=== PATIENT | female | born 1970 | race Caucasian/White ===

== ENCOUNTER 2017-01-01 07:35 | Emergency (ER) | payer OTHER ==
[2017-01-01 07:46] VITALS: BMI 28.3
[2017-01-01] MEDS ORDERED: FOLIC ACID INJECTION - 1 MG, THIAMINE HCL 100 MG, MULTIVIT INJECTION ADULT 10 ML in SOD... IVPB ONE (08:15)
[2017-01-01] MEDS ORDERED: ONDANSETRON 4 MG/2 ML VIAL IVPUSH ONE ×2 (08:15→12:40)
[2017-01-01] MEDS ORDERED: PANTOPRAZOLE SODIUM 40 MG in SODIUM CHLORIDE 100 ML IVPB ONE (08:16)
[2017-01-01] MEDS ORDERED: ONDANSETRON 4 MG/2 ML VIAL ONE ×2 (08:38→12:41)
[2017-01-01] MEDS ORDERED: PANTOPRAZOLE SODIUM 100 ML IVPB ONE (08:38)
[2017-01-01 08:51] LABS: BASOPHIL 0.5 % (0-2.0); EOSINOPHIL 0.4 % (0-4.5); MCH 32.8 pg (25.7-33.7); MEAN CELL VOLUME 96.6 fl (80-96); MEAN PLT VOLUME 10.1 fl (7.5-11.1); NEUTROPHILS 79.9 % (42.8-82.8); PLATELET COUNT 116 K/MM3 (134-434); RDW 14.7 % (11.6-15.6); WHITE BLOOD COUNT 8.8 K/mm3 (4.0-10.0)
[2017-01-01 09:10] LABS: ALK PHOS 133 U/L (45-117); ANION GAP 15 (8-16); BILIRUBIN,TOTAL 0.3 mg/dL (0.2-1.0); CALCIUM 8.6 mg/dL (8.5-10.1); CO2 22 mmol/L (21-32); CREATININE 0.6 mg/dL (0.55-1.02); GLUCOSE,RANDOM 172 mg/dL (74-106); MAGNESIUM 1.6 mg/dL (1.8-2.4); SGOT/AST 77 U/L (15-37); SGPT/ALT 49 U/L (12-78); TOT PROT 7.7 g/dl (6.4-8.2)
[2017-01-01] MEDS ORDERED: METHADONE HCL 10 MG TABLET PO ONE (09:52)
[2017-01-01] MEDS ORDERED: MAGNESIUM SULF 50% (8.12 MEQ/2 ML-1 GM VIAL) IVPB ONE (09:54)
[2017-01-01] MEDS ORDERED: KCL 10 MEQ IVPB 100 ML IVPB SCH (10:00)
[2017-01-01] MEDS ORDERED: METHADONE HCL 10 MG TABLET ONE (10:21)
[2017-01-01] MEDS ORDERED: METHADONE HCL 40 MG DISPERSABLE TABLET ONE (10:22)
[2017-01-01] MEDS ORDERED: KCL 10 MEQ IVPB 100 ML IVPB ONE (10:22)
[2017-01-01] MEDS ORDERED: MAGNESIUM SULF 50% (8.12 MEQ/2 ML-1 GM VIAL) ONE (10:22)
[2017-01-01 11:06] LABS: URINE APPEARANCE CLEAR; URINE BILIRUBIN NEGATIVE (NEGATIVE); URINE BLOOD NEGATIVE (NEGATIVE); URINE COLOR COLORLESS; URINE GLUCOSE (UA) 2+ (NEGATIVE); URINE KETONE NEGATIVE (NEGATIVE); URINE LEUK ESTERASE NEGATIVE (NEGATIVE); URINE NITRITE NEGATIVE (NEGATIVE); URINE PROTEIN NEGATIVE (NEGATIVE); URINE UROBILINOGEN NEGATIVE E.U./dl (0.2-1.0)
--- NOTE | 2017-01-01 11:13 | PDOC ---
History of Present Illness - General Chief Complaint: Nausea/Vomiting Stated Complaint: VOMITING Time Seen by Provider: 01/01/17 07:46 History Source: Patient Exam Limitations: No Limitations - History of Present Illness Travel History: No Initial Comments: 01/01/17 08:28 46-year-old female with history of IVDA, chronic alcohol use, hepatitis C, bipolar, and anemia presents with nausea and vomiting associated with epigastric burning since 10 PM last night. Patient states was drinking last evening at around 5 PM followed by the symptoms 5 hours after. Patient denies chest pain, shortness of breath, fever, diarrhea, dysuria, or headache. Patient states history of alcoholic gastritis but does not take any medication for the above. Patient states is currently on methadone secondary to IVDA which she has not taken today requesting pain meds and her methadone upon arrival. Past History - Past Medical History Allergies/Adverse Reactions: Allergies Allergy/AdvReac Type Severity Reaction Status Date / Time prochlorperazine maleate Allergy Severe DYSTONIA Verified 01/01/17 07:49 [From Compazine] metoclopramide HCl Allergy Verified 01/01/17 07:49 [From Reglan] prochlorperazine edisylate Allergy Verified 01/01/17 07:49 [From Compazine] Home Medications: Ambulatory Orders Emtricitabine/Tenofovir [Truvada -] 0 mg PO DAILY 09/13/16 Methadone [Dolophine -] 60 mg PO DAILY 09/13/16 Pantoprazole Sodium [Protonix] 40 mg PO DAILY #30 tablet. 09/14/16 Gabapentin [Neurontin] 600 mg PO TID #30 tablet 10/11/16 [place] Carbonate [Eskalith -] 0 mg PO DAILY #30 capsule 10/11/16 Quetiapine Fumarate [Seroquel -] 50 mg PO AM #30 tablet 10/11/16 Quetiapine Fumarate [Seroquel] 200 tab PO HS #30 tablet 10/11/16 Sertraline HCl [Zoloft] 100 mg PO HS #30 tablet 10/11/16 Ondansetron HCl [Zofran] 4 mg PO TID PRN #12 tablet 01/01/17 Pantoprazole Sodium [Protonix] 40 mg PO DAILY #30 tablet. 01/01/17 Anemia: Yes (H/O) Asthma: No Cardiac Disorders: No CVA: No COPD: No CHF: No Dementia: No Diabetes: No GI Disorders: No Disorders: No HTN: No Hypercholesterolemia: No Kidney Stones: No Liver Disease: Yes (HEP C) Psychiatric Problems: Yes (BIPOLAR) Suicide Attempt (Hx): No (DENIES) Seizures: No Thyroid Disease: No - Surgical History Abdominal Surgery: No Appendectomy: No Cardiac Surgery: No Cholecystectomy: No Lung Surgery: No Neurologic Surgery: No Orthopedic Surgery: No - Reproductive History (#): 13 Para: 11 PID: No - Psycho/Social/Smoking Cessation Hx Anxiety: No Suicidal Ideation: No Smoking History: Current every day smoker Have you smoked in the past 12 months: Yes Number of Cigarettes Smoked Daily: 3 Information on smoking cessation initiated: No 'Breaking Loose' booklet given: 12/29/15 Hx Alcohol Use: Yes Drug/Substance Use Hx: No (past) Substance Use Type: Alcohol, Heroin, Marijuana Hx Substance Use Treatment: Yes Patient Lives Alone: No Lives with/in: spouse/SO Abd/GI Specific PMHX - Complaint Specific PMHX Hepatitis: Yes (hepatitis c) Pancreatitis: Yes (03/2009) Review of Systems - Review of Systems Able to Perform ROS?: Yes Constitutional: Yes: Loss of Appetite HEENTM: No: Symptoms Reported Respiratory: No: Symptoms reported Cardiac (ROS): No: Symptoms Reported ABD/GI: Yes: Nausea, Poor Appetite, Poor Fluid Intake, Vomiting, Indigestion : No: Symptoms Reported Musculoskeletal: No: Symptoms Reported Integumentary: No: Symptoms Reported Neurological: No: Symptoms reported Endocrine: No: Symptoms Reported Hematologic/Lymphatic: No: Symptoms Reported *Physical Exam - Vital Signs Last Vital Signs Temp Pulse Resp BP Pulse Ox 98.7 F 98 H 22 150/99 100 01/01/17 07:43 01/01/17 07:43 01/01/17 07:43 01/01/17 09:40 01/01/17 07:43 - Physical Exam General Appearance: Yes: Appropriately Dressed, Intoxicated (mild). No: Apparent Distress HEENT: positive: EOMI, PARTH, TMs Normal, Pharynx Normal. negative: Pale Conjunctivae Neck: positive: Supple Respiratory/Chest: positive: Lungs Clear, Normal Breath Sounds. negative: Respiratory Distress, Accessory Muscle Use Cardiovascular: positive: Regular Rhythm, Regular Rate. negative: Murmur Gastrointestinal/Abdominal: positive: Soft, Tenderness (positive epigastric tenderness, no right upper quadrant tenderness) Musculoskeletal: negative: CVA Tenderness Extremity: positive: Normal Capillary Refill. negative: Pedal Edema Integumentary: positive: Normal Color, Dry, Warm Neurologic: positive: Motor Strength 5/5 (Ambulatory) ED Treatment Course - LABORATORY CBC & Chemistry Diagram: 01/01/17 08:33 01/01/17 08:33 - ADDITIONAL ORDERS Additional order review: Laboratory Results 01/01/17 01/01/17 08:33 08:33 Sodium 143 Potassium 3.3 L Chloride 106 Carbon Dioxide 22 Anion Gap 15 BUN 10 D Creatinine 0.6 Creat Clearance w eGFR > 60 Random Glucose 172 H D Calcium 8.6 Magnesium 1.6 L Total Bilirubin 0.3 AST 77 H D ALT 49 D Alkaline Phosphatase 133 H D Total Protein 7.7 Albumin 4.0 Serum , Qual Negative 01/01/17 08:33 RBC 4.05 MCV 96.6 H MCHC 34.0 RDW 14.7 MPV 10.1 Neutrophils % 79.9 D Lymphocytes % 15.2 D Monocytes % 4.0 Eosinophils % 0.4 Basophils % 0.5 - Medications Given in the ED: ED Medications Discontinued Medications Generic Name Dose Route Start Last Admin Trade Name Freq PRN Reason Stop Dose Admin Pantoprazole Sodium 40 mg/ 100 mls @ 200 mls/hr 01/01/17 08:16 01/01/17 08:40 Sodium Chloride IVPB 01/01/17 08:45 200 mls/hr ONCE ONE Administration Methadone HCl 60 mg 01/01/17 09:52 01/01/17 10:38 Dolophine - PO 01/01/17 09:53 Not Given ONCE ONE Ondansetron HCl 4 mg 01/01/17 08:15 01/01/17 08:43 Zofran Injection IVPUSH 01/01/17 08:16 4 mg ONCE ONE Administration Medical Decision Making - Medical Decision Making 01/01/17 08:38 Patient with long-standing history of alcohol and drug use currently on methadone presents with vomiting after drinking for 5 hours and epigastric pain. Patient on exam had epigastric tenderness on right upper quadrant tenderness. Patient appears dry and mildly intoxicated. Patient ordered for labs including magnesium, banana bag, Zofran and Protonix. 01/01/17 10:30 Laboratory Tests 01/01/17 01/01/17 01/01/17 08:33 08:33 08:33 WBC 8.8 D Hgb 13.3 D Hct 39.1 MCV 96.6 H Plt Count 116 L Neutrophils % 79.9 D Sodium 143 Potassium 3.3 L Chloride 106 Carbon Dioxide 22 Anion Gap 15 BUN 10 D Random Glucose 172 H D Calcium 8.6 Magnesium 1.6 L Total Bilirubin 0.3 AST 77 H D ALT 49 D Alkaline Phosphatase 133 H D Serum , Qual Negative Urine Glucose (UA) 2+ H Urine Ketones Negative Urine Nitrite Negative Ur Leukocyte Esterase Negative Patient ordered for 2 g of magnesium and 10 mg of KCl via IV. Patient requesting Dilaudid and her methadone. I have ordered her methadone but will not prescribe an opiate 01/01/17 12:41 Patient will be discharged home with Protonix and Zofran. Patient complaining mild nausea presently will give another Zofran IV and repeat vitals. *DC/Admit/Observation/Transfer Diagnosis at time of Disposition: Alcohol dependence with uncomplicated withdrawal Gastritis Qualifiers: Gastritis type: alcoholic Chronicity: acute Gastritis bleeding: without bleeding Qualified Code(s): K29.20 - Alcoholic gastritis without bleeding - Discharge Dispostion Disposition: HOME Condition at time of disposition: Good - Prescriptions Prescriptions: Pantoprazole Sodium [Protonix] 40 mg PO DAILY #30 tablet. Ondansetron HCl [Zofran] 4 mg PO TID PRN #12 tablet PRN Reason: Nausea And/Or Vomiting - Patient Instructions Printed Discharge Instructions: DI for Nausea -- Adult, DI for Vomiting -- Adult, DI for Alcohol Abuse, DI for Gastritis Additional Instructions: Please avoid alcohol use and take Zofran as needed for nausea. May also take Protonix as prescribed. Eat well-balanced meals throughout the day
[2017-01-01 15:08] VITALS: BP 137/90; PULSE 79; TEMP 98
[2017-01-02 16:17] LABS: TROPONIN I < 0.02 ng/ml (0.00-0.05)
== END 2017-01-01 15:10 | disposition home or self-care (01) ==
LOC: JER 07:35
PROC: 3E033GC Introduction of Other Therapeutic Substance into Peripheral Vein, Percutaneous Approach (ICD-10-PCS; principal; 2017-01-01)
PROC: 3E0337Z Introduction of Electrolytic and Water Balance Substance into Peripheral Vein, Percutaneous Approach (ICD-10-PCS; 2017-01-01)
PROC: 3E033GC Introduction of Other Therapeutic Substance into Peripheral Vein, Percutaneous Approach (ICD-10-PCS; 2017-01-01)
PROC: 3E033GC Introduction of Other Therapeutic Substance into Peripheral Vein, Percutaneous Approach (ICD-10-PCS; 2017-01-01)
DX: K29.20 Alcoholic gastritis without bleeding (principal); F10.230 Alcohol dependence with withdrawal, uncomplicated; B18.2 Chronic viral hepatitis C; F32.9 Major depressive disorder, single episode, unspecified; D64.9 Anemia, unspecified
CPT/HCPCS: 36415; 80053; 81003; 83735; 84484; 84703; 85025; 96365; 96366; 96367; 96374; 96375; 99283-25

== ENCOUNTER 2017-01-02 02:32 | Inpatient (IN) | payer OTHER ==
[2017-01-02 02:49] VITALS: BMI 24.5
--- NOTE | 2017-01-02 04:16 | PDOC ---
History of Present Illness - General Chief Complaint: Pain Stated Complaint: ABDOMINAL PAIN Time Seen by Provider: 01/02/17 02:34 History Source: Patient Exam Limitations: No Limitations - History of Present Illness Travel History: No Quality: reports: other (x1d) Abdominal Pain Onset Location: reports: epigastric Pain Radiation: reports: no radiation Past History - Travel Traveled outside of the country in the last 30 days: No Close contact w/someone who was outside of country & ill: No - Past Medical History Allergies/Adverse Reactions: Allergies Allergy/AdvReac Type Severity Reaction Status Date / Time prochlorperazine maleate Allergy Severe DYSTONIA Verified 01/01/17 07:49 [From Compazine] metoclopramide HCl Allergy Verified 01/01/17 07:49 [From Reglan] prochlorperazine edisylate Allergy Verified 01/01/17 07:49 [From Compazine] Home Medications: Ambulatory Orders Emtricitabine/Tenofovir [Truvada -] 0 mg PO DAILY 09/13/16 Methadone [Dolophine -] 60 mg PO DAILY 09/13/16 Gabapentin [Neurontin] 600 mg PO TID #30 tablet 10/11/16 [place] Carbonate [Eskalith -] 0 mg PO DAILY #30 capsule 10/11/16 Ondansetron HCl [Zofran] 4 mg PO TID PRN #12 tablet 01/01/17 Pantoprazole Sodium [Protonix] 40 mg PO DAILY #30 tablet.dr 01/01/17 Acetaminophen [Tylenol .Regular Strength -] 650 mg PO Q6H PRN #0 tablet Clopidogrel Bisulfate [Plavix -] 75 mg PO DAILY tablet 01/07/17 Pantoprazole Sodium [Protonix -] 40 mg PO BID 01/07/17 Anemia: Yes (H/O) Asthma: No Cardiac Disorders: No CVA: No COPD: No CHF: No Dementia: No Diabetes: No GI Disorders: No Disorders: No HTN: No Hypercholesterolemia: No Kidney Stones: No Liver Disease: Yes (HEP C) Psychiatric Problems: Yes (BIPOLAR) Suicide Attempt (Hx): No (DENIES) Seizures: No Thyroid Disease: No - Surgical History Abdominal Surgery: No Appendectomy: No Cardiac Surgery: No Cholecystectomy: No Lung Surgery: No Neurologic Surgery: No Orthopedic Surgery: No - Reproductive History (#): 13 Para: 11 PID: No - Psycho/Social/Smoking Cessation Hx Anxiety: No Suicidal Ideation: No Smoking History: Current every day smoker Have you smoked in the past 12 months: Yes Number of Cigarettes Smoked Daily: 3 Information on smoking cessation initiated: No 'Breaking Loose' booklet given: 12/29/15 Hx Alcohol Use: Yes Drug/Substance Use Hx: Yes Substance Use Type: Alcohol, Heroin, Opiates Hx Substance Use Treatment: Yes Abd/GI Specific PMHX - Complaint Specific PMHX Hepatitis: Yes (hepatitis c) Pancreatitis: Yes (03/2009) Review of Systems - Review of Systems Able to Perform ROS?: Yes Comments:: 01/02/17 04:24 CONSTITUTIONAL: Absent: fever, chills, diaphoresis, generalized weakness, malaise, loss of appetite HEENT: Absent: rhinorrhea, nasal congestion, throat pain, throat swelling, difficulty swallowing, mouth swelling, ear pain, eye pain, visual Changes CARDIOVASCULAR: Absent: chest pain, loss of consciousness, palpitations, irregular heart rate, peripheral edema RESPIRATORY: Absent: cough, shortness of breath, dyspnea with exertion, orthopnea, wheezing, stridor, hemoptysis GASTROINTESTINAL: epigastric pain, n/vx2 non bilious and non bloody Absent: abdominal distension, diarrhea, constipation, melena, hematochezia GENITOURINARY: Absent: dysuria, frequency, urgency, hesitancy, hematuria, flank pain, genital pain MUSCULOSKELETAL: Absent: myalgia, arthralgia, joint swelling SKIN: Absent: rash, itching, pallor HEMATOLOGIC/IMMUNOLOGIC: Absent: easy bleeding, easy bruising, lymphadenopathy, frequent infections ENDOCRINE: Absent: unexplained weight gain, unexplained weight loss, heat intolerance, cold intolerance NEUROLOGIC: Absent: headache, focal weakness or paresthesias, dizziness, unsteady gait, seizure, mental status changes, bladder or bowel incontinence PSYCHIATRIC: Absent: anxiety, depression, suicidal or homicidal ideation, hallucinations. Is the patient limited Vincentian proficient: No *Physical Exam - Vital Signs Last Vital Signs Temp Pulse Resp BP Pulse Ox 120 H 18 130/101 98 01/02/17 02:39 01/02/17 02:39 01/02/17 02:39 01/02/17 02:39 - Physical Exam Comments: 01/02/17 04:25 GENERAL: Well developed, well nourished. Awake and alert. No acute distress. HEENT: Normocephalic, atraumatic. PERRLA, EOMI. No conjunctival pallor. Sclera are non- icteric. Moist mucous membranes. Oropharynx is clear. NECK: Supple. Full ROM. No JVD. Carotid pulses 2+ and symmetric, without bruits. No thyromegaly. No lymphadenopathy. CARDIOVASCULAR: Regular rate and rhythm. No murmurs, rubs, or gallops. Distal pulses are 2+ and symmetric. PULMONARY: No evidence of respiratory distress. Lungs clear to auscultation bilaterally. No wheezing, rales or rhonchi. ABDOMINAL: Soft. Non-tender. Non-distended. No rebound or guarding. No organomegaly. Normoactive bowel sounds. MUSCULOSKELETAL Normal range of motion at all joints. No bony deformities or tenderness. No CVA tenderness. EXTREMITIES: No cyanosis. No clubbing. No edema. No calf tenderness. SKIN: Warm and dry. Normal capillary refill. No rashes. No jaundice. NEUROLOGICAL: Alert, awake, appropriate. Cranial nerves 2-12 intact. No deficits to light touch and temperature in face, upper extremities and lower extremities. No motor deficits in the in face, upper extremities and lower extremities. Normoreflexic in the upper and lower extremities. Normal speech. Toes are down- going bilaterally. Gait is normal without ataxia. PSYCHIATRIC: Cooperative. Good eye contact. Appropriate mood and affect. ED Treatment Course - LABORATORY CBC & Chemistry Diagram: 01/06/17 08:45 01/06/17 08:45 Progress Note - Progress Note Progress Note: 46-year-old female w/pmhx hypertension, depression, bipolar, hepatitis C, IVDA, alcohol abuse and anemia presents to the emergency department complaining of epigastric abdominal discomfort 1 day. Patient states 2 days ago, she was drinking a pint of alcohol (E&J) on empty stomach. Patient states she was seen in the emergency department yesterday for nausea and vomiting/epigastric discomfort. Patient states her epigastric discomfort has minimize along with the nausea and vomiting for the past 6 hours. Patient denies headache, lightheadedness, dizziness, chest pain, shortness of breath, urinary symptoms: Frequency/urgency/hesitancy, hematuria, flank pains or extremity numbness or tingling sensation. Patient admits to using IVDA drugs times one year ago and is currently on methadone which she hasn't taken for the past 4 days. Patient states dilaudid is his only cure for her epigastric pain/nausea and vomiting. Patient refuses any images but insists on getting dilaudid. And then I explained to the patient that I am not comfortable giving her any narcotics due to her history but can give her her methadone treatment now because she was not given her methadone yesterday. *DC/Admit/Observation/Transfer Diagnosis at time of Disposition: Abdominal pain, epigastric, Alcohol abuse, continuous Nausea and vomiting Qualifiers: Vomiting type: unspecified Vomiting Intractability: unspecified Qualified Code( s): R11.2 - Nausea with vomiting, unspecified - Discharge Dispostion Disposition: HOME Condition at time of disposition: Stable
[2017-01-02] MEDS ORDERED: ONDANSETRON *ODT* 4 MG TABLET SL ONE (04:30)
[2017-01-02] MEDS ORDERED: ONDANSETRON *ODT* 4 MG TABLET ONE (04:33)
[2017-01-02 04:34] LABS: BASOPHIL 0.1 % (0-2.0); MCH 32.9 pg (25.7-33.7); MCHC 34.8 g/dl (32.0-36.0); MEAN CELL VOLUME 94.7 fl (80-96); MEAN PLT VOLUME 10.1 fl (7.5-11.1); NEUTROPHILS 89.5 % (42.8-82.8); PLATELET COUNT 157 K/MM3 (134-434); RDW 14.6 % (11.6-15.6); WHITE BLOOD COUNT 19.3 K/mm3 (4.0-10.0)
[2017-01-02 05:03] LABS: ANION GAP 15 (8-16); CALCIUM 8.8 mg/dL (8.5-10.1); CO2 23 mmol/L (21-32); CREATININE 0.7 mg/dL (0.55-1.02); GLUCOSE,RANDOM 153 mg/dL (74-106); MAGNESIUM 1.6 mg/dL (1.8-2.4); TOT PROT 8.2 g/dl (6.4-8.2)
[2017-01-02 05:04] LABS: ALBUMIN 4.1 g/dl (3.4-5.0); ALK PHOS 136 U/L (45-117); SGOT/AST 50 U/L (15-37); SGPT/ALT 44 U/L (12-78)
[2017-01-02] MEDS ORDERED: POTASSIUM CHLORIDE 40 MEQ/30 ML UNIT DOSE CUP PO ONE (05:16)
[2017-01-02] MEDS ORDERED: MAGNESIUM SULF 50% (8.12 MEQ/2 ML-1 GM VIAL) IVPB ONE (05:19)
[2017-01-02] MEDS ORDERED: HYDROmorphone HCL CARPU-JECT 2 MG/1 ML DISP.SYRIN IVPUSH ONE (05:19)
[2017-01-02] MEDS ORDERED: SODIUM CHLORIDE 0.9% 500 ML INFUS.BAG IV ONE (05:21)
[2017-01-02] MEDS ORDERED: POTASSIUM CHLORIDE TABS 20 MEQ TABLET.ER (FP) PO ONE (05:21)
[2017-01-02] MEDS ORDERED: HYDROmorphone HCL CARPU-JECT 2 MG/1 ML DISP.SYRIN ONE (05:21)
[2017-01-02] MEDS ORDERED: MAGNESIUM SULF 50% (8.12 MEQ/2 ML-1 GM VIAL) ONE (05:21)
[2017-01-02 05:45] LABS: URINE APPEARANCE CLOUDY; URINE BLOOD NEGATIVE (NEGATIVE); URINE COLOR AMBER; URINE GLUCOSE (UA) 1+ (NEGATIVE); URINE KETONE TRACE (NEGATIVE); URINE LEUK ESTERASE NEGATIVE (NEGATIVE); URINE NITRITE NEGATIVE (NEGATIVE); URINE UROBILINOGEN 2.0 E.U/dl E.U./dl (0.2-1.0)
[2017-01-02 05:50] LABS: URINE PROTEIN 3+ (NEGATIVE)
[2017-01-02] MEDS ORDERED: ONDANSETRON 4 MG/2 ML VIAL ONE (05:50)
[2017-01-02] MEDS ORDERED: ONDANSETRON 4 MG/2 ML VIAL IVPUSH ONE ×3 (05:56→08:52)
[2017-01-02 06:01] LABS: URINE BACTERIA RARE /hpf (NONE SEEN); URINE HYALINE CAST 15 /lpf; URINE MUCUS MANY; URINE RBC 1 /hpf (0-3); URINE WBC 8 /hpf (3-5)
[2017-01-02] MEDS ORDERED: ACETAMINOPHEN 325 MG TABLET (FP) ONE (06:14)
[2017-01-02] MEDS ORDERED: ACETAMINOPHEN INJECTION 100 ML IVPB ONE (06:21)
[2017-01-02] MEDS ORDERED: ACETAMINOPHEN 1000 MG/100 ML VIAL (NON FORMULARY) IVPB ONE (06:30)
--- NOTE | 2017-01-02 07:22 | PDOC ---
*Physical Exam - Vital Signs Last Vital Signs Temp Pulse Resp BP Pulse Ox 99.6 F 136 H 18 146/100 100 01/02/17 06:26 01/02/17 06:26 01/02/17 06:26 01/02/17 06:26 01/02/17 06:27 ED Treatment Course - LABORATORY CBC & Chemistry Diagram: 01/02/17 09:45 01/02/17 09:45 - ADDITIONAL ORDERS Additional order review: Laboratory Results 01/02/17 01/02/17 01/02/17 06:15 05:20 04:20 Sodium 137 Potassium 3.3 L Chloride 99 Carbon Dioxide 23 Anion Gap 15 BUN 13 D Creatinine 0.7 Creat Clearance w eGFR > 60 Random Glucose 153 H Lactic Acid 2.229 H* Calcium 8.8 Magnesium 1.6 L Total Bilirubin 1.0 D AST 50 H D ALT 44 Alkaline Phosphatase 136 H Total Protein 8.2 Albumin 4.1 Urine Color [place] Urine Appearance Cloudy Urine pH 6.0 Ur Specific [place] 1.037 H Urine Protein 3+ H Urine Glucose (UA) 1+ H Urine Ketones Trace H Urine Blood Negative Urine Nitrite Negative Urine Bilirubin 2.0 Urine Urobilinogen 2.0 e.u/dl H Ur Leukocyte Esterase Negative Urine RBC 1 Urine WBC 8 Ur Epithelial Cells Many Urine Bacteria Rare Hyaline Casts 15 Urine Mucus Many Urine HCG, Qual Negative 01/02/17 04:20 RBC 4.21 MCV 94.7 MCHC 34.8 RDW 14.6 MPV 10.1 Neutrophils % 89.5 H Lymphocytes % 5.7 L D Monocytes % 4.7 Eosinophils % 0.0 D Basophils % 0.1 - Medications Given in the ED: ED Medications Discontinued Medications Generic Name Dose Route Start Last Admin Trade Name [place] PRN Reason Stop Dose Admin Acetaminophen 1,000 mg 01/02/17 06:30 01/02/17 06:30 [place] Injection - IVPB 01/02/17 06:31 1,000 mg NOW ONE Administration Hydromorphone HCl 2 mg 01/02/17 05:19 01/02/17 05:34 Dilaudid Injection - IVPUSH 01/02/17 05:20 2 mg ONCE ONE Administration Magnesium Sulfate 2 gm 01/02/17 05:19 01/02/17 05:35 Magnesium Sulfate IVPB 01/02/17 05:20 2 gm ONCE ONE Administration Ondansetron HCl 4 mg 01/02/17 04:30 01/02/17 04:34 Zofran Odt - SL 01/02/17 04:31 4 mg ONCE ONE Administration Ondansetron HCl 4 mg 01/02/17 05:56 01/02/17 05:56 Zofran Injection IVPUSH 01/02/17 05:57 4 mg NOW ONE Administration Ondansetron HCl 4 mg 01/02/17 06:00 01/02/17 06:00 Zofran Injection IVPUSH 01/02/17 06:01 4 mg NOW ONE Administration Potassium Chloride 40 meq 01/02/17 05:16 01/02/17 05:35 Kcl Oral Solution - PO 01/02/17 05:17 40 meq ONCE ONE Administration Sodium Chloride 1,000 ml 01/02/17 05:21 01/02/17 05:35 Normal Saline - IV 01/02/17 05:22 1,000 ml ONCE ONE Administration Medical Decision Making - Medical Decision Making 01/02/17 Patient signed out to me for vomiting, elevated white count, pending CT and labs , hydration and reassessment. Patient is on methadone, history of IVDA, hepatitis C and drank alcohol 2 days ago and was here for vomiting, went home and return for continued vomiting gastric pain. Patient's pain is decreasing, repeat labs were sent, lactic was 2.2, patient has received 2 L of fluid, continues to be tachycardic at 125, also Magnesium area QTC was 570 on original EKG, repeat EKG QTC is 554 with a heart rate of 125. He shouldn't was given Librium, patient was complaining of nausea, no more Zofran will be given. Patient was also given her methadone 60 mg which is her regular dose which was verified on her prior visit. CT shows no acute pathology, patient is still tachycardic, patient will be at least placed on observation. No tremors noted. 01/02/17 10:53 pt ambulatory, non toxic appearance. Labs returned, patient still has leukocytosis, lactic of 2, after 8 hours in er. prolonged qtc, discussed with Dr. Patel for tele observation *DC/Admit/Observation/Transfer Diagnosis at time of Disposition: Abdominal pain, epigastric, Alcohol abuse, continuous Nausea and vomiting Qualifiers: Vomiting type: unspecified Vomiting Intractability: unspecified Qualified Code( s): R11.2 - Nausea with vomiting, unspecified - Discharge Dispostion Condition at time of disposition: Stable Admit: Yes - Referrals - Patient Instructions - Post Discharge Activity
[2017-01-02] MEDS ORDERED: SODIUM CHLORIDE 1,000 ML IV STA ×2 (07:23→10:42)
--- NOTE | 2017-01-02 08:30 | PDOC ---
*Physical Exam - Vital Signs Last Vital Signs Temp Pulse Resp BP Pulse Ox 98.6 F 128 H 18 115/91 98 01/02/17 07:31 01/02/17 07:31 01/02/17 07:31 01/02/17 07:31 01/02/17 07:31 - Physical Exam Comments: 01/02/17 08:27 SIGN IN Sign-out received from outgoing MLP Pt interviewed and examined Ancillary studies reviewed Transfer of care from Dr. Morrison MIDLEVEL NOTE Pt seen by Midlevel Provider under my direct supervision. Pt interviewed and examined. Ancillary studies reviewed. I agree with plan as outlined by Midlevel Provider. - MLP Bass 46-year-old female w/pmhx hypertension, depression, bipolar, hepatitis C, IVDA, alcohol abuse and anemia presents to the emergency department complaining of epigastric abdominal discomfort 1 day. Patient states 2 days ago, she was drinking a pint of alcohol (E&J) on empty stomach. Patient states she was seen in the emergency department yesterday for nausea and vomiting/epigastric discomfort. Laboratory Results - last 24 hr 01/02/17 01/02/17 01/02/17 04:20 04:20 04:20 WBC 19.3 H D RBC 4.21 Hgb 13.9 Hct 39.9 MCV 94.7 MCHC 34.8 RDW 14.6 Plt Count 157 D MPV 10.1 Neutrophils % 89.5 H Lymphocytes % 5.7 L D Monocytes % 4.7 Eosinophils % 0.0 D Basophils % 0.1 Sodium 137 Potassium 3.3 L Chloride 99 Carbon Dioxide 23 Anion Gap 15 BUN 13 D Creatinine 0.7 Creat Clearance w eGFR > 60 Random Glucose 153 H Lactic Acid Calcium 8.8 Magnesium 1.6 L Total Bilirubin 1.0 D AST 50 H D ALT 44 Alkaline Phosphatase 136 H Total Protein 8.2 Albumin 4.1 Lipase 329 Urine Color Urine Appearance Urine pH Ur Specific [place] Urine Protein Urine Glucose (UA) Urine Ketones Urine Blood Urine Nitrite Urine Bilirubin Urine Urobilinogen Ur Leukocyte Esterase Urine RBC Urine WBC Ur Epithelial Cells Urine Bacteria Hyaline Casts Urine Mucus Urine HCG, Qual 01/02/17 01/02/17 05:20 06:15 WBC RBC Hgb Hct MCV MCHC RDW Plt Count MPV Neutrophils % Lymphocytes % Monocytes % Eosinophils % Basophils % Sodium Potassium Chloride Carbon Dioxide Anion Gap BUN Creatinine Creat Clearance w eGFR Random Glucose Lactic Acid 2.229 H* Calcium Magnesium Total Bilirubin AST ALT Alkaline Phosphatase Total Protein Albumin Lipase Urine Color [place] Urine Appearance Cloudy Urine pH 6.0 Ur Specific [place] 1.037 H Urine Protein 3+ H Urine Glucose (UA) 1+ H Urine Ketones Trace H Urine Blood Negative Urine Nitrite Negative Urine Bilirubin 2.0 Urine Urobilinogen 2.0 e.u/dl H Ur Leukocyte Esterase Negative Urine RBC 1 Urine WBC 8 Ur Epithelial Cells Many Urine Bacteria Rare Hyaline Casts 15 Urine Mucus Many Urine HCG, Qual Negative White count elevated with left shift, lactic 2.2 Lipase 329 Scan of the abdomen and pelvis Pt had 2L of normal saline-will repeat lactic acid 01/02/17 09:00 EKG with prolonged QT and tachycardia Patient was given potassium and magnesium We'll recheck potassium and magnesium and EKG at this time 01/02/17 09:06 CT scan of the abdomen and pelvis No CT evidence of acute process in the abdomen and pelvis No free air or free fluid Normal-appearing terminal ileum and appendix Ovarian cysts Chest x-ray NAD ED Treatment Course - LABORATORY CBC & Chemistry Diagram: 01/03/17 07:50 01/03/17 07:50 - ADDITIONAL ORDERS Additional order review: Laboratory Results 01/02/17 01/02/17 01/02/17 06:15 05:20 04:20 Sodium Potassium Chloride Carbon Dioxide Anion Gap BUN Creatinine Creat Clearance w eGFR Random Glucose Lactic Acid 2.229 H* Calcium Magnesium Total Bilirubin AST ALT Alkaline Phosphatase Total Protein Albumin Lipase 329 Urine Color [place] Urine Appearance Cloudy Urine pH 6.0 Ur Specific [place] 1.037 H Urine Protein 3+ H Urine Glucose (UA) 1+ H Urine Ketones Trace H Urine Blood Negative Urine Nitrite Negative Urine Bilirubin 2.0 Urine Urobilinogen 2.0 e.u/dl H Ur Leukocyte Esterase Negative Urine RBC 1 Urine WBC 8 Ur Epithelial Cells Many Urine Bacteria Rare Hyaline Casts 15 Urine Mucus Many Urine HCG, Qual Negative 01/02/17 04:20 Sodium 137 Potassium 3.3 L Chloride 99 Carbon Dioxide 23 Anion Gap 15 BUN 13 D Creatinine 0.7 Creat Clearance w eGFR > 60 Random Glucose 153 H Lactic Acid Calcium 8.8 Magnesium 1.6 L Total Bilirubin 1.0 D AST 50 H D ALT 44 Alkaline Phosphatase 136 H Total Protein 8.2 Albumin 4.1 Lipase Urine Color Urine Appearance Urine pH Ur Specific [place] Urine Protein Urine Glucose (UA) Urine Ketones Urine Blood Urine Nitrite Urine Bilirubin Urine Urobilinogen Ur Leukocyte Esterase Urine RBC Urine WBC Ur Epithelial Cells Urine Bacteria Hyaline Casts Urine Mucus Urine HCG, Qual 01/02/17 04:20 RBC 4.21 MCV 94.7 MCHC 34.8 RDW 14.6 MPV 10.1 Neutrophils % 89.5 H Lymphocytes % 5.7 L D Monocytes % 4.7 Eosinophils % 0.0 D Basophils % 0.1 - Medications Given in the ED: ED Medications Discontinued Medications Generic Name Dose Route Start Last Admin Trade Name [place] PRN Reason Stop Dose Admin Acetaminophen 1,000 mg 01/02/17 06:30 01/02/17 06:30 Ofirmev Injection - IVPB 01/02/17 06:31 1,000 mg NOW ONE Administration Hydromorphone HCl 2 mg 01/02/17 05:19 01/02/17 05:34 Dilaudid Injection - IVPUSH 01/02/17 05:20 2 mg ONCE ONE Administration Sodium Chloride 1,000 mls @ 1,000 mls/hr 01/02/17 07:23 01/02/17 08:26 Normal Saline - IV 01/02/17 08:22 1,000 mls/hr ASDIR STA Administration Magnesium Sulfate 2 gm 01/02/17 05:19 01/02/17 05:35 Magnesium Sulfate IVPB 01/02/17 05:20 2 gm ONCE ONE Administration Ondansetron HCl 4 mg 01/02/17 04:30 01/02/17 04:34 Zofran Odt - SL 01/02/17 04:31 4 mg ONCE ONE Administration Ondansetron HCl 4 mg 01/02/17 05:56 01/02/17 05:56 Zofran Injection IVPUSH 01/02/17 05:57 4 mg NOW ONE Administration Ondansetron HCl 4 mg 01/02/17 06:00 01/02/17 06:00 Zofran Injection IVPUSH 01/02/17 06:01 4 mg NOW ONE Administration Potassium Chloride 40 meq 01/02/17 05:16 01/02/17 05:35 Kcl Oral Solution - PO 01/02/17 05:17 40 meq ONCE ONE Administration Sodium Chloride 1,000 ml 01/02/17 05:21 01/02/17 05:35 Normal Saline - IV 01/02/17 05:22 1,000 ml ONCE ONE Administration *DC/Admit/Observation/Transfer Diagnosis at time of Disposition: Abdominal pain, epigastric, Alcohol abuse, continuous Nausea and vomiting Qualifiers: Vomiting type: unspecified Vomiting Intractability: unspecified Qualified Code( s): R11.2 - Nausea with vomiting, unspecified - Discharge Dispostion Condition at time of disposition: Stable Admit: Yes - Referrals - Patient Instructions - Post Discharge Activity
[2017-01-02] MEDS ORDERED: chlordiazePOXIDE HCL 25 MG CAPSULE PO ONE (08:51)
[2017-01-02] MEDS ORDERED: METHADONE HCL 10 MG TABLET PO ONE (08:51)
[2017-01-02] MEDS ORDERED: chlordiazePOXIDE HCL 25 MG CAPSULE ONE (09:04)
[2017-01-02] MEDS ORDERED: METHADONE HCL 10 MG TABLET ONE (09:05)
[2017-01-02] MEDS ORDERED: METHADONE HCL 40 MG DISPERSABLE TABLET ONE (09:05)
[2017-01-02 09:54] LABS: BASOPHIL 0.3 % (0-2.0); MCH 32.1 pg (25.7-33.7); MCHC 33.4 g/dl (32.0-36.0); MEAN CELL VOLUME 96.2 fl (80-96); NEUTROPHILS 88.3 % (42.8-82.8); PLATELET COUNT 115 K/MM3 (134-434); RDW 14.7 % (11.6-15.6); WHITE BLOOD COUNT 17.9 K/mm3 (4.0-10.0)
[2017-01-02 10:08] LABS: CALCIUM 7.8 mg/dL (8.5-10.1); CREATININE 0.7 mg/dL (0.55-1.02)
--- NOTE | 2017-01-02 10:50 | PN ---
Teaching Attending Note Name of Resident: Curly Raphael ATTENDING PHYSICIAN STATEMENT I saw and evaluated the patient. I reviewed the resident's note and discussed the case with the resident. I agree with the resident's findings and plan as documented. Patient seen and examined at bedside. Chart, data, imaging were reviewed. SUBJECTIVE 46 yr old woman with ETOH abuse, methadone maintenance, bipolar d/o, presents with epigastric pain and nausea, vomiting for 2 days, reports to be drinking about 2 pints of liquor a day for last month. Epigastric pain does not radiate anywhere and no clear exacerbating factors. OBJECTIVE: AFebrile, tachycardia, disheveled General -AAx3, NAD, cooperative Neck- supple CV -s1+s2+ RRR CHest - CTA b/l Abdomen - soft NT , BS+ Skin- no lesions or rashes noted trop - 1.6, lactate 2 EKG -QTC - prolonged at 570, repeat 540 CXR -clear parenchyma ASSESSMENT AND PLAN: 46yo female with sustance abuse disorder, chronic alcohol abuse on methadone c/ o nausea, vomiting, and epigastric pain with positive troponin of 1.6, no ST-T changes on EKG and prolonged Qtc. Epigastric pain is likely 2/2 to gastritis from alcohol abuse. Cannot r/o NSTEMI. PAncreatitis is r/o with normal lipase. #NSTEMI/gastritis-heart score 4. -admit to telemetry -ASA 324 mg stat and then 81mg PO daily -clopidogrel 300mg PO stat and then 75mg daily -Enoxaparin 1mg/kg q12hrs -serial EKGs -trend troponin -transthoracic echo -cardiology consult -protonix empirically for gastritis #Prolonged ETC- may be 2/2 to methadone use. Calcium and magnesium are wnl -hold methadone and other medications that may prolong Qtc -observe on telemtry -cardiology evaluation #Impending alcohol withdrawal - last drink was about 48hr ago -Lorazepam 2mg PO q6hrs standing -2 mg IV PRN with signs of withdrawal -IVF with thiamine, folate, and multivitmain Diet- normal diet DVT risk - low risk -on enoxaparin therapeutic dose
--- NOTE | 2017-01-02 12:20 | HP ---
CHIEF COMPLAINT: abdominal pain, vomiting PCP: Methadone maintanence: [facility] in [place] [phone] HISTORY OF PRESENT ILLNESS: 46 yr old woman with polysubstance abuse, Hep C, bipolar d/o, anemia, presents with abdominal pain and vomiting since last night. Abdominal pain is in the upper abdomen 8/10 intensity, characterized as discomfort, band like, radiates to sides and back. Numerous episodes of vomiting, too many to count, yellow, liquidy, small amount each time, no blood. Has been having poor po intake due to vomiting for past 2 days. Also has chest discomfort, lower part of chest, band like distribution, 8/10 intensity, worse with deep inspiration, nonpositional. Also c/o of dizziness when leaning forward for the past day. Last drink tuesday morning, was drinking 1-2 pints/day for two days (E&J, [employer]) continously without adequate food or water. It's been a month since she has taken her seroquel or her lithium because she has been drinking nearly every day. Had not taken her methadone for prior 4 days. Was in the ED last night due to abdominal pain and vomiting. Also c/o 3 days of foul smelling dark urine and foul smelling vaginal discharge that is crusty yellow, does not use barrier protection, 1 male partner. denies hx of STI's. ER course was notable for: (1) Abd/pelvis ct with oral contrast: no acute pathology (2) chest xray: no acute pathology (3) prolonged QTc: 554 Recent Travel: from [facility], in [place] visiting her mother. PAST MEDICAL HISTORY: Hep C Bipolar d/o ETOH/marijuana/heroin abuse methadone maintenance left Distal fibular fracture in 09/2016, cast removed 1 week ago. PAST SURGICAL HISTORY: Tubal ligation x2 Right leg below knee - removal of "skin tumor" at 9yrs old Social History: 11 healthy children, . Smoking: current every day 3cigs/day, 6 yrs. smokes marijuana very other day for past month Alcohol:7 yrs on and off 1-2 pints every other day Drugs: methadone maintenance 60mg po daily, heroin - nasally, has not used in one yr, used for 1 yr prior to quitting. no IVDU. Family History: sister 52, "throat cancer" Father age 56, "throat cancer" Maternal grandmother with breast cancer(unknown age of dx), from [place] Allergies prochlorperazine maleate [From Compazine] Allergy (Severe, Verified 01/01/17 07: 49) DYSTONIA metoclopramide HCl [From Reglan] Allergy (Verified 01/01/17 07:49) - DYSTONIA prochlorperazine edisylate [From Compazine] Allergy (Verified 01/01/17 07:49) HOME MEDICATIONS: Home Medications Medication Instructions Recorded Emtricitabine/Tenofovir [Truvada -] 0 mg PO DAILY 09/13/16 Methadone [Dolophine -] 60 mg PO DAILY 09/13/16 Pantoprazole Sodium [Protonix] 40 mg PO DAILY #30 tablet. 09/14/16 Gabapentin [Neurontin] 600 mg PO TID #30 tablet 10/11/16 [place] Carbonate [Eskalith -] 0 mg PO DAILY #30 capsule 10/11/16 Quetiapine Fumarate [Seroquel -] 50 mg PO AM #30 tablet 10/11/16 Quetiapine Fumarate [Seroquel] 200 tab PO HS #30 tablet 10/11/16 Sertraline HCl [Zoloft] 100 mg PO HS #30 tablet 10/11/16 Ondansetron HCl [Zofran] 4 mg PO TID PRN #12 tablet 01/01/17 Pantoprazole Sodium [Protonix] 40 mg PO DAILY #30 tablet. 01/01/17 REVIEW OF SYSTEMS CONSTITUTIONAL: Absent: fever, chills, diaphoresis, generalized weakness, malaise, loss of appetite, weight change HEENT: Absent: rhinorrhea, nasal congestion, throat pain, throat swelling, difficulty swallowing, mouth swelling, ear pain, eye pain, visual changes CARDIOVASCULAR: Present:chest pain Absent: syncope, palpitations, irregular heart rate, lightheadedness, peripheral edema RESPIRATORY: Absent: cough, shortness of breath, dyspnea with exertion, orthopnea, wheezing, stridor, hemoptysis GASTROINTESTINAL: Present:abdominal pain,vomiting, Absent: abdominal distension, nausea, diarrhea, constipation, melena, hematochezia GENITOURINARY: Absent: dysuria, frequency, urgency, hesitancy, hematuria, flank pain, genital pain MUSCULOSKELETAL: Absent: myalgia, arthralgia, joint swelling, back pain, neck pain SKIN: Absent: rash, itching, pallor HEMATOLOGIC/IMMUNOLOGIC: Absent: easy bleeding, easy bruising, lymphadenopathy, frequent infections ENDOCRINE: Absent: unexplained weight gain, unexplained weight loss, heat intolerance, cold intolerance NEUROLOGIC: Present: dizziness, Absent: headache, focal weakness or paresthesias, unsteady gait, seizure, mental status changes, bladder or bowel incontinence PSYCHIATRIC: Absent: anxiety, depression, suicidal or homicidal ideation, hallucinations. PHYSICAL EXAMINATION Vital Signs - 24 hr 01/02/17 11:45 Pulse Rate 111 H Respiratory 18 Rate Blood Pressure 94/69 O2 Sat by Pulse 98 Oximetry (%) GENERAL: Awake, alert, and fully oriented, in no acute distress. HEAD: Normal with no signs of trauma. EYES: Pupils equal, round and reactive to light, extraocular movements intact, sclera anicteric, conjunctiva clear. No lid lag. EARS, NOSE, THROAT: Ears normal, nares patent, oropharynx clear without exudates. dry mucous membranes. eduntulism NECK: Normal range of motion, supple without lymphadenopathy, JVD, or masses. LUNGS: Breath sounds equal, clear to auscultation bilaterally. No wheezes, and no crackles. No accessory muscle use. HEART: Regular rate and rhythm, normal S1 and S2 without murmur, rub or gallop. ABDOMEN: Soft, mildly tender in epigastrium, not distended, normoactive bowel sounds, no guarding, no rebound, no masses. MUSCULOSKELETAL: Normal range of motion at all joints. No bony deformities or tenderness. No CVA tenderness. UPPER EXTREMITIES: 2+ pulses, warm, well-perfused. No cyanosis. No clubbing. Cap refill <2 seconds. No peripheral edema. LOWER EXTREMITIES: 2+ pulses, warm, well-perfused. No calf tenderness. No peripheral edema. left lower leg with red flat macular patchy rash with healing lesion below knee(from cigarrette burn) - without surrounding erythema/ discharge. ttp in left ankle. NEUROLOGICAL: Cranial nerves II-XII intact. Normal speech. Normal gait. PSYCHIATRIC: Cooperative. Good eye contact. Appropriate mood and affect. VAGINAL: normal appearing genitalia, no external lesions/growths, no discharge. ASSESSMENT/PLAN: 46 yr old woman with ETOH abuse, methadone maintenance, bipolar d/o, presents with epigastric pain and vomiting for 2 days, found to have prolonged QTc. #Elevated troponins/new prolonged QTc- possible Nstemi -PAMELA score 1(cardiac marker +) -heart score 4(mod chet,age,smoker,trop) -trend troponins, ASA 325 po, plavix 300mg po, lovenix 1mg/kg BID -- continue 75mg plavix, 81 mg asa daily - echo and cardiology consult - avoid medications that prolong QT (methadone, librium, lithium, seroquel, zofran) #Lactic acidosis - likely from alcohol use, repeat - IVF NS @100 #Vomiting - likely gastritis secondary to etoh, (lipase low, unlikely to be pancreatitis, CT neg for acute abdominal path) - protonix 40mg IVPB bid (pt cannot tolerate reglan, avoid zofran) - no repeat episodes of vomiting since admission, tolerated liquid diet, will advance tomorrow if she continues to tolerate #ETOH withdrawal - CIWA score 4 - banana bag - IVF #Methadone maintenance - hold for now due to QTc, ativan 1mg po q6h prn for withdrawal sx #c/o vaginal discharge - chlamydia/gono, vaginal culture #Smoking - declined nicotine patch, will provide smoking cessation information at discharge #diet - regular in the morning #dvt: on full dose lovenox Visit type - Emergency Visit Emergency Visit: Yes ED Registration Date: 01/02/17 Care time: The patient presented to the Emergency Department on the above date and was hospitalized for further evaluation of their emergent condition. - New Patient This patient is new to me today: Yes Date on this admission: 01/02/17 - Critical Care Critical Care patient: No
[2017-01-02] MEDS ORDERED: SODIUM CHLORIDE 1,000 ML IV SCH (13:00)
[2017-01-02] MEDS ORDERED: PANTOPRAZOLE SODIUM 100 ML IVPB ONE (14:30)
[2017-01-02 14:43] LABS: TROPONIN I 1.64 ng/ml (0.00-0.05)
[2017-01-02] MEDS ORDERED: LORazepam 1 MG TABLET PO PRN (14:48)
[2017-01-02] MEDS: SODIUM CHLORIDE 1,000 ML IV SCH (15:06)
[2017-01-02] MEDS: ACETAMINOPHEN 325 MG TABLET (FP) PO PRN ×2 (15:06→23:28)
[2017-01-02] MEDS ORDERED: ASPIRIN 325 MG TABLET PO ONE (15:37)
[2017-01-02] MEDS ORDERED: CLOPIDOGREL BISULFATE 75 MG TABLET (FP) PO ONE (15:37)
[2017-01-02] MEDS ORDERED: FOLIC ACID INJECTION - 1 MG, THIAMINE HCL 100 MG, MULTIVIT INJECTION ADULT 10 ML in SOD... IVPB ONE (15:59)
[2017-01-02] MEDS ORDERED: ENOXAPARIN NA (PORCINE) 60 MG/0.6 ML DISP.SYRIN SQ ONE (16:30)
--- NOTE | 2017-01-02 18:15 | EKG ---
Test Reason : Blood Pressure : / mmHG Vent. Rate : 097 BPM Atrial Rate : 097 BPM P-R Int : 140 ms QRS Dur : 090 ms QT Int : 456 ms P-R-T Axes : 066 033 092 degrees QTc Int : 579 ms NORMAL SINUS RHYTHM SEPTAL INFARCT (CITED ON OR BEFORE 08-OCT-2016) T-WAVE INVERSION IN ANTERIOR LEADS NONSPECIFIC T WAVE ABNORMALITY PROLONGED QT ABNORMAL ECG WHEN COMPARED WITH ECG OF 02-JAN-2017 09:13, NO SIGNIFICANT CHANGE WAS FOUND Confirmed by MAYURI MARTÍNEZ MD ([id number]) on 01/02/2017 6:15:31 PM Referred By: Kianna MENDIETA Confirmed By:MAYURI MARTÍNEZ MD
--- NOTE | 2017-01-02 18:21 | EKG ---
Test Reason : Blood Pressure : / mmHG Vent. Rate : 125 BPM Atrial Rate : 125 BPM P-R Int : 126 ms QRS Dur : 088 ms QT Int : 384 ms P-R-T Axes : 070 041 097 degrees QTc Int : 554 ms SINUS TACHYCARDIA SEPTAL INFARCT (CITED ON OR BEFORE 08-OCT-2016) T-WAVE INVERSION IN ANTERIOR LEADS NONSPECIFIC ST AND T WAVE ABNORMALITY PROLONGED QT ABNORMAL ECG WHEN COMPARED WITH ECG OF 02-JAN-2017 06:13, Confirmed by MAYURI MARTÍNEZ MD ([id number]) on 01/02/2017 6:21:28 PM Referred By: Confirmed By:MAYURI MARTÍNEZ MD
--- NOTE | 2017-01-02 18:28 | EKG ---
Test Reason : Blood Pressure : / mmHG Vent. Rate : 135 BPM Atrial Rate : 135 BPM P-R Int : 132 ms QRS Dur : 090 ms QT Int : 380 ms P-R-T Axes : 071 068 093 degrees QTc Int : 570 ms SINUS TACHYCARDIA POSSIBLE LEFT ATRIAL ENLARGEMENT LEFT VENTRICULAR HYPERTROPHY CANNOT RULE OUT SEPTAL INFARCT (CITED ON OR BEFORE 08-OCT-2016) T-WAVE INVERSION IN ANTERIOR LEADS CONSIDER ANTERIOR ISCHEMIA CONSIDER ANTEROLATERAL ISCHEMIA PROLONGED QT ABNORMAL ECG WHEN COMPARED WITH ECG OF 08-OCT-2016 11:05, VENT. RATE HAS INCREASED BY 66 BPM Confirmed by MAYURI MARTÍNEZ MD ([id number]) on 01/02/2017 6:27:57 PM Referred By: Confirmed By:MAYURI MARTÍNEZ MD
--- NOTE | 2017-01-02 19:03 | CON.CARD ---
Consult Consult Specialty:: Cardiology for [place] - History of Present Illness History of Present Illness: 46 yr old woman with polysubstance abuse, Hep C, bipolar d/o, anemia, presents with abdominal pain and vomiting since last night. Abdominal pain is in the upper abdomen 8/10 intensity, characterized as discomfort, band like, radiates to sides and back. Numerous episodes of vomiting, too many to count, yellow liquidy, small amount each time, no blood. Has been having poor po intake due to vomiting for past 2 days. Also has chest discomfort, band like distribution, 8/10 intensity, above epigastrium, worse with deep inspiration, nonpositional. Last drink tuesday morning, was drinking 1-2 pints/day for two days (Sae&J, cece ramos). It's been months since she has taken her seroquel or her lithium because she has been drinking nearly every day. was in the ED last night due to abdominal pain and vomiting. - History Source History Provided By: Patient, Medical Record - Past Medical History Gastrointestinal: Yes: Pancreatitis Hepatobiliary: Yes: Hepatitis C ...LMP: 11/11/14 Infectious Disease: Yes: HIV Psych: Yes: Addictions, Bipolar - Past Surgical History Past Surgical History: Yes: None - Alcohol/Substance Use Hx Alcohol Use: Yes (1 PINT [id number] 12/31) Number of Drinks Daily: 4 (4 pints a day) History of Substance Use: reports: Heroin - Smoking History Smoking history: Current every day smoker Have you smoked in the past 12 months: Yes Aproximately how many cigarettes per day: 3 - Social History ADL: Independent History of Recent Travel: No Home Medications - Allergies Allergies/Adverse Reactions: Allergies Allergy/AdvReac Type Severity Reaction Status Date / Time prochlorperazine maleate Allergy Severe DYSTONIA Verified 01/01/17 07:49 [From Compazine] metoclopramide HCl Allergy Verified 01/01/17 07:49 [From Reglan] prochlorperazine edisylate Allergy Verified 01/01/17 07:49 [From Compazine] - Home Medications Home Medications: Ambulatory Orders Emtricitabine/Tenofovir [Truvada -] 0 mg PO DAILY 09/13/16 Methadone [Dolophine -] 60 mg PO DAILY 09/13/16 Gabapentin [Neurontin] 600 mg PO TID #30 tablet 10/11/16 [place] Carbonate [Eskalith -] 0 mg PO DAILY #30 capsule 10/11/16 Quetiapine Fumarate [Seroquel -] 50 mg PO AM #30 tablet 10/11/16 Quetiapine Fumarate [Seroquel] 200 tab PO HS #30 tablet 10/11/16 Sertraline HCl [Zoloft] 100 mg PO HS #30 tablet 10/11/16 Ondansetron HCl [Zofran] 4 mg PO TID PRN #12 tablet 01/01/17 Pantoprazole Sodium [Protonix] 40 mg PO DAILY #30 tablet. 01/01/17 Family Disease History - Family Disease History Family Disease History: Other: Father ( CVA), Brother ( AIDS), Sister ( THROAT CA) Review of Systems - Review of Systems Constitutional: reports: No Symptoms Eyes: reports: No Symptoms HENT: reports: No Symptoms Neck: reports: No Symptoms Cardiovascular: reports: No Symptoms Gastrointestinal: reports: Abdominal Pain Genitourinary: reports: No Symptoms Breasts: reports: No Symptoms Reported Musculoskeletal: reports: No Symptoms Integumentary: reports: No Symptoms Neurological: reports: No Symptoms Endocrine: reports: No Symptoms Hematology/Lymphatic: reports: No Symptoms Psychiatric: reports: No Symptoms Vital Signs: Vital Signs Temperature 98.2 F 01/02/17 17:00 Pulse Rate 100 H 01/02/17 17:00 Respiratory Rate 20 01/02/17 17:00 Blood Pressure 95/70 01/02/17 17:00 O2 Sat by Pulse Oximetry (%) 98 01/02/17 11:45 Constitutional: Yes: Well Nourished, No Distress, Calm Eyes: Yes: WNL, Conjunctiva Clear, EOM Intact HENT: Yes: WNL, Atraumatic, Normocephalic Neck: Yes: WNL, Supple, Trachea Midline Respiratory: Yes: WNL, Regular, CTA Bilaterally Gastrointestinal: Yes: WNL, Normal Bowel Sounds Renal/: Yes: WNL Cardiovascular: Yes: WNL, Regular Rate and Rhythm Musculoskeletal: Yes: WNL Extremities: Yes: WNL Integumentary: Yes: WNL Neurological: Yes: WNL, Alert, Oriented ...Motor Strength: WNL Psychiatric: Yes: WNL, Alert, Oriented - Other Data Labs, Other Data: Troponin, BNP 01/02/17 16:00 Troponin I 1.28 H* Troponin, BNP 01/02/17 16:00 Troponin I 1.28 H* Laboratory Tests 01/02/17 01/02/17 01/02/17 04:20 04:20 04:20 WBC 19.3 H D RBC 4.21 Hgb 13.9 Hct 39.9 MCV 94.7 MCHC 34.8 RDW 14.6 Plt Count 157 D MPV 10.1 Neutrophils % 89.5 H Lymphocytes % 5.7 L D Monocytes % 4.7 Eosinophils % 0.0 D Basophils % 0.1 Sodium 137 Potassium 3.3 L Chloride 99 Carbon Dioxide 23 Anion Gap 15 BUN 13 D Creatinine 0.7 Creat Clearance w eGFR > 60 Random Glucose 153 H Lactic Acid Calcium 8.8 Magnesium 1.6 L Total Bilirubin 1.0 D AST 50 H D ALT 44 Alkaline Phosphatase 136 H Troponin I Total Protein 8.2 Albumin 4.1 Lipase 329 Urine Color Urine Appearance Urine pH Ur Specific [place] Urine Protein Urine Glucose (UA) Urine Ketones Urine Blood Urine Nitrite Urine Bilirubin Urine Urobilinogen Ur Leukocyte Esterase Urine RBC Urine WBC Ur Epithelial Cells Urine Bacteria Hyaline Casts Urine Mucus Urine HCG, Qual 01/02/17 01/02/17 01/02/17 05:20 06:15 09:45 WBC RBC Hgb Hct MCV MCHC RDW Plt Count MPV Neutrophils % Lymphocytes % Monocytes % Eosinophils % Basophils % Sodium Potassium Chloride Carbon Dioxide Anion Gap BUN Creatinine Creat Clearance w eGFR Random Glucose Lactic Acid 2.229 H* 2.041 H* Calcium Magnesium Total Bilirubin AST ALT Alkaline Phosphatase Troponin I Total Protein Albumin Lipase Urine Color [place] Urine Appearance Cloudy Urine pH 6.0 Ur Specific [place] 1.037 H Urine Protein 3+ H Urine Glucose (UA) 1+ H Urine Ketones Trace H Urine Blood Negative Urine Nitrite Negative Urine Bilirubin 2.0 Urine Urobilinogen 2.0 e.u/dl H Ur Leukocyte Esterase Negative Urine RBC 1 Urine WBC 8 Ur Epithelial Cells Many Urine Bacteria Rare Hyaline Casts 15 Urine Mucus Many Urine HCG, Qual Negative 01/02/17 01/02/17 01/02/17 09:45 09:45 16:00 WBC 17.9 H RBC 3.99 Hgb 12.8 Hct 38.4 MCV 96.2 H MCHC 33.4 RDW 14.7 Plt Count 115 L D MPV 10.0 Neutrophils % 88.3 H Lymphocytes % 5.9 L Monocytes % 5.5 Eosinophils % 0.0 Basophils % 0.3 Sodium 138 Potassium 3.6 Chloride 103 Carbon Dioxide 24 Anion Gap 11 BUN 12 Creatinine 0.7 Creat Clearance w eGFR Random Glucose 144 H Lactic Acid Calcium 7.8 L Magnesium 2.0 D Total Bilirubin AST ALT Alkaline Phosphatase Troponin I 1.64 H* 1.28 H* Total Protein Albumin Lipase Urine Color Urine Appearance Urine pH Ur Specific [place] Urine Protein Urine Glucose (UA) Urine Ketones Urine Blood Urine Nitrite Urine Bilirubin Urine Urobilinogen Ur Leukocyte Esterase Urine RBC Urine WBC Ur Epithelial Cells Urine Bacteria Hyaline Casts Urine Mucus Urine HCG, Qual Imaging - Results Chest X-ray: Image Reviewed (no i/e) EKG: Image Reviewed (sr rep abn) Problem List - Problems (1) Abdominal pain, epigastric Code(s): R10.13 - EPIGASTRIC PAIN (2) Nausea and vomiting Code(s): R11.2 - NAUSEA WITH VOMITING, UNSPECIFIED Qualifiers: Vomiting type: unspecified Vomiting Intractability: unspecified Qualified Code(s): R11.2 - Nausea with vomiting, unspecified (3) Alcohol abuse, continuous Code(s): F10.10 - ALCOHOL ABUSE, UNCOMPLICATED (4) Abdominal pain Code(s): R10.9 - UNSPECIFIED ABDOMINAL PAIN Qualifiers: Abdominal location: epigastric Qualified Code(s): R10.13 - Epigastric pain (5) Alcohol dependence with uncomplicated withdrawal Code(s): F10.230 - ALCOHOL DEPENDENCE WITH WITHDRAWAL, UNCOMPLICATED (6) Alcohol withdrawal Code(s): F10.239 - ALCOHOL DEPENDENCE WITH WITHDRAWAL, UNSPECIFIED Qualifiers : Complication of substance-induced condition: uncomplicated Qualified Code(s): F10.230 - Alcohol dependence with withdrawal, uncomplicated (7) Bipolar II disorder Code(s): F31.81 - BIPOLAR II DISORDER (8) Delirium Code(s): R41.0 - DISORIENTATION, UNSPECIFIED (9) Delirium due to another medical condition Code(s): F05 - DELIRIUM DUE TO KNOWN PHYSIOLOGICAL CONDITION (10) Fever Code(s): R50.9 - FEVER, UNSPECIFIED Qualifiers: Fever type: unspecified Qualified Code(s): R50.9 - Fever, unspecified (11) Gastritis Code(s): K29.70 - GASTRITIS, UNSPECIFIED, WITHOUT BLEEDING Qualifiers: Gastritis type: alcoholic Chronicity: acute Gastritis bleeding: without bleeding Qualified Code(s): K29.20 - Alcoholic gastritis without bleeding (12) Hep C w/o coma, chronic Code(s): B18.2 - CHRONIC VIRAL HEPATITIS C (13) Heroin abuse Code(s): F11.10 - OPIOID ABUSE, UNCOMPLICATED (14) Nausea and vomiting in adult Code(s): R11.2 - NAUSEA WITH VOMITING, UNSPECIFIED (15) Opiate withdrawal Code(s): F11.23 - OPIOID DEPENDENCE WITH WITHDRAWAL (16) Pancreatitis Code(s): K85.9 - ACUTE PANCREATITIS, UNSPECIFIED * DO NOT USE * Qualifiers: Chronicity: acute Pancreatitis type: alcohol induced Qualified Code (s): K85.2 - Alcohol induced acute pancreatitis (17) Pancreatitis, acute Code(s): K85.9 - ACUTE PANCREATITIS, UNSPECIFIED * DO NOT USE * (18) Tobacco dependence Code(s): F17.200 - NICOTINE DEPENDENCE, UNSPECIFIED, UNCOMPLICATED (19) Tobacco use disorder Code(s): Z72.0 - TOBACCO USE (20) Uncomplicated sedative, hypnotic or anxiolytic withdrawal Code(s): F13.230 - SEDATV/HYP/ANXIOLYTC DEPENDENCE W WITHDRAWAL, UNCOMPLICATED (21) Vomiting Code(s): R11.10 - VOMITING, UNSPECIFIED Qualifiers: Vomiting type: unspecified Vomiting Intractability: intractable Nausea presence: with nausea Qualified Code(s): R11.2 - Nausea with vomiting , unspecified (22) Anemia Code(s): D64.9 - ANEMIA, UNSPECIFIED (23) Bipolar 1 disorder Code(s): F31.9 - BIPOLAR DISORDER, UNSPECIFIED (24) Cannabis dependence, uncomplicated Code(s): F12.20 - CANNABIS DEPENDENCE, UNCOMPLICATED (25) Nicotine dependence Code(s): F17.200 - NICOTINE DEPENDENCE, UNSPECIFIED, UNCOMPLICATED Qualifiers : Nicotine product type: cigarettes Substance use status: uncomplicated Qualified Code(s): F17.210 - Nicotine dependence, cigarettes, uncomplicated (26) Opioid dependence with withdrawal Code(s): F11.23 - OPIOID DEPENDENCE WITH WITHDRAWAL Assessment/Plan abd pain hiv hepc polysubstance abuse bipolar plan echo gi w/u
[2017-01-02] MEDS ORDERED: CLOPIDOGREL BISULFATE 75 MG TABLET (FP) PO STA ×2 (19:54→23:18)
[2017-01-02 22:15] LABS: CHOLESTEROL 174 mg/dL (50-200)
[2017-01-02 22:23] LABS: LDL CHOLESTEROL (ONLY SJRH) 81 mg/dL (5-100)
[2017-01-02] MEDS: PANTOPRAZOLE SODIUM 100 ML IVPB SCH (23:26)
[2017-01-03] MEDS: ACETAMINOPHEN 325 MG TABLET (FP) PO PRN (05:33)
[2017-01-03 08:32] LABS: BASOPHIL 0.3 % (0-2.0); EOSINOPHIL 0.5 % (0-4.5); MCH 32.9 pg (25.7-33.7); MCHC 33.6 g/dl (32.0-36.0); MEAN CELL VOLUME 97.8 fl (80-96); NEUTROPHILS 61.4 % (42.8-82.8); PLATELET COUNT 88 K/MM3 (134-434); RDW 14.5 % (11.6-15.6); WHITE BLOOD COUNT 7.3 K/mm3 (4.0-10.0)
[2017-01-03 09:03] LABS: ALBUMIN 3.2 g/dl (3.4-5.0); ALK PHOS 104 U/L (45-117); ANION GAP 9 (8-16); BILIRUBIN,TOTAL 0.9 mg/dL (0.2-1.0); CALCIUM 7.9 mg/dL (8.5-10.1); CO2 26 mmol/L (21-32); CREATININE 0.7 mg/dL (0.55-1.02); GLUCOSE,RANDOM 83 mg/dL (74-106); SGOT/AST 29 U/L (15-37); SGPT/ALT 29 U/L (12-78); TOT PROT 6.7 g/dl (6.4-8.2)
--- NOTE | 2017-01-03 09:25 | PN ---
Teaching Attending Note Name of Resident: Curly Raphael ATTENDING PHYSICIAN STATEMENT I saw and evaluated the patient. I reviewed the resident's note and discussed the case with the resident. I agree with the resident's findings and plan as documented. Patient continues to ask for Methadone. c/o being in pain. But has Qt prolongations therefore cannot give Methadone Vital Signs Temperature 98.1 F 01/03/17 02:00 Pulse Rate 80 01/03/17 06:00 Respiratory Rate 20 01/03/17 06:00 Blood Pressure 113/64 01/03/17 06:00 O2 Sat by Pulse Oximetry (%) 98 01/02/17 11:45 CBCD WBC 7.3 K/mm3 (4.0-10.0) D 01/03/17 07:50 RBC 4.08 M/mm3 (3.60-5.2) 01/03/17 07:50 Hgb 13.4 GM/dL (10.7-15.3) 01/03/17 07:50 Hct 39.9 % (32.4-45.2) 01/03/17 07:50 MCV 97.8 fl (80-96) H 01/03/17 07:50 MCHC 33.6 g/dl (32.0-36.0) 01/03/17 07:50 RDW 14.5 % (11.6-15.6) 01/03/17 07:50 Plt Count 88 K/MM3 (134-434) L D 01/03/17 07:50 MPV 11.0 fl (7.5-11.1) 01/03/17 07:50 CMP Sodium 142 mmol/L (136-145) 01/03/17 07:50 Potassium 3.5 mmol/L (3.5-5.1) 01/03/17 07:50 Chloride 107 mmol/L (98-107) 01/03/17 07:50 Carbon Dioxide 26 mmol/L (21-32) 01/03/17 07:50 Anion Gap 9 (8-16) 01/03/17 07:50 BUN 10 mg/dL (7-18) 01/03/17 07:50 Creatinine 0.7 mg/dL (0.55-1.02) 01/03/17 07:50 Creat Clearance w eGFR > 60 (>60) 01/03/17 07:50 Random Glucose 83 mg/dL (74-106) D 01/03/17 07:50 Calcium 7.9 mg/dL (8.5-10.1) L 01/03/17 07:50 Total Bilirubin 0.9 mg/dL (0.2-1.0) 01/03/17 07:50 AST 29 U/L (15-37) D 01/03/17 07:50 ALT 29 U/L (12-78) D 01/03/17 07:50 Alkaline Phosphatase 104 U/L (45-117) D 01/03/17 07:50 Total Protein 6.7 g/dl (6.4-8.2) 01/03/17 07:50 Albumin 3.2 g/dl (3.4-5.0) L D 01/03/17 07:50 CARDIAC ENZYMES Troponin I 0.80 ng/ml (0.00-0.05) H* 01/02/17 21:40 Current Medications Generic Name Dose Route Start Last Admin Trade Name Freq PRN Reason Stop Dose Admin Acetaminophen 650 mg 01/02/17 14:08 01/03/17 05:33 Tylenol - PO 650 mg Q6H PRN Administration FEVER OR PAIN Aspirin 81 mg 01/03/17 10:00 Ecotrin - PO DAILY GONZALEZ Clopidogrel Bisulfate 75 mg 01/03/17 10:00 Plavix - PO DAILY GONZALEZ Enoxaparin Sodium 60 mg 01/03/17 10:00 Lovenox - SQ BID GONZALEZ Sodium Chloride 1,000 mls @ 100 mls/hr 01/02/17 14:09 01/02/17 15:06 Normal Saline - IV 100 mls/hr ASDIR GONZALEZ Administration Pantoprazole Sodium 100 mls @ 200 mls/hr 01/02/17 22:00 01/02/17 23:26 Protonix 40mg Ivpb (Pre-Docked) IVPB 200 mls/hr BID GONZALEZ Administration Lorazepam 1 mg 01/02/17 14:48 Ativan - PO Q6H PRN WITHDRAWAL(CONT SUBST) Home Medications Medication Instructions Recorded Emtricitabine/Tenofovir [Truvada -] 0 mg PO DAILY 09/13/16 Methadone [Dolophine -] 60 mg PO DAILY 09/13/16 Gabapentin [Neurontin] 600 mg PO TID #30 tablet 10/11/16 [place] Carbonate [Eskalith -] 0 mg PO DAILY #30 capsule 10/11/16 Quetiapine Fumarate [Seroquel -] 50 mg PO AM #30 tablet 10/11/16 Quetiapine Fumarate [Seroquel] 200 tab PO HS #30 tablet 10/11/16 Sertraline HCl [Zoloft] 100 mg PO HS #30 tablet 10/11/16 Ondansetron HCl [Zofran] 4 mg PO TID PRN #12 tablet 01/01/17 Pantoprazole Sodium [Protonix] 40 mg PO DAILY #30 tablet. 01/01/17 ASSESSMENT AND PLAN: Patient is a 46 yr old woman with ETOH abuse, methadone maintenance, bipolar d/o , presents with epigastric pain and vomiting for 2 days, found to have prolonged QTc. # Acute Thrombocytopenia due to be getting Lovenox, EToH use. Discussed with regarding acute thrombocytopenia, came in with platelets of 157---> now 88K, ordered Hit2 stat, as per to monitor platelets and continue Lovenox for now, if further drop will stop Lovenox. will see the patient today. #Elevated troponins possible NTSMI /new prolonged QTc can't use Methadone for now since can cause further QTc prolongation cardiology consult appreciated; MIBI stress as per occupational therapy manager in 1-2 days ; Echo: with moderate global hypokinesis of the left ventricle, left systolic funciton reduced, elevated right vent function at 30-40, possible left to right shunt. On Plavix continue 75mg plavix, 81 mg asa daily avoid medications that prolong QT (methadone, lithium, seroquel, zofran) #Lactic acidosis - resolved, s/p IVF #ETOH withdrawal - on alcohol detox Librium protocol , check , mag, phos level ; continue ativan 2mg po q6h prn for withdrawal sx #Methadone maintenance - hold for now due to QTc prolongation further, Dr. Gil consulted for evaluation given QTc #c/o vaginal discharge Clue cells on gram stain, treat with metrogel VG qhs #Smoking ,refusing nicotine patch, smoking cessation information at discharge #diet - regular #dvt: on full dose lovenox
--- NOTE | 2017-01-03 09:41 | PN ---
Physical Exam: SUBJECTIVE: Patient seen and examined agitated this morning, [facility] condition [facility] and security. She was transferred to another room. c/o not receiving her methadone and that ativan is not enough for her symptoms, c/o continued abdominal pain and poor po intake due to the pain. she also has the band-like distribution of the lower chest discomfort and also c /o left leg pain. OBJECTIVE: Vital Signs Period Temp Pulse Resp BP Sys/Moore Pulse Ox Last 24 Hr 98.1 F-98.2 F 71-100 20-20 95-113/56-70 GENERAL: The patient is awake, alert, and fully oriented, agigated, pacing hallway HEAD: Normal with no signs of trauma. EYES: PERRL, extraocular movements intact, sclera anicteric, conjunctiva clear. No ptosis. ENT: dentures in place moist mucous membranes. NECK: Trachea midline, full range of motion, supple. LUNGS: Breath sounds equal, clear to auscultation bilaterally, no wheezes, no crackles, no accessory muscle use. HEART: tachycardic rate and sinus rhythm, S1, S2 without murmur ABDOMEN: Soft, nontender, nondistended, normoactive bowel sounds, no guarding EXTREMITIES: 2+ pulses, warm, well-perfused, no edema. erythema in left lower leg improved, cigarette healing without erythema, discharge Laboratory Results - last 24 hr 01/02/17 01/02/17 01/02/17 21:40 21:40 21:40 WBC RBC Hgb Hct MCV MCHC RDW Plt Count MPV Neutrophils % Lymphocytes % Monocytes % Eosinophils % Basophils % Sodium Potassium Chloride Carbon Dioxide Anion Gap BUN Creatinine Creat Clearance w eGFR Random Glucose Hemoglobin A1c % Lactic Acid 1.524 Calcium Total Bilirubin AST ALT Alkaline Phosphatase Troponin I 0.80 H* Total Protein Albumin Triglycerides 82 Cholesterol 174 Total LDL Cholesterol 81 HDL Cholesterol 85 H 01/02/17 01/03/17 01/03/17 21:40 07:50 07:50 WBC 7.3 D RBC 4.08 Hgb 13.4 Hct 39.9 MCV 97.8 H MCHC 33.6 RDW 14.5 Plt Count 88 L D MPV 11.0 Neutrophils % 61.4 D Lymphocytes % 32.5 D Monocytes % 5.3 Eosinophils % 0.5 D Basophils % 0.3 Sodium 142 Potassium 3.5 Chloride 107 Carbon Dioxide 26 Anion Gap 9 BUN 10 Creatinine 0.7 Creat Clearance w eGFR > 60 Random Glucose 83 D Hemoglobin A1c % 5.1 Lactic Acid Calcium 7.9 L Total Bilirubin 0.9 AST 29 D ALT 29 D Alkaline Phosphatase 104 D Troponin I Total Protein 6.7 Albumin 3.2 L D Triglycerides Cholesterol Total LDL Cholesterol HDL Cholesterol Active Medications Generic Name Dose Route Start Last Admin Trade Name Freq PRN Reason Stop Dose Admin Acetaminophen 650 mg 01/02/17 14:08 01/03/17 05:33 Tylenol - PO 650 mg Q6H PRN Administration FEVER OR PAIN Aspirin 81 mg 01/03/17 10:00 Ecotrin - PO DAILY GONZALEZ Clopidogrel Bisulfate 75 mg 01/03/17 10:00 Plavix - PO DAILY GONZALEZ Enoxaparin Sodium 60 mg 01/03/17 10:00 Lovenox - SQ BID GONZALEZ Sodium Chloride 1,000 mls @ 100 mls/hr 01/02/17 14:09 01/02/17 15:06 Normal Saline - IV 100 mls/hr ASDIR GONZALEZ Administration Pantoprazole Sodium 100 mls @ 200 mls/hr 01/02/17 22:00 01/02/17 23:26 Protonix 40mg Ivpb (Pre-Docked) IVPB 200 mls/hr BID GONZALEZ Administration Lorazepam 1 mg 01/02/17 14:48 Ativan - PO Q6H PRN WITHDRAWAL(CONT SUBST) s/p: ASA 325 po, plavix 300mg po, lovenix 1mg/kg BID ASSESSMENT/PLAN: 46 yr old woman with ETOH abuse, methadone maintenance, bipolar d/o, presents with epigastric pain and vomiting for 2 days, found to have prolonged QTc. #Platelets decreased this morning- 157->115->88, possible HIT due to Lovenox, hold lovenox - HIT-ab pending - Dr. Gutierres consulted #Elevated troponins/new prolonged QTc- possible Nstemi. Qtc prolonged on repeat EKG this morning. - appreciate cardiology consult; doubt primary MS, MIBI stress in 1-2 days -troponins trended down - echo: with moderate global hypokinesis of the left ventricle, left systolic funciton reduced, elevated right vent function at 30-40, possible left to right shunt -- continue 75mg plavix, 81 mg asa daily - lipid panel wnl, A1c 5.1, not diabetic - avoid medications that prolong QT (methadone, lithium, seroquel, zofran) #Lactic acidosis - resolved, cbc trended down - dc fluids #Vomiting - likely gastritis secondary to etoh, (lipase low, unlikely to be pancreatitis, CT neg for acute abdominal path) - protonix 40mg IVPB bid (pt cannot tolerate reglan, avoid zofran) - no repeat episodes of vomiting since admission, says she has poor appetite, possibly due to agitation over not receiving her methadone vs continued gastritis #ETOH withdrawal - CIWA score 4, due to agitation place on librium taper - banana bag - IVF #Methadone maintenance - hold for now due to QTc, ativan 2mg po q6h prn for withdrawal sx with librium taper, Dr. Gil consulted for evaluation given QTc, concern over restarting methadone #c/o vaginal discharge - Clue cells on gram stain, treat with metrogel VG qhs #Smoking - declined nicotine patch, will provide smoking cessation information at discharge #diet - regular #dvt: on full dose lovenox Visit type - Emergency Visit Emergency Visit: No - New Patient This patient is new to me today: No - Critical Care Critical Care patient: No
[2017-01-03] MEDS ORDERED: ENOXAPARIN NA (PORCINE) 60 MG/0.6 ML DISP.SYRIN SQ SCH (10:00)
--- NOTE | 2017-01-03 10:23 | PN ---
Progress Note, Physician History of Present Illness: 46 yr old woman with polysubstance abuse, Hep C, bipolar d/o, anemia, presents with abdominal pain and vomiting since last night. Abdominal pain is in the upper abdomen 8/10 intensity, characterized as discomfort, band like, radiates to sides and back. Numerous episodes of vomiting, too many to count, yellow liquidy, small amount each time, no blood. Has been having poor po intake due to vomiting for past 2 days. Also has chest discomfort, band like distribution, 8/10 intensity, above epigastrium, worse with deep inspiration, nonpositional. Last drink tuesday morning, was drinking 1-2 pints/day for two days (Sae[employer]Madan, cece ramos). It's been months since she has taken her seroquel or her lithium because she has been drinking nearly every day. was in the ED last night due to abdominal pain and vomiting. - Current Medication List Current Medications: Active Medications Acetaminophen (Tylenol -) 650 mg PO Q6H PRN PRN Reason: FEVER OR PAIN Last Admin: 01/03/17 05:33 Dose: 650 mg Aspirin (Ecotrin -) 81 mg PO DAILY [facility] Clopidogrel Bisulfate (Plavix -) 75 mg PO DAILY [facility] Enoxaparin Sodium (Lovenox -) 60 mg SQ BID [facility] Sodium Chloride (Normal Saline -) 1,000 mls @ 100 mls/hr IV ASDIR [facility] Last Admin: 01/02/17 15:06 Dose: 100 mls/hr Pantoprazole Sodium (Protonix 40mg Ivpb (Pre-Docked)) 100 mls @ 200 mls/hr IVPB BID [facility] Last Admin: 01/02/17 23:26 Dose: 200 mls/hr Lorazepam (Ativan -) 1 mg PO Q6H PRN PRN Reason: WITHDRAWAL(CONT SUBST) - Objective Vital Signs: Vital Signs Temperature 98.1 F 01/03/17 02:00 Pulse Rate 80 01/03/17 06:00 Respiratory Rate 20 01/03/17 06:00 Blood Pressure 113/64 01/03/17 06:00 O2 Sat by Pulse Oximetry (%) 98 01/02/17 11:45 Eyes: Yes: WNL, Conjunctiva Clear, EOM Intact HENT: Yes: WNL, Atraumatic, Normocephalic Neck: Yes: WNL, Supple, Trachea Midline Cardiovascular: Yes: WNL, Regular Rate and Rhythm Respiratory: Yes: WNL, Regular, CTA Bilaterally Gastrointestinal: Yes: WNL, Normal Bowel Sounds Genitourinary: Yes: WNL Musculoskeletal: Yes: WNL Extremities: Yes: WNL Edema: No Integumentary: Yes: WNL Neurological: Yes: WNL, Alert, Oriented ...Motor Strength: WNL Psychiatric: Yes: WNL Labs: CBC, BMP 01/03/17 07:50 01/03/17 07:50 Problem List - Problems (1) Abdominal pain, epigastric Code(s): R10.13 - EPIGASTRIC PAIN (2) Nausea and vomiting Code(s): R11.2 - NAUSEA WITH VOMITING, UNSPECIFIED Qualifiers: Vomiting type: unspecified Vomiting Intractability: unspecified Qualified Code(s): R11.2 - Nausea with vomiting, unspecified (3) Alcohol abuse, continuous Code(s): F10.10 - ALCOHOL ABUSE, UNCOMPLICATED (4) Abdominal pain Code(s): R10.9 - UNSPECIFIED ABDOMINAL PAIN Qualifiers: Abdominal location: epigastric Qualified Code(s): R10.13 - Epigastric pain (5) Alcohol dependence with uncomplicated withdrawal Code(s): F10.230 - ALCOHOL DEPENDENCE WITH WITHDRAWAL, UNCOMPLICATED (6) Alcohol withdrawal Code(s): F10.239 - ALCOHOL DEPENDENCE WITH WITHDRAWAL, UNSPECIFIED Qualifiers : Complication of substance-induced condition: uncomplicated Qualified Code(s): F10.230 - Alcohol dependence with withdrawal, uncomplicated (7) Bipolar II disorder Code(s): F31.81 - BIPOLAR II DISORDER (8) Delirium Code(s): R41.0 - DISORIENTATION, UNSPECIFIED (9) Delirium due to another medical condition Code(s): F05 - DELIRIUM DUE TO KNOWN PHYSIOLOGICAL CONDITION (10) Fever Code(s): R50.9 - FEVER, UNSPECIFIED Qualifiers: Fever type: unspecified Qualified Code(s): R50.9 - Fever, unspecified (11) Gastritis Code(s): K29.70 - GASTRITIS, UNSPECIFIED, WITHOUT BLEEDING Qualifiers: Gastritis type: alcoholic Chronicity: acute Gastritis bleeding: without bleeding Qualified Code(s): K29.20 - Alcoholic gastritis without bleeding (12) Hep C w/o coma, chronic Code(s): B18.2 - CHRONIC VIRAL HEPATITIS C (13) Heroin abuse Code(s): F11.10 - OPIOID ABUSE, UNCOMPLICATED (14) Nausea and vomiting in adult Code(s): R11.2 - NAUSEA WITH VOMITING, UNSPECIFIED (15) Opiate withdrawal Code(s): F11.23 - OPIOID DEPENDENCE WITH WITHDRAWAL (16) Pancreatitis Code(s): K85.9 - ACUTE PANCREATITIS, UNSPECIFIED * DO NOT USE * Qualifiers: Chronicity: acute Pancreatitis type: alcohol induced Qualified Code (s): K85.2 - Alcohol induced acute pancreatitis (17) Pancreatitis, acute Code(s): K85.9 - ACUTE PANCREATITIS, UNSPECIFIED * DO NOT USE * (18) Tobacco dependence Code(s): F17.200 - NICOTINE DEPENDENCE, UNSPECIFIED, UNCOMPLICATED (19) Tobacco use disorder Code(s): Z72.0 - TOBACCO USE (20) Uncomplicated sedative, hypnotic or anxiolytic withdrawal Code(s): F13.230 - SEDATV/HYP/ANXIOLYTC DEPENDENCE W WITHDRAWAL, UNCOMPLICATED (21) Vomiting Code(s): R11.10 - VOMITING, UNSPECIFIED Qualifiers: Vomiting type: unspecified Vomiting Intractability: intractable Nausea presence: with nausea Qualified Code(s): R11.2 - Nausea with vomiting , unspecified (22) Anemia Code(s): D64.9 - ANEMIA, UNSPECIFIED (23) Bipolar 1 disorder Code(s): F31.9 - BIPOLAR DISORDER, UNSPECIFIED (24) Cannabis dependence, uncomplicated Code(s): F12.20 - CANNABIS DEPENDENCE, UNCOMPLICATED (25) Nicotine dependence Code(s): F17.200 - NICOTINE DEPENDENCE, UNSPECIFIED, UNCOMPLICATED Qualifiers : Nicotine product type: cigarettes Substance use status: uncomplicated Qualified Code(s): F17.210 - Nicotine dependence, cigarettes, uncomplicated (26) Opioid dependence with withdrawal Code(s): F11.23 - OPIOID DEPENDENCE WITH WITHDRAWAL Assessment/Plan abd pain hiv hepc polysubstance abuse bipolar plan echo gi w/u
--- NOTE | 2017-01-03 10:26 | PN ---
Progress Note, Physician - Current Medication List Current Medications: Active Medications Acetaminophen (Tylenol -) 650 mg PO Q6H PRN PRN Reason: FEVER OR PAIN Last Admin: 01/03/17 05:33 Dose: 650 mg Aspirin (Ecotrin -) 81 mg PO DAILY [facility] Clopidogrel Bisulfate (Plavix -) 75 mg PO DAILY [facility] Enoxaparin Sodium (Lovenox -) 60 mg SQ BID [facility] Sodium Chloride (Normal Saline -) 1,000 mls @ 100 mls/hr IV ASDIR [facility] Last Admin: 01/02/17 15:06 Dose: 100 mls/hr Pantoprazole Sodium (Protonix 40mg Ivpb (Pre-Docked)) 100 mls @ 200 mls/hr IVPB BID [facility] Last Admin: 01/02/17 23:26 Dose: 200 mls/hr Lorazepam (Ativan -) 1 mg PO Q6H PRN PRN Reason: WITHDRAWAL(CONT SUBST) - Objective Vital Signs: Vital Signs Temperature 98.1 F 01/03/17 02:00 Pulse Rate 80 01/03/17 06:00 Respiratory Rate 20 01/03/17 06:00 Blood Pressure 113/64 01/03/17 06:00 O2 Sat by Pulse Oximetry (%) 98 01/02/17 11:45 Labs: CBC, BMP 01/03/17 07:50 01/03/17 07:50 Problem List - Problems (1) Abdominal pain, epigastric Code(s): R10.13 - EPIGASTRIC PAIN (2) Nausea and vomiting Code(s): R11.2 - NAUSEA WITH VOMITING, UNSPECIFIED Qualifiers: Vomiting type: unspecified Vomiting Intractability: unspecified Qualified Code(s): R11.2 - Nausea with vomiting, unspecified (3) Alcohol abuse, continuous Code(s): F10.10 - ALCOHOL ABUSE, UNCOMPLICATED (4) Abdominal pain Code(s): R10.9 - UNSPECIFIED ABDOMINAL PAIN Qualifiers: Abdominal location: epigastric Qualified Code(s): R10.13 - Epigastric pain (5) Alcohol dependence with uncomplicated withdrawal Code(s): F10.230 - ALCOHOL DEPENDENCE WITH WITHDRAWAL, UNCOMPLICATED (6) Alcohol withdrawal Code(s): F10.239 - ALCOHOL DEPENDENCE WITH WITHDRAWAL, UNSPECIFIED Qualifiers : Complication of substance-induced condition: uncomplicated Qualified Code(s): F10.230 - Alcohol dependence with withdrawal, uncomplicated (7) Bipolar II disorder Code(s): F31.81 - BIPOLAR II DISORDER (8) Delirium Code(s): R41.0 - DISORIENTATION, UNSPECIFIED (9) Delirium due to another medical condition Code(s): F05 - DELIRIUM DUE TO KNOWN PHYSIOLOGICAL CONDITION (10) Fever Code(s): R50.9 - FEVER, UNSPECIFIED Qualifiers: Fever type: unspecified Qualified Code(s): R50.9 - Fever, unspecified (11) Gastritis Code(s): K29.70 - GASTRITIS, UNSPECIFIED, WITHOUT BLEEDING Qualifiers: Gastritis type: alcoholic Chronicity: acute Gastritis bleeding: without bleeding Qualified Code(s): K29.20 - Alcoholic gastritis without bleeding (12) Hep C w/o coma, chronic Code(s): B18.2 - CHRONIC VIRAL HEPATITIS C (13) Heroin abuse Code(s): F11.10 - OPIOID ABUSE, UNCOMPLICATED (14) Nausea and vomiting in adult Code(s): R11.2 - NAUSEA WITH VOMITING, UNSPECIFIED (15) Opiate withdrawal Code(s): F11.23 - OPIOID DEPENDENCE WITH WITHDRAWAL (16) Pancreatitis Code(s): K85.9 - ACUTE PANCREATITIS, UNSPECIFIED * DO NOT USE * Qualifiers: Chronicity: acute Pancreatitis type: alcohol induced Qualified Code (s): K85.2 - Alcohol induced acute pancreatitis (17) Pancreatitis, acute Code(s): K85.9 - ACUTE PANCREATITIS, UNSPECIFIED * DO NOT USE * (18) Tobacco dependence Code(s): F17.200 - NICOTINE DEPENDENCE, UNSPECIFIED, UNCOMPLICATED (19) Tobacco use disorder Code(s): Z72.0 - TOBACCO USE (20) Uncomplicated sedative, hypnotic or anxiolytic withdrawal Code(s): F13.230 - SEDATV/HYP/ANXIOLYTC DEPENDENCE W WITHDRAWAL, UNCOMPLICATED (21) Vomiting Code(s): R11.10 - VOMITING, UNSPECIFIED Qualifiers: Vomiting type: unspecified Vomiting Intractability: intractable Nausea presence: with nausea Qualified Code(s): R11.2 - Nausea with vomiting , unspecified (22) Anemia Code(s): D64.9 - ANEMIA, UNSPECIFIED (23) Bipolar 1 disorder Code(s): F31.9 - BIPOLAR DISORDER, UNSPECIFIED (24) Cannabis dependence, uncomplicated Code(s): F12.20 - CANNABIS DEPENDENCE, UNCOMPLICATED (25) Nicotine dependence Code(s): F17.200 - NICOTINE DEPENDENCE, UNSPECIFIED, UNCOMPLICATED Qualifiers : Nicotine product type: cigarettes Substance use status: uncomplicated Qualified Code(s): F17.210 - Nicotine dependence, cigarettes, uncomplicated (26) Opioid dependence with withdrawal Code(s): F11.23 - OPIOID DEPENDENCE WITH WITHDRAWAL Assessment/Plan abd pain hiv hepc polysubstance abuse bipolar elevated tnis plan echo gi w/u elevated tni's doubt primary RI. check ck ckmb MIBI st 1-2 days if stable asa b-blockers
[2017-01-03] MEDS: PANTOPRAZOLE SODIUM 100 ML IVPB SCH ×2 (10:33→22:48)
[2017-01-03] MEDS: CLOPIDOGREL BISULFATE 75 MG TABLET (FP) PO SCH (10:33)
[2017-01-03] MEDS: ASPIRIN COATED 81 MG TABLET.EC PO SCH (10:33)
[2017-01-03 12:05] LABS: HIV 1 & 2 AB NEGATIVE
[2017-01-03 12:06] LABS: HIV 1 AGp24 NEGATIVE
[2017-01-03] MEDS ORDERED: chlordiazePOXIDE HCL 25 MG CAPSULE PO PRN (13:43)
[2017-01-03] MEDS ORDERED: LORazepam 1 MG TABLET PO ONE (13:45)
[2017-01-03] MEDS: SODIUM CHLORIDE 1,000 ML IV SCH (13:48)
[2017-01-03] MEDS ORDERED: chlordiazePOXIDE HCL 25 MG CAPSULE PO ONE (14:45)
[2017-01-03] MEDS: LORazepam 1 MG TABLET PO PRN ×2 (16:18→22:48)
[2017-01-03] MEDS: chlordiazePOXIDE HCL 25 MG CAPSULE PO SCH ×2 (18:01→22:48)
[2017-01-03 19:05] LABS: URINE APPEARANCE CLEAR; URINE BILIRUBIN NEGATIVE (NEGATIVE); URINE BLOOD NEGATIVE (NEGATIVE); URINE COLOR LTYELLOW; URINE GLUCOSE (UA) NEGATIVE (NEGATIVE); URINE KETONE NEGATIVE (NEGATIVE); URINE NITRITE NEGATIVE (NEGATIVE); URINE PROTEIN NEGATIVE (NEGATIVE); URINE UROBILINOGEN 4.0 E.U/dl E.U./dl (0.2-1.0)
[2017-01-03 19:08] LABS: URINE LEUK ESTERASE TRACE (NEGATIVE)
[2017-01-03 19:09] LABS: URINE RBC 1 /hpf (0-3); URINE WBC 4 /hpf (3-5)
--- NOTE | 2017-01-03 19:53 | CONSULT ---
Consult - text type - Consultation Consultation Note: Patient seen and examined 46 F with h/o hep C, HIV, ETOH and substance abuse, pancreatitis (ETOH-related) , bipolar disorder admitted with N/V and abdominal pain. . She had an alcohol binge after being "clean" for a period of time. on admission u tox screen only (+) for opiates. complaining of chest pain, back pain, generalized pain. demanding pain meds. Pacing down the halls - History Source History Provided By: Patient, Medical Record Limitations to Obtaining History: No Limitations - Past Medical History Gastrointestinal: Yes: Pancreatitis Hepatobiliary: Yes: Hepatitis C Infectious Disease: Yes: HIV Psych: Yes: Addictions, Bipolar - Past Surgical History Past Surgical History: Yes: None - Alcohol/Substance Use Hx Alcohol Use: Yes Number of Drinks Daily: 4 (4 pints a day) History of Substance Use: reports: Heroin - Smoking History Smoking history: Current every day smoker - Social History ADL: Independent Home Medications - Allergies Allergies/Adverse Reactions: Allergies Allergy/AdvReac Type Severity Reaction Status Date / Time prochlorperazine maleate Allergy Severe DYSTONIA Verified 09/13/16 06:48 [From Compazine] metoclopramide HCl Allergy Verified 09/13/16 06:48 [From Reglan] prochlorperazine edisylate Allergy Verified 09/13/16 06:48 [From Compazine] - Home Medications Home Medications: Ambulatory Orders Emtricitabine/Tenofovir [Truvada -] 0 mg PO DAILY 09/13/16 Gabapentin [Neurontin] 600 mg PO TID 09/13/16 [place] Carbonate [Eskalith -] 0 mg PO DAILY 09/13/16 Methadone [Dolophine -] 60 mg PO DAILY 09/13/16 Quetiapine Fumarate [Seroquel -] 50 mg PO AM 09/13/16 Quetiapine Fumarate [Seroquel] 200 tab PO HS 09/13/16 Sertraline HCl [Zoloft] 100 mg PO HS 09/13/16 Pantoprazole Sodium [Protonix] 40 mg PO DAILY #30 tablet. 09/14/16 Family Disease History - Family Disease History Family Disease History: Other: Father ( CVA), Brother ( AIDS), Sister ( THROAT CA) Physical Exam-GI AFVSS Constitutional: Yes: Anxious, Thin HENT: Yes: Normocephalic Neck: Yes: Supple Cardiovascular: Yes: Regular Rate and Rhythm Respiratory: Yes: CTA Bilaterally Gastrointestinal Inspection: Yes: WNL Labs reviewed A/P 46 y/o patient with h/o HIV/HEp. C comes in after alcohol binge with n/v/ abdominal pain Thrombocytopenia--chronic, baseline --70s to 150s Suspect due to under lyong Hep. C/liver disease/HIV check B12/folate/TSH/ Unlikely HIT Received lovenox 01/03 at 10am. Now on ASA/Plavix for ?? /NSTEMI Would consider substance-abuse and psychiatry consult
[2017-01-03] MEDS: metroNIDAZOLE 0.75% VAGINAL GEL 70 GM TUBE VG SCH (22:47)
[2017-01-04] MEDS ORDERED: chlordiazePOXIDE HCL 25 MG CAPSULE PO ONE ×2 (02:00→13:35)
[2017-01-04] MEDS: LORazepam 1 MG TABLET PO PRN ×3 (03:00→16:12)
[2017-01-04] MEDS ORDERED: LORAZEPAM CARPU-JECT 2 MG/ML DISP.SYRIN ONE (03:40)
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
[2017-01-04] MEDS: chlordiazePOXIDE HCL 25 MG CAPSULE PO SCH ×4 (05:15→22:54)
[2017-01-04] MEDS ORDERED: LORAZEPAM CARPU-JECT 2 MG/ML DISP.SYRIN IVPUSH ONE (05:18)
[2017-01-04] MEDS: PANTOPRAZOLE SODIUM 100 ML IVPB SCH (09:19)
[2017-01-04] MEDS: CLOPIDOGREL BISULFATE 75 MG TABLET (FP) PO SCH (09:19)
[2017-01-04] MEDS: ASPIRIN COATED 81 MG TABLET.EC PO SCH (09:19)
[2017-01-04] MEDS ORDERED: hydrOXYzine PAMOATE 50 MG CAPSULE (FP) PO ONE (09:42)
--- NOTE | 2017-01-04 10:19 | PN ---
Progress Note, Physician Chief Complaint: first time seeing her She is in restraints By reports of RN she has been combative. Had been spitting at staff She is unable to provide any coherent history. History of Present Illness: Pulls of telemetry leads - Current Medication List Current Medications: Active Medications Acetaminophen (Tylenol -) 650 mg PO Q6H PRN PRN Reason: FEVER OR PAIN Last Admin: 01/03/17 05:33 Dose: 650 mg Aspirin (Ecotrin -) 81 mg PO DAILY [facility] Last Admin: 01/04/17 09:19 Dose: 81 mg Chlordiazepoxide HCl (Librium -) 25 mg PO Q4H PRN PRN Reason: WITHDRAWAL(CONT SUBST) Stop: 01/06/17 13:42 Chlordiazepoxide HCl (Librium -) 50 mg PO [id number] [facility] Stop: 01/04/17 11:01 Last Admin: 01/04/17 05:15 Dose: 50 mg Chlordiazepoxide HCl (Librium -) 25 mg PO [id number] [facility] Stop: 01/05/17 11:01 Chlordiazepoxide HCl (Librium -) 15 mg PO [id number] [facility] Stop: 01/06/17 11:01 Clopidogrel Bisulfate (Plavix -) 75 mg PO DAILY [facility] Last Admin: 01/04/17 09:19 Dose: 75 mg Lorazepam (Ativan -) 2 mg PO Q6H PRN PRN Reason: WITHDRAWAL(CONT SUBST) Last Admin: 01/04/17 09:19 Dose: 2 mg Metronidazole (Metrogel 0.75% Vaginal Gel -) 1 applic VG HS [facility] Stop: 01/07/17 22:01 Last Admin: 01/03/17 22:47 Dose: 1 applic Pantoprazole Sodium (Protonix -) 40 mg PO BID [facility] - Objective Vital Signs: Vital Signs Temperature 98.2 F 01/03/17 21:31 Pulse Rate 94 H 01/03/17 21:31 Respiratory Rate 19 01/03/17 21:31 Blood Pressure 101/79 01/03/17 21:31 O2 Sat by Pulse Oximetry (%) 98 01/02/17 11:45 Constitutional: Yes: Anxious Cardiovascular: Yes: Regular Rate and Rhythm Respiratory: Yes: CTA Bilaterally Gastrointestinal: Yes: Soft Edema: Yes Edema: LLE: 1+, RLE: 1+ Labs: CBC, BMP 01/03/17 07:50 01/03/17 07:50 Laboratory Tests 01/02/17 01/02/17 01/03/17 16:00 21:40 07:50 WBC 7.3 D Hct 39.9 Plt Count 88 L D Sodium Potassium BUN Creatinine Troponin I 1.28 H* 0.80 H* 01/03/17 07:50 WBC Hct Plt Count Sodium 142 Potassium 3.5 BUN 10 Creatinine 0.7 Troponin I - ....Imaging EKG: Image Reviewed (ECG: NSR w/ NSST changes.) Assessment/Plan Assessment/Plan Abd pain-nothing acute on CT HIV Hep C Polysubstance abuse Bipolar disorder Elevated TnIs REC: GI evaluation recommended Elevated TnI-check ck and ckmb On aspirin and plavix Stress MPI when psych status improved. LV function reduced on echo. Patient mental status and behavior at this time do not allow for further cardiac diagnostic testing. Continue medical Rx. She is removing telemetry leads making continuous monitoring impossible.
--- NOTE | 2017-01-04 10:28 | EKG ---
Test Reason : Blood Pressure : / mmHG Vent. Rate : 096 BPM Atrial Rate : 096 BPM P-R Int : 146 ms QRS Dur : 092 ms QT Int : 400 ms P-R-T Axes : 061 035 107 degrees QTc Int : 505 ms NORMAL SINUS RHYTHM MINIMAL VOLTAGE CRITERIA FOR LVH, MAY BE NORMAL VARIANT SEPTAL INFARCT , AGE UNDETERMINED T WAVE ABNORMALITY, CONSIDER ANTEROLATERAL ISCHEMIA PROLONGED QT ABNORMAL ECG WHEN COMPARED WITH ECG OF 03-JAN-2017 11:55, NO SIGNIFICANT CHANGE WAS FOUND Confirmed by SKY SÁNCHEZ, VIVIAN ([id number]) on 01/04/2017 10:28:03 AM Referred By: Mariann FOY Confirmed By:VIVIAN SWANSON MD
[2017-01-04] MEDS: PANTOPRAZOLE 40 MG TABLET (FP) PO SCH ×2 (10:45→22:02)
--- NOTE | 2017-01-04 11:02 | EKG ---
Test Reason : Blood Pressure : / mmHG Vent. Rate : 085 BPM Atrial Rate : 085 BPM P-R Int : 134 ms QRS Dur : 100 ms QT Int : 456 ms P-R-T Axes : 066 029 104 degrees QTc Int : 542 ms NORMAL SINUS RHYTHM MINIMAL VOLTAGE CRITERIA FOR LVH, MAY BE NORMAL VARIANT T WAVE ABNORMALITY, CONSIDER ANTEROLATERAL ISCHEMIA PROLONGED QT ABNORMAL ECG WHEN COMPARED WITH ECG OF 02-JAN-2017 15:53, NO SIGNIFICANT CHANGE WAS FOUND Confirmed by VIVIAN SWANSON MD ([id number]) on 01/04/2017 11:02:29 AM Referred By: OPAL SCHULTZ Confirmed By:VIVIAN SWANSON MD
--- NOTE | 2017-01-04 11:56 | PN ---
Physical Exam: SUBJECTIVE: Patient seen and examined agitated, in lucho, aggressive and combative. requesting methadone. c/o abdominal pain - similar to pain during admission. OBJECTIVE: Vital Signs Period Temp Pulse Resp BP Sys/Moroe Pulse Ox Last 24 Hr 97.5 F-98.2 F 88-104 19-20 101-126/69-86 GENERAL: The patient is awake, alert, and fully oriented, in lucho HEAD: Normal with no signs of trauma. EYES: PERRL, extraocular movements intact, sclera anicteric, conjunctiva clear. ENT: oropharynx clear without exudates, moist mucous membranes, dentures in place. NECK: Trachea midline, full range of motion, supple. LUNGS: Breath sounds equal, clear to auscultation bilaterally, no wheezes, no crackles, no accessory muscle use. HEART: Regular rate and rhythm, S1, S2 without murmur ABDOMEN: Soft, nontender, nondistended, normoactive bowel sounds, no guarding EXTREMITIES: 2+ pulses, warm, well-perfused, no edema. NEUROLOGICAL: Normal speech, gait not observed. PSYCH: aggressive Laboratory Results - last 24 hr 01/02/17 01/03/17 18:40 18:20 Urine Color Ltyellow Urine Appearance Clear Urine pH 7.0 Ur Specific Robbins 1.010 Urine Protein Negative Urine Glucose (UA) Negative Urine Ketones Negative Urine Blood Negative Urine Nitrite Negative Urine Bilirubin Negative Urine Urobilinogen 4.0 e.u/dl H Ur Leukocyte Esterase Trace H Urine RBC 1 Urine WBC 4 Ur Epithelial Cells Moderate HIV 1&2 Antibody Screen Negative HIV P24 Antigen Negative Active Medications Generic Name Dose Route Start Last Admin Trade Name Terranceq PRN Reason Stop Dose Admin Acetaminophen 650 mg 01/02/17 14:08 01/03/17 05:33 Tylenol - PO 650 mg Q6H PRN Administration FEVER OR PAIN Aspirin 81 mg 01/03/17 10:00 01/04/17 09:19 Ecotrin - PO 81 mg DAILY [facility] Administration Chlordiazepoxide HCl 25 mg 01/03/17 13:43 Librium - PO 01/06/17 13:42 Q4H PRN WITHDRAWAL(CONT SUBST) Chlordiazepoxide HCl 25 mg 01/04/17 17:00 Librium - PO 01/05/17 11:01 [id number] [facility] Chlordiazepoxide HCl 15 mg 01/05/17 17:00 Librium - PO 01/06/17 11:01 [id number] [facility] Clopidogrel Bisulfate 75 mg 01/03/17 10:00 01/04/17 09:19 Plavix - PO 75 mg DAILY [facility] Administration Lorazepam 2 mg 01/04/17 02:57 01/04/17 09:19 Ativan - PO 2 mg Q6H PRN Administration WITHDRAWAL(CONT SUBST) Metronidazole 1 applic 01/03/17 22:00 01/03/17 22:47 Metrogel 0.75% Vaginal Gel - VG 01/07/17 22:01 1 applic HS [facility] Administration Pantoprazole Sodium 40 mg 01/04/17 10:15 01/04/17 10:45 Protonix - PO 40 mg BID [facility] Administration s/p: ASA 325 po, plavix 300mg po, lovenix 1mg/kg BID ASSESSMENT/PLAN: 46 yr old woman with ETOH abuse, methadone maintenance, bipolar d/o, presents with epigastric pain and vomiting for 2 days, found to have prolonged QTc. - pt has no IV access. - QTc improved today, 505 #Bipolar d/o - likley experiencing manic episode; aggressive behavior, did not sleep last night - Psych consult #Abdominal pain - no repeat episodes of vomiting, benign abdominal exam - protonix 40mg po BID (pt cannot tolerate reglan, avoid zofran) - says she has poor appetite, 100% of meals eaten recorded, possibly due to agitation over not receiving her methadone vs continued gastritis #Platelets decreased this morning- 157->115->88, possible HIT due to Lovenox, hold lovenox. hematology consult appreciated; unlikely to be HIT, thrombocytopenia is chronic, suspect due to underlying Hep C - HIT-ab pending #Elevated troponins/new prolonged QTc- possible Nstemi. - appreciate cardiology consult; doubt primary DC, MIBI stress test once psych status is improved -troponins trended down - echo: with moderate global hypokinesis of the left ventricle, left systolic funciton reduced, elevated right vent function at 30-40, possible left to right shunt -- continue 75mg plavix, 81 mg asa daily - lipid panel wnl, A1c 5.1, not diabetic - avoid medications that prolong QT (methadone, lithium, seroquel, zofran) #ETOH withdrawal - CIWA score 4, due to agitation place on librium taper #Methadone maintenance - hold for now due to QTc, ativan 2mg po q6h prn for withdrawal sx with librium taper, Dr. Car consulted for evaluation given QTc, concern over restarting methadone - Dr. car consult; continue librium taper. #bacterial vaginosis - treat with metrogel VG qhs #Smoking - declined nicotine patch, will provide smoking cessation information at discharge #diet - regular #dvt: lovenox Visit type - Emergency Visit Emergency Visit: No - New Patient This patient is new to me today: No - Critical Care Critical Care patient: No
--- NOTE | 2017-01-04 13:19 | CONSULT ---
Consult Detox [facility] Reason for Current Admission/Consult: Alcohol withdrawal sx. Referred by:: Nona Raphael Res - History History of Present Illness: $6 y/o woman admitted because of abdominal pain,nausea & vomiting.Pt. reports receiving methadone 60mg daily,unverified. - History Source History Provided By: Patient, Medical Record - Alcohol/Substance Use Hx Alcohol Use: Yes (1 PINT [id number] 12/31) - Current Drug/Alcohol Use Alcohol Route: Oral Frequency: Daily Amount used: vodka 2 quarts Age of first use: 19 Date of Last Use: 01/02/17 - Past Medical History Gastrointestinal: Yes: Pancreatitis Hepatobiliary: Yes: Hepatitis C ...LMP: 11/11/14 Infectious Disease: Yes: HIV Psych: Yes: Addictions, Bipolar - Past Surgical History Past Surgical History: Yes: None - Significant Medical Findings: Laboratory Last Values WBC 7.3 K/mm3 (4.0-10.0) D 01/03/17 07:50 RBC 4.08 M/mm3 (3.60-5.2) 01/03/17 07:50 Hgb 13.4 GM/dL (10.7-15.3) 01/03/17 07:50 Hct 39.9 % (32.4-45.2) 01/03/17 07:50 MCV 97.8 fl (80-96) H 01/03/17 07:50 MCHC 33.6 g/dl (32.0-36.0) 01/03/17 07:50 RDW 14.5 % (11.6-15.6) 01/03/17 07:50 Plt Count 88 K/MM3 (134-434) L D 01/03/17 07:50 MPV 11.0 fl (7.5-11.1) 01/03/17 07:50 Neutrophils % 61.4 % (42.8-82.8) D 01/03/17 07:50 Lymphocytes % 32.5 % (8-40) D 01/03/17 07:50 Monocytes % 5.3 % (3.8-10.2) 01/03/17 07:50 Eosinophils % 0.5 % (0-4.5) D 01/03/17 07:50 Basophils % 0.3 % (0-2.0) 01/03/17 07:50 Sodium 142 mmol/L (136-145) 01/03/17 07:50 Potassium 3.5 mmol/L (3.5-5.1) 01/03/17 07:50 Chloride 107 mmol/L (98-107) 01/03/17 07:50 Carbon Dioxide 26 mmol/L (21-32) 01/03/17 07:50 Anion Gap 9 (8-16) 01/03/17 07:50 BUN 10 mg/dL (7-18) 01/03/17 07:50 Creatinine 0.7 mg/dL (0.55-1.02) 01/03/17 07:50 Creat Clearance w eGFR > 60 (>60) 01/03/17 07:50 Random Glucose 83 mg/dL (74-106) D 01/03/17 07:50 Hemoglobin A1c % 5.1 % (4.8-6.0) 01/02/17 21:40 Lactic Acid 1.524 mmol/L (0.4-2.0) 01/02/17 21:40 Calcium 7.9 mg/dL (8.5-10.1) L 01/03/17 07:50 Magnesium 2.0 mg/dL (1.8-2.4) D 01/02/17 09:45 Total Bilirubin 0.9 mg/dL (0.2-1.0) 01/03/17 07:50 AST 29 U/L (15-37) D 01/03/17 07:50 ALT 29 U/L (12-78) D 01/03/17 07:50 Alkaline Phosphatase 104 U/L (45-117) D 01/03/17 07:50 CK-MB (CK-2) 10.754 ng/ml (0.5-3.6) H 01/03/17 07:50 Troponin I 0.80 ng/ml (0.00-0.05) H* 01/02/17 21:40 Total Protein 6.7 g/dl (6.4-8.2) 01/03/17 07:50 Albumin 3.2 g/dl (3.4-5.0) L D 01/03/17 07:50 Triglycerides 82 mg/dL (35-160) 01/02/17 21:40 Cholesterol 174 mg/dL (50-200) 01/02/17 21:40 Total LDL Cholesterol 81 mg/dL (5-100) 01/02/17 21:40 HDL Cholesterol 85 mg/dL (40-60) H 01/02/17 21:40 Lipase 329 U/L (73-393) 01/02/17 04:20 Urine Color Ltyellow 01/03/17 18:20 Urine Appearance Clear 01/03/17 18:20 Urine pH 7.0 (5.0-8.0) 01/03/17 18:20 Ur Specific Black 1.010 (1.001-1.035) 01/03/17 18:20 Urine Protein Negative (NEGATIVE) 01/03/17 18:20 Urine Glucose (UA) Negative (NEGATIVE) 01/03/17 18:20 Urine Ketones Negative (NEGATIVE) 01/03/17 18:20 Urine Blood Negative (NEGATIVE) 01/03/17 18:20 Urine Nitrite Negative (NEGATIVE) 01/03/17 18:20 Urine Bilirubin Negative (NEGATIVE) 01/03/17 18:20 Urine Urobilinogen 4.0 e.u/dl E.U./dl (0.2-1.0) H 01/03/17 18:20 Ur Leukocyte Esterase Trace (NEGATIVE) H 01/03/17 18:20 Urine RBC 1 /hpf (0-3) 01/03/17 18:20 Urine WBC 4 /hpf (3-5) 01/03/17 18:20 Ur Epithelial Cells Moderate /hpf (FEW) 01/03/17 18:20 Urine Bacteria Rare /hpf (NONE SEEN) 01/02/17 05:20 Hyaline Casts 15 /lpf 01/02/17 05:20 Urine Mucus Many 01/02/17 05:20 Urine HCG, Qual Negative 01/02/17 05:20 HIV 1&2 Antibody Screen Negative 01/02/17 18:40 HIV P24 Antigen Negative 01/02/17 18:40 CIWA Score - CIWA Score Nausea/Vomitin Muscle Tremors: 5 Anxiety: 6 Agitation: 5 Paroxysmal Sweats: 4-Forehead w/Sweat Beads Orientation: 4Disoriented Place/Person Tacttile Disturbances: 0-None Auditory Disturbances: 3-Moderate Harsh/Frighten Visual Disturbances: 4-Moderate Hallucinations Headache: 0-None Present CIWA-Ar Total Score: 34 Assessment Plan - Diagnosis (1) Alcohol dependence with withdrawal delirium Status: Acute - Medication Detox Regimen/Protocol: Danika
[2017-01-04] MEDS ORDERED: chlordiazePOXIDE HCL 25 MG CAPSULE ONE (13:43)
[2017-01-04] MEDS: METHADONE HCL 10 MG TABLET PO SCH (15:46)
--- NOTE | 2017-01-04 17:24 | PN ---
Teaching Attending Note Name of Resident: Curly Raphael ATTENDING PHYSICIAN STATEMENT I saw and evaluated the patient. I reviewed the resident's note and discussed the case with the resident. I agree with the resident's findings and plan as documented. Patient is comfortable with no acute distress. No fever or chills, no shortness of breath. Vital Signs Temperature 97.3 F L 01/04/17 14:00 Pulse Rate 108 H 01/04/17 14:00 Respiratory Rate 18 01/04/17 14:00 Blood Pressure 121/94 01/04/17 14:00 O2 Sat by Pulse Oximetry (%) 96 01/04/17 09:00 CBCD WBC 7.3 K/mm3 (4.0-10.0) D 01/03/17 07:50 RBC 4.08 M/mm3 (3.60-5.2) 01/03/17 07:50 Hgb 13.4 GM/dL (10.7-15.3) 01/03/17 07:50 Hct 39.9 % (32.4-45.2) 01/03/17 07:50 MCV 97.8 fl (80-96) H 01/03/17 07:50 MCHC 33.6 g/dl (32.0-36.0) 01/03/17 07:50 RDW 14.5 % (11.6-15.6) 01/03/17 07:50 Plt Count 88 K/MM3 (134-434) L D 01/03/17 07:50 MPV 11.0 fl (7.5-11.1) 01/03/17 07:50 CMP Sodium 142 mmol/L (136-145) 01/03/17 07:50 Potassium 3.5 mmol/L (3.5-5.1) 01/03/17 07:50 Chloride 107 mmol/L (98-107) 01/03/17 07:50 Carbon Dioxide 26 mmol/L (21-32) 01/03/17 07:50 Anion Gap 9 (8-16) 01/03/17 07:50 BUN 10 mg/dL (7-18) 01/03/17 07:50 Creatinine 0.7 mg/dL (0.55-1.02) 01/03/17 07:50 Creat Clearance w eGFR > 60 (>60) 01/03/17 07:50 Random Glucose 83 mg/dL (74-106) D 01/03/17 07:50 Calcium 7.9 mg/dL (8.5-10.1) L 01/03/17 07:50 Total Bilirubin 0.9 mg/dL (0.2-1.0) 01/03/17 07:50 AST 29 U/L (15-37) D 01/03/17 07:50 ALT 29 U/L (12-78) D 01/03/17 07:50 Alkaline Phosphatase 104 U/L (45-117) D 01/03/17 07:50 Total Protein 6.7 g/dl (6.4-8.2) 01/03/17 07:50 Albumin 3.2 g/dl (3.4-5.0) L D 01/03/17 07:50 CARDIAC ENZYMES Troponin I 0.80 ng/ml (0.00-0.05) H* 01/02/17 21:40 Current Medications Generic Name Dose Route Start Last Admin Trade Name Freq PRN Reason Stop Dose Admin Acetaminophen 650 mg 01/02/17 14:08 01/03/17 05:33 Tylenol - PO 650 mg Q6H PRN Administration FEVER OR PAIN Aspirin 81 mg 01/03/17 10:00 01/04/17 09:19 Ecotrin - PO 81 mg DAILY GONZALEZ Administration Chlordiazepoxide HCl 25 mg 01/03/17 13:43 Librium - PO 01/06/17 13:42 Q4H PRN WITHDRAWAL(CONT SUBST) Chlordiazepoxide HCl 25 mg 01/04/17 17:00 01/04/17 17:23 Librium - PO 01/05/17 11:01 25 mg [id number] GONZALEZ Administration Chlordiazepoxide HCl 15 mg 01/05/17 17:00 Librium - PO 01/06/17 11:01 [id number] GONZALEZ Clopidogrel Bisulfate 75 mg 01/03/17 10:00 01/04/17 09:19 Plavix - PO 75 mg DAILY GONZALEZ Administration Lorazepam 2 mg 01/04/17 02:57 01/04/17 16:12 Ativan - PO 2 mg Q6H PRN Administration WITHDRAWAL(CONT SUBST) Methadone HCl 20 mg 01/04/17 15:30 01/04/17 15:46 Dolophine - PO 20 mg DAILY@0600 GONZALEZ Administration Metronidazole 1 applic 01/03/17 22:00 01/03/17 22:47 Metrogel 0.75% Vaginal Gel - VG 01/07/17 22:01 1 applic HS GONZALEZ Administration Pantoprazole Sodium 40 mg 01/04/17 10:15 01/04/17 10:45 Protonix - PO 40 mg BID GONZALEZ Administration Home Medications Medication Instructions Recorded Emtricitabine/Tenofovir [Truvada -] 0 mg PO DAILY 09/13/16 Methadone [Dolophine -] 60 mg PO DAILY 09/13/16 Gabapentin [Neurontin] 600 mg PO TID #30 tablet 10/11/16 [place] Carbonate [Eskalith -] 0 mg PO DAILY #30 capsule 10/11/16 Quetiapine Fumarate [Seroquel -] 50 mg PO AM #30 tablet 10/11/16 Quetiapine Fumarate [Seroquel] 200 tab PO HS #30 tablet 10/11/16 Sertraline HCl [Zoloft] 100 mg PO HS #30 tablet 10/11/16 Ondansetron HCl [Zofran] 4 mg PO TID PRN #12 tablet 01/01/17 Pantoprazole Sodium [Protonix] 40 mg PO DAILY #30 tablet. 01/01/17 Laboratory Tests 01/02/17 01/02/17 01/02/17 06:15 09:45 09:45 Hemoglobin A1c % Lactic Acid 2.229 H* 2.041 H* Troponin I 1.64 H* Triglycerides Cholesterol Total LDL Cholesterol HDL Cholesterol Hep-Induced Plt Ab Rapid Chlamydia Competition HIV 1&2 Antibody Screen HIV P24 Antigen N. gonorrhoeae (KEDAR) 01/02/17 01/02/17 01/02/17 12:05 16:00 18:40 Hemoglobin A1c % Lactic Acid Troponin I 1.28 H* Triglycerides Cholesterol Total LDL Cholesterol HDL Cholesterol Hep-Induced Plt Ab Rapid Chlamydia Competition Pending HIV 1&2 Antibody Screen Negative HIV P24 Antigen Negative N. gonorrhoeae (KEDAR) Pending 01/02/17 01/02/17 01/02/17 21:40 21:40 21:40 Hemoglobin A1c % Lactic Acid 1.524 Troponin I 0.80 H* Triglycerides 82 Cholesterol 174 Total LDL Cholesterol 81 HDL Cholesterol 85 H Hep-Induced Plt Ab Rapid Chlamydia Competition HIV 1&2 Antibody Screen HIV P24 Antigen N. gonorrhoeae (KEDAR) 01/02/17 01/03/17 21:40 10:08 Hemoglobin A1c % 5.1 Lactic Acid Troponin I Triglycerides Cholesterol Total LDL Cholesterol HDL Cholesterol Hep-Induced Plt Ab Rapid Pending Chlamydia Competition HIV 1&2 Antibody Screen HIV P24 Antigen N. gonorrhoeae (K[place]AR) ASSESSMENT AND PLAN: Patient is a 46 yr old woman with ETOH abuse, methadone maintenance, bipolar d/o , presents with epigastric pain and vomiting for 2 days, found to have prolonged QTc. # Acute Thrombocytopenia possible due to be getting Lovenox, EToH use. Discussed with regarding acute thrombocytopenia, came in with platelets of 157---> now 88K, ordered Hit2 stat, as per to monitor platelets and continue Lovenox for now, if further drop will stop Lovenox. on the case.Please monitor Platelets if further drop discontinue and discuss with ceramic coater and Improvement Coordinator and HIT2 ordered. #Elevated troponins possible NTSMI /new prolonged QTc was 550--> today was 505 repeat EKG in am ; can't use Methadone for now since can cause further QTc prolongation cardiology consult appreciated; MIBI stress as per ceramic coater in 1-2 days once patient is more stable ; Echo: with moderate global hypokinesis of the left ventricle, left systolic funciton reduced, elevated right vent function at 30-40, possible left to right shunt. On Plavix continue 75mg plavix, 81 mg asa daily . avoid medications that prolong QT (methadone, lithium, seroquel, zofran) #Lactic acidosis - resolved, s/p IVF #ETOH withdrawal - on alcohol detox Librium protocol continue check , mag, phos level ; continue ativan 2mg po q6h prn for withdrawal sx #Methadone maintenance - hold for now due to QTc prolongation further, Dr. Gil consulted for evaluation given QTc; Repeat EKG in am #c/o vaginal discharge Clue cells on gram stain, treat with metrogel VG qhs #Smoking ,refusing nicotine patch, smoking cessation information at discharge #diet - regular #dvt: on full dose lovenox
--- NOTE | 2017-01-04 18:01 | PN ---
Mental Health Exam - Mental Status Exam Alert and Oriented to: Time (disorientated this am. ), Place, Person ( disorientated ) Cognitive Function: Impaired Patient Appearance: Bizarre Mood: Hostile, Expansive, Irritable Affect: Labile Patient Behavior: Combative (trying to get out of of lucho. ), Suspicious Speech Pattern: Unclear, Slurred, Rambling, Excessive, Tangential Voice Loudness: Moderately Loud Thought Process: Circumstantial, Loose Associations, Tangential, Disorganized, Disoriented Thought Disorder: Not Present Hallucinations: None (to withrawl symptoms.), Auditory Suicidal Ideation: None Homicidal Ideation: None Insight/Judgement: Impaired
--- NOTE | 2017-01-04 18:07 | PN ---
Progress Note, Physician Chief Complaint: evaluate mental status. "give me aknife to take off the lucho:" "i see Landin my , come on lets go" Restless in bed, eating snack foods in bed. "i get sick each time i come to see my mother". History of Present Illness: Client is a patient at [facility] services on [address], near [facility] in [place], [place]. Last medicated there om december 29 per clinic with 40 mg methadone. Unclear if any psychiatry hitory. - Current Medication List Current Medications: Active Medications Acetaminophen (Tylenol -) 650 mg PO Q6H PRN PRN Reason: FEVER OR PAIN Last Admin: 01/03/17 05:33 Dose: 650 mg Aspirin (Ecotrin -) 81 mg PO DAILY [facility] Last Admin: 01/04/17 09:19 Dose: 81 mg Chlordiazepoxide HCl (Librium -) 25 mg PO Q4H PRN PRN Reason: WITHDRAWAL(CONT SUBST) Stop: 01/06/17 13:42 Chlordiazepoxide HCl (Librium -) 25 mg PO [id number] [facility] Stop: 01/05/17 11:01 Last Admin: 01/04/17 17:23 Dose: 25 mg Chlordiazepoxide HCl (Librium -) 15 mg PO [id number] [facility] Stop: 01/06/17 11:01 Clopidogrel Bisulfate (Plavix -) 75 mg PO DAILY [facility] Last Admin: 01/04/17 09:19 Dose: 75 mg Lorazepam (Ativan -) 2 mg PO Q6H PRN PRN Reason: WITHDRAWAL(CONT SUBST) Last Admin: 01/04/17 16:12 Dose: 2 mg Methadone HCl (Dolophine -) 20 mg PO DAILY@0600 [facility] Last Admin: 01/04/17 15:46 Dose: 20 mg Metronidazole (Metrogel 0.75% Vaginal Gel -) 1 applic VG HS [facility] Stop: 01/07/17 22:01 Last Admin: 01/03/17 22:47 Dose: 1 applic Pantoprazole Sodium (Protonix -) 40 mg PO BID [facility] Last Admin: 01/04/17 10:45 Dose: 40 mg - Objective Vital Signs: Vital Signs Temperature 97.3 F L 01/04/17 14:00 Pulse Rate 108 H 01/04/17 14:00 Respiratory Rate 18 01/04/17 14:00 Blood Pressure 121/94 01/04/17 14:00 O2 Sat by Pulse Oximetry (%) 96 01/04/17 09:00 Neurological: Yes: Ataxia, Unsteady Gait Psychiatric: Yes: Agitated (wanting to get out of restraint.) Labs: CBC, BMP 01/03/17 07:50 01/03/17 07:50 Assessment/Plan patient too methadone 20mg today, ativan 2mg q 6 hours and librium 25mg q 6. Stat dose of vistril 50mg today, may have a repeat dose of same. Freqyemaria elena rounding due to safety issues with lucho restraint. Spoke with Farzana TREVINO on floor.
[2017-01-04] MEDS: chlordiazePOXIDE HCL 25 MG CAPSULE PO PRN (20:05)
[2017-01-04] MEDS ORDERED: LORAZEPAM CARPU-JECT 2 MG/ML DISP.SYRIN IM ONE (21:50)
[2017-01-04] MEDS: metroNIDAZOLE 0.75% VAGINAL GEL 70 GM TUBE VG SCH (22:00)
[2017-01-05] MEDS: chlordiazePOXIDE HCL 25 MG CAPSULE PO SCH ×2 (04:58→10:33)
[2017-01-05] MEDS: METHADONE HCL 10 MG TABLET PO SCH (05:34)
--- NOTE | 2017-01-05 07:29 | PN ---
Physical Exam: SUBJECTIVE: Patient seen and examined sleeping comfortable, difficult to arouse, no acute distress. in lucho. As per 1:1 at bedside, pt was combative throughout night, falling asleep at 4am. OBJECTIVE: Vital Signs Period Temp Pulse Resp BP Sys/Moore Pulse Ox Last 24 Hr 97.0 F-98.4 F 88-108 18-20 110-126/86-94 96-96 GENERAL: The patient is sleeping in no acute distress. HEAD: Normal with no signs of trauma. EYES: PERRL, extraocular movements intact, sclera anicteric, conjunctiva clear. No ptosis. ENT: oropharynx clear without exudates, eduntulism, moist mucous membranes. LUNGS: Breath sounds equal, clear to auscultation bilaterally, no wheezes, no crackles, no accessory muscle use. HEART: Regular rate and rhythm, S1, S2 without murmur, rub or gallop. ABDOMEN: Soft, nondistended, normoactive bowel sounds EXTREMITIES: 2+ pulses, warm, well-perfused, no edema. erythema and lesion in left lower leg improved Laboratory Results - last 24 hr 01/03/17 01/03/17 07:50 07:50 WBC 7.3 D RBC 4.08 Hgb 13.4 Hct 39.9 MCV 97.8 H MCHC 33.6 RDW 14.5 Plt Count 88 L D MPV 11.0 Neutrophils % 61.4 D Lymphocytes % 32.5 D Monocytes % 5.3 Eosinophils % 0.5 D Basophils % 0.3 CK-MB (CK-2) 10.754 H Active Medications Generic Name Dose Route Start Last Admin Trade Name Terranceq PRN Reason Stop Dose Admin Acetaminophen 650 mg 01/02/17 14:08 01/03/17 05:33 Tylenol - PO 650 mg Q6H PRN Administration FEVER OR PAIN Aspirin 81 mg 01/03/17 10:00 01/04/17 09:19 Ecotrin - PO 81 mg DAILY GONZALEZ Administration Chlordiazepoxide HCl 25 mg 01/03/17 13:43 01/04/17 20:05 Librium - PO 01/06/17 13:42 25 mg Q4H PRN Administration WITHDRAWAL(CONT SUBST) Chlordiazepoxide HCl 25 mg 01/04/17 17:00 01/05/17 04:58 Librium - PO 01/05/17 11:01 25 mg [id number] GONZALEZ Administration Chlordiazepoxide HCl 15 mg 01/05/17 17:00 Librium - PO 01/06/17 11:01 [id number] GONZALEZ Clopidogrel Bisulfate 75 mg 01/03/17 10:00 01/04/17 09:19 Plavix - PO 75 mg DAILY GONZALEZ Administration Lorazepam 2 mg 01/04/17 02:57 01/04/17 16:12 Ativan - PO 2 mg Q6H PRN Administration WITHDRAWAL(CONT SUBST) Methadone HCl 20 mg 01/04/17 15:30 01/05/17 05:34 Dolophine - PO 20 mg DAILY@0600 GONZALEZ Administration Metronidazole 1 applic 01/03/17 22:00 01/04/17 22:00 Metrogel 0.75% Vaginal Gel - VG 01/07/17 22:01 1 applic HS GONZALEZ Administration Pantoprazole Sodium 40 mg 01/04/17 10:15 01/04/17 22:02 Protonix - PO 40 mg BID GONZALEZ Administration ASSESSMENT/PLAN: 46 yr old woman with ETOH abuse, methadone maintenance, bipolar d/o, presents with epigastric pain and vomiting for 2 days, found to have prolonged QTc. - pt has IV access, completed resting portion of stress test today. - QTc improved today, 484 #Bipolar d/o vs withdrawal from polysubstance abuse - continue librium, ativan - started on methadone 20mg po daily for withdrawal - Psych consult - on 1:1 for safety, lucho as needed #Abdominal pain - no repeat episodes of vomiting, benign abdominal exam - protonix 40mg po BID (pt cannot tolerate reglan, avoid zofran) - 100% of meals eaten recorded, possibly due to agitation over not receiving her methadone vs continued gastritis #Platelets decreased this morning- 157->115->88, possible HIT due to Lovenox, hold lovenox. hematology consult appreciated; unlikely to be HIT, thrombocytopenia is chronic, suspect due to underlying Hep C - HIT-ab pending #Elevated troponins/new prolonged QTc- possible Nstemi. - appreciate cardiology consult; doubt primary [place], MIBI stress test once psych status is improved - echo: with moderate global hypokinesis of the left ventricle, left systolic funciton reduced, elevated right vent function at 30-40, possible left to right shunt -- continue 75mg plavix, 81 mg asa daily - avoid medications that prolong QT (methadone, lithium, seroquel, zofran) #Methadone maintenance - 20mg po qdaily #bacterial vaginosis - treat with metrogel VG qhs for 5 days #Smoking - declined nicotine patch, will provide smoking cessation information at discharge #diet - regular #dvt: lovenox Visit type - Emergency Visit Emergency Visit: No - New Patient This patient is new to me today: No - Critical Care Critical Care patient: No
[2017-01-05 08:12] LABS: BASOPHIL 0.6 % (0-2.0); EOSINOPHIL 2.4 % (0-4.5); MCH 32.4 pg (25.7-33.7); MCHC 33.5 g/dl (32.0-36.0); MEAN CELL VOLUME 96.7 fl (80-96); MEAN PLT VOLUME 10.3 fl (7.5-11.1); NEUTROPHILS 56.4 % (42.8-82.8); PLATELET COUNT 144 K/MM3 (134-434); RDW 14.1 % (11.6-15.6); WHITE BLOOD COUNT 5.2 K/mm3 (4.0-10.0)
--- NOTE | 2017-01-05 09:08 | PN ---
Progress Note (short form) - Note Progress Note: Patient is in restraints and asleep. Vitals are stable. Selected Entries 01/04/17 01/05/17 21:00 06:00 Temperature 97.7 F Pulse Rate 91 H Blood Pressure 110/86 O2 Sat by Pulse 96 Oximetry (%) Laboratory Tests 01/03/17 01/05/17 01/05/17 10:08 05:45 05:45 WBC 5.2 Hct 37.5 Plt Count 144 D Potassium 3.2 L Creatinine Pending Creat Clearance w eGFR Pending Hep-Induced Plt Ab Rapid Pending CV: regular rate Chest : clear anteriorly without wheezing. TELE: reviewed. NSR, periods of sinus tachycardia. Artifact. Self limited run of PSVT w/ aberrancy vs NSVT difficult to distinguis due to artifactual baseline Assessment/Plan Abd pain-nothing acute on CT HIV Hep C Polysubstance abuse Bipolar disorder Elevated TnIs: ?NSTEMI Prolonged QT REC: 1. Continue ASA and Plavix At this point due to mental status, psych disorder, withdrawal sx no ischemic diagnostic studies have been possible. When mental status improves, will need stress MPI or cath-- to be discussed with patient. 2. Continue tele (if she allows)- has been pulling off leads. -Keep K+ >4, Mg2+ >2 -Try to wean methadone to lowest effective dose (methadone prolongs QT) -Avoid/eliminate other QT prolonging agents.
[2017-01-05 09:32] LABS: ALBUMIN 2.9 g/dl (3.4-5.0); ALK PHOS 85 U/L (45-117); ANION GAP 12 (8-16); BILIRUBIN,TOTAL 0.5 mg/dL (0.2-1.0); CALCIUM 8.3 mg/dL (8.5-10.1); CO2 22 mmol/L (21-32); CREATININE 0.5 mg/dL (0.55-1.02); GLUCOSE,RANDOM 88 mg/dL (74-106); MAGNESIUM 1.7 mg/dL (1.8-2.4); PHOSPHOROUS 3.7 mg/dL (2.5-4.9); SGOT/AST 22 U/L (15-37); SGPT/ALT 24 U/L (12-78); TOT PROT 5.8 g/dl (6.4-8.2)
[2017-01-05] MEDS: PANTOPRAZOLE 40 MG TABLET (FP) PO SCH ×2 (10:33→22:20)
[2017-01-05] MEDS: ASPIRIN COATED 81 MG TABLET.EC PO SCH (10:33)
[2017-01-05] MEDS: CLOPIDOGREL BISULFATE 75 MG TABLET (FP) PO SCH (10:33)
--- NOTE | 2017-01-05 14:12 | EKG ---
Test Reason : Blood Pressure : / mmHG Vent. Rate : 083 BPM Atrial Rate : 083 BPM P-R Int : 134 ms QRS Dur : 088 ms QT Int : 412 ms P-R-T Axes : 031 054 092 degrees QTc Int : 484 ms NORMAL SINUS RHYTHM NONSPECIFIC T WAVE ABNORMALITY PROLONGED QT ABNORMAL ECG WHEN COMPARED WITH ECG OF 04-JAN-2017 09:17, NO SIGNIFICANT CHANGE WAS FOUND Confirmed by NICOLE SÁNCHEZ, LIZZIE ([id number]) on 01/05/2017 2:11:47 PM Referred By: Mariann FOY Confirmed By:LIZZIE RIVERA MD
[2017-01-05] MEDS: LORazepam 1 MG TABLET PO PRN ×2 (14:15→22:22)
[2017-01-05] MEDS: chlordiazePOXIDE HCL 25 MG CAPSULE PO PRN (15:43)
[2017-01-05] MEDS: chlordiazePOXIDE 5 MG CAPSULE PO SCH ×2 (16:25→22:22)
[2017-01-05 17:14] LABS: TROPONIN I 0.14 ng/ml (0.00-0.05)
[2017-01-05] MEDS ORDERED: POTASSIUM CHLORIDE TABS 20 MEQ TABLET.ER (FP) PO ONE ×2 (18:30→22:15)
[2017-01-05] MEDS ORDERED: MAGNESIUM OXIDE 400 MG TABLET (FP) PO ONE ×2 (18:30→22:15)
--- NOTE | 2017-01-05 19:57 | PN ---
Teaching Attending Note Name of Resident: Curly Raphael ATTENDING PHYSICIAN STATEMENT I saw and evaluated the patient. I reviewed the resident's note and discussed the case with the resident. I agree with the resident's findings and plan as documented. SUBJECTIVE:was agitated early this am has pain all over her body . no fever or chills , has generalized abd pain OBJECTIVE: NAD CV: RRR Lungs: CTAB ext : no edema Abd : soft, TTP in all quadrants , nl BS ASSESSMENT AND PLAN: 46 yr old woman with ETOH abuse, methadone maintenance, bipolar d/o, presents with epigastric pain and vomiting for 2 days, found to have prolonged QTc and possible NSTEMI . 1- AMS : due to alcohol withdrawal , psych disorder . 2- ETOH withdrawal : cont librium taper 3- Possible NSTEMI: echo with mildly decreased EF. no wall motion Abn. stress test in progress cont ASA and plavix not on BB 4- thrombocytopenia : probably due to BM suppression from ETOH. resolved . resume Heprain aq HIT is unlikely . Abs pending 5- prolonged QT: due to meds. improved 484 today cont methadone at 20 . avoid other meds 6- Bacterial Vaginosis: metrogel for now OC #
[2017-01-05] MEDS: HEPARIN NA (PORCINE) 5,000 UNITS/ML 1ML VIAL SQ SCH (22:21)
[2017-01-05] MEDS: metroNIDAZOLE 0.75% VAGINAL GEL 70 GM TUBE VG SCH (22:23)
[2017-01-06] MEDS: chlordiazePOXIDE 5 MG CAPSULE PO SCH ×2 (06:37→11:37)
[2017-01-06] MEDS: METHADONE HCL 10 MG TABLET PO SCH (06:37)
[2017-01-06] MEDS: LORazepam 1 MG TABLET PO PRN (06:38)
[2017-01-06] MEDS: HEPARIN NA (PORCINE) 5,000 UNITS/ML 1ML VIAL SQ SCH ×3 (06:38→22:00)
[2017-01-06 09:14] LABS: MCH 32.7 pg (25.7-33.7); MCHC 33.6 g/dl (32.0-36.0); MEAN CELL VOLUME 97.3 fl (80-96); MEAN PLT VOLUME 9.6 fl (7.5-11.1); PLATELET COUNT 163 K/MM3 (134-434); RDW 14.1 % (11.6-15.6); WHITE BLOOD COUNT 5.3 K/mm3 (4.0-10.0)
[2017-01-06 09:32] LABS: CALCIUM 8.7 mg/dL (8.5-10.1); CREATININE 0.6 mg/dL (0.55-1.02)
--- NOTE | 2017-01-06 09:33 | PN ---
Progress Note (short form) - Note Progress Note: Seen and examine. Resting stress images done yesterday. LE venous duplex negative. TELE: NSR with artifact. REC: To complete stress images today. Further reccs pending above.
[2017-01-06] MEDS ORDERED: WATER IVPB ONE (10:00)
[2017-01-06] MEDS ORDERED: DIPYRIDAMOLE STRESS TEST IVPB ONE (10:00)
[2017-01-06] MEDS ORDERED: DEXTROSE 5% IVPB ONE (10:00)
--- NOTE | 2017-01-06 10:58 | EKG ---
Test Reason : Blood Pressure : / mmHG Vent. Rate : 069 BPM Atrial Rate : 069 BPM P-R Int : 138 ms QRS Dur : 086 ms QT Int : 436 ms P-R-T Axes : -05 051 073 degrees QTc Int : 467 ms NORMAL SINUS RHYTHM MINIMAL VOLTAGE CRITERIA FOR LVH, MAY BE NORMAL VARIANT BORDERLINE ECG WHEN COMPARED WITH ECG OF 05-JAN-2017 09:37, NONSPECIFIC T WAVE ABNORMALITY HAS REPLACED INVERTED T WAVES IN ANTERIOR LEADS Confirmed by KELLY LOBO MD ([id number]) on 01/06/2017 10:58:20 AM Referred By: OPAL SCHULTZ Confirmed By:KELLY LOBO MD
[2017-01-06] MEDS: PANTOPRAZOLE 40 MG TABLET (FP) PO SCH (11:36)
[2017-01-06] MEDS: ASPIRIN COATED 81 MG TABLET.EC PO SCH (11:36)
[2017-01-06] MEDS: CLOPIDOGREL BISULFATE 75 MG TABLET (FP) PO SCH (11:37)
[2017-01-06] MEDS ORDERED: hydrOXYzine PAMOATE 50 MG CAPSULE (FP) PO ONE (14:00)
--- NOTE | 2017-01-06 16:45 | PN ---
Mental Health Exam - Mental Status Exam Alert and Oriented to: Time, Place, Person Cognitive Function: Grossly Intact Patient Appearance: Disheveled (make up hastily applied.) Mood: Apprehensive Affect: Inappropriate, Labile (from tears to pressured speech.) Patient Behavior: Restless (wanting to walk down cardona, security and one to one in attendance.), Impulsive Speech Pattern: Slurred (mildly), Rambling, Tangential Voice Loudness: Moderately Loud Thought Process: Circumstantial, Loose Associations Thought Disorder: Not Present Hallucinations: None Suicidal Ideation: None Homicidal Ideation: None Insight/Judgement: Poor (client does not understand extent ofg her situation.) Sleep: Poorly, Difficulty falling asleep Appetite: Fair (mostly snack, sugar foods.) Muscle strength/Tone: Normal Gait/Station: Ataxic (posibley due to injest substance today.)
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
[2017-01-07] MEDS: metroNIDAZOLE 0.75% VAGINAL GEL 70 GM TUBE VG SCH (03:58)
[2017-01-07] MEDS: PANTOPRAZOLE 40 MG TABLET (FP) PO SCH ×2 (03:59→10:30)
[2017-01-07] MEDS: chlordiazePOXIDE 5 MG CAPSULE PO SCH ×4 (03:59→16:55)
[2017-01-07] MEDS: HEPARIN NA (PORCINE) 5,000 UNITS/ML 1ML VIAL SQ SCH ×2 (06:29→13:33)
[2017-01-07] MEDS: LORazepam 1 MG TABLET PO PRN ×2 (07:00→13:29)
[2017-01-07] MEDS: METHADONE HCL 10 MG TABLET PO SCH (07:00)
--- NOTE | 2017-01-07 09:07 | PN ---
Progress Note (short form) - Note Progress Note: Chart reviewed. No ischemia on stress test with Normal EF reported. Patient has removed her tele and by report of RN was brought alcohol by family member last night. As patient is not compliant with telemetry, would d/c it. No further cardiac diagnostics are planned. Awaiting Serotonin release assay as per Heme. Please call again as/if needed. Thanks.
--- NOTE | 2017-01-07 09:45 | EKG ---
Test Reason : Blood Pressure : / mmHG Vent. Rate : 083 BPM Atrial Rate : 083 BPM P-R Int : 138 ms QRS Dur : 084 ms QT Int : 394 ms P-R-T Axes : 056 059 071 degrees QTc Int : 462 ms NORMAL SINUS RHYTHM NORMAL ECG WHEN COMPARED WITH ECG OF 06-JAN-2017 10:37, NO SIGNIFICANT CHANGE WAS FOUND Confirmed by KELLY ADAIR MD ([id number]) on 01/07/2017 9:45:27 AM Referred By: CAR COWAN Confirmed By:KELLY ADAIR MD
[2017-01-07] MEDS: ASPIRIN COATED 81 MG TABLET.EC PO SCH (10:30)
[2017-01-07 14:36] VITALS: BP 111/64; PULSE 100; TEMP 97.3
--- NOTE | 2017-01-07 16:52 | PN ---
Progress Note (short form) - Note Progress Note: PAtient seen and examined No complaints Last Vital Signs Temp Pulse Resp BP Pulse Ox 97.3 F L 100 H 20 111/64 99 01/07/17 14:00 01/07/17 14:00 01/07/17 14:00 01/07/17 14:00 01/07/17 10:30 HEENT: SERA, EOM Intact Cor: RSR, No murmurs, No gallops Lungs: Clear to P&A Abd: Soft, Normal bowel sounds, No organomegaly Ext:No significant edema Current Medications Acetaminophen (Tylenol -) 650 mg PO Q6H PRN PRN Reason: FEVER OR PAIN Last Admin: 01/03/17 05:33 Dose: 650 mg Aspirin (Ecotrin -) 81 mg PO DAILY [facility] Last Admin: 01/07/17 10:30 Dose: 81 mg Chlordiazepoxide HCl (Librium -) 10 mg PO A2Q-TRW [facility] Stop: 01/07/17 17:01 Last Admin: 01/07/17 11:36 Dose: 10 mg Heparin Sodium (Porcine) (Heparin -) 5,000 unit SQ TID [facility] Last Admin: 01/07/17 13:33 Dose: Not Given Lorazepam (Ativan -) 2 mg PO Q6H PRN PRN Reason: WITHDRAWAL(CONT SUBST) Last Admin: 01/07/17 13:29 Dose: 2 mg Methadone HCl (Dolophine -) 20 mg PO DAILY@0600 [facility] Last Admin: 01/07/17 07:00 Dose: 20 mg Metronidazole (Metrogel 0.75% Vaginal Gel -) 1 applic VG HS [facility] Stop: 01/07/17 22:01 Last Admin: 01/07/17 03:58 Dose: Not Given Pantoprazole Sodium (Protonix -) 40 mg PO BID [facility] Last Admin: 01/07/17 10:30 Dose: 40 mg A/P 46 y/o patient with h/o HIV/HEp. C comes Thrombocytopenia--chronic, baseline --70s to 150s Suspect due to under lyong Hep. C/liver disease/HIV check B12/folate/TSH/ Unlikely HIT--false + HIT assay LALITO pending But as platelets are improving on heparin , and time frame aswell not c/w HIT ok to discharge
[2017-01-07] MEDS: ACETAMINOPHEN 325 MG TABLET (FP) PO PRN (16:55)
--- NOTE | 2017-01-07 17:09 | DS ---
Addendum entered and electronically signed by Scooby Murphy RES 01/07/17 18:34: left a message for patient for additional instructions which were: call back number left take only 20mg methadone do not take lithium do not take plavix please take aspirin Original Note: Physical Exam: SUBJECTIVE: Patient seen and examined at bedside no complaints OBJECTIVE: Vital Signs Period Temp Pulse Resp BP Sys/Moore Pulse Ox Last 24 Hr 97.3 F-98.2 F 79-100 18-20 111-130/60-78 99 PHYSICAL EXAM HEENT: SERA, CV: RRR No murmurs, No gallops Resp: CTAB Abd: Soft, Normal bowel sounds, No organomegaly Ext:No significant edema Skin: No rashes, Integument intact LABS HOSPITAL COURSE: Date of Admission:01/02/17 Date of Discharge: 01/07/17 patient was admitted with nausea vomiting and abdominal pain. During work up she was found to have prolonged QTc which improved after all her meds which prolong qtc were held. During her hospitalization she had a DVT study which was negative. She also was found to be drinking alcohol in her room while she was on CIWA protocol. Her methadone was also decreased. She was also presumed to have HIT after HIT Ab was positive however [facility] does not think she has HIT and a serotonin assay wass sent out which is still pending. She was discharged with follow up Minutes to complete discharge: 40 Discharge Summary Reason For Visit: ABDOMINAL PAIN/NAUSEA/VOMITING ALCOHOL ABUSE Current Active Problems Abdominal pain, epigastric (Acute) Alcohol dependence with withdrawal delirium (Acute) Nausea and vomiting (Acute) Alcohol abuse, continuous (Chronic) Condition: Stable - Instructions Diet, Activity, Other Instructions: please follow up with your primary care doctor follow up with your methadone program you need an EKG with your primary care doctor please make sure you see your doctos to get an EKG before starting your medications as they may affect your heart stay away from alcohol consider going to AA or NA Referrals: Georgie Cooley MD [Staff Physician] - 2 Weeks STAFF,NOT ON [Primary Care Provider] - Toni Quintanilla MD [Staff Physician] - 1 Week Disposition: HOME - Home Medications Comprehensive Discharge Medication List: Ambulatory Orders Emtricitabine/Tenofovir [Truvada -] 0 mg PO DAILY 09/13/16 Methadone [Dolophine -] 60 mg PO DAILY 09/13/16 Gabapentin [Neurontin] 600 mg PO TID #30 tablet 10/11/16 [place] Carbonate [Eskalith -] 0 mg PO DAILY #30 capsule 10/11/16 Ondansetron HCl [Zofran] 4 mg PO TID PRN #12 tablet 01/01/17 Pantoprazole Sodium [Protonix] 40 mg PO DAILY #30 tablet. 01/01/17 Acetaminophen [Tylenol .Regular Strength -] 650 mg PO Q6H PRN #0 tablet Clopidogrel Bisulfate [Plavix -] 75 mg PO DAILY tablet 01/07/17 Pantoprazole Sodium [Protonix -] 40 mg PO BID 01/07/17 This patient is new to me today: Yes Date on this admission: 01/07/17 Emergency Visit: Yes ED Registration Date: 01/02/17 Care time: The patient presented to the Emergency Department on the above date and was hospitalized for further evaluation of their emergent condition. Critical Care patient: No - Discharge Referral Referred to [facility] Med P.C.: No
--- NOTE | 2017-01-07 18:33 | PN ---
Teaching Attending Note Name of Resident: Scooby Murphy ATTENDING PHYSICIAN STATEMENT I saw and evaluated the patient. I reviewed the resident's note and discussed the case with the resident. I agree with the resident's findings and plan as documented. SUBJECTIVE: no pain , feels great . no hallucinations and no SI OBJECTIVE: NAD when evaluated around noon CV: RRR Lungs: CTAB ext: no edema Abd : soft, no TTP , NL BS ASSESSMENT AND PLAN: 46 yr old woman with ETOH abuse, methadone maintenance, bipolar d/o, presents with epigastric pain and vomiting for 2 days, found to have prolonged QTc and possible NSTEMI . 1- AMS: resolved .capable of making decisions 2- ETOH withdrawal :finished a course of librium today. She did drink alcohol in hospital though. no signs of withdrawal 3- Trop elevation : echo with mildly decreased EF. no wall motion Abn. Stress test with no ischemia cont ASA at dc . 4- Thrombocytopenia :likely form alcohol use. spoke to dr. Jacques. unlikely HIT , and pt is OK for dc 5- prolonged QT: due to meds. improved cont methadone at 20 . avoid other meds . cont off lithium 6- Bacterial Vaginosis: received metrogel for 5 days dc home today . dc med Rec has some mistakes . resident to call patient and advise , ( 20 of methadone , not 60 . no plavix. take ASpirin . dc lithium )
[2017-01-08] MEDS ORDERED: chlordiazePOXIDE 5 MG CAPSULE PO SCH (23:00)
[2017-01-11 08:09] LABS: HIGH DOSE HEPARIN SRA 2 % (0-20); LOW DOSE HEPARIN SRA 3 % (0-20)
== END 2017-01-07 17:45 | disposition home or self-care (01) | DRG 190 ==
LOC: JER 02:32 → JERBED 10:33 → UNDOADMOB 10:33 → J4W 12:54 → JERBED 12:54 → J4W 16:28 → JERBED 16:28 → OBSVTOIN 16:28 → JSAMEDAYSX 01-03 10:24 → J4W 01-03 10:25
PROVIDERS: ADMIT Internal Medicine; ATTEND Internal Medicine
PROC: HZ2ZZZZ Detoxification Services for Substance Abuse Treatment (ICD-10-PCS; principal; 2017-01-02)
DX: I21.4 Non-ST elevation (NSTEMI) myocardial infarction (principal); I10 Essential (primary) hypertension; F31.89 Other bipolar disorder; B19.20 Unspecified viral hepatitis C without hepatic coma; R11.2 Nausea with vomiting, unspecified; K29.60 Other gastritis without bleeding; F10.231 Alcohol dependence with withdrawal delirium; D64.9 Anemia, unspecified; F11.20 Opioid dependence, uncomplicated; F12.10 Cannabis abuse, uncomplicated; E87.2 Acidosis; D69.6 Thrombocytopenia, unspecified; Z21 Asymptomatic human immunodeficiency virus [HIV] infection status; N76.0 Acute vaginitis; R41.82 Altered mental status, unspecified
CPT/HCPCS: 36415; 71020-TC; 74176-TC; 78452-TC; 80048; 80053; 80061; 81003; 81015; 82542; 82550; 82553; 83036; 83605; 83690; 83721; 83735; 84100; 84484; 84703; 85025; 85027; 86022; 87040; 87070; 87077; 87086; 87205; 87389; 87491; 87591; 93005; 93010; 93017; 93306-TC; 93970-TC; 99285-25; A9502; J1245; J1644

== ENCOUNTER 2017-07-16 13:57 | Inpatient (IN) | payer OTHER ==
[2017-07-16 14:14] VITALS: BMI 28.3
[2017-07-16] MEDS ORDERED: SODIUM CHLORIDE 0.9% 1000 ML INFUS.BAG IV ONE ×3 (14:16→17:29)
[2017-07-16] MEDS ORDERED: ONDANSETRON 4 MG/2 ML VIAL ONE ×2 (14:36→15:29)
[2017-07-16 14:40] LABS: BASOPHIL 0.4 % (0-2.0); MCH 32.7 pg (25.7-33.7); MCHC 33.4 g/dl (32.0-36.0); MEAN CELL VOLUME 98.1 fl (80-96); MEAN PLT VOLUME 9.8 fl (7.5-11.1); NEUTROPHILS 82.1 % (42.8-82.8); PLATELET COUNT 115 K/MM3 (134-434); RDW 14.8 % (11.6-15.6); WHITE BLOOD COUNT 6.7 K/mm3 (4.0-10.0)
[2017-07-16] MEDS ORDERED: HYDROmorphone HCL CARPU-JECT 1 MG/1 ML DISP.SYRIN ONE ×2 (14:53→16:31)
--- NOTE | 2017-07-16 14:59 | PDOC ---
Attending Attestation - HPI HPI: 07/16/17 15:38 The patient is a 46 year old female, with significant past medical history of pancreatitis, Hepatitis C, alcohol abuse, hypertension, depression, bipolar, who presents to the emergency room complaining of nonradiating epigastric pain, nausea, multiple episodes of vomiting, and diarrhea starting this morning. Denies fever, chills. Denies chest pain, SOB. Social Hx: Alcohol abuse. IV heroin use. - Physicial Exam PE: 07/16/17 15:38 Constitutional: Awake, alert, oriented. No acute distress. Head: Normocephalic. Atraumatic Eyes: PERRL. EOMI. Conjunctivae are not pale. ENT: Mucous membranes are moist and intact. Posterior pharynx without exudates or erythema. Uvula midline. Neck: Supple. Full ROM. No lymphadenopathy. Cardiovascular: Tachycardic. Regular rhythm. S1, S2 regular. Distal pulses are 2+ and symmetric. Pulmonary/Chest: No evidence of respiratory distress. Clear to auscultation bilaterally No wheezing, rales or rhonchi. Abdominal: Soft and non-distended.Tender in the epigastric region. No rebound , guarding or rigidity. No organomegaly. No palpable masses. Good bowel sounds. Back: No CVA tenderness. Musculoskeletal: No edema. No cyanosis. No clubbing. Full range of motion in all extremities. Nocalf tenderness. Radial/pedal pulses are intact and 2+ bilaterally Skin: Skin is warm and dry. No petechiae. No purpura. Neurological: Alert and oriented to person, place, and time. Cranial nerves II -XII are grossly intact. Normal speech. Strength is grossly symmetric. No sensory deficits. Psychiatric: Good eye contact. Normal interaction, affect and behavior. <Radha Bowen - Last Filed: 07/16/17 15:38> - Resident Resident Name: Ghassan Mello - ED Attending Attestation I have performed the following: I have examined & evaluated the patient, The case was reviewed & discussed with the resident, I agree w/resident's findings & plan, Exceptions are as noted - Medical Decision Making 07/16/17 15:30 a/p: 46yo female with recent etoh use and hx of pancreatitis now with n/v/ epigastric abd pain - similar to episodes of pancreatitis in the past -labs -ivf hydration -zofran -pain control -reassess 07/16/17 17:36 pt with elevated lipase, persisten n/v despite multiple doses of zofran and anti -emetics. will need admission. case discussed with IM - accepts pt to service. <Jaz Petty - Last Filed: 07/16/17 17:39> Discharge Disposition <Radha Bowen - Last Filed: 07/16/17 15:38> - Discharge Dispostion Last Admission D/C Date: 01/07/17 Admit: Yes <Jaz Petty - Last Filed: 07/16/17 17:39> - Diagnosis Alcoholic pancreatitis - Discharge Dispostion Condition at time of disposition: Guarded Heart Score/ECG Review - ECG Intrepretation Comment:: 07/16/17 16:34 sinus at 77, nl axis, nl interval, lvh, t wave inversions v2, no other acute findings <Jaz Petty - Last Filed: 07/16/17 17:39>
[2017-07-16] MEDS ORDERED: ONDANSETRON 4 MG/2 ML VIAL IVPUSH ONE ×2 (15:00→15:27)
[2017-07-16] MEDS ORDERED: HYDROmorphone HCL CARPU-JECT 1 MG/1 ML DISP.SYRIN IVPUSH ONE ×2 (15:00→16:30)
--- NOTE | 2017-07-16 15:12 | PDOC ---
History of Present Illness - General Chief Complaint: Pain, Acute Stated Complaint: ABDOMINAL PAIN/NAUSEA Time Seen by Provider: 07/16/17 14:03 History Source: Patient Exam Limitations: No Limitations - History of Present Illness Initial Comments: 07/16/17 15:07 The patient is a 46F with a PMH of HTN, alcoholism, IVDA, and hep c who presents with abdominal pain, nausea, and vomiting. The patient is a methadone clinic patient but has not had her methadone yesterday or today. The pain started at 5 am, is located in her epigastric region, radiates to her back, and does not feel better or worse with any medications, foods, or movements/ positions. She is also complaining of diarrhea which started at the same time. She has been vomiting which is NBNB. Soc: no IVDU currently, drinks 1 fifth of liquor/day; last drink "few" days ago Past History - Past Medical History Allergies/Adverse Reactions: Allergies Allergy/AdvReac Type Severity Reaction Status Date / Time prochlorperazine maleate Allergy Severe DYSTONIA Verified 07/16/17 14:09 [From Compazine] metoclopramide HCl Allergy Verified 07/16/17 14:09 [From Reglan] prochlorperazine edisylate Allergy Verified 07/16/17 14:09 [From Compazine] Home Medications: Ambulatory Orders Emtricitabine/Tenofovir [Truvada -] 0 mg PO DAILY 09/13/16 Methadone [Dolophine -] 60 mg PO DAILY 09/13/16 Gabapentin [Neurontin] 600 mg PO TID #30 tablet 10/11/16 [place] Carbonate [Eskalith -] 0 mg PO DAILY #30 capsule 10/11/16 Ondansetron HCl [Zofran] 4 mg PO TID PRN #12 tablet 01/01/17 Pantoprazole Sodium [Protonix] 40 mg PO DAILY #30 tablet. 01/01/17 Acetaminophen [Tylenol .Regular Strength -] 650 mg PO Q6H PRN #0 tablet Clopidogrel Bisulfate [Plavix -] 75 mg PO DAILY tablet 01/07/17 Pantoprazole Sodium [Protonix -] 40 mg PO BID 01/07/17 Anemia: Yes (H/O) Asthma: No Cardiac Disorders: No CVA: No COPD: No CHF: No Dementia: No Diabetes: No GI Disorders: No Disorders: No HTN: No Hypercholesterolemia: No Kidney Stones: No Liver Disease: Yes (HEP C) Psychiatric Problems: Yes (BIPOLAR) Suicide Attempt (Hx): No (DENIES) Seizures: No Thyroid Disease: No - Surgical History Abdominal Surgery: No Appendectomy: No Cardiac Surgery: No Cholecystectomy: No Lung Surgery: No Neurologic Surgery: No Orthopedic Surgery: No - Reproductive History (#): 13 Para: 11 PID: No - Psycho/Social/Smoking Cessation Hx Anxiety: No Suicidal Ideation: No Smoking History: Current every day smoker Have you smoked in the past 12 months: Yes Number of Cigarettes Smoked Daily: 10 Information on smoking cessation initiated: No 'Breaking Loose' booklet given: 12/29/15 Hx Alcohol Use: Yes (1 PINT [id number] 12/31) Drug/Substance Use Hx: Yes Substance Use Type: Alcohol, Heroin, Opiates Hx Substance Use Treatment: Yes Review of Systems - Review of Systems Able to Perform ROS?: Yes Is the patient limited [place] proficient: No Constitutional: No: Chills, Fever Respiratory: Yes: Shortness of Breath. No: Cough Cardiac (ROS): No: Chest Pain ABD/GI: Yes: Diarrhea, Nausea, Vomiting. No: Constipated : No: Burning, Dysuria, Discharge Neurological: No: Headache, Numbness, Tingling, Weakness *Physical Exam - Vital Signs Last Vital Signs Temp Pulse Resp BP Pulse Ox 98.5 F 80 20 150/70 100 07/16/17 14:10 07/16/17 14:10 07/16/17 14:10 07/16/17 14:10 07/16/17 14:10 - Physical Exam General Appearance: Yes: Nourished, Disheveled HEENT: positive: Normal Voice, Hearing Grossly Normal Respiratory/Chest: positive: Lungs Clear, Normal Breath Sounds. negative: Chest Tender Cardiovascular: positive: Regular Rhythm, Regular Rate, S1, S2. negative: Diastolic Murmur, Systolic Murmur Gastrointestinal/Abdominal: positive: Normal Bowel Sounds, Tender (tender to deep palpation in epigastric region), Soft, Tenderness. negative: Protuberent, Distended, Guarding, Rebound Extremity: negative: Coldness, Swelling, Calf Tenderness Integumentary: positive: Dry, Warm Neurologic: positive: Fully Oriented, Alert, Normal Mood/Affect, Motor Strength 5/5 ED Treatment Course - LABORATORY CBC & Chemistry Diagram: 07/16/17 14:30 07/16/17 15:44 - ADDITIONAL ORDERS Additional order review: Laboratory Results 07/16/17 07/16/17 14:30 14:30 Sodium Cancelled Potassium Cancelled Chloride Cancelled Carbon Dioxide Cancelled Anion Gap Cancelled BUN Cancelled Creatinine Cancelled Creat Clearance w eGFR Cancelled Random Glucose Cancelled Calcium Cancelled Total Bilirubin Cancelled AST Cancelled ALT Cancelled Alkaline Phosphatase Cancelled Total Protein Cancelled Albumin Cancelled Lipase Cancelled Alcohol, Quantitative Cancelled 07/16/17 14:30 RBC 4.59 D MCV 98.1 H MCHC 33.4 RDW 14.8 MPV 9.8 Neutrophils % 82.1 D Lymphocytes % 15.4 D Monocytes % 2.1 L Eosinophils % 0.0 D Basophils % 0.4 Medical Decision Making - Medical Decision Making 07/16/17 15:12 THe patient is a 46F with a PMH of alcoholism who presents with epigastric pain since this morning. Her last drink was a "few days ago". This is most likely pancreatitis, could also be PUD, gastritis, esophagitis, saman dawn, cholecystitis. Will evaluate with labs, IVF, NPO and pain control. 07/16/17 17:35 No white count. Lipase 482. Hospitalist paged for admission for pancreatitis. 07/16/17 18:17 Patient will be admitted. *DC/Admit/Observation/Transfer Diagnosis at time of Disposition: Alcoholic pancreatitis - Discharge Dispostion Condition at time of disposition: Guarded
[2017-07-16 16:43] LABS: ALBUMIN 4.4 g/dl (3.4-5.0); ANION GAP 14 (8-16); CALCIUM 9.2 mg/dL (8.5-10.1); CO2 22 mmol/L (21-32); GLUCOSE,RANDOM 129 mg/dL (74-106)
[2017-07-16 16:47] LABS: ALK PHOS 309 U/L (45-117); BILIRUBIN,TOTAL 0.9 mg/dL (0.2-1.0); CREATININE 0.6 mg/dL (0.55-1.02); SGOT/AST 393 U/L (15-37); SGPT/ALT 358 U/L (12-78)
[2017-07-16] MEDS ORDERED: PROMETHAZINE HCL 25 MG/1 ML VIAL IVPUSH ONE (17:28)
[2017-07-16] MEDS ORDERED: MAG HYDROX/AL HYDROX/SIMETH 30 ML UNIT-DOSE CUP PO ONE (18:15)
[2017-07-16] MEDS ORDERED: FAMOTIDINE 20 MG/50 ML IVPB 50 ML IVPB ONE ×2 (18:16→18:41)
--- NOTE | 2017-07-16 18:22 | PN ---
Teaching Attending Note Name of Resident: Alexei Em ATTENDING PHYSICIAN STATEMENT I saw and evaluated the patient. I reviewed the resident's note and discussed the case with the resident. I agree with the resident's findings and plan as documented. SUBJECTIVE: She reports mild epigastric pain, improved after Dilaudid OBJECTIVE: Last Vital Signs Temp Pulse Resp BP Pulse Ox 98.5 F 80 20 150/70 100 07/16/17 14:10 07/16/17 14:10 07/16/17 14:10 07/16/17 14:10 07/16/17 14:10 ASSESSMENT AND PLAN: The patient is a 46F with a PMH of chronic alcohol abuse (relapse last week, last drink 3 days ago), alcoholic pancreatitis, ? HIV/AIDS, past IVDA (on Methadone 80mg daily), and hep c who presented to the ED with abdominal pain, nausea, and vomiting and was found to have pancreatitis. #Pancreatitis Presumed alcoholic Could be Truvada related Will obtain RUQ US to r/o biliary source Calcium noted Check triglycerides ID and GI consult for opinion regarding use of Truvada She also reports being new to the area and will require GI and ID care NPO for now Hold Truvada for now NS 250ml/hr for vigorous fluid hydration Methadone 80mg with Dilaudid prn for pain #Hematemesis She denies this to the ED but reported this to our team Protonix #Alcohol Abuse Monitor for withdrawal Multivitamin/B12/Thiamine #CHRONIC HEPATITIS C Transaminitis noted ? if this is chronic Will consult GI With psychiatric history she is not likely to qualify for treatment Send Hepatitis panel to exclude concurrent Hep B #? AIDS/HIV She says she was told to take Truvada because a previous partner had AIDS and she should take the medication "just in case" Hold Truvada for now HIV test ID consult as above #CVA She states that she is not on Plavix Continue antihypertensives #BIPOLAR DISORDER Stable Continue Depakote See resident note for full details
[2017-07-16] MEDS ORDERED: ONDANSETRON 4 MG/2 ML VIAL IVPB PRN (18:32)
[2017-07-16] MEDS ORDERED: PANTOPRAZOLE 40 MG TABLET (FP) ONE (18:41)
[2017-07-16] MEDS ORDERED: MAG HYDROX/AL HYDROX/SIMETH 30 ML UNIT-DOSE CUP ONE (18:41)
[2017-07-16] MEDS: PANTOPRAZOLE 40 MG TABLET (FP) PO SCH (18:45)
--- NOTE | 2017-07-16 18:47 | HP ---
CHIEF COMPLAINT:abdominal pain. PCP: HISTORY OF PRESENT ILLNESS: The patient is a 46F with a PMH of chronic alcohol abuse (relapse last week, last drink 3 days ago), alcoholic pancreatitis, ? HIV/AIDS, past IVDA (on Methadone 80mg daily), and hep c presents with 1 day history of abdominal pain and nausea/vomiting. She states that for the past day she has had constant 9/10 sharp epigastric abdominal pain that radiates to her back. Pain is associated with bilous and bloody vomitous x2. She also endorses diaphoresis. She has had pancreatitis in past and this is the same pain as those times. Denies CP,SHOOK,SOB , palpitations, or fever. ER course was notable for: (1)Elvated Lipase conistant with acute pancreatitis. (2)Transaminintis (3)EKG shows NSR no st or t wave abnormalities. Recent Travel: Denies. PAST MEDICAL HISTORY:chronic alcohol abuse (relapse last week, last drink 3 days ago), alcoholic pancreatitis, ? HIV/AIDS, past IVDA (on Methadone 80mg daily), and hep c PAST SURGICAL HISTORY: Social History: Smokin-5 cigs/day Alcohol:chronic abuse. Drugs: smokes marijuana, previous heroin abuse. Family History: Allergies prochlorperazine maleate [From Compazine] Allergy (Severe, Verified 07/16/17 14: 09) DYSTONIA metoclopramide HCl [From Reglan] Allergy (Verified 07/16/17 14:09) prochlorperazine edisylate [From Compazine] Allergy (Verified 07/16/17 14:09) HOME MEDICATIONS: Home Medications Medication Instructions Recorded Emtricitabine/Tenofovir [Truvada -] 0 mg PO DAILY 09/13/16 Methadone [Dolophine -] 80 mg PO DAILY 09/13/16 Gabapentin [Neurontin] 600 mg PO TID #30 tablet 10/11/16 Ondansetron HCl [Zofran] 4 mg PO TID PRN #12 tablet 01/01/17 Acetaminophen [Tylenol .Regular 650 mg PO Q6H PRN #0 tablet 01/07/17 Strength -] REVIEW OF SYSTEMS CONSTITUTIONAL: Absent: fever, chills, diaphoresis, generalized weakness, malaise, loss of appetite, weight change HEENT: Absent: rhinorrhea, nasal congestion, throat pain, throat swelling, difficulty swallowing, mouth swelling, ear pain, eye pain, visual changes CARDIOVASCULAR: Absent: chest pain, syncope, palpitations, irregular heart rate, lightheadedness , peripheral edema RESPIRATORY: Absent: cough, shortness of breath, dyspnea with exertion, orthopnea, wheezing, stridor, hemoptysis GASTROINTESTINAL:abdominal pain, abdominal distension, nausea, vomiting Absent: , diarrhea, constipation, melena, hematochezia GENITOURINARY: Absent: dysuria, frequency, urgency, hesitancy, hematuria, flank pain, genital pain MUSCULOSKELETAL: Absent: myalgia, arthralgia, joint swelling, back pain, neck pain SKIN: Absent: rash, itching, pallor HEMATOLOGIC/IMMUNOLOGIC: Absent: easy bleeding, easy bruising, lymphadenopathy, frequent infections ENDOCRINE: Absent: unexplained weight gain, unexplained weight loss, heat intolerance, cold intolerance NEUROLOGIC: Absent: headache, focal weakness or paresthesias, dizziness, unsteady gait, seizure, mental status changes, bladder or bowel incontinence PSYCHIATRIC: anxiety, Absent: depression, suicidal or homicidal ideation, hallucinations. PHYSICAL EXAMINATION GENERAL: AAO x3 , NAD HEAD:NC/AT EYES: PERRLA,EOMI sclera anicteric, conjunctiva clear. No lid lag. EARS, NOSE, THROAT: Moist mucous membranes. NECK:supple, no jvd LUNGS: CTAB, no wheezing or crackles. HEART: Tachycardic, no m/g/r ABDOMEN: Soft, moderate epigastric tenderness, MUSCULOSKELETAL: Normal range of motion at all joints. No bony deformities or tenderness. No CVA tenderness. UPPER EXTREMITIES: 2+ pulses, warm, well-perfused. No cyanosis. No clubbing. No peripheral edema. LOWER EXTREMITIES: 2+ pulses, warm, well-perfused. No calf tenderness. No peripheral edema. NEUROLOGICAL: Cranial nerves II-XII intact. Normal speech. PSYCHIATRIC: anxious ASSESSMENT/PLAN: 46F with a PMH of chronic alcohol abuse (relapse last week, last drink 3 days ago), alcoholic pancreatitis, ? HIV/AIDS, past IVDA (on Methadone 80mg daily), and hep c who presented to the ED with abdominal pain, nausea, and vomiting and was found to have pancreatitis. Problem List - Problem (1) Alcoholic pancreatitis Assessment/Plan: * Most likely secondary to ETOH * May be 2/2 HAART vs. biliary stones * RUQ US pending. * CHeck TG * NPO for now. * IVF with NS @250 ml/hr * pain control - methadone 80mg PO daily and 1 mg dilaudid Q6h (2) Bipolar II disorder Assessment/Plan: * Continue depakot (3) Heroin abuse Assessment/Plan: * On methadone 80mg daily (4) HIV exposure Assessment/Plan: * Will send for HIV testing. * Consult ID * stop Truvada as this may cause pancreatitis. (5) Alcohol withdrawal Assessment/Plan: * Continue vitamin supplementation * Thiamine, folate, MVI. (6) Hepatitis C Assessment/Plan: * Consulted GI * might be cause of transaminitis. Visit type - Emergency Visit Emergency Visit: Yes ED Registration Date: 07/16/17 Care time: The patient presented to the Emergency Department on the above date and was hospitalized for further evaluation of their emergent condition. - New Patient This patient is new to me today: Yes Date on this admission: 07/17/17 - Critical Care Critical Care patient: No
[2017-07-16] MEDS: SODIUM CHLORIDE 1,000 ML IV SCH (20:57)
[2017-07-16] MEDS: HYDROmorphone HCL CARPU-JECT 1 MG/1 ML DISP.SYRIN IVPUSH PRN (20:57)
[2017-07-16 21:20] LABS: HIV 1 & 2 AB NEGATIVE; HIV 1 AGp24 NEGATIVE
[2017-07-16] MEDS ORDERED: ACETAMINOPHEN 325 MG TABLET (FP) PO PRN (21:39)
[2017-07-16] MEDS ORDERED: ONDANSETRON 4 MG TABLET PO PRN (21:39)
[2017-07-17] MEDS: HYDROmorphone HCL CARPU-JECT 1 MG/1 ML DISP.SYRIN IVPUSH PRN ×4 (01:52→22:38)
[2017-07-17] MEDS: SODIUM CHLORIDE 1,000 ML IV SCH ×2 (01:52→05:59)
--- NOTE | 2017-07-17 06:56 | PN ---
Physical Exam: SUBJECTIVE: Patient seen and examined She states that she does feel better but the pain continues She requests an increase in Dilaudid dosing She had the US this morning OBJECTIVE: Vital Signs Period Temp Pulse Resp BP Sys/Moore Pulse Ox Last 24 Hr 98.2 F-100.1 F 68-89 18-20 128-148/74-95 98-100 Lungs CTAB Heart RRR Abdomen soft with epigastric tenderness on deep palpation Extremities without edema Laboratory Results - last 24 hr 07/16/17 07/16/17 20:25 20:25 Triglycerides 89 HIV 1&2 Antibody Screen Negative HIV P24 Antigen Negative Active Medications Generic Name Dose Route Start Last Admin Trade Name Freq PRN Reason Stop Dose Admin Acetaminophen 650 mg 07/16/17 21:39 Tylenol - PO Q6H PRN FEVER OR PAIN Hydromorphone HCl 1 mg 07/16/17 18:32 07/17/17 06:24 Dilaudid Injection - IVPUSH 1 mg Q4H PRN Administration PAIN Sodium Chloride 1,000 mls @ 250 mls/hr 07/16/17 18:30 07/17/17 05:59 Normal Saline - IV 07/18/17 22:29 250 mls/hr ASDIR GONZALEZ Administration Methadone HCl 80 mg 07/17/17 10:00 Dolophine - PO DAILY GONZALEZ Ondansetron HCl 4 mg 07/16/17 18:32 07/16/17 20:58 Zofran Injection IVPB 4 mg Q6H PRN Administration NAUSEA Ondansetron HCl 4 mg 07/16/17 21:39 Zofran - PO TID PRN NAUSEA AND/OR VOMITING Pantoprazole Sodium 40 mg 07/16/17 18:30 07/16/17 18:45 Protonix - PO 40 mg DAILY GONZALEZ Administration ASSESSMENT/PLAN: The patient is a 46F with a PMH of chronic alcohol abuse (relapse last week, last drink 3 days ago), alcoholic pancreatitis, past IVDA (on Methadone 80mg daily), and hep c who presented to the ED yesterday with abdominal pain, nausea , and vomiting and was found to have pancreatitis. #Pancreatitis Presumed alcoholic Could be Truvada related RUQ US to r/o biliary source done and results pending Calcium noted Triglycerides noted ID and GI consult for opinion regarding use of Truvada She would like to be able to take it as she is concerned that her partner may develop HIV and not tell her She also reports being new to the area and will require GI care Continue NPO Hold Truvada Continue IVF but change to D5NS at 250ml/hr for vigorous fluid hydration and some calorie provision Dilaudid prn for pain. Will increase to 1mg from 0.5mg Zofran prn nausea #Hematemesis She denies this to the ED but reported this to our team No further episodes Protonix GI consult as above #Alcohol Abuse / Past opiate abuse Continue to monitor for withdrawal Multivitamin/B12/Thiamine Methadone 80mg Nurse verified dose yesterday #CHRONIC HEPATITIS C Transaminitis noted I suspect that this is chronic GI consult as above With psychiatric history she is not likely to qualify for treatment Send Hepatitis panel to exclude concurrent Hep B #? AIDS/HIV HIV test negative She was taking Truvada as PREP She would like to be able to take it as she is concerned that her partner may develop HIV and not tell her Hold Truvada for now given pancreatitis ID consult as above #CVS She states that she is not on Plavix and does not know why it was on her medication list Continue antihypertensives #BIPOLAR DISORDER Stable Continue Depakote #PROPHYLAXIS Protonix Lovenox Visit type - Emergency Visit Emergency Visit: Yes ED Registration Date: 07/16/17 Care time: The patient presented to the Emergency Department on the above date and was hospitalized for further evaluation of their emergent condition. - New Patient This patient is new to me today: No - Critical Care Critical Care patient: No
[2017-07-17] MEDS: DEXTROSE 5%-NORMAL SALINE 1,000 ML IV SCH ×3 (08:47→22:37)
[2017-07-17 08:53] LABS: BASOPHIL 0.4 % (0-2.0); EOSINOPHIL 0.2 % (0-4.5); MCH 33.3 pg (25.7-33.7); MCHC 33.7 g/dl (32.0-36.0); MEAN CELL VOLUME 98.7 fl (80-96); MEAN PLT VOLUME 10.6 fl (7.5-11.1); PLATELET COUNT 107 K/MM3 (134-434); RDW 14.7 % (11.6-15.6); WHITE BLOOD COUNT 5.6 K/mm3 (4.0-10.0)
[2017-07-17] MEDS: METHADONE HCL 40 MG DISPERSABLE TABLET PO SCH (09:23)
[2017-07-17] MEDS: PANTOPRAZOLE 40 MG TABLET (FP) PO SCH (09:23)
[2017-07-17] MEDS: ENOXAPARIN NA (PORCINE) 40 MG/0.4 ML DISP.SYRIN SQ SCH (09:23)
[2017-07-17 09:25] LABS: ALBUMIN 3.2 g/dl (3.4-5.0); ANION GAP 5 (8-16); CALCIUM 7.9 mg/dL (8.5-10.1); CO2 24 mmol/L (21-32); GLUCOSE,RANDOM 85 mg/dL (74-106); MAGNESIUM 1.9 mg/dL (1.8-2.4)
[2017-07-17 09:28] LABS: ALK PHOS 217 U/L (45-117); BILIRUBIN,TOTAL 0.9 mg/dL (0.2-1.0); CREATININE 0.6 mg/dL (0.55-1.02); SGOT/AST 194 U/L (15-37); SGPT/ALT 236 U/L (12-78)
[2017-07-17] MEDS ORDERED: NAPH,MB-DB/K PH,MBDB POWDER PACKET PO ONE (11:27)
[2017-07-17] MEDS: HYDROmorphone HCL CARPU-JECT 1 MG/1 ML DISP.SYRIN IVPB PRN (11:30)
--- NOTE | 2017-07-17 11:50 | PN ---
Progress Note (short form) - Note Progress Note: came to see patient to discuss Truvada - she is not interested in taking Truvada anymore, will use barrier protection please call back if needed d/w Dr Carvajal
--- NOTE | 2017-07-17 13:38 | PN ---
Progress Note (short form) - Note Progress Note: GI CONSULTATION: PLEASE SEE FULL DICTATION: 46F BIPOLAR DEPRESSION/SUBSTANCE ABUSE/ ETOH ABUSE/HCV ADMIT WITH EPIGASTRIC PAIN AND VOMITING 2 DAYS AFTER ETOH BINGING PT SONOGRAM WITH NOTED PD/CBD DILATION WITHOUT STONES NO SONOGRAP[HIC EVIDENCE OF ACUTE PANCREATITIS SUSPECT PT WITH CHRONIC PANCREATITC DSEASE LIPASE 500 NON-SPECIFIC IN PATIENT WITH CHRONIC ETOH USAGE AND DOES NOT RULE IN PANCREATITIS CURRENTLY PAIN FREE AND WOULD LIKE TO EAT WOULD START CLEARS AND ADVNACE TOLERATED F/U MRI/MRCP FINDINGS #2) HCV WITH TRANSMAINITIS----PT BEING EVAL AT [address] [place] [address] AND TO START ANTI- VIRAL RX PER HER REPORT AGREE THAT ONCE OFF ETOH X 6 MONTHS AND OFF ALL SUBSTANCES, THEN SHOULD BE RX'D FOR HCV ERADICATION #3) NEEDS ETOH DETOX THANKS, MD BLANCA
--- NOTE | 2017-07-17 19:31 | CONS ---
DATE OF CONSULTATION: 07/17/2017 I was asked by Dr. Dr. Jaz Petty to evaluate this patient for possible pancreatitis. The patient is a 46-year-old white female who we had seen once approximately 10 years ago. At that time, she was noted to have pain in the setting of alcohol consumption. She was noted to have chronic hepatitis C. At this time, she tells me her past medical history includes hypertension, depression, bipolar depression, and chronic hepatitis C, and continued alcoholism. The patient is on methadone and she denies using recent IV drugs. The patient apparently came in because she had severe onset of abdominal pain with nausea, vomiting, and chills that awakened her from sleep 2 days ago. She said that her last drink was approximately 4 to 5 days ago and she was not drinking at the time that the pain ensued. She did not have any hematemesis or significant change in bowel habits. She did not have any diarrhea, rectal bleeding, or tarry stools. The patient drinks a fifth of liquor a day. Other than that, the patient tells me that she is being evaluated at [address] [place] [address] and is going to be started on antiviral therapy for chronic hepatitis C, she is not sure what. In addition, she also tells me that she has had endoscopy and colonoscopy in the past without significant findings. She is noted to be allergic to COMPAZINE and REGLAN. The only surgical history she had was section. She tells me currently that she smokes every day and she suffers alcohol abuse, although she has not had a drink in a couple of days, and ex IV drug usage. Currently she is unemployed. Her outpatient medication includes Dolophine, Neurontin, Eskalith, Zofran, Protonix, Tylenol, Plavix, and here in the hospital her current medications include Zofran, Tylenol, Lovenox, Dilaudid, methadone, and Protonix. On physical exam, she is in no acute distress, well developed, well nourished, a little bit disheveled. She has quite poor dentition. Her mouth is dry. Her sclerae are anicteric. Her neck is supple. Her heart is regular. Her abdomen is soft, bowel sounds are active. There is no tenderness, masses, rebound, or guarding. There is no tenderness to deep palpation. Laboratory data revealed a serum sodium 136, potassium 3.7, chloride 107, bicarbonate of 24, BUN 7, creatinine 0.6. She has a total bilirubin of 0.9 and AST of 194, and ALT of 236, an alkaline phosphatase of 217. She has a total protein of 7 and an albumin of 3.2. She had a lipase of 540. In terms of other testing, her CBC reveals a white count of 5.6, hemoglobin 13.2, hematocrit 39.3, platelet count of 107,000. In terms of radiologic imaging, she had a sonogram of the abdomen that notes the finding of the absence of gallstones, she had a dilated common bile duct and main pancreatic duct. Liver is normal in sonographic appearance and she had an abdominal MRI that still has not been officially read. Other than that, the patient tells me that she feels much better and that she is hungry and would like to eat. It is my impression that the patient is a 46-year-old white female with multiple medical problems including hypertension, bipolar depression, who has known chronic substance abuse and chronic hepatitis C. She is on methadone maintenance. She smokes daily and she drinks heavily. She came in with an attack of pain. It is unclear whether she had a mild pancreatitis. We await the MR findings. A CAT scan was not done and a sonogram notes a dilated pancreatic duct consistent with chronic pancreatic disease. So I agree we will have to see what the MRI and MRCP reveals. For now, I would advance her diet, her lipase is on the way down, she reports she is pain-free and hungry, and if she does not need pain medication, I would start her on a clear liquid diet and advance as tolerated. I would continue IV fluid until that time. If she requires pain medication, then I would not begin a diet at this time. At the same time, her chronic hepatitis C is an issue, her LFTs are elevated, and clearly she needs to have this treated. She needs to prove compliance with medical followup and medical treatment, and she needs to follow up. Apparently she was started at [address] [place] [address], she started the evaluation and will need to continue such. If she wishes, we can treat her for that if she would like. I agree though, based on her findings, she should certainly be eradicated for chronic hepatitis C for concerns of sequelae for the future. At the present time, she appears comfortable and nontoxic. We will continue to be available to aid in management of this patient. Thank you kindly. OBINNA RIOS M.D. KHADIJAH/[id number]
[2017-07-18] MEDS: DEXTROSE 5%-NORMAL SALINE 1,000 ML IV SCH ×3 (01:13→22:25)
[2017-07-18] MEDS: HYDROmorphone HCL CARPU-JECT 1 MG/1 ML DISP.SYRIN IVPUSH PRN (04:09)
[2017-07-18] MEDS: METHADONE HCL 40 MG DISPERSABLE TABLET PO SCH (06:28)
[2017-07-18 08:12] LABS: MCH 32.8 pg (25.7-33.7); MCHC 33.1 g/dl (32.0-36.0); MEAN CELL VOLUME 98.9 fl (80-96); MEAN PLT VOLUME 9.7 fl (7.5-11.1); PLATELET COUNT 98 K/MM3 (134-434); RDW 14.3 % (11.6-15.6); WHITE BLOOD COUNT 3.4 K/mm3 (4.0-10.0)
[2017-07-18 08:47] LABS: ANION GAP 9 (8-16); CALCIUM 8.2 mg/dL (8.5-10.1); CO2 24 mmol/L (21-32); CREATININE 0.6 mg/dL (0.55-1.02); GLUCOSE,RANDOM 103 mg/dL (74-106); PHOSPHOROUS 1.6 mg/dL (2.5-4.9)
--- NOTE | 2017-07-18 10:32 | PN ---
Teaching Attending Note Name of Resident: Juan Luis Evans ATTENDING PHYSICIAN STATEMENT I saw and evaluated the patient. I reviewed the resident's note and discussed the case with the resident. I agree with the resident's findings and plan as documented. SUBJECTIVE: Patient complains of abdominal pain, worse after trying clear liquids. OBJECTIVE: Vital Signs Period Temp Pulse Resp BP Sys/Moore Pulse Ox Last 24 Hr 97.9 F-98.2 F 60-63 18-20 121-134/78-97 99 HEART: S1S2, RRR LUNGS: Clear ABDOMEN: Soft, non-distended, mild diffuse tenderness, normal BS EXTREMITIES: No edema Current Medications Generic Name Dose Route Start Last Admin Trade Name Freq PRN Reason Stop Dose Admin Acetaminophen 650 mg 07/16/17 21:39 Tylenol - PO Q6H PRN FEVER OR PAIN Enoxaparin Sodium 40 mg 07/17/17 10:00 07/17/17 09:23 Lovenox - SQ 40 mg DAILY GONZALEZ Administration Hydromorphone HCl 1 mg 07/16/17 18:32 07/18/17 04:09 Dilaudid Injection - IVPUSH 1 mg Q4H PRN Administration PAIN Hydromorphone HCl 1 mg 07/17/17 08:50 07/17/17 11:30 Dilaudid Injection - IVPB 1 mg Q4H PRN Administration PAIN Dextrose/Sodium Chloride 1,000 mls @ 250 mls/hr 07/17/17 07:15 07/18/17 01:13 D5-Ns - IV 250 mls/hr ASDIR GONZALEZ Administration Methadone HCl 80 mg 07/17/17 10:00 07/18/17 06:28 Dolophine - PO 80 mg DAILY@0600 GONZALEZ Administration Ondansetron HCl 4 mg 07/16/17 18:32 07/16/17 20:58 Zofran Injection IVPB 4 mg Q6H PRN Administration NAUSEA Pantoprazole Sodium 40 mg 07/16/17 18:30 07/17/17 09:23 Protonix - PO 40 mg DAILY GONZALEZ Administration ASSESSMENT AND PLAN: This is a 46 year old woman with a history of alcohol abuse, alcoholic pancreatitis, IVDU, hepatitis C who presented to the ER with abdominal pain, nausea, and vomiting. 1. Abdominal pain with nausea/vomiting, possibly secondary to acute pancreatitis , alcohol-induced vs passed gallstone vs medication, possible chronic pancreatitis - RUQ US shows dialted CBD and main pancreatic duct - MRCP shows 9 mm CBD, 2.4 mm main pancreatic duct - Continue IV fluid, clear liquids, Dilaudid as needed for pain, Zofran as needed for nausea - She says she was taking Truvada because of her concern that her partner may develop HIV and not tell her - she has decided to discontinue Truvada - GI follow-up 2. Continuous alcohol dependence - Start thiamine, folic acid, multivitamin - No evidence of withdrawal 3. History of opioid dependence - Continue Methadone 4. Chronic hepatitis C 5. Bipolar disorder
[2017-07-18] MEDS: PANTOPRAZOLE 40 MG TABLET (FP) PO SCH (10:48)
[2017-07-18] MEDS: ENOXAPARIN NA (PORCINE) 40 MG/0.4 ML DISP.SYRIN SQ SCH (10:48)
[2017-07-18] MEDS: HYDROmorphone HCL CARPU-JECT 1 MG/1 ML DISP.SYRIN IVPB PRN ×3 (10:49→21:23)
--- NOTE | 2017-07-18 11:35 | PN ---
Physical Exam: SUBJECTIVE: Patient seen and examined. Patient states that her nausea and pain have gotten better. She still complains of abdominal pain OBJECTIVE: Vital Signs Period Temp Pulse Resp BP Sys/Moore Pulse Ox Last 24 Hr 97.9 F-98.2 F 60-63 18-20 121-134/78-97 99 GENERAL: The patient is awake, alert, and fully oriented, in no acute distress. HEAD: Normal with no signs of trauma. EYES: extraocular movements intact, sclera anicteric, conjunctiva clear. No ptosis. NECK: Trachea midline, full range of motion, supple. LUNGS: Breath sounds equal, clear to auscultation bilaterally, no wheezes, no crackles, no accessory muscle use. HEART: Regular rate and rhythm, S1, S2 without murmur, rub or gallop. ABDOMEN: Soft, mildly tender to palpation, nondistended, normoactive bowel sounds, no guarding, no rebound. EXTREMITIES: 2+ pulses, warm, well-perfused, no edema. NEUROLOGICAL: Cranial nerves II through X grossly intact. Normal speech, gait not observed. SKIN: Warm, dry, normal turgor, no rashes or lesions noted Laboratory Results - last 24 hr 07/18/17 07/18/17 08:00 08:00 WBC 3.4 L D RBC 3.97 Hgb 13.0 Hct 39.2 MCV 98.9 H MCH 32.8 MCHC 33.1 RDW 14.3 Plt Count 98 L MPV 9.7 Sodium 139 Potassium 3.7 Chloride 106 Carbon Dioxide 24 Anion Gap 9 BUN 5 L D Creatinine 0.6 Random Glucose 103 D Calcium 8.2 L Phosphorus 1.6 L Magnesium 2.0 Active Medications Generic Name Dose Route Start Last Admin Trade Name Freq PRN Reason Stop Dose Admin Acetaminophen 650 mg 07/16/17 21:39 Tylenol - PO Q6H PRN FEVER OR PAIN Enoxaparin Sodium 40 mg 07/17/17 10:00 07/17/17 09:23 Lovenox - SQ 40 mg DAILY GONZALEZ Administration Hydromorphone HCl 1 mg 07/17/17 08:50 07/17/17 11:30 Dilaudid Injection - IVPB 1 mg Q4H PRN Administration PAIN Dextrose/Sodium Chloride 1,000 mls @ 200 mls/hr 07/18/17 10:36 D5-Ns - IV ASDIR GONZALEZ Methadone HCl 80 mg 07/17/17 10:00 07/18/17 06:28 Dolophine - PO 80 mg DAILY@0600 GONZALEZ Administration Ondansetron HCl 4 mg 07/16/17 18:32 07/16/17 20:58 Zofran Injection IVPB 4 mg Q6H PRN Administration NAUSEA Pantoprazole Sodium 40 mg 07/16/17 18:30 07/17/17 09:23 Protonix - PO 40 mg DAILY GONZALEZ Administration ASSESSMENT/PLAN: The patient is a 46F with a PMH of chronic alcohol abuse (relapse last week, last drink 3 days ago), alcoholic pancreatitis, past IVDA (on Methadone 80mg daily), and hep c who presented to the ED yesterday with abdominal pain, nausea , and vomiting and was found to have pancreatitis. #acute on chronic Pancreatitis 2/2 ETOH abuse vs choledocholithiasis vs drug induced -RUQ US: no cholelithiasis, dilated pancreatic duct -Truvada on hold; patient HIV negative; she takes it because she is concerned that her partner may develop HIV and not tell her -clear liquid trial today; will advance as tolerated. -D5NS @200 -Dilaudid 1mg Q4H PRN pain. -Zofran prn nausea -GI consult #Alcohol Abuse / Past opiate abuse -Continue to monitor for withdrawal -Thiamine -Methadone 80mg #Hematemesis - resolved -No further episodes -Protonix 40 mg PO daily #Chronic hep C -Transaminitis noted -GI: likely 2/2 ETOH abuse -hepatitis serology pending #Bipolar disorder -patient states she is on depakote; calls being placed to confirm patient's medication list. #FEN -D5NS @ 200 -monitor lytes -Clear liquid diet #Prophylaxsis -Protonix 40mg PO -Lovenox 40mg SQ #Dispo -admitted to med surg for treatment of acute on chronic pancreatitis Problem List - Problems (1) Alcoholic pancreatitis Code(s): K85.20 - ALCOHOL INDUCED ACUTE PANCREATITIS WITHOUT NECROSIS OR INFCT Qualifiers: Chronicity: acute Acute pancreatitis complication: no infection or necrosis Qualified Code(s): K85.20 - Alcohol induced acute pancreatitis without necrosis or infection (2) Hepatitis C Code(s): B19.20 - UNSPECIFIED VIRAL HEPATITIS C WITHOUT HEPATIC COMA Qualifiers: Viral hepatitis chronicity: chronic Hepatic coma status: without hepatic coma Qualified Code(s): B18.2 - Chronic viral hepatitis C (3) Abdominal pain Code(s): R10.9 - UNSPECIFIED ABDOMINAL PAIN Qualifiers: Abdominal location: epigastric Qualified Code(s): R10.13 - Epigastric pain (4) Hep C w/o coma, chronic Code(s): B18.2 - CHRONIC VIRAL HEPATITIS C (5) Heroin abuse Code(s): F11.10 - OPIOID ABUSE, UNCOMPLICATED (6) Nausea and vomiting in adult Code(s): R11.2 - NAUSEA WITH VOMITING, UNSPECIFIED (7) Alcohol abuse, continuous Code(s): F10.10 - ALCOHOL ABUSE, UNCOMPLICATED Visit type - Emergency Visit Emergency Visit: Yes ED Registration Date: 07/16/17 Care time: The patient presented to the Emergency Department on the above date and was hospitalized for further evaluation of their emergent condition. - New Patient This patient is new to me today: No - Critical Care Critical Care patient: No
[2017-07-18] MEDS ORDERED: THIAMINE HCL 100 MG TABLET (FP) PO SCH (12:45)
--- NOTE | 2017-07-18 16:38 | EKG ---
Test Reason : Blood Pressure : / mmHG Vent. Rate : 077 BPM Atrial Rate : 077 BPM P-R Int : 138 ms QRS Dur : 092 ms QT Int : 430 ms P-R-T Axes : 063 047 064 degrees QTc Int : 486 ms NORMAL SINUS RHYTHM POSSIBLE LEFT ATRIAL ENLARGEMENT LEFT VENTRICULAR HYPERTROPHY NONSPECIFIC ST ABNORMALITY PROLONGED QT ABNORMAL ECG WHEN COMPARED WITH ECG OF 07-JAN-2017 08:31, T WAVE VARIATION Confirmed by VIVIAN SWANSON MD ([id number]) on 07/18/2017 4:37:55 PM Referred By: Confirmed By:VIVIAN SWANSON MD
[2017-07-18] MEDS: NAPH,MB-DB/K PH,MBDB POWDER PACKET PO SCH ×2 (17:49→21:23)
[2017-07-18] MEDS ORDERED: DOCUSATE SODIUM 100 MG CAPSULE (FP) PO PRN (18:16)
[2017-07-18] MEDS ORDERED: ARTIFICIAL TEARS (POLYVINYL ALCOHOL 1.4%) OPTH DROPS OU PRN (18:16)
[2017-07-18] MEDS ORDERED: MELATONIN 5 MG TABLETS PO PRN (18:16)
[2017-07-18] MEDS ORDERED: diphenhydrAMINE HCL 25 MG CAPSULE (FP) PO PRN (18:16)
[2017-07-18] MEDS ORDERED: PT OWN MED DRAWER 7, Y5N ONE (21:04)
[2017-07-18] MEDS: DIVALPROEX SODIUM 250 MG TABLET E.C. (FP) PO SCH (21:23)
[2017-07-18] MEDS: QUEtiapine FUMARATE 100 MG TABLET (FP) PO SCH (21:23)
[2017-07-18] MEDS ORDERED: SODIUM CHLORIDE NASAL SPRAY 44 ML BOTTLE NS PRN (23:51)
[2017-07-19] MEDS: DEXTROSE 5%-NORMAL SALINE 1,000 ML IV SCH (03:30)
[2017-07-19] MEDS: DIVALPROEX SODIUM 250 MG TABLET E.C. (FP) PO SCH (06:15)
[2017-07-19] MEDS: NAPH,MB-DB/K PH,MBDB POWDER PACKET PO SCH (06:15)
[2017-07-19] MEDS: METHADONE HCL 40 MG DISPERSABLE TABLET PO SCH (06:15)
[2017-07-19] MEDS ORDERED: PT OWN MED DRAWER 7, Y5N ONE (07:13)
[2017-07-19 08:56] LABS: ALK PHOS 188 U/L (45-117); ANION GAP 6 (8-16); BILIRUBIN,TOTAL 0.4 mg/dL (0.2-1.0); CALCIUM 7.8 mg/dL (8.5-10.1); CO2 26 mmol/L (21-32); CREATININE 0.6 mg/dL (0.55-1.02); GLUCOSE,RANDOM 110 mg/dL (74-106); MAGNESIUM 1.8 mg/dL (1.8-2.4); PHOSPHOROUS 3.5 mg/dL (2.5-4.9); SGOT/AST 164 U/L (15-37); SGPT/ALT 223 U/L (12-78); TOT PROT 6.4 g/dl (6.4-8.2)
--- NOTE | 2017-07-19 09:21 | PN ---
Physical Exam: SUBJECTIVE: Patient seen and examined. Patient looks and feels much better today. OBJECTIVE: Vital Signs Period Temp Pulse Resp BP Sys/Moore Pulse Ox Last 24 Hr 98.1 F-98.9 F 49-66 18-20 111-140/58-97 99 GENERAL: The patient is awake, alert, and fully oriented, in no acute distress. HEAD: Normal with no signs of trauma. EYES: PERRL, extraocular movements intact, sclera anicteric, conjunctiva clear. No ptosis. ENT: Ears normal, nares patent, oropharynx clear without exudates, moist mucous membranes. NECK: Trachea midline, full range of motion, supple. LUNGS: Breath sounds equal, clear to auscultation bilaterally, no wheezes, no crackles, no accessory muscle use. HEART: Regular rate and rhythm, S1, S2 without murmur, rub or gallop. ABDOMEN: Soft, nontender, nondistended, normoactive bowel sounds, no guarding, no rebound, no hepatosplenomegaly, no masses. EXTREMITIES: 2+ pulses, warm, well-perfused, no edema. NEUROLOGICAL: Cranial nerves II through XII grossly intact. Normal speech, gait not observed. PSYCH: Normal mood, normal affect. SKIN: Warm, dry, normal turgor, no rashes or lesions noted Laboratory Results - last 24 hr 07/18/17 07/19/17 08:00 06:55 Sodium 140 Potassium 3.5 Chloride 108 H Hepatitis A IgM Ab Negative Hep Bs Antigen Negative Hep B Core IgM Ab Negative Hepatitis C Ab (EIA) >11.0 H Active Medications Generic Name Dose Route Start Last Admin Trade Name Freq PRN Reason Stop Dose Admin Acetaminophen 650 mg 07/16/17 21:39 Tylenol - PO Q6H PRN FEVER OR PAIN Artificial Tears 1 drop 07/18/17 18:16 Artificial Tears OU DAILY PRN DRY EYES Diphenhydramine HCl 25 mg 07/18/17 18:16 Benadryl - PO BID PRN FOR ITCHING Divalproex Sodium 250 mg 07/18/17 22:00 07/19/17 06:15 Depakote - PO 250 mg TID GONZALEZ Administration Docusate Sodium 100 mg 07/18/17 18:16 Colace - PO DAILY PRN CONSTIPATION Enoxaparin Sodium 40 mg 07/17/17 10:00 07/18/17 10:48 Lovenox - SQ 40 mg DAILY GONZALEZ Administration Folic Acid 1 mg 07/19/17 10:00 Folic Acid - PO DAILY GONZALEZ Dextrose/Sodium Chloride 1,000 mls @ 200 mls/hr 07/18/17 10:36 07/19/17 03:30 D5-Ns - IV 200 mls/hr ASDIR GONZALEZ Administration Melatonin 10 mg 07/18/17 18:16 Melatonin PO HS PRN INSOMNIA Methadone HCl 80 mg 07/17/17 10:00 07/19/17 06:15 Dolophine - PO 80 mg DAILY@0600 GONZALEZ Administration Multivitamins/Minerals/Vitamin C 1 tab 07/19/17 10:00 Tab-A-Vit - PO DAILY GONZALEZ Ondansetron HCl 4 mg 07/16/17 18:32 07/16/17 20:58 Zofran Injection IVPB 4 mg Q6H PRN Administration NAUSEA Pantoprazole Sodium 40 mg 07/16/17 18:30 07/18/17 10:48 Protonix - PO 40 mg DAILY GONZALEZ Administration Potassium Phos/Sodium Phos 1 packet 07/18/17 14:15 07/19/17 06:15 Phos-Nak Packet - PO 1 packet TID GONZALEZ Administration Quetiapine Fumarate 300 mg 07/18/17 22:00 07/18/17 21:23 Seroquel - PO 300 mg BID GONZALEZ Administration Sodium Chloride 2 spray 07/18/17 23:51 [facility] - NS BID PRN NASAL CONGESTION Thiamine HCl 100 mg 07/19/17 10:00 Vitamin B1 - PO DAILY [facility] ASSESSMENT/PLAN: The patient is a 46F with a PMH of chronic alcohol abuse (relapse last week, last drink 3 days ago), alcoholic pancreatitis, past IVDA (on Methadone 80mg daily), and hep c who presented to the ED yesterday with abdominal pain, nausea , and vomiting and was found to have pancreatitis. #acute on chronic Pancreatitis 2/2 ETOH abuse vs choledocholithiasis vs drug induced -RUQ US: no cholelithiasis, dilated pancreatic duct -Truvada on hold; patient HIV negative; she takes it because she is concerned that her partner may develop HIV and not tell her -clear liquid trial today; will advance as tolerated. -D5NS @200 -Dilaudid 1mg Q4H PRN pain. -Zofran prn nausea -GI consult #Alcohol Abuse / Past opiate abuse -Continue to monitor for withdrawal -Thiamine -Methadone 80mg #Hematemesis - resolved -No further episodes -Protonix 40 mg PO daily #Chronic hep C -Transaminitis noted -GI: likely 2/2 ETOH abuse -hepatitis serology pending #Bipolar disorder -patient states she is on depakote; calls being placed to confirm patient's medication list. #FEN -D5NS @ 200 -monitor lytes -Clear liquid diet #Prophylaxsis -Protonix 40mg PO -Lovenox 40mg SQ #Dispo -admitted to med surg for treatment of acute on chronic pancreatitis Problem List - Problems (1) Alcoholic pancreatitis Code(s): K85.20 - ALCOHOL INDUCED ACUTE PANCREATITIS WITHOUT NECROSIS OR INFCT Qualifiers: Chronicity: acute Acute pancreatitis complication: no infection or necrosis Qualified Code(s): K85.20 - Alcohol induced acute pancreatitis without necrosis or infection (2) Hepatitis C Code(s): B19.20 - UNSPECIFIED VIRAL HEPATITIS C WITHOUT HEPATIC COMA Qualifiers: Viral hepatitis chronicity: chronic Hepatic coma status: without hepatic coma Qualified Code(s): B18.2 - Chronic viral hepatitis C (3) Abdominal pain Code(s): R10.9 - UNSPECIFIED ABDOMINAL PAIN Qualifiers: Abdominal location: epigastric Qualified Code(s): R10.13 - Epigastric pain (4) Hep C w/o coma, chronic Code(s): B18.2 - CHRONIC VIRAL HEPATITIS C (5) Heroin abuse Code(s): F11.10 - OPIOID ABUSE, UNCOMPLICATED (6) Nausea and vomiting in adult Code(s): R11.2 - NAUSEA WITH VOMITING, UNSPECIFIED (7) Alcohol abuse, continuous Code(s): F10.10 - ALCOHOL ABUSE, UNCOMPLICATED
[2017-07-19] MEDS: PANTOPRAZOLE 40 MG TABLET (FP) PO SCH (10:00)
[2017-07-19] MEDS ORDERED: FOLIC ACID 1 MG TABLET (FP) PO SCH (10:00)
[2017-07-19] MEDS: QUEtiapine FUMARATE 100 MG TABLET (FP) PO SCH (10:00)
[2017-07-19] MEDS ORDERED: THIAMINE HCL 100 MG TABLET (FP) PO SCH (10:00)
[2017-07-19] MEDS ORDERED: MULTIVITAMINS (DAILY MVI) TABLET (FP) PO SCH (10:00)
[2017-07-19] MEDS: ENOXAPARIN NA (PORCINE) 40 MG/0.4 ML DISP.SYRIN SQ SCH (10:01)
--- NOTE | 2017-07-19 12:47 | PN ---
Teaching Attending Note Name of Resident: Juan Luis Evans ATTENDING PHYSICIAN STATEMENT I saw and evaluated the patient. I reviewed the resident's note and discussed the case with the resident. I agree with the resident's findings and plan as documented. SUBJECTIVE:pain has resolved. tolerating liquid diet, requesting regular food. denies CP, SOB, fever, chills, N/V/C/D states she does have intermittent RUQ pain but can not recall if related to eating food OBJECTIVE: Last Vital Signs Temp Pulse Resp BP Pulse Ox 98.1 F 66 20 111/76 99 07/19/17 06:40 07/19/17 06:40 07/19/17 06:40 07/19/17 06:40 07/18/17 21:00 General NAD Abdomen soft NT/ND neg espinosa sign ASSESSMENT AND PLAN: 46 yo F with PMH continuous alcohol abuse, alcoholic pancreatitis, IVDU, hepatitis C who presented to the ER with abdominal pain, nausea, and vomiting. 1. acute pancreatitis- likely alcohol-induced vs passed gallstone vs medication , possible chronic pancreatitis. clinically symptoms resolved. transamintis trending down. tolerating liquid diet. will advance to regular diet. Mildly dialted CBD on imaging as per GI nothing to do at this time. will need to f/u with GI as outpatient if continues to have RUQ pain may have cholelithasis and may eventually require cholecystectomy. instructed to stop truvada at this time. was only using it for PRep. instructed to use barrier protection. 2. Continuous alcohol dependence- no signs of withdrawal. was not detox here. no interest in inpatient rehab (just completed several weeks ago). counseled on risks of continued drinking included but not limited to heart disease, recurrent pancreatitis, liver disease and cancer. counselled on support groups in community. 3. History of opioid dependence- Continue Methadone 4. Chronic hepatitis C- not treated in the past. will need to show sobriety for 6 months and then should f/u with GI for treatment 5. Bipolar disorder 6. d/c home if able to tolerate diet
[2017-07-19 14:00] VITALS: BP 115/79; PULSE 70; TEMP 98.6
--- NOTE | 2017-07-19 14:59 | DS ---
Physical Exam: SUBJECTIVE: Patient seen and examined at bedside. Looks and feels much better today. She states that her pain has resolved and she is able to tolerate solid foods. OBJECTIVE: Vital Signs Period Temp Pulse Resp BP Sys/Moore Pulse Ox Last 24 Hr 98.1 F-98.9 F 58-70 19-20 111-140/76-97 99-99 PHYSICAL EXAM GENERAL: The patient is awake, alert, and fully oriented, in no acute distress. HEAD: Normal with no signs of trauma. EYES: extraocular movements intact, sclera anicteric, conjunctiva clear. NECK: Trachea midline, full range of motion, supple. LUNGS: Breath sounds equal, clear to auscultation bilaterally, no wheezes, no crackles, no accessory muscle use. HEART: Regular rate and rhythm, S1, S2 without murmur, rub or gallop. ABDOMEN: Soft, nontender, nondistended, normoactive bowel sounds, no guarding, no rebound. EXTREMITIES: 2+ pulses, warm, well-perfused, no edema. NEUROLOGICAL: Cranial nerves II through X grossly intact. Normal speech, gait not observed. PSYCH: Normal mood, normal affect. SKIN: Warm, dry, normal turgor, no rashes or lesions noted. LABS Laboratory Results - last 24 hr 07/18/17 07/19/17 08:00 06:55 Sodium 140 Potassium 3.5 Chloride 108 H Carbon Dioxide 26 Anion Gap 6 L BUN 4 L Creatinine 0.6 Creat Clearance w eGFR > 60 Random Glucose 110 H Calcium 7.8 L Phosphorus 3.5 D Magnesium 1.8 Total Bilirubin 0.4 D AST 164 H ALT 223 H Alkaline Phosphatase 188 H Total Protein 6.4 Albumin 3.0 L Lipase 627 H Hepatitis A IgM Ab Negative Hep Bs Antigen Negative Hep B Core IgM Ab Negative Hepatitis C Ab (EIA) >11.0 H HOSPITAL COURSE: Date of Admission:07/16/17 The patient is a 46 yo F w/ PMH of chronic alcohol abuse, alcoholic pancreatitis , past IVDA (on Methadone 80mg daily), and hep c presents with 1 day history of abdominal pain and nausea/vomiting and hematemesis. In the ED, her lipase was found to be 540, her AST was 393 and her ALT was 358. A RUQ ultrasound showed no cholelithiasis and a dilated common bile duct and pancreatic duct. An MRCP showed the same without any choledocholithiasis. She was admitted for acute pancreatitis. Dr. Vieira with gastroentrology was consulted. Dr. Linares from infectious disease was consulted. The patient was taking Truvada at home for PrEP and this was thought to have contributed to her condition. She was HIV negative this admission. Her pain was controlled with dilaudid and she was volume resuscitated. The patient improve clinically and began to tolerate oral feeds. She had no other episodes of vomiting of hematemesis. Her liver enzymes were trending down. She was discharged home with instructions to stop taking her Truvada and to follow up with both Dr. Vieira and her PCP. She was counselled that her continued drinking played a role in this admission and will continue to adversely affect her health including heart disease, cancer and more pancreatitis. She verbalized understanding. AA and rehab resources were offered. She was advised to call her doctor or return to the ED if any of her symptoms worsened. Date of Discharge: 07/19/17 Minutes to complete discharge: 20 Discharge Summary Reason For Visit: ACUTE PACREATITIS Condition: Improved - Instructions Diet, Activity, Other Instructions: You were admitted for Pancreatitis. You may resume all of your home medications , except Truvada. You should follow up with your primary care physician within one week of getting home. You should have your liver enzymes checked to ensure they are trending down. You should also follow up with the GI doctor who saw you during your hospital stay, Dr. Vieira, within one week of going home. It is very important for you to stop drinking as this will continue to cause worsening of your liver function, put you at higher risk of re-developing pancreatitis as well as risk for early heart disease and cancer. Follow up AA meetings as discussed. If you begin to experience fever, chills or if any of your symptoms get worse, please call your doctor or return to the emergency department. Referrals: Jaylen Vieira MD [Staff Physician] - Disposition: HOME - Home Medications Comprehensive Discharge Medication List: Ambulatory Orders Methadone [Dolophine -] 80 mg PO DAILY 09/13/16 Diphenhydramine HCl [Benadryl Capsule -] 25 mg PO BID PRN 07/18/17 Hypromellose 0.5% Opth Soln [Artificial Tears] 1 drop AU DAILY 09/18/17 Multivitamin [One Daily] 1 tab PO DAILY 07/18/17 Divalproex [Depakote -] 250 mg PO TID #90 tab.ec 07/19/17 Docusate Sodium [Colace -] 100 mg PO DAILY PRN #30 cap 07/19/17 Fluticasone Prop 0.05% Nasal [Flonase -] 1 spray NS DAILY #1 bottle 07/19/17 Folic Acid 1 mg PO DAILY #30 tablet 07/19/17 Gabapentin 100 mg PO TID #90 capsule 07/19/17 Melatonin 10 mg PO HS PRN #30 cap 07/19/17 Quetiapine Fumarate [Seroquel] 300 mg PO BID #60 tablet 07/19/17 Thiamine HCl [Vitamin B1 -] 1 tab PO DAILY #30 tablet 07/19/17 Problem List - Problems (1) Alcoholic pancreatitis Code(s): K85.20 - ALCOHOL INDUCED ACUTE PANCREATITIS WITHOUT NECROSIS OR INFCT Qualifiers: Chronicity: acute Acute pancreatitis complication: no infection or necrosis Qualified Code(s): K85.20 - Alcohol induced acute pancreatitis without necrosis or infection (2) Hepatitis C Code(s): B19.20 - UNSPECIFIED VIRAL HEPATITIS C WITHOUT HEPATIC COMA Qualifiers: Viral hepatitis chronicity: chronic Hepatic coma status: without hepatic coma Qualified Code(s): B18.2 - Chronic viral hepatitis C (3) Abdominal pain Code(s): R10.9 - UNSPECIFIED ABDOMINAL PAIN Qualifiers: Abdominal location: epigastric Qualified Code(s): R10.13 - Epigastric pain (4) Hep C w/o coma, chronic Code(s): B18.2 - CHRONIC VIRAL HEPATITIS C (5) Heroin abuse Code(s): F11.10 - OPIOID ABUSE, UNCOMPLICATED (6) Nausea and vomiting in adult Code(s): R11.2 - NAUSEA WITH VOMITING, UNSPECIFIED (7) Alcohol abuse, continuous Code(s): F10.10 - ALCOHOL ABUSE, UNCOMPLICATED This patient is new to me today: No Emergency Visit: Yes ED Registration Date: 07/16/17 Care time: The patient presented to the Emergency Department on the above date and was hospitalized for further evaluation of their emergent condition. Critical Care patient: No - Discharge Referral Referred to [facility] Med P.C.: No
[2017-08-12 08:07] LABS: HCV LOG 10 6.039 (.)
== END 2017-07-19 14:16 | disposition home or self-care (01) | DRG 282 ==
LOC: JER 13:57 → JERBED 17:38 → J8W 19:41
PROVIDERS: ADMIT Internal Medicine; ATTEND Internal Medicine
DX: K85.20 Alcohol induced acute pancreatitis without necrosis or infection (principal); F10.10 Alcohol abuse, uncomplicated; B18.2 Chronic viral hepatitis C; F31.89 Other bipolar disorder; R10.13 Epigastric pain; R74.0 Nonspecific elevation of levels of transaminase and lactic acid dehydrogenase [LDH]; F12.20 Cannabis dependence, uncomplicated; F19.10 Other psychoactive substance abuse, uncomplicated; F41.8 Other specified anxiety disorders; F11.20 Opioid dependence, uncomplicated; K92.0 Hematemesis; K82.8 Other specified diseases of gallbladder; Z20.6 Contact with and (suspected) exposure to human immunodeficiency virus [HIV]
CPT/HCPCS: 36415; 74181-TC; 76700-TC; 80048; 80053; 80074; 80307; 83690; 83735; 84100; 84478; 85025; 85027; 87389; 87522; 93005; 93010; 99283-25

== ENCOUNTER 2017-09-23 21:41 | Inpatient (IN) | payer OTHER ==
[2017-09-23] MEDS ORDERED: METHADONE HCL 10 MG TABLET PO ONE (22:44)
[2017-09-23] MEDS ORDERED: SODIUM CHLORIDE 0.9% 500 ML INFUS.BAG IV ONE (22:44)
--- NOTE | 2017-09-23 22:44 | PDOC ---
History of Present Illness - General History Source: Patient Exam Limitations: No Limitations - History of Present Illness Initial Comments: 09/23/17 22:59 The patient is a 47 year old female, with a significant past medical history of pancreatitis, ETOH abuse and hepatitis C, who presents to the emergency department complaining of nausea and vomiting beginning this morning approx. 18 hours ago. The patient reports multiple episodes of non bloody no bilious vomit throughout the day. The patient reports she consumed an appreciable amount of alcohol on Thanksgiving. The patient also reports associated symptoms of diffuse abdominal pain secondary to the vomiting. She denies recent fevers, chills, or headache. She denies recent diarrhea or constipation. She denies recent chest pain or shortness of breath. PCP: Patient states she does not have a PMD. <Diogo Fletcher - Last Filed: 09/24/17 03:00> <Kinsey Morrison - Last Filed: 09/24/17 05:05> - General Chief Complaint: Pain, Acute Stated Complaint: ABD PAIN Time Seen by Provider: 09/23/17 22:03 Past History <Diogo Fletcher - Last Filed: 09/24/17 03:00> - Past Medical History Anemia: Yes (H/O) Asthma: No Cardiac Disorders: No CVA: No COPD: No CHF: No Dementia: No Diabetes: No GI Disorders: No Disorders: No HTN: No Hypercholesterolemia: No Kidney Stones: No Liver Disease: Yes (HEP C) Psychiatric Problems: Yes (BIPOLAR) Seizures: No Thyroid Disease: No - Surgical History Abdominal Surgery: No Appendectomy: No Cardiac Surgery: No Cholecystectomy: No Lung Surgery: No Neurologic Surgery: No Orthopedic Surgery: No - Reproductive History (#): 13 Para: 11 PID: No - Suicide/Smoking/Psychosocial Hx Smoking History: Unknown if ever smoked Have you smoked in the past 12 months: No Number of Cigarettes Smoked Daily: 10 Cigars Per Day: 3 Information on smoking cessation initiated: No 'Breaking Loose' booklet given: 12/29/15 Hx Alcohol Use: No Drug/Substance Use Hx: No Substance Use Type: Alcohol, Heroin, Opiates Hx Substance Use Treatment: Yes <Kinsey Morrison - Last Filed: 09/24/17 05:05> - Past Medical History Allergies/Adverse Reactions: Allergies Allergy/AdvReac Type Severity Reaction Status Date / Time prochlorperazine maleate Allergy Severe DYSTONIA Verified 09/23/17 21:47 [From Compazine] metoclopramide HCl Allergy Verified 09/23/17 21:47 [From Reglan] prochlorperazine edisylate Allergy Verified 09/23/17 21:47 [From Compazine] Home Medications: Ambulatory Orders Methadone [Dolophine -] 80 mg PO DAILY 09/13/16 Diphenhydramine HCl [Benadryl Capsule -] 25 mg PO BID PRN 07/18/17 Hypromellose 0.5% Opth Soln [Artificial Tears] 1 drop AU DAILY 07/18/17 Multivitamin [One Daily] 1 tab PO DAILY 07/18/17 Divalproex [Depakote -] 250 mg PO TID #90 tab.ec 07/19/17 Docusate Sodium [Colace -] 100 mg PO DAILY PRN #30 cap 07/19/17 Fluticasone Prop 0.05% Nasal [Flonase -] 1 spray NS DAILY #1 bottle 07/19/17 Folic Acid 1 mg PO DAILY #30 tablet 07/19/17 Gabapentin 100 mg PO TID #90 capsule 07/19/17 Quetiapine Fumarate [Seroquel] 300 mg PO BID #60 tablet 07/19/17 Thiamine HCl [Vitamin B1 -] 1 tab PO DAILY #30 tablet 07/19/17 Review of Systems - Review of Systems Comments:: 09/23/17 23:00 GENERAL/CONSTITUTIONAL: No fever or chills. No weakness. HEAD, EYES, EARS, NOSE AND THROAT: No change in vision. No ear pain or discharge. No sore throat. CARDIOVASCULAR: No chest pain or shortness of breath. RESPIRATORY: No cough, wheezing, or hemoptysis. GASTROINTESTINAL: +Diffuse abdominal pain. +Nausea. +Vomiting. No diarrhea or constipation. GENITOURINARY: No dysuria, frequency, or change in urination. MUSCULOSKELETAL: No joint or muscle swelling or pain. No neck or back pain. SKIN: No rash NEUROLOGIC: No headache, vertigo, loss of consciousness, or change in strength/ sensation. ENDOCRINE: No increased thirst. No abnormal weight change. HEMATOLOGIC/LYMPHATIC: No anemia, easy bleeding, or history of blood clots. ALLERGIC/IMMUNOLOGIC: No hives or skin allergy. <Fletcher,Diogo - Last Filed: 09/24/17 03:00> *Physical Exam - Vital Signs Last Vital Signs Temp Pulse Resp BP Pulse Ox 100.2 F H 92 H 20 154/109 100 09/23/17 21:47 09/23/17 21:47 09/23/17 21:47 09/23/17 21:47 09/23/17 21:47 - Physical Exam Comments: 09/23/17 23:01 GENERAL: Awake, alert, and fully oriented, in no acute distress HEAD: No signs of trauma EYES: PERRLA, EOMI, sclera anicteric, conjunctiva clear ENT: Auricles normal inspection, hearing grossly normal, nares patent, oropharynx clear without exudates. Moist mucosa NECK: Normal ROM, supple, no lymphadenopathy, JVD, or masses LUNGS: Breath sounds equal, clear to auscultation bilaterally. No wheezes, and no crackles HEART: Regular rate and rhythm, normal S1 and S2, no murmurs, rubs or gallops ABDOMEN: Soft, nontender, normoactive bowel sounds. No guarding, no rebound. No masses EXTREMITIES: Normal range of motion, no edema. No clubbing or cyanosis. No cords, erythema, or tenderness NEUROLOGICAL: Cranial nerves II through XII grossly intact. Normal speech, normal gait SKIN: Warm, Dry, normal turgor, no rashes or lesions noted. <Diogo Fletcher - Last Filed: 09/24/17 03:00> - Vital Signs Last Vital Signs Temp Pulse Resp BP Pulse Ox 100.2 F H 92 H 20 154/109 100 09/23/17 21:47 09/23/17 21:47 09/23/17 21:47 09/23/17 21:47 09/23/17 21:47 <Kinsey Morrison - Last Filed: 09/24/17 05:05> Heart Score/ECG Review #1 09/24/17 02:31 Sinus tachycardia. Minimal voltage criteria for LVH, may be normal variant, septal infarct, age undetermined, abnormal ECG. <Diogo Fletcher - Last Filed: 09/24/17 03:00> ED Treatment Course - LABORATORY CBC & Chemistry Diagram: 09/23/17 23:00 09/23/17 23:00 <Diogo Fletcher - Last Filed: 09/24/17 03:00> - LABORATORY CBC & Chemistry Diagram: 09/23/17 23:00 09/23/17 23:00 <Kinsey Morrison - Last Filed: 09/24/17 05:05> Medical Decision Making - Medical Decision Making 09/24/17 01:13 Pt had a sudden angioedema episode; unclear if it was due to her zofran, or her pepcid. Pt states that she has known compazine and reglan allergies, but that she has never had a reaction to zofran or pepcid. SHe had some left tongue swelling which went down with benadryl and epi 1:1000 SQ. 09/24/17 05:04 Pt went on a myers all week and drank too mch alcohol; missed her methadone treatment. She comes now with epigastric pain and she thinks that she is having an attack of pancreatitis. Pt has alcoholic gastritis; hep C and inflamed liver and hyperbilirubinema (which she has never had in the past) Pt will be admitted for all of these issues including her angioedema episode. Hospitalist is aware of the patient. <Kinsey Morrison - Last Filed: 09/24/17 05:05> *DC/Admit/Observation/Transfer - Attestations Scribe Attestion: 09/23/17 23:02 Documentation prepared by Diogo Fletcher, acting as special forces medical sergeant for Kinsey Morrison MD. <Diogo Fletcher - Last Filed: 09/24/17 03:00> - Discharge Dispostion Admit: Yes <Kinsey Morrison - Last Filed: 09/24/17 05:05> Diagnosis at time of Disposition: Hyperbilirubinemia, Abdominal pain, epigastric, Nausea and vomiting, Abdominal pain, Gastritis, Hepatitis C, Angioedema - Discharge Dispostion Condition at time of disposition: Guarded
[2017-09-23] MEDS ORDERED: morphine CARPU-JECT 2 MG/1 ML DISP.SYRIN IVPUSH ONE (22:46)
[2017-09-23] MEDS ORDERED: ONDANSETRON 4 MG/2 ML VIAL IVPB ONE (22:48)
[2017-09-23] MEDS ORDERED: FAMOTIDINE 20 MG/50 ML IVPB 20 MG/50 ML MG IVPB ONE ×2 (22:48→23:24)
[2017-09-23] MEDS ORDERED: morphine SULFATE 4 MG/ML VIAL ONE (23:10)
[2017-09-23] MEDS ORDERED: ONDANSETRON 4 MG/2 ML VIAL ONE (23:10)
[2017-09-23 23:52] LABS: BASOPHIL 0.2 % (0-2.0); MCH 33.5 pg (25.7-33.7); MCHC 34.9 g/dl (32.0-36.0); MEAN PLT VOLUME 10.4 fl (7.5-11.1); NEUTROPHILS 82.1 % (42.8-82.8); PLATELET COUNT 143 K/MM3 (134-434); WHITE BLOOD COUNT 6.8 K/mm3 (4.0-10.0)
[2017-09-24 00:26] LABS: ALBUMIN 4.3 g/dl (3.4-5.0); ANION GAP 13 (8-16); CALCIUM 8.8 mg/dL (8.5-10.1); CO2 24 mmol/L (21-32); GLUCOSE,RANDOM 115 mg/dL (74-106)
[2017-09-24] MEDS ORDERED: METOCLOPRAMIDE HCL INJECTION 10 MG/2 ML VIAL ONE (00:29)
[2017-09-24 00:30] LABS: ALK PHOS 186 U/L (45-117); BILIRUBIN,TOTAL 1.7 mg/dL (0.2-1.0); CREATININE 0.7 mg/dL (0.55-1.02); SGOT/AST 97 U/L (15-37); SGPT/ALT 105 U/L (12-78); TOT PROT 9.1 g/dl (6.4-8.2)
[2017-09-24] MEDS ORDERED: MAGNESIUM SULF 50% (8.12 MEQ/2 ML-1 GM VIAL) IVPB ONE (00:38)
[2017-09-24] MEDS ORDERED: EPINEPHrine/PF 1 MG/1 ML (1:1,000) AMPULE ONE (00:49)
[2017-09-24] MEDS ORDERED: EPINEPHrine 1:1,000 1 MG/1 ML - 30ML VIAL (INJECTION) SQ ONE (01:15)
[2017-09-24] MEDS ORDERED: MAGNESIUM SULF 50% (8.12 MEQ/2 ML-1 GM VIAL) ONE (01:58)
[2017-09-24] MEDS ORDERED: KCL 10 MEQ IVPB 10 MEQ/100 ML INFUS.BAG IVPB ONE ×2 (01:58→03:24)
[2017-09-24] MEDS: KCL 10 MEQ IVPB 10 MEQ/100 ML INFUS.BAG IVPB SCH ×3 (02:06→05:25)
--- NOTE | 2017-09-24 02:16 | HP ---
CHIEF COMPLAINT: abdominal pain and vomiting PCP: [facility] HISTORY OF PRESENT ILLNESS: 46 yr old woman with polysubstance abuse, bipolar d/o, presents with abdominal pain and vomiting since last night. Abdominal pain is in the epigastrium associating with nonbilous nonbloody vomiting since 5am Tuesday. She had numerous episodes of vomiting, yellow, liquidy, small amount each time. Last drink late night. she had been drinking 1/2 gallon of vodka, denies eating or drinking anything along with the vodka. Once the abdominal pain started it has been intermittently 10/10. In the ED she was given famotadine and zofran, and developed acute angioedema with tongue swelling, she was immediately given benadryl and epinephrine which resolved her symptoms ER course was notable for: (1) acute angioedema (2) cxy (3) transaminitis Recent Travel: denies PAST MEDICAL HISTORY: chart reviewed for additional information Hep C Bipolar d/o ETOH/marijuana/heroin abuse methadone maintenance left Distal fibular fracture in 09/2016 anemia PAST SURGICAL HISTORY: Tubal ligation x2 Right leg below knee - removal of "skin tumor" at 9yrs old Social History: 11 healthy children, . Smoking: current every day 3cigs/day, 6 yrs. Alcohol:7 yrs on and off, last drink Drugs: methadone maintenance 80mg po daily, smokes marijuana occasionaly 2-3x week Family History: sister 52, "throat cancer" Father age 56, "throat cancer" Maternal grandmother with breast cancer(unknown age of dx), from [place] Allergies prochlorperazine maleate [From Compazine] Allergy (Severe, Verified 09/23/17 21: 47) DYSTONIA metoclopramide HCl [From Reglan] Allergy (Verified 09/23/17 21:47) prochlorperazine edisylate [From Compazine] Allergy (Verified 09/23/17 21:47) HOME MEDICATIONS: Home Medications Medication Instructions Recorded Methadone [Dolophine -] 80 mg PO DAILY 09/13/16 Diphenhydramine HCl [Benadryl 25 mg PO BID PRN 07/18/17 Capsule -] Hypromellose 0.5% Opth Soln 1 drop AU DAILY 07/18/17 [Artificial Tears] Multivitamin [One Daily] 1 tab PO DAILY 07/18/17 Divalproex [Depakote -] 250 mg PO TID #90 tab.ec 07/19/17 Docusate Sodium [Colace -] 100 mg PO DAILY PRN #30 cap 07/19/17 Fluticasone Prop 0.05% Nasal 1 spray NS DAILY #1 bottle 07/19/17 [Flonase -] Folic Acid 1 mg PO DAILY #30 tablet 07/19/17 Gabapentin 100 mg PO TID #90 capsule 07/19/17 Melatonin 10 mg PO HS PRN #30 cap 07/19/17 Quetiapine Fumarate [Seroquel] 300 mg PO BID #60 tablet 07/19/17 Thiamine HCl [Vitamin B1 -] 1 tab PO DAILY #30 tablet 07/19/17 REVIEW OF SYSTEMS CONSTITUTIONAL: Absent: fever, chills, diaphoresis, generalized weakness, malaise, loss of appetite, weight change HEENT: Absent: rhinorrhea, nasal congestion, throat pain, throat swelling, difficulty swallowing, mouth swelling, eye pain, visual changes CARDIOVASCULAR: Absent: chest pain, syncope, palpitations, irregular heart rate, lightheadedness , peripheral edema RESPIRATORY: Absent: cough, shortness of breath, dyspnea with exertion, orthopnea, wheezing, stridor, hemoptysis GASTROINTESTINAL: Present: abdominal pain,nausea, vomiting, Absent: abdominal distension, diarrhea, constipation, melena, hematochezia GENITOURINARY: Absent: dysuria, frequency, urgency, hesitancy, hematuria, flank pain, genital pain MUSCULOSKELETAL: present: back pain Absent: myalgia, arthralgia, joint swelling,, neck pain SKIN: Absent: rash, itching, pallor HEMATOLOGIC/IMMUNOLOGIC: Absent: easy bleeding, easy bruising, lymphadenopathy, frequent infections ENDOCRINE: Absent: unexplained weight gain, unexplained weight loss, heat intolerance, cold intolerance NEUROLOGIC: Present:headache, Absent: focal weakness or paresthesias, dizziness, unsteady gait, seizure, mental status changes, bladder or bowel incontinence PHYSICAL EXAMINATION Vital Signs - 24 hr 09/23/17 21:47 Temperature 100.2 F H Pulse Rate 92 H Respiratory 20 Rate Blood Pressure 154/109 O2 Sat by Pulse 100 Oximetry (%) GENERAL: Awake, alert, and fully oriented, in no acute distress. HEAD: Normal with no signs of trauma. EYES: Pupils equal, round and reactive to light, extraocular movements intact, sclera anicteric, conjunctiva clear. No lid lag. EARS, NOSE, THROAT: Ears normal, nares patent, oropharynx clear without exudates. Moist mucous membranes. edentulism, no oral lesions, no tongue or uvula deviation, erythema or swelliung. NECK: Normal range of motion, supple without lymphadenopathy, JVD, or masses. LUNGS: Breath sounds equal, clear to auscultation bilaterally. No wheezes, and no crackles. No accessory muscle use. HEART: Regular rate and rhythm, normal S1 and S2 without murmur, rub or gallop. ABDOMEN: Soft, nontender, not distended, normoactive bowel sounds, no guarding, no rebound, no masses. MUSCULOSKELETAL: Normal range of motion at all joints. No bony deformities or tenderness. No CVA tenderness. UPPER EXTREMITIES: 2+ radial pulses, warm, well-perfused. No cyanosis. No clubbing. No peripheral edema. LOWER EXTREMITIES: 2+ dp pulses, warm, well-perfused. No calf tenderness. No peripheral edema. NEUROLOGICAL: Cranial nerves II-XII intact. Normal speech. PSYCHIATRIC: Cooperative. Good eye contact. Appropriate mood and affect. SKIN: Warm, dry, normal turgor, no rashes or lesions noted, normal capillary refill. Laboratory Results - last 24 hr 09/23/17 09/23/17 09/23/17 23:00 23:00 23:00 WBC 6.8 D RBC 4.37 Hgb 14.6 D Hct 41.9 MCV 96.0 MCH 33.5 MCHC 34.9 RDW 14.0 Plt Count 143 D MPV 10.4 Neutrophils % 82.1 D Lymphocytes % 13.3 D Monocytes % 4.4 Eosinophils % 0.0 D Basophils % 0.2 Sodium 136 Potassium 3.2 L Chloride 99 Carbon Dioxide 24 Anion Gap 13 BUN 11 D Creatinine 0.7 Creat Clearance w eGFR > 60 Random Glucose 115 H Calcium 8.8 Total Bilirubin 1.7 H D AST 97 H D ALT 105 H D Alkaline Phosphatase 186 H Total Protein 9.1 H D Albumin 4.3 D Total Amylase 113 Lipase Serum , Qual 09/23/17 09/23/17 23:00 23:00 WBC RBC Hgb Hct MCV MCH MCHC RDW Plt Count MPV Neutrophils % Lymphocytes % Monocytes % Eosinophils % Basophils % Sodium Potassium Chloride Carbon Dioxide Anion Gap BUN Creatinine Creat Clearance w eGFR Random Glucose Calcium Total Bilirubin AST ALT Alkaline Phosphatase Total Protein Albumin Total Amylase Lipase 326 Serum , Qual Negative ASSESSMENT/PLAN: 47 yr old woman presents with polysubstance use c/o abdominal pain and had acute angioedema relieved with benadryl and epinephrine admitted for monitoring of angioedema, further evaluation of her vomiting/abdominal pain. - medrec could not be verified overnight, meds need to be verified with pharmacy #Angioedema - prednisone 20mg po daily - benadryl 25mg po in the AM, reeval for continue use to prevent reoccurance of angioedema #Vomiting - likely gastritis secondary to etoh, (lipase low, unlikely to be pancreatitis) - consider protonix 40mg IVPB bid if sx do not improve (pt cannot tolerate reglan, avoid zofran, famotadine) - no repeat episodes of vomiting since admission, advance diet as tolerated #Transaminitis - likely due to ETOH use, trend #ETOH withdrawal - CIWA score 5 - started on librium protocol - IVF #Methadone maintenance - dose to be confirmed in the AM, says she missed her Tuesday dose due to the vomiting and feels that she is starting to withdraw #Smoking - declined nicotine patch, will provide smoking cessation information at discharge. patient has agreed to not try to leave the building to smoking with under hospitalist care #diet - advance diet as tolerated #Dispo may benefit from [facility] once medically stable to continue detox Visit type - Emergency Visit Emergency Visit: Yes ED Registration Date: 09/24/17 Care time: The patient presented to the Emergency Department on the above date and was hospitalized for further evaluation of their emergent condition. - New Patient This patient is new to me today: Yes Date on this admission: 09/24/17 - Critical Care Critical Care patient: No
[2017-09-24] MEDS ORDERED: METHADONE HCL 10 MG TABLET ONE (02:37)
--- NOTE | 2017-09-24 04:42 | PN ---
Teaching Attending Note Name of Resident: Curly Raphael ATTENDING PHYSICIAN STATEMENT I saw and evaluated the patient. I reviewed the resident's note and discussed the case with the resident. I agree with the resident's findings and plan as documented. SUBJECTIVE: OBJECTIVE: ASSESSMENT AND PLAN: 47 y/o female with hx of polysubstance abuse presented after the patient consumed half a gallon of liquor, in the ED she was complaining of nausea, patient was given ondasteron and famitodine but developed an allergic reaction - patient is being admitted to observation for the allergic reaction plan: admit to observation c/w antihistamine start presdnisone 20mg daily c/w home medication alcohol withdrawal precautions chlorodiazoepoxide lorazepan 2mg IVP prn
[2017-09-24 05:08] VITALS: BMI 27.1
[2017-09-24] MEDS ORDERED: morphine SULFATE 4 MG/ML VIAL IVPB ONE (06:11)
[2017-09-24] MEDS: predniSONE 20 MG TABLET (UD) PO SCH (06:27)
[2017-09-24] MEDS ORDERED: chlordiazePOXIDE HCL 25 MG CAPSULE PO PRN (06:41)
[2017-09-24 08:03] LABS: ALBUMIN 3.7 g/dl (3.4-5.0); ANION GAP 9 (8-16); CO2 24 mmol/L (21-32); GLUCOSE,RANDOM 100 mg/dL (74-106); SGOT/AST 98 U/L (15-37); SGPT/ALT 88 U/L (12-78)
[2017-09-24 08:06] LABS: ALK PHOS 149 U/L (45-117); BILIRUBIN,TOTAL 1.1 mg/dL (0.2-1.0); CALCIUM 7.9 mg/dL (8.5-10.1); CREATININE 0.7 mg/dL (0.55-1.02); TOT PROT 7.8 g/dl (6.4-8.2)
--- NOTE | 2017-09-24 08:18 | PN ---
Progress Note (short form) - Note Progress Note: Called by nurse for patient methadone; as per nurse patient methadone dose was confirmed by the automation engineer nurse with patient's methadone clinic. Methadone 80mg po daily.
--- NOTE | 2017-09-24 08:42 | PN ---
Physical Exam: SUBJECTIVE: Patient seen and examined No angioedema noted, back to her nl self. c/o feeling restless. no fever or chills, no shortness of breath. OBJECTIVE: Vital Signs Temperature 99.2 F 09/24/17 06:00 Pulse Rate 94 H 09/24/17 06:00 Respiratory Rate 20 09/24/17 06:00 Blood Pressure 146/102 09/24/17 06:00 O2 Sat by Pulse Oximetry (%) 98 09/24/17 03:09 GENERAL: The patient is awake, alert, and fully oriented, in no acute distress. feels restless HEAD: Normal with no signs of trauma. EYES: PERRL, extraocular movements intact, sclera anicteric, conjunctiva clear. No ptosis. ENT: Ears normal, nares patent, oropharynx clear without exudates, moist mucous membranes. NECK: Trachea midline, full range of motion, supple. LUNGS: Breath sounds equal, clear to auscultation bilaterally, no wheezes, no crackles, no accessory muscle use. HEART: Regular rate and rhythm, S1, S2 without murmur, rub or gallop. ABDOMEN: Soft, nontender, nondistended, normoactive bowel sounds, no guarding, no rebound. EXTREMITIES: 2+ pulses, warm, well-perfused, no edema. NEUROLOGICAL: Cranial nerves II through XII grossly intact. Normal speech, gait is stable. PSYCH: Normal mood, normal affect. SKIN: Warm, dry, normal turgor, no rashes or lesions noted CBCD WBC 6.8 K/mm3 (4.0-10.0) D 09/23/17 23:00 RBC 4.37 M/mm3 (3.60-5.2) 09/23/17 23:00 Hgb 14.6 GM/dL (10.7-15.3) D 09/23/17 23:00 Hct 41.9 % (32.4-45.2) 09/23/17 23:00 MCV 96.0 fl (80-96) 09/23/17 23:00 MCHC 34.9 g/dl (32.0-36.0) 09/23/17 23:00 RDW 14.0 % (11.6-15.6) 09/23/17 23:00 Plt Count 143 K/MM3 (134-434) D 09/23/17 23:00 MPV 10.4 fl (7.5-11.1) 09/23/17 23:00 CMP Sodium 136 mmol/L (136-145) 09/23/17 23:00 Potassium 3.2 mmol/L (3.5-5.1) L 09/23/17 23:00 Chloride 99 mmol/L (98-107) 09/23/17 23:00 Carbon Dioxide 24 mmol/L (21-32) 09/23/17 23:00 Anion Gap 13 (8-16) 09/23/17 23:00 BUN 11 mg/dL (7-18) D 09/23/17 23:00 Creatinine 0.7 mg/dL (0.55-1.02) 09/23/17 23:00 Creat Clearance w eGFR > 60 (>60) 09/23/17 23:00 Random Glucose 115 mg/dL (74-106) H 09/23/17 23:00 Calcium 8.8 mg/dL (8.5-10.1) 09/23/17 23:00 Total Bilirubin 1.7 mg/dL (0.2-1.0) H D 09/23/17 23:00 AST 97 U/L (15-37) H D 09/23/17 23:00 ALT 105 U/L (12-78) H D 09/23/17 23:00 Alkaline Phosphatase 186 U/L (45-117) H 09/23/17 23:00 Total Protein 9.1 g/dl (6.4-8.2) H D 09/23/17 23:00 Albumin 4.3 g/dl (3.4-5.0) D 09/23/17 23:00 home meds. Medication Instructions Recorded Confirmed Type Methadone [Dolophine -] 80 mg PO DAILY 09/13/16 09/24/17 History Diphenhydramine HCl [Benadryl 25 mg PO BID PRN 07/18/17 09/24/17 History Capsule -] Hypromellose 0.5% Opth Soln 1 drop AU DAILY 07/18/17 09/24/17 History [Artificial Tears] Multivitamin [One Daily] 1 tab PO DAILY 07/18/17 09/24/17 History Active Medications Generic Name Dose Route Start Last Admin Trade Name Freq PRN Reason Stop Dose Admin Chlordiazepoxide HCl 50 mg 09/24/17 05:00 09/24/17 17:04 Librium - PO 09/24/17 23:01 50 mg [id number] [id number] Administration Chlordiazepoxide HCl 25 mg 09/25/17 05:00 Librium - PO 09/25/17 23:01 [id number] GONZALEZ Chlordiazepoxide HCl 15 mg 09/26/17 05:00 Librium - PO 09/26/17 23:01 [id number] GONZALEZ Chlordiazepoxide HCl 25 mg 09/24/17 06:41 Librium - PO 09/27/17 06:40 Q4H PRN WITHDRAWAL(CONT SUBST) Divalproex Sodium 250 mg 09/24/17 22:00 Depakote - PO TID GONZALEZ Folic Acid 1 mg 09/25/17 10:00 Folic Acid - PO DAILY [facility] Gabapentin 100 mg 09/24/17 22:00 Neurontin - PO TID [facility] Methadone HCl 80 mg 09/25/17 06:00 Dolophine - PO DAILY@0600 GONZALEZ Pantoprazole Sodium 40 mg 09/24/17 13:00 09/24/17 13:08 Protonix - PO 40 mg DAILY GONZALEZ Administration Prednisone 20 mg 09/24/17 05:30 09/24/17 06:27 Deltasone - PO 20 mg DAILY GONZALEZ Administration Quetiapine Fumarate 300 mg 09/24/17 22:00 Seroquel - PO BID [facility] Thiamine HCl mg 09/25/17 10:00 Vitamin B1 - PO DAILY [facility] A/P: 47 y/o female with hx of polysubstance abuse presented after the patient consumed half a gallon of liquor. In the ED she was complaining of nausea, patient was given ondasteron and famitodine but developed an allergic reaction - patient is being admitted for having an allergic reaction, and alcohol detox. # Alcohol dependency with withdrawal r/o DT. On Librium protocol , lorazepan 2mg IVP prn # Acute allergic reaction to zofran and Pepcid resolved on prednisone 20mg daily with food, will taper # Hx of Bipolar will continue her home meds. # Hx of polysubstrance abuse on Methadone protocol continue. DVT Px: early ambutation, Lovenox sq Visit type - Emergency Visit Emergency Visit: Yes ED Registration Date: 09/24/17 Care time: The patient presented to the Emergency Department on the above date and was hospitalized for further evaluation of their emergent condition. - New Patient This patient is new to me today: Yes Date on this admission: 09/24/17 - Critical Care Critical Care patient: No
[2017-09-24] MEDS ORDERED: METHADONE HCL 10 MG TABLET PO ONE (08:45)
[2017-09-24] MEDS ORDERED: diphenhydrAMINE HCL 25 MG CAPSULE (FP) PO ONE (10:00)
[2017-09-24] MEDS: chlordiazePOXIDE HCL 25 MG CAPSULE PO SCH ×4 (11:15→23:21)
[2017-09-24] MEDS: PANTOPRAZOLE 40 MG TABLET (FP) PO SCH (13:08)
[2017-09-24 17:25] LABS: URINE MARIJUANA THC POSITIVE ng/ml (CUTOFF=50)
[2017-09-24] MEDS: GABAPENTIN 100 MG CAPSULE (FP) PO SCH (21:49)
[2017-09-24] MEDS: DIVALPROEX SODIUM 250 MG TABLET E.C. (FP) PO SCH (21:49)
[2017-09-24] MEDS ORDERED: QUEtiapine FUMARATE 300 MG TABLET PO SCH (22:00)
[2017-09-25] MEDS: GABAPENTIN 100 MG CAPSULE (FP) PO SCH ×3 (06:54→21:04)
[2017-09-25] MEDS: METHADONE HCL 40 MG DISPERSABLE TABLET PO SCH (06:54)
[2017-09-25] MEDS: chlordiazePOXIDE HCL 25 MG CAPSULE PO SCH ×5 (06:54→22:06)
[2017-09-25] MEDS: DIVALPROEX SODIUM 250 MG TABLET E.C. (FP) PO SCH ×3 (06:54→21:04)
[2017-09-25 07:26] LABS: BASOPHIL 0.6 % (0-2.0); EOSINOPHIL 0.4 % (0-4.5); MCH 32.9 pg (25.7-33.7); MCHC 33.5 g/dl (32.0-36.0); MEAN CELL VOLUME 98.1 fl (80-96); MEAN PLT VOLUME 10.1 fl (7.5-11.1); NEUTROPHILS 51.7 % (42.8-82.8); RDW 14.3 % (11.6-15.6); WHITE BLOOD COUNT 6.6 K/mm3 (4.0-10.0)
[2017-09-25 08:09] LABS: ALBUMIN 3.7 g/dl (3.4-5.0); ALK PHOS 137 U/L (45-117); ANION GAP 10 (8-16); BILIRUBIN,TOTAL 1.5 mg/dL (0.2-1.0); CALCIUM 8.3 mg/dL (8.5-10.1); CO2 24 mmol/L (21-32); CREATININE 1.1 mg/dL (0.55-1.02); GLUCOSE,RANDOM 122 mg/dL (74-106); MAGNESIUM 2.5 mg/dL (1.8-2.4); PHOSPHOROUS 1.6 mg/dL (2.5-4.9); SGOT/AST 82 U/L (15-37); SGPT/ALT 77 U/L (12-78); TOT PROT 7.7 g/dl (6.4-8.2)
[2017-09-25 08:25] LABS: PLATELET COUNT 106 K/MM3 (134-434)
[2017-09-25] MEDS ORDERED: PT OWN MED DRAWER 7, Y5N ONE ×3 (09:33→21:03)
[2017-09-25] MEDS: FOLIC ACID 1 MG TABLET (FP) PO SCH (09:35)
[2017-09-25] MEDS: THIAMINE HCL 100 MG TABLET (FP) PO SCH (09:35)
[2017-09-25] MEDS: QUEtiapine FUMARATE 100 MG TABLET (FP) PO SCH ×2 (09:35→21:04)
[2017-09-25] MEDS: PANTOPRAZOLE 40 MG TABLET (FP) PO SCH (09:35)
[2017-09-25] MEDS: predniSONE 20 MG TABLET (UD) PO SCH (09:35)
--- NOTE | 2017-09-25 13:32 | CONSULT ---
Consult Detox [facility] Reason for Current Admission/Consult: alcohol use disorder Referred by:: Rob baig MD - History Source History Provided By: Medical Record - Alcohol/Substance Use Hx Alcohol Use: No - Past Medical History Gastrointestinal: Yes: Pancreatitis Hepatobiliary: Yes: Hepatitis C ...LMP: 08/24/17 ...: No Infectious Disease: Yes: HIV Psych: Yes: Addictions, Bipolar - Past Surgical History Past Surgical History: Yes: None CIWA Score - CIWA Score Nausea/Vomitin Muscle Tremors: None Anxiety: 0-No Anxiety, at Ease Agitation: 0-Normal Activity Paroxysmal Sweats: No Perspiration Orientation: 0-Oriented Tacttile Disturbances: 0-None Auditory Disturbances: 0-None Visual Disturbances: 0-None Headache: 0-None Present CIWA-Ar Total Score: 2 Assessment Plan - Diagnosis (1) Opioid dependence on agonist therapy Status: Acute (2) Hepatitis C Status: Deleted Qualifiers: Comment: Recommended additional testing, but pt's insurance has her restricted to certain facilities; pt to address insurance issues and rtc for labs Discussed need for referral to GI as well to address her abnormal MRI, dysphagia , and pancreatitis. Avoid etoh. (3) Abdominal pain Status: Deleted (4) Hyperbilirubinemia Status: Acute (5) Nicotine dependence Status: Deleted - Plan Plan: Patient will complete alcohol detox today, can d/c prn libirum, cont methadone as prescribed. Arrange for rehab bed at [facility]. If bed available and insurance covers admission can transfer today. Amadou Littlejohn MD [phone] - Medication Detox Regimen/Protocol: Librium
--- NOTE | 2017-09-25 15:22 | PN ---
Progress Note (short form) - Note Progress Note: Patient feels comfortable , feels itchy at times. No acute distress. Vital Signs Temperature 98.4 F 09/25/17 14:46 Pulse Rate 100 H 09/25/17 14:46 Respiratory Rate 16 09/25/17 14:46 Blood Pressure 100/65 09/25/17 14:46 O2 Sat by Pulse Oximetry (%) 98 09/25/17 09:00 GENERAL: The patient is awake, alert, and fully oriented, in no acute distress. feels restless HEAD: Normal with no signs of trauma. EYES: PERRL, extraocular movements intact, sclera anicteric, conjunctiva clear. ENT: Ears normal, oropharynx clear without exudates, moist mucous membranes. NECK: Trachea midline, full range of motion, supple. LUNGS: Breath sounds equal, clear to auscultation bilaterally, no wheezes, no crackles, no accessory muscle use. HEART: Regular rate and rhythm, S1, S2 without murmur, rub or gallop. ABDOMEN: Soft, nontender, nondistended, normoactive bowel sounds, no guarding, no rebound. EXTREMITIES: 2+ pulses, warm, well-perfused, no edema. NEUROLOGICAL: Cranial nerves II through XII grossly intact. Normal speech, gait is stable. PSYCH: Normal mood, normal affect. SKIN: Warm, dry, normal turgor, no rashes or lesions noted, itchiness at times. CBCD WBC 6.6 K/mm3 (4.0-10.0) 09/25/17 06:00 RBC 4.25 M/mm3 (3.60-5.2) 09/25/17 06:00 Hgb 14.0 GM/dL (10.7-15.3) 09/25/17 06:00 Hct 41.7 % (32.4-45.2) 09/25/17 06:00 MCV 98.1 fl (80-96) H 09/25/17 06:00 MCHC 33.5 g/dl (32.0-36.0) 09/25/17 06:00 RDW 14.3 % (11.6-15.6) 09/25/17 06:00 Plt Count 106 K/MM3 (134-434) L D 09/25/17 06:00 MPV 10.1 fl (7.5-11.1) 09/25/17 06:00 CMP Sodium 137 mmol/L (136-145) 09/25/17 06:00 Potassium 3.5 mmol/L (3.5-5.1) 09/25/17 06:00 Chloride 103 mmol/L (98-107) 09/25/17 06:00 Carbon Dioxide 24 mmol/L (21-32) 09/25/17 06:00 Anion Gap 10 (8-16) 09/25/17 06:00 BUN 13 mg/dL (7-18) D 09/25/17 06:00 Creatinine 1.1 mg/dL (0.55-1.02) H D 09/25/17 06:00 Creat Clearance w eGFR 53.47 (>60) 09/25/17 06:00 Random Glucose 122 mg/dL (74-106) H D 09/25/17 06:00 Calcium 8.3 mg/dL (8.5-10.1) L 09/25/17 06:00 Total Bilirubin 1.5 mg/dL (0.2-1.0) H D 09/25/17 06:00 AST 82 U/L (15-37) H 09/25/17 06:00 ALT 77 U/L (12-78) 09/25/17 06:00 Alkaline Phosphatase 137 U/L (45-117) H 09/25/17 06:00 Total Protein 7.7 g/dl (6.4-8.2) 09/25/17 06:00 Albumin 3.7 g/dl (3.4-5.0) 09/25/17 06:00 Current Medications Generic Name Dose Route Start Last Admin Trade Name Freq PRN Reason Stop Dose Admin Chlordiazepoxide HCl 25 mg 09/25/17 05:00 09/25/17 11:16 Librium - PO 09/25/17 23:01 25 mg [id number] GONZALEZ Administration Chlordiazepoxide HCl 15 mg 09/26/17 05:00 Librium - PO 09/26/17 23:01 [id number] GONZALEZ Chlordiazepoxide HCl 25 mg 09/24/17 06:41 Librium - PO 09/27/17 06:40 Q4H PRN WITHDRAWAL(CONT SUBST) Divalproex Sodium 250 mg 09/24/17 22:00 09/25/17 14:51 Depakote - PO 250 mg TID GONZALEZ Administration Folic Acid 1 mg 09/25/17 10:00 09/25/17 09:35 Folic Acid - PO 1 mg DAILY GONZALEZ Administration Gabapentin 100 mg 09/24/17 22:00 09/25/17 14:51 Neurontin - PO 100 mg TID GONZALEZ Administration Methadone HCl 80 mg 09/25/17 06:00 09/25/17 06:54 Dolophine - PO 80 mg DAILY@0600 GONZALEZ Administration Pantoprazole Sodium 40 mg 09/24/17 13:00 09/25/17 09:35 Protonix - PO 40 mg DAILY GONZALEZ Administration Prednisone 20 mg 09/24/17 05:30 09/25/17 09:35 Deltasone - PO 20 mg DAILY GONZALEZ Administration Quetiapine Fumarate 300 mg 09/25/17 10:00 09/25/17 09:35 Seroquel - PO 300 mg BID GONZALEZ Administration Thiamine HCl 100 mg 09/25/17 10:00 09/25/17 09:35 Vitamin B1 - PO 100 mg DAILY GONZALEZ Administration Home Medications Medication Instructions Recorded Methadone [Dolophine -] 80 mg PO DAILY 09/13/16 Diphenhydramine HCl [Benadryl 25 mg PO BID PRN 07/18/17 Capsule -] Hypromellose 0.5% Opth Soln 1 drop AU DAILY 07/18/17 [Artificial Tears] Multivitamin [One Daily] 1 tab PO DAILY 07/18/17 Divalproex [Depakote -] 250 mg PO TID #90 tab.ec 07/19/17 Docusate Sodium [Colace -] 100 mg PO DAILY PRN #30 cap 07/19/17 Fluticasone Prop 0.05% Nasal 1 spray NS DAILY #1 bottle 07/19/17 [Flonase -] Folic Acid 1 mg PO DAILY #30 tablet 07/19/17 Gabapentin 100 mg PO TID #90 capsule 07/19/17 Quetiapine Fumarate [Seroquel] 300 mg PO BID #60 tablet 07/19/17 Thiamine HCl [Vitamin B1 -] 1 tab PO DAILY #30 tablet 07/19/17 A/P: 47 y/o female with hx of polysubstance abuse presented after the patient consumed half a gallon of liquor. In the ED she was complaining of nausea, patient was given ondasteron and famitodine but developed an allergic reaction - patient is being admitted for having an allergic reaction, and alcohol detox. # Alcohol dependency with withdrawal r/o DT. On Librium protocol continue , lorazepan 2mg IVP prn # Acute allergic reaction to zofran and Pepcid resolved on prednisone 20mg daily with food, and benadryl po q12h prn # Hx of Bipolar will continue her home meds. # Hx of polysubstrance abuse on Methadone protocol continue. DVT Px: early ambutation, Lovenox sq possible dc in am Visit type - Emergency Visit Emergency Visit: Yes ED Registration Date: 09/24/17 Care time: The patient presented to the Emergency Department on the above date and was hospitalized for further evaluation of their emergent condition. - New Patient This patient is new to me today: No - Critical Care Critical Care patient: No
[2017-09-25] MEDS: diphenhydrAMINE HCL 25 MG CAPSULE (FP) PO PRN (16:16)
[2017-09-25] MEDS ORDERED: ALPRAZolam 0.25 MG TABLET PO ONE (20:15)
[2017-09-25] MEDS ORDERED: diphenhydrAMINE HCL 25 MG CAPSULE (FP) PO ONE (21:37)
[2017-09-26] MEDS ORDERED: LORazepam 2 MG/ML SDV VIAL IVPUSH ONE ×3 (03:26→08:07)
--- NOTE | 2017-09-26 03:34 | PN ---
Progress Note (short form) - Note Progress Note: RN called to inform us about patient behaviour. Pt received most recent Librium dose at 02:00h. Condition 10 called prior pertaining to patient acting out; security already present on arrival. Pt has been restless and anxious prior to the call described by nursing staff as pacing up and down with frequent walking into hallway from room. Pt yelling at all healthcare staff. PE: Unable to exam due to uncooperating pt and combativeness A/P Pt is most likely withdrawing despite her librium protocol Ativan 2mg IVP given once Qtc is 508; haldol CANNOT be used due to qtc prolonging qualities.
[2017-09-26] MEDS: diphenhydrAMINE HCL 25 MG CAPSULE (FP) PO PRN (04:08)
[2017-09-26] MEDS: chlordiazePOXIDE 5 MG CAPSULE PO SCH ×2 (04:17→12:32)
[2017-09-26] MEDS ORDERED: PT OWN MED DRAWER 7, Y5N ONE ×2 (05:09→12:29)
[2017-09-26] MEDS: GABAPENTIN 100 MG CAPSULE (FP) PO SCH (05:14)
[2017-09-26] MEDS: DIVALPROEX SODIUM 250 MG TABLET E.C. (FP) PO SCH (05:14)
[2017-09-26] MEDS: METHADONE HCL 40 MG DISPERSABLE TABLET PO SCH (05:14)
--- NOTE | 2017-09-26 06:45 | PN ---
Physical Exam: SUBJECTIVE: Patient seen by me this AM - Refused to answer any questions. Hostile towards interviewer, becoming physically/verbally threatening - Acutely agitated per nursing staff overnight. Pacing down halls, yelling at staff. Require ativan for sedation. On 1-to-1 monitoring OBJECTIVE: Vital Signs Intake & Output 09/23/17 09/24/17 09/25/17 09/26/17 23:59 23:59 23:59 23:59 Intake Total 200 200 Balance 200 200 Weight 63.503 kg 65.045 kg Period Temp Pulse Resp BP Sys/Moore Pulse Ox Last 24 Hr 98.2 F-98.8 F 94-107 16-20 96-116/60-66 96-98 Limited as pt refused to be examined GENERAL: A&Ox0. Delirious, aggressive. Unable to articulate responses well. Became aggressive with interviewer physically during meeting. HEAD: NCAT EYES: sclera anicteric, conjunctiva clear. No ptosis. ENT: Ears normal, nares patent, NECK: Trachea midline HEART: Regular rate and rhythm, S1, S2 without murmur, rub or gallop. NEUROLOGICAL: Incoherent, tangential speech. PSYCH: Aggressive, angry. Physically hostile with care team/interviewer Laboratory Results - last 24 hr CBC, BMP 09/25/17 06:00 09/25/17 06:00 09/25/17 09/25/17 06:00 06:00 WBC 6.6 RBC 4.25 Hgb 14.0 Hct 41.7 MCV 98.1 H MCH 32.9 MCHC 33.5 RDW 14.3 Plt Count 106 L D MPV 10.1 Neutrophils % 51.7 D Lymphocytes % 39.8 D Monocytes % 7.5 Eosinophils % 0.4 D Basophils % 0.6 Sodium 137 Potassium 3.5 Chloride 103 Carbon Dioxide 24 Anion Gap 10 BUN 13 D Creatinine 1.1 H D Creat Clearance w eGFR 53.47 Random Glucose 122 H D Calcium 8.3 L Phosphorus 1.6 L D Magnesium 2.5 H D Total Bilirubin 1.5 H D AST 82 H ALT 77 Alkaline Phosphatase 137 H Total Protein 7.7 Albumin 3.7 Active Medications Generic Name Dose Route Start Last Admin Trade Name Freq PRN Reason Stop Dose Admin Chlordiazepoxide HCl 15 mg 09/26/17 05:00 09/26/17 04:17 Librium - PO 09/26/17 23:01 15 mg [id number] GONZALEZ Administration Chlordiazepoxide HCl 25 mg 09/24/17 06:41 09/26/17 01:52 Librium - PO 09/27/17 06:40 25 mg Q4H PRN Administration WITHDRAWAL(CONT SUBST) Diphenhydramine HCl 25 mg 09/25/17 15:24 09/26/17 04:08 Benadryl - PO 25 mg Q12H PRN Administration FOR ITCHING Divalproex Sodium 250 mg 09/24/17 22:00 09/26/17 05:14 Depakote - PO 250 mg TID GONZALEZ Administration Folic Acid 1 mg 09/25/17 10:00 09/25/17 09:35 Folic Acid - PO 1 mg DAILY GONZALEZ Administration Gabapentin 100 mg 09/24/17 22:00 09/26/17 05:14 Neurontin - PO 100 mg TID GONZALEZ Administration Methadone HCl 80 mg 09/25/17 06:00 09/26/17 05:14 Dolophine - PO 80 mg DAILY@0600 GONZALEZ Administration Pantoprazole Sodium 40 mg 09/24/17 13:00 09/25/17 09:35 Protonix - PO 40 mg DAILY GONZALEZ Administration Prednisone 20 mg 09/24/17 05:30 09/25/17 09:35 Deltasone - PO 20 mg DAILY GONZALEZ Administration Quetiapine Fumarate 300 mg 09/25/17 10:00 09/25/17 21:04 Seroquel - PO 300 mg BID GONZALEZ Administration Thiamine HCl 100 mg 09/25/17 10:00 09/25/17 09:35 Vitamin B1 - PO 100 mg DAILY GONZALEZ Administration Microbiology 09/23/17 23:00 Blood - Peripheral Venous Blood Culture - Preliminary NO GROWTH OBTAINED AFTER 48 HOURS, INCUBATION TO CONTINUE FOR 3 DAYS. 09/23/17 23:00 Blood - Peripheral Venous Blood Culture - Preliminary NO GROWTH OBTAINED AFTER 48 HOURS, INCUBATION TO CONTINUE FOR 3 DAYS. Recent Imaging: CXR 09/24 - No acute pathology or interval change since prior CXR in 12/2016. ASSESSMENT/PLAN: 47 yo female w/ hx of PSA, initially presented abdominal pain/vomiting in ED on 09/23 after consuming half a gallon of liquor, subsequently developing angioedema after receiving zofran/famotadine requiring benadryl/epinephrine with resolutin of symptoms. Admitted for allergic reaction and alcohol detox. Will discharge today to [facility] for inpatient rehab. #Anaphylaxis/angioedema - Benadryl 25 mg BID - d/c prednisone - avoid zofran/famotidine in future to avoid possible anaphylaxis #Alcohol addiction - Complete librium taper. - [facility] #Bipolar disoder - Continue home seroquel, depakote - Outpt psych f/u - Gabapentin for #PSA - Rehab bed at [facility]. Plan to discharge today - Methadone protocol as outpt #GERD - Protonix 40mg po daily #Transaminitis - Resolved #Electolyte abnormalities - Repleted before discharge - Given neutra-phos, mag sulfate Dispo: Discharge to [facility] inpatient rehab facility. F/u with outpt psych, PCP , addiction specialists Plan discussed with attending, Dr. Nathalia Morton, PGY1 Visit type - Emergency Visit Emergency Visit: No - New Patient This patient is new to me today: Yes Date on this admission: 09/26/17 - Critical Care Critical Care patient: No
[2017-09-26] MEDS ORDERED: SIMETHICONE 80 MG TAB.CHEW (FP) PO PRN (08:46)
[2017-09-26] MEDS ORDERED: POTASSIUM CHLORIDE TABS 20 MEQ TABLET.ER (FP) PO ONE (11:00)
[2017-09-26 11:36] VITALS: BP 122/89; PULSE 96; TEMP 97.8
[2017-09-26] MEDS: FOLIC ACID 1 MG TABLET (FP) PO SCH (12:31)
[2017-09-26] MEDS: QUEtiapine FUMARATE 100 MG TABLET (FP) PO SCH (12:32)
[2017-09-26] MEDS: PANTOPRAZOLE 40 MG TABLET (FP) PO SCH (12:32)
[2017-09-26] MEDS: THIAMINE HCL 100 MG TABLET (FP) PO SCH (12:33)
--- NOTE | 2017-09-26 18:26 | PN ---
Teaching Attending Note Name of Resident: Juliano Morton ATTENDING PHYSICIAN STATEMENT I saw and evaluated the patient. I reviewed the resident's note and discussed the case with the resident. I agree with the resident's findings and plan as documented. SUBJECTIVE: Patient is comfortable with no acute distress, going to rehab. OBJECTIVE: Vital Signs Temperature 97.8 F 09/26/17 08:40 Pulse Rate 96 H 09/26/17 08:40 Respiratory Rate 18 09/26/17 08:40 Blood Pressure 122/89 09/26/17 08:40 O2 Sat by Pulse Oximetry (%) 96 09/25/17 20:52 CBCD WBC 6.6 K/mm3 (4.0-10.0) 09/25/17 06:00 RBC 4.25 M/mm3 (3.60-5.2) 09/25/17 06:00 Hgb 14.0 GM/dL (10.7-15.3) 09/25/17 06:00 Hct 41.7 % (32.4-45.2) 09/25/17 06:00 MCV 98.1 fl (80-96) H 09/25/17 06:00 MCHC 33.5 g/dl (32.0-36.0) 09/25/17 06:00 RDW 14.3 % (11.6-15.6) 09/25/17 06:00 Plt Count 106 K/MM3 (134-434) L D 09/25/17 06:00 MPV 10.1 fl (7.5-11.1) 09/25/17 06:00 CMP Sodium 137 mmol/L (136-145) 09/25/17 06:00 Potassium 3.5 mmol/L (3.5-5.1) 09/25/17 06:00 Chloride 103 mmol/L (98-107) 09/25/17 06:00 Carbon Dioxide 24 mmol/L (21-32) 09/25/17 06:00 Anion Gap 10 (8-16) 09/25/17 06:00 BUN 13 mg/dL (7-18) D 09/25/17 06:00 Creatinine 1.1 mg/dL (0.55-1.02) H D 09/25/17 06:00 Creat Clearance w eGFR 53.47 (>60) 09/25/17 06:00 Random Glucose 122 mg/dL (74-106) H D 09/25/17 06:00 Calcium 8.3 mg/dL (8.5-10.1) L 09/25/17 06:00 Total Bilirubin 1.5 mg/dL (0.2-1.0) H D 09/25/17 06:00 AST 82 U/L (15-37) H 09/25/17 06:00 ALT 77 U/L (12-78) 09/25/17 06:00 Alkaline Phosphatase 137 U/L (45-117) H 09/25/17 06:00 Total Protein 7.7 g/dl (6.4-8.2) 09/25/17 06:00 Albumin 3.7 g/dl (3.4-5.0) 09/25/17 06:00 Home Medications Medication Instructions Recorded Methadone [Dolophine -] 80 mg PO ACBK 09/13/16 Diphenhydramine HCl [Benadryl 25 mg PO BID PRN 07/18/17 Capsule -] Hypromellose 0.5% Opth Soln 1 drop AU DAILY 07/18/17 [Artificial Tears] Multivitamin [One Daily] 1 tab PO DAILY 07/18/17 Divalproex [Depakote -] 250 mg PO TID #90 tab.ec 07/19/17 Docusate Sodium [Colace -] 100 mg PO DAILY PRN #30 cap 07/19/17 Fluticasone Prop 0.05% Nasal 1 spray NS DAILY #1 bottle 07/19/17 [Flonase -] Folic Acid 1 mg PO DAILY #30 tablet 07/19/17 Gabapentin 100 mg PO TID #90 capsule 07/19/17 Quetiapine Fumarate [Seroquel] 300 mg PO BID #60 tablet 07/19/17 Thiamine HCl [Vitamin B1 -] 1 tab PO DAILY #30 tablet 07/19/17 Chlordiazepoxide [Librium -] 15 mg PO [id number] capsule MDD 4 09/26/17 Chlordiazepoxide [Librium -] 25 mg PO Q4H PRN capsule MDD 6 09/26/17 Chlordiazepoxide [Librium -] 25 mg PO [id number] capsule MDD 4 09/26/17 Chlordiazepoxide [Librium -] 50 mg PO [id number] capsule MDD 4 09/26/17 Methadone [Dolophine -] 80 mg PO DAILY@0600 tablet MDD 1 09/26/17 Pantoprazole Sodium [Protonix -] 40 mg PO DAILY #30 tablet.ec 09/26/17 Simethicone [Mylicon -] 80 mg PO Q4H PRN tab.chew 09/26/17 PE: per resident's note ASSESSMENT AND PLAN: Patient is 47 y/o female with hx of polysubstance abuse presented after the patient consumed half a gallon of liquor. In the ED she was complaining of nausea, patient was given ondasteron and famitodine but developed an allergic reaction - patient is being admitted for having an allergic reaction, and alcohol detox. # Alcohol dependency with withdrawal continue Librium protocol in the rehab. # Acute allergic reaction to zofran and Pepcid resolved on prednisone 20mg daily and benadryl po q12h prn # Hx of Bipolar will continue her home meds. # Hx of polysubstrance abuse on Methadone protocol continue. Discharge patient to rehab. is accepted to continue detox in [facility].
--- NOTE | 2017-09-26 21:44 | DS ---
Physical Exam: SUBJECTIVE: Patient seen and examined by me this AM - Refused to answer any questions. Hostile towards interviewer during interview. Mildly delirious - Acutely agitated per nursing staff overnight. Pacing down halls, yelling at staff. Require ativan for sedation. On 1-to-1 monitoring. OBJECTIVE: Vital Signs Period Temp Pulse Resp BP Sys/Moore Pulse Ox Last 24 Hr 97.6 F-97.8 F 96-110 18-20 102-122/66-89 PHYSICAL EXAM Pt refused majority of exam GENERAL: A&Ox0. Delirious, aggressive. Unable to articulate responses well. Became aggressive with interviewer HEAD: NCAT EYES: sclera anicteric, conjunctiva clear. No ptosis. ENT: Ears normal, nares patent, NECK: Trachea midline HEART: Regular rate and rhythm, S1, S2 without murmur, rub or gallop. NEUROLOGICAL: Incoherent, tangential speech. PSYCH: Aggressive, angry. Physically hostile with care team/interviewer LABS Laboratory Last Values WBC 6.6 K/mm3 (4.0-10.0) 09/25/17 06:00 RBC 4.25 M/mm3 (3.60-5.2) 09/25/17 06:00 Hgb 14.0 GM/dL (10.7-15.3) 09/25/17 06:00 Hct 41.7 % (32.4-45.2) 09/25/17 06:00 MCV 98.1 fl (80-96) H 09/25/17 06:00 MCH 32.9 pg (25.7-33.7) 09/25/17 06:00 MCHC 33.5 g/dl (32.0-36.0) 09/25/17 06:00 RDW 14.3 % (11.6-15.6) 09/25/17 06:00 Plt Count 106 K/MM3 (134-434) L D 09/25/17 06:00 MPV 10.1 fl (7.5-11.1) 09/25/17 06:00 Neutrophils % 51.7 % (42.8-82.8) D 09/25/17 06:00 Lymphocytes % 39.8 % (8-40) D 09/25/17 06:00 Monocytes % 7.5 % (3.8-10.2) 09/25/17 06:00 Eosinophils % 0.4 % (0-4.5) D 09/25/17 06:00 Basophils % 0.6 % (0-2.0) 09/25/17 06:00 Sodium 137 mmol/L (136-145) 09/25/17 06:00 Potassium 3.5 mmol/L (3.5-5.1) 09/25/17 06:00 Chloride 103 mmol/L (98-107) 09/25/17 06:00 Carbon Dioxide 24 mmol/L (21-32) 09/25/17 06:00 Anion Gap 10 (8-16) 09/25/17 06:00 BUN 13 mg/dL (7-18) D 09/25/17 06:00 Creatinine 1.1 mg/dL (0.55-1.02) H D 09/25/17 06:00 Creat Clearance w eGFR 53.47 (>60) 09/25/17 06:00 Random Glucose 122 mg/dL (74-106) H D 09/25/17 06:00 Calcium 8.3 mg/dL (8.5-10.1) L 09/25/17 06:00 Phosphorus 1.6 mg/dL (2.5-4.9) L D 09/25/17 06:00 Magnesium 2.5 mg/dL (1.8-2.4) H D 09/25/17 06:00 Total Bilirubin 1.5 mg/dL (0.2-1.0) H D 09/25/17 06:00 AST 82 U/L (15-37) H 09/25/17 06:00 ALT 77 U/L (12-78) 09/25/17 06:00 Alkaline Phosphatase 137 U/L (45-117) H 09/25/17 06:00 Total Protein 7.7 g/dl (6.4-8.2) 09/25/17 06:00 Albumin 3.7 g/dl (3.4-5.0) 09/25/17 06:00 Total Amylase 113 U/L (25-115) 09/23/17 23:00 Lipase 326 U/L (73-393) 09/23/17 23:00 Serum , Qual Negative 09/23/17 23:00 Opiates Screen Positive ng/ml (PHHPAL=951) 09/24/17 12:20 Methadone Screen Positive ng/ml (BSFKHX=918) 09/24/17 12:20 Barbiturate Screen Negative ng/ml (DLBEJD=982) 09/24/17 12:20 Phencyclidine Screen Negative ng/ml (CUTOFF=25) 09/24/17 12:20 Ur Amphetamines Screen Negative ng/ml (SBRIFW=082) 09/24/17 12:20 MDMA (Ecstasy) Screen Negative ng/ml (ZTSDKV=348) 09/24/17 12:20 Benzodiazepines Screen Negative ng/ml (UEPBRR=633) 09/24/17 12:20 Cocaine Screen Negative ng/ml (KRMYVB=729) 09/24/17 12:20 U Marijuana (THC) Screen Positive ng/ml (CUTOFF=50) 09/24/17 12:20 HOSPITAL COURSE: Date of Admission:09/24/17 Date of Discharge: 09/26/17 47 yo female w/ hx of PSA, initially presented with abdominal pain/vomiting in ED on 09/23 after consuming half a gallon of liquor, subsequently developing angioedema after receiving zofran/famotadine requiring benadryl/epinephrine with resolution of symptoms. She was admitted for allergic reaction and alcohol detox. Completed librium taper over weekend with no further allergic symptoms, however became progressively belligerent and non-compliant with staff, requiring sedation. Pt was seen by detox service during admission and was approved for placement at [facility] inpatient rehab for further management of drug/alcohol detox. Discharged today to this facility. Imaging: CXR 09/24 - No acute pathology or interval change since prior CXR in 12/2016. Cultures: Microbiology 09/23/17 23:00 Blood - Peripheral Venous Blood Culture - Preliminary NO GROWTH OBTAINED AFTER 48 HOURS, INCUBATION TO CONTINUE FOR 3 DAYS. 09/23/17 23:00 Blood - Peripheral Venous Blood Culture - Preliminary NO GROWTH OBTAINED AFTER 48 HOURS, INCUBATION TO CONTINUE FOR 3 DAYS. Consults: Detox service - Seen by Dr. Amadou Littlejohn. Approved for inpatient rehab at [facility]. Patient's acute delirium/agitation most consistent with sequela of polysubstance abuse/withdrawal. Pt combative, refusing treatment. Admitted to [facility] rehab center. Transfer to this facility for further management of drug/alcohol abuse rehab/detox. Pt stable, cleared for discharge and transfer. Minutes to complete discharge: 25 Discharge Summary Reason For Visit: ALCOHOL DEPENDENCE WITH UNCOMPLICATED WITHDRAWAL Condition: Improved - Instructions Diet, Activity, Other Instructions: You were treated for an acute allergic reaction and alcohol withdrawal. You are being transferred to [facility] to continue your alcohol detox, we recommend you continue with you rehabilitation at discharge. You may have reacted to zofran or famotadine which you were given prior to your reaction. We recommend you avoid these medications in the future. Please follow-up with your primary care physician upon discharge from [facility] for post-hospital evaluation. Resume your home medications as prescribed. If you develop chest pain, swelling of your tongue, trouble breathing, fevers, or any symptoms please return to the hospital. Disposition: TRANSFER ACUTE CARE/OTHER HOSP - Home Medications Comprehensive Discharge Medication List: Ambulatory Orders Methadone [Dolophine -] 80 mg PO ACBK 09/13/16 Diphenhydramine HCl [Benadryl Capsule -] 25 mg PO BID PRN 07/18/17 Hypromellose 0.5% Opth Soln [Artificial Tears] 1 drop AU DAILY 07/18/17 Multivitamin [One Daily] 1 tab PO DAILY 07/18/17 Divalproex [Depakote -] 250 mg PO TID #90 tab.ec 07/19/17 Docusate Sodium [Colace -] 100 mg PO DAILY PRN #30 cap 07/19/17 Fluticasone Prop 0.05% Nasal [Flonase -] 1 spray NS DAILY #1 bottle 07/19/17 Folic Acid 1 mg PO DAILY #30 tablet 07/19/17 Gabapentin 100 mg PO TID #90 capsule 07/19/17 Quetiapine Fumarate [Seroquel] 300 mg PO BID #60 tablet 07/19/17 Thiamine HCl [Vitamin B1 -] 1 tab PO DAILY #30 tablet 07/19/17 Chlordiazepoxide [Librium -] 15 mg PO [id number] capsule MDD 4 09/26/17 Chlordiazepoxide [Librium -] 25 mg PO Q4H PRN capsule MDD 6 09/26/17 Chlordiazepoxide [Librium -] 25 mg PO [id number] capsule MDD 4 09/26/17 Chlordiazepoxide [Librium -] 50 mg PO [id number] capsule MDD 4 09/26/17 Methadone [Dolophine -] 80 mg PO DAILY@0600 tablet MDD 1 09/26/17 Pantoprazole Sodium [Protonix -] 40 mg PO DAILY #30 tablet.ec 09/26/17 Simethicone [Mylicon -] 80 mg PO Q4H PRN tab.chew 09/26/17 This patient is new to me today: Yes Date on this admission: 09/26/17 Emergency Visit: Yes ED Registration Date: 09/24/17 Care time: The patient presented to the Emergency Department on the above date and was hospitalized for further evaluation of their emergent condition. Critical Care patient: No - Discharge Referral Referred to [facility] No
--- NOTE | 2017-09-26 23:04 | EKG ---
Test Reason : Blood Pressure : / mmHG Vent. Rate : 156 BPM Atrial Rate : 156 BPM P-R Int : 118 ms QRS Dur : 080 ms QT Int : 316 ms P-R-T Axes : 068 062 072 degrees QTc Int : 509 ms SINUS TACHYCARDIA MINIMAL VOLTAGE CRITERIA FOR LVH, MAY BE NORMAL VARIANT SEPTAL INFARCT , AGE UNDETERMINED ABNORMAL ECG WHEN COMPARED WITH ECG OF 16-JUL-2017 16:26, VENT. RATE HAS INCREASED BY 79 BPM Confirmed by VIVIAN SWANSON MD ([id number]) on 09/26/2017 11:03:55 PM Referred By: Confirmed By:VIVIAN SWANSON MD
== END 2017-09-26 13:50 | disposition short-term general hospital (02) | DRG 772 ==
LOC: JER 21:41 → INTOOBSV 09-24 02:03 → UNDOADMOB 09-24 02:03 → JERBED 09-24 02:03 → OBSVTOIN 09-24 02:13 → J8W 09-24 02:13 → JERBED 09-24 03:40 → UNDOADMOB 09-24 05:17 → JERBED 09-24 05:17 → J8W 09-24 05:17
PROVIDERS: ADMIT Internal Medicine; ATTEND Internal Medicine
PROC: HZ2ZZZZ Detoxification Services for Substance Abuse Treatment (ICD-10-PCS; principal; 2017-09-24)
PROC: HZ91ZZZ Pharmacotherapy for Substance Abuse Treatment, Methadone Maintenance (ICD-10-PCS; 2017-09-24)
DX: F10.230 Alcohol dependence with withdrawal, uncomplicated (principal); F31.9 Bipolar disorder, unspecified; T78.3XXA Angioneurotic edema, initial encounter; T78.40XA Allergy, unspecified, initial encounter; T45.0X5A Adverse effect of antiallergic and antiemetic drugs, initial encounter; T47.0X5A Adverse effect of histamine H2-receptor blockers, initial encounter; F11.20 Opioid dependence, uncomplicated; F12.10 Cannabis abuse, uncomplicated; F17.210 Nicotine dependence, cigarettes, uncomplicated; B18.2 Chronic viral hepatitis C; K29.20 Alcoholic gastritis without bleeding; K21.9 Gastro-esophageal reflux disease without esophagitis; D64.9 Anemia, unspecified; R00.0 Tachycardia, unspecified; E80.6 Other disorders of bilirubin metabolism; R74.0 Nonspecific elevation of levels of transaminase and lactic acid dehydrogenase [LDH]
CPT/HCPCS: 36415; 71020-TC; 80053; 80307; 82150; 83690; 83735; 84100; 84703; 85025; 87040; 93005; 93010; 99284-25

== ENCOUNTER 2017-11-02 09:27 | Inpatient (IN) | payer MEDICARE, OTHER ==
[2017-11-02] MEDS ORDERED: SODIUM CHLORIDE 1,000 ML IV STA (09:43)
--- NOTE | 2017-11-02 09:57 | PDOC ---
History of Present Illness - General History Source: Patient Exam Limitations: No Limitations - History of Present Illness Initial Comments: 11/02/17 10:30 The patient is a 47 year old female with a significant PMH of HTN, alcoholism, polysubstance abuse, and hepatitis C who presents to the emergency department via EMS with abdominal pain and vomiting beginning approximately yesterday s/p alcohol abuse. She notes some mucus in her vomit. She also notes intermittent diarrhea since yesterday. The patient reports drinking a lot of alcohol yesterday, after which her symptoms began. She reports taking Methadone this morning to relieve her vomiting to no relief. As per previous notes, the patient had a similar episode of vomiting s/p intoxication on 09/24/17. During her previous visit, the patient had an adverse angioedema reaction to either Zofran or Pepcid (unclear) and had to be admitted for a short time. The patient denies chest pain, shortness of breath, headache and dizziness. Denies fever, chills, hematochezia, and constipation. Denies dysuria, frequency, urgency and hematuria. Allergies: Prochlorperazine maleate, Metoclopramide HCl, Prochlorperazine edisylate. Past surgical history: None reported. Social history: Polysubstance abuse. Alcohol abuse. PCP: None reported. <Naveed Garcia - Last Filed: 11/02/17 10:30> - General History Source: Patient Exam Limitations: No Limitations <Wendy Hummel - Last Filed: 11/03/17 14:25> - General Stated Complaint: VOMITING Time Seen by Provider: 11/02/17 09:43 Past History <Naveed Garcia - Last Filed: 11/02/17 10:30> - Past Medical History Anemia: Yes (H/O) Asthma: No Cancer: No Cardiac Disorders: No CVA: No COPD: No CHF: No Dementia: No Diabetes: No GI Disorders: No Disorders: No HTN: No Hypercholesterolemia: No Kidney Stones: No Liver Disease: Yes (HEP C) Psychiatric Problems: Yes (BIPOLAR) Seizures: No Thyroid Disease: No - Surgical History Abdominal Surgery: No Appendectomy: No Cardiac Surgery: No Cholecystectomy: No Lung Surgery: No Neurologic Surgery: No Orthopedic Surgery: No - Reproductive History (#): 13 Para: 11 PID: No - Immunization History Immunization Up to Date: No - Suicide/Smoking/Psychosocial Hx Smoking History: Unknown if ever smoked Have you smoked in the past 12 months: No Number of Cigarettes Smoked Daily: 10 Cigars Per Day: 3 'Breaking Loose' booklet given: 12/29/15 Hx Alcohol Use: No Drug/Substance Use Hx: No Substance Use Type: Alcohol, Heroin, Opiates Hx Substance Use Treatment: Yes <Wendy Hummel - Last Filed: 11/03/17 14:25> - Past Medical History Allergies/Adverse Reactions: Allergies Allergy/AdvReac Type Severity Reaction Status Date / Time prochlorperazine maleate Allergy Severe DYSTONIA Verified 11/02/17 10:11 [From Compazine] metoclopramide HCl Allergy Verified 11/02/17 10:11 [From Reglan] prochlorperazine edisylate Allergy Verified 11/02/17 10:11 [From Compazine] Home Medications: Ambulatory Orders Methadone [Dolophine -] 80 mg PO ACBK 09/13/16 Diphenhydramine HCl [Benadryl Capsule -] 25 mg PO BID PRN 07/18/17 Hypromellose 0.5% Opth Soln [Artificial Tears] 1 drop AU DAILY 07/18/17 Multivitamin [One Daily] 1 tab PO DAILY 07/18/17 Divalproex [Depakote -] 250 mg PO TID #90 tab.ec 07/19/17 Docusate Sodium [Colace -] 100 mg PO DAILY PRN #30 cap 07/19/17 Fluticasone Prop 0.05% Nasal [Flonase -] 1 spray NS DAILY #1 bottle 07/19/17 Folic Acid 1 mg PO DAILY #30 tablet 07/19/17 Gabapentin 100 mg PO TID #90 capsule 07/19/17 Quetiapine Fumarate [Seroquel] 300 mg PO BID #60 tablet 07/19/17 Thiamine HCl [Vitamin B1 -] 1 tab PO DAILY #30 tablet 07/19/17 Chlordiazepoxide [Librium -] 15 mg PO [id number] capsule MDD 4 09/26/17 Chlordiazepoxide [Librium -] 25 mg PO Q4H PRN capsule MDD 6 09/26/17 Chlordiazepoxide [Librium -] 25 mg PO [id number] capsule MDD 4 09/26/17 Chlordiazepoxide [Librium -] 50 mg PO [id number] capsule MDD 4 09/26/17 Methadone [Dolophine -] 80 mg PO DAILY@0600 tablet MDD 1 09/26/17 Pantoprazole Sodium [Protonix -] 40 mg PO DAILY #30 tablet.ec 09/26/17 Simethicone [Mylicon -] 80 mg PO Q4H PRN tab.chew 09/26/17 Review of Systems - Review of Systems Able to Perform ROS?: Yes Comments:: 11/02/17 10:30 GENERAL/CONSTITUTIONAL: No fever or chills. No weakness. HEAD, EYES, EARS, NOSE AND THROAT: No change in vision. No ear pain or discharge. No sore throat. CARDIOVASCULAR: No chest pain or shortness of breath. RESPIRATORY: No cough, wheezing, or hemoptysis. GASTROINTESTINAL: (+) Vomiting, slight mucous. (+) Abdominal pain. (+) Diarrhea. No constipation. GENITOURINARY: No dysuria, frequency, or change in urination. MUSCULOSKELETAL: No joint or muscle swelling or pain. No neck or back pain. SKIN: No rash NEUROLOGIC: No headache, vertigo, loss of consciousness, or change in strength/ sensation. ENDOCRINE: No increased thirst. No abnormal weight change. HEMATOLOGIC/LYMPHATIC: No anemia, easy bleeding, or history of blood clots. ALLERGIC/IMMUNOLOGIC: No hives or skin allergy. <Naveed Garcia - Last Filed: 11/02/17 10:30> *Physical Exam - Vital Signs Last Vital Signs Temp Pulse Resp BP Pulse Ox 99.4 F 62 16 178/113 100 11/02/17 09:55 11/02/17 09:55 11/02/17 09:55 11/02/17 09:55 11/02/17 09:55 - Physical Exam Comments: 11/02/17 10:30 GENERAL: The patient is in no acute distress. HEAD: Normal with no signs of trauma. EYES: PERRLA, EOMI, sclera anicteric, conjunctiva clear. ENT: Ears normal, nares patent, oropharynx clear without exudates. Moist mucous membranes. NECK: Normal range of motion, supple without lymphadenopathy, JVD, or masses. LUNGS: Breath sounds equal, clear to auscultation bilaterally. No wheezes, and no crackles. HEART:Regular rate and rhythm, normal S1 and S2 without murmur, rub or gallop. ABDOMEN: (+) Diffusely tender, more in the epigastric region.Soft, normoactive bowel sounds. No guarding, no rebound. No masses palpable. EXTREMITIES: Normal range of motion, no edema. No clubbing or cyanosis. No erythema, or tenderness. NEUROLOGICAL: Cranial nerves II through XII grossly intact. Normal speech. No focal neurological deficits. MUSCULOSKELETAL: Back non-tender to palpation, no CVA tenderness SKIN: Warm, Dry, normal turgor, no rashes or lesions noted. <Naveed Garcia - Last Filed: 11/02/17 10:30> ED Treatment Course - LABORATORY CBC & Chemistry Diagram: 11/03/17 08:30 11/03/17 08:30 <Wendy Hummel - Last Filed: 11/03/17 14:25> Medical Decision Making - Medical Decision Making 11/02/17 10:15 This is a 47 yo F with a history of poly substance abuse Pt presents to the ER via EMS s/p vomiting Pt states she had a lot of alcohol yesterday Since last night she has noted vomiting NO fevers (+) diarrhea She is unable to tell me how many times she vomited She reports diffuse abdominal pain On examination: RRR CTA Hypoactive bowel sounds Tender to palpation through out the abdomen No involuntary guarding No rebound DD: Alcoholic gastritis, pancreatitis, gastroenteritis Will do : Labs Hydrate Pain management Pt is allergic to reglan, compazine and her last admission was due to allergic reaction to Zofran/Protonix Will not be able to give an anti emetic Will re assess EK: SR rate of 61 bpm, axis nml, intervals nml, no st elevations or depressions, t waves nml 11/02/17 15:20 Laboratory Tests 09/25/17 09/25/17 11/02/17 06:00 06:00 12:20 WBC 6.6 6.8 Hgb 14.0 14.6 Hct 41.7 45.7 H Plt Count 106 L D Sodium Potassium Chloride Carbon Dioxide Anion Gap e Random Glucose Total Bilirubin 1.5 H D Alkaline Phosphatase 137 H Creatine Kinase CK-MB (CK-2) Troponin I Total Protein 11/02/17 12:20 WBC Hgb Hct Plt Count Sodium 135 L Potassium 3.7 Chloride 103 Carbon Dioxide 21 Anion Gap 11 Creatinine 0.7 D Random Glucose 154 H D Total Bilirubin 1.3 H Alkaline Phosphatase 139 H Creatine Kinase 309 H CK-MB (CK-2) 3.209 Troponin I 0.03 Total Protein 8.8 H 11/02/17 15:20 Patient states she has persistent vomiting, continued abdominal pain Will place on observation Per charting, patient was admitted the last time this happened due to angioedema after getting zofran/and ?pepcid Per nurse that previously had her, the patient got zofran and her "eyes rolled back" she did not have angioedema Unclear to me patient's response Zofran will not be given by me Clinical impression: alcohol abuse, initial presentation intractable vomiting, initial presentation <Wendy Hummel - Last Filed: 11/03/17 14:25> *DC/Admit/Observation/Transfer - Attestations Scribe Attestion: 11/02/17 10:31 Documentation prepared by Naveed Garcia, acting as medical equipment repairer for Wendy Hummel MD. <Naveed Garcia - Last Filed: 11/02/17 10:30> - Discharge Dispostion Admit: Yes <Wendy Hummel - Last Filed: 11/03/17 14:25> Diagnosis at time of Disposition: Nausea and vomiting Qualifiers: Vomiting type: unspecified Vomiting Intractability: intractable Qualified Code( s): R11.2 - Nausea with vomiting, unspecified - Discharge Dispostion Condition at time of disposition: Stable
[2017-11-02] MEDS ORDERED: morphine CARPU-JECT 4 MG/1 ML DISP.SYRIN IVPUSH ONE ×2 (10:00→12:05)
[2017-11-02] MEDS ORDERED: morphine CARPU-JECT 10 MG/1 ML DISP.SYRIN ONE ×2 (10:22→15:42)
[2017-11-02] MEDS ORDERED: ONDANSETRON 4 MG/2 ML VIAL IVPUSH ONE (12:05)
[2017-11-02 12:35] LABS: BASO % 0.3 % (0-2.0); EOS % 0.1 % (0-4.5); HEMATOCRIT 45.7 % (32.4-45.2); HEMOGLOBIN 14.6 GM/dL (10.7-15.3); LYMPH % 12.1 % (8-40); MCH 32.8 pg (25.7-33.7); MEAN CELL VOLUME 102.7 fl (80-96); MEAN PLT VOLUME 10.8 fl (7.5-11.1); NEUT % 83.5 % (42.8-82.8); RBC 4.45 M/mm3 (3.60-5.2); RDW 13.7 % (11.6-15.6); WHITE BLOOD COUNT 6.8 K/mm3 (4.0-10.0)
[2017-11-02 12:53] LABS: ALBUMIN 4.4 g/dl (3.4-5.0); AMYLASE 97 U/L (25-115); ANION GAP 11 (8-16); BILIRUBIN,TOTAL 1.3 mg/dL (0.2-1.0); BLOOD UREA NITROGEN 6 mg/dL (7-18); CALCIUM 8.5 mg/dL (8.5-10.1); CHLORIDE 103 mmol/L (98-107); CO2 21 mmol/L (21-32); CREATININE 0.7 mg/dL (0.55-1.02); GLUCOSE,RANDOM 154 mg/dL (74-106); POTASSIUM 3.7 mmol/L (3.5-5.1); SGOT/AST 52 U/L (15-37); SGPT/ALT 41 U/L (12-78); SODIUM 135 mmol/L (136-145); TOT PROT 8.8 g/dl (6.4-8.2)
[2017-11-02 12:54] LABS: LIPASE 265 U/L (73-393)
[2017-11-02 12:56] LABS: ALK PHOS 139 U/L (45-117)
--- NOTE | 2017-11-02 13:13 | EKG ---
Test Reason : Blood Pressure : / mmHG Vent. Rate : 061 BPM Atrial Rate : 061 BPM P-R Int : 146 ms QRS Dur : 090 ms QT Int : 450 ms P-R-T Axes : 060 044 046 degrees QTc Int : 453 ms NORMAL SINUS RHYTHM NORMAL ECG WHEN COMPARED WITH ECG OF 24-SEP-2017 00:56, VENT. RATE HAS DECREASED BY 95 BPM NONSPECIFIC T WAVE ABNORMALITY NO LONGER EVIDENT IN INFERIOR LEADS Confirmed by ROSA SÁNCHEZ, VANCE ([id number]) on 11/02/2017 1:12:29 PM Referred By: Confirmed By:VANCE LEE MD
[2017-11-02 14:46] LABS: PLATELET COUNT 39 K/MM3 (134-434)
[2017-11-02 14:47] LABS: PLATELET ESTIMATE DECREASED
[2017-11-02] MEDS ORDERED: ACETAMINOPHEN 325 MG TABLET (FP) PO PRN (16:00)
[2017-11-02] MEDS ORDERED: chlordiazePOXIDE HCL 25 MG CAPSULE PO PRN (16:07)
--- NOTE | 2017-11-02 16:12 | HP ---
HISTORY OF PRESENT ILLNESS: Patient is a 47 year old female with a PMHx of Polysubstance abuse (ETOH and Marijuana) on Methadone, bipolar disorder/depression, who presents today for nonradiating, sharp, abdominal pain in the epigastric region associated with bilious vomiting that started around 0200 today after heavy drinking last night and the night before. Patient states she had several episodes of vomiting and is unable to count how many episodes. She is unable to provide an exact amount of how much alcohol she drank in the last couple of days but states "it was a lot." Patient reports she has been drinking over half a gallon of vodka in the past year and rarely eats. Patient states she took her methadone this morning but vomited right after. Patient reports being admitted for similar symptoms recently and also reports having a history of pancreatitis from her alcohol abuse. Patient states she would like to go for inpatient rehab/detox. Otherwise, patient denies any fever, chills, chest pain, palpitations, shortness of breath, headache, acute vision changes, hematechezia, melena, dysuria, frequency. Patient on previous visit had similar episode and was given Famotidine and Zofran with acute angioedema and tongue swelling. Patient was given Benadrl and epinephrine which resolved her symptoms PMHx: Hepatitis C, Bipolar Disorder, ETOH/Marijuana/Heroin abuse, Anemia PSHx: x2, Tubal Ligation Meds: Methadone 80mg, Seroquel Allergies: Prochlorperazine maleate, Metoclopramide HCl, Prochlorperazine edisylate, Famotidine, Zofran Social: ETOH and Marijuana everyday. Smokes 3 cigarettes a day. PHYSICAL EXAMINATION Vital Signs - 24 hr 11/02/17 11/02/17 09:55 10:59 Temperature 99.4 F Pulse Rate 62 Pulse Rate [ 65 Right Radial] Respiratory 16 18 Rate Blood Pressure 178/113 Blood Pressure 165/112 [Left Arm] O2 Sat by Pulse 100 98 Oximetry (%) GENERAL: Awake, alert, and fully oriented, in no acute distress. EYES: Pupils equal, round and reactive to light, extraocular movements intact, sclera anicteric, conjunctiva clear. No lid lag. EARS, NOSE, THROAT: Oropharynx clear without exudates. Dry mucous membranes. LUNGS: Breath sounds equal, clear to auscultation bilaterally. No wheezes, and no crackles. No accessory muscle use. HEART: Regular rate and rhythm, normal S1 and S2 without murmur, rub or gallop. ABDOMEN: Diffuse tenderness upon palpation more prominent in the epigastric region. LOWER EXTREMITIES: 2+ pulses, warm, well-perfused. No calf tenderness. No peripheral edema. NEUROLOGICAL: Cranial nerves II-XII intact. Normal speech. no facial Assymetry. Motor strength 5/5 bilaterally with sensory intact. Laboratory Results - last 24 hr 11/02/17 11/02/17 11/02/17 10:52 10:52 10:52 WBC Cancelled Corrected WBC (auto) Cancelled RBC Cancelled Hgb Cancelled Hct Cancelled MCV Cancelled MCH Cancelled MCHC Cancelled RDW Cancelled Plt Count Cancelled MPV Cancelled Neutrophils % Cancelled Lymphocytes % Cancelled Monocytes % Cancelled Eosinophils % Cancelled Basophils % Cancelled Nucleated RBC % Cancelled Platelet Estimate Cancelled Platelet Comment Cancelled Sodium Cancelled Potassium Cancelled Chloride Cancelled Carbon Dioxide Cancelled Anion Gap Cancelled BUN Cancelled Creatinine Cancelled Creat Clearance w eGFR Cancelled Random Glucose Cancelled Calcium Cancelled Total Bilirubin Cancelled AST Cancelled ALT Cancelled Alkaline Phosphatase Cancelled Creatine Kinase Creatine Kinase Index CK-MB (CK-2) Troponin I Total Protein Cancelled Albumin Cancelled Total Amylase Lipase Cancelled Serum , Qual Alcohol, Quantitative Cancelled 11/02/17 11/02/17 11/02/17 12:20 12:20 12:20 WBC 6.8 Corrected WBC (auto) RBC 4.45 Hgb 14.6 Hct 45.7 H MCV 102.7 H MCH 32.8 MCHC 32.0 RDW 13.7 Plt Count 39 L D MPV 10.8 Neutrophils % 83.5 H D Lymphocytes % 12.1 D Monocytes % 4.0 Eosinophils % 0.1 Basophils % 0.3 Nucleated RBC % Platelet Estimate Decreased Platelet Comment No clumping noted Sodium 135 L Potassium 3.7 Chloride 103 Carbon Dioxide 21 Anion Gap 11 BUN 6 L D Creatinine 0.7 D Creat Clearance w eGFR > 60 Random Glucose 154 H D Calcium 8.5 Total Bilirubin 1.3 H AST 52 H D ALT 41 D Alkaline Phosphatase 139 H Creatine Kinase 309 H Creatine Kinase Index 1.0 CK-MB (CK-2) 3.209 Troponin I 0.03 Total Protein 8.8 H Albumin 4.4 Total Amylase 97 Lipase 265 Serum , Qual Negative Alcohol, Quantitative Abdominal U/S (11/02/17):The gallbladder is normal in size and free of calculi with no evidence of intrahepatic biliary duct dilatation. The extrahepatic biliary tree is slightly dilated with the CBD measuring 7 mm. No obvious obstruction is suggested. The liver is normal in size. It is hyperechoic in texture consistent with diffuse fatty infiltration. No discrete intrahepatic masses are identified. Hepatopedal flow is documented within the main portal vein. The pancreas is normal in size and texture with no pancreatic masses identified. There is no evidence of hydronephrosis or acute abnormalities of the right kidney. There is no evidence of AAA. The IVC is patent. IMPRESSION: Mild diffuse fatty infiltration of the liver. Please see above discussion. ASSESSMENT/PLAN: Patient is a 47 year old female who presents for abdominal pain and intractable vomiting. Patient was found to be in alcohol withdraw and admitted for further monitoring and management. Abdominal Pain with Intractable Vomiting -Possibly from alcohol withdrawals. Last drink yesterday night. -U/S revealed mild diffuse fatty infiltrate of the livery with extrahepatic biliary tree dilation with the CBD which is unchanged from previous imaging last month -Lipase wnl -Patient admits to having over a gallon vodka last night and reports the abdominal pain and vomiting started soon afterwards -Patient admits to marijuana daily and might be the cause of her cyclic vomiting -Continue IV fluids with NS @100mls/hr -Tylenol for pain or fever -No Antiemetics as patient has severe anaphylaxis Alcohol Withdrawals -CIWA Score: 11 -Librium protocol ordered -Ativan PRN with 2mg IVP given in ED -Banana Bag ordered -Thiamine 200mg IV daily and Folic acid 1mg daily -Neuro checks Q2H for CIWA -Detox consult placed. Patient is interested in starting inpatient rehab/detox Polysubstance Abuse -Continue Methadone 80mg daily Bipolar Disorder -Continue Seroquel 300mg daily -Continue Depakote 250mg TID Full H&P to follow by product marketing intern note Case discussed with attending, Dr. Sloan, and Continuity Coordinator, Dr. Schwarz. Loida Lange- PGY2 Visit type - Emergency Visit Emergency Visit: Yes ED Registration Date: 11/02/17 Care time: The patient presented to the Emergency Department on the above date and was hospitalized for further evaluation of their emergent condition. - New Patient This patient is new to me today: Yes Date on this admission: 11/02/17 - Critical Care Critical Care patient: No
--- NOTE | 2017-11-02 16:16 | HP ---
CHIEF COMPLAINT: nausea, vomiting PCP: HISTORY OF PRESENT ILLNESS: 47yo woman with PMH of HTN, polysubstance abuse, and hepatitis C who p/w acute onset abdominal pain, bilious vomiting, and intermittent non-bloody diarrhea since last night. Her symptoms began yesterday after drinking a reported gallon of vodka along with smoking marijuana. She had a recent admission in August with similar symptoms after EtOH intoxication and completed a Librium detox during that stay. Denies hematemesis, hematachezia, fever, chills. No chest pain PAST MEDICAL HISTORY: HTN, PSA, Hep C PAST SURGICAL HISTORY: Social History: Smoking: current every day smoker Alcohol: chronic, 1 gallon vodka yesterday Drugs: marijuana Family History: Allergies prochlorperazine maleate [From Compazine] Allergy (Severe, Verified 11/02/17 10: 11) DYSTONIA metoclopramide HCl [From Reglan] Allergy (Verified 11/02/17 10:11) prochlorperazine edisylate [From Compazine] Allergy (Verified 11/02/17 10:11) HOME MEDICATIONS: Home Medications Medication Instructions Recorded Methadone [Dolophine -] 80 mg PO ACBK 09/13/16 Diphenhydramine HCl [Benadryl 25 mg PO BID PRN 07/18/17 Capsule -] Hypromellose 0.5% Opth Soln 1 drop AU DAILY 07/18/17 [Artificial Tears] Multivitamin [One Daily] 1 tab PO DAILY 07/18/17 Divalproex [Depakote -] 250 mg PO TID #90 tab.ec 07/19/17 Docusate Sodium [Colace -] 100 mg PO DAILY PRN #30 cap 07/19/17 Fluticasone Prop 0.05% Nasal 1 spray NS DAILY #1 bottle 07/19/17 [Flonase -] Folic Acid 1 mg PO DAILY #30 tablet 07/19/17 Gabapentin 100 mg PO TID #90 capsule 07/19/17 Quetiapine Fumarate [Seroquel] 300 mg PO BID #60 tablet 07/19/17 Thiamine HCl [Vitamin B1 -] 1 tab PO DAILY #30 tablet 07/19/17 Chlordiazepoxide [Librium -] 15 mg PO [id number] capsule MDD 4 09/26/17 Chlordiazepoxide [Librium -] 25 mg PO Q4H PRN capsule MDD 6 09/26/17 Chlordiazepoxide [Librium -] 25 mg PO [id number] capsule MDD 4 09/26/17 Chlordiazepoxide [Librium -] 50 mg PO [id number] capsule MDD 4 09/26/17 Methadone [Dolophine -] 80 mg PO DAILY@0600 tablet MDD 1 09/26/17 Pantoprazole Sodium [Protonix -] 40 mg PO DAILY #30 tablet.ec 09/26/17 Simethicone [Mylicon -] 80 mg PO Q4H PRN tab.chew 09/26/17 REVIEW OF SYSTEMS CONSTITUTIONAL: Absent: fever, chills, diaphoresis, generalized weakness, malaise, loss of appetite, weight change HEENT: Absent: rhinorrhea, nasal congestion, throat pain, throat swelling, difficulty swallowing, mouth swelling, ear pain, eye pain, visual changes CARDIOVASCULAR: Absent: chest pain, syncope, palpitations, irregular heart rate, lightheadedness , peripheral edema RESPIRATORY: Absent: cough, shortness of breath, dyspnea with exertion, orthopnea, wheezing, stridor, hemoptysis GASTROINTESTINAL: +abdominal pain, nausea, vomiting Absent: abdominal distension, diarrhea, constipation, melena, hematochezia GENITOURINARY: Absent: dysuria, frequency, urgency, hesitancy, hematuria, flank pain, genital pain MUSCULOSKELETAL: Absent: myalgia, arthralgia, joint swelling, back pain, neck pain SKIN: Absent: rash, itching, pallor HEMATOLOGIC/IMMUNOLOGIC: Absent: easy bleeding, easy bruising, lymphadenopathy, frequent infections ENDOCRINE: Absent: unexplained weight gain, unexplained weight loss, heat intolerance, cold intolerance NEUROLOGIC: Absent: headache, focal weakness or paresthesias, dizziness, unsteady gait, seizure, mental status changes, bladder or bowel incontinence PSYCHIATRIC: Absent: anxiety, depression, suicidal or homicidal ideation, hallucinations. PHYSICAL EXAMINATION Vital Signs - 24 hr 11/02/17 11/02/17 09:55 10:59 Temperature 99.4 F Pulse Rate 62 Pulse Rate [ 65 Right Radial] Respiratory 16 18 Rate Blood Pressure 178/113 Blood Pressure 165/112 [Left Arm] O2 Sat by Pulse 100 98 Oximetry (%) GENERAL: thin, middle age woman, aaox3 EYES: PERRLA, sclera anicteric, conjunctiva clear ENT: oropharynx clear without exudates LUNGS: CTAB HEART: rrr, normal s1/s2, no m/r/g ABDOMEN: Soft, non-distended, mild ttp epigastrum, hypoactive bowel sounds UPPER EXTREMITIES: 2+ radial pulses, wwp, no edema LOWER EXTREMITIES: 2+ DP pulses, wwp, no calf tenderness, no edema NEUROLOGICAL: Cranial nerves II-XII intact. Normal speech. motor strength 5/5 in all 4 extremities, no asterixis CBC, BMP 11/02/17 12:20 11/02/17 12:20 Hepatic Panel Total Bilirubin 1.3 mg/dL (0.2-1.0) H 11/02/17 12:20 AST 52 U/L (15-37) H D 11/02/17 12:20 ALT 41 U/L (12-78) D 11/02/17 12:20 Alkaline Phosphatase 139 U/L (45-117) H 11/02/17 12:20 Albumin 4.4 g/dl (3.4-5.0) 11/02/17 12:20 EKG: NSR rate of 61 bpm, axis nml, intervals nml, no st elevations or depressions, t waves nml IMAGING: HISTORY PROVIDED: Abdominal pain. Real time examination of the abdomen demonstrates the following: The gallbladder is normal in size and free of calculi with no evidence of intrahepatic biliary duct dilatation. The extrahepatic biliary tree is slightly dilated with the CBD measuring 7 mm. No obvious obstruction is suggested. The liver is normal in size. It is hyperechoic in texture consistent with diffuse fatty infiltration. No discrete intrahepatic masses are identified. Hepatopedal flow is documented within the main portal vein. The pancreas is normal in size and texture with no pancreatic masses identified. There is no evidence of hydronephrosis or acute abnormalities of the right kidney. There is no evidence of AAA. The IVC is patent. IMPRESSION: Mild diffuse fatty infiltration of the liver. Please see above discussion. ASSESSMENT/PLAN: 47yo woman with PMH of PSA on Methadone (80mg daily), recently completed etoh detox 1 month ago who presents with acute onset abdominal pain, nausea, and bilious emesis after EtOH intoxication. #abdominal pain, N/V - lipase wnl, U/S mildly dilated CBD to 7mm unchanged from prior MRCP Jul 2017 -IVFs, NPO, anti-emetics #EtOH detox -Dr. Littlejohn detoxed -Librium detox started -CIWA Q4H -1x banana bag, then NS@100cc/hr #PSA -continue daily Methadone (80mg daily) #FEN: NS@100 / lytes wnl / NPO #DVT PPX - Heparin TID d/w Dr. Nathalia Schwarz MD PGY1 - Internal Medicine Visit type - Emergency Visit Emergency Visit: Yes ED Registration Date: 11/02/17 Care time: The patient presented to the Emergency Department on the above date and was hospitalized for further evaluation of their emergent condition. - New Patient This patient is new to me today: Yes Date on this admission: 11/03/17 - Critical Care Critical Care patient: No
[2017-11-02] MEDS ORDERED: LORazepam 2 MG/ML SDV VIAL ONE (16:26)
[2017-11-02] MEDS ORDERED: chlordiazePOXIDE HCL 25 MG CAPSULE PO ONE (16:30)
[2017-11-02] MEDS: SODIUM CHLORIDE 1,000 ML IV SCH (16:45)
[2017-11-02] MEDS ORDERED: FOLIC ACID INJECTION - 1 MG, THIAMINE HCL 100 MG, MULTIVIT INJECTION ADULT 10 ML in SOD... IVPB ONE (17:00)
[2017-11-02] MEDS ORDERED: chlordiazePOXIDE HCL 25 MG CAPSULE ONE (17:09)
[2017-11-02] MEDS ORDERED: diphenhydrAMINE HCL 25 MG CAPSULE (FP) PO ONE (17:45)
[2017-11-02] MEDS: chlordiazePOXIDE HCL 25 MG CAPSULE PO SCH ×2 (18:04→23:10)
[2017-11-02 18:05] VITALS: BMI 27.0
--- NOTE | 2017-11-02 19:00 | PN ---
Teaching Attending Note Name of Resident: Nelda Schwarz ATTENDING PHYSICIAN STATEMENT I saw and evaluated the patient. I reviewed the resident's note and discussed the case with the resident. I agree with the resident's findings and plan as documented. SUBJECTIVE: Patient is a 47yo woman with PMHx of HTN, polysubstance abuse, and hepatitis C who presented to ED. c/o having acute onset abdominal pain, bilious vomiting, with intermittent non-bloody diarrhea. Patient stated that her symptoms started after drinking a gallon of vodka along with smoking marijuana. Stated that since was a New year she could not resist drinking. Stated that she will quit smoking marijuana and drinking alcohol. OBJECTIVE: Vital Signs Temperature 98.2 F 11/02/17 18:19 Pulse Rate 88 11/02/17 18:19 Respiratory Rate 18 11/02/17 18:19 Blood Pressure 156/100 11/02/17 18:19 O2 Sat by Pulse Oximetry (%) 98 11/02/17 18:20 CBCD WBC 6.8 K/mm3 (4.0-10.0) 11/02/17 12:20 RBC 4.45 M/mm3 (3.60-5.2) 11/02/17 12:20 Hgb 14.6 GM/dL (10.7-15.3) 11/02/17 12:20 Hct 45.7 % (32.4-45.2) H 11/02/17 12:20 MCV 102.7 fl (80-96) H 11/02/17 12:20 MCHC 32.0 g/dl (32.0-36.0) 11/02/17 12:20 RDW 13.7 % (11.6-15.6) 11/02/17 12:20 Plt Count 39 K/MM3 (134-434) L D 11/02/17 12:20 MPV 10.8 fl (7.5-11.1) 11/02/17 12:20 CMP Sodium 135 mmol/L (136-145) L 11/02/17 12:20 Potassium 3.7 mmol/L (3.5-5.1) 11/02/17 12:20 Chloride 103 mmol/L (98-107) 11/02/17 12:20 Carbon Dioxide 21 mmol/L (21-32) 01/03/18 12:20 Anion Gap 11 (8-16) 11/02/17 12:20 BUN 6 mg/dL (7-18) L D 11/02/17 12:20 Creatinine 0.7 mg/dL (0.55-1.02) D 11/02/17 12:20 Creat Clearance w eGFR > 60 (>60) 11/02/17 12:20 Random Glucose 154 mg/dL (74-106) H D 11/02/17 12:20 Calcium 8.5 mg/dL (8.5-10.1) 11/02/17 12:20 Total Bilirubin 1.3 mg/dL (0.2-1.0) H 11/02/17 12:20 AST 52 U/L (15-37) H D 11/02/17 12:20 ALT 41 U/L (12-78) D 11/02/17 12:20 Alkaline Phosphatase 139 U/L (45-117) H 11/02/17 12:20 Total Protein 8.8 g/dl (6.4-8.2) H 11/02/17 12:20 Albumin 4.4 g/dl (3.4-5.0) 11/02/17 12:20 CARDIAC ENZYMES Creatine Kinase 309 IU/L (26-192) H 11/02/17 12:20 Troponin I 0.03 ng/ml (0.00-0.05) 11/02/17 12:20 Current Medications Generic Name Dose Route Start Last Admin Trade Name Freq PRN Reason Stop Dose Admin Acetaminophen 650 mg 11/02/17 16:00 Tylenol - PO Q4H PRN FEVER OR PAIN Artificial Tears 1 drop 11/03/17 10:00 Artificial Tears OU DAILY GONZALEZ Chlordiazepoxide HCl 50 mg 11/02/17 17:00 11/02/17 18:04 Librium - PO 11/03/17 11:01 Not Given [id number] GON[facility]ALEZ Chlordiazepoxide HCl 25 mg 11/03/17 17:00 Librium - PO 11/04/17 11:01 [id number] GONZALEZ Chlordiazepoxide HCl 15 mg 11/04/17 17:00 Librium - PO 11/05/17 11:01 G1U-BST GONZALEZ Chlordiazepoxide HCl 25 mg 11/02/17 16:07 Librium - PO 11/05/17 16:06 Q4H PRN WITHDRAWAL(CONT SUBST) Divalproex Sodium 250 mg 11/02/17 22:00 Depakote - PO TID [facility] Folic Acid 1 mg 11/03/17 10:00 Folic Acid - PO 11/03/17 10:01 DAILY ONE Gabapentin 100 mg 11/02/17 22:00 Neurontin - PO TID [facility] Heparin Sodium (Porcine) 5,000 unit 11/02/17 22:00 Heparin - SQ TID [facility] Sodium Chloride 1,000 mls @ 100 mls/hr 11/02/17 16:00 11/02/17 16:45 Normal Saline - IV 100 mls/hr ASDIR [facility] Administration Folic Acid 1 mg/ Thiamine HCl 1,000 mls @ 125 mls/hr 11/02/17 17:00 11/02/17 18:02 100 mg/ Multivitamins/Minerals IVPB 11/03/17 00:59 125 mls/hr 10 ml/ Sodium Chloride ONCE ONE Administration Methadone HCl 80 mg 11/03/17 06:00 Dolophine - PO DAILY@0600 [facility] Quetiapine Fumarate 300 mg 11/02/17 22:00 Seroquel - PO BID [facility] Thiamine HCl 200 mg 11/03/17 10:00 Vitamin B1 Injection - IVPB DAILY [facility] Home Medications Medication Instructions Recorded Methadone [Dolophine -] 80 mg PO ACBK 09/13/16 Diphenhydramine HCl [Benadryl 25 mg PO BID PRN 07/18/17 Capsule -] Hypromellose 0.5% Opth Soln 1 drop AU DAILY 07/18/17 [Artificial Tears] Multivitamin [One Daily] 1 tab PO DAILY 07/18/17 Divalproex [Depakote -] 250 mg PO TID #90 tab.ec 07/19/17 Docusate Sodium [Colace -] 100 mg PO DAILY PRN #30 cap 07/19/17 Fluticasone Prop 0.05% Nasal 1 spray NS DAILY #1 bottle 07/19/17 [Flonase -] Folic Acid 1 mg PO DAILY #30 tablet 07/19/17 Gabapentin 100 mg PO TID #90 capsule 07/19/17 Quetiapine Fumarate [Seroquel] 300 mg PO BID #60 tablet 07/19/17 Thiamine HCl [Vitamin B1 -] 1 tab PO DAILY #30 tablet 07/19/17 Chlordiazepoxide [Librium -] 15 mg PO [id number] capsule MDD 4 09/26/17 Chlordiazepoxide [Librium -] 25 mg PO Q4H PRN capsule MDD 6 09/26/17 Chlordiazepoxide [Librium -] 25 mg PO [id number] capsule MDD 4 09/26/17 Chlordiazepoxide [Librium -] 50 mg PO [id number] capsule MDD 4 09/26/17 Methadone [Dolophine -] 80 mg PO DAILY@0600 tablet MDD 1 09/26/17 Pantoprazole Sodium [Protonix -] 40 mg PO DAILY #30 tablet.ec 09/26/17 Simethicone [Mylicon -] 80 mg PO Q4H PRN tab.chew 09/26/17 PE: midepigastric pain rest of PE per resident's note EKG: NSR , rate of 61, no ST elevations of depressions. US of abdomen reported: Abdominal pain. Real time examination of the abdomen demonstrates the following: The gallbladder is normal in size and free of calculi with no evidence of intrahepatic biliary duct dilatation. The extrahepatic biliary tree is slightly dilated with the CBD measuring 7 mm. No obvious obstruction is suggested. The liver is normal in size. It is hyperechoic in texture consistent with diffuse fatty infiltration. No discrete intrahepatic masses are identified. Hepatopedal flow is documented within the main portal vein. The pancreas is normal in size and texture with no pancreatic masses identified. There is no evidence of hydronephrosis or acute abnormalities of the right kidney. There is no evidence of AAA. The IVC is patent. IMPRESSION: Mild diffuse fatty infiltration of the liver. Please see above discussion. ASSESSMENT AND PLAN: Patient is a 47yo woman with PMHx of PSA on Methadone (80mg daily), ETOH dependency with recent alcohol detox 1 month ago who presents to the ED. c/o having abdominal pain, nausea, bilious emesis after drinking a gallon of Vodka , and smoking Mariguana. # Alcohol intoxication r/o DTs on Librium detox protocol , on consult. IVF, Folic acid, thiamine. #Acute abdominal pain with N/V - U/S mildly dilated CBD to 7mm unchanged from prior MRCP Jul 2017, IVF, NPO for now. #PSA -continue daily Methadone (80mg daily) #DVT PPX - Heparin TID
[2017-11-02 19:48] LABS: URINE APPEARANCE CLEAR; URINE BILIRUBIN NEGATIVE (NEGATIVE); URINE BLOOD NEGATIVE (NEGATIVE); URINE COLOR COLORLESS; URINE GLUCOSE (UA) NEGATIVE (NEGATIVE); URINE KETONE 1+ (NEGATIVE); URINE LEUK ESTERASE NEGATIVE (NEGATIVE); URINE NITRITE NEGATIVE (NEGATIVE); URINE PROTEIN NEGATIVE (NEGATIVE); URINE UROBILINOGEN NEGATIVE mg/dL (0.2-1.0)
[2017-11-02] MEDS: HEPARIN NA (PORCINE) 5,000 UNITS/ML 1ML VIAL SQ SCH (21:59)
[2017-11-02] MEDS: GABAPENTIN 100 MG CAPSULE (FP) PO SCH (21:59)
[2017-11-02] MEDS: DIVALPROEX SODIUM 250 MG TABLET E.C. (FP) PO SCH (21:59)
[2017-11-02] MEDS: QUEtiapine FUMARATE 300 MG TABLET PO SCH (21:59)
[2017-11-02 22:00] LABS: COCAINE, UR NEGATIVE ng/ml (CUTOFF=300); METHADONE, UR NEGATIVE ng/ml (CUTOFF=300); PHENCYCLIDINE,URINE NEGATIVE ng/ml (CUTOFF=25); URINE AMPHETAMINES NEGATIVE ng/ml (CUTOFF=500); URINE BARBITURATES NEGATIVE ng/ml (CUTOFF=200); URINE BENZODIAZEPINES NEGATIVE ng/ml (CUTOFF=200)
[2017-11-02 22:01] LABS: OPIATES, URI POSITIVE ng/ml (CUTOFF=300)
[2017-11-02] MEDS ORDERED: ONDANSETRON 4 MG/2 ML VIAL IVPUSH PRN (22:10)
[2017-11-03] MEDS ORDERED: chlordiazePOXIDE HCL 25 MG CAPSULE ONE ×6 (00:20→17:52)
[2017-11-03] MEDS: SODIUM CHLORIDE 1,000 ML IV SCH ×3 (02:32→21:50)
[2017-11-03] MEDS: chlordiazePOXIDE HCL 25 MG CAPSULE PO SCH ×4 (05:17→22:50)
[2017-11-03] MEDS: DIVALPROEX SODIUM 250 MG TABLET E.C. (FP) PO SCH ×3 (06:17→23:14)
[2017-11-03] MEDS: HEPARIN NA (PORCINE) 5,000 UNITS/ML 1ML VIAL SQ SCH ×4 (06:17→21:52)
[2017-11-03] MEDS: GABAPENTIN 100 MG CAPSULE (FP) PO SCH (06:18)
[2017-11-03] MEDS ORDERED: METHADONE HCL 40 MG DISPERSABLE TABLET ONE (06:32)
--- NOTE | 2017-11-03 08:10 | CONSULT ---
Consult Detox [facility] Reason for Current Admission/Consult: alcohol use disorder, pain management Referred by:: dr. Nelda Schwarz - History History of Present Illness: 47 yo f w h/o opioi [facility], Last ae ofmedication was 10/30 at that time was given 1 bottle of methadone however utox was neg for methadone and pos for opiates indicating patient has not had methadone since 11/30 until medicated this am with 80mg. admitte with uncontrolled nausea and vomiting now taking po h/o chornic alcoholism 1 gallon every other day, spirits has been detoxed at [facility] in past and in hospital recently has not gone for rehb or followup PMH of HTN, bipolar do on meds, and hepatitis C w acute onset abdominal pain, bilious vomiting, and intermittent non-bloody diarrhea since last night. Her symptoms began yesterday after drinking a reported gallon of vodka along with smoking marijuana. She had a recent admission in August with similar symptoms after EtOH intoxication and completed a Librium detox during that stay. Denies hematemesis, hematachezia, fever, chills. No chest pain. cjart reveiwed, labs adn imaging reviewed, dicussed case with medical staff, rubi neg so unlikely to be pancreatitis. c/o sever epigastric pain radiating to back requesting pain medication. - History Source History Provided By: Patient, Medical Record, Caregiver Limitations to Obtaining History: No Limitations - Alcohol/Substance Use Hx Alcohol Use: Yes (11/01/17) Hx Substance Use: Yes (solomonerolexi) Hx Substance Use Treatment: Yes ([facility]) - Current Drug/Alcohol Use Alcohol Route: Oral Frequency: Daily Amount used: 1/2 gallon spirits Age of first use: 16 Date of Last Use: 11/01/17 - Past Medical History Gastrointestinal: Yes: Pancreatitis Hepatobiliary: Yes: Hepatitis C ...LMP: 08/24/17 Infectious Disease: Yes: HIV Psych: Yes: Addictions, Bipolar - Past Surgical History Past Surgical History: Yes: None - Significant Medical Findings: 47 yo f on TP admitted iwth uncontrolled nausea nd vomiting after alcohol binge and appears ot have stopped taking methadone as precribed on 10/30 so may also have element of opioid withdrawal. methadone restarted, on libirum detox, nausea an vomiting controlled c/o abdo natividad rqdiating to darren. CIWA Score - CIWA Score Nausea/Vomitin-Mild Nausea/No Vomiting Muscle Tremors: 1-None Visible, but [place] Anxiety: 3 Agitation: 3 Paroxysmal Sweats: No Perspiration Orientation: 0-Oriented Tacttile Disturbances: 0-None Auditory Disturbances: 0-None Visual Disturbances: 0-None Headache: 0-None Present CIWA-Ar Total Score: 8 Assessment Plan - Diagnosis (1) Abdominal pain Status: Acute (2) Alcohol dependence with uncomplicated withdrawal Status: Acute (3) Bipolar II disorder Status: Acute (4) Opioid dependence on agonist therapy Status: Acute (5) Tobacco dependence Status: Chronic - Plan Plan: 47 yo f with alcohol withdrawal sydnrome, on MAT for opioid dependence on librium etox taking po c/o abdo natividad radiating to back. Recommend: 1. Opioid use disorder - cont methadone 80mg daily, repeat utox 2. alcoholism - cont libirum detox, vitamin supplementation, ambien for sleep, use prnmedications for anxiety and pain management 3. nausea and vomiting- s/l zofran prn 4. abdo pain - flexeril, lidodrm path increase neurontin, do not give iv opiodis , is not pancreatitis, may be gastritis state protonix. can transfer to [facility] for rehab if patient is in agrement when medicallys table, 5. low k - supplement until highnormal value thank you for this consult Amadou Parrish MD [phone] - Medication Detox Regimen/Protocol: Librium
[2017-11-03 08:56] LABS: BASO % 0.3 % (0-2.0); EOS % 0.1 % (0-4.5); HEMATOCRIT 44.8 % (32.4-45.2); HEMOGLOBIN 14.9 GM/dL (10.7-15.3); LYMPH % 35.5 % (8-40); MCH 33.3 pg (25.7-33.7); MCHC 33.2 g/dl (32.0-36.0); MEAN CELL VOLUME 100.2 fl (80-96); MEAN PLT VOLUME 10.7 fl (7.5-11.1); MONO % 9.3 % (3.8-10.2); NEUT % 54.8 % (42.8-82.8); PLATELET COUNT 140 K/MM3 (134-434); RBC 4.47 M/mm3 (3.60-5.2); RDW 13.9 % (11.6-15.6); WHITE BLOOD COUNT 7.4 K/mm3 (4.0-10.0)
[2017-11-03 09:32] LABS: ALBUMIN 3.8 g/dl (3.4-5.0); ANION GAP 9 (8-16); BLOOD UREA NITROGEN 5 mg/dL (7-18); CALCIUM 8.3 mg/dL (8.5-10.1); CHLORIDE 103 mmol/L (98-107); CO2 24 mmol/L (21-32); CREATININE 0.8 mg/dL (0.55-1.02); GLUCOSE,RANDOM 105 mg/dL (74-106); MAGNESIUM 2.1 mg/dL (1.8-2.4); PHOSPHOROUS 1.9 mg/dL (2.5-4.9); POTASSIUM 3.3 mmol/L (3.5-5.1); SGOT/AST 39 U/L (15-37); SGPT/ALT 34 U/L (12-78); SODIUM 136 mmol/L (136-145)
[2017-11-03 09:34] LABS: ALK PHOS 116 U/L (45-117); BILIRUBIN,TOTAL 1.2 mg/dL (0.2-1.0); TOT PROT 7.9 g/dl (6.4-8.2)
[2017-11-03] MEDS ORDERED: PATIENT'S OWN MEDICATION (NON-FORMULARY) (Hypromellose 0.5% Opth Soln [Artificial Tears] 1 AU SCH (10:00)
[2017-11-03] MEDS ORDERED: FOLIC ACID 1 MG TABLET (FP) PO ONE (10:00)
[2017-11-03] MEDS ORDERED: THIAMINE HCL 200 MG/2 ML VIAL IVPB SCH (10:00)
[2017-11-03] MEDS ORDERED: ZOLPIDEM TARTRATE 5 MG TABLET PO PRN (10:47)
[2017-11-03] MEDS ORDERED: ONDANSETRON *ODT* 4 MG TABLET SL PRN (10:50)
[2017-11-03] MEDS: ARTIFICIAL TEARS (POLYVINYL ALCOHOL 1.4%) OPTH DROPS OU SCH (10:59)
[2017-11-03] MEDS: QUEtiapine FUMARATE 300 MG TABLET PO SCH ×2 (11:00→21:49)
[2017-11-03] MEDS ORDERED: diphenhydrAMINE HCL 25 MG CAPSULE (FP) PO ONE (11:22)
[2017-11-03] MEDS: LIDOCAINE 5% TOPICAL PATCH TP SCH (14:52)
[2017-11-03] MEDS: PANTOPRAZOLE 40 MG TABLET (FP) PO SCH (14:52)
[2017-11-03] MEDS: POTASSIUM CHLORIDE TABS 20 MEQ TABLET.ER (FP) PO SCH ×2 (14:53→21:48)
[2017-11-03] MEDS: CYCLOBENZAPRINE HCL 10 MG TABLET (FP) PO SCH ×2 (14:54→21:46)
[2017-11-03] MEDS: GABAPENTIN 300 MG CAPSULE (FP) PO SCH ×2 (14:55→21:48)
--- NOTE | 2017-11-03 15:06 | PN ---
Teaching Attending Note Name of Resident: Nelda Schwarz ATTENDING PHYSICIAN STATEMENT I saw and evaluated the patient. I reviewed the resident's note and discussed the case with the resident. I agree with the resident's findings and plan as documented. SUBJECTIVE: Patient is a 47yo female, continues to complain of having abdominal pain, but less than before. Patient keeps asking for pain meds. OBJECTIVE: Vital Signs Temperature 98.0 F 11/03/17 10:00 Pulse Rate 93 H 11/03/17 10:00 Respiratory Rate 18 11/03/17 10:00 Blood Pressure 102/65 11/03/17 10:00 O2 Sat by Pulse Oximetry (%) 98 11/03/17 09:45 CBCD WBC 7.4 K/mm3 (4.0-10.0) 11/03/17 08:30 RBC 4.47 M/mm3 (3.60-5.2) 11/03/17 08:30 Hgb 14.9 GM/dL (10.7-15.3) 11/03/17 08:30 Hct 44.8 % (32.4-45.2) 11/03/17 08:30 MCV 100.2 fl (80-96) H 11/03/17 08:30 MCHC 33.2 g/dl (32.0-36.0) 11/03/17 08:30 RDW 13.9 % (11.6-15.6) 11/03/17 08:30 Plt Count 140 K/MM3 (134-434) D 11/03/17 08:30 MPV 10.7 fl (7.5-11.1) 11/03/17 08:30 CMP Sodium 136 mmol/L (136-145) 11/03/17 08:30 Potassium 3.3 mmol/L (3.5-5.1) L 11/03/17 08:30 Chloride 103 mmol/L (98-107) 11/03/17 08:30 Carbon Dioxide 24 mmol/L (21-32) 11/03/17 08:30 Anion Gap 9 (8-16) 11/03/17 08:30 BUN 5 mg/dL (7-18) L 11/03/17 08:30 Creatinine 0.8 mg/dL (0.55-1.02) 11/03/17 08:30 Creat Clearance w eGFR > 60 (>60) 11/03/17 08:30 Random Glucose 105 mg/dL (74-106) D 11/03/17 08:30 Calcium 8.3 mg/dL (8.5-10.1) L 11/03/17 08:30 Total Bilirubin 1.2 mg/dL (0.2-1.0) H 11/03/17 08:30 AST 39 U/L (15-37) H D 11/03/17 08:30 ALT 34 U/L (12-78) 11/03/17 08:30 Alkaline Phosphatase 116 U/L (45-117) 11/03/17 08:30 Total Protein 7.9 g/dl (6.4-8.2) 11/03/17 08:30 Albumin 3.8 g/dl (3.4-5.0) 11/03/17 08:30 CARDIAC ENZYMES Creatine Kinase 309 IU/L (26-192) H 11/02/17 12:20 Troponin I 0.03 ng/ml (0.00-0.05) 11/02/17 12:20 Current Medications Generic Name Dose Route Start Last Admin Trade Name Freq PRN Reason Stop Dose Admin Acetaminophen 650 mg 11/02/17 16:00 11/02/17 21:59 Tylenol - PO 650 mg Q4H PRN Administration FEVER OR PAIN Artificial Tears 1 drop 11/03/17 10:00 11/03/17 10:59 Artificial Tears OU Not Given DAILY [facility] Chlordiazepoxide HCl 25 mg 11/03/17 17:00 Librium - PO 11/04/17 11:01 [id number] G[facility] Chlordiazepoxide HCl 15 mg 11/04/17 17:00 Librium - PO 11/05/17 11:01 [id number] [facility] Chlordiazepoxide HCl 25 mg 11/02/17 16:07 Librium - PO 11/05/17 16:06 Q4H PRN WITHDRAWAL(CONT SUBST) Cyclobenzaprine HCl 5 mg 11/03/17 14:00 11/03/17 14:54 Flexeril - PO 5 mg TID [facility] Administration Divalproex Sodium 250 mg 11/02/17 22:00 11/03/17 14:54 Depakote - PO 250 mg TID [facility] Administration Gabapentin 300 mg 11/03/17 10:49 11/03/17 14:55 Neurontin - PO 300 mg TID [facility] Administration Heparin Sodium (Porcine) 5,000 unit 11/02/17 22:00 11/03/17 14:55 Heparin - SQ Not Given TID [facility] Sodium Chloride 1,000 mls @ 100 mls/hr 11/02/17 16:00 11/03/17 12:42 Normal Saline - IV 100 mls/hr ASDIR [facility] Administration Lidocaine 1 patch 11/03/17 11:00 11/03/17 14:52 Lidoderm Patch - TP 1 patch DAILY [facility] Administration Methadone HCl 80 mg 11/03/17 06:30 Dolophine - PO DAILY@0600 [facility] Miscellaneous 1 each 11/03/17 22:00 Lidoderm Patch Removal MC DAILY@2200 [facility] Ondansetron HCl 8 mg 11/03/17 10:50 Zofran Odt - SL Q6H PRN NAUSEA AND/OR VOMITING Pantoprazole Sodium 40 mg 11/03/17 11:00 11/03/17 14:52 Protonix - PO 40 mg DAILY [facility] Administration Potassium Chloride 20 meq 11/03/17 11:00 11/03/17 14:53 K-Dur - PO 20 meq BID [facility] Administration Multivit/Folic Acid/Iron 1 tab 11/04/17 10:00 Vitamins (Sjr) - PO DAILY [facility] Quetiapine Fumarate 300 mg 11/02/17 22:00 11/03/17 11:00 Seroquel - PO 300 mg BID [facility] Administration Thiamine HCl 100 mg 11/03/17 22:00 Vitamin B1 - PO HS [facility] Zolpidem Tartrate 10 mg 11/03/17 10:47 Ambien - PO HS PRN INSOMNIA Home Medications Medication Instructions Recorded Methadone [Dolophine -] 80 mg PO ACBK 09/13/16 Diphenhydramine HCl [Benadryl 25 mg PO BID PRN 07/18/17 Capsule -] Hypromellose 0.5% Opth Soln 1 drop AU DAILY 07/18/17 [Artificial Tears] Multivitamin [One Daily] 1 tab PO DAILY 07/18/17 Divalproex [Depakote -] 250 mg PO TID #90 tab.ec 07/19/17 Docusate Sodium [Colace -] 100 mg PO DAILY PRN #30 cap 07/19/17 Fluticasone Prop 0.05% Nasal 1 spray NS DAILY #1 bottle 07/19/17 [Flonase -] Folic Acid 1 mg PO DAILY #30 tablet 07/19/17 Gabapentin 100 mg PO TID #90 capsule 07/19/17 Quetiapine Fumarate [Seroquel] 300 mg PO BID #60 tablet 07/19/17 Thiamine HCl [Vitamin B1 -] 1 tab PO DAILY #30 tablet 07/19/17 Chlordiazepoxide [Librium -] 15 mg PO [id number]-MEE capsule MDD 4 09/26/17 Chlordiazepoxide [Librium -] 25 mg PO Q4H PRN capsule MDD 6 09/26/17 Chlordiazepoxide [Librium -] 25 mg PO [id number] capsule MDD 4 09/26/17 Chlordiazepoxide [Librium -] 50 mg PO [id number] capsule MDD 4 09/26/17 Methadone [Dolophine -] 80 mg PO DAILY@0600 tablet MDD 1 09/26/17 Pantoprazole Sodium [Protonix -] 40 mg PO DAILY #30 tablet.ec 09/26/17 Simethicone [Mylicon -] 80 mg PO Q4H PRN tab.chew 09/26/17 PE: improved midepigastric pain rest of PE per resident's note EKG: NSR , rate of 61, no ST elevations of depressions. US of abdomen reported: Abdominal pain. Real time examination of the abdomen demonstrates the following: The gallbladder is normal in size and free of calculi with no evidence of intrahepatic biliary duct dilatation. The extrahepatic biliary tree is slightly dilated with the CBD measuring 7 mm. No obvious obstruction is suggested. The liver is normal in size. It is hyperechoic in texture consistent with diffuse fatty infiltration. No discrete intrahepatic masses are identified. Hepatopedal flow is documented within the main portal vein. The pancreas is normal in size and texture with no pancreatic masses identified. There is no evidence of hydronephrosis or acute abnormalities of the right kidney. There is no evidence of AAA. The IVC is patent. IMPRESSION: Mild diffuse fatty infiltration of the liver. Please see above discussion. ASSESSMENT AND PLAN: Patient is a 47yo woman with PMHx of PSA on Methadone (80mg daily), ETOH dependency with recent alcohol detox 1 month ago who presents to the ED. c/o having abdominal pain, nausea, bilious emesis after drinking a gallon of Vodka , and smoking Mariguana. # Alcohol intoxication on Librium detox protocol continue , on the case , mild tremor noted IVF, Folic acid, thiamine continue #Acute abdominal pain with N/V improved - U/S mildly dilated CBD to 7mm unchanged from prior MRCP Jul 2017, IVF, full liquid diet will advance as tolerated #PolySubstance Abuse -continue daily Methadone (80mg daily) #DVT PPX - Heparin
[2017-11-03] MEDS ORDERED: diphenhydrAMINE HCL 25 MG CAPSULE (FP) PO PRN (16:19)
--- NOTE | 2017-11-03 16:50 | PN ---
Physical Exam: SUBJECTIVE: Patient seen and examined. No further nausea or vomiting. Tolerating lq diet and states she is hungry. Continues to have abdominal pain, and some back pain. OBJECTIVE: Vital Signs Period Temp Pulse Resp BP Sys/Moore Pulse Ox Last 24 Hr 97.7 F-98.7 F 81-112 18-18 102-156/65-111 98-100 GENERAL: nad, aaox3 EYES: sclera anicteric, conjunctiva clear ENT: oropharynx clear without exudates, MMM LUNGS: CTAB HEART: rrr, normal s1/s2, no m/r/g ABDOMEN: Soft, NTND, normoactive bowel sounds LOWER EXTREMITIES: 2+ DP pulses, wwp, no edema CBC, BMP 11/03/17 08:30 11/03/17 08:30 Hepatic Panel Total Bilirubin 1.2 mg/dL (0.2-1.0) H 11/03/17 08:30 AST 39 U/L (15-37) H D 11/03/17 08:30 ALT 34 U/L (12-78) 11/03/17 08:30 Alkaline Phosphatase 116 U/L (45-117) 11/03/17 08:30 Albumin 3.8 g/dl (3.4-5.0) 11/03/17 08:30 Active Medications Acetaminophen (Tylenol -) 650 mg PO Q4H PRN PRN Reason: FEVER OR PAIN Last Admin: 11/02/17 21:59 Dose: 650 mg Artificial Tears (Artificial Tears) 1 drop OU DAILY [facility] Last Admin: 11/03/17 10:59 Dose: Not Given Chlordiazepoxide HCl (Librium -) 15 mg PO [id number] [facility] Stop: 11/05/17 11:01 Chlordiazepoxide HCl (Librium -) 25 mg PO Q4H PRN PRN Reason: WITHDRAWAL(CONT SUBST) Stop: 11/05/17 16:06 Chlordiazepoxide HCl (Librium -) 25 mg PO [id number]-MLE [facility]ALE[facility] Stop: 11/04/17 11:01 Cyclobenzaprine HCl (Flexeril -) 5 mg PO TID [facility] Last Admin: 11/03/17 14:54 Dose: 5 mg Diphenhydramine HCl (Benadryl -) 25 mg PO DAILY PRN PRN Reason: FOR ITCHING Divalproex Sodium (Depakote -) 250 mg PO TID [facility] Last Admin: 11/03/17 14:54 Dose: 250 mg Gabapentin (Neurontin -) 300 mg PO TID [facility] Last Admin: 11/03/17 14:55 Dose: 300 mg Heparin Sodium (Porcine) (Heparin -) 5,000 unit SQ TID [facility] Last Admin: 11/03/17 14:55 Dose: Not Given Sodium Chloride (Normal Saline -) 1,000 mls @ 100 mls/hr IV ASDIR [facility] Last Admin: 11/03/17 12:42 Dose: 100 mls/hr Lidocaine (Lidoderm Patch -) 1 patch TP DAILY [facility] Last Admin: 11/03/17 14:52 Dose: 1 patch Methadone HCl (Dolophine -) 80 mg PO DAILY@0600 [facility] Miscellaneous (Lidoderm Patch Removal) 1 each MC DAILY@2200 [facility] Ondansetron HCl (Zofran Odt -) 8 mg SL Q6H PRN PRN Reason: NAUSEA AND/OR VOMITING Pantoprazole Sodium (Protonix -) 40 mg PO DAILY [facility] Last Admin: 11/03/17 14:52 Dose: 40 mg Potassium Chloride (K-Dur -) 20 meq PO BID [facility] Last Admin: 11/03/17 14:53 Dose: 20 meq Multivit/Folic Acid/Iron ( Vitamins (Sjr) -) 1 tab PO DAILY [facility] Quetiapine Fumarate (Seroquel -) 300 mg PO BID [facility] Last Admin: 11/03/17 11:00 Dose: 300 mg Thiamine HCl (Vitamin B1 -) 100 mg PO HS [facility] Zolpidem Tartrate (Ambien -) 10 mg PO HS PRN PRN Reason: INSOMNIA ASSESSMENT/PLAN: 47yo woman with PMH of HTN and chronic alcohol and opioid use disorders who p/w acute onset abdominal pain, nausea, and vomiting after EtOH intoxication. #Alcohol detox -Dr. Littlejohn consulted -Continue librium detox, use PRN for anxiety, pain management -thiamine, folate, and MVI -Ambien PRN for insomnia #abdominal pain with n/v, improving - lipase wnl, U/S mildly dilated CBD to 7mm unchanged from prior MRCP Jul 2017 -d/c IVFs -flexiril, lidoderm path -home gabapentin increased to TID -anti-emetics PRN #opioid use disorder -continue Methadone 80mg daily #bipolar - continue home seroquel and depakote #FEN: PO hydration / repleting K / Low Na diet #PPX - -DVT Heparin TID #DISPO - continue M/S, will transfer to [facility] for rehab FULL code d/w Dr. Nathalia Schwarz MD PGY1 - Internal Medicine Visit type - Emergency Visit Emergency Visit: No - New Patient This patient is new to me today: No - Critical Care Critical Care patient: No
[2017-11-03] MEDS ORDERED: chlordiazePOXIDE HCL 25 MG CAPSULE PO SCH (17:00)
[2017-11-03] MEDS ORDERED: QUEtiapine FUMARATE 100 MG TABLET (FP) ONE (21:39)
[2017-11-03] MEDS ORDERED: LIDOCAINE PATCH REMOVAL MC SCH (22:00)
[2017-11-03] MEDS ORDERED: THIAMINE HCL 100 MG TABLET (FP) PO SCH (22:00)
[2017-11-04] MEDS: METHADONE HCL 40 MG DISPERSABLE TABLET PO SCH ×2 (06:12→06:50)
[2017-11-04] MEDS: CYCLOBENZAPRINE HCL 10 MG TABLET (FP) PO SCH ×2 (06:49→14:06)
[2017-11-04] MEDS: HEPARIN NA (PORCINE) 5,000 UNITS/ML 1ML VIAL SQ SCH ×2 (06:49→14:07)
[2017-11-04] MEDS: GABAPENTIN 300 MG CAPSULE (FP) PO SCH ×2 (06:50→14:06)
[2017-11-04] MEDS: chlordiazePOXIDE HCL 25 MG CAPSULE PO SCH ×2 (06:50→10:13)
[2017-11-04] MEDS: DIVALPROEX SODIUM 250 MG TABLET E.C. (FP) PO SCH ×2 (08:03→14:06)
[2017-11-04 08:27] LABS: HEMATOCRIT 41.4 % (32.4-45.2); HEMOGLOBIN 13.7 GM/dL (10.7-15.3); MCH 33.4 pg (25.7-33.7); MCHC 33.1 g/dl (32.0-36.0); MEAN CELL VOLUME 100.9 fl (80-96); MEAN PLT VOLUME 11.5 fl (7.5-11.1); PLATELET COUNT 93 K/MM3 (134-434); RBC 4.11 M/mm3 (3.60-5.2); RDW 13.6 % (11.6-15.6); WHITE BLOOD COUNT 7.5 K/mm3 (4.0-10.0)
[2017-11-04 09:00] LABS: CHLORIDE 108 mmol/L (98-107); POTASSIUM 4.2 mmol/L (3.5-5.1); SODIUM 142 mmol/L (136-145)
[2017-11-04 09:13] LABS: ANION GAP 12 (8-16); BLOOD UREA NITROGEN 10 mg/dL (7-18); CALCIUM 8.5 mg/dL (8.5-10.1); CO2 22 mmol/L (21-32); CREATININE 0.7 mg/dL (0.55-1.02); GLUCOSE,RANDOM 78 mg/dL (74-106)
--- NOTE | 2017-11-04 09:55 | PN ---
Teaching Attending Note Name of Resident: Nelda Schwarz ATTENDING PHYSICIAN STATEMENT I saw and evaluated the patient. I reviewed the resident's note and discussed the case with the resident. I agree with the resident's findings and plan as documented. SUBJECTIVE: Patient is feeling better, with no acute distress. OBJECTIVE: Vital Signs Temperature 98.3 F 11/04/17 06:00 Pulse Rate 80 11/04/17 06:00 Respiratory Rate 20 11/04/17 06:00 Blood Pressure 108/79 11/04/17 06:00 O2 Sat by Pulse Oximetry (%) 98 11/03/17 09:45 CBCD WBC 7.5 K/mm3 (4.0-10.0) 11/04/17 06:00 RBC 4.11 M/mm3 (3.60-5.2) 11/04/17 06:00 Hgb 13.7 GM/dL (10.7-15.3) 11/04/17 06:00 Hct 41.4 % (32.4-45.2) 11/04/17 06:00 MCV 100.9 fl (80-96) H 11/04/17 06:00 MCHC 33.1 g/dl (32.0-36.0) 11/04/17 06:00 RDW 13.6 % (11.6-15.6) 11/04/17 06:00 Plt Count 93 K/MM3 (134-434) L D 11/04/17 06:00 MPV 11.5 fl (7.5-11.1) H 11/04/17 06:00 CMP Sodium 142 mmol/L (136-145) 11/04/17 06:00 Potassium 4.2 mmol/L (3.5-5.1) D 11/04/17 06:00 Chloride 108 mmol/L (98-107) H 11/04/17 06:00 Carbon Dioxide 22 mmol/L (21-32) 11/04/17 06:00 Anion Gap 12 (8-16) 11/04/17 06:00 BUN 10 mg/dL (7-18) D 11/04/17 06:00 Creatinine 0.7 mg/dL (0.55-1.02) 11/04/17 06:00 Creat Clearance w eGFR > 60 (>60) 11/03/17 08:30 Random Glucose 78 mg/dL (74-106) D 11/04/17 06:00 Calcium 8.5 mg/dL (8.5-10.1) 11/04/17 06:00 Total Bilirubin 1.2 mg/dL (0.2-1.0) H 11/03/17 08:30 AST 39 U/L (15-37) H D 11/03/17 08:30 ALT 34 U/L (12-78) 11/03/17 08:30 Alkaline Phosphatase 116 U/L (45-117) 11/03/17 08:30 Total Protein 7.9 g/dl (6.4-8.2) 11/03/17 08:30 Albumin 3.8 g/dl (3.4-5.0) 11/03/17 08:30 CARDIAC ENZYMES Creatine Kinase 309 IU/L (26-192) H 11/02/17 12:20 Troponin I 0.03 ng/ml (0.00-0.05) 11/02/17 12:20 Current Medications Generic Name Dose Route Start Last Admin Trade Name Freq PRN Reason Stop Dose Admin Acetaminophen 650 mg 11/02/17 16:00 11/02/17 21:59 Tylenol - PO 650 mg Q4H PRN Administration FEVER OR PAIN Artificial Tears 1 drop 11/03/17 10:00 11/03/17 10:59 Artificial Tears OU Not Given DAILY GONZALEZ Chlordiazepoxide HCl 15 mg 11/04/17 17:00 Librium - PO 11/05/17 11:01 [id number] GONZALEZ Chlordiazepoxide HCl 25 mg 11/02/17 16:07 Librium - PO 11/05/17 16:06 Q4H PRN WITHDRAWAL(CONT SUBST) Chlordiazepoxide HCl 25 mg 11/03/17 17:00 11/04/17 06:50 Librium - PO 11/04/17 11:01 25 mg [id number] GONZALEZ Administration Cyclobenzaprine HCl 5 mg 11/03/17 14:00 11/04/17 06:49 Flexeril - PO 5 mg TID GONZALEZ Administration Diphenhydramine HCl 25 mg 11/03/17 16:19 Benadryl - PO DAILY PRN FOR ITCHING Divalproex Sodium 250 mg 11/02/17 22:00 11/04/17 08:03 Depakote - PO 250 mg TID GONZALEZ Administration Gabapentin 300 mg 11/03/17 10:49 11/04/17 06:50 Neurontin - PO 300 mg TID [facility] Administration Heparin Sodium (Porcine) 5,000 unit 11/02/17 22:00 11/04/17 06:49 Heparin - SQ Not Given TID [facility] Lidocaine 1 patch 11/03/17 11:00 11/03/17 14:52 Lidoderm Patch - TP 1 patch DAILY GONZALEZ Administration Methadone HCl 80 mg 11/03/17 06:30 11/04/17 06:50 Dolophine - PO 80 mg DAILY@0600 [facility] Administration Miscellaneous 1 each 11/03/17 22:00 11/03/17 21:51 Lidoderm Patch Removal MC Not Given DAILY@2200 [facility] Ondansetron HCl 8 mg 11/03/17 10:50 Zofran Odt - SL Q6H PRN NAUSEA AND/OR VOMITING Pantoprazole Sodium 40 mg 11/03/17 11:00 11/03/17 14:52 Protonix - PO 40 mg DAILY [facility] Administration Potassium Chloride 20 meq 11/03/17 11:00 11/03/17 21:48 K-Dur - PO 20 meq BID [facility] Administration Multivit/Folic Acid/Iron 1 tab 11/04/17 10:00 Vitamins (Sjr) - PO DAILY [facility] Quetiapine Fumarate 300 mg 11/04/17 10:00 Seroquel - PO BID [facility] Thiamine HCl 100 mg 11/03/17 22:00 11/03/17 21:48 Vitamin B1 - PO 100 mg HS [facility] Administration Zolpidem Tartrate 10 mg 11/03/17 10:47 11/03/17 22:50 Ambien - PO 10 mg HS PRN Administration INSOMNIA Home Medications Medication Instructions Recorded Methadone [Dolophine -] 80 mg PO ACBK 09/13/16 Diphenhydramine HCl [Benadryl 25 mg PO BID PRN 07/18/17 Capsule -] Hypromellose 0.5% Opth Soln 1 drop AU DAILY 07/18/17 [Artificial Tears] Multivitamin [One Daily] 1 tab PO DAILY 07/18/17 Divalproex [Depakote -] 250 mg PO TID #90 tab.ec 07/19/17 Docusate Sodium [Colace -] 100 mg PO DAILY PRN #30 cap 07/19/17 Fluticasone Prop 0.05% Nasal 1 spray NS DAILY #1 bottle 07/19/17 [Flonase -] Folic Acid 1 mg PO DAILY #30 tablet 07/19/17 Gabapentin 100 mg PO TID #90 capsule 07/19/17 Quetiapine Fumarate [Seroquel] 300 mg PO BID #60 tablet 07/19/17 Thiamine HCl [Vitamin B1 -] 1 tab PO DAILY #30 tablet 07/19/17 Chlordiazepoxide [Librium -] 15 mg PO [id number] capsule MDD 4 09/26/17 Chlordiazepoxide [Librium -] 25 mg PO Q4H PRN capsule MDD 6 09/26/17 Chlordiazepoxide [Librium -] 25 mg PO [id number] capsule MDD 4 09/26/17 Chlordiazepoxide [Librium -] 50 mg PO [id number] capsule MDD 4 09/26/17 Methadone [Dolophine -] 80 mg PO DAILY@0600 tablet MDD 1 09/26/17 Pantoprazole Sodium [Protonix -] 40 mg PO DAILY #30 tablet.ec 09/26/17 Simethicone [Mylicon -] 80 mg PO Q4H PRN tab.chew 09/26/17 PE: per resident's note ASSESSMENT AND PLAN: Patient is a 47yo woman with PMHx of PSA on Methadone (80mg daily), ETOH dependency with recent alcohol detox 1 month ago who presents to the ED. c/o having abdominal pain, nausea, bilious emesis after drinking a gallon of Vodka , and smoking [place]. # Alcohol intoxication on Librium detox protocol continue , discussed with will accept the patient back to rehab. for detoxing , no further tremors noted. continue Folic acid, thiamine. #Acute abdominal pain with N/V improved - U/S mildly dilated CBD to 7mm unchanged from prior MRCP Jul 2017, IVF, full liquid diet, continue and advance as tolerated #PolySubstance Abuse -continue daily Methadone (80mg daily) #DVT PPX - Heparin patient can be discharged to rehab today accepted by .
[2017-11-04] MEDS ORDERED: QUEtiapine FUMARATE 100 MG TABLET (FP) PO SCH (10:00)
[2017-11-04] MEDS ORDERED: PRENATAL VITAMINS W/ FOLIC ACID TABLET (FP) PO SCH (10:00)
[2017-11-04] MEDS: LIDOCAINE 5% TOPICAL PATCH TP SCH (10:10)
[2017-11-04] MEDS: POTASSIUM CHLORIDE TABS 20 MEQ TABLET.ER (FP) PO SCH (10:12)
[2017-11-04] MEDS: PANTOPRAZOLE 40 MG TABLET (FP) PO SCH (10:12)
--- NOTE | 2017-11-04 10:48 | PN ---
[facility] Progress Note Note: called , patient to be transferred to [facility] to complete inpatient detoxifciation. request approved. needs to go through [facility]. Amadou Littlejohn MD [phone]
--- NOTE | 2017-11-04 11:40 | DS ---
Physical Exam: SUBJECTIVE: Patient seen and examined. She is feeling better. No further n/v. No CP or sob. Tolerating regular diet. OBJECTIVE: Vital Signs Period Temp Pulse Resp BP Sys/Moore Pulse Ox Last 24 Hr 98.0 F-98.3 F 80-105 18-20 100-108/60-79 PHYSICAL EXAM GENERAL: nad, aaox3 EYES: sclera anicteric, conjunctiva clear ENT: oropharynx clear without exudates, MMM LUNGS: CTAB HEART: rrr, normal s1/s2, no m/r/g ABDOMEN: Soft, NTND, normoactive bowel sounds LOWER EXTREMITIES: 2+ DP pulses, wwp, no edema CBC, BMP 11/04/17 06:00 11/04/17 06:00 Hepatic Panel Total Bilirubin 1.2 mg/dL (0.2-1.0) H 11/03/17 08:30 AST 39 U/L (15-37) H D 11/03/17 08:30 ALT 34 U/L (12-78) 11/03/17 08:30 Alkaline Phosphatase 116 U/L (45-117) 11/03/17 08:30 Albumin 3.8 g/dl (3.4-5.0) 11/03/17 08:30 11/02/17 12:20 Total Amylase 97 Lipase 265 UA Urine Color Colorless 11/02/17 19:35 Urine Appearance Clear 11/02/17 19:35 Urine pH 7.0 (5.0-8.0) 11/02/17 19:35 Ur Specific [place] 1.002 (1.001-1.035) 11/02/17 19:35 Urine Protein Negative (NEGATIVE) 11/02/17 19:35 Urine Glucose (UA) Negative (NEGATIVE) 11/02/17 19:35 Urine Ketones 1+ (NEGATIVE) H 11/02/17 19:35 Urine Blood Negative (NEGATIVE) 11/02/17 19:35 Urine Nitrite Negative (NEGATIVE) 11/02/17 19:35 Urine Bilirubin Negative (NEGATIVE) 11/02/17 19:35 Ur Leukocyte Esterase Negative (NEGATIVE) 11/02/17 19:35 UTOX 11/02/17 19:35 Opiates Screen Positive Methadone Screen Negative Barbiturate Screen Negative Phencyclidine Screen Negative Ur Amphetamines Screen Negative MDMA (Ecstasy) Screen Negative Benzodiazepines Screen Negative Cocaine Screen Negative U Marijuana (THC) Screen Negative EKG: NSR rate of 61 bpm, axis nml, intervals nml, no st elevations or depressions, t waves nml IMAGING: RUQ U/S (11/02/17): HISTORY PROVIDED: Abdominal pain. Real time examination of the abdomen demonstrates the following: The gallbladder is normal in size and free of calculi with no evidence of intrahepatic biliary duct dilatation. The extrahepatic biliary tree is slightly dilated with the CBD measuring 7 mm. No obvious obstruction is suggested. The liver is normal in size. It is hyperechoic in texture consistent with diffuse fatty infiltration. No discrete intrahepatic masses are identified. Hepatopedal flow is documented within the main portal vein. The pancreas is normal in size and texture with no pancreatic masses identified. There is no evidence of hydronephrosis or acute abnormalities of the right kidney. There is no evidence of AAA. The IVC is patent. IMPRESSION: Mild diffuse fatty infiltration of the liver. Please see above discussion. HOSPITAL COURSE: Date of Admission:11/02/17 Date of Discharge: 11/04/17 Pre-hospital Course: 47yo woman with PMH of HTN, polysubstance abuse, and hepatitis C who p/w acute onset abdominal pain, bilious vomiting, and intermittent non-bloody diarrhea since last night. Her symptoms began yesterday after drinking a reported gallon of vodka along with smoking marijuana. She had a recent admission in August with similar symptoms after EtOH intoxication and completed a Librium detox during that stay. Denies hematemesis, hematachezia, fever, chills. No chest pain Subsequent-hospital Course: Patient was started on Librium protocol and completed two days. Her nausea was controlled with Compazine. She was given thiamine, folate, and multivitamin supplementations. Dr. Littlejohn was consulted. Her abdominal pain was improving and she was tolerating a regular diet. Labs notable for lipase wnl and no acute findings on abdominal U/S. Her regular home medications were restarted. Patient was to be [facility] to [facility] to complete detox, however she left against medical advice. Minutes to complete discharge: 45 Discharge Summary Reason For Visit: NAUSEA,VOMITING Condition: Stable - Instructions Diet, Activity, Other Instructions: PATIENT ADAMANTLY REFUSES HOSPITALIZATION AND WANTS TO LEAVE AGAINST MEDICAL ADVICE. PATIENT WAS TOLD THAT LEAVING AGAINST MEDICAL ADVICE IS DANGEROUS AND CAN LEAD TO WORSENING OF CONDITION, PERMANENT DISABILITY, AND EVEN . THE PATIENT HAS THE CAPACITY TO MAKE HER OWN DECISIONS. SHE AGREES TO RETURN TO THE EMERGENCY DEPARTMENT IF SYMPTOMS WORSEN. Disposition: AGAINST MEDICAL ADVICE - Home Medications Comprehensive Discharge Medication List: Ambulatory Orders Methadone [Dolophine -] 80 mg PO ACBK 09/13/16 Diphenhydramine HCl [Benadryl Capsule -] 25 mg PO BID PRN 07/18/17 Hypromellose 0.5% Opth Soln [Artificial Tears] 1 drop AU DAILY 07/18/17 Divalproex [Depakote -] 250 mg PO TID #90 tab.ec 07/19/17 Docusate Sodium [Colace -] 100 mg PO DAILY PRN #30 cap 07/19/17 Fluticasone Prop 0.05% Nasal [Flonase -] 1 spray NS DAILY #1 bottle 07/19/17 Folic Acid 1 mg PO DAILY #30 tablet 07/19/17 Gabapentin 100 mg PO TID #90 capsule 07/19/17 Quetiapine Fumarate [Seroquel] 300 mg PO BID #60 tablet 07/19/17 Thiamine HCl [Vitamin B1 -] 1 tab PO DAILY #30 tablet 07/19/17 Chlordiazepoxide [Librium -] 15 mg PO [id number] capsule MDD 4 09/26/17 Chlordiazepoxide [Librium -] 25 mg PO Q4H PRN capsule MDD 6 09/26/17 Chlordiazepoxide [Librium -] 25 mg PO [id number] capsule MDD 4 09/26/17 Chlordiazepoxide [Librium -] 50 mg PO [id number] capsule MDD 4 09/26/17 Methadone [Dolophine -] 80 mg PO DAILY@0600 tablet MDD 1 09/26/17 Pantoprazole Sodium [Protonix -] 40 mg PO DAILY #30 tablet.ec 09/26/17 Simethicone [Mylicon -] 80 mg PO Q4H PRN tab.chew 09/26/17 Cyclobenzaprine HCl [Flexeril -] 5 mg PO TID tablet 11/04/17 Vitamins (Sjr) - 1 tab PO DAILY tablet 11/04/17 Zolpidem Tartrate [Ambien] 10 mg PO HS PRN tablet MDD 1 11/04/17 This patient is new to me today: No Emergency Visit: No Critical Care patient: No - Discharge Referral Referred to [facility] Med P.C.: No
[2017-11-04 12:49] VITALS: BP 110/70; PULSE 92; TEMP 98
[2017-11-04] MEDS ORDERED: PT OWN MED DRAWER 7, Y5N ONE (14:03)
[2017-11-04] MEDS: ARTIFICIAL TEARS (POLYVINYL ALCOHOL 1.4%) OPTH DROPS OU SCH (14:07)
[2017-11-04] MEDS ORDERED: chlordiazePOXIDE 5 MG CAPSULE PO SCH (17:00)
== END 2017-11-04 14:55 | disposition left against medical advice (07) | DRG 241 ==
LOC: JER 09:27 → JERBED 15:43 → J8W 11-03 21:26
PROVIDERS: ADMIT Internal Medicine; ATTEND Internal Medicine
PROC: HZ2ZZZZ Detoxification Services for Substance Abuse Treatment (ICD-10-PCS; principal; 2017-11-02)
DX: K29.20 Alcoholic gastritis without bleeding (principal); F10.230 Alcohol dependence with withdrawal, uncomplicated; F10.229 Alcohol dependence with intoxication, unspecified; K83.8 Other specified diseases of biliary tract; F31.9 Bipolar disorder, unspecified; F11.20 Opioid dependence, uncomplicated; I10 Essential (primary) hypertension; R11.2 Nausea with vomiting, unspecified; F17.210 Nicotine dependence, cigarettes, uncomplicated; K76.0 Fatty (change of) liver, not elsewhere classified; B19.20 Unspecified viral hepatitis C without hepatic coma; F19.20 Other psychoactive substance dependence, uncomplicated; F41.9 Anxiety disorder, unspecified; R45.1 Restlessness and agitation
CPT/HCPCS: 36415; 76705-TC; 80048; 80053; 80307; 81003; 82150; 82550; 82553; 83690; 83735; 84100; 84484; 84703; 85025; 85027; 93005; 93010; 99285-25; J1644

== ENCOUNTER 2017-11-05 09:29 | Inpatient (IN) | payer MEDICARE ==
[2017-11-05 10:34] VITALS: BMI 27.0
--- NOTE | 2017-11-05 10:49 | HP ---
CIWA Score - CIWA Score Nausea/Vomitin-Mild Nausea/No Vomiting Muscle Tremors: 1-None Visible, but [place] Anxiety: 4-Mod. Anxious/Guarded Agitation: 4-Moderately Restless Paroxysmal Sweats: No Perspiration Orientation: 1-Uncertain about Date Tacttile Disturbances: 1-Very Mild Itch/Numbness Auditory Disturbances: 0-None Visual Disturbances: 0-None Headache: 1-Very Mild CIWA-Ar Total Score: 13 Admission ROS BHS - HPI Chief Complaint: I need help, I have to get help to stop drinking - I'm sinking deeper and deeper into the hole Allergies/Adverse Reactions: Allergies Allergy/AdvReac Type Severity Reaction Status Date / Time prochlorperazine maleate Allergy Severe DYSTONIA Verified 11/05/17 11:01 [From Compazine] metoclopramide HCl Allergy Verified 11/05/17 11:01 [From Reglan] History of Present Illness: 47 yo woman here for detox from alcohol. Patient comes from [facility] where she was 11/02-11/04/17 and left AMA - started back drinking and then came here to complete the detox started in [facility]. also on methadone program at [facility]. Unclear if history of seizures. Exam Limitations: Intoxication - Ebola screening Have you traveled outside of the country in the last 21 days: No Have you had contact with anyone from an Ebola affected area: No Have you been sick,other than usual withdrawal symptoms: No Do you have a fever: No - Review of Systems Constitutional: Malaise, Changes in sleep, Weakness EENT: reports: No Symptoms Reported Respiratory: reports: No Symptoms reported Cardiac: reports: No Symptoms Reported GI: reports: Nausea : reports: Frequency Musculoskeletal: reports: No Symptoms Reported Integumentary: reports: No Symptoms Reported Neuro: reports: Headache Endocrine: reports: No Symptoms Reported Hematology: reports: No Symptoms Reported Psychiatric: reports: Agitated, Anxious Other Systems: Reviewed and Negative Patient History - Patient Medical History Hx Anemia: No Hx Asthma: No Hx Chronic Obstructive Pulmonary Disease (COPD): No Hx Cancer: No Hx Cardiac Disorders: No Hx Congestive Heart Failure: No Hx Hypertension: No Hx Hypercholesterolemia: No Hx Pacemaker: No HX Cerebrovascular Accident: No Hx Seizures: Yes (unsure) Hx Dementia: No Hx Diabetes: No Hx Gastrointestinal Disorders: No Hx Liver Disease: Yes (HEP C) Hx Genitourinary Disorders: No Hx Sexually Transmitted Disorders: No (DENIES) Hx Renal Disease (ESRD): No Hx Thyroid Disease: No Hx Human Immunodeficiency Virus (HIV): No Hx Hepatitis C: Yes (no treated) Hx Depression: No Hx Suicide Attempt: No Hx Bipolar Disorder: Yes (dipti leb hospilalized 2011 for two months) Hx Schizophrenia: No - Patient Surgical History Past Surgical History: Yes Hx Neurologic Surgery: No Hx Cataract Extraction: No Hx Cardiac Surgery: No Hx Lung Surgery: No Hx Breast Surgery: No Hx Breast Biopsy: No Hx Abdominal Surgery: No Hx Appendectomy: No Hx Cholecystectomy: No Hx Genitourinary Surgery: No Hx Section: Yes Hx Orthopedic Surgery: No Hx Hysterectomy: No Other Surgical History: age 9 - abscess/tumor, benign per pt Anesthesia Reaction: No - PPD History Previous Implant?: Yes Documented Results: Negative w/proof Implanted On Prior [facility] Admission?: No Date: 12/18/15 PPD to be Administered?: No - Reproductive History Patient is a Female of Child Bearing Age (11 -55 yrs old): Yes Last Menstrual Period: 08/24/17 Patient : No - Smoking Cessation Smoking history: Current every day smoker Have you smoked in the past 12 months: No Aproximately how many cigarettes per day: 10 Cigars Per Day: 3 Hx Chewing Tobacco Use: No Initiated information on smoking cessation: Yes 'Breaking Loose' booklet given: 11/05/17 (give on floor) - Substance & Tx. History Hx Alcohol Use: Yes Hx Substance Use: Yes Substance Use Type: Alcohol, Heroin Hx Substance Use Treatment: Yes (detox[facility] - Substances Abused Alcohol Route: Oral Frequency: Daily Amount used: 1 gallon Age of first use: 17 Date of Last Use: 11/05/17 Family Disease History - Family Disease History Family Disease History: Diabetes: Grandparent (mgm - dm, htn), Other: Father ( CVA), Mother (alive, well), Brother ( AIDS), Sister ( THROAT CA) Admission Physical Exam BHS - Vital Signs Vital Signs: Vital Signs - 24 hr 11/05/17 10:28 Temperature 96.7 F L Pulse Rate 106 H Respiratory 18 Rate Blood Pressure 84/64 - Physical General Appearance: Yes: Nourished, Appropriately Dressed, Mild Distress, Intoxicated, Anxious HEENTM: Yes: Hearing grossly Normal, Normal ENT Inspection, Normal Voice Respiratory: Yes: Normal Breath Sounds, No Respiratory Distress Neck: Yes: No masses,lesions,Nodules, Supple Breast: Yes: Breast Exam Deferred Cardiology: Yes: Regular Rhythm, Tachycardia Abdominal: Yes: Flat Genitourinary: Yes: Frequency Back: Yes: Normal Inspection Musculoskeletal: Yes: full range of Motion, Gait Steady Extremities: Yes: Normal Inspection, Non-Tender, Other (mild puffiness of both hands 'from the liquor') Neurological: Yes: Fully Oriented, Alert, Normal Mood/Affect, Normal Response Integumentary: Yes: Normal Color, Warm Lymphatic: Yes: Within Normal Limits - Diagnostic (1) Hepatitis C Current Visit: Yes Status: Acute Qualifiers: Viral hepatitis chronicity: chronic Hepatic coma status: without hepatic coma Qualified Code(s): B18.2 - Chronic viral hepatitis C (2) Methadone maintenance therapy patient Current Visit: Yes Status: Acute Comment: [facility] methadone program (3) Alcohol dependence with uncomplicated withdrawal Current Visit: Yes Status: Acute (4) Tobacco dependence Current Visit: Yes Status: Chronic Cleared for Admission [facility] - Detox or Rehab [facility] Level of Care: Medically Managed Detox Regimen/Protocol: Librium [facility] Breath Alcohol Content Breath Alcohol Content: 0.240 Urine Pregancy Test - Result Urine Test Results: Negative- NO Line Present Urine Drug Screen - Results Drug Screen Negative: No Urine Drug Screen Results: BZO-Benzodiazepines, MTD-Methadone
[2017-11-05] MEDS ORDERED: P-EPHED 60MG/TRIPROLIDI 2.5MG TABLET PO PRN (11:05)
[2017-11-05] MEDS ORDERED: MAGNESIUM CITRATE 300 ML BOTTLE PO PRN (11:05)
[2017-11-05] MEDS ORDERED: MAG HYDROX/AL HYDROX/SIMETH 30 ML UNIT-DOSE CUP PO PRN (11:05)
[2017-11-05] MEDS ORDERED: LOPERAMIDE HCL 2 MG CAPSULE PO PRN (11:05)
[2017-11-05] MEDS ORDERED: guaiFENesin/D-METHORPHAN HB 10 ML UNIT-DOSE CUPS PO PRN (11:05)
[2017-11-05] MEDS ORDERED: MENTHOL/PHENOL 1 EACH UD MM PRN (11:05)
[2017-11-05] MEDS ORDERED: MAGNESIUM HYDROX 2400MG/30ML ORAL SUSPENSION 30 ML CUP PO PRN (11:05)
[2017-11-05] MEDS ORDERED: chlordiazePOXIDE HCL 25 MG CAPSULE PO PRN (11:05)
[2017-11-05] MEDS ORDERED: ACETAMINOPHEN 325 MG TABLET (FP) PO PRN (11:05)
[2017-11-05] MEDS ORDERED: IBUPROFEN 400 MG TABLET (FP) PO PRN (11:05)
[2017-11-05] MEDS ORDERED: chlordiazePOXIDE HCL 25 MG CAPSULE PO ONE (13:00)
[2017-11-05] MEDS: FLUTICASONE PROP 0.05% 16 GM NASAL SPRAY NS SCH (14:32)
[2017-11-05] MEDS: NICOTINE 21 MG/24 HOURS TOPICAL PATCH TD SCH (14:33)
[2017-11-05] MEDS: GABAPENTIN 100 MG CAPSULE (FP) PO SCH ×2 (14:36→22:30)
[2017-11-05] MEDS: hydrOXYzine PAMOATE 50 MG CAPSULE (FP) PO PRN (15:55)
--- NOTE | 2017-11-05 16:23 | PN ---
S Progress Note Note: called by nurse to evaluate patient post choking on arrival patient is alert,talking,comfortable,not in any distress history of choking,not witness by any staff bp 94/53,996,r18,t97.3 heent normal neck supple lung clear,no wheezing no abdominal pain no calf tenderness impression post choking victim history alcohol dependence with uncomplicated withdrawal mmtp anxiety and depression treatment close monitoring continue detox psychiatric evaluation
--- NOTE | 2017-11-05 17:06 | CONSULT ---
[facility] Psychiatric Consult - Data Date of interview: 11/05/17 Admission source: [facility] Identifying data: Readmission to [facility] for this 47 y/o female seeking detox treatment on for alcohol dependence.Patient is single,a mother of eleven,domiciled,unemployed and supported on welfare. Substance Abuse History: Discussed with patient in this session.Confirmed shane use of vodka.Details in current [facility] report : Smoking history: Current every day smoker. Have you smoked in the past 12 months: No. Aproximately how many cigarettes per day: 10. Cigars Per Day: 3. Hx Chewing Tobacco Use: No. Initiated information on smoking cessation: Yes. 'Breaking Loose' booklet given : 11/05/17 (give on floor). - Substance & Tx. History. Hx Alcohol Use: Yes. Hx Substance Use: Yes. Substance Use Type: Alcohol, Heroin. Hx Substance Use Treatment: Yes (detox, rehab, [facility]). - Substances Abused. Alcohol. Route: Oral. Frequency: Daily. Amount used: 1 gallon. Age of first use: 17. Date of Last Use: 11/05/17 Medical History: Hepatitis C. Psychiatric History: Patient admits to one psychiatric hospitalization at [facility].Reportedly diagnosed with Bipolar Disorder.Used to be followed at the [facility] OPD clinic.Ms Mao is currently on methadone maintenance (80 mg/day) at the [facility] program in [facility].Patient declares that she is on a regimen of seroquel,depakote and gabapentin (doses not recalled ).No recollection of date of most recent medication intake (most recent refills are dated 08/16/17 at [facility] : seroquel 300 mg po bid).Patient denies history of suicide attempts. Physical/Sexual Abuse/Trauma History: Not discussed in this session (patient declines). Additional Comment: Urine Drug Screen Results: BZO-Benzodiazepines, MTD- Methadone.Noted. Mental Status Exam - Mental Status Exam Alert and Oriented to: Time, Place, Person Cognitive Function: Grossly Intact Patient Appearance: Well Groomed Mood: Angry, Hostile (to staff), Nervous, Irritable Affect: Labile Patient Behavior: Inappropriate (as evidenced by her derogatory remarks toward a female staff), Fatigued Speech Pattern: Clear Voice Loudness: Normal Thought Process: Goal Oriented Thought Disorder: Not Present Hallucinations: Denies Suicidal Ideation: Denies Homicidal Ideation: Denies Insight/Judgement: Poor Sleep: Poorly, Difficulty falling asleep Appetite: Good Muscle strength/Tone: Normal (no complaint of weakness or rigidity) Gait/Station: Normal Psychiatric Findings - Problem List ([place] 1, 2,3) (1) Alcohol dependence with uncomplicated withdrawal Current Visit: Yes Status: Acute (2) Opioid dependence on agonist therapy Current Visit: Yes Status: Acute (3) Nicotine dependence Current Visit: Yes Status: Acute (4) Bipolar disorder Current Visit: Yes Status: Acute Comment: As per self-report.Known to [facility] clinic.Prescribed seroquel.Non-adherent to medications. (5) Insomnia Current Visit: Yes Status: Acute - Initial Treatment Plan Initial Treatment Plan: Old records reviewed.Psychoeducation provided.Detoxification in progress.Noted low BP on admission.Seroquel held until futher orders.Valproic acid level requested.Will follow.Monitor hospital course.
[2017-11-05] MEDS: chlordiazePOXIDE HCL 25 MG CAPSULE PO SCH ×2 (17:17→22:30)
[2017-11-05] MEDS: THIAMINE HCL 100 MG TABLET (FP) PO SCH (22:30)
[2017-11-06] MEDS: chlordiazePOXIDE HCL 25 MG CAPSULE PO SCH ×2 (05:48→10:46)
[2017-11-06] MEDS: GABAPENTIN 100 MG CAPSULE (FP) PO SCH ×3 (05:48→22:21)
[2017-11-06] MEDS: METHADONE HCL 40 MG DISPERSABLE TABLET PO SCH (05:48)
[2017-11-06] MEDS ORDERED: METHADONE HCL 40 MG DISPERSABLE TABLET PO SCH (06:00)
[2017-11-06 10:24] LABS: CHLORIDE 108 mmol/L (98-107); SODIUM 141 mmol/L (136-145)
[2017-11-06 10:30] LABS: ALBUMIN 3.7 g/dl (3.4-5.0); ALK PHOS 97 U/L (45-117); ANION GAP 7 (8-16); BILIRUBIN,TOTAL 0.6 mg/dL (0.2-1.0); BLOOD UREA NITROGEN 6 mg/dL (7-18); CO2 26 mmol/L (21-32); CREATININE 0.7 mg/dL (0.55-1.02); GLUCOSE,RANDOM 93 mg/dL (74-106); SGOT/AST 35 U/L (15-37); SGPT/ALT 37 U/L (12-78); TOT PROT 7.3 g/dl (6.4-8.2)
[2017-11-06] MEDS: PRENATAL VITAMINS W/ FOLIC ACID TABLET (FP) PO SCH (10:46)
[2017-11-06] MEDS: FLUTICASONE PROP 0.05% 16 GM NASAL SPRAY NS SCH (10:47)
[2017-11-06] MEDS: NICOTINE 21 MG/24 HOURS TOPICAL PATCH TD SCH (10:50)
[2017-11-06 11:21] LABS: HEMATOCRIT 44.5 % (32.4-45.2); HEMOGLOBIN 14.8 GM/dL (10.7-15.3); MCH 33.8 pg (25.7-33.7); MCHC 33.2 g/dl (32.0-36.0); MEAN CELL VOLUME 101.7 fl (80-96); MEAN PLT VOLUME 13.8 fl (7.5-11.1); RBC 4.38 M/mm3 (3.60-5.2); RDW 13.8 % (11.6-15.6); WHITE BLOOD COUNT 9.8 K/mm3 (4.0-10.0)
--- NOTE | 2017-11-06 11:39 | EKG ---
Test Reason : Blood Pressure : / mmHG Vent. Rate : 090 BPM Atrial Rate : 090 BPM P-R Int : 130 ms QRS Dur : 074 ms QT Int : 398 ms P-R-T Axes : 050 046 057 degrees QTc Int : 486 ms NORMAL SINUS RHYTHM POSSIBLE ANTERIOR INFARCT , AGE UNDETERMINED ABNORMAL ECG WHEN COMPARED WITH ECG OF 02-NOV-2017 10:13, T WAVE INVERSION NO LONGER EVIDENT IN ANTERIOR LEADS Confirmed by MANA SÁNCHEZ, KELLY ([id number]) on 11/06/2017 11:39:28 AM Referred By: Confirmed By:EKLLY ADAIR MD
[2017-11-06 11:58] LABS: PLATELET COUNT 48 K/MM3 (134-434)
--- NOTE | 2017-11-06 13:38 | PN ---
S CIWA - CIWA Score Nausea/Vomitin-Mild Nausea/No Vomiting Muscle Tremors: 3 Anxiety: 3 Agitation: 3 Paroxysmal Sweats: 1-Minimal Palms Moist Orientation: 0-Oriented Tacttile Disturbances: 0-None Auditory Disturbances: 0-None Visual Disturbances: 0-None Headache: 0-None Present CIWA-Ar Total Score: 11 S Progress Note (SOAP) Subjective: sweating tremor irritable agitation Objective: 11/06/17 13:38 Vital Signs Temperature 97.9 F 11/06/17 10:00 Pulse Rate 85 11/06/17 10:00 Respiratory Rate 18 11/06/17 10:00 Blood Pressure 96/68 11/06/17 10:00 O2 Sat by Pulse Oximetry (%) Laboratory Last Values WBC 9.8 K/mm3 (4.0-10.0) D 11/06/17 07:40 RBC 4.38 M/mm3 (3.60-5.2) 11/06/17 07:40 Hgb 14.8 GM/dL (10.7-15.3) 11/06/17 07:40 Hct 44.5 % (32.4-45.2) 11/06/17 07:40 MCV 101.7 fl (80-96) H 11/06/17 07:40 MCH 33.8 pg (25.7-33.7) H 11/06/17 07:40 MCHC 33.2 g/dl (32.0-36.0) 11/06/17 07:40 RDW 13.8 % (11.6-15.6) 11/06/17 07:40 Plt Count 48 K/MM3 (134-434) L D 11/06/17 07:40 MPV 13.8 fl (7.5-11.1) H D 11/06/17 07:40 Platelet Comment No clumping noted 11/06/17 07:40 Sodium 141 mmol/L (136-145) 11/06/17 07:40 Potassium 4.0 mmol/L (3.5-5.1) 11/06/17 07:40 Chloride 108 mmol/L (98-107) H 11/06/17 07:40 Carbon Dioxide 26 mmol/L (21-32) 11/06/17 07:40 Anion Gap 7 (8-16) L 11/06/17 07:40 BUN 6 mg/dL (7-18) L D 11/06/17 07:40 Creatinine 0.7 mg/dL (0.55-1.02) 11/06/17 07:40 Creat Clearance w eGFR > 60 (>60) 11/06/17 07:40 Random Glucose 93 mg/dL (74-106) 11/06/17 07:40 Calcium 9.0 mg/dL (8.5-10.1) 11/06/17 07:40 Total Bilirubin 0.6 mg/dL (0.2-1.0) D 11/06/17 07:40 AST 35 U/L (15-37) 11/06/17 07:40 ALT 37 U/L (12-78) 11/06/17 07:40 Alkaline Phosphatase 97 U/L (45-117) 11/06/17 07:40 Total Protein 7.3 g/dl (6.4-8.2) 11/06/17 07:40 Albumin 3.7 g/dl (3.4-5.0) 11/06/17 07:40 Valproic Acid 42.579 ug/ml (50-100) L 11/06/17 07:40 RPR Titer Nonreactive (NONREACTIVE) 11/06/17 07:40 HIV 1&2 Antibody Screen Negative 11/06/17 07:40 HIV P24 Antigen Negative 11/06/17 07:40 lab noted Assessment: 11/06/17 13:38 withdrawal sx Plan: continue detox
[2017-11-06] MEDS: chlordiazePOXIDE 5 MG CAPSULE PO SCH ×2 (17:49→22:21)
[2017-11-06] MEDS ORDERED: MINERAL OIL/PETROLAT/WATER TOPICAL CREAM 113 GM JAR TP SCH (22:00)
[2017-11-06] MEDS: THIAMINE HCL 100 MG TABLET (FP) PO SCH (22:21)
[2017-11-06] MEDS: hydrOXYzine PAMOATE 50 MG CAPSULE (FP) PO PRN (22:23)
[2017-11-07] MEDS: chlordiazePOXIDE 5 MG CAPSULE PO SCH ×2 (05:47→10:31)
[2017-11-07] MEDS: GABAPENTIN 100 MG CAPSULE (FP) PO SCH ×3 (05:47→22:06)
[2017-11-07] MEDS: METHADONE HCL 40 MG DISPERSABLE TABLET PO SCH (05:47)
--- NOTE | 2017-11-07 08:16 | PN ---
Psychiatric Progress Note Vital Signs: Vital Signs Period Temp Pulse Resp BP Sys/Moore Pulse Ox Last 24 Hr 97.5 F-98.1 F 73-93 16-20 96-142/57-74 Date of Session: 11/07/17 Chief Complaint:: Irritability,m agitations, anxiety HPI: Patient reportsd history of Bipolar disorder, reports being stable on: Seroquel 300 mg po bid. Depakote 250 mg po bid. Trazodone 50 mg demetrice qhs Current Medications: Active Medications Generic Name Dose Route Start Last Admin Trade Name Freq PRN Reason Stop Dose Admin Acetaminophen 650 mg 11/05/17 11:05 Tylenol - PO Q4H PRN FEVER OR PAIN Al Hydroxide/Mg Hydroxide 30 ml 11/05/17 11:05 Mylanta Oral Suspension - PO Q6H PRN DYSPEPSIA Chlordiazepoxide HCl 15 mg 11/06/17 17:00 11/07/17 05:47 Librium - PO 11/07/17 11:01 15 mg [id number] GONZALEZ Administration Chlordiazepoxide HCl 25 mg 11/05/17 11:05 11/05/17 15:55 Librium - PO 11/07/17 11:04 25 mg Q4H PRN Administration WITHDRAWAL(CONT SUBST) Chlordiazepoxide HCl 10 mg 11/07/17 17:00 Librium - PO 11/08/17 11:01 [id number] GONZALEZ Eucalyptus/Menthol/Phenol/Sorbitol 1 each 11/05/17 11:05 Cepastat Lozenge - MM Q4H PRN SORE THROAT Fluticasone Propionate 1 spray 11/05/17 11:15 11/06/17 10:47 Flonase - NS 1 spray DAILY GONZALEZ Administration Gabapentin 100 mg 11/05/17 14:00 11/07/17 05:47 Neurontin - PO 100 mg TID GONZALEZ Administration Guaifenesin 10 ml 11/05/17 11:05 Robitussin Dm - PO Q6H PRN COUGH Hydroxyzine Pamoate 50 mg 11/05/17 11:05 11/06/17 22:23 Vistaril - PO 50 mg Q4H PRN Administration AGITATION Ibuprofen 400 mg 11/05/17 11:05 Motrin - PO Q6H PRN SEVERE PAIN Loperamide HCl 4 mg 11/05/17 11:05 Imodium - PO Q6H PRN DIARRHEA Magnesium Citrate 300 ml 11/05/17 11:05 Citroma - PO Q48H PRN CONSTIPATION Magnesium Hydroxide 30 ml 11/05/17 11:05 Milk Of Magnesia - PO DAILY PRN CONSTIPATION Methadone HCl 80 mg 11/06/17 06:00 11/07/17 05:47 Dolophine - PO 80 mg DAILY@0600 GONZALEZ Administration Multi-Ingredient Lotion 1 applic 11/06/17 22:00 11/06/17 23:00 Eucerin (Small Jar) - TP Not Given HS GONZALEZ Nicotine 21 mg 11/05/17 11:15 11/06/17 10:50 Nicoderm Patch - TD Not Given DAILY [facility] Multivit/Folic Acid/Iron 1 tab 11/06/17 10:00 11/06/17 10:46 Vitamins (Sjr) - PO 1 tab DAILY GONZALEZ Administration Pseudoephedrine/Triprolidine 1 combo 11/05/17 11:05 Actifed - PO TID PRN NASAL CONGESTION Thiamine HCl 100 mg 11/05/17 22:00 11/06/17 22:21 Vitamin B1 - PO 100 mg HS GONZALEZ Administration Mental Status Exam - Mental Status Exam Alert and Oriented to: Person Cognitive Function: Fair Patient Appearance: Unkempt Mood: Suspicious, Anxious, Irritable Affect: Labile Patient Behavior: Talkative, Cooperative Speech Pattern: Excessive Voice Loudness: Mildly Loud Thought Process: Circumstantial Thought Disorder: Being Controlled Hallucinations: Denies Suicidal Ideation: Denies Homicidal Ideation: Denies Insight/Judgement: Fair Sleep: Difficulty falling asleep Appetite: Weight loss Muscle strength/Tone: Normal Gait/Station: Normal Additional Comments: Seroquel 300 mg po bid. Depakote 250 mg po bid. Trazodone 50 mg demetrice qhs Psychiatric Treatment Plan - Problem List (1) Alcohol dependence with uncomplicated withdrawal Current Visit: Yes (2) Bipolar disorder Current Visit: Yes Comment: As per self-report.Known to [facility] clinic.Prescribed seroquel.Non-adherent to medications. (3) Methadone maintenance therapy patient Current Visit: Yes Comment: [facility] program (4) Nicotine dependence Current Visit: Yes (5) Opioid dependence on agonist therapy Current Visit: Yes (6) Tobacco dependence Current Visit: Yes (7) Alcohol withdrawal Current Visit: No Qualifiers: Complication of substance-induced condition: uncomplicated Qualified Code(s ): F10.230 - Alcohol dependence with withdrawal, uncomplicated Initial treatment plan: Seroquel 300 mg po bid. Depakote 250 mg po bid. Trazodone 50 mg demetrice qhs
[2017-11-07] MEDS ORDERED: CYCLOBENZAPRINE HCL 10 MG TABLET (FP) PO PRN (08:51)
--- NOTE | 2017-11-07 09:33 | PN ---
[facility] CIWA - CIWA Score Nausea/Vomitin-No Nausea/No Vomiting Muscle Tremors: 3 Anxiety: 3 Agitation: 3 Paroxysmal Sweats: 2 Orientation: 0-Oriented Tacttile Disturbances: 0-None Auditory Disturbances: 0-None Visual Disturbances: 0-None Headache: 0-None Present CIWA-Ar Total Score: 11 S Progress Note (SOAP) Subjective: agitation anxiety sweats muscle cramping irritable Objective: 11/07/17 09:32 Vital Signs Temperature 97.5 F L 11/07/17 07:04 Pulse Rate 93 H 11/07/17 07:04 Respiratory Rate 18 11/07/17 07:04 Blood Pressure 142/74 11/07/17 07:04 O2 Sat by Pulse Oximetry (%) Laboratory Tests 11/06/17 11/06/17 11/06/17 07:40 07:40 07:40 WBC 9.8 D RBC 4.38 Hgb 14.8 Hct 44.5 MCV 101.7 H MCH 33.8 H MCHC 33.2 RDW 13.8 Plt Count 48 L D MPV 13.8 H D Platelet Comment No clumping noted Sodium 141 Potassium 4.0 Chloride 108 H Carbon Dioxide 26 Anion Gap 7 L BUN 6 L D Creatinine 0.7 Creat Clearance w eGFR > 60 Random Glucose 93 Calcium 9.0 Total Bilirubin 0.6 D AST 35 ALT 37 Alkaline Phosphatase 97 Total Protein 7.3 Albumin 3.7 Valproic Acid RPR Titer HIV 1&2 Antibody Screen Negative HIV P24 Antigen Negative 11/06/17 11/06/17 07:40 07:40 WBC RBC Hgb Hct MCV MCH MCHC RDW Plt Count MPV Platelet Comment Sodium Potassium Chloride Carbon Dioxide Anion Gap BUN Creatinine Creat Clearance w eGFR Random Glucose Calcium Total Bilirubin AST ALT Alkaline Phosphatase Total Protein Albumin Valproic Acid 42.579 L RPR Titer Nonreactive HIV 1&2 Antibody Screen HIV P24 Antigen aaox3 ambulating no acute distress Assessment: 11/07/17 09:33 withdrawal sx Plan: continue detox increase fluids flexiril prn
[2017-11-07 10:05] LABS: URINE APPEARANCE SLCLOUDY; URINE BILIRUBIN NEGATIVE (NEGATIVE); URINE BLOOD NEGATIVE (NEGATIVE); URINE COLOR LTYELLOW; URINE GLUCOSE (UA) NEGATIVE (NEGATIVE); URINE KETONE NEGATIVE (NEGATIVE); URINE LEUK ESTERASE NEGATIVE (NEGATIVE); URINE NITRITE NEGATIVE (NEGATIVE); URINE PROTEIN NEGATIVE (NEGATIVE); URINE UROBILINOGEN NEGATIVE mg/dL (0.2-1.0)
[2017-11-07 10:12] LABS: ALBUMIN 3.3 g/dl (3.4-5.0); ANION GAP 5 (8-16); BLOOD UREA NITROGEN 9 mg/dL (7-18); CALCIUM 8.6 mg/dL (8.5-10.1); CHLORIDE 100 mmol/L (98-107); CO2 30 mmol/L (21-32); GLUCOSE,RANDOM 80 mg/dL (74-106); SODIUM 135 mmol/L (136-145)
[2017-11-07 10:15] LABS: ALK PHOS 90 U/L (45-117); BILIRUBIN,TOTAL 0.4 mg/dL (0.2-1.0); CREATININE 0.6 mg/dL (0.55-1.02); SGOT/AST 37 U/L (15-37); SGPT/ALT 39 U/L (12-78); TOT PROT 6.7 g/dl (6.4-8.2)
[2017-11-07] MEDS: DIVALPROEX SODIUM 250 MG TABLET E.C. (FP) PO SCH ×2 (10:30→22:04)
[2017-11-07] MEDS: PRENATAL VITAMINS W/ FOLIC ACID TABLET (FP) PO SCH (10:30)
[2017-11-07] MEDS: QUEtiapine FUMARATE 300 MG TABLET PO SCH ×2 (10:30→22:07)
[2017-11-07] MEDS: FLUTICASONE PROP 0.05% 16 GM NASAL SPRAY NS SCH (10:32)
[2017-11-07] MEDS: BACITRACIN 0.9 GM PACKET TP SCH ×2 (10:32→22:04)
[2017-11-07] MEDS: NICOTINE 21 MG/24 HOURS TOPICAL PATCH TD SCH (10:32)
--- NOTE | 2017-11-07 10:51 | PN ---
[facility] Progress Note (SOAP) Subjective: dry cracked heels both feet with open cut sweats agitation Objective: 11/07/17 10:51 Vital Signs Temperature 97.5 F L 11/07/17 07:04 Pulse Rate 93 H 11/07/17 07:04 Respiratory Rate 18 11/07/17 07:04 Blood Pressure 142/74 11/07/17 07:04 O2 Sat by Pulse Oximetry (%) aaox3 ambulating no acute distress Assessment: 11/07/17 10:52 mild withdrawal sx Plan: continue detox increase fluids eurcerin tid prn bacitracin oint for open cut to crack feet no s/s of infection , no bleeding, no redness d/c in am
[2017-11-07] MEDS: MINERAL OIL/PETROLAT/WATER TOPICAL CREAM 113 GM JAR TP PRN ×2 (15:29→22:06)
[2017-11-07] MEDS: chlordiazePOXIDE HCL 10 MG CAPSULE PO SCH ×2 (17:06→22:06)
[2017-11-07] MEDS ORDERED: diphenhydrAMINE HCL 50 MG CAPSULE PO SCH (22:00)
[2017-11-07] MEDS ORDERED: traZODone HCL 50 MG TABLET (FP) PO SCH (22:00)
[2017-11-07] MEDS: THIAMINE HCL 100 MG TABLET (FP) PO SCH (22:07)
[2017-11-08] MEDS: METHADONE HCL 40 MG DISPERSABLE TABLET PO SCH (05:26)
[2017-11-08] MEDS: chlordiazePOXIDE HCL 10 MG CAPSULE PO SCH (05:28)
[2017-11-08] MEDS: GABAPENTIN 100 MG CAPSULE (FP) PO SCH (05:28)
[2017-11-08 06:33] VITALS: BP 108/64; PULSE 93; TEMP 98.6
[2017-11-08] MEDS: hydrOXYzine PAMOATE 50 MG CAPSULE (FP) PO PRN (07:22)
--- NOTE | 2017-11-08 08:36 | DS ---
[facility] Detox Discharge Summary Admission Date: 11/05/17 Discharge Date: 11/08/17 - History Present History: Alcohol Dependence, MMTP - Physical Exam Results Vital Signs: Vital Signs Temperature 98.6 F 11/08/17 06:00 Pulse Rate 93 H 11/08/17 06:00 Respiratory Rate 18 11/08/17 06:00 Blood Pressure 108/64 11/08/17 06:00 O2 Sat by Pulse Oximetry (%) - Treatment Hospital Course: Detox Protocol Followed, Detoxed Safely, Responded well, Discharged Condition Good, Rehab Referral Accepted - Medication Discharge Medications: Ambulatory Orders Hypromellose 0.5% Opth Soln [Artificial Tears] 1 drop AU DAILY 07/18/17 Docusate Sodium [Colace -] 100 mg PO DAILY PRN #30 cap 07/19/17 Fluticasone Prop 0.05% Nasal [Flonase -] 1 spray NS DAILY #1 bottle 07/19/17 Folic Acid 1 mg PO DAILY #30 tablet 07/19/17 Gabapentin 100 mg PO TID #90 capsule 07/19/17 Quetiapine Fumarate [Seroquel] 300 mg PO BID #60 tablet 07/19/17 Thiamine HCl [Vitamin B1 -] 1 tab PO DAILY #30 tablet 07/19/17 Methadone [Dolophine -] 80 mg PO DAILY@0600 tablet MDD 1 09/26/17 Pantoprazole Sodium [Protonix -] 40 mg PO DAILY #30 tablet.ec 09/26/17 Cyclobenzaprine HCl [Flexeril -] 5 mg PO TID tablet 11/04/17 Zolpidem Tartrate [Ambien] 10 mg PO HS PRN tablet MDD 1 11/04/17 Diphenhydramine [Benadryl Capsule -] 50 mg PO BID #60 capsule 11/07/17 Divalproex [Depakote -] 250 mg PO BID #60 tab.ec 11/07/17 Quetiapine Fumarate [Seroquel -] 300 mg PO BID #60 tablet 11/07/17 Trazodone HCl [Desyrel -] 50 mg PO HS #30 tablet 11/07/17 - Diagnosis (1) Alcohol dependence with uncomplicated withdrawal Current Visit: Yes Status: Chronic (2) Bipolar disorder Current Visit: Yes Status: Acute (3) Hepatitis C Current Visit: Yes Status: Acute Qualifiers: Viral hepatitis chronicity: chronic Hepatic coma status: without hepatic coma Qualified Code(s): B18.2 - Chronic viral hepatitis C (4) Insomnia Current Visit: Yes Status: Acute (5) Methadone maintenance therapy patient Current Visit: Yes Status: Chronic (6) Nicotine dependence Current Visit: Yes Status: Chronic Qualifiers: Nicotine product type: cigarettes Substance use status: uncomplicated Qualified Code(s): F17.210 - Nicotine dependence, cigarettes, uncomplicated (7) Bipolar II disorder Current Visit: No Status: Acute - AMA Did Patient Leave Against Medical Advice: No
[2017-11-08] MEDS: DIVALPROEX SODIUM 250 MG TABLET E.C. (FP) PO SCH (08:59)
[2017-11-08] MEDS: QUEtiapine FUMARATE 300 MG TABLET PO SCH (08:59)
[2017-11-08] MEDS: BACITRACIN 0.9 GM PACKET TP SCH (08:59)
[2017-11-08] MEDS: PRENATAL VITAMINS W/ FOLIC ACID TABLET (FP) PO SCH (09:00)
== END 2017-11-08 09:10 | disposition home or self-care (01) | DRG 773 ==
LOC: YASAS 09:29 → Y6N 11:34
PROVIDERS: ADMIT Internal Medicine; ATTEND Internal Medicine
PROC: HZ2ZZZZ Detoxification Services for Substance Abuse Treatment (ICD-10-PCS; principal; 2017-11-05)
DX: F11.20 Opioid dependence, uncomplicated (principal); F10.230 Alcohol dependence with withdrawal, uncomplicated; F17.210 Nicotine dependence, cigarettes, uncomplicated; F31.89 Other bipolar disorder; F31.81 Bipolar II disorder; B18.2 Chronic viral hepatitis C; G47.00 Insomnia, unspecified
CPT/HCPCS: 36415; 80053; 80164; 81003; 85027; 86593; 87389; 93005; 93010

== ENCOUNTER 2017-11-10 15:45 | Inpatient (IN) | payer OTHER ==
[2017-11-10 17:01] VITALS: BMI 27.3
--- NOTE | 2017-11-10 19:23 | HP ---
Admission ROS [facility] Allergies/Adverse Reactions: Allergies Allergy/AdvReac Type Severity Reaction Status Date / Time metoclopramide HCl Allergy Severe Verified 11/10/17 18:17 [From Reglan] ondansetron Allergy Severe Verified 11/10/17 18:17 [From Zofran (as hydrochloride)] prochlorperazine maleate Allergy Severe DYSTONIA Verified 11/10/17 18:16 [From Compazine] Exam Limitations: No Limitations - Ebola screening Have you traveled outside of the country in the last 21 days: No Have you had contact with anyone from an Ebola affected area: No Have you been sick,other than usual withdrawal symptoms: No Do you have a fever: No - Review of Systems Constitutional: Weight Stable EENT: reports: Blurred Vision (eye glasses) Respiratory: reports: SOB with Exertion Cardiac: reports: No Symptoms Reported GI: reports: No Symptoms Reported : reports: No Symptoms Reported Musculoskeletal: reports: No Symptoms Reported Integumentary: reports: No Symptoms Reported Neuro: reports: No Symptoms reported Endocrine: reports: No Symptoms Reported Hematology: reports: No Symptoms Reported Psychiatric: reports: Judgement Intact, Orientated x3, Anxious, Depressed Other Systems: Reviewed and Negative Patient History - Patient Medical History Hx Anemia: No Hx Asthma: No Hx Chronic Obstructive Pulmonary Disease (COPD): No Hx Cancer: No Hx Cardiac Disorders: No Hx Congestive Heart Failure: No Hx Hypertension: No Hx Hypercholesterolemia: No Hx Pacemaker: No HX Cerebrovascular Accident: No Hx Seizures: Yes (unsure) Hx Dementia: No Hx Diabetes: No Hx Gastrointestinal Disorders: No Hx Liver Disease: Yes (HEP C) Hx Genitourinary Disorders: No Hx Sexually Transmitted Disorders: No (DENIES) Hx Renal Disease (ESRD): No Hx Thyroid Disease: No Hx Human Immunodeficiency Virus (HIV): No Hx Hepatitis C: Yes (no treated) Hx Depression: No Hx Suicide Attempt: No Hx Bipolar Disorder: Yes (dipti leb hospilalized 2011 for two months) Hx Schizophrenia: No - Patient Surgical History Past Surgical History: Yes Hx Neurologic Surgery: No Hx Cataract Extraction: No Hx Cardiac Surgery: No Hx Lung Surgery: No Hx Breast Surgery: No Hx Breast Biopsy: No Hx Abdominal Surgery: No Hx Appendectomy: No Hx Cholecystectomy: No Hx Genitourinary Surgery: No Hx Section: Yes Hx Orthopedic Surgery: No Hx Hysterectomy: No Other Surgical History: age 9 - abscess/tumor, benign per pt Anesthesia Reaction: No - PPD History Previous Implant?: Yes Documented Results: Negative w/proof Implanted On Prior [facility] Admission?: Yes Date: 11/07/17 PPD to be Administered?: No - Reproductive History Patient is a Female of Child Bearing Age (11 -55 yrs old): Yes Last Menstrual Period: 10/10/17 Patient : No - Smoking Cessation Smoking history: Current every day smoker Have you smoked in the past 12 months: No Aproximately how many cigarettes per day: 4 Cigars Per Day: 0 Hx Chewing Tobacco Use: No Initiated information on smoking cessation: Yes 'Breaking Loose' booklet given: 11/10/17 - Substance & Tx. History Hx Alcohol Use: Yes Hx Substance Use: Yes Substance Use Type: Marijuana Hx Substance Use Treatment: Yes (10/2017) - Substances Abused Alcohol Route: Oral Frequency: Daily Amount used: 1/2 G vodka Age of first use: 17 Date of Last Use: 11/10/17 Family Disease History - Family Disease History Family Disease History: Diabetes: Grandparent (mgm - dm, htn), Other: Father ( CVA), Mother (alive, well), Brother ( AIDS), Sister ( THROAT CA) Admission Physical Exam [facility] - Vital Signs Vital Signs: Vital Signs - 24 hr 11/10/17 16:58 Temperature 97.9 F Pulse Rate 110 H Respiratory 18 Rate Blood Pressure 130/100 - Physical General Appearance: Yes: No Apparent Distress, Nourished, Appropriately Dressed , Other (patient had alcohol drink later today patient did not have gerd medication x 2 days reports gi distress able to tolerate fluid well) HEENTM: Yes: Hearing grossly Normal, Normal ENT Inspection, Normocephalic, Normal Voice, Other (eye glasses) Respiratory: Yes: Chest Non-Tender, Lungs Clear, Normal Breath Sounds, No Respiratory Distress, No Accessory Muscle Use Neck: Yes: Supple, Trachea in good position Breast: Yes: Breasts Symetrical Cardiology: Yes: Regular Rhythm, S1, S2, Tachycardia Abdominal: Yes: Non Tender, Soft, Decreased BS Genitourinary: Yes: Within Normal Limits Back: Yes: Normal Inspection Musculoskeletal: Yes: full range of Motion, Gait Steady Extremities: Yes: Normal Inspection, Normal Range of Motion, Non-Tender Neurological: Yes: Fully Oriented, Alert, Motor Strength 5/5, Normal Response, Depressed Affect (had verbal altercation with mother patient is tearful and sorry about the event) Integumentary: Yes: Warm Lymphatic: Yes: Within Normal Limits - Diagnostic (1) Hypertension Current Visit: Yes Status: Chronic Qualifiers: Hypertension type: essential hypertension Qualified Code(s): I10 - Essential (primary) hypertension (2) GERD (gastroesophageal reflux disease) Current Visit: Yes Status: Chronic Qualifiers: Esophagitis presence: without esophagitis Qualified Code(s): K21.9 - Gastro -esophageal reflux disease without esophagitis (3) Bipolar II disorder Current Visit: Yes Status: Suspected (4) Hepatitis C Current Visit: Yes Status: Resolved Qualifiers: Viral hepatitis chronicity: chronic Hepatic coma status: without hepatic coma Qualified Code(s): B18.2 - Chronic viral hepatitis C (5) Alcohol dependence with uncomplicated withdrawal Current Visit: Yes Status: Acute (6) Methadone maintenance therapy patient Current Visit: Yes Status: Chronic Comment: [facility] methadone program 80 mg po daily verification pending (7) Nicotine dependence Current Visit: Yes Status: Acute Qualifiers: Nicotine product type: cigarettes Substance use status: in withdrawal Qualified Code(s): F17.213 - Nicotine dependence, cigarettes, with withdrawal Cleared for Admission [facility] - Detox or Rehab [facility] Level of Care: Observation Bed Detox Regimen/Protocol: Not Applicable Claeared for Rehab Admission: Yes [facility] Breath Alcohol Content Breath Alcohol Content: 0.166 Urine Pregancy Test - Result Urine Test Results: Negative- NO Line Present Urine Drug Screen - Results Drug Screen Negative: No Urine Drug Screen Results: THC-Marijuana, BZO-Benzodiazepines, MTD-Methadone, TCA-Tricyclic Antidepress Inpatient Rehab Admission - Initial Determination Are CD services needed?: Yes Free of communicable disease: Yes Not in need of hospitalization: Yes - Rehab Admission Criteria Previous failed treatment: Yes Poor recovery environment: Yes Comorbidities: Yes Lacks judgement: No Patient is meeting Inpatient Rehab admission criteria:: Yes
[2017-11-10] MEDS ORDERED: MAGNESIUM CITRATE 300 ML BOTTLE PO PRN (19:25)
[2017-11-10] MEDS ORDERED: MAG HYDROX/AL HYDROX/SIMETH 30 ML UNIT-DOSE CUP PO PRN (19:25)
[2017-11-10] MEDS ORDERED: NICOTINE POLACRILEX 2 MG GUM BUC PRN (19:25)
[2017-11-10] MEDS ORDERED: MENTHOL/PHENOL 1 EACH UD MM PRN (19:25)
[2017-11-10] MEDS ORDERED: ACETAMINOPHEN 325 MG TABLET (FP) PO PRN (19:25)
[2017-11-10] MEDS ORDERED: MAGNESIUM HYDROX 2400MG/30ML ORAL SUSPENSION 30 ML CUP PO PRN (19:25)
[2017-11-10] MEDS ORDERED: LOPERAMIDE HCL 2 MG CAPSULE PO PRN (19:25)
[2017-11-10] MEDS ORDERED: guaiFENesin/D-METHORPHAN HB 10 ML UNIT-DOSE CUPS PO PRN (19:25)
[2017-11-10] MEDS ORDERED: P-EPHED 60MG/TRIPROLIDI 2.5MG TABLET PO PRN (19:25)
[2017-11-10] MEDS ORDERED: ONDANSETRON *ODT* 4 MG TABLET SL ONE (19:29)
[2017-11-10] MEDS ORDERED: ALBUTEROL SO4 18 GM HFA INHALER IH PRN (19:35)
[2017-11-10] MEDS ORDERED: DOCUSATE SODIUM 100 MG CAPSULE (FP) PO PRN (19:36)
[2017-11-10] MEDS ORDERED: GABAPENTIN 100 MG CAPSULE (FP) PO SCH (22:00)
[2017-11-10] MEDS ORDERED: THIAMINE HCL 100 MG TABLET (FP) PO SCH (22:00)
[2017-11-10] MEDS ORDERED: RANITIDINE HCL 150 MG TABLET (FP) PO SCH (22:00)
--- NOTE | 2017-11-11 00:32 | PN ---
[facility] Progress Note Note: INFORMED CLIENT FELL IN SHOWER. CLIENT IS INTOXICATED, BELLIGERENT, UNCOOPERATIVE AND UNRECEPTIVE TO EXAM. STATES SLIPPED FELL IN SHOWER ON HER BACK. DENIES HEAD TRAUMA. C/O BACK PAIN. " I WANT YOU TO KRISTA 911" CLIENT NOTED AMBULATING ON UNIT HUNCHED OVER. BACK NOTED WITH REDNESS TO L-SPINE AREA EXTENDING FROM RIGHT TO LEFT LOWER BACK SKIN INTACT VS 98, P 104, RR 20 BP 94/58 REFUSED MARIAH P- FALL PROTOCOL #2 TRANSFER TO [facility] ER FOR EVAL REPORT GIVEN TO
--- NOTE | 2017-11-11 01:23 | PN ---
[facility] Progress Note Note: Psychiatry Attending's economic analysis director note : Informed of a crisis in progress. Shortly after the admission of this patient to [facility] [place]. Ms Mao reportedly fell while taking a shower (nurse report). Mail Courier is called because patient refused medical assistance. Wants to leave the institution against medical advice (after incident). According to nurse on duty,patient is " intoxicated and belligerent." Psychiatrist-economic analysis director,this travel writer,attempted to speak with patient via telephone. She REFUSED.Patient is overheard arguing,shouting and threatening to walk off the unit. Intervention : . Constant observation (1:1) for safety. . Discharge AMA denied. . EMS services activated (911). . Olivia COELLO contacted for assistance. . Transfer to [facility] for medical evaluation. Mail Courier is made aware,at time of this report,of the presence of [employer]/EMS personnel at [facility] for immediate transport of the patient to the medical ED at [facility].Discussed with nursing staff on duty at [facility] [place]. Coverage note by medical CONTRACT RECRUITER Kavon : appreciated.
[2017-11-11 02:35] VITALS: BP 94/58; PULSE 104; TEMP 98
[2017-11-11] MEDS ORDERED: NICOTINE 14 MG/24 HOURS TOPICAL PATCH TD SCH (10:00)
[2017-11-11] MEDS ORDERED: PRENATAL VITAMINS W/ FOLIC ACID TABLET (FP) PO SCH (10:00)
== END 2017-11-11 01:30 | disposition left against medical advice (07) | DRG 770 ==
LOC: YASAS 15:45 → Y3E 17:52
PROVIDERS: ADMIT Psychiatry & Neurology Psychiatry; ATTEND Psychiatry & Neurology Psychiatry
PROC: HZ42ZZZ Group Counseling for Substance Abuse Treatment, Cognitive-Behavioral (ICD-10-PCS; principal; 2017-11-10)
DX: F11.20 Opioid dependence, uncomplicated (principal); F10.230 Alcohol dependence with withdrawal, uncomplicated; F17.213 Nicotine dependence, cigarettes, with withdrawal; F31.81 Bipolar II disorder; I10 Essential (primary) hypertension; K21.9 Gastro-esophageal reflux disease without esophagitis; B18.2 Chronic viral hepatitis C

== ENCOUNTER 2017-12-02 11:44 | Emergency (ER) | payer OTHER ==
[2017-12-02 12:03] VITALS: BP 154/66; PULSE 95; TEMP 98.4; BMI 27.9
--- NOTE | 2017-12-02 12:34 | PDOC ---
History of Present Illness - General Chief Complaint: Sore Throat Stated Complaint: SORE THROAT, FALL Time Seen by Provider: 12/02/17 12:05 History Source: Patient Exam Limitations: No Limitations - History of Present Illness Initial Comments: 12/02/17 12:30 47 yr female with c/o sore throat and right knee pain after she tripped and fell outside the hospital. Pt has sore throat for 3 days. no fever no chills. no vomiting or diarrhea. Severity: mild Past History - Past Medical History Allergies/Adverse Reactions: Allergies Allergy/AdvReac Type Severity Reaction Status Date / Time metoclopramide HCl Allergy Severe Verified 12/02/17 11:59 [From Reglan] ondansetron Allergy Severe Verified 12/02/17 11:59 [From Zofran (as hydrochloride)] prochlorperazine maleate Allergy Severe DYSTONIA Verified 12/02/17 11:59 [From Compazine] Home Medications: Ambulatory Orders Hypromellose 0.5% Opth Soln [Artificial Tears] 1 drop AU DAILY 07/18/17 Fluticasone Prop 0.05% Nasal [Flonase -] 1 spray NS DAILY #1 bottle 07/19/17 Gabapentin 100 mg PO TID #90 capsule 07/19/17 Quetiapine Fumarate [Seroquel] 300 mg PO BID #60 tablet 07/19/17 Methadone [Dolophine -] 80 mg PO DAILY@0600 tablet MDD 1 09/26/17 Pantoprazole Sodium [Protonix -] 40 mg PO DAILY #30 tablet.ec 09/26/17 Cyclobenzaprine HCl [Flexeril -] 5 mg PO TID tablet 11/04/17 Zolpidem Tartrate [Ambien] 10 mg PO HS PRN tablet MDD 1 11/04/17 Diphenhydramine [Benadryl Capsule -] 50 mg PO BID #60 capsule 11/07/17 Divalproex [Depakote -] 250 mg PO BID #60 tab.ec 11/07/17 Trazodone HCl [Desyrel -] 50 mg PO HS #30 tablet 11/07/17 Albuterol Sulfate Inhaler - [Ventolin Hfa Inhaler -] 2 inh PO Q4H 11/10/17 Anemia: No Asthma: No Cancer: No Cardiac Disorders: No CVA: No COPD: No CHF: No Dementia: No Diabetes: No GI Disorders: No Disorders: No HTN: No Hypercholesterolemia: No Kidney Stones: No Liver Disease: Yes (HEP C) Psychiatric Problems: Yes (BIPOLAR) Seizures: Yes (unsure) Thyroid Disease: No - Surgical History Abdominal Surgery: No Appendectomy: No Cardiac Surgery: No Cholecystectomy: No Lung Surgery: No Neurologic Surgery: No Orthopedic Surgery: No - Reproductive History (#): 13 Para: 11 PID: Yes - Immunization History Immunization Up to Date: No - Suicide/Smoking/Psychosocial Hx Smoking History: Current every day smoker Have you smoked in the past 12 months: Yes Number of Cigarettes Smoked Daily: 4 Cigars Per Day: 0 Information on smoking cessation initiated: No 'Breaking Loose' booklet given: 11/10/17 Hx Alcohol Use: No Drug/Substance Use Hx: No (past in [facility]) Substance Use Type: Marijuana Hx Substance Use Treatment: Yes (10/2017) Review of Systems - Review of Systems Able to Perform ROS?: Yes Is the patient limited Bulgarian proficient: No Constitutional: No: Symptoms Reported HEENTM: Yes: Symptoms Reported Musculoskeletal: Yes: Symptoms Reported *Physical Exam - Vital Signs Last Vital Signs Temp Pulse Resp BP Pulse Ox 98.4 F 95 H 20 154/66 97 12/02/17 12:00 12/02/17 12:00 12/02/17 12:00 12/02/17 12:00 12/02/17 12:00 - Physical Exam General Appearance: Yes: Nourished, Appropriately Dressed HEENT: positive: EOMI, PARTH, Pharyngeal Erythema. negative: Tonsillar Exudate, Tonsillar Erythema Neck: positive: Supple Respiratory/Chest: positive: Lungs Clear, Normal Breath Sounds Cardiovascular: positive: Regular Rhythm, Regular Rate Gastrointestinal/Abdominal: positive: Normal Bowel Sounds, Soft Extremity: positive: Normal Capillary Refill, Normal Inspection, Normal Range of Motion Integumentary: positive: Normal Color, Dry, Warm Neurologic: positive: Fully Oriented, Alert, Normal Mood/Affect, Normal Response , Motor Strength 5/5 Medical Decision Making - Medical Decision Making 12/02/17 12:32 sore throat pt also tripped on her way into the hospital and scraped her right knee. pt states her tetanus is UTD no bony tenderness abrasion to the right knee cleaned with peroxide bacitracin and bandaid *DC/Admit/Observation/Transfer Diagnosis at time of Disposition: Pharyngitis Qualifiers: Pharyngitis/tonsillitis etiology: other specified organisms Qualified Code(s): J02.8 - Acute pharyngitis due to other specified organisms - Discharge Dispostion Disposition: HOME Condition at time of disposition: Good - Referrals - Patient Instructions Additional Instructions: gargle with warm salt water 4-5 times a day take motrin 600mg every 6hrs for pain keep the area clean and dry - Post Discharge Activity Forms/Work/School Notes: Back to School
== END 2017-12-02 13:28 | disposition home or self-care (01) ==
LOC: JERFT 11:44
DX: J02.8 Acute pharyngitis due to other specified organisms (principal); S80.211A Abrasion, right knee, initial encounter; W18.39XA Other fall on same level, initial encounter; Y93.89 Activity, other specified; Y92.238 Other place in hospital as the place of occurrence of the external cause; F31.9 Bipolar disorder, unspecified; B19.20 Unspecified viral hepatitis C without hepatic coma
CPT/HCPCS: 87070; 87186; 87430; 99281-25

== ENCOUNTER 2017-12-03 09:55 | Observation (INO) | payer OTHER ==
[2017-12-03] MEDS ORDERED: PANTOPRAZOLE SODIUM 40 MG in SODIUM CHLORIDE 100 ML IVPB ONE (10:17)
[2017-12-03] MEDS ORDERED: SODIUM CHLORIDE 1,000 ML IV STA (10:17)
[2017-12-03] MEDS ORDERED: ACETAMINOPHEN 1000 MG/100 ML VIAL (NON FORMULARY) IVPB ONE (10:24)
--- NOTE | 2017-12-03 10:31 | PDOC ---
History of Present Illness <Leyda Smith - Last Filed: 12/03/17 16:47> - General History Source: Patient Exam Limitations: No Limitations - History of Present Illness Travel History: No Initial Comments: 12/03/17 10:31 47-year-old female with history of polysubstance abuse, hep C and alcohol abuse presents to the ED with awakening with nausea and vomiting. Followed by sharp pain to the upper abdominal area. Patient states pain continues along with nausea now associated vomiting at least 3 times. Patient states was drinking vodka last night in an unknown amount. Patient states has had similar symptoms in the past secondary to alcohol use and has been in outpatient or inpatient programs with relapse. Patient states took no medication this morning secondary to the above symptoms and denies chest pain, shortness of breath, fever, chills , weakness, headache, fall, urinary complaints, bowel complaints. Timing/Duration: reports: constant Quality: reports: moderate, aching Abdominal Pain Onset Location: reports: epigastric Pain Radiation: reports: no radiation Activities at Onset: reports: none Aggravating Factors: improves with: None Alleviating Factors: improves with: None <Roopa Granado - Last Filed: 12/04/17 18:20> - General Chief Complaint: Nausea/Vomiting Stated Complaint: VOMITING Time Seen by Provider: 12/03/17 10:02 Past History <Leyda Smith - Last Filed: 12/03/17 16:47> - Travel Traveled outside of the country in the last 30 days: No - Past Medical History Anemia: No Asthma: No Cancer: No Cardiac Disorders: No CVA: No COPD: No CHF: No Dementia: No Diabetes: No GI Disorders: No Disorders: No HTN: No Hypercholesterolemia: No Kidney Stones: No Liver Disease: Yes (HEP C) Psychiatric Problems: Yes (BIPOLAR) Seizures: Yes (unsure) Thyroid Disease: No - Surgical History Abdominal Surgery: No Appendectomy: No Cardiac Surgery: No Cholecystectomy: No Lung Surgery: No Neurologic Surgery: No Orthopedic Surgery: No - Reproductive History (#): 13 Para: 11 PID: Yes - Immunization History Immunization Up to Date: No - Suicide/Smoking/Psychosocial Hx Smoking History: Never smoked Have you smoked in the past 12 months: Yes Number of Cigarettes Smoked Daily: 4 Cigars Per Day: 0 Information on smoking cessation initiated: No 'Breaking Loose' booklet given: 11/10/17 Hx Alcohol Use: No Drug/Substance Use Hx: No Substance Use Type: None, Marijuana Hx Substance Use Treatment: Yes (10/2017) Patient Lives Alone: No Lives with/in: spouse/SO <Roopa Granado - Last Filed: 12/04/17 18:20> - Past Medical History Allergies/Adverse Reactions: Allergies Allergy/AdvReac Type Severity Reaction Status Date / Time metoclopramide HCl Allergy Severe dystonic Verified 12/03/17 10:11 [From Reglan] reaction prochlorperazine maleate Allergy Severe DYSTONIA Verified 12/02/17 11:59 [From Compazine] Home Medications: Ambulatory Orders Hypromellose 0.5% Opth Soln [Artificial Tears] 1 drop AU DAILY 07/18/17 Fluticasone Prop 0.05% Nasal [Flonase -] 1 spray NS DAILY #1 bottle 07/19/17 Gabapentin 100 mg PO TID #90 capsule 07/19/17 Quetiapine Fumarate [Seroquel] 300 mg PO BID #60 tablet 07/19/17 Methadone [Dolophine -] 80 mg PO DAILY@0600 tablet MDD 1 09/26/17 Pantoprazole Sodium [Protonix -] 40 mg PO DAILY #30 tablet.ec 09/26/17 Cyclobenzaprine HCl [Flexeril -] 5 mg PO TID tablet 11/04/17 Zolpidem Tartrate [Ambien] 10 mg PO HS PRN tablet MDD 1 11/04/17 Diphenhydramine [Benadryl Capsule -] 50 mg PO BID #60 capsule 11/07/17 Divalproex [Depakote -] 250 mg PO BID #60 tab.ec 11/07/17 Trazodone HCl [Desyrel -] 50 mg PO HS #30 tablet 11/07/17 Albuterol Sulfate Inhaler - [Ventolin Hfa Inhaler -] 2 inh PO Q4H 11/10/17 Abd/GI Specific PMHX - Complaint Specific PMHX Hepatitis: Yes Pancreatitis: Yes <Roopa Granado - Last Filed: 12/04/17 18:20> Review of Systems - Review of Systems Able to Perform ROS?: Yes Constitutional: Yes: Weakness HEENTM: No: Symptoms Reported Respiratory: No: Symptoms reported Cardiac (ROS): No: Symptoms Reported ABD/GI: Yes: Nausea, Poor Appetite, Abdominal cramping : No: Symptoms Reported Musculoskeletal: No: Symptoms Reported Integumentary: No: Symptoms Reported Neurological: No: Symptoms reported Hematologic/Lymphatic: No: Symptoms Reported <Roopa Granado - Last Filed: 12/04/17 18:20> *Physical Exam - Vital Signs Last Vital Signs Temp Pulse Resp BP Pulse Ox 99.4 F 90 20 156/105 98 12/03/17 10:04 12/03/17 15:45 12/03/17 15:45 12/03/17 15:45 12/03/17 15:45 <Leyda Smith - Last Filed: 12/03/17 16:47> - Vital Signs Last Vital Signs Temp Pulse Resp BP Pulse Ox 99.4 F 88 18 157/97 100 12/03/17 10:04 12/03/17 10:04 12/03/17 10:04 12/03/17 10:04 12/03/17 10:04 - Physical Exam General Appearance: Yes: Nourished, Appropriately Dressed, Alcohol on Breath. No: Apparent Distress HEENT: positive: EOMI, PARTH, Pharynx Normal (dry) Neck: positive: Supple Respiratory/Chest: positive: Lungs Clear, Normal Breath Sounds. negative: Respiratory Distress, Accessory Muscle Use Cardiovascular: positive: Regular Rhythm, Regular Rate. negative: Murmur Gastrointestinal/Abdominal: positive: Normal Bowel Sounds, Soft, Tenderness ( epigastric). negative: Distended, Guarding, Rebound Extremity: positive: Normal Capillary Refill. negative: Pedal Edema Integumentary: positive: Normal Color, Dry, Warm Neurologic: positive: Normal Mood/Affect, Motor Strength 5/5 <Roopa Granado - Last Filed: 12/04/17 18:20> Heart Score/ECG Review - ECG Intrepretation Rhythm: Regular Rhythm (Normal sinus rhythm at 77. Prolonged QTC at 540 ms.) <Luigi Granadoa - Last Filed: 12/04/17 18:20> ED Treatment Course - LABORATORY CBC & Chemistry Diagram: 12/03/17 10:25 12/03/17 10:25 - ADDITIONAL ORDERS Additional order review: Laboratory Results 12/03/17 12/03/17 12/03/17 10:25 10:25 10:25 Sodium 140 Potassium 3.5 Chloride 108 H Carbon Dioxide 22 Anion Gap 10 BUN 8 Creatinine 0.6 Creat Clearance w eGFR > 60 Random Glucose 150 H Calcium 7.9 L Magnesium 1.6 L Total Bilirubin 0.4 AST 93 H ALT 52 Alkaline Phosphatase 96 Creatine Kinase 220 H Creatine Kinase Index 1.3 CK-MB (CK-2) 2.981 Troponin I < 0.02 Total Protein 7.7 Albumin 4.0 Total Amylase 105 Lipase 466 H Urine Color Ltyellow Urine Appearance Cloudy Urine pH 7.0 Ur Specific [place] 1.012 Urine Protein Negative Urine Glucose (UA) Negative Urine Ketones Trace H Urine Blood Negative Urine Nitrite Negative Urine Bilirubin Negative Urine Urobilinogen Negative Ur Leukocyte Esterase Negative Urine HCG, Qual Negative Opiates Screen Negative Methadone Screen Positive Barbiturate Screen Negative Phencyclidine Screen Negative Ur Amphetamines Screen Negative MDMA (Ecstasy) Screen Negative Benzodiazepines Screen Positive Cocaine Screen Negative U Marijuana (THC) Screen Positive 12/03/17 10:25 RBC 4.15 MCV 99.7 H MCHC 33.1 RDW 13.4 MPV 10.7 D Neutrophils % 73.9 D Lymphocytes % 19.9 D Monocytes % 5.5 Eosinophils % 0.5 D Basophils % 0.2 - Medications Given in the ED: ED Medications Discontinued Medications Generic Name Dose Route Start Last Admin Trade Name [place] PRN Reason Stop Dose Admin Acetaminophen 1,000 mg 12/03/17 10:24 12/03/17 11:15 Ofirmev Injection - IVPB 12/03/17 10:25 1,000 mg ONCE ONE Administration Buprenorphine HCl 2 mg 12/03/17 15:49 12/03/17 16:45 Subutex - SL 12/03/17 15:50 Not Given ONCE ONE Calcium Gluconate 1,000 mg 12/03/17 12:07 12/03/17 12:44 Calcium Gluconate 10% - IVPB 12/03/17 12:08 1,000 mg ONCE ONE Administration Diphenhydramine HCl 50 mg 12/03/17 15:34 12/03/17 16:08 Benadryl Injection - IVPB 12/03/17 15:35 50 mg ONCE ONE Administration Sodium Chloride 1,000 mls @ 1,000 mls/hr 12/03/17 10:17 12/03/17 11:29 Normal Saline - IV 12/03/17 11:16 1,000 mls/hr ASDIR STA Administration Pantoprazole Sodium 40 mg/ 100 mls @ 200 mls/hr 12/03/17 10:17 12/03/17 11:30 Sodium Chloride IVPB 12/03/17 10:46 200 mls/hr ONCE ONE Administration Lorazepam 1 mg 12/03/17 14:22 12/03/17 14:42 Ativan Injection - IVPUSH 12/03/17 14:23 1 mg ONCE ONE Administration Magnesium Sulfate 2 gm 12/03/17 11:47 12/03/17 12:14 Magnesium Sulfate IVPB 12/03/17 11:48 2 gm ONCE ONE Administration <Leyda Smith - Last Filed: 12/03/17 16:47> - LABORATORY CBC & Chemistry Diagram: 12/04/17 06:30 12/04/17 06:30 <Roopa Granado - Last Filed: 12/04/17 18:20> Medical Decision Making - Medical Decision Making 12/03/17 16:48 Dr. Harriet Rosa was paged and notified via phone service. <Leyda Smith - Last Filed: 12/03/17 16:47> - Medical Decision Making 12/03/17 10:44 Patient here for complaints of epigastric aching pain along with nausea and vomiting since this morning. Patient with history of the same after alcohol intake which she states is drinking vodka last evening. Patient has no other complaints at this time except for poor appetite normally. Patient on exam with epigastric tenderness dry oral for next with alcohol on breath. Differential diagnosis gastritis, pancreatitis, electrolyte imbalance PUD, cholecystitis, ACS Patient ordered for cardiac profile, EKG, chest x-ray, IV fluids, Protonix, IV Tylenol, CBC, comp, lipase, amylase urinalysis. Patient had allergic reaction I think to Pepcid or Zofran previous ER visit and has multiple allergies to antiemetics. patient not actively vomiting in ER. Patient ordered for Protonix. 12/03/17 11:46 Patient's nurse unable to obtain IV access. I placed a #20 and patient's right EJ without difficulty. normal saline along with IV fluids infusing. 12/03/17 12:17 Laboratory Tests 12/03/17 12/03/17 10:25 10:25 WBC 6.2 D Hgb 13.7 Hct 41.4 MCV 99.7 H Plt Count 88 L D Chloride 108 H Random Glucose 150 H Calcium 7.9 L Magnesium 1.6 L Total Bilirubin 0.4 AST 93 H ALT 52 Creatine Kinase 220 H Albumin 4.0 Lipase 466 H Patient ordered for calcium gluconate 1 g along with 2 g of magnesium. Patient awaiting abdominal CT with contrast enhanced imaging to rule out pancreatitis. 12/03/17 15:[address] patient began to vomit. Patient ordered for Ativan with minimal relief. Patient ordered for Benadryl and as per recommendation from the attending patient was also ordered for buprenex. Will attempt CT once patient is stabilized 12/03/17 17:34 Laboratory Tests 12/03/17 12/03/17 10:25 10:25 Urine Ketones Trace H Ur Leukocyte Esterase Negative Urine HCG, Qual Negative Methadone Screen Positive Benzodiazepines Screen Positive U Marijuana (THC) Screen Positive Patient received Ativan prior to urine collection and is on maintenance methadone daily. <Roopa Granado - Last Filed: 12/04/17 18:20> *DC/Admit/Observation/Transfer <Leyda Smith - Last Filed: 12/03/17 16:47> - Discharge Dispostion Admit: Yes <Roopa Granado - Last Filed: 12/04/17 18:20> Diagnosis at time of Disposition: Uncontrollable nausea and vomiting, Epigastric abdominal pain, EtOH dependence , Elevated lipase
[2017-12-03] MEDS ORDERED: ACETAMINOPHEN INJECTION 100 ML IVPB ONE (10:39)
[2017-12-03] MEDS ORDERED: PANTOPRAZOLE SODIUM 40 MG VIAL ONE (10:39)
[2017-12-03 10:44] LABS: BASO % 0.2 % (0-2.0); EOS % 0.5 % (0-4.5); HEMATOCRIT 41.4 % (32.4-45.2); HEMOGLOBIN 13.7 GM/dL (10.7-15.3); LYMPH % 19.9 % (8-40); MCHC 33.1 g/dl (32.0-36.0); MEAN CELL VOLUME 99.7 fl (80-96); MEAN PLT VOLUME 10.7 fl (7.5-11.1); MONO % 5.5 % (3.8-10.2); NEUT % 73.9 % (42.8-82.8); PLATELET COUNT 88 K/MM3 (134-434); RBC 4.15 M/mm3 (3.60-5.2); RDW 13.4 % (11.6-15.6); WHITE BLOOD COUNT 6.2 K/mm3 (4.0-10.0)
[2017-12-03 11:31] LABS: AMYLASE 105 U/L (25-115); ANION GAP 10 (8-16); BILIRUBIN,TOTAL 0.4 mg/dL (0.2-1.0); BLOOD UREA NITROGEN 8 mg/dL (7-18); CALCIUM 7.9 mg/dL (8.5-10.1); CHLORIDE 108 mmol/L (98-107); CO2 22 mmol/L (21-32); CREATININE 0.6 mg/dL (0.55-1.02); GLUCOSE,RANDOM 150 mg/dL (74-106); MAGNESIUM 1.6 mg/dL (1.8-2.4); POTASSIUM 3.5 mmol/L (3.5-5.1); SGOT/AST 93 U/L (15-37); SODIUM 140 mmol/L (136-145); TOT PROT 7.7 g/dl (6.4-8.2)
[2017-12-03 11:34] LABS: LIPASE 466 U/L (73-393)
[2017-12-03 11:35] LABS: ALK PHOS 96 U/L (45-117); SGPT/ALT 52 U/L (12-78)
[2017-12-03] MEDS ORDERED: MAGNESIUM SULF 50% (8.12 MEQ/2 ML-1 GM VIAL) IVPB ONE (11:47)
[2017-12-03] MEDS ORDERED: MAGNESIUM SULF 50% (8.12 MEQ/2 ML-1 GM VIAL) ONE (11:56)
[2017-12-03] MEDS ORDERED: CALCIUM GLUCONATE 10% - 1,000 MG/10 ML VIAL IVPB ONE (12:07)
[2017-12-03] MEDS ORDERED: CALCIUM GLUCONATE 10% - 1,000 MG/10 ML VIAL ONE (12:38)
[2017-12-03 13:37] LABS: HCG,QUALITATIVE URINE NEGATIVE; URINE APPEARANCE CLOUDY; URINE BILIRUBIN NEGATIVE (NEGATIVE); URINE BLOOD NEGATIVE (NEGATIVE); URINE COLOR LTYELLOW; URINE GLUCOSE (UA) NEGATIVE (NEGATIVE); URINE KETONE TRACE (NEGATIVE); URINE LEUK ESTERASE NEGATIVE (NEGATIVE); URINE NITRITE NEGATIVE (NEGATIVE); URINE PROTEIN NEGATIVE (NEGATIVE); URINE UROBILINOGEN NEGATIVE mg/dL (0.2-1.0)
[2017-12-03] MEDS ORDERED: LORazepam 2 MG/ML SDV VIAL ONE (14:40)
[2017-12-03 15:00] LABS: COCAINE, UR NEGATIVE ng/ml (CUTOFF=300); OPIATES, URI NEGATIVE ng/ml (CUTOFF=300); PHENCYCLIDINE,URINE NEGATIVE ng/ml (CUTOFF=25); URINE AMPHETAMINES NEGATIVE ng/ml (CUTOFF=500); URINE BARBITURATES NEGATIVE ng/ml (CUTOFF=200)
[2017-12-03 15:01] LABS: METHADONE, UR POSITIVE ng/ml (CUTOFF=300); URINE BENZODIAZEPINES POSITIVE ng/ml (CUTOFF=200)
[2017-12-03] MEDS ORDERED: BUPRENORPHINE HCL 2 MG TAB.SUBL SL ONE (15:49)
[2017-12-03] MEDS ORDERED: morphine CARPU-JECT 2 MG/1 ML DISP.SYRIN IVPUSH ONE (16:32)
[2017-12-03] MEDS ORDERED: MORPHINE SULFATE 10 MG/1 ML *VIAL ONE (16:44)
[2017-12-03] MEDS ORDERED: FOLIC ACID INJECTION - 1 MG, THIAMINE HCL 100 MG, MULTIVIT INJECTION ADULT 10 ML in SOD... IVPB ONE (17:29)
[2017-12-03] MEDS ORDERED: HYDROmorphone HCL CARPU-JECT 1 MG/1 ML DISP.SYRIN IVPUSH ONE (17:43)
[2017-12-03] MEDS ORDERED: HYDROmorphone HCL CARPU-JECT 2 MG/1 ML DISP.SYRIN ONE (17:59)
[2017-12-03 21:52] VITALS: BMI 23.1
[2017-12-04] MEDS ORDERED: ALBUTEROL SO4 18 GM HFA INHALER IH PRN (00:11)
[2017-12-04] MEDS ORDERED: ZOLPIDEM TARTRATE 5 MG TABLET PO PRN (00:11)
[2017-12-04] MEDS: DIVALPROEX SODIUM 250 MG TABLET E.C. (FP) PO SCH ×3 (00:40→21:10)
[2017-12-04] MEDS: traZODone HCL 50 MG TABLET (FP) PO SCH ×2 (00:40→21:11)
[2017-12-04] MEDS: diphenhydrAMINE HCL 25 MG CAPSULE (FP) PO SCH ×3 (00:40→21:09)
[2017-12-04] MEDS: QUEtiapine FUMARATE 300 MG TABLET PO SCH ×3 (00:40→21:13)
--- NOTE | 2017-12-04 03:53 | HP ---
CHIEF COMPLAINT: Nausea and vomiting after ETOH use PCP: HISTORY OF PRESENT ILLNESS: 47-year-old female with history of polysubstance abuse, hep C and alcohol abuse presents the ED with awakening with nausea and firing of this. Followed by heme pain to the upper abdominal area. Patient states pain continues along with nausea now associated vomiting at least 3 times. Patient states was drinking vodka last night in an unknown amount. Patient states has had similar symptoms in the past secondary to alcohol use and has been in outpatient or inpatient programs with relapse. Patient states took no medication this morning secondary to the above symptoms and denies chest pain, shortness of breath, fever, chills, weakness, headache, fall, urinary complaints, bowel complaints. ER course was notable for: (1) elevated lipase Recent Travel: denies PAST MEDICAL HISTORY: see hpi PAST SURGICAL HISTORY: see hpi Social History: Smoking: daily 1/2 PPD Alcohol: daily- does not specify amount Drugs: heroin- currently on Methadone, THC Family History: Allergies metoclopramide HCl [From Reglan] Allergy (Severe, Verified 12/03/17 10:11) dystonic reaction dystonic reaction prochlorperazine maleate [From Compazine] Allergy (Severe, Verified 12/02/17 11: 59) DYSTONIA HOME MEDICATIONS: Home Medications Medication Instructions Recorded Hypromellose 0.5% Opth Soln 1 drop AU DAILY 07/18/17 [Artificial Tears] Fluticasone Prop 0.05% Nasal 1 spray NS DAILY #1 bottle 07/19/17 [Flonase -] Gabapentin 100 mg PO TID #90 capsule 07/19/17 Quetiapine Fumarate [Seroquel] 300 mg PO BID #60 tablet 07/19/17 Methadone [Dolophine -] 80 mg PO DAILY@0600 tablet MDD 1 09/26/17 Pantoprazole Sodium [Protonix -] 40 mg PO DAILY #30 tablet.ec 09/26/17 Cyclobenzaprine HCl [Flexeril -] 5 mg PO TID tablet 11/04/17 Zolpidem Tartrate [Ambien] 10 mg PO HS PRN tablet MDD 1 11/04/17 Diphenhydramine [Benadryl Capsule 50 mg PO BID #60 capsule 11/07/17 -] Divalproex [Depakote -] 250 mg PO BID #60 tab.ec 11/07/17 Trazodone HCl [Desyrel -] 50 mg PO HS #30 tablet 11/07/17 Albuterol Sulfate Inhaler - 2 inh PO Q4H 11/10/17 [Ventolin Hfa Inhaler -] REVIEW OF SYSTEMS CONSTITUTIONAL: Absent: fever, chills, diaphoresis, generalized weakness, malaise, loss of appetite, weight change HEENT: Absent: rhinorrhea, nasal congestion, throat pain, throat swelling, difficulty swallowing, mouth swelling, ear pain, eye pain, visual changes CARDIOVASCULAR: Absent: chest pain, syncope, palpitations, irregular heart rate, lightheadedness , peripheral edema RESPIRATORY: Absent: cough, shortness of breath, dyspnea with exertion, orthopnea, wheezing, stridor, hemoptysis GASTROINTESTINAL: Present- nausea, vomiting Absent: abdominal pain, abdominal distension, diarrhea, constipation, melena, hematochezia GENITOURINARY: Absent: dysuria, frequency, urgency, hesitancy, hematuria, flank pain, genital pain MUSCULOSKELETAL: Absent: myalgia, arthralgia, joint swelling, back pain, neck pain SKIN: Absent: rash, itching, pallor HEMATOLOGIC/IMMUNOLOGIC: Absent: easy bleeding, easy bruising, lymphadenopathy, frequent infections ENDOCRINE: Absent: unexplained weight gain, unexplained weight loss, heat intolerance, cold intolerance NEUROLOGIC: Absent: headache, focal weakness or paresthesias, dizziness, unsteady gait, seizure, mental status changes, bladder or bowel incontinence PSYCHIATRIC: Absent: anxiety, depression, suicidal or homicidal ideation, hallucinations. PHYSICAL EXAMINATION Vital Signs - 24 hr 12/03/17 12/03/17 12/03/17 10:04 15:45 20:55 Temperature 99.4 F 100.3 F H Pulse Rate 88 Pulse Rate [ 90 95 H Radial] Respiratory 18 20 20 Rate Blood Pressure 157/97 Blood Pressure 156/105 154/93 [Right Arm] O2 Sat by Pulse 100 98 100 Oximetry (%) 12/03/17 21:46 Temperature 99.3 F Pulse Rate 81 Pulse Rate [ Radial] Respiratory 20 Rate Blood Pressure 129/95 Blood Pressure [Right Arm] O2 Sat by Pulse Oximetry (%) GENERAL: Awake, alert, and fully oriented, in no acute distress. HEAD: Normal with no signs of trauma. EYES: Pupils equal, round and reactive to light, extraocular movements intact, sclera anicteric, conjunctiva clear. No lid lag. EARS, NOSE, THROAT: Ears normal, nares patent, oropharynx clear without exudates. Moist mucous membranes. NECK: Normal range of motion, supple without lymphadenopathy, JVD, or masses. LUNGS: Breath sounds equal, clear to auscultation bilaterally. No wheezes, and no crackles. No accessory muscle use. HEART: Regular rate and rhythm, normal S1 and S2 without murmur, rub or gallop. ABDOMEN: Soft, nontender, not distended, normoactive bowel sounds, no guarding, no rebound, no masses. No hepatomegaly or splenomegaly. MUSCULOSKELETAL: Normal range of motion at all joints. No bony deformities or tenderness. No CVA tenderness. UPPER EXTREMITIES: 2+ pulses, warm, well-perfused. No cyanosis. No clubbing. No peripheral edema. LOWER EXTREMITIES: 2+ pulses, warm, well-perfused. No calf tenderness. No peripheral edema. NEUROLOGICAL: Cranial nerves II-XII intact. Normal speech. Normal gait. PSYCHIATRIC: Cooperative. Good eye contact. Appropriate mood and affect. SKIN: Warm, dry, normal turgor, no rashes or lesions noted, normal capillary refill. Laboratory Results - last 24 hr 12/03/17 12/03/17 12/03/17 10:25 10:25 10:25 WBC 6.2 D RBC 4.15 Hgb 13.7 Hct 41.4 MCV 99.7 H MCH 33.0 MCHC 33.1 RDW 13.4 Plt Count 88 L D MPV 10.7 D Neutrophils % 73.9 D Lymphocytes % 19.9 D Monocytes % 5.5 Eosinophils % 0.5 D Basophils % 0.2 Sodium 140 Potassium 3.5 Chloride 108 H Carbon Dioxide 22 Anion Gap 10 BUN 8 Creatinine 0.6 Creat Clearance w eGFR > 60 Random Glucose 150 H Calcium 7.9 L Magnesium 1.6 L Total Bilirubin 0.4 AST 93 H ALT 52 Alkaline Phosphatase 96 Creatine Kinase 220 H Creatine Kinase Index 1.3 CK-MB (CK-2) 2.981 Troponin I < 0.02 Total Protein 7.7 Albumin 4.0 Total Amylase 105 Lipase 466 H Urine Color Ltyellow Urine Appearance Cloudy Urine pH 7.0 Ur Specific [place] 1.012 Urine Protein Negative Urine Glucose (UA) Negative Urine Ketones Trace H Urine Blood Negative Urine Nitrite Negative Urine Bilirubin Negative Urine Urobilinogen Negative Ur Leukocyte Esterase Negative Urine HCG, Qual Negative Opiates Screen Methadone Screen Barbiturate Screen Phencyclidine Screen Ur Amphetamines Screen MDMA (Ecstasy) Screen Benzodiazepines Screen Cocaine Screen U Marijuana (THC) Screen 12/03/17 10:25 WBC RBC Hgb Hct MCV MCH MCHC RDW Plt Count MPV Neutrophils % Lymphocytes % Monocytes % Eosinophils % Basophils % Sodium Potassium Chloride Carbon Dioxide Anion Gap BUN Creatinine Creat Clearance w eGFR Random Glucose Calcium Magnesium Total Bilirubin AST ALT Alkaline Phosphatase Creatine Kinase Creatine Kinase Index CK-MB (CK-2) Troponin I Total Protein Albumin Total Amylase Lipase Urine Color Urine Appearance Urine pH Ur Specific [place] Urine Protein Urine Glucose (UA) Urine Ketones Urine Blood Urine Nitrite Urine Bilirubin Urine Urobilinogen Ur Leukocyte Esterase Urine HCG, Qual Opiates Screen Negative Methadone Screen Positive Barbiturate Screen Negative Phencyclidine Screen Negative Ur Amphetamines Screen Negative MDMA (Ecstasy) Screen Negative Benzodiazepines Screen Positive Cocaine Screen Negative U Marijuana (THC) Screen Positive ASSESSMENT/PLAN: A: 47yo woman with PMH PSA, HCV today with intractible nausea and vomiting s/p heavy ETOH use. P: Intractible nausea and vomiting - Tigan prn - daily bmp - NS@75cc/hr Elevated lipase - trend - GI consult Heroin use - on methadone maintenance program- contact in AM to verify dose Bipolar disorder - no active issues - Seroquel - Depakote - Trazadone - Benadryl F/E/N - replete prn - Regular diet - NS@75cc/hr PPX - OOB Dispo- Requires observation Visit type - Emergency Visit Emergency Visit: Yes ED Registration Date: 12/03/17 Care time: The patient presented to the Emergency Department on the above date and was hospitalized for further evaluation of their emergent condition. - New Patient This patient is new to me today: Yes Date on this admission: 12/04/17 - Critical Care Critical Care patient: No
[2017-12-04] MEDS ORDERED: TRIMETHOBENZAMIDE HCL 300 MG CAPSULE PO PRN (03:57)
[2017-12-04] MEDS ORDERED: SODIUM CHLORIDE 1,000 ML IV SCH (04:00)
[2017-12-04] MEDS: CYCLOBENZAPRINE HCL 10 MG TABLET (FP) PO SCH ×3 (05:18→21:11)
[2017-12-04] MEDS: GABAPENTIN 100 MG CAPSULE (FP) PO SCH ×3 (05:18→21:11)
[2017-12-04 08:15] LABS: BASO % 0.3 % (0-2.0); EOS % 0.2 % (0-4.5); HEMOGLOBIN 12.8 GM/dL (10.7-15.3); LYMPH % 38.9 % (8-40); MCH 32.7 pg (25.7-33.7); MCHC 32.9 g/dl (32.0-36.0); MEAN CELL VOLUME 99.4 fl (80-96); MEAN PLT VOLUME 11.6 fl (7.5-11.1); MONO % 8.9 % (3.8-10.2); NEUT % 51.7 % (42.8-82.8); PLATELET COUNT 61 K/MM3 (134-434); RBC 3.92 M/mm3 (3.60-5.2); RDW 13.2 % (11.6-15.6); WHITE BLOOD COUNT 4.1 K/mm3 (4.0-10.0)
[2017-12-04 08:27] LABS: ALBUMIN 3.5 g/dl (3.4-5.0); ANION GAP 8 (8-16); BLOOD UREA NITROGEN 5 mg/dL (7-18); CALCIUM 7.4 mg/dL (8.5-10.1); CHLORIDE 105 mmol/L (98-107); CO2 24 mmol/L (21-32); GLUCOSE,RANDOM 81 mg/dL (74-106); POTASSIUM 3.5 mmol/L (3.5-5.1); SODIUM 137 mmol/L (136-145)
[2017-12-04 08:31] LABS: ALK PHOS 82 U/L (45-117); BILIRUBIN,TOTAL 0.8 mg/dL (0.2-1.0); CREATININE 0.4 mg/dL (0.55-1.02); SGOT/AST 52 U/L (15-37); SGPT/ALT 39 U/L (12-78); TOT PROT 6.8 g/dl (6.4-8.2)
[2017-12-04 08:48] LABS: LIPASE 373 U/L (73-393)
[2017-12-04] MEDS ORDERED: PT OWN MED DRAWER 7, Y5N ONE (09:23)
[2017-12-04] MEDS: METHADONE HCL 40 MG DISPERSABLE TABLET PO SCH (10:09)
[2017-12-04] MEDS: ARTIFICIAL TEARS (POLYVINYL ALCOHOL 1.4%) OPTH DROPS OU SCH (10:09)
[2017-12-04] MEDS: FLUTICASONE PROP 0.05% 16 GM NASAL SPRAY NS SCH (10:10)
[2017-12-04] MEDS: PANTOPRAZOLE 40 MG TABLET (FP) PO SCH (10:10)
--- NOTE | 2017-12-04 12:39 | EKG ---
Test Reason : Blood Pressure : / mmHG Vent. Rate : 077 BPM Atrial Rate : 077 BPM P-R Int : 140 ms QRS Dur : 086 ms QT Int : 478 ms P-R-T Axes : 056 056 053 degrees QTc Int : 540 ms NORMAL SINUS RHYTHM VOLTAGE CRITERIA FOR LEFT VENTRICULAR HYPERTROPHY ANTEROSEPTAL INFARCT (CITED ON OR BEFORE 05-NOV-2017) PROLONGED QT ABNORMAL ECG WHEN COMPARED WITH ECG OF 05-NOV-2017 14:41, NOTE PRESENSE OF NON SPECIFIC T WAVE ABNORMALITY CLINICAL CORRELATION IS RECOMMENDED Confirmed by BRIDGETTE SÁNCHEZ, WAYNE ([id number]) on 12/04/2017 12:39:31 PM Referred By: Confirmed By:WAYNE ANGELES MD
[2017-12-04] MEDS: AMOXICILLIN 500 MG CAPSULE (FP) PO SCH ×2 (12:56→21:14)
[2017-12-04 13:04] LABS: MAGNESIUM 2.1 mg/dL (1.8-2.4)
--- NOTE | 2017-12-04 13:53 | CON.GI ---
Consult Consult Specialty:: GI Reason for Consultation:: nausea and vomiting x 1 day - History of Present Illness History of Present Illness: chart reviewed The pt is awake, alert and oriented. A 47-year-old female with history of polysubstance abuse, hep C and alcohol abuse presents to the ED with nausea, vomiting an ddyspepsia the day after binge drinking vodka. Reports similar episodes of the same after each episode of drinking. Admits not eating while drinking. No melewna, hematochezia, hematemesis, or chest pain. No odynophagia, dysphagia, jaundoice, or fever. Pain free at the time of this encounter. Tolerated lunch and breakfast today w/ o symptoms. - History Source History Provided By: Patient Limitations to Obtaining History: No Limitations - Past Medical History Gastrointestinal: Yes: Pancreatitis Hepatobiliary: Yes: Hepatitis C ...LMP: 11/04/17 ...: No Infectious Disease: Yes: HIV Psych: Yes: Addictions, Bipolar - Past Surgical History Past Surgical History: Yes: None - Alcohol/Substance Use Hx Alcohol Use: Yes Number of Drinks Daily: 4 (4 pints a day) History of Substance Use: reports: Heroin - Smoking History Smoking history: Current every day smoker Have you smoked in the past 12 months: Yes Aproximately how many cigarettes per day: 4 - Social History ADL: Independent History of Recent Travel: No Home Medications - Allergies Allergies/Adverse Reactions: Allergies Allergy/AdvReac Type Severity Reaction Status Date / Time metoclopramide HCl Allergy Severe dystonic Verified 12/03/17 10:11 [From Reglan] reaction prochlorperazine maleate Allergy Severe DYSTONIA Verified 12/02/17 11:59 [From Compazine] - Home Medications Home Medications: Ambulatory Orders Hypromellose 0.5% Opth Soln [Artificial Tears] 1 drop AU DAILY 07/18/17 Fluticasone Prop 0.05% Nasal [Flonase -] 1 spray NS DAILY #1 bottle 07/19/17 Gabapentin 100 mg PO TID #90 capsule 07/19/17 Quetiapine Fumarate [Seroquel] 300 mg PO BID #60 tablet 07/19/17 Methadone [Dolophine -] 80 mg PO DAILY@0600 tablet MDD 1 09/26/17 Pantoprazole Sodium [Protonix -] 40 mg PO DAILY #30 tablet.ec 09/26/17 Cyclobenzaprine HCl [Flexeril -] 5 mg PO TID tablet 11/04/17 Zolpidem Tartrate [Ambien] 10 mg PO HS PRN tablet MDD 1 11/04/17 Diphenhydramine [Benadryl Capsule -] 50 mg PO BID #60 capsule 11/07/17 Divalproex [Depakote -] 250 mg PO BID #60 tab.ec 11/07/17 Trazodone HCl [Desyrel -] 50 mg PO HS #30 tablet 11/07/17 Albuterol Sulfate Inhaler - [Ventolin Hfa Inhaler -] 2 inh PO Q4H 11/10/17 Family Disease History - Family Disease History Family Disease History: Diabetes: Grandparent (mgm - dm, htn), Other: Father ( CVA), Mother (alive, well), Brother ( AIDS), Sister ( THROAT CA) Review of Systems Findings/Remarks: As per H&P Physical Exam-GI Vital Signs: Vital Signs Temperature 99.6 F 12/04/17 09:00 Pulse Rate 86 12/04/17 09:00 Respiratory Rate 18 12/04/17 09:00 Blood Pressure 135/72 12/04/17 09:00 O2 Sat by Pulse Oximetry (%) 100 12/03/17 20:55 Constitutional: Yes: No Distress, Calm Eyes: Yes: Conjunctiva Clear HENT: Yes: Atraumatic Neck: Yes: Supple Cardiovascular: Yes: Regular Rate and Rhythm Respiratory: Yes: Regular Gastrointestinal Inspection: No: Ascites, Distention ...Auscultate: Yes: Normoactive Bowel Sounds ...Palpate: Yes: Soft. No: Firm/Rigid, Mass, Tenderness, Tenderness, Epigastium ...Percussion: No: Fluid Wave Neurological: Yes: Alert, Oriented. No: Asterixis, Confusion, Lethargy, Tremors Labs: CBC, BMP 12/04/17 06:30 12/04/17 06:30 Laboratory Tests 12/03/17 12/03/17 12/03/17 10:25 10:25 10:25 WBC 6.2 D RBC 4.15 Hgb 13.7 Hct 41.4 MCV 99.7 H MCH 33.0 MCHC 33.1 RDW 13.4 Plt Count 88 L D MPV 10.7 D Neutrophils % 73.9 D Lymphocytes % 19.9 D Monocytes % 5.5 Eosinophils % 0.5 D Basophils % 0.2 Sodium 140 Potassium 3.5 Chloride 108 H Carbon Dioxide 22 Anion Gap 10 BUN 8 Creatinine 0.6 Creat Clearance w eGFR > 60 Random Glucose 150 H Calcium 7.9 L Magnesium 1.6 L Total Bilirubin 0.4 AST 93 H ALT 52 Alkaline Phosphatase 96 Creatine Kinase 220 H Creatine Kinase Index 1.3 CK-MB (CK-2) 2.981 Troponin I < 0.02 Total Protein 7.7 Albumin 4.0 Total Amylase 105 Lipase 466 H Urine Color Ltyellow Urine Appearance Cloudy Urine pH 7.0 Ur Specific [place] 1.012 Urine Protein Negative Urine Glucose (UA) Negative Urine Ketones Trace H Urine Blood Negative Urine Nitrite Negative Urine Bilirubin Negative Urine Urobilinogen Negative Ur Leukocyte Esterase Negative Urine HCG, Qual Negative Opiates Screen Methadone Screen Barbiturate Screen Phencyclidine Screen Ur Amphetamines Screen MDMA (Ecstasy) Screen Benzodiazepines Screen Cocaine Screen U Marijuana (THC) Screen 12/03/17 12/04/17 12/04/17 10:25 06:30 06:30 WBC 4.1 D RBC 3.92 Hgb 12.8 Hct 39.0 MCV 99.4 H MCH 32.7 MCHC 32.9 RDW 13.2 Plt Count 61 L D MPV 11.6 H Neutrophils % 51.7 D Lymphocytes % 38.9 D Monocytes % 8.9 Eosinophils % 0.2 Basophils % 0.3 Sodium 137 Potassium 3.5 Chloride 105 Carbon Dioxide 24 Anion Gap 8 BUN 5 L Creatinine 0.4 L Creat Clearance w eGFR > 60 Random Glucose 81 Calcium 7.4 L Magnesium 2.1 Total Bilirubin 0.8 D AST 52 H ALT 39 Alkaline Phosphatase 82 Creatine Kinase Creatine Kinase Index CK-MB (CK-2) Troponin I Total Protein 6.8 Albumin 3.5 Total Amylase Lipase 373 Urine Color Urine Appearance Urine pH Ur Specific [place] Urine Protein Urine Glucose (UA) Urine Ketones Urine Blood Urine Nitrite Urine Bilirubin Urine Urobilinogen Ur Leukocyte Esterase Urine HCG, Qual Opiates Screen Negative Methadone Screen Positive Barbiturate Screen Negative Phencyclidine Screen Negative Ur Amphetamines Screen Negative MDMA (Ecstasy) Screen Negative Benzodiazepines Screen Positive Cocaine Screen Negative U Marijuana (THC) Screen Positive Imaging - Results Cat Scan: Report Reviewed Problem List - Problems (1) Alcoholic gastritis without bleeding Code(s): K29.20 - ALCOHOLIC GASTRITIS WITHOUT BLEEDING (2) Pancreatitis Code(s): K85.90 - ACUTE PANCREATITIS WITHOUT NECROSIS OR INFECTION, UNSP Assessment/Plan A 47 yof, alcoholic with nausea, vomiting and mildy elevated lipase after a day of drinking vodka. The lipase has normalized on repeat blood work. AST x2 > ALT. Tolerating PO and asymptomatic as of this AM. ETOH counseling Diet as tolerated, PO hydration OK to d/c from GI perspective, pending CT results PPI po qam x 15 days, Follow up as OP with GI in 1 week
[2017-12-04] MEDS ORDERED: DEXTROSE 5%-NORMAL SALINE 1,000 ML IV SCH (21:00)
[2017-12-05] MEDS: GABAPENTIN 100 MG CAPSULE (FP) PO SCH ×2 (06:04→13:56)
[2017-12-05] MEDS: METHADONE HCL 40 MG DISPERSABLE TABLET PO SCH (06:04)
[2017-12-05] MEDS: CYCLOBENZAPRINE HCL 10 MG TABLET (FP) PO SCH ×2 (06:04→13:56)
--- NOTE | 2017-12-05 09:17 | PN ---
Progress Note (short form) - Note Progress Note: Subjective: The patient was seen and examined at the bedside, she is refusing an MRI. She states she feels "fine" and wants to eat a regular diet. Current Medications Generic Name Dose Route Start Last Admin Trade Name Freq PRN Reason Stop Dose Admin Albuterol Sulfate 2 puff 12/04/17 00:11 Ventolin Hfa Inhaler - IH Q4H PRN WHEEZING Artificial Tears 1 drop 12/04/17 10:00 12/04/17 10:09 Artificial Tears OU 1 drop DAILY GONZALEZ Administration Cyclobenzaprine HCl 5 mg 12/04/17 06:00 12/05/17 06:04 Flexeril - PO 5 mg TID GONZALEZ Administration Diphenhydramine HCl 50 mg 12/04/17 00:30 12/04/17 21:09 Benadryl - PO 50 mg BID GONZALEZ Administration Divalproex Sodium 250 mg 12/04/17 00:15 12/04/17 21:10 Depakote - PO 250 mg BID GONZALEZ Administration Fluticasone Propionate 1 spray 12/04/17 10:00 12/04/17 10:10 Flonase - NS 1 spray DAILY GONZALEZ Administration Gabapentin 100 mg 12/04/17 06:00 12/05/17 06:04 Neurontin - PO 100 mg TID GONZALEZ Administration Metronidazole 500 mg in 100 mls @ 100 mls/hr 12/04/17 20:00 12/05/17 01:42 Flagyl 500mg Premixed Ivpb - IVPB 100 mls/hr Q8H-IV GONZALEZ Administration Dextrose/Sodium Chloride 1,000 mls @ 75 mls/hr 12/04/17 21:00 12/04/17 21:12 D5-Ns - IV 75 mls/hr ASDIR GONZALEZ Administration CEFTRIAXONE 1 G/50 ML PREMIX 50 mls @ 100 mls/hr 12/05/17 10:00 Ceftriaxone 1 Gm-D5w Bag IVPB DAILY GONZALEZ Methadone HCl 80 mg 12/04/17 07:37 12/05/17 06:04 Dolophine - PO 80 mg DAILY@0600 GONZALEZ Administration Pantoprazole Sodium 40 mg 12/04/17 10:00 12/04/17 10:10 Protonix - PO 40 mg DAILY GONZALEZ Administration Quetiapine Fumarate 300 mg 12/04/17 00:15 12/04/17 21:13 Seroquel - PO 300 mg BID GONZALEZ Administration Trazodone HCl 50 mg 12/04/17 00:15 12/04/17 21:11 Desyrel - PO 50 mg HS GONZALEZ Administration Trimethobenzamide HCl 300 mg 12/04/17 03:57 Tigan - PO Q8H PRN NAUSEA AND/OR VOMITING Zolpidem Tartrate 10 mg 12/04/17 00:11 12/04/17 21:10 Ambien - PO 10 mg HS PRN Administration INSOMNIA Objective: Vital Signs Period Temp Pulse Resp BP Sys/Moore Pulse Ox Last 24 Hr 97.3 F-98.9 F 76-86 16-20 107-130/70-95 Physical Exam: General: NAD, A&Ox3 Lungs: CTA bilaterally Heart: RRR Abd: Soft, non-tender, non-distended. Normoactive bowel sounds CBCD WBC 4.1 K/mm3 (4.0-10.0) D 12/04/17 06:30 RBC 3.92 M/mm3 (3.60-5.2) 12/04/17 06:30 Hgb 12.8 GM/dL (10.7-15.3) 12/04/17 06:30 Hct 39.0 % (32.4-45.2) 12/04/17 06:30 MCV 99.4 fl (80-96) H 12/04/17 06:30 MCHC 32.9 g/dl (32.0-36.0) 12/04/17 06:30 RDW 13.2 % (11.6-15.6) 12/04/17 06:30 Plt Count 61 K/MM3 (134-434) L D 12/04/17 06:30 MPV 11.6 fl (7.5-11.1) H 12/04/17 06:30 CMP Sodium 137 mmol/L (136-145) 12/04/17 06:30 Potassium 3.5 mmol/L (3.5-5.1) 12/04/17 06:30 Chloride 105 mmol/L (98-107) 12/04/17 06:30 Carbon Dioxide 24 mmol/L (21-32) 12/04/17 06:30 Anion Gap 8 (8-16) 12/04/17 06:30 BUN 5 mg/dL (7-18) L 12/04/17 06:30 Creatinine 0.4 mg/dL (0.55-1.02) L 12/04/17 06:30 Creat Clearance w eGFR > 60 (>60) 12/04/17 06:30 Random Glucose 81 mg/dL (74-106) 12/04/17 06:30 Calcium 7.4 mg/dL (8.5-10.1) L 12/04/17 06:30 Total Bilirubin 0.8 mg/dL (0.2-1.0) D 12/04/17 06:30 AST 52 U/L (15-37) H 12/04/17 06:30 ALT 39 U/L (12-78) 12/04/17 06:30 Alkaline Phosphatase 82 U/L (45-117) 12/04/17 06:30 Total Protein 6.8 g/dl (6.4-8.2) 12/04/17 06:30 Albumin 3.5 g/dl (3.4-5.0) 12/04/17 06:30 CARDIAC ENZYMES Creatine Kinase 220 IU/L (26-192) H 12/03/17 10:25 Troponin I < 0.02 ng/ml (0.00-0.05) 12/03/17 10:25 Assessment: This is a 47 year old female with PMHx of polysubstance abuse, hepatitis C, alcohol abuse, who presented to the ED with nausea and vomiting. Plan: 1) Nausea and vomiting - Resolved 2) Abdominal pain - CTAP without contrast: possible mild fatty infiltration of the liver. Tiny calcific density of the right hepatic lobe likely a calcified granuloma. Dilated common bile duct. No SBO. Imaging legal transcriptionist prelim report suggestive questionable segments of wall thickening of the colon - Discussed with Dr. Wyatt, MRCP ordered (patient refusing) - Liver ultrasound ordered, patient refused - Liver enzymes noted - Continue IV abx for now - F/u further recommendations by GI 2) Polysubstance abuse, alcohol abuse - No evidence of acute alcohol withdrawal 3) F/E/N: - Regular diet - Monitor electrolytes 4) Prophylaxis: - OOB ambulating 5) Dispo: - Once condition improves CODE STATUS: FULL CODE Visit type - Emergency Visit Emergency Visit: Yes ED Registration Date: 12/03/17 Care time: The patient presented to the Emergency Department on the above date and was hospitalized for further evaluation of their emergent condition. - New Patient This patient is new to me today: Yes Date on this admission: 12/05/17 - Critical Care Critical Care patient: No
[2017-12-05] MEDS ORDERED: CEFTRIAXONE 1 G/50 ML PREMIX 50 ML IVPB SCH (10:00)
[2017-12-05] MEDS ORDERED: PT OWN MED DRAWER 7, Y5N ONE (10:05)
[2017-12-05] MEDS: diphenhydrAMINE HCL 25 MG CAPSULE (FP) PO SCH (10:07)
[2017-12-05] MEDS: ARTIFICIAL TEARS (POLYVINYL ALCOHOL 1.4%) OPTH DROPS OU SCH (10:08)
[2017-12-05] MEDS: DIVALPROEX SODIUM 250 MG TABLET E.C. (FP) PO SCH (10:08)
[2017-12-05] MEDS: FLUTICASONE PROP 0.05% 16 GM NASAL SPRAY NS SCH (10:08)
[2017-12-05] MEDS: PANTOPRAZOLE 40 MG TABLET (FP) PO SCH (10:08)
[2017-12-05] MEDS: QUEtiapine FUMARATE 300 MG TABLET PO SCH (10:09)
[2017-12-05 10:16] VITALS: BP 112/82; PULSE 82; TEMP 98.2
--- NOTE | 2017-12-05 13:06 | PROC ---
Endoscopy Procedure Endoscopy procedure completed. Please see scanned procedure report. EGD
--- NOTE | 2017-12-05 14:00 | DS ---
Physical Examination Vital Signs: Vital Signs Temperature 98.2 F 12/05/17 10:00 Pulse Rate 82 12/05/17 10:00 Respiratory Rate 16 12/05/17 10:00 Blood Pressure 112/82 12/05/17 10:00 O2 Sat by Pulse Oximetry (%) 100 12/03/17 20:55 Labs: CBC, BMP 12/04/17 06:30 12/04/17 06:30 Discharge Summary Reason For Visit: INTRACTABLE VOMITING WITH NAUSEA Current Active Problems Alcoholic gastritis without bleeding (Acute) Elevated lipase (Acute) Epigastric abdominal pain (Acute) EtOH dependence (Acute) Pancreatitis (Acute) Uncontrollable nausea and vomiting (Acute) Hospital Course: Discussed with Dr. Wyatt who recommends patient discharged with outpatient follow-up. Scheduled for patient to follow-up with Dr. Wyatt on 12/12/17 at 1: 40pm Condition: Improved - Instructions Diet, Activity, Other Instructions: Please return to the ED with new, persistent, or worsening symptoms. Please follow-up with providers as indicated. You must abstain from all alcohol and illicit drugs. Referrals: Michael Hernandez MD [Staff Physician] - 1 Week Ishaan Wyatt MD [Staff Physician] - (Please follow-up with Dr. Wyatt on 12/12/17 at 1:40pm for further evaluation of your dilated common bile duct) Disposition: HOME - Home Medications Comprehensive Discharge Medication List: Ambulatory Orders Hypromellose 0.5% Opth Soln [Artificial Tears] 1 drop AU DAILY 07/18/17 Fluticasone Prop 0.05% Nasal [Flonase -] 1 spray NS DAILY #1 bottle 07/19/17 Gabapentin 100 mg PO TID #90 capsule 07/19/17 Quetiapine Fumarate [Seroquel] 300 mg PO BID #60 tablet 07/19/17 Methadone [Dolophine -] 80 mg PO DAILY@0600 tablet MDD 1 09/26/17 Pantoprazole Sodium [Protonix -] 40 mg PO DAILY #30 tablet.ec 09/26/17 Cyclobenzaprine HCl [Flexeril -] 5 mg PO TID tablet 11/04/17 Diphenhydramine [Benadryl Capsule -] 50 mg PO BID #60 capsule 11/07/17 Divalproex [Depakote -] 250 mg PO BID #60 tab.ec 11/07/17 Trazodone HCl [Desyrel -] 50 mg PO HS #30 tablet 11/07/17 Albuterol Sulfate Inhaler - [Ventolin HFA Inhaler -] 2 inh PO Q4H 11/10/17 Zolpidem Tartrate [Ambien] 5 mg PO HS PRN #0 tablet MDD 1 12/05/17
== END 2017-12-05 14:14 | disposition home or self-care (01) ==
LOC: JER 09:55 → JERBED 17:32 → J6S 21:28
PROVIDERS: ADMIT Hospitalist; ATTEND Registered Nurse
PROC: 3E0333Z Introduction of Anti-inflammatory into Peripheral Vein, Percutaneous Approach (ICD-10-PCS; principal; 2017-12-03)
PROC: 3E033NZ Introduction of Analgesics, Hypnotics, Sedatives into Peripheral Vein, Percutaneous Approach (ICD-10-PCS; 2017-12-03)
DX: K29.20 Alcoholic gastritis without bleeding (principal); K85.90 Acute pancreatitis without necrosis or infection, unspecified; R10.13 Epigastric pain; F10.20 Alcohol dependence, uncomplicated; F11.20 Opioid dependence, uncomplicated; F17.210 Nicotine dependence, cigarettes, uncomplicated; R74.9 Abnormal serum enzyme level, unspecified; B18.2 Chronic viral hepatitis C; F31.9 Bipolar disorder, unspecified
CPT/HCPCS: 36415; 74176-TC; 80053; 80307; 81003; 82150; 82550; 82553; 83690; 83735; 84484; 84703; 85025; 93005; 93010; 96365; 96366; 96367; 96375; 99285-25; G0378

== ENCOUNTER 2018-01-02 08:55 | Observation (INO) | payer OTHER ==
[2018-01-02] MEDS ORDERED: ONDANSETRON 4 MG/2 ML VIAL IVPB ONE (09:13)
[2018-01-02 09:18] VITALS: BMI 23.6
[2018-01-02] MEDS ORDERED: LACTATED RINGERS SOLUTION 1000 ML INFUS.BAG IV ONE (09:20)
[2018-01-02] MEDS ORDERED: METHADONE HCL 10 MG TABLET PO ONE (09:21)
[2018-01-02] MEDS ORDERED: ONDANSETRON 4 MG/2 ML VIAL ONE ×3 (09:28→15:20)
[2018-01-02] MEDS ORDERED: ONDANSETRON *ODT* 4 MG TABLET SL ONE (09:33)
[2018-01-02] MEDS ORDERED: ONDANSETRON *ODT* 4 MG TABLET ONE (09:33)
--- NOTE | 2018-01-02 09:50 | PDOC ---
Attending Attestation - Resident Resident Name: Herman Nunez - ED Attending Attestation I have performed the following: I have examined & evaluated the patient, The case was reviewed & discussed with the resident, I agree w/resident's findings & plan, Exceptions are as noted - HPI HPI: 01/02/18 09:51 47y F hx of polycusbstance abuse (etoh, heroin, on methadon), panceratitis, bipolar dz presents with 1 day of f/c, headache, n/v, assocaciated with epigastric abdominal pain. Vomiting is yellow/greenish. Pt sats she drinks frequently and often feels this way when she drinks. She also mentions that she skipped her methadone yesterday. Denies any hematemsis, bpr, melena. denies any cp, sob. on exam pt is uncomforgable appearing wretching/vomiting abd noted for mild epigastric tenderness no flank tenderness +dry mucus membranes ddx - panceratitis, gasritits, opiate withdrawal syndrome will ck labs fluids for hydration zofran for nausea will reassess consider imaging - Physicial Exam PE: 01/02/18 19:43 see above - Medical Decision Making 01/02/18 14:[address] abd neg for acut disesase pt stil vomiting and unable to tolerate oral intake will admit pt for persistent vomiting pt unabl eto take her methadone as she is unable to toleratee oral intak.
--- NOTE | 2018-01-02 10:05 | PDOC ---
History of Present Illness - General Chief Complaint: Pain Stated Complaint: ABD PAIN Time Seen by Provider: 01/02/18 09:11 History Source: Patient Exam Limitations: No Limitations - History of Present Illness Initial Comments: 01/02/18 09:59 Patient is a 47F with history of HCV, polysubstance abuse, on methodone, etoh abuse and pancreatitis here today with 16 hours of epigastric abdominal pain. Last drink yesterday, drinks a fifth of vodka per day. Patient states that she has associated vomiting, fevers, chills and headache. Denies blood in vomit and stool. Last bowel movement this morning. Last menstrual period "last month". Denies pain with urination. Patient has missed her last two methadone doses. Past History - Past Medical History Allergies/Adverse Reactions: Allergies Allergy/AdvReac Type Severity Reaction Status Date / Time metoclopramide HCl Allergy Severe dystonic Verified 01/02/18 09:17 [From Reglan] reaction prochlorperazine maleate Allergy Severe DYSTONIA Verified 01/02/18 09:17 [From Compazine] Home Medications: Ambulatory Orders Quetiapine Fumarate [Seroquel] 300 mg PO BID #60 tablet 07/19/17 Methadone [Dolophine -] 80 mg PO DAILY@0600 tablet MDD 1 09/26/17 traZODone HCL [Desyrel -] 50 mg PO HS #30 tablet 11/07/17 Divalproex Sodium [Depakote] 250 mg PO BID 01/02/18 Anemia: No Asthma: No Cancer: No Cardiac Disorders: No CVA: No COPD: No CHF: No Dementia: No Diabetes: No GI Disorders: No Disorders: No HTN: No Hypercholesterolemia: No Kidney Stones: No Liver Disease: Yes (HEP C) Psychiatric Problems: Yes (BIPOLAR) Seizures: Yes (unsure) Thyroid Disease: No Other medical history: Prancreatitis - Surgical History Abdominal Surgery: No Appendectomy: No Cardiac Surgery: No Cholecystectomy: No Lung Surgery: No Neurologic Surgery: No Orthopedic Surgery: No - Reproductive History (#): 13 Para: 11 PID: Yes - Immunization History Immunization Up to Date: No - Suicide/Smoking/Psychosocial Hx Smoking History: Current every day smoker Have you smoked in the past 12 months: Yes Number of Cigarettes Smoked Daily: 3 Cigars Per Day: 0 Information on smoking cessation initiated: No 'Breaking Loose' booklet given: 11/10/17 Hx Alcohol Use: Yes (drinks vodka daily) Drug/Substance Use Hx: No Substance Use Type: None, Marijuana Hx Substance Use Treatment: Yes (10/2017) Review of Systems - Review of Systems Comments:: 01/02/18 10:04 GENERAL/CONSTITUTIONAL: Positive for fever or chills. HEAD, EYES, EARS, NOSE AND THROAT: No change in vision. No sore throat. CARDIOVASCULAR: No chest pain . Positive for shortness of breath RESPIRATORY: No cough, wheezing, or hemoptysis. GASTROINTESTINAL: Positive for nausea, vomiting. Negative for diarrhea or constipation. GENITOURINARY: No dysuria, frequency, or change in urination. MUSCULOSKELETAL: No joint or muscle swelling or pain. No neck or back pain. SKIN: No rash NEUROLOGIC: Positive for headache. Negative for vertigo, loss of consciousness, or change in strength/sensation. HEMATOLOGIC/LYMPHATIC: No anemia, easy bleeding, or history of blood clots. ALLERGIC/IMMUNOLOGIC: No hives or skin allergy. *Physical Exam - Vital Signs Last Vital Signs Temp Pulse Resp BP Pulse Ox 99.8 F H 80 18 166/113 98 01/02/18 09:13 01/02/18 09:13 01/02/18 09:13 01/02/18 09:13 01/02/18 09:13 - Physical Exam Comments: 01/02/18 10:05 GENERAL: Awake, alert, and fully oriented, vomiting during exam HEAD: No signs of trauma, normocephalic, atraumatic EYES: PERRLA, EOMI, sclera anicteric, conjunctiva clear ENT: Auricles normal inspection, hearing grossly normal, nares patent, oropharynx clear without exudates. Dry mucosa NECK: Normal ROM, supple, no lymphadenopathy, JVD, or masses LUNGS: No distress, speaks full sentences, clear to auscultation bilaterally HEART: Regular rate and rhythm, normal S1 and S2, no murmurs, rubs or gallops, peripheral pulses normal and equal bilaterally. ABDOMEN: Diffusely tender, normoactive bowel sounds. No guarding, no rebound. EXTREMITIES: Normal inspection, Normal range of motion, no edema. No clubbing or cyanosis. NEUROLOGICAL: Cranial nerves II through XII grossly intact. Normal speech, no focal sensorimotor deficits SKIN: Warm, Dry, normal turgor, no rashes or lesions noted. ED Treatment Course - LABORATORY CBC & Chemistry Diagram: 01/02/18 10:06 01/02/18 10:02 - RADIOLOGY Radiology Studies Ordered: Category Date Time Status ABDOMEN & PELVIS CT WITH CONTR [CT] Stat CT Scan 01/02/18 09:20 Ordered - Medications Given in the ED: ED Medications Discontinued Medications Generic Name Dose Route Start Last Admin Trade Name [place] PRN Reason Stop Dose Admin Lactated Ringer's 1,000 ml 01/02/18 09:20 01/02/18 09:47 Lactated Ringers Solution IV 01/02/18 09:21 1,000 ml ONCE ONE Administration Ondansetron HCl 4 mg 01/02/18 09:13 01/02/18 09:48 Zofran Injection IVPB 01/02/18 09:14 4 mg ONCE ONE Administration Ondansetron HCl 4 mg 01/02/18 09:33 01/02/18 09:35 Zofran Odt - SL 01/02/18 09:34 4 mg ONCE ONE Administration Medical Decision Making - Medical Decision Making 01/02/18 10:06 Patient is a 47F with history of pancreatitis, HCV, polysubstance abuse (opiates , etoh) here today complaining of abdominal pain and vomiting. Vital signs stable. Differential diagnosis includes, but is not limited to: pancreatitis, opiate withdrawal, gastritis. Will treat with 1L LR, zofran, methadone. Patient' s methadone dose confirmed via call to [facility] [place]. Will evaluate with cbc, cmp, lipase, ua, upreg, ct abd/pelvis with iv contrast. 01/02/18 10:09 EKG shows normal sinus rhythm, normal rate (71). Normal axis. No st elevations/ depressions. Normal r-wave progression. No significant t wave abnormalities. 01/02/18 10:21 Patient is continuing to vomit, unable to take methadone PO. In significant pain. Will treat with morphine and additional zofran. 01/02/18 11:26 Patient still complaining of pain, now has SBP of 185. Patient has not drank for two days, will give ativan for possible alcohol withdrawal. 01/02/18 12:31 Laboratory Tests 01/02/18 01/02/18 01/02/18 10:02 10:06 10:06 WBC 7.1 D Hgb 13.2 Hct 38.3 Plt Count 168 D INR 1.00 BUN 10 Creatinine 0.6 Lipase 326 Serum , Qual 01/02/18 10:06 WBC Hgb Hct Plt Count INR BUN Creatinine Lipase Serum , Qual Negative CBC normal. INR normal. Kidney function normal. Lipase normal. negative. Pending CT. 01/02/18 13:05 CT abd/pelvis significant for only CBD dilated to 8mm, 9mm last month. Patient still not tolerating PO. 01/02/18 13:42 Admitted to obs via Dr Rossi. *DC/Admit/Observation/Transfer Diagnosis at time of Disposition: Intractable vomiting - Discharge Dispostion Condition at time of disposition: Stable Admit: Yes - Referrals - Patient Instructions - Post Discharge Activity
[2018-01-02 10:19] LABS: BASO % 0.5 % (0-2.0); EOS % 0.2 % (0-4.5); HEMATOCRIT 38.3 % (32.4-45.2); HEMOGLOBIN 13.2 GM/dL (10.7-15.3); LYMPH % 18.6 % (8-40); MCH 33.7 pg (25.7-33.7); MCHC 34.5 g/dl (32.0-36.0); MEAN CELL VOLUME 97.7 fl (80-96); MEAN PLT VOLUME 9.9 fl (7.5-11.1); MONO % 5.8 % (3.8-10.2); NEUT % 74.9 % (42.8-82.8); PLATELET COUNT 168 K/MM3 (134-434); RBC 3.92 M/mm3 (3.60-5.2); RDW 12.9 % (11.6-15.6); WHITE BLOOD COUNT 7.1 K/mm3 (4.0-10.0)
[2018-01-02] MEDS ORDERED: ONDANSETRON 4 MG/2 ML VIAL IVPUSH ONE (10:20)
[2018-01-02] MEDS ORDERED: morphine CARPU-JECT 4 MG/1 ML DISP.SYRIN IVPUSH ONE (10:21)
[2018-01-02] MEDS ORDERED: MORPHINE SULFATE 10 MG/1 ML *VIAL ONE (10:21)
[2018-01-02 10:24] LABS: PROTHROMBIN TIME (PATIENT) 11.3 SEC (9.98-11.88)
[2018-01-02 10:30] LABS: ALBUMIN 3.8 g/dl (3.4-5.0); ALK PHOS 95 U/L (45-117); ANION GAP 15 (8-16); BILIRUBIN,TOTAL 0.9 mg/dL (0.2-1.0); BLOOD UREA NITROGEN 10 mg/dL (7-18); CALCIUM 8.6 mg/dL (8.5-10.1); CHLORIDE 103 mmol/L (98-107); CO2 20 mmol/L (21-32); CREATININE 0.6 mg/dL (0.55-1.02); GLUCOSE,RANDOM 180 mg/dL (74-106); SGPT/ALT 50 U/L (12-78); SODIUM 138 mmol/L (136-145); TOT PROT 7.9 g/dl (6.4-8.2)
--- NOTE | 2018-01-02 10:33 | EKG ---
Test Reason : Blood Pressure : / mmHG Vent. 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
[2018-01-02 10:36] LABS: LIPASE 326 U/L (73-393)
[2018-01-02 10:37] LABS: SGOT/AST 66 U/L (15-37)
[2018-01-02] MEDS ORDERED: LORazepam 2 MG/ML SDV VIAL ONE (11:27)
--- NOTE | 2018-01-02 13:52 | CON.GI ---
Consult Consult Specialty:: GI Reason for Consultation:: Vomiting - History of Present Illness History of Present Illness: Chart reviewed per ED intake: Patient is a 47F with history of HCV, polysubstance abuse, on methodone, etoh abuse and pancreatitis here today with 16 hours of epigastric abdominal pain. Last drink yesterday, drinks a fifth of vodka per day. Patient states that she has associated vomiting, fevers, chills and headache. Denies blood in vomit and stool. Last bowel movement this morning. Missed last 2 methadone doses. CBD 8 mm on imaging A the time of this encounter, nauseous and belching. Not able to produce gastric content. No diarrhea, jaundice, heartburn, hematemesis, melena, hematochezia. No hematemesis reported yesterday at home, or today in ED. - History Source History Provided By: Patient, Significant Other, Medical Record - Past Medical History Gastrointestinal: Yes: Pancreatitis Hepatobiliary: Yes: Hepatitis C ...LMP: 11/04/17 Infectious Disease: Yes: HIV Psych: Yes: Addictions, Bipolar - Past Surgical History Past Surgical History: Yes: None - Alcohol/Substance Use Hx Alcohol Use: Yes (drinks vodka daily) Number of Drinks Daily: 4 (4 pints a day) History of Substance Use: reports: Heroin - Smoking History Smoking history: Current every day smoker Have you smoked in the past 12 months: Yes Aproximately how many cigarettes per day: 3 - Social History ADL: Independent History of Recent Travel: No Home Medications - Allergies Allergies/Adverse Reactions: Allergies Allergy/AdvReac Type Severity Reaction Status Date / Time metoclopramide HCl Allergy Severe dystonic Verified 01/02/18 09:17 [From Reglan] reaction prochlorperazine maleate Allergy Severe DYSTONIA Verified 01/02/18 09:17 [From Compazine] - Home Medications Home Medications: Ambulatory Orders Quetiapine Fumarate [Seroquel] 300 mg PO BID #60 tablet 07/19/17 Methadone [Dolophine -] 80 mg PO DAILY@0600 tablet MDD 1 09/26/17 traZODone HCL [Desyrel -] 50 mg PO HS #30 tablet 11/07/17 Divalproex Sodium [Depakote] 250 mg PO BID 01/02/18 Family Disease History - Family Disease History Family Disease History: Diabetes: Grandparent (mgm - dm, htn), Other: Father ( CVA), Mother (alive, well), Brother ( AIDS), Sister ( THROAT CA) Review of Systems Findings/Remarks: as per HPI, H&P Physical Exam-GI Vital Signs: Vital Signs Temperature 99.4 F 01/02/18 13:28 Pulse Rate 83 01/02/18 13:28 Respiratory Rate 18 01/02/18 13:28 Blood Pressure 163/115 01/02/18 13:28 O2 Sat by Pulse Oximetry (%) 99 01/02/18 13:28 Constitutional: Yes: Cachectic, Mild Distress, Pallor, Thin. No: Diaphoresis Eyes: No: Sclera Icterus HENT: Yes: Atraumatic Neck: Yes: Supple Cardiovascular: Yes: Regular Rate and Rhythm. No: Bradycardia, Tachycardia Respiratory: Yes: Regular Gastrointestinal Inspection: No: Ascites, Distention ...Palpate: Yes: Soft. No: Firm/Rigid, Guarding, Tenderness, Tenderness, Rebound Edema: No Neurological: Yes: Alert. No: Asterixis, Confusion, Tremors Labs: CBC, BMP 01/02/18 10:06 01/02/18 10:02 INR, PTT INR 1.00 (0.82-1.09) 01/02/18 10:06 Laboratory Tests 01/02/18 01/02/18 01/02/18 10:02 10:06 10:06 WBC 7.1 D RBC 3.92 Hgb 13.2 Hct 38.3 MCV 97.7 H MCH 33.7 MCHC 34.5 RDW 12.9 Plt Count 168 D MPV 9.9 D Neutrophils % 74.9 D Lymphocytes % 18.6 D Monocytes % 5.8 Eosinophils % 0.2 Basophils % 0.5 PT with INR 11.30 INR 1.00 Sodium 138 Potassium 4.0 Chloride 103 Carbon Dioxide 20 L Anion Gap 15 BUN 10 Creatinine 0.6 Creat Clearance w eGFR > 60 Random Glucose 180 H Calcium 8.6 Total Bilirubin 0.9 AST 66 H ALT 50 Alkaline Phosphatase 95 Total Protein 7.9 Albumin 3.8 Lipase 326 Serum , Qual 01/02/18 10:06 WBC RBC Hgb Hct MCV MCH MCHC RDW Plt Count MPV Neutrophils % Lymphocytes % Monocytes % Eosinophils % Basophils % PT with INR INR Sodium Potassium Chloride Carbon Dioxide Anion Gap BUN Creatinine Creat Clearance w eGFR Random Glucose Calcium Total Bilirubin AST ALT Alkaline Phosphatase Total Protein Albumin Lipase Serum , Qual Negative Imaging - Results Cat Scan: Report Reviewed MRI: Pending Problem List - Problems (1) Intractable vomiting Code(s): R11.10 - VOMITING, UNSPECIFIED (2) Alcohol dependence with uncomplicated withdrawal Code(s): F10.230 - ALCOHOL DEPENDENCE WITH WITHDRAWAL, UNCOMPLICATED (3) Alcoholic gastritis without bleeding Code(s): K29.20 - ALCOHOLIC GASTRITIS WITHOUT BLEEDING (4) EtOH dependence Code(s): F10.20 - ALCOHOL DEPENDENCE, UNCOMPLICATED (5) Methadone maintenance therapy patient Code(s): F11.20 - OPIOID DEPENDENCE, UNCOMPLICATED (6) Hepatitis C Code(s): B19.20 - UNSPECIFIED VIRAL HEPATITIS C WITHOUT HEPATIC COMA Qualifiers: Assessment/Plan Nausea and vomiting x 1.5 days. Urine negative. Hx of HCV. Alcohol abuse. Actively drinking up until yesterday. Missed 2 last doses of methadone. CT A/P showed mildly bilated CBD with normal LAP, bili, ALT. AST x 2 nortmal. Normal PLT, PT, INR. Likely doesn't have liver cirrhosis. No overt signs of GI bleeding. Alcohol withdrawal protocol Monitor electrolytes Antiemetics PRN PPI IVPB bid MRCP Bowel rest IVF Viral hepatitis status Substance abuse counseling
[2018-01-02] MEDS ORDERED: HYDROmorphone HCL CARPU-JECT 1 MG/1 ML DISP.SYRIN IVPUSH ONE (15:17)
[2018-01-02] MEDS ORDERED: HYDROmorphone HCl/Pf 2 MG/ML VIAL - FOR OR PYXIS USE ONE (15:20)
[2018-01-02] MEDS: ONDANSETRON 4 MG/2 ML VIAL IVPUSH PRN ×2 (15:28→20:51)
[2018-01-02] MEDS ORDERED: SODIUM CHLORIDE 1,000 ML IV ONE (15:42)
[2018-01-02] MEDS ORDERED: METHADONE HCL 40 MG DISPERSABLE TABLET ONE (15:48)
--- NOTE | 2018-01-02 17:23 | HP ---
Admitting History and Physical - Primary Care Physician PCP: Jenelle Rossi - Admission Chief Complaint: abdominal pain History of Present Illness: 47F with history of HCV, polysubstance abuse, on methodone, etoh abuse and pancreatitis here today with 16 hours of epigastric abdominal pain. Last drink yesterday, drinks a fifth of vodka per day. Patient states that she has associated vomiting, fevers, chills and headache. Denies blood in vomit and stool. - Past Medical History Gastrointestinal: Yes: Pancreatitis Hepatobiliary: Yes: Hepatitis C ...LMP: 11/04/17 ...: No ( test done in ED) Infectious Disease: Yes: HIV, Other (hcv) Psych: Yes: Addictions, Bipolar - Past Surgical History Past Surgical History: Yes: None - Smoking History Smoking history: Current every day smoker Have you smoked in the past 12 months: Yes Aproximately how many cigarettes per day: 3 - Alcohol/Substance Use Hx Alcohol Use: Yes (drinks vodka daily) Number of Drinks Daily: 4 (4 pints a day) History of Substance Use: reports: Heroin - Social History ADL: Independent History of Recent Travel: No Home Medications - Allergies Allergies/Adverse Reactions: Allergies Allergy/AdvReac Type Severity Reaction Status Date / Time metoclopramide HCl Allergy Severe dystonic Verified 01/02/18 09:17 [From Reglan] reaction prochlorperazine maleate Allergy Severe DYSTONIA Verified 01/02/18 09:17 [From Compazine] - Home Medications Home Medications: Ambulatory Orders Quetiapine Fumarate [Seroquel] 300 mg PO BID #60 tablet 07/19/17 Methadone [Dolophine -] 80 mg PO DAILY@0600 tablet MDD 1 09/26/17 traZODone HCL [Desyrel -] 50 mg PO HS #30 tablet 11/07/17 Divalproex Sodium [Depakote] 250 mg PO BID 01/02/18 Family Disease History - Family Disease History Family Disease History: Diabetes: Grandparent (mgm - dm, htn), Other: Father ( CVA), Mother (alive, well), Brother ( AIDS), Sister ( THROAT CA) Physical Examination Vital Signs: Vital Signs Temperature 100.3 F H 01/02/18 17:05 Pulse Rate 93 H 01/02/18 17:05 Respiratory Rate 20 01/02/18 17:05 Blood Pressure 168/119 01/02/18 17:05 O2 Sat by Pulse Oximetry (%) 98 01/02/18 15:29 Constitutional: Yes: Anxious HENT: Yes: Atraumatic Neck: Yes: Supple Cardiovascular: Yes: Regular Rate and Rhythm Respiratory: Yes: CTA Bilaterally Gastrointestinal: Yes: Normal Bowel Sounds Extremities: Yes: WNL Neurological: Yes: Alert, Oriented Labs: CBC, BMP 01/02/18 10:06 01/02/18 10:02 Problem List - Problems (1) Intractable vomiting Assessment/Plan: npo, ivf, prn zofran gi on case Code(s): R11.10 - VOMITING, UNSPECIFIED (2) Alcohol dependence with uncomplicated withdrawal Assessment/Plan: monitor can start on librium once vomitting under control detox consult Code(s): F10.230 - ALCOHOL DEPENDENCE WITH WITHDRAWAL, UNCOMPLICATED (3) Alcoholic gastritis without bleeding Assessment/Plan: iv protonix h/h stable Code(s): K29.20 - ALCOHOLIC GASTRITIS WITHOUT BLEEDING (4) Epigastric abdominal pain Assessment/Plan: prn pain meds Code(s): R10.13 - EPIGASTRIC PAIN (5) EtOH dependence Code(s): F10.20 - ALCOHOL DEPENDENCE, UNCOMPLICATED (6) Hypertension Code(s): I10 - ESSENTIAL (PRIMARY) HYPERTENSION Qualifiers: Hypertension type: unspecified secondary hypertension Qualified Code(s): I15.9 - Secondary hypertension, unspecified; I15 - Secondary hypertension (7) Bipolar disorder Assessment/Plan: on meds Code(s): F31.9 - BIPOLAR DISORDER, UNSPECIFIED (8) GERD (gastroesophageal reflux disease) Assessment/Plan: on protonix Code(s): K21.9 - GASTRO-ESOPHAGEAL REFLUX DISEASE WITHOUT ESOPHAGITIS Qualifiers: Esophagitis presence: without esophagitis Qualified Code(s): K21.9 - Gastro -esophageal reflux disease without esophagitis (9) Methadone maintenance therapy patient Assessment/Plan: continue same dose Code(s): F11.20 - OPIOID DEPENDENCE, UNCOMPLICATED (10) Bipolar II disorder Code(s): F31.81 - BIPOLAR II DISORDER Assessment/Plan Laboratory Tests 01/02/18 01/02/18 01/02/18 10:02 10:06 10:06 WBC 7.1 D RBC 3.92 Hgb 13.2 Hct 38.3 MCV 97.7 H MCH 33.7 MCHC 34.5 RDW 12.9 Plt Count 168 D MPV 9.9 D Neutrophils % 74.9 D Lymphocytes % 18.6 D Monocytes % 5.8 Eosinophils % 0.2 Basophils % 0.5 PT with INR 11.30 INR 1.00 Sodium 138 Potassium 4.0 Chloride 103 Carbon Dioxide 20 L Anion Gap 15 BUN 10 Creatinine 0.6 Creat Clearance w eGFR > 60 Random Glucose 180 H Calcium 8.6 Total Bilirubin 0.9 AST 66 H ALT 50 Alkaline Phosphatase 95 Total Protein 7.9 Albumin 3.8 Lipase 326 Serum , Qual 01/02/18 10:06 WBC RBC Hgb Hct MCV MCH MCHC RDW Plt Count MPV Neutrophils % Lymphocytes % Monocytes % Eosinophils % Basophils % PT with INR INR Sodium Potassium Chloride Carbon Dioxide Anion Gap BUN Creatinine Creat Clearance w eGFR Random Glucose Calcium Total Bilirubin AST ALT Alkaline Phosphatase Total Protein Albumin Lipase Serum , Qual Negative Active Medications Generic Name Dose Route Start Last Admin Trade Name Freq PRN Reason Stop Dose Admin Ondansetron HCl 4 mg 01/02/18 14:47 01/02/18 15:28 Zofran Injection IVPUSH 4 mg Q4H PRN Administration NAUSEA AND/OR VOMITING Pantoprazole Sodium 40 mg 01/02/18 22:00 Protonix Iv IVPUSH BID GONZALEZ
[2018-01-02] MEDS ORDERED: HYDROmorphone HCL CARPU-JECT 1 MG/1 ML DISP.SYRIN IVPB PRN (17:27)
[2018-01-02] MEDS: SODIUM CHLORIDE 1,000 ML IV SCH (18:05)
[2018-01-02] MEDS: morphine SULFATE 4 MG/ML VIAL IVPUSH PRN ×2 (18:21→23:28)
[2018-01-02] MEDS ORDERED: PANTOPRAZOLE SODIUM 40 MG VIAL IVPUSH SCH (22:00)
[2018-01-03] MEDS: morphine SULFATE 4 MG/ML VIAL IVPUSH PRN (03:57)
[2018-01-03 04:31] LABS: URINE APPEARANCE CLEAR; URINE BILIRUBIN NEGATIVE (NEGATIVE); URINE BLOOD NEGATIVE (NEGATIVE); URINE COLOR YELLOW; URINE GLUCOSE (UA) NEGATIVE (NEGATIVE); URINE KETONE 2+ (NEGATIVE); URINE LEUK ESTERASE NEGATIVE (NEGATIVE); URINE NITRITE NEGATIVE (NEGATIVE); URINE UROBILINOGEN NEGATIVE mg/dL (0.2-1.0)
[2018-01-03 04:32] LABS: HCG,QUALITATIVE URINE NEGATIVE; URINE PROTEIN 2+ (NEGATIVE)
[2018-01-03 04:33] LABS: EPI CELLS RARE /HPF (FEW); URINE MUCUS RARE
[2018-01-03] MEDS: ONDANSETRON 4 MG/2 ML VIAL IVPUSH PRN (05:38)
[2018-01-03] MEDS: METHADONE HCL 40 MG DISPERSABLE TABLET PO SCH (06:22)
[2018-01-03 08:40] LABS: BASO % 0.5 % (0-2.0); EOS % 0.1 % (0-4.5); HEMATOCRIT 40.5 % (32.4-45.2); HEMOGLOBIN 14.1 GM/dL (10.7-15.3); LYMPH % 21.4 % (8-40); MCH 34.2 pg (25.7-33.7); MCHC 34.9 g/dl (32.0-36.0); MEAN CELL VOLUME 97.9 fl (80-96); MEAN PLT VOLUME 9.9 fl (7.5-11.1); MONO % 11.2 % (3.8-10.2); NEUT % 66.8 % (42.8-82.8); PLATELET COUNT 168 K/MM3 (134-434); RBC 4.14 M/mm3 (3.60-5.2); RDW 12.9 % (11.6-15.6); WHITE BLOOD COUNT 7.8 K/mm3 (4.0-10.0)
--- NOTE | 2018-01-03 08:43 | CONSULT ---
Consult Detox [facility] Reason for Current Admission/Consult: substance use Referred by:: juliet meyer MD - History History of Present Illness: 47 YO F W H/O OPIOID USE DISORDER ON otp 80MG DAILY, UNABLE TO HOLD METHADONE DOWN X2 DAYS BECASUE OF INTRACTABLE NAUSEA AND VOMITING ADMITTED FOR WORK UP ASSOCIATED WITH SEVER EPIGASTRIC ABDO PAIN. pmhx GASTRITIS, BIPOLR DO AND PANCREATITIS. C/O OPIOID AND ALCOHOL WITHDRAWL SX - History Source History Provided By: Patient, Medical Record, Caregiver - Alcohol/Substance Use Hx Alcohol Use: Yes (drinks vodka daily) Hx Substance Use: Yes Hx Substance Use Treatment: Yes (otp 80MG METHADONE DAILY) - Current Drug/Alcohol Use Alcohol Route: Oral Frequency: Daily Amount used: 1-2 PINTS DAILY Age of first use: 17 Date of Last Use: 01/01/18 - Past Medical History Gastrointestinal: Yes: Pancreatitis Hepatobiliary: Yes: Hepatitis C ...LMP: 11/04/17 ...: No ( test done in ED) Infectious Disease: Yes: HIV Psych: Yes: Addictions, Bipolar - Past Surgical History Past Surgical History: Yes: None - Significant Medical Findings: 47 YO F W H/O oud ON OTP 80MG METHADONE DAILY, LDM TODAY AFTER UNABLE TO HOLD DOWN METHADONE X2 DAYS ADMITTED FOR W/U INTRACTABLE NAAND VOMITING ASSOCIATED W ABDO PAIN MOST LIKELY 2/2 TO ALCOHOL USE , DRINKS VODKA DAILY WITH ALCOHOL WITHDRWAL SX WHEN SHE DOES NOT DRINK. NO H/O SEIZURES OR dts. NOW IN ALCOHOL WITHDRAWAL, HYPERTENSIVE AND TACHYCARDIC, PROBALBY MIXED WITH OPIOID WITHDRWAL SHE HAS BEEN UNBLE TO KEEP METHADONE DOWN UNTIL HTIS am. COWS - Scale Resting Pulse: 1= [place] 81-100 Sweatin= Chills/Flushing Restless Observation: 1= Difficult to Sit Still Pupil Size: 1= Pupils >than Normal Bone or Joint Aches: 2= Severe Diffuse Aches Runny Nose/ Eye Tearin= Nasal Congestion GI Upset > 30mins: 3= Vomiting/Diarrhea Tremor Observation: 2= Slight Tremor Visible Yawning Observation: 0= None Anxiety or Irritability: 2=Irritable/Anxious Goose Flesh Skin: 3=Piloerection COWS Score: 17 CIWA Score - CIWA Score Nausea/Vomitin-Int. Nausea w/Dry Heave Muscle Tremors: 3 Anxiety: 4-Mod. Anxious/Guarded Agitation: 4-Moderately Restless Paroxysmal Sweats: 3 Orientation: 0-Oriented Tacttile Disturbances: 0-None Auditory Disturbances: 0-None Visual Disturbances: 0-None Headache: 0-None Present CIWA-Ar Total Score: 18 Assessment Plan - Diagnosis (1) Intractable vomiting Status: Acute (2) Alcohol dependence with uncomplicated withdrawal Status: Acute (3) Alcoholic gastritis without bleeding Status: Acute (4) Epigastric abdominal pain Status: Acute (5) Methadone maintenance therapy patient Status: Chronic Comment: [facility] methadone program 80 mg po daily verification pending (6) Bipolar II disorder Status: Suspected (7) Hepatitis C Status: Resolved Qualifiers: - Plan Plan: CHART IMAGING, LABS REVIEWED, PATIENT EXAMINED AND HISTORYY TAKEN, CARE DISCUSSED WITH MEDICAL TEAM: RECOMMEND: 1. LIBRIUM DETOX PROTOCOL 2. CONT MFOLLOW UP REHAB OR AT otp WHEN MEDICALLY STABLEETHADONE 80MG DAILY 3. CLEAR FLUIDS, VITAMINS ORDERED 4. ABDO PAIN, NA AND V WORK UP PER PRIMARY TEAM, MOST LIKELY RELATED TO ALCOHOL USE 5. FOLLOW UP INPATIENT REHAB OR OTP PER PATIENT WISHES WHEN STABLE. - Medication Detox Regimen/Protocol: Librium
[2018-01-03] MEDS ORDERED: ONDANSETRON *ODT* 4 MG TABLET SL PRN (08:44)
[2018-01-03] MEDS ORDERED: ONDANSETRON *ODT* 4 MG TABLET SL ONE (08:44)
[2018-01-03] MEDS ORDERED: chlordiazePOXIDE HCL 25 MG CAPSULE PO ONE (09:46)
[2018-01-03] MEDS ORDERED: chlordiazePOXIDE HCL 25 MG CAPSULE PO PRN (09:46)
[2018-01-03] MEDS ORDERED: HYDROmorphone HCL CARPU-JECT 1 MG/1 ML DISP.SYRIN IVPUSH PRN (10:09)
[2018-01-03] MEDS: cloNIDine HCL 0.1 MG TABLET PO SCH ×2 (10:20→21:41)
[2018-01-03] MEDS: PRENATAL VITAMINS W/ FOLIC ACID TABLET (FP) PO SCH (11:35)
[2018-01-03] MEDS: SODIUM CHLORIDE 1,000 ML IV SCH (11:36)
[2018-01-03] MEDS: PANTOPRAZOLE SODIUM 40 MG VIAL IVPUSH SCH ×2 (11:36→21:42)
[2018-01-03] MEDS ORDERED: morphine CARPU-JECT 10 MG/1 ML DISP.SYRIN IVPUSH PRN (13:55)
[2018-01-03] MEDS: chlordiazePOXIDE HCL 25 MG CAPSULE PO SCH ×3 (14:08→23:10)
--- NOTE | 2018-01-03 14:17 | PN ---
Progress Note, Physician History of Present Illness: pain much better wants to eat - Current Medication List Current Medications: Active Medications Chlordiazepoxide HCl (Librium -) 50 mg PO [id number] [facility] Stop: 01/04/18 05:01 Last Admin: 01/03/18 14:08 Dose: Not Given Chlordiazepoxide HCl (Librium -) 25 mg PO [id number] [facility] Stop: 01/05/18 05:01 Chlordiazepoxide HCl (Librium -) 15 mg PO [id number] [facility] Stop: 01/06/18 05:01 Chlordiazepoxide HCl (Librium -) 25 mg PO Q4H PRN PRN Reason: WITHDRAWAL(CONT SUBST) Stop: 01/06/18 09:45 Clonidine (Catapres -) 0.1 mg PO BID [facility] Last Admin: 01/03/18 10:20 Dose: 0.1 mg Sodium Chloride (Normal Saline -) 1,000 mls @ 100 mls/hr IV ASDIR [facility] Last Admin: 01/03/18 11:36 Dose: 100 mls/hr Methadone HCl (Dolophine -) 80 mg PO DAILY@0600 [facility] Last Admin: 01/03/18 06:22 Dose: 80 mg Morphine Sulfate (Morphine Injection -) 10 mg IVPUSH Q6H PRN PRN Reason: PAIN LEVEL 6-10 Ondansetron HCl (Zofran Odt -) 8 mg SL Q6H PRN PRN Reason: NAUSEA AND/OR VOMITING Pantoprazole Sodium (Protonix Iv) 20 mg IVPUSH BID [facility] Last Admin: 01/03/18 11:36 Dose: 20 mg Multivit/Folic Acid/Iron ( Vitamins (Sjr) -) 1 tab PO DAILY [facility] Last Admin: 01/03/18 11:35 Dose: 1 tab Thiamine HCl (Vitamin B1 -) 100 mg PO HS [facility] Zolpidem Tartrate (Ambien -) 10 mg PO HS PRN PRN Reason: INSOMNIA - Objective Vital Signs: Vital Signs Temperature 98.6 F 01/03/18 09:00 Pulse Rate 75 01/03/18 09:00 Respiratory Rate 18 01/03/18 09:00 Blood Pressure 123/87 01/03/18 09:00 O2 Sat by Pulse Oximetry (%) 97 01/03/18 09:00 HENT: Yes: Atraumatic Neck: Yes: Supple Cardiovascular: Yes: Regular Rate and Rhythm Respiratory: Yes: CTA Bilaterally Gastrointestinal: Yes: Normal Bowel Sounds Extremities: Yes: WNL Neurological: Yes: Alert, Oriented Labs: CBC, BMP 01/03/18 08:05 01/02/18 10:02 INR, PTT INR 1.00 (0.82-1.09) 01/02/18 10:06 Problem List - Problems (1) Intractable vomiting Assessment/Plan: pen zofran feeling much better Code(s): R11.10 - VOMITING, UNSPECIFIED (2) Alcohol dependence with uncomplicated withdrawal Assessment/Plan: on librium detox consult Code(s): F10.230 - ALCOHOL DEPENDENCE WITH WITHDRAWAL, UNCOMPLICATED (3) Alcoholic gastritis without bleeding Assessment/Plan: iv protonix h/h stable Code(s): K29.20 - ALCOHOLIC GASTRITIS WITHOUT BLEEDING (4) Epigastric abdominal pain Code(s): R10.13 - EPIGASTRIC PAIN (5) EtOH dependence Code(s): F10.20 - ALCOHOL DEPENDENCE, UNCOMPLICATED (6) Hypertension Code(s): I10 - ESSENTIAL (PRIMARY) HYPERTENSION Qualifiers: Hypertension type: unspecified secondary hypertension Qualified Code(s): I15.9 - Secondary hypertension, unspecified; I15 - Secondary hypertension (7) Bipolar disorder Code(s): F31.9 - BIPOLAR DISORDER, UNSPECIFIED (8) GERD (gastroesophageal reflux disease) Code(s): K21.9 - GASTRO-ESOPHAGEAL REFLUX DISEASE WITHOUT ESOPHAGITIS Qualifiers: Esophagitis presence: without esophagitis Qualified Code(s): K21.9 - Gastro -esophageal reflux disease without esophagitis (9) Methadone maintenance therapy patient Code(s): F11.20 - OPIOID DEPENDENCE, UNCOMPLICATED (10) Bipolar II disorder Code(s): F31.81 - BIPOLAR II DISORDER
[2018-01-03] MEDS ORDERED: MORPHINE SULFATE 10 MG/1 ML *VIAL IVPUSH PRN (14:27)
[2018-01-03] MEDS: MORPHINE SULFATE 10 MG/1 ML *VIAL IVPUSH PRN (20:28)
[2018-01-03] MEDS: THIAMINE HCL 100 MG TABLET (FP) PO SCH (21:42)
[2018-01-03] MEDS: ZOLPIDEM TARTRATE 5 MG TABLET PO PRN (23:09)
[2018-01-04] MEDS: MORPHINE SULFATE 10 MG/1 ML *VIAL IVPUSH PRN ×4 (02:38→19:31)
[2018-01-04] MEDS: chlordiazePOXIDE HCL 25 MG CAPSULE PO SCH ×4 (05:32→22:41)
[2018-01-04] MEDS: METHADONE HCL 40 MG DISPERSABLE TABLET PO SCH (05:32)
[2018-01-04 08:28] LABS: BASO % 0.4 % (0-2.0); EOS % 1.3 % (0-4.5); HEMATOCRIT 40.2 % (32.4-45.2); LYMPH % 29.6 % (8-40); MCH 34.2 pg (25.7-33.7); MCHC 34.8 g/dl (32.0-36.0); MEAN CELL VOLUME 98.3 fl (80-96); MEAN PLT VOLUME 10.4 fl (7.5-11.1); MONO % 10.7 % (3.8-10.2); PLATELET COUNT 142 K/MM3 (134-434); RBC 4.09 M/mm3 (3.60-5.2); RDW 12.8 % (11.6-15.6); WHITE BLOOD COUNT 5.2 K/mm3 (4.0-10.0)
[2018-01-04 08:34] LABS: ALBUMIN 3.5 g/dl (3.4-5.0); ANION GAP 9 (8-16); BLOOD UREA NITROGEN 14 mg/dL (7-18); CALCIUM 8.2 mg/dL (8.5-10.1); CHLORIDE 102 mmol/L (98-107); CO2 24 mmol/L (21-32); GLUCOSE,RANDOM 95 mg/dL (74-106); POTASSIUM 3.5 mmol/L (3.5-5.1); SODIUM 135 mmol/L (136-145)
[2018-01-04 08:38] LABS: ALK PHOS 84 U/L (45-117); BILIRUBIN,DIRECT 0.3 mg/dL (0.0-0.2); BILIRUBIN,TOTAL 0.8 mg/dL (0.2-1.0); CREATININE 0.8 mg/dL (0.55-1.02); SGOT/AST 56 U/L (15-37); SGPT/ALT 45 U/L (12-78); TOT PROT 7.2 g/dl (6.4-8.2)
[2018-01-04] MEDS ORDERED: PT OWN MED DRAWER 7, Y5N ONE (09:01)
[2018-01-04] MEDS: PANTOPRAZOLE SODIUM 40 MG VIAL IVPUSH SCH ×2 (09:04→21:10)
[2018-01-04] MEDS: PRENATAL VITAMINS W/ FOLIC ACID TABLET (FP) PO SCH (09:04)
[2018-01-04] MEDS: cloNIDine HCL 0.1 MG TABLET PO SCH ×2 (09:04→21:09)
--- NOTE | 2018-01-04 09:35 | PN ---
Progress Note, Physician History of Present Illness: tolerating diet - Current Medication List Current Medications: Active Medications Chlordiazepoxide HCl (Librium -) 25 mg PO [id number] Stop: 01/05/18 05:01 Chlordiazepoxide HCl (Librium -) 15 mg PO [id number] Stop: 01/06/18 05:01 Chlordiazepoxide HCl (Librium -) 25 mg PO Q4H PRN PRN Reason: WITHDRAWAL(CONT SUBST) Stop: 01/06/18 09:45 Clonidine (Catapres -) 0.1 mg PO BID [facility] Last Admin: 01/04/18 09:04 Dose: 0.1 mg Methadone HCl (Dolophine -) 80 mg PO DAILY@0600 [facility] Last Admin: 01/04/18 05:32 Dose: 80 mg Morphine Sulfate (Morphine Injection -) 2 mg IVPUSH Q6H PRN PRN Reason: PAIN LEVEL 6-10 Last Admin: 01/04/18 09:05 Dose: 2 mg Ondansetron HCl (Zofran Odt -) 8 mg SL Q6H PRN PRN Reason: NAUSEA AND/OR VOMITING Pantoprazole Sodium (Protonix Iv) 20 mg IVPUSH BID [facility] Last Admin: 01/04/18 09:04 Dose: 20 mg Multivit/Folic Acid/Iron ( Vitamins (Sjr) -) 1 tab PO DAILY [facility] Last Admin: 01/04/18 09:04 Dose: 1 tab Thiamine HCl (Vitamin B1 -) 100 mg PO HS [facility] Last Admin: 01/03/18 21:42 Dose: 100 mg Zolpidem Tartrate (Ambien -) 10 mg PO HS PRN PRN Reason: INSOMNIA Last Admin: 01/03/18 23:09 Dose: 10 mg - Objective Vital Signs: Vital Signs Temperature 97.6 F 01/04/18 06:00 Pulse Rate 82 01/04/18 06:00 Respiratory Rate 20 01/04/18 06:00 Blood Pressure 93/75 01/04/18 06:00 O2 Sat by Pulse Oximetry (%) 97 01/03/18 21:00 HENT: Yes: Atraumatic Neck: Yes: Supple Cardiovascular: Yes: Regular Rate and Rhythm Respiratory: Yes: CTA Bilaterally Gastrointestinal: Yes: Normal Bowel Sounds Extremities: Yes: WNL Neurological: Yes: Alert, Oriented Labs: CBC, BMP 01/04/18 06:30 01/04/18 06:30 INR, PTT INR 1.00 (0.82-1.09) 01/02/18 10:06 Problem List - Problems (1) Intractable vomiting Assessment/Plan: resolved tolerating diet Code(s): R11.10 - VOMITING, UNSPECIFIED (2) Alcohol dependence with uncomplicated withdrawal Assessment/Plan: on librium detox consult Code(s): F10.230 - ALCOHOL DEPENDENCE WITH WITHDRAWAL, UNCOMPLICATED (3) Alcoholic gastritis without bleeding Assessment/Plan: po protonix h/h stable Code(s): K29.20 - ALCOHOLIC GASTRITIS WITHOUT BLEEDING (4) Epigastric abdominal pain Assessment/Plan: resolved Code(s): R10.13 - EPIGASTRIC PAIN (5) EtOH dependence Code(s): F10.20 - ALCOHOL DEPENDENCE, UNCOMPLICATED (6) Hypertension Code(s): I10 - ESSENTIAL (PRIMARY) HYPERTENSION Qualifiers: Hypertension type: unspecified secondary hypertension Qualified Code(s): I15.9 - Secondary hypertension, unspecified; I15 - Secondary hypertension (7) Bipolar disorder Code(s): F31.9 - BIPOLAR DISORDER, UNSPECIFIED (8) GERD (gastroesophageal reflux disease) Code(s): K21.9 - GASTRO-ESOPHAGEAL REFLUX DISEASE WITHOUT ESOPHAGITIS Qualifiers: Esophagitis presence: without esophagitis Qualified Code(s): K21.9 - Gastro -esophageal reflux disease without esophagitis (9) Methadone maintenance therapy patient Code(s): F11.20 - OPIOID DEPENDENCE, UNCOMPLICATED (10) Bipolar II disorder Code(s): F31.81 - BIPOLAR II DISORDER
--- NOTE | 2018-01-04 10:36 | DS ---
Physical Examination Vital Signs: Vital Signs Temperature 98.4 F 01/04/18 08:29 Pulse Rate 76 01/04/18 08:29 Respiratory Rate 17 01/04/18 08:29 Blood Pressure 103/67 01/04/18 08:29 O2 Sat by Pulse Oximetry (%) 97 01/03/18 21:00 Labs: CBC, BMP 01/04/18 06:30 01/04/18 06:30 Discharge Summary Reason For Visit: INTRACTABLE VOMITING WITH NAUSEA Current Active Problems Hypertension (Acute) Intractable vomiting (Acute) Condition: Stable - Instructions - Home Medications Comprehensive Discharge Medication List: Ambulatory Orders Quetiapine Fumarate [Seroquel] 300 mg PO BID #60 tablet 07/19/17 Methadone [Dolophine -] 80 mg PO DAILY@0600 tablet MDD 1 09/26/17 traZODone HCL [Desyrel -] 50 mg PO HS #30 tablet 11/07/17 Divalproex Sodium [Depakote] 250 mg PO BID 01/02/18 tolerating diet dc to [facility]
--- NOTE | 2018-01-04 10:44 | PN ---
Progress Note, Physician History of Present Illness: Chart reviewed No events. c/o back pain "from laying all day". No nausea, vomiting, diarrhea. Tolerating diet. Wants to go home - Current Medication List Current Medications: Active Medications Chlordiazepoxide HCl (Librium -) 25 mg PO [id number] [facility] Stop: 01/05/18 05:01 Chlordiazepoxide HCl (Librium -) 15 mg PO [id number] [facility] Stop: 01/06/18 05:01 Chlordiazepoxide HCl (Librium -) 25 mg PO Q4H PRN PRN Reason: WITHDRAWAL(CONT SUBST) Stop: 01/06/18 09:45 Clonidine (Catapres -) 0.1 mg PO BID [facility] Last Admin: 01/04/18 09:04 Dose: 0.1 mg Methadone HCl (Dolophine -) 80 mg PO DAILY@0600 [facility] Last Admin: 01/04/18 05:32 Dose: 80 mg Morphine Sulfate (Morphine Injection -) 2 mg IVPUSH Q6H PRN PRN Reason: PAIN LEVEL 6-10 Last Admin: 01/04/18 09:05 Dose: 2 mg Ondansetron HCl (Zofran Odt -) 8 mg SL Q6H PRN PRN Reason: NAUSEA AND/OR VOMITING Pantoprazole Sodium (Protonix Iv) 20 mg IVPUSH BID [facility] Last Admin: 01/04/18 09:04 Dose: 20 mg Multivit/Folic Acid/Iron ( Vitamins (Sjr) -) 1 tab PO DAILY [facility] Last Admin: 01/04/18 09:04 Dose: 1 tab Thiamine HCl (Vitamin B1 -) 100 mg PO HS [facility] Last Admin: 01/03/18 21:42 Dose: 100 mg Zolpidem Tartrate (Ambien -) 10 mg PO HS PRN PRN Reason: INSOMNIA Last Admin: 01/03/18 23:09 Dose: 10 mg - Objective Vital Signs: Vital Signs Temperature 98.4 F 01/04/18 08:29 Pulse Rate 76 01/04/18 08:29 Respiratory Rate 17 01/04/18 08:29 Blood Pressure 103/67 01/04/18 08:29 O2 Sat by Pulse Oximetry (%) 97 01/03/18 21:00 Constitutional: Yes: Well Nourished, No Distress, Calm Eyes: Yes: Conjunctiva Clear HENT: Yes: Atraumatic Neck: Yes: Supple Cardiovascular: Yes: Regular Rate and Rhythm Respiratory: Yes: Regular Gastrointestinal: Yes: Soft. No: Ascites, Distention, Melena, Rectal Bleeding, Tenderness, Vomiting Labs: CBC, BMP 01/04/18 06:30 01/04/18 06:30 INR, PTT INR 1.00 (0.82-1.09) 01/02/18 10:06 CBCD WBC 5.2 K/mm3 (4.0-10.0) D 01/04/18 06:30 RBC 4.09 M/mm3 (3.60-5.2) 01/04/18 06:30 Hgb 14.0 GM/dL (10.7-15.3) 01/04/18 06:30 Hct 40.2 % (32.4-45.2) 01/04/18 06:30 MCV 98.3 fl (80-96) H 01/04/18 06:30 MCHC 34.8 g/dl (32.0-36.0) 01/04/18 06:30 RDW 12.8 % (11.6-15.6) 01/04/18 06:30 Plt Count 142 K/MM3 (134-434) 01/04/18 06:30 MPV 10.4 fl (7.5-11.1) 01/04/18 06:30 CMP Sodium 135 mmol/L (136-145) L 01/04/18 06:30 Potassium 3.5 mmol/L (3.5-5.1) 01/04/18 06:30 Chloride 102 mmol/L (98-107) 01/04/18 06:30 Carbon Dioxide 24 mmol/L (21-32) 01/04/18 06:30 Anion Gap 9 (8-16) 01/04/18 06:30 BUN 14 mg/dL (7-18) 01/04/18 06:30 Creatinine 0.8 mg/dL (0.55-1.02) 01/04/18 06:30 Creat Clearance w eGFR > 60 (>60) 01/04/18 06:30 Calcium 8.2 mg/dL (8.5-10.1) L 01/04/18 06:30 Total Bilirubin 0.8 mg/dL (0.2-1.0) 01/04/18 06:30 AST 56 U/L (15-37) H 01/04/18 06:30 ALT 45 U/L (12-78) 01/04/18 06:30 Alkaline Phosphatase 84 U/L (45-117) 01/04/18 06:30 Total Protein 7.2 g/dl (6.4-8.2) 01/04/18 06:30 Albumin 3.5 g/dl (3.4-5.0) 01/04/18 06:30 Problem List - Problems (1) Intractable vomiting Code(s): R11.10 - VOMITING, UNSPECIFIED (2) Alcohol dependence with uncomplicated withdrawal Code(s): F10.230 - ALCOHOL DEPENDENCE WITH WITHDRAWAL, UNCOMPLICATED (3) Alcoholic gastritis without bleeding Code(s): K29.20 - ALCOHOLIC GASTRITIS WITHOUT BLEEDING (4) EtOH dependence Code(s): F10.20 - ALCOHOL DEPENDENCE, UNCOMPLICATED (5) Methadone maintenance therapy patient Code(s): F11.20 - OPIOID DEPENDENCE, UNCOMPLICATED (6) Hepatitis C Code(s): B19.20 - UNSPECIFIED VIRAL HEPATITIS C WITHOUT HEPATIC COMA Qualifiers: Assessment/Plan Symptomas have resolved. Refused MRCP OK to d/c from [facility]. Post hospitalization follow up in 7 days
[2018-01-04] MEDS ORDERED: guaiFENesin/D-METHORPHAN HB 10 ML UNIT-DOSE CUPS PO PRN (11:12)
[2018-01-04 13:59] LABS: COCAINE, UR NEGATIVE ng/ml (CUTOFF=300); URINE AMPHETAMINES NEGATIVE ng/ml (CUTOFF=500); URINE BARBITURATES NEGATIVE ng/ml (CUTOFF=200)
[2018-01-04 14:00] LABS: PHENCYCLIDINE,URINE NEGATIVE ng/ml (CUTOFF=25)
[2018-01-04 14:02] LABS: OPIATES, URI POSITIVE ng/ml (CUTOFF=300); URINE BENZODIAZEPINES POSITIVE ng/ml (CUTOFF=200)
[2018-01-04 14:03] LABS: METHADONE, UR POSITIVE ng/ml (CUTOFF=300)
[2018-01-04] MEDS: THIAMINE HCL 100 MG TABLET (FP) PO SCH (21:10)
[2018-01-04] MEDS: ZOLPIDEM TARTRATE 5 MG TABLET PO PRN (22:41)
[2018-01-05 00:10] LABS: HBSAG SCREEN Negative (Negative); HEP A AB, IGM Negative (Negative); HEP B CORE AB, TOT Negative (Negative)
[2018-01-05] MEDS: MORPHINE SULFATE 10 MG/1 ML *VIAL IVPUSH PRN (02:52)
[2018-01-05] MEDS: chlordiazePOXIDE HCL 25 MG CAPSULE PO SCH (06:03)
[2018-01-05] MEDS: METHADONE HCL 40 MG DISPERSABLE TABLET PO SCH (06:03)
[2018-01-05 07:44] VITALS: BP 116/56; PULSE 94; TEMP 98
[2018-01-05] MEDS ORDERED: chlordiazePOXIDE 5 MG CAPSULE PO PRN (07:59)
[2018-01-05] MEDS ORDERED: chlordiazePOXIDE 5 MG CAPSULE PO SCH (11:00)
== END 2018-01-05 08:16 | disposition home or self-care (01) ==
LOC: JER 08:55 → JERBED 13:43 → J5S 16:21
PROVIDERS: ADMIT Internal Medicine; ATTEND Internal Medicine
PROC: 3E033NZ Introduction of Analgesics, Hypnotics, Sedatives into Peripheral Vein, Percutaneous Approach (ICD-10-PCS; principal; 2018-01-02)
PROC: 3E0337Z Introduction of Electrolytic and Water Balance Substance into Peripheral Vein, Percutaneous Approach (ICD-10-PCS; 2018-01-02)
PROC: 3E033GC Introduction of Other Therapeutic Substance into Peripheral Vein, Percutaneous Approach (ICD-10-PCS; 2018-01-02)
DX: G43.A1 Cyclical vomiting, in migraine, intractable (principal); F10.230 Alcohol dependence with withdrawal, uncomplicated; R10.13 Epigastric pain; K29.20 Alcoholic gastritis without bleeding; F11.20 Opioid dependence, uncomplicated; B18.2 Chronic viral hepatitis C; Z88.8 Allergy status to other drugs, medicaments and biological substances; F31.81 Bipolar II disorder; K21.9 Gastro-esophageal reflux disease without esophagitis; I10 Essential (primary) hypertension; I15.9 Secondary hypertension, unspecified; F17.210 Nicotine dependence, cigarettes, uncomplicated
CPT/HCPCS: 36415; 74177-TC; 80053; 80307; 81003; 81015; 82248; 83690; 84703; 85025; 85610; 86704; 86706; 86708; 87340; 93005; 93010; 96375; 96376; 99285-25; G0378; J0735

== ENCOUNTER 2018-01-12 09:24 | Emergency (ER) | payer OTHER ==
--- NOTE | 2018-01-12 09:31 | PDOC ---
Attending Attestation - HPI HPI: 01/12/18 10:16 The patient is a 47 year old female, in detox at [facility], with a significant PMH of HTN, Hep C, EtOH and cocaine dependence, on 80mg methadone who presents to the emergency department with altered mental status. Last known well is unknown. The patient was unresponsive as per EMS and they administered 6L of O2 nonbreather. The patient is nonverbal upon arrival to the ER but arousable to painful stimuli. The patient is satting at 100% on nasal cannula. Allergies: NKA - Physicial Exam PE: 01/12/18 10:23 Vitals: Triage vital signs reviewed General Appearance: Lethargic but arousable to painful stimuli. Head: Atraumatic Eyes: Pupils equal reactive round, extraocular movement intact Neck: Supple; No nuchal rigidity Cardiac: Regular rate and rhythm, no murmurs, no rubs, no gallops Lungs: Clear to auscultation bilateral, good air movement bilaterally Abdomen: Soft, nondistended, normal bowel sounds, nontender to palpation Extremities: Full range of motion to all extremities, no cyanosis, clubbing, or edema Skin: Warm and dry, no rashes or lesions, no rash, no petechiae Neuro: No focal sensorimotor deficits, Cranial Nerves 2-12 grossly intact <Yanet Shipman - Last Filed: 01/12/18 10:23> - Resident Resident Name: Larry Malagon - ED Attending Attestation I have performed the following: I have examined & evaluated the patient, The case was reviewed & discussed with the resident, I agree w/resident's findings & plan, Exceptions are as noted - HPI HPI: 47 years old past medical history significant for hypertension and hep C EtOH cocaine dependence on methadone presents to the emergency department altered mental status Differential diagnosis includes toxic versus metabolic. We will CT had labs hydrate tox panel and reassess Reevaluation by patient's blood work notable for elevated alcohol with time patient is now awake or oriented ambulate here in the emergency department she endorses that she steps outside of her detox facility last night and began to drink Imaging blood work otherwise unremarkable Patient be transferred back to [facility]. - Medical Decision Making 01/12/18 12:09 Patient presented to the emergency department from [facility] with altered mental status Arousable to painful stimuli Moving all extremities Differential diagnosis includes intoxication versus infectious etiology versus toxic metabolic We will obtain a head CT urinalysis blood work EKG hydrate observe and reassess. Patient maintaining her airway. <Rafael Marte - Last Filed: 01/12/18 17:35> Heart Score/ECG Review - P and TX Comment:: 01/12/18 11:07 EKG performed at 1036 demonstrated a rate of 82 bpm TX interval 134 QRS interval [address] elevations no T-wave inversions questionable septal infarct age indeterminate Interpreted by me <Rafael Marte - Last Filed: 01/12/18 17:35>
[2018-01-12 09:32] VITALS: BMI 25.7
--- NOTE | 2018-01-12 09:35 | PDOC ---
History of Present Illness <Rafael Marte - Last Filed: 01/12/18 12:51> - History of Present Illness Initial Comments: 01/12/18 09:32 47 yo F with h/o HTN, Hep C, EtoH dependence, and Cocaine dependence in detox ( 01/11-01/15) on Librium, and methadone maintenance who presents with AMS. Per EMS patient was unresponsive, arousable to painful stimuli, non verbal and non communicative on arrival. Patient O2 100% on NC. 6 L 02 non rebreather in route. Did not administer Narcan. Last known well is unknown. On Methadone 80 mg. <Larry Malagon - Last Filed: 01/12/18 13:54> - General Stated Complaint: UNRESPONSIVE Time Seen by Provider: 01/12/18 09:30 Past History <Rafael Marte - Last Filed: 01/12/18 12:51> - Past Medical History Anemia: No Asthma: No Cancer: No Cardiac Disorders: No CVA: No COPD: No CHF: No Dementia: No Diabetes: No GI Disorders: No Disorders: No HTN: No Hypercholesterolemia: No Kidney Stones: No Liver Disease: Yes (HEP C) Psychiatric Problems: Yes (BIPOLAR) Seizures: Yes ("DYSTONIC RXN") Thyroid Disease: No - Surgical History Abdominal Surgery: No Appendectomy: No Cardiac Surgery: No Cholecystectomy: No Lung Surgery: No Neurologic Surgery: No Orthopedic Surgery: No - Reproductive History (#): 13 Para: 11 PID: Yes - Immunization History Immunization Up to Date: No - Suicide/Smoking/Psychosocial Hx Smoking History: Current every day smoker Have you smoked in the past 12 months: Yes Number of Cigarettes Smoked Daily: 3 Cigars Per Day: 0 'Breaking Loose' booklet given: 01/11/18 Hx Alcohol Use: Yes Drug/Substance Use Hx: Yes Substance Use Type: Alcohol, Marijuana Hx Substance Use Treatment: Yes ([facility]) <Larry Malagon - Last Filed: 01/12/18 13:54> - Past Medical History Allergies/Adverse Reactions: Allergies Allergy/AdvReac Type Severity Reaction Status Date / Time metoclopramide HCl Allergy Severe dystonic Verified 01/11/18 20:47 [From Reglan] reaction prochlorperazine maleate Allergy Severe DYSTONIA Verified 01/11/18 20:47 [From Compazine] Home Medications: Ambulatory Orders Quetiapine Fumarate [Seroquel] 300 mg PO BID #60 tablet 07/19/17 Methadone [Dolophine -] 80 mg PO DAILY@0600 tablet MDD 1 09/26/17 traZODone HCL [Desyrel -] 50 mg PO HS #30 tablet 11/07/17 Divalproex Sodium [Depakote] 250 mg PO BID 01/02/18 Pantoprazole Sodium [Protonix] 40 mg PO BID #60 tablet. 01/04/18 *Physical Exam - Vital Signs Last Vital Signs Temp Pulse Resp BP Pulse Ox 83 14 96/74 100 01/12/18 11:53 01/12/18 11:53 01/12/18 11:53 01/12/18 11:53 <Rafael Marte - Last Filed: 01/12/18 12:51> - Physical Exam Comments: 01/12/18 09:33 GENERAL: Lethargic and arousable to painful stimuli. HEAD: No signs of trauma, normocephalic, atraumatic EYES: PERRLA, EOMI, sclera anicteric, conjunctiva clear ENT: Auricles normal inspection, nares patent, oropharynx clear without exudates. Moist mucosa NECK: Normal ROM, supple, no lymphadenopathy, JVD, or masses LUNGS: No distress, speaks full sentences, clear to auscultation bilaterally HEART: Regular rate and rhythm, normal S1 and S2, no murmurs, rubs or gallops, peripheral pulses normal and equal bilaterally. ABDOMEN: Soft, nontender, normoactive bowel sounds. No guarding, no rebound. No masses EXTREMITIES : Normal inspection, Normal range of motion, no edema. No clubbing or cyanosis. NEUROLOGICAL: Cranial nerves II through XII grossly intact. does not follow commands. SKIN: Warm, Dry, normal turgor, no rashes or lesions noted <Larry Malagon - Last Filed: 01/12/18 13:54> ED Treatment Course - LABORATORY CBC & Chemistry Diagram: 01/12/18 10:20 01/12/18 10:00 - ADDITIONAL ORDERS Additional order review: Laboratory Results 01/12/18 01/12/18 01/12/18 11:45 10:55 10:50 PT with INR INR PTT (Actin FS) VBG pH POC VBG pCO2 POC VBG pO2 Mixed VBG HCO3 Sodium Potassium Chloride Carbon Dioxide Anion Gap BUN Creatinine Creat Clearance w eGFR Random Glucose Lactic Acid Calcium Total Bilirubin AST ALT Alkaline Phosphatase Troponin I Cancelled Total Protein Albumin Urine Color Ltyellow Urine Appearance Clear Urine pH 6.0 Ur Specific Carson 1.004 Urine Protein Negative Urine Glucose (UA) Negative Urine Ketones Negative Urine Blood Negative Urine Nitrite Negative Urine Bilirubin Negative Urine Urobilinogen 2.0 H Ur Leukocyte Esterase Negative Opiates Screen Negative Methadone Screen Positive Acetaminophen Barbiturate Screen Negative Phencyclidine Screen Negative Ur Amphetamines Screen Negative MDMA (Ecstasy) Screen Negative Benzodiazepines Screen Positive Cocaine Screen Negative U Marijuana (THC) Screen Positive Alcohol, Quantitative 01/12/18 01/12/18 01/12/18 10:50 10:00 10:00 PT with INR INR PTT (Actin FS) VBG pH POC VBG pCO2 POC VBG pO2 Mixed VBG HCO3 Sodium 145 Potassium 3.9 Chloride 110 H Carbon Dioxide 22 Anion Gap 13 BUN 6 L Creatinine 0.6 Creat Clearance w eGFR > 60 Random Glucose 68 L Lactic Acid 1.0 Calcium 7.8 L Total Bilirubin 0.4 D AST 140 H ALT 98 H Alkaline Phosphatase 99 Troponin I < 0.02 Total Protein 6.8 Albumin 3.3 L Urine Color Urine Appearance Urine pH Ur Specific Carson Urine Protein Urine Glucose (UA) Urine Ketones Urine Blood Urine Nitrite Urine Bilirubin Urine Urobilinogen Ur Leukocyte Esterase Opiates Screen Methadone Screen Acetaminophen Cancelled < 2.000 Barbiturate Screen Phencyclidine Screen Ur Amphetamines Screen MDMA (Ecstasy) Screen Benzodiazepines Screen Cocaine Screen U Marijuana (THC) Screen Alcohol, Quantitative 124.49 H* 01/12/18 01/12/18 10:00 10:00 PT with INR 10.70 INR 0.95 PTT (Actin FS) 30.4 VBG pH 7.29 L POC VBG pCO2 49.1 POC VBG pO2 110.0 H D Mixed VBG HCO3 23.1 Sodium Potassium Chloride Carbon Dioxide Anion Gap BUN Creatinine Creat Clearance w eGFR Random Glucose Lactic Acid Calcium Total Bilirubin AST ALT Alkaline Phosphatase Troponin I Total Protein Albumin Urine Color Urine Appearance Urine pH Ur Specific Carson Urine Protein Urine Glucose (UA) Urine Ketones Urine Blood Urine Nitrite Urine Bilirubin Urine Urobilinogen Ur Leukocyte Esterase Opiates Screen Methadone Screen Acetaminophen Barbiturate Screen Phencyclidine Screen Ur Amphetamines Screen MDMA (Ecstasy) Screen Benzodiazepines Screen Cocaine Screen U Marijuana (THC) Screen Alcohol, Quantitative 01/12/18 10:20 RBC 3.53 L MCV 99.7 H MCHC 33.8 RDW 13.6 MPV 9.4 Neutrophils % 61.8 Lymphocytes % 28.8 Monocytes % 6.9 Eosinophils % 1.7 Basophils % 0.8 <Rafael Marte - Last Filed: 01/12/18 12:51> - LABORATORY CBC & Chemistry Diagram: 01/12/18 10:20 01/12/18 10:00 <Larry Malagon - Last Filed: 01/12/18 13:54> Medical Decision Making - Medical Decision Making 01/12/18 09:54 47 yo F with h/o HTN, Hep C, EtoH dependence, and Cocaine dependence in detox ( 01/11-01/15) on Librium, and methadone maintenance who presents with AMS. Per EMS patient was unresponsive, arousable to painful stimuli, non verbal and non communicative on arrival. Patient O2 100% on NC. 6 L 02 non rebreather in route. Did not administer Narcan. Last known well is unknown. Vitals stable BP~ 99/60, RR 14, HR 100. Physical exam unremarkable. BS~80. Differential for AMS is broad. Will assess for underlying infectious etiology, toxic and metabolic derangements electrolyte abn., hypoglycemia, CVA/TIA, cardiac disturbance. ED Course: Septic order set CBC, CMP, lactic acid, Cardiac Pr EKG, CT HEAD UA 01/12/18 11:22 CBC: Unremarkable Alcohol 124.49 01/12/18 11:23 CXR: Unremarkable 01/12/18 12:30 01/12/18 12:31 + Methadone, Benzo, THC UA: Neg Patient stable and ambulating without difficulty. Will transfer back to outside facility. Admits to alcohol ingestion yesterday evening while outside the facility. 01/12/18 13:53 CT Head unremarkable. <Larry Malagon - Last Filed: 01/12/18 13:54> *DC/Admit/Observation/Transfer - Discharge Dispostion Admit: No <Rafael Marte - Last Filed: 01/12/18 12:51> <Larry Malagon - Last Filed: 01/12/18 13:54> Diagnosis at time of Disposition: Intoxication - Discharge Dispostion Condition at time of disposition: Improved - Patient Instructions Printed Discharge Instructions: DI for Alcohol Abuse Additional Instructions: Return to [facility]. Follow-up instructions provided by them. Follow-up with her doctor within 1 week. Return to ED for any concerns. Do not use drugs or alcohol.
[2018-01-12 10:27] LABS: BASO % 0.8 % (0-2.0); EOS % 1.7 % (0-4.5); HEMATOCRIT 35.2 % (32.4-45.2); HEMOGLOBIN 11.9 GM/dL (10.7-15.3); LYMPH % 28.8 % (8-40); MCH 33.7 pg (25.7-33.7); MCHC 33.8 g/dl (32.0-36.0); MEAN CELL VOLUME 99.7 fl (80-96); MEAN PLT VOLUME 9.4 fl (7.5-11.1); MONO % 6.9 % (3.8-10.2); NEUT % 61.8 % (42.8-82.8); PLATELET COUNT 138 K/MM3 (134-434); RBC 3.53 M/mm3 (3.60-5.2); RDW 13.6 % (11.6-15.6); WHITE BLOOD COUNT 4.4 K/mm3 (4.0-10.0)
[2018-01-12 10:27] LABS: VENOUS PC02 49.1 mmHg (38-52); VENOUS PH 7.29 (7.32-7.42)
[2018-01-12 10:34] LABS: INR 0.95 (0.82-1.09); PROTHROMBIN TIME (PATIENT) 10.7 SEC (9.98-11.88)
[2018-01-12 10:36] LABS: ACTIVATED PTT 30.4 SECONDS (26.9-34.4)
[2018-01-12 10:49] LABS: ALBUMIN 3.3 g/dl (3.4-5.0); ANION GAP 13 (8-16); BILIRUBIN,TOTAL 0.4 mg/dL (0.2-1.0); BLOOD UREA NITROGEN 6 mg/dL (7-18); CALCIUM 7.8 mg/dL (8.5-10.1); CHLORIDE 110 mmol/L (98-107); CO2 22 mmol/L (21-32); CREATININE 0.6 mg/dL (0.55-1.02); GLUCOSE,RANDOM 68 mg/dL (74-106); POTASSIUM 3.9 mmol/L (3.5-5.1); SGOT/AST 140 U/L (15-37); SGPT/ALT 98 U/L (12-78); SODIUM 145 mmol/L (136-145); TOT PROT 6.8 g/dl (6.4-8.2)
[2018-01-12 10:50] LABS: ALK PHOS 99 U/L (45-117)
[2018-01-12 10:57] LABS: ACETAMINOPHEN < 2.000 ug/mL
[2018-01-12 11:54] VITALS: BP 96/74; PULSE 83
[2018-01-12 12:00] LABS: URINE APPEARANCE CLEAR; URINE BILIRUBIN NEGATIVE (NEGATIVE); URINE BLOOD NEGATIVE (NEGATIVE); URINE COLOR LTYELLOW; URINE GLUCOSE (UA) NEGATIVE (NEGATIVE); URINE KETONE NEGATIVE (NEGATIVE); URINE LEUK ESTERASE NEGATIVE (NEGATIVE); URINE NITRITE NEGATIVE (NEGATIVE); URINE PROTEIN NEGATIVE (NEGATIVE)
[2018-01-12 12:26] LABS: COCAINE, UR NEGATIVE ng/ml (CUTOFF=300); OPIATES, URI NEGATIVE ng/ml (CUTOFF=300); PHENCYCLIDINE,URINE NEGATIVE ng/ml (CUTOFF=25); URINE AMPHETAMINES NEGATIVE ng/ml (CUTOFF=500); URINE BARBITURATES NEGATIVE ng/ml (CUTOFF=200)
[2018-01-12 12:27] LABS: METHADONE, UR POSITIVE ng/ml (CUTOFF=300); URINE BENZODIAZEPINES POSITIVE ng/ml (CUTOFF=200)
--- NOTE | 2018-01-12 16:34 | EKG ---
Test Reason : Blood Pressure : / mmHG Vent. Rate : 082 BPM Atrial Rate : 082 BPM P-R Int : 134 ms QRS Dur : 086 ms QT Int : 414 ms P-R-T Axes : 058 042 039 degrees QTc Int : 483 ms NORMAL SINUS RHYTHM SEPTAL INFARCT , AGE UNDETERMINED ABNORMAL ECG WHEN COMPARED WITH ECG OF 11-JAN-2018 23:58, T WAVE INVERSION NOW EVIDENT IN ANTERIOR LEADS T WAVE AMPLITUDE HAS INCREASED IN LATERAL LEADS Confirmed by YAMIL SÁNCHEZ, KELLY ([id number]) on 01/12/2018 4:33:40 PM Referred By: Confirmed By:KELLY LOBO MD
== END 2018-01-12 14:26 | disposition home or self-care (01) ==
LOC: JER 09:24
DX: F10.220 Alcohol dependence with intoxication, uncomplicated (principal); Y90.6 Blood alcohol level of 120-199 mg/100 ml; F14.20 Cocaine dependence, uncomplicated; F11.20 Opioid dependence, uncomplicated; I10 Essential (primary) hypertension; B18.2 Chronic viral hepatitis C; F31.9 Bipolar disorder, unspecified; F17.210 Nicotine dependence, cigarettes, uncomplicated
CPT/HCPCS: 36415; 70450-TC; 71045-TC-FY; 80053; 80307; 81003; 82803; 83605; 84484; 85025; 85610; 85730; 87040; 87086; 93005; 93010; 99283-25

== ENCOUNTER 2018-01-31 11:07 | Inpatient (IN) | payer OTHER ==
[2018-01-31 11:24] VITALS: BMI 24.5
--- NOTE | 2018-01-31 11:33 | PDOC ---
History of Present Illness - General Chief Complaint: Nausea/Vomiting Stated Complaint: VOMITING Time Seen by Provider: 01/31/18 11:23 - History of Present Illness Initial Comments: 01/31/18 13:51 Patient is 47 year old female with a PMH of opiate and alcohol abuse, hypertension, hepatitis C, EtOH dependence, cocaine dependence, on methadone, presents to our ED c/o 1 day h/o nausea/vomiting and diffuse abdominal cramping. Patient notes that immediately prior to symptom onset yesterday evening she was eating macaroni and meatballs and was drinking approximately 1/ 5 pint of vodka. Patient notes her last cocaine and marijuana use was Tuesday. Patient last BM was earlier today prior to admission and was normal. Patient denies any h/o DT's. Patient states she was in [facility] for detox and rehab earlier this month, however she wishes to be readmitted. Past History - Past Medical History Allergies/Adverse Reactions: Allergies Allergy/AdvReac Type Severity Reaction Status Date / Time metoclopramide HCl Allergy Severe dystonic Verified 01/31/18 11:21 [From Reglan] reaction prochlorperazine maleate Allergy Severe DYSTONIA Verified 01/31/18 11:21 [From Compazine] Home Medications: Ambulatory Orders Quetiapine Fumarate [Seroquel] 300 mg PO BID #60 tablet 07/19/17 Methadone [Dolophine -] 80 mg PO DAILY@0600 tablet MDD 1 09/26/17 traZODone HCL [Desyrel -] 50 mg PO HS #30 tablet 11/07/17 Divalproex Sodium [Depakote] 250 mg PO BID 01/02/18 Pantoprazole Sodium [Protonix] 40 mg PO BID #60 tablet. 01/04/18 Gabapentin [Neurontin -] 300 mg PO TID 01/24/18 Nitrofurantoin Monohyd/M-Cryst [Macrobid -] 100 mg PO BID #14 capsule 01/31/18 Anemia: No Asthma: No Cancer: No Cardiac Disorders: No CVA: No COPD: No CHF: No Dementia: No Diabetes: No GI Disorders: Yes (pancreatitis, GERD) Disorders: No HTN: Yes Hypercholesterolemia: No Kidney Stones: No Liver Disease: Yes (hepatitis) Psychiatric Problems: Yes (bipolar) Seizures: No Thyroid Disease: No Other medical history: alcoholism, opiod dependence - Surgical History Abdominal Surgery: No Appendectomy: No Cardiac Surgery: No Cholecystectomy: No Lung Surgery: No Neurologic Surgery: No Orthopedic Surgery: No - Reproductive History (#): 13 Para: 11 PID: No - Immunization History Immunization Up to Date: No - Suicide/Smoking/Psychosocial Hx Smoking History: Current every day smoker Have you smoked in the past 12 months: Yes Number of Cigarettes Smoked Daily: 3 Cigars Per Day: 0 Information on smoking cessation initiated: No 'Breaking Loose' booklet given: 01/11/18 Hx Alcohol Use: Yes Drug/Substance Use Hx: Yes Substance Use Type: Alcohol, Heroin Hx Substance Use Treatment: Yes (completed detox treatment on ) Review of Systems - Review of Systems Constitutional: No: Chills, Fever HEENTM: No: Recent change in vision Respiratory: No: Cough, Shortness of Breath Cardiac (ROS): No: Chest Pain, Lightheadedness, Palpitations, Syncope ABD/GI: Yes: Nausea, Vomiting, Abdominal cramping. No: Constipated, Diarrhea : No: Burning, Dysuria, Frequency, Urgency *Physical Exam - Vital Signs Last Vital Signs Temp Pulse Resp BP Pulse Ox 97.9 F 77 18 166/109 100 01/31/18 11:21 01/31/18 11:21 01/31/18 11:21 01/31/18 11:21 01/31/18 11:21 - Physical Exam Comments: 01/31/18 20:44 GENERAL: Awake, alert, and fully oriented, in no acute distress HEAD: L supraorbital hematoma EYES: PERRLA, EOMI, sclera anicteric, conjunctiva clear ENT: Auricles normal inspection, hearing grossly normal, NECK: Nontender, no stepoffs, Normal ROM, supple, no lymphadenopathy, JVD, or masses LUNGS: Breath sounds equal, clear to auscultation bilaterally. No wheezes, and no crackles HEART: Regular rate and rhythm, normal S1 and S2, no murmurs, rubs or gallops ABDOMEN: Soft, Epigastric TTP, (+) bowel sounds, (-) Costello's sign EXTREMITIES: Normal range of motion, no edema. No clubbing or cyanosis. No cords, erythema, or tenderness NEUROLOGICAL: Cranial nerves II through XII intact. 5/5 strength and sensation in all extremities, SKIN: Warm, Dry, normal turgor, no rashes or lesions noted. ED Treatment Course - LABORATORY CBC & Chemistry Diagram: 01/31/18 12:40 01/31/18 12:40 Medical Decision Making - Medical Decision Making 01/31/18 13:48 47 year old female presents with abdominal cramping as well as recent head trauma w/o LOC. Will obtain CBC, CMP, UA, Lactic Acid, Lipase as well as head C /T. 01/31/18 13:49 WBC 12.6, Lipase, Lactic Acid wnL 01/31/18 15:57 Case d/w Dr. Littlejohn @ [facility], patient remains eligible for Detox as well as Rehab. Will call admitting to determine bed availability. 01/31/18 16:27 No bed availability @ [facility]. Head CT negative for acute bleed. LFT's, Alk Phos elevated c/w alcoholism. UA shows WBC 14, (-) leukocyte esterase, (-) nitrite -- patient denies any dysuria, increased urgency/frequency on ROS however will prescribe outpatient Macrobid (limited historian, some epithelial cells) 01/31/18 16:50 Patient c/o continued epigastric pain with TTP. Will give GI cocktail + PO challenge. Reassess. 01/31/18 18:30 Patient actively vomiting, not tolerating PO intake. Continues to c/o epigastric pain and serial belly exams w/continued epigastric TTP. Bedside U/S and formal abdominal U/S pending. Will admit to medicine telemetry. Case d/w Dr. Heath. Will continue to monitor while in ED. 0 *DC/Admit/Observation/Transfer Diagnosis at time of Disposition: Vomiting - Discharge Dispostion Condition at time of disposition: Fair Admit: Yes - Prescriptions - Referrals - Patient Instructions - Post Discharge Activity
[2018-01-31] MEDS ORDERED: SODIUM CHLORIDE 0.9% 500 ML INFUS.BAG IV ONE (11:55)
[2018-01-31] MEDS ORDERED: ONDANSETRON 4 MG/2 ML VIAL IVPUSH ONE ×2 (11:55→16:43)
[2018-01-31] MEDS ORDERED: ONDANSETRON 4 MG/2 ML VIAL ONE ×2 (12:06→17:05)
[2018-01-31] MEDS ORDERED: ACETAMINOPHEN 1000 MG/100 ML VIAL (NON FORMULARY) IVPB ONE (12:38)
[2018-01-31 12:44] LABS: BASO % 0.3 % (0-2.0); HEMATOCRIT 37.7 % (32.4-45.2); HEMOGLOBIN 12.8 GM/dL (10.7-15.3); MCH 33.1 pg (25.7-33.7); MCHC 33.8 g/dl (32.0-36.0); MEAN PLT VOLUME 10.2 fl (7.5-11.1); MONO % 3.9 % (3.8-10.2); NEUT % 90.8 % (42.8-82.8); PLATELET COUNT 136 K/MM3 (134-434); RBC 3.85 M/mm3 (3.60-5.2); RDW 14.5 % (11.6-15.6); WHITE BLOOD COUNT 12.6 K/mm3 (4.0-10.0)
[2018-01-31] MEDS ORDERED: ACETAMINOPHEN INJECTION 100 ML IVPB ONE (12:56)
--- NOTE | 2018-01-31 13:15 | PDOC ---
Attending Attestation - Resident Resident Name: Tyler Zimmermanica - ED Attending Attestation I have performed the following: I have examined & evaluated the patient, The case was reviewed & discussed with the resident, I agree w/resident's findings & plan, Exceptions are as noted - HPI HPI: 01/31/18 13:12 47-year-old female with history of opiate and alcohol dependence status post AMA release from [facility] 2 days ago presents with nausea/vomiting since last night, in the setting of alcohol binge. No withdrawal symptoms, had normal bowel movement today, has history of but no history of obstructions. - Physicial Exam PE: 01/31/18 13:12 Vital signs normal No fasciculations or tremors Oropharynx is clear Abdomen is benign, no focal guarding or rebound - Medical Decision Making 01/31/18 13:13 Patient seen and evaluated with the resident. I agree with the overall evaluation, assessment, and management with the following summary of visit: 47-year-old female with history of alcohol and opiate dependence resents with nausea/vomiting since last night. Presentation could be most consistent with alcohol intoxication plus or minus gastritis/pancreatitis, rule out biliary disease. No evidence of withdrawal. Labs, urinalysis IV fluids, EKG Antiemetics Reassess, patient currently expressing interest in returning to detox. Heart Score/ECG Review #1 ECG reviewed & interpreted by me at: 11:29 General ECG Interpretation: Sinus Rhythm, Normal Rate (76), Normal Intervals ( qtc 488, LVH), No acute ischemic changes (? peaked T waves [id number] seen on prior EKG on 01/09 but resolved on 01/11-) Compared to previous ECG there are: No significant change
[2018-01-31 13:17] LABS: ALBUMIN 3.5 g/dl (3.4-5.0); ALK PHOS 168 U/L (45-117); ANION GAP 11 (8-16); BILIRUBIN,TOTAL 1.2 mg/dL (0.2-1.0); BLOOD UREA NITROGEN 6 mg/dL (7-18); CALCIUM 8.4 mg/dL (8.5-10.1); CHLORIDE 102 mmol/L (98-107); CO2 24 mmol/L (21-32); CREATININE 0.5 mg/dL (0.55-1.02); GLUCOSE,RANDOM 170 mg/dL (74-106); SGPT/ALT 143 U/L (12-78); SODIUM 137 mmol/L (136-145); TOT PROT 7.7 g/dl (6.4-8.2)
[2018-01-31 13:27] LABS: LIPASE 248 U/L (73-393)
[2018-01-31 13:28] LABS: MAGNESIUM 1.6 mg/dL (1.8-2.4); POTASSIUM 3.6 mmol/L (3.5-5.1); SGOT/AST 162 U/L (15-37)
[2018-01-31 15:33] LABS: URINE APPEARANCE SLCLOUDY; URINE BILIRUBIN NEGATIVE (<2.0 mg/dL); URINE BLOOD NEGATIVE (NEGATIVE); URINE COLOR YELLOW; URINE GLUCOSE (UA) 3+ (NEGATIVE); URINE KETONE 2+ (NEGATIVE); URINE LEUK ESTERASE NEGATIVE (NEGATIVE); URINE NITRITE NEGATIVE (NEGATIVE); URINE UROBILINOGEN NEGATIVE mg/dL (0.2-1.0)
[2018-01-31 16:09] LABS: URINE PROTEIN 2+ (NEGATIVE)
[2018-01-31 16:14] LABS: EPI CELLS RARE /HPF (FEW); URINE BACTERIA MODERATE /hpf (NONE SEEN)
[2018-01-31] MEDS ORDERED: MAG HYDROX/AL HYDROX/SIMETH -MYLANTA- ORAL SUSPENSION PO ONE (16:42)
[2018-01-31] MEDS ORDERED: chlordiazePOXIDE 5 MG CAPSULE PO ONE (16:43)
[2018-01-31] MEDS ORDERED: MAG HYDROX/AL HYDROX/SIMETH 30 ML UNIT-DOSE CUP ONE (17:05)
[2018-01-31] MEDS ORDERED: chlordiazePOXIDE HCL 25 MG CAPSULE ONE ×2 (17:05→23:07)
[2018-01-31] MEDS ORDERED: chlordiazePOXIDE HCL 25 MG CAPSULE PO ONE (17:05)
--- NOTE | 2018-01-31 19:22 | PN ---
Teaching Attending Note Name of Resident: James Huggins ATTENDING PHYSICIAN STATEMENT I saw and evaluated the patient. I reviewed the resident's note and discussed the case with the resident. I agree with the resident's findings and plan as documented. SUBJECTIVE: 47 F with hx. of ETOH abuse and opiate abuse, hep. c,? HIV ETOH dependence, cocaine dependenc, on Methadone who presents with nausea, vomiting and abdominal cramping. States symptoms started yesterday when she started to drink 1/5th Pint of Vodka. Last Coke and Marijuana use was Tuesday. Also, with qu fall where she hit her head on her wall after drinking. States she continues to be nausous, but denies chest pain, pressure, or shortness of breath, OBJECTIVE: Physical: VS: Vital Signs Period Temp Pulse Resp BP Sys/Moore Pulse Ox Last 24 Hr 97.9 F 77 18 166/109 100 GEN: NAD, Resting in bed, AA0X3 HEENT: NCAT, Slight bruising over L. forehead PERRL, Throat without erythema or exudates CARD: RRR S1, S2 RESP: CTAB ABD: TTP RUQ, BSx4, Non-distended, soft EXT: - C/C/E CBCD WBC 12.6 K/mm3 (4.0-10.0) H D 01/31/18 12:40 RBC 3.85 M/mm3 (3.60-5.2) 01/31/18 12:40 Hgb 12.8 GM/dL (10.7-15.3) 01/31/18 12:40 Hct 37.7 % (32.4-45.2) 01/31/18 12:40 MCV 98.0 fl (80-96) H 01/31/18 12:40 MCHC 33.8 g/dl (32.0-36.0) 01/31/18 12:40 RDW 14.5 % (11.6-15.6) 01/31/18 12:40 Plt Count 136 K/MM3 (134-434) D 01/31/18 12:40 MPV 10.2 fl (7.5-11.1) 01/31/18 12:40 CMP Sodium 137 mmol/L (136-145) 01/31/18 12:40 Potassium 3.6 mmol/L (3.5-5.1) 01/31/18 12:40 Chloride 102 mmol/L (98-107) 01/31/18 12:40 Carbon Dioxide 24 mmol/L (21-32) 01/31/18 12:40 Anion Gap 11 (8-16) 01/31/18 12:40 BUN 6 mg/dL (7-18) L 01/31/18 12:40 Creatinine 0.5 mg/dL (0.55-1.02) L 01/31/18 12:40 Creat Clearance w eGFR > 60 (>60) 01/31/18 12:40 Calcium 8.4 mg/dL (8.5-10.1) L 01/31/18 12:40 Total Bilirubin 1.2 mg/dL (0.2-1.0) H D 01/31/18 12:40 AST 162 U/L (15-37) H 01/31/18 12:40 ALT 143 U/L (12-78) H 01/31/18 12:40 Alkaline Phosphatase 168 U/L (45-117) H 01/31/18 12:40 Total Protein 7.7 g/dl (6.4-8.2) 01/31/18 12:40 Albumin 3.5 g/dl (3.4-5.0) 01/31/18 12:40 Ambulatory Orders Quetiapine Fumarate [Seroquel] 300 mg PO BID #60 tablet 07/19/17 Methadone [Dolophine -] 80 mg PO DAILY@0600 tablet MDD 1 09/26/17 traZODone HCL [Desyrel -] 50 mg PO HS #30 tablet 11/07/17 Divalproex Sodium [Depakote] 250 mg PO BID 01/02/18 Pantoprazole Sodium [Protonix] 40 mg PO BID #60 tablet. 01/04/18 Gabapentin [Neurontin -] 300 mg PO TID 01/24/18 CT HEAD- Negative ABD US: PENDING ASSESSMENT AND PLAN: 47 F with hx. of ETOH abuse and opiate abuse, hep. c, ETOH dependence, cocaine dependenc, on Methadone who presents with nausea, vomiting and abdominal cramping, being admitted for transaminitis 1.) Nausea and Vomiting - ?Etoh Hepatitis ro choley, etoh withdrawl - Hep. Panel - Zofran- With close monitoring of QtC - Refused MRCP on last visit 01/02/18 - IVF - CIWA protocol and Librum 2.) ETOH Dependence - Detox consult - CIWA/Librium - Banana bag - Thiamine/Folic A tomorrow 3.) Opiate Dependence - On Methadone - Confirm dose 4.) QtC Prolonged - Keep K >4, Mg2+>2 - Recheck EKG - Monitor Zofran/Methadone close with repeat EKG 4.) Dvt Ppx - [facility] in Obs-Med Tele -
[2018-01-31] MEDS ORDERED: ONDANSETRON 4 MG/2 ML VIAL IVPUSH PRN (19:23)
[2018-01-31] MEDS ORDERED: SODIUM CHLORIDE 1,000 ML IV SCH ×2 (19:30→21:00)
[2018-01-31] MEDS ORDERED: chlordiazePOXIDE 5 MG CAPSULE PO PRN (19:31)
--- NOTE | 2018-01-31 19:43 | HP ---
CHIEF COMPLAINT: n/v/detox PCP: does not have one HISTORY OF PRESENT ILLNESS: 47 year old female with a history of polysubstance abuse (opiates, alcohol, cocaine), hypertension, hepatitis C presents to the hospital for a 1 day hx of nausea, vomiting and abdominal discomfort after eating dinner last night. She states that she was also drinking vodka last night (11/04 of a pint) and fell/ hit her head. Patient was just recently at [facility] for detox and rehab (left ) and decided to leave [place], stating that she was going to stop alcohol on her own. She last used cocaine/marijuana on Tuesday (2 days prior to presentation ). Currently she states that she vomited 20 times since yesterday without noticing any blood. She states that she has pain in her mid-epigastrum that radiates to her back. She had an appointment for MRCP here at [facility] but she refused the MRCP prior. Denies chest pain, SOB, diarrhea. ER course was notable for: (1) Mg 1.6 (2) Elevated AST/ALT (3) WBC 12.6 PAST MEDICAL HISTORY: polysubstance abuse (opiates, alcohol, cocaine), hypertension, hepatitis C PAST SURGICAL HISTORY: Social History: Smokin cigarettes a day Alcohol: frequent, last drink yesterday (11/04 of vodka) Drugs: cocaine and opiates Family History: grandmother wiht cancer Allergies metoclopramide HCl [From Reglan] Allergy (Severe, Verified 01/31/18 11:21) dystonic reaction dystonic reaction prochlorperazine maleate [From Compazine] Allergy (Severe, Verified 01/31/18 11: 21) DYSTONIA HOME MEDICATIONS: Home Medications Medication Instructions Recorded Quetiapine Fumarate [Seroquel] 300 mg PO BID #60 tablet 07/19/17 Methadone [Dolophine -] 80 mg PO DAILY@0600 tablet MDD 1 09/26/17 traZODone HCL [Desyrel -] 50 mg PO HS #30 tablet 11/07/17 Divalproex Sodium [Depakote] 250 mg PO BID 01/02/18 Pantoprazole Sodium [Protonix] 40 mg PO BID #60 tablet. 01/04/18 Gabapentin [Neurontin -] 300 mg PO TID 01/24/18 REVIEW OF SYSTEMS CONSTITUTIONAL: Absent: fever, chills, diaphoresis, generalized weakness, malaise, loss of appetite, weight change HEENT: Absent: rhinorrhea, nasal congestion, throat pain, throat swelling, difficulty swallowing, mouth swelling, ear pain, eye pain, visual changes CARDIOVASCULAR: Absent: chest pain, syncope, palpitations, irregular heart rate, lightheadedness , peripheral edema RESPIRATORY: Absent: cough, shortness of breath, dyspnea with exertion, orthopnea, wheezing, stridor, hemoptysis GASTROINTESTINAL:abdominal pain, nausea, vomiting, Absent: diarrhea, constipation, melena, hematochezia GENITOURINARY: Absent: dysuria, frequency, urgency, hesitancy, hematuria, flank pain, genital pain MUSCULOSKELETAL: Absent: myalgia, arthralgia, joint swelling, back pain, neck pain SKIN: Absent: rash, itching, pallor HEMATOLOGIC/IMMUNOLOGIC: Absent: easy bleeding, easy bruising, lymphadenopathy, frequent infections ENDOCRINE: Absent: unexplained weight gain, unexplained weight loss, heat intolerance, cold intolerance NEUROLOGIC: Absent: headache, focal weakness or paresthesias, dizziness, unsteady gait, seizure, mental status changes, bladder or bowel incontinence PSYCHIATRIC: Absent: anxiety, depression, suicidal or homicidal ideation, hallucinations. PHYSICAL EXAMINATION Vital Signs - 24 hr 01/31/18 11:21 Temperature 97.9 F Pulse Rate 77 Respiratory 18 Rate Blood Pressure 166/109 O2 Sat by Pulse 100 Oximetry (%) GENERAL: A&Ox3, mild distress EYES: PERRLA, EOMI, no icterus ENT: Moist mucus membranes NECK: No JVD LUNGS: CTA, no wheezes HEART: RRR, soft, 2/6 systolic murmur noted ABDOMEN: Soft, BS present, tenderness to palpation of midepigastrum MUSCULOSKELETAL: No CVA Tenderness EXTREMITIES: 2+ pulses, no edema. NEUROLOGICAL: Cranial nerves II-XII intact. Laboratory Results - last 24 hr 01/31/18 01/31/18 01/31/18 12:40 12:40 12:40 WBC 12.6 H D RBC 3.85 Hgb 12.8 Hct 37.7 MCV 98.0 H MCH 33.1 MCHC 33.8 RDW 14.5 Plt Count 136 D MPV 10.2 Neutrophils % 90.8 H D Lymphocytes % 5.0 L D Monocytes % 3.9 Eosinophils % 0.0 D Basophils % 0.3 Sodium 137 Potassium 3.6 Chloride 102 Carbon Dioxide 24 Anion Gap 11 BUN 6 L Creatinine 0.5 L Creat Clearance w eGFR > 60 Random Glucose 170 H Lactic Acid 1.1 Calcium 8.4 L Magnesium 1.6 L Total Bilirubin 1.2 H D AST 162 H ALT 143 H Alkaline Phosphatase 168 H Total Protein 7.7 Albumin 3.5 Lipase 248 Serum , Qual Urine Color Urine Appearance Urine pH Ur Specific [place] Urine Protein Urine Glucose (UA) Urine Ketones Urine Blood Urine Nitrite Urine Bilirubin Urine Urobilinogen Ur Leukocyte Esterase Urine WBC (Auto) Urine RBC (Auto) Ur Epithelial Cells Urine Bacteria 01/31/18 01/31/18 14:30 15:20 WBC RBC Hgb Hct MCV MCH MCHC RDW Plt Count MPV Neutrophils % Lymphocytes % Monocytes % Eosinophils % Basophils % Sodium Potassium Chloride Carbon Dioxide Anion Gap BUN Creatinine Creat Clearance w eGFR Random Glucose Lactic Acid Calcium Magnesium Total Bilirubin AST ALT Alkaline Phosphatase Total Protein Albumin Lipase Serum , Qual Negative Urine Color Yellow Urine Appearance Slcloudy Urine pH 7.0 D Ur Specific [place] 1.011 Urine Protein 2+ H Urine Glucose (UA) 3+ H Urine Ketones 2+ H Urine Blood Negative Urine Nitrite Negative Urine Bilirubin Negative Urine Urobilinogen Negative Ur Leukocyte Esterase Negative Urine WBC (Auto) 14 Urine RBC (Auto) 1 Ur Epithelial Cells Rare Urine Bacteria Moderate ASSESSMENT/PLAN: 47 year old female with a hx of polysubstance abuse (opiates, alcohol, cocaine) , hypertension, hepatitis C presents for nausea/vomiting 1 day duration and admitted for alcohol detoxification #Nausea/Vomiting: likely 2/2 alcohol withdrawal, abdominal pain less likely pancreatitis because lipase is low -NPO except meds until patient stops vomiting -banana bag -hydration w/ normal saline -Zofran Q6h PRN -EKG NSR, QTc 480 -librium protocol + librium prn #Opiate Dependence: patient takes 40mg of methadone at [facility] -continue 40mg methadone -Dr. Littlejohn consult appreciated #Hypomagnesemia: mag 1.6 -replete with 2gm magnesium #Hypertension: likely reactive to withdrawal -patient not on any home meds -recheck BP in AM #Elevated Transaminases: likely 2/2 hepatitis vs alcohol abuse -likely 2/2 hepatitis C -Dr. Wyatt consult appreciated -possible MRCP this admission? #Agitation: -continue seroquel as per home dose #Seizure hx: patient did state that she had previous seizures, but they are not "typical", receives meds at [facility] and not from a prescribing physician -continue home depakote #FEN NPO NS @ 125cc/hr replete lytes in AM #Prophylaxis -heparin prophylaxis #Disposition -admit to obs-tele Visit type - Emergency Visit Emergency Visit: Yes ED Registration Date: 01/31/18 Care time: The patient presented to the Emergency Department on the above date and was hospitalized for further evaluation of their emergent condition. - New Patient This patient is new to me today: Yes Date on this admission: 01/31/18 - Critical Care Critical Care patient: No Hospitalist Screening - Colonoscopy Questionnaire Colonoscopy Questionnaire: Colonoscopy Questionnaire - Patient: 50 - 75 years old and never had a screening colonoscopy: Unknown History of colon or rectal polyps, or CA: Unknown History of IBD, Crohn's disease or UC: Unknown History of abdominal radiation therapy as a child: Unknown - Relative: 1 with colon or rectal CA, or polyps at age 60 or younger: Unknown Colon or rectal CA diagnosed at age 45 or younger: Unknown Multiple relatives with colon or rectal CA: Unknown - Outcome: Screening Result: Negative Screen
[2018-01-31] MEDS ORDERED: MULTIVIT INJ. ADULT COMBO WITH VIT K 1 COMBO 10 ML VIAL IV SCH (19:45)
[2018-01-31] MEDS ORDERED: FOLIC ACID INJECTION - 1 MG, THIAMINE HCL 100 MG, MULTIVIT INJECTION ADULT 10 ML in SOD... IVPB ONE (20:30)
[2018-01-31] MEDS ORDERED: chlordiazePOXIDE HCL 25 MG CAPSULE PO PRN (20:34)
[2018-01-31] MEDS ORDERED: KCL 10 MEQ IVPB 10 MEQ/100 ML INFUS.BAG IVPB SCH (21:00)
[2018-01-31] MEDS ORDERED: FAMOTIDINE IV 20 MG/12 ML VIAL IVPUSH SCH (22:00)
[2018-01-31] MEDS ORDERED: QUEtiapine FUMARATE 300 MG TABLET PO SCH (22:00)
[2018-01-31] MEDS: MAGNESIUM 2GM/50ML STERILE WATER IVPB IVPB ONE (22:58)
[2018-01-31] MEDS: chlordiazePOXIDE HCL 25 MG CAPSULE PO SCH (23:00)
[2018-01-31] MEDS ORDERED: KCL 10 MEQ IVPB 10 MEQ/100 ML INFUS.BAG IVPB ONE (23:05)
[2018-01-31] MEDS ORDERED: GABAPENTIN 100 MG CAPSULE (FP) ONE (23:08)
[2018-01-31] MEDS ORDERED: FAMOTIDINE 20 MG/50 ML IVPB 20 MG/50 ML MG IVPB ONE (23:09)
[2018-01-31] MEDS ORDERED: DIVALPROEX SODIUM 125 MG TABLET E.C. ONE (23:09)
[2018-01-31] MEDS ORDERED: PANTOPRAZOLE SODIUM 40 MG/100 ML BAG IVPB ONE (23:09)
[2018-01-31] MEDS: GABAPENTIN 300 MG CAPSULE (FP) PO SCH (23:51)
[2018-01-31] MEDS: DIVALPROEX SODIUM 250 MG TABLET E.C. PO SCH (23:51)
[2018-01-31] MEDS: PANTOPRAZOLE 40 MG TABLET (FP) PO SCH (23:52)
[2018-02-01] MEDS: traZODone HCL 50 MG TABLET (FP) PO SCH ×2 (02:09→21:23)
[2018-02-01] MEDS: QUETIAPINE FUMARATE 200 MG, QUETIAPINE FUMARATE 100 MG PO SCH ×3 (02:12→21:24)
[2018-02-01] MEDS: MAGNESIUM 2GM/50ML STERILE WATER IVPB IVPB ONE (02:56)
[2018-02-01] MEDS ORDERED: METHADONE HCL 40 MG DISPERSABLE TABLET PO SCH ×2 (06:00)
[2018-02-01] MEDS: GABAPENTIN 300 MG CAPSULE (FP) PO SCH ×2 (06:00→16:21)
[2018-02-01] MEDS: chlordiazePOXIDE HCL 25 MG CAPSULE PO SCH ×5 (06:00→22:00)
[2018-02-01] MEDS ORDERED: METHADONE HCL 40 MG DISPERSABLE TABLET PO ONE (07:00)
[2018-02-01 07:32] LABS: HEMATOCRIT 37.8 % (32.4-45.2); HEMOGLOBIN 13.1 GM/dL (10.7-15.3); MCH 34.4 pg (25.7-33.7); MCHC 34.5 g/dl (32.0-36.0); MEAN CELL VOLUME 99.7 fl (80-96); MEAN PLT VOLUME 11.6 fl (7.5-11.1); PLATELET COUNT 105 K/MM3 (134-434); RDW 14.7 % (11.6-15.6); WHITE BLOOD COUNT 13.4 K/mm3 (4.0-10.0)
--- NOTE | 2018-02-01 07:48 | CONSULT ---
Consult Detox [facility] Reason for Current Admission/Consult: substance use Referred by:: alfredo Huggins - History History of Present Illness: 47 yo f with h/o oud , severe on MMTP was on 80mg but because of continued alcohol use her dose was reduced to 40mg daily, referred by [facility] for admission because of intoxication, unable to medicate with methadone, abdo pain and continued nausea nd vomiting 2/2 alcohol use do. started on libirum detox, condition now much imporved. patient was recently in inpatient detox and is not eleigible to return and is refusing inpatient rehab at [facility] - History Source History Provided By: Patient, Medical Record, Caregiver Limitations to Obtaining History: No Limitations - Alcohol/Substance Use Hx Alcohol Use: Yes Hx Substance Use: Yes Hx Substance Use Treatment: Yes (MMTP) - Past Medical History Gastrointestinal: Yes: Pancreatitis Hepatobiliary: Yes: Hepatitis C ...LMP: 12/11/17 ...: No Infectious Disease: Yes: HIV, Other (hcv) Psych: Yes: Addictions, Bipolar - Past Surgical History Past Surgical History: Yes: None - Significant Medical Findings: 47 yo f wiht oud, in opioid withrawal ecasue her dose was rapidly decreased from 80-40mg becasue of alcohyol use, also haveing alcohol withdrawawl sx but condition much imporved on daily methadone edose of 40mg and libirum detox. medically stable, no abdo pain or n and v reported CIWA Score - CIWA Score Nausea/Vomitin-Mild Nausea/No Vomiting Muscle Tremors: 2 Anxiety: 2 Agitation: 2 Paroxysmal Sweats: 1-Minimal Palms Moist Orientation: 0-Oriented Tacttile Disturbances: 0-None Auditory Disturbances: 0-None Visual Disturbances: 0-None Headache: 0-None Present CIWA-Ar Total Score: 8 Assessment Plan - Diagnosis (1) Alcohol intoxication Status: Acute (2) Bipolar disorder Status: Chronic Comment: As per self-report.Known to [facility] clinic.Prescribed seroquel.Non-adherent to medications. (3) Cannabis dependence, uncomplicated Status: Chronic (4) GERD (gastroesophageal reflux disease) Status: Chronic Qualifiers: (5) Hepatitis C Status: Chronic Qualifiers: (6) Nicotine dependence Status: Chronic Qualifiers: (7) Opioid dependence on agonist therapy Status: Chronic (8) Pancreatitis Status: Chronic (9) Alcohol dependence with uncomplicated withdrawal Status: Resolved (10) Alcoholic gastritis without bleeding Status: Resolved (11) Dilated bile duct Status: Resolved (12) Dilated pancreatic duct Status: Resolved - Plan Plan: chart, imaging and labs reviewd. Patient examined andhisotry taken. care discussed with medical team and team at [facility]. REcommend: 1. cont libirum detox for alcohol use 2. cont methadone 409mg daily ofr OUD, severe 3. fluids, and viatamins. 4. when patient can be discharged she is to return to [facility] or rehab -0 requesting inpatient rehab at [facility] or [facility], says she is too embarrassed to return to [facility]/ - Medication Detox Regimen/Protocol: Danika
[2018-02-01] MEDS ORDERED: ONDANSETRON *ODT* 4 MG TABLET SL PRN (07:50)
[2018-02-01 07:53] LABS: ANION GAP 9 (8-16); BLOOD UREA NITROGEN 10 mg/dL (7-18); CALCIUM 7.9 mg/dL (8.5-10.1); CHLORIDE 104 mmol/L (98-107); CO2 25 mmol/L (21-32); CREATININE 0.6 mg/dL (0.55-1.02); GLUCOSE,RANDOM 90 mg/dL (74-106); MAGNESIUM 2.8 mg/dL (1.8-2.4); PHOSPHOROUS 2.6 mg/dL (2.5-4.9); POTASSIUM 3.4 mmol/L (3.5-5.1); SODIUM 138 mmol/L (136-145)
[2018-02-01 08:14] LABS: INR 1.14 (0.82-1.09); PROTHROMBIN TIME (PATIENT) 12.9 SEC (9.98-11.88)
[2018-02-01 08:17] LABS: ACTIVATED PTT 29.6 SECONDS (26.9-34.4)
[2018-02-01] MEDS ORDERED: POTASSIUM CHLORIDE TABS 20 MEQ TABLET.ER (FP) PO ONE (08:40)
--- NOTE | 2018-02-01 09:05 | CON.GI ---
Consult Consult Specialty:: GI Reason for Consultation:: Abnormal liver chemistry - History of Present Illness History of Present Illness: chart reviewed. Events noted. The patient is known to GI service from prior admission 1 months ago. Per admission: 47 year old female with a history of polysubstance abuse ( opiates, alcohol, cocaine), hypertension, hepatitis C presents to the hospital for a 1 day hx of nausea, vomiting and abdominal discomfort after eating dinner last night. She states that she was also drinking vodka last night (11/04 of a pint) and fell/hit her head. Patient was just recently at [facility] for detox and rehab (left 01/25) and decided to leave [place], stating that she was going to stop alcohol on her own. She last used cocaine/marijuana on Tuesday (2 days prior to presentation). Currently she states that she vomited 20 times since yesterday without noticing any blood. She states that she has pain in her mid- epigastrum that radiates to her back. She had an appointment for MRCP here at [facility] recently but she refused the MRCP prior. Denies chest pain, SOB, diarrhea. At the time of this encountered, the patient appears not in distress, awake, alert. Complaints of dry mouth. Reports no longer feeling nauseous. No diarrhea, abdominal pain, dysphagia, odynophagia, dyspepsia. Reports no fever, or chills. Continues to drink alcohol and use street drugs. Embarrassed to return to [facility]. - History Source History Provided By: Patient, Medical Record - Past Medical History Gastrointestinal: Yes: Pancreatitis Hepatobiliary: Yes: Hepatitis C ...LMP: 12/11/17 ...: No Infectious Disease: Yes: HIV, Other (hcv) Psych: Yes: Addictions, Bipolar - Past Surgical History Past Surgical History: Yes: None - Alcohol/Substance Use Hx Alcohol Use: Yes Number of Drinks Daily: 4 (4 pints a day) History of Substance Use: reports: Heroin - Smoking History Smoking history: Current every day smoker Have you smoked in the past 12 months: Yes Aproximately how many cigarettes per day: 3 - Social History ADL: Independent History of Recent Travel: No Home Medications - Allergies Allergies/Adverse Reactions: Allergies Allergy/AdvReac Type Severity Reaction Status Date / Time metoclopramide HCl Allergy Severe dystonic Verified 01/31/18 11:21 [From Reglan] reaction prochlorperazine maleate Allergy Severe DYSTONIA Verified 01/31/18 11:21 [From Compazine] - Home Medications Home Medications: Ambulatory Orders Quetiapine Fumarate [Seroquel] 300 mg PO BID #60 tablet 07/19/17 Methadone [Dolophine -] 80 mg PO DAILY@0600 tablet MDD 1 09/26/17 traZODone HCL [Desyrel -] 50 mg PO HS #30 tablet 11/07/17 Divalproex Sodium [Depakote] 250 mg PO BID 01/02/18 Pantoprazole Sodium [Protonix] 40 mg PO BID #60 tablet. 01/04/18 Gabapentin [Neurontin -] 300 mg PO TID 01/24/18 Family Disease History - Family Disease History Family Disease History: Diabetes: Grandparent (mgm - dm, htn), Other: Father ( CVA), Mother (alive, well), Brother ( AIDS), Sister ( THROAT CA) Review of Systems Findings/Remarks: As per H&P and HPI Physical Exam-GI Vital Signs: Vital Signs Temperature 99 F 02/01/18 06:00 Pulse Rate 112 H 02/01/18 06:00 Respiratory Rate 17 02/01/18 06:00 Blood Pressure 102/68 02/01/18 06:00 O2 Sat by Pulse Oximetry (%) 96 02/01/18 06:00 Constitutional: Yes: Anxious Eyes: Yes: Conjunctiva Clear HENT: Yes: Atraumatic Neck: Yes: Supple Cardiovascular: Yes: Tachycardia Respiratory: Yes: Regular Gastrointestinal Inspection: No: Ascites, Distention ...Auscultate: Yes: Normoactive Bowel Sounds ...Palpate: Yes: Soft. No: Firm/Rigid, Guarding, Mass, Tenderness, Rebound Neurological: Yes: Alert, Oriented. No: Seizure, Tremors Labs: CBC, BMP 02/01/18 07:04 02/01/18 07:04 INR, PTT INR 1.14 (0.82-1.09) 02/01/18 07:04 Laboratory Results - last 24 hr 01/31/18 01/31/18 01/31/18 12:40 12:40 12:40 WBC 12.6 H D RBC 3.85 Hgb 12.8 Hct 37.7 MCV 98.0 H MCH 33.1 MCHC 33.8 RDW 14.5 Plt Count 136 D MPV 10.2 Neutrophils % 90.8 H D Lymphocytes % 5.0 L D Monocytes % 3.9 Eosinophils % 0.0 D Basophils % 0.3 PT with INR INR PTT (Actin FS) Sodium 137 Potassium 3.6 Chloride 102 Carbon Dioxide 24 Anion Gap 11 BUN 6 L Creatinine 0.5 L Creat Clearance w eGFR > 60 Random Glucose 170 H Lactic Acid 1.1 Calcium 8.4 L Phosphorus Magnesium 1.6 L Total Bilirubin 1.2 H D AST 162 H ALT 143 H Alkaline Phosphatase 168 H Total Protein 7.7 Albumin 3.5 Lipase 248 Serum , Qual Urine Color Urine Appearance Urine pH Ur Specific Nelson Urine Protein Urine Glucose (UA) Urine Ketones Urine Blood Urine Nitrite Urine Bilirubin Urine Urobilinogen Ur Leukocyte Esterase Urine WBC (Auto) Urine RBC (Auto) Ur Epithelial Cells Urine Bacteria 01/31/18 01/31/18 02/01/18 14:30 15:20 07:04 WBC 13.4 H RBC 3.80 Hgb 13.1 Hct 37.8 MCV 99.7 H MCH 34.4 H MCHC 34.5 RDW 14.7 Plt Count 105 L D MPV 11.6 H D Neutrophils % Lymphocytes % Monocytes % Eosinophils % Basophils % PT with INR INR PTT (Actin FS) Sodium Potassium Chloride Carbon Dioxide Anion Gap BUN Creatinine Creat Clearance w eGFR Random Glucose Lactic Acid Calcium Phosphorus Magnesium Total Bilirubin AST ALT Alkaline Phosphatase Total Protein Albumin Lipase Serum , Qual Negative Urine Color Yellow Urine Appearance Slcloudy Urine pH 7.0 D Ur Specific Nelson 1.011 Urine Protein 2+ H Urine Glucose (UA) 3+ H Urine Ketones 2+ H Urine Blood Negative Urine Nitrite Negative Urine Bilirubin Negative Urine Urobilinogen Negative Ur Leukocyte Esterase Negative Urine WBC (Auto) 14 Urine RBC (Auto) 1 Ur Epithelial Cells Rare Urine Bacteria Moderate 02/01/18 02/01/18 07:04 07:04 WBC RBC Hgb Hct MCV MCH MCHC RDW Plt Count MPV Neutrophils % Lymphocytes % Monocytes % Eosinophils % Basophils % PT with INR 12.90 H INR 1.14 PTT (Actin FS) 29.6 Sodium 138 Potassium 3.4 L Chloride 104 Carbon Dioxide 25 Anion Gap 9 BUN 10 Creatinine 0.6 Creat Clearance w eGFR Random Glucose 90 Lactic Acid Calcium 7.9 L Phosphorus 2.6 Magnesium 2.8 H Total Bilirubin AST ALT Alkaline Phosphatase Total Protein Albumin Lipase Serum , Qual Urine Color Urine Appearance Urine pH Ur Specific Nelson Urine Protein Urine Glucose (UA) Urine Ketones Urine Blood Urine Nitrite Urine Bilirubin Urine Urobilinogen Ur Leukocyte Esterase Urine WBC (Auto) Urine RBC (Auto) Ur Epithelial Cells Urine Bacteria Imaging - Results Cat Scan: Report Reviewed ( January 02, 2018 mild CBD dilation without obvious defects, or pancreatic lesions) Problem List - Problems (1) Alcohol dependence with uncomplicated withdrawal Code(s): F10.230 - ALCOHOL DEPENDENCE WITH WITHDRAWAL, UNCOMPLICATED (2) Alcohol intoxication Code(s): F10.929 - ALCOHOL USE, UNSPECIFIED WITH INTOXICATION, UNSPECIFIED (3) Cannabis dependence, uncomplicated Code(s): F12.20 - CANNABIS DEPENDENCE, UNCOMPLICATED Assessment/Plan A 47-year-old female who continues to drink alcohol and abuse street drugs. presents with likely mild alcoholic hepatitis superimposed on chronic viral hepatitis. Asymptomatic this morning and comfortable. Blood work revealed, again, mild cholestasis and hepatitis. She also had mild leukocytosis with normal PT, hemoglobin, BUN, creatinine. She has hepatitis C. She is not immune to hepatitis B. Substance withdrawal protocol and counseling. Monitor, and supplement electrolytes as needed. Vaccinated against hepatitis B. Questioning patient's ability to follow-up for shots #2 and #3. Encouraged to return to [facility] for rehab. If she is successful, she can follow-up with us as outpatient for hepatitis C management.
[2018-02-01] MEDS ORDERED: THIAMINE HCL 100 MG TABLET (FP) PO SCH ×2 (10:00→22:00)
[2018-02-01] MEDS ORDERED: MAGNESIUM OXIDE 400 MG TABLET (FP) PO SCH (10:00)
[2018-02-01] MEDS ORDERED: PT OWN MED DRAWER 7, Y5N ONE ×2 (10:16→18:04)
[2018-02-01] MEDS: DIVALPROEX SODIUM 250 MG TABLET E.C. PO SCH ×2 (10:26→23:18)
[2018-02-01] MEDS: PANTOPRAZOLE 40 MG TABLET (FP) PO SCH ×2 (10:26→21:23)
[2018-02-01] MEDS: PRENATAL VITAMINS W/ FOLIC ACID TABLET (FP) PO SCH (12:07)
--- NOTE | 2018-02-01 13:18 | EKG ---
Test Reason : Blood Pressure : / mmHG Vent. Rate : 076 BPM Atrial Rate : 076 BPM P-R Int : 130 ms QRS Dur : 088 ms QT Int : 434 ms P-R-T Axes : 059 056 059 degrees QTc Int : 488 ms NORMAL SINUS RHYTHM VOLTAGE CRITERIA FOR LEFT VENTRICULAR HYPERTROPHY CANNOT RULE OUT SEPTAL INFARCT (CITED ON OR BEFORE 12-JAN-2018) T WAVE ABNORMALITY, CONSIDER ANTERIOR ISCHEMIA ABNORMAL ECG WHEN COMPARED WITH ECG OF 12-JAN-2018 10:36, NO SIGNIFICANT CHANGE WAS FOUND Confirmed by NICOLE SÁNCHEZ, LIZZIE ([id number]) on 02/01/2018 1:17:57 PM Referred By: Confirmed By:LIZZIE RIVERA MD
--- NOTE | 2018-02-01 14:14 | PN ---
Physical Exam: SUBJECTIVE: Patient seen and examined at bedside. Patient feels much better today. No episodes of vomiting overnight. Patient is hungry and wishes to eat. OBJECTIVE: Vital Signs Period Temp Pulse Resp BP Sys/Moore Pulse Ox Last 24 Hr 98.7 F-99.1 F 84-123 16-18 102-148/59-95 96-99 GENERAL: The patient is awake, alert, and fully oriented, in no acute distress. HEAD: Normocephalic. There is a bruise on the right side of the patient's face. EYES: PERRL, extraocular movements intact, sclera anicteric, conjunctiva clear. No ptosis. NECK: Trachea midline, full range of motion, supple. LUNGS: Breath sounds equal, clear to auscultation bilaterally, no wheezes, no crackles, no accessory muscle use. HEART: Regular rate and rhythm, S1, S2 without murmur, rub or gallop. ABDOMEN: Soft, nondistended, normoactive bowel sounds. There is tenderness to palpation in the RUQ as well as in the epigastrium. Palpation of either area causes radiation of pain to the back. EXTREMITIES: 2+ pulses, warm, well-perfused, no edema. NEUROLOGICAL: Cranial nerves II through X grossly intact. Normal speech, gait not observed. PSYCH: Normal mood, normal affect. SKIN: Warm, dry, normal turgor, no rashes or lesions noted Laboratory Results - last 24 hr 01/31/18 01/31/18 02/01/18 14:30 15:20 07:04 WBC 13.4 H RBC 3.80 Hgb 13.1 Hct 37.8 MCV 99.7 H MCH 34.4 H MCHC 34.5 RDW 14.7 Plt Count 105 L D MPV 11.6 H D PT with INR INR PTT (Actin FS) Sodium Potassium Chloride Carbon Dioxide Anion Gap BUN Creatinine Random Glucose Calcium Phosphorus Magnesium Serum , Qual Negative Urine Color Yellow Urine Appearance Slcloudy Urine pH 7.0 D Ur Specific [place] 1.011 Urine Protein 2+ H Urine Glucose (UA) 3+ H Urine Ketones 2+ H Urine Blood Negative Urine Nitrite Negative Urine Bilirubin Negative Urine Urobilinogen Negative Ur Leukocyte Esterase Negative Urine WBC (Auto) 14 Urine RBC (Auto) 1 Ur Epithelial Cells Rare Urine Bacteria Moderate 02/01/18 02/01/18 07:04 07:04 WBC RBC Hgb Hct MCV MCH MCHC RDW Plt Count MPV PT with INR 12.90 H INR 1.14 PTT (Actin FS) 29.6 Sodium 138 Potassium 3.4 L Chloride 104 Carbon Dioxide 25 Anion Gap 9 BUN 10 Creatinine 0.6 Random Glucose 90 Calcium 7.9 L Phosphorus 2.6 Magnesium 2.8 H Serum , Qual Urine Color Urine Appearance Urine pH Ur Specific [place] Urine Protein Urine Glucose (UA) Urine Ketones Urine Blood Urine Nitrite Urine Bilirubin Urine Urobilinogen Ur Leukocyte Esterase Urine WBC (Auto) Urine RBC (Auto) Ur Epithelial Cells Urine Bacteria Active Medications Generic Name Dose Route Start Last Admin Trade Name Freq PRN Reason Stop Dose Admin Chlordiazepoxide HCl 50 mg 01/31/18 23:00 02/01/18 11:49 Librium - PO 02/01/18 17:01 50 mg [id number] GONZALEZ Administration Chlordiazepoxide HCl 25 mg 02/01/18 23:00 Librium - PO 02/02/18 17:01 [id number] GONZALEZ Chlordiazepoxide HCl 15 mg 02/02/18 23:00 Librium - PO 02/03/18 17:01 [id number] GONZALEZ Chlordiazepoxide HCl 25 mg 01/31/18 20:34 Librium - PO 02/03/18 20:33 Q4H PRN WITHDRAWAL(CONT SUBST) Divalproex Sodium 250 mg 01/31/18 22:00 02/01/18 10:26 Depakote - PO 250 mg BID GONZALEZ Administration Gabapentin 300 mg 01/31/18 22:00 02/01/18 06:00 Neurontin - PO 300 mg TID GONZALEZ Administration Sodium Chloride 1,000 mls @ 100 mls/hr 01/31/18 19:30 01/31/18 22:58 Normal Saline - IV 100 mls/hr ASDIR GNOZALEZ Administration Magnesium Oxide 400 mg 02/01/18 10:00 02/01/18 12:07 Mag-Ox - PO Not Given BID GONZALEZ Methadone HCl 40 mg 02/01/18 06:00 Dolophine - PO DAILY@0600 GONZALEZ Ondansetron HCl 8 mg 02/01/18 07:50 Zofran Odt - SL Q6H PRN NAUSEA AND/OR VOMITING Pantoprazole Sodium 40 mg 01/31/18 22:00 02/01/18 10:26 Protonix - PO 40 mg BID GONZALEZ Administration Multivit/Folic Acid/Iron 1 tab 02/01/18 10:00 02/01/18 12:07 Vitamins (Sjr) - PO Not Given DAILY GONZALEZ Quetiapine Fumarate 200 mg/ 300 mg 02/01/18 02:15 02/01/18 10:26 Quetiapine Fumarate 100 mg PO Not Given BID GONZALEZ Thiamine HCl 100 mg 02/01/18 22:00 Vitamin B1 - PO HS GONZALEZ Trazodone HCl 50 mg 01/31/18 22:00 02/01/18 02:09 Desyrel - PO 50 mg HS GONZALEZ Administration ASSESSMENT/PLAN: The patient is a 47 yo f w/ PMH polysubstance abuse, HTN, hep C admitted for alcohol detoxification. #Nausea and vomiting likely 2/2 alcohol withdrawal -No episodes of n/v overnight -diet advanced to clear liquid -s/p banana bag -NS @ 100 -Zofran Q6h PRN -librium protocol + librium prn #Right side face bruise -2/2 to patient "walking into a wall" and falling down -ct head negative. -will monitor. #Opiate Dependence -continue 40mg methadone from [facility] -Detox consult #Elevated Transaminases -GI consult: transaminitis likely 2/2 chronic hep c and ETOH abuse -can follow as outpt after detox -US abdomen shows dilated CBD and pancreatic duct -f/u MRCP #Seizure hx -per pt, has hx of seizures; meds received from [facility]. -continue home depakote #Hypomagnesemia- resolved -mag 1.6 on admission -repleted with 2gm magnesium -AM rpt 2.5 #Hypertension- controlled -patient not on any home meds -rpt BP trending down #Agitation- resolved -continue seroquel as per home dose #FEN -NS@100 -Hypokalemia; repleted #Prophylaxis -HSQ 5ku TID #Disposition -admit to obs-tele Visit type - Emergency Visit Emergency Visit: Yes ED Registration Date: 02/01/18 Care time: The patient presented to the Emergency Department on the above date and was hospitalized for further evaluation of their emergent condition. - New Patient This patient is new to me today: Yes Date on this admission: 02/01/18 - Critical Care Critical Care patient: No
--- NOTE | 2018-02-01 14:32 | PN ---
Progress Note, Physician History of Present Illness: no events. Not in distress. Ultrasound of the abdomen reveals dilated CBD and PD without intraluminal defects. - Current Medication List Current Medications: Active Medications Chlordiazepoxide HCl (Librium -) 50 mg PO [id number] [facility] Stop: 02/01/18 17:01 Last Admin: 02/01/18 11:49 Dose: 50 mg Chlordiazepoxide HCl (Librium -) 25 mg PO [id number] [facility] Stop: 02/02/18 17:01 Chlordiazepoxide HCl (Librium -) 15 mg PO [id number] [facility] Stop: 02/03/18 17:01 Chlordiazepoxide HCl (Librium -) 25 mg PO Q4H PRN PRN Reason: WITHDRAWAL(CONT SUBST) Stop: 02/03/18 20:33 Divalproex Sodium (Depakote -) 250 mg PO BID [facility] Last Admin: 02/01/18 10:26 Dose: 250 mg Gabapentin (Neurontin -) 300 mg PO TID [facility] Last Admin: 02/01/18 06:00 Dose: 300 mg Sodium Chloride (Normal Saline -) 1,000 mls @ 100 mls/hr IV ASDIR [facility] Last Admin: 01/31/18 22:58 Dose: 100 mls/hr Magnesium Oxide (Mag-Ox -) 400 mg PO BID [facility] Last Admin: 02/01/18 12:07 Dose: Not Given Methadone HCl (Dolophine -) 40 mg PO DAILY@0600 [facility] Ondansetron HCl (Zofran Odt -) 8 mg SL Q6H PRN PRN Reason: NAUSEA AND/OR VOMITING Pantoprazole Sodium (Protonix -) 40 mg PO BID [facility] Last Admin: 02/01/18 10:26 Dose: 40 mg Multivit/Folic Acid/Iron ( Vitamins (Sjr) -) 1 tab PO DAILY [facility] Last Admin: 02/01/18 12:07 Dose: Not Given Quetiapine Fumarate 200 mg/ (Quetiapine Fumarate 100 mg) 300 mg PO BID [facility] Last Admin: 02/01/18 10:26 Dose: Not Given Thiamine HCl (Vitamin B1 -) 100 mg PO [facility] Trazodone HCl (Desyrel -) 50 mg PO HS [facility] Last Admin: 02/01/18 02:09 Dose: 50 mg - Objective Vital Signs: Vital Signs Temperature 99 F 02/01/18 09:40 Pulse Rate 99 H 02/01/18 09:40 Respiratory Rate 17 02/01/18 09:40 Blood Pressure 104/59 02/01/18 09:40 O2 Sat by Pulse Oximetry (%) 96 02/01/18 09:40 Constitutional: Yes: Calm HENT: Yes: Atraumatic Neck: Yes: Supple Cardiovascular: Yes: Regular Rate and Rhythm Gastrointestinal: Yes: Soft. No: Tenderness Labs: CBC, BMP 02/01/18 07:04 02/01/18 07:04 INR, PTT INR 1.14 (0.82-1.09) 02/01/18 07:04 Laboratory Last Values WBC 13.4 K/mm3 (4.0-10.0) H 02/01/18 07:04 RBC 3.80 M/mm3 (3.60-5.2) 02/01/18 07:04 Hgb 13.1 GM/dL (10.7-15.3) 02/01/18 07:04 Hct 37.8 % (32.4-45.2) 02/01/18 07:04 MCV 99.7 fl (80-96) H 02/01/18 07:04 MCH 34.4 pg (25.7-33.7) H 02/01/18 07:04 MCHC 34.5 g/dl (32.0-36.0) 02/01/18 07:04 RDW 14.7 % (11.6-15.6) 02/01/18 07:04 Plt Count 105 K/MM3 (134-434) L D 02/01/18 07:04 MPV 11.6 fl (7.5-11.1) H D 02/01/18 07:04 Neutrophils % 90.8 % (42.8-82.8) H D 01/31/18 12:40 Lymphocytes % 5.0 % (8-40) L D 01/31/18 12:40 Monocytes % 3.9 % (3.8-10.2) 01/31/18 12:40 Eosinophils % 0.0 % (0-4.5) D 01/31/18 12:40 Basophils % 0.3 % (0-2.0) 01/31/18 12:40 PT with INR 12.90 SEC (9.98-11.88) H 02/01/18 07:04 INR 1.14 (0.82-1.09) 02/01/18 07:04 PTT (Actin FS) 29.6 SECONDS (26.9-34.4) 02/01/18 07:04 Sodium 138 mmol/L (136-145) 02/01/18 07:04 Potassium 3.4 mmol/L (3.5-5.1) L 02/01/18 07:04 Chloride 104 mmol/L (98-107) 02/01/18 07:04 Carbon Dioxide 25 mmol/L (21-32) 02/01/18 07:04 Anion Gap 9 (8-16) 02/01/18 07:04 BUN 10 mg/dL (7-18) 02/01/18 07:04 Creatinine 0.6 mg/dL (0.55-1.02) 02/01/18 07:04 Creat Clearance w eGFR > 60 (>60) 01/31/18 12:40 Random Glucose 90 mg/dL (74-106) 02/01/18 07:04 Lactic Acid 1.1 mmol/L (0.0-2.0) 01/31/18 12:40 Calcium 7.9 mg/dL (8.5-10.1) L 02/01/18 07:04 Phosphorus 2.6 mg/dL (2.5-4.9) 02/01/18 07:04 Magnesium 2.8 mg/dL (1.8-2.4) H 02/01/18 07:04 Total Bilirubin 1.2 mg/dL (0.2-1.0) H D 01/31/18 12:40 AST 162 U/L (15-37) H 01/31/18 12:40 ALT 143 U/L (12-78) H 01/31/18 12:40 Alkaline Phosphatase 168 U/L (45-117) H 01/31/18 12:40 Total Protein 7.7 g/dl (6.4-8.2) 01/31/18 12:40 Albumin 3.5 g/dl (3.4-5.0) 01/31/18 12:40 Lipase 248 U/L (73-393) 01/31/18 12:40 Serum , Qual Negative 01/31/18 14:30 Urine Color Yellow 01/31/18 15:20 Urine Appearance Slcloudy 01/31/18 15:20 Urine pH 7.0 (5.0-8.0) D 01/31/18 15:20 Ur Specific [place] 1.011 (1.001-1.035) 01/31/18 15:20 Urine Protein 2+ (NEGATIVE) H 01/31/18 15:20 Urine Glucose (UA) 3+ (NEGATIVE) H 01/31/18 15:20 Urine Ketones 2+ (NEGATIVE) H 01/31/18 15:20 Urine Blood Negative (NEGATIVE) 01/31/18 15:20 Urine Nitrite Negative (NEGATIVE) 01/31/18 15:20 Urine Bilirubin Negative (<2.0 mg/dL) 01/31/18 15:20 Urine Urobilinogen Negative mg/dL (0.2-1.0) 01/31/18 15:20 Ur Leukocyte Esterase Negative (NEGATIVE) 01/31/18 15:20 Urine WBC (Auto) 14 /hpf (3-5) 01/31/18 15:20 Urine RBC (Auto) 1 /hpf (0-3) 01/31/18 15:20 Ur Epithelial Cells Rare /HPF (FEW) 01/31/18 15:20 Urine Bacteria Moderate /hpf (NONE SEEN) 01/31/18 15:20 Problem List - Problems (1) Alcohol dependence with uncomplicated withdrawal Code(s): F10.230 - ALCOHOL DEPENDENCE WITH WITHDRAWAL, UNCOMPLICATED (2) Alcohol intoxication Code(s): F10.929 - ALCOHOL USE, UNSPECIFIED WITH INTOXICATION, UNSPECIFIED (3) Cannabis dependence, uncomplicated Code(s): F12.20 - CANNABIS DEPENDENCE, UNCOMPLICATED (4) Dilated bile duct Code(s): K83.8 - OTHER SPECIFIED DISEASES OF BILIARY TRACT (5) Dilated pancreatic duct Code(s): K86.89 - OTHER SPECIFIED DISEASES OF PANCREAS Assessment/Plan A 47-year-old female who continues to drink alcohol and abuse street drugs. presents with likely mild alcoholic hepatitis superimposed on chronic viral hepatitis. Asymptomatic this morning and comfortable. Blood work revealed, again, mild cholestasis and hepatitis. She also had mild leukocytosis with normal PT, hemoglobin, BUN, creatinine. She has hepatitis C. She is not immune to hepatitis B. Substance withdrawal protocol and counseling. Monitor, and supplement electrolytes as needed. Vaccinated against hepatitis B. Questioning patient's ability to follow-up for shots #2 and #3. Encouraged to return to [facility] for rehab. If she is successful, she can follow-up with us as outpatient for hepatitis C management MRCP/MRI
--- NOTE | 2018-02-01 14:49 | PN ---
Teaching Attending Note Name of Resident: Juan Luis Evans ATTENDING PHYSICIAN STATEMENT I saw and evaluated the patient. I reviewed the resident's note and discussed the case with the resident. I agree with the resident's findings and plan as documented. SUBJECTIVE: OBJECTIVE: Vital Signs Period Temp Pulse Resp BP Sys/Moore Pulse Ox Last 24 Hr 98.7 F-99.1 F 84-123 16-18 102-148/59-95 96-99 HEART: S1S2, tachycardic LUNGS: Clear ABDOMEN: Soft, (+) epigastric tenderness to deep palpation, non-distended, normal BS EXTREMITIES: No edema Laboratory Results - last 24 hr 01/31/18 01/31/18 02/01/18 14:30 15:20 07:04 WBC 13.4 H RBC 3.80 Hgb 13.1 Hct 37.8 MCV 99.7 H MCH 34.4 H MCHC 34.5 RDW 14.7 Plt Count 105 L D MPV 11.6 H D PT with INR INR PTT (Actin FS) Sodium Potassium Chloride Carbon Dioxide Anion Gap BUN Creatinine Random Glucose Calcium Phosphorus Magnesium Serum , Qual Negative Urine Color Yellow Urine Appearance Slcloudy Urine pH 7.0 D Ur Specific [place] 1.011 Urine Protein 2+ H Urine Glucose (UA) 3+ H Urine Ketones 2+ H Urine Blood Negative Urine Nitrite Negative Urine Bilirubin Negative Urine Urobilinogen Negative Ur Leukocyte Esterase Negative Urine WBC (Auto) 14 Urine RBC (Auto) 1 Ur Epithelial Cells Rare Urine Bacteria Moderate 02/01/18 02/01/18 07:04 07:04 WBC RBC Hgb Hct MCV MCH MCHC RDW Plt Count MPV PT with INR 12.90 H INR 1.14 PTT (Actin FS) 29.6 Sodium 138 Potassium 3.4 L Chloride 104 Carbon Dioxide 25 Anion Gap 9 BUN 10 Creatinine 0.6 Random Glucose 90 Calcium 7.9 L Phosphorus 2.6 Magnesium 2.8 H Serum , Qual Urine Color Urine Appearance Urine pH Ur Specific [place] Urine Protein Urine Glucose (UA) Urine Ketones Urine Blood Urine Nitrite Urine Bilirubin Urine Urobilinogen Ur Leukocyte Esterase Urine WBC (Auto) Urine RBC (Auto) Ur Epithelial Cells Urine Bacteria Current Medications Generic Name Dose Route Start Last Admin Trade Name Freq PRN Reason Stop Dose Admin Chlordiazepoxide HCl 50 mg 01/31/18 23:00 02/01/18 11:49 Librium - PO 02/01/18 17:01 50 mg [id number] GONZALEZ Administration Chlordiazepoxide HCl 25 mg 02/01/18 23:00 Librium - PO 02/02/18 17:01 [id number] GONZALEZ Chlordiazepoxide HCl 15 mg 02/02/18 23:00 Librium - PO 02/03/18 17:01 [id number] GONZALEZ Chlordiazepoxide HCl 25 mg 01/31/18 20:34 Librium - PO 02/03/18 20:33 Q4H PRN WITHDRAWAL(CONT SUBST) Divalproex Sodium 250 mg 01/31/18 22:00 02/01/18 10:26 Depakote - PO 250 mg BID GONZALEZ Administration Gabapentin 300 mg 01/31/18 22:00 02/01/18 06:00 Neurontin - PO 300 mg TID GONZALEZ Administration Sodium Chloride 1,000 mls @ 100 mls/hr 01/31/18 19:30 01/31/18 22:58 Normal Saline - IV 100 mls/hr ASDIR GONZALEZ Administration Magnesium Oxide 400 mg 02/01/18 10:00 02/01/18 12:07 Mag-Ox - PO Not Given BID GONZALEZ Methadone HCl 40 mg 02/01/18 06:00 Dolophine - PO DAILY@0600 GONZALEZ Ondansetron HCl 8 mg 02/01/18 07:50 Zofran Odt - SL Q6H PRN NAUSEA AND/OR VOMITING Pantoprazole Sodium 40 mg 01/31/18 22:00 02/01/18 10:26 Protonix - PO 40 mg BID GONZALEZ Administration Multivit/Folic Acid/Iron 1 tab 02/01/18 10:00 02/01/18 12:07 Vitamins (Sjr) - PO Not Given DAILY GONZALEZ Quetiapine Fumarate 200 mg/ 300 mg 02/01/18 02:15 02/01/18 10:26 Quetiapine Fumarate 100 mg PO Not Given BID GONZALEZ Thiamine HCl 100 mg 02/01/18 22:00 Vitamin B1 - PO HS GONZALEZ Trazodone HCl 50 mg 01/31/18 22:00 02/01/18 02:09 Desyrel - PO 50 mg HS GONZALEZ Administration ASSESSMENT AND PLAN: This is a 47 year old woman with a history of polysubstance abuse, HTN, hepatitis C, bipolar disorder who presented to the ED with nausea and vomiting x 1 day. 1. Alcohol withdrawal, uncomplicated - Continue Librium detox 2. Epigastric pain with nausea and vomiting, likely gastritis and alcohol withdrawal - Continue IV fluid, Protonix, Zofran as needed 3. Continue alcohol dependence - Continue thiamine, multivitamin, folic acid 4. Opioid dependence - Continue Methadone 5. Hypomagnesemia - Improved 6. Hypokalemia - Replete potassium 7. Hypertension - Not on any meds 8. Hepatic transaminitis secondary to alcohol, chronic hepatitis C - Monitor LFTs 9. Chronic hepatitis C 10. Bipolar disorder - Continue Trazodone, Seroquel, Depakote
[2018-02-01] MEDS ORDERED: ZOLPIDEM TARTRATE 5 MG TABLET PO PRN (15:21)
[2018-02-01] MEDS ORDERED: LOPERAMIDE HCL 2 MG CAPSULE PO ONE (15:22)
[2018-02-01] MEDS ORDERED: LOPERAMIDE HCL 2 MG CAPSULE PO PRN (15:22)
--- NOTE | 2018-02-01 15:27 | MSN ---
Progress Note (short form) - Note Progress Note: SUBJECTIVE: Patient seen and examined at bedside this morning. Patient states that she did not vomit overnight and is no longer nausea. She has been tolerating drinking Powerade. She continues to complain of epigastric pain that radiates into her right flank. She admits to right facial pain and right knee pain. She also complains of dysarthria but denies dysphagia or odynophagia. She denies chest pain, SOB, dysuria or fevers. OBJECTIVE: Vital Signs Period Temp Pulse Resp BP Sys/Moore Pulse Ox Last 24 Hr 98 F-99.1 F 84-123 16-18 102-148/59-95 96-99 GENERAL: 47 yr old female sitting in bed, awake, alert, and orientated, mildly anxious HEAD: Ecchymosis surrounding right orbit and along right zygomatic bone NECK: Supple, no lymphadenopathy LUNGS: CTA b/l w/o wheezes or crackles CARDIOVASCULAR: Tachycardiac at 110 bpm, S1/S2 w/o S3/S4; No JVD; Pulses 2+ b/l UE/LE ABD: Transverse suprapubic scar; Normoactive bowel sounds, flat, soft, tender to deep palpation in the epigastric region, no organomegaly, no rebound or guarding MSK: B/l thoracolumbar paraspinal muscle tenderness EXTREMITIES: Appox. 1 inch scabbed area on right knee; NEURO: CN II-XII grossly intact, Sensation grossly intact, 5/5 muscle strength b /l UE/LE, slurred speech, ambulates without difficultly; no pronator drift Laboratory Results - last 24 hr 01/31/18 02/01/18 02/01/18 15:20 07:04 07:04 WBC 13.4 H RBC 3.80 Hgb 13.1 Hct 37.8 MCV 99.7 H MCH 34.4 H MCHC 34.5 RDW 14.7 Plt Count 105 L D MPV 11.6 H D PT with INR INR PTT (Actin FS) Sodium 138 Potassium 3.4 L Chloride 104 Carbon Dioxide 25 Anion Gap 9 BUN 10 Creatinine 0.6 Random Glucose 90 Calcium 7.9 L Phosphorus 2.6 Magnesium 2.8 H Urine Color Yellow Urine Appearance Slcloudy Urine pH 7.0 D Ur Specific [place] 1.011 Urine Protein 2+ H Urine Glucose (UA) 3+ H Urine Ketones 2+ H Urine Blood Negative Urine Nitrite Negative Urine Bilirubin Negative Urine Urobilinogen Negative Ur Leukocyte Esterase Negative Urine WBC (Auto) 14 Urine RBC (Auto) 1 Ur Epithelial Cells Rare Urine Bacteria Moderate 02/01/18 07:04 WBC RBC Hgb Hct MCV MCH MCHC RDW Plt Count MPV PT with INR 12.90 H INR 1.14 PTT (Actin FS) 29.6 Sodium Potassium Chloride Carbon Dioxide Anion Gap BUN Creatinine Random Glucose Calcium Phosphorus Magnesium Urine Color Urine Appearance Urine pH Ur Specific [place] Urine Protein Urine Glucose (UA) Urine Ketones Urine Blood Urine Nitrite Urine Bilirubin Urine Urobilinogen Ur Leukocyte Esterase Urine WBC (Auto) Urine RBC (Auto) Ur Epithelial Cells Urine Bacteria Current Medications Generic Name Dose Route Start Last Admin Trade Name Freq PRN Reason Stop Dose Admin Chlordiazepoxide HCl 50 mg 01/31/18 23:00 02/01/18 11:49 Librium - PO 02/01/18 17:01 50 mg [id number] GONZALEZ Administration Chlordiazepoxide HCl 25 mg 02/01/18 23:00 Librium - PO 02/02/18 17:01 [id number] GONZALEZ Chlordiazepoxide HCl 15 mg 02/02/18 23:00 Librium - PO 02/03/18 17:01 [id number] GONZALEZ Chlordiazepoxide HCl 25 mg 01/31/18 20:34 Librium - PO 02/03/18 20:33 Q4H PRN WITHDRAWAL(CONT SUBST) Divalproex Sodium 250 mg 01/31/18 22:00 02/01/18 10:26 Depakote - PO 250 mg BID GONZALEZ Administration Gabapentin 300 mg 01/31/18 22:00 02/01/18 06:00 Neurontin - PO 300 mg TID GONZALEZ Administration Sodium Chloride 1,000 mls @ 100 mls/hr 01/31/18 19:30 01/31/18 22:58 Normal Saline - IV 100 mls/hr ASDIR GONZALEZ Administration Methadone HCl 40 mg 02/01/18 06:00 Dolophine - PO DAILY@0600 GONZALEZ Ondansetron HCl 8 mg 02/01/18 07:50 Zofran Odt - SL Q6H PRN NAUSEA AND/OR VOMITING Pantoprazole Sodium 40 mg 01/31/18 22:00 02/01/18 10:26 Protonix - PO 40 mg BID GONZALEZ Administration Potassium Chloride 20 meq 02/01/18 22:00 K-Dur - PO BID GONZALEZ Multivit/Folic Acid/Iron 1 tab 02/01/18 10:00 02/01/18 12:07 Vitamins (Sjr) - PO Not Given DAILY GONZALEZ Quetiapine Fumarate 200 mg/ 300 mg 02/01/18 02:15 02/01/18 10:26 Quetiapine Fumarate 100 mg PO Not Given BID GONZALEZ Thiamine HCl 100 mg 02/01/18 22:00 Vitamin B1 - PO HS GONZALEZ Trazodone HCl 50 mg 01/31/18 22:00 02/01/18 02:09 Desyrel - PO 50 mg HS GONZALEZ Administration ASSESSMENT/PLAN: 47 yr old female with history of polysubstance abuse (recently signed AMA from alcohol detox at [facility]), opioid dependence (on 40 mg of Methadone), Hep C, bipolar disorder and pancreatitis presented to the ED wit 1 day of nausea and vomiting and was admitted for detox. #Nausea and vomiting with associated epigastric pain -May be alchohol withdrawal, gastritis -Not likely pancreatitis; lipase 248 -patient tolerating clear liquids; advance diet as tolerated -Continue Zofran, Protonix, and NS #Alcohol withdrawal and alcohol dependence -Day 2 of 5 day Librium detox protocol -Continue Thiamine, Folate, and Magnesium replenishment -Following with Dr. Littlejohn # Transaminitis -Hep C positive; may also be alcoholic hepatitis -Prior CT (01/02) with evidence of bile duct dilation -ABD u/s demonstrated bile duct dilation to 1.2 cm -Patient following with Dr. Wyatt -MRCP ordered #Hypokalemic -Replace with potassium 20 mEq BID #Bipolar disorder -Continue home Seroquel,Trazodone, Depakote #FEN -NS -Advance diet from clear liquids as tolerated #Prophylaxis -Patient ambulating #Dispo -Admit to telemetry
[2018-02-01] MEDS: CYCLOBENZAPRINE HCL 10 MG TABLET (FP) PO SCH ×2 (16:21→21:23)
[2018-02-01] MEDS: GABAPENTIN 100 MG CAPSULE (FP) PO SCH ×2 (16:43→21:23)
[2018-02-01] MEDS: POTASSIUM CHLORIDE TABS 20 MEQ TABLET.ER (FP) PO SCH (21:23)
[2018-02-01] MEDS ORDERED: diphenhydrAMINE HCL 25 MG CAPSULE (FP) PO ONE (21:34)
[2018-02-02] MEDS ORDERED: IBUPROFEN 800 MG/8 ML IJ IVPB ONE (05:52)
[2018-02-02] MEDS: GABAPENTIN 100 MG CAPSULE (FP) PO SCH ×3 (06:35→23:18)
[2018-02-02] MEDS: chlordiazePOXIDE HCL 25 MG CAPSULE PO SCH ×2 (06:35→12:26)
[2018-02-02] MEDS: CYCLOBENZAPRINE HCL 10 MG TABLET (FP) PO SCH ×3 (06:35→23:18)
[2018-02-02 07:12] LABS: HEMATOCRIT 36.9 % (32.4-45.2); HEMOGLOBIN 12.6 GM/dL (10.7-15.3); MCH 33.6 pg (25.7-33.7); MCHC 34.1 g/dl (32.0-36.0); MEAN CELL VOLUME 98.6 fl (80-96); MEAN PLT VOLUME 11.4 fl (7.5-11.1); PLATELET COUNT 87 K/MM3 (134-434); RBC 3.74 M/mm3 (3.60-5.2); RDW 14.3 % (11.6-15.6); WHITE BLOOD COUNT 10.7 K/mm3 (4.0-10.0)
[2018-02-02 07:51] LABS: ALBUMIN 2.8 g/dl (3.4-5.0); BILIRUBIN,TOTAL 1.3 mg/dL (0.2-1.0); BLOOD UREA NITROGEN 16 mg/dL (7-18); CHLORIDE 104 mmol/L (98-107); GLUCOSE,RANDOM 84 mg/dL (74-106); POTASSIUM 4.1 mmol/L (3.5-5.1); SGOT/AST 48 U/L (15-37); SODIUM 138 mmol/L (136-145); TOT PROT 6.3 g/dl (6.4-8.2)
[2018-02-02 07:59] LABS: ALK PHOS 117 U/L (45-117); ANION GAP 10 (8-16); CALCIUM 8.2 mg/dL (8.5-10.1); CO2 24 mmol/L (21-32); MAGNESIUM 2.4 mg/dL (1.8-2.4); SGPT/ALT 71 U/L (12-78)
[2018-02-02 08:24] LABS: PHOSPHOROUS 0.6 mg/dL (2.5-4.9)
[2018-02-02] MEDS ORDERED: METHADONE HCL 40 MG DISPERSABLE TABLET PO SCH (08:45)
[2018-02-02] MEDS ORDERED: PT OWN MED DRAWER 7, Y5N ONE (10:55)
--- NOTE | 2018-02-02 11:36 | PN ---
Physical Exam: SUBJECTIVE: Patient seen and examined at bedside. Patient had episodes of agitation overnight where she attempted to leave the hospital and thought she was at home. She became combative with the staff necessitating chemical and physical restraint. She was placed on 1:1. On interview she was found naked in bed attempting to leave the bed. She did not answer questions appropriately and her sentences did not make logical sense. OBJECTIVE: Vital Signs Period Temp Pulse Resp BP Sys/Moore Pulse Ox Last 24 Hr 97.5 F-98.2 F 118-134 18-20 99-115/49-75 97-97 GENERAL: The patient has waxing and waning consciousness during interview. She constantly struggles against he restraints. She is oriented to self and place, but not year. She exhibits pressured speech and does not answer questions appropriately. HEAD: Normocephalic with previously described bruise. EYES: unable to perform due to patient's clinical status. LUNGS: Breath sounds equal, clear to auscultation bilaterally, no wheezes, no crackles, no accessory muscle use. HEART: Regular rate and rhythm, S1, S2 without murmur, rub or gallop. ABDOMEN: Soft, nontender, nondistended, normoactive bowel sounds, no guarding, no rebound, no hepatosplenomegaly, no masses. EXTREMITIES: 2+ pulses, warm, well-perfused, no edema. NEUROLOGICAL: Cranial nerves II through X grossly intact. Mumbled speech unchanged from yesterday. gait not observed. SKIN: Warm, dry, normal turgor, no rashes or lesions noted except as above. No diaphoresis seen or felt. Laboratory Results - last 24 hr 02/02/18 02/02/18 05:35 05:35 WBC 10.7 H RBC 3.74 Hgb 12.6 Hct 36.9 MCV 98.6 H MCH 33.6 MCHC 34.1 RDW 14.3 Plt Count 87 L MPV 11.4 H Sodium 138 Potassium 4.1 Chloride 104 Carbon Dioxide 24 Anion Gap 10 BUN 16 Creatinine 1.0 Creat Clearance w eGFR 59.69 Random Glucose 84 Calcium 8.2 L Phosphorus 0.6 L* Magnesium 2.4 Total Bilirubin 1.3 H AST 48 H ALT 71 Alkaline Phosphatase 117 Total Protein 6.3 L Albumin 2.8 L Active Medications Generic Name Dose Route Start Last Admin Trade Name Freq PRN Reason Stop Dose Admin Chlordiazepoxide HCl 25 mg 02/01/18 23:00 02/02/18 06:35 Librium - PO 02/02/18 17:01 25 mg [id number] GONZALEZ Administration Chlordiazepoxide HCl 15 mg 02/02/18 23:00 Librium - PO 02/03/18 17:01 [id number] GONZALEZ Chlordiazepoxide HCl 25 mg 01/31/18 20:34 Librium - PO 02/03/18 20:33 Q4H PRN WITHDRAWAL(CONT SUBST) Cyclobenzaprine HCl 10 mg 02/01/18 15:30 02/02/18 06:35 Flexeril - PO 10 mg TID GONZALEZ Administration Divalproex Sodium 250 mg 01/31/18 22:00 02/01/18 23:18 Depakote - PO Not Given BID [facility] Gabapentin 100 mg 02/01/18 15:30 02/02/18 06:35 Neurontin - PO 100 mg TID [facility] Administration Sodium Chloride 1,000 mls @ 100 mls/hr 01/31/18 19:30 01/31/18 22:58 Normal Saline - IV 100 mls/hr ASDIR GONZALEZ Administration Loperamide HCl 4 mg 02/01/18 15:22 Imodium - PO Q6H PRN DIARRHEA Methadone HCl 40 mg 02/02/18 08:45 02/02/18 08:48 Dolophine - PO 40 mg DAILY@0600 [facility] Administration Ondansetron HCl 8 mg 02/01/18 07:50 Zofran Odt - SL Q6H PRN NAUSEA AND/OR VOMITING Pantoprazole Sodium 40 mg 01/31/18 22:00 02/01/18 21:23 Protonix - PO 40 mg BID [facility] Administration Potassium Chloride 20 meq 02/01/18 22:00 02/01/18 21:23 K-Dur - PO 20 meq BID [facility] Administration Potassium Phos/Sodium Phos 1 packet 02/02/18 14:00 Phos-Nak Packet - PO TID [facility] Multivit/Folic Acid/Iron 1 tab 02/01/18 10:00 02/01/18 12:07 Vitamins (Sjr) - PO Not Given DAILY [facility] Quetiapine Fumarate 200 mg/ 300 mg 02/01/18 02:15 02/01/18 21:24 Quetiapine Fumarate 100 mg PO 300 mg BID GONZALEZ Administration Thiamine HCl 100 mg 02/01/18 22:00 02/01/18 21:23 Vitamin B1 - PO 100 mg HS GONZALEZ Administration Trazodone HCl 50 mg 01/31/18 22:00 02/01/18 21:23 Desyrel - PO 50 mg HS GONZALEZ Administration Zolpidem Tartrate 5 mg 02/01/18 15:21 02/01/18 21:23 Ambien - PO 5 mg HS PRN Administration INSOMNIA ASSESSMENT/PLAN: The patient is a 47 yo f w/ PMH polysubstance abuse, HTN, hep C admitted for alcohol detoxification. #alcohol withdrawal/ opiate dependence -CIWA 15 -No episodes of n/v overnight -NS @ 100 -librium detox protocol -detox consult -continue 40mg methadone daily; dose confirmed with [facility] #Elevated Transaminases -trending down today -GI consult: transaminitis likely 2/2 chronic hep c and ETOH abuse -can follow as outpt after detox -US abdomen shows dilated CBD and pancreatic duct -for MRCP today if patient able to tolerate #Hypophosphatemia -.6 this AM -repleting with PhosNaK TID #Right side face bruise -2/2 to patient "walking into a wall" and falling down -ct head negative. -will monitor. #Seizure hx -per pt, has hx of seizures; meds received from [facility]. -continue home depakote #Hypomagnesemia- resolved -mag WNL today -will monitor #Hypertension- controlled -normotensive today #Agitation- resolved -continue seroquel as per home dose #FEN -NS@100 -Hypokalemia; repleted #Prophylaxis -HSQ 5ku TID #Disposition -admit to obs -OK to d/c tele Visit type - Emergency Visit Emergency Visit: Yes ED Registration Date: 02/01/18 Care time: The patient presented to the Emergency Department on the above date and was hospitalized for further evaluation of their emergent condition. - New Patient This patient is new to me today: No - Critical Care Critical Care patient: No
--- NOTE | 2018-02-02 11:43 | PN ---
Teaching Attending Note Name of Resident: Juan Luis Evans ATTENDING PHYSICIAN STATEMENT I saw and evaluated the patient. I reviewed the resident's note and discussed the case with the resident. I agree with the resident's findings and plan as documented. SUBJECTIVE: Patient has been confused and agitated. OBJECTIVE: Vital Signs Period Temp Pulse Resp BP Sys/Moore Pulse Ox Last 24 Hr 97.5 F-98.2 F 118-134 18-20 99-115/49-75 97-97 HEART: S1S2, tachycardic LUNGS: Clear ABDOMEN: Soft, non-tender, non-distended, normal BS EXTREMITIES: No edema Laboratory Results - last 24 hr 02/02/18 02/02/18 05:35 05:35 WBC 10.7 H RBC 3.74 Hgb 12.6 Hct 36.9 MCV 98.6 H MCH 33.6 MCHC 34.1 RDW 14.3 Plt Count 87 L MPV 11.4 H Sodium 138 Potassium 4.1 Chloride 104 Carbon Dioxide 24 Anion Gap 10 BUN 16 Creatinine 1.0 Creat Clearance w eGFR 59.69 Random Glucose 84 Calcium 8.2 L Phosphorus 0.6 L* Magnesium 2.4 Total Bilirubin 1.3 H AST 48 H ALT 71 Alkaline Phosphatase 117 Total Protein 6.3 L Albumin 2.8 L Current Medications Generic Name Dose Route Start Last Admin Trade Name Freq PRN Reason Stop Dose Admin Chlordiazepoxide HCl 25 mg 02/01/18 23:00 02/02/18 06:35 Librium - PO 02/02/18 17:01 25 mg [id number] GONZALEZ Administration Chlordiazepoxide HCl 15 mg 02/02/18 23:00 Librium - PO 02/03/18 17:01 [id number] GONZALEZ Chlordiazepoxide HCl 25 mg 01/31/18 20:34 Librium - PO 02/03/18 20:33 Q4H PRN WITHDRAWAL(CONT SUBST) Cyclobenzaprine HCl 10 mg 02/01/18 15:30 02/02/18 06:35 Flexeril - PO 10 mg TID GONZALEZ Administration Divalproex Sodium 250 mg 01/31/18 22:00 02/01/18 23:18 Depakote - PO Not Given BID GONZALEZ Gabapentin 100 mg 02/01/18 15:30 02/02/18 06:35 Neurontin - PO 100 mg TID GONZALEZ Administration Sodium Chloride 1,000 mls @ 100 mls/hr 01/31/18 19:30 01/31/18 22:58 Normal Saline - IV 100 mls/hr ASDIR GONZALEZ Administration Loperamide HCl 4 mg 02/01/18 15:22 Imodium - PO Q6H PRN DIARRHEA Methadone HCl 40 mg 02/02/18 08:45 02/02/18 08:48 Dolophine - PO 40 mg DAILY@0600 GONZALEZ Administration Ondansetron HCl 8 mg 02/01/18 07:50 Zofran Odt - SL Q6H PRN NAUSEA AND/OR VOMITING Pantoprazole Sodium 40 mg 01/31/18 22:00 02/01/18 21:23 Protonix - PO 40 mg BID GONZALEZ Administration Potassium Chloride 20 meq 02/01/18 22:00 02/01/18 21:23 K-Dur - PO 20 meq BID GONZALEZ Administration Potassium Phos/Sodium Phos 1 packet 02/02/18 14:00 Phos-Nak Packet - PO TID GONZALEZ Multivit/Folic Acid/Iron 1 tab 02/01/18 10:00 02/01/18 12:07 Vitamins (Sjr) - PO Not Given DAILY GONZALEZ Quetiapine Fumarate 200 mg/ 300 mg 02/01/18 02:15 02/01/18 21:24 Quetiapine Fumarate 100 mg PO 300 mg BID GONZALEZ Administration Thiamine HCl 100 mg 02/01/18 22:00 02/01/18 21:23 Vitamin B1 - PO 100 mg HS GONZALEZ Administration Trazodone HCl 50 mg 01/31/18 22:00 02/01/18 21:23 Desyrel - PO 50 mg HS GONZALEZ Administration Zolpidem Tartrate 5 mg 02/01/18 15:21 02/01/18 21:23 Ambien - PO 5 mg HS PRN Administration INSOMNIA ASSESSMENT AND PLAN: This is a 47 year old woman with a history of polysubstance abuse, HTN, hepatitis C, bipolar disorder who presented to the ED with nausea and vomiting x 1 day. 1. Alcohol withdrawal, uncomplicated - Continue Librium detox 2. Probable gastritis - Continue Protonix 3. Continuous alcohol dependence - Continue thiamine, multivitamin, folic acid 4. Opioid dependence - Continue Methadone 5. Hypomagnesemia - Improved 6. Hypokalemia - Improved 7. Hypophosphatemia - Supplement phosphorus 8. Hypertension - BP ok without medication 9. Acute alcoholic hepatitis - LFTs improved 10. Chronic hepatitis C 11. Bipolar disorder - Continue Trazodone, Seroquel, Depakote
[2018-02-02] MEDS: PRENATAL VITAMINS W/ FOLIC ACID TABLET (FP) PO SCH (12:25)
[2018-02-02] MEDS: DIVALPROEX SODIUM 250 MG TABLET E.C. PO SCH ×2 (12:25→23:18)
[2018-02-02] MEDS: POTASSIUM CHLORIDE TABS 20 MEQ TABLET.ER (FP) PO SCH ×2 (12:25→23:18)
[2018-02-02] MEDS: PANTOPRAZOLE 40 MG TABLET (FP) PO SCH ×2 (12:26→23:18)
[2018-02-02] MEDS: QUETIAPINE FUMARATE 200 MG, QUETIAPINE FUMARATE 100 MG PO SCH (12:27)
[2018-02-02] MEDS ORDERED: NAPH,MB-DB/K PH,MBDB POWDER PACKET PO SCH (14:00)
--- NOTE | 2018-02-02 14:15 | MSN ---
Progress Note (short form) - Note Progress Note: SUBJECTIVE: Patient seen and examined at bedside this morning. Overnight, patient became agitated and confused. She attempted to leave the hospital and was not orientated to time or place. She was also combative necessitating the use of a Juan Antonio and one-on-one monitoring. She also received Ativan 2 mg. This morning patient is still confused and does not answer questions appropriately. She is orientated to place and self but not to time and continues to be agitated attempting to leave her hospital bed. Her speech is slurred and she is difficult to comprehend. She continues to complain of generalized pain. She has not vomited and is tolerating clear liquids. OBJECTIVE: Vital Signs Period Temp Pulse Resp BP Sys/Moore Pulse Ox Last 24 Hr 97.5 F-98.2 F 118-134 18-20 99-115/49-75 97-97 PHYSICAL EXAM: GENERAL: 47 yr old female restless in the bed with sheets and gown tangled around her. HEAD: Ecchymosis surrounding right orbit and along right zygomatic bone NECK: Supple without lymphadenopathy CARDIOVASCULAR: No JVD, tachycardiac at 120 bpm normal S1/S2 without S3/S4 or rubs LUNGS: Clear to auscultation b/l, no wheezes or crackles ABD: Transverse, suprapubic scar; Normoactive bowel sounds; soft, tender only to deep epigastric palpation, no rebound or guarding EXTREMITIES: 2+ pulses in b/l UE/LE, warm, dry, pink, capillary refill <2 sec SKIN: Approx. 1 inch scabbed area on right knee NEURO: Slurred speech; Ataxic gait but able to ambulate without assistance Laboratory Results - last 24 hr 02/02/18 02/02/18 05:35 05:35 WBC 10.7 H RBC 3.74 Hgb 12.6 Hct 36.9 MCV 98.6 H MCH 33.6 MCHC 34.1 RDW 14.3 Plt Count 87 L MPV 11.4 H Sodium 138 Potassium 4.1 Chloride 104 Carbon Dioxide 24 Anion Gap 10 BUN 16 Creatinine 1.0 Creat Clearance w eGFR 59.69 Random Glucose 84 Calcium 8.2 L Phosphorus 0.6 L* Magnesium 2.4 Total Bilirubin 1.3 H AST 48 H ALT 71 Alkaline Phosphatase 117 Total Protein 6.3 L Albumin 2.8 L ASSESSMENT/PLAIN: 47 yr old female with history of polysubstance abuse (recently signed AMA from alcohol detox at [facility]), opioid dependence (maintanace methadone 40 mg), chronic HepC, bipolar disorder, and pancreatitis presented to the ED with one day of nausea and vomiting and was admitted for alcohol detox. #Nausea/vomiting with associated epigastric pain -Nausea and vomiting have resolved -Epigastric pain likely secondary to gastritis (Normal lipase, no hematemsis or melena) -Continue Zofran, Protonix -Patient requesting EnSure as appetite improving #Alcohol dependence/ alcohol withdrawal -Continue librium protocol x 5 days (currently librium 25 mg 2 out of 4 doses ) -Continue Thiamine, Folic acid, and Magnesium replacement #Agitation - Maintain one-on-one monitoring -Continue Seroquel, Depakote, Trazodone #Hypokalemia -Potassium replaced with K-Dur; Potassium 4.1 this morning #Hypophosphatemia -Phosphorous 0.6 this morning; replaced with PhosNaK #Transaminitis -Acute alcohol hepitatis in setting of chronic HepC infection -Resolving AST/ALT trending down -MRCP ordered for when patient is able to tolerate imaging #FEN -Advance diet as tolerated #Prophylaxis -Patient is ambulating #Dispo -Discontinue telemetry monitoring -Consider [facility] for continued detox
[2018-02-02 14:42] LABS: COCAINE, UR NEGATIVE ng/ml (CUTOFF=300); OPIATES, URI NEGATIVE ng/ml (CUTOFF=300); PHENCYCLIDINE,URINE NEGATIVE ng/ml (CUTOFF=25); URINE AMPHETAMINES NEGATIVE ng/ml (CUTOFF=500); URINE BARBITURATES NEGATIVE ng/ml (CUTOFF=200)
[2018-02-02 14:45] LABS: URINE BENZODIAZEPINES POSITIVE ng/ml (CUTOFF=200)
[2018-02-02 14:46] LABS: METHADONE, UR POSITIVE ng/ml (CUTOFF=300)
[2018-02-02] MEDS ORDERED: LOPERAMIDE HCL 2 MG CAPSULE PO PRN (15:24)
[2018-02-02] MEDS ORDERED: chlordiazePOXIDE HCL 25 MG CAPSULE PO PRN (15:24)
[2018-02-02] MEDS ORDERED: ONDANSETRON *ODT* 4 MG TABLET SL PRN (15:24)
[2018-02-02] MEDS ORDERED: chlordiazePOXIDE HCL 25 MG CAPSULE PO SCH (17:00)
[2018-02-02] MEDS ORDERED: traZODone HCL 50 MG TABLET (FP) PO SCH (22:00)
[2018-02-02] MEDS ORDERED: QUETIAPINE FUMARATE 200 MG, QUETIAPINE FUMARATE 100 MG PO SCH (22:00)
[2018-02-02] MEDS ORDERED: ZOLPIDEM TARTRATE 5 MG TABLET PO PRN (22:00)
[2018-02-02] MEDS: SODIUM CHLORIDE 1,000 ML IV SCH (22:15)
[2018-02-02] MEDS ORDERED: chlordiazePOXIDE 5 MG CAPSULE PO SCH (23:00)
[2018-02-02] MEDS: THIAMINE HCL 100 MG TABLET (FP) PO SCH (23:17)
[2018-02-02] MEDS: chlordiazePOXIDE 5 MG CAPSULE PO SCH (23:17)
[2018-02-02] MEDS: NAPH,MB-DB/K PH,MBDB POWDER PACKET PO SCH (23:19)
[2018-02-03] MEDS: NAPH,MB-DB/K PH,MBDB POWDER PACKET PO SCH ×4 (07:37→21:07)
[2018-02-03] MEDS: CYCLOBENZAPRINE HCL 10 MG TABLET (FP) PO SCH ×2 (07:37→14:14)
[2018-02-03] MEDS: chlordiazePOXIDE 5 MG CAPSULE PO SCH ×3 (07:37→17:23)
[2018-02-03] MEDS: GABAPENTIN 100 MG CAPSULE (FP) PO SCH ×4 (07:37→21:05)
[2018-02-03] MEDS: METHADONE HCL 40 MG DISPERSABLE TABLET PO SCH ×2 (07:37→09:21)
[2018-02-03 07:50] LABS: HEMATOCRIT 35.2 % (32.4-45.2); HEMOGLOBIN 11.9 GM/dL (10.7-15.3); MCH 33.8 pg (25.7-33.7); MCHC 33.9 g/dl (32.0-36.0); MEAN CELL VOLUME 99.8 fl (80-96); MEAN PLT VOLUME 10.3 fl (7.5-11.1); PLATELET COUNT 81 K/MM3 (134-434); RBC 3.52 M/mm3 (3.60-5.2); RDW 14.5 % (11.6-15.6); WHITE BLOOD COUNT 10.1 K/mm3 (4.0-10.0)
[2018-02-03 08:22] LABS: CHLORIDE 109 mmol/L (98-107); POTASSIUM 4.2 mmol/L (3.5-5.1); SODIUM 141 mmol/L (136-145)
[2018-02-03 08:30] LABS: ALBUMIN 2.5 g/dl (3.4-5.0); ALK PHOS 114 U/L (45-117); ANION GAP 8 (8-16); BILIRUBIN,TOTAL 0.7 mg/dL (0.2-1.0); BLOOD UREA NITROGEN 13 mg/dL (7-18); CALCIUM 8.2 mg/dL (8.5-10.1); CO2 24 mmol/L (21-32); CREATININE 0.8 mg/dL (0.55-1.02); GLUCOSE,RANDOM 93 mg/dL (74-106); MAGNESIUM 2.2 mg/dL (1.8-2.4); PHOSPHOROUS 1.3 mg/dL (2.5-4.9); SGOT/AST 39 U/L (15-37); SGPT/ALT 58 U/L (12-78)
[2018-02-03] MEDS ORDERED: PT OWN MED DRAWER 7, Y5N ONE ×2 (08:45→20:33)
[2018-02-03] MEDS ORDERED: QUEtiapine FUMARATE 200 MG TABLET PO SCH (08:50)
[2018-02-03] MEDS: PANTOPRAZOLE 40 MG TABLET (FP) PO SCH ×3 (09:21→21:07)
[2018-02-03] MEDS: POTASSIUM CHLORIDE TABS 20 MEQ TABLET.ER (FP) PO SCH ×3 (09:21→21:05)
[2018-02-03] MEDS ORDERED: QUEtiapine FUMARATE 100 MG TABLET (FP) PO SCH (10:07)
[2018-02-03] MEDS: DIVALPROEX SODIUM 250 MG TABLET E.C. PO SCH ×3 (10:29→21:05)
[2018-02-03] MEDS: PRENATAL VITAMINS W/ FOLIC ACID TABLET (FP) PO SCH (10:29)
--- NOTE | 2018-02-03 15:21 | PN ---
Physical Exam: SUBJECTIVE: Patient seen and examined at bedside. Patient was seen to be solomnent this am and continues to respond inappropriately to questions. Over the course of the day, the patient was seen to be agitated and combative with nursing staff. OBJECTIVE: Vital Signs Period Temp Pulse Resp BP Sys/Moore Pulse Ox Last 24 Hr 100 F-100.2 F 112-113 19-20 100-125/68-74 97-97 GENERAL: The patient is somumnent but easily arousable. Her speech is difficult to understand. HEAD: Normal with no signs of trauma. NECK: Trachea midline, full range of motion, supple. LUNGS: Breath sounds equal, clear to auscultation bilaterally, no wheezes, no crackles, no accessory muscle use. HEART: Regular rate and rhythm, S1, S2 without murmur, rub or gallop. ABDOMEN: Soft, nontender, nondistended, normoactive bowel sounds, no guarding, no rebound, no hepatosplenomegaly, no masses. EXTREMITIES: 2+ pulses, warm, well-perfused, no edema. NEUROLOGICAL: Cranial nerves II through X grossly intact. Normal speech, gait not observed. PSYCH: Patient agitated. Speech pressured. Patient does not display a logical thought pattern. SKIN: Warm, dry, normal turgor, no rashes or lesions noted Laboratory Results - last 24 hr 02/03/18 02/03/18 07:15 07:15 WBC 10.1 H RBC 3.52 L Hgb 11.9 Hct 35.2 MCV 99.8 H MCH 33.8 H MCHC 33.9 RDW 14.5 Plt Count 81 L MPV 10.3 Sodium 141 Potassium 4.2 Chloride 109 H Carbon Dioxide 24 Anion Gap 8 BUN 13 Creatinine 0.8 Creat Clearance w eGFR > 60 Random Glucose 93 Calcium 8.2 L Phosphorus 1.3 L Magnesium 2.2 Total Bilirubin 0.7 D AST 39 H ALT 58 Alkaline Phosphatase 114 Total Protein 6.0 L Albumin 2.5 L Active Medications Generic Name Dose Route Start Last Admin Trade Name Freq PRN Reason Stop Dose Admin Chlordiazepoxide HCl 25 mg 02/02/18 15:24 Librium - PO 02/03/18 20:33 Q4H PRN WITHDRAWAL(CONT SUBST) Chlordiazepoxide HCl 15 mg 02/02/18 23:00 02/03/18 10:30 Librium - PO 02/03/18 17:01 15 mg [id number] GONZALEZ Administration Divalproex Sodium 250 mg 02/02/18 22:00 02/03/18 10:29 Depakote - PO 250 mg BID GONZALEZ Administration Gabapentin 100 mg 02/02/18 22:00 02/03/18 07:37 Neurontin - PO Not Given TID GONZALEZ Sodium Chloride 1,000 mls @ 100 mls/hr 02/02/18 15:24 02/02/18 22:15 Normal Saline - IV Not Given ASDIR GONZALEZ Loperamide HCl 4 mg 02/02/18 15:24 Imodium - PO Q6H PRN DIARRHEA Methadone HCl 40 mg 02/03/18 06:00 02/03/18 09:21 Dolophine - PO 40 mg DAILY@0600 GONZALEZ Administration Ondansetron HCl 8 mg 02/02/18 15:24 Zofran Odt - SL Q6H PRN NAUSEA AND/OR VOMITING Pantoprazole Sodium 40 mg 02/02/18 22:00 02/03/18 09:21 Protonix - PO 40 mg BID GONZALEZ Administration Potassium Chloride 20 meq 02/02/18 22:00 02/03/18 09:21 K-Dur - PO 20 meq BID GONZALEZ Administration Potassium Phos/Sodium Phos 1 packet 02/02/18 22:00 02/03/18 07:37 Phos-Nak Packet - PO Not Given TID GONZALEZ Multivit/Folic Acid/Iron 1 tab 02/03/18 10:00 02/03/18 10:29 Vitamins (Sjr) - PO 1 tab DAILY GONZALEZ Administration Quetiapine Fumarate 300 mg 02/03/18 10:07 Seroquel - PO BID GONZALEZ Thiamine HCl 100 mg 02/02/18 22:00 02/02/18 23:17 Vitamin B1 - PO 100 mg HS GONZALEZ Administration Trazodone HCl 50 mg 02/02/18 22:00 02/02/18 23:18 Desyrel - PO 50 mg HS GONZALEZ Administration ASSESSMENT/PLAN: The patient is a 47 yo f w/ PMH polysubstance abuse, HTN, hep C admitted for alcohol detoxification. #alcohol withdrawal/ opiate dependence -It is unclear whether the patient's ssx are due to ETOH withdrawal or due to psychosis -psych consult -NS @ 100 -librium detox protocol -detox consult -continue 40mg methadone daily; dose confirmed with [facility] #Agitation -continue seroquel as per home dose -psych consult -c/w home trazodone -d/c flexeril -d/c HS ye #Elevated Transaminases -trending down today -GI consult: transaminitis likely 2/2 chronic hep c and ETOH abuse -can follow as outpt after detox -US abdomen shows dilated CBD and pancreatic duct -patient cannot tolerate MRCP in current state. #Hypophosphatemia -repleting with PhosNaK TID #Right side face bruise -2/2 to patient "walking into a wall" and falling down -ct head negative. -will monitor. #Seizure hx -per pt, has hx of seizures; meds received from [facility]. -continue home depakote #Hypomagnesemia- resolved -mag WNL today -will monitor #Hypertension- controlled -normotensive today #FEN -NS@100 -monitor lytes -regular diet #Prophylaxis -HSQ 5ku TID #Disposition -admit to med-surg Visit type - Emergency Visit Emergency Visit: Yes ED Registration Date: 02/01/18 Care time: The patient presented to the Emergency Department on the above date and was hospitalized for further evaluation of their emergent condition. - New Patient This patient is new to me today: No - Critical Care Critical Care patient: No
[2018-02-03] MEDS: SODIUM CHLORIDE 1,000 ML IV SCH (15:22)
--- NOTE | 2018-02-03 16:14 | PN ---
Progress Note (short form) - Note Progress Note: Liver chemistry normalizing. Non-obstructive pattern. Continue current care. Problem List - Problems (1) Alcohol dependence with uncomplicated withdrawal Code(s): F10.230 - ALCOHOL DEPENDENCE WITH WITHDRAWAL, UNCOMPLICATED (2) Alcohol intoxication Code(s): F10.929 - ALCOHOL USE, UNSPECIFIED WITH INTOXICATION, UNSPECIFIED (3) Cannabis dependence, uncomplicated Code(s): F12.20 - CANNABIS DEPENDENCE, UNCOMPLICATED (4) Dilated bile duct Code(s): K83.8 - OTHER SPECIFIED DISEASES OF BILIARY TRACT (5) Dilated pancreatic duct Code(s): K86.89 - OTHER SPECIFIED DISEASES OF PANCREAS
--- NOTE | 2018-02-03 16:50 | PN ---
Teaching Attending Note Name of Resident: Juan Luis Evans ATTENDING PHYSICIAN STATEMENT I saw and evaluated the patient. I reviewed the resident's note and discussed the case with the resident. I agree with the resident's findings and plan as documented. SUBJECTIVE: Patient confused and agitated. She says she feels much better. OBJECTIVE: Vital Signs Period Temp Pulse Resp BP Sys/Moore Pulse Ox Last 24 Hr 100 F-100.2 F 112-113 19-20 100-125/68-74 97-97 HEART: S1S2, tachycardic LUNGS: Clear ABDOMEN: Soft, non-tender, non-distended, normal BS EXTREMITIES: No edema Laboratory Results - last 24 hr 02/03/18 02/03/18 07:15 07:15 WBC 10.1 H RBC 3.52 L Hgb 11.9 Hct 35.2 MCV 99.8 H MCH 33.8 H MCHC 33.9 RDW 14.5 Plt Count 81 L MPV 10.3 Sodium 141 Potassium 4.2 Chloride 109 H Carbon Dioxide 24 Anion Gap 8 BUN 13 Creatinine 0.8 Creat Clearance w eGFR > 60 Random Glucose 93 Calcium 8.2 L Phosphorus 1.3 L Magnesium 2.2 Total Bilirubin 0.7 D AST 39 H ALT 58 Alkaline Phosphatase 114 Total Protein 6.0 L Albumin 2.5 L Current Medications Generic Name Dose Route Start Last Admin Trade Name Freq PRN Reason Stop Dose Admin Chlordiazepoxide HCl 25 mg 02/02/18 15:24 Librium - PO 02/03/18 20:33 Q4H PRN WITHDRAWAL(CONT SUBST) Chlordiazepoxide HCl 15 mg 02/02/18 23:00 02/03/18 10:30 Librium - PO 02/03/18 17:01 15 mg [id number] GONZALEZ Administration Divalproex Sodium 250 mg 02/02/18 22:00 02/03/18 10:29 Depakote - PO 250 mg BID GONZALEZ Administration Gabapentin 100 mg 02/02/18 22:00 02/03/18 15:22 Neurontin - PO Not Given TID GONZALEZ Sodium Chloride 1,000 mls @ 100 mls/hr 02/02/18 15:24 02/03/18 15:22 Normal Saline - IV Not Given ASDIR GONZALEZ Loperamide HCl 4 mg 02/02/18 15:24 Imodium - PO Q6H PRN DIARRHEA Methadone HCl 40 mg 02/03/18 06:00 02/03/18 09:21 Dolophine - PO 40 mg DAILY@0600 GONZALEZ Administration Ondansetron HCl 8 mg 02/02/18 15:24 Zofran Odt - SL Q6H PRN NAUSEA AND/OR VOMITING Pantoprazole Sodium 40 mg 02/02/18 22:00 02/03/18 09:21 Protonix - PO 40 mg BID GONZALEZ Administration Potassium Chloride 20 meq 02/02/18 22:00 02/03/18 09:21 K-Dur - PO 20 meq BID GONZALEZ Administration Potassium Phos/Sodium Phos 1 packet 02/02/18 22:00 02/03/18 07:37 Phos-Nak Packet - PO Not Given TID GONZALEZ Multivit/Folic Acid/Iron 1 tab 02/03/18 10:00 02/03/18 10:29 Vitamins (Sjr) - PO 1 tab DAILY GONZALEZ Administration Quetiapine Fumarate 300 mg 02/03/18 10:07 Seroquel - PO BID GONZALEZ Thiamine HCl 100 mg 02/02/18 22:00 02/02/18 23:17 Vitamin B1 - PO 100 mg HS GONZALEZ Administration Trazodone HCl 50 mg 02/02/18 22:00 02/02/18 23:18 Desyrel - PO 50 mg HS GONZALEZ Administration ASSESSMENT AND PLAN: This is a 47 year old woman with a history of polysubstance abuse, HTN, hepatitis C, bipolar disorder who presented to the ED with nausea and vomiting x 1 day. 1. Alcohol withdrawal, uncomplicated - Completes Librium detox today 2. Probable gastritis - Continue Protonix 3. Continuous alcohol dependence - Continue thiamine, multivitamin, folic acid 4. Opioid dependence - Continue Methadone 5. Hypomagnesemia - Improved 6. Hypokalemia - Improved 7. Hypophosphatemia - Supplement phosphorus 8. Hypertension - BP ok without medication 9. Acute alcoholic hepatitis - LFTs improved 10. Chronic hepatitis C 11. Bipolar disorder - Continue Trazodone, Seroquel, Depakote
--- NOTE | 2018-02-03 17:51 | CON.PSY ---
Psychiatry Consult Chief Complaint: Patient with a history of Alcohol abuse, Methadone maintanance and very high doses of SEroquel. Patient seen for psych consult. ? Bipolart disorder. - Previous Psychiatric Treatment Outpatient: Less than 6 mos ago Inpatient: One prior admission - Previous Substance Abuse Treatment Inpatient: None - Reason for Previous Treatment Reason for Previous Treatment: Biploar Illness, Alcohol Abuse, Heroin or Other Narcotics, Prescription Drug - Current Medications Current Medications: Active Medications Chlordiazepoxide HCl (Librium -) 25 mg PO Q4H PRN PRN Reason: WITHDRAWAL(CONT SUBST) Stop: 02/03/18 20:33 Divalproex Sodium (Depakote -) 250 mg PO BID [facility] Last Admin: 02/03/18 10:29 Dose: 250 mg Gabapentin (Neurontin -) 100 mg PO TID [facility] Last Admin: 02/03/18 15:22 Dose: Not Given Sodium Chloride (Normal Saline -) 1,000 mls @ 100 mls/hr IV ASDIR [facility] Last Admin: 02/03/18 15:22 Dose: Not Given Loperamide HCl (Imodium -) 4 mg PO Q6H PRN PRN Reason: DIARRHEA Methadone HCl (Dolophine -) 40 mg PO DAILY@0600 [facility] Last Admin: 02/03/18 09:21 Dose: 40 mg Ondansetron HCl (Zofran Odt -) 8 mg SL Q6H PRN PRN Reason: NAUSEA AND/OR VOMITING Pantoprazole Sodium (Protonix -) 40 mg PO BID [facility] Last Admin: 02/03/18 09:21 Dose: 40 mg Potassium Chloride (K-Dur -) 20 meq PO BID [facility] Last Admin: 02/03/18 09:21 Dose: 20 meq Potassium Phos/Sodium Phos (Phos-Nak Packet -) 1 packet PO TID [facility] Last Admin: 02/03/18 17:23 Dose: 1 packet Multivit/Folic Acid/Iron ( Vitamins (Sjr) -) 1 tab PO DAILY [facility] Last Admin: 02/03/18 10:29 Dose: 1 tab Thiamine HCl (Vitamin B1 -) 100 mg PO HS [facility] Last Admin: 02/02/18 23:17 Dose: 100 mg - Allergies Allergies: Allergies Allergy/AdvReac Type Severity Reaction Status Date / Time metoclopramide HCl Allergy Severe dystonic Verified 01/31/18 11:21 [From Reglan] reaction prochlorperazine maleate Allergy Severe DYSTONIA Verified 01/31/18 11:21 [From Compazine] - Current Living Status Usual Living Arrangement: Alone - Current Mental Status Evaluation Appearance: Disheveled Attitude: Uncooperative - Affect Affect: Constrictive - Speech/Language Expressive: Delayed - Psychomotor Activity Psychomotor Activity: Agitated, Tremors - Thought Process Thought Process: Circumstantial - Thought Content Hallucinations: Absent Delusions: Absent - Self Perception Self Perception: No Impairment - Cognition Attention: Alert Orientation: Time Memory, Immediate Recall: Impaired Memory, Short Term: 2/3 Memory, Remote with Promptin/3 - Concentration Serial Sevens Intact: No Simple Calculations Intact: No - Abstraction Proverb Interpretation: Impaired Judgement: Severely Impaired - Insight Insight: Impaired - Impulse Control Impulse Control: Moderately Impaired - Suicidal Ideation Suicidal Ideation: No - Homicidal Ideation Homicidal Ideation: No Assessment/Plan 1) d/c Seroquel, trazadone. 2) Patient is ataxic and unstable. 3) continue with Detox and methadone.
[2018-02-03] MEDS: ACETAMINOPHEN 325 MG TABLET (FP) PO PRN (20:05)
[2018-02-03] MEDS: THIAMINE HCL 100 MG TABLET (FP) PO SCH ×3 (20:55→21:08)
[2018-02-04] MEDS ORDERED: PT OWN MED DRAWER 7, Y5N ONE ×3 (06:24→20:52)
[2018-02-04] MEDS: NAPH,MB-DB/K PH,MBDB POWDER PACKET PO SCH ×3 (06:29→21:11)
[2018-02-04] MEDS: GABAPENTIN 100 MG CAPSULE (FP) PO SCH ×3 (06:29→21:11)
[2018-02-04] MEDS: METHADONE HCL 40 MG DISPERSABLE TABLET PO SCH (06:29)
[2018-02-04] MEDS: ACETAMINOPHEN 325 MG TABLET (FP) PO PRN (06:29)
[2018-02-04 07:54] LABS: HEMATOCRIT 33.3 % (32.4-45.2); HEMOGLOBIN 11.2 GM/dL (10.7-15.3); MCH 33.6 pg (25.7-33.7); MCHC 33.6 g/dl (32.0-36.0); MEAN PLT VOLUME 10.7 fl (7.5-11.1); PLATELET COUNT 100 K/MM3 (134-434); RBC 3.33 M/mm3 (3.60-5.2); RDW 14.8 % (11.6-15.6); WHITE BLOOD COUNT 11.5 K/mm3 (4.0-10.0)
[2018-02-04 08:22] LABS: CHLORIDE 109 mmol/L (98-107); POTASSIUM 4.4 mmol/L (3.5-5.1); SODIUM 138 mmol/L (136-145)
[2018-02-04 09:06] LABS: ANION GAP 7 (8-16); BLOOD UREA NITROGEN 13 mg/dL (7-18); CALCIUM 8.3 mg/dL (8.5-10.1); CO2 22 mmol/L (21-32); GLUCOSE,RANDOM 119 mg/dL (74-106); MAGNESIUM 2.2 mg/dL (1.8-2.4); PHOSPHOROUS 1.5 mg/dL (2.5-4.9)
[2018-02-04] MEDS: PANTOPRAZOLE 40 MG TABLET (FP) PO SCH ×2 (11:35→21:11)
[2018-02-04] MEDS: PRENATAL VITAMINS W/ FOLIC ACID TABLET (FP) PO SCH (11:35)
[2018-02-04] MEDS: POTASSIUM CHLORIDE TABS 20 MEQ TABLET.ER (FP) PO SCH ×2 (11:35→21:11)
[2018-02-04] MEDS: DIVALPROEX SODIUM 250 MG TABLET E.C. PO SCH ×2 (11:36→21:11)
--- NOTE | 2018-02-04 11:46 | PN ---
Physical Exam: SUBJECTIVE: Patient seen and examined. Patient remains confused, agitated at times. OBJECTIVE: Vital Signs Period Temp Pulse Resp BP Sys/Moore Pulse Ox Last 24 Hr 100.4 F-101.1 F 104-125 18-20 118-123/47-60 97-98 LUNGS: Breath sounds equal, clear to auscultation bilaterally, no wheezes, no crackles, no accessory muscle use. HEART: S1, S2, tachycardic without murmur, rub or gallop. ABDOMEN: Soft, nontender, nondistended, normoactive bowel sounds, no guarding, no rebound, no hepatosplenomegaly, no masses. EXTREMITIES: 2+ pulses, warm, well-perfused, no edema. Laboratory Results - last 24 hr 02/04/18 02/04/18 07:25 07:25 WBC 11.5 H RBC 3.33 L Hgb 11.2 Hct 33.3 MCV 100.0 H MCH 33.6 MCHC 33.6 RDW 14.8 Plt Count 100 L D MPV 10.7 Sodium 138 Potassium 4.4 Chloride 109 H Carbon Dioxide 22 Anion Gap 7 L BUN 13 Creatinine 1.0 Random Glucose 119 H Calcium 8.3 L Phosphorus 1.5 L Magnesium 2.2 Active Medications Generic Name Dose Route Start Last Admin Trade Name Freq PRN Reason Stop Dose Admin Acetaminophen 650 mg 02/03/18 19:54 02/04/18 06:29 Tylenol - PO 650 mg Q6H PRN Administration PAIN OR FEVER Divalproex Sodium 250 mg 02/02/18 22:00 02/03/18 21:05 Depakote - PO Not Given BID G[facility]Z Gabapentin 100 mg 02/02/18 22:00 02/04/18 06:29 Neurontin - PO 100 mg TID GON[facility]ALEZ Administration Sodium Chloride 1,000 mls @ 100 mls/hr 02/02/18 15:24 02/03/18 15:22 Normal Saline - IV Not Given ASDIR GON[facility]ALEZ Loperamide HCl 4 mg 02/02/18 15:24 Imodium - PO Q6H PRN DIARRHEA Methadone HCl 40 mg 02/03/18 06:00 02/04/18 06:29 Dolophine - PO 40 mg DAILY@0600 G[facility] Administration Ondansetron HCl 8 mg 02/02/18 15:24 Zofran Odt - SL Q6H PRN NAUSEA AND/OR VOMITING Pantoprazole Sodium 40 mg 02/02/18 22:00 02/03/18 21:07 Protonix - PO Not Given BID GON[facility]ALEZ Potassium Chloride 20 meq 02/02/18 22:00 02/03/18 21:05 K-Dur - PO Not Given BID GONZALEZ Potassium Phos/Sodium Phos 1 packet 02/02/18 22:00 02/04/18 06:29 Phos-Nak Packet - PO 1 packet TID GON[facility]ALEZ Administration Multivit/Folic Acid/Iron 1 tab 02/03/18 10:00 02/03/18 10:29 Vitamins (Sjr) - PO 1 tab DAILY G[facility]Z Administration Thiamine HCl 100 mg 02/02/18 22:00 02/03/18 21:08 Vitamin B1 - PO Not Given HS GON[facility]ALEZ ASSESSMENT/PLAN: This is a 47 year old woman with a history of polysubstance abuse, HTN, hepatitis C, bipolar disorder who presented to the ED with nausea and vomiting x 1 day. 1. Alcohol withdrawal, uncomplicated - Completed Librium detox 2. Probable gastritis - Continue Protonix 3. Continuous alcohol dependence - Continue thiamine, multivitamin, folic acid 4. Opioid dependence - Continue Methadone 5. Hypomagnesemia - Improved 6. Hypokalemia - Improved 7. Hypophosphatemia - Continue phosphorus supplementation 8. Hypertension - BP ok without medication 9. Acute alcoholic hepatitis - LFTs improved 10. Chronic hepatitis C 11. Bipolar disorder - Psychiatry input appreciated - Trazodone, Seroquel discontinued - Continue Depakote Visit type - Emergency Visit Emergency Visit: Yes ED Registration Date: 02/01/18 Care time: The patient presented to the Emergency Department on the above date and was hospitalized for further evaluation of their emergent condition. - New Patient This patient is new to me today: No - Critical Care Critical Care patient: No - Discharge Referral Referred to [facility] Med P.C.: No
[2018-02-04] MEDS: HALOPERIDOL LACTATE 5 MG/ML IM ONE ×2 (14:08→14:23)
[2018-02-04] MEDS: THIAMINE HCL 100 MG TABLET (FP) PO SCH (21:11)
[2018-02-05] MEDS: GABAPENTIN 100 MG CAPSULE (FP) PO SCH ×3 (05:55→21:56)
[2018-02-05] MEDS: METHADONE HCL 40 MG DISPERSABLE TABLET PO SCH (05:55)
[2018-02-05] MEDS: NAPH,MB-DB/K PH,MBDB POWDER PACKET PO SCH ×3 (05:55→21:56)
[2018-02-05 08:49] LABS: ANION GAP 7 (8-16); BLOOD UREA NITROGEN 12 mg/dL (7-18); CALCIUM 8.6 mg/dL (8.5-10.1); CHLORIDE 102 mmol/L (98-107); CO2 26 mmol/L (21-32); GLUCOSE,RANDOM 80 mg/dL (74-106); POTASSIUM 4.7 mmol/L (3.5-5.1); SODIUM 135 mmol/L (136-145)
[2018-02-05 08:50] LABS: PHOSPHOROUS 1.6 mg/dL (2.5-4.9)
[2018-02-05 08:53] LABS: HEMATOCRIT 34.7 % (32.4-45.2); HEMOGLOBIN 11.7 GM/dL (10.7-15.3); MCH 33.5 pg (25.7-33.7); MCHC 33.6 g/dl (32.0-36.0); MEAN CELL VOLUME 99.7 fl (80-96); MEAN PLT VOLUME 10.5 fl (7.5-11.1); PLATELET COUNT 137 K/MM3 (134-434); RBC 3.48 M/mm3 (3.60-5.2); RDW 14.8 % (11.6-15.6); WHITE BLOOD COUNT 9.4 K/mm3 (4.0-10.0)
[2018-02-05] MEDS ORDERED: PT OWN MED DRAWER 7, Y5N ONE (09:33)
[2018-02-05] MEDS: DIVALPROEX SODIUM 250 MG TABLET E.C. PO SCH ×2 (09:36→21:58)
[2018-02-05] MEDS: PANTOPRAZOLE 40 MG TABLET (FP) PO SCH ×2 (09:36→21:56)
[2018-02-05] MEDS: PRENATAL VITAMINS W/ FOLIC ACID TABLET (FP) PO SCH (09:36)
[2018-02-05] MEDS: POTASSIUM CHLORIDE TABS 20 MEQ TABLET.ER (FP) PO SCH ×2 (09:36→21:56)
[2018-02-05] MEDS: LORazepam 1 MG TABLET PO PRN ×2 (11:07→21:56)
[2018-02-05] MEDS: SODIUM CHLORIDE 1,000 ML IV SCH (11:10)
[2018-02-05 11:46] LABS: PLATELET ESTIMATE DECREASED
--- NOTE | 2018-02-05 17:38 | PN ---
Physical Exam: SUBJECTIVE: Patient seen and examined. She is ambulating. She has no complaints. She wants to go home, however she is agitated and combative at times. OBJECTIVE: Vital Signs Period Temp Pulse Resp BP Sys/Moore Pulse Ox Last 24 Hr 97.8 F-98.7 F 82-112 18-22 94-124/39-76 98-98 LUNGS: Breath sounds equal, clear to auscultation bilaterally, no wheezes, no crackles, no accessory muscle use. HEART: S1, S2, RRR, without murmur, rub or gallop. ABDOMEN: Soft, nontender, nondistended, normoactive bowel sounds, no guarding, no rebound, no hepatosplenomegaly, no masses. EXTREMITIES: 2+ pulses, warm, well-perfused, no edema. Laboratory Results - last 24 hr 02/05/18 02/05/18 02/05/18 07:00 07:00 07:00 WBC 9.4 RBC 3.48 L Hgb 11.7 Hct 34.7 MCV 99.7 H MCH 33.5 MCHC 33.6 RDW 14.8 Plt Count 137 D MPV 10.5 Neutrophils % No Result Required. Neutrophils % (Manual) 63.3 Band Neutrophils % 0.0 Lymphocytes % No Result Required. Lymphocytes % (Manual) 18.4 Monocytes % (Manual) 12 H Eosinophils % (Manual) 0.0 Basophils % (Manual) 1.0 Myelocytes % (Man) 0 Promyelocytes % (Man) 0 Blast Cells % (Manual) 0 Nucleated RBC % 0 Metamyelocytes 0 Hypochromia 1+ Platelet Estimate Decreased Sodium 135 L Potassium 4.7 Chloride 102 Carbon Dioxide 26 Anion Gap 7 L BUN 12 Creatinine 1.0 Random Glucose 80 Calcium 8.6 Phosphorus 1.6 L Valproic Acid 68.329 Active Medications Generic Name Dose Route Start Last Admin Trade Name Freq PRN Reason Stop Dose Admin Acetaminophen 650 mg 02/03/18 19:54 02/04/18 06:29 Tylenol - PO 650 mg Q6H PRN Administration PAIN OR FEVER Divalproex Sodium 250 mg 02/02/18 22:00 02/05/18 09:36 Depakote - PO 250 mg BID [facility] Administration Gabapentin 100 mg 02/02/18 22:00 02/05/18 13:18 Neurontin - PO 100 mg TID [facility]Z Administration Sodium Chloride 1,000 mls @ 100 mls/hr 02/02/18 15:24 02/05/18 11:10 Normal Saline - IV Not Given ASDIR [facility] Loperamide HCl 4 mg 02/02/18 15:24 Imodium - PO Q6H PRN DIARRHEA Lorazepam 1 mg 02/05/18 10:51 02/05/18 11:07 Ativan - PO 1 mg TID PRN Administration ANXIETY Methadone HCl 40 mg 02/03/18 06:00 02/05/18 05:55 Dolophine - PO 40 mg DAILY@0600 [facility] Administration Ondansetron HCl 8 mg 02/02/18 15:24 Zofran Odt - SL Q6H PRN NAUSEA AND/OR VOMITING Pantoprazole Sodium 40 mg 02/02/18 22:00 02/05/18 09:36 Protonix - PO 40 mg BID [facility] Administration Potassium Chloride 20 meq 02/02/18 22:00 02/05/18 09:36 K-Dur - PO 20 meq BID [facility] Administration Potassium Phos/Sodium Phos 1 packet 02/02/18 22:00 02/05/18 13:18 Phos-Nak Packet - PO 1 packet TID [facility] Administration Multivit/Folic Acid/Iron 1 tab 02/03/18 10:00 02/05/18 09:36 Vitamins (Sjr) - PO 1 tab DAILY [facility] Administration Quetiapine Fumarate 300 mg 02/05/18 17:34 Seroquel - PO 02/05/18 17:35 ONCE ONE Quetiapine Fumarate 300 mg 02/06/18 22:00 Seroquel - PO HS [facility] Thiamine HCl 100 mg 02/02/18 22:00 02/04/18 21:11 Vitamin B1 - PO 100 mg HS [facility] Administration ASSESSMENT/PLAN: This is a 47 year old woman with a history of polysubstance abuse, HTN, hepatitis C, bipolar disorder who presented to the ED with nausea and vomiting x 1 day. 1. Alcohol withdrawal, uncomplicated - Completed Librium detox 2. Probable gastritis - Continue Protonix 3. Continuous alcohol dependence - Continue thiamine, multivitamin, folic acid 4. Opioid dependence - Continue Methadone 5. Hypomagnesemia - Improved 6. Hypokalemia - Improved 7. Hypophosphatemia - Continue phosphorus supplementation 8. Hypertension - BP ok without medication 9. Acute alcoholic hepatitis - LFTs improved 10. Chronic hepatitis C 11. Bipolar disorder - Continue Depakote - Restart Seroquel Visit type - Emergency Visit Emergency Visit: Yes ED Registration Date: 02/01/18 Care time: The patient presented to the Emergency Department on the above date and was hospitalized for further evaluation of their emergent condition. - New Patient This patient is new to me today: No - Critical Care Critical Care patient: No - Discharge Referral Referred to [facility] Med P.C.: No
[2018-02-05] MEDS ORDERED: QUEtiapine FUMARATE 100 MG TABLET (FP) PO ONE (17:45)
[2018-02-05] MEDS ORDERED: QUEtiapine FUMARATE 300 MG TABLET PO ONE (17:45)
[2018-02-05] MEDS: THIAMINE HCL 100 MG TABLET (FP) PO SCH (21:56)
[2018-02-06] MEDS: GABAPENTIN 100 MG CAPSULE (FP) PO SCH (05:46)
[2018-02-06] MEDS: METHADONE HCL 40 MG DISPERSABLE TABLET PO SCH (05:46)
[2018-02-06] MEDS: LORazepam 1 MG TABLET PO PRN (05:46)
[2018-02-06] MEDS: NAPH,MB-DB/K PH,MBDB POWDER PACKET PO SCH (05:46)
[2018-02-06 05:49] VITALS: TEMP 99
[2018-02-06 08:37] LABS: ANION GAP 3 (8-16); BLOOD UREA NITROGEN 10 mg/dL (7-18); CALCIUM 8.2 mg/dL (8.5-10.1); CHLORIDE 111 mmol/L (98-107); CO2 29 mmol/L (21-32); CREATININE 0.8 mg/dL (0.55-1.02); GLUCOSE,RANDOM 95 mg/dL (74-106); PHOSPHOROUS 3.1 mg/dL (2.5-4.9); POTASSIUM 4.5 mmol/L (3.5-5.1); SODIUM 143 mmol/L (136-145)
[2018-02-06] MEDS ORDERED: PT OWN MED DRAWER 7, Y5N ONE (10:42)
[2018-02-06] MEDS: DIVALPROEX SODIUM 250 MG TABLET E.C. PO SCH (10:44)
[2018-02-06] MEDS: POTASSIUM CHLORIDE TABS 20 MEQ TABLET.ER (FP) PO SCH (10:44)
[2018-02-06] MEDS: PANTOPRAZOLE 40 MG TABLET (FP) PO SCH (10:44)
[2018-02-06] MEDS: PRENATAL VITAMINS W/ FOLIC ACID TABLET (FP) PO SCH (10:45)
--- NOTE | 2018-02-06 10:51 | PN ---
Teaching Attending Note Name of Resident: Juan Luis Evans ATTENDING PHYSICIAN STATEMENT I saw and evaluated the patient. I reviewed the resident's note and discussed the case with the resident. I agree with the resident's findings and plan as documented. SUBJECTIVE: Patient has no complaints. OBJECTIVE: Vital Signs Period Temp Pulse Resp BP Sys/Moore Pulse Ox Last 24 Hr 98.6 F-99.0 F 68-102 18-20 94-135/39-73 95-96 HEART: S1S2, RRR LUNGS: Clear ABDOMEN: Soft, non-tender, non-distended, normal BS EXTREMITIES: No edema Laboratory Results - last 24 hr 02/05/18 02/06/18 07:00 07:55 Neutrophils % (Manual) 63.3 Band Neutrophils % 0.0 Lymphocytes % (Manual) 18.4 Monocytes % (Manual) 12 H Eosinophils % (Manual) 0.0 Basophils % (Manual) 1.0 Myelocytes % (Man) 0 Promyelocytes % (Man) 0 Blast Cells % (Manual) 0 Nucleated RBC % 0 Metamyelocytes 0 Hypochromia 1+ Platelet Estimate Decreased Sodium 143 Potassium 4.5 Chloride 111 H Carbon Dioxide 29 Anion Gap 3 L BUN 10 Creatinine 0.8 Random Glucose 95 Calcium 8.2 L Phosphorus 3.1 Current Medications Generic Name Dose Route Start Last Admin Trade Name Freq PRN Reason Stop Dose Admin Acetaminophen 650 mg 02/03/18 19:54 02/04/18 06:29 Tylenol - PO 650 mg Q6H PRN Administration PAIN OR FEVER Divalproex Sodium 250 mg 02/02/18 22:00 02/06/18 10:44 Depakote - PO 250 mg BID GONZALEZ Administration Gabapentin 100 mg 02/02/18 22:00 02/06/18 05:46 Neurontin - PO 100 mg TID GONZALEZ Administration Sodium Chloride 1,000 mls @ 100 mls/hr 02/02/18 15:24 02/05/18 11:10 Normal Saline - IV Not Given ASDIR [facility] Loperamide HCl 4 mg 02/02/18 15:24 Imodium - PO Q6H PRN DIARRHEA Lorazepam 1 mg 02/05/18 10:51 02/06/18 05:46 Ativan - PO 1 mg TID PRN Administration ANXIETY Methadone HCl 40 mg 02/03/18 06:00 02/06/18 05:46 Dolophine - PO 40 mg DAILY@0600 [facility] Administration Ondansetron HCl 8 mg 02/02/18 15:24 Zofran Odt - SL Q6H PRN NAUSEA AND/OR VOMITING Pantoprazole Sodium 40 mg 02/02/18 22:00 02/06/18 10:44 Protonix - PO 40 mg BID [facility]Z Administration Potassium Chloride 20 meq 02/02/18 22:00 02/06/18 10:44 K-Dur - PO 20 meq BID GON[facility]ALEZ Administration Potassium Phos/Sodium Phos 1 packet 02/02/18 22:00 02/06/18 05:46 Phos-Nak Packet - PO 1 packet TID GON[facility]ALEZ Administration Multivit/Folic Acid/Iron 1 tab 02/03/18 10:00 02/06/18 10:45 Vitamins (Sjr) - PO 1 tab DAILY [facility]ON[facility]Z Administration Quetiapine Fumarate 300 mg 02/06/18 22:00 Seroquel - PO HS [facility] Thiamine HCl 100 mg 02/02/18 22:00 02/05/18 21:56 Vitamin B1 - PO 100 mg HS GON[facility]ALEZ Administration ASSESSMENT AND PLAN: This is a 47 year old woman with a history of polysubstance abuse, HTN, hepatitis C, bipolar disorder who presented to the ED with nausea and vomiting x 1 day. 1. Alcohol withdrawal, uncomplicated - Completed Librium detox 2. Probable gastritis - Continue Protonix 3. Continuous alcohol dependence - Continue thiamine, multivitamin, folic acid 4. Opioid dependence - Continue Methadone 5. Hypomagnesemia - Improved 6. Hypokalemia - Improved 7. Hypophosphatemia - Continue phosphorus supplementation 8. Hypertension - BP ok without medication 9. Acute alcoholic hepatitis - LFTs improved 10. Chronic hepatitis C 11. Bipolar disorder - Continue Depakote, Seroquel 12. Ok for discharge home
[2018-02-06 11:09] VITALS: BP 126/80; PULSE 88
--- NOTE | 2018-02-06 21:11 | DS ---
Physical Exam: SUBJECTIVE: Patient seen and examined at bedside. Detox complete. Patient continues to be combative. no new complaints. OBJECTIVE: Vital Signs Period Temp Pulse Resp BP Sys/Moore Pulse Ox Last 24 Hr 98.7 F-99.0 F 82-98 18-20 118-135/66-80 96 PHYSICAL EXAM GENERAL: The patient is drowsy during interview. Speech difficult to understand. NECK: Trachea midline, full range of motion, supple. LUNGS: Breath sounds equal, clear to auscultation bilaterally, no wheezes, no crackles, no accessory muscle use. HEART: Regular rate and rhythm, S1, S2 without murmur, rub or gallop. ABDOMEN: Soft, nontender, nondistended, normoactive bowel sounds, no guarding, no rebound, no hepatosplenomegaly, no masses. EXTREMITIES: 2+ pulses, warm, well-perfused, no edema. NEUROLOGICAL: Cranial nerves II through X grossly intact. mumbled speech, gait not observed. PSYCH: patient with paranoid delusions; accuses staff of stealing ensure. SKIN: Warm, dry, normal turgor, no rashes or lesions noted. LABS Laboratory Results - last 24 hr 02/06/18 07:55 Sodium 143 Potassium 4.5 Chloride 111 H Carbon Dioxide 29 Anion Gap 3 L BUN 10 Creatinine 0.8 Random Glucose 95 Calcium 8.2 L Phosphorus 3.1 HOSPITAL COURSE: Date of Admission:02/01/18 The patient is a 47 year old female w/ PMH polysubstance abuse, HTN, hep C, Bipolar disorder who presented to the ED c/o a 1 day hx of nausea, vomiting and abdominal discomfort after eating dinner last night. She also stated that she was drinking vodka last night (1/5th of a pint) and fell/hit her head. In the ED , she was found to have a magnesium of 1.6, elevated LFTs and a leukocytosis to 12.6. She was admitted for the treatment of possible cholecystitis as well as alcohol detox. GI was consulted. Detox medicine was consulted. psychiatry was consulted. A CT head was negative for acute processes. A RUQ ultrasound showed dilated common bile duct and dilated pancreatic duct. An MRCP was planned, but was unable to be performed secondary to patient's combativeness with staff while admitted. The patient was treated with methadone, a librium detox protocol , thiamine, multivitamins, IV tylenol, normal saline, zofran, magnesium and potassium. The patient improved clinically on this treatment. Her LFts normalized and her electrolytes were repleted. She completed a full course of detoxification. She continued to be combative with staff throughout her stay, requiring 1:1 observation. Once her detox was completed, her home medications were changed and she was discharged into the care of her niece. Her home seroquel was decreased from 300 BID to 300 HS. She was advised to stop taking Trazodone. Her Gabapentin was decreased from 300 TID to 100 TID. She was instructed to follow up with a primary care physician within one week. SHe was also advised to follow up with a psychiatrist within one week or discharge in order to further adjust her psychiatric medications. Date of Discharge: 02/06/18 Minutes to complete discharge: 59 Discharge Summary Reason For Visit: VOMITING Condition: Improved - Instructions Diet, Activity, Other Instructions: You were admitted for the treatment of your alcohol withdrawal. We have changed some of your medications for when you go home. You should STOP taking your Trazodone. We have decreased your Seroquel from 300mg twice per day to 300mg daily. You should continue taking the rest of your medications as prescribed. You should abstain from drinking alcohol as it is harmful to your health. You should follow up with a primary care physician within one week of discharge home. Information for Dr. Hernandez at the resident clinic has been included in your discharge paperwork. Please call to make an appointment. You should also follow up with a psychiatrist for help with your medications. Information for Dr. Walden has been included in your discharge paperwork. Please call to make an appointment. If you begin to experience chest pain, shortness of breath, worsening abdominal pain, or if any of your symptoms get worse, please call your doctor or return to the emergency department. Referrals: Michael Hernandez MD [Staff Physician] - Carissa Walden MD [Staff Physician] - Disposition: HOME - Home Medications Comprehensive Discharge Medication List: Ambulatory Orders Pantoprazole Sodium [Protonix] 40 mg PO BID #60 tablet. 01/04/18 Divalproex Sodium [Depakote] 250 mg PO BID #60 tablet. 02/06/18 Gabapentin 100 mg PO TID #90 capsule 02/06/18 Methadone [Dolophine -] 40 mg PO DAILY@0600 #0 tablet MDD 1 02/06/18 Quetiapine Fumarate [Quetiapine Fumarate ER] 300 mg PO HS #30 tab.er.24h This patient is new to me today: No Emergency Visit: Yes ED Registration Date: 02/01/18 Care time: The patient presented to the Emergency Department on the above date and was hospitalized for further evaluation of their emergent condition. Critical Care patient: No - Discharge Referral Referred to [facility] Med P.C.: No
[2018-02-06] MEDS ORDERED: QUEtiapine FUMARATE 100 MG TABLET (FP) PO SCH (22:00)
== END 2018-02-06 13:03 | disposition home or self-care (01) | DRG 773 ==
LOC: JER 11:07 → JERBED 19:18 → J4W 02-01 01:11 → OBSVTOIN 02-01 15:19 → J6S 02-02 15:23
PROVIDERS: ADMIT Internal Medicine; ATTEND Internal Medicine
PROC: HZ2ZZZZ Detoxification Services for Substance Abuse Treatment (ICD-10-PCS; principal; 2018-02-01)
DX: F10.239 Alcohol dependence with withdrawal, unspecified (principal); I10 Essential (primary) hypertension; F17.200 Nicotine dependence, unspecified, uncomplicated; F11.20 Opioid dependence, uncomplicated; F12.20 Cannabis dependence, uncomplicated; K70.10 Alcoholic hepatitis without ascites; E83.42 Hypomagnesemia; R45.1 Restlessness and agitation; R56.9 Unspecified convulsions; F31.9 Bipolar disorder, unspecified; K21.9 Gastro-esophageal reflux disease without esophagitis; K86.1 Other chronic pancreatitis; S00.83XA Contusion of other part of head, initial encounter; W18.30XA Fall on same level, unspecified, initial encounter; Y93.89 Activity, other specified; Y92.89 Other specified places as the place of occurrence of the external cause; E87.6 Hypokalemia; R74.0 Nonspecific elevation of levels of transaminase and lactic acid dehydrogenase [LDH]; K29.70 Gastritis, unspecified, without bleeding; K86.89 Other specified diseases of pancreas; K83.8 Other specified diseases of biliary tract; E83.39 Other disorders of phosphorus metabolism; R11.2 Nausea with vomiting, unspecified
CPT/HCPCS: 36415; 70450-TC; 76705-TC; 80048; 80053; 80164; 80307; 81003; 81015; 83605; 83690; 83735; 84100; 84703; 85025; 85027; 85610; 85730; 93005; 93010; 99283-25; G0378; J0131; J7030

== ENCOUNTER 2018-02-15 11:06 | Emergency (ER) | payer OTHER ==
[2018-02-15 11:24] VITALS: BP 115/74; PULSE 103; TEMP 97.6; BMI 22.4
--- NOTE | 2018-02-15 12:56 | PDOC ---
History of Present Illness - General Chief Complaint: Pain, Acute Stated Complaint: LT ARM PAIN Time Seen by Provider: 02/15/18 11:56 History Source: Patient Exam Limitations: No Limitations - History of Present Illness Initial Comments: 02/15/18 12:50 This 47-year-old female presents to the emergency room after a fall from 5 days ago. PMH: severe depression, severe psychiatric disorder, on several meds for psych: trazadone, serequel, depakote, Illicit drug use on methadone. Past History - Past Medical History Allergies/Adverse Reactions: Allergies Allergy/AdvReac Type Severity Reaction Status Date / Time metoclopramide HCl Allergy Severe dystonic Verified 02/15/18 11:16 [From Reglan] reaction prochlorperazine maleate Allergy Severe DYSTONIA Verified 02/15/18 11:16 [From Compazine] Home Medications: Ambulatory Orders Pantoprazole Sodium [Protonix] 40 mg PO BID #60 tablet. 01/04/18 Divalproex Sodium [Depakote] 250 mg PO BID #60 tablet. 02/06/18 Gabapentin 100 mg PO TID #90 capsule 02/06/18 Methadone [Dolophine -] 40 mg PO DAILY@0600 #0 tablet MDD 1 02/06/18 Quetiapine Fumarate [Quetiapine Fumarate ER] 300 mg PO HS #30 tab.er.24h Anemia: No Asthma: No Cancer: No Cardiac Disorders: No CVA: No COPD: No CHF: No Dementia: No Diabetes: No GI Disorders: Yes (pancreatitis, GERD) Disorders: No HTN: Yes Hypercholesterolemia: No Kidney Stones: No Liver Disease: Yes (hepatitis) Psychiatric Problems: Yes (bipolar) Seizures: No Thyroid Disease: No - Surgical History Abdominal Surgery: No Appendectomy: No Cardiac Surgery: No Cholecystectomy: No Lung Surgery: No Neurologic Surgery: No Orthopedic Surgery: No - Reproductive History (#): 13 Para: 11 PID: No - Immunization History Immunization Up to Date: No - Suicide/Smoking/Psychosocial Hx Smoking History: Current every day smoker Have you smoked in the past 12 months: No Number of Cigarettes Smoked Daily: 3 Cigars Per Day: 0 Information on smoking cessation initiated: No 'Breaking Loose' booklet given: 01/11/18 Hx Alcohol Use: No Drug/Substance Use Hx: No Substance Use Type: Alcohol, Marijuana Hx Substance Use Treatment: Yes ([facility]) Review of Systems - Review of Systems Able to Perform ROS?: Yes Comments:: 02/15/18 12:54 General statement: Hematology: neg history of bleeding/blood thinners Skin: Neg for lesions, rash, bruising. HEENT: Neg symptoms Respiratory: Neg SOB or difficulty in breathing Cardiac: Neg chest pain GI: Neg pain, n/v : Neg problems on voiding MS: Neg for joint pain/stiffness, no edema, left elbow pain with mild abrasion Neuro: Neg for LOC, weakness, Endocrine: Neg for excess thirst/hunger, cold/heat intolerance, excess sweating Allergies: + for allergies *Physical Exam - Vital Signs Last Vital Signs Temp Pulse Resp BP Pulse Ox 97.6 F 103 H 18 115/74 100 02/15/18 11:16 02/15/18 11:16 02/15/18 11:16 02/15/18 11:16 02/15/18 11:16 - Physical Exam Comments: 02/15/18 12:56 General Appearance: This psych patient with left elbow pain V/S: hemodynamically stable, afebrile Skin: WNL of pt's skin color, no signs of pallor, mottling, cyanosis Head:symmetrical Eyes: EOM's intact, PERRLA Ears: denies pain Nose: patent Throat: lips, teeth, gums, tongue, buccal mucos pink and moist Lungs: Chest symmetry equal. Cap refill <3 seconds. Lung sounds clear Cardiac: PMI at R 4MCL space, pos S1 and S2, regular rate. Abdomen: Soft, round, nontender : Not observed Muscularskeletal: Gait steady, ambulated in to ER, no edema +PMS, left elbow pain with mild red no erythema, skin abrasion at olecranon region without effusion or crepitius but having difficulty in full ROM on flexion due to pain. Neuro: AAOx3, cognitively intact, speech clear and appropriate. ED Treatment Course - RADIOLOGY Radiology Studies Ordered: Category Date Time Status ELBOW-LEFT [RAD] Stat Radiology 02/15/18 12:18 Ordered SHOULDER-LEFT [RAD] Stat Radiology 02/15/18 12:18 Ordered WRIST-LEFT [RAD] Stat Radiology 02/15/18 12:18 Ordered Medical Decision Making - Medical Decision Making 02/15/18 12:58 Pt seen and examined with a left elbow injury from 4 days ago. xray of left shoulder, elbow, wrist 02/15/18 13:53 left distal radial fracture noted on xray, no olecranon fx. no shoulder pain, pt with pain at radial wrist on flexion. Some swelling, ring removed splint applied, elbow area cleaned and bacitration and covering applied. Pt in a sling and follow up set up *DC/Admit/Observation/Transfer Diagnosis at time of Disposition: Distal radius fracture, left - Discharge Dispostion Disposition: HOME Condition at time of disposition: Fair Admit: No - Referrals Referrals: Alex Powell MD [Staff Physician] - - Patient Instructions Additional Instructions: Discharge instructions 1. Please follow up with your primary physician within the next few days and explain that you have been seen here in the Emergency Room. 2. If you experience any worsening of symptoms, please return to the ER 3. Rest, keep the arm elevated and with spint in place. tylenol for pain 4. Drink plenty of water Follow up with orthopedic this week - Post Discharge Activity
== END 2018-02-15 14:22 | disposition home or self-care (01) ==
LOC: JER 11:06
DX: S52.502A Unspecified fracture of the lower end of left radius, initial encounter for closed fracture (principal); X58.XXXA Exposure to other specified factors, initial encounter; Y92.9 Unspecified place or not applicable; Y93.9 Activity, unspecified
CPT/HCPCS: 73030-TC-LT-FY; 73070-TC-LT-FY; 73110-TC-LR-FY; 99282-25

== ENCOUNTER 2018-03-02 07:55 | Inpatient (IN) | payer OTHER ==
[2018-03-02 08:17] VITALS: BMI 22.6
[2018-03-02] MEDS ORDERED: SODIUM CHLORIDE 0.9% 500 ML INFUS.BAG IV ONE ×2 (08:25→12:17)
--- NOTE | 2018-03-02 08:25 | PDOC ---
Attending Attestation - [facility] HPI: 03/02/18 09:59 The patient is a 47 year old female, with a significant past medical history of hypertension, hepatitis C, opiate abuse on methadone, EtOH dependence, cocaine dependence who presents to the emergency department with abdominal pain since last night. The patient states that her pain is localized to the epigastric and right upper quadrant. She describes her abdominal pain as sharp and as a 10/10 in severity. She reports that the pain radiates to her back. The patient additionally reports multiple episodes of associated emesis and some shortness of breath. She reports multiple similar episodes of this pain in the past. The patient reports that she consumed a fifth of vodka last night. The patient denies fever, chills, headache, chest pain, diarrhea, constipation, dysuria, hematuria or any urinary frequency/urgency. The patient denies any recent travel. The patient denies any sick contacts. Allergies: Metoclopramide HCl; Prochlorperazine maleate Past Surgical History: None reported. Social History: Current everyday smoker. See HPI. - Physicial Exam PE: 03/02/18 09:59 GENERAL: Awake, alert, and fully oriented, chronically ill appearing, appears older than stated age. HEAD: No signs of trauma. EYES: PERRLA, EOMI, sclera anicteric, conjunctiva clear. ENT: Auricles normal inspection, hearing grossly normal, nares patent, oropharynx clear without exudates. Moist mucosa. NECK: Normal ROM, supple, no lymphadenopathy, JVD, or masses. LUNGS: Breath sounds equal, clear to auscultation bilaterally. No wheezes, and no crackles. HEART: Regular rate and rhythm, normal S1 and S2, no murmurs, rubs or gallops. ABDOMEN: Epigastric and RUQ tenderness to palpation. Soft, normoactive bowel sounds. No guarding, no rebound. No masses. EXTREMITIES: Normal range of motion, no edema. No clubbing or cyanosis. No cords , erythema, or tenderness. BACK: No midline spinal tenderness in cervical/thoracic/lumbar region. NEUROLOGICAL: Normal speech, cranial nerves intact, negative pronator drift, 5/ 5 strength in all 4 extremities, normal sensation to light touch in all 4 extremities, normal cerebellar exam,normal reflexes and tone. Gait deferred. SKIN: Warm, dry, normal turgor, no rashes or lesions noted. - Medical Decision Making 03/02/18 10:59 Documentation prepared by Rosa Gray, acting as medical technician assistant for Sarah Ramirez MD. <Rosa Gray - Last Filed: 03/02/18 10:59> - Resident Resident Name: Samantha Zimmerman - ED Attending Attestation I have performed the following: I have examined & evaluated the patient, The case was reviewed & discussed with the resident, I agree w/resident's findings & plan, Exceptions are as noted - Medical Decision Making 03/02/18 10:14 47yo F with MMP including PSA, pancreatitis presents to the ED with abd pain, NBNB vomiting. Vitals remarkable for elevated BP. DDx inlcudes but not limited to pancreatitis vs gastritis vs cholecystitis. Plan -labs -UA -pain control -reassess 03/02/18 13:14 Pt with persistent N/V, admitted to hospitalist. <Sarah Ramirez - Last Filed: 03/03/18 08:34>
[2018-03-02] MEDS ORDERED: ONDANSETRON 4 MG/2 ML VIAL IVPUSH ONE ×2 (08:26→11:37)
[2018-03-02 08:33] LABS: BASO % 0.7 % (0-2.0); EOS % 0.6 % (0-4.5); HEMATOCRIT 37.4 % (32.4-45.2); HEMOGLOBIN 12.9 GM/dL (10.7-15.3); LYMPH % 19.7 % (8-40); MCH 34.3 pg (25.7-33.7); MCHC 34.4 g/dl (32.0-36.0); MEAN CELL VOLUME 99.7 fl (80-96); MEAN PLT VOLUME 10.5 fl (7.5-11.1); MONO % 8.2 % (3.8-10.2); NEUT % 70.8 % (42.8-82.8); PLATELET COUNT 119 K/MM3 (134-434); RBC 3.75 M/mm3 (3.60-5.2); RDW 16.3 % (11.6-15.6); WHITE BLOOD COUNT 5.6 K/mm3 (4.0-10.0)
[2018-03-02] MEDS ORDERED: ONDANSETRON 4 MG/2 ML VIAL ONE ×2 (08:38→11:37)
--- NOTE | 2018-03-02 08:45 | PDOC ---
History of Present Illness - General Chief Complaint: Nausea/Vomiting Stated Complaint: VOMITING Time Seen by Provider: 03/02/18 08:16 History Source: Patient - History of Present Illness Initial Comments: 03/02/18 08:45 Patient is a 47 year old female with a PMH of ETOH and opiate abuse currently on methadone, HTN, Hepatitis C, pancreatitis, presents to our ED c/o 2 day h/o of abdominal pain and vomiting that started acutely yesterday evening. Pain is epigastric, sharp, 10/10 and radiates to her back without any noticed triggering or relieving factors. Endorses multiple episodes of NBNB emesis overnight as well as some subjective dyspnea. Is not tolerating PO intake. Last alcohol intake yesterday evening, / vodka. Also notes daily marijuana use. Patient denies fevers/chills, chest pain, diarrhea/constipation, dysuria/ hematuria, recent travel or sick contacts. Allergy: Reglan, Prochlorperazine Surgical: denies Social: daily nicotine, daily alcohol, daily marijuana Past History - Past Medical History Allergies/Adverse Reactions: Allergies Allergy/AdvReac Type Severity Reaction Status Date / Time metoclopramide HCl Allergy Severe dystonic Verified 03/02/18 08:04 [From Reglan] reaction prochlorperazine maleate Allergy Severe DYSTONIA Verified 03/02/18 08:04 [From Compazine] haloperidol [From Haldol] Allergy Verified 03/02/18 12:40 Home Medications: Ambulatory Orders Pantoprazole Sodium [Protonix] 40 mg PO BID #60 tablet. 01/04/18 Divalproex Sodium [Depakote] 250 mg PO BID #60 tablet. 02/06/18 Gabapentin 100 mg PO TID #90 capsule 02/06/18 Methadone [Dolophine -] 40 mg PO DAILY@0600 #0 tablet MDD 1 02/06/18 Quetiapine Fumarate [Quetiapine Fumarate ER] 300 mg PO HS #30 tab.er.24h Anemia: No Asthma: No Cancer: No Cardiac Disorders: No CVA: No COPD: No CHF: No Dementia: No Diabetes: No GI Disorders: Yes (pancreatitis, GERD) Disorders: No HTN: Yes Hypercholesterolemia: No Kidney Stones: No Liver Disease: Yes (hepatitis) Psychiatric Problems: Yes (bipolar) Seizures: No Thyroid Disease: No - Surgical History Abdominal Surgery: No Appendectomy: No Cardiac Surgery: No Cholecystectomy: No Lung Surgery: No Neurologic Surgery: No Orthopedic Surgery: No - Reproductive History (#): 13 Para: 11 PID: No - Immunization History Immunization Up to Date: No - Suicide/Smoking/Psychosocial Hx Smoking History: Current every day smoker Have you smoked in the past 12 months: Yes Number of Cigarettes Smoked Daily: 3 Cigars Per Day: 0 Information on smoking cessation initiated: No 'Breaking Loose' booklet given: 01/11/18 Hx Alcohol Use: Yes Drug/Substance Use Hx: No Substance Use Type: Alcohol, Marijuana Hx Substance Use Treatment: Yes ([facility]) Review of Systems - Review of Systems Constitutional: No: Chills, Fever HEENTM: No: Recent change in vision, Throat Pain Respiratory: Yes: Shortness of Breath. No: Cough, Wheezing Cardiac (ROS): No: Chest Pain, Lightheadedness, Palpitations, Syncope ABD/GI: Yes: Nausea, Vomiting, Abdominal cramping. No: Constipated, Diarrhea : No: Burning, Dysuria, Frequency *Physical Exam - Vital Signs Last Vital Signs Temp Pulse Resp BP Pulse Ox 98.7 F 66 18 150/119 98 03/02/18 08:04 03/02/18 08:40 03/02/18 08:40 03/02/18 08:40 03/02/18 08:40 - Physical Exam Comments: 03/02/18 10:37 GENERAL: Awake, alert, and fully oriented, in no acute distress HEAD: No signs of trauma EYES: PERRLA, EOMI, sclera anicteric, conjunctiva clear ENT: Auricles normal inspection, hearing grossly normal, nares patent, oropharynx clear without exudates. Moist mucosa NECK: Nontender, no stepoffs, Normal ROM, supple, no lymphadenopathy, JVD, or masses LUNGS: Breath sounds equal, clear to auscultation bilaterally. No wheezes, and no crackles HEART: Regular rate and rhythm, normal S1 and S2, no murmurs, rubs or gallops ABDOMEN: Epigastric TTP, equivocal Costello's sign, EXTREMITIES: Normal range of motion, no edema. No clubbing or cyanosis. No cords, erythema, or tenderness SKIN: Warm, Dry, normal turgor, no rashes or lesions noted. ED Treatment Course - LABORATORY CBC & Chemistry Diagram: 03/03/18 05:49 03/03/18 05:49 - ADDITIONAL ORDERS Additional order review: 03/02/18 08:24 RBC 3.75 MCV 99.7 H MCHC 34.4 RDW 16.3 H D MPV 10.5 Neutrophils % 70.8 D Lymphocytes % 19.7 D Monocytes % 8.2 D Eosinophils % 0.6 D Basophils % 0.7 - Medications Given in the ED: ED Medications Discontinued Medications Generic Name Dose Route Start Last Admin Trade Name [place] PRN Reason Stop Dose Admin Ondansetron HCl 4 mg 03/02/18 08:26 03/02/18 08:40 Zofran Injection IVPUSH 03/02/18 08:27 4 mg ONCE ONE Administration Sodium Chloride 1,000 ml 03/02/18 08:25 03/02/18 08:37 Normal Saline - IV 03/02/18 08:26 1,000 ml ONCE ONE Administration Medical Decision Making - Medical Decision Making 03/02/18 09:06 47 year old female who presents to our ED c/o abdominal pain and vomiting. H/o ETOH abuse. Frontal diagnosis: pancreatitis, hyperemesis 2/2 to cannabis, cholecystitis, early appendicitis, viral gastroenteritis. Elevated BP 175/112 ( likely 2/2 to pain)-- will monitor, will obtain Lipase, CBC, CMP, UA, Urine toxicology. Zofran + IV NS. Reassess. 03/02/18 10:15 ECG shows NSR HR 62, TWI in V3, no ESTELA/STD, QT prolongation; patient continue to c/o nausea/emesis. 03/02/18 10:26 Urine toxicology positive for opiates and marijuana. 03/02/18 11:36 CMP shows AST > ALT x2 c/w alcoholic hepatitis 03/02/18 12:14 Lipase 305, max Lipase 644 -- expect limited Lipase 2/2 to decreased pancreatic function 2/2 to alcohol abuse. Patient refuses trial of Haldol for presumed cannabis hyperemesis syndrome. 03/02/18 13:32 Patient admitted to hospitalist for further evaluation. *DC/Admit/Observation/Transfer Diagnosis at time of Disposition: Cannabis hyperemesis syndrome concurrent with and due to cannabis abuse - Discharge Dispostion Condition at time of disposition: Fair Admit: Yes - Referrals - Patient Instructions - Post Discharge Activity
[2018-03-02 09:36] LABS: URINE APPEARANCE CLEAR; URINE BILIRUBIN NEGATIVE (<2.0 mg/dL); URINE COLOR STRAW; URINE GLUCOSE (UA) 1+ (NEGATIVE); URINE KETONE NEGATIVE (NEGATIVE); URINE LEUK ESTERASE NEGATIVE (NEGATIVE); URINE NITRITE NEGATIVE (NEGATIVE); URINE PROTEIN NEGATIVE (NEGATIVE); URINE UROBILINOGEN NEGATIVE mg/dL (0.2-1.0)
[2018-03-02 09:40] LABS: HCG,QUALITATIVE URINE NEGATIVE
[2018-03-02 10:17] LABS: COCAINE, UR NEGATIVE ng/ml (CUTOFF=300); METHADONE, UR POSITIVE ng/ml (CUTOFF=300); OPIATES, URI NEGATIVE ng/ml (CUTOFF=300); PHENCYCLIDINE,URINE NEGATIVE ng/ml (CUTOFF=25); URINE AMPHETAMINES NEGATIVE ng/ml (CUTOFF=500); URINE BARBITURATES NEGATIVE ng/ml (CUTOFF=200); URINE BENZODIAZEPINES NEGATIVE ng/ml (CUTOFF=200)
[2018-03-02 10:42] LABS: ALBUMIN 3.7 g/dl (3.4-5.0); ALK PHOS 162 U/L (45-117); ANION GAP 11 (8-16); BILIRUBIN,TOTAL 0.9 mg/dL (0.2-1.0); BLOOD UREA NITROGEN 7 mg/dL (7-18); CALCIUM 8.5 mg/dL (8.5-10.1); CHLORIDE 105 mmol/L (98-107); CO2 22 mmol/L (21-32); CREATININE 0.5 mg/dL (0.55-1.02); GLUCOSE,RANDOM 172 mg/dL (74-106); SGPT/ALT 70 U/L (12-78); SODIUM 138 mmol/L (136-145); TOT PROT 8.6 g/dl (6.4-8.2)
[2018-03-02 10:47] LABS: POTASSIUM 3.8 mmol/L (3.5-5.1); SGOT/AST 144 U/L (15-37)
[2018-03-02 12:04] LABS: LIPASE 305 U/L (73-393)
[2018-03-02] MEDS ORDERED: HALOPERIDOL LACTATE 5 MG/ML IM ONE (12:15)
[2018-03-02] MEDS ORDERED: HALOPERIDOL LACTATE 5 MG/ML ONE (12:36)
--- NOTE | 2018-03-02 13:01 | EKG ---
Test Reason : Blood Pressure : / mmHG Vent. Rate : 062 BPM Atrial Rate : 062 BPM P-R Int : 136 ms QRS Dur : 086 ms QT Int : 482 ms P-R-T Axes : 072 060 057 degrees QTc Int : 489 ms NORMAL SINUS RHYTHM VOLTAGE CRITERIA FOR LEFT VENTRICULAR HYPERTROPHY CANNOT RULE OUT SEPTAL INFARCT (CITED ON OR BEFORE 12-JAN-2018) T WAVE ABNORMALITY, CONSIDER ANTERIOR ISCHEMIA ABNORMAL ECG WHEN COMPARED WITH ECG OF 31-JAN-2018 11:29, NO SIGNIFICANT CHANGE WAS FOUND Confirmed by KELLY LOBO MD ([id number]) on 03/02/2018 1:00:58 PM Referred By: Confirmed By:KELLY LOBO MD
[2018-03-02] MEDS ORDERED: ONDANSETRON 4 MG/2 ML VIAL IVPUSH PRN ×2 (13:13→13:46)
[2018-03-02] MEDS ORDERED: FOLIC ACID INJECTION - 1 MG, THIAMINE HCL 100 MG, MULTIVIT INJECTION ADULT 10 ML in SOD... IVPB ONE (13:14)
[2018-03-02] MEDS ORDERED: chlordiazePOXIDE HCL 25 MG CAPSULE PO PRN ×2 (13:18→22:58)
--- NOTE | 2018-03-02 13:54 | HP ---
CHIEF COMPLAINT: Pain abdomen and vomiting PCP: none HISTORY OF PRESENT ILLNESS:47 year old female with a PMH of ETOH, opiate abuse currently on methadone, HTN, Hepatitis C, chronic pancreatitis, presents to our ED c/o pain abdomen and vomiting since yesterday. Pain started after drinking a vodka, in epigastric area 10/10 in intensity, radiating to back, constant, sudden in onset, cramping in nature. Vomiting started with pain, many times, bilious in color, no blood. Also reports 20 pound weight loss since last admission. Also reports decrease in appetite. Denies blood in stool, constipation and diarrhoea. Has last drink yesterday and has smoked marijuana yesterday Rest patient said yes to all ROS ER course was notable for: (1)cbc, cmp, lipase (2)IV fluid NS 1 L (3)Zofran Recent Travel: No PAST MEDICAL HISTORY: as above PAST SURGICAL HISTORY: CS x 2 Smokin cigarettes a day Alcohol: frequent, last drink yesterday (11/04 of vodka) Drugs: cocaine and opiates Family History: grandmother has cancer but don't know which type. Allergies metoclopramide HCl [From Reglan] Allergy (Severe, Verified 03/02/18 08:04) dystonic reaction dystonic reaction prochlorperazine maleate [From Compazine] Allergy (Severe, Verified 03/02/18 08: 04) DYSTONIA haloperidol [From Haldol] Allergy (Verified 03/02/18 12:40) HOME MEDICATIONS: Home Medications Medication Instructions Recorded Pantoprazole Sodium [Protonix] 40 mg PO BID #60 tablet. 01/04/18 Divalproex Sodium [Depakote] 250 mg PO BID #60 tablet. 02/06/18 Gabapentin 100 mg PO TID #90 capsule 02/06/18 Methadone [Dolophine -] 40 mg PO DAILY@0600 #0 tablet MDD 1 02/06/18 Quetiapine Fumarate [Quetiapine 300 mg PO HS #30 tab.er.24h 02/06/18 Fumarate ER] REVIEW OF SYSTEMS; patient said yes to all systems PHYSICAL EXAMINATION Vital Signs - 24 hr 03/02/18 03/02/18 08:04 08:40 Temperature 98.7 F Pulse Rate 75 Pulse Rate [ 66 Apical] Respiratory 20 18 Rate Blood Pressure 175/112 Blood Pressure 150/119 [Right Arm] O2 Sat by Pulse 98 98 Oximetry (%) GENERAL: Awake, alert, and fully oriented, in acute distress. HEAD: Normal with no signs of trauma. EYES:, extraocular movements intact, sclera anicteric, conjunctiva clear. No lid lag. EARS, NOSE, THROAT: oropharynx clear without exudates. dry mucous membranes. NECK: Normal range of motion, supple without lymphadenopathy, JVD, or masses. LUNGS: Breath sounds equal, clear to auscultation bilaterally. No wheezes, and no crackles. No accessory muscle use. HEART: Regular rate and rhythm, normal S1 and S2 ABDOMEN: Soft, nontender, not distended, normoactive bowel sounds, no guarding, no rebound, no masses. MUSCULOSKELETAL: Normal range of motion at all joints. No bony deformities or tenderness. UPPER EXTREMITIES: 2+ pulses, warm, well-perfused. No cyanosis. No peripheral edema. LOWER EXTREMITIESd. No calf tenderness. No peripheral edema. NEUROLOGICAL: Cranial nerves II-XII intact. Normal speech. gait not checked, moving all 4 limbs PSYCHIATRIC: Cooperative. SKIN: Warm, dry, Laboratory Results - last 24 hr 03/02/18 03/02/18 03/02/18 08:24 08:24 09:10 WBC 5.6 D RBC 3.75 Hgb 12.9 D Hct 37.4 MCV 99.7 H MCH 34.3 H MCHC 34.4 RDW 16.3 H D Plt Count 119 L MPV 10.5 Neutrophils % 70.8 D Lymphocytes % 19.7 D Monocytes % 8.2 D Eosinophils % 0.6 D Basophils % 0.7 Sodium Cancelled Potassium Cancelled Chloride Cancelled Carbon Dioxide Cancelled Anion Gap Cancelled BUN Cancelled Creatinine Cancelled Creat Clearance w eGFR Cancelled Random Glucose Cancelled Calcium Cancelled Total Bilirubin Cancelled AST Cancelled ALT Cancelled Alkaline Phosphatase Cancelled Total Protein Cancelled Albumin Cancelled Lipase Cancelled Urine Color Urine Appearance Urine pH Ur Specific [place] Urine Protein Urine Glucose (UA) Urine Ketones Urine Blood Urine Nitrite Urine Bilirubin Urine Urobilinogen Ur Leukocyte Esterase Urine HCG, Qual Opiates Screen Methadone Screen Barbiturate Screen Phencyclidine Screen Ur Amphetamines Screen MDMA (Ecstasy) Screen Benzodiazepines Screen Cocaine Screen U Marijuana (THC) Screen Alcohol, Quantitative Cancelled 03/02/18 03/02/18 03/02/18 09:10 09:25 09:40 WBC RBC Hgb Hct MCV MCH MCHC RDW Plt Count MPV Neutrophils % Lymphocytes % Monocytes % Eosinophils % Basophils % Sodium 138 Potassium 3.8 Chloride 105 Carbon Dioxide 22 Anion Gap 11 BUN 7 Creatinine 0.5 L Creat Clearance w eGFR > 60 Random Glucose 172 H Calcium 8.5 Total Bilirubin 0.9 D AST 144 H ALT 70 Alkaline Phosphatase 162 H Total Protein 8.6 H Albumin 3.7 Lipase 305 Urine Color Straw Urine Appearance Clear Urine pH 8.0 Ur Specific [place] 1.006 Urine Protein Negative Urine Glucose (UA) 1+ H D Urine Ketones Negative Urine Blood Negative Urine Nitrite Negative Urine Bilirubin Negative Urine Urobilinogen Negative Ur Leukocyte Esterase Negative Urine HCG, Qual Negative Opiates Screen Negative Methadone Screen Positive Barbiturate Screen Negative Phencyclidine Screen Negative Ur Amphetamines Screen Negative MDMA (Ecstasy) Screen Negative Benzodiazepines Screen Negative Cocaine Screen Negative U Marijuana (THC) Screen Positive Alcohol, Quantitative ASSESSMENT/PLAN: 47 year old female with a PMH of ETOH, opiate abuse currently on methadone, HTN, Hepatitis C, chronic pancreatitis, presents to our ED c/o pain abdomen and vomiting since yesterday. Intractable vomiting with pain abdomen: Likely from alcohol gastritis, PUD, chronic pancreatitis, Marijuana use, alcohol intoxication IV fluid D5NS with 20meq kcl 75 ml/hr will give benadryl and ativan for vomiting,. pain control with morphine. avoid tylenol for elevated transaminase, avoid NSAID for gastritis. monitor intake and output. Monitor vitals protonix iV bid needs to get MRCP but patient refused. alcohol intoxicaton no nystagmus, no slurred speech, gait not checked, no tremors in tongue. get blood alcohol level. carmita agreed for detox librium protocol. banana bag thiamine and folic acid daily detox consult Hold gabapentin as patient can got over sedated last time. Opiate dependence continue methadone 40 daily Transamenitis could be due to alcohol or hepatitis c hep b serology negative last time, patient has no vaccination for hep b get liver ultrasound last USG shoes dilated CBD. Patient refused for MRCP as patient has dilated sbd and pancreatic duct with loss of weight, we will get CA19-9. QTC prolongation keep k >4, mg>2 carmita is on lot of qtc prolonging drugs EKG every day. Hold seraquil for now. HTN could be from withdrawal. monitor Fluid: D5NS 75 mlhr 20 meq electrolyte ; repeat in am nutrition: npo for now dvt pro: scd gi pro: protonix Visit type - Emergency Visit Emergency Visit: Yes ED Registration Date: 03/02/18 Care time: The patient presented to the Emergency Department on the above date and was hospitalized for further evaluation of their emergent condition. - New Patient This patient is new to me today: Yes Date on this admission: 03/02/18 - Critical Care Critical Care patient: No
[2018-03-02] MEDS ORDERED: GABAPENTIN 100 MG CAPSULE (FP) PO SCH (14:00)
--- NOTE | 2018-03-02 14:00 | HP ---
CHIEF COMPLAINT: Abdominal pain, nausea and vomiting PCP: None HISTORY OF PRESENT ILLNESS: The patient is a 47 yo f w/ PMH ETOH and polysubstance abuse who comes into the ED c/o abdominal pain. The patient states that she was drinking vodka when she experienced an acute onset of dull epigastric pain which was 10/10 in intensity and radiated to her back. The pain was associated with nausea and NBNB vomiting. The patient states that she vomited "too many times to count". Patient also endorses weight loss since her last admission. The patient denies dysuria, changes in bowel color or caliber, constipation, diarrhea, chest pain, fevers, chills. ER course was notable for: (1) EKG showing NSR, unchanged from previous admission; QTc 489 (2) 1L NS (3) Recent Travel: none PAST MEDICAL HISTORY: HTN Hepatitis C Virus Bipolar Disorder PAST SURGICAL HISTORY: 2 Cesarian Sections Social History: Smoking: active smoker. Smokes 3 cigs per day Alcohol: Drinks approx 1/5 vodka every day Drugs: daily marijuana use Family History: non-contributory Allergies metoclopramide HCl [From Reglan] Allergy (Severe, Verified 03/02/18 08:04) dystonic reaction dystonic reaction prochlorperazine maleate [From Compazine] Allergy (Severe, Verified 03/02/18 08: 04) DYSTONIA haloperidol [From Haldol] Allergy (Verified 03/02/18 12:40) HOME MEDICATIONS: Home Medications Medication Instructions Recorded Pantoprazole Sodium [Protonix] 40 mg PO BID #60 tablet. 01/04/18 Divalproex Sodium [Depakote] 250 mg PO BID #60 tablet. 02/06/18 Gabapentin 100 mg PO TID #90 capsule 02/06/18 Methadone [Dolophine -] 40 mg PO DAILY@0600 #0 tablet MDD 1 02/06/18 Quetiapine Fumarate [Quetiapine 300 mg PO HS #30 tab.er.24h 02/06/18 Fumarate ER] REVIEW OF SYSTEMS CONSTITUTIONAL: Absent: fever, chills, diaphoresis, generalized weakness, malaise, loss of appetite, weight change HEENT: Absent: rhinorrhea, nasal congestion, throat pain, throat swelling, difficulty swallowing, mouth swelling, ear pain, eye pain, visual changes CARDIOVASCULAR: Absent: chest pain, syncope, palpitations, irregular heart rate, lightheadedness , peripheral edema RESPIRATORY: Absent: cough, shortness of breath, dyspnea with exertion, orthopnea, wheezing, stridor, hemoptysis GASTROINTESTINAL: Absent: abdominal distension, diarrhea, constipation, melena, hematochezia GENITOURINARY: Absent: dysuria, frequency, urgency, hesitancy, hematuria, flank pain, genital pain MUSCULOSKELETAL: Absent: myalgia, arthralgia, joint swelling, back pain, neck pain SKIN: Absent: rash, itching, pallor HEMATOLOGIC/IMMUNOLOGIC: Absent: easy bleeding, easy bruising, lymphadenopathy, frequent infections ENDOCRINE: Absent: unexplained weight gain, unexplained weight loss, heat intolerance, cold intolerance NEUROLOGIC: Absent: headache, focal weakness or paresthesias, dizziness, unsteady gait, seizure, mental status changes, bladder or bowel incontinence PSYCHIATRIC: Absent: anxiety, depression, suicidal or homicidal ideation, hallucinations. PHYSICAL EXAMINATION Vital Signs - 24 hr 03/02/18 03/02/18 08:04 08:40 Temperature 98.7 F Pulse Rate 75 Pulse Rate [ 66 Apical] Respiratory 20 18 Rate Blood Pressure 175/112 Blood Pressure 150/119 [Right Arm] O2 Sat by Pulse 98 98 Oximetry (%) GENERAL: Awake, alert, and fully oriented, in moderate distress. Patient was actively vomiting during interview. Patient appears cachectic and disheveled. HEAD: Normal with no signs of trauma. EYES: Pupils equal, round and reactive to light, extraocular movements intact, sclera anicteric, conjunctiva clear. No lid lag. NOSE, THROAT: nares patent, oropharynx clear without exudates. Dry mucous membranes. NECK: Normal range of motion, supple without lymphadenopathy, JVD, or masses. LUNGS: Breath sounds equal, clear to auscultation bilaterally. No wheezes, and no crackles. No accessory muscle use. HEART: Regular rate and rhythm, normal S1 and S2 without murmur, rub or gallop. ABDOMEN: Soft, not distended, normoactive bowel sounds. Palpation of all quadrants elicited epigastric tenderness. There was voluntary guarding. LOWER EXTREMITIES: 2+ pulses, warm, well-perfused. No calf tenderness. No peripheral edema. NEUROLOGICAL: Cranial nerves II-X intact. Normal speech. SKIN: Warm, dry, normal turgor, no rashes or lesions noted, normal capillary refill. Laboratory Results - last 24 hr 03/02/18 03/02/18 03/02/18 08:24 08:24 09:10 WBC 5.6 D RBC 3.75 Hgb 12.9 D Hct 37.4 MCV 99.7 H MCH 34.3 H MCHC 34.4 RDW 16.3 H D Plt Count 119 L MPV 10.5 Neutrophils % 70.8 D Lymphocytes % 19.7 D Monocytes % 8.2 D Eosinophils % 0.6 D Basophils % 0.7 Sodium Cancelled Potassium Cancelled Chloride Cancelled Carbon Dioxide Cancelled Anion Gap Cancelled BUN Cancelled Creatinine Cancelled Creat Clearance w eGFR Cancelled Random Glucose Cancelled Calcium Cancelled Total Bilirubin Cancelled AST Cancelled ALT Cancelled Alkaline Phosphatase Cancelled Total Protein Cancelled Albumin Cancelled Lipase Cancelled Urine Color Urine Appearance Urine pH Ur Specific [place] Urine Protein Urine Glucose (UA) Urine Ketones Urine Blood Urine Nitrite Urine Bilirubin Urine Urobilinogen Ur Leukocyte Esterase Urine HCG, Qual Opiates Screen Methadone Screen Barbiturate Screen Phencyclidine Screen Ur Amphetamines Screen MDMA (Ecstasy) Screen Benzodiazepines Screen Cocaine Screen U Marijuana (THC) Screen Alcohol, Quantitative Cancelled 03/02/18 03/02/18 03/02/18 09:10 09:25 09:40 WBC RBC Hgb Hct MCV MCH MCHC RDW Plt Count MPV Neutrophils % Lymphocytes % Monocytes % Eosinophils % Basophils % Sodium 138 Potassium 3.8 Chloride 105 Carbon Dioxide 22 Anion Gap 11 BUN 7 Creatinine 0.5 L Creat Clearance w eGFR > 60 Random Glucose 172 H Calcium 8.5 Total Bilirubin 0.9 D AST 144 H ALT 70 Alkaline Phosphatase 162 H Total Protein 8.6 H Albumin 3.7 Lipase 305 Urine Color Straw Urine Appearance Clear Urine pH 8.0 Ur Specific [place] 1.006 Urine Protein Negative Urine Glucose (UA) 1+ H D Urine Ketones Negative Urine Blood Negative Urine Nitrite Negative Urine Bilirubin Negative Urine Urobilinogen Negative Ur Leukocyte Esterase Negative Urine HCG, Qual Negative Opiates Screen Negative Methadone Screen Positive Barbiturate Screen Negative Phencyclidine Screen Negative Ur Amphetamines Screen Negative MDMA (Ecstasy) Screen Negative Benzodiazepines Screen Negative Cocaine Screen Negative U Marijuana (THC) Screen Positive Alcohol, Quantitative ASSESSMENT/PLAN: The patient is a 47 yo f w/ PMH polysubstance abuse, chronic pancreatitis, HCV and bipolar disorder who is being admitted for intractable nausea and vomiting. #Intractable nausea and vomiting 2/2 ETOH induced gastritis vs acute on chronic pancreatitis vs cyclic vomiting syndrome 2/2 marijuana use -NPO, will advance diet as tolerated -Protonix 40mg IV BID -Bendadryl and ativan PRN nausea/withdrawal symptoms -Patient allergic to reglan and compazine. With a prolonged QTc, will avoid Zofran. #Prolonged QTc -admission EKG w/ QTc 489 -avoid QT prolonging agents. -Holding home seroquel -Rpt EKG in AM #polysubstance abuse -Banana Bag -Detox consult -began Librium protocol -Thiamine 100mg daily -detox consult -will supplement and replete lytes #Transaminitis likely 2/2 ETOH abuse and HCV -PMH HCV -RUQ US on last admission showed dilated CBD -will obtain rpt ultrasound of the abdomen to assess the CBD -offered MRCP to patient. Patient refused knowing the risks of doing so #FEN -banana bag, then D5-NS w/ 20meq KCL @75 -monitor and replete lytes PRN -NPO, will advance as tolerated #PPTX -SCDs -IV protonix 40 BID #Dispo -Admit to tele Visit type - Emergency Visit Emergency Visit: Yes ED Registration Date: 03/02/18 Care time: The patient presented to the Emergency Department on the above date and was hospitalized for further evaluation of their emergent condition. - New Patient This patient is new to me today: Yes Date on this admission: 03/02/18 - Critical Care Critical Care patient: No Hospitalist Screening - Colonoscopy Questionnaire Colonoscopy Questionnaire: Colonoscopy Questionnaire - Patient: 50 - 75 years old and never had a screening colonoscopy: Unknown History of colon or rectal polyps, or CA: Unknown History of IBD, Crohn's disease or UC: Unknown History of abdominal radiation therapy as a child: Unknown - Relative: 1 with colon or rectal CA, or polyps at age 60 or younger: Unknown Colon or rectal CA diagnosed at age 45 or younger: Unknown Multiple relatives with colon or rectal CA: Unknown - Outcome: Screening Result: Negative Screen
--- NOTE | 2018-03-02 14:13 | PN ---
Teaching Attending Note Name of Resident: Juan Luis Evans ATTENDING PHYSICIAN STATEMENT I saw and evaluated the patient. I reviewed the resident's note and discussed the case with the resident. I agree with the resident's findings and plan as documented. SUBJECTIVE: 47 y/o lady with h/o ETOH abuse, Opioid abuse on methadone, chronic Hep C, chronic pancreatitis, bipolar disorder , and a recent admission for N/V who presented this time with N/V. sx started 2 days ago with recurrent non bloody non bilious vomiting. epigastric pain with no radiation . reports drinking alcohol daily and using marijuana daily. She reports SHOOK , and CP and SOb only during vomitng. has blurry vision but needs her glasses. she denies diarrhea or hematochezia. OBJECTIVE: NAD. looks ill. dry MM, no facial droop.EOMI, round equal pupils reactive to light . CV: RRR, no MRG lungs : CTAB Ext : no edema or erythema. Abd: non distended , non tender. hypoactive BS. Neuro ; EOMI, round equal pupils , reactive to light. no facial droop, tongue at mid line. strength 5/5 in upper extremities proximally and distally. LE strength was only tested distally( naked in bed in hallway ) 5/5 knee flexion and extension. and ankle dorsiflexion and plantar flexion. Labs reviewed. ASSESSMENT AND PLAN: 47 y/o lady with h/o ETOH abuse, Opioid abuse on methadone, chronic Hep C, chronic pancreatitis, bipolar disorder , and a recent admission for N/V who presented this time with N/V. 1- Intractable N/V: likely cyclic vomiting syndrome form Marijuana. Other DDx includes gastritis /PUD/acute on chronic pancreatitis ( even with NL lipase). No signs of infection - IVF with D5 + Kcl - avoid zofran and other QTc prolonging agent for nausea - try benadryl and ativan for nausea - PPI - NPO for now , will introduce clears tomorrow - monitor and replete electrolytes 2- Transaminitis : likely due to alcohol liver toxicity/mild alcoholic hepatitis on back ground of hep C. - monitor levels - US - has h/o dialted CBd ( 1.2 cm on US 02/15, and 0.9 cm on MRI 07/17) . refuses MRCP now 3- Dilated pancreatic duct, 2.4 mm on US 02/15. no Pancreatic masses on MRI / - refused MRCP this time and last admission 4- Prolonged Qtc . due to methadone and seroquel . - dc seroquel - cont methadone - avoid zofran if possible - monitor on tele 5- ETOH intoxication : - give IV thiamin - start po thiamine and folic - librium protocol 6- HTN: treat nausea and withdrawal and follow BP. if needed can start medications dipo : HLOC . admit to tele
--- NOTE | 2018-03-02 14:18 | CONSULT ---
Consult Detox [facility] Reason for Current Admission/Consult: substance use Referred by:: raphael santacruz - Alcohol/Substance Use Hx Alcohol Use: Yes - Past Medical History Gastrointestinal: Yes: Pancreatitis Hepatobiliary: Yes: Hepatitis C ...LMP: 12/11/17 Infectious Disease: Yes: HIV, Other (hcv) Psych: Yes: Addictions, Bipolar - Past Surgical History Past Surgical History: Yes: None Assessment Plan - Plan Plan: 47 yo f with h/o alcohol use disorder, severe and oud , severe on methadone was on 80mg but because of continued alcohol use her dose was reduced to 40mg daily , multiple admissions to [facility], on libirum detox. 1. fluids, vitamins, libirum detox as ordered 2. control bp 3. return to [facility] or refer to [facility] when detox completed and medically stable. - Medication Detox Regimen/Protocol: Librium
[2018-03-02 16:15] LABS: MAGNESIUM 1.4 mg/dL (1.8-2.4); PHOSPHOROUS 2.7 mg/dL (2.5-4.9)
[2018-03-02] MEDS ORDERED: chlordiazePOXIDE HCL 25 MG CAPSULE PO SCH (17:00)
[2018-03-02] MEDS ORDERED: MAGNESIUM SULF 50% (8.12 MEQ/2 ML-1 GM VIAL) IVPB ONE (17:03)
[2018-03-02] MEDS ORDERED: LABETALOL HCL 5 MG/1 ML (100MG/20 ML VIAL) IVPUSH ONE (17:51)
[2018-03-02] MEDS ORDERED: PT OWN MED DRAWER 7, Y5N ONE (19:05)
[2018-03-02] MEDS: MAGNESIUM 1GM/D5W - 1 GM/100 ML IVPB IVPB SCH ×2 (20:08→20:15)
[2018-03-02] MEDS: DIVALPROEX SODIUM 250 MG TABLET E.C. PO SCH (21:42)
[2018-03-02] MEDS: PANTOPRAZOLE SODIUM 40 MG VIAL IVPUSH SCH (21:43)
[2018-03-02] MEDS: THIAMINE HCL 100 MG TABLET (FP) PO SCH (21:43)
[2018-03-02] MEDS ORDERED: D5-NS + 20 MEQ KCL - 20 MEQ/1,000 ML INFUS.BAG IV SCH (22:00)
[2018-03-02] MEDS: chlordiazePOXIDE HCL 25 MG CAPSULE PO SCH (23:00)
[2018-03-02] MEDS: D5-NS + 20 MEQ KCL - 20 MEQ/1,000 ML INFUS.BAG IV SCH (23:22)
[2018-03-03] MEDS: chlordiazePOXIDE HCL 25 MG CAPSULE PO SCH ×4 (05:00→22:50)
[2018-03-03] MEDS ORDERED: MAGNESIUM OXIDE 400 MG TABLET (FP) PO ONE (06:10)
[2018-03-03 06:47] LABS: HEMATOCRIT 42.4 % (32.4-45.2); HEMOGLOBIN 14.6 GM/dL (10.7-15.3); MCH 34.5 pg (25.7-33.7); MCHC 34.5 g/dl (32.0-36.0); MEAN CELL VOLUME 100.2 fl (80-96); MEAN PLT VOLUME 10.9 fl (7.5-11.1); PLATELET COUNT 148 K/MM3 (134-434); RBC 4.23 M/mm3 (3.60-5.2); RDW 15.9 % (11.6-15.6); WHITE BLOOD COUNT 8.7 K/mm3 (4.0-10.0)
[2018-03-03] MEDS ORDERED: METHADONE HCL 10 MG TABLET ONE (06:47)
[2018-03-03 06:58] LABS: ALBUMIN 3.3 g/dl (3.4-5.0); ANION GAP 11 (8-16); BLOOD UREA NITROGEN 7 mg/dL (7-18); CALCIUM 8.4 mg/dL (8.5-10.1); CHLORIDE 101 mmol/L (98-107); CO2 24 mmol/L (21-32); CREATININE 0.7 mg/dL (0.55-1.02); GLUCOSE,RANDOM 114 mg/dL (74-106); MAGNESIUM 2.2 mg/dL (1.8-2.4); PHOSPHOROUS 2.5 mg/dL (2.5-4.9); POTASSIUM 3.5 mmol/L (3.5-5.1); SGOT/AST 66 U/L (15-37); SGPT/ALT 55 U/L (12-78); SODIUM 136 mmol/L (136-145)
[2018-03-03 07:00] LABS: ALK PHOS 154 U/L (45-117); TOT PROT 8.4 g/dl (6.4-8.2)
[2018-03-03 07:05] LABS: INR 0.96 (0.82-1.09); PROTHROMBIN TIME (PATIENT) 10.8 SEC (9.7-13.0)
[2018-03-03] MEDS ORDERED: METHADONE HCL 40 MG DISPERSABLE TABLET PO SCH (09:15)
[2018-03-03] MEDS ORDERED: PT OWN MED DRAWER 7, Y5N ONE ×2 (09:15→16:59)
[2018-03-03] MEDS: DIVALPROEX SODIUM 250 MG TABLET E.C. PO SCH ×2 (09:19→21:03)
[2018-03-03] MEDS: FOLIC ACID 1 MG TABLET (FP) PO SCH (09:19)
[2018-03-03] MEDS: PANTOPRAZOLE SODIUM 40 MG VIAL IVPUSH SCH ×2 (09:20→21:03)
[2018-03-03] MEDS ORDERED: PRENATAL VITAMINS W/ FOLIC ACID TABLET (FP) PO SCH (10:00)
[2018-03-03] MEDS ORDERED: FOLIC ACID 1 MG TABLET (FP) PO SCH (10:00)
[2018-03-03] MEDS ORDERED: THIAMINE HCL 100 MG TABLET (FP) PO SCH (10:00)
--- NOTE | 2018-03-03 14:49 | PN ---
Physical Exam: SUBJECTIVE: Patient seen and examined at bedside. Patient endorses continued vomiting throughout the night. OBJECTIVE: Vital Signs Period Temp Pulse Resp BP Sys/Moore Pulse Ox Last 24 Hr 97.9 F-100.3 F 74-98 14-20 98-162/70-98 97-99 GENERAL: The patient is awake, alert, and fully oriented, in mild distress. HEAD: Normal with no signs of trauma. NECK: Trachea midline, full range of motion, supple. LUNGS: Breath sounds equal, clear to auscultation bilaterally, no wheezes, no crackles, no accessory muscle use. HEART: Regular rate and rhythm, S1, S2 without murmur, rub or gallop. ABDOMEN: Soft, nontender, nondistended, normoactive bowel sounds, no guarding, no rebound, no hepatosplenomegaly, no masses. EXTREMITIES: 2+ pulses, warm, well-perfused, no edema. NEUROLOGICAL: Cranial nerves II through X grossly intact. Normal speech, gait not observed. SKIN: Warm, dry, normal turgor, no rashes or lesions noted Laboratory Results - last 24 hr 03/02/18 03/02/18 03/03/18 14:56 15:45 05:49 WBC 8.7 D RBC 4.23 Hgb 14.6 D Hct 42.4 MCV 100.2 H MCH 34.5 H MCHC 34.5 RDW 15.9 H Plt Count 148 D MPV 10.9 PT with INR INR Sodium Potassium Chloride Carbon Dioxide Anion Gap BUN Creatinine Creat Clearance w eGFR Random Glucose Calcium Phosphorus 2.7 Magnesium 1.4 L Total Bilirubin AST ALT Alkaline Phosphatase Total Protein Albumin Alcohol, Quantitative < 5.0 03/03/18 03/03/18 05:49 05:49 WBC RBC Hgb Hct MCV MCH MCHC RDW Plt Count MPV PT with INR 10.80 INR 0.96 Sodium 136 Potassium 3.5 Chloride 101 Carbon Dioxide 24 Anion Gap 11 BUN 7 Creatinine 0.7 Creat Clearance w eGFR > 60 Random Glucose 114 H Calcium 8.4 L Phosphorus 2.5 Magnesium 2.2 Total Bilirubin 1.0 AST 66 H ALT 55 Alkaline Phosphatase 154 H Total Protein 8.4 H Albumin 3.3 L Alcohol, Quantitative Active Medications Generic Name Dose Route Start Last Admin Trade Name Freq PRN Reason Stop Dose Admin Chlordiazepoxide HCl 25 mg 03/02/18 22:58 Librium - PO 05/06/18 13:17 Q4H PRN WITHDRAWAL(CONT SUBST) Chlordiazepoxide HCl 25 mg 03/03/18 17:00 Librium - PO 03/04/18 11:01 [id number] GONZALEZ Chlordiazepoxide HCl 15 mg 03/04/18 17:00 Librium - PO 03/05/18 11:01 Q6C-DNS GONZALEZ Diphenhydramine HCl 25 mg 03/02/18 15:30 Benadryl Injection - IVPUSH Q8H PRN NAUSEA AND/OR VOMITING Divalproex Sodium 250 mg 03/02/18 22:00 03/03/18 09:19 Depakote - PO 250 mg BID GONZALEZ Administration Folic Acid 1 mg 03/03/18 10:00 03/03/18 09:19 Folic Acid - PO 1 mg DAILY GONZALEZ Administration Dextrose/Sodium Chloride 20 meq in 1,000 mls @ 75 mls/hr 03/02/18 22:58 03/02 23:22 Dextrose 5%-Normal Saline+20 Meq Kcl - IV Not Given ASDIR GONZALEZ Lorazepam 0.5 mg 03/02/18 15:16 03/03/18 04:34 Ativan Injection - IVPUSH 0.5 mg Q4H PRN Administration AGITATION Methadone HCl 40 mg 03/03/18 09:15 03/03/18 09:19 Dolophine - PO 40 mg DAILY@0600 GONZALEZ Administration Pantoprazole Sodium 40 mg 03/02/18 22:00 03/03/18 09:20 Protonix Iv IVPUSH 40 mg BID GONZALEZ Administration Multivit/Folic Acid/Iron 1 tab 03/03/18 10:00 03/03/18 09:20 Vitamins (Sjr) - PO 1 tab DAILY GONZALEZ Administration Thiamine HCl 100 mg 03/02/18 22:00 03/02/18 21:43 Vitamin B1 - PO 100 mg HS GONZALEZ Administration ASSESSMENT/PLAN: The patient is a 47 yo f w/ PMH polysubstance abuse, chronic pancreatitis, HCV and bipolar disorder who is being admitted for intractable nausea and vomiting. #Intractable nausea and vomiting 2/2 ETOH induced gastritis vs acute on chronic pancreatitis vs cyclic vomiting syndrome 2/2 marijuana use -advanced to clear liquid diet today -Protonix 40mg IV BID -Bendadryl and ativan PRN nausea/withdrawal symptoms -Patient allergic to reglan and compazine. With a prolonged QTc, will avoid Zofran. #Prolonged QTc -admission EKG w/ QTc 489, rpt this AM 496 -avoid QT prolonging agents. -Holding home seroquel -Rpt EKG in AM #polysubstance abuse -Banana Bag -Detox consult -began Librium protocol -Thiamine 100mg daily -detox consult -will supplement and replete lytes #Transaminitis likely 2/2 ETOH abuse and HCV -repeat abominal US WNL -transaminitis trending down -offered MRCP to patient. Patient refused knowing the risks of doing so #FEN -banana bag, then D5-NS w/ 20meq KCL @75 -monitor and replete lytes PRN -NPO, will advance as tolerated #PPTX -SCDs -IV protonix 40 BID #Dispo -Admit to tele Visit type - Emergency Visit Emergency Visit: Yes ED Registration Date: 03/02/18 Care time: The patient presented to the Emergency Department on the above date and was hospitalized for further evaluation of their emergent condition. - New Patient This patient is new to me today: No - Critical Care Critical Care patient: No
[2018-03-03] MEDS ORDERED: chlordiazePOXIDE HCL 25 MG CAPSULE PO SCH (17:00)
--- NOTE | 2018-03-03 17:43 | PN ---
Teaching Attending Note Name of Resident: Juan Luis Evans ATTENDING PHYSICIAN STATEMENT I saw and evaluated the patient. I reviewed the resident's note and discussed the case with the resident. I agree with the resident's findings and plan as documented. SUBJECTIVE: no fever or chills, cont to have N/V. SOB when she vomits only. generalized pain including Abd pain OBJECTIVE: NAD. better looking than yesterday MMM CV: RRR, no MRG lungs: CTAB Ext: no edema or erythema. Abd: non distended , non tender. NL BS . ASSESSMENT AND PLAN: 47 y/o lady with h/o ETOH abuse, Opioid abuse on methadone, chronic Hep C, chronic pancreatitis, bipolar disorder , and a recent admission for N/V who presented this time with N/V. 1- Intractable N/V: likely cyclic vomiting syndrome form Marijuana. - IVF with D5 + Kcl - avoid zofran as QTC is prolonged - benadryl and ativan for nausea - PPI - advance to clears today - monitor and replete electrolytes 2- Transaminitis: likely due to alcohol liver toxicity/mild alcoholic hepatitis on back ground of hep C. - monitor levels - US with no pathology and no dialation in biliary tree 3- Dilated pancreatic duct, 2.4 mm on US 02/15. no Pancreatic masses on MRI /17 - refused MRCP 4- Prolonged Qtc . due to methadone and seroquel . - cont ot hold seroquel and will probably not start it at dc - cont methadone - avoid zofran - monitor on tele - EKG this am improved. will check EKG in am 5- ETOH intoxication : - thiamine and folate - librium protocol 6- HTN: BP onlower side . Monitor HLOC
[2018-03-03] MEDS: THIAMINE HCL 100 MG TABLET (FP) PO SCH (21:02)
[2018-03-03] MEDS: D5-NS + 20 MEQ KCL - 20 MEQ/1,000 ML INFUS.BAG IV SCH (22:50)
[2018-03-04] MEDS: chlordiazePOXIDE HCL 25 MG CAPSULE PO SCH ×2 (05:05→11:50)
[2018-03-04] MEDS: METHADONE HCL 40 MG DISPERSABLE TABLET PO SCH (05:56)
[2018-03-04 07:10] LABS: ANION GAP 11 (8-16); BLOOD UREA NITROGEN 6 mg/dL (7-18); CALCIUM 8.2 mg/dL (8.5-10.1); CHLORIDE 106 mmol/L (98-107); CO2 22 mmol/L (21-32); CREATININE 0.8 mg/dL (0.55-1.02); GLUCOSE,RANDOM 96 mg/dL (74-106); MAGNESIUM 1.9 mg/dL (1.8-2.4); PHOSPHOROUS 1.6 mg/dL (2.5-4.9); POTASSIUM 3.4 mmol/L (3.5-5.1); SODIUM 139 mmol/L (136-145)
[2018-03-04] MEDS ORDERED: POTASSIUM CHLORIDE TABS 20 MEQ TABLET.ER (FP) PO ONE (08:45)
[2018-03-04 08:59] LABS: BILIRUBIN,DIRECT 0.4 mg/dL (0.0-0.2); TOT PROT 7.1 g/dl (6.4-8.2)
[2018-03-04] MEDS: DIVALPROEX SODIUM 250 MG TABLET E.C. PO SCH ×2 (09:52→21:04)
[2018-03-04] MEDS ORDERED: PT OWN MED DRAWER 7, Y5N ONE (09:52)
[2018-03-04] MEDS: FOLIC ACID 1 MG TABLET (FP) PO SCH (09:53)
[2018-03-04] MEDS: PANTOPRAZOLE SODIUM 40 MG VIAL IVPUSH SCH ×2 (09:53→21:08)
[2018-03-04] MEDS: PRENATAL VITAMINS W/ FOLIC ACID TABLET (FP) PO SCH (09:53)
[2018-03-04] MEDS ORDERED: NAPH,MB-DB/K PH,MBDB POWDER PACKET PO ONE (09:59)
--- NOTE | 2018-03-04 10:04 | PN ---
Teaching Attending Note Name of Resident: Juan Luis Evans ATTENDING PHYSICIAN STATEMENT I saw and evaluated the patient. I reviewed the resident's note and discussed the case with the resident. I agree with the resident's findings and plan as documented. SUBJECTIVE: no fever or chills . feel better . abd pain is better . has diarrhea. R leg swelling smelly urine OBJECTIVE: NAD. looks better MMM CV: RRR, no MRG lungs: CTAB Ext: edema but no erythema over R medial leg. IV in L dorsal foot with no surrounding erythema Abd: non distended , non tender. NL BS . ASSESSMENT AND PLAN: 47 y/o lady with h/o ETOH abuse, Opioid abuse on methadone, chronic Hep C, chronic pancreatitis, bipolar disorder , and a recent admission for N/V who presented this time with N/V. 1-Cyclic vomiting syndrome. 2/2 marijuana - cont IVF with D5 + Kcl - avoid zofran as QTC is prolonged - benadryl and ativan for nausea - PPI - advance diet as tolerated -replete K, phos - check stool studies and c diff for diarrhea 2- Transaminitis: likely due to alcohol liver toxicity/mild alcoholic hepatitis on back ground of hep C. - improved 3- Dilated pancreatic duct, 2.4 mm on US 02/15. no Pancreatic masses on MRI / - refused MRCP 4- Prolonged Qtc . due to methadone and seroquel . - cont ot hold seroquel and will probably not start it at dc - cont methadone - avoid zofran - monitor on tele - EKG pending 5- ETOH intoxication : - thiamine and folate - librium protocol 6- h/o HTN: BP on lower side . Monitor 7- R leg edema , check US to r/o DVT /superficial phlebitis 8- check UA to r/o UTI due to foul smelling urine HLOC
[2018-03-04] MEDS: NAPH,MB-DB/K PH,MBDB POWDER PACKET PO SCH ×2 (13:30→21:08)
--- NOTE | 2018-03-04 14:32 | EKG ---
Test Reason : Blood Pressure : / mmHG Vent. Rate : 067 BPM Atrial Rate : 067 BPM P-R Int : 128 ms QRS Dur : 090 ms QT Int : 484 ms P-R-T Axes : 071 057 063 degrees QTc Int : 511 ms NORMAL SINUS RHYTHM MINIMAL VOLTAGE CRITERIA FOR LVH, MAY BE NORMAL VARIANT PROLONGED QT ABNORMAL ECG WHEN COMPARED WITH ECG OF 03-MAR-2018 09:08, NO SIGNIFICANT CHANGE WAS FOUND Confirmed by MD Hubert, Hung ([id number]) on 03/04/2018 2:32:23 PM Referred By: Norma PATEL Confirmed By:Hung Gaspar MD
--- NOTE | 2018-03-04 14:38 | EKG ---
Test Reason : Blood Pressure : / mmHG Vent. Rate : 067 BPM Atrial Rate : 067 BPM P-R Int : 132 ms QRS Dur : 088 ms QT Int : 470 ms P-R-T Axes : 065 065 073 degrees QTc Int : 496 ms NORMAL SINUS RHYTHM MINIMAL VOLTAGE CRITERIA FOR LVH, MAY BE NORMAL VARIANT PROLONGED QT ABNORMAL ECG WHEN COMPARED WITH ECG OF 02-MAR-2018 10:43, NO SIGNIFICANT CHANGE WAS FOUND Confirmed by MD Hubert, Hung ([id number]) on 03/04/2018 2:38:07 PM Referred By: MARION JUAREZ Confirmed By:Hung Gaspar MD
--- NOTE | 2018-03-04 16:22 | PN ---
Physical Exam: SUBJECTIVE: Patient seen and examined at bedside. Abdominal pain and vomiting improved today. Patient now complains of foul smelling urine as well as watery diarrhea. OBJECTIVE: Vital Signs Period Temp Pulse Resp BP Sys/Moore Pulse Ox Last 24 Hr 97.4 F-97.8 F 70-86 14-19 92-112/67-92 99-100 GENERAL: The patient is awake, alert, and fully oriented, in mild distress. HEAD: Normal with no signs of trauma. NECK: Trachea midline, full range of motion, supple. LUNGS: Breath sounds equal, clear to auscultation bilaterally, no wheezes, no crackles, no accessory muscle use. HEART: Regular rate and rhythm, S1, S2 without murmur, rub or gallop. ABDOMEN: Soft, nontender, nondistended, normoactive bowel sounds, no guarding, no rebound, no hepatosplenomegaly, no masses. EXTREMITIES: 2+ pulses, warm, well-perfused, there is 1+ edema over the RLE w/o erythema. NEUROLOGICAL: Cranial nerves II through X grossly intact. Normal speech, gait not observed. SKIN: Warm, dry, normal turgor, no rashes or lesions noted Laboratory Results - last 24 hr 03/04/18 03/04/18 06:30 07:45 Sodium 139 Potassium 3.4 L Chloride 106 Carbon Dioxide 22 Anion Gap 11 BUN 6 L Creatinine 0.8 Random Glucose 96 Calcium 8.2 L Phosphorus 1.6 L Magnesium 1.9 Total Bilirubin 1.0 Direct Bilirubin 0.4 H AST 54 H ALT 46 Alkaline Phosphatase 121 H Total Protein 7.1 Albumin 3.0 L Active Medications Generic Name Dose Route Start Last Admin Trade Name Freq PRN Reason Stop Dose Admin Chlordiazepoxide HCl 25 mg 03/02/18 22:58 Librium - PO 03/05/18 13:17 Q4H PRN WITHDRAWAL(CONT SUBST) Chlordiazepoxide HCl 15 mg 03/04/18 17:00 Librium - PO 03/05/18 11:01 [id number] GONZALEZ Chlordiazepoxide HCl 10 mg 03/05/18 17:00 Librium - PO 03/06/18 06:01 Q6HPO GONZALEZ Diphenhydramine HCl 25 mg 03/02/18 15:30 03/04/18 14:39 Benadryl Injection - IVPUSH 25 mg Q8H PRN Administration NAUSEA AND/OR VOMITING Divalproex Sodium 250 mg 03/02/18 22:00 03/04/18 09:52 Depakote - PO 250 mg BID GONZALEZ Administration Folic Acid 1 mg 03/03/18 10:00 03/04/18 09:53 Folic Acid - PO 1 mg DAILY GONZALEZ Administration Dextrose/Sodium Chloride 20 meq in 1,000 mls @ 75 mls/hr 03/02/18 22:58 03/03 22:50 Dextrose 5%-Normal Saline+20 Meq Kcl - IV 75 mls/hr ASDIR GONZALEZ Administration Lorazepam 0.5 mg 03/02/18 15:16 03/03/18 21:08 Ativan Injection - IVPUSH 0.5 mg Q4H PRN Administration AGITATION Methadone HCl 40 mg 03/04/18 06:00 03/04/18 05:56 Dolophine - PO 40 mg DAILY@0600 GONZALEZ Administration Pantoprazole Sodium 40 mg 03/04/18 10:00 03/04/18 09:53 Protonix Iv IVPUSH 40 mg BID GONZALEZ Administration Potassium Phos/Sodium Phos 1 packet 03/04/18 14:00 03/04/18 13:30 Phos-Nak Packet - PO 1 packet TID GONZALEZ Administration Multivit/Folic Acid/Iron 1 tab 03/04/18 10:00 03/04/18 09:53 Vitamins (Sjr) - PO 1 tab DAILY GONZALEZ Administration Thiamine HCl 100 mg 03/04/18 22:00 Vitamin B1 - PO [facility] ASSESSMENT/PLAN: The patient is a 47 yo f w/ PMH polysubstance abuse, chronic pancreatitis, HCV and bipolar disorder who is being admitted for intractable nausea and vomiting. #Intractable nausea and vomiting likely 2/2 cyclic vomiting syndrome 2/2 marijuana use -advanced to regular diet today -Protonix 40mg IV BID -Benadryl and ativan PRN nausea/withdrawal symptoms -Patient allergic to reglan and compazine. With a prolonged QTc, will avoid Zofran. #right leg edema/swelling -US RLE negative for DVT #Diarrhea -ordered stool for c. dif -ordered stool culture #Foul smelling urine -ordered UA #Prolonged QTc -QTc today 511 -avoid QT prolonging agents. -Holding home seroquel #polysubstance abuse -Detox consult -Librium protocol -Thiamine 100mg daily -will supplement and replete lytes #Transaminitis likely 2/2 ETOH abuse and HCV -repeat abominal US WNL -transaminitis trending down -offered MRCP to patient. Patient refused knowing the risks of doing so #FEN -D5-NS w/ 20meq KCL @75 -monitor and replete lytes PRN -NPO, will advance as tolerated #PPTX -SCDs -IV protonix 40 BID #Dispo -Admit to tele Visit type - Emergency Visit Emergency Visit: Yes ED Registration Date: 03/02/18 Care time: The patient presented to the Emergency Department on the above date and was hospitalized for further evaluation of their emergent condition. - New Patient This patient is new to me today: No - Critical Care Critical Care patient: No
[2018-03-04] MEDS ORDERED: chlordiazePOXIDE 5 MG CAPSULE PO SCH (17:00)
[2018-03-04] MEDS: chlordiazePOXIDE 5 MG CAPSULE PO SCH ×2 (17:05→23:43)
[2018-03-04 18:11] LABS: URINE APPEARANCE SLCLOUDY; URINE BILIRUBIN NEGATIVE (<2.0 mg/dL); URINE COLOR YELLOW; URINE GLUCOSE (UA) NEGATIVE (NEGATIVE); URINE KETONE NEGATIVE (NEGATIVE); URINE LEUK ESTERASE 3+ (NEGATIVE); URINE NITRITE POSITIVE (NEGATIVE); URINE PROTEIN NEGATIVE (NEGATIVE); URINE UROBILINOGEN 4.0 E.U/dl mg/dL (0.2-1.0)
[2018-03-04 18:12] LABS: EPI CELLS RARE /HPF (FEW); URINE BACTERIA RARE /hpf (NONE SEEN)
[2018-03-04] MEDS: THIAMINE HCL 100 MG TABLET (FP) PO SCH (21:09)
[2018-03-05] MEDS: chlordiazePOXIDE 5 MG CAPSULE PO SCH ×3 (05:57→23:50)
[2018-03-05] MEDS: NAPH,MB-DB/K PH,MBDB POWDER PACKET PO SCH ×3 (05:58→21:58)
[2018-03-05] MEDS: METHADONE HCL 40 MG DISPERSABLE TABLET PO SCH (05:58)
[2018-03-05] MEDS ORDERED: BENZOCAINE/MENTH/CETYLPYRD CL 1 EACH LOZENGE MM PRN (06:31)
[2018-03-05] MEDS: D5-NS + 20 MEQ KCL - 20 MEQ/1,000 ML INFUS.BAG IV SCH (07:12)
[2018-03-05] MEDS ORDERED: PT OWN MED DRAWER 7, Y5N ONE ×2 (09:08→17:04)
[2018-03-05] MEDS: FOLIC ACID 1 MG TABLET (FP) PO SCH (09:09)
[2018-03-05] MEDS: DIVALPROEX SODIUM 250 MG TABLET E.C. PO SCH ×2 (09:09→21:58)
[2018-03-05] MEDS: PRENATAL VITAMINS W/ FOLIC ACID TABLET (FP) PO SCH (09:09)
--- NOTE | 2018-03-05 10:24 | CONSULT ---
Consult - text type - Consultation Consultation Note: IV access request: Called by primary team to obtain access on pt. Discussed options with pt. Pt had foot IV which was extemely difficult to obtain and has now infiltrated. This script writer attempted bilateral EJ without successs. I discussed central line vs US guided IV. Pt amenable to US IV, did not want central line. Attempted to obtain PICC and or midline, none available in supply. Interventional radiology closed/tuesday. Utilizing sterile technique and US guidance a 20 ga 12cm arterial line cath was placed using modified seldinger technique. This is a temporary line, not to be maintained for > 48hrs, until pt can received longer term access or be d/c home. Primary team to be notified of what was placed [place] [facility] [id number]
[2018-03-05] MEDS: SODIUM CHLORIDE 1,000 ML IV SCH ×2 (11:00→23:52)
[2018-03-05] MEDS: PANTOPRAZOLE SODIUM 40 MG VIAL IVPUSH SCH (13:34)
--- NOTE | 2018-03-05 14:29 | EKG ---
Test Reason : Blood Pressure : / mmHG Vent. Rate : 068 BPM Atrial Rate : 068 BPM P-R Int : 126 ms QRS Dur : 082 ms QT Int : 438 ms P-R-T Axes : 042 043 055 degrees QTc Int : 465 ms NORMAL SINUS RHYTHM MINIMAL VOLTAGE CRITERIA FOR LVH, MAY BE NORMAL VARIANT BORDERLINE ECG WHEN COMPARED WITH ECG OF 04-MAR-2018 08:55, NO SIGNIFICANT CHANGE WAS FOUND Confirmed by MD Hubert, Hung ([id number]) on 03/05/2018 2:28:56 PM Referred By: Missy VERNON Confirmed By:Hung Gaspar MD
--- NOTE | 2018-03-05 15:09 | PN ---
Progress Note (short form) - Note Progress Note: Subjective: no nausea or vomiting. had abd pain last night and requests dilaudid IV. No abd pain today . no dairrhea , feels much better. No dysuria has her period Objective: Vital Signs: Last Vital Signs Temp Pulse Resp BP Pulse Ox 98.1 F 80 18 105/71 100 03/05/18 14:16 03/05/18 14:16 03/05/18 14:16 03/05/18 14:16 03/05/18 08:00 Laboratory Results - last 24 hr 03/04/18 03/05/18 11:00 11:45 Lactic Acid 1.2 Urine Color Yellow Urine Appearance Slcloudy Urine pH 7.0 Ur Specific [place] 1.002 Urine Protein Negative Urine Glucose (UA) Negative Urine Ketones Negative Urine Blood 3+ H Urine Nitrite Positive Urine Bilirubin Negative Urine Urobilinogen 4.0 e.u/dl H Ur Leukocyte Esterase 3+ H Urine WBC (Auto) 12 Urine RBC (Auto) 1 Ur Epithelial Cells Rare Urine Bacteria Rare Physical Exam: NAD. MMM CV: RRR, no MRG lungs: CTAB Ext: edema but no erythema over R medial leg. IV in L dorsal foot with no surrounding erythema Abd: non distended , non tender. NL BS . ASSESSMENT AND PLAN: 47 y/o lady with h/o ETOH abuse, Opioid abuse on methadone, chronic Hep C, chronic pancreatitis, bipolar disorder , and a recent admission for N/V who presented this time with N/V. 1-Cyclic vomiting syndrome. 2/2 marijuana . much improved - change IVF to NS - avoid zofran as QTC is prolonged - dc benadryl and ativan as nausea resolved - switch to po PPI -repeat electrolytes 2- Transaminitis: likely due to alcohol liver toxicity/mild alcoholic hepatitis on back ground of hep C. - improved 3- Dilated pancreatic duct, 2.4 mm on US 02/15. no Pancreatic masses on MRI /17 - refused MRCP 4- Prolonged Qtc . due to methadone and seroquel . - cont ot hold seroquel and will probably not start it at dc - cont methadone - avoid zofran - QTC today 465. stable 5- ETOH intoxication : - thiamine and folate - librium protocol to finish tomorrow 6- h/o HTN: hypotensive with sBP 83 this am. changes IVF to NS at higher rate . lactic nl 7- R leg edema , NO DVT . IV line removed IV access obtained with A line due to need for IV hydration . will remove tomorrow hopefully possible dc tomorrow after finishing librium detox Visit type - Emergency Visit Emergency Visit: Yes ED Registration Date: 03/02/18 Care time: The patient presented to the Emergency Department on the above date and was hospitalized for further evaluation of their emergent condition. - New Patient This patient is new to me today: No - Critical Care Critical Care patient: No
[2018-03-05 16:09] LABS: MAGNESIUM 1.6 mg/dL (1.8-2.4); PHOSPHOROUS 2.8 mg/dL (2.5-4.9); POTASSIUM 4.4 mmol/L (3.5-5.1)
[2018-03-05] MEDS ORDERED: chlordiazePOXIDE 5 MG CAPSULE PO SCH (17:00)
[2018-03-05] MEDS ORDERED: MAGNESIUM SULF 50% (8.12 MEQ/2 ML-1 GM VIAL) IVPB ONE (19:49)
[2018-03-05] MEDS ORDERED: diphenhydrAMINE HCL 25 MG CAPSULE (FP) PO ONE (20:00)
[2018-03-05] MEDS ORDERED: MAGNESIUM 1GM/D5W - 1 GM/100 ML IVPB IVPB ONE (20:00)
[2018-03-05] MEDS ORDERED: MAGNESIUM SULF 50% (8.12 MEQ/2 ML-1 GM VIAL) ONE (20:51)
[2018-03-05] MEDS: THIAMINE HCL 100 MG TABLET (FP) PO SCH (21:58)
[2018-03-06] MEDS ORDERED: PT OWN MED DRAWER 7, Y5N ONE ×2 (02:30→10:03)
[2018-03-06] MEDS: NAPH,MB-DB/K PH,MBDB POWDER PACKET PO SCH (05:55)
[2018-03-06] MEDS: chlordiazePOXIDE 5 MG CAPSULE PO SCH ×2 (05:56→11:05)
[2018-03-06] MEDS: METHADONE HCL 40 MG DISPERSABLE TABLET PO SCH (05:56)
[2018-03-06 08:55] LABS: MAGNESIUM 1.9 mg/dL (1.8-2.4); PHOSPHOROUS 3.3 mg/dL (2.5-4.9); POTASSIUM 4.4 mmol/L (3.5-5.1)
--- NOTE | 2018-03-06 09:27 | PN ---
Physical Exam: SUBJECTIVE: Patient seen and examined at bedside. No acute events overnight. As per nursing, pt uncooperative and almost fell. Today, pt states that she no longer has nausea or emesis, feels well and is "ready to go home." She requests psychiatric and primary referral upon d/c in [place]. In AM, pt still with a- line RUE, however removed ~12noon. no longer with IV in L foot. Denies SHOOK, fever , chills, SOB, chest pain, or changes in urinary or bowel function. OBJECTIVE: Vital Signs Period Temp Pulse Resp BP Sys/Moore Pulse Ox Last 24 Hr 97.9 F-98.3 F 76-94 17-20 95-152/67-93 100 GENERAL: Anxious female, sitting in chair. AAOx3, in no acute distress. HEAD: Normal with no signs of trauma. EYES: PERRL, extraocular movements intact, sclera anicteric, conjunctiva clear. No ptosis. ENT: Ears normal, nares patent, oropharynx clear without exudates, moist mucous membranes. NECK: Trachea midline, supple. LUNGS: Breath sounds equal, clear to auscultation bilaterally, no wheezes, no crackles, no accessory muscle use. HEART: Regular rate and rhythm, S1, S2 without murmur, rub or gallop. ABDOMEN: Soft, nontender, nondistended, normoactive bowel sounds, no guarding, no rebound, no masses. EXTREMITIES: 2+ posterior tibial pulses, warm, no edema. RLE- diffusely tender to palpation (chronic as per pt) NEUROLOGICAL: Cranial nerves II through XII grossly intact. Normal speech and gait. PSYCH: Anxious SKIN: Warm, dry, normal turgor, no rashes or lesions noted Laboratory Results - last 24 hr 03/05/18 03/05/18 03/06/18 11:45 15:15 08:15 Potassium 4.4 4.4 Lactic Acid 1.2 Phosphorus 2.8 3.3 Magnesium 1.6 L 1.9 Active Medications Generic Name Dose Route Start Last Admin Trade Name Freq PRN Reason Stop Dose Admin Benzocaine/Menthol 1 each 03/05/18 06:31 03/06/18 02:31 Cepacol Lozenge - MM 1 each PRN PRN Administration SORE THROAT Chlordiazepoxide HCl 10 mg 03/06/18 00:00 03/06/18 05:56 Librium - PO 03/06/18 12:01 10 mg Q6HPO GONZALEZ Administration Divalproex Sodium 250 mg 03/02/18 22:00 03/05/18 21:58 Depakote - PO 250 mg BID GONZALEZ Administration Folic Acid 1 mg 03/03/18 10:00 03/05/18 09:09 Folic Acid - PO 1 mg DAILY GONZALEZ Administration Sodium Chloride 1,000 mls @ 100 mls/hr 03/05/18 11:00 03/05/18 23:52 Normal Saline - IV 100 mls/hr ASDIR GONZALEZ Administration Methadone HCl 40 mg 03/04/18 06:00 03/06/18 05:56 Dolophine - PO 40 mg DAILY@0600 GONZALEZ Administration Pantoprazole Sodium 40 mg 03/06/18 10:00 Protonix - PO DAILY GONZALEZ Potassium Phos/Sodium Phos 1 packet 03/04/18 14:00 03/06/18 05:55 Phos-Nak Packet - PO 1 packet TID GONZALEZ Administration Multivit/Folic Acid/Iron 1 tab 03/04/18 10:00 03/05/18 09:09 Vitamins (Sjr) - PO 1 tab DAILY GONZALEZ Administration Thiamine HCl 100 mg 03/04/18 22:00 03/05/18 21:58 Vitamin B1 - PO 100 mg HS GONZALEZ Administration ASSESSMENT/PLAN: 47 y/o F with PMH EtOH abuse, polysubstance abuse (on methadone), chronic Hep C , chronic pancreatitis, bipolar disorder, past admission N/V (d/c 02/06 likely 2/ 2 alcohol withdrawal), who presented to the ED c/o abdominal pain and N/V for two days. Pt admitted for intractable N/V likely 2/2 acute viral gastroenteritis or cyclical vomiting syndrome 2/2 marijuana use. #Intractable N/V likely 2/2 acute viral gastroenteritis or cyclical vomiting 2/ 2 marijuana use - resolved -Pt no longer c/o nausea or emesis, feeling well clinically -Tolerating regular diet #Diarrhea- resolved -Pt no longer c/o loose BM #Transaminitis-likely 2/2 alcoholic liver toxicity, chronic hep C- resolved -last set of labs: AST 54, ALT 46 (03/04/18) #Dilated pancreatic duct, 2.4 mm on US 02/15 -refused MRCP #Prolonged Qtc -Holding seroquel and trazodone on d/c, pt recommended f/u with primary care to further discuss -continue methadone 40mg PO qd #EtOH intoxication- resolved -pt to continue thiamine, folic through OTC vitamins -Completed librium protocol today -Can discuss outpt/inpt rehab with primary care #RLE edema- resolved -US (-) for DVT #Foul smelling urine - resolved -Pt asymptomatic without abdominal pain or dysuria - though UA leuk esterase 3+ , 12 WBC -no need to tx at this time #F/E/N -a-line removed today, prior to d/c -regular diet #dispo discharged home, with f/u psychiatry - Dr. Simental, [facility]- primary care. 1 wk Visit type - Emergency Visit Emergency Visit: No - New Patient This patient is new to me today: Yes Date on this admission: 03/06/18 - Critical Care Critical Care patient: No
[2018-03-06] MEDS ORDERED: PANTOPRAZOLE 40 MG TABLET (FP) PO SCH (10:00)
[2018-03-06] MEDS: PRENATAL VITAMINS W/ FOLIC ACID TABLET (FP) PO SCH (10:05)
[2018-03-06] MEDS: FOLIC ACID 1 MG TABLET (FP) PO SCH (10:05)
[2018-03-06] MEDS: DIVALPROEX SODIUM 250 MG TABLET E.C. PO SCH (10:05)
[2018-03-06] MEDS: SODIUM CHLORIDE 1,000 ML IV SCH (11:05)
[2018-03-06 12:32] VITALS: BP 108/80; PULSE 88; TEMP 98.4
--- NOTE | 2018-03-06 13:14 | PN ---
Teaching Attending Note Name of Resident: Scarlett Almeida ATTENDING PHYSICIAN STATEMENT I saw and evaluated the patient. I reviewed the resident's note and discussed the case with the resident. I agree with the resident's findings and plan as documented. SUBJECTIVE: no apin, no N/V. no fever or chills . no diarrhea . feels at base line and wants to go home OBJECTIVE: NAD. MMM CV: RRR, no MRG lungs: CTAB Ext: edema and tenderenss over L dorsal foot IV site with no other abnormality Abd: non distended , non tender. NL BS . ASSESSMENT AND PLAN: 47 y/o lady with h/o ETOH abuse, Opioid abuse on methadone, chronic Hep C, chronic pancreatitis, bipolar disorder , and a recent admission for N/V who presented this time with N/V. 1-Cyclic vomiting syndrome. 2/2 marijuana .resolved 2- Transaminitis: likely due to alcohol liver toxicity/mild alcoholic hepatitis on back ground of hep C. - improved 3- Dilated pancreatic duct, 2.4 mm on US 02/15. no Pancreatic masses on MRI / - refused MRCP 4- Prolonged QTc . seroquel and trazodone was held and tolerated. will not resume seroquel and trazodone at dc. clear instructions were given to her. - cont to hold seroquel and will probably not start it at dc - cont methadone 5- ETOH intoxication : - thiamine and folate - finished detox today DC home . given referral to resident clinic and psych as per her request
--- NOTE | 2018-03-06 19:27 | DS ---
Physical Exam: SUBJECTIVE: Patient seen and examined at bedside. No acute events overnight. As per nursing, pt uncooperative and almost fell. Today, pt states that she no longer has nausea or emesis, feels well and is "ready to go home." She requests psychiatric and primary referral upon d/c in [place]. In AM, pt still with a- line RUE, however removed ~12noon. no longer with IV in L foot. Denies SHOOK, fever , chills, SOB, chest pain, or changes in urinary or bowel function. OBJECTIVE: Vital Signs Period Temp Pulse Resp BP Sys/Moore Pulse Ox Last 24 Hr 98 F-98.4 F 76-94 17-20 95-122/67-83 100-100 PHYSICAL EXAM GENERAL: Anxious female, sitting in chair. AAOx3, in no acute distress. HEAD: Normal with no signs of trauma. EYES: PERRL, extraocular movements intact, sclera anicteric, conjunctiva clear. No ptosis. ENT: Ears normal, nares patent, oropharynx clear without exudates, moist mucous membranes. NECK: Trachea midline, supple. LUNGS: Breath sounds equal, clear to auscultation bilaterally, no wheezes, no crackles, no accessory muscle use. HEART: Regular rate and rhythm, S1, S2 without murmur, rub or gallop. ABDOMEN: Soft, nontender, nondistended, normoactive bowel sounds, no guarding, no rebound, no masses. EXTREMITIES: 2+ posterior tibial pulses, warm, no edema. RLE- diffusely tender to palpation (chronic as per pt) NEUROLOGICAL: Cranial nerves II through XII grossly intact. Normal speech and gait. PSYCH: Anxious SKIN: Warm, dry, normal turgor, no rashes or lesions noted LABS Laboratory Results 03/02/18 03/02/18 08:24 09:10 WBC 5.6 D Hgb 12.9 D Hct 37.4 MCV 99.7 H Plt Count 119 L ALT Methadone Screen Positive U Marijuana (THC) Screen Positive 03/02/18 03/03/18 03/03/18 14:56 05:49 05:49 WBC 8.7 D Hgb 14.6 D Hct 42.4 MCV 100.2 H Plt Count 148 D Potassium 3.5 Creatinine 0.7 Phosphorus 2.7 2.5 Magnesium 1.4 L 2.2 Total Bilirubin AST 66 H U Marijuana (THC) Screen 03/04/18 03/04/18 06:30 07:45 WBC Sodium 139 Potassium 3.4 L Creatinine 0.8 Phosphorus 1.6 L Magnesium 1.9 AST 54 H Microbiology -03/04/18: UCx - pending Radiology -03/02/18: Abdomen US: GB normal in size without evidence of intra or extrahepatic biliary duct dilation. CBD measures 5mm. Follow up MRCP examination may be warranted, if further evaluation of biliary tree indicated. Main pancreatic duct is not significantly dilated measuring 2mm. -03/04/18: B/l vascular study: (-) for DVT HOSPITAL COURSE: Date of Admission:03/02/18 Date of Discharge: 03/06/18 Admission dx: cyclical vomiting syndrome 2/2 chronic marijuana use This is a 47 y/o F with PMH of ETOH and opiate abuse currently on methadone, also with hx of HTN, chronic Hepatitis C, and chronic pancreatitis, consistent marijuana use, who presented to the ED c/o abdominal pain and emesis for one day. Pt's pain in her epigastric region began after she drank vodka, 10/10 in intensity, radiating to back, constant and was a/w numerous episodes of NBNB emesis. She was admitted for cyclical vomiting syndrome 2/2 chronic marijuana use. While in the hospital, pt's emesis was treated supportively with IVF and a PPI ( protonix IV to PO), as well as benadryl and ativan. During this time, she was also found to have transaminitis, likely from chronic alcohol intake and completed a librium protocol. Upon last admission (02/15/18) for similar complaint of emesis, pt had an abdominal sono done which revealed a dilated pancreatic duct of 2.4mm and was recommended follow-up with subsequent MRI, however pt refused during past and current admission. Concerning her EKG, she had a prolonged Qtc likely from methadone and seroquel, and was recommended to stop seroquel and trazodone upon discharge. She was also given psychiatric and primary care follow-up based on her request. Minutes to complete discharge: 32 Discharge Summary Reason For Visit: VOMITING Condition: Improved - Instructions Diet, Activity, Other Instructions: You were recently in the hospital for nausea and vomiting. This was likely from a virus or from a vomiting issue that may have been from chronic marijuana use. We recommend that you cut back on marijuana, as this may benefit your health. While you were in the hospital, you also were on a protocol for alcohol withdrawal which you completed. You may continue your home medications, however please do not continue to take the medications seroquel and trazodone as they can cause an arrhythmia. Please discuss with your primary care doctor. We recommend that you follow up with a [facility] clinic ([address] [place] [address]. Phone #: ) in one week to discuss your visit, and a psychiatrist, Dr. Simental within one week upon your request. We also suggest that you talk to your primary care doctor about an inpatient or outpatient rehab program. If you develop chest pain, shortness of breath, develop tremors, or severe nausea or vomiting, please go to the hospital. We hope you feel better soon. Referrals: Michael Hernandez MD [Staff Physician] - 1 Week Carissa Walden MD [Staff Physician] - 1 Week Disposition: HOME - Home Medications Comprehensive Discharge Medication List: Ambulatory Orders Pantoprazole Sodium [Protonix] 40 mg PO BID #60 tablet. 01/04/18 Divalproex Sodium [Depakote] 250 mg PO BID #60 tablet. 02/06/18 Gabapentin 100 mg PO TID #90 capsule 02/06/18 Methadone [Dolophine -] 40 mg PO DAILY@0600 #0 tablet MDD 1 02/06/18 Folic Acid - 1 mg PO DAILY tablet 03/06/18 Vitamins (Sjr) - 1 tab PO DAILY tablet 03/06/18 Thiamine HCl [Vitamin B1 -] 100 mg PO HS tablet 03/06/18 This patient is new to me today: Yes Date on this admission: 03/06/18 Emergency Visit: No Critical Care patient: No - Discharge Referral Referred to [facility] No
== END 2018-03-06 12:27 | disposition home or self-care (01) | DRG 54 ==
LOC: JER 07:55 → JERBED 12:53 → OBSVTOIN 16:12 → J2W 17:15
PROVIDERS: ADMIT Internal Medicine; ATTEND Internal Medicine
DX: G43.A0 Cyclical vomiting, in migraine, not intractable (principal); F11.20 Opioid dependence, uncomplicated; F14.20 Cocaine dependence, uncomplicated; K86.89 Other specified diseases of pancreas; F17.210 Nicotine dependence, cigarettes, uncomplicated; F12.10 Cannabis abuse, uncomplicated; R74.0 Nonspecific elevation of levels of transaminase and lactic acid dehydrogenase [LDH]; I45.81 Long QT syndrome; B19.20 Unspecified viral hepatitis C without hepatic coma; I10 Essential (primary) hypertension; F31.9 Bipolar disorder, unspecified; B18.2 Chronic viral hepatitis C; T40.7X5A Adverse effect of cannabis (derivatives), initial encounter; F10.220 Alcohol dependence with intoxication, uncomplicated; R19.7 Diarrhea, unspecified
CPT/HCPCS: 36415; 76700-TC; 80048; 80053; 80076; 80307; 81003; 81015; 83605; 83690; 83735; 84100; 84132; 84703; 85025; 85027; 85610; 87086; 87186; 93005; 93010; 93971-TC; 99284-25; G0378; J7030

== ENCOUNTER 2018-04-02 08:38 | Observation (INO) | payer OTHER ==
--- NOTE | 2018-04-02 08:50 | PDOC ---
History of Present Illness <Kasey Talbert - Last Filed: 04/02/18 15:17> - History of Present Illness Initial Comments: Patient is a 47 year old female with a PMH of ETOH and opiate abuse currently on methadone, HTN, Hepatitis C, pancreatitis, who presents to the emergency department complaining of epigastric pain, N/V and diarrhea. Pt states that she drank a 1/5 of vodka yesterday, in addition to smoking marijuana and later endorses onset of burning epigastric pain with radiation to BL mid-back. Pt also endorses 7-8 episodes NBNB emesis and NB diarrhea, which persisted this AM. Pt also endorses intermittent chills. Pt most recently here one month ago for similar symptoms. Pt denies any sick contacts, recent travel, dietary changes. patient denies chest pain, shortness of breath, headache or dizziness. Denies fever and constipation. Denies dysuria, frequency, urgency and hematuria. Past surgical history: C-sections 2x Social History: Active smoker. Smokes 3 cigs per day. Drinks approx 1/5 vodka every day. daily marijuana use PMD: Dr. Benja Goins Allergies: Allergies Allergy/AdvReac Type Severity Reaction Status Date / Time metoclopramide HCl Allergy Severe dystonic Verified 03/02/18 08:04 [From Reglan] reaction prochlorperazine maleate Allergy Severe DYSTONIA Verified 03/02/18 08:04 [From Compazine] haloperidol [From Haldol] Allergy Verified 03/02/18 12:40 04/02/18 08:49 <Juliano Morton - Last Filed: 04/02/18 15:21> - General Stated Complaint: NAUSEA VOMITING Past History <Kasey Talbert - Last Filed: 04/02/18 15:17> - Past Medical History Anemia: No Asthma: No Cancer: No Cardiac Disorders: No CVA: No COPD: No CHF: No Dementia: No Diabetes: No GI Disorders: Yes (pancreatitis, GERD) Disorders: No HTN: Yes Hypercholesterolemia: No Kidney Stones: No Liver Disease: Yes (hepatitis) Psychiatric Problems: Yes (bipolar) Seizures: No Thyroid Disease: No - Surgical History Abdominal Surgery: No Appendectomy: No Cardiac Surgery: No Cholecystectomy: No Lung Surgery: No Neurologic Surgery: No Orthopedic Surgery: No - Reproductive History (#): 13 Para: 11 PID: No - Immunization History Immunization Up to Date: No - Suicide/Smoking/Psychosocial Hx Smoking History: Current every day smoker Have you smoked in the past 12 months: No Number of Cigarettes Smoked Daily: 3 Cigars Per Day: 0 'Breaking Loose' booklet given: 01/11/18 Hx Alcohol Use: No Drug/Substance Use Hx: No Substance Use Type: Alcohol, Marijuana Hx Substance Use Treatment: Yes ([facility]) <Juliano Morton - Last Filed: 04/02/18 15:21> - Past Medical History Allergies/Adverse Reactions: Allergies Allergy/AdvReac Type Severity Reaction Status Date / Time metoclopramide HCl Allergy Severe dystonic Verified 03/02/18 08:04 [From Reglan] reaction prochlorperazine maleate Allergy Severe DYSTONIA Verified 03/02/18 08:04 [From Compazine] haloperidol [From Haldol] Allergy Verified 03/02/18 12:40 Home Medications: Ambulatory Orders Pantoprazole Sodium [Protonix] 40 mg PO BID #60 tablet. 01/04/18 Divalproex Sodium [Depakote] 250 mg PO BID #60 tablet. 02/06/18 Gabapentin 100 mg PO TID #90 capsule 02/06/18 Methadone [Dolophine -] 40 mg PO DAILY@0600 #0 tablet MDD 1 02/06/18 Folic Acid - 1 mg PO DAILY tablet 03/06/18 Vitamins (Sjr) - 1 tab PO DAILY tablet 03/06/18 Thiamine HCl [Vitamin B1 -] 100 mg PO HS tablet 03/06/18 Review of Systems - Review of Systems Comments:: GENERAL/CONSTITUTIONAL: +chills; No fever; No weakness. HEAD, EYES, EARS, NOSE AND THROAT: No change in vision. No ear pain or discharge. No sore throat. CARDIOVASCULAR: No chest pain or shortness of breath RESPIRATORY: No cough, wheezing, or hemoptysis. GASTROINTESTINAL: + NBNB nausea, vomiting and diarrhea; no constipation. GENITOURINARY: No dysuria, frequency, or change in urination. MUSCULOSKELETAL: No joint or muscle swelling or pain. No neck or back pain. SKIN: No rash NEUROLOGIC: No headache, vertigo, loss of consciousness, or change in strength/ sensation. ENDOCRINE: No increased thirst. No abnormal weight change HEMATOLOGIC/LYMPHATIC: No anemia, easy bleeding, or history of blood clots. ALLERGIC/IMMUNOLOGIC: No hives or skin allergy. 04/02/18 08:50 <Juliano Morton - Last Filed: 04/02/18 15:21> *Physical Exam - Vital Signs Last Vital Signs Temp Pulse Resp BP Pulse Ox 98.6 F 92 H 20 144/109 97 04/02/18 08:49 04/02/18 14:05 04/02/18 08:49 04/02/18 14:05 04/02/18 14:05 <Kasey Talbert - Last Filed: 04/02/18 15:17> - Physical Exam Comments: GENERAL: MA woman, Awake, alert, and fully oriented, in mild distress, actively vomiting HEAD: No signs of trauma, normocephalic, atraumatic EYES: PERRLA, EOMI, sclera anicteric, conjunctiva clear ENT: Poor dentition. Auricles normal inspection, hearing grossly normal, nares patent, oropharynx clear without exudates. Moist mucosa NECK: Normal ROM, supple, no lymphadenopathy, JVD, or masses LUNGS: No distress, speaks full sentences, clear to auscultation bilaterally HEART: Regular rate and rhythm, normal S1 and S2, no murmurs, rubs or gallops, peripheral pulses normal and equal bilaterally. ABDOMEN: TTP in epigastric region. Soft, normoactive bowel sounds. No guarding , no rebound. No masses EXTREMITIES : Normal inspection, Normal range of motion, no edema. No clubbing or cyanosis. NEUROLOGICAL: Cranial nerves II through XII grossly intact. Normal speech, normal gait, no focal sensorimotor deficits SKIN: Warm, Dry, normal turgor, no rashes or lesions noted 04/02/18 08:50 <Juliano Morton - Last Filed: 04/02/18 15:21> ED Treatment Course - LABORATORY CBC & Chemistry Diagram: 04/02/18 08:45 04/02/18 08:45 - ADDITIONAL ORDERS Additional order review: Laboratory Results 04/02/18 04/02/18 11:50 08:45 Sodium 136 Potassium 4.0 Chloride 103 Carbon Dioxide 23 Anion Gap 10 BUN 10 Creatinine 0.7 Creat Clearance w eGFR > 60 Random Glucose 181 H Calcium 8.5 Total Bilirubin 0.7 D AST 65 H ALT 40 Alkaline Phosphatase 106 Total Protein 8.1 Albumin 3.6 Lipase 229 Beta HCG, Quant < 1.0 Opiates Screen Negative Methadone Screen Positive Barbiturate Screen Negative Phencyclidine Screen Negative Ur Amphetamines Screen Negative MDMA (Ecstasy) Screen Negative Benzodiazepines Screen Negative Cocaine Screen Negative U Marijuana (THC) Screen Positive Alcohol, Quantitative < 5.0 04/02/18 08:45 RBC 4.12 MCV 100.2 H MCHC 33.9 RDW 14.2 D MPV 10.5 Neutrophils % 74.7 Lymphocytes % 20.8 Monocytes % 3.5 L Eosinophils % 0.3 Basophils % 0.7 - Medications Given in the ED: ED Medications Discontinued Medications Generic Name Dose Route Start Last Admin Trade Name Freq PRN Reason Stop Dose Admin Ketorolac Tromethamine 30 mg 04/02/18 12:06 04/02/18 12:07 Toradol Injection - IM 04/02/18 12:07 30 mg ONCE ONE Administration Ketorolac Tromethamine 30 mg 04/02/18 12:08 04/02/18 12:09 Toradol Injection - IVPUSH 04/02/18 12:09 30 mg ONCE ONE Administration Lorazepam 0.5 mg 04/02/18 14:20 04/02/18 14:33 Ativan Injection - IM 04/02/18 14:21 0.5 mg ONCE ONE Administration Ondansetron HCl 4 mg 04/02/18 09:05 04/02/18 09:10 Zofran Injection IVPUSH 04/02/18 09:06 4 mg ONCE ONE Administration Ondansetron HCl 4 mg 04/02/18 10:47 04/02/18 10:52 Zofran Injection IVPUSH 04/02/18 10:48 4 mg ONCE ONE Administration Ondansetron HCl 4 mg 04/02/18 13:32 04/02/18 13:35 Zofran Injection IVPUSH 04/02/18 13:33 4 mg ONCE ONE Administration Ondansetron HCl 4 mg 04/02/18 14:20 04/02/18 14:33 Zofran Odt - SL 04/02/18 14:21 4 mg ONCE ONE Administration Sodium Chloride 1,000 ml 04/02/18 09:05 04/02/18 09:10 Normal Saline - IV 04/02/18 09:06 1,000 ml ONCE ONE Administration <Kasey Talbert - Last Filed: 04/02/18 15:17> - LABORATORY CBC & Chemistry Diagram: 04/02/18 08:45 04/02/18 08:45 <Juliano Morton - Last Filed: 04/02/18 15:21> Medical Decision Making - Medical Decision Making Patient is a 47 year old female with a PMH of ETOH and opiate abuse currently on methadone, HTN, Hepatitis C, pancreatitis, who presents to the emergency department complaining of epigastric pain, N/V and diarrhea. DDX includes pancreatitis, marijuana abuse, acute gastritis, PUD, gastroenteritis, methadone withdrawal, acute alcohol intoxication. Plan: - cbc, cmp, lipase - IVFs - EKG - IV zofran - Possible referral for inpatient detox 04/02/18 10:49 CBC, lipase, vitals normal. Pt symptoms improved with zofran x3, toradol IV. Will transfer pt to [facility] for detox if pt amenable. 04/02/18 13:21 Pt still w/ persistent vomiting despite multiple rounds of IV zofran. Will obs patient to hospital groups. Discussed case with Dr. Case, admission order placed. 04/02/18 15:20 <Juliano Morton - Last Filed: 04/02/18 15:21> *DC/Admit/Observation/Transfer - Discharge Dispostion Decision to Admit order: Yes <Kasey Talbert - Last Filed: 04/02/18 15:17> - Discharge Dispostion Decision to Admit order: No <Juliano Morton - Last Filed: 04/02/18 15:21> Diagnosis at time of Disposition: Methadone withdrawal Intractable vomiting Qualifiers: Nausea presence: with nausea - Discharge Dispostion Disposition: HOME Condition at time of disposition: Good - Referrals Referrals: Benja Goins MD [Primary Care Provider] - 1 week - Patient Instructions Printed Discharge Instructions: DI for Alcohol Abuse, DI for Drug Withdrawal Additional Instructions: During your visit to the [facility] ED, you were evaluated for abdominal pain, nausea and vomiting. You received hydration and standard lab tests, which were relatively unremarkable. You are being discharged home with outpatient follow- up with your primary care provider and being transferred to [facility] for acute alcohol and methadone detox. If you experience any of the following symptoms, please return to the ED: - Persistent fevers/chills >3 days - Blood in your stool, persistent diarrhea, persistent nausea and vomiting - Changes in vision, numbness/weakness in any extremities, or persistent dizziness/loss of consciousness - Any new or concerning symptoms - Post Discharge Activity
[2018-04-02] MEDS ORDERED: ONDANSETRON 4 MG/2 ML VIAL IVPUSH ONE ×4 (09:05→17:33)
[2018-04-02] MEDS ORDERED: SODIUM CHLORIDE 0.9% 1000 ML INFUS.BAG IV ONE (09:05)
[2018-04-02] MEDS ORDERED: ONDANSETRON *ODT* 4 MG TABLET ONE ×2 (09:40→14:28)
[2018-04-02 10:06] LABS: BASO % 0.7 % (0-2.0); EOS % 0.3 % (0-4.5); HEMATOCRIT 41.2 % (32.4-45.2); LYMPH % 20.8 % (8-40); MCH 33.9 pg (25.7-33.7); MCHC 33.9 g/dl (32.0-36.0); MEAN CELL VOLUME 100.2 fl (80-96); MEAN PLT VOLUME 10.5 fl (7.5-11.1); MONO % 3.5 % (3.8-10.2); NEUT % 74.7 % (42.8-82.8); PLATELET COUNT 142 K/MM3 (134-434); RBC 4.12 M/mm3 (3.60-5.2); RDW 14.2 % (11.6-15.6); WHITE BLOOD COUNT 6.8 K/mm3 (4.0-10.0)
[2018-04-02 10:23] LABS: ALBUMIN 3.6 g/dl (3.4-5.0); ANION GAP 10 (8-16); BILIRUBIN,TOTAL 0.7 mg/dL (0.2-1.0); BLOOD UREA NITROGEN 10 mg/dL (7-18); CALCIUM 8.5 mg/dL (8.5-10.1); CHLORIDE 103 mmol/L (98-107); CO2 23 mmol/L (21-32); CREATININE 0.7 mg/dL (0.55-1.02); GLUCOSE,RANDOM 181 mg/dL (74-106); SGOT/AST 65 U/L (15-37); SGPT/ALT 40 U/L (12-78); SODIUM 136 mmol/L (136-145); TOT PROT 8.1 g/dl (6.4-8.2)
[2018-04-02 10:24] LABS: ALK PHOS 106 U/L (45-117)
[2018-04-02 10:27] LABS: LIPASE 229 U/L (73-393)
--- NOTE | 2018-04-02 10:33 | PDOC ---
Attending Attestation - Resident Resident Name: Juliano Morton - ED Attending Attestation I have performed the following: I have examined & evaluated the patient, The case was reviewed & discussed with the resident, I agree w/resident's findings & plan, Exceptions are as noted - HPI HPI: 04/02/18 10:10 47-year-old female history of polysubstance abuse here today complaining of intoxication from alcohol has been binging recently on liquor daily states she did not get her methadone today and is now complaining of nausea vomiting abdominal pain and diarrhea. Patient states she has not used heroin in over a month no fevers chills no chest pain or shortness of breath no moderating factors denies history of severe alcohol withdrawal such as DVTs or hallucinations no history of seizures - Physicial Exam PE: 04/02/18 10:33 Awake alert no acute distress dry mucous membranes lungs clear bilaterally heart is regular without any murmurs rubs or gallops abdomen is soft mild epigastric guarding extremities are warm well perfused neurologically patient is alert and oriented 3 loose all 4 extremities - Medical Decision Making 04/02/18 10:33 47-year-old history of polysubstance abuse with nausea vomiting likely secondary to methadone withdrawal and alcohol intoxication. Plan rule out pancreatitis, gastritis, electrolyte abnormality, renal failure, plan CBC CMP lipase IV fluids antiemetics and a drug screen with alcohol levels possibly offer patient detox at [facility] once she is stabilized Heart Score/ECG Review #1 General ECG Interpretation: Sinus Rhythm, Normal Rate (60), Normal Intervals, No acute ischemic changes
[2018-04-02] MEDS ORDERED: KETOROLAC TROMETHAMINE 30 MG/1 ML VIAL ONE (12:04)
[2018-04-02] MEDS ORDERED: KETOROLAC TROMETHAMINE 30 MG/1 ML VIAL IM ONE (12:06)
[2018-04-02] MEDS ORDERED: KETOROLAC TROMETHAMINE 30 MG/1 ML VIAL IVPUSH ONE (12:08)
[2018-04-02 12:12] LABS: COCAINE, UR NEGATIVE ng/ml (CUTOFF=300); OPIATES, URI NEGATIVE ng/ml (CUTOFF=300); PHENCYCLIDINE,URINE NEGATIVE ng/ml (CUTOFF=25); URINE AMPHETAMINES NEGATIVE ng/ml (CUTOFF=500); URINE BARBITURATES NEGATIVE ng/ml (CUTOFF=200); URINE BENZODIAZEPINES NEGATIVE ng/ml (CUTOFF=200)
[2018-04-02 12:13] LABS: METHADONE, UR POSITIVE ng/ml (CUTOFF=300)
[2018-04-02] MEDS ORDERED: METOCLOPRAMIDE HCL INJECTION 10 MG/2 ML VIAL ONE (13:30)
[2018-04-02] MEDS ORDERED: ONDANSETRON 4 MG/2 ML VIAL ONE (13:32)
[2018-04-02] MEDS ORDERED: ONDANSETRON *ODT* 4 MG TABLET SL ONE (14:20)
[2018-04-02] MEDS ORDERED: LORazepam 2 MG/ML SDV VIAL ONE (14:27)
[2018-04-02] MEDS ORDERED: FAMOTIDINE 20 MG/50 ML IVPB 20 MG/50 ML MG IVPB ONE ×2 (15:15→15:29)
[2018-04-02] MEDS ORDERED: PROCHLORPERAZINE INJECTION 10 MG/2 ML VIAL ONE (17:30)
[2018-04-02] MEDS ORDERED: ONDANSETRON 4 MG/2 ML VIAL IVPUSH PRN (18:06)
[2018-04-02] MEDS ORDERED: FOLIC ACID INJECTION - 1 MG, THIAMINE HCL 100 MG, MULTIVIT INJECTION ADULT 10 ML in SOD... IVPB ONE (18:11)
--- NOTE | 2018-04-02 18:23 | HP ---
CHIEF COMPLAINT:epigastric pain, nausea and vomiting PCP:none HISTORY OF PRESENT ILLNESS: 47yo F wtih PMH continuous polysubstance abuse, HCV, bipolar disorder, and cyclic vomiting syndrome presented to the ER with epigastric pain since yesterday. assoc with nausea and multiple episodes of vomiting (food then bile, no blood). admits to drinking 1/5 of vodka and smoking THC. developed diarrhea this AM and no improvement with abdominal pain which prompted her to the ER. she states she has had no relief with zofran. she is allergic to all other anti- emetics. had similar episode last month and was hospitalized. was instructed to f/u with GI which she never did. denies CP, SOB, fever, chills. did not get her methadone dose yesterday or today ER course was notable for: (1)zofran 4mg x4 (2) (3) Recent Travel: PAST MEDICAL HISTORY:as above PAST SURGICAL HISTORY: c section x2 Social History: Smoking:+ Alcohol:1/5 vodka daily (more if she can get some) Drugs: THC use, hx of heroin now on methadone Family History: Allergies metoclopramide HCl [From Reglan] Allergy (Severe, Verified 03/02/18 08:04) dystonic reaction dystonic reaction prochlorperazine maleate [From Compazine] Allergy (Severe, Verified 03/02/18 08: 04) DYSTONIA haloperidol [From Haldol] Allergy (Verified 03/02/18 12:40) HOME MEDICATIONS: Home Medications Medication Instructions Recorded Pantoprazole Sodium [Protonix] 40 mg PO BID #60 tablet. 01/04/18 Divalproex Sodium [Depakote] 250 mg PO BID #60 tablet. 02/06/18 Gabapentin 100 mg PO TID #90 capsule 02/06/18 Methadone [Dolophine -] 40 mg PO DAILY@0600 #0 tablet MDD 1 02/06/18 Folic Acid - 1 mg PO DAILY tablet 03/06/18 Vitamins (Sjr) - 1 tab PO DAILY tablet 03/06/18 Thiamine HCl [Vitamin B1 -] 100 mg PO HS tablet 03/06/18 REVIEW OF SYSTEMS CONSTITUTIONAL: Absent: fever, chills, diaphoresis, generalized weakness, malaise, loss of appetite, weight change HEENT: Absent: rhinorrhea, nasal congestion, throat pain, throat swelling, difficulty swallowing, mouth swelling, ear pain, eye pain, visual changes CARDIOVASCULAR: Absent: chest pain, syncope, palpitations, irregular heart rate, lightheadedness , peripheral edema RESPIRATORY: Absent: cough, shortness of breath, dyspnea with exertion, orthopnea, wheezing, stridor, hemoptysis GASTROINTESTINAL:abdominal pain, nausea, vomiting, diarrhea Absent: , constipation, melena, hematochezia GENITOURINARY: Absent: dysuria, frequency, urgency, hesitancy, hematuria, flank pain, genital pain MUSCULOSKELETAL: Absent: myalgia, arthralgia, joint swelling, back pain, neck pain SKIN: Absent: rash, itching, pallor HEMATOLOGIC/IMMUNOLOGIC: Absent: easy bleeding, easy bruising, lymphadenopathy, frequent infections ENDOCRINE: Absent: unexplained weight gain, unexplained weight loss, heat intolerance, cold intolerance NEUROLOGIC: Absent: headache, focal weakness or paresthesias, dizziness, unsteady gait, seizure, mental status changes, bladder or bowel incontinence PSYCHIATRIC: Absent: anxiety, depression, suicidal or homicidal ideation, hallucinations. PHYSICAL EXAMINATION Vital Signs - 24 hr 04/02/18 04/02/18 08:49 14:05 Temperature 98.6 F Pulse Rate 60 Pulse Rate [ 92 H Apical] Respiratory 20 Rate Blood Pressure 136/85 Blood Pressure 144/109 [Left Arm] O2 Sat by Pulse 98 97 Oximetry (%) GENERAL: thin, disheveled, poor personal hygiene, lethargic HEAD: Normal with no signs of trauma. EYES: normal pupil size. Pupils equal, round and reactive to light, extraocular movements intact, sclera anicteric, conjunctiva clear. No lid lag. EARS, NOSE, THROAT: Ears normal, nares patent, oropharynx clear without exudates. Moist mucous membranes. NECK: Normal range of motion, supple without lymphadenopathy, JVD, or masses. LUNGS: Breath sounds equal, clear to auscultation bilaterally. No wheezes, and no crackles. No accessory muscle use. HEART: Regular rate and rhythm, normal S1 and S2 without murmur, rub or gallop. ABDOMEN: Soft, nontender, not distended, normoactive bowel sounds, no guarding, no rebound, no masses. No hepatomegaly or splenomegaly. MUSCULOSKELETAL: Normal range of motion at all joints. No bony deformities or tenderness. No CVA tenderness. UPPER EXTREMITIES: 2+ pulses, warm, well-perfused. No cyanosis. No clubbing. No peripheral edema. LOWER EXTREMITIES: 2+ pulses, warm, well-perfused. No calf tenderness. No peripheral edema. NEUROLOGICAL: Cranial nerves II-XII intact. Normal speech. Normal gait. PSYCHIATRIC: Cooperative. Good eye contact. Appropriate mood and affect. SKIN: Warm, dry, normal turgor, no rashes or lesions noted, normal capillary refill. Laboratory Results - last 24 hr 04/02/18 04/02/18 04/02/18 08:45 08:45 11:50 WBC 6.8 RBC 4.12 Hgb 14.0 Hct 41.2 MCV 100.2 H MCH 33.9 H MCHC 33.9 RDW 14.2 D Plt Count 142 MPV 10.5 Neutrophils % 74.7 Lymphocytes % 20.8 Monocytes % 3.5 L Eosinophils % 0.3 Basophils % 0.7 Nucleated RBC % 0 Sodium 136 Potassium 4.0 Chloride 103 Carbon Dioxide 23 Anion Gap 10 BUN 10 Creatinine 0.7 Creat Clearance w eGFR > 60 Random Glucose 181 H Calcium 8.5 Total Bilirubin 0.7 D AST 65 H ALT 40 Alkaline Phosphatase 106 Total Protein 8.1 Albumin 3.6 Lipase 229 Beta HCG, Quant < 1.0 Opiates Screen Negative Methadone Screen Positive Barbiturate Screen Negative Phencyclidine Screen Negative Ur Amphetamines Screen Negative MDMA (Ecstasy) Screen Negative Benzodiazepines Screen Negative Cocaine Screen Negative U Marijuana (THC) Screen Positive Alcohol, Quantitative < 5.0 ASSESSMENT/PLAN: 47yo F wtih PMH continuous polysubstance abuse, HCV, bipolar disorder, and cyclic vomiting syndrome presented to the ER with epigastric pain since yesterday 1. Intractable vomiting- medicine observation. pt with similar presentation last month. likely ETOH gastritis, cyclic vomiting from THC use vs methadone withdrawal. COWS 5. will need to confirm methadone dose and give to her (as per notes was discharged on 40mg). start NPO, IVF, zofran for nausea. has severe allergy to reglan and compazine. counselled on need to abstain from drinking and using illicit substances 2. Mild transaminitis- liekly due to ETOH use. consistent with labs on discharge. cont IVF 3. Hx of Qtc- currently Qtc 455 however received multiple doses of zofran. repeat EKG in AM 4. continuous polysubstance abuse- on chronic methadone. dose was reduced last admission to 40mg. will need to confirm. consult detox. no signs of ETOH withdrawals at this time. will give banana bag. start MVI, thiamine, folate 5. bipolar disorder- no manic episodes at this time. 6. Hx of HCV 7. DVT ppx- EAM Visit type - Emergency Visit Emergency Visit: Yes ED Registration Date: 04/02/18 Care time: The patient presented to the Emergency Department on the above date and was hospitalized for further evaluation of their emergent condition. - New Patient This patient is new to me today: Yes Date on this admission: 04/02/18 - Critical Care Critical Care patient: No Hospitalist Screening - Colonoscopy Questionnaire Colonoscopy Questionnaire: Colonoscopy Questionnaire - Patient: 50 - 75 years old and never had a screening colonoscopy: Unknown History of colon or rectal polyps, or CA: Unknown History of IBD, Crohn's disease or UC: Unknown History of abdominal radiation therapy as a child: Unknown - Relative: 1 with colon or rectal CA, or polyps at age 60 or younger: Unknown Colon or rectal CA diagnosed at age 45 or younger: Unknown Multiple relatives with colon or rectal CA: Unknown - Outcome: Screening Result: Negative Screen
[2018-04-02] MEDS: SODIUM CHLORIDE 1,000 ML IV SCH (18:26)
--- NOTE | 2018-04-02 22:03 | EKG ---
Test Reason : Blood Pressure : / mmHG Vent. Rate : 060 BPM Atrial Rate : 060 BPM P-R Int : 142 ms QRS Dur : 090 ms QT Int : 458 ms P-R-T Axes : 072 061 060 degrees QTc Int : 458 ms NORMAL SINUS RHYTHM POSSIBLE LEFT ATRIAL ENLARGEMENT LEFT VENTRICULAR HYPERTROPHY CANNOT RULE OUT SEPTAL INFARCT , AGE UNDETERMINED T WAVE ABNORMALITY, CONSIDER ANTERIOR ISCHEMIA PEAKED APPEARANCE TO T WAVES--MAY BE SEEN IN HYPERKALEMIA ABNORMAL ECG WHEN COMPARED WITH ECG OF 05-MAR-2018 10:09, MINIMAL CRITERIA FOR SEPTAL INFARCT ARE NOW PRESENT Confirmed by MARTY ALMANZA MD ([id number]) on 04/02/2018 10:03:15 PM Referred By: Confirmed By:MARYT ALMANZA MD
[2018-04-02] MEDS: GABAPENTIN 100 MG CAPSULE (FP) PO SCH (22:15)
[2018-04-02] MEDS: PANTOPRAZOLE 40 MG TABLET (FP) PO SCH (22:15)
[2018-04-02 22:29] VITALS: BMI 20.2
[2018-04-02] MEDS: DIVALPROEX SODIUM 250 MG TABLET E.C. PO SCH (22:53)
[2018-04-03] MEDS ORDERED: ACETAMINOPHEN 325 MG TABLET (FP) PO PRN (00:05)
[2018-04-03] MEDS: SODIUM CHLORIDE 1,000 ML IV SCH (04:17)
[2018-04-03] MEDS: GABAPENTIN 100 MG CAPSULE (FP) PO SCH ×2 (06:04→14:12)
--- NOTE | 2018-04-03 06:26 | PN ---
Physical Exam: SUBJECTIVE: Patient seen and examined. said she is no longer vomiting and is asking for clears. Her methadone is being confirmed OBJECTIVE: Vital Signs Period Temp Pulse Resp BP Sys/Moore Pulse Ox Last 24 Hr 97.7 F-99.5 F 60-100 17-20 134-162/85-119 97-98 Vital Signs Temp 98.9 F 04/03/18 08:01 Pulse 90 04/03/18 08:01 Resp 17 04/03/18 08:01 BP 147/115 04/03/18 08:01 Pulse Ox 98 04/02/18 20:58 Intake & Output 04/02/18 04/02/18 04/03/18 11:59 23:59 11:59 Intake Total 3217 008 8467 Balance 3545 530 4209 Weight 49.895 kg 48.761 kg Intake: IVPB 1000 1250 Oral 300 350 Other: Voiding Method Toilet Toilet # Unmeasured Voids Void 1 2 Bowel Movement No No No Height 1.55 m 1.55 m Body Mass Index (BMI) 20.7 20.2 Weight Measurement Method Built in [facility] Weight Measurement Method Est/Stated by Patient GENERAL: The patient is awake, alert, and fully oriented, in no acute distress. HEAD: Normal with no signs of trauma. EYES: PERRL, extraocular movements intact, sclera anicteric, conjunctiva clear. No ptosis. ENT: Ears normal, nares patent, oropharynx clear without exudates, moist mucous membranes. NECK: Trachea midline, full range of motion, supple. LUNGS: Breath sounds equal, clear to auscultation bilaterally, no wheezes, no crackles, no accessory muscle use. HEART: Regular rate and rhythm, S1, S2 without murmur, rub or gallop. ABDOMEN: Soft, nontender, nondistended, normoactive bowel sounds, no guarding, no rebound, no hepatosplenomegaly, no masses. EXTREMITIES: 2+ pulses, warm, well-perfused, no edema. NEUROLOGICAL: Cranial nerves II through XII grossly intact. Normal speech, gait not observed. PSYCH: Normal mood, normal affect. SKIN: Warm, dry, normal turgor, no rashes or lesions noted Laboratory Results - last 24 hr 04/02/18 04/02/18 04/02/18 08:45 08:45 11:50 WBC 6.8 RBC 4.12 Hgb 14.0 Hct 41.2 MCV 100.2 H MCH 33.9 H MCHC 33.9 RDW 14.2 D Plt Count 142 MPV 10.5 Neutrophils % 74.7 Lymphocytes % 20.8 Monocytes % 3.5 L Eosinophils % 0.3 Basophils % 0.7 Nucleated RBC % 0 Sodium 136 Potassium 4.0 Chloride 103 Carbon Dioxide 23 Anion Gap 10 BUN 10 Creatinine 0.7 Creat Clearance w eGFR > 60 Random Glucose 181 H Calcium 8.5 Total Bilirubin 0.7 D AST 65 H ALT 40 Alkaline Phosphatase 106 Total Protein 8.1 Albumin 3.6 Lipase 229 Beta HCG, Quant < 1.0 Opiates Screen Negative Methadone Screen Positive Barbiturate Screen Negative Phencyclidine Screen Negative Ur Amphetamines Screen Negative MDMA (Ecstasy) Screen Negative Benzodiazepines Screen Negative Cocaine Screen Negative U Marijuana (THC) Screen Positive Alcohol, Quantitative < 5.0 Active Medications Generic Name Dose Route Start Last Admin Trade Name Freq PRN Reason Stop Dose Admin Acetaminophen 650 mg 04/03/18 00:05 04/03/18 01:30 Tylenol - PO 650 mg Q4H PRN Administration PAIN LEVEL 1-5 Divalproex Sodium 250 mg 04/02/18 22:00 04/02/18 22:53 Depakote - PO 250 mg BID GONZALEZ Administration Folic Acid 1 mg 04/03/18 10:00 Folic Acid - PO DAILY GONZALEZ Gabapentin 100 mg 04/02/18 22:00 04/03/18 06:04 Neurontin - PO 100 mg TID GONZALEZ Administration Sodium Chloride 1,000 mls @ 125 mls/hr 04/02/18 18:15 04/03/18 04:17 Normal Saline - IV 125 mls/hr ASDIR GONZALEZ Administration Ondansetron HCl 4 mg 04/02/18 18:06 Zofran Injection IVPUSH Q6H PRN NAUSEA Pantoprazole Sodium 40 mg 04/02/18 22:00 04/02/18 22:15 Protonix - PO 40 mg BID GONZALEZ Administration Thiamine HCl 100 mg 04/03/18 10:00 Vitamin B1 - PO DAILY [facility] Ambulatory Orders Pantoprazole Sodium [Protonix] 40 mg PO BID #60 tablet. 01/04/18 Divalproex Sodium [Depakote] 250 mg PO BID #60 tablet. 02/06/18 Gabapentin 100 mg PO TID #90 capsule 02/06/18 Folic Acid - 1 mg PO DAILY tablet 03/06/18 Vitamins (Sjr) - 1 tab PO DAILY tablet 03/06/18 Thiamine HCl [Vitamin B1 -] 100 mg PO HS tablet 03/06/18 Methadone [Dolophine -] 30 mg PO DAILY@0600 MDD 1 04/02/18 Current Medications Acetaminophen (Tylenol -) 650 mg PO Q4H PRN PRN Reason: PAIN LEVEL 1-5 Last Admin: 04/03/18 01:30 Dose: 650 mg Divalproex Sodium (Depakote -) 250 mg PO BID [facility] Last Admin: 04/02/18 22:53 Dose: 250 mg Folic Acid (Folic Acid -) 1 mg PO DAILY [facility] Gabapentin (Neurontin -) 100 mg PO TID [facility] Last Admin: 04/03/18 06:04 Dose: 100 mg Sodium Chloride (Normal Saline -) 1,000 mls @ 125 mls/hr IV ASDIR [facility] Last Admin: 04/03/18 04:17 Dose: 125 mls/hr Ondansetron HCl (Zofran Injection) 4 mg IVPUSH Q6H PRN PRN Reason: NAUSEA Pantoprazole Sodium (Protonix -) 40 mg PO BID [facility] Last Admin: 04/02/18 22:15 Dose: 40 mg Thiamine HCl (Vitamin B1 -) 100 mg PO DAILY [facility] ASSESSMENT/PLAN:
[2018-04-03 07:31] LABS: BASO % 0.2 % (0-2.0); HEMATOCRIT 41.3 % (32.4-45.2); HEMOGLOBIN 14.4 GM/dL (10.7-15.3); LYMPH % 16.2 % (8-40); MCH 34.2 pg (25.7-33.7); MCHC 34.9 g/dl (32.0-36.0); MEAN PLT VOLUME 10.2 fl (7.5-11.1); MONO % 7.4 % (3.8-10.2); NEUT % 76.2 % (42.8-82.8); PLATELET COUNT 147 K/MM3 (134-434); RBC 4.22 M/mm3 (3.60-5.2); RDW 13.9 % (11.6-15.6); WHITE BLOOD COUNT 8.6 K/mm3 (4.0-10.0)
[2018-04-03 07:50] LABS: ALBUMIN 3.7 g/dl (3.4-5.0); ANION GAP 10 (8-16); BLOOD UREA NITROGEN 10 mg/dL (7-18); CALCIUM 8.4 mg/dL (8.5-10.1); CHLORIDE 101 mmol/L (98-107); CO2 23 mmol/L (21-32); CREATININE 0.8 mg/dL (0.55-1.02); GLUCOSE,RANDOM 123 mg/dL (74-106); PHOSPHOROUS 3.1 mg/dL (2.5-4.9); POTASSIUM 3.4 mmol/L (3.5-5.1); SGOT/AST 44 U/L (15-37); SGPT/ALT 35 U/L (12-78); SODIUM 134 mmol/L (136-145); TOT PROT 8.3 g/dl (6.4-8.2)
[2018-04-03 07:55] LABS: ALK PHOS 103 U/L (45-117); MAGNESIUM 1.6 mg/dL (1.8-2.4)
[2018-04-03] MEDS ORDERED: PT OWN MED DRAWER 7, Y5N ONE ×2 (09:37→14:51)
[2018-04-03] MEDS: PANTOPRAZOLE 40 MG TABLET (FP) PO SCH (09:40)
[2018-04-03] MEDS: DIVALPROEX SODIUM 250 MG TABLET E.C. PO SCH (09:40)
[2018-04-03] MEDS ORDERED: THIAMINE HCL 100 MG TABLET (FP) PO SCH (10:00)
[2018-04-03] MEDS ORDERED: MAGNESIUM OXIDE 400 MG TABLET (FP) PO ONE (10:00)
[2018-04-03] MEDS ORDERED: FOLIC ACID 1 MG TABLET (FP) PO SCH (10:00)
[2018-04-03] MEDS ORDERED: POTASSIUM CHLORIDE TABS 20 MEQ TABLET.ER (FP) PO ONE (11:00)
--- NOTE | 2018-04-03 11:19 | EKG ---
Test Reason : Blood Pressure : / mmHG Vent. Rate : 069 BPM Atrial Rate : 069 BPM P-R Int : 132 ms QRS Dur : 086 ms QT Int : 446 ms P-R-T Axes : 071 051 054 degrees QTc Int : 477 ms NORMAL SINUS RHYTHM MINIMAL VOLTAGE CRITERIA FOR LVH, MAY BE NORMAL VARIANT HYPERACUTE T WAVE IN PRECORDIAL LEADS BORDERLINE ECG WHEN COMPARED WITH ECG OF 02-APR-2018 09:50, NO SIGNIFICANT CHANGE WAS FOUND Confirmed by VIVIAN SWANSON MD ([id number]) on 04/03/2018 11:19:39 AM Referred By: MADIE SANTIAGO DR Confirmed By:VIVIAN SWANSON MD
[2018-04-03] MEDS ORDERED: METHADONE HCL 10 MG TABLET (FOR DETOX USE ONLY) PO SCH (12:45)
[2018-04-03] MEDS ORDERED: METHADONE HCL 10 MG TABLET PO SCH ×2 (12:45→13:00)
[2018-04-03 13:17] VITALS: BP 136/76; PULSE 92; TEMP 98.7
--- NOTE | 2018-04-03 14:22 | PN ---
Teaching Attending Note Name of Resident: Jessica Kramer ATTENDING PHYSICIAN STATEMENT I saw and evaluated the patient. I reviewed the resident's note and discussed the case with the resident. I agree with the resident's findings and plan as documented. SUBJECTIVE:some soreness of the stomach, nausea has resolved. tolerating liquid diet. denies CP, SOB, fever, chills, N/V/C/D OBJECTIVE: Last Vital Signs Temp Pulse Resp BP Pulse Ox 98.7 F 92 H 20 136/76 98 04/03/18 12:00 04/03/18 12:00 04/03/18 12:00 04/03/18 12:00 04/03/18 10:00 General NAD, HEENT PERRL, CV S1 S2 RRR no murmur/rub/gallop Lungs CTA B/L no wheezing/rales/rhonchi Abdomen soft NT/ND extremities no tremors ASSESSMENT AND PLAN: 47yo F wtih PMH continuous polysubstance abuse, HCV, bipolar disorder, and cyclic vomiting syndrome presented to the ER with epigastric pain since yesterday 1. Intractable vomiting-resolved. advance to liquid diet this AM. improved. tolerating well and requesting to go home. counselled on abstaining from illicit substances. d/w doing inpatient rehab which she is not interested in at this time. f/u with GI as outpatient 2. Mild transaminitis- liekly due to ETOH use. stable 3. Hx of Qtc- repeat EKG 477 after multiple zofran doses. would hold any current doses at this time. 4. continuous polysubstance abuse- on chronic methadone. Confirmed dose 30mg. 5. bipolar disorder- no manic episodes at this time. 6. Hx of HCV 7. DVT ppx- EAM 8. d/c home
--- NOTE | 2018-04-03 14:42 | DS ---
Physical Exam: SUBJECTIVE: Patient seen and examined OBJECTIVE: Vital Signs Period Temp Pulse Resp BP Sys/Moore Pulse Ox Last 24 Hr 97.7 F-99.5 F 85-100 17-20 134-162/76-119 97-98 PHYSICAL EXAM GENERAL: The patient is awake, alert, and fully oriented, in no acute distress. HEAD: Normal with no signs of trauma. EYES: PERRL, extraocular movements intact, sclera anicteric, conjunctiva clear. ENT: Ears normal, nares patent, oropharynx clear without exudates, moist mucous membranes. NECK: Trachea midline, full range of motion, supple. LUNGS: Breath sounds equal, clear to auscultation bilaterally, no wheezes, no crackles, no accessory muscle use. HEART: Regular rate and rhythm, S1, S2 without murmur, rub or gallop. ABDOMEN: Soft, nontender, nondistended, normoactive bowel sounds, no guarding, no rebound, no hepatosplenomegaly, no masses. EXTREMITIES: 2+ pulses, warm, well-perfused, no edema. NEUROLOGICAL: Cranial nerves II through XII grossly intact. Normal speech, gait not observed. PSYCH: Normal mood, normal affect. SKIN: Warm, dry, normal turgor, no rashes or lesions noted. LABS Laboratory Results - last 24 hr 04/03/18 04/03/18 07:05 07:05 WBC 8.6 RBC 4.22 Hgb 14.4 Hct 41.3 MCV 98.0 H MCH 34.2 H MCHC 34.9 RDW 13.9 Plt Count 147 MPV 10.2 Neutrophils % 76.2 Lymphocytes % 16.2 D Monocytes % 7.4 D Eosinophils % 0.0 D Basophils % 0.2 Nucleated RBC % 0 Sodium 134 L Potassium 3.4 L Chloride 101 Carbon Dioxide 23 Anion Gap 10 BUN 10 Creatinine 0.8 Creat Clearance w eGFR > 60 Random Glucose 123 H Calcium 8.4 L Phosphorus 3.1 Magnesium 1.6 L Total Bilirubin 1.0 D AST 44 H ALT 35 Alkaline Phosphatase 103 Total Protein 8.3 H Albumin 3.7 HOSPITAL COURSE: Date of Admission:04/02/18 Date of Discharge: 04/03/18 <Mabel Nails - Last Filed: 04/03/18 15:41> Physical Exam: SUBJECTIVE: Patient seen and examined. Pt said she is no longer vomiting and is asking for clears. Her methadone is being confirmed OBJECTIVE: Vital Signs Period Temp Pulse Resp BP Sys/Moore Pulse Ox Last 24 Hr 97.7 F-99.5 F 85-100 17-20 134-162/76-119 97-98 Vital Signs Temp 98.7 F 04/03/18 12:00 Pulse 92 H 04/03/18 12:00 Resp 20 04/03/18 12:00 BP 136/76 04/03/18 12:00 Pulse Ox 98 04/03/18 10:00 Intake & Output 04/02/18 04/03/18 04/03/18 23:59 11:59 23:59 Intake Total 300 1600 450 Balance 300 1600 450 Weight 48.761 kg Intake: IVPB 1250 Oral 300 350 450 Other: Voiding Method Toilet Toilet # Unmeasured Voids Void 1 2 Bowel Movement No No Height 1.55 m Body Mass Index (BMI) 20.2 Weight Measurement Method Built in [facility] Intake & Output 03/31/18 04/01/18 04/02/18 04/03/18 23:59 23:59 23:59 23:59 Intake Total 1300 2050 Balance 1300 2050 Weight 48.761 kg PHYSICAL EXAM GENERAL: The patient is awake, alert, and fully oriented, in no acute distress. No diaphoresis or tremors. LUNGS: Breath sounds equal, clear to auscultation bilaterally, no wheezes, no crackles, no accessory muscle use. HEART: Regular rate and rhythm, S1, S2 without murmur. ABDOMEN: Soft, nontender, nondistended, normoactive bowel sounds EXTREMITIES: 2+ pulses, warm, well-perfused, no edema. NEUROLOGICAL: AAOx3. Normal speech and gait. No tremors at rest. Normal muscle strength and tone globally. COW's score-4 LABS CBC, BMP 04/03/18 07:05 04/03/18 07:05 Laboratory Results - last 24 hr 04/03/18 04/03/18 07:05 07:05 WBC 8.6 RBC 4.22 Hgb 14.4 Hct 41.3 MCV 98.0 H MCH 34.2 H MCHC 34.9 RDW 13.9 Plt Count 147 MPV 10.2 Neutrophils % 76.2 Lymphocytes % 16.2 D Monocytes % 7.4 D Eosinophils % 0.0 D Basophils % 0.2 Nucleated RBC % 0 Sodium 134 L Potassium 3.4 L Chloride 101 Carbon Dioxide 23 Anion Gap 10 BUN 10 Creatinine 0.8 Creat Clearance w eGFR > 60 Random Glucose 123 H Calcium 8.4 L Phosphorus 3.1 Magnesium 1.6 L Total Bilirubin 1.0 D AST 44 H ALT 35 Alkaline Phosphatase 103 Total Protein 8.3 H Albumin 3.7 Abnormal Lab Results 04/03/18 04/03/18 07:05 07:05 MCV 98.0 H MCH 34.2 H Sodium 134 L Potassium 3.4 L Random Glucose 123 H Calcium 8.4 L Magnesium 1.6 L AST 44 H Total Protein 8.3 H HOSPITAL COURSE: Date of Admission:04/02/18 Date of Discharge: 04/03/18 Prehospital course: 47yo F wtih PMH continuous polysubstance abuse, HCV, bipolar disorder, and cyclic vomiting syndrome (marijuana induced) presented to the ER with epigastric pain for 1 day associated with nausea and multiple episodes of vomiting (food then bile, no blood). Pt admits to drinking 1/5 of vodka and smoking THC. She developed diarrhea this AM and no improvement with abdominal pain which prompted her to the ER. Pt stated she had no relief with zofran. She is allergic to all other anti-emetics. She had similar episode last month and was hospitalized and was instructed to f/u with GI which she never did. Pt did not get her methadone dose a day before presentation or the day of presentation. Hospital Course: She was managed for emesis with fluids, was NPO and received zofran. She received 30mg Methadone following confirmation from the Methdaone clinic. Pt tolerated PO both clear liquids and solid food with no vomiting. She had electrolytes repleted as needed. She was discharged home on multivitamins to follow with [facility] detox center as an outpatient. <Jessica Kramer I - Last Filed: 04/03/18 20:28> Discharge Summary Current Active Problems Alcohol dependence with uncomplicated withdrawal (Acute) Intractable vomiting (Acute) Methadone withdrawal (Acute) Opioid dependence on agonist therapy (Chronic) - Home Medications Comprehensive Discharge Medication List: Ambulatory Orders Pantoprazole Sodium [Protonix] 40 mg PO BID #60 tablet. 01/04/18 Divalproex Sodium [Depakote] 250 mg PO BID #60 tablet. 02/06/18 Gabapentin 100 mg PO TID #90 capsule 02/06/18 Folic Acid - 1 mg PO DAILY tablet 03/06/18 Vitamins (Sjr) - 1 tab PO DAILY tablet 03/06/18 Thiamine HCl [Vitamin B1 -] 100 mg PO HS tablet 03/06/18 Methadone (Detox) [Dolophine -] 30 mg PO DAILY@0600 tablet MDD 50 04/03/18 <Mabel Nails - Last Filed: 04/03/18 15:41> Reason For Visit: METHADONE WITHDRAWAL VOMITING Current Active Problems Intractable vomiting (Acute) Methadone withdrawal (Acute) - Home Medications Comprehensive Discharge Medication List: Ambulatory Orders Pantoprazole Sodium [Protonix] 40 mg PO BID #60 tablet. 01/04/18 Divalproex Sodium [Depakote] 250 mg PO BID #60 tablet. 02/06/18 Gabapentin 100 mg PO TID #90 capsule 02/06/18 Folic Acid - 1 mg PO DAILY tablet 03/06/18 Vitamins (Sjr) - 1 tab PO DAILY tablet 03/06/18 Thiamine HCl [Vitamin B1 -] 100 mg PO HS tablet 03/06/18 Methadone (Detox) [Dolophine -] 30 mg PO DAILY@0600 tablet MDD 50 04/03/18 <Jessica Kramer I - Last Filed: 04/03/18 20:28> Condition: Improved - Instructions Diet, Activity, Other Instructions: You were evaluated for abdominal pain, nausea and vomiting. SLowly advance your diet as tolerated Your vomiting could be related to your marijuana and alcohol use You received hydration and standard lab tests, which were relatively unremarkable. You are being discharged home with outpatient follow-up with your primary care provider in one week and follow up as an outpatient to continue methadone. If your interested in inpatient rehab, please call [facility]. You can also seek help through AA meetings. Refer to website for meeting locations and schedule If you continues to have abdominal pain and vomiting please follow up [facility] GI ( Dr Wyatt) as instructed to last visit If you experience any of the following symptoms, please return to the ED: - Persistent fevers/chills >3 days - Blood in your stool, persistent diarrhea, persistent nausea and vomiting - Changes in vision, numbness/weakness in any extremities, or persistent dizziness/loss of consciousness - Any new or concerning symptoms Referrals: Ishaan Wyatt MD [Staff Physician] - Benja Goins MD [Primary Care Provider] - 1 week Disposition: HOME Problem List - Problems (1) Alcohol dependence with uncomplicated withdrawal Code(s): F10.230 - ALCOHOL DEPENDENCE WITH WITHDRAWAL, UNCOMPLICATED (2) Opioid dependence on agonist therapy Code(s): F11.20 - OPIOID DEPENDENCE, UNCOMPLICATED <Mabel Nails - Last Filed: 04/03/18 15:41>
--- NOTE | 2018-04-03 15:15 | PN ---
S Progress Note (SOAP) Subjective: A consult for requested for this pt who is in our OTP at [facility], admitted yesterday for vomiting. Pt is about to be discharged. This is a 46 yo pt with long h/o alcohol use, opiate use disorder, bipolar d/o and pancreatitis. She has been at [facility] since 05/2017. Pt is on methadone 30mg /day- she is on a low dose b/c of QT prolongation (was also on seroquel). Pt was recently hospitalized from 03/02-03/06 for pancreatitis. Pt states to me that she has been drinking about a gallon of alcohol a day- not sure if this is accurate. Was admitted about 24 hours ago for vomiting. Pt states she is feeling fine now and wants to go home. Says she has a welfare appt for services tomorrow. Pt states she will follow up with [facility] tomorrow and consider detox services for alcohol. Pt denies h/o seizures. Objective: 04/03/18 15:35 Vital Signs - 8 hr 04/03/18 04/03/18 04/03/18 08:01 10:00 12:00 Temperature 98.9 F 98.7 F Pulse Rate 90 92 H Respiratory 17 19 20 Rate Blood Pressure 147/115 136/76 O2 Sat by Pulse 98 Oximetry (%) PE: alert and oriented, thin appearing, pleasant abdominal exam: without tenderness to palpation m/s: active, ambulating normally, without tremulousness and finger to nose normal Assessment: 46 yo with h/o alcohol use disorder and opiate use disorder (also bipolar, HCV pos) admitted for intractable vomiting- feeling much better today. Pt with normal VS and no evidence of alcohol withdrawal at this time. I offered pt librium prior to discharge- pt refused stating that she is feeling fine and does not want to wait for librium dosing. 04/03/18 15:38 Plan: Pt is ready for discharge. PE and VS are WNL. Pt states she will follow up with [facility] OTP tomorrow and will consider going to detox/rehab. We will continue methadone 30mg/day and follow up with her.
--- NOTE | 2018-04-03 20:28 | DS ---
Physical Exam: SUBJECTIVE: Patient seen and examined. Pt said she is no longer vomiting and is asking for clears. Her methadone is being confirmed OBJECTIVE: Vital Signs Period Temp Pulse Resp BP Sys/Moore Pulse Ox Last 24 Hr 97.7 F-99.5 F 85-100 17-20 136-162/76-115 98-98 Vital Signs Temp 98.7 F 04/03/18 12:00 Pulse 92 H 04/03/18 12:00 Resp 20 04/03/18 12:00 BP 136/76 04/03/18 12:00 Pulse Ox 98 04/03/18 10:00 Intake & Output 04/02/18 04/03/18 04/03/18 23:59 11:59 23:59 Intake Total 300 1600 450 Balance 300 1600 450 Weight 48.761 kg Intake: IVPB 1250 Oral 300 350 450 Other: Voiding Method Toilet Toilet # Unmeasured Voids Void 1 2 Bowel Movement No No Height 1.55 m Body Mass Index (BMI) 20.2 Weight Measurement Method Built in [facility] Intake & Output 03/31/18 04/01/18 04/02/18 04/03/18 23:59 23:59 23:59 23:59 Intake Total 1300 2050 Balance 1300 2050 Weight 48.761 kg PHYSICAL EXAM GENERAL: The patient is awake, alert, and fully oriented, in no acute distress. No diaphoresis or tremors. LUNGS: Breath sounds equal, clear to auscultation bilaterally, no wheezes, no crackles, no accessory muscle use. HEART: Regular rate and rhythm, S1, S2 without murmur. ABDOMEN: Soft, nontender, nondistended, normoactive bowel sounds EXTREMITIES: 2+ pulses, warm, well-perfused, no edema. NEUROLOGICAL: AAOx3. Normal speech and gait. No tremors at rest. Normal muscle strength and tone globally. COW's score-4 CBC, BMP 04/03/18 07:05 04/03/18 07:05 LABS Laboratory Results - last 24 hr 04/03/18 04/03/18 07:05 07:05 WBC 8.6 RBC 4.22 Hgb 14.4 Hct 41.3 MCV 98.0 H MCH 34.2 H MCHC 34.9 RDW 13.9 Plt Count 147 MPV 10.2 Neutrophils % 76.2 Lymphocytes % 16.2 D Monocytes % 7.4 D Eosinophils % 0.0 D Basophils % 0.2 Nucleated RBC % 0 Sodium 134 L Potassium 3.4 L Chloride 101 Carbon Dioxide 23 Anion Gap 10 BUN 10 Creatinine 0.8 Creat Clearance w eGFR > 60 Random Glucose 123 H Calcium 8.4 L Phosphorus 3.1 Magnesium 1.6 L Total Bilirubin 1.0 D AST 44 H ALT 35 Alkaline Phosphatase 103 Total Protein 8.3 H Albumin 3.7 HOSPITAL COURSE: Date of Admission:04/02/18 Date of Discharge: 04/03/18 Prehospital course: 47yo F [facility] continuous polysubstance abuse, HCV, bipolar disorder, and cyclic vomiting syndrome (marijuana induced) presented to the ER with epigastric pain for 1 day associated with nausea and multiple episodes of vomiting (food then bile, no blood). Pt admits to drinking 1/5 of vodka and smoking THC. She developed diarrhea this AM and no improvement with abdominal pain which prompted her to the ER. Pt stated she had no relief with zofran. She is allergic to all other anti-emetics. She had similar episode last month and was hospitalized and was instructed to f/u with GI which she never did. Pt did not get her methadone dose a day before presentation or the day of presentation. Hospital Course: She was managed for emesis with fluids, was NPO and received zofran. She received 30mg Methadone following confirmation from the Meth[facility]one clinic. Pt tolerated PO both clear liquids and solid food with no vomiting. She had electrolytes repleted as needed. She was discharged home on multivitamins to follow with [facility] detox center as an outpatient. Minutes to complete discharge: 40 Discharge Summary Reason For Visit: METHADONE WITHDRAWAL VOMITING Condition: Improved - Instructions Diet, Activity, Other Instructions: You were evaluated for abdominal pain, nausea and vomiting. SLowly advance your diet as tolerated Your vomiting could be related to your marijuana and alcohol use You received hydration and standard lab tests, which were relatively unremarkable. You are being discharged home with outpatient follow-up with your primary care provider in one week and follow up as an outpatient to continue methadone. If your interested in inpatient rehab, please call [facility]. You can also seek help through AA meetings. Refer to website for meeting locations and schedule If you continues to have abdominal pain and vomiting please follow up [facility] GI ( Dr Wyatt) as instructed to last visit If you experience any of the following symptoms, please return to the ED: - Persistent fevers/chills >3 days - Blood in your stool, persistent diarrhea, persistent nausea and vomiting - Changes in vision, numbness/weakness in any extremities, or persistent dizziness/loss of consciousness - Any new or concerning symptoms Referrals: Ishaan Wyatt MD [Staff Physician] - Benja Goins MD [Primary Care Provider] - 1 week Disposition: HOME - Home Medications Comprehensive Discharge Medication List: Ambulatory Orders Pantoprazole Sodium [Protonix] 40 mg PO BID #60 tablet. 01/04/18 Divalproex Sodium [Depakote] 250 mg PO BID #60 tablet. 02/06/18 Gabapentin 100 mg PO TID #90 capsule 02/06/18 Folic Acid - 1 mg PO DAILY tablet 03/06/18 Vitamins (Sjr) - 1 tab PO DAILY tablet 03/06/18 Thiamine HCl [Vitamin B1 -] 100 mg PO HS tablet 03/06/18 Methadone (Detox) [Dolophine -] 30 mg PO DAILY@0600 tablet MDD 50 04/03/18 This patient is new to me today: Yes Date on this admission: 04/03/18 Emergency Visit: Yes ED Registration Date: 04/02/18 Care time: The patient presented to the Emergency Department on the above date and was hospitalized for further evaluation of their emergent condition. Critical Care patient: No - Discharge Referral Referred to [facility] No
== END 2018-04-03 15:13 | disposition home or self-care (01) ==
LOC: JER 08:38 → JERBED 15:18 → J6S 21:42
PROVIDERS: ADMIT Internal Medicine; ATTEND Internal Medicine
PROC: 3E0333Z Introduction of Anti-inflammatory into Peripheral Vein, Percutaneous Approach (ICD-10-PCS; principal; 2018-04-02)
PROC: 3E033GC Introduction of Other Therapeutic Substance into Peripheral Vein, Percutaneous Approach (ICD-10-PCS; 2018-04-02)
PROC: 3E0337Z Introduction of Electrolytic and Water Balance Substance into Peripheral Vein, Percutaneous Approach (ICD-10-PCS; 2018-04-02)
PROC: 3E0133Z Introduction of Anti-inflammatory into Subcutaneous Tissue, Percutaneous Approach (ICD-10-PCS; 2018-04-02)
DX: F11.23 Opioid dependence with withdrawal (principal); F10.230 Alcohol dependence with withdrawal, uncomplicated; F12.20 Cannabis dependence, uncomplicated; F17.200 Nicotine dependence, unspecified, uncomplicated; R11.2 Nausea with vomiting, unspecified; I10 Essential (primary) hypertension; B18.2 Chronic viral hepatitis C; K21.9 Gastro-esophageal reflux disease without esophagitis; Z88.8 Allergy status to other drugs, medicaments and biological substances; R74.0 Nonspecific elevation of levels of transaminase and lactic acid dehydrogenase [LDH]; F31.9 Bipolar disorder, unspecified
CPT/HCPCS: 36415; 80053; 80307; 83690; 83735; 84100; 84702; 85025; 93005; 93010; 96365; 96366; 96367; 96372; 96375; 96376; 99285-25; G0378; J7030; Q0162

== ENCOUNTER 2018-04-04 09:47 | Emergency (ER) | payer OTHER ==
[2018-04-04] MEDS ORDERED: ONDANSETRON *ODT* 4 MG TABLET SL ONE (10:06)
[2018-04-04] MEDS ORDERED: LIDOCAINE VISCOUS 2% ORAL/TOP 20 ML UNIT-DOSE CUP MM ONE (10:07)
[2018-04-04] MEDS ORDERED: PANTOPRAZOLE 40 MG TABLET (FP) PO ONE (10:07)
[2018-04-04 10:08] VITALS: BP 173/99; PULSE 90; TEMP 98.8; BMI 20.2
--- NOTE | 2018-04-04 10:13 | PDOC ---
History of Present Illness - General Chief Complaint: Nausea/Vomiting Stated Complaint: VOMITING History Source: Patient Exam Limitations: No Limitations - History of Present Illness Initial Comments: 04/04/18 10:08 47-year-old female history of polysubstance abuse HCV bipolar history of cyclic vomiting secondary to marijuana abuse, just discharged from the hospital on the night previous admitted by myself on 04/02, here today from the [facility] complaining of epigastric abdominal pain. Patient states she has not had a rink of alcohol since prior to her admission she denies any other drug use no fevers no chills. Review of the patient's records shows that she does have a CT scan of both December and December of this year which was unremarkable. She was also evaluated with an ultrasound of her abdomen within the last month. No fevers chills no urinary complaints is currently on methadone 30 mg daily states she got her methadone today Past History - Past Medical History Allergies/Adverse Reactions: Allergies Allergy/AdvReac Type Severity Reaction Status Date / Time metoclopramide HCl Allergy Severe dystonic Verified 03/02/18 08:04 [From Reglan] reaction prochlorperazine maleate Allergy Severe DYSTONIA Verified 03/02/18 08:04 [From Compazine] haloperidol [From Haldol] Allergy Verified 03/02/18 12:40 Home Medications: Ambulatory Orders Divalproex Sodium [Depakote] 250 mg PO BID #60 tablet. 02/06/18 Gabapentin 100 mg PO TID #90 capsule 02/06/18 Folic Acid - 1 mg PO DAILY tablet 03/06/18 Vitamins (Sjr) - 1 tab PO DAILY tablet 03/06/18 Thiamine HCl [Vitamin B1 -] 100 mg PO HS tablet 03/06/18 Methadone (Detox) [Dolophine -] 30 mg PO DAILY@0600 tablet MDD 50 04/03/18 Pantoprazole Sodium [Protonix] 40 mg PO BID #60 tablet. 04/04/18 Anemia: No Asthma: No Cancer: No Cardiac Disorders: No CVA: No COPD: No CHF: No Dementia: No Diabetes: No GI Disorders: Yes (pancreatitis, GERD) Disorders: No HTN: Yes Hypercholesterolemia: No Kidney Stones: No Liver Disease: Yes (hepatitis) Psychiatric Problems: Yes (bipolar) Seizures: No Thyroid Disease: No - Surgical History Abdominal Surgery: No Appendectomy: No Cardiac Surgery: No Cholecystectomy: No Lung Surgery: No Neurologic Surgery: No Orthopedic Surgery: No - Reproductive History (#): 13 Para: 11 PID: No - Immunization History Immunization Up to Date: No - Suicide/Smoking/Psychosocial Hx Smoking History: Current every day smoker Have you smoked in the past 12 months: Yes Number of Cigarettes Smoked Daily: 3 Cigars Per Day: 0 Information on smoking cessation initiated: No 'Breaking Loose' booklet given: 04/02/18 Hx Alcohol Use: No Drug/Substance Use Hx: No Substance Use Type: Alcohol, Marijuana Hx Substance Use Treatment: Yes (MMTP) Review of Systems - Review of Systems Constitutional: No: Diaphoresis, Fever Respiratory: No: Orthopnea Cardiac (ROS): No: Chest Pain ABD/GI: Yes: Nausea, Vomiting Musculoskeletal: No: Back Pain Neurological: No: Headache Hematologic/Lymphatic: No: Symptoms Reported All Other Systems: Reviewed and Negative *Physical Exam - Vital Signs Last Vital Signs Temp Pulse Resp BP Pulse Ox 98.8 F 90 20 173/99 98 04/04/18 10:04 04/04/18 10:04 04/04/18 10:04 04/04/18 10:04 04/04/18 10:04 - Physical Exam HEENT: negative: Normal ENT Inspection Respiratory/Chest: positive: Lungs Clear, Normal Breath Sounds Cardiovascular: positive: Regular Rhythm, Regular Rate. negative: S1, S2 Gastrointestinal/Abdominal: positive: Normal Bowel Sounds, Tender (mild epigastric ttp. ). negative: Flat, Soft Musculoskeletal: positive: Normal Inspection. negative: CVA Tenderness Extremity: positive: Normal Capillary Refill, Normal Inspection Integumentary: positive: Normal Color, Dry, Warm Neurologic: positive: Fully Oriented, Alert, Normal Mood/Affect Heart Score/ECG Review #1 General ECG Interpretation: Sinus Rhythm, Normal Rate, Normal Intervals, No acute ischemic changes Compared to previous ECG there are: No significant change (compare 04/03/18) Medical Decision Making - Medical Decision Making 04/04/18 10:11 Similar to prior presentations patient has had multiple presentations in the last several months was just discharged on the night prior has had multiple repetitive imaging including 2 CTs in the last 6 months and a recent ultrasound the abdomen plan antiemetics GI prophylaxis and outpatient referral for gastroenterology *DC/Admit/Observation/Transfer Diagnosis at time of Disposition: Gastritis, Cannabis dependence, uncomplicated, Cannabis hyperemesis syndrome concurrent with and due to cannabis abuse - Discharge Dispostion Disposition: HOME Condition at time of disposition: Improved - Referrals Referrals: Rick Weeks MD [Staff Physician] - - Patient Instructions Printed Discharge Instructions: DI for Vomiting -- Adult, Heartburn -- Overview Additional Instructions: you should follow up with gastroenterology call to schedule you should take protonix 40 mg daily. can use chewable pepcid for acute pain from heartburn and maalox - Post Discharge Activity
[2018-04-04] MEDS ORDERED: LIDOCAINE VISCOUS 2% ORAL/TOP 20 ML UNIT-DOSE CUP ONE (10:30)
[2018-04-04] MEDS ORDERED: ONDANSETRON *ODT* 4 MG TABLET ONE (10:30)
[2018-04-04] MEDS ORDERED: PANTOPRAZOLE 40 MG TABLET (FP) ONE (10:30)
--- NOTE | 2018-04-04 12:11 | EKG ---
Test Reason : Blood Pressure : / mmHG Vent. Rate : 085 BPM Atrial Rate : 085 BPM P-R Int : 118 ms QRS Dur : 076 ms QT Int : 388 ms P-R-T Axes : 053 071 058 degrees QTc Int : 461 ms NORMAL SINUS RHYTHM MODERATE VOLTAGE CRITERIA FOR LVH, MAY BE NORMAL VARIANT BORDERLINE ECG WHEN COMPARED WITH ECG OF 03-APR-2018 08:48, NO SIGNIFICANT CHANGE WAS FOUND Confirmed by MD JULIA, STEF ([id number]) on 04/04/2018 12:11:15 PM Referred By: Confirmed By:STEF DUMONT MD
== END 2018-04-04 11:39 | disposition home or self-care (01) ==
LOC: JER 09:47
DX: G43.A0 Cyclical vomiting, in migraine, not intractable (principal); T40.7X5A Adverse effect of cannabis (derivatives), initial encounter; Y92.238 Other place in hospital as the place of occurrence of the external cause; I10 Essential (primary) hypertension; K21.9 Gastro-esophageal reflux disease without esophagitis; B18.2 Chronic viral hepatitis C; F31.9 Bipolar disorder, unspecified; F17.210 Nicotine dependence, cigarettes, uncomplicated
CPT/HCPCS: 93005; 93010; 99282-25; Q0162

== ENCOUNTER 2018-04-05 09:10 | Emergency (ER) | payer OTHER ==
[2018-04-05 09:25] VITALS: BMI 22.4
--- NOTE | 2018-04-05 10:45 | PDOC ---
History of Present Illness - General History Source: Patient Exam Limitations: No Limitations - History of Present Illness Initial Comments: 04/05/18 11:00 The patient is a 47 year old female, with a significant past medical history of polysubstance abuse(ETOH abuse on 30 mg Methadone daily), bipolar disorder, and cyclical vomiting secondary to Marijuana use, who presents to the emergency department from [facility] for evaluation of nausea, vomiting, and epigastric pain since yesterday. Patient states she was in the ED yesterday 04/04/18 with similar symptoms, where she was given Zofran, Malox, and Protonix with relief of symptoms. However, today while at the Methadone clinic patient reports she redeveloped her symptoms. Patient was previously admitted on 04/02/18 for similar complaints. Patient states she was sent from the Methadone clinic, because she is unable to quit drinking on her own and needs inpatient detox. Patient denies any fever, chills, cough, headache, dizziness, diaphoresis, or tremors. She denies any chest pain, shortness of breath, diaphoresis, or palpitations. She denies any dysuria, hematuria, frequency, or urgency. Allergies: Metoclopramide HCl, Prochlorperazine HCl, haloperidol Past Surgical History: None reported Social History: Marijuana use. ETOH abuse. <Panchito Das - Last Filed: 04/05/18 11:11> <Nain Baldwin - Last Filed: 04/05/18 13:16> - General Chief Complaint: Pain Stated Complaint: INTOX Time Seen by Provider: 04/05/18 10:16 Past History <Panchito Das - Last Filed: 04/05/18 11:11> - Past Medical History Anemia: No Asthma: No Cancer: No Cardiac Disorders: No CVA: No COPD: No CHF: No Dementia: No Diabetes: No GI Disorders: Yes (pancreatitis, GERD) Disorders: No HTN: Yes Hypercholesterolemia: No Kidney Stones: No Liver Disease: Yes (hepatitis) Psychiatric Problems: Yes (bipolar) Seizures: No Thyroid Disease: No - Surgical History Abdominal Surgery: No Appendectomy: No Cardiac Surgery: No Cholecystectomy: No Lung Surgery: No Neurologic Surgery: No Orthopedic Surgery: No - Reproductive History (#): 13 Para: 11 PID: No - Immunization History Immunization Up to Date: No - Suicide/Smoking/Psychosocial Hx Smoking History: Current some day smoker Have you smoked in the past 12 months: Yes Number of Cigarettes Smoked Daily: 1 Cigars Per Day: 0 Information on smoking cessation initiated: No 'Breaking Loose' booklet given: 04/02/18 Hx Alcohol Use: Yes Drug/Substance Use Hx: Yes Substance Use Type: Alcohol, Marijuana Hx Substance Use Treatment: Yes (MMTP) <Nain Baldwin - Last Filed: 04/05/18 13:16> - Past Medical History Allergies/Adverse Reactions: Allergies Allergy/AdvReac Type Severity Reaction Status Date / Time metoclopramide HCl Allergy Severe dystonic Verified 04/05/18 09:20 [From Reglan] reaction prochlorperazine maleate Allergy Severe DYSTONIA Verified 04/05/18 09:20 [From Compazine] haloperidol [From Haldol] Allergy Verified 04/05/18 09:20 Home Medications: Ambulatory Orders Divalproex Sodium [Depakote] 250 mg PO BID #60 tablet. 02/06/18 Gabapentin 100 mg PO TID #90 capsule 02/06/18 Folic Acid - 1 mg PO DAILY tablet 03/06/18 Vitamins (Sjr) - 1 tab PO DAILY tablet 03/06/18 Thiamine HCl [Vitamin B1 -] 100 mg PO HS tablet 03/06/18 Methadone (Detox) [Dolophine -] 30 mg PO DAILY@0600 tablet MDD 50 04/03/18 Pantoprazole Sodium [Protonix] 40 mg PO BID #60 tablet. 04/04/18 Ondansetron [Zofran Odt -] 4 mg SL TID #21 od.tablet 04/05/18 Pantoprazole Sodium [Protonix -] 40 mg PO DAILY #30 tablet.ec 04/05/18 Review of Systems - Review of Systems Able to Perform ROS?: Yes Comments:: 04/05/18 11:11 CONSTITUTIONAL: No fever, no chills, no fatigue EYES: No visual changes ENT: No ear pain, no sore throat CARDIOVASCULAR: No chest pain, no palpitations RESPIRATORY: No cough, no SOB GI: +Epigastric pain, nausea, vomiting. No constipation, no diarrhea GENITOURINARY: No dysuria, no frequency, no hematuria MUSCULOSKELETAL: No back pain, no joint pain, no myalgias SKIN: No rash NEURO: No headache <Panchito Das - Last Filed: 04/05/18 11:11> *Physical Exam - Vital Signs Last Vital Signs Temp Pulse Resp BP Pulse Ox 98.7 F 83 16 162/105 100 04/05/18 09:10 04/05/18 09:10 04/05/18 09:10 04/05/18 09:10 04/05/18 09:10 - Physical Exam Comments: 04/05/18 11:12 ADULT EXAMINATION CONSTITUTIONAL: Well-appearing; well-nourished; in no apparent distress HEAD: Normocephalic; atraumatic EYES: PERRL; EOM intact ENMT: External appears normal; normal oropharynx NECK: Supple; non-tender; no cervical lymphadenopathy. CARD: Normal S1, S2; no murmurs, rubs, or gallops RESP: Normal chest excursion with respiration; breath sounds clear and equal bilaterally; no wheezes, rhonchi, or rales ABD: +Epigastric tenderness. Soft, non-distended; no palpable organomegaly, no palpable hernias EXT: Normal ROM in all four extremities; non-tender to palpation; distal pulses intact SKIN: Warm, dry, no rash NEURO: No focal neurological deficiencies. <ThiagoReneenellychester - Last Filed: 04/05/18 11:11> - Vital Signs Last Vital Signs Temp Pulse Resp BP Pulse Ox 98.7 F 83 16 162/105 100 04/05/18 09:10 04/05/18 09:10 04/05/18 09:10 04/05/18 09:10 04/05/18 09:10 <Nain Baldwin - Last Filed: 04/05/18 13:16> ED Treatment Course - LABORATORY CBC & Chemistry Diagram: 04/05/18 12:00 04/05/18 12:00 <Nain Baldwin - Last Filed: 04/05/18 13:16> Medical Decision Making - Medical Decision Making 04/05/18 13:13 47-year-old female with history of alcohol abuse, currently on methadone for previous narcotic abuse presents to the ER for epigastric discomfort with nausea and nonbloody nonbilious vomiting for the past several days. Patient seen in this ER 24 hours previously for similar symptoms. In the ER, patient is awake and alert, nontoxic-appearing, with minimal epigastric discomfort only. CBC/CMP/lipase within normal limit. Patient received a GI cocktail with viscous lidocaine with complete resolution of her symptoms. Patient tolerates by mouth. Will discharge with Zofran and Protonix with GI follow-up. <Nain Baldwin - Last Filed: 04/05/18 13:16> *DC/Admit/Observation/Transfer - Attestations Scribe Attestion: 04/05/18 11:12 Documentation prepared by Panchito Das, acting as emergency medical technician for Nain Baldwin MD. <Panchito Das - Last Filed: 04/05/18 11:11> - Attestations Physician Attestion: 04/05/18 13:12 The documentation was prepared by the scribe under my direct supervision. I have reviewed the documentation which correctly represents the findings, medical decision-making and critical action taken by me. <Nain Baldwin - Last Filed: 04/05/18 13:16> Diagnosis at time of Disposition: Epigastric pain Nausea and vomiting Qualifiers: Vomiting type: unspecified Vomiting Intractability: non-intractable Qualified Code(s): R11.2 - Nausea with vomiting, unspecified - Discharge Dispostion Disposition: HOME Condition at time of disposition: Stable - Referrals Referrals: Ketan Gudino MD [Staff Physician] - - Patient Instructions Printed Discharge Instructions: DI for Epigastric Pain, Nausea and Vomiting- Adult, DI for Alcohol Abuse
[2018-04-05] MEDS ORDERED: PANTOPRAZOLE 40 MG TABLET (FP) PO ONE (10:58)
[2018-04-05] MEDS ORDERED: ONDANSETRON *ODT* 4 MG TABLET SL ONE (10:59)
[2018-04-05] MEDS ORDERED: LIDOCAINE VISCOUS 2% ORAL/TOP 20 ML UNIT-DOSE CUP MM ONE (10:59)
[2018-04-05] MEDS ORDERED: MAG HYDROX/AL HYDROX/SIMETH -MYLANTA- ORAL SUSPENSION PO ONE (11:00)
[2018-04-05] MEDS ORDERED: PANTOPRAZOLE 40 MG TABLET (FP) ONE (11:52)
[2018-04-05] MEDS ORDERED: LIDOCAINE VISCOUS 2% ORAL/TOP 20 ML UNIT-DOSE CUP ONE (11:52)
[2018-04-05] MEDS ORDERED: MAG HYDROX/AL HYDROX/SIMETH 30 ML UNIT-DOSE CUP ONE (11:53)
[2018-04-05] MEDS ORDERED: ONDANSETRON 8 MG TABLET (FP) PO ONE (11:53)
[2018-04-05 12:10] LABS: BASO % 0.6 % (0-2.0); EOS % 0.1 % (0-4.5); HEMATOCRIT 40.3 % (32.4-45.2); HEMOGLOBIN 13.8 GM/dL (10.7-15.3); MCH 33.9 pg (25.7-33.7); MCHC 34.3 g/dl (32.0-36.0); MEAN CELL VOLUME 98.8 fl (80-96); MEAN PLT VOLUME 10.1 fl (7.5-11.1); MONO % 5.4 % (3.8-10.2); NEUT % 71.9 % (42.8-82.8); PLATELET COUNT 130 K/MM3 (134-434); RBC 4.08 M/mm3 (3.60-5.2); RDW 13.7 % (11.6-15.6); WHITE BLOOD COUNT 6.2 K/mm3 (4.0-10.0)
[2018-04-05 12:36] LABS: ALBUMIN 3.4 g/dl (3.4-5.0); ANION GAP 7 (8-16); BILIRUBIN,TOTAL 0.6 mg/dL (0.2-1.0); BLOOD UREA NITROGEN 12 mg/dL (7-18); CALCIUM 8.8 mg/dL (8.5-10.1); CHLORIDE 104 mmol/L (98-107); CO2 25 mmol/L (21-32); CREATININE 0.7 mg/dL (0.55-1.02); GLUCOSE,RANDOM 109 mg/dL (74-106); POTASSIUM 3.9 mmol/L (3.5-5.1); SGOT/AST 32 U/L (15-37); SGPT/ALT 37 U/L (12-78); SODIUM 136 mmol/L (136-145)
[2018-04-05 12:37] LABS: ALK PHOS 85 U/L (45-117); TOT PROT 7.5 g/dl (6.4-8.2)
[2018-04-05 12:41] LABS: LIPASE 292 U/L (73-393)
[2018-04-05 14:14] VITALS: BP 117/67; PULSE 87; TEMP 98.6
== END 2018-04-05 14:00 | disposition home or self-care (01) ==
LOC: JER 09:10
DX: R10.13 Epigastric pain (principal); R11.2 Nausea with vomiting, unspecified; F10.10 Alcohol abuse, uncomplicated; F12.90 Cannabis use, unspecified, uncomplicated; F11.20 Opioid dependence, uncomplicated; F31.9 Bipolar disorder, unspecified
CPT/HCPCS: 36415; 80053; 83690; 85025; 99283-25; Q0162

== ENCOUNTER 2018-04-12 16:06 | Inpatient (IN) | payer OTHER ==
[2018-04-12 17:58] VITALS: BMI 21.9
--- NOTE | 2018-04-12 19:34 | HP ---
CIWA Score - CIWA Score Nausea/Vomitin-No Nausea/No Vomiting Muscle Tremors: 2 Anxiety: 3 Agitation: 4-Moderately Restless Paroxysmal Sweats: 1-Minimal Palms Moist Orientation: 0-Oriented Tacttile Disturbances: 0-None Auditory Disturbances: 0-None Visual Disturbances: 1-Very Mild Sensitivity Headache: 2-Mild CIWA-Ar Total Score: 13 Admission ROS S - HPI Chief Complaint: " this alcohol is killing me, I need to get clean" Allergies/Adverse Reactions: Allergies Allergy/AdvReac Type Severity Reaction Status Date / Time metoclopramide HCl Allergy Severe dystonic Verified 04/12/18 18:39 [From Reglan] reaction prochlorperazine maleate Allergy Severe DYSTONIA Verified 04/12/18 18:39 [From Compazine] haloperidol [From Haldol] Allergy Verified 04/12/18 18:39 History of Present Illness: 47 yo female with hx of nicotine and alcohol dependence is here seeking detox, this one of multiple admissions to [facility]. utox positive BZO and MTD, denies hx of benzo use. Linked to MMTP at [facility] on 30mg, daily, last medicated today. Reports suffered a fall this past Tuesday was taken to [facility] and suffered a laceration on her forehead which required stitches. Patient reports ED visit to [facility] Dariusz 04/02/18, 04/04/18, 04/05/18 d/t alcohol withdrawal. Denies hx of seizures, reports hx of blackouts secondary to drinking. PMHX: bipolar, depression and anxiety. Denies suicidal / homicidal ideation or hx of suicide attempts. Longest period of sobriety 2 years. Last detox [facility] 01/23/18 - 01/27/18. Exam Limitations: No Limitations - Ebola screening Have you traveled outside of the country in the last 21 days: No (N) Have you had contact with anyone from an Ebola affected area: No Have you been sick,other than usual withdrawal symptoms: No Do you have a fever: No - Review of Systems Constitutional: Chills, Loss of Appetite, Changes in sleep, Unintentional Wgt. Loss (20 lbs over in the past month, attributes to alcohol consumption) EENT: reports: Blurred Vision (wears glasses) Respiratory: reports: SOB with Exertion Cardiac: reports: No Symptoms Reported GI: reports: Constipated (last BM this AM), Poor Appetite, Poor Fluid Intake : reports: No Symptoms Reported Musculoskeletal: reports: Back Pain, Joint Pain Integumentary: reports: Bruising (right forearm secondary to fall), Lesions ( forehead, nose and right knee secondary to fall) Neuro: reports: Headache Endocrine: reports: Increased Thirst Hematology: reports: No Symptoms Reported Psychiatric: reports: Orientated x3, Anxious Other Systems: Reviewed and Negative Patient History - Patient Medical History Hx Anemia: No Hx Asthma: No Hx Chronic Obstructive Pulmonary Disease (COPD): No Hx Cancer: No Hx Cardiac Disorders: No Hx Congestive Heart Failure: No Hx Hypertension: No Hx Hypercholesterolemia: No Hx Pacemaker: No HX Cerebrovascular Accident: No Hx Seizures: No Hx Dementia: No Hx Diabetes: No Hx Gastrointestinal Disorders: No Hx Liver Disease: Yes (hepatitis C, not treated ) Hx Genitourinary Disorders: No Hx Sexually Transmitted Disorders: No Hx Renal Disease (ESRD): No Hx Thyroid Disease: No Hx Human Immunodeficiency Virus (HIV): No Hx Hepatitis C: Yes Hx Depression: Yes Hx Suicide Attempt: No Hx Bipolar Disorder: Yes Hx Schizophrenia: No - Patient Surgical History Past Surgical History: No Hx Neurologic Surgery: No Hx Cataract Extraction: No Hx Cardiac Surgery: No Hx Lung Surgery: No Hx Breast Surgery: No Hx Breast Biopsy: No Hx Abdominal Surgery: No Hx Appendectomy: No Hx Cholecystectomy: No Hx Genitourinary Surgery: No Hx Section: Yes (x2) Hx Orthopedic Surgery: No Hx Hysterectomy: No Other Surgical History: age 9 - abscess/tumor, benign per pt Anesthesia Reaction: No - PPD History Previous Implant?: Yes Documented Results: Negative w/proof Date: 11/07/17 Results: 0mm PPD to be Administered?: No - Reproductive History Patient is a Female of Child Bearing Age (11 -55 yrs old): Yes Last Menstrual Period: 04/01/18 Patient : No - Smoking Cessation Smoking history: Current some day smoker Have you smoked in the past 12 months: Yes Aproximately how many cigarettes per day: 4 Cigars Per Day: 0 Hx Chewing Tobacco Use: No Initiated information on smoking cessation: Yes 'Breaking Loose' booklet given: 04/12/18 - Substance & Tx. History Hx Alcohol Use: Yes Hx Substance Use: No Substance Use Type: Alcohol Hx Substance Use Treatment: Yes (Last detox [facility] 01/23/18 - 01/27/18) - Substances Abused Alcohol Route: Oral Frequency: Daily Amount used: 1 gallon of vodka Age of first use: 17 Date of Last Use: 04/12/18 Marijuana/Hashish Route: Smoking Frequency: 3-6 times per week Amount used: 2 puff Age of first use: 9 Date of Last Use: 04/11/18 Family Disease History - Family Disease History Family Disease History: Diabetes: Grandparent (mgm - dm, htn), Other: Father ( CVA), Mother (alive, well), Brother ( AIDS), Sister ( THROAT CA) Admission Physical Exam [facility] - Vital Signs Vital Signs: Vital Signs - 24 hr 04/12/18 17:51 Temperature 99.6 F Pulse Rate 87 Respiratory 18 Rate Blood Pressure 124/85 - Physical General Appearance: Yes: Appropriately Dressed, Mild Distress, Thin, Sweating, Anxious, Other (restless) HEENTM: Yes: Hearing grossly Normal, Normal ENT Inspection, Normocephalic, Normal Voice, PARTH, Pharynx Normal, Tm's normal, Other (wears glasses) Respiratory: Yes: Chest Non-Tender, Lungs Clear, Normal Breath Sounds, No Respiratory Distress, No Accessory Muscle Use, Surgical Scar Neck: Yes: Trachea in good position Breast: Yes: Breast Exam Deferred Cardiology: Yes: Regular Rhythm, Regular Rate Abdominal: Yes: Normal Bowel Sounds, Non Tender, Flat, Soft Genitourinary: Yes: Within Normal Limits Back: Yes: Normal Inspection Musculoskeletal: Yes: full range of Motion, Gait Steady, Pelvis Stable, Back pain Extremities: Yes: Normal Capillary Refill, Normal Inspection, Normal Range of Motion Neurological: Yes: purchase order checker II-XII NML intact, Fully Oriented, Alert, Motor Strength 5/5, Depressed Affect Integumentary: Yes: Normal Color, Warm, Moist, Other (ecchymosis on the right fore arm, secondary to fall. Laceration on forehead with stitches in place, no sign of infection, laceration on nose, laceration on right knee no sign of infection) Lymphatic: Yes: Within Normal Limits - Diagnostic (1) Headache Current Visit: Yes Status: Acute Qualifiers: Headache type: unspecified Headache chronicity pattern: acute headache (2) Laceration Current Visit: Yes Status: Acute (3) Depressed mood Current Visit: Yes Status: Acute (4) Alcohol dependence with uncomplicated withdrawal Current Visit: Yes Status: Acute (5) GERD (gastroesophageal reflux disease) Current Visit: Yes Status: Chronic Qualifiers: (6) Hepatitis C Current Visit: Yes Status: Chronic Qualifiers: Viral hepatitis chronicity: chronic Hepatic coma status: without hepatic coma Qualified Code(s): B18.2 - Chronic viral hepatitis C (7) Opioid dependence on agonist therapy Current Visit: Yes Status: Chronic Comment: on methadone 30 mg qd, dose pending verification Cleared for Admission [facility] - Detox or Rehab [facility] Level of Care: Medically Managed Detox Regimen/Protocol: Librium [facility] Breath Alcohol Content Breath Alcohol Content: 0.207 Urine Pregancy Test - Result Urine Test Results: Negative- NO Line Present Urine Drug Screen - Results Drug Screen Negative: Yes Urine Drug Screen Results: BZO-Benzodiazepines, MTD-Methadone
[2018-04-12] MEDS ORDERED: chlordiazePOXIDE HCL 25 MG CAPSULE PO ONE (19:43)
[2018-04-12] MEDS ORDERED: ACETAMINOPHEN 325 MG TABLET (FP) PO PRN (19:43)
[2018-04-12] MEDS ORDERED: MAGNESIUM CITRATE 300 ML BOTTLE PO PRN (19:43)
[2018-04-12] MEDS ORDERED: MAG HYDROX/AL HYDROX/SIMETH 30 ML UNIT-DOSE CUP PO PRN (19:43)
[2018-04-12] MEDS ORDERED: MAGNESIUM HYDROX 2400MG/30ML ORAL SUSPENSION 30 ML CUP PO PRN (19:43)
[2018-04-12] MEDS ORDERED: guaiFENesin/D-METHORPHAN HB 10 ML UNIT-DOSE CUPS PO PRN (19:43)
[2018-04-12] MEDS ORDERED: hydrOXYzine PAMOATE 50 MG CAPSULE (FP) PO PRN (19:43)
[2018-04-12] MEDS ORDERED: chlordiazePOXIDE HCL 25 MG CAPSULE PO PRN (19:43)
[2018-04-12] MEDS ORDERED: LOPERAMIDE HCL 2 MG CAPSULE PO PRN (19:43)
[2018-04-12] MEDS ORDERED: P-EPHED 60MG/TRIPROLIDI 2.5MG TABLET PO PRN (19:43)
[2018-04-12] MEDS ORDERED: MENTHOL/PHENOL 1 EACH UD MM PRN (19:43)
[2018-04-12] MEDS ORDERED: MELATONIN 5 MG TABLETS PO PRN (22:00)
[2018-04-12] MEDS ORDERED: BACITRACIN 15 GM TUBE TOPICAL OINTMENT TP SCH (22:00)
[2018-04-12] MEDS: THIAMINE HCL 100 MG TABLET (FP) PO SCH (22:32)
[2018-04-12] MEDS: BACITRACIN 0.9 GM PACKET TP SCH (22:32)
[2018-04-12] MEDS: GABAPENTIN 100 MG CAPSULE (FP) PO SCH (22:34)
[2018-04-12] MEDS: chlordiazePOXIDE HCL 25 MG CAPSULE PO SCH (22:34)
[2018-04-12] MEDS: IBUPROFEN 400 MG TABLET (FP) PO PRN (22:38)
[2018-04-12] MEDS: ONDANSETRON *ODT* 4 MG TABLET SL SCH (22:40)
[2018-04-13 00:15] LABS: URINE APPEARANCE CLEAR; URINE BILIRUBIN NEGATIVE (<2.0 mg/dL); URINE COLOR STRAW; URINE GLUCOSE (UA) NEGATIVE (NEGATIVE); URINE KETONE NEGATIVE (NEGATIVE); URINE LEUK ESTERASE NEGATIVE (NEGATIVE); URINE NITRITE NEGATIVE (NEGATIVE); URINE PROTEIN NEGATIVE (NEGATIVE); URINE UROBILINOGEN NEGATIVE mg/dL (0.2-1.0)
[2018-04-13] MEDS: chlordiazePOXIDE HCL 25 MG CAPSULE PO SCH ×4 (09:28→22:36)
[2018-04-13] MEDS: GABAPENTIN 100 MG CAPSULE (FP) PO SCH ×3 (09:29→22:35)
[2018-04-13] MEDS: ONDANSETRON *ODT* 4 MG TABLET SL SCH ×3 (09:29→22:40)
[2018-04-13 10:23] LABS: HEMATOCRIT 34.1 % (32.4-45.2); HEMOGLOBIN 11.6 GM/dL (10.7-15.3); MCH 34.1 pg (25.7-33.7); MCHC 34.1 g/dl (32.0-36.0); MEAN CELL VOLUME 100.2 fl (80-96); MEAN PLT VOLUME 9.8 fl (7.5-11.1); PLATELET COUNT 144 K/MM3 (134-434); RDW 13.5 % (11.6-15.6)
[2018-04-13] MEDS: PRENATAL VITAMINS W/ FOLIC ACID TABLET (FP) PO SCH (10:45)
[2018-04-13] MEDS: BACITRACIN 0.9 GM PACKET TP SCH ×2 (10:45→22:35)
[2018-04-13] MEDS: NICOTINE 14 MG/24 HOURS TOPICAL PATCH TD SCH (10:48)
--- NOTE | 2018-04-13 10:53 | PN ---
S CIWA - CIWA Score Nausea/Vomitin-Mild Nausea/No Vomiting Muscle Tremors: 1-None Visible, but [place] Anxiety: 1-Mildly Anxious Agitation: 0-Normal Activity Paroxysmal Sweats: 1-Minimal Palms Moist Orientation: 0-Oriented Tacttile Disturbances: 0-None Auditory Disturbances: 0-None Visual Disturbances: 0-None Headache: 0-None Present CIWA-Ar Total Score: 4 BHS Progress Note (SOAP) Subjective: PATIENT ADMITTED YESTERDAY FOR ETOH WITHDRAWALS. C/O MILD SWEATING, NAUSEA AND LOOSE BM X ONE AND MILD TREMORS. DENIES CP, SOB AND DIZZINESS. Objective: 04/13/18 10:51 Vital Signs Temperature 98.2 F 04/13/18 09:30 Pulse Rate 84 04/13/18 10:00 Respiratory Rate 18 04/13/18 10:00 Blood Pressure 106/65 04/13/18 09:30 O2 Sat by Pulse Oximetry (%) Laboratory Tests 04/12/18 04/13/18 23:50 08:50 WBC 5.0 RBC 3.40 L Hgb 11.6 D Hct 34.1 D MCV 100.2 H MCH 34.1 H MCHC 34.1 RDW 13.5 Plt Count 144 MPV 9.8 Urine Color Straw Urine Appearance Clear Urine pH 7.0 Ur Specific Lindsey 1.004 Urine Protein Negative Urine Glucose (UA) Negative Urine Ketones Negative Urine Blood Negative Urine Nitrite Negative Urine Bilirubin Negative Urine Urobilinogen Negative Ur Leukocyte Esterase Negative OBJ: SKIN: WARM AND MOIST CAR: S1S2 RESP: CTA BL EXT: MILDLY TREMORS FELT Assessment: 04/13/18 10:53 A/P: ETOH DETOX WITHDRAWAL SYNDROME Plan: CONTINUE TREATMENT ENCOURAGE ORAL HYDRATION PRN IMMODIUM ORDERED CONTINUE TO MONITOR CLINICALLY
[2018-04-13] MEDS: METHADONE HCL 10 MG TABLET PO SCH (10:54)
--- NOTE | 2018-04-13 11:17 | EKG ---
Test Reason : Blood Pressure : / mmHG Vent. Rate : 085 BPM Atrial Rate : 085 BPM P-R Int : 144 ms QRS Dur : 076 ms QT Int : 374 ms P-R-T Axes : 067 055 050 degrees QTc Int : 445 ms NORMAL SINUS RHYTHM SEPTAL INFARCT , AGE UNDETERMINED ABNORMAL ECG WHEN COMPARED WITH ECG OF 04-APR-2018 11:01, NO SIGNIFICANT CHANGE WAS FOUND Confirmed by YAMIL SÁNCHEZ, KELLY ([id number]) on 04/13/2018 11:17:23 AM Referred By: Confirmed By:KELLY LOBO MD
--- NOTE | 2018-04-13 11:44 | CONSULT ---
[facility] Psychiatric Consult - Data Date of interview: 04/13/18 Admission source: [facility] Identifying data: This is 47 years old female, single, living with boyfriend, unemployed, on PA, with history of Bipolar Disorder, with history of nicotine and alcohol dependence is here seeking detox. Patient has multiple lacerations on her face, denies psychiatric hospitalization history, denies suyicidal, homicidal history. Substance Abuse History: Smoking history: Current some day smoker. Have you smoked in the past 12 months: Yes. Aproximately how many cigarettes per day: 4. Cigars Per Day: 0. Hx Chewing Tobacco Use: No. Initiated information on smoking cessation: Yes. 'Breaking Loose' booklet given: 04/12/18. - Substance & Tx. History. Hx Alcohol Use: Yes. Hx Substance Use: No. Substance Use Type : Alcohol. Hx Substance Use Treatment: Yes (Last detox [facility] 01/23/18 - 01/27/18) . - Substances Abused. Alcohol. Route: Oral. Frequency: Daily. Amount used: 1 gallon of vodka. Age of first use: 17. Date of Last Use: 04/12/18. * * Marijuana/Hashish. Route: Smoking. Frequency: 3-6 times per week. Amount used: 2 puff. Age of first use: 9. Date of Last Use: 04/11/18 Medical History: COPD, HEADACHE, HEAD TRAUMA, HepC+, MMTP 30mg per day, Gastritis, Pancreatitis. Psychiatric History: Patient reports history of Biupolar disorder, reports taking priorm to admission: Depakote 250mg po bid. Trazodone 50mg po qhs. Seroquel 300mg po qhs. Gabapentin 100mg po tid Physical/Sexual Abuse/Trauma History: Unclear Additional Comment: Depakote 250mg po bid. Trazodone 50mg po qhs. Seroquel 300mg po qhs. Gabapentin 100mg po tid Mental Status Exam - Mental Status Exam Alert and Oriented to: Person Cognitive Function: Fair Patient Appearance: Unkempt Mood: Anxious, Irritable Affect: Labile Patient Behavior: Impulsive, Talkative, Cooperative Speech Pattern: Excessive Voice Loudness: Mildly Loud Thought Process: Goal Oriented Thought Disorder: Being Controlled Hallucinations: Denies Suicidal Ideation: Denies Homicidal Ideation: Denies Insight/Judgement: Fair Sleep: Difficulty falling asleep Appetite: Weight loss Muscle strength/Tone: Mild Hypertonicity Gait/Station: Normal Additional Comments: Depakote 250mg po bid. Trazodone 50mg po qhs. Seroquel 300mg po qhs. Gabapentin 100mg po tid Psychiatric Findings - Problem List ([place] 1, 2,3) (1) Alcohol dependence with uncomplicated withdrawal Current Visit: Yes Status: Acute (2) Headache Current Visit: Yes Status: Acute Qualifiers: Headache type: unspecified Headache chronicity pattern: acute headache (3) Laceration Current Visit: Yes Status: Acute (4) GERD (gastroesophageal reflux disease) Current Visit: Yes Status: Chronic Qualifiers: (5) Hepatitis C Current Visit: Yes Status: Chronic Qualifiers: Viral hepatitis chronicity: chronic Hepatic coma status: without hepatic coma Qualified Code(s): B18.2 - Chronic viral hepatitis C (6) Opioid dependence on agonist therapy Current Visit: Yes Status: Chronic Comment: on methadone 30 mg qd, dose pending verification (7) Alcohol intoxication Current Visit: No Status: Acute (8) Epigastric pain Current Visit: No Status: Acute (9) Nausea and vomiting Current Visit: No Status: Acute Qualifiers: Vomiting type: unspecified Vomiting Intractability: non-intractable Qualified Code(s): R11.2 - Nausea with vomiting, unspecified (10) Bipolar disorder Current Visit: No Status: Chronic Comment: As per self-report.Known to [facility] clinic.Prescribed seroquel.Non-adherent to medications. (11) Cannabis dependence, uncomplicated Current Visit: No Status: Chronic (12) Dilated pancreatic duct Current Visit: No Status: Chronic (13) Nicotine dependence Current Visit: No Status: Chronic Qualifiers: (14) Pancreatitis Current Visit: No Status: Chronic - Initial Treatment Plan Initial Treatment Plan: Depakote 250mg po bid. Trazodone 50mg po qhs. Seroquel 300mg po qhs. Gabapentin 100mg po tid. Blood Depakote level
--- NOTE | 2018-04-13 13:17 | PN ---
S Progress Note Note: reported fell 04/08/18 treated at [facility] suture forehead laceration negative CT of the head forehead suture intact tender no bleeding no drainage multiple superficial skin facial abrasion begin amoxicillin begin wound care
[2018-04-13 13:26] LABS: ALBUMIN 2.8 g/dl (3.4-5.0); ALK PHOS 76 U/L (45-117); ANION GAP 9 (8-16); BILIRUBIN,TOTAL 0.3 mg/dL (0.2-1.0); BLOOD UREA NITROGEN 15 mg/dL (7-18); CALCIUM 8.2 mg/dL (8.5-10.1); CHLORIDE 104 mmol/L (98-107); CO2 26 mmol/L (21-32); CREATININE 0.7 mg/dL (0.55-1.02); GLUCOSE,RANDOM 91 mg/dL (74-106); SGOT/AST 28 U/L (15-37); SGPT/ALT 30 U/L (12-78); SODIUM 139 mmol/L (136-145); TOT PROT 6.2 g/dl (6.4-8.2)
[2018-04-13] MEDS: IBUPROFEN 400 MG TABLET (FP) PO PRN ×2 (13:52→22:36)
[2018-04-13] MEDS: AMOXICILLIN 500 MG CAPSULE (FP) PO SCH ×2 (13:52→22:35)
[2018-04-13] MEDS: DIVALPROEX SODIUM 250 MG TABLET E.C. PO SCH ×2 (13:52→22:35)
[2018-04-13] MEDS: QUEtiapine FUMARATE 300 MG TABLET PO SCH (22:35)
[2018-04-13] MEDS: traZODone HCL 50 MG TABLET (FP) PO SCH (22:35)
[2018-04-13] MEDS: THIAMINE HCL 100 MG TABLET (FP) PO SCH (22:35)
[2018-04-14] MEDS ORDERED: ALBUTEROL SO4 0.083% IH SOL 2.5 MG/3 ML VIAL.NEB. NEB ONE (01:19)
[2018-04-14] MEDS: chlordiazePOXIDE HCL 25 MG CAPSULE PO SCH ×3 (05:29→18:25)
[2018-04-14] MEDS: ONDANSETRON *ODT* 4 MG TABLET SL SCH ×3 (05:29→23:02)
[2018-04-14] MEDS: GABAPENTIN 100 MG CAPSULE (FP) PO SCH ×3 (05:29→22:39)
[2018-04-14] MEDS: METHADONE HCL 10 MG TABLET PO SCH (05:29)
[2018-04-14] MEDS: DIVALPROEX SODIUM 250 MG TABLET E.C. PO SCH ×2 (10:49→22:39)
[2018-04-14] MEDS: PRENATAL VITAMINS W/ FOLIC ACID TABLET (FP) PO SCH (10:49)
[2018-04-14] MEDS: BACITRACIN 0.9 GM PACKET TP SCH ×2 (10:49→22:39)
[2018-04-14] MEDS: AMOXICILLIN 500 MG CAPSULE (FP) PO SCH ×2 (10:49→22:39)
[2018-04-14] MEDS: NICOTINE 14 MG/24 HOURS TOPICAL PATCH TD SCH (10:50)
[2018-04-14] MEDS: IBUPROFEN 400 MG TABLET (FP) PO PRN (14:09)
--- NOTE | 2018-04-14 15:16 | PN ---
S CIWA - CIWA Score Muscle Tremors: None Anxiety: 1-Mildly Anxious Agitation: 0-Normal Activity Paroxysmal Sweats: No Perspiration Orientation: 0-Oriented Tacttile Disturbances: 0-None Auditory Disturbances: 0-None Visual Disturbances: 0-None Headache: 0-None Present (pt states she is feeling anxious and is on seroquel and trazodone-)
--- NOTE | 2018-04-14 15:27 | PN ---
[facility] Progress Note (SOAP) Subjective: pt was admitted for alcohol detox after falling down while intoxicated- has multiple facial injuries, says she is feeling a little anxious this morning Objective: 04/14/18 15:23 Vital Signs - 24 hr 04/13/18 04/13/18 04/13/18 16:00 16:30 17:00 Temperature Pulse Rate 69 71 75 Respiratory 18 18 18 Rate Blood Pressure 04/13/18 04/13/18 04/13/18 17:30 17:32 18:00 Temperature 97.5 F L Pulse Rate 76 71 73 Respiratory 18 16 18 Rate Blood Pressure 92/58 04/13/18 04/13/18 04/13/18 19:00 19:30 20:00 Temperature Pulse Rate 68 73 71 Respiratory 18 18 18 Rate Blood Pressure 04/13/18 04/13/18 04/13/18 20:30 21:00 21:53 Temperature 98.2 F Pulse Rate 71 68 68 Respiratory 18 18 18 Rate Blood Pressure 111/70 04/14/18 04/14/18 04/14/18 00:30 01:39 03:30 Temperature 97.7 F Pulse Rate 101 H Respiratory 18 20 20 Rate Blood Pressure 87/72 04/14/18 04/14/18 04/14/18 07:32 09:47 14:00 Temperature 97.7 F 98.1 F 97.3 F L Pulse Rate 92 H 117 H 87 Respiratory 20 18 18 Rate Blood Pressure 104/63 90/51 98/56 Laboratory Tests 04/12/18 04/13/18 04/13/18 23:50 08:50 08:50 WBC 5.0 RBC 3.40 L Hgb 11.6 D Hct 34.1 D MCV 100.2 H MCH 34.1 H MCHC 34.1 RDW 13.5 Plt Count 144 MPV 9.8 Sodium Potassium Chloride Carbon Dioxide Anion Gap BUN Creatinine Creat Clearance w eGFR Random Glucose Calcium Total Bilirubin AST ALT Alkaline Phosphatase Total Protein Albumin Urine Color Straw Urine Appearance Clear Urine pH 7.0 Ur Specific [place] 1.004 Urine Protein Negative Urine Glucose (UA) Negative Urine Ketones Negative Urine Blood Negative Urine Nitrite Negative Urine Bilirubin Negative Urine Urobilinogen Negative Ur Leukocyte Esterase Negative Valproic Acid 9.3 L RPR Titer HIV 1&2 Antibody Screen HIV P24 Antigen 04/13/18 04/13/18 04/13/18 08:50 08:50 10:10 WBC RBC Hgb Hct MCV MCH MCHC RDW Plt Count MPV Sodium 139 Potassium 4.0 Chloride 104 Carbon Dioxide 26 Anion Gap 9 BUN 15 Creatinine 0.7 Creat Clearance w eGFR > 60 Random Glucose 91 Calcium 8.2 L Total Bilirubin 0.3 D AST 28 ALT 30 Alkaline Phosphatase 76 Total Protein 6.2 L Albumin 2.8 L Urine Color Urine Appearance Urine pH Ur Specific Crane Urine Protein Urine Glucose (UA) Urine Ketones Urine Blood Urine Nitrite Urine Bilirubin Urine Urobilinogen Ur Leukocyte Esterase Valproic Acid RPR Titer Nonreactive HIV 1&2 Antibody Screen Negative HIV P24 Antigen Negative 04/14/18 08:00 WBC RBC Hgb Hct MCV MCH MCHC RDW Plt Count MPV Sodium Potassium Chloride Carbon Dioxide Anion Gap BUN Creatinine Creat Clearance w eGFR Random Glucose Calcium Total Bilirubin AST ALT Alkaline Phosphatase Total Protein Albumin Urine Color Urine Appearance Urine pH Ur Specific Crane Urine Protein Urine Glucose (UA) Urine Ketones Urine Blood Urine Nitrite Urine Bilirubin Urine Urobilinogen Ur Leukocyte Esterase Valproic Acid 44.4 L RPR Titer HIV 1&2 Antibody Screen HIV P24 Antigen nl VS, with multiple healing wounds on face, walking in hallways, no evidence of withdrawal Sx Assessment: 04/14/18 15:24 Pt here for alcohol detox, and is on methadone 30mg OTP. Also has been seen by for anxiety, is on seroquel and trazodone and prn vistaril for anxiety Current Medications Generic Name Dose Route Start Last Admin Trade Name Freq PRN Reason Stop Dose Admin Acetaminophen 650 mg 04/12/18 19:43 Tylenol - PO Q4H PRN FEVER Al Hydroxide/Mg Hydroxide 30 ml 04/12/18 19:43 Mylanta Oral Suspension - PO Q6H PRN DYSPEPSIA Amoxicillin 500 mg 04/13/18 13:30 04/14/18 10:49 Amoxicillin - PO 04/20/18 13:29 500 mg BID GONZALEZ Administration Bacitracin 0.9 gm 04/12/18 22:00 04/14/18 10:49 Bacitracin - TP 0.9 gm BID GONZALEZ Administration Chlordiazepoxide HCl 25 mg 04/13/18 23:00 04/14/18 10:50 Librium - PO 04/14/18 17:01 25 mg [id number] GONZALEZ Administration Chlordiazepoxide HCl 15 mg 04/14/18 23:00 Librium - PO 04/15/18 17:01 [id number] GONZALEZ Chlordiazepoxide HCl 25 mg 04/12/18 19:43 Librium - PO 04/15/18 19:42 Q4H PRN WITHDRAWAL(CONT SUBST) Chlordiazepoxide HCl 10 mg 04/15/18 23:00 Librium - PO 04/16/18 17:01 [id number] GONZALEZ Divalproex Sodium 250 mg 04/13/18 12:45 04/14/18 10:49 Depakote - PO 250 mg BID GONZALEZ Administration Eucalyptus/Menthol/Phenol/Sorbitol 1 each 04/12/18 19:43 Cepastat Lozenge - MM Q4H PRN SORE THROAT Gabapentin 100 mg 04/12/18 22:00 04/14/18 14:09 Neurontin - PO 100 mg TID [facility] Administration Guaifenesin 10 ml 04/12/18 19:43 Robitussin Dm - PO Q6H PRN COUGH Hydroxyzine Pamoate 50 mg 04/12/18 19:43 Vistaril - PO Q4H PRN AGITATION Ibuprofen 400 mg 04/12/18 19:43 04/14/18 14:09 Motrin - PO 400 mg Q6H PRN Administration PAIN LEVEL 4-6 Loperamide HCl 4 mg 04/12/18 19:43 Imodium - PO Q6H PRN DIARRHEA Magnesium Citrate 300 ml 04/12/18 19:43 Citroma - PO Q48H PRN CONSTIPATION Magnesium Hydroxide 30 ml 04/12/18 19:43 Milk Of Magnesia - PO DAILY PRN CONSTIPATION Melatonin 5 mg 04/12/18 22:00 Melatonin PO HS PRN INSOMNIA Methadone HCl 30 mg 04/13/18 09:45 04/14/18 05:29 Dolophine - PO 04/20/18 09:44 30 mg DAILY@0600 [facility] Administration Nicotine 14 mg 04/13/18 10:00 04/14/18 10:50 Nicoderm Patch - TD Not Given DAILY [facility] Nicotine Polacrilex 2 mg 04/12/18 19:43 Nicorette Gum - BC Q2H PRN NICOTINE REPLACEMENT RX Ondansetron HCl 4 mg 04/12/18 22:00 04/14/18 05:29 Zofran Odt - SL 4 mg TID GONZALEZ Administration Multivit/Folic Acid/Iron 1 tab 04/13/18 10:00 04/14/18 10:49 Vitamins (Sjr) - PO 1 tab DAILY GONZALEZ Administration Pseudoephedrine/Triprolidine 1 combo 04/12/18 19:43 Actifed - PO TID PRN NASAL CONGESTION Quetiapine Fumarate 300 mg 04/13/18 22:00 04/13/18 22:35 Seroquel - PO 300 mg HS GONZALEZ Administration Thiamine HCl 100 mg 04/12/18 22:00 04/13/18 22:35 Vitamin B1 - PO 100 mg HS GONZALEZ Administration Trazodone HCl 50 mg 04/13/18 22:00 04/13/18 22:35 Desyrel - PO 50 mg HS GONZALEZ Administration Plan: Continue alcohol detox, methadone 30mg OTP. Continue seroquel and trazodone and prn vistaril for anxiety
[2018-04-14] MEDS: traZODone HCL 50 MG TABLET (FP) PO SCH (22:39)
[2018-04-14] MEDS: THIAMINE HCL 100 MG TABLET (FP) PO SCH (22:39)
[2018-04-14] MEDS: QUEtiapine FUMARATE 300 MG TABLET PO SCH (22:39)
[2018-04-14] MEDS: chlordiazePOXIDE 5 MG CAPSULE PO SCH (22:41)
[2018-04-15] MEDS: ALBUTEROL SO4 0.083% IH SOL 2.5 MG/3 ML VIAL.NEB. NEB PRN (02:45)
[2018-04-15] MEDS: ONDANSETRON *ODT* 4 MG TABLET SL SCH ×3 (05:20→22:39)
[2018-04-15] MEDS: GABAPENTIN 100 MG CAPSULE (FP) PO SCH ×3 (05:20→22:37)
[2018-04-15] MEDS: METHADONE HCL 10 MG TABLET PO SCH (05:20)
[2018-04-15] MEDS: chlordiazePOXIDE 5 MG CAPSULE PO SCH ×3 (05:20→18:07)
[2018-04-15] MEDS: BACITRACIN 0.9 GM PACKET TP SCH ×2 (10:41→22:41)
[2018-04-15] MEDS: NICOTINE 14 MG/24 HOURS TOPICAL PATCH TD SCH (10:42)
[2018-04-15] MEDS: PRENATAL VITAMINS W/ FOLIC ACID TABLET (FP) PO SCH (10:42)
[2018-04-15] MEDS: DIVALPROEX SODIUM 250 MG TABLET E.C. PO SCH ×2 (10:42→22:37)
[2018-04-15] MEDS: AMOXICILLIN 500 MG CAPSULE (FP) PO SCH ×2 (10:42→22:37)
[2018-04-15] MEDS: IBUPROFEN 400 MG TABLET (FP) PO PRN (11:26)
--- NOTE | 2018-04-15 18:12 | PN ---
[facility] Progress Note (SOAP) Subjective: Sleep disturbance mild pain Sweats shakes Objective: 04/15/18 18:11 A & O x 3 abrasions to face Vital Signs Temperature 98.1 F 04/15/18 14:25 Pulse Rate 110 H 04/15/18 14:25 Respiratory Rate 18 04/15/18 14:25 Blood Pressure 101/65 04/15/18 14:25 O2 Sat by Pulse Oximetry (%) Assessment: 04/15/18 18:11 withdrawal sx face pain s/p fall Plan: continue detox prn pain med
[2018-04-15] MEDS: QUEtiapine FUMARATE 300 MG TABLET PO SCH (22:37)
[2018-04-15] MEDS: chlordiazePOXIDE HCL 10 MG CAPSULE PO SCH (22:37)
[2018-04-15] MEDS: THIAMINE HCL 100 MG TABLET (FP) PO SCH (22:37)
[2018-04-15] MEDS: traZODone HCL 50 MG TABLET (FP) PO SCH (22:38)
[2018-04-15] MEDS: NICOTINE POLACRILEX 2 MG GUM BC PRN (22:56)
[2018-04-16] MEDS: ALBUTEROL SO4 0.083% IH SOL 2.5 MG/3 ML VIAL.NEB. NEB PRN (00:07)
[2018-04-16] MEDS: METHADONE HCL 10 MG TABLET PO SCH (05:25)
[2018-04-16] MEDS: ONDANSETRON *ODT* 4 MG TABLET SL SCH ×2 (05:27→07:02)
[2018-04-16] MEDS: chlordiazePOXIDE HCL 10 MG CAPSULE PO SCH (05:27)
[2018-04-16] MEDS: GABAPENTIN 100 MG CAPSULE (FP) PO SCH (05:27)
[2018-04-16] MEDS: NICOTINE POLACRILEX 2 MG GUM BC PRN (05:41)
--- NOTE | 2018-04-16 09:25 | DS ---
[facility] Detox Discharge Summary Admission Date: 04/12/18 Discharge Date: 04/16/18 - History Present History: Alcohol Dependence Additional Comments: 47years old female admitted 04/12/18 for alcohol withdrawal sx completed alcohol detox regimen tolerate dwell denies alcohol withdrawal sx alert oriented x 3 no acute distress aftercare [facility] - Physical Exam Results Vital Signs: Vital Signs Temperature 97.6 F 04/16/18 06:00 Pulse Rate 123 H 04/16/18 07:24 Respiratory Rate 18 04/16/18 07:24 Blood Pressure 145/65 04/16/18 07:24 O2 Sat by Pulse Oximetry (%) Pertinent Admission Physical Exam Findings: alcohol withdrawal sx Vital Signs Temperature 97.6 F 04/16/18 06:00 Pulse Rate 123 H 04/16/18 07:24 Respiratory Rate 18 04/16/18 07:24 Blood Pressure 145/65 04/16/18 07:24 O2 Sat by Pulse Oximetry (%) Laboratory Last Values WBC 5.0 K/mm3 (4.0-10.0) 04/13/18 08:50 RBC 3.40 M/mm3 (3.60-5.2) L 04/13/18 08:50 Hgb 11.6 GM/dL (10.7-15.3) D 04/13/18 08:50 Hct 34.1 % (32.4-45.2) D 04/13/18 08:50 MCV 100.2 fl (80-96) H 04/13/18 08:50 MCH 34.1 pg (25.7-33.7) H 04/13/18 08:50 MCHC 34.1 g/dl (32.0-36.0) 04/13/18 08:50 RDW 13.5 % (11.6-15.6) 04/13/18 08:50 Plt Count 144 K/MM3 (134-434) 04/13/18 08:50 MPV 9.8 fl (7.5-11.1) 04/13/18 08:50 Sodium 139 mmol/L (136-145) 04/13/18 08:50 Potassium 4.0 mmol/L (3.5-5.1) 04/13/18 08:50 Chloride 104 mmol/L (98-107) 04/13/18 08:50 Carbon Dioxide 26 mmol/L (21-32) 04/13/18 08:50 Anion Gap 9 (8-16) 04/13/18 08:50 BUN 15 mg/dL (7-18) 04/13/18 08:50 Creatinine 0.7 mg/dL (0.55-1.02) 04/13/18 08:50 Creat Clearance w eGFR > 60 (>60) 04/13/18 08:50 Random Glucose 91 mg/dL (74-106) 04/13/18 08:50 Calcium 8.2 mg/dL (8.5-10.1) L 04/13/18 08:50 Total Bilirubin 0.3 mg/dL (0.2-1.0) D 04/13/18 08:50 AST 28 U/L (15-37) 04/13/18 08:50 ALT 30 U/L (12-78) 04/13/18 08:50 Alkaline Phosphatase 76 U/L (45-117) 04/13/18 08:50 Total Protein 6.2 g/dl (6.4-8.2) L 04/13/18 08:50 Albumin 2.8 g/dl (3.4-5.0) L 04/13/18 08:50 Urine Color Straw 04/12/18 23:50 Urine Appearance Clear 04/12/18 23:50 Urine pH 7.0 (5.0-8.0) 04/12/18 23:50 Ur Specific [place] 1.004 (1.001-1.035) 04/12/18 23:50 Urine Protein Negative (NEGATIVE) 04/12/18 23:50 Urine Glucose (UA) Negative (NEGATIVE) 04/12/18 23:50 Urine Ketones Negative (NEGATIVE) 04/12/18 23:50 Urine Blood Negative (NEGATIVE) 04/12/18 23:50 Urine Nitrite Negative (NEGATIVE) 04/12/18 23:50 Urine Bilirubin Negative (<2.0 mg/dL) 04/12/18 23:50 Urine Urobilinogen Negative mg/dL (0.2-1.0) 04/12/18 23:50 Ur Leukocyte Esterase Negative (NEGATIVE) 04/12/18 23:50 Valproic Acid 44.4 ug/ml (50-100) L 04/14/18 08:00 RPR Titer Nonreactive (NONREACTIVE) 04/13/18 08:50 HIV 1&2 Antibody Screen Negative 04/13/18 10:10 HIV P24 Antigen Negative 04/13/18 10:10 lab noted - Treatment Hospital Course: Detox Protocol Followed, Detoxed Safely, Responded well, Discharged Condition Good, Rehab Referral Accepted Patient has Accepted a Rehab Referral to: [facility] - Medication Discharge Medications: Ambulatory Orders Folic Acid - 1 mg PO DAILY tablet 03/06/18 Vitamins (Sjr) - 1 tab PO DAILY tablet 03/06/18 Thiamine HCl [Vitamin B1 -] 100 mg PO HS tablet 03/06/18 Ondansetron [Zofran Odt -] 4 mg SL TID #21 od.tablet 04/05/18 Diclofenac Sodium 50 mg PO BID 04/12/18 Quetiapine Fumarate [Seroquel -] 200 mg PO HS 04/12/18 Divalproex [Depakote -] 250 mg PO BID #60 tablet.ec 04/13/18 Gabapentin 100 mg PO TID #90 capsule 04/13/18 Quetiapine Fumarate [Seroquel -] 300 mg PO HS #30 tab 04/13/18 Trazodone HCl 50 mg PO HS #30 tablet 04/13/18 Docusate Sodium [Colace -] 100 mg PO BID PRN #60 capsule 04/16/18 - Diagnosis (1) Alcohol dependence with uncomplicated withdrawal Current Visit: Yes Status: Acute (2) GERD (gastroesophageal reflux disease) Current Visit: Yes Status: Chronic Qualifiers: Esophagitis presence: without esophagitis (3) Hepatitis C Current Visit: Yes Status: Chronic Qualifiers: Viral hepatitis chronicity: chronic Hepatic coma status: without hepatic coma Qualified Code(s): B18.2 - Chronic viral hepatitis C (4) Nicotine dependence Current Visit: Yes Status: Acute Qualifiers: Nicotine product type: cigarettes Substance use status: in withdrawal Qualified Code(s): F17.213 - Nicotine dependence, cigarettes, with withdrawal - AMA Did Patient Leave Against Medical Advice: No
[2018-04-16 09:41] VITALS: BP 132/54; PULSE 116; TEMP 97.9
== END 2018-04-16 09:46 | disposition home or self-care (01) | DRG 773 ==
LOC: YASAS 16:06 → Y6N 19:50
PROVIDERS: ADMIT Family Medicine Addiction Medicine; ATTEND Family Medicine Addiction Medicine
PROC: HZ2ZZZZ Detoxification Services for Substance Abuse Treatment (ICD-10-PCS; principal; 2018-04-12)
DX: F11.20 Opioid dependence, uncomplicated (principal); F10.230 Alcohol dependence with withdrawal, uncomplicated; F17.213 Nicotine dependence, cigarettes, with withdrawal; F32.9 Major depressive disorder, single episode, unspecified; B18.2 Chronic viral hepatitis C; K21.9 Gastro-esophageal reflux disease without esophagitis; S01.81XA Laceration without foreign body of other part of head, initial encounter; X58.XXXA Exposure to other specified factors, initial encounter; Y93.9 Activity, unspecified; Y92.89 Other specified places as the place of occurrence of the external cause; Z88.8 Allergy status to other drugs, medicaments and biological substances
CPT/HCPCS: 36415; 80053; 80164; 81003; 85027; 86593; 87389; 93005; 93010; 94640; Q0162

== ENCOUNTER 2018-05-25 09:14 | Emergency (ER) | payer OTHER ==
[2018-05-25 09:38] VITALS: TEMP 98.3; BMI 23.9
--- NOTE | 2018-05-25 10:14 | PDOC ---
History of Present Illness - General Chief Complaint: Dysphagia Stated Complaint: UNABLE TO SWALLOW, SOB Time Seen by Provider: 05/25/18 09:38 - History of Present Illness Initial Comments: 05/25/18 10:03 47 year old with a history of GERD, Hep C, bipolar disorder, pancreatitis, Etoh dependence on methadone 30mg daily who presents with 1 week of difficulty swallowing and feelings of difficulty breathing every 30minutes. She also complains of dry mouth. She denies any nausea, vomiting, diarrhea, chest pain, constipation, fever, abdominal pain. She has been evaluated in the ED several times for abdominal pain and has had 2 abdominal CTs in the past 6months and an abdominal US that did not show significant findings. She reports she was able to eat an egg and cheese sandwich and hot coffee this morning. At bedside she is able to drink some water with minimal difficulty. PMHX:as in HPI Allergies: Metoclopramide HCl, Prochlorperazine HCl, haloperidol Past Surgical History: None reported Tob: 3 cigarettes daily Etoh: none Rec drugs: none Past History - Past Medical History Allergies/Adverse Reactions: Allergies Allergy/AdvReac Type Severity Reaction Status Date / Time metoclopramide HCl Allergy Severe dystonic Verified 04/19/18 18:20 [From Reglan] reaction prochlorperazine maleate Allergy Severe DYSTONIA Verified 04/19/18 18:20 [From Compazine] haloperidol [From Haldol] Allergy Verified 04/19/18 18:20 mirtazapine [From Remeron] AdvReac Severe Difficulty Verified 05/23/18 10:30 Breathing Home Medications: Ambulatory Orders Vitamins (Sjr) - 1 tab PO DAILY tablet 03/06/18 Thiamine HCl [Vitamin B1 -] 100 mg PO HS tablet 03/06/18 Ondansetron [Zofran Odt -] 4 mg SL TID #21 od.tablet 04/05/18 Diclofenac Sodium 50 mg PO BID 04/12/18 Quetiapine Fumarate [Seroquel -] 300 mg PO HS #30 tab 04/13/18 Methadone [Dolophine -] 30 mg PO DAILY 04/16/18 Amitriptyline HCl [Elavil -] 50 mg PO BID #60 tablet 05/09/18 Divalproex [Depakote -] 250 mg PO AM #30 tablet.ec 05/09/18 Divalproex [Depakote -] 500 mg PO HS #30 tablet.ec 05/09/18 Docusate Sodium [Colace -] 100 mg PO BID PRN #60 capsule 05/09/18 Folic Acid - 1 mg PO DAILY #30 tablet 05/09/18 Gabapentin 100 mg PO TID #30 capsule 05/09/18 Quetiapine Fumarate [Seroquel -] 300 mg PO HS #30 tablet 05/09/18 Quetiapine Fumarate [Seroquel] 100 mg PO BID #60 tablet 05/09/18 Bacitracin - [Bacitracin Topical Ointment -] 1 applic TP BID #1 tube 05/23/18 Clotrimazole [Lotrimin 1% Cream -] 1 applic TP BID #1 tube 05/23/18 Mag Hydrox/Aluminum Hyd/Simeth [Maalox Maximum Strength Susp] 1 - 2 tsp PO BID PRN #1 bottle MDD 4 05/23/18 Anemia: Yes (as a teen, had iron and transfusions) Asthma: Yes (ON MDI) Cancer: No Cardiac Disorders: No CVA: No COPD: No CHF: No Dementia: No Diabetes: No GI Disorders: Yes (several admissions for etoh-related pancreatitis) Disorders: No HTN: No Hypercholesterolemia: No Kidney Stones: No Liver Disease: Yes (hepatitis C, not treated ) Psychiatric Problems: Yes (bipolar) Seizures: No Thyroid Disease: No - Surgical History Abdominal Surgery: No Appendectomy: No Cardiac Surgery: No Cholecystectomy: No Lung Surgery: No Neurologic Surgery: No Orthopedic Surgery: No - Reproductive History (#): 13 Para: 11 PID: No - Immunization History Immunization Up to Date: No - Suicide/Smoking/Psychosocial Hx Smoking History: Current every day smoker Have you smoked in the past 12 months: Yes Number of Cigarettes Smoked Daily: 3 Cigars Per Day: 0 Information on smoking cessation initiated: Yes 'Breaking Loose' booklet given: 05/25/18 Hx Alcohol Use: No (detox) Drug/Substance Use Hx: No (stopped years ago) Substance Use Type: Alcohol, Marijuana, Opiates Hx Substance Use Treatment: Yes (multiple modalities of treatments ,no significant clean time) *Physical Exam - Vital Signs Last Vital Signs Temp Pulse Resp BP Pulse Ox 98.3 F 107 H 18 128/81 100 05/25/18 09:30 05/25/18 09:30 05/25/18 09:30 05/25/18 09:30 05/25/18 09:30 Medical Decision Making - Medical Decision Making 05/25/18 10:24 47 year old with a history of GERD, Hep C, bipolar disorder, pancreatitis, Etoh dependence on methadone 30mg daily who presents with 1 week of difficulty swallowing and feelings of difficulty breathing every 30minutes. She appears to be able to drink and eat well based on physical exam. Her symptoms are consistent with possible esophageal stricture 2/2 GERD vs achalasia vs psychogenic disorder vs arrythmia. Given the patient's history of GERD it is possible that she may have an esophageal stricture however her symptoms are inconsistent in that she notes sudden onset of difficulty swallowing for both solids and liquids and a feeling if "cut of mid way through the throat." Without compromise of the airway and the witnessed ability to swallow without regurgitation that patient is safe to discharged with further workup through her PCP and with referral to GI and ENT. We will evaluate the patient in the ED for with urine and EKG as she has had bloodwork done yesterday at [facility]. - EKG, UA, Upreg 05/25/18 11:30 Labwork was unremarkable. The patient was advised to f/u with PCP and given referral to ENT and GI. She was given strict return precautions. *DC/Admit/Observation/Transfer Diagnosis at time of Disposition: Dysphagia - Discharge Dispostion Disposition: HOME Condition at time of disposition: Stable Decision to Admit order: No - Referrals Referrals: James Kaufman MD [Staff Physician] - Ketan Gudino MD [Staff Physician] - [facility] [place] [Provider Group] - Patient Instructions Additional Instructions: You were seen in the ED for complaint of difficulty swallowing. You were evaluated in the ED with labwork and an EKG. You were advised to follow up with your primary care physician and given a referral to GI and ENT specialists. Please return to the ED if symptoms worsen, you develop nausea, vomiting, chest pain, abdominal pain, fevers or inability to swallow. - Post Discharge Activity
--- NOTE | 2018-05-25 10:16 | PDOC ---
Attending Attestation - Resident Resident Name: Maxwell Augustinie - ED Attending Attestation I have performed the following: I have examined & evaluated the patient, The case was reviewed & discussed with the resident, I agree w/resident's findings & plan, Exceptions are as noted - HPI HPI: 05/25/18 10:15 47y F hx of GERD, HCV< bipolar, pancreatitis, o metahdone presents with 1 week of difficulty swallowing. Associated with fluids/solids. pt notes that after she swallows, she feels a catching in her throat and she feels sob then th esypmtoms resolves. she notes the sypmtoms are intermittent, she endorses mild pain when she swallows. denies any sob otherwise, cp, palitations, abd pain, n/v , diaphosis, diarrhea. No prrior hx of similar symptoms. pt notes she was able to drink fluids and eat a sandwich this morning. GENERAL: The patient is awake, alert, and fully oriented, Nontoxic - in no acute distress. HEAD: Normocephalic, atraumatic. EYES: extraocular movements intact, sclera anicteric, conjunctiva clear. ENT: Normal voice, Moist mucous membranes, oropharymx widely patent, no exudates/eryhtma, NECK: Normal range of motion, supple, neg bruits/stridor no massess noted LUNGS: Breath sounds equal, clear to auscultation bilaterally. No wheezes, no rhonchi, no rales. HEART: Regular rate and rhythm, normal S1 and S2 without murmur, rub or gallop. ABDOMEN: Soft, nontender, No guarding, no rebound. . No CVA tenderness EXTREMITIES: Normal range of motion, no edema. NEUROLOGICAL: No facial assymetry, Normal speech, PSYCH: Normal mood, normal affect. SKIN: Warm, Dry, normal turgor, ?achalasia pt otherwise able to toelrate oral intake had normal labs 2 days ago from [facility] will obtain ekg and will hvae pt fu with ENT/GI for outpatient workup - Physicial Exam PE: 05/26/18 14:27 see above - Medical Decision Making 05/26/18 14:27 see above Heart Score/ECG Review - ECG Impressions Comment:: 05/25/18 12:16 Twelve-lead EKG was performed and reviewed by me. There is normal sinus rhythm with a Rate of 101 The axis is normal. Abnormal R wave progression Impression: Sinus tachycardia
[2018-05-25 11:13] LABS: URINE APPEARANCE CLEAR; URINE BILIRUBIN NEGATIVE (<2.0 mg/dL); URINE COLOR LTYELLOW; URINE GLUCOSE (UA) NEGATIVE (NEGATIVE); URINE KETONE NEGATIVE (NEGATIVE); URINE LEUK ESTERASE TRACE (NEGATIVE); URINE NITRITE NEGATIVE (NEGATIVE); URINE PROTEIN NEGATIVE (NEGATIVE); URINE UROBILINOGEN NEGATIVE mg/dL (0.2-1.0)
[2018-05-25 11:33] VITALS: BP 128/87; PULSE 94
[2018-05-25 11:37] LABS: EPI CELLS RARE /HPF (FEW)
--- NOTE | 2018-05-25 14:27 | EKG ---
Test Reason : Blood Pressure : / mmHG Vent. Rate : 101 BPM Atrial Rate : 101 BPM P-R Int : 166 ms QRS Dur : 102 ms QT Int : 370 ms P-R-T Axes : 059 029 051 degrees QTc Int : 479 ms SINUS TACHYCARDIA SEPTAL INFARCT , AGE UNDETERMINED ABNORMAL ECG WHEN COMPARED WITH ECG OF 19-APR-2018 21:32, SEPTAL INFARCT IS NOW PRESENT Confirmed by KELLY LOBO MD ([id number]) on 05/25/2018 2:27:13 PM Referred By: Confirmed By:KELLY LOBO MD
== END 2018-05-25 11:35 | disposition home or self-care (01) ==
LOC: JER 09:14
DX: R13.19 Other dysphagia (principal); K21.9 Gastro-esophageal reflux disease without esophagitis; B18.2 Chronic viral hepatitis C; K86.9 Disease of pancreas, unspecified; F11.20 Opioid dependence, uncomplicated; F10.20 Alcohol dependence, uncomplicated; F31.9 Bipolar disorder, unspecified; J45.909 Unspecified asthma, uncomplicated; Z86.2 Personal history of diseases of the blood and blood-forming organs and certain disorders involving the immune mechanism
CPT/HCPCS: 81003; 81015; 84703; 87086; 93005; 93010; 99281-25

== ENCOUNTER 2018-07-18 18:21 | Inpatient (IN) | payer OTHER ==
[2018-07-18 18:37] VITALS: BMI 20.3
--- NOTE | 2018-07-18 19:14 | PDOC ---
History of Present Illness <Best Cordoncyrus - Last Filed: 07/19/18 02:02> - General History Source: Patient Exam Limitations: No Limitations - History of Present Illness Initial Comments: 07/18/18 19:15 This is a 47 YOF with h/o HCV, GERD, EtOH pancreatitis, bipolar disorder, and current methadone use 30mg daily, who p/w nausea, watery emesis x30 with small dark red specks in it, and 10/10 sharp epigastric abdominal pain radiating to her mid-back which feels exactly the same as her prior EtOH pancreatitis, for which she was admitted here. She drinks about a fifth of hard liquor/day and last drank yesterday. She notes not having taken her methadone 30 mg normal daily dose this morning because she was vomiting. She has not tried eating anything today. She additionally note subjective f/c, headache, lightheadedness , and mildly exacerbated SOB from her baseline (states d/t the pain), but denies diarrhea, constipation, black/bloody stool, or other symptoms. <WalkeraTty - Last Filed: 07/21/18 09:30> - General Chief Complaint: Nausea/Vomiting Stated Complaint: ABD PAIN Time Seen by Provider: 07/18/18 19:13 Past History <Nayan Cordon - Last Filed: 07/19/18 02:02> - Past Medical History Anemia: Yes (as a teen, had iron and transfusions) Asthma: Yes (ON MDI) Cancer: No Cardiac Disorders: No CVA: No COPD: No CHF: No Dementia: No Diabetes: No GI Disorders: Yes (several admissions for etoh-related pancreatitis) Disorders: No HTN: No Hypercholesterolemia: No Kidney Stones: No Liver Disease: Yes (hepatitis C, not treated ) Psychiatric Problems: Yes (bipolar) Seizures: No Thyroid Disease: No - Surgical History Abdominal Surgery: No Appendectomy: No Cardiac Surgery: No Cholecystectomy: No Lung Surgery: No Neurologic Surgery: No Orthopedic Surgery: No - Reproductive History (#): 13 Para: 11 PID: No - Immunization History Immunization Up to Date: No - Suicide/Smoking/Psychosocial Hx Smoking History: Current every day smoker Have you smoked in the past 12 months: Yes Number of Cigarettes Smoked Daily: 5 Cigars Per Day: 0 Information on smoking cessation initiated: No 'Breaking Loose' booklet given: 05/25/18 Hx Alcohol Use: No (detox) Drug/Substance Use Hx: No (stopped years ago) Substance Use Type: Heroin Hx Substance Use Treatment: Yes (multiple modalities of treatments ,no significant clean time) <Taty Walker - Last Filed: 07/21/18 09:30> - Past Medical History Allergies/Adverse Reactions: Allergies Allergy/AdvReac Type Severity Reaction Status Date / Time metoclopramide HCl Allergy Severe dystonic Verified 07/18/18 18:33 [From Reglan] reaction prochlorperazine maleate Allergy Severe DYSTONIA Verified 07/18/18 18:33 [From Compazine] haloperidol [From Haldol] Allergy Verified 07/18/18 18:33 mirtazapine [From Remeron] AdvReac Severe Difficulty Verified 07/18/18 18:33 Breathing Home Medications: Ambulatory Orders Vitamins (Sjr) - 1 tab PO DAILY tablet 03/06/18 Thiamine HCl [Vitamin B1 -] 100 mg PO HS tablet 03/06/18 Methadone [Dolophine -] 30 mg PO DAILY 04/16/18 Divalproex [Depakote -] 250 mg PO AM #30 tablet.ec 05/09/18 Divalproex [Depakote -] 500 mg PO HS #30 tablet.ec 05/09/18 Docusate Sodium [Colace -] 100 mg PO BID PRN #60 capsule 05/09/18 Folic Acid - 1 mg PO DAILY #30 tablet 05/09/18 Gabapentin 100 mg PO TID #30 capsule 05/09/18 Folic Acid - 1 mg PO DAILY #30 tablet 07/20/18 Multivitamins [Multivit ([facility] Formulary)] 1 tab PO DAILY #30 tab 07/20/18 Pantoprazole Sodium [Protonix -] 40 mg PO BID #28 tablet.ec 07/20/18 Quetiapine Fumarate [Seroquel -] 200 mg PO DAILY tablet 07/20/18 Abd/GI Specific PMHX - Complaint Specific PMHX Hepatitis: Yes (HEP C) Pancreatitis: Yes <Taty Walker - Last Filed: 07/21/18 09:30> Review of Systems - Review of Systems Able to Perform ROS?: Yes Constitutional: Yes: Chills, Fever, Loss of Appetite, Malaise. No: Unexplained wgt Loss HEENTM: No: Nose Congestion, Throat Pain Respiratory: Yes: Shortness of Breath (mild). No: Cough Cardiac (ROS): No: Chest Pain, Palpitations ABD/GI: Yes: Nausea, Poor Appetite, Vomiting, Other (abdominal pain). No: Abdominal Distended, Blood Streaked Bowels, Constipated, Diarrhea, Rectal Bleeding : No: Burning, Dysuria Musculoskeletal: Yes: Back Pain. No: Neck Pain Integumentary: Yes: Other (no jaundice). No: Bruising, Rash Neurological: Yes: Headache. No: Numbness, Tingling, Weakness Endocrine: No: Unexplained Weight Gain, Unexplained Weight Loss <Taty Walker - Last Filed: 07/21/18 09:30> *Physical Exam - Vital Signs Last Vital Signs Temp Pulse Resp BP Pulse Ox 100.4 F H 116 H 16 161/120 100 07/18/18 23:30 07/18/18 23:30 07/18/18 23:30 07/18/18 23:30 07/18/18 23:30 <Byron Cordonrenéelibia - Last Filed: 07/19/18 02:02> - Vital Signs Last Vital Signs Temp Pulse Resp BP Pulse Ox 97.9 F 84 18 160/90 100 07/18/18 18:34 07/18/18 18:34 07/18/18 18:34 07/18/18 18:34 07/18/18 18:34 - Physical Exam General Appearance: Yes: Nourished, Disheveled (mildly), Mild Distress, Other ( a bit uncomfortable appearing and fidgety but pleasant adult female, answers questions appropriately, holding emesis bag in hand with small amount of watery emesis with sparse specks of dark material which does appear the shade of coffee ground emesis). No: Alcohol on Breath HEENT: positive: EOMI, PARTH, Normal Voice, Hearing Grossly Normal, Other (moist mucous membranes). negative: Scleral Icterus (R), Scleral Icterus (L), Nasal Congestion Neck: positive: Trachea midline, Supple. negative: Tender, Rigid Respiratory/Chest: positive: Lungs Clear, Normal Breath Sounds. negative: Chest Tender, Respiratory Distress, Crackles, Rhonchi, Stridor, Wheezing Cardiovascular: positive: Regular Rhythm, Regular Rate, S1, S2. negative: Edema , JVD, Murmur Gastrointestinal/Abdominal: positive: Normal Bowel Sounds, Tender (mild epigastric, negative Costello's, no ttp McBurney's point), Flat, Soft. negative: Organomegaly, Pulsatile Mass, Distended, Guarding, Rebound Musculoskeletal: positive: Normal Inspection. negative: CVA Tenderness, Decreased Range of Motion, Vertebral Tenderness Extremity: positive: Normal Capillary Refill, Normal Inspection, Normal Range of Motion. negative: Tender, Cyanosis Integumentary: positive: Normal Color, Dry, Warm. 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 negative: Facial Droop, Numbness, Sensory Deficit, Confused, Disoriented <Taty Walker - Last Filed: 07/21/18 09:30> ED Treatment Course - LABORATORY CBC & Chemistry Diagram: 07/18/18 20:30 07/18/18 20:30 - ADDITIONAL ORDERS Additional order review: Laboratory Results 07/19/18 07/18/18 07/18/18 00:10 20:35 20:35 PT with INR INR Sodium Potassium Chloride Carbon Dioxide Anion Gap BUN Creatinine Creat Clearance w eGFR Random Glucose Lactic Acid 1.4 Calcium Magnesium Total Bilirubin AST ALT Alkaline Phosphatase Troponin I < 0.02 Total Protein Albumin Lipase Serum , Qual Negative 07/18/18 07/18/18 07/18/18 20:30 20:30 20:30 PT with INR 11.40 INR 1.01 Sodium 136 Potassium 3.5 Chloride 95 L Carbon Dioxide 24 Anion Gap 17 H BUN 12 Creatinine 1.0 Creat Clearance w eGFR 59.69 Random Glucose 123 H Lactic Acid Calcium 9.3 Magnesium 2.0 Total Bilirubin 0.9 AST 96 H ALT 84 H Alkaline Phosphatase 128 H Troponin I Total Protein 10.2 H Albumin 4.9 Lipase 243 Serum , Qual 07/19/18 01:14 Influenza Types A,B Antigen - Preliminary Nasopharyngeal Swab - Preliminary 07/18/18 20:30 RBC 4.37 MCV 97.9 H MCHC 34.6 RDW 14.0 D MPV 9.9 Neutrophils % 84.5 H D Lymphocytes % 11.6 D Monocytes % 3.7 L Eosinophils % 0.0 D Basophils % 0.2 - RADIOLOGY Radiograph Interpretation: 07/19/18 02:02 EXAM: CT abdomen and pelvis with IV contrast. Clinical indication: Abdominal pain and vomiting. Comparison is made to the prior study dated 12/03/2017. Technique: Axial IV contrast-enhanced CT images of the abdomen and pelvis were obtained followed by coronal and sagittal reformats. Findings: The visualized portions of the lower thorax are within normal limits. There is no free intra-abdominal gas or fluid. The common bile duct is dilated measuring at least 0.8 cm in diameter without obvious obstructing lesion. Otherwise, the liver, gallbladder, adrenals, pancreas, and spleen are normal. There is no hydronephrosis or hydroureter bilaterally. However, there is multifocal areas of right-sided renal cortical scarring, likely on the basis of prior infections. There are no enlarged abdominal or pelvic lymph nodes, by size criteria. The pelvic organs are grossly unremarkable, given the limitations of CT for evaluating them. Urinary bladder is distended and measures roughly 10.0 x 7.8 cm in axial dimension and extends 14.8 cm in craniocaudal dimension. These measurements correspond to a urinary volume of approximately 580 cc of urine. The appendix is normal. The remainder of the bowel is unremarkable. The visualized bony structures are within normal limits for the patient's age. Impression: 1. Distended urinary bladder with a volume of approximately 580 cc urine. Assess for possible bladder outlet obstruction. 3. Multifocal areas of right-sided renal cortical scarring, likely on the basis of prior infections. 3. Dilated common bile duct out of keeping with the patient's age. Correlate with signs and symptoms of obstructive jaundice. Individualized dose optimization techniques were used for this CT. Read by: Danny Ramirez MD - Medications Given in the ED: ED Medications Discontinued Medications Generic Name Dose Route Start Last Admin Trade Name Freq PRN Reason Stop Dose Admin Acetaminophen 1,000 mg 07/18/18 20:50 07/18/18 21:32 Ofirmev Injection - IVPB 07/18/18 20:51 1,000 mg ONCE ONE Administration Al Hydroxide/Mg Hydroxide 30 ml 07/18/18 23:42 07/18/18 23:45 Mylanta Oral Suspension - PO 07/18/18 23:43 30 ml ONCE ONE Administration Famotidine/Sodium Chloride 20 mg in 50 mls @ 100 mls/hr 07/18/18 19:28 20:28 Pepcid 20 Mg Premixed Ivpb - IVPB 07/18/18 19:57 100 mls/hr ONCE ONE Administration Lidocaine HCl 20 ml 07/18/18 23:48 07/18/18 23:55 Xylocaine 2% Viscous Oral - MM 07/18/18 23:49 20 ml ONCE ONE Administration Methadone HCl 20 mg 07/18/18 20:04 07/18/18 20:17 Dolophine - PO 07/18/18 20:05 20 mg ONCE ONE Administration Pantoprazole Sodium 40 mg 07/18/18 21:00 07/18/18 21:32 Protonix Iv IVPUSH 07/18/18 21:01 40 mg ONCE ONE Administration Sodium Chloride 1,000 ml 07/18/18 19:16 07/18/18 20:28 Normal Saline - IV 07/18/18 19:17 1,000 ml ONCE ONE Administration <Nayan Cordon - Last Filed: 07/19/18 02:02> - LABORATORY CBC & Chemistry Diagram: 07/20/18 07:00 07/20/18 07:00 <Taty Walker - Last Filed: 07/21/18 09:30> Medical Decision Making - Medical Decision Making 07/18/18 19:27 Adult Pt p/w epigastric abdominal pain. Initial Vital Signs Temp Pulse Resp BP Pulse Ox 97.9 F 84 18 160/90 100 07/18/18 18:34 07/18/18 18:34 07/18/18 18:34 07/18/18 18:34 07/18/18 18:34 Exam: As noted in Physical Exam section. DDX IBNLT: cholecystitis, choledocholithiasis, cholangitis, pancreatitis, appendicitis, gastritis, PUD, colitis, AAA/AD, ACS, renal stone, SBO, mesenteric /bowel ischemia, bowel perforation, constipation, gas, etc W/U ordered: CBCD CMP Mg Phos Lipase Troponin EKG CXR RUQ US TX ordered: IVF, Pepcid, Methadone 20 mg (I explain to patient that her EKG findings keep us from being able to order her normal 30 mg dose) Prior to methadone order, records from [address] are reviewed; patient does not have MMTP visit documented for today. EKG: Reviewed; results as noted in ECG Review section. RAD/CHEST X-RAY PORTABLE* Epigastric pain. Semierect portable chest x-ray compared with January 12, 2018. The top of the lung apices is not included on the x-ray. Unremarkable contour of the cardiomediastinal silhouette. No evidence of pneumonia, CHF, pleural effusion, or pneumothorax. No evidence of bulky hilar adenopathy. Nodular opacity in the right basilar region likely represent a nipple shadow. For confirmation follow-up x-ray with nipple markers recommended. Impression No evidence of active disease. Right basilar nodular opacity likely nipple shadow. Follow-up x-ray with nipple markers for confirmation recommended. US: Mild nonspecific CBD dilation which was previously noted, nothing acute. Laboratory Tests 07/18/18 07/18/18 07/18/18 20:30 20:30 20:30 WBC 5.8 RBC 4.37 Hgb 14.8 Hct 42.7 MCV 97.9 H MCH 33.9 H MCHC 34.6 RDW 14.0 D Plt Count 161 D MPV 9.9 Absolute Neuts (auto) 4.9 Neutrophils % 84.5 H D Lymphocytes % 11.6 D Monocytes % 3.7 L Eosinophils % 0.0 D Basophils % 0.2 Nucleated RBC % 0 PT with INR 11.40 INR 1.01 Sodium 136 Potassium 3.5 Chloride 95 L Carbon Dioxide 24 Anion Gap 17 H BUN 12 Creatinine 1.0 Creat Clearance w eGFR 59.69 Random Glucose 123 H Calcium 9.3 Magnesium 2.0 Total Bilirubin 0.9 AST 96 H ALT 84 H Alkaline Phosphatase 128 H Troponin I Total Protein 10.2 H Albumin 4.9 Lipase Serum , Qual 07/18/18 07/18/18 07/18/18 20:30 20:35 20:35 WBC RBC Hgb Hct MCV MCH MCHC RDW Plt Count MPV Absolute Neuts (auto) Neutrophils % Lymphocytes % Monocytes % Eosinophils % Basophils % Nucleated RBC % PT with INR INR Sodium Potassium Chloride Carbon Dioxide Anion Gap BUN Creatinine Creat Clearance w eGFR Random Glucose Calcium Magnesium Total Bilirubin AST ALT Alkaline Phosphatase Troponin I < 0.02 Total Protein Albumin Lipase 243 Serum , Qual Negative Reassessment: Patient is still nauseated, vomiting into emesis basin when I walk into the exam room. Vital Signs Temperature 100.4 F H 07/18/18 23:30 Pulse Rate 116 H 07/18/18 23:30 Respiratory Rate 16 07/18/18 23:30 Blood Pressure 161/120 07/18/18 23:30 O2 Sat by Pulse Oximetry (%) 100 07/18/18 23:30 07/18/18 23:48 Ordered is Maalox and Lidocaine. Patient states still feeling very unwell, uncomfortable going home, still vomiting. Attempted to take PO and unable, also vomited fluids she attempted to drink. Also ordered is lactate, flu swab, CT abdomen/pelvis with IV contrast, patient has had >40 episodes vomiting since yesterday. The Pts symptoms persist despite ED treatments. The Pt is unsafe for discharge at this time. They require further hospital observation, workup, and treatment. Microblog sent to [facility] for admission. Blank Decision to Admit order placed. 07/19/18 02:08 I spoke with Imer Leija; in agreement patient to be admitted to Obs Med/Surg. Decision to Admit order corrected with Dr. Bernal's name. <Taty Walker - Last Filed: 07/21/18 09:30> *DC/Admit/Observation/Transfer - Attestations Scribe Attestion: 07/19/18 02:03 Documentation prepared by Nayan Cordon, acting as medical administrative for Sarah Ramirez MD. <Nayan Cordon - Last Filed: 07/19/18 02:02> - Discharge Dispostion Decision to Admit order: Yes <Taty Walker - Last Filed: 07/21/18 09:30> Diagnosis at time of Disposition: Abdominal pain Qualifiers: Abdominal location: unspecified location Qualified Code(s): R10.9 - Unspecified abdominal pain Vomiting Qualifiers: Vomiting type: unspecified Vomiting Intractability: unspecified Nausea presence : with nausea Qualified Code(s): R11.2 - Nausea with vomiting, unspecified Fever Qualifiers: Fever type: unspecified Qualified Code(s): R50.9 - Fever, unspecified - Discharge Dispostion Disposition: AGAINST MEDICAL ADVICE Condition at time of disposition: Guarded
[2018-07-18] MEDS ORDERED: SODIUM CHLORIDE 0.9% 500 ML INFUS.BAG IV ONE (19:16)
[2018-07-18] MEDS ORDERED: FAMOTIDINE 20 MG/50 ML IVPB 20 MG/50 ML MG IVPB ONE ×2 (19:28→20:15)
[2018-07-18] MEDS ORDERED: METHADONE HCL 10 MG TABLET PO ONE (20:04)
[2018-07-18] MEDS ORDERED: METHADONE HCL 10 MG TABLET ONE (20:15)
[2018-07-18 20:47] LABS: BASO % 0.2 % (0-2.0); HEMATOCRIT 42.7 % (32.4-45.2); HEMOGLOBIN 14.8 GM/dL (10.7-15.3); LYMPH % 11.6 % (8-40); MCH 33.9 pg (25.7-33.7); MCHC 34.6 g/dl (32.0-36.0); MEAN CELL VOLUME 97.9 fl (80-96); MEAN PLT VOLUME 9.9 fl (7.5-11.1); MONO % 3.7 % (3.8-10.2); NEUT % 84.5 % (42.8-82.8); PLATELET COUNT 161 K/MM3 (134-434); RBC 4.37 M/mm3 (3.60-5.2); WHITE BLOOD COUNT 5.8 K/mm3 (4.0-10.0)
[2018-07-18] MEDS ORDERED: ACETAMINOPHEN 1000 MG/100 ML VIAL (NON FORMULARY) IVPB ONE (20:50)
--- NOTE | 2018-07-18 20:59 | PDOC ---
Attending Attestation - Resident Resident Name: Taty Walker - ED Attending Attestation I have performed the following: I have examined & evaluated the patient, The case was reviewed & discussed with the resident, I agree w/resident's findings & plan, Exceptions are as noted - HPI HPI: 07/18/18 20:58 The patient is a 47 year old female, with a significant past medical history of HCV, GERD, EtOH pancreatitis, polysubstance abuse(on 30 mg Methadone daily), bipolar disorder, and cyclical vomiting, who presents to the emergency department with, nausea with emesis and epigastric pain. She reports 30 episodes of emesis described with small dark red specks. She describes her epigastric pain as a sharp, 10/10 that radiates to her mid-back. As per patient , her symptoms are similar to that of her prior episodes of pancreatitis. She also endorses associated subjective fever, chills, headache, lightheadedness, and shortness of breath. The patient also notes she did not receive her daily methadone. She denies recent diarrhea or constipation. She denies recent dysuria, frequency, urgency or hematuria. She denies recent chest pain. Allergies: Metoclopramide HCl, Prochlorperazine HCl, haloperidol Past surgical history: 2 C-Sections. Social history: 3 cigarettes daily. 30mg Methadone daily. Marijuana use. ETOH abuse. - Physicial Exam PE: 07/18/18 20:59 agree with resident exam - Medical Decision Making 07/18/18 21:03 47-year-old female with multiple medical problems including hepatitis C, cyclic vomiting syndrome, alcohol abuse presents emergency Department with epigastric pain, nausea and vomiting. PT is hypertensive to 160s, likely 2/2 pain. EKG with prolonged QT, pt requesting methadone. Will give reduced dose of methadone. Will hold off on QT prolonging meds such as zofran, reglan. DDx includes but not limited to pancreatitis vs etoh gastritis vs cholecystitis. 07/19/18 05:58 +mildly elevated LFTs Sxs persist despite treatment pt admitted for further mgmt Heart Score/ECG Review #1 07/18/18 21:01 Twelve-lead EKG was performed and reviewed by me. Normal sinus rhythm, rate 84. Normal axis. Prolonged QT of 496. No ST elevations or T-wave inversions.
[2018-07-18] MEDS ORDERED: PANTOPRAZOLE SODIUM 40 MG VIAL IVPUSH ONE (21:00)
[2018-07-18 21:01] LABS: INR 1.01 (0.83-1.09); PROTHROMBIN TIME (PATIENT) 11.4 SEC (9.7-13.0)
[2018-07-18] MEDS ORDERED: ACETAMINOPHEN INJECTION 100 ML IVPB ONE (21:07)
[2018-07-18] MEDS ORDERED: PANTOPRAZOLE SODIUM 40 MG/100 ML BAG IVPB ONE (21:07)
[2018-07-18 21:11] LABS: ALBUMIN 4.9 g/dl (3.4-5.0); ALK PHOS 128 U/L (45-117); ANION GAP 17 MMOL/L (8-16); BILIRUBIN,TOTAL 0.9 mg/dL (0.2-1); BLOOD UREA NITROGEN 12 mg/dL (7-18); CALCIUM 9.3 mg/dL (8.5-10.1); CHLORIDE 95 mmol/L (98-107); CO2 24 mmol/L (21-32); GLUCOSE,RANDOM 123 mg/dL (74-106); POTASSIUM 3.5 mmol/L (3.5-5.1); SGOT/AST 96 U/L (15-37); SGPT/ALT 84 U/L (13-61); SODIUM 136 mmol/L (136-145); TOT PROT 10.2 g/dl (6.4-8.2)
[2018-07-18] MEDS ORDERED: MAG HYDROX/AL HYDROX/SIMETH 30 ML UNIT-DOSE CUP PO ONE (23:42)
[2018-07-18] MEDS ORDERED: MAG HYDROX/AL HYDROX/SIMETH 30 ML UNIT-DOSE CUP ONE (23:43)
[2018-07-18] MEDS ORDERED: LIDOCAINE VISCOUS 2% ORAL/TOP 20 ML UNIT-DOSE CUP MM ONE (23:48)
[2018-07-18] MEDS ORDERED: LIDOCAINE VISCOUS 2% ORAL/TOP 20 ML UNIT-DOSE CUP ONE (23:49)
--- NOTE | 2018-07-19 02:39 | PN ---
Teaching Attending Note Name of Resident: Keyanna Bermudez ATTENDING PHYSICIAN STATEMENT I saw and evaluated the patient. I reviewed the resident's note and discussed the case with the resident. I agree with the resident's findings and plan as documented. SUBJECTIVE: Patient is a 47 year old woman with history of HCV infection, GERD, alcoholic pancreatitis, bipolar disorder, and current methadone use 30mg daily, who presents with nausea, watery emesis x30 with small dark red specks in it, and 10 /10 sharp epigastric abdominal pain radiating to her mid-back. Feels exactly the same as her prior bouts of pancreatitis, for which she was admitted. She drinks about a fifth of hard liquor/day and last drank yesterday. She notes not having taken her methadone 30 mg normal daily dose this morning because she was vomiting. She has not tried eating anything today. She additionally notes fever and chills, headache, lightheadedness, and mildly exacerbated SOB from her baseline, but denies diarrhea, constipation or black/bloody stool. OBJECTIVE: Alert Vital Signs Period Temp Pulse Resp BP Sys/Moore Pulse Ox Last 24 Hr 97.9 F-100.4 F 84-116 16-18 160-164/90-126 2-100 HEENT: No Jaundice, eye redness or discharge, PERRLA, EOMI. Normocephalic, atraumatic. External ears are normal and hearing is grossly intact. No nasal discharge. Neck: Supple, nontender. No palpable adenopathy or thyromegaly. No JVD Chest: Good effort. Clear to auscultation and percussion. Heart: Regular. No S3 or rub; 2/6 JOSE Abdomen: Not distended, soft, epigastric tenderness and no HSM. No rebound or guarding. Normoactive bowel sounds. Ext: Peripheral pulses intact. No leg edema. Skin: Warm and dry. No petechiae, rash or ecchymosis. Neuro: Alert. Oriented x3. CN 2-12 grossly intact. No asterexis or tremors but anxious. Sensation grossly intact in all four extremities and DTR are symmetric. Home Medications Medication Instructions Recorded Vitamins (Sjr) - 1 tab PO DAILY tablet 03/06/18 Thiamine HCl [Vitamin B1 -] 100 mg PO HS tablet 03/06/18 Ondansetron [Zofran Odt -] 4 mg SL TID #21 od.tablet 04/05/18 Diclofenac Sodium 50 mg PO BID 04/12/18 Methadone [Dolophine -] 30 mg PO DAILY 04/16/18 Amitriptyline HCl [Elavil -] 50 mg PO BID #60 tablet 05/09/18 Divalproex [Depakote -] 250 mg PO AM #30 tablet.ec 05/09/18 Divalproex [Depakote -] 500 mg PO HS #30 tablet.ec 05/09/18 Docusate Sodium [Colace -] 100 mg PO BID PRN #60 capsule 05/09/18 Folic Acid - 1 mg PO DAILY #30 tablet 05/09/18 Gabapentin 100 mg PO TID #30 capsule 05/09/18 Quetiapine Fumarate [Seroquel -] 300 mg PO HS #30 tablet 05/09/18 Quetiapine Fumarate [Seroquel] 100 mg PO BID #60 tablet 05/09/18 Bacitracin - [Bacitracin Topical 1 applic TP BID #1 tube 05/23/18 Ointment -] Clotrimazole [Lotrimin 1% Cream -] 1 applic TP BID #1 tube 05/23/18 Buspirone HCl [Buspar -] 1 tab PO DAILY 06/08/18 traZODone HCL [Trazodone HCl] 1 tab PO DAILY 06/08/18 Abnormal Lab Results 07/18/18 07/18/18 20:30 20:30 MCV 97.9 H MCH 33.9 H Neutrophils % 84.5 H D Monocytes % 3.7 L Chloride 95 L Anion Gap 17 H Random Glucose 123 H AST 96 H ALT 84 H Alkaline Phosphatase 128 H Total Protein 10.2 H ASSESSMENT AND PLAN: 1. Alcoholic gastritis - Findings consistent with alcoholic gastritis and ketosis. Will treat with IV banana bag and IV protonix 40 mg q 12 hours. Repeat BP measurement manually and treat accordingly. Consult GI. 2. Alcohol abuse - Implement [facility] alcohol withdrawal protocol and fall precautions. Treat with thiamine and folic acid and monitor electrolytes (Ca,Mg, K,P). 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 3. Tobacco Use We will provide patient all the necessary assistance to facilitate smoking cessation and prescribe Nicotine patch. 4. DVT prophylaxis - Lovenox 40 mg SQ q 24 hours. 5. Advance directives - Full code
[2018-07-19] MEDS ORDERED: SODIUM CHLORIDE 1,000 ML IV SCH (03:30)
--- NOTE | 2018-07-19 04:05 | HP ---
CHIEF COMPLAINT: Nausea/Vomiting PCP: None HISTORY OF PRESENT ILLNESS: The patient is a 47 yo f w/ PMH HCV, GERD, ETOH pancreatitis, Bipolar disorder who comes into the ED c/o a 1 day history of nausea, vomiting and abdominal pain. The patient states that at approx. 11pm last night, she was drinking alcohol with her brother when she began to feel nausea. After this, the patient endorses watery emesis which began with a brown and green color and eventually changed to a yellow color with red flecks in it. This vomiting is associated with a 10/10, sharp, epigastric abdominal pain which radiated to her back. The patient states that this pain feels similar to her previous episodes of pancreatitis. Patient states that she drinks approx. 1/5 of vodka daily, with her last drink being yesterday. Patient denies chest pain, SOB, dysuria, sick contacts. ER course was notable for: (1) Temp. 100.4 (2) Lipase 243 (3) BP 161/120 (4) protonix, famotidine, mylanta Recent Travel: none PAST MEDICAL HISTORY: see HPI PAST SURGICAL HISTORY: CSection x2 w/ tubal ligation on the second Social History: Smoking: current everyday smoker Alcohol: see HPI Drugs: former cocaine and opiate abuser Family History: non-contributory Allergies metoclopramide HCl [From Reglan] Allergy (Severe, Verified 07/18/18 18:33) dystonic reaction dystonic reaction prochlorperazine maleate [From Compazine] Allergy (Severe, Verified 07/18/18 18: 33) DYSTONIA haloperidol [From Haldol] Allergy (Verified 07/18/18 18:33) mirtazapine [From Remeron] Adverse Reaction (Severe, Verified 07/18/18 18:33) Difficulty Breathing HOME MEDICATIONS: Home Medications Medication Instructions Recorded Vitamins (Sjr) - 1 tab PO DAILY tablet 03/06/18 Thiamine HCl [Vitamin B1 -] 100 mg PO HS tablet 03/06/18 Ondansetron [Zofran Odt -] 4 mg SL TID #21 od.tablet 04/05/18 Diclofenac Sodium 50 mg PO BID 04/12/18 Methadone [Dolophine -] 30 mg PO DAILY 04/16/18 Amitriptyline HCl [Elavil -] 50 mg PO BID #60 tablet 05/09/18 Divalproex [Depakote -] 250 mg PO AM #30 tablet.ec 05/09/18 Divalproex [Depakote -] 500 mg PO HS #30 tablet.ec 05/09/18 Docusate Sodium [Colace -] 100 mg PO BID PRN #60 capsule 05/09/18 Folic Acid - 1 mg PO DAILY #30 tablet 05/09/18 Gabapentin 100 mg PO TID #30 capsule 05/09/18 Quetiapine Fumarate [Seroquel -] 300 mg PO HS #30 tablet 05/09/18 Quetiapine Fumarate [Seroquel] 100 mg PO BID #60 tablet 05/09/18 Bacitracin - [Bacitracin Topical 1 applic TP BID #1 tube 05/23/18 Ointment -] Clotrimazole [Lotrimin 1% Cream -] 1 applic TP BID #1 tube 05/23/18 Buspirone HCl [Buspar -] 1 tab PO DAILY 06/08/18 traZODone HCL [Trazodone HCl] 1 tab PO DAILY 06/08/18 REVIEW OF SYSTEMS CONSTITUTIONAL: Absent: fever, chills, diaphoresis, generalized weakness, malaise, loss of appetite, weight change HEENT: Absent: rhinorrhea, nasal congestion, throat pain, throat swelling, difficulty swallowing, mouth swelling, ear pain, eye pain, visual changes CARDIOVASCULAR: Absent: chest pain, syncope, palpitations, irregular heart rate, lightheadedness , peripheral edema RESPIRATORY: Absent: cough, shortness of breath, dyspnea with exertion, orthopnea, wheezing, stridor, hemoptysis GASTROINTESTINAL: Absent: abdominal distension, constipation, melena, hematochezia GENITOURINARY: Absent: dysuria, frequency, urgency, hesitancy, hematuria, flank pain, genital pain MUSCULOSKELETAL: Absent: myalgia, arthralgia, joint swelling, back pain, neck pain SKIN: Absent: rash, itching, pallor HEMATOLOGIC/IMMUNOLOGIC: Absent: easy bleeding, easy bruising, lymphadenopathy, frequent infections ENDOCRINE: Absent: unexplained weight gain, unexplained weight loss, heat intolerance, cold intolerance NEUROLOGIC: Absent: headache, focal weakness or paresthesias, dizziness, unsteady gait, seizure, mental status changes, bladder or bowel incontinence PSYCHIATRIC: Absent: anxiety, depression, suicidal or homicidal ideation, hallucinations. PHYSICAL EXAMINATION Vital Signs - 24 hr 07/18/18 07/18/18 07/19/18 18:34 23:30 03:34 Temperature 97.9 F 100.4 F H 99.2 F Pulse Rate 84 Pulse Rate [ 116 H 102 H Left Radial] Respiratory 18 16 22 Rate Blood Pressure 160/90 Blood Pressure 161/120 158/112 [Left Arm] Blood Pressure 164/126 149/113 [Right Arm] O2 Sat by Pulse 100 100 100 Oximetry (%) GENERAL: Awake, alert, and fully oriented, in no acute distress. HEAD: Normal with no signs of trauma. EYES: Pupils equal, round and reactive to light, extraocular movements intact, sclera anicteric, conjunctiva clear. No lid lag. EARS, NOSE, THROAT: oropharynx clear without exudates. Dry mucous membranes. NECK: Normal range of motion, supple without lymphadenopathy, JVD, or masses. LUNGS: Breath sounds equal, Inspiratory crackles heard in all lung raman. No wheezes, No accessory muscle use. HEART: Regular rate and rhythm, normal S1 and S2. 2/6 Systoic ejection murmur heard best over let upper sternal border ABDOMEN: Soft, not distended, normoactive bowel sounds. Tenderness to palpation in the upper abdomen felt most in the epigastrium. Tenderness radiates around to the center of the back. No CVA tenderness. no guarding, no rebound, no masses. LOWER EXTREMITIES: 2+ pulses, warm, well-perfused. No calf tenderness. No peripheral edema. NEUROLOGICAL: Cranial nerves II-X intact. Normal speech. Strength 5/5 in all 4 limbs PSYCHIATRIC: Cooperative. Good eye contact. Appropriate mood and affect. SKIN: Warm, dry, normal turgor, no rashes or lesions noted, normal capillary refill. Laboratory Results - last 24 hr 07/18/18 07/18/18 07/18/18 20:30 20:30 20:30 WBC 5.8 RBC 4.37 Hgb 14.8 Hct 42.7 MCV 97.9 H MCH 33.9 H MCHC 34.6 RDW 14.0 D Plt Count 161 D MPV 9.9 Absolute Neuts (auto) 4.9 Neutrophils % 84.5 H D Lymphocytes % 11.6 D Monocytes % 3.7 L Eosinophils % 0.0 D Basophils % 0.2 Nucleated RBC % 0 PT with INR 11.40 INR 1.01 Sodium 136 Potassium 3.5 Chloride 95 L Carbon Dioxide 24 Anion Gap 17 H BUN 12 Creatinine 1.0 Creat Clearance w eGFR 59.69 Random Glucose 123 H Lactic Acid Calcium 9.3 Magnesium 2.0 Total Bilirubin 0.9 AST 96 H ALT 84 H Alkaline Phosphatase 128 H Troponin I Total Protein 10.2 H Albumin 4.9 Lipase Serum , Qual 07/18/18 07/18/18 07/18/18 20:30 20:35 20:35 WBC RBC Hgb Hct MCV MCH MCHC RDW Plt Count MPV Absolute Neuts (auto) Neutrophils % Lymphocytes % Monocytes % Eosinophils % Basophils % Nucleated RBC % PT with INR INR Sodium Potassium Chloride Carbon Dioxide Anion Gap BUN Creatinine Creat Clearance w eGFR Random Glucose Lactic Acid Calcium Magnesium Total Bilirubin AST ALT Alkaline Phosphatase Troponin I < 0.02 Total Protein Albumin Lipase 243 Serum , Qual Negative 07/19/18 00:10 WBC RBC Hgb Hct MCV MCH MCHC RDW Plt Count MPV Absolute Neuts (auto) Neutrophils % Lymphocytes % Monocytes % Eosinophils % Basophils % Nucleated RBC % PT with INR INR Sodium Potassium Chloride Carbon Dioxide Anion Gap BUN Creatinine Creat Clearance w eGFR Random Glucose Lactic Acid 1.4 Calcium Magnesium Total Bilirubin AST ALT Alkaline Phosphatase Troponin I Total Protein Albumin Lipase Serum , Qual ASSESSMENT/PLAN: The patient is a 47 yo f w/ PMH HCV, GERD, ETOH pancreatitis who comes into the ED c/o a 1 day history of N/V and abdominal pain. #abdominal pain, N/V likely 2/2 ETOH gastritis -Patient's clinical story is consistent with pancreatitis, but with a normal lipase and negative CT findings, The patient only has 1/3 diagnostic criteria -Protonix 40mg IV BID -s/p GI cocktail in ED (protonix, famotidine, mylanta) -antiemetics contraindicated in this patient as her QTc is 496 and she is allergic to reglan and compazine #ETOH abuse -current CIWA 8 (N/V, SHOOK, anxiety) -will treat her with Ativan protocol (2mg IV Q6H GONZALEZ and 1mg IV Q1H PRN withdrawal ssx) -will administer banana bag #HTN -BP 161/120 on admission -per patient, she only gets hypertensive when sick -monitor BP for now, will have a low threshold for beginning antihypertensives #FEN -NS @ 75 while patient NPO -asif muellerl, will monitor -NPO until vomiting improved #prophy -Lovenox 40mg SQ daily #Dispo -admit med surg OBS Visit type - Emergency Visit Emergency Visit: Yes ED Registration Date: 07/19/18 Care time: The patient presented to the Emergency Department on the above date and was hospitalized for further evaluation of their emergent condition. - New Patient This patient is new to me today: Yes Date on this admission: 07/19/18 - Critical Care Critical Care patient: No Hospitalist Screening - Colonoscopy Questionnaire Colonoscopy Questionnaire: Colonoscopy Questionnaire - Patient: 50 - 75 years old and never had a screening colonoscopy: Unknown History of colon or rectal polyps, or CA: Unknown History of IBD, Crohn's disease or UC: Unknown History of abdominal radiation therapy as a child: Unknown - Relative: 1 with colon or rectal CA, or polyps at age 60 or younger: Unknown Colon or rectal CA diagnosed at age 45 or younger: Unknown Multiple relatives with colon or rectal CA: Unknown - Outcome: Screening Result: Negative Screen
[2018-07-19] MEDS ORDERED: LORazepam 2 MG/ML SDV VIAL ONE (04:17)
[2018-07-19] MEDS ORDERED: FOLIC ACID INJECTION - 1 MG, THIAMINE HCL 100 MG, MULTIVIT INJECTION ADULT 10 ML in SOD... IVPB ONE (04:45)
[2018-07-19 09:10] LABS: HEMATOCRIT 41.3 % (32.4-45.2); MCH 33.5 pg (25.7-33.7); MCHC 33.9 g/dl (32.0-36.0); MEAN CELL VOLUME 98.8 fl (80-96); MEAN PLT VOLUME 9.4 fl (7.5-11.1); PLATELET COUNT 129 K/MM3 (134-434); RBC 4.17 M/mm3 (3.60-5.2)
[2018-07-19 09:29] LABS: PROTHROMBIN TIME (PATIENT) 11.3 SEC (9.7-13.0)
[2018-07-19 09:31] LABS: ACTIVATED PTT 26.3 SECONDS (25.2-36.5)
--- NOTE | 2018-07-19 09:32 | PN ---
Physical Exam: SUBJECTIVE: Patient seen and examined at bedside this morning. She admits epigastric abdominal pain, and nausea without vomiting. Admits headache, tremors in fingertips with arms extended, slight sweating, and seeing "white spots" from the prior vomiting. Denies auditory or tactile hallucinations. Denies fevers, chills, shortness of breath, chest pain, palpitations, diarrhea. OBJECTIVE: Vital Signs Period Temp Pulse Resp BP Sys/Moore Pulse Ox Last 24 Hr 97.9 F-100.4 F 84-116 16-22 142-164/90-126 2-100 GENERAL: The patient is awake, alert, and fully oriented, in no acute distress. HEAD: Normocephalic, atraumatic. EYES: PERRLA, extraocular movements intact B/L. Sclera anicteric, and conjunctiva clear. ENT: Dry mucous membranes. Oropharynx clear without exudates or erythema. NECK: Supple without lymphadenopathy LUNGS: Good inspiratory effort B/L. Clear to auscultation bilaterally, no wheezes, no crackles. No accessory muscle use. HEART: Regular rate and rhythm, S1, S2 auscltated. Holosystolic murmur auscultated over left upper sternal border without radiation to carotid arteries B/L. ABDOMEN: Tender to palpation in epigastrum, radiating to B/L lower back. Soft, nondistended, normoactive bowel sounds X4 quadrants. No guarding, no rebound, no hepatosplenomegaly appreciated. EXTREMITIES: 2+ radial and dorsalis pedis pulses. Warm. No lower extremity edema B/L. Fine tremors noted in fingertips of B/L hands with arms outstretched. Strength 4 /5 b/l upper extremities in flexion, extension, abduction, adduction. Strength 4 /5 b/l lower extremities in hip flexion, extension, and knee flexion and extension. NEUROLOGICAL: Cranial nerves II through XII grossly intact. Normal speech. No gross focal deficits. PSYCH: Appropriate mood and affect upon my encounter today. SKIN: Warm, dry. No rashes or lesions noted Laboratory Results - last 24 hr 07/18/18 07/18/18 07/18/18 20:30 20:30 20:30 WBC 5.8 RBC 4.37 Hgb 14.8 Hct 42.7 MCV 97.9 H MCH 33.9 H MCHC 34.6 RDW 14.0 D Plt Count 161 D MPV 9.9 Absolute Neuts (auto) 4.9 Neutrophils % 84.5 H D Lymphocytes % 11.6 D Monocytes % 3.7 L Eosinophils % 0.0 D Basophils % 0.2 Nucleated RBC % 0 PT with INR 11.40 INR 1.01 Sodium 136 Potassium 3.5 Chloride 95 L Carbon Dioxide 24 Anion Gap 17 H BUN 12 Creatinine 1.0 Creat Clearance w eGFR 59.69 Random Glucose 123 H Lactic Acid Calcium 9.3 Magnesium 2.0 Total Bilirubin 0.9 AST 96 H ALT 84 H Alkaline Phosphatase 128 H Troponin I Total Protein 10.2 H Albumin 4.9 Lipase Serum , Qual 07/18/18 07/18/18 07/18/18 20:30 20:35 20:35 WBC RBC Hgb Hct MCV MCH MCHC RDW Plt Count MPV Absolute Neuts (auto) Neutrophils % Lymphocytes % Monocytes % Eosinophils % Basophils % Nucleated RBC % PT with INR INR Sodium Potassium Chloride Carbon Dioxide Anion Gap BUN Creatinine Creat Clearance w eGFR Random Glucose Lactic Acid Calcium Magnesium Total Bilirubin AST ALT Alkaline Phosphatase Troponin I < 0.02 Total Protein Albumin Lipase 243 Serum , Qual Negative 07/19/18 00:10 WBC RBC Hgb Hct MCV MCH MCHC RDW Plt Count MPV Absolute Neuts (auto) Neutrophils % Lymphocytes % Monocytes % Eosinophils % Basophils % Nucleated RBC % PT with INR INR Sodium Potassium Chloride Carbon Dioxide Anion Gap BUN Creatinine Creat Clearance w eGFR Random Glucose Lactic Acid 1.4 Calcium Magnesium Total Bilirubin AST ALT Alkaline Phosphatase Troponin I Total Protein Albumin Lipase Serum , Qual Active Medications Generic Name Dose Route Start Last Admin Trade Name Freq PRN Reason Stop Dose Admin Enoxaparin Sodium 40 mg 07/19/18 10:00 Lovenox - SQ DAILY GONZALEZ Sodium Chloride 1,000 mls @ 75 mls/hr 07/19/18 03:30 07/19/18 03:47 Normal Saline - IV 75 mls/hr ASDIR GONZALEZ Administration Folic Acid 1 mg/ Thiamine HCl 1,000 mls @ 125 mls/hr 07/19/18 04:45 07/19/18 05:34 100 mg/ Multivitamins/Minerals IVPB 07/19/18 12:44 125 mls/hr 10 ml/ Sodium Chloride ONCE ONE Administration Lorazepam 2 mg 07/19/18 04:00 07/19/18 04:25 Ativan Injection - IVPUSH 2 mg Q6H GONZALEZ Administration Lorazepam 1 mg 07/19/18 05:00 Ativan Injection - IVPUSH Q1H PRN AGITATION Pantoprazole Sodium 40 mg 07/19/18 10:00 Protonix Iv IVPUSH BID GONZALEZ IMAGING: Ultrasound RUQ abdomen: No biliary calculus noted. CBD shown dilated 0.7cm as was seen in prior study (12/2017). No cholecystitis, or cholelithiasis. CT scan abdomen/ pelvis: 11mm common bile duct dilation. No intraabdominal or retroperitoneal fluid collection or lymphadenopathy. ASSESSMENT/PLAN: Patient is a 47 year old female with history of alcohol-induced pancreatitis, GERD, Hepatitis C, presents with complaint of epigastric abdominal pain, nausea , vomiting for the past day. Epigastric abdominal pain -Unlikely pancreatitis as Lipase 243, and CT scan abdomen/ pelvis shows no significant pancreatic abnormalities. -May be secondary to alcohol-induced gastritis as she had been drinking 1 pint of vodka prior to incident, with history of ETOH abuse Alcohol dependence, withdrawal -CIWA score this morning is 9 (nausea +1, tremor +3, paroxysmal sweats +1, anxiety +1, visual disturbances +1, headache +2) -Patient receiving Folic acid, Thiamine, and Multivitamin IV -Librium protocol -Fall precautions Seizures -Reinstate Depakote 250mg PO in AM Depakote 500mg PO in PM Opiod dependence -Patient receives 30mg Methadone daily, confirmed. -QTc is 496 on admission EKG. Will follow up EKG tomorrow AM. Hypertension -Likely secondary to withdrawal. -Monitor BP closely. FEN -No IV fluids, patient tolerating oral intake -Will follow CMP -Regular diet Prophylaxis -Lovenox 40mg subq QD -Pantoprazole 40mg PO QD Disposition -Continue inpatient care in medical-surgical floor. Visit type - Emergency Visit Emergency Visit: Yes ED Registration Date: 07/19/18 Care time: The patient presented to the Emergency Department on the above date and was hospitalized for further evaluation of their emergent condition. - New Patient This patient is new to me today: Yes Date on this admission: 07/19/18 - Critical Care Critical Care patient: No - Discharge Referral Referred to [facility] No
[2018-07-19] MEDS: ENOXAPARIN NA (PORCINE) 40 MG/0.4 ML DISP.SYRIN SQ SCH (10:09)
[2018-07-19] MEDS: PANTOPRAZOLE SODIUM 40 MG VIAL IVPUSH SCH ×2 (10:09→22:31)
--- NOTE | 2018-07-19 10:21 | EKG ---
Test Reason : Blood Pressure : / mmHG Vent. Rate : 084 BPM Atrial Rate : 084 BPM P-R Int : 126 ms QRS Dur : 092 ms QT Int : 420 ms P-R-T Axes : 034 048 061 degrees QTc Int : 496 ms NORMAL SINUS RHYTHM MINIMAL VOLTAGE CRITERIA FOR LVH, MAY BE NORMAL VARIANT PROLONGED QT ABNORMAL ECG WHEN COMPARED WITH ECG OF 25-MAY-2018 11:01, CRITERIA FOR SEPTAL INFARCT ARE NO LONGER PRESENT Confirmed by NICOLE SÁNCHEZ, LIZZIE ([id number]) on 07/19/2018 10:21:45 AM Referred By: Confirmed By:LIZZIE RIVERA MD
[2018-07-19] MEDS ORDERED: LORazepam 2 MG/ML SDV VIAL IVPUSH SCH (11:15)
[2018-07-19] MEDS ORDERED: LORazepam 2 MG/ML SDV VIAL IVPUSH PRN (11:16)
[2018-07-19] MEDS ORDERED: chlordiazePOXIDE HCL 25 MG CAPSULE PO PRN (11:53)
[2018-07-19] MEDS: chlordiazePOXIDE HCL 25 MG CAPSULE PO SCH ×3 (12:52→22:31)
[2018-07-19 12:54] LABS: ANION GAP 16 MMOL/L (8-16); BLOOD UREA NITROGEN 15 mg/dL (7-18); CHLORIDE 105 mmol/L (98-107); CO2 18 mmol/L (21-32); CREATININE 0.8 mg/dL (0.55-1.3); GLUCOSE,RANDOM 132 mg/dL (74-106); MAGNESIUM 2.4 mg/dL (1.8-2.4); PHOSPHOROUS 2.1 mg/dL (2.5-4.9); POTASSIUM 3.7 mmol/L (3.5-5.1); SODIUM 139 mmol/L (136-145)
[2018-07-19 13:05] LABS: BILIRUBIN,DIRECT 0.2 mg/dL (0.0-0.2); BILIRUBIN,TOTAL 0.9 mg/dL (0.2-1); TOT PROT 8.5 g/dl (6.4-8.2)
[2018-07-19 13:33] LABS: CALCIUM 8.7 mg/dL (8.5-10.1)
[2018-07-19] MEDS ORDERED: METHADONE HCL 10 MG TABLET PO ONE (14:28)
--- NOTE | 2018-07-19 19:22 | PN ---
Teaching Attending Note Name of Resident: Varun Sauceda ATTENDING PHYSICIAN STATEMENT I saw and evaluated the patient. I reviewed the resident's note and discussed the case with the resident. I agree with the resident's findings and plan as documented. SUBJECTIVE: No fever or chills. hungry wants to eat . denies abd pain. has nausea no dysuria . contto drink alcohol OBJECTIVE: NAD. CV: RRR, no MRG lungs: CTAB Ext: no edema or erythema Abd: non distended , TTP in epigastric area . NL BS . soft. ASSESSMENT AND PLAN: 47 y/o lady with h/o ETOH abuse, Opioid abuse on methadone, chronic Hep C, chronic pancreatitis, bipolar disorder, who presented with abd ain, N/V . 1- Abd pain, N/V: likely due to gastritis form alcohol use . cyclic vomiting syndrome in DDx given her continued marijuana use. unlikely pancreatitis - try regular diet , tolerated clears initially and refuses more clears - compazine for nausea if needed. - IVF - PPI - dilated pancreatic duct on previous US , f/u with MRI as out patient 2- transaminitis: likely due to alcohol use monitor 3- Prolonged QTc: likely due to methadone . pharmacy called, she did not pick trazodone, and seroquel lately ( lat may 10 ) repeat EKG in am will contact substance abuse MD to evaluate for does reductionof methadone 4- ETOH withdrawal : - dc ativan and start librium taper - MVT thiamine dispo : [facility]LOC
[2018-07-19] MEDS ORDERED: DIVALPROEX SODIUM 500 MG TABLET E.C. PO SCH (22:00)
[2018-07-19] MEDS: GABAPENTIN 100 MG CAPSULE (FP) PO SCH (22:30)
[2018-07-20] MEDS ORDERED: METHADONE HCL 10 MG TABLET PO SCH (06:00)
[2018-07-20] MEDS: chlordiazePOXIDE HCL 25 MG CAPSULE PO SCH (06:15)
[2018-07-20] MEDS: GABAPENTIN 100 MG CAPSULE (FP) PO SCH ×2 (06:16→13:10)
[2018-07-20] MEDS ORDERED: DIVALPROEX SODIUM 250 MG TABLET E.C. PO SCH (07:00)
[2018-07-20 07:59] LABS: HEMATOCRIT 40.9 % (32.4-45.2); HEMOGLOBIN 13.7 GM/dL (10.7-15.3); MCH 33.3 pg (25.7-33.7); MCHC 33.6 g/dl (32.0-36.0); MEAN CELL VOLUME 99.2 fl (80-96); MEAN PLT VOLUME 10.3 fl (7.5-11.1); PLATELET COUNT 101 K/MM3 (134-434); RBC 4.12 M/mm3 (3.60-5.2); RDW 13.8 % (11.6-15.6); WHITE BLOOD COUNT 6.4 K/mm3 (4.0-10.0)
[2018-07-20] MEDS ORDERED: NAPH,MB-DB/K PH,MBDB POWDER PACKET PO ONE ×2 (08:38→18:00)
[2018-07-20 08:57] LABS: ALBUMIN 3.4 g/dl (3.4-5.0); ANION GAP 7 MMOL/L (8-16); BLOOD UREA NITROGEN 16 mg/dL (7-18); CALCIUM 8.6 mg/dL (8.5-10.1); CHLORIDE 103 mmol/L (98-107); CO2 25 mmol/L (21-32); GLUCOSE,RANDOM 87 mg/dL (74-106); MAGNESIUM 2.1 mg/dL (1.8-2.4); POTASSIUM 4.5 mmol/L (3.5-5.1); SGOT/AST 47 U/L (15-37); SGPT/ALT 54 U/L (13-61); SODIUM 135 mmol/L (136-145)
[2018-07-20 08:59] LABS: ALK PHOS 90 U/L (45-117); BILIRUBIN,TOTAL 0.6 mg/dL (0.2-1); CREATININE 0.9 mg/dL (0.55-1.3); PHOSPHOROUS 1.7 mg/dL (2.5-4.9); TOT PROT 7.5 g/dl (6.4-8.2)
[2018-07-20] MEDS: ENOXAPARIN NA (PORCINE) 40 MG/0.4 ML DISP.SYRIN SQ SCH (09:34)
--- NOTE | 2018-07-20 09:56 | EKG ---
Test Reason : Blood Pressure : / mmHG Vent. Rate : 084 BPM Atrial Rate : 084 BPM P-R Int : 130 ms QRS Dur : 086 ms QT Int : 384 ms P-R-T Axes : -08 050 049 degrees QTc Int : 453 ms NORMAL SINUS RHYTHM MINIMAL VOLTAGE CRITERIA FOR LVH, MAY BE NORMAL VARIANT BORDERLINE ECG WHEN COMPARED WITH ECG OF 18-JUL-2018 20:01, NO SIGNIFICANT CHANGE WAS FOUND Confirmed by YAMIL SÁNCHEZ, KELLY ([id number]) on 07/20/2018 9:55:57 AM Referred By: JONAS TATE Confirmed By:KELLY LOBO MD
[2018-07-20] MEDS ORDERED: QUEtiapine FUMARATE 200 MG TABLET PO ONE (09:58)
[2018-07-20] MEDS ORDERED: FOLIC ACID 1 MG TABLET (FP) PO SCH (10:00)
[2018-07-20] MEDS ORDERED: THIAMINE HCL 100 MG TABLET (FP) PO SCH (10:00)
[2018-07-20] MEDS ORDERED: PANTOPRAZOLE 40 MG TABLET (FP) PO SCH (10:00)
[2018-07-20] MEDS ORDERED: MULTIVITAMINS (DAILY MVI) TABLET (FP) PO SCH (10:00)
[2018-07-20] MEDS ORDERED: chlordiazePOXIDE HCL 25 MG CAPSULE PO SCH (11:00)
--- NOTE | 2018-07-20 11:58 | PN ---
Teaching Attending Note Name of Resident: Varun Sauceda ATTENDING PHYSICIAN STATEMENT I saw and evaluated the patient. I reviewed the resident's note and discussed the case with the resident. I agree with the resident's findings and plan as documented. SUBJECTIVE: no abd pain today, no fever or chills. tolerated regular diet after she refused full liquids OBJECTIVE: NAD. CV: RRR, no MRG lungs: CTAB Ext: no edema or erythema Abd: non distended , mild TTp in epigastric area and suprapubic area ASSESSMENT AND PLAN: 47 y/o lady with h/o ETOH abuse, Opioid abuse on methadone, chronic Hep C, chronic pancreatitis, bipolar disorder, who presented with abd ain, N/V . 1- Abd pain, N/V: likely due to gastritis form alcohol use . cyclic vomiting syndrome in DDx given her continued marijuana use. - cont regular diet - PPI - counseled about alcohol use again - oral hydration - dilated CBD on US, seen on previous admissions. will offer MRCP ( reused in past ) 2- Transaminitis: likely due to alcohol use . unlikely due to CBD stones monitor 3- Prolonged QTc: likely due to methadone . repeat EKG with improvement 453. d/w Dr. Nails yesterday and recs were made not to decrease methadone dose due to relapse risk 4- ETOH withdrawal : - cont librium taper - MVT thiamine 5- replete phos dispo : if she refuse MRI, then can arrange for [facility] care transfer for detox ( if patient agrees )
--- NOTE | 2018-07-20 12:01 | CONSULT ---
Consult Detox [facility] Reason for Current Admission/Consult: alcohol use and in OTP methadone - History History of Present Illness: Pt has a long h/o of alcohol use with many admissions to [facility] for detox. Pt states she overate 2 days prior to admission and then had a lot of alcohol. Pt states she had persistent nausea and vomiting through the night and presented to ER. Pt states feels better today. - History Source History Provided By: Patient Limitations to Obtaining History: No Limitations - Alcohol/Substance Use Hx Alcohol Use: Yes (detox protocol now) Hx Substance Use: Yes (h/o heroin use- now on methadone) - Past Medical History Gastrointestinal: Yes: Gastritis, Pancreatitis Hepatobiliary: Yes: Hepatitis C ...LMP: 04/01/18 Infectious Disease: Yes: HIV, Other (hcv) Psych: Yes: Addictions, Bipolar - Past Surgical History Past Surgical History: Yes: None - Significant Medical Findings: pt was r/o'd out for pancreatitis, presumed diagnosis of gastritis from alcohol use. CIWA Score - CIWA Score Nausea/Vomitin-Mild Nausea/No Vomiting Muscle Tremors: 1-None Visible, but [place] Anxiety: 1-Mildly Anxious Agitation: 1-Slight > Activity Paroxysmal Sweats: 1-Minimal Palms Moist Orientation: 0-Oriented Tacttile Disturbances: 0-None Auditory Disturbances: 0-None Visual Disturbances: 0-None Headache: 0-None Present CIWA-Ar Total Score: 5 Assessment Plan - Plan Plan: Pt seems to be improved from gastritis- no n/v. Pt currently on alcohol detox protocol. Pt does not want to continue with the detox protocol at [facility]. If given a choice, pt prefers to go home. Pt will continue in our methadone program at [facility] after discharge. Please call us back if we can be of further assistance: [phone] - Medication Detox Regimen/Protocol: Danika
[2018-07-20 15:09] VITALS: BP 105/67; PULSE 98; TEMP 98
--- NOTE | 2018-07-20 15:25 | DS ---
Physical Exam: SUBJECTIVE: Patient seen and examined at bedside this morning. She admits improvement in epigastric abdominal pain, nausea. However admits cramping, spasmodic 5/10 right lower quadrant abdominal pain. No vomiting overnight. Admits diminishing tremors with outstretched hands, and diminished photophobia. Denies visual, auditory or tactile hallucinations today. Denies fevers, chills, shortness of breath, chest pain, palpitations, diarrhea, falls loss of consciousness today. OBJECTIVE: Vital Signs Period Temp Pulse Resp BP Sys/Moore Pulse Ox Last 24 Hr 97.6 F-98.7 F 85-104 20-20 105-119/67-90 98 PHYSICAL EXAM GENERAL: The patient is awake, alert, and fully oriented, in no acute distress. HEAD: Normocephalic, atraumatic. EYES: PERRLA, extraocular movements intact B/L. Sclera anicteric, and conjunctiva clear. ENT: Dry mucous membranes. Oropharynx clear without exudates or erythema. NECK: Supple without lymphadenopathy LUNGS: Good inspiratory effort B/L. Clear to auscultation bilaterally, no wheezes, no crackles. No accessory muscle use. HEART: Regular rate and rhythm, S1, S2 auscltated. Holosystolic murmur auscultated over left upper sternal border without radiation to carotid arteries B/L. ABDOMEN: Tender to palpation in epigastrum, radiating to B/L lower back. Soft, nondistended, normoactive bowel sounds X4 quadrants. No guarding, no rebound, no hepatosplenomegaly appreciated. EXTREMITIES: 2+ radial and dorsalis pedis pulses. Warm. No lower extremity edema B/L. Very fine tremors noted in fingertips of B/L hands with arms outstretched. Strength 5/5 b/l upper extremities in flexion, extension, abduction, adduction. Strength 4/5 b/l lower extremities in hip flexion, extension, and knee flexion and extension. NEUROLOGICAL: Cranial nerves II through XII grossly intact. Normal speech. No gross focal deficits. SKIN: Warm, dry. No rashes or lesions noted LABS Laboratory Results - last 24 hr 07/20/18 07/20/18 07:00 07:00 WBC 6.4 RBC 4.12 Hgb 13.7 Hct 40.9 MCV 99.2 H MCH 33.3 MCHC 33.6 RDW 13.8 Plt Count 101 L D MPV 10.3 Sodium 135 L Potassium 4.5 Chloride 103 Carbon Dioxide 25 Anion Gap 7 L BUN 16 Creatinine 0.9 Creat Clearance w eGFR > 60 Random Glucose 87 Calcium 8.6 Phosphorus 1.7 L Magnesium 2.1 Total Bilirubin 0.6 AST 47 H ALT 54 Alkaline Phosphatase 90 Total Protein 7.5 Albumin 3.4 HOSPITAL COURSE: Date of Admission:07/19/18 Date of Discharge: 07/20/18 Patient is a 47 year old female with history of alcohol-induced pancreatitis, GERD, Hepatitis C, presents with complaint of epigastric abdominal pain, nausea , vomiting for the past day after drinking 1 pint of vodka. Ultrasound or RUQ abdomen showed no biliary calculus noted. CBD shown dilated 0.7cm as was seen in prior study (12/2017). No cholecystitis, or cholelithiasis. CT scan abdomen/ pelvis showed 11mm common bile duct dilation. No intraabdominal or retroperitoneal fluid collection or lymphadenopathy. Her EKG showed normal sinus rhythm QTc of 496. Following days EKG showed QTc of 453. Epigastric abdominal pain was unlikely pancreatitis james lipase was 243, and CT scan abdomen/ pelvis shows no significant pancreatic abnormalities. CIWA score was initially 9 and decreased to 6 the next day. She received Folic acid, Thiamine, and Multivitamin IV in ED in addition to Protonix, Famotidine, and Mylanta. Her BP was elevated to 161/20 upon admission, likely secondary to the withdrawal. She states she does not have history of HTN, and is not on any medications for her BP. She was started on Ativan protocol, and changed to Librium protocol in anticipation for transfer to [facility] for continuation of her alcohol detoxification. She initially accepted the plan, however as a bed was not available the same day, she became upset stating she did not want to stay in the hospital and requested to sign out against medical advice. She was informed of the importance of continuing the Librium and the importance of continuing care at [facility]. She was also informed of the risks of leaving the hospital including acute withdrawal symptoms, dizziniess, lightheadedness, falls , trauma to head or any other part of the body, hemorrhage, worsening condition and . She expressed understanding and proceeded to sign out against medical advice. She was advised to follow up with her primary care doctor, Records Assistant, and GI physician within one week. She was advised to continue follow up with Methadone clinic daily as necessary. Minutes to complete discharge: 35 Discharge Summary Reason For Visit: ABDOMINAL PAIN VOMITING FEVER Current Active Problems Abdominal pain (Acute) Fever (Acute) Vomiting (Acute) Condition: Guarded - Instructions Diet, Activity, Other Instructions: You were admitted for stomach pain, and vomiting. You were treated with intravenous medicine for nausea. Your CAT scan was negative for pancreatitis. You had some tremors in your arms, likely from the alcohol, and were given medication for the withdrawal. We wanted to transfer you to [facility] for further care of your alcohol detoxification and withdrawal, however you refused and requested to leave against medical advice. We discussed the risks of you leaving the hospital including sudden withdrawal symptoms of tremors and dizziness, falls, loss of consciousness, trauma to the head or any other part of the body, worsening condition, and . Continue taking your seizure medications as prescribed. Continue your follow up with the Methadone clinic. Your Seroquel dose has been changed to 200mg daily. We stopped the amitryptilline, because it was causing some changes in the EKG of your heart Please follow up with a spring tester to have a repeat EKG in a weeks time Follow up with a stomach doctor in a week's time. You may need an MRI to look at the gallbladder as it had an enlarged duct. Follow up with your primary care doctor in one week. Please return to the nearest Emergency Room if you experience and chest pain, palpitations, lightheadedness, dizziness, falls, loss of consciousness, hallucinations, anxiety, worsening tremors, abdominal pain, nausea, or vomiting. Referrals: Namrata Arce NP [Primary Care Provider] - Ishaan Wyatt MD [Staff Physician] - 1 Week Jameson Lares MD [Staff Physician] - 1 Week Disposition: AGAINST MEDICAL ADVICE - Home Medications Comprehensive Discharge Medication List: Ambulatory Orders Vitamins (Sjr) - 1 tab PO DAILY tablet 03/06/18 Thiamine HCl [Vitamin B1 -] 100 mg PO HS tablet 03/06/18 Methadone [Dolophine -] 30 mg PO DAILY 04/16/18 Divalproex [Depakote -] 250 mg PO AM #30 tablet.ec 05/09/18 Divalproex [Depakote -] 500 mg PO HS #30 tablet.ec 05/09/18 Docusate Sodium [Colace -] 100 mg PO BID PRN #60 capsule 05/09/18 Folic Acid - 1 mg PO DAILY #30 tablet 05/09/18 Gabapentin 100 mg PO TID #30 capsule 05/09/18 Folic Acid - 1 mg PO DAILY #30 tablet 07/20/18 Multivitamins [Multivit ([facility] Formulary)] 1 tab PO DAILY #30 tab 07/20/18 Pantoprazole Sodium [Protonix -] 40 mg PO BID #28 tablet.ec 07/20/18 Quetiapine Fumarate [Seroquel -] 200 mg PO DAILY tablet 07/20/18 This patient is new to me today: No Emergency Visit: Yes ED Registration Date: 07/19/18 Care time: The patient presented to the Emergency Department on the above date and was hospitalized for further evaluation of their emergent condition. Critical Care patient: No - Discharge Referral Referred to [facility] No
[2018-07-21] MEDS ORDERED: QUEtiapine FUMARATE 200 MG TABLET PO SCH (10:00)
[2018-07-21] MEDS ORDERED: chlordiazePOXIDE 5 MG CAPSULE PO SCH (11:00)
[2018-07-22] MEDS ORDERED: chlordiazePOXIDE HCL 10 MG CAPSULE PO SCH (11:00)
== END 2018-07-20 15:26 | disposition left against medical advice (07) | DRG 282 ==
LOC: JER 18:21 → JERBED 07-19 01:05 → UNDOADMOB 07-19 02:24 → JERBED 07-19 02:24 → J5S 07-19 04:54 → OBSVTOIN 07-19 08:49 → J5S 07-19 10:11
PROVIDERS: ADMIT Internal Medicine; ATTEND Internal Medicine
PROC: HZ2ZZZZ Detoxification Services for Substance Abuse Treatment (ICD-10-PCS; principal; 2018-07-18)
DX: K86.0 Alcohol-induced chronic pancreatitis (principal); K29.20 Alcoholic gastritis without bleeding; B19.20 Unspecified viral hepatitis C without hepatic coma; K21.9 Gastro-esophageal reflux disease without esophagitis; F31.9 Bipolar disorder, unspecified; F17.210 Nicotine dependence, cigarettes, uncomplicated; E88.89 Other specified metabolic disorders; I10 Essential (primary) hypertension; R56.9 Unspecified convulsions; F11.20 Opioid dependence, uncomplicated; F10.230 Alcohol dependence with withdrawal, uncomplicated; I45.81 Long QT syndrome; H53.149 Visual discomfort, unspecified
CPT/HCPCS: 36415; 71045-TC-FY; 74177-TC; 76705-TC; 80048; 80053; 80076; 83605; 83690; 83735; 84100; 84484; 84703; 85025; 85027; 85610; 85730; 87804; 93005; 93010; 99285-25; G0378; J0131; J7030

== ENCOUNTER 2018-08-12 08:57 | Observation (INO) | payer OTHER ==
--- NOTE | 2018-08-12 09:00 | PDOC ---
History of Present Illness - General Chief Complaint: Pain, Acute Stated Complaint: ABD PAIN Time Seen by Provider: 08/12/18 09:00 History Source: Patient - History of Present Illness Initial Comments: 08/12/18 09:01 The patient is a 47 year old female with a PMH of Hepatitis C (currently on Harvoni), Pancreatitis, ETOH abuse, heroin abuse (on Methadone 30 mg QD) and BPD who presents to our ED this morning c/o multiple episodes of emesis and epigastric pain. Multiple episodes of NBNB emesis starting at 12 p.m. last night. Pain is epigastric, sharp, constant, 10/10 and radiates to her back. States pain is consistent with previous episodes of pancreatitis. Endorses associated shortness of breath. Patient states she drinks 1 pint of vodka daily and declines information about detox. Last drink was 11 p.m. yesterday evening. Patient denies chest pain, subjective fever, palpitations, lightheadedness, recent travel or sick contacts. Allergy: Metoclopramide, Prochlorperazine, Haldol, mirtazapine Surgical: C/S Social: 5 cigarettes daily, daily marijuana and 1 pint vodka daily Past History - Past Medical History Allergies/Adverse Reactions: Allergies Allergy/AdvReac Type Severity Reaction Status Date / Time metoclopramide HCl Allergy Severe dystonic Verified 08/12/18 09:02 [From Reglan] reaction prochlorperazine maleate Allergy Severe DYSTONIA Verified 08/12/18 09:02 [From Compazine] haloperidol [From Haldol] Allergy Verified 08/12/18 09:02 mirtazapine [From Remeron] AdvReac Severe Difficulty Verified 08/12/18 09:02 Breathing Home Medications: Ambulatory Orders Vitamins (Sjr) - 1 tab PO DAILY tablet 03/06/18 Thiamine HCl [Vitamin B1 -] 100 mg PO HS tablet 03/06/18 Methadone [Dolophine -] 30 mg PO DAILY 04/16/18 Divalproex [Depakote -] 250 mg PO AM #30 tablet.ec 05/09/18 Divalproex [Depakote -] 500 mg PO HS #30 tablet.ec 05/09/18 Docusate Sodium [Colace -] 100 mg PO BID PRN #60 capsule 05/09/18 Folic Acid - 1 mg PO DAILY #30 tablet 05/09/18 Gabapentin 100 mg PO TID #30 capsule 05/09/18 Multivitamins [Multivit ([facility] Formulary)] 1 tab PO DAILY #30 tab 07/20/18 Pantoprazole Sodium [Protonix -] 40 mg PO BID #28 tablet.ec 07/20/18 Quetiapine Fumarate [Seroquel -] 200 mg PO DAILY tablet 07/20/18 Anemia: Yes (as a teen, had iron and transfusions) Asthma: Yes (ON MDI) Cancer: No Cardiac Disorders: No CVA: No COPD: No CHF: No Dementia: No Diabetes: No GI Disorders: Yes (several admissions for etoh-related pancreatitis) Disorders: No HTN: No Hypercholesterolemia: No Kidney Stones: No Liver Disease: Yes (hepatitis C, not treated ) Psychiatric Problems: Yes (bipolar) Seizures: No Thyroid Disease: No - Surgical History Abdominal Surgery: No Appendectomy: No Cardiac Surgery: No Cholecystectomy: No Lung Surgery: No Neurologic Surgery: No Orthopedic Surgery: No - Reproductive History (#): 13 Para: 11 PID: No - Immunization History Immunization Up to Date: No - Suicide/Smoking/Psychosocial Hx Smoking History: Current every day smoker Have you smoked in the past 12 months: Yes Number of Cigarettes Smoked Daily: 5 Cigars Per Day: 0 'Breaking Loose' booklet given: 05/25/18 Hx Alcohol Use: No (detox) Drug/Substance Use Hx: No (stopped years ago) Substance Use Type: Heroin Hx Substance Use Treatment: Yes (multiple modalities of treatments ,no significant clean time) Review of Systems - Review of Systems Constitutional: No: Chills, Fever Respiratory: Yes: Shortness of Breath. No: Wheezing, Hemoptysis Cardiac (ROS): No: Chest Pain, Lightheadedness, Palpitations ABD/GI: Yes: Abdominal cramping. No: Blood Streaked Bowels, Constipated, Diarrhea, Nausea, Vomiting, Tarry Stools : No: Burning, Dysuria *Physical Exam - Physical Exam General Appearance: Yes: Nourished, Thin HEENT: positive: Normal Voice, Hearing Grossly Normal Neck: positive: Trachea midline, Supple Respiratory/Chest: positive: Lungs Clear, Normal Breath Sounds. negative: Labored Respiration, Rapid RR, Crackles, Wheezing Cardiovascular: positive: S1, S2. negative: Edema, JVD Vascular Pulses: Dorsalis-Pedis (R): 2+, Doralis-Pedis (L): 2+ Gastrointestinal/Abdominal: positive: Soft, Other (Epigastric TTP) Musculoskeletal: negative: CVA Tenderness (R), CVA Tenderness (L) Extremity: positive: Normal Capillary Refill, Normal Inspection Integumentary: positive: Normal Color, Dry, Warm Neurologic: positive: Fully Oriented, Alert ED Treatment Course - LABORATORY CBC & Chemistry Diagram: 08/12/18 11:49 08/12/18 09:58 Medical Decision Making - Medical Decision Making 08/12/18 09:41 47 year old female with epigastric abdominal pain + multiple episodes of NBNB emesis. Hypertensive at presentation. Epigastric TTP. DDX: Alcoholic gastritis, Pancreatitis 2/2 to ETOH abuse, Viral Gastritis, PUD, less likely r/o ACS (abdominal pain as anginal equivalent), early appendicitis, cholecystitis, SBO, mesenteric ischemia, bowel perforation. Will obtain basic labs, lipase, EKG, Troponin x1. IV NS. Repeat BP s/p symptomatic care. Reassess. 08/12/18 11:32 AST 779 (47 in 07/2018) and ALT 431 (54 in 07/2018) - suspect elevated LFT's 2/ 2 to alcoholic ETOH vs. biliary disease 08/12/18 11:47 CBC hemolyzed - awaiting repeat 08/12/18 12:18 Patient reassessed @ bedside - c/o pain U/S pending 08/12/18 12:40 Case d/w [employer] hospitalist Patient accepted for inpatient admission. 08/12/18 15:42 Gallbladder U/S shows ductal dilitation (c/w previous ECG) and pericholecystic fluid Patient transferred to inpatient medicine floor Clinical Impression: Acute Hepatitis ? 2/2 to ETOH *DC/Admit/Observation/Transfer Diagnosis at time of Disposition: Elevated liver enzymes - Discharge Dispostion Condition at time of disposition: Fair Decision to Admit order: Yes - Referrals - Patient Instructions - Post Discharge Activity
[2018-08-12] MEDS ORDERED: SODIUM CHLORIDE 0.9% 500 ML INFUS.BAG IV ONE (09:27)
[2018-08-12] MEDS ORDERED: FAMOTIDINE 20 MG/50 ML IVPB 20 MG/50 ML MG IVPB ONE ×2 (09:27→09:30)
[2018-08-12] MEDS ORDERED: ONDANSETRON 4 MG/2 ML VIAL IVPUSH ONE ×2 (09:28→12:16)
[2018-08-12] MEDS ORDERED: ONDANSETRON 4 MG/2 ML VIAL ONE ×2 (09:30→12:17)
--- NOTE | 2018-08-12 09:35 | PDOC ---
Attending Attestation - Resident Resident Name: Tyler Zimmermanica - ED Attending Attestation I have performed the following: I have examined & evaluated the patient, The case was reviewed & discussed with the resident, I agree w/resident's findings & plan, Exceptions are as noted - HPI HPI: 08/12/18 09:31 47-year-old female with past medical history of hepatitis C, GERD, alcoholic pancreatitis, bipolar disorder, current methadone use presents with multiple episodes of nausea vomiting. The patient has drank approximate pint of hard liquor last night. Since then, patient has developed epigastric pain with multiple episodes of nausea vomiting. Patient reports that this feels exactly like her pancreatitis. Denies diarrhea or fevers. Brought in by EMS. - Physicial Exam PE: 08/12/18 09:31 GENERAL: Awake, alert, and fully oriented, in no acute distress HEAD: No signs of trauma EYES: EOMI, sclera anicteric, conjunctiva clear ENT: Auricles normal inspection, hearing grossly normal, nares patent, dry mucous membranes NECK: Normal ROM, supple, ABDOMEN: Soft, TTP epigastric. NEUROLOGICAL: Cranial nerves II through XII grossly intact. Normal speech SKIN: Warm, Dry, normal turgor, no rashes or lesions noted. - Medical Decision Making 08/12/18 09:32 Vital Signs Temp Pulse Resp BP Pulse Ox 99.6 F 77 19 174/118 H 99 08/12/18 08:59 08/12/18 08:59 08/12/18 08:59 08/12/18 08:59 08/12/18 08:59 47-year-old female presents with epigastric pain after he alcohol. Differential includes gastritis versus alcoholic pancreatitis. We'll treat symptoms and give pain medications. IV fluids. Labs including lipase. Reassess. 08/12/18 11:03 CBC, BMP 08/12/18 09:58 08/12/18 09:58 CMP Sodium 136 mmol/L (136-145) 08/12/18 09:58 Potassium 3.7 mmol/L (3.5-5.1) 08/12/18 09:58 Chloride 105 mmol/L (98-107) 08/12/18 09:58 Carbon Dioxide 24 mmol/L (21-32) 08/12/18 09:58 Anion Gap 7 MMOL/L (8-16) L 08/12/18 09:58 BUN 10 mg/dL (7-18) 08/12/18 09:58 Creatinine 0.6 mg/dL (0.55-1.3) 08/12/18 09:58 Creat Clearance w eGFR > 60 (>60) 08/12/18 09:58 Random Glucose 157 mg/dL (74-106) H 08/12/18 09:58 Calcium 8.6 mg/dL (8.5-10.1) 08/12/18 09:58 Total Bilirubin 0.8 mg/dL (0.2-1) 08/12/18 09:58 AST 779 U/L (15-37) H 08/12/18 09:58 ALT 431 U/L (13-61) H 08/12/18 09:58 Alkaline Phosphatase 318 U/L (45-117) H 08/12/18 09:58 Creatine Kinase 141 IU/L (26-192) 08/12/18 09:58 Troponin I < 0.02 ng/ml (0.00-0.05) 08/12/18 09:58 Total Protein 7.9 g/dl (6.4-8.2) 08/12/18 09:58 Albumin 3.6 g/dl (3.4-5.0) 08/12/18 09:58 Lipase 263 U/L (73-393) 08/12/18 09:58 Serum , Qual Negative 08/12/18 09:58 LFTs elevated more than baseline. Could this be alcohol hepatitis or her hepatitis C? Prior ultrasound 1 month ago showed no gallstones but mildly elevated CBD Will repeat RUQ ultrasound. Admit. Heart Score/ECG Review #1 ECG reviewed & interpreted by me at: 10:35 08/12/18 10:46 NSR 72, LVH, no std/cynthia, normal axis, normal intervals, QTC 453 msec
[2018-08-12 10:55] LABS: ALBUMIN 3.6 g/dl (3.4-5.0); ALK PHOS 318 U/L (45-117); ANION GAP 7 MMOL/L (8-16); BILIRUBIN,TOTAL 0.8 mg/dL (0.2-1); BLOOD UREA NITROGEN 10 mg/dL (7-18); CALCIUM 8.6 mg/dL (8.5-10.1); CHLORIDE 105 mmol/L (98-107); CO2 24 mmol/L (21-32); CREATININE 0.6 mg/dL (0.55-1.3); GLUCOSE,RANDOM 157 mg/dL (74-106); LIPASE 263 U/L (73-393); POTASSIUM 3.7 mmol/L (3.5-5.1); SGOT/AST 779 U/L (15-37); SGPT/ALT 431 U/L (13-61); SODIUM 136 mmol/L (136-145); TOT PROT 7.9 g/dl (6.4-8.2)
[2018-08-12 11:41] LABS: BASO % 0.5 % (0-2.0); EOS % 0.4 % (0-4.5); HEMATOCRIT 16.1 % (32.4-45.2); LYMPH % 17.1 % (8-40); MCH 34.2 pg (25.7-33.7); MCHC 33.7 g/dl (32.0-36.0); MEAN CELL VOLUME 101.4 fl (80-96); MEAN PLT VOLUME 9.2 fl (7.5-11.1); MONO % 4.9 % (3.8-10.2); NEUT % 77.1 % (42.8-82.8); RBC 1.59 M/mm3 (3.60-5.2); RDW 14.6 % (11.6-15.6)
[2018-08-12] MEDS ORDERED: morphine CARPU-JECT 4 MG/1 ML DISP.SYRIN IVPUSH ONE (12:15)
[2018-08-12] MEDS ORDERED: morphine SULFATE 4 MG/ML VIAL ONE (12:16)
[2018-08-12 12:23] LABS: BASO % 0.5 % (0-2.0); EOS % 0.1 % (0-4.5); HEMATOCRIT 39.8 % (32.4-45.2); HEMOGLOBIN 13.6 GM/dL (10.7-15.3); LYMPH % 15.9 % (8-40); MCHC 34.3 g/dl (32.0-36.0); MEAN CELL VOLUME 99.2 fl (80-96); MEAN PLT VOLUME 9.7 fl (7.5-11.1); MONO % 4.2 % (3.8-10.2); NEUT % 79.3 % (42.8-82.8); PLATELET COUNT 112 K/MM3 (134-434); RBC 4.01 M/mm3 (3.60-5.2); RDW 14.6 % (11.6-15.6); WHITE BLOOD COUNT 4.9 K/mm3 (4.0-10.0)
[2018-08-12 13:26] LABS: HEMOGLOBIN 5.4 GM/dL (10.7-15.3)
[2018-08-12 13:30] LABS: PLATELET COUNT 51 K/MM3 (134-434)
[2018-08-12 13:31] LABS: WHITE BLOOD COUNT 2.1 K/mm3 (4.0-10.0)
[2018-08-12 15:33] VITALS: BMI 21.1
[2018-08-12] MEDS ORDERED: METHADONE HCL 10 MG TABLET PO ONE (15:48)
[2018-08-12] MEDS ORDERED: LORazepam 2 MG/ML SDV VIAL IVPUSH ONE (16:00)
[2018-08-12] MEDS ORDERED: LABETALOL HCL 100 MG TABLET (FP) PO STA (17:56)
--- NOTE | 2018-08-12 17:56 | HP ---
CHIEF COMPLAINT: Abdominal pain with nausea and vomiting PCP: Namrata Arce HISTORY OF PRESENT ILLNESS: 47 year old female with a PMH significant for Hepatitis C, pancreatitis, ETOH abuse, Heroin abuse (on Methadone), and biopolar disorder presented to the emergency department this morning c/o epigastric pain and several episodes of clear bile emesis. Vomiting started at around 12 AM last night when she was sleeping. Pain in her abdomen is worse in the upper quadrants and is sharp, continuous with radiation to her back. Patient reports that her pain and vomiting are similar to when she has had pancreatitis in the past. She reports she drinks 1 pint of vodka per day and her most recent drink was last night. She has gone through ETOH detox several times in the past, most recently several months ago month ago. Denies subjective fever, chest pain, SOB, diarrhea/constipation ER course was notable for: (1) BP 174/118 (2) T 99.6 (3) Lipase 263 (4) AST 779, ALT 431, Alk phos 318 (5) Zofran 4 mg, NS 1 liter, Morphine 4 mg, and pepcid Recent Travel: No PAST MEDICAL HISTORY: Hepatitis C Pancreatitis ETOH abuse Methadone dependency Bipolar disorder PAST SURGICAL HISTORY: CSection x2 w/ tubal ligation on the second Social History: Smokin cigarettes/day Alcohol: 1 pint of vodka/day Drugs: former heroin user Allergies metoclopramide HCl [From Reglan] Allergy (Severe, Verified 08/12/18 09:02) dystonic reaction dystonic reaction prochlorperazine maleate [From Compazine] Allergy (Severe, Verified 08/12/18 09: 02) DYSTONIA haloperidol [From Haldol] Allergy (Verified 08/12/18 09:02) mirtazapine [From Remeron] Adverse Reaction (Severe, Verified 08/12/18 09:02) Difficulty Breathing HOME MEDICATIONS: Home Medications Medication Instructions Recorded Vitamins (Sjr) - 1 tab PO DAILY tablet 03/06/18 Thiamine HCl [Vitamin B1 -] 100 mg PO HS tablet 03/06/18 Methadone [Dolophine -] 30 mg PO DAILY 04/16/18 Divalproex [Depakote -] 250 mg PO AM #30 tablet.ec 05/09/18 Divalproex [Depakote -] 500 mg PO HS #30 tablet.ec 05/09/18 Docusate Sodium [Colace -] 100 mg PO BID PRN #60 capsule 05/09/18 Folic Acid - 1 mg PO DAILY #30 tablet 05/09/18 Gabapentin 100 mg PO TID #30 capsule 05/09/18 Multivitamins [Multivit ([facility] 1 tab PO DAILY #30 tab 07/20/18 Formulary)] Pantoprazole Sodium [Protonix -] 40 mg PO BID #28 tablet.ec 07/20/18 Quetiapine Fumarate [Seroquel -] 200 mg PO DAILY tablet 07/20/18 REVIEW OF SYSTEMS CONSTITUTIONAL: +generalized weakness, loss of appetite Absent: fever, chills, diaphoresis, malaise, weight change HEENT: + rhinorrhea, nasal congestion Absent: throat pain, throat swelling, difficulty swallowing, mouth swelling, ear pain, eye pain, visual changes CARDIOVASCULAR: Absent: chest pain, syncope, palpitations, irregular heart rate, lightheadedness , peripheral edema RESPIRATORY: Absent: cough, shortness of breath, dyspnea with exertion, orthopnea, wheezing, stridor, hemoptysis GASTROINTESTINAL: +abdominal pain, nausea, vomiting Absent: abdominal distension, diarrhea, constipation, melena, hematochezia GENITOURINARY: Absent: dysuria, frequency, urgency, hesitancy, hematuria, flank pain, genital pain MUSCULOSKELETAL: Absent: myalgia, arthralgia, joint swelling, back pain, neck pain SKIN: Absent: rash, itching, pallor HEMATOLOGIC/IMMUNOLOGIC: Absent: easy bleeding, easy bruising, lymphadenopathy, frequent infections ENDOCRINE: Absent: unexplained weight gain, unexplained weight loss, heat intolerance, cold intolerance NEUROLOGIC: Absent: headache, focal weakness or paresthesias, dizziness, unsteady gait, seizure, mental status changes, bladder or bowel incontinence PSYCHIATRIC: +anxiety, depression Absent: suicidal or homicidal ideation, hallucinations. PHYSICAL EXAMINATION Vital Signs - 24 hr 08/12/18 08/12/18 08/12/18 08:59 13:34 13:42 Temperature 99.6 F 99.2 F Pulse Rate 77 Pulse Rate [ 98 H Left] Respiratory 19 16 Rate Blood Pressure 174/118 H Blood Pressure 144/100 [Right Arm] O2 Sat by Pulse 99 99 99 Oximetry (%) 08/12/18 15:14 Temperature 99.8 F H Pulse Rate 85 Pulse Rate [ Left] Respiratory 20 Rate Blood Pressure 160/112 H Blood Pressure [Right Arm] O2 Sat by Pulse 96 Oximetry (%) GENERAL: Ill-appearing, A&Ox3, thin, fatigued, bag with clear, dark yellow emesis at bedside HEAD: Normal with no signs of trauma. EYES: Pupils equal, round and reactive to light, extraocular movements intact, sclera anicteric, conjunctiva clear. No lid lag. EARS, NOSE, THROAT: +clear rhinorrhea to nares b/l, upper denture plates, ears normal, oropharynx clear without exudates. Moist mucous membranes. NECK: Normal range of motion, supple without lymphadenopathy, JVD, or masses. LUNGS: Breath sounds equal, clear to auscultation bilaterally. No wheezes, and no crackles. No accessory muscle use. HEART: Rapid rate and rhythm, normal S1 and S2 without murmur, rub or gallop. ABDOMEN: Soft, nontender, not distended, normoactive bowel sounds, no guarding, no rebound, no masses. No hepatomegaly or splenomegaly. MUSCULOSKELETAL: Normal range of motion at all joints. No bony deformities or tenderness. No CVA tenderness. UPPER EXTREMITIES: 2+ pulses, warm, well-perfused. No cyanosis. No clubbing. No peripheral edema. LOWER EXTREMITIES: 2+ pulses, warm, well-perfused. No calf tenderness. No peripheral edema. NEUROLOGICAL: Cranial nerves II-XII intact. Normal speech. Gait not observed. PSYCHIATRIC: Cooperative. Good eye contact. Appropriate mood and affect. SKIN: Warm, dry, normal turgor, no rashes or lesions noted, normal capillary refill. Laboratory Results - last 24 hr 08/12/18 08/12/18 08/12/18 09:58 09:58 09:58 WBC Cancelled Corrected WBC (auto) Cancelled RBC Cancelled Hgb Cancelled Hct Cancelled MCV Cancelled MCH Cancelled MCHC Cancelled RDW Cancelled Plt Count Cancelled MPV Cancelled Absolute Neuts (auto) Cancelled Neutrophils % Cancelled Lymphocytes % Cancelled Monocytes % Cancelled Eosinophils % Cancelled Basophils % Cancelled Nucleated RBC % Cancelled Platelet Estimate Cancelled Platelet Comment Cancelled Sodium 136 Potassium 3.7 Chloride 105 Carbon Dioxide 24 Anion Gap 7 L BUN 10 Creatinine 0.6 Creat Clearance w eGFR > 60 Random Glucose 157 H Calcium 8.6 Total Bilirubin 0.8 AST 779 H ALT 431 H Alkaline Phosphatase 318 H Creatine Kinase 141 Troponin I < 0.02 Total Protein 7.9 Albumin 3.6 Lipase 263 Serum , Qual Negative 08/12/18 08/12/18 11:10 11:49 WBC 2.1 L 4.9 Corrected WBC (auto) RBC 1.59 L 4.01 Hgb 5.4 L* 13.6 Hct 16.1 L D 39.8 D MCV 101.4 H 99.2 H MCH 34.2 H 34.0 H MCHC 33.7 34.3 RDW 14.6 14.6 Plt Count 51 L D 112 L D MPV 9.2 D 9.7 Absolute Neuts (auto) 1.6 3.9 Neutrophils % 77.1 79.3 Lymphocytes % 17.1 D 15.9 Monocytes % 4.9 4.2 Eosinophils % 0.4 D 0.1 Basophils % 0.5 0.5 Nucleated RBC % 0 0 Platelet Estimate Platelet Comment Sodium Potassium Chloride Carbon Dioxide Anion Gap BUN Creatinine Creat Clearance w eGFR Random Glucose Calcium Total Bilirubin AST ALT Alkaline Phosphatase Creatine Kinase Troponin I Total Protein Albumin Lipase Serum , Qual Gallbladder US: In comparison to a prior ultrasound study of 07/18/2018 apparent interval development of trace pericholecystic fluid is seen which could be due to acute cholecystitis (versus being reactive in nature secondary to adjacent acute inflammation such as due to hepatitis or pancreatitis). As on prior ultrasound studies there is no definite evidence of cholelithiasis. Note is again made of mild common bile duct dilatation with a 0.7 cm diameter. ASSESSMENT/PLAN: 47 year old female with a PMH significant for Hepatitis C, pancreatitis, ETOH abuse, methadone dependency, and biopolar disorder. Admitted for ETOH abuse, and concern for cholecystitis. Elevated liver enzymes secondary to ETOH vs biliary disease vs acute hepatitis --recent admission 07/2018 for similar presentation, CTAP at that time showed clear gallbladder, CBD 11mm with no obvious obstruction; recommended MRCP but patient signed out AMA --MRCP ordered ETOH Abuse --ativan protocol per Dr. Hines --Continue Thiamine 100 mg and Folic Acid 1 mg daily HTN Urgency --BP 174/118 upon admission --Not on antihypertensives at home --Given now dose of labetalol 75mg, start 100 mg BID --Monitor BP --HTN could be secondary to ETOH withdrawal, consider d/c labetalol as BP normalizes Nausea/Vomiting --Zofran 4 mg IV q 6 hrs PRN --Protonix 40 mg BID --NPO, consider starting on clear liquid diet as tolerated. Methadone dependency --On Methadone 30 mg q day --Followed [facility] Bipolar Disorder --Contraindicated in liver disease significant hepatic impairment -- On Depakote 250 q AM and 500 mg QHS --Seroquel 200 mg q day FEN --NS @ 125 while patient NPO --Electrolytes replete as indicated --trial of clears DVT Prophylaxis -Lovenox 40mg SQ daily Dispo: pt currently requires further inpatient care. FULL CODE Visit type - Emergency Visit Emergency Visit: Yes ED Registration Date: 08/12/18 Care time: The patient presented to the Emergency Department on the above date and was hospitalized for further evaluation of their emergent condition. - New Patient This patient is new to me today: Yes Date on this admission: 08/12/18 - Critical Care Critical Care patient: No
[2018-08-12] MEDS ORDERED: ONDANSETRON 4 MG/2 ML VIAL IVPUSH PRN (19:55)
--- NOTE | 2018-08-12 20:27 | CONSULT ---
"Consult Detox [facility] Reason for Current Admission/Consult: alcohol use, and on methadone treatment - History History of Present Illness: Pt well known to me from prior admissions here and at [facility]. She is also at [facility], where she receives daily methadone. Pt states she has been drinking a big bottle of vodka a day- came in to the hospital on 08/12 with abdominal pain- r/o pancreatitis. Pt received methadone and ativan today- doing well with meds, without withdrawal Sx Confidential Drug Utilization Report Search Terms: [place], 1970 Search Date: 08/13/2018 08:46:37 AM The Drug Utilization Report below displays all of the controlled substance prescriptions, if any, that your patient has filled in the last twelve months. The information displayed on this report is compiled from pharmacy submissions to the Department, and accurately reflects the information as submitted by the pharmacies. This report was requested by: Mabel Nails | Reference #: [id number] There are no results for the search terms that you entered. - Alcohol/Substance Use Hx Alcohol Use: No (detox) Hx Substance Use: Yes (methadone) - Past Medical History Gastrointestinal: Yes: Gastritis, Pancreatitis Hepatobiliary: Yes: Hepatitis C ...LMP: 08/07/18 ...: No Infectious Disease: Yes: HIV, Other (hcv) Psych: Yes: Addictions, Bipolar - Past Surgical History Past Surgical History: Yes: None - Significant Medical Findings: Laboratory Tests 08/12/18 08/12/18 08/12/18 09:58 09:58 09:58 WBC Cancelled Corrected WBC (auto) Cancelled RBC Cancelled Hgb Cancelled Hct Cancelled MCV Cancelled MCH Cancelled MCHC Cancelled RDW Cancelled Plt Count Cancelled MPV Cancelled Absolute Neuts (auto) Cancelled Neutrophils % Cancelled Lymphocytes % Cancelled Monocytes % Cancelled Eosinophils % Cancelled Basophils % Cancelled Nucleated RBC % Cancelled Platelet Estimate Cancelled Platelet Comment Cancelled Sodium 136 Potassium 3.7 Chloride 105 Carbon Dioxide 24 Anion Gap 7 L BUN 10 Creatinine 0.6 Creat Clearance w eGFR > 60 Random Glucose 157 H Calcium 8.6 Total Bilirubin 0.8 AST 779 H ALT 431 H Alkaline Phosphatase 318 H Creatine Kinase 141 Troponin I < 0.02 Total Protein 7.9 Albumin 3.6 Lipase 263 Serum , Qual Negative 08/12/18 08/12/18 11:10 11:49 WBC 2.1 L 4.9 Corrected WBC (auto) RBC 1.59 L 4.01 Hgb 5.4 L* 13.6 Hct 16.1 L D 39.8 D MCV 101.4 H 99.2 H MCH 34.2 H 34.0 H MCHC 33.7 34.3 RDW 14.6 14.6 Plt Count 51 L D 112 L D MPV 9.2 D 9.7 Absolute Neuts (auto) 1.6 3.9 Neutrophils % 77.1 79.3 Lymphocytes % 17.1 D 15.9 Monocytes % 4.9 4.2 Eosinophils % 0.4 D 0.1 Basophils % 0.5 0.5 Nucleated RBC % 0 0 Platelet Estimate Platelet Comment Sodium Potassium Chloride Carbon Dioxide Anion Gap BUN Creatinine Creat Clearance w eGFR Random Glucose Calcium Total Bilirubin AST ALT Alkaline Phosphatase Creatine Kinase Troponin I Total Protein Albumin Lipase Serum , Qual increased liver enzymes CIWA Score - CIWA Score Nausea/Vomitin-No Nausea/No Vomiting Muscle Tremors: None Anxiety: 0-No Anxiety, at Ease Agitation: 0-Normal Activity Paroxysmal Sweats: No Perspiration Orientation: 0-Oriented Tacttile Disturbances: 0-None Auditory Disturbances: 0-None Visual Disturbances: 0-None Headache: 0-None Present CIWA-Ar Total Score: 0 Assessment Plan - Diagnosis (1) Alcohol dependence with uncomplicated withdrawal Status: Acute (2) Opioid dependence on agonist therapy Status: Chronic Comment: on methadone 30 mg qd. - Plan Plan: Pt attempts to avoid alcohol intake- but invariably relapses. Pt is still drinking a bottle of vodka a day. She attends [facility] and does well with methadone treatment for opioid addiction. Pt will continue methadone and is placed on an Ativan based alcohol detox protocol. When medically clear pt would like to finish detox at [facility] and attend drug rehab there. Please call [phone] to facilitate the transfer. - Medication Detox Regimen/Protocol: Not Applicable"
[2018-08-12] MEDS: SODIUM CHLORIDE 1,000 ML IV SCH (21:47)
[2018-08-12] MEDS: GABAPENTIN 100 MG CAPSULE (FP) PO SCH (21:48)
[2018-08-12] MEDS: THIAMINE HCL 100 MG TABLET (FP) PO SCH (21:48)
[2018-08-12] MEDS: DIVALPROEX SODIUM 500 MG TABLET E.C. PO SCH (21:48)
[2018-08-12] MEDS: PANTOPRAZOLE 40 MG TABLET (FP) PO SCH (21:48)
[2018-08-12] MEDS: LORazepam 1 MG TABLET PO SCH (21:48)
[2018-08-12] MEDS ORDERED: LABETALOL HCL 100 MG TABLET (FP) PO SCH (22:00)
[2018-08-12] MEDS: LABETALOL HCL 100 MG TABLET (FP) PO SCH (22:21)
[2018-08-13] MEDS: SODIUM CHLORIDE 1,000 ML IV SCH (05:50)
[2018-08-13] MEDS: LORazepam 1 MG TABLET PO SCH ×3 (05:50→21:06)
[2018-08-13] MEDS ORDERED: LORazepam 1 MG TABLET PO SCH (06:00)
[2018-08-13] MEDS: GABAPENTIN 100 MG CAPSULE (FP) PO SCH ×3 (07:34→21:06)
[2018-08-13] MEDS: PANTOPRAZOLE 40 MG TABLET (FP) PO SCH ×2 (09:02→21:06)
[2018-08-13] MEDS: METHADONE HCL 10 MG TABLET PO SCH (09:02)
[2018-08-13] MEDS: LABETALOL HCL 100 MG TABLET (FP) PO SCH (09:02)
[2018-08-13] MEDS ORDERED: ENOXAPARIN NA (PORCINE) 40 MG/0.4 ML DISP.SYRIN SQ SCH (10:00)
[2018-08-13] MEDS ORDERED: DIVALPROEX SODIUM 250 MG TABLET E.C. PO SCH (10:00)
[2018-08-13] MEDS ORDERED: FOLIC ACID 1 MG TABLET (FP) PO SCH (10:00)
[2018-08-13] MEDS ORDERED: QUEtiapine FUMARATE 200 MG TABLET PO SCH (10:00)
--- NOTE | 2018-08-13 10:54 | EKG ---
Test Reason : Blood Pressure : / mmHG Vent. Rate : 072 BPM Atrial Rate : 072 BPM P-R Int : 136 ms QRS Dur : 086 ms QT Int : 414 ms P-R-T Axes : 054 046 056 degrees QTc Int : 453 ms NORMAL SINUS RHYTHM MINIMAL VOLTAGE CRITERIA FOR LVH, MAY BE NORMAL VARIANT WHEN COMPARED WITH ECG OF 20-JUL-2018 08:26, NO SIGNIFICANT CHANGE WAS FOUND Confirmed by KELLY ADAIR MD ([id number]) on 08/13/2018 10:54:22 AM Referred By: Confirmed By:KELLY ADAIR MD
--- NOTE | 2018-08-13 20:10 | PN ---
Physical Exam: SUBJECTIVE: Patient seen and examined at bedside. OBJECTIVE: Vital Signs Period Temp Pulse Resp BP Sys/Moore Pulse Ox Last 24 Hr 97.7 F-99 F 90-122 20-20 102-117/60-74 96-96 CBCD WBC 4.9 K/mm3 (4.0-10.0) 08/12/18 11:49 RBC 4.01 M/mm3 (3.60-5.2) 08/12/18 11:49 Hgb 13.6 GM/dL (10.7-15.3) 08/12/18 11:49 Hct 39.8 % (32.4-45.2) D 08/12/18 11:49 MCV 99.2 fl (80-96) H 08/12/18 11:49 MCHC 34.3 g/dl (32.0-36.0) 08/12/18 11:49 RDW 14.6 % (11.6-15.6) 08/12/18 11:49 Plt Count 112 K/MM3 (134-434) L D 08/12/18 11:49 MPV 9.7 fl (7.5-11.1) 08/12/18 11:49 CMP Sodium 136 mmol/L (136-145) 08/12/18 09:58 Potassium 3.7 mmol/L (3.5-5.1) 08/12/18 09:58 Chloride 105 mmol/L (98-107) 08/12/18 09:58 Carbon Dioxide 24 mmol/L (21-32) 08/12/18 09:58 Anion Gap 7 MMOL/L (8-16) L 08/12/18 09:58 BUN 10 mg/dL (7-18) 08/12/18 09:58 Creatinine 0.6 mg/dL (0.55-1.3) 08/12/18 09:58 Creat Clearance w eGFR > 60 (>60) 08/12/18 09:58 Calcium 8.6 mg/dL (8.5-10.1) 08/12/18 09:58 Total Bilirubin 0.8 mg/dL (0.2-1) 08/12/18 09:58 AST 779 U/L (15-37) H 08/12/18 09:58 ALT 431 U/L (13-61) H 08/12/18 09:58 Alkaline Phosphatase 318 U/L (45-117) H 08/12/18 09:58 Total Protein 7.9 g/dl (6.4-8.2) 08/12/18 09:58 Albumin 3.6 g/dl (3.4-5.0) 08/12/18 09:58 Laboratory Results - last 24 hr 08/13/18 06:10 Valproic Acid 42.9 L Active Medications Generic Name Dose Route Start Last Admin Trade Name Freq PRN Reason Stop Dose Admin Divalproex Sodium 250 mg 08/13/18 10:00 08/13/18 09:02 Depakote - PO 250 mg DAILY GONZALEZ Administration Divalproex Sodium 500 mg 08/12/18 22:00 08/12/18 21:48 Depakote - PO 500 mg HS GONZALEZ Administration Enoxaparin Sodium 40 mg 08/13/18 10:00 08/13/18 09:02 Lovenox - SQ 40 mg DAILY GONZALEZ Administration Folic Acid 1 mg 08/13/18 10:00 08/13/18 09:02 Folic Acid - PO 1 mg DAILY GONZALEZ Administration Gabapentin 100 mg 08/12/18 22:00 08/13/18 13:28 Neurontin - PO 100 mg TID GONZALEZ Administration Sodium Chloride 1,000 mls @ 125 mls/hr 08/12/18 20:45 08/13/18 05:50 Normal Saline - IV 125 mls/hr ASDIR GONZALEZ Administration Labetalol HCl 50 mg 08/12/18 22:15 08/13/18 09:02 Normodyne - PO 50 mg BID GONZALEZ Administration Lorazepam 2 mg 08/12/18 22:00 08/13/18 13:28 Ativan - PO 08/13/18 23:59 2 mg TID GONZALEZ Administration Lorazepam 1 mg 08/14/18 06:00 Ativan - PO 08/15/18 23:59 TID GONZALEZ Lorazepam 1 mg 08/16/18 08:00 Ativan - PO 08/16/18 08:01 ONCE ONE Methadone HCl 30 mg 08/13/18 08:30 08/13/18 09:02 Dolophine - PO 30 mg DAILY@0600 GONZALEZ Administration Ondansetron HCl 4 mg 08/12/18 19:55 Zofran Injection IVPUSH Q6H PRN NAUSEA Pantoprazole Sodium 40 mg 10/13/18 22:00 08/13/18 09:02 Protonix - PO 40 mg BID GONZALEZ Administration Quetiapine Fumarate 200 mg 08/13/18 10:00 08/13/18 09:40 Seroquel - PO 200 mg DAILY GONZALEZ Administration Thiamine HCl 100 mg 08/12/18 22:00 08/12/18 21:48 Vitamin B1 - PO 100 mg HS GONZALEZ Administration Imaging US abdomen: compared to 07/18/2018 apparent interval development of trace pericholecystic fluid, acute cholecystitis v. reactive; no definite evidence of cholelithiasis; again noted mild common bile duct dilatation 0.7 cm ASSESSMENT/PLAN: 47 year old female with a PMH significant for Hepatitis C, pancreatitis, ETOH abuse, methadone dependency, and biopolar disorder. Admitted for ETOH abuse, and concern for cholecystitis. Elevated liver enzymes secondary to ETOH vs biliary disease vs acute hepatitis --recent admission 07/2018 for similar presentation, CTAP at that time showed clear gallbladder, CBD 11mm with no obvious obstruction; recommended MRCP but patient signed out AMA --MRCP done today, pending dictation ETOH Abuse --continue ativan taper --continue thiamine, folic acid --Dr. Hines following HTN urgency --BP normalized with labetolol, now mildly hypotensive --stop labetolol Nausea/Vomiting --no reported episodes today --continue Zofran, protonix --tolerating clears --stop IV fluids Methadone dependency --continue methadone Bipolar Disorder --continue depakote, seroquel FEN Fluids: PO intake adequate Electrolytes: replete as indicated Nutrition: NPO after midnight in case intervention indicated on MRCP DVT Prophylaxis: hold lovenox, last dose 08/13 @ 9:00am; SCDs, oob, ambulation Dispo: requires continued inpatient care. When medically clear patient would like to finish detox at [facility] and attend drug rehab there. Please call [phone] to facilitate the transfer. Full code.
[2018-08-13] MEDS: DIVALPROEX SODIUM 500 MG TABLET E.C. PO SCH (21:06)
[2018-08-13] MEDS: THIAMINE HCL 100 MG TABLET (FP) PO SCH (21:06)
[2018-08-14 04:55] VITALS: BP 115/86; PULSE 102; TEMP 98.6
[2018-08-14] MEDS: GABAPENTIN 100 MG CAPSULE (FP) PO SCH (05:43)
[2018-08-14] MEDS: METHADONE HCL 10 MG TABLET PO SCH (05:44)
[2018-08-14] MEDS ORDERED: LORazepam 1 MG TABLET PO SCH (06:00)
[2018-08-14 07:19] LABS: BASO % 0.6 % (0-2.0); EOS % 0.6 % (0-4.5); HEMATOCRIT 38.7 % (32.4-45.2); HEMOGLOBIN 12.5 GM/dL (10.7-15.3); LYMPH % 21.3 % (8-40); MCH 32.7 pg (25.7-33.7); MCHC 32.5 g/dl (32.0-36.0); MEAN CELL VOLUME 100.8 fl (80-96); MEAN PLT VOLUME 10.2 fl (7.5-11.1); MONO % 6.5 % (3.8-10.2); PLATELET COUNT 111 K/MM3 (134-434); RBC 3.83 M/mm3 (3.60-5.2); RDW 14.7 % (11.6-15.6); WHITE BLOOD COUNT 7.2 K/mm3 (4.0-10.0)
[2018-08-14 07:59] LABS: ALBUMIN 3.4 g/dl (3.4-5.0); ALK PHOS 250 U/L (45-117); ANION GAP 5 MMOL/L (8-16); BILIRUBIN,DIRECT 0.5 mg/dL (0.0-0.2); BILIRUBIN,TOTAL 1.3 mg/dL (0.2-1); BLOOD UREA NITROGEN 9 mg/dL (7-18); CALCIUM 8.3 mg/dL (8.5-10.1); CHLORIDE 105 mmol/L (98-107); CO2 27 mmol/L (21-32); CREATININE 0.8 mg/dL (0.55-1.3); GLUCOSE,RANDOM 88 mg/dL (74-106); LIPASE 273 U/L (73-393); MAGNESIUM 1.6 mg/dL (1.8-2.4); SGOT/AST 398 U/L (15-37); SGPT/ALT 347 U/L (13-61); SODIUM 137 mmol/L (136-145); TOT PROT 7.6 g/dl (6.4-8.2)
--- NOTE | 2018-08-14 08:43 | DS ---
Physical Exam: SUBJECTIVE: Patient seen and examined OBJECTIVE: Vital Signs Period Temp Pulse Resp BP Sys/Moore Pulse Ox Last 24 Hr 98.4 F-98.8 F 86-122 20-20 90-117/60-86 96-96 PHYSICAL EXAM GENERAL: The patient is awake, alert, and fully oriented, in no acute distress. HEAD: Normal with no signs of trauma. EYES: PERRL, extraocular movements intact, sclera anicteric, conjunctiva clear. ENT: Ears normal, nares patent, oropharynx clear without exudates, moist mucous membranes. NECK: Trachea midline, full range of motion, supple. LUNGS: Breath sounds equal, clear to auscultation bilaterally, no wheezes, no crackles, no accessory muscle use. HEART: Regular rate and rhythm, S1, S2 without murmur, rub or gallop. ABDOMEN: Soft, nontender, nondistended, normoactive bowel sounds, no guarding, no rebound, no hepatosplenomegaly, no masses. EXTREMITIES: 2+ pulses, warm, well-perfused, no edema. NEUROLOGICAL: Cranial nerves II through XII grossly intact. Normal speech, gait not observed. PSYCH: Normal mood, normal affect. SKIN: Warm, dry, normal turgor, no rashes or lesions noted. LABS Laboratory Results - last 24 hr 08/14/18 08/14/18 08/14/18 06:30 06:30 06:30 WBC 7.2 RBC 3.83 Hgb 12.5 Hct 38.7 MCV 100.8 H MCH 32.7 MCHC 32.5 RDW 14.7 Plt Count 111 L MPV 10.2 Absolute Neuts (auto) 5.1 Neutrophils % 71.0 Lymphocytes % 21.3 D Monocytes % 6.5 Eosinophils % 0.6 D Basophils % 0.6 Nucleated RBC % 0 Sodium 137 Potassium 4.0 Chloride 105 Carbon Dioxide 27 Anion Gap 5 L BUN 9 Creatinine 0.8 Creat Clearance w eGFR > 60 Random Glucose 88 Calcium 8.3 L Magnesium 1.6 L Total Bilirubin 1.3 H Direct Bilirubin 0.5 H AST 398 H ALT 347 H Alkaline Phosphatase 250 H Total Protein 7.6 Albumin 3.4 Lipase 273 Cancelled HOSPITAL COURSE: Date of Admission:08/12/18 Date of Discharge: 08/14/18 Minutes to complete discharge: 35 Discharge Summary Reason For Visit: ELEVATED LIVER ENZYMES Condition: Fair - Instructions Disposition: AGAINST MEDICAL ADVICE - Home Medications Comprehensive Discharge Medication List: Ambulatory Orders Vitamins (Sjr) - 1 tab PO DAILY tablet 03/06/18 Thiamine HCl [Vitamin B1 -] 100 mg PO HS tablet 03/06/18 Methadone [Dolophine -] 30 mg PO DAILY 04/16/18 Divalproex [Depakote -] 250 mg PO AM #30 tablet.ec 05/09/18 Divalproex [Depakote -] 500 mg PO HS #30 tablet.ec 05/09/18 Docusate Sodium [Colace -] 100 mg PO BID PRN #60 capsule 05/09/18 Folic Acid - 1 mg PO DAILY #30 tablet 05/09/18 Gabapentin 100 mg PO TID #30 capsule 05/09/18 Multivitamins [Multivit ([facility] Formulary)] 1 tab PO DAILY #30 tab 07/20/18 Pantoprazole Sodium [Protonix -] 40 mg PO BID #28 tablet.ec 07/20/18 Quetiapine Fumarate [Seroquel -] 200 mg PO DAILY tablet 07/20/18 This patient is new to me today: No Emergency Visit: Yes ED Registration Date: 08/12/18 Care time: The patient presented to the Emergency Department on the above date and was hospitalized for further evaluation of their emergent condition. Critical Care patient: No - Discharge Referral Referred to [facility] Med P.C.: No
[2018-08-16] MEDS ORDERED: LORazepam 1 MG TABLET PO ONE (08:00)
== END 2018-08-14 08:18 | disposition left against medical advice (07) ==
LOC: JER 08:57 → JERBED 12:41 → J6S 14:53
PROVIDERS: ADMIT Hospitalist; ATTEND Nurse Practitioner Acute Care
PROC: 3E033NZ Introduction of Analgesics, Hypnotics, Sedatives into Peripheral Vein, Percutaneous Approach (ICD-10-PCS; principal; 2018-08-12)
PROC: 3E033GC Introduction of Other Therapeutic Substance into Peripheral Vein, Percutaneous Approach (ICD-10-PCS; 2018-08-12)
PROC: 3E0337Z Introduction of Electrolytic and Water Balance Substance into Peripheral Vein, Percutaneous Approach (ICD-10-PCS; 2018-08-12)
PROC: 3E013GC Introduction of Other Therapeutic Substance into Subcutaneous Tissue, Percutaneous Approach (ICD-10-PCS; 2018-08-12)
DX: R94.5 Abnormal results of liver function studies (principal); I16.0 Hypertensive urgency; F11.20 Opioid dependence, uncomplicated; F10.230 Alcohol dependence with withdrawal, uncomplicated; F17.210 Nicotine dependence, cigarettes, uncomplicated; F31.9 Bipolar disorder, unspecified; J45.909 Unspecified asthma, uncomplicated; R11.2 Nausea with vomiting, unspecified; B18.2 Chronic viral hepatitis C; Z88.8 Allergy status to other drugs, medicaments and biological substances; Z87.19 Personal history of other diseases of the digestive system
CPT/HCPCS: 36415; 74181-TC; 76705-TC; 80048; 80053; 80076; 80164; 82550; 83690; 83735; 84484; 84703; 85025; 93005; 93010; 96365; 96372; 96375; 96376; 99284-25; G0378; J7030

== ENCOUNTER 2018-09-18 14:09 | Emergency (ER) | payer OTHER ==
[2018-09-18 14:18] VITALS: TEMP 97.9; BMI 21.2
[2018-09-18] MEDS ORDERED: FOLIC ACID INJECTION - 1 MG, THIAMINE HCL 100 MG, MULTIVIT INJECTION ADULT 10 ML in SOD... IVPB ONE (14:50)
[2018-09-18] MEDS ORDERED: FAMOTIDINE 20 MG/50 ML IVPB 20 MG/50 ML MG IVPB ONE ×2 (14:50→14:58)
[2018-09-18] MEDS ORDERED: ONDANSETRON 4 MG/2 ML VIAL IVPUSH ONE ×3 (14:50→18:38)
--- NOTE | 2018-09-18 14:50 | PDOC ---
History of Present Illness - General Chief Complaint: Nausea/Vomiting Stated Complaint: Nausea/Vomiting Time Seen by Provider: 09/18/18 14:30 Past History - Past Medical History Allergies/Adverse Reactions: Allergies Allergy/AdvReac Type Severity Reaction Status Date / Time metoclopramide HCl Allergy Severe dystonic Verified 09/18/18 14:16 [From Reglan] reaction prochlorperazine maleate Allergy Severe DYSTONIA Verified 09/18/18 14:16 [From Compazine] haloperidol [From Haldol] Allergy Verified 09/18/18 14:16 mirtazapine [From Remeron] AdvReac Severe Difficulty Verified 09/18/18 14:16 Breathing Home Medications: Ambulatory Orders Vitamins (Sjr) - 1 tab PO DAILY tablet 03/06/18 Thiamine HCl [Vitamin B1 -] 100 mg PO HS tablet 03/06/18 Methadone [Dolophine -] 30 mg PO DAILY 04/16/18 Divalproex [Depakote -] 250 mg PO AM #30 tablet.ec 05/09/18 Divalproex [Depakote -] 500 mg PO HS #30 tablet.ec 05/09/18 Docusate Sodium [Colace -] 100 mg PO BID PRN #60 capsule 05/09/18 Folic Acid - 1 mg PO DAILY #30 tablet 05/09/18 Gabapentin 100 mg PO TID #30 capsule 05/09/18 Multivitamins [Multivit ([facility] Formulary)] 1 tab PO DAILY #30 tab 07/20/18 Pantoprazole Sodium [Protonix -] 40 mg PO BID #28 tablet.ec 07/20/18 Quetiapine Fumarate [Seroquel -] 200 mg PO DAILY tablet 07/20/18 Anemia: Yes (as a teen, had iron and transfusions) Asthma: Yes (ON MDI) Cancer: No Cardiac Disorders: No CVA: No COPD: No CHF: No Dementia: No Diabetes: No GI Disorders: Yes (several admissions for etoh-related pancreatitis) Disorders: No HTN: No Hypercholesterolemia: No Kidney Stones: No Liver Disease: Yes (hepatitis C, not treated ) Psychiatric Problems: Yes (bipolar) Seizures: No Thyroid Disease: No - Surgical History Abdominal Surgery: No Appendectomy: No Cardiac Surgery: No Cholecystectomy: No Lung Surgery: No Neurologic Surgery: No Orthopedic Surgery: No - Reproductive History (#): 13 Para: 11 PID: No - Immunization History Immunization Up to Date: No - Suicide/Smoking/Psychosocial Hx Smoking History: Current every day smoker Have you smoked in the past 12 months: Yes Number of Cigarettes Smoked Daily: 5 Cigars Per Day: 0 Information on smoking cessation initiated: No 'Breaking Loose' booklet given: 05/25/18 Hx Alcohol Use: No (detox) Drug/Substance Use Hx: Yes (methadone) Substance Use Type: Heroin Hx Substance Use Treatment: Yes (multiple modalities of treatments ,no significant clean time) Review of Systems - Review of Systems Able to Perform ROS?: Yes Comments:: 09/18/18 17:53 CONSTITUTIONAL: Absent: fever, chills, diaphoresis, generalized weakness, malaise, loss of appetite HEENT: Absent: rhinorrhea, nasal congestion, throat pain, throat swelling, difficulty swallowing, mouth swelling, ear pain, eye pain, visual Changes CARDIOVASCULAR: Absent: chest pain, loss of consciousness, palpitations, irregular heart rate, peripheral edema RESPIRATORY: Absent: cough, shortness of breath, dyspnea with exertion, orthopnea, wheezing, stridor, hemoptysis GASTROINTESTINAL: Absent: abdominal pain, abdominal distension, nausea, vomiting, diarrhea, constipation, melena, hematochezia GENITOURINARY: Absent: dysuria, frequency, urgency, hesitancy, hematuria, flank pain, genital pain MUSCULOSKELETAL: Absent: myalgia, arthralgia, joint swelling SKIN: Absent: rash, itching, pallor HEMATOLOGIC/IMMUNOLOGIC: Absent: easy bleeding, easy bruising, lymphadenopathy, frequent infections ENDOCRINE: Absent: unexplained weight gain, unexplained weight loss, heat intolerance, cold intolerance NEUROLOGIC: Absent: headache, focal weakness or paresthesias, dizziness, unsteady gait, seizure, mental status changes, bladder or bowel incontinence PSYCHIATRIC: Absent: anxiety, depression, suicidal or homicidal ideation, hallucinations. Is the patient limited Hebrew proficient: No *Physical Exam - Vital Signs Last Vital Signs Temp Pulse Resp BP Pulse Ox 97.9 F 78 18 180/114 H 99 09/18/18 14:16 09/18/18 14:16 09/18/18 14:16 09/18/18 14:16 09/18/18 14:16 - Physical Exam Comments: 09/18/18 17:53 GENERAL: Well developed, well nourished. Awake and alert. No acute distress. HEENT: Normocephalic, atraumatic. PERRLA, EOMI. No conjunctival pallor. Sclera are non- icteric. Moist mucous membranes. Oropharynx is clear. NECK: Supple. Full ROM. No JVD. Carotid pulses 2+ and symmetric, without bruits. No thyromegaly. No lymphadenopathy. CARDIOVASCULAR: Regular rate and rhythm. No murmurs, rubs, or gallops. Distal pulses are 2+ and symmetric. PULMONARY: No evidence of respiratory distress. Lungs clear to auscultation bilaterally. No wheezing, rales or rhonchi. ABDOMINAL: Soft. Non-tender. Non-distended. No rebound or guarding. No organomegaly. Normoactive bowel sounds. MUSCULOSKELETAL Normal range of motion at all joints. No bony deformities or tenderness. No CVA tenderness. EXTREMITIES: No cyanosis. No clubbing. No edema. No calf tenderness. SKIN: Warm and dry. Normal capillary refill. No rashes. No jaundice. NEUROLOGICAL: Alert, awake, appropriate. Cranial nerves 2-12 intact. No deficits to light touch and temperature in face, upper extremities and lower extremities. No motor deficits in the in face, upper extremities and lower extremities. Normoreflexic in the upper and lower extremities. Normal speech. Toes are down- going bilaterally. Gait is normal without ataxia. PSYCHIATRIC: Cooperative. Good eye contact. Appropriate mood and affect. ED Treatment Course - LABORATORY CBC & Chemistry Diagram: 09/18/18 13:10 09/18/18 14:55 Medical Decision Making - Medical Decision Making 09/18/18 18:39 Pt eating ice chips at this time. *DC/Admit/Observation/Transfer Diagnosis at time of Disposition: Alcohol intoxication Qualifiers: Complication of substance-induced condition: uncomplicated Qualified Code(s): F10.920 - Alcohol use, unspecified with intoxication, uncomplicated Nausea and vomiting Qualifiers: Vomiting type: cyclical vomiting Vomiting Intractability: non-intractable Qualified Code(s): G43.A0 - Cyclical vomiting, not intractable - Discharge Dispostion Disposition: HOME Condition at time of disposition: Stable Decision to Admit order: No - Referrals Referrals: Namrata Arce SHIPPING AND RECEIVING COORDINATOR [Primary Care Provider] - - Patient Instructions Printed Discharge Instructions: DI for Vomiting -- Adult Additional Instructions: You were evaluated for your nausea and vomiting today. Please avoid drinking alcohol in the future to avoid your vomiting episodes. There were no abnormalities in your lab work today. Please eat a bland diet and follow-up with her primary care doctor tomorrow. Return to the emergency department for worsening pain, fevers or any new or worsening symptoms. - Post Discharge Activity
[2018-09-18] MEDS ORDERED: ONDANSETRON 4 MG/2 ML VIAL ONE ×3 (14:58→18:19)
[2018-09-18] MEDS ORDERED: SODIUM CHLORIDE 1,000 ML IV STA (14:59)
[2018-09-18 15:20] LABS: BASO % 0.7 % (0-2.0); EOS % 0.1 % (0-4.5); HEMATOCRIT 42.2 % (32.4-45.2); HEMOGLOBIN 14.8 GM/dL (10.7-15.3); LYMPH % 10.9 % (8-40); MCH 34.2 pg (25.7-33.7); MCHC 35.1 g/dl (32.0-36.0); MEAN CELL VOLUME 97.3 fl (80-96); MEAN PLT VOLUME 9.9 fl (7.5-11.1); MONO % 2.3 % (3.8-10.2); PLATELET COUNT 152 K/MM3 (134-434); RBC 4.33 M/mm3 (3.60-5.2); RDW 13.9 % (11.6-15.6)
[2018-09-18 15:44] LABS: ALBUMIN 4.4 g/dl (3.4-5.0); ALK PHOS 140 U/L (45-117); AMYLASE 92 U/L (25-115); ANION GAP 15 MMOL/L (8-16); BLOOD UREA NITROGEN 11 mg/dL (7-18); CALCIUM 9.5 mg/dL (8.5-10.1); CHLORIDE 99 mmol/L (98-107); CO2 21 mmol/L (21-32); CREATININE 0.6 mg/dL (0.55-1.3); GLUCOSE,RANDOM 114 mg/dL (74-106); LIPASE 169 U/L (73-393); POTASSIUM 4.3 mmol/L (3.5-5.1); SGOT/AST 256 U/L (15-37); SGPT/ALT 243 U/L (13-61); SODIUM 135 mmol/L (136-145); TOT PROT 9.1 g/dl (6.4-8.2)
[2018-09-18] MEDS ORDERED: morphine CARPU-JECT 2 MG/1 ML DISP.SYRIN IVPUSH ONE (16:43)
[2018-09-18] MEDS ORDERED: MORPHINE SULFATE 2 MG/ML VIAL ONE (17:06)
[2018-09-18] MEDS ORDERED: ALPRAZolam 0.25 MG TABLET ONE (18:18)
[2018-09-18] MEDS ORDERED: ACETAMINOPHEN INJECTION 100 ML IVPB ONE (18:19)
[2018-09-18] MEDS ORDERED: ALPRAZolam 0.25 MG TABLET PO ONE (18:38)
[2018-09-18] MEDS ORDERED: ACETAMINOPHEN 1000 MG/100 ML VIAL (NON FORMULARY) IVPB ONE (18:38)
[2018-09-18 19:31] VITALS: BP 181/124; PULSE 96
== END 2018-09-18 19:45 | disposition home or self-care (01) ==
LOC: JER 14:09
PROC: 3E033GC Introduction of Other Therapeutic Substance into Peripheral Vein, Percutaneous Approach (ICD-10-PCS; principal; 2018-09-18)
PROC: 3E033GC Introduction of Other Therapeutic Substance into Peripheral Vein, Percutaneous Approach (ICD-10-PCS; 2018-09-18)
PROC: 3E033GC Introduction of Other Therapeutic Substance into Peripheral Vein, Percutaneous Approach (ICD-10-PCS; 2018-09-18)
PROC: 3E033GC Introduction of Other Therapeutic Substance into Peripheral Vein, Percutaneous Approach (ICD-10-PCS; 2018-09-18)
PROC: 3E033GC Introduction of Other Therapeutic Substance into Peripheral Vein, Percutaneous Approach (ICD-10-PCS; 2018-09-18)
PROC: 3E033NZ Introduction of Analgesics, Hypnotics, Sedatives into Peripheral Vein, Percutaneous Approach (ICD-10-PCS; 2018-09-18)
PROC: 3E033NZ Introduction of Analgesics, Hypnotics, Sedatives into Peripheral Vein, Percutaneous Approach (ICD-10-PCS; 2018-09-18)
DX: F10.120 Alcohol abuse with intoxication, uncomplicated (principal); G43.A0 Cyclical vomiting, in migraine, not intractable
CPT/HCPCS: 36415; 80053; 82150; 83690; 84703; 85025; 96365; 96366; 96367; 96375; 96376; 99283-25; J0131; J7030

== ENCOUNTER 2018-10-04 07:15 | Inpatient (IN) | payer OTHER ==
[2018-10-04] MEDS ORDERED: ONDANSETRON 4 MG/2 ML VIAL ONE ×3 (07:21→13:35)
[2018-10-04] MEDS ORDERED: FAMOTIDINE 20 MG/50 ML IVPB 20 MG/50 ML MG IVPB ONE ×2 (07:28→08:26)
[2018-10-04] MEDS ORDERED: DEXTROSE 5%-NORMAL SALINE 1,000 ML IV ONE (07:28)
[2018-10-04] MEDS ORDERED: ONDANSETRON 4 MG/2 ML VIAL IVPUSH ONE ×2 (07:28→13:06)
--- NOTE | 2018-10-04 07:30 | PDOC ---
History of Present Illness - History of Present Illness Initial Comments: 10/04/18 08:19 Ms. Mao is a 48-year-old female with past medical history significant for Hep C (untreated), Anemia (hx of transfusion), polysubstance abuse (w/ multiple detox admission, currently on Methadone), hx of EtOH pancreatitis, GERD presents to the emergency department via EMS with nausea, vomiting, and epigastric abdominal pain. The patient reports since 4:00 am today, shes been having nausea with x20 episodes of non-bloody, yellowish emesis. The patient reports the symptoms are associated with abdominal pain and SOB secondary to emesis. The patient reports an associated symptom of nonbloody watery stool since this morning, denies hematochezia and melena. The patient reports her last drink was a 5th of Vodka at 8:00 pm last night, reports the daily use of alcohol about 1-2 pints a day. The denies the use of methadone today. Denies fever, chills, chest pain, dysuria, hematuria, frequency or urgency to urinate. Denies daily use of medication, other than methadone. Denies recent travel or sick contact. Allergies: reglan and compazine (dystonic reaction) Social history: Daily alcohol use, currently on Methadone. Nicotine dependent. Hx of marijuana and bzo use. Surgical history: C-sections PCP: Namrata Arce NP <Kayla Holt - Last Filed: 10/04/18 08:19> - General History Source: Patient, EMS Exam Limitations: No Limitations <Rozina Moreland - Last Filed: 10/04/18 16:25> - General Stated Complaint: VOMITING Time Seen by Provider: 10/04/18 07:28 Past History <Kayla Holt - Last Filed: 10/04/18 08:19> - Past Medical History Anemia: Yes (as a teen, had iron and transfusions) Asthma: Yes (ON MDI) Cancer: No Cardiac Disorders: No CVA: No COPD: No CHF: No Dementia: No Diabetes: No GI Disorders: Yes (several admissions for etoh-related pancreatitis) Disorders: No HTN: No Hypercholesterolemia: No Kidney Stones: No Liver Disease: Yes (hepatitis C, not treated ) Psychiatric Problems: Yes (bipolar) Seizures: No Thyroid Disease: No - Surgical History Abdominal Surgery: No Appendectomy: No Cardiac Surgery: No Cholecystectomy: No Lung Surgery: No Neurologic Surgery: No Orthopedic Surgery: No - Reproductive History (#): 13 Para: 11 PID: No - Immunization History Immunization Up to Date: No - Suicide/Smoking/Psychosocial Hx Smoking History: Current every day smoker Have you smoked in the past 12 months: Yes Number of Cigarettes Smoked Daily: 5 Cigars Per Day: 0 'Breaking Loose' booklet given: 05/25/18 Hx Alcohol Use: Yes Drug/Substance Use Hx: Yes (methadone) Substance Use Type: Alcohol, Heroin, Marijuana Hx Substance Use Treatment: Yes (multiple modalities of treatments ,no significant clean time) <Rozina Moreland - Last Filed: 10/04/18 16:25> - Past Medical History Allergies/Adverse Reactions: Allergies Allergy/AdvReac Type Severity Reaction Status Date / Time metoclopramide HCl Allergy Severe dystonic Verified 09/18/18 14:16 [From Reglan] reaction prochlorperazine maleate Allergy Severe DYSTONIA Verified 09/18/18 14:16 [From Compazine] haloperidol [From Haldol] Allergy Verified 09/18/18 14:16 mirtazapine [From Remeron] AdvReac Severe Difficulty Verified 09/18/18 14:16 Breathing Home Medications: Ambulatory Orders Methadone [Dolophine -] 30 mg PO DAILY 04/16/18 Divalproex [Depakote -] 250 mg PO AM #30 tablet.ec 05/09/18 Divalproex [Depakote -] 500 mg PO HS #30 tablet.ec 05/09/18 Gabapentin 100 mg PO TID #30 capsule 05/09/18 Quetiapine Fumarate [Seroquel -] 200 mg PO DAILY tablet 07/20/18 Amitriptyline HCl [Elavil -] 1 tab PO BID 09/20/18 Buspirone HCl [Buspar -] 1 tab PO BID 09/20/18 Docusate Sodium [Colace -] 100 mg PO BID PRN #60 capsule 09/20/18 Folic Acid - 1 mg PO DAILY #30 tablet 09/20/18 Melatonin 1 cap PO HS 09/20/18 Multivitamin,Therapeutic [Thera] 1 tab PO DAILY #30 tablet 09/20/18 Multivitamins [Multivit ([facility] Formulary)] 1 tab PO DAILY #30 tab 09/20/18 Pantoprazole Sodium [Protonix -] 40 mg PO DAILY PRN #30 tablet.ec MDD 1 Thiamine HCl [Vitamin B1 -] 100 mg PO HS #30 tablet 09/20/18 Ondansetron [Zofran Odt -] 4 mg SL TID PRN #9 od.tablet 10/04/18 Abd/GI Specific PMHX - Complaint Specific PMHX Hepatitis: Yes (HEP C) Pancreatitis: Yes <Rozina Moreland - Last Filed: 10/04/18 16:25> Review of Systems - Review of Systems Comments:: 10/04/18 08:12 Constitutional: no fevers or chills. HEENT: no headache or dizziness. No congestion. No visual/hearing disturbances. CVS: no cp or syncope. Resp: +sob. No cough. Abdomen: +abdominal pain, N/V and diarrhea. Genitourinary: no urinary sx, hematuria. MUSCULOSKELETAL: No joint pain and swelling. No neck or back pain. SKIN: no redness or skin changes, no discharge, no rash. No wounds. Hematologic: no easy bruising/bleeding. NEUROLOGIC: No headache, dizziness, LOC or altered mental status. No weakness, numbness or tingling. All other systems reviewed and negative, or as documented in HPI. <Kayla Holt - Last Filed: 10/04/18 08:19> *Physical Exam - Vital Signs Last Vital Signs Temp Pulse Resp BP Pulse Ox 99.7 F H 71 20 189/114 H 100 10/04/18 07:20 10/04/18 07:20 10/04/18 07:20 10/04/18 07:20 10/04/18 07:20 - Physical Exam Comments: 10/04/18 08:20 General: awake and alert HEENT: NCAT, PERRL, EOMI, clear conjunctiva, anicteric, moist mucus membranes, clear oropharynx, no oral lesions.. Neck: neck supple, FROM Resp: CTAB, normal and even respirations, no respiratory distress CVS: RRR, no murmurs, 2+ peripheral pulses throughout, no peripheral edema Abdomen: +Epigastric tenderness to palpation. Neg Carlisle sign. Soft, nondistended. No rebound or guarding. No CVAT Back: nontender, normal inspection and ROM MSK: no edema, FORREST x4, ROM intact. No clubbing or cyanosis. normal bulk and tone. Extremities: no calf tenderness Neuro: alert, oriented appropriately; no focal neurologic deficits Skin: warm and well perfused, cap refill <2 sec, normal color <Kayla Holt - Last Filed: 10/04/18 08:19> Moderate Sedation - Procedure Monitoring Vital Signs: Procedure Monitoring Vital Signs Temperature 99.7 F H 10/04/18 07:20 Pulse Rate 71 10/04/18 07:20 Respiratory Rate 20 10/04/18 07:20 Blood Pressure 189/114 H 10/04/18 07:20 O2 Sat by Pulse Oximetry (%) 100 10/04/18 07:20 <Kayla Holt - Last Filed: 10/04/18 08:19> ED Treatment Course - LABORATORY CBC & Chemistry Diagram: 10/04/18 07:58 10/04/18 07:58 <Kayla Holt - Last Filed: 10/04/18 08:19> - LABORATORY CBC & Chemistry Diagram: 10/04/18 07:58 10/04/18 07:58 <Rozina Moreland - Last Filed: 10/04/18 16:25> Medical Decision Making - Medical Decision Making 10/04/18 07:56 see HPI for details Vitals with hypertension, also vomiting. normal HR. DDx. alcoholic gastritis, PUD, pancreatitis, hepatitis, biliary colic. labs and lytes wnl. reassuring. mild leukocytosis noted, but also acute stress response. LFTs chronically elevated c/w chronic alcohol hepatitis; lipase, preg test negative. less likely pancreatitis neg Alcohol level. given zofran (dystonic reaction to other antiemetic agents), IVF. still with some n/v. Additional ativan for sx. pepcid, maalox and viscous PO lidocaine. some clinical improvement. will not get methadone in the ED here, she missed methadone clinic no bloody emesis here or output. no cp or sob today likely alcohol gastritis and induced emesis.epigastric pain. no espinosa's sign, no peritoneal findings, relatively benign abdomen exam vitals improved on reaassessment no vomiting episodes here. given PO challenge. urinated on the floor in the room here. however, took gingerale and vomited in the room. additional zofran EKG with normal sinus rhythm, normal intervals and QTC IV infiltrated in LUE, so taken out. cool compresses and supportive care, normal compartments and NVI, no skin changes findings. placed on ED obs, at 8 hour raphael, admitted to hospitalist service under observation status. 10/04/18 12:48 10/04/18 16:22 10/04/18 16:23 10/04/18 16:23 <Rozina Moreland - Last Filed: 10/04/18 16:25> *DC/Admit/Observation/Transfer - Attestations Scribe Attestion: 10/04/18 08:12 Documentation prepared by Kayla Holt, acting as medical radiation therapist for Rozina Moreland MD. <Kayla Holt - Last Filed: 10/04/18 08:19> - Discharge Dispostion Decision to Admit order: Yes - Attestations Physician Attestion: 10/04/18 16:24 I, Rozina Moreland MD, attest that this document has been prepared under my direction and personally reviewed by me in its entirety. I further attest, that it accurately reflects all work, treatment, procedures and medical decision -making performed by me. <Rozina Moreland - Last Filed: 10/04/18 16:25> Diagnosis at time of Disposition: Nausea and vomiting, Epigastric pain, Alcohol dependence, Abdominal pain - Discharge Dispostion Condition at time of disposition: Guarded - Prescriptions Prescriptions: Ondansetron [Zofran Odt -] 4 mg SL TID PRN #9 od.tablet PRN Reason: Nausea And/Or Vomiting - Referrals Referrals: Namrata Arce, FREIGHT HUSTLER [Primary Care Provider] - - Patient Instructions Additional Instructions: your blood work was normal you were vomiting and having pain likely from alcohol use follow up with your primary doctor regarding your symptoms. zofran three times a day as needed for your symptoms - Post Discharge Activity
[2018-10-04] MEDS ORDERED: MAG HYDROX/AL HYDROX/SIMETH 30 ML UNIT-DOSE CUP PO ONE (07:58)
[2018-10-04] MEDS ORDERED: MAG HYDROX/AL HYDROX/SIMETH 30 ML UNIT-DOSE CUP ONE (08:08)
[2018-10-04] MEDS ORDERED: LIDOCAINE VISCOUS 2% ORAL/TOP 20 ML UNIT-DOSE CUP ONE (08:34)
[2018-10-04] MEDS ORDERED: LIDOCAINE VISCOUS 2% ORAL/TOP 20 ML UNIT-DOSE CUP MM ONE (08:34)
[2018-10-04 08:57] LABS: ALBUMIN 3.7 g/dl (3.4-5.0); ALK PHOS 99 U/L (45-117); ANION GAP 11 MMOL/L (8-16); BILIRUBIN,TOTAL 0.8 mg/dL (0.2-1); BLOOD UREA NITROGEN 17 mg/dL (7-18); CALCIUM 8.8 mg/dL (8.5-10.1); CHLORIDE 103 mmol/L (98-107); CO2 25 mmol/L (21-32); CREATININE 0.7 mg/dL (0.55-1.3); GLUCOSE,RANDOM 156 mg/dL (74-106); LIPASE 234 U/L (73-393); POTASSIUM 3.5 mmol/L (3.5-5.1); SGOT/AST 119 U/L (15-37); SGPT/ALT 101 U/L (13-61); SODIUM 138 mmol/L (136-145); TOT PROT 7.5 g/dl (6.4-8.2)
[2018-10-04 09:33] LABS: BASO % 0.5 % (0-2.0); EOS % 0.2 % (0-4.5); HEMATOCRIT 40.9 % (32.4-45.2); HEMOGLOBIN 13.5 GM/dL (10.7-15.3); LYMPH % 11.5 % (8-40); MCHC 33.1 g/dl (32.0-36.0); MEAN PLT VOLUME 10.6 fl (7.5-11.1); MONO % 6.5 % (3.8-10.2); NEUT % 81.3 % (42.8-82.8); PLATELET COUNT 119 K/MM3 (134-434); RBC 4.09 M/mm3 (3.60-5.2); RDW 13.8 % (11.6-15.6); WHITE BLOOD COUNT 10.1 K/mm3 (4.0-10.0)
[2018-10-04] MEDS ORDERED: LORazepam 2 MG/ML SDV VIAL ONE (10:29)
[2018-10-04] MEDS ORDERED: LORazepam 2 MG/ML SDV VIAL IVPUSH PRN (16:13)
[2018-10-04] MEDS ORDERED: SODIUM CHLORIDE 1,000 ML IV SCH (16:15)
[2018-10-04] MEDS ORDERED: ONDANSETRON 4 MG/2 ML VIAL IVPB SCH (16:15)
[2018-10-04] MEDS ORDERED: DEXTROSE 5%-NORMAL SALINE 1,000 ML IV SCH (16:15)
--- NOTE | 2018-10-04 16:27 | PN ---
Teaching Attending Note Name of Resident: Geraldine Zimmer ATTENDING PHYSICIAN STATEMENT I saw and evaluated the patient. I reviewed the resident's note and discussed the case with the resident. I agree with the resident's findings and plan as documented. SUBJECTIVE: Seen and examined; she is a poor historian. She has a documented history of EtOH abuse and has had seizures in the past. CIWA ~5-7 when I saw her in the ER. She presents with intractable vomitting. She gets this from drinking and is unfortunately a daily drinker. Has had many rehab stays in the past. History also of untreated cirrhosis and bipolar disorder; former substance abuse issues are being treated with methadne. Has left from here AMA in the past. During a recent admit she was found to have dilated biliary ducts; MRI done and poor quality but recommended followup to r/o any distal stricture, etc. Doesn't appear that she has had followup. Unfortunately she gets dystonic reactions to antiemetics and doesn't take a good deal of antiemetic medications. She will be admitted to [facility] floor. She states she wants to stop drinking and will go to [facility]. 10 sys ROS done and negative aside from HPI PMH and PSH reviewed Social history reviewed in chart; issues with alcohol, tbacco, and drug abuse alongside bipolar hx FH asked and noncontributory Medication list reviewed from prior admits OBJECTIVE: VS, labs, imaging reviewed NAD, AAO, resting in bed, CIWA ~5 RRR s1/2 no mgr Lungs CTAB Nondistended, +BS Poor insight, flat affect Labs reviewed; slightly elevated LFTs better than last time (AST/ALT). Bili normal RUQ us ordered and pending ASSESSMENT AND PLAN: Presenting with intractable vomitting 2/2 alcohol consumption 1) Intractable vomitting 2/2 EtOh abuse -LR@100/hr, PRN Zofran, avoid allergy-causing drugs. -Alcohol cessasion recommended -Full liquid diet; advance as tolerated -Lipase negative. Given history of dilated CBD and needed followup to r/o distal pathology on MRCP will check RUQ us. If dilation persists can discuss with GI about ordering further testing 2) Transaminitis -Likely 2/2 EtOH; actually improved -Monitor CMP in AM 3) H/O Substance Abuse -Confirm dose and continue home methadone 4) Bipolar -Followup with psychiatry 5) Macrocytosis -Check b12/folate -Likely 2/2 EtOH 6) untreated Hep C -Followup OP for viral load, eval for keanu 7) EtOH Abuse/WD -seizure precations, ativan protocol -Refer to [facility] on DC. FENA -LR@100 -PRN replete -Full liquid, advance as tolerated -As tolerated, fall precautions Full Code Dispo: 1-2 days pending results of imaging Full Code
--- NOTE | 2018-10-04 16:28 | HP ---
CHIEF COMPLAINT: vomiting PCP: [facility] HISTORY OF PRESENT ILLNESS: This is a 48 year old female with a history of repeated alcohol and substance abuse, untreated hepatitis C, who presents with intractable vomiting x1 day after binge drinking. Last drink was 8pm last night, she drinks 1-2pinks of vodka per day. She has been admitted for detox multiple times at [facility], and is currently on methadone. Bryson hematochezia, bilious emesis, chest pain, shortness of breath, fever, chills, abdominal pain, melena, dysuria. Last hospital visit, she was here for same symptoms of vomiting, due to alcohol abuse. She was also found to have a dilated pancreatic duct and common bile duct. She refuses evaluation with MRCP. 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 ER course was notable for: she was given multiple anti-emetics without relief. She states she is allergic to reglan and prochlorperazine due tot dystonia effects. Recent Travel: no PAST MEDICAL HISTORY: hepatitis c, alcohol and substance abuse, gastritis, PAST SURGICAL HISTORY: none Social History: Smokin cigs per day Alcohol:1-2 pints of vodka per day Drugs: weed? in chart; but kelsy denies; was snorting cocaine now on methadone Family History: Allergies metoclopramide HCl [From Reglan] Allergy (Severe, Verified 09/18/18 14:16) dystonic reaction dystonic reaction prochlorperazine maleate [From Compazine] Allergy (Severe, Verified 09/18/18 14: 16) DYSTONIA haloperidol [From Haldol] Allergy (Verified 09/18/18 14:16) mirtazapine [From Remeron] Adverse Reaction (Severe, Verified 09/18/18 14:16) Difficulty Breathing HOME MEDICATIONS: Home Medications Medication Instructions Recorded Methadone [Dolophine -] 30 mg PO DAILY 04/16/18 Divalproex [Depakote -] 250 mg PO AM #30 tablet.ec 05/09/18 Divalproex [Depakote -] 500 mg PO HS #30 tablet.ec 05/09/18 Gabapentin 100 mg PO TID #30 capsule 05/09/18 Quetiapine Fumarate [Seroquel -] 200 mg PO DAILY tablet 07/20/18 Amitriptyline HCl [Elavil -] 1 tab PO BID 09/20/18 Buspirone HCl [Buspar -] 1 tab PO BID 09/20/18 Docusate Sodium [Colace -] 100 mg PO BID PRN #60 capsule 09/20/18 Folic Acid - 1 mg PO DAILY #30 tablet 09/20/18 Melatonin 1 cap PO HS 09/20/18 Multivitamin,Therapeutic [Thera] 1 tab PO DAILY #30 tablet 09/20/18 Multivitamins [Multivit ([facility] 1 tab PO DAILY #30 tab 09/20/18 Formulary)] Pantoprazole Sodium [Protonix -] 40 mg PO DAILY PRN #30 tablet.ec 09/20/18 MDD 1 Thiamine HCl [Vitamin B1 -] 100 mg PO HS #30 tablet 09/20/18 Ondansetron [Zofran Odt -] 4 mg SL TID PRN #9 od.tablet 10/04/18 REVIEW OF SYSTEMS CONSTITUTIONAL: Absent: fever, chills, diaphoresis, generalized weakness, malaise, loss of appetite, weight change HEENT: Absent: rhinorrhea, nasal congestion, throat pain, throat swelling, difficulty swallowing, mouth swelling, ear pain, eye pain, visual changes CARDIOVASCULAR: Absent: chest pain, syncope, palpitations, irregular heart rate, lightheadedness , peripheral edema RESPIRATORY: Absent: cough, shortness of breath, dyspnea with exertion, orthopnea, wheezing, stridor, hemoptysis GASTROINTESTINAL: Positive: nausea, vomiting, diarrhea, Absent: abdominal pain, abdominal distension, constipation, melena, hematochezia GENITOURINARY: Absent: dysuria, frequency, urgency, hesitancy, hematuria, flank pain, genital pain MUSCULOSKELETAL: Absent: myalgia, arthralgia, joint swelling, back pain, neck pain SKIN: Absent: rash, itching, pallor HEMATOLOGIC/IMMUNOLOGIC: Absent: easy bleeding, easy bruising, lymphadenopathy, frequent infections ENDOCRINE: Absent: unexplained weight gain, unexplained weight loss, heat intolerance, cold intolerance NEUROLOGIC: Absent: headache, focal weakness or paresthesias, dizziness, unsteady gait, seizure, mental status changes, bladder or bowel incontinence PSYCHIATRIC: Absent: anxiety, depression, suicidal or homicidal ideation, hallucinations. PHYSICAL EXAMINATION Vital Signs - 24 hr 10/04/18 10/04/18 10/04/18 07:20 09:35 11:50 Temperature 99.7 F H 98 F Pulse Rate 71 Pulse Rate [ 75 63 Left Radial] Respiratory 20 18 18 Rate Blood Pressure 189/114 H Blood Pressure 180/105 H 170/102 H [Right Arm] O2 Sat by Pulse 100 100 100 Oximetry (%) GENERAL: Awake, alert, and fully oriented, in no acute distress. HEAD: Normal with no signs of trauma. EYES: Pupils equal, round and reactive to light, extraocular movements intact, sclera anicteric, conjunctiva clear. No lid lag. EARS, NOSE, THROAT: Ears normal, nares patent, oropharynx clear without exudates. dry mucous membranes. NECK: Normal range of motion, supple without lymphadenopathy, JVD, or masses. LUNGS: Breath sounds equal, clear to auscultation bilaterally. No wheezes, and no crackles. No accessory muscle use. HEART: Regular rate and rhythm, normal S1 and S2 without murmur, rub or gallop. ABDOMEN: Soft, nontender, not distended, normoactive bowel sounds, no guarding, no rebound, no masses. No hepatomegaly or splenomegaly. MUSCULOSKELETAL: Normal range of motion at all joints. No bony deformities or tenderness. No CVA tenderness. UPPER EXTREMITIES: 2+ pulses, warm, well-perfused. No cyanosis. No clubbing. No peripheral edema. outstretched hands tremor bilateral LOWER EXTREMITIES: 2+ pulses, warm, well-perfused. No calf tenderness. No peripheral edema. NEUROLOGICAL: Cranial nerves II-XII intact. Normal speech. PSYCHIATRIC: Cooperative. Good eye contact. Appropriate mood and affect. SKIN: Warm, dry, normal turgor, no rashes or lesions noted, normal capillary refill. Laboratory Results - last 24 hr 10/04/18 10/04/18 10/04/18 07:58 07:58 07:58 WBC 10.1 H RBC 4.09 Hgb 13.5 Hct 40.9 MCV 100.0 H MCH 33.0 MCHC 33.1 RDW 13.8 Plt Count 119 L MPV 10.6 Absolute Neuts (auto) 8.2 H Neutrophils % 81.3 D Lymphocytes % 11.5 D Monocytes % 6.5 Eosinophils % 0.2 Basophils % 0.5 Nucleated RBC % 0 Sodium 138 Potassium 3.5 Chloride 103 Carbon Dioxide 25 Anion Gap 11 BUN 17 Creatinine 0.7 Creat Clearance w eGFR > 60 Random Glucose 156 H Calcium 8.8 Total Bilirubin 0.8 AST 119 H ALT 101 H Alkaline Phosphatase 99 Total Protein 7.5 Albumin 3.7 Lipase 234 Serum , Qual Alcohol, Quantitative < 3.0 10/04/18 08:25 WBC RBC Hgb Hct MCV MCH MCHC RDW Plt Count MPV Absolute Neuts (auto) Neutrophils % Lymphocytes % Monocytes % Eosinophils % Basophils % Nucleated RBC % Sodium Potassium Chloride Carbon Dioxide Anion Gap BUN Creatinine Creat Clearance w eGFR Random Glucose Calcium Total Bilirubin AST ALT Alkaline Phosphatase Total Protein Albumin Lipase Serum , Qual Negative Alcohol, Quantitative ASSESSMENT/PLAN: This is a 48 year old female with a history of alcohol and substance abuse, presents with intractable vomiting. #vomiting: most likely related to alcohol abuse with gastritis -zofran prn; repeat ECG in am ; QTC 463 -po liquid; advance as tolerated -protonix 40mg IVPB #alcohol abuse; currently withdrawing ; CIWA 6 -counseled on cessation -ativan prn; due to transaminitis -neuro checks -banana bag -folate, thiamine -detox consulted -wants to go to [facility] when stable #elevated liver enzymes: most likely due to alcohol hepatitis; with component of chronic hep C; r.o other etiology such as stones due to history of dilated CBD and pancreatic duct -lipase negative -will repeat abdominal US to eval dilation; pending results possible need for MRCP -trend enzymes #substance abuse -on methadone 40mg daily -cont -detox consulted #tobacco use -counseled on cessation GI ppl: protonix VTE: lovenox Disposition: monitor med surg Visit type - Emergency Visit Emergency Visit: Yes ED Registration Date: 10/04/18 Care time: The patient presented to the Emergency Department on the above date and was hospitalized for further evaluation of their emergent condition. - New Patient This patient is new to me today: Yes Date on this admission: 10/04/18 - Critical Care Critical Care patient: No
[2018-10-04] MEDS ORDERED: FOLIC ACID INJECTION - 1 MG, THIAMINE HCL 100 MG, MULTIVIT INJECTION ADULT 10 ML in SOD... IVPB ONE (16:30)
[2018-10-04] MEDS ORDERED: ONDANSETRON 4 MG/2 ML VIAL IVPB PRN (16:52)
[2018-10-04] MEDS ORDERED: ONDANSETRON 4 MG/2 ML VIAL IVPUSH PRN (16:56)
[2018-10-04 18:18] VITALS: BMI 24.7
[2018-10-04] MEDS: PANTOPRAZOLE 40 MG TABLET (FP) PO SCH (18:53)
[2018-10-04] MEDS: MAG HYDROX/AL HYDROX/SIMETH 30 ML UNIT-DOSE CUP PO PRN (21:23)
[2018-10-05] MEDS: MAG HYDROX/AL HYDROX/SIMETH 30 ML UNIT-DOSE CUP PO PRN (06:13)
[2018-10-05] MEDS ORDERED: METHADONE HCL 10 MG TABLET PO SCH (06:45)
[2018-10-05] MEDS ORDERED: LORazepam 2 MG/ML SDV VIAL IVPUSH PRN (08:04)
[2018-10-05 08:10] LABS: BASO % 0.5 % (0-2.0); EOS % 0.1 % (0-4.5); HEMATOCRIT 41.9 % (32.4-45.2); HEMOGLOBIN 13.8 GM/dL (10.7-15.3); LYMPH % 16.7 % (8-40); MCH 33.1 pg (25.7-33.7); MEAN CELL VOLUME 100.3 fl (80-96); MEAN PLT VOLUME 10.9 fl (7.5-11.1); MONO % 7.2 % (3.8-10.2); NEUT % 75.5 % (42.8-82.8); PLATELET COUNT 111 K/MM3 (134-434); RBC 4.18 M/mm3 (3.60-5.2); RDW 13.8 % (11.6-15.6); WHITE BLOOD COUNT 8.5 K/mm3 (4.0-10.0)
[2018-10-05 08:21] LABS: ALBUMIN 3.5 g/dl (3.4-5.0); ALK PHOS 99 U/L (45-117); ANION GAP 10 MMOL/L (8-16); BILIRUBIN,TOTAL 0.9 mg/dL (0.2-1); BLOOD UREA NITROGEN 8 mg/dL (7-18); CALCIUM 8.1 mg/dL (8.5-10.1); CHLORIDE 101 mmol/L (98-107); CO2 23 mmol/L (21-32); CREATININE 0.7 mg/dL (0.55-1.3); GLUCOSE,RANDOM 105 mg/dL (74-106); MAGNESIUM 1.7 mg/dL (1.8-2.4); PHOSPHOROUS 2.2 mg/dL (2.5-4.9); POTASSIUM 3.9 mmol/L (3.5-5.1); SGOT/AST 80 U/L (15-37); SGPT/ALT 86 U/L (13-61); SODIUM 134 mmol/L (136-145); TOT PROT 7.6 g/dl (6.4-8.2)
--- NOTE | 2018-10-05 08:34 | PN ---
Teaching Attending Note Name of Resident: Alex Vasquez ATTENDING PHYSICIAN STATEMENT I saw and evaluated the patient. I reviewed the resident's note and discussed the case with the resident. I agree with the resident's findings and plan as documented. SUBJECTIVE: Patient is comfortable with no acute distress. No fever or chills. OBJECTIVE: Vital Signs Temperature 99.0 F 10/05/18 06:00 Pulse Rate 75 10/05/18 06:00 Respiratory Rate 18 10/05/18 06:00 Blood Pressure 141/103 H 10/05/18 06:00 O2 Sat by Pulse Oximetry (%) 100 10/04/18 21:00 GENERAL: Awake, alert, and fully oriented, in no acute distress. HEAD: Normal with no signs of trauma. EYES: Pupils equal, round and reactive to light, extraocular movements intact, sclera anicteric, conjunctiva clear. EARS, NOSE, THROAT: Ears normal, oropharynx clear without exudates. dry mucous membranes. NECK: Normal range of motion, supple without lymphadenopathy, JVD, or masses. LUNGS: Breath sounds equal, clear to auscultation bilaterally. No wheezes, and no crackles. No accessory muscle use. HEART: Regular rate and rhythm, normal S1 and S2 without murmur, rub or gallop. ABDOMEN: Soft, nontender, not distended, normoactive bowel sounds, no guarding, no rebound, no masses. No hepatomegaly or splenomegaly. EXTREMITIES: 2+ pulses, warm, well-perfused. No cyanosis. No clubbing. No peripheral edema. positive hand tremor R>L NEUROLOGICAL: Cranial nerves II-XII intact. Normal speech. PSYCHIATRIC: Cooperative. Good eye contact. Appropriate mood and affect. SKIN: Warm, dry, normal turgor, no rashes or lesions noted, normal capillary refill. CBCD WBC 8.5 K/mm3 (4.0-10.0) 10/05/18 06:30 RBC 4.18 M/mm3 (3.60-5.2) 10/05/18 06:30 Hgb 13.8 GM/dL (10.7-15.3) 10/05/18 06:30 Hct 41.9 % (32.4-45.2) 10/05/18 06:30 MCV 100.3 fl (80-96) H 10/05/18 06:30 MCHC 33.0 g/dl (32.0-36.0) 10/05/18 06:30 RDW 13.8 % (11.6-15.6) 10/05/18 06:30 Plt Count 111 K/MM3 (134-434) L 10/05/18 06:30 MPV 10.9 fl (7.5-11.1) 10/05/18 06:30 CMP Sodium 134 mmol/L (136-145) L 10/05/18 06:30 Potassium 3.9 mmol/L (3.5-5.1) 10/05/18 06:30 Chloride 101 mmol/L (98-107) 10/05/18 06:30 Carbon Dioxide 23 mmol/L (21-32) 10/05/18 06:30 Anion Gap 10 MMOL/L (8-16) 10/05/18 06:30 BUN 8 mg/dL (7-18) 10/05/18 06:30 Creatinine 0.7 mg/dL (0.55-1.3) 10/05/18 06:30 Creat Clearance w eGFR > 60 (>60) 10/05/18 06:30 Random Glucose 105 mg/dL (74-106) 10/05/18 06:30 Calcium 8.1 mg/dL (8.5-10.1) L 10/05/18 06:30 Total Bilirubin 0.9 mg/dL (0.2-1) 10/05/18 06:30 AST 80 U/L (15-37) H 10/05/18 06:30 ALT 86 U/L (13-61) H 10/05/18 06:30 Alkaline Phosphatase 99 U/L (45-117) 10/05/18 06:30 Total Protein 7.6 g/dl (6.4-8.2) 10/05/18 06:30 Albumin 3.5 g/dl (3.4-5.0) 10/05/18 06:30 Current Medications Generic Name Dose Route Start Last Admin Trade Name Freq PRN Reason Stop Dose Admin Al Hydroxide/Mg Hydroxide 30 ml 10/04/18 20:54 10/05/18 06:13 Mylanta Oral Suspension - PO 30 ml Q6H PRN Administration DYSPEPSIA Enoxaparin Sodium 40 mg 10/05/18 10:00 Lovenox - SQ DAILY [facility] Folic Acid 1 mg 10/05/18 10:00 Folic Acid - PO DAILY [facility] Sodium Chloride 1,000 mls @ 125 mls/hr 10/04/18 16:15 10/05/18 03:00 Normal Saline - IV 125 mls/hr ASDIR GONZALEZ Administration Lorazepam 1 mg 10/05/18 08:04 Ativan Injection - IVPUSH Q4H PRN ANXIETY Methadone HCl 30 mg 10/05/18 06:45 10/05/18 06:50 Dolophine - PO 30 mg DAILY@0600 [facility] Administration Multivitamins/Minerals/Vitamin C 1 tab 10/05/18 10:00 Tab-A-Vit - PO DAILY [facility] Pantoprazole Sodium 40 mg 10/04/18 16:15 10/04/18 18:53 Protonix - PO 40 mg DAILY [facility] Administration Thiamine HCl 100 mg 10/05/18 22:00 Vitamin B1 - PO HS [facility] Home Medications Medication Instructions Recorded Methadone [Dolophine -] 30 mg PO DAILY 04/16/18 Divalproex [Depakote -] 250 mg PO AM #30 tablet.ec 05/09/18 Divalproex [Depakote -] 500 mg PO HS #30 tablet.ec 05/09/18 Gabapentin 100 mg PO TID #30 capsule 05/09/18 Quetiapine Fumarate [Seroquel -] 200 mg PO DAILY tablet 07/20/18 Amitriptyline HCl [Elavil -] 1 tab PO BID 09/20/18 Buspirone HCl [Buspar -] 1 tab PO BID 09/20/18 Docusate Sodium [Colace -] 100 mg PO BID PRN #60 capsule 09/20/18 Folic Acid - 1 mg PO DAILY #30 tablet 09/20/18 Melatonin 1 cap PO HS 09/20/18 Multivitamin,Therapeutic [Thera] 1 tab PO DAILY #30 tablet 09/20/18 Multivitamins [Multivit ([facility] 1 tab PO DAILY #30 tab 09/20/18 Formulary)] Pantoprazole Sodium [Protonix -] 40 mg PO DAILY PRN #30 tablet.ec 09/20/18 MDD 1 Thiamine HCl [Vitamin B1 -] 100 mg PO HS #30 tablet 09/20/18 Ondansetron [Zofran Odt -] 4 mg SL TID PRN #9 od.tablet 10/04/18 ASSESSMENT AND PLAN: Patient is a 48yo old with PMhx of substance and alcohol dependency, bipolar, Presenting with intractable vomiting due to alcohol consumption # Intractable vomiting due to substance abuse and EtOh dependency with history of dilated CBD. GI consult.Dr. Umaña, to evaluate further if needed. # ACute Transaminitis improving repeat levels in am #Hx of Substance Abuse continue on home methadone, will hold for now due to prolonged [id number], will hold most of meds that prolongs the QT. will repeat the EKG in am #Bipolar continue home meds. f/u with psychiatry, will reduce the dose of seroquel , will get pschy. to evaluate her. Her psychiatrist is Dr. Arriaga will place a consult for him. # Macrocytosis Check b12/folate # untreated Hep C, F/u OP for viral load, eval for harvoni # EtOH Abuse/WD seizure precaution, will dc the ativan since the patient is not withdrawing. -Refer to [facility] on [place].
[2018-10-05] MEDS ORDERED: DOCUSATE SODIUM 100 MG CAPSULE (FP) PO PRN (08:47)
[2018-10-05] MEDS: PANTOPRAZOLE 40 MG TABLET (FP) PO SCH (09:33)
[2018-10-05] MEDS ORDERED: ENOXAPARIN NA (PORCINE) 40 MG/0.4 ML DISP.SYRIN SQ SCH ×2 (10:00)
[2018-10-05] MEDS ORDERED: FOLIC ACID 1 MG TABLET (FP) PO SCH (10:00)
[2018-10-05] MEDS ORDERED: MULTIVITAMINS (DAILY MVI) TABLET (FP) PO SCH (10:00)
--- NOTE | 2018-10-05 10:27 | EKG ---
Test Reason : Blood Pressure : / mmHG Vent. Rate : 071 BPM Atrial Rate : 071 BPM P-R Int : 136 ms QRS Dur : 084 ms QT Int : 470 ms P-R-T Axes : 032 032 043 degrees QTc Int : 510 ms NORMAL SINUS RHYTHM WITH SINUS ARRHYTHMIA MINIMAL VOLTAGE CRITERIA FOR LVH, MAY BE NORMAL VARIANT PROLONGED QT ABNORMAL ECG WHEN COMPARED WITH ECG OF 04-OCT-2018 15:52, NO SIGNIFICANT CHANGE WAS FOUND Confirmed by YAMIL SÁNCHEZ, KELLY ([id number]) on 10/05/2018 10:26:40 AM Referred By: Confirmed By:KELLY LOBO MD
--- NOTE | 2018-10-05 10:29 | EKG ---
Test Reason : Blood Pressure : / mmHG Vent. Rate : 079 BPM Atrial Rate : 079 BPM P-R Int : 128 ms QRS Dur : 084 ms QT Int : 404 ms P-R-T Axes : 035 047 049 degrees QTc Int : 463 ms NORMAL SINUS RHYTHM SEPTAL INFARCT , AGE UNDETERMINED ABNORMAL ECG WHEN COMPARED WITH ECG OF 12-AUG-2018 10:31, NO SIGNIFICANT CHANGE WAS FOUND Confirmed by KELLY LOBO MD ([id number]) on 10/05/2018 10:28:51 AM Referred By: Confirmed By:KELLY LOBO MD
[2018-10-05] MEDS ORDERED: MAGNESIUM SULF 50% (8.12 MEQ/2 ML-1 GM VIAL) IVPB ONE (10:56)
[2018-10-05] MEDS: POTASSIUM CHLORIDE 40 MEQ in SODIUM CHLORIDE 1,000 ML IVPB SCH ×4 (11:00→23:23)
--- NOTE | 2018-10-05 13:14 | PN ---
Physical Exam: SUBJECTIVE: Patient seen and examined. Pt. received Methadone this morning and has been receiving it for 1 year now. Pt. states that she will start treatment for Hep C in mid-September. Pt. states that she did not seek treatment because "she was running the streets." Pt. endorses epigastric abdominal pain that radiates bilaterally to back. OBJECTIVE: Vital Signs Period Temp Pulse Resp BP Sys/Moore Pulse Ox Last 24 Hr 98.2 F-99.9 F 65-79 18-18 129-164/75-104 100-100 GENERAL: The patient is awake, alert, and fully oriented, in mild distress. HEAD: Normal with no signs of trauma. EYES: PERRL, sclera anicteric, conjunctiva clear. No ptosis. ENT: Ears normal, nares patent, moist mucous membranes. LUNGS: Breath sounds equal, clear to auscultation bilaterally, no wheezes, no crackles, no accessory muscle use, no CVA tenderness. HEART: Regular rate and rhythm, S1, S2 without murmur, no JVD. ABDOMEN: Soft, Epigastric, periumbilical and LLQ tender, nondistended, normoactive bowel sounds, no guarding, no rebound, hepatomegaly present, no masses. EXTREMITIES: 2+ dorsal pedal pulses, warm, no calf tenderness, well-perfused, no edema. NEUROLOGICAL: Normal speech, gait not observed. PSYCH: Anxious SKIN: Warm, dry, normal turgor, no rashes or lesions noted Laboratory Results - last 24 hr 10/05/18 10/05/18 06:30 06:30 WBC 8.5 RBC 4.18 Hgb 13.8 Hct 41.9 MCV 100.3 H MCH 33.1 MCHC 33.0 RDW 13.8 Plt Count 111 L MPV 10.9 Absolute Neuts (auto) 6.4 Neutrophils % 75.5 Lymphocytes % 16.7 D Monocytes % 7.2 Eosinophils % 0.1 Basophils % 0.5 Nucleated RBC % 0 Sodium 134 L Potassium 3.9 Chloride 101 Carbon Dioxide 23 Anion Gap 10 BUN 8 Creatinine 0.7 Creat Clearance w eGFR > 60 Random Glucose 105 Calcium 8.1 L Phosphorus 2.2 L Magnesium 1.7 L Total Bilirubin 0.9 AST 80 H ALT 86 H Alkaline Phosphatase 99 Total Protein 7.6 Albumin 3.5 Active Medications Home Medications Medication Instructions Recorded Docusate Sodium [Colace -] 100 mg PO BID PRN #60 capsule 09/20/18 Folic Acid - 1 mg PO DAILY #30 tablet 09/20/18 Pantoprazole Sodium [Protonix -] 40 mg PO DAILY PRN #30 tablet.ec 09/20/18 MDD 1 Ondansetron [Zofran Odt -] 4 mg SL TID PRN #9 od.tablet 10/04/18 Gabapentin 1 cap PO BID 10/05/18 Quetiapine Fumarate [Seroquel] 1 tab PO BID 10/05/18 traZODone HCL [Trazodone HCl] 1 tab PO DAILY 10/05/18 Current Medications Al Hydroxide/Mg Hydroxide (Mylanta Oral Suspension -) 30 ml PO Q6H PRN PRN Reason: DYSPEPSIA Last Admin: 10/05/18 06:13 Dose: 30 ml Docusate Sodium (Colace -) 100 mg PO BID PRN PRN Reason: CONSTIPATION Enoxaparin Sodium (Lovenox -) 40 mg SQ DAILY [facility] Last Admin: 10/05/18 09:34 Dose: 40 mg Folic Acid (Folic Acid -) 1 mg PO DAILY [facility] Last Admin: 10/05/18 09:33 Dose: 1 mg Gabapentin (Neurontin -) 100 mg PO BID [facility] Potassium Chloride 40 meq/ (Sodium Chloride) 1,020 mls @ 125 mls/hr IVPB Q8H [facility] Melatonin (Melatonin) 1 mg PO HS [facility] Multivitamins/Minerals/Vitamin C (Tab-A-Vit -) 1 tab PO DAILY [facility] Last Admin: 10/05/18 09:33 Dose: 1 tab Pantoprazole Sodium (Protonix -) 40 mg PO DAILY [facility] Last Admin: 10/05/18 09:33 Dose: 40 mg Thiamine HCl (Vitamin B1 -) 100 mg PO HS [facility] ASSESSMENT/PLAN: Pt. is a 48 y.o. F with PMHx. of alcohol polysubstance abuse, and bipolar disorder (unconfirmed), presents with vomiting. #Vomiting likely 2/2 alcohol abuse -D/C Zofran as QTc was 510, increased from 463 yesterday -Pt. has not vomited since hospital admission -protonix 40mg IVPB for likely history of gastritis, however Pt. states she has never had EGD -consider EGD as outpatient to discover is varices are present #EtOH abuse -CIWA 3 -advised Pt. to refrain from drinking -ativan D/C- as Pt. has prolonged QT -neuro checks -banana bag -folate, thiamine -Detox (Dr. Maxwell) consulted -wants to go to [facility] when stable #Transaminitis -likely d/t Hep C and EtOH- Pt. states she has an appointment mid-September to begin Hep C workup. -history of dilated CBD and CHD to 7mm and 9mm respectively from abdominal MRI in 2017 -lipase wnl -Abd. US: mild CBD dilatation (chronic), w/o gross calculus, possible minimal to mild GB wall thickening w/ possible trace pericholecystic fluid accumulation. No stones noted. -LFTs down trending -f/u Bilirubin in AM #Polysubstance abuse -D/C Methadone as Pt. has prolonged QT -c/w IVF, Pt. amenable to going back to [facility] once stabilized -f/u Detox consult recommendations especially on Methadone in light of prolonged QT -f/u Psychiatry recommendations on psychiatric medications in light of prolonged QT #F/E/N -NS @ 125ml/hr -monitor electrolytes and replete as needed -Low fat/low carb diet. #Prophylaxis GI ppl: Protonix 40mg VTE: Lovenox 40mg SQ Visit type - Emergency Visit Emergency Visit: Yes ED Registration Date: 10/04/18 Care time: The patient presented to the Emergency Department on the above date and was hospitalized for further evaluation of their emergent condition. - New Patient This patient is new to me today: Yes Date on this admission: 10/05/18 - Critical Care Critical Care patient: No - Discharge Referral Referred to [facility] Med P.C.: No
[2018-10-05] MEDS ORDERED: GABAPENTIN 100 MG CAPSULE (FP) PO SCH ×2 (14:00→22:00)
--- NOTE | 2018-10-05 15:16 | PN ---
[facility] Progress Note (SOAP) Subjective: 48 y.o. female patient referred for alcohol dependence , patient reports 2 pints/day , latest use yesterday prior to presenting to the hospital for nausea and vomiting, started on prn Ativan d/c'd today due to prolonged QTc , on EKG 510 ms . Patient is on MMTP current daily dose 30 mg , latest administered today , per MR and staff d/c"d as of tomorrow . i-STOP no Rx. Currently patient complains of abdominal pain and back pain - NPO pending further testing. PMHX : gastritis, pnacreatitis , Hep C not treated. Objective: thin, non-ambulatory , no tremors UE , AAO x 3 . Vital Signs - 24 hr 10/04/18 10/04/18 10/04/18 16:45 16:50 18:02 Temperature 98.2 F 99.9 F H Pulse Rate 79 Pulse Rate [ 65 Left Radial] Respiratory 18 18 18 Rate Blood Pressure 164/104 H Blood Pressure 162/98 [Right Arm] O2 Sat by Pulse 100 100 100 Oximetry (%) 10/04/18 10/05/18 10/05/18 21:00 06:00 10:00 Temperature 99.0 F Pulse Rate 75 73 Pulse Rate [ Left Radial] Respiratory 18 18 18 Rate Blood Pressure 141/103 H 129/75 Blood Pressure [Right Arm] O2 Sat by Pulse 100 Oximetry (%) Abnormal Lab Results 10/05/18 10/05/18 06:30 06:30 MCV 100.3 H Plt Count 111 L Sodium 134 L Calcium 8.1 L Phosphorus 2.2 L Magnesium 1.7 L AST 80 H ALT 86 H Home Medication List Medication Instructions Recorded Confirmed Type Gabapentin 1 cap PO BID 10/05/18 10/05/18 History Quetiapine Fumarate [Seroquel] 1 tab PO BID 10/05/18 10/05/18 History traZODone HCL [Trazodone HCl] 1 tab PO DAILY 10/05/18 10/05/18 History Active Medications Generic Name Dose Route Start Last Admin Trade Name Freq PRN Reason Stop Dose Admin Al Hydroxide/Mg Hydroxide 30 ml 10/04/18 20:54 10/05/18 06:13 Mylanta Oral Suspension - PO 30 ml Q6H PRN Administration DYSPEPSIA Docusate Sodium 100 mg 10/05/18 08:47 Colace - PO BID PRN CONSTIPATION Enoxaparin Sodium 40 mg 10/05/18 10:00 10/05/18 09:34 Lovenox - SQ 40 mg DAILY [facility] Administration Folic Acid 1 mg 10/05/18 10:00 10/05/18 09:33 Folic Acid - PO 1 mg DAILY [facility] Administration Gabapentin 100 mg 10/05/18 22:00 Neurontin - PO BID [facility] Potassium Chloride 40 meq/ 1,020 mls @ 125 mls/hr 10/05/18 10:57 Sodium Chloride IVPB Q8H [facility] Melatonin 1 mg 10/05/18 22:00 Melatonin PO HS [facility] Multivitamins/Minerals/Vitamin C 1 tab 10/05/18 10:00 10/05/18 09:33 Tab-A-Vit - PO 1 tab DAILY [facility] Administration Pantoprazole Sodium 40 mg 10/04/18 16:15 10/05/18 09:33 Protonix - PO 40 mg DAILY [facility] Administration Thiamine HCl 100 mg 10/05/18 22:00 Vitamin B1 - PO HS [facility] 10/05/18 15:17 Assessment: 10/05/18 15:19 Alcohol dependence with withdrawal Opioid dependence on MMTP Plan: if discontinuation of Methadone is desired by medicine due to prolonged QTc , would recommend slow taper vs abrupt discontinuation in order to minimize withdrawal symptoms. . Recommend Methadone 25 mg q d and re- check EKG in 48-72 hrs , refer back to MMTP program upon d/c from facility . Recommend short Valium taper for ETOH withdrawal .
[2018-10-05] MEDS ORDERED: diazePAM 5 MG TABLET PO ONE (15:22)
[2018-10-05] MEDS: diazePAM 5 MG TABLET PO SCH (21:52)
[2018-10-05] MEDS ORDERED: DIVALPROEX SODIUM 500 MG TABLET E.C. PO SCH (22:00)
[2018-10-05] MEDS ORDERED: MELATONIN 1 MG TABLET PO SCH (22:00)
[2018-10-05] MEDS ORDERED: THIAMINE HCL 100 MG TABLET (FP) PO SCH (22:00)
[2018-10-06 05:52] VITALS: BP 138/95; PULSE 64; TEMP 98.2
[2018-10-06] MEDS: diazePAM 5 MG TABLET PO SCH (06:37)
[2018-10-06] MEDS: POTASSIUM CHLORIDE 40 MEQ in SODIUM CHLORIDE 1,000 ML IVPB SCH (06:37)
[2018-10-06] MEDS ORDERED: DIVALPROEX SODIUM 250 MG TABLET E.C. PO SCH (07:00)
--- NOTE | 2018-10-06 08:56 | DS ---
Physical Exam: SUBJECTIVE: Patient seen and examined OBJECTIVE: Vital Signs Period Temp Pulse Resp BP Sys/Moore Pulse Ox Last 24 Hr 98.2 F-98.7 F 64-73 18-20 127-138/75-95 99-100 PHYSICAL EXAM GENERAL: The patient is awake, alert, and fully oriented, in mild distress. HEAD: Normal with no signs of trauma. EYES: PERRL, sclera anicteric, conjunctiva clear. No ptosis. ENT: Ears normal, nares patent, moist mucous membranes. LUNGS: Breath sounds equal, clear to auscultation bilaterally, no wheezes, no crackles, no accessory muscle use, no CVA tenderness. HEART: Regular rate and rhythm, S1, S2 without murmur, no JVD. ABDOMEN: Soft, Epigastric, periumbilical and LLQ tender, nondistended, normoactive bowel sounds, no guarding, no rebound, hepatomegaly present, no masses. EXTREMITIES: 2+ dorsal pedal pulses, warm, no calf tenderness, well-perfused, no edema. NEUROLOGICAL: Normal speech, gait not observed. PSYCH: Anxious SKIN: Warm, dry, normal turgor, no rashes or lesions noted LABS Laboratory Last Values WBC 8.5 K/mm3 (4.0-10.0) 10/05/18 06:30 RBC 4.18 M/mm3 (3.60-5.2) 10/05/18 06:30 Hgb 13.8 GM/dL (10.7-15.3) 10/05/18 06:30 Hct 41.9 % (32.4-45.2) 10/05/18 06:30 MCV 100.3 fl (80-96) H 10/05/18 06:30 MCH 33.1 pg (25.7-33.7) 10/05/18 06:30 MCHC 33.0 g/dl (32.0-36.0) 10/05/18 06:30 RDW 13.8 % (11.6-15.6) 10/05/18 06:30 Plt Count 111 K/MM3 (134-434) L 10/05/18 06:30 MPV 10.9 fl (7.5-11.1) 10/05/18 06:30 Absolute Neuts (auto) 6.4 K/mm3 (1.5-8.0) 10/05/18 06:30 Neutrophils % 75.5 % (42.8-82.8) 10/05/18 06:30 Lymphocytes % 16.7 % (8-40) D 10/05/18 06:30 Monocytes % 7.2 % (3.8-10.2) 10/05/18 06:30 Eosinophils % 0.1 % (0-4.5) 10/05/18 06:30 Basophils % 0.5 % (0-2.0) 10/05/18 06:30 Nucleated RBC % 0 % (0-0) 10/05/18 06:30 Sodium 134 mmol/L (136-145) L 10/05/18 06:30 Potassium 3.9 mmol/L (3.5-5.1) 10/05/18 06:30 Chloride 101 mmol/L (98-107) 10/05/18 06:30 Carbon Dioxide 23 mmol/L (21-32) 10/05/18 06:30 Anion Gap 10 MMOL/L (8-16) 10/05/18 06:30 BUN 8 mg/dL (7-18) 10/05/18 06:30 Creatinine 0.7 mg/dL (0.55-1.3) 10/05/18 06:30 Creat Clearance w eGFR > 60 (>60) 10/05/18 06:30 Random Glucose 105 mg/dL (74-106) 10/05/18 06:30 Calcium 8.1 mg/dL (8.5-10.1) L 10/05/18 06:30 Phosphorus 2.2 mg/dL (2.5-4.9) L 10/05/18 06:30 Magnesium 1.7 mg/dL (1.8-2.4) L 10/05/18 06:30 Total Bilirubin 0.9 mg/dL (0.2-1) 10/05/18 06:30 AST 80 U/L (15-37) H 10/05/18 06:30 ALT 86 U/L (13-61) H 10/05/18 06:30 Alkaline Phosphatase 99 U/L (45-117) 10/05/18 06:30 Total Protein 7.6 g/dl (6.4-8.2) 10/05/18 06:30 Albumin 3.5 g/dl (3.4-5.0) 10/05/18 06:30 Lipase 234 U/L (73-393) 10/04/18 07:58 Serum , Qual Negative 10/04/18 08:25 Alcohol, Quantitative < 3.0 mg/dL (0.0-5.0) 10/04/18 07:58 HOSPITAL COURSE: Date of Admission:10/04/18 Date of Discharge: 10/06/18 Pt, presents from [facility] for vomiting. Given Zofran in ED. Abdominal US showed chronic CBD dilatation without gross calculus. Methadone and Zofran discontinued for prolonged QT. Addiction medicine specialist consulted for alternative treatment. Pt. left AMA. Minutes to complete discharge: 30 Discharge Summary Reason For Visit: INTRACTABLE VOMITING/ABD PAIN Condition: Guarded - Instructions Diet, Activity, Other Instructions: your blood work was normal you were vomiting and having pain likely from alcohol use follow up with your primary doctor regarding your symptoms Please follow up with your PCP to discuss your prolonged QT(heart dysfunction). Referrals: Namrata Arce DRAGLINE OILER [Primary Care Provider] - Disposition: AGAINST MEDICAL ADVICE - Home Medications Comprehensive Discharge Medication List: Ambulatory Orders Docusate Sodium [Colace -] 100 mg PO BID PRN #60 capsule 09/20/18 Folic Acid - 1 mg PO DAILY #30 tablet 09/20/18 Pantoprazole Sodium [Protonix -] 40 mg PO DAILY PRN #30 tablet.ec MDD 1 Ondansetron [Zofran Odt -] 4 mg SL TID PRN #9 od.tablet 10/04/18 Gabapentin 1 cap PO BID 10/05/18 Quetiapine Fumarate [Seroquel] 1 tab PO BID 10/05/18 traZODone HCL [Trazodone HCl] 1 tab PO DAILY 10/05/18 This patient is new to me today: No Emergency Visit: Yes ED Registration Date: 10/04/18 Care time: The patient presented to the Emergency Department on the above date and was hospitalized for further evaluation of their emergent condition. Critical Care patient: No - Discharge Referral Referred to [facility] Med P.C.: No
--- NOTE | 2018-10-06 16:22 | PN ---
Teaching Attending Note Name of Resident: Alex Vasquez ATTENDING PHYSICIAN STATEMENT I saw and evaluated the patient. I reviewed the resident's note and discussed the case with the resident. I agree with the resident's findings and plan as documented. SUBJECTIVE: Patient signed against medical advice as per night team. OBJECTIVE: Vital Signs Temperature 98.2 F 10/06/18 05:50 Pulse Rate 64 10/06/18 05:50 Respiratory Rate 18 10/06/18 05:50 Blood Pressure 138/95 10/06/18 05:50 O2 Sat by Pulse Oximetry (%) 99 10/05/18 21:00 Home Medications Medication Instructions Recorded Docusate Sodium [Colace -] 100 mg PO BID PRN #60 capsule 09/20/18 Folic Acid - 1 mg PO DAILY #30 tablet 09/20/18 Pantoprazole Sodium [Protonix -] 40 mg PO DAILY PRN #30 tablet.ec 09/20/18 MDD 1 Ondansetron [Zofran Odt -] 4 mg SL TID PRN #9 od.tablet 10/04/18 Gabapentin 1 cap PO BID 10/05/18 Quetiapine Fumarate [Seroquel] 1 tab PO BID 10/05/18 traZODone HCL [Trazodone HCl] 1 tab PO DAILY 10/05/18 ASSESSMENT AND PLAN: Patient is a 48yo old with PMhx of substance and alcohol dependency, bipolar, Presenting with intractable vomiting due to alcohol consumption # Intractable vomiting due to substance abuse and EtOh dependency with history of dilated CBD. GI consult.Dr. Umaña, to evaluate further if needed. # ACute Transaminitis improving #Hx of Substance Abuse on home methadone, will hold for now due to prolonged QT= 508, will hold most of meds that prolongs the QT. #Bipolar continue home meds. f/u with psychiatry, will reduce the dose of seroquel , pschy. to evaluate her. Her psychiatrist is Dr. Arriagafor consult . # Macrocytosis Check b12/folate # untreated Hep C, F/u OP for viral load, eval for harvoni # EtOH Abuse/WD seizure precaution, will dc the ativan since the patient is not withdrawing. -Refer to [facility] on [place].
[2018-10-07] MEDS ORDERED: diazePAM 5 MG TABLET PO SCH (10:00)
[2018-10-08] MEDS ORDERED: diazePAM 5 MG TABLET PO SCH (10:00)
== END 2018-10-06 08:02 | disposition left against medical advice (07) | DRG 54 ==
LOC: JER 07:15 → JERBED 13:05 → OBSVTOIN 16:03 → J6S 17:30
PROVIDERS: ADMIT Internal Medicine; ATTEND Internal Medicine
DX: G43.A1 Cyclical vomiting, in migraine, intractable (principal); K29.70 Gastritis, unspecified, without bleeding; D75.89 Other specified diseases of blood and blood-forming organs; F11.20 Opioid dependence, uncomplicated; F17.210 Nicotine dependence, cigarettes, uncomplicated; F31.89 Other bipolar disorder; R74.0 Nonspecific elevation of levels of transaminase and lactic acid dehydrogenase [LDH]; B19.20 Unspecified viral hepatitis C without hepatic coma; K83.8 Other specified diseases of biliary tract; F10.230 Alcohol dependence with withdrawal, uncomplicated
CPT/HCPCS: 36415; 76705-TC; 80053; 80307; 83690; 83735; 84100; 84703; 85025; 93005; 93010; 99284-25; G0378; J7030

== ENCOUNTER 2018-10-11 09:24 | Inpatient (IN) | payer OTHER ==
[2018-10-11 10:43] VITALS: BMI 23.4
--- NOTE | 2018-10-11 11:04 | HP ---
CIWA Score Nausea/Vomitin Muscle Tremors: 2 Anxiety: 2 Agitation: 2 Paroxysmal Sweats: 1-Minimal Palms Moist Orientation: 0-Oriented Tacttile Disturbances: 1-Very Mild Itch/Numbness Auditory Disturbances: 1-Very Mild Visual Disturbances: 0-None Headache: 2-Mild CIWA-Ar Total Score: 13 - Admission Criteria OASAS Guidelines: Admission for Medically Managed Detox: Requires at least one of the followin. CIWA greater than 12 2. Seizures within the past 24 hours 3. Delirium tremens within the past 24 hours 4. Hallucinations within the past 24 hours 5. Acute intervention needed for co occurring medical disorder 6. Acute intervention needed for co occurring psychiatric disorder 7. Severe withdrawal that cannot be handled at a lower level of care (continued vomiting, continued diarrhea, abnormal vital signs) requiring intravenous medication and/or fluids 8. Patient presents the following: CIWA greater than 12 Admission Criteria Met: Admission criteria met Admission ROS [facility] - HPI Chief Complaint: i need help to stop drinking alcohol Allergies/Adverse Reactions: Allergies Allergy/AdvReac Type Severity Reaction Status Date / Time metoclopramide HCl Allergy Severe dystonic Verified 10/11/18 11:01 [From Reglan] reaction prochlorperazine maleate Allergy Severe DYSTONIA Verified 10/11/18 11:01 [From Compazine] haloperidol [From Haldol] Allergy Verified 10/11/18 11:01 mirtazapine [From Remeron] AdvReac Severe Difficulty Verified 10/11/18 11:01 Breathing History of Present Illness: this 48 years old female with alcohol dependence,seeking detox,withdrawal symptom,last detox 05/17 [facility] syncope history of pancreatitis mmtp 25 mgs/day last medicated today schizophrenia no meds for last 4 days weight loss gerd no significant period of sobriety Exam Limitations: No Limitations - Ebola screening Have you traveled outside of the country in the last 21 days: No Have you had contact with anyone from an Ebola affected area: No Have you been sick,other than usual withdrawal symptoms: No Do you have a fever: No - Review of Systems Constitutional: Loss of Appetite, Malaise, Night Sweats, Changes in sleep, Weakness, Unintentional Wgt. Loss EENT: reports: Nose Congestion Respiratory: reports: No Symptoms reported Cardiac: reports: No Symptoms Reported GI: reports: Nausea, Poor Appetite, Vomiting, Abdominal cramping : reports: No Symptoms Reported Musculoskeletal: reports: Back Pain, Muscle Pain Integumentary: reports: Dryness Neuro: reports: Headache, Tremors Endocrine: reports: No Symptoms Reported Hematology: reports: No Symptoms Reported Psychiatric: reports: No Sypmtoms Reported, Judgement Intact, Mood/Affect Appropiate, Orientated x3 (schizophrenia) Patient History - Patient Medical History Hx Anemia: Yes (as a teen, had iron and transfusions) Hx Asthma: Yes (ON MDI) Hx Chronic Obstructive Pulmonary Disease (COPD): No Hx Cancer: No Hx Cardiac Disorders: No Hx Congestive Heart Failure: No Hx Hypertension: No Hx Hypercholesterolemia: No Hx Pacemaker: No HX Cerebrovascular Accident: No Hx Seizures: No Hx Dementia: No Hx Diabetes: No Hx Gastrointestinal Disorders: Yes (several admissions for etoh-related pancreatitis) Hx Liver Disease: Yes (hepatitis C, not treated ) Hx Genitourinary Disorders: No Hx Sexually Transmitted Disorders: No Hx Renal Disease (ESRD): No Hx Thyroid Disease: No Hx Human Immunodeficiency Virus (HIV): No (last 05/17 negative) Hx Hepatitis C: Yes Hx Depression: No Hx Suicide Attempt: No Hx Bipolar Disorder: Yes Hx Schizophrenia: No Other Medical History: no suicidal,no homicidal - Patient Surgical History Past Surgical History: Yes Hx Neurologic Surgery: No Hx Cataract Extraction: No Hx Cardiac Surgery: No Hx Lung Surgery: No Hx Breast Surgery: No Hx Breast Biopsy: No Hx Abdominal Surgery: No Hx Appendectomy: No Hx Cholecystectomy: No Hx Genitourinary Surgery: No Hx Section: Yes ( x2 last 3 years ago) Hx Orthopedic Surgery: No Hx Hysterectomy: No Other Surgical History: age 9 - abscess/tumor, benign per pt Anesthesia Reaction: No - PPD History Previous Implant?: Yes Documented Results: Negative w/proof Implanted On Prior [facility] Admission?: Yes Date: 11/07/17 Results: 0mm PPD to be Administered?: No - Reproductive History Patient is a Female of Child Bearing Age (11 -55 yrs old): Yes Last Menstrual Period: 10/04/18 Patient : No - Smoking Cessation Smoking history: Current every day smoker Have you smoked in the past 12 months: Yes Aproximately how many cigarettes per day: 5 Cigars Per Day: 0 Hx Chewing Tobacco Use: No Initiated information on smoking cessation: Yes 'Breaking Loose' booklet given: 10/11/18 - Substance & Tx. History Hx Alcohol Use: Yes Hx Substance Use: Yes Substance Use Type: Alcohol, Marijuana Hx Substance Use Treatment: Yes ([facility] 05/17) - Substances Abused Alcohol Route: Oral Frequency: Daily Amount used: 2 pints vodka Age of first use: 16 Date of Last Use: 10/11/18 Marijuana/Hashish Route: Smoking Frequency: Daily Amount used: 2 drags from a joint Age of first use: 16 Date of Last Use: 10/11/18 Family Disease History - Family Disease History Family Disease History: Diabetes: Grandparent (mgm - dm, htn), Other: Father ( CVA), Mother (alive, well), Brother (5 - 1 with AIDS), Sister (4 - 1 with THROAT CA), Son (4), Daughter (7) Admission Physical Exam [facility] - Vital Signs Vital Signs: Vital Signs - 24 hr 10/11/18 10:37 Temperature 97.6 F Pulse Rate 105 H Respiratory 17 Rate Blood Pressure 126/85 - Physical General Appearance: Yes: Moderate Distress, Tremorous, Irritable, Sweating, Anxious HEENTM: Yes: Normal ENT Inspection, PARTH, Pharynx Normal, Other (no lower denture) Respiratory: Yes: Lungs Clear, Normal Breath Sounds, No Respiratory Distress, Other (coughing yellowish mucous for 3 days) Neck: Yes: Within Normal Limits, Supple, Trachea in good position Breast: Yes: Breast Exam Deferred Cardiology: Yes: Tachycardia Abdominal: Yes: Within Normal Limits, Normal Bowel Sounds, Non Tender, Soft Genitourinary: Yes: Within Normal Limits Back: Yes: Muscle Spasm Musculoskeletal: Yes: Back pain, Muscle Pain Extremities: Yes: Within Normal Limits, Tremors Neurological: Yes: second worker II-XII NML intact, Fully Oriented, Alert, Motor Strength 5/5 Integumentary: Yes: Dry Lymphatic: Yes: Within Normal Limits - Diagnostic (1) Alcohol dependence with uncomplicated withdrawal Current Visit: No Status: Acute (2) GERD (gastroesophageal reflux disease) Current Visit: No Status: Chronic Qualifiers: Esophagitis presence: without esophagitis Qualified Code(s): K21.9 - Gastro -esophageal reflux disease without esophagitis Comment: dietary precautions, monitor. (3) Nicotine dependence Current Visit: No Status: Chronic Qualifiers: Nicotine product type: cigarettes Substance use status: in withdrawal Qualified Code(s): F17.213 - Nicotine dependence, cigarettes, with withdrawal (4) Opioid dependence on agonist therapy Current Visit: No Status: Chronic Comment: on methadone 30 mg qd. (5) Pancreatitis Current Visit: No Status: Resolved Comment: states only occurs with etoh, has been in recovery x 1 mo with no recurrent symptoms. will refer for gi eval. (6) Alcohol dependence with uncomplicated intoxication Current Visit: Yes Status: Acute (7) Dehydration Current Visit: Yes Status: Acute (8) Hepatitis C Current Visit: No Status: Chronic Qualifiers: Viral hepatitis chronicity: chronic Hepatic coma status: without hepatic coma Qualified Code(s): B18.2 - Chronic viral hepatitis C Comment: encourage etoh cessation and lft monitoring prior to starting meds. as per d/w telephone maintainer will offer epclusa (pill burden with mavyret may be difficult for her to manage with her swallowing concerns). advised she will need to avoid ppi during hcv tx. will d/w tx team pending labs results. (9) Weight loss Current Visit: Yes Status: Acute Cleared for Admission S - Detox or Rehab [facility] Level of Care: Medically Managed Detox Regimen/Protocol: Librium [facility] Breath Alcohol Content Breath Alcohol Content: 0.261 Urine Pregancy Test - Result Urine Test Results: Negative- NO Line Present Urine Drug Screen - Results Drug Screen Negative: No Urine Drug Screen Results: THC-Marijuana, BZO-Benzodiazepines, MTD-Methadone
[2018-10-11] MEDS ORDERED: MAGNESIUM CITRATE 300 ML BOTTLE PO PRN (11:19)
[2018-10-11] MEDS ORDERED: ACETAMINOPHEN 325 MG TABLET (FP) PO PRN (11:19)
[2018-10-11] MEDS ORDERED: IBUPROFEN 400 MG TABLET (FP) PO PRN (11:19)
[2018-10-11] MEDS ORDERED: LOPERAMIDE HCL 2 MG CAPSULE PO PRN (11:19)
[2018-10-11] MEDS ORDERED: MAGNESIUM HYDROX 2400MG/30ML ORAL SUSPENSION 30 ML CUP PO PRN (11:19)
[2018-10-11] MEDS ORDERED: NICOTINE POLACRILEX 2 MG GUM BUC PRN (11:19)
[2018-10-11] MEDS ORDERED: P-EPHED 60MG/TRIPROLIDI 2.5MG TABLET PO PRN (11:19)
[2018-10-11] MEDS ORDERED: MAG HYDROX/AL HYDROX/SIMETH 30 ML UNIT-DOSE CUP PO PRN (11:19)
[2018-10-11] MEDS ORDERED: hydrOXYzine PAMOATE 25 MG CAPSULE (FP) PO PRN (11:19)
[2018-10-11] MEDS ORDERED: PANTOPRAZOLE 40 MG TABLET (FP) PO PRN (11:54)
[2018-10-11] MEDS: chlordiazePOXIDE HCL 25 MG CAPSULE PO PRN (12:54)
[2018-10-11] MEDS: chlordiazePOXIDE HCL 25 MG CAPSULE PO SCH ×2 (17:13→22:19)
[2018-10-11] MEDS ORDERED: MELATONIN 5 MG TABLETS PO PRN (22:00)
[2018-10-11] MEDS: THIAMINE HCL 100 MG TABLET (FP) PO SCH (22:19)
[2018-10-11] MEDS: MENTHOL/PHENOL 1 EACH UD MM PRN (22:22)
[2018-10-12] MEDS: MENTHOL/PHENOL 1 EACH UD MM PRN ×3 (02:57→22:50)
[2018-10-12] MEDS: chlordiazePOXIDE HCL 25 MG CAPSULE PO SCH ×4 (04:07→22:47)
[2018-10-12] MEDS ORDERED: METHADONE HCL 10 MG TABLET ONE (05:54)
[2018-10-12] MEDS ORDERED: METHADONE HCL 5 MG TABLET ONE (05:54)
[2018-10-12] MEDS ORDERED: METHADONE HCL 40 MG DISPERSABLE TABLET PO SCH (06:00)
[2018-10-12] MEDS: guaiFENesin/D-METHORPHAN HB 10 ML UNIT-DOSE CUPS PO PRN (06:05)
[2018-10-12] MEDS: METHADONE 20 MG, METHADONE 5 MG PO SCH (06:05)
--- NOTE | 2018-10-12 07:54 | CONSULT ---
[facility] Psychiatric Consult - Data Date of interview: 10/12/18 Admission source: [facility] Identifying data: This is a 48 years old female, single mother of 11, living with family, unemployed, on PA support, with alcohol and nisotine dependence, reporting alcohol withdrawal symptoms and seeking seeking detox,last detox at [facility] Substance Abuse History: Smoking history: Current every day smoker. Have you smoked in the past 12 months: Yes. Aproximately how many cigarettes per day: 5. Cigars Per Day: 0. Hx Chewing Tobacco Use: No. Initiated information on smoking cessation: Yes. 'Breaking Loose' booklet given: 10/11/18. - Substance & Tx. History. Hx Alcohol Use: Yes. Hx Substance Use: Yes. Substance Use Type : Alcohol, Marijuana. Hx Substance Use Treatment: Yes ([facility] 05/17) Medical History: Pancreatitis history, GERD, Syncope history, Weight loss history, Gastritis, HepC+, Vertigo. Psychiatric History: Patient reports to carry Bipolar Disorder, reports last psychiatric hospitalization onn about 5 years ago at [facility] for safety, reports currently stable on: Trazodone 50mg po qhs. Elavil 50mg po bid. Seroquel 200mg po bid. Depakote 250mg po bid. Denies suicidal, homicidal history Physical/Sexual Abuse/Trauma History: Denies, unclear Additional Comment: Trazodone 50mg po qhs. Elavil 50mg po bid. Seroquel 200mg po bid. Depakote 250mg po bid Mental Status Exam - Mental Status Exam Alert and Oriented to: Place, Person Cognitive Function: Fair Patient Appearance: Unkempt Mood: Anxious, Irritable Affect: Labile Patient Behavior: Impulsive, Talkative, Cooperative Speech Pattern: Excessive Voice Loudness: Normal, Mildly Loud Thought Disorder: Being Controlled Hallucinations: Denies Suicidal Ideation: Denies Homicidal Ideation: Denies Insight/Judgement: Fair Sleep: Difficulty falling asleep Appetite: Weight loss Muscle strength/Tone: Mild Hypertonicity Gait/Station: Normal Additional Comments: Trazodone 50mg po qhs. Elavil 50mg po bid. Seroquel 200mg po bid. Depakote 250mg po bid Psychiatric Findings - Problem List ([place] 1, 2,3) (1) Alcohol dependence with uncomplicated intoxication Current Visit: Yes Status: Acute (2) History of pancreatitis Current Visit: Yes Status: Acute (3) Weight loss Current Visit: Yes Status: Acute (4) Alcohol dependence with uncomplicated withdrawal Current Visit: No Status: Acute (5) Alcohol intoxication Current Visit: No Status: Acute Qualifiers: Complication of substance-induced condition: uncomplicated Qualified Code(s ): F10.920 - Alcohol use, unspecified with intoxication, uncomplicated (6) Alcohol withdrawal Current Visit: No Status: Acute (7) Cannabis dependence Current Visit: No Status: Acute (8) Cannabis hyperemesis syndrome concurrent with and due to cannabis abuse Current Visit: No Status: Acute (9) Elevated liver enzymes Current Visit: No Status: Acute Comment: improving, cont to monitor. (10) Methadone withdrawal Current Visit: No Status: Acute (11) Bipolar disorder Current Visit: No Status: Chronic Comment: As per self-report.Known to [facility] clinic.Prescribed seroquel.Non-adherent to medications. (12) Cannabis dependence, uncomplicated Current Visit: No Status: Chronic (13) Dilated pancreatic duct Current Visit: No Status: Chronic (14) GERD (gastroesophageal reflux disease) Current Visit: No Status: Chronic Qualifiers: Esophagitis presence: without esophagitis Qualified Code(s): K21.9 - Gastro -esophageal reflux disease without esophagitis Comment: dietary precautions, monitor. (15) Hepatitis C Current Visit: No Status: Chronic Qualifiers: Viral hepatitis chronicity: chronic Hepatic coma status: without hepatic coma Qualified Code(s): B18.2 - Chronic viral hepatitis C Comment: encourage etoh cessation and lft monitoring prior to starting meds. as per d/w aviation consultant will offer epclusa (pill burden with mavyret may be difficult for her to manage with her swallowing concerns). advised she will need to avoid ppi during hcv tx. will d/w tx team pending labs results. (16) Nicotine dependence Current Visit: No Status: Chronic Qualifiers: Nicotine product type: cigarettes Substance use status: in withdrawal Qualified Code(s): F17.213 - Nicotine dependence, cigarettes, with withdrawal (17) Opioid dependence on agonist therapy Current Visit: No Status: Chronic Comment: on methadone 30 mg qd. (18) Vertigo Current Visit: No Status: Chronic (19) Alcoholic gastritis without bleeding Current Visit: No Status: Resolved Comment: cont to support etoh cessation efforts and lab monitoring. (20) Dilated bile duct Current Visit: No Status: Resolved - Initial Treatment Plan Initial Treatment Plan: Trazodone 50mg po qhs. Elavil 50mg po bid. Seroquel 200mg po bid. Depakote 250mg po bid
[2018-10-12] MEDS ORDERED: AZITHROMYCIN 250 MG TABLET PO ONE (08:54)
[2018-10-12] MEDS: QUEtiapine FUMARATE 200 MG TABLET PO SCH ×2 (10:18→22:47)
[2018-10-12] MEDS: AMITRIPTYLINE HCL 25 MG TABLET (FP) PO SCH ×2 (10:19→22:47)
[2018-10-12] MEDS: DIVALPROEX SODIUM 250 MG TABLET E.C. PO SCH ×2 (10:19→22:47)
[2018-10-12] MEDS: PRENATAL VITAMINS W/ FOLIC ACID TABLET (FP) PO SCH (10:19)
[2018-10-12 10:42] LABS: HEMATOCRIT 38.6 % (32.4-45.2); HEMOGLOBIN 12.6 GM/dL (10.7-15.3); MCH 33.2 pg (25.7-33.7); MCHC 32.7 g/dl (32.0-36.0); MEAN CELL VOLUME 101.8 fl (80-96); MEAN PLT VOLUME 13.4 fl (7.5-11.1); PLATELET COUNT 98 K/MM3 (134-434); RBC 3.79 M/mm3 (3.60-5.2); RDW 13.7 % (11.6-15.6); WHITE BLOOD COUNT 4.3 K/mm3 (4.0-10.0)
[2018-10-12 11:18] LABS: ALBUMIN 3.7 g/dl (3.4-5.0); ALK PHOS 88 U/L (45-117); ANION GAP 10 MMOL/L (8-16); BILIRUBIN,TOTAL 0.3 mg/dL (0.2-1); BLOOD UREA NITROGEN 9 mg/dL (7-18); CALCIUM 8.5 mg/dL (8.5-10.1); CHLORIDE 108 mmol/L (98-107); CO2 23 mmol/L (21-32); CREATININE 0.8 mg/dL (0.55-1.3); GLUCOSE,RANDOM 93 mg/dL (74-106); POTASSIUM 4.3 mmol/L (3.5-5.1); SGOT/AST 102 U/L (15-37); SGPT/ALT 93 U/L (13-61); SODIUM 141 mmol/L (136-145); TOT PROT 7.5 g/dl (6.4-8.2)
--- NOTE | 2018-10-12 12:05 | PN ---
S CIWA - CIWA Score Nausea/Vomitin-No Nausea/No Vomiting Muscle Tremors: 3 Anxiety: 3 Agitation: 3 Paroxysmal Sweats: 3 Orientation: 0-Oriented Tacttile Disturbances: 0-None Auditory Disturbances: 0-None Visual Disturbances: 0-None Headache: 0-None Present CIWA-Ar Total Score: 12 [facility] Progress Note (SOAP) Subjective: sweats shakes interrupted sleep sore throat agitation Objective: 10/12/18 12:04 Vital Signs Temperature 97.9 F 10/12/18 09:10 Pulse Rate 75 10/12/18 09:10 Respiratory Rate 18 10/12/18 09:10 Blood Pressure 127/76 10/12/18 09:10 O2 Sat by Pulse Oximetry (%) Laboratory Tests 10/12/18 10/12/18 10/12/18 06:00 06:00 06:00 WBC 4.3 RBC 3.79 Hgb 12.6 Hct 38.6 MCV 101.8 H MCH 33.2 MCHC 32.7 RDW 13.7 Plt Count 98 L MPV 13.4 H D Manual Slide Review Platelet Comment No clumping noted Sodium 141 Potassium 4.3 Chloride 108 H Carbon Dioxide 23 Anion Gap 10 BUN 9 Creatinine 0.8 Creat Clearance w eGFR > 60 Random Glucose 93 Calcium 8.5 Total Bilirubin 0.3 AST 102 H ALT 93 H Alkaline Phosphatase 88 Total Protein 7.5 Albumin 3.7 RPR Titer Nonreactive aaox3 ambulating no acute distress Assessment: 10/12/18 12:04 withdrawal sx Plan: continue detox increase fluids zitromax 500mg x 4 days
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
[2018-10-12] MEDS: traZODone HCL 50 MG TABLET (FP) PO SCH (22:47)
[2018-10-12] MEDS: THIAMINE HCL 100 MG TABLET (FP) PO SCH (22:47)
[2018-10-13] MEDS ORDERED: METHADONE HCL 5 MG TABLET ONE (02:57)
[2018-10-13] MEDS ORDERED: METHADONE HCL 10 MG TABLET ONE (02:58)
[2018-10-13] MEDS: METHADONE 20 MG, METHADONE 5 MG PO SCH (06:01)
[2018-10-13] MEDS: chlordiazePOXIDE HCL 25 MG CAPSULE PO SCH ×2 (06:01→10:35)
[2018-10-13] MEDS ORDERED: AZITHROMYCIN 250 MG TABLET PO SCH (10:00)
[2018-10-13] MEDS: PRENATAL VITAMINS W/ FOLIC ACID TABLET (FP) PO SCH (10:35)
[2018-10-13] MEDS: QUEtiapine FUMARATE 200 MG TABLET PO SCH ×2 (10:36→22:23)
[2018-10-13] MEDS: DIVALPROEX SODIUM 250 MG TABLET E.C. PO SCH ×2 (10:36→22:23)
[2018-10-13] MEDS: AMITRIPTYLINE HCL 25 MG TABLET (FP) PO SCH ×2 (10:36→22:23)
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
[2018-10-13] MEDS: chlordiazePOXIDE HCL 25 MG CAPSULE PO PRN (13:01)
[2018-10-13] MEDS: guaiFENesin/D-METHORPHAN HB 10 ML UNIT-DOSE CUPS PO PRN (13:02)
--- NOTE | 2018-10-13 15:57 | PN ---
[facility] Progress Note Note: Pt facial bone xray report reviewed- . Pt informed of nasal fx .
[2018-10-13] MEDS ORDERED: chlordiazePOXIDE 5 MG CAPSULE PO SCH (17:00)
[2018-10-13] MEDS ORDERED: chlordiazePOXIDE 5 MG CAPSULE PO PRN (18:18)
--- NOTE | 2018-10-13 18:20 | PN ---
[facility] Progress Note Note: Patient very sedated. Will adjust Librium orders.
[2018-10-13] MEDS ORDERED: chlordiazePOXIDE HCL 10 MG CAPSULE PO SCH (22:00)
[2018-10-13] MEDS: traZODone HCL 50 MG TABLET (FP) PO SCH (22:23)
[2018-10-13] MEDS: THIAMINE HCL 100 MG TABLET (FP) PO SCH (22:23)
[2018-10-14] MEDS: guaiFENesin/D-METHORPHAN HB 10 ML UNIT-DOSE CUPS PO PRN (02:40)
[2018-10-14] MEDS ORDERED: METHADONE HCL 5 MG TABLET ONE (05:53)
[2018-10-14] MEDS ORDERED: METHADONE HCL 10 MG TABLET ONE (05:54)
[2018-10-14] MEDS: METHADONE 20 MG, METHADONE 5 MG PO SCH (06:16)
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
[2018-10-14 09:46] VITALS: BP 101/69; TEMP 97.7
--- NOTE | 2018-10-14 10:17 | PN ---
[facility] Progress Note (SOAP) Subjective: denies any complaint States she is going home will call [facility] forin patient bed later in the week Objective: 10/14/18 10:15 A & O x 3 Ambulating steadily on unit No acute distress noted Chatting easily and joking with staff Vital Signs Temperature 97.7 F 10/14/18 09:46 Pulse Rate 90 10/14/18 09:46 Respiratory Rate 18 10/14/18 09:46 Blood Pressure 101/69 10/14/18 09:46 O2 Sat by Pulse Oximetry (%) Assessment: 10/14/18 10:16 Detox successfully Plan: for discharge
--- NOTE | 2018-10-14 10:18 | DS ---
[facility] Detox Discharge Summary Admission Date: 10/11/18 Discharge Date: 10/14/18 - History Additional Comments: Pt being discharged home. She declined the rehab bed made available to her. Pt states she will go home and call to get a bed at [facility].she will attend AA meetings till then. Denies any complaints and was not in any distress Declines refill for Gabapentin stating she has a lot. However requesting a " nose spray so I am not clogged up" [place] nasal spray ordered, verbalized her understanding of picking up at [facility]. - Physical Exam Results Vital Signs: Vital Signs Temperature 97.7 F 10/14/18 09:46 Pulse Rate 90 10/14/18 09:46 Respiratory Rate 18 10/14/18 09:46 Blood Pressure 101/69 10/14/18 09:46 O2 Sat by Pulse Oximetry (%) - Medication Discharge Medications: Ambulatory Orders Folic Acid - 1 mg PO DAILY #30 tablet 09/20/18 Pantoprazole Sodium [Protonix -] 40 mg PO DAILY PRN #30 tablet.ec MDD 1 Gabapentin 1 cap PO TID 10/05/18 Quetiapine Fumarate [Seroquel] 1 tab PO BID 10/05/18 Amitriptyline HCl [Elavil -] 50 mg PO BID 10/11/18 Divalproex [Depakote -] 250 mg PO BID #60 tablet.ec 10/12/18 Quetiapine Fumarate [Seroquel -] 200 mg PO BID #60 tablet 10/12/18 traZODone HCL [Desyrel -] 50 mg PO HS #30 tablet MDD 50 10/12/18 traZODone HCL [Trazodone HCl] 1 tab PO HS #30 tablet 10/12/18 Sodium Chloride Nasal [place] [[place] Nasal [place]] 2 spray NS BID #1 spraybtl 10/14/18 - Diagnosis (1) Dehydration Status: Acute (2) Facial trauma Status: Acute (3) Weight loss Status: Acute (4) Alcohol dependence with uncomplicated intoxication Status: Chronic (5) Cannabis dependence, uncomplicated Status: Chronic (6) GERD (gastroesophageal reflux disease) Status: Chronic Qualifiers: Esophagitis presence: without esophagitis Qualified Code(s): K21.9 - Gastro -esophageal reflux disease without esophagitis (7) Hepatitis C Status: Chronic Qualifiers: Viral hepatitis chronicity: chronic Hepatic coma status: without hepatic coma Qualified Code(s): B18.2 - Chronic viral hepatitis C (8) History of pancreatitis Status: Chronic (9) Nicotine dependence Status: Chronic Qualifiers: Nicotine product type: cigarettes Substance use status: uncomplicated Qualified Code(s): F17.210 - Nicotine dependence, cigarettes, uncomplicated - AMA Did Patient Leave Against Medical Advice: No
[2018-10-14 10:31] VITALS: PULSE 90
[2018-10-14] MEDS ORDERED: chlordiazePOXIDE HCL 10 MG CAPSULE PO SCH (17:00)
[2018-10-15] MEDS ORDERED: chlordiazePOXIDE 5 MG CAPSULE PO SCH (22:00)
== END 2018-10-14 09:55 | disposition home or self-care (01) | DRG 773 ==
LOC: YASAS 09:24 → Y6N 11:18
PROC: HZ2ZZZZ Detoxification Services for Substance Abuse Treatment (ICD-10-PCS; principal; 2018-10-11)
DX: F10.230 Alcohol dependence with withdrawal, uncomplicated (principal); F10.220 Alcohol dependence with intoxication, uncomplicated; F11.20 Opioid dependence, uncomplicated; F12.20 Cannabis dependence, uncomplicated; F17.210 Nicotine dependence, cigarettes, uncomplicated; F12.188 Cannabis abuse with other cannabis-induced disorder; F31.9 Bipolar disorder, unspecified; K21.9 Gastro-esophageal reflux disease without esophagitis; B18.2 Chronic viral hepatitis C; M54.5 Low back pain; R00.0 Tachycardia, unspecified; S09.93XA Unspecified injury of face, initial encounter; Y04.2XXA Assault by strike against or bumped into by another person, initial encounter; W07.XXXA Fall from chair, initial encounter; Y93.89 Activity, other specified; Y92.238 Other place in hospital as the place of occurrence of the external cause; Z88.8 Allergy status to other drugs, medicaments and biological substances; Z87.19 Personal history of other diseases of the digestive system
CPT/HCPCS: 36415; 70150-TC-FY; 80053; 80164; 85027; 86593

== ENCOUNTER 2018-11-30 12:14 | Inpatient (IN) | payer OTHER ==
[2018-11-30 12:27] VITALS: BMI 21.3
--- NOTE | 2018-11-30 12:31 | PDOC ---
History of Present Illness - General Chief Complaint: Nausea/Vomiting Stated Complaint: VOMITING Time Seen by Provider: 11/30/18 12:31 - History of Present Illness Initial Comments: 11/30/18 12:59 Ms. Mao is a 48 yo female w/ pmh of Hep C (untreated), andemia, polysubstance abuse (multiple detox admissions), EtOH pancreatitis, GERD, on methadone (last yesterday) who presents for evaluation of 1 day history of 10/ 10 epigastric abdominal pain with 3 episodes of vomiting that woke her up from sleep this morning. Patient also endorses fever and chills. Patient further reports she drank a fifth of vodka last night. The patient denies chest pain, shortness of breath, headache and dizziness. Denies dysuria, frequency, urgency and hematuria. Past History - Past Medical History Allergies/Adverse Reactions: Allergies Allergy/AdvReac Type Severity Reaction Status Date / Time metoclopramide HCl Allergy Severe dystonic Verified 11/30/18 12:23 [From Reglan] reaction prochlorperazine maleate Allergy Severe DYSTONIA Verified 11/30/18 12:23 [From Compazine] haloperidol [From Haldol] Allergy Verified 11/30/18 12:23 mirtazapine [From Remeron] AdvReac Severe Difficulty Verified 11/30/18 12:23 Breathing Home Medications: Ambulatory Orders Pantoprazole Sodium [Protonix -] 40 mg PO DAILY PRN #30 tablet.ec MDD 1 Gabapentin 300 mg PO TID 10/05/18 Amitriptyline HCl [Elavil -] 50 mg PO BID 10/11/18 Divalproex [Depakote -] 250 mg PO BID #60 tablet.ec 10/12/18 Quetiapine Fumarate [Seroquel -] 200 mg PO BID #60 tablet 10/12/18 traZODone HCL [Desyrel -] 50 mg PO HS #30 tablet MDD 50 10/12/18 Sodium Chloride Nasal [place] [[place]al [place]] 2 spray NS BID #1 spraybtl 10/14/18 Folic Acid - 1 mg PO DAILY #30 tablet 11/24/18 Multivitamin,Therapeutic [Thera] 1 each PO DAILY #30 tab 11/24/18 Albuterol Sulfate Inhaler - [Ventolin HFA Inhaler -] 1 - 2 inh PO QID #1 inhaler 11/28/18 Bisacodyl [Bisacodyl -] 1 - 2 tab PO DAILY #30 tablet. 11/28/18 Clotrimazole [Lotrimin 1% Cream -] 1 applic TP BID #1 tube 11/28/18 Anemia: Yes (as a teen, had iron and transfusions) Asthma: Yes (ON MDI) Cancer: No Cardiac Disorders: No CVA: No COPD: No CHF: No Dementia: No Diabetes: No GI Disorders: Yes (several admissions for etoh-related pancreatitis) Disorders: No HTN: No Hypercholesterolemia: No Kidney Stones: No Liver Disease: Yes (hepatitis C, not treated ) Psychiatric Problems: Yes (bipolar) Seizures: No Thyroid Disease: No - Surgical History Abdominal Surgery: No Appendectomy: No Cardiac Surgery: No Cholecystectomy: No Lung Surgery: No Neurologic Surgery: No Orthopedic Surgery: No - Reproductive History (#): 13 Para: 11 PID: No - Immunization History Immunization Up to Date: No - Suicide/Smoking/Psychosocial Hx Smoking History: Current every day smoker Have you smoked in the past 12 months: Yes Number of Cigarettes Smoked Daily: 5 Cigars Per Day: 0 Information on smoking cessation initiated: No 'Breaking Loose' booklet given: 10/11/18 Hx Alcohol Use: Yes Drug/Substance Use Hx: Yes Substance Use Type: Alcohol, Marijuana Hx Substance Use Treatment: Yes ([facility] 05/17) Review of Systems - Review of Systems Comments:: 11/30/18 13:03 GENERAL/CONSTITUTIONAL: +Fever/chills as describec. No weakness. HEAD, EYES, EARS, NOSE AND THROAT: No change in vision. No ear pain or discharge. No sore throat. CARDIOVASCULAR: No chest pain or shortness of breath RESPIRATORY: No cough, wheezing, or hemoptysis. GASTROINTESTINAL: No nausea, vomiting, diarrhea or constipation. GENITOURINARY: No dysuria, frequency, or change in urination. MUSCULOSKELETAL: No joint or muscle swelling or pain. No neck or back pain. SKIN: No rash NEUROLOGIC: No headache, vertigo, loss of consciousness, or change in strength/ sensation. ENDOCRINE: No increased thirst. No abnormal weight change HEMATOLOGIC/LYMPHATIC: No anemia, easy bleeding, or history of blood clots. ALLERGIC/IMMUNOLOGIC: No hives or skin allergy. *Physical Exam - Vital Signs Last Vital Signs Temp Pulse Resp BP Pulse Ox 97.8 F 78 20 155/116 H 98 11/30/18 12:25 11/30/18 12:25 11/30/18 12:25 11/30/18 12:25 11/30/18 12:25 - Physical Exam Comments: 11/30/18 18:44 GENERAL: +Actively vomiting. Awake, alert, and fully oriented HEAD: No signs of trauma, normocephalic, atraumatic EYES: PERRLA, EOMI, sclera anicteric, conjunctiva clear ENT: +Mucosa dry. Auricles normal inspection, hearing grossly normal, nares patent, oropharynx clear without exudates. NECK: Normal ROM, supple, no lymphadenopathy, JVD, or masses LUNGS: No distress, speaks full sentences, clear to auscultation bilaterally HEART: Regular rate and rhythm, normal S1 and S2, no murmurs, rubs or gallops, peripheral pulses normal and equal bilaterally. ABDOMEN: +Diffuse abdominal discomfort with palpation. Soft normoactive bowel sounds. No guarding, no rebound. No masses EXTREMITIES: Normal inspection, Normal range of motion, no edema. No clubbing or cyanosis. NEUROLOGICAL: Cranial nerves II through XII grossly intact. Normal speech, normal gait, no focal sensorimotor deficits SKIN: Warm, Dry, normal turgor, no rashes or lesions noted. Moderate Sedation - Procedure Monitoring Vital Signs: Procedure Monitoring Vital Signs Temperature 97.8 F 11/30/18 12:25 Pulse Rate 78 11/30/18 12:25 Respiratory Rate 20 11/30/18 12:25 Blood Pressure 155/116 H 11/30/18 12:25 O2 Sat by Pulse Oximetry (%) 98 11/30/18 12:25 ED Treatment Course - LABORATORY CBC & Chemistry Diagram: 11/30/18 13:45 11/30/18 13:18 Medical Decision Making - Medical Decision Making 11/30/18 17:29 Ms. Mao is a 48 yo female w/ pmh as described who presents for evaluation of 1 day history of nausea and vomiting as described. Patient evaluated using labs as below as well as 2 rounds of IV zofran with 2L NS for hydration. Patient continues to vomit. Given patient's allergies unable to give other anti-emetics at this time. Will admit patient to hospitalist team for intractable nausea/ vomiting. Laboratory Results - last 24 hr 11/30/18 11/30/18 13:18 13:45 WBC 7.0 RBC 4.12 Hgb 14.7 Hct 41.0 MCV 99.7 H MCH 35.6 H MCHC 35.7 RDW 12.8 Plt Count 136 D MPV 10.5 D Absolute Neuts (auto) 5.7 Neutrophils % 81.8 Lymphocytes % 13.6 Monocytes % 3.9 Eosinophils % 0.1 Basophils % 0.6 Nucleated RBC % 0 Sodium 137 Potassium 3.6 Chloride 102 Carbon Dioxide 24 Anion Gap 11 BUN 13 Creatinine 0.7 Creat Clearance w eGFR > 60 Random Glucose 136 H Calcium 8.7 Total Bilirubin 0.8 AST 85 H ALT 67 H Alkaline Phosphatase 108 Total Protein 8.6 H Albumin 4.3 Lipase 412 H *DC/Admit/Observation/Transfer Diagnosis at time of Disposition: Nausea & vomiting Qualifiers: Vomiting type: unspecified Vomiting Intractability: intractable Qualified Code( s): R11.2 - Nausea with vomiting, unspecified - Discharge Dispostion Decision to Admit order: Yes - Referrals - Patient Instructions - Post Discharge Activity
--- NOTE | 2018-11-30 12:43 | PDOC ---
Attending Attestation - HPI HPI: 11/30/18 13:53 The patient is a 48 year old female with a significant past medical history of hepatitis C, GERD (on pepcid), alcohol dependence, who presents to the emergency department today complaining of vomiting and epigastric pain. Patient states she woke up this around 3am this morning with abdominal pain and has experienced about 3-4 vomiting episodes, with associated chills and achiness. She reports drinking ? of vodka before bed last night. The patient denies chest pain, shortness of breath, headache and dizziness. Denies fever, diarrhea and constipation. Denies dysuria, frequency, urgency and hematuria. Allergies: metoclopramide HCl, prochlorperazine, haloperidol, mirtazapine. Social history: Alcohol dependence, tobacco and marijuana use. PCP: Dr. Goins ([phone]) <Melia Yadav - Last Filed: 11/30/18 13:53> - Resident Resident Name: Vikas Delgado - ED Attending Attestation I have performed the following: I have examined & evaluated the patient, The case was reviewed & discussed with the resident, I agree w/resident's findings & plan, Exceptions are as noted - Physicial Exam PE: 11/30/18 16:24 GENERAL: The patient is in no acute distress, pt appears uncomfortable. HEAD: Normal EYES: PERRLA, EOMI, sclera anicteric ENT: Ears normal, nares patent, oropharynx clear without exudates. Dry mucous membranes. NECK: Normal range of motion, supple LUNGS: Breath sounds equal, clear to auscultation bilaterally. . HEART:Regular rate and rhythm, normal S1 and S2 without murmur, rub or gallop. ABDOMEN: Soft, epigastric tenderness to palpation EXTREMITIES: Normal range of motion, no edema. NEUROLOGICAL: Cranial nerves II through XII grossly intact. Normal speech. No focal neurological deficits. MUSCULOSKELETAL: Back non-tender to palpation SKIN: Warm, Dry, normal turgor, no rashes or lesions noted. - Medical Decision Making 11/30/18 15:10 Laboratory Tests 11/30/18 11/30/18 13:18 13:45 WBC 7.0 Hgb 14.7 Hct 41.0 Plt Count 136 D BUN 13 Creatinine 0.7 AST 85 H ALT 67 H Lipase 412 H 11/30/18 16:26 Pt with intractable vomiting Labs reveal elevated lipase Pt has previously had alcoholic pancreatitis Will attempt to give more zofran and IVF If pt continues to vomit, will place on observation Consider detox <Wendy Hummel - Last Filed: 11/30/18 16:27> Attestations - Attestations 11/30/18 13:54 Documentation prepared by Melia Yadav, acting as chief medical physicist for Wendy Hummel MD. <Melia Yadav - Last Filed: 11/30/18 13:53>
[2018-11-30] MEDS ORDERED: ONDANSETRON 4 MG/2 ML VIAL IVPUSH ONE ×2 (13:18→16:11)
[2018-11-30] MEDS ORDERED: SODIUM CHLORIDE 1,000 ML IV STA ×2 (13:18→16:11)
[2018-11-30 13:58] LABS: BASO % 0.6 % (0-2.0); EOS % 0.1 % (0-4.5); HEMOGLOBIN 14.7 GM/dL (10.7-15.3); LYMPH % 13.6 % (8-40); MCH 35.6 pg (25.7-33.7); MCHC 35.7 g/dl (32.0-36.0); MEAN CELL VOLUME 99.7 fl (80-96); MONO % 3.9 % (3.8-10.2); NEUT % 81.8 % (42.8-82.8); RBC 4.12 M/mm3 (3.60-5.2); RDW 12.8 % (11.6-15.6)
[2018-11-30] MEDS ORDERED: ONDANSETRON 4 MG/2 ML VIAL ONE ×2 (14:03→16:28)
[2018-11-30 14:35] LABS: MEAN PLT VOLUME 10.5 fl (7.5-11.1); PLATELET COUNT 136 K/MM3 (134-434)
[2018-11-30 14:51] LABS: ALBUMIN 4.3 g/dl (3.4-5.0); ALK PHOS 108 U/L (45-117); ANION GAP 11 MMOL/L (8-16); BILIRUBIN,TOTAL 0.8 mg/dL (0.2-1); BLOOD UREA NITROGEN 13 mg/dL (7-18); CALCIUM 8.7 mg/dL (8.5-10.1); CHLORIDE 102 mmol/L (98-107); CO2 24 mmol/L (21-32); CREATININE 0.7 mg/dL (0.55-1.3); GLUCOSE,RANDOM 136 mg/dL (74-106); LIPASE 412 U/L (73-393); POTASSIUM 3.6 mmol/L (3.5-5.1); SGPT/ALT 67 U/L (13-61); SODIUM 137 mmol/L (136-145); TOT PROT 8.6 g/dl (6.4-8.2)
[2018-11-30 14:52] LABS: SGOT/AST 85 U/L (15-37)
[2018-11-30] MEDS ORDERED: FOLIC ACID INJECTION - 1 MG, THIAMINE HCL 100 MG, MULTIVIT INJECTION ADULT 10 ML in SOD... IVPB ONE ×2 (18:26→19:30)
--- NOTE | 2018-11-30 18:38 | HP ---
CHIEF COMPLAINT: n/v HISTORY OF PRESENT ILLNESS: Patient is a 48 yo F with a PMHx of Hep C (untreated ), anemia, polysubstance abuse (IV drugs,multiple detox admissions), EtOh pancreatitis, GERD, on methadone (last yesterday), presented today with 10/10, epigastric, abdominal pain radiating to the back with multiple episodes of bilious vomiting that started this morning. Patient said she drank a 5th of vodka last night. She also mentions having 3 episodes of watery diarrhea that started this morning. She also says she smokes marijuana daily. She also endorses chills. Patient was admitted in September for similar symptoms but she ended up leaving AMA. Patient denies sob, dizziness, chest pain, fevers, urinary changes, recent IV drug use. ER course was notable for: (1) 2L NS Bolus (2) Zofran 4mg x 2 in ED Recent Travel: denies PAST MEDICAL HISTORY: per HPI PAST SURGICAL HISTORY: n/a Social History: Smoking: daily Alcohol: daily vodka Drugs: marijuana daily. says she quit IV drug use 4 years ago Family History: Allergies metoclopramide HCl [From Reglan] Allergy (Severe, Verified 11/30/18 12:23) dystonic reaction dystonic reaction prochlorperazine maleate [From Compazine] Allergy (Severe, Verified 11/30/18 12: 23) DYSTONIA haloperidol [From Haldol] Allergy (Verified 11/30/18 12:23) mirtazapine [From Remeron] Adverse Reaction (Severe, Verified 11/30/18 12:23) Difficulty Breathing HOME MEDICATIONS: Home Medications Medication Instructions Recorded Pantoprazole Sodium [Protonix -] 40 mg PO DAILY PRN #30 tablet.ec 09/20/18 MDD 1 Gabapentin 300 mg PO TID 10/05/18 Amitriptyline HCl [Elavil -] 50 mg PO BID 10/11/18 Divalproex [Depakote -] 250 mg PO BID #60 tablet.ec 10/12/18 Quetiapine Fumarate [Seroquel -] 200 mg PO BID #60 tablet 10/12/18 traZODone HCL [Desyrel -] 50 mg PO HS #30 tablet MDD 50 10/12/18 Sodium Chloride Nasal [place] [[place] 2 spray NS BID #1 spraybtl 10/14/18 [place] Nasal [place]] Folic Acid - 1 mg PO DAILY #30 tablet 11/24/18 Multivitamin,Therapeutic [Thera] 1 each PO DAILY #30 tab 11/24/18 Albuterol Sulfate Inhaler - 1 - 2 inh PO QID #1 inhaler 11/28/18 [Ventolin HFA Inhaler -] Bisacodyl [Bisacodyl -] 1 - 2 tab PO DAILY #30 tablet. 11/28/18 Clotrimazole [Lotrimin 1% Cream -] 1 applic TP BID #1 tube 11/28/18 REVIEW OF SYSTEMS CONSTITUTIONAL: chills Absent: fever, diaphoresis, generalized weakness, malaise, loss of appetite, weight change HEENT: Absent: rhinorrhea, nasal congestion, throat pain, throat swelling, difficulty swallowing, mouth swelling, ear pain, eye pain, visual changes CARDIOVASCULAR: Absent: chest pain, syncope, palpitations, irregular heart rate, lightheadedness , peripheral edema RESPIRATORY: Absent: cough, shortness of breath, dyspnea with exertion, orthopnea, wheezing, stridor, hemoptysis GASTROINTESTINAL: abd pain, nausea, vomiting, diarrhea Absent: abdominal distension, nausea, constipation, melena, hematochezia GENITOURINARY: Absent: dysuria, frequency, urgency, hesitancy, hematuria, flank pain, genital pain MUSCULOSKELETAL: Absent: myalgia, arthralgia, joint swelling, back pain, neck pain SKIN: Absent: rash, itching, pallor HEMATOLOGIC/IMMUNOLOGIC: Absent: easy bleeding, easy bruising, lymphadenopathy, frequent infections ENDOCRINE: Absent: unexplained weight gain, unexplained weight loss, heat intolerance, cold intolerance NEUROLOGIC: Absent: headache, focal weakness or paresthesias, dizziness, unsteady gait, seizure, mental status changes, bladder or bowel incontinence PSYCHIATRIC: Absent: anxiety, depression, suicidal or homicidal ideation, hallucinations. PHYSICAL EXAMINATION Vital Signs - 24 hr 11/30/18 12:25 Temperature 97.8 F Pulse Rate 78 Respiratory 20 Rate Blood Pressure 155/116 H O2 Sat by Pulse 98 Oximetry (%) GENERAL: vomiting, a/o x 3 HEAD: Normal with no signs of trauma. EYES: Pupils equal, round and reactive to light, extraocular movements intact, sclera anicteric EARS, NOSE, THROAT: oropharynx clear without exudates. dry mucous membranes NECK: supple without lymphadenopathy, JVD, or masses. LUNGS: Breath sounds equal, clear to auscultation bilaterally. No wheezes, and no crackles. HEART: Regular rate and rhythm, normal S1 and S2 without murmur, rub or gallop. ABDOMEN: +Bs, diffuse tenderness, no guarding, no rebound LOWER EXTREMITIES: 2+ pulses, No calf tenderness. No peripheral edema. NEUROLOGICAL: Cranial nerves II-XII intact. Laboratory Results - last 24 hr 11/30/18 11/30/18 13:18 13:45 WBC 7.0 RBC 4.12 Hgb 14.7 Hct 41.0 MCV 99.7 H MCH 35.6 H MCHC 35.7 RDW 12.8 Plt Count 136 D MPV 10.5 D Absolute Neuts (auto) 5.7 Neutrophils % 81.8 Lymphocytes % 13.6 Monocytes % 3.9 Eosinophils % 0.1 Basophils % 0.6 Nucleated RBC % 0 Sodium 137 Potassium 3.6 Chloride 102 Carbon Dioxide 24 Anion Gap 11 BUN 13 Creatinine 0.7 Creat Clearance w eGFR > 60 Random Glucose 136 H Calcium 8.7 Total Bilirubin 0.8 AST 85 H ALT 67 H Alkaline Phosphatase 108 Total Protein 8.6 H Albumin 4.3 Lipase 412 H ASSESSMENT/PLAN: 48 yo F with a PMHx of Hep C (untreated), anemia, polysubstance abuse (IV drugs, multiple detox admissions), EtOh pancreatitis, GERD, on methadone (last yesterday), presented with abdominal pain, nausea and vomiting. #Intractable abd pain/nausea/vomiting -2/2 to possible cyclic vomiting syndrome from marijuana use vs Gastritis vs excessive alcohol use -IV fluids -QTC 510, allergic to reglan and compazine -Give Benadryl for nausea -lipase 412, AM lipase -clear liquid diet -protonix iv daily -Thiamine -folate -FU abd u/s -clear liquid diet #Elevated Transaminases -2/2Hep C +/- Alcoholic Hepatitis -AST 85, ALT 67 -Abdominal US #Polysubstance abuse (alcohol) -ativan 2mg IV PRN for CIWA > 8 -Last drink of alcohol yesterday. -follow Utox -banana bag #Depression -depakote level -cont depakote once level comes back #FEN -IV fluids NS @ 125 -monitor -clear liquids #Dvt -lovenox 40 sq Visit type - Emergency Visit Emergency Visit: Yes ED Registration Date: 11/30/18 Care time: The patient presented to the Emergency Department on the above date and was hospitalized for further evaluation of their emergent condition. - New Patient This patient is new to me today: Yes Date on this admission: 12/01/18 - Critical Care Critical Care patient: No
[2018-11-30] MEDS ORDERED: PANTOPRAZOLE SODIUM 40 MG VIAL ONE ×2 (18:57→21:57)
--- NOTE | 2018-11-30 19:11 | PN ---
Teaching Attending Note Name of Resident: Gurmeet Lange ATTENDING PHYSICIAN STATEMENT I saw and evaluated the patient. I reviewed the resident's note and discussed the case with the resident. I agree with the resident's findings and plan as documented. SUBJECTIVE: 48 year female with history of polysubstance abuse (Alcohol, Nicotine, prior heroin user on Methodone), Hx of Pancreatitis, Hep C (untreated) , GERD, Depression/Anxiety, currently presents with 1 day history of abdominal pain, nausea, vomiting - non-bloody, non-bilious. OBJECTIVE: Afebrile, Hemodynamically Stable. Last Vital Signs Temp Pulse Resp BP Pulse Ox 97.8 F 78 20 155/116 H 98 11/30/18 12:25 11/30/18 12:25 11/30/18 12:25 11/30/18 12:25 11/30/18 12:25 HEENT - Normocephalic. Heart - S1, S2, RRR Lungs - clear to auscultations Abdomen - soft, mild generalized tenderness, worse in epigastrum. Bowel Sounds normal Extremities - no edema. No calf tenderness. Neuro - AAO x 3. Tone/Power normal all 4 extremities. Laboratory Results - last 24 hr 11/30/18 11/30/18 13:18 13:45 WBC 7.0 RBC 4.12 Hgb 14.7 Hct 41.0 MCV 99.7 H MCH 35.6 H MCHC 35.7 RDW 12.8 Plt Count 136 D MPV 10.5 D Absolute Neuts (auto) 5.7 Neutrophils % 81.8 Lymphocytes % 13.6 Monocytes % 3.9 Eosinophils % 0.1 Basophils % 0.6 Nucleated RBC % 0 Sodium 137 Potassium 3.6 Chloride 102 Carbon Dioxide 24 Anion Gap 11 BUN 13 Creatinine 0.7 Creat Clearance w eGFR > 60 Random Glucose 136 H Calcium 8.7 Total Bilirubin 0.8 AST 85 H ALT 67 H Alkaline Phosphatase 108 Total Protein 8.6 H Albumin 4.3 Lipase 412 H Current Medications Generic Name Dose Route Start Last Admin Trade Name Freq PRN Reason Stop Dose Admin Cyanocobalamin 100 mcg 12/01/18 10:00 Vitamin B12 - PO DAILY [facility] Enoxaparin Sodium 40 mg 12/01/18 10:00 Lovenox - SQ DAILY GONZALEZ Folic Acid 1 mg 12/01/18 06:00 Folic Acid - PO 12/01/18 06:01 ONCE ONE Sodium Chloride 1,000 mls @ 125 mls/hr 11/30/18 18:30 Normal Saline - IV ASDIR [facility] Folic Acid 1 mg/ Thiamine HCl 1,000 mls @ 125 mls/hr 11/30/18 18:26 100 mg/ Multivitamins/Minerals IVPB 12/01/18 02:25 10 ml/ Sodium Chloride ONCE ONE Lorazepam 2 mg 11/30/18 18:47 Ativan Injection - IVPUSH Q6H PRN WITHDRAWAL(CONT SUBST) Pantoprazole Sodium 40 mg 11/30/18 18:21 Protonix Iv IVPUSH DAILY [facility] Home Medications Medication Instructions Recorded Pantoprazole Sodium [Protonix -] 40 mg PO DAILY PRN #30 tablet.ec 09/20/18 MDD 1 Gabapentin 300 mg PO TID 10/05/18 Amitriptyline HCl [Elavil -] 50 mg PO BID 10/11/18 Divalproex [Depakote -] 250 mg PO BID #60 tablet.ec 10/12/18 Quetiapine Fumarate [Seroquel -] 200 mg PO BID #60 tablet 10/12/18 traZODone HCL [Desyrel -] 50 mg PO HS #30 tablet MDD 50 10/12/18 Sodium Chloride Nasal [place] [[place] 2 spray NS BID #1 spraybtl 10/14/18 [place] Nasal [place]] Folic Acid - 1 mg PO DAILY #30 tablet 11/24/18 Multivitamin,Therapeutic [Thera] 1 each PO DAILY #30 tab 11/24/18 Albuterol Sulfate Inhaler - 1 - 2 inh PO QID #1 inhaler 11/28/18 [Ventolin HFA Inhaler -] Bisacodyl [Bisacodyl -] 1 - 2 tab PO DAILY #30 tablet. 11/28/18 Clotrimazole [Lotrimin 1% Cream -] 1 applic TP BID #1 tube 11/28/18 ASSESSMENT AND PLAN: 48 year female with history of polysubstance abuse (Alcohol, Nicotine, prior heroin user on Methodone), Hx of Pancreatitis, Hep C (untreated), GERD, Depression/Anxiety, currently presents with 1 day history of abdominal pain, nausea, vomiting - non-bloody, non-bilious. 1. Intractable Nausea/vomiting, possible cyclic vomiting syndrome secondary to MJ use versus Gastritis. Urine toxicology requested. Lipase 412, will repeat in AM (history of Pancreatitis, likely alcohol induced) Mild epigastric tenderness - no guarding/rebound, normal bowel sounds. Patient has had several CT scans in past, will hold off for now. NPO, IV fluids, anti-emetic (allergic to reglan and composine, QTc 511, will give Ativan) Protonix IV 2. Elevated Transaminases - sec to Hep C +/- Alcoholic Hepatitis. AST 85, ALT 67 Abdominal US requested. 3. History of Polysubstance Abuse - Alcohol, Cannabis, prior Heroin user - on Methadone. Last drink of alcohol yesterday. Utox requested. Drinks a fifth of vodka daily with history of withdrawal. Will maintain on Ativan prn as per HUANG Moya Bag MVI, Thiamine, Folate 4. Depression/Anxiety - appears stable, no psychosis - Continue Divalproex, Amitriptyline, Quetiapine, Trazodone 5. GERD - Protonix IV 6. Smoker - counselled and prescribed nicotine patch. DVT Px - Lovenox SQ
[2018-11-30] MEDS ORDERED: LORazepam 2 MG/ML SDV VIAL IVPUSH STA (19:22)
[2018-11-30] MEDS ORDERED: LORazepam 2 MG/ML SDV VIAL ONE (21:56)
[2018-11-30] MEDS ORDERED: diphenhydrAMINE HCL 25 MG CAPSULE (FP) PO ONE (21:56)
[2018-11-30] MEDS: SODIUM CHLORIDE 1,000 ML IV SCH (22:26)
[2018-11-30] MEDS: PANTOPRAZOLE SODIUM 40 MG VIAL IVPUSH SCH (22:26)
[2018-12-01] MEDS: SODIUM CHLORIDE 1,000 ML IV SCH ×3 (01:16→20:10)
[2018-12-01] MEDS ORDERED: FOLIC ACID 1 MG TABLET (FP) PO ONE (06:00)
[2018-12-01] MEDS: LORazepam 2 MG/ML SDV VIAL IVPUSH PRN ×2 (07:34→22:13)
[2018-12-01] MEDS ORDERED: METHADONE HCL 10 MG TABLET PO SCH (08:30)
[2018-12-01] MEDS ORDERED: METHADONE HCL 10 MG TABLET ONE (09:02)
[2018-12-01] MEDS ORDERED: METHADONE HCL 5 MG TABLET ONE (09:02)
[2018-12-01] MEDS ORDERED: PT OWN MED DRAWER 7, Y5N ONE ×2 (09:03→10:35)
[2018-12-01] MEDS: METHADONE 20 MG, METHADONE 5 MG PO SCH (09:06)
[2018-12-01] MEDS: PANTOPRAZOLE SODIUM 40 MG VIAL IVPUSH SCH (09:07)
[2018-12-01 09:28] LABS: BASO % 0.2 % (0-2.0); HEMATOCRIT 41.4 % (32.4-45.2); HEMOGLOBIN 14.5 GM/dL (10.7-15.3); LYMPH % 11.9 % (8-40); MCH 35.3 pg (25.7-33.7); MEAN CELL VOLUME 100.8 fl (80-96); MEAN PLT VOLUME 10.5 fl (7.5-11.1); MONO % 9.1 % (3.8-10.2); NEUT % 78.8 % (42.8-82.8); PLATELET COUNT 129 K/MM3 (134-434); RDW 12.9 % (11.6-15.6); WHITE BLOOD COUNT 8.9 K/mm3 (4.0-10.0)
[2018-12-01 09:48] LABS: URINE APPEARANCE CLEAR; URINE BILIRUBIN NEGATIVE (<2.0 mg/dL); URINE COLOR LTYELLOW; URINE GLUCOSE (UA) NEGATIVE (NEGATIVE); URINE KETONE 1+ (NEGATIVE); URINE LEUK ESTERASE NEGATIVE (NEGATIVE); URINE NITRITE NEGATIVE (NEGATIVE); URINE PROTEIN 1+ (NEGATIVE); URINE UROBILINOGEN NEGATIVE mg/dL (0.2-1.0)
[2018-12-01 09:53] LABS: EPI CELLS RARE /HPF (FEW); URINE MUCUS RARE
[2018-12-01] MEDS ORDERED: ENOXAPARIN NA (PORCINE) 40 MG/0.4 ML DISP.SYRIN SQ SCH (10:00)
[2018-12-01] MEDS ORDERED: THIAMINE HCL 100 MG TABLET (FP) PO SCH (10:00)
[2018-12-01] MEDS ORDERED: CYANOCOBALAMIN (VITAMIN B-12) 100 MCG TABLET PO SCH (10:00)
[2018-12-01] MEDS ORDERED: FOLIC ACID 1 MG TABLET (FP) PO SCH (10:00)
[2018-12-01 10:06] LABS: ALK PHOS 100 U/L (45-117); ANION GAP 8 MMOL/L (8-16); BILIRUBIN,TOTAL 1.1 mg/dL (0.2-1); BLOOD UREA NITROGEN 11 mg/dL (7-18); CALCIUM 8.7 mg/dL (8.5-10.1); CHLORIDE 100 mmol/L (98-107); CO2 25 mmol/L (21-32); CREATININE 0.7 mg/dL (0.55-1.3); GLUCOSE,RANDOM 125 mg/dL (74-106); LIPASE 761 U/L (73-393); PHOSPHOROUS 2.3 mg/dL (2.5-4.9); POTASSIUM 4.4 mmol/L (3.5-5.1); SGOT/AST 53 U/L (15-37); SGPT/ALT 54 U/L (13-61); SODIUM 133 mmol/L (136-145); TOT PROT 8.3 g/dl (6.4-8.2)
[2018-12-01] MEDS: VALPROATE SODIUM 500 MG/5 ML VIAL IVPB SCH ×2 (10:27→22:13)
--- NOTE | 2018-12-01 13:25 | CON.GI ---
Consult Consult Specialty:: GI Referred by:: Hospitalist Service Reason for Consultation:: Abdominal pain and dilated biliary tract - History of Present Illness Chief Complaint: Upper abdominal pain History of Present Illness: 48F admitted for evaluation of epigastric pain and vomiting. She drank 1/5 of Vodka and juice last night and abuses alcohol. I was asked to evaluate for dilated CBD. In review of the [facility] system, she has had the followin10/17/15: non contrast CT scan of A/P: unrevealing however a subsequent CT scan from 10/08/[address] scan stating that a mild CBD dilation was also present on this study 01/03/16: Non-contrast CT scan of the A/P: dilation of extrahepatic dusct 09/13/16: Abd US: fatty liver, no stones, no ductal dilatation 10/08/16: Abd US: birderline dilatation of pancreatic duct 01/02/17: CT scan of A/P with PO contrast: unrevealing 07/17/17: Abd US: Dilated CBD and PD (MRCP recommended) 07/17/17: MRCP 9m,m CBD, mildly prominent PD @ 2.4mm 12/03/17: CT scan of the abdomen and pelvis w/o contrast: fatty liver, 7mm CBD 02/01/18: Abd US: 1.2cm CBD 07/19/18: Contrast CT of the A/P: Mildly dilated CBD 08/13/18: MRCP: 9mm CBD, no gross stones, non dilated pancreatic duct, CBD 9mm with smooth tapering. CBD at level of ampulla not visualized Currently, she complains of persistent epigastric pain and nausea. She described diarrhea prior to admission but there has been none since admission. She refuses further MRI studies. She has hepatitis C and is preparing to be treated at the [facility] as an outpatient. It appears as though she has had fluctuating elevations in ALP in the past as well as a chronic transaminitis. Her H&P lists HIV as a medical problem however she denies this diagnosis. - History Source History Provided By: Patient, Medical Record - Past Medical History Gastrointestinal: Yes: Gastritis, Pancreatitis (? chronic pancreatitis) Hepatobiliary: Yes: Hepatitis C (Untreated) ...LMP: 10/04/18 ...: No Infectious Disease: Yes: HIV Psych: Yes: Addictions (Alcohol, Marijuana), Bipolar - Past Surgical History Past Surgical History: Yes: Additional Surgical History: I&D of right leg abscess in childhood - Alcohol/Substance Use Hx Alcohol Use: Yes (VODKA DAILY) Number of Drinks Daily: 4 (4 pints a day) History of Substance Use: reports: Heroin - Smoking History Smoking history: Current every day smoker Have you smoked in the past 12 months: Yes Aproximately how many cigarettes per day: 5 - Social History Usual Living Arrangement: With Significant Other (Single) ADL: Independent Occupation: Unemployed Place of : [facility] History of Recent Travel: No Home Medications - Allergies Allergies/Adverse Reactions: Allergies Allergy/AdvReac Type Severity Reaction Status Date / Time metoclopramide HCl Allergy Severe dystonic Verified 11/30/18 12:23 [From Reglan] reaction prochlorperazine maleate Allergy Severe DYSTONIA Verified 11/30/18 12:23 [From Compazine] haloperidol [From Haldol] Allergy Verified 11/30/18 12:23 mirtazapine [From Remeron] AdvReac Severe Difficulty Verified 11/30/18 12:23 Breathing - Home Medications Home Medications: Ambulatory Orders Pantoprazole Sodium [Protonix -] 40 mg PO DAILY PRN #30 tablet.ec MDD 1 Gabapentin 300 mg PO TID 10/05/18 Amitriptyline HCl [Elavil -] 50 mg PO BID 10/11/18 Divalproex [Depakote -] 250 mg PO BID #60 tablet.ec 10/12/18 Quetiapine Fumarate [Seroquel -] 200 mg PO BID #60 tablet 10/12/18 traZODone HCL [Desyrel -] 50 mg PO HS #30 tablet MDD 50 10/12/18 Sodium Chloride Nasal [place] [[place]] 2 spray NS BID #1 spraybtl 10/14/18 Folic Acid - 1 mg PO DAILY #30 tablet 11/24/18 Multivitamin,Therapeutic [Thera] 1 each PO DAILY #30 tab 11/24/18 Albuterol Sulfate Inhaler - [Ventolin HFA Inhaler -] 1 - 2 inh PO QID #1 inhaler 11/28/18 Bisacodyl [Bisacodyl -] 1 - 2 tab PO DAILY #30 tablet. 11/28/18 Clotrimazole [Lotrimin 1% Cream -] 1 applic TP BID #1 tube 11/28/18 Divalproex Sodium [Depakote] 250 mg PO BID 12/01/18 Family Disease History - Family Disease History Family Disease History: Diabetes: Grandparent (mgm - dm, htn), Other: Father ( : CVA / alcoholic liver disease), Mother (alive, well), Brother (5 - 1 with AIDS), Sister (4 - 1 with THROAT CA), Son (4), Daughter ( 7) Other Family History: No family history of colorectal cancer or other GI malignancy Review of Systems - Review of Systems Constitutional: reports: Loss of Appetite, Unintentional Wgt. Loss, Weakness. denies: Chills Cardiovascular: denies: Chest Pain Respiratory: denies: Cough, SOB Gastrointestinal: reports: Abdominal Pain, Diarrhea, Vomiting. denies: Constipation, Melena, Rectal Bleeding, Vomiting Blood Physical Exam-GI Vital Signs: Vital Signs Temperature 99.6 F 12/01/18 10:00 Pulse Rate 94 H 12/01/18 10:00 Respiratory Rate 20 12/01/18 10:00 Blood Pressure 176/114 H 12/01/18 10:00 O2 Sat by Pulse Oximetry (%) 95 12/01/18 09:00 Constitutional: Yes: Calm Eyes: No: Sclera Icterus Cardiovascular: Yes: Tachycardia (regular rhythm) Respiratory: Yes: CTA Bilaterally Gastrointestinal Inspection: No: Distention ...Auscultate: Yes: Normoactive Bowel Sounds ...Palpate: Yes: Tenderness (TTP mid abdomen / epigastrium) ...Percussion: No: Tympanitic Edema: No (No LE edema) Neurological: Yes: Alert Labs: CBC, BMP 12/01/18 08:30 12/01/18 08:30 Laboratory Tests 11/30/18 12/01/18 13:18 08:30 Lipase 412 H 761 H Problem List - Problems (1) Abdominal pain Assessment/Plan: Upper abdominal pain. Drank significant amount of alcohol prior to admission: ? Mild acute pancreatitis. Also with chronically dilated biliary tract. ? choledochal cyst, ? distal CBD strcture Also with abnormal LFTs: suspect chronic liver disease component. with fluctuating ALP, biliary tract pathology would need to be considered as well Advise: NPO IV Hydration: NS @ 150cc/hr CT scan of the abdomen with IV contrast only with pancreatic protocol Advised the need for complete abstinence from alcohol and tobacco use Ms. Mao refuses further MRI imaging studies. For further evaluation of biliary tract, prior to committing to ERCP, EUS would be a less invasive approach to evaluate papilla / diatal CBD and pancreatic parenchyma. If symptoms persist, consider transfer to [facility] to arrange EUS. Follow-up as outpatient at the [facility] for continued evaluation for Hep C therapy Code(s): R10.9 - UNSPECIFIED ABDOMINAL PAIN
--- NOTE | 2018-12-01 14:59 | PN ---
Teaching Attending Note Name of Resident: Won Kowalski ATTENDING PHYSICIAN STATEMENT I saw and evaluated the patient. I reviewed the resident's note and discussed the case with the resident. I agree with the resident's findings and plan as documented. SUBJECTIVE: Still has abdominal discomfort but less nausea/vomiting. Fever + OBJECTIVE: Afebrile, Hemodynamically Stable. Last Vital Signs Temp Pulse Resp BP Pulse Ox 99.1 F 93 H 20 135/66 95 12/01/18 14:00 12/01/18 14:00 12/01/18 14:00 12/01/18 14:00 12/01/18 09:00 HEENT - Normocephalic. Heart - S1, S2, RRR Lungs - clear to auscultations Abdomen - soft, mild generalized tenderness, worse in epigastrum. Bowel Sounds normal Extremities - no edema. No calf tenderness. Neuro - AAO x 3. Tone/Power normal all 4 extremities. Laboratory Results - last 24 hr 11/30/18 12/01/18 12/01/18 21:15 03:45 08:30 WBC RBC Hgb Hct MCV MCH MCHC RDW Plt Count MPV Absolute Neuts (auto) Neutrophils % Lymphocytes % Monocytes % Eosinophils % Basophils % Nucleated RBC % Sodium 133 L Potassium 4.4 Chloride 100 Carbon Dioxide 25 Anion Gap 8 BUN 11 Creatinine 0.7 Creat Clearance w eGFR > 60 Random Glucose 125 H Calcium 8.7 Phosphorus 2.3 L Magnesium 2.0 Total Bilirubin 1.1 H AST 53 H ALT 54 Alkaline Phosphatase 100 Total Protein 8.3 H Albumin 4.0 Lipase 761 H Urine Color Ltyellow Urine Appearance Clear Urine pH 7.0 Ur Specific [place] 1.010 Urine Protein 1+ H Urine Glucose (UA) Negative Urine Ketones 1+ H Urine Blood Negative Urine Nitrite Negative Urine Bilirubin Negative Urine Urobilinogen Negative Ur Leukocyte Esterase Negative Urine WBC (Auto) 1 Urine RBC (Auto) <1 Ur Epithelial Cells Rare Urine Mucus Rare Valproic Acid 4.9 L 12/01/18 08:30 WBC 8.9 RBC 4.10 Hgb 14.5 Hct 41.4 MCV 100.8 H MCH 35.3 H MCHC 35.0 RDW 12.9 Plt Count 129 L MPV 10.5 Absolute Neuts (auto) 7.0 Neutrophils % 78.8 Lymphocytes % 11.9 Monocytes % 9.1 D Eosinophils % 0.0 D Basophils % 0.2 Nucleated RBC % 0 Sodium Potassium Chloride Carbon Dioxide Anion Gap BUN Creatinine Creat Clearance w eGFR Random Glucose Calcium Phosphorus Magnesium Total Bilirubin AST ALT Alkaline Phosphatase Total Protein Albumin Lipase Urine Color Urine Appearance Urine pH Ur Specific [place] Urine Protein Urine Glucose (UA) Urine Ketones Urine Blood Urine Nitrite Urine Bilirubin Urine Urobilinogen Ur Leukocyte Esterase Urine WBC (Auto) Urine RBC (Auto) Ur Epithelial Cells Urine Mucus Valproic Acid Current Medications Generic Name Dose Route Start Last Admin Trade Name [place] PRN Reason Stop Dose Admin Enoxaparin Sodium 40 mg 12/01/18 10:00 12/01/18 09:07 Lovenox - SQ 40 mg DAILY GONZALEZ Administration Folic Acid 1 mg 12/01/18 10:00 12/01/18 09:06 Folic Acid - PO 1 mg DAILY GONZALEZ Administration Sodium Chloride 1,000 mls @ 125 mls/hr 11/30/18 18:30 12/01/18 01:16 Normal Saline - IV 125 mls/hr ASDIR GONZALEZ Administration Lorazepam 2 mg 11/30/18 18:47 12/01/18 07:34 Ativan Injection - IVPUSH 2 mg Q6H PRN Administration WITHDRAWAL(CONT SUBST) Methadone HCl 20 mg/ Methadone 25 mg 12/01/18 09:00 12/01/18 09:06 HCl 5 mg PO 25 mg DAILY@0600 GONZALEZ Administration Pantoprazole Sodium 40 mg 11/30/18 18:21 12/01/18 09:07 Protonix Iv IVPUSH 40 mg DAILY GONZALEZ Administration Thiamine HCl 100 mg 12/01/18 10:00 12/01/18 09:06 Vitamin B1 - PO 100 mg DAILY GONZALEZ Administration Valproate Sodium 250 mg 12/01/18 10:00 12/01/18 10:27 Depacon Injection - IVPB 250 mg BID GONZALEZ Administration ASSESSMENT AND PLAN: 48 year female with history of polysubstance abuse (Alcohol, Nicotine, prior heroin user on Methodone), Hx of Pancreatitis, Hep C (untreated), GERD, Depression/Anxiety, currently presents with 1 day history of abdominal pain, nausea, vomiting - non-bloody, non-bilious. 1. Intractable Nausea/vomiting, possible cyclic vomiting syndrome secondary to MJ use versus Gastritis versus Pancreatitis - improving. Urine toxicology still not sent Lipase up to 761 (history of Pancreatitis, likely alcohol induced) Further investigation as per GI. Patient declines MRI. GI recommends transfer for EUS, declined transfer by Jared. NPO, IV fluids, anti-emetic (allergic to reglan and composine, QTc 511, will continue Ativan) Protonix IV 2. Elevated Transaminases - sec to Hep C +/- Alcoholic Hepatitis - improving. Abdominal US - prominent CBD Febrile, with elevated Bilirubin, improving transaminitis - monitor for ascending cholangitis. If any further fevers, will start Zosyn. GI to guide further management including need for ERCP and Abx therapy 3. History of Polysubstance Abuse - Alcohol, Cannabis, prior Heroin user - on Methadone. Last drink of alcohol yesterday. Utox requested. Drinks a fifth of vodka daily with history of withdrawal. Will maintain on Ativan prn as per CIWA MVI, Thiamine, Folate 4. Depression/Anxiety - appears stable, no psychosis - Continue Divalproex, Amitriptyline, Quetiapine, Trazodone 5. GERD - Protonix IV 6. Smoker - counselled and prescribed nicotine patch. 7. Macrocytosis - sec to Alcohol excess. B12/Folate pending. 8. Hypophosphatemia - will replete DVT Px - Lovenox SQ
[2018-12-01] MEDS ORDERED: POTASSIUM PHOSPHATE 30 MM in SODIUM CHLORIDE 500 ML IVPB ONE (15:30)
--- NOTE | 2018-12-01 16:32 | PN ---
Physical Exam: SUBJECTIVE: Patient seen and examined this AM. She states she is still having a lot of pain in her abdomen with nausea and vomiting. OBJECTIVE: Vital Signs Period Temp Pulse Resp BP Sys/Moore Pulse Ox Last 24 Hr 98.4 F-100.4 F 88-110 18-20 135-176/66-114 95-95 GENERAL: A&O, no acute distress HEAD: Normocephalic, atraumatic. EYES: PERRL, no scleral icterus EARS, NOSE, THROAT: oropharynx clear without exudates. Moist mucous membranes. NECK: supple without lymphadenopathy LUNGS: CTA b/l, no crackles or wheezes HEART: Regular rate and rhythm, normal S1 and S2 without murmur ABDOMEN: Soft, tender to palpation in epigastric region, normoactive bowel sounds EXTREMITIES: warm, well-perfused. No peripheral edema. PSYCHIATRIC: Anxious Laboratory Results - last 24 hr 11/30/18 12/01/18 12/01/18 21:15 03:45 08:30 WBC RBC Hgb Hct MCV MCH MCHC RDW Plt Count MPV Absolute Neuts (auto) Neutrophils % Lymphocytes % Monocytes % Eosinophils % Basophils % Nucleated RBC % Sodium 133 L Potassium 4.4 Chloride 100 Carbon Dioxide 25 Anion Gap 8 BUN 11 Creatinine 0.7 Creat Clearance w eGFR > 60 Random Glucose 125 H Calcium 8.7 Phosphorus 2.3 L Magnesium 2.0 Total Bilirubin 1.1 H AST 53 H ALT 54 Alkaline Phosphatase 100 Total Protein 8.3 H Albumin 4.0 Lipase 761 H Urine Color Ltyellow Urine Appearance Clear Urine pH 7.0 Ur Specific [place] 1.010 Urine Protein 1+ H Urine Glucose (UA) Negative Urine Ketones 1+ H Urine Blood Negative Urine Nitrite Negative Urine Bilirubin Negative Urine Urobilinogen Negative Ur Leukocyte Esterase Negative Urine WBC (Auto) 1 Urine RBC (Auto) <1 Ur Epithelial Cells Rare Urine Mucus Rare Valproic Acid 4.9 L 12/01/18 08:30 WBC 8.9 RBC 4.10 Hgb 14.5 Hct 41.4 MCV 100.8 H MCH 35.3 H MCHC 35.0 RDW 12.9 Plt Count 129 L MPV 10.5 Absolute Neuts (auto) 7.0 Neutrophils % 78.8 Lymphocytes % 11.9 Monocytes % 9.1 D Eosinophils % 0.0 D Basophils % 0.2 Nucleated RBC % 0 Sodium Potassium Chloride Carbon Dioxide Anion Gap BUN Creatinine Creat Clearance w eGFR Random Glucose Calcium Phosphorus Magnesium Total Bilirubin AST ALT Alkaline Phosphatase Total Protein Albumin Lipase Urine Color Urine Appearance Urine pH Ur Specific [place] Urine Protein Urine Glucose (UA) Urine Ketones Urine Blood Urine Nitrite Urine Bilirubin Urine Urobilinogen Ur Leukocyte Esterase Urine WBC (Auto) Urine RBC (Auto) Ur Epithelial Cells Urine Mucus Valproic Acid Active Medications Generic Name Dose Route Start Last Admin Trade Name Freq PRN Reason Stop Dose Admin Enoxaparin Sodium 40 mg 12/01/18 10:00 12/01/18 09:07 Lovenox - SQ 40 mg DAILY GONZALEZ Administration Folic Acid 1 mg 12/01/18 10:00 12/01/18 09:06 Folic Acid - PO 1 mg DAILY GONZALEZ Administration Sodium Chloride 1,000 mls @ 125 mls/hr 11/30/18 18:30 12/01/18 01:16 Normal Saline - IV 125 mls/hr ASDIR GONZALEZ Administration Potassium Phosphate 30 mm/ 510 mls @ 85 mls/hr 12/01/18 15:30 Sodium Chloride IVPB 12/01/18 21:29 ONCE ONE Lorazepam 2 mg 11/30/18 18:47 12/01/18 07:34 Ativan Injection - IVPUSH 2 mg Q6H PRN Administration WITHDRAWAL(CONT SUBST) Methadone HCl 20 mg/ Methadone 25 mg 12/01/18 09:00 12/01/18 09:06 HCl 5 mg PO 25 mg DAILY@0600 GONZALEZ Administration Pantoprazole Sodium 40 mg 11/30/18 18:21 12/01/18 09:07 Protonix Iv IVPUSH 40 mg DAILY GONZALEZ Administration Thiamine HCl 100 mg 12/01/18 10:00 12/01/18 09:06 Vitamin B1 - PO 100 mg DAILY GONZALEZ Administration Valproate Sodium 250 mg 12/01/18 10:00 12/01/18 10:27 Depacon Injection - IVPB 250 mg BID GONZALEZ Administration ASSESSMENT/PLAN: 48 yo F with a PMHx of Hep C (untreated), anemia, polysubstance abuse (IV drugs, multiple detox admissions), [place] pancreatitis, GERD, on methadone (last yesterday), presented today with 10/10, epigastric, abdominal pain radiating to the back with multiple episodes of bilious vomiting that started this morning. Intractable Nausea/Vomiting/Abdominal pain secondary to Alcoholic pancreatitis vs cyclical vomiting syndrome vs gastritis -Lipase up to 781, hx of alcohol induced pancreatitis -Chronic dilation of CBD between 7-9 mm -GI consult appreciated -MRCP refused as has been performed numerous times in the past -GI recommended transfer to [facility] for EUS prior to considering more invasive ERCP, declined transfer and recommended outpatient workup -Surgery consulted and will likely take to OR for cholecystectomy once acute pancreatitis is resolved -Elevated transaminases noted, low threshold concern for cholangitis -If spikes fever will immediately start Zosyn Polysubstance abuse -Urine Tox still not sent -On methadone maintenance, verified and continued GERD -Protonix 40 mg PO Daily Hep C -Untreated, will require outpatient follow up Prophylaxis -Lovenox 40 mg SQ Daily FEN -NS @ 125 cc/hr -monitor and replete -NPO Disposition Med/Surg Visit type - Emergency Visit Emergency Visit: Yes ED Registration Date: 12/01/18 Care time: The patient presented to the Emergency Department on the above date and was hospitalized for further evaluation of their emergent condition. - New Patient This patient is new to me today: Yes Date on this admission: 12/01/18 - Critical Care Critical Care patient: No
[2018-12-02] MEDS: SODIUM CHLORIDE 1,000 ML IV SCH (02:58)
[2018-12-02] MEDS ORDERED: METHADONE HCL 10 MG TABLET ONE (05:55)
[2018-12-02] MEDS ORDERED: METHADONE HCL 5 MG TABLET ONE (05:55)
[2018-12-02] MEDS: METHADONE 20 MG, METHADONE 5 MG PO SCH (05:59)
[2018-12-02 06:25] VITALS: BP 134/68; PULSE 86; TEMP 98.6
--- NOTE | 2018-12-02 11:47 | DS ---
Physical Exam: SUBJECTIVE: Informed by compliance administrator team that pt wanted to leave AMA. Team explained risks of leaving. Pt was of sound mind and logic per night team. Despite risks pt still wanted to leave AMA. OBJECTIVE: Vital Signs Period Temp Pulse Resp BP Sys/Moore Pulse Ox Last 24 Hr 98.6 F-99.5 F 86-96 18-20 126-135/63-68 95 PHYSICAL EXAM PE per night team. HOSPITAL COURSE: Date of Admission:12/01/18 Date of Discharge: 12/02/18 Pt was admitted for severe abdominal pain, nausea, and NB/bilious vomiting likely 2/2 to gastritis vs. alcoholic pancreatitis vs. cyclical vomiting syndrome. Pt was found to have elevated lipase with chronic dilation of CBD around 0.8mm on RUQ U/S imaging. Pt was seen by GI who recommended MRCP for assessment of possible strictures or possible choledochalithiasis, and potential endoscopic ultrasound evaluation. During her hospital course patient was maintained on Protonix 40 daily and IVF hydration as well as one dose of Zosyn upon arrival. She was found to have elevated QTc (511ms) and was kept on low dose ativan for anti-emetic purposes. She was also found to have a macrocytosis on CBC for which B12/folate labs were pending. Before workup and treatment could be completed pt left AMA despite risks and benefits of treatment explained. Minutes to complete discharge: 35 Discharge Summary Reason For Visit: NAUSEA AND VOMITING Condition: Stable - Instructions Referrals: Benja Goins MD [Primary Care Provider] - Disposition: AGAINST MEDICAL ADVICE - Home Medications Comprehensive Discharge Medication List: Ambulatory Orders Pantoprazole Sodium [Protonix -] 40 mg PO DAILY PRN #30 tablet.ec MDD 1 Gabapentin 300 mg PO TID 10/05/18 Amitriptyline HCl [Elavil -] 50 mg PO BID 10/11/18 Divalproex [Depakote -] 250 mg PO BID #60 tablet.ec 10/12/18 Quetiapine Fumarate [Seroquel -] 200 mg PO BID #60 tablet 10/12/18 traZODone HCL [Desyrel -] 50 mg PO HS #30 tablet MDD 50 10/12/18 Sodium Chloride Nasal [place] [[place] Nasal [place]] 2 spray NS BID #1 spraybtl 10/14/18 Folic Acid - 1 mg PO DAILY #30 tablet 11/24/18 Multivitamin,Therapeutic [Thera] 1 each PO DAILY #30 tab 11/24/18 Albuterol Sulfate Inhaler - [Ventolin HFA Inhaler -] 1 - 2 inh PO QID #1 inhaler 11/28/18 Bisacodyl [Bisacodyl -] 1 - 2 tab PO DAILY #30 tablet. 11/28/18 Clotrimazole [Lotrimin 1% Cream -] 1 applic TP BID #1 tube 11/28/18 Divalproex Sodium [Depakote] 250 mg PO BID 12/01/18 This patient is new to me today: No Emergency Visit: Yes ED Registration Date: 12/01/18 Care time: The patient presented to the Emergency Department on the above date and was hospitalized for further evaluation of their emergent condition. Critical Care patient: No - Discharge Referral Referred to [facility] Med P.C.: Yes Physician Referral: Mahin Cuenca DO (GI)
== END 2018-12-02 07:00 | disposition left against medical advice (07) | DRG 282 ==
LOC: JER 12:14 → JERBED 17:36 → J6S 23:15 → OBSVTOIN 12-01 11:41
DX: K85.90 Acute pancreatitis without necrosis or infection, unspecified (principal); R11.2 Nausea with vomiting, unspecified; B19.20 Unspecified viral hepatitis C without hepatic coma; D64.9 Anemia, unspecified; F10.20 Alcohol dependence, uncomplicated; K21.9 Gastro-esophageal reflux disease without esophagitis; F12.10 Cannabis abuse, uncomplicated; F17.210 Nicotine dependence, cigarettes, uncomplicated; F41.8 Other specified anxiety disorders; F31.9 Bipolar disorder, unspecified; R00.0 Tachycardia, unspecified; R10.9 Unspecified abdominal pain; G43.A1 Cyclical vomiting, in migraine, intractable; K29.70 Gastritis, unspecified, without bleeding; K70.10 Alcoholic hepatitis without ascites; K76.0 Fatty (change of) liver, not elsewhere classified; F11.20 Opioid dependence, uncomplicated; R74.0 Nonspecific elevation of levels of transaminase and lactic acid dehydrogenase [LDH]; D75.89 Other specified diseases of blood and blood-forming organs; E83.39 Other disorders of phosphorus metabolism; R63.4 Abnormal weight loss; Z68.21 Body mass index [BMI] 21.0-21.9, adult
CPT/HCPCS: 36415; 76705-TC; 80053; 80164; 81003; 81015; 82607; 82746; 83690; 83735; 84100; 85025; 99282-25; G0378; J7030

== ENCOUNTER 2019-02-10 15:57 | Inpatient (IN) | payer OTHER ==
--- NOTE | 2019-02-10 16:04 | PDOC ---
History of Present Illness - General Chief Complaint: Alcohol intoxication Stated Complaint: STOMACH PAIN Time Seen by Provider: 02/10/19 16:02 - History of Present Illness Initial Comments: 02/10/19 16:02 Ms. Mao is a 48 yo female w/ pmh of active Hep C, anemia, polysubstance abuse , alcohol pancreatitis, GERD, on methadone (25mg/day, last yesterday) who presents for evaluation of 1 day history of nausea and vomiting she reports is similar to her prior episodes of pancreatitis. Patient reports she drank a pint of hard liquor yesterday at a [employer] and symptoms started this morning at 0230. Patient reports she has also had diarrhea today that she attributes to the fact she was unable to attend her methadone program today. Patient further endorses diffuse abdominal pain. The patient denies chest pain, shortness of breath, headache and dizziness. Denies fever, chills, and constipation. Denies dysuria, frequency, urgency and hematuria. Past History - Past Medical History Allergies/Adverse Reactions: Allergies Allergy/AdvReac Type Severity Reaction Status Date / Time metoclopramide HCl Allergy Severe dystonic Verified 02/10/19 16:00 [From Reglan] reaction prochlorperazine maleate Allergy Severe DYSTONIA Verified 02/10/19 16:00 [From Compazine] haloperidol [From Haldol] Allergy Verified 02/10/19 16:00 mirtazapine [From Remeron] AdvReac Severe Difficulty Verified 02/10/19 16:00 Breathing Home Medications: Ambulatory Orders Pantoprazole Sodium [Protonix -] 40 mg PO DAILY PRN #30 tablet.ec MDD 1 Gabapentin 300 mg PO TID 10/05/18 Amitriptyline HCl [Elavil -] 50 mg PO BID 10/11/18 Divalproex [Depakote -] 250 mg PO BID #60 tablet.ec 10/12/18 Quetiapine Fumarate [Seroquel -] 200 mg PO BID #60 tablet 10/12/18 traZODone HCL [Desyrel -] 50 mg PO HS #30 tablet MDD 50 10/12/18 Sodium Chloride Nasal [place] [[place] Nasal [place]] 2 spray NS BID #1 spraybtl 10/14/18 Folic Acid - 1 mg PO DAILY #30 tablet 11/24/18 Multivitamin,Therapeutic [Thera] 1 each PO DAILY #30 tab 11/24/18 Albuterol Sulfate Inhaler - [Ventolin HFA Inhaler -] 1 - 2 inh PO QID #1 inhaler 11/28/18 Bisacodyl [Bisacodyl -] 1 - 2 tab PO DAILY #30 tablet. 11/28/18 Bacitracin - [Bacitracin Topical Ointment -] 1 applic TP QID #1 tube 01/23/19 Clotrimazole [Lotrimin -] 1 applic TP BID #1 tube 01/23/19 Anemia: Yes (as a teen, had iron and transfusions) Asthma: Yes (ON MDI) Cancer: No Cardiac Disorders: No CVA: No COPD: No CHF: No Dementia: No Diabetes: No GI Disorders: Yes (several admissions for etoh-related pancreatitis, GERD) Disorders: No HTN: No Hypercholesterolemia: No Kidney Stones: No Liver Disease: Yes (hepatitis C, not treated ) Psychiatric Problems: Yes (bipolar) Seizures: No Thyroid Disease: No - Surgical History Abdominal Surgery: No Appendectomy: No Cardiac Surgery: No Cholecystectomy: No Lung Surgery: No Neurologic Surgery: No Orthopedic Surgery: No - Reproductive History (#): 13 Para: 11 PID: No - Immunization History Immunization Up to Date: No - Suicide/Smoking/Psychosocial Hx Smoking History: Current every day smoker Have you smoked in the past 12 months: Yes Number of Cigarettes Smoked Daily: 5 Cigars Per Day: 0 'Breaking Loose' booklet given: 10/11/18 Hx Alcohol Use: Yes (last drink several days ago) Drug/Substance Use Hx: Yes (Methadone daily) Substance Use Type: Alcohol, Marijuana Hx Substance Use Treatment: Yes ([facility] 05/17) Review of Systems - Review of Systems Comments:: 02/10/19 16:04 GENERAL/CONSTITUTIONAL: No fever or chills. No weakness. HEAD, EYES, EARS, NOSE AND THROAT: No change in vision. No ear pain or discharge. No sore throat. CARDIOVASCULAR: No chest pain or shortness of breath RESPIRATORY: No cough, wheezing, or hemoptysis. GASTROINTESTINAL: +N/V/D as described. +Diffuse abdominal pain. No constipation. GENITOURINARY: No dysuria, frequency, or change in urination. MUSCULOSKELETAL: No joint or muscle swelling or pain. No neck or back pain. SKIN: No rash NEUROLOGIC: No headache, vertigo, loss of consciousness, or change in strength/ sensation. ENDOCRINE: No increased thirst. No abnormal weight change HEMATOLOGIC/LYMPHATIC: No anemia, easy bleeding, or history of blood clots. ALLERGIC/IMMUNOLOGIC: No hives or skin allergy. *Physical Exam - Physical Exam Comments: 02/10/19 16:04 GENERAL: Awake, alert, and fully oriented, in no acute distress HEAD: No signs of trauma, normocephalic, atraumatic EYES: PERRLA, EOMI, sclera anicteric, conjunctiva clear ENT: Auricles normal inspection, hearing grossly normal, nares patent, oropharynx clear without exudates. Moist mucosa NECK: Normal ROM, supple, no lymphadenopathy, JVD, or masses LUNGS: No distress, speaks full sentences, clear to auscultation bilaterally HEART: Regular rate and rhythm, normal S1 and S2, no murmurs, rubs or gallops, peripheral pulses normal and equal bilaterally. ABDOMEN: +Diffuse mild TTP. Soft, normoactive bowel sounds. No guarding, no rebound. No masses EXTREMITIES: Normal inspection, Normal range of motion, no edema. No clubbing or cyanosis. NEUROLOGICAL: Cranial nerves II through XII grossly intact. Normal speech, normal gait, no focal sensorimotor deficits SKIN: Warm, Dry, normal turgor, no rashes or lesions noted. ED Treatment Course - LABORATORY CBC & Chemistry Diagram: 02/10/19 16:40 02/10/19 16:40 Medical Decision Making - Medical Decision Making 02/10/19 19:06 Ms. Mao is a 48 yo female w/ pmh as described who presents for evaluation of N/V/D concerning for virus vs. tox. vs. pancreatits. Patient evaluated w/ labs as below as well as EKG (normal) and CXR. Patient given fluids and zofran with minimal relief from symptoms. Patient again given zofran for continued vomiting. Ativan 2mg given for possible withdrawal. Patient continued to feel ill so reglan and benadryl given following repeat EKG to confirm no prolonged QT. 02/10/19 19:34 Patient continuing to experience n/v despite treatment as above. Will admit for further care and GI follow-up. Laboratory Results - last 24 hr 02/10/19 02/10/1902/10/19 16:40 16:40 16:40 WBC 9.3 RBC 4.23 Hgb 14.4 Hct 42.0 MCV 99.1 H MCH 34.1 H MCHC 34.4 RDW 13.2 Plt Count 140 MPV 9.5 Absolute Neuts (auto) 8.1 H Neutrophils % 87.2 H Lymphocytes % 8.7 D Monocytes % 3.5 L Eosinophils % 0.1 D Basophils % 0.5 Nucleated RBC % 0 Sodium 135 L Potassium 3.9 Chloride 99 Carbon Dioxide 24 Anion Gap 12 BUN 15 Creatinine 0.7 Creat Clearance w eGFR 89.69 Random Glucose 170 H Calcium 9.6 Total Bilirubin 1.0 AST 59 H ALT 51 Alkaline Phosphatase 96 Total Protein 9.4 H Albumin 4.5 Lipase 314 Serum , Qual Negative *DC/Admit/Observation/Transfer Diagnosis at time of Disposition: Nausea & vomiting Qualifiers: Vomiting type: unspecified Vomiting Intractability: intractable Qualified Code( s): R11.2 - Nausea with vomiting, unspecified Abdominal pain Qualifiers: Abdominal location: unspecified location Qualified Code(s): R10.9 - Unspecified abdominal pain - Discharge Dispostion Decision to Admit order: Yes - Referrals - Patient Instructions - Post Discharge Activity
[2019-02-10 16:08] VITALS: BMI 25.0
--- NOTE | 2019-02-10 16:08 | PDOC ---
Attending Attestation - HPI HPI: This patient is a 48 year old female with PMHx of active Hep C, anemia, polysubstance abuse, alcohol pancreatitis, GERD, on methadone (25mg/day, last used yesterday) who presents with f nausea and vomiting since 2:30 am. She states that this feels like her prior episodes of pancreatitis. She admits to drinking hard liquor yesterday. Patient also reports diarrhea and diffuse abdominal pain. The patient denies chest pain, shortness of breath, headache and dizziness. Denies fever, chills, and constipation. Denies dysuria, frequency, urgency and hematuria. - Physicial Exam PE: GENERAL: Awake, alert, and fully oriented, mildly uncomfortable appearing. HEAD: No signs of trauma EYES: PERRLA, EOMI, sclera anicteric, conjunctiva clear ENT: Auricles normal inspection, hearing grossly normal, nares patent. LUNGS: Breath sounds equal, clear to auscultation bilaterally. No wheezes, and no crackles HEART: Regular rate and rhythm, normal S1 and S2, no murmurs, rubs or gallops ABDOMEN: Soft, diffusely tender, nondistended. No guarding, no rebound. No masses EXTREMITIES: Normal range of motion, no edema. No cords, erythema, or tenderness NEUROLOGICAL: Cranial nerves II through XII grossly intact. Normal speech. SKIN: Warm, Dry, normal turgor, no rashes or lesions noted. <Armida Li - Last Filed: 02/10/19 19:29> - Resident Resident Name: Vikas Delgado - Medical Decision Making 02/10/19 21:56 Pt presents to the ED complaining of epigastric pain, nausea and vomiting after drinking last night, similar to previous episodes of pancreatitis. Actively vomiting i the ED. Will check labs and give pain and nausea control and reassess. <Melyssa Burnham - Last Filed: 02/10/19 22:02> Attestations - Attestations 02/10/19 19:30 Documentation prepared by Armida Li, acting as medical cost consultant for Melyssa Burnham MD. <Armida Li - Last Filed: 02/10/19 19:29>
[2019-02-10] MEDS ORDERED: SODIUM CHLORIDE 1,000 ML IV STA ×2 (16:18→19:33)
[2019-02-10] MEDS ORDERED: ONDANSETRON 4 MG/2 ML VIAL IVPUSH ONE ×2 (16:18→18:16)
[2019-02-10] MEDS ORDERED: BUPRENORPHINE/NALOXONE 2 MG/0.5 MG FILM PACKET SL ONE (16:21)
[2019-02-10] MEDS ORDERED: ONDANSETRON 4 MG/2 ML VIAL ONE ×2 (16:27→18:17)
[2019-02-10 16:50] LABS: BASO % 0.5 % (0-2.0); EOS % 0.1 % (0-4.5); HEMOGLOBIN 14.4 GM/dL (10.7-15.3); LYMPH % 8.7 % (8-40); MCH 34.1 pg (25.7-33.7); MCHC 34.4 g/dl (32.0-36.0); MEAN CELL VOLUME 99.1 fl (80-96); MEAN PLT VOLUME 9.5 fl (7.5-11.1); MONO % 3.5 % (3.8-10.2); NEUT % 87.2 % (42.8-82.8); PLATELET COUNT 140 K/MM3 (134-434); RBC 4.23 M/mm3 (3.60-5.2); RDW 13.2 % (11.6-15.6); WHITE BLOOD COUNT 9.3 K/mm3 (4.0-10.0)
[2019-02-10 17:24] LABS: ALBUMIN 4.5 g/dl (3.4-5.0); ALK PHOS 96 U/L (45-117); ANION GAP 12 MMOL/L (8-16); BLOOD UREA NITROGEN 15 mg/dL (7-18); CALCIUM 9.6 mg/dL (8.5-10.1); CHLORIDE 99 mmol/L (98-107); CO2 24 mmol/L (21-32); CREATININE 0.7 mg/dL (0.55-1.3); GLUCOSE,RANDOM 170 mg/dL (74-106); LIPASE 314 U/L (73-393); POTASSIUM 3.9 mmol/L (3.5-5.1); SGOT/AST 59 U/L (15-37); SGPT/ALT 51 U/L (13-61); SODIUM 135 mmol/L (136-145); TOT PROT 9.4 g/dl (6.4-8.2)
[2019-02-10] MEDS ORDERED: LORazepam 2 MG/ML SDV VIAL ONE ×2 (18:10→21:33)
[2019-02-10] MEDS ORDERED: ACETAMINOPHEN 1000 MG/100 ML VIAL (NON FORMULARY) IVPB ONE (18:33)
[2019-02-10] MEDS ORDERED: ACETAMINOPHEN INJECTION 100 ML IVPB ONE (18:40)
[2019-02-10] MEDS ORDERED: METOCLOPRAMIDE HCL INJECTION 10 MG/2 ML VIAL IVPB ONE (18:56)
[2019-02-10] MEDS ORDERED: METOCLOPRAMIDE HCL INJECTION 10 MG/2 ML VIAL ONE (19:05)
--- NOTE | 2019-02-10 20:42 | HP ---
CHIEF COMPLAINT: Abdominal Pain PCP: HISTORY OF PRESENT ILLNESS: Pt. is a 48 y.o. F w/ PMHx. of Hep C (untreated), polysubstance abuse(EtOH and Heroin use), Bipolar Disorder, and GERD presents with abdominal pain that started around 2AM this morning. Pt. has history of alcoholic pancreatitis, with recent admission 2 months ago for abdominal pain however left AMA before MRCP. Pt. states that she has vomited "25 times since this morning." Emesis non-bilious, non-bloody. Pt. states that she has had 10 episodes of watery non-bloody diarrhea since this morning. Pt. states that she was out drinking last night and did not take her methadone dose today. She states that she drinks everyday. Pt. endorses headache, chills, subjective fever , chest pain, shortness of breath, and numbness/tingling. Pt. denies an urinary changes including dysuria or hematuria. Of Pt. has signed out AMA the last few hospital admissions for pancreatitis. ER course was notable for: (1)Suboxone, Benadryl, Reglan (2)Zofran, EKG, labs, lipase (3)CT A/P Recent Travel: No PAST MEDICAL HISTORY: As noted above PAST SURGICAL HISTORY: x 2 Social History: Smokin-3 cigs/day Alcohol: 1Pint Vodka/ day Drugs: Marijuana, Denies recent Heroin use. Family History: Denies Allergies metoclopramide HCl [From Reglan] Allergy (Severe, Verified 02/10/19 16:00) dystonic reaction dystonic reaction prochlorperazine maleate [From Compazine] Allergy (Severe, Verified 02/10/19 16: 00) DYSTONIA haloperidol [From Haldol] Allergy (Verified 02/10/19 16:00) mirtazapine [From Remeron] Adverse Reaction (Severe, Verified 02/10/19 16:00) Difficulty Breathing HOME MEDICATIONS: Home Medications Medication Instructions Recorded Pantoprazole Sodium [Protonix -] 40 mg PO DAILY PRN #30 tablet.ec 09/20/18 MDD 1 Gabapentin 300 mg PO TID 10/05/18 Amitriptyline HCl [Elavil -] 50 mg PO BID 10/11/18 Divalproex [Depakote -] 250 mg PO BID #60 tablet.ec 10/12/18 Quetiapine Fumarate [Seroquel -] 200 mg PO BID #60 tablet 10/12/18 traZODone HCL [Desyrel -] 50 mg PO HS #30 tablet MDD 50 10/12/18 Sodium Chloride Nasal [place] [[place] 2 spray NS BID #1 spraybtl 10/14/18 [place] Nasal [place]] Folic Acid - 1 mg PO DAILY #30 tablet 11/24/18 Multivitamin,Therapeutic [Thera] 1 each PO DAILY #30 tab 11/24/18 Albuterol Sulfate Inhaler - 1 - 2 inh PO QID #1 inhaler 11/28/18 [Ventolin HFA Inhaler -] Bisacodyl [Bisacodyl -] 1 - 2 tab PO DAILY #30 tablet. 11/28/18 Bacitracin - [Bacitracin Topical 1 applic TP QID #1 tube 01/23/19 Ointment -] Clotrimazole [Lotrimin -] 1 applic TP BID #1 tube 01/23/19 REVIEW OF SYSTEMS As per HPI PHYSICAL EXAMINATION Vital Signs - 24 hr 02/10/19 02/10/19 16:00 18:21 Pulse Rate 81 Pulse Rate [ 91 H Right] Respiratory 18 18 Rate Blood Pressure 180/100 H Blood Pressure 170/118 H [Right Arm] O2 Sat by Pulse 95 97 Oximetry (%) GENERAL: Awake, alert, and fully oriented, in no acute distress. HEAD: Normal with no signs of trauma. EYES: Pupils equal, round and reactive to light, extraocular movements intact, sclera anicteric, conjunctiva clear. No lid lag. EARS, NOSE, THROAT: Ears normal, nares patent, oropharynx clear without exudates. Moist mucous membranes. NECK: Normal range of motion, supple without lymphadenopathy, JVD, or masses. LUNGS: Breath sounds equal, clear to auscultation bilaterally. No wheezes, and no crackles. No accessory muscle use. HEART: Regular rate and rhythm, normal S1 and S2 without murmur, rub or gallop. ABDOMEN: Soft, diffuse abdominal tenderness, not distended, normoactive bowel sounds, no guarding, no rebound, no masses. No hepatomegaly or splenomegaly. MUSCULOSKELETAL: Normal range of motion at all joints. No bony deformities or tenderness. No CVA tenderness. UPPER EXTREMITIES: 2+ radial pulses, warm, well-perfused. No cyanosis. No clubbing. No peripheral edema. LOWER EXTREMITIES: 2+ pulses, warm, well-perfused. No calf tenderness. No peripheral edema. NEUROLOGICAL: Normal speech. Gait not assessed SKIN: Warm, dry, normal turgor, no rashes or lesions noted, normal capillary refill. Laboratory Results - last 24 hr 02/10/19 02/10/19 02/10/19 16:40 16:40 16:40 WBC 9.3 RBC 4.23 Hgb 14.4 Hct 42.0 MCV 99.1 H MCH 34.1 H MCHC 34.4 RDW 13.2 Plt Count 140 MPV 9.5 Absolute Neuts (auto) 8.1 H Neutrophils % 87.2 H Lymphocytes % 8.7 D Monocytes % 3.5 L Eosinophils % 0.1 D Basophils % 0.5 Nucleated RBC % 0 Sodium 135 L Potassium 3.9 Chloride 99 Carbon Dioxide 24 Anion Gap 12 BUN 15 Creatinine 0.7 Creat Clearance w eGFR 89.69 Random Glucose 170 H Calcium 9.6 Total Bilirubin 1.0 AST 59 H ALT 51 Alkaline Phosphatase 96 Total Protein 9.4 H Albumin 4.5 Lipase 314 Serum , Qual Negative Alcohol, Quantitative 02/10/19 16:40 WBC RBC Hgb Hct MCV MCH MCHC RDW Plt Count MPV Absolute Neuts (auto) Neutrophils % Lymphocytes % Monocytes % Eosinophils % Basophils % Nucleated RBC % Sodium Potassium Chloride Carbon Dioxide Anion Gap BUN Creatinine Creat Clearance w eGFR Random Glucose Calcium Total Bilirubin AST ALT Alkaline Phosphatase Total Protein Albumin Lipase Serum , Qual Alcohol, Quantitative < 3.0 ASSESSMENT/PLAN: Pt. is a 48 y.o. F w/ PMHx. of Hep C (untreated), polysubstance abuse(EtOH and Heroin use), Bipolar Disorder, multiple episodes of pancreatitis and GERD presents with abdominal pain that started around 2 AM this morning. Labs significant for normal lipase. #Abdominal Pain-radiating to the back CT A/P thickened appearance of transverse and descending colon, no abnormalities of pancreas allowing for lack of IV contrast Hx. of pancreatitis c/w Protonix 40mg IV for GERD NPO IVF Consult to GI (Dr. Byers) appreciated Nausea, vomiting, diarrhea, afebrile, lipase and LFTs wnl, however elevated glucose Clinical picture suggests chronic pancreatitis however cannot rule colitis, enteritis or opiate withdrawal at this time f/u Abdominal US Pain management w/ methadone and IV tylenol #Polysubstance abuse Ativan 2mg Q6H PRN Ativan 2mg Q6H GONZALEZ c/w Methadone 25mg Daily Pt. received suboxone in the ED, 1/2 life 12-24 hours- Likely the cause of elevated BP is pain, BP resolving with administration of anxiolytics and pain medication will treat elevated Diastolic with dose of Hydrazine 5mg and recheck BP. EtoH level <3 CIWA not calculated, Pt. endorses drinking the night before. COWS: 8 indicating mild withdrawal, Pt. endorses missing last Methadone dose #FEN LR @ 150 monitor electrolytes and replete as needed NPO #DVT Ppx. TEDs and SCDs Visit type - Emergency Visit Emergency Visit: Yes ED Registration Date: 02/10/19 Care time: The patient presented to the Emergency Department on the above date and was hospitalized for further evaluation of their emergent condition. - New Patient This patient is new to me today: Yes Date on this admission: 02/10/19 - Critical Care Critical Care patient: No
[2019-02-10] MEDS ORDERED: LACTATED RINGERS SOLUTION 1,000 ML IV SCH ×2 (20:45→22:02)
[2019-02-10] MEDS ORDERED: MAGNESIUM SULF 50% (8.12 MEQ/2 ML-1 GM VIAL) IVPB ONE (20:50)
[2019-02-10] MEDS ORDERED: LORazepam 2 MG/ML SDV VIAL IVPUSH PRN (20:57)
[2019-02-10] MEDS ORDERED: METHADONE HCL 5 MG TABLET PO ONE (21:00)
[2019-02-10 21:08] LABS: MAGNESIUM 1.5 mg/dL (1.8-2.4); PHOSPHOROUS 3.5 mg/dL (2.5-4.9)
[2019-02-10 21:11] VITALS: PULSE 113
[2019-02-10] MEDS ORDERED: PANTOPRAZOLE SODIUM 40 MG VIAL IVPUSH SCH (22:01)
[2019-02-10] MEDS ORDERED: METHADONE HCL 5 MG TABLET ONE (22:28)
--- NOTE | 2019-02-11 00:48 | PN ---
Teaching Attending Note Name of Resident: Alex Vasquez ATTENDING PHYSICIAN STATEMENT I saw and evaluated the patient. I reviewed the resident's note and discussed the case with the resident. I agree with the resident's findings and plan as documented. SUBJECTIVE: OBJECTIVE: ASSESSMENT AND PLAN: 48 y/o f with hx of extensive alcohol and drug abuse, with hep-c, history of pancreatitis and malnourished presented for nausea and vomiting, patient had drank today 1/5 of vodka before he symptoms started - her history was limited due to lethargy patient was give lorazepam and diphenhydramine prior to my assessment plan: admit to tele - CIWA - lorazepam 2mg q6hrs PO Lorazepam 2mg q4hr IVP nausea vomiting with abdominal pain radiating to the back in the setting of acute intoxication CT abdomen IVF hydration keep patient NPO until she requests food pain medication drug withdrawal methadone
[2019-02-11] MEDS ORDERED: LORazepam 2 MG/ML SDV VIAL ONE ×2 (03:26→10:05)
[2019-02-11] MEDS: LORazepam 2 MG/ML SDV VIAL IVPUSH SCH ×2 (03:32→10:07)
[2019-02-11] MEDS ORDERED: LACTATED RINGERS SOLUTION 1,000 ML/1,000 ML INFUS.BAG IV SCH ×2 (06:15→06:42)
[2019-02-11] MEDS ORDERED: hydrALAZINE HCL 20 MG/ML VIAL IVPUSH ONE (06:30)
[2019-02-11] MEDS ORDERED: hydrALAZINE HCL 20 MG/ML VIAL ONE (06:35)
[2019-02-11 07:01] LABS: BASO % 0.2 % (0-2.0); HEMOGLOBIN 13.7 GM/dL (10.7-15.3); LYMPH % 13.5 % (8-40); MCHC 34.1 g/dl (32.0-36.0); MEAN CELL VOLUME 99.5 fl (80-96); MEAN PLT VOLUME 9.5 fl (7.5-11.1); MONO % 10.5 % (3.8-10.2); NEUT % 75.8 % (42.8-82.8); PLATELET COUNT 118 K/MM3 (134-434); RBC 4.02 M/mm3 (3.60-5.2); RDW 13.5 % (11.6-15.6)
[2019-02-11] MEDS ORDERED: ACETAMINOPHEN 1000 MG/100 ML VIAL (NON FORMULARY) IVPB PRN (07:07)
[2019-02-11 07:32] LABS: INR 0.98 (0.83-1.09); PROTHROMBIN TIME (PATIENT) 11.6 SEC (9.7-13.0)
[2019-02-11 07:37] VITALS: BP 134/99
[2019-02-11 07:37] LABS: ALBUMIN 3.6 g/dl (3.4-5.0); ALK PHOS 81 U/L (45-117); ANION GAP 8 MMOL/L (8-16); BILIRUBIN,TOTAL 1.1 mg/dL (0.2-1); BLOOD UREA NITROGEN 12 mg/dL (7-18); CALCIUM 8.1 mg/dL (8.5-10.1); CHLORIDE 103 mmol/L (98-107); CO2 25 mmol/L (21-32); CREATININE 0.7 mg/dL (0.55-1.3); GLUCOSE,RANDOM 107 mg/dL (74-106); MAGNESIUM 2.4 mg/dL (1.8-2.4); PHOSPHOROUS 3.3 mg/dL (2.5-4.9); POTASSIUM 3.7 mmol/L (3.5-5.1); SGOT/AST 36 U/L (15-37); SGPT/ALT 38 U/L (13-61); SODIUM 135 mmol/L (136-145); TOT PROT 7.8 g/dl (6.4-8.2)
[2019-02-11] MEDS ORDERED: ACETAMINOPHEN INJECTION 100 ML IVPB ONE (09:10)
[2019-02-11] MEDS ORDERED: PANTOPRAZOLE SODIUM 40 MG VIAL IVPUSH SCH (10:00)
[2019-02-11] MEDS ORDERED: PANTOPRAZOLE SODIUM 40 MG/100 ML BAG IVPB ONE (10:13)
--- NOTE | 2019-02-11 18:58 | PN ---
Progress Note (short form) - Note Progress Note: SUBJECTIVE: Complains of generalized abdominal discomfort and "withdrawals". No fever/chills/vomiting/diarrhea OBJECTIVE: Afebrile, Hemodynamically Stable. Last Vital Signs Temp Pulse Resp BP Pulse Ox 113 H 18 134/99 97 02/10/19 20:00 02/10/19 20:00 02/11/19 07:36 02/11/19 06:41 HEENT - Atraumatic, Normocephalic Heart - S1, S2, RRR Lungs - clear to auscultation Abdomen - Generalized tenderness Extremities - no edema/calf tenderness Neuro - AAO x 3. Mildly tremulous. Tone/Power normal all extremities. Laboratory Results - last 24 hr 02/10/19 02/10/19 02/11/19 16:40 16:40 06:30 WBC 9.0 RBC 4.02 Hgb 13.7 Hct 40.0 MCV 99.5 H MCH 34.0 H MCHC 34.1 RDW 13.5 Plt Count 118 L MPV 9.5 Absolute Neuts (auto) 6.8 Neutrophils % 75.8 Lymphocytes % 13.5 D Monocytes % 10.5 H D Eosinophils % 0.0 D Basophils % 0.2 Nucleated RBC % 0 PT with INR INR Sodium Potassium Chloride Carbon Dioxide Anion Gap BUN Creatinine Creat Clearance w eGFR Random Glucose Calcium Phosphorus 3.5 Magnesium 1.5 L Total Bilirubin AST ALT Alkaline Phosphatase Total Protein Albumin Alcohol, Quantitative < 3.0 02/11/19 02/11/19 06:30 06:30 WBC RBC Hgb Hct MCV MCH MCHC RDW Plt Count MPV Absolute Neuts (auto) Neutrophils % Lymphocytes % Monocytes % Eosinophils % Basophils % Nucleated RBC % PT with INR 11.60 INR 0.98 Sodium 135 L Potassium 3.7 Chloride 103 Carbon Dioxide 25 Anion Gap 8 BUN 12 Creatinine 0.7 Creat Clearance w eGFR 89.69 Random Glucose 107 H Calcium 8.1 L Phosphorus 3.3 Magnesium 2.4 Total Bilirubin 1.1 H AST 36 ALT 38 Alkaline Phosphatase 81 Total Protein 7.8 Albumin 3.6 Alcohol, Quantitative Home Medications Medication Instructions Recorded Pantoprazole Sodium [Protonix -] 40 mg PO DAILY PRN #30 tablet.ec 09/20/18 MDD 1 Gabapentin 300 mg PO TID 10/05/18 Amitriptyline HCl [Elavil -] 50 mg PO BID 10/11/18 Divalproex [Depakote -] 250 mg PO BID #60 tablet.ec 10/12/18 Quetiapine Fumarate [Seroquel -] 200 mg PO BID #60 tablet 10/12/18 traZODone HCL [Desyrel -] 50 mg PO HS #30 tablet MDD 50 10/12/18 Sodium Chloride Nasal [place] [[place] 2 spray NS BID #1 spraybtl 10/14/18 [place] Nasal [place]] Folic Acid - 1 mg PO DAILY #30 tablet 11/24/18 Multivitamin,Therapeutic [Thera] 1 each PO DAILY #30 tab 11/24/18 Albuterol Sulfate Inhaler - 1 - 2 inh PO QID #1 inhaler 11/28/18 [Ventolin HFA Inhaler -] Bisacodyl [Bisacodyl -] 1 - 2 tab PO DAILY #30 tablet. 11/28/18 Bacitracin - [Bacitracin Topical 1 applic TP QID #1 tube 01/23/19 Ointment -] Clotrimazole [Lotrimin -] 1 applic TP BID #1 tube 01/23/19 ASSESSMENT/PLAN: 48 year old female with history of Hepatitis C (untreated), Polysubstance Abuse (Alcohol and HEroin), Bipolar Disorder, GERD, Hx of Pancreatitis, Chronic CBD Dilatation, presents with abdominal pain and vomiting. No hematemesis/melena/ hematochezia. No fever. Reports chills. Non-specific Abdominal Pain, possible Colitis CT A/P thickened appearance of transverse and descending colon, no abnormalities of pancreas (no IV contrst) - official read pending. Hx of pancreatitis but Lipase normal NPO/IV Fluids/GI consult. Chronic CBD Dilatation - confirmed again on US Seen by GI on last admission at which time MRCP was recommended and consideration for transfer to [facility] for EUS, however she left AMA at that time. She still currently declines MRCP due to Claustrophobia. Polysubstance abuse - Alcohol and Heroin Mild tremor AAO x3, no diaphoresis/sweating/tachycardia/hallucinations/seizures. Methadone Banana Bag Thiamine, Folate, MVI Ativan for alcohol withdrawal Uncontrolled BP - likley sec to pain - now controlled s/p Hydralazine and Ativan Telemonitoring and BP monitoring. ADDENDUM - Informed by Nursing staff in ED that patient wanted to leave AMA and shortly thereafter eloped. Visit type - Emergency Visit Emergency Visit: Yes ED Registration Date: 02/10/19 Care time: The patient presented to the Emergency Department on the above date and was hospitalized for further evaluation of their emergent condition. - New Patient This patient is new to me today: Yes Date on this admission: 02/11/19 - Critical Care Critical Care patient: No - Discharge Referral Referred to [facility] Med P.C.: No
--- NOTE | 2019-02-12 10:32 | EKG ---
Test Reason : Blood Pressure : / mmHG Vent. Rate : 086 BPM Atrial Rate : 086 BPM P-R Int : 138 ms QRS Dur : 082 ms QT Int : 416 ms P-R-T Axes : 072 046 058 degrees QTc Int : 497 ms NORMAL SINUS RHYTHM MINIMAL VOLTAGE CRITERIA FOR LVH, MAY BE NORMAL VARIANT SEPTAL INFARCT (CITED ON OR BEFORE 10-FEB-2019) ABNORMAL ECG WHEN COMPARED WITH ECG OF 10-FEB-2019 18:46, NO SIGNIFICANT CHANGE WAS FOUND Confirmed by KELLY LOBO MD ([id number]) on 02/12/2019 10:31:46 AM Referred By: Phyllis OLSON Confirmed By:KELLY LOBO MD
--- NOTE | 2019-02-12 10:34 | EKG ---
Test Reason : Blood Pressure : / mmHG Vent. Rate : 079 BPM Atrial Rate : 079 BPM P-R Int : 118 ms QRS Dur : 082 ms QT Int : 434 ms P-R-T Axes : -30 055 059 degrees QTc Int : 497 ms UNUSUAL P AXIS, POSSIBLE ECTOPIC ATRIAL RHYTHM VOLTAGE CRITERIA FOR LEFT VENTRICULAR HYPERTROPHY CANNOT RULE OUT SEPTAL INFARCT , AGE UNDETERMINED ABNORMAL ECG WHEN COMPARED WITH ECG OF 05-OCT-2018 09:09, ECTOPIC ATRIAL RHYTHM HAS REPLACED SINUS RHYTHM Confirmed by KELLY LOBO MD ([id number]) on 02/12/2019 10:33:47 AM Referred By: Confirmed By:KELLY LOBO MD
--- NOTE | 2019-02-12 10:34 | EKG ---
Test Reason : Blood Pressure : / mmHG Vent. Rate : 092 BPM Atrial Rate : 092 BPM P-R Int : 120 ms QRS Dur : 078 ms QT Int : 394 ms P-R-T Axes : 000 058 071 degrees QTc Int : 487 ms NORMAL SINUS RHYTHM MINIMAL VOLTAGE CRITERIA FOR LVH, MAY BE NORMAL VARIANT SEPTAL INFARCT (CITED ON OR BEFORE 10-FEB-2019) ABNORMAL ECG WHEN COMPARED WITH ECG OF 10-FEB-2019 16:53, NO SIGNIFICANT CHANGE WAS FOUND Confirmed by KELLY LOBO MD ([id number]) on 02/12/2019 10:33:58 AM Referred By: Confirmed By:KELLY LOBO MD
--- NOTE | 2019-02-14 15:27 | EKG ---
Test Reason : Blood Pressure : / mmHG Vent. Rate : 084 BPM Atrial Rate : 084 BPM P-R Int : 124 ms QRS Dur : 080 ms QT Int : 424 ms P-R-T Axes : 061 047 055 degrees QTc Int : 501 ms NORMAL SINUS RHYTHM POSSIBLE LEFT ATRIAL ENLARGEMENT LEFT VENTRICULAR HYPERTROPHY CANNOT RULE OUT SEPTAL INFARCT (CITED ON OR BEFORE 10-FEB-2019) PROLONGED QT ABNORMAL ECG WHEN COMPARED WITH ECG OF 10-FEB-2019 16:53, SINUS RHYTHM HAS REPLACED ECTOPIC ATRIAL RHYTHM Confirmed by NICOLE SÁNCHEZ, LIZZIE ([id number]) on 02/14/2019 3:27:47 PM Referred By: Confirmed By:LIZZIE RIVERA MD
== END 2019-02-11 13:40 | disposition left against medical advice (07) | DRG 249 ==
LOC: JER 15:57 → JERBED 19:36 → OBSVTOIN 20:42
PROVIDERS: ADMIT Internal Medicine
DX: K52.9 Noninfective gastroenteritis and colitis, unspecified (principal); R11.2 Nausea with vomiting, unspecified; F10.239 Alcohol dependence with withdrawal, unspecified; K83.8 Other specified diseases of biliary tract; D64.9 Anemia, unspecified; B19.20 Unspecified viral hepatitis C without hepatic coma; K21.9 Gastro-esophageal reflux disease without esophagitis; F11.10 Opioid abuse, uncomplicated; F31.9 Bipolar disorder, unspecified; F10.229 Alcohol dependence with intoxication, unspecified; F40.240 Claustrophobia; I10 Essential (primary) hypertension
CPT/HCPCS: 36415; 71045-TC-FY; 74176-TC; 76705-TC; 80053; 80307; 83690; 83735; 84100; 84703; 85025; 85610; 93005; 93010; 99285-25; G0378; J0131; J7030

== ENCOUNTER 2019-02-14 14:33 | Emergency (ER) | payer OTHER ==
[2019-02-14 15:03] VITALS: BMI 24.5
--- NOTE | 2019-02-14 15:09 | PDOC ---
History of Present Illness - General Chief Complaint: Alcohol intoxication Stated Complaint: INTOX Time Seen by Provider: 02/14/19 15:07 History Source: Patient Exam Limitations: No Limitations - History of Present Illness Initial Comments: 02/14/19 15:09 48 yo female w/ pmh of active Hep C, anemia, polysubstance abuse, alcohol pancreatitis, GERD, on methadone (25mg/day, last yesterday) who presents for alcohol intoxication and desire for detox at [facility]. She drank 1 pint of vodka at 1000 this AM. She denies any chest pain, shortness of breath, abdominal pain, nausea, vomiting, diarrhea, constipation. She has no other complaints. Past History - Past Medical History Allergies/Adverse Reactions: Allergies Allergy/AdvReac Type Severity Reaction Status Date / Time metoclopramide HCl Allergy Severe dystonic Verified 02/14/19 15:01 [From Reglan] reaction prochlorperazine maleate Allergy Severe DYSTONIA Verified 02/14/19 15:01 [From Compazine] haloperidol [From Haldol] Allergy Verified 02/14/19 15:01 mirtazapine [From Remeron] AdvReac Severe Difficulty Verified 02/14/19 15:01 Breathing Home Medications: Ambulatory Orders Pantoprazole Sodium [Protonix -] 40 mg PO DAILY PRN #30 tablet.ec MDD 1 Gabapentin 300 mg PO TID 10/05/18 Amitriptyline HCl [Elavil -] 50 mg PO BID 10/11/18 Divalproex [Depakote -] 250 mg PO BID #60 tablet.ec 10/12/18 Quetiapine Fumarate [Seroquel -] 200 mg PO BID #60 tablet 10/12/18 traZODone HCL [Desyrel -] 50 mg PO HS #30 tablet MDD 50 10/12/18 Sodium Chloride Nasal [place] [[place] Nasal [place]] 2 spray NS BID #1 spraybtl 10/14/18 Folic Acid - 1 mg PO DAILY #30 tablet 11/24/18 Multivitamin,Therapeutic [Thera] 1 each PO DAILY #30 tab 11/24/18 Albuterol Sulfate Inhaler - [Ventolin HFA Inhaler -] 1 - 2 inh PO QID #1 inhaler 11/28/18 Bisacodyl [Bisacodyl -] 1 - 2 tab PO DAILY #30 tablet. 11/28/18 Bacitracin - [Bacitracin Topical Ointment -] 1 applic TP QID #1 tube 01/23/19 Clotrimazole [Lotrimin -] 1 applic TP BID #1 tube 01/23/19 Anemia: Yes (as a teen, had iron and transfusions) Asthma: Yes (ON MDI) Cancer: No Cardiac Disorders: No CVA: No COPD: No CHF: No Dementia: No Diabetes: No GI Disorders: Yes (several admissions for etoh-related pancreatitis, GERD) Disorders: No HTN: No Hypercholesterolemia: No Kidney Stones: No Liver Disease: Yes (hepatitis C, not treated ) Psychiatric Problems: Yes (bipolar) Seizures: No Thyroid Disease: No - Surgical History Abdominal Surgery: No Appendectomy: No Cardiac Surgery: No Cholecystectomy: No Lung Surgery: No Neurologic Surgery: No Orthopedic Surgery: No - Reproductive History (#): 13 Para: 11 PID: No - Immunization History Immunization Up to Date: No - Suicide/Smoking/Psychosocial Hx Smoking History: Unknown if ever smoked Have you smoked in the past 12 months: Yes Number of Cigarettes Smoked Daily: 5 Cigars Per Day: 0 'Breaking Loose' booklet given: 10/11/18 Hx Alcohol Use: No Drug/Substance Use Hx: No Substance Use Type: Alcohol, Marijuana Hx Substance Use Treatment: Yes ([facility] 05/17) *Physical Exam - Vital Signs Last Vital Signs Temp Pulse Resp BP Pulse Ox 98.5 F 88 18 117/75 96 02/14/19 15:02 02/14/19 15:02 02/14/19 15:02 02/14/19 15:02 02/14/19 15:02 Medical Decision Making - Medical Decision Making 02/14/19 15:32 Patient with alcohol intox seeking detox ED Course: will draw blood alcohol and send to [facility] *DC/Admit/Observation/Transfer Diagnosis at time of Disposition: Alcohol intoxication - Discharge Dispostion Condition at time of disposition: Fair Decision to Admit order: No - Referrals - Patient Instructions Printed Discharge Instructions: DI for Alcohol Abuse Additional Instructions: You were seen in the ED for alcohol intoxication and brought in from [facility]. You were evaluated with blood alcohol level and a physical exam. You are medically cleared to go to detox at [facility]. Return to the ED immediately if you experience nausea, vomiting, abdominal pain , chest pain, shortness of breath. - Post Discharge Activity
--- NOTE | 2019-02-14 17:22 | PDOC ---
Documentation entered by Gia Tong SCRIBE, acting as scribe for Wendy Hummel MD. Wendy Hummel MD: This documentation has been prepared by the Alycia leiva Amanda, SCRIBE, under my direction and personally reviewed by me in its entirety. I confirm that the documentation accurately reflects all work, treatment, procedures, and medical decision making performed by me. Attending Attestation - Resident Resident Name: Reema Augustin - ED Attending Attestation I have performed the following: I have examined & evaluated the patient, The case was reviewed & discussed with the resident, I agree w/resident's findings & plan, Exceptions are as noted - HPI HPI: 02/14/19 15:55 The patient is a 48 year old female with a significant past medical history of active Hep C, anemia, polysubstance abuse, pancreatitis, GERD, on methadone ( 25mg/day, last yesterday) who presents for alcohol intoxication and desire for detox at [facility]. She reports drinking 1 pint of vodka at 10AM today. She was actually at [facility] and was thought to be too intoxicated to be there She denies any trauma She denies any chest pain, shortness of breath, abdominal pain, nausea, vomiting , diarrhea, constipation. - Physicial Exam PE: 02/14/19 15:56 GENERAL: The patient is in no acute distress, ambulatory through out the ER with a steady gait, talking continuously to random staff members. HEAD: Normal with no signs of trauma. EYES: PERRLA, EOMI ENT: Ears normal, nares patent, oropharynx clear without exudates. Moist mucous membranes. NECK: Normal range of motion LUNGS: Breath sounds equal, clear to auscultation bilaterally. No wheezes, and no crackles. HEART: Regular rate and rhythm, normal S1 and S2 without murmur ABDOMEN: Soft, nontender, normoactive bowel sounds. EXTREMITIES: Normal range of motion, no edema. NEUROLOGICAL: Cranial nerves II through XII grossly intact. Normal speech. No focal neurological deficits. 02/14/19 17:04 - Medical Decision Making 02/14/19 17:05 48 yo F presenting to the ER from [facility] due to alcohol intoxication where she presented herself requesting detox pt has a h/o alcohol abuse and is currently on Methadone (medicated) Pt has no complaints, denies trauma 02/14/19 17:09 Laboratory Tests 02/14/19 14:11 Alcohol, Quantitative 284.4 H Pt is clinically NOT intoxicated Will return to [facility]
[2019-02-14 17:30] VITALS: BP 120/81; PULSE 82; TEMP 97.8
== END 2019-02-14 18:03 | disposition home or self-care (01) ==
LOC: JER 14:33
DX: F10.120 Alcohol abuse with intoxication, uncomplicated (principal); Z87.891 Personal history of nicotine dependence; B19.20 Unspecified viral hepatitis C without hepatic coma; F31.9 Bipolar disorder, unspecified; K21.9 Gastro-esophageal reflux disease without esophagitis
CPT/HCPCS: 36415; 80307; 99282-25

== ENCOUNTER 2019-02-15 10:33 | Inpatient (IN) | payer OTHER ==
[2019-02-15 11:02] VITALS: BMI 22.6
--- NOTE | 2019-02-15 11:35 | HP ---
CIWA Score Nausea/Vomitin Muscle Tremors: 2 Anxiety: 2 Agitation: 2 Paroxysmal Sweats: 1-Minimal Palms Moist Orientation: 0-Oriented Tacttile Disturbances: 1-Very Mild Itch/Numbness Auditory Disturbances: 1-Very Mild Visual Disturbances: 0-None Headache: 2-Mild CIWA-Ar Total Score: 13 - Admission Criteria OASAS Guidelines: Admission for Medically Managed Detox: Requires at least one of the followin. CIWA greater than 12 2. Seizures within the past 24 hours 3. Delirium tremens within the past 24 hours 4. Hallucinations within the past 24 hours 5. Acute intervention needed for co occurring medical disorder 6. Acute intervention needed for co occurring psychiatric disorder 7. Severe withdrawal that cannot be handled at a lower level of care (continued vomiting, continued diarrhea, abnormal vital signs) requiring intravenous medication and/or fluids 8. Admission ROS S - HPI Chief Complaint: i need help to stop drinking alcohol Allergies/Adverse Reactions: Allergies Allergy/AdvReac Type Severity Reaction Status Date / Time metoclopramide HCl Allergy Severe dystonic Verified 02/15/19 10:49 [From Reglan] reaction prochlorperazine maleate Allergy Severe DYSTONIA Verified 02/15/19 10:49 [From Compazine] haloperidol [From Haldol] Allergy Verified 02/15/19 10:49 mirtazapine [From Remeron] AdvReac Severe Difficulty Verified 02/15/19 10:49 Breathing History of Present Illness: this 48 years old female with alcohol dependence,seeking detox,withdrawal symptom,seen in er at [facility] yesterday,medically clear to return for detox multiple admissions in detox,last C to 10/14/18 hepatitis c under the care of provider weight loss mmtp 25 mgs/day,last medicated to day no significant period of sobriety plan to go to [facility] after detox nicotine dependence 3 cigarette/day Exam Limitations: No Limitations - Ebola screening Have you traveled outside of the country in the last 21 days: No Have you had contact with anyone from an Ebola affected area: No Do you have a fever: No - Review of Systems Constitutional: Loss of Appetite, Night Sweats, Changes in sleep, Weakness, Unintentional Wgt. Loss EENT: reports: Tearing, Nose Congestion Respiratory: reports: No Symptoms reported, Other (history of asthma) Cardiac: reports: No Symptoms Reported GI: reports: Nausea, Poor Appetite, Abdominal cramping : reports: No Symptoms Reported Musculoskeletal: reports: Back Pain, Muscle Pain Integumentary: reports: Dryness Neuro: reports: Tremors Endocrine: reports: No Symptoms Reported Hematology: reports: No Symptoms Reported Psychiatric: reports: No Sypmtoms Reported, Judgement Intact, Mood/Affect Appropiate, Orientated x3, other (schizophrenia) Patient History - Patient Medical History Hx Anemia: Yes (as a teen, had iron and transfusions) Hx Asthma: Yes (Pt is on MDI) Hx Chronic Obstructive Pulmonary Disease (COPD): No Hx Cancer: No Hx Cardiac Disorders: No Hx Congestive Heart Failure: No Hx Hypertension: No Hx Hypercholesterolemia: No Hx Pacemaker: No HX Cerebrovascular Accident: No Hx Seizures: No Hx Dementia: No Hx Diabetes: No Hx Gastrointestinal Disorders: Yes (pancreatitis) Hx Liver Disease: Yes (hepatitis C, not treated ) Hx Genitourinary Disorders: No Hx Sexually Transmitted Disorders: No Hx Renal Disease (ESRD): No Hx Thyroid Disease: No Hx Human Immunodeficiency Virus (HIV): No (last 01/16 negative) Hx Hepatitis C: Yes Hx Depression: Yes Hx Suicide Attempt: No Hx Bipolar Disorder: Yes (no med) Hx Schizophrenia: No Other Medical History: no suicidal,no homicidal - Patient Surgical History Past Surgical History: Yes Hx Neurologic Surgery: No Hx Cataract Extraction: No Hx Cardiac Surgery: No Hx Lung Surgery: No Hx Breast Surgery: No Hx Breast Biopsy: No Hx Abdominal Surgery: No Hx Appendectomy: No Hx Cholecystectomy: No Hx Genitourinary Surgery: No Hx Section: Yes (x 2) Hx Orthopedic Surgery: No Hx Hysterectomy: No Other Surgical History: age 9 - abscess/tumor, benign per pt Anesthesia Reaction: No - PPD History Previous Implant?: Yes Documented Results: Negative w/o proof Implanted On Prior R Admission?: Yes Date: 11/07/17 Results: 0mm PPD to be Administered?: Yes - Reproductive History Patient is a Female of Child Bearing Age (11 -55 yrs old): Yes Last Menstrual Period: 10/04/18 Patient : No - Smoking Cessation Smoking history: Current every day smoker Have you smoked in the past 12 months: Yes Aproximately how many cigarettes per day: 5 Cigars Per Day: 0 Hx Chewing Tobacco Use: No Initiated information on smoking cessation: Yes 'Breaking Loose' booklet given: 02/15/19 - Substance & Tx. History Hx Alcohol Use: Yes Hx Substance Use: No Substance Use Type: Alcohol Hx Substance Use Treatment: Yes ([facility] 10/11/18 to 10/14/18) - Substances abused Alcohol Substance route: Oral Frequency: Daily Amount used: 1 quart of vodka Age of first use: 16 Date of last use: 02/15/19 Family Disease History - Family Disease History Family Disease History: Diabetes: Grandparent (mgm - dm, htn), Other: Father ( : CVA / alcoholic liver disease), Mother (alive, well), Brother (5 - 1 with AIDS), Sister (4 - 1 with THROAT CA), Son (4), Daughter ( 7) Admission Physical Exam [facility] - Vital Signs Vital Signs: Vital Signs - 24 hr 02/15/19 10:43 Temperature 98.1 F Pulse Rate 80 Respiratory 18 Rate Blood Pressure 125/90 - Physical General Appearance: Yes: Moderate Distress, Tremorous, Irritable, Sweating, Anxious HEENTM: Yes: Normal ENT Inspection, Pharynx Normal Respiratory: Yes: Lungs Clear, Normal Breath Sounds, No Respiratory Distress, Other (asthma) Neck: Yes: Within Normal Limits, Supple, Trachea in good position Breast: Yes: Breast Exam Deferred Cardiology: Yes: Within Normal Limits, Regular Rhythm, Regular Rate, S1, S2 Abdominal: Yes: Within Normal Limits, Normal Bowel Sounds, Non Tender, Soft Genitourinary: Yes: Within Normal Limits Back: Yes: Muscle Spasm Musculoskeletal: Yes: Back pain, Muscle Pain Extremities: Yes: Tremors 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 NML intact, Fully Oriented, Alert, Motor Strength 5/5 Integumentary: Yes: Dry Lymphatic: Yes: Within Normal Limits - Diagnostic (1) Alcohol dependence with uncomplicated withdrawal Current Visit: No Status: Chronic (2) Dehydration Current Visit: No Status: Acute (3) Alcohol dependence with uncomplicated intoxication Current Visit: No Status: Chronic (4) Cannabis dependence, uncomplicated Current Visit: No Status: Chronic (5) Hepatitis C Current Visit: No Status: Chronic Qualifiers: Viral hepatitis chronicity: chronic Hepatic coma status: without hepatic coma Qualified Code(s): B18.2 - Chronic viral hepatitis C Comment: would like to consider a 28-day program, does not seem to think she will start a longer-term rehab program any time soon. we discussed the concern that she has had several er visits for n/v following etoh use. she states she is aware that once hcv tx starts she must not miss any doses for optimal response. she is very motivated to complete tx. will update labs - she would prefer to rtc tomorrow for blood draw. (6) History of pancreatitis Current Visit: No Status: Chronic Comment: advised to go to er if abd pains , n/v. (7) Nicotine dependence Current Visit: No Status: Chronic Qualifiers: Nicotine product type: cigarettes Substance use status: uncomplicated Qualified Code(s): F17.210 - Nicotine dependence, cigarettes, uncomplicated (8) Bipolar disorder Current Visit: Yes Status: Acute (9) Methadone maintenance therapy patient Current Visit: Yes Status: Acute Cleared for Admission [facility] - Detox or Rehab S Level of Care: Medically Managed Detox Regimen/Protocol: Librium Breathalyzer - Breathalyzer Breathalyzer: 0.186 POC Urine test - Result Urine Test Results: Positive - Line present Urine Drug Screen - Test Device Lot number: [id number] Expiration date: 01/28/20 - Control Is test valid?: Yes - Results Drug screen NEGATIVE: No Urine drug screen results: THC-Marijuana, MTD-Methadone, BZO-Benzodiazepines Inpatient Rehab Admission - Rehab Decision to Admit Inpatient rehab admission?: No
[2019-02-15] MEDS ORDERED: MAGNESIUM CITRATE 300 ML BOTTLE PO PRN (11:49)
[2019-02-15] MEDS ORDERED: ACETAMINOPHEN 325 MG TABLET (FP) PO PRN ×2 (11:49)
[2019-02-15] MEDS ORDERED: MAGNESIUM HYDROX 2400MG/30ML ORAL SUSPENSION 30 ML CUP PO PRN (11:49)
[2019-02-15] MEDS ORDERED: MENTHOL/PHENOL 1 EACH UD MM PRN (11:49)
[2019-02-15] MEDS ORDERED: BISMUTH SUBSALICYLATE 262 MG/15 ML BTL PO PRN (11:49)
[2019-02-15] MEDS ORDERED: MAG HYDROX/AL HYDROX/SIMETH 30 ML UNIT-DOSE CUP PO PRN (11:49)
[2019-02-15] MEDS ORDERED: PANTOPRAZOLE 40 MG TABLET (FP) PO PRN (11:52)
[2019-02-15] MEDS: chlordiazePOXIDE HCL 25 MG CAPSULE PO PRN (12:28)
[2019-02-15 16:39] LABS: HEMATOCRIT 36.8 % (32.4-45.2); HEMOGLOBIN 12.7 GM/dL (10.7-15.3); MCH 34.9 pg (25.7-33.7); MCHC 34.4 g/dl (32.0-36.0); MEAN CELL VOLUME 101.5 fl (80-96); MEAN PLT VOLUME 10.1 fl (7.5-11.1); PLATELET COUNT 119 K/MM3 (134-434); RBC 3.62 M/mm3 (3.60-5.2); RDW 13.1 % (11.6-15.6); WHITE BLOOD COUNT 5.7 K/mm3 (4.0-10.0)
[2019-02-15 16:46] LABS: ALK PHOS 73 U/L (45-117); ANION GAP 8 MMOL/L (8-16); BILIRUBIN,TOTAL 0.4 mg/dL (0.2-1); BLOOD UREA NITROGEN 11 mg/dL (7-18); CALCIUM 8.6 mg/dL (8.5-10.1); CHLORIDE 108 mmol/L (98-107); CO2 25 mmol/L (21-32); CREATININE 0.8 mg/dL (0.55-1.3); GLUCOSE,RANDOM 121 mg/dL (74-106); POTASSIUM 3.9 mmol/L (3.5-5.1); SGOT/AST 44 U/L (15-37); SGPT/ALT 42 U/L (13-61); SODIUM 141 mmol/L (136-145)
[2019-02-15 17:17] LABS: URINE APPEARANCE CLEAR; URINE BILIRUBIN NEGATIVE (NEGATIVE); URINE COLOR YELLOW; URINE GLUCOSE (UA) NEGATIVE (NEGATIVE); URINE KETONE NEGATIVE (NEGATIVE); URINE LEUK ESTERASE NEGATIVE (NEGATIVE); URINE NITRITE NEGATIVE (NEGATIVE); URINE PROTEIN NEGATIVE (NEGATIVE); URINE UROBILINOGEN 0.2 mg/dL (0.2-1.0)
[2019-02-15] MEDS: chlordiazePOXIDE HCL 25 MG CAPSULE PO SCH ×2 (17:41→22:15)
[2019-02-15] MEDS: hydrOXYzine PAMOATE 25 MG CAPSULE (FP) PO PRN (22:15)
[2019-02-15] MEDS: THIAMINE HCL 100 MG TABLET (FP) PO SCH (22:15)
[2019-02-16] MEDS ORDERED: METHADONE HCL 5 MG TABLET ONE (04:46)
[2019-02-16] MEDS ORDERED: METHADONE HCL 10 MG TABLET ONE (04:46)
[2019-02-16] MEDS: METHADONE 20 MG, METHADONE 5 MG PO SCH (05:22)
[2019-02-16] MEDS: chlordiazePOXIDE HCL 25 MG CAPSULE PO SCH ×4 (05:23→22:34)
[2019-02-16] MEDS ORDERED: METHADONE HCL 10 MG TABLET PO SCH (06:00)
[2019-02-16] MEDS: hydrOXYzine PAMOATE 25 MG CAPSULE (FP) PO PRN (07:26)
[2019-02-16] MEDS ORDERED: guaiFENesin 200 MG/10 ML 10 ML UNIT-DOSE CUPS PO PRN (09:12)
--- NOTE | 2019-02-16 09:13 | PN ---
S CIWA - CIWA Score Nausea/Vomitin-No Nausea/No Vomiting Muscle Tremors: 3 Anxiety: 3 Agitation: 0-Normal Activity Paroxysmal Sweats: 2 Orientation: 0-Oriented Tacttile Disturbances: 1-Very Mild Itch/Numbness Auditory Disturbances: 0-None Visual Disturbances: 0-None Headache: 3-Moderate CIWA-Ar Total Score: 12 S Progress Note (SOAP) Subjective: c/o of interrupted sleep, shakes, chills, headache, nasal congestion, cough Objective: 02/16/19 09:13 Vital Signs Temperature 98.1 F 02/16/19 06:00 Pulse Rate 78 02/16/19 08:00 Respiratory Rate 18 02/16/19 08:00 Blood Pressure 126/89 02/16/19 06:00 O2 Sat by Pulse Oximetry (%) Laboratory Last Values WBC 5.7 K/mm3 (4.0-10.0) 02/15/19 11:45 RBC 3.62 M/mm3 (3.60-5.2) 02/15/19 11:45 Hgb 12.7 GM/dL (10.7-15.3) 02/15/19 11:45 Hct 36.8 % (32.4-45.2) 02/15/19 11:45 MCV 101.5 fl (80-96) H 02/15/19 11:45 MCH 34.9 pg (25.7-33.7) H 02/15/19 11:45 MCHC 34.4 g/dl (32.0-36.0) 02/15/19 11:45 RDW 13.1 % (11.6-15.6) 02/15/19 11:45 Plt Count 119 K/MM3 (134-434) L 02/15/19 11:45 MPV 10.1 fl (7.5-11.1) 02/15/19 11:45 Sodium 141 mmol/L (136-145) 02/15/19 11:45 Potassium 3.9 mmol/L (3.5-5.1) 02/15/19 11:45 Chloride 108 mmol/L (98-107) H 02/15/19 11:45 Carbon Dioxide 25 mmol/L (21-32) 02/15/19 11:45 Anion Gap 8 MMOL/L (8-16) 02/15/19 11:45 BUN 11 mg/dL (7-18) 02/15/19 11:45 Creatinine 0.8 mg/dL (0.55-1.3) 02/15/19 11:45 Creat Clearance w eGFR 76.88 (>60) 02/15/19 11:45 Random Glucose 121 mg/dL (74-106) H 02/15/19 11:45 Calcium 8.6 mg/dL (8.5-10.1) 02/15/19 11:45 Total Bilirubin 0.4 mg/dL (0.2-1) 02/15/19 11:45 AST 44 U/L (15-37) H 02/15/19 11:45 ALT 42 U/L (13-61) 02/15/19 11:45 Alkaline Phosphatase 73 U/L (45-117) 02/15/19 11:45 Total Protein 8.0 g/dl (6.4-8.2) 02/15/19 11:45 Albumin 4.0 g/dl (3.4-5.0) 02/15/19 11:45 Urine Color Yellow 02/15/19 13:00 Urine Appearance Clear 02/15/19 13:00 Urine pH 7.0 (5.0-8.0) 02/15/19 13:00 Ur Specific [place] 1.004 (1.010-1.035) L 02/15/19 13:00 Urine Protein Negative (NEGATIVE) 02/15/19 13:00 Urine Glucose (UA) Negative (NEGATIVE) 02/15/19 13:00 Urine Ketones Negative (NEGATIVE) 02/15/19 13:00 Urine Blood Negative (NEGATIVE) 02/15/19 13:00 Urine Nitrite Negative (NEGATIVE) 02/15/19 13:00 Urine Bilirubin Negative (NEGATIVE) 02/15/19 13:00 Urine Urobilinogen 0.2 mg/dL (0.2-1.0) 02/15/19 13:00 Ur Leukocyte Esterase Negative (NEGATIVE) 02/15/19 13:00 AOx3 no acute distress + cough no adventitious breath sounds full ROM, ambulating in the unit withdrawal sx continue detox increase po fluids continue to monitor 02/16/19 14:00
--- NOTE | 2019-02-16 09:24 | PN ---
Psychiatric Progress Note Vital Signs: Vital Signs Period Temp Pulse Resp BP Sys/Moore Pulse Ox Last 24 Hr 98.1 F-99.0 F 60-88 18-19 107-126/77-90 Current Medications: Active Medications Generic Name Dose Route Start Last Admin Trade Name Freq PRN Reason Stop Dose Admin Acetaminophen 650 mg 02/15/19 11:49 Tylenol - PO Q6H PRN PAIN LEVEL 4 - 6 Acetaminophen 650 mg 02/15/19 11:49 Tylenol - PO Q6H PRN FEVER Al Hydroxide/Mg Hydroxide 30 ml 02/15/19 11:49 Mylanta Oral Suspension - PO Q6H PRN DYSPEPSIA Albuterol Sulfate 2 puff 02/15/19 11:52 Ventolin Hfa Inhaler - IH Q4H PRN ASTHMA Bismuth Subsalicylate 30 ml 02/15/19 11:49 Pepto-Bismol Liquid - PO Q1H PRN DIARRHEA Chlordiazepoxide HCl 10 mg 02/17/19 17:00 Librium - PO 02/18/19 11:01 [id number] GONZALEZ Chlordiazepoxide HCl 10 mg 02/18/19 17:00 Librium - PO 02/19/19 17:01 Q12H GONZALEZ Chlordiazepoxide HCl 10 mg 02/17/19 17:00 Librium - PO 02/18/19 17:00 Q4H PRN WITHDRAWAL(CONT SUBST) Chlordiazepoxide HCl 50 mg 02/15/19 17:00 02/16/19 05:23 Librium - PO 02/16/19 11:01 50 mg [id number] GONZALEZ Administration Chlordiazepoxide HCl 25 mg 02/16/19 17:00 Librium - PO 02/17/19 11:01 [id number] GONZALEZ Chlordiazepoxide HCl 25 mg 02/15/19 11:49 02/15/19 12:28 Librium - PO 02/17/19 17:00 25 mg Q4H PRN Administration WITHDRAWAL(CONT SUBST) Eucalyptus/Menthol/Phenol/Sorbitol 1 each 02/15/19 11:49 Cepastat Lozenge - MM 02/21/19 11:49 Q4H PRN SORE THROAT Guaifenesin 10 ml 02/16/19 09:12 Robitussin - PO Q6H PRN COUGH Hydroxyzine Pamoate 25 mg 02/15/19 11:49 02/16/19 07:26 Vistaril - PO 02/21/19 11:49 25 mg Q6H PRN Administration For Anxiety Ibuprofen 400 mg 02/15/19 11:49 Motrin - PO Q6H PRN PAIN LEVEL 1 - 3 Magnesium Citrate 300 ml 02/15/19 11:49 Citroma - PO Q48H PRN CONSTIPATION Magnesium Hydroxide 30 ml 02/15/19 11:49 Milk Of Magnesia - PO PRN PRN CONSTIPATION Melatonin 5 mg 02/15/19 11:49 Melatonin PO HS PRN INSOMNIA Methadone HCl 20 mg/ Methadone 25 mg 02/16/19 06:00 02/16/19 05:22 HCl 5 mg PO 02/22/19 06:01 25 mg DAILY@0600 [facility] Administration Methocarbamol 500 mg 02/15/19 11:49 Robaxin - PO 02/21/19 11:49 Q6H PRN MUSCLE SPASMS Nicotine Polacrilex 2 mg 02/15/19 11:49 Nicorette Gum - BUC Q2H PRN NICOTINE REPLACEMENT RX Pantoprazole Sodium 40 mg 02/15/19 11:52 02/15/19 12:28 Protonix - PO 40 mg DAILY PRN Administration DYSPEPSIA Multivit/Folic Acid/Iron 1 tab 02/16/19 10:00 Vitamins (Sjr) - PO DAILY GONZALEZ Thiamine HCl 100 mg 02/15/19 22:00 02/15/19 22:15 Vitamin B1 - PO 100 mg HS GONZALEZ Administration
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
[2019-02-16] MEDS: PRENATAL VITAMINS W/ FOLIC ACID TABLET (FP) PO SCH (10:44)
[2019-02-16] MEDS: chlordiazePOXIDE HCL 25 MG CAPSULE PO PRN (15:29)
[2019-02-16] MEDS: hydrOXYzine PAMOATE 50 MG CAPSULE (FP) PO PRN ×2 (18:16→22:35)
[2019-02-16] MEDS: THIAMINE HCL 100 MG TABLET (FP) PO SCH (22:33)
[2019-02-16] MEDS: MELATONIN 5 MG TABLETS PO PRN (22:36)
[2019-02-16] MEDS: METHOCARBAMOL 500 MG TABLET PO PRN (22:40)
[2019-02-17] MEDS ORDERED: METHADONE HCL 5 MG TABLET ONE (04:33)
[2019-02-17] MEDS ORDERED: METHADONE HCL 10 MG TABLET ONE (04:33)
[2019-02-17] MEDS: chlordiazePOXIDE HCL 25 MG CAPSULE PO SCH ×2 (05:16→10:11)
[2019-02-17] MEDS: METHADONE 20 MG, METHADONE 5 MG PO SCH (05:16)
[2019-02-17] MEDS: hydrOXYzine PAMOATE 50 MG CAPSULE (FP) PO PRN ×2 (05:18→20:04)
[2019-02-17] MEDS: NICOTINE POLACRILEX 2 MG GUM BUC PRN (06:52)
[2019-02-17] MEDS: PRENATAL VITAMINS W/ FOLIC ACID TABLET (FP) PO SCH (10:10)
--- NOTE | 2019-02-17 16:27 | PN ---
[facility] Progress Note Note: Psychiatry Attending's note (follow-up) : Called by nursing staff to enter order for seroquel. Chart reviewed. Dr Arteaga's note of 02/16/19 : read. Patient has agreed to be on seroquel 200 mg po hs. As per treatment plan. Met with the patient. In the presence of female staff, Kp. Side effects/benefits revisited with the patient. Ms Mao is in agreement with this plan of care. Consent (verbal) given to .
[2019-02-17] MEDS ORDERED: chlordiazePOXIDE HCL 10 MG CAPSULE PO PRN (17:00)
--- NOTE | 2019-02-17 17:29 | PN ---
S CIWA - CIWA Score Nausea/Vomitin-No Nausea/No Vomiting Muscle Tremors: None Anxiety: 2 Agitation: 0-Normal Activity Paroxysmal Sweats: 4-Forehead w/Sweat Beads Orientation: 0-Oriented Tacttile Disturbances: 0-None Auditory Disturbances: 0-None Visual Disturbances: 0-None Headache: 2-Mild CIWA-Ar Total Score: 8 S Progress Note (SOAP) Subjective: interrupted sleep, chills headache nasal congestion cough Objective: 02/17/19 17:26 Vital Signs 02/17/19 02/17/19 10:07 14:43 Temperature 97.3 F L 98.0 F Pulse Rate 79 86 Respiratory 18 18 Rate Blood Pressure 127/67 102/80 Laboratory Last Values WBC 5.7 K/mm3 (4.0-10.0) 02/15/19 11:45 RBC 3.62 M/mm3 (3.60-5.2) 02/15/19 11:45 Hgb 12.7 GM/dL (10.7-15.3) 02/15/19 11:45 Hct 36.8 % (32.4-45.2) 02/15/19 11:45 MCV 101.5 fl (80-96) H 02/15/19 11:45 MCH 34.9 pg (25.7-33.7) H 02/15/19 11:45 MCHC 34.4 g/dl (32.0-36.0) 02/15/19 11:45 RDW 13.1 % (11.6-15.6) 02/15/19 11:45 Plt Count 119 K/MM3 (134-434) L 02/15/19 11:45 MPV 10.1 fl (7.5-11.1) 02/15/19 11:45 Sodium 141 mmol/L (136-145) 02/15/19 11:45 Potassium 3.9 mmol/L (3.5-5.1) 02/15/19 11:45 Chloride 108 mmol/L (98-107) H 02/15/19 11:45 Carbon Dioxide 25 mmol/L (21-32) 02/15/19 11:45 Anion Gap 8 MMOL/L (8-16) 02/15/19 11:45 BUN 11 mg/dL (7-18) 02/15/19 11:45 Creatinine 0.8 mg/dL (0.55-1.3) 02/15/19 11:45 Creat Clearance w eGFR 76.88 (>60) 02/15/19 11:45 Random Glucose 121 mg/dL (74-106) H 02/15/19 11:45 Calcium 8.6 mg/dL (8.5-10.1) 02/15/19 11:45 Total Bilirubin 0.4 mg/dL (0.2-1) 02/15/19 11:45 AST 44 U/L (15-37) H 02/15/19 11:45 ALT 42 U/L (13-61) 02/15/19 11:45 Alkaline Phosphatase 73 U/L (45-117) 02/15/19 11:45 Total Protein 8.0 g/dl (6.4-8.2) 02/15/19 11:45 Albumin 4.0 g/dl (3.4-5.0) 02/15/19 11:45 Urine Color Yellow 02/15/19 13:00 Urine Appearance Clear 02/15/19 13:00 Urine pH 7.0 (5.0-8.0) 02/15/19 13:00 Ur Specific [place] 1.004 (1.010-1.035) L 02/15/19 13:00 Urine Protein Negative (NEGATIVE) 02/15/19 13:00 Urine Glucose (UA) Negative (NEGATIVE) 02/15/19 13:00 Urine Ketones Negative (NEGATIVE) 02/15/19 13:00 Urine Blood Negative (NEGATIVE) 02/15/19 13:00 Urine Nitrite Negative (NEGATIVE) 02/15/19 13:00 Urine Bilirubin Negative (NEGATIVE) 02/15/19 13:00 Urine Urobilinogen 0.2 mg/dL (0.2-1.0) 02/15/19 13:00 Ur Leukocyte Esterase Negative (NEGATIVE) 02/15/19 13:00 POC Urine HCG, Qual Negative 02/15/19 11:11 RPR Titer Nonreactive (NONREACTIVE) 02/15/19 11:45 Labs reviewed Assessment: 02/17/19 17:26 AOX3 in no respiratory distress non productive cough full rom ambulating in the unit Plan: continue detox increase fluids continue to monitor cough syrup prn
--- NOTE | 2019-02-17 17:30 | PN ---
[facility] CIWA - CIWA Score Nausea/Vomitin-No Nausea/No Vomiting Muscle Tremors: None Anxiety: 1-Mildly Anxious Agitation: 0-Normal Activity Paroxysmal Sweats: 4-Forehead w/Sweat Beads Orientation: 0-Oriented Tacttile Disturbances: 0-None Auditory Disturbances: 0-None Visual Disturbances: 0-None Headache: 2-Mild CIWA-Ar Total Score: 7 BHS Progress Note (SOAP) Subjective: interrupted sleep, chills, headache, nasal congestion, cough
[2019-02-17] MEDS: chlordiazePOXIDE HCL 10 MG CAPSULE PO SCH ×2 (17:49→22:59)
[2019-02-17] MEDS: IBUPROFEN 400 MG TABLET (FP) PO PRN (17:50)
[2019-02-17] MEDS: QUEtiapine FUMARATE 200 MG TABLET PO SCH (22:59)
[2019-02-17] MEDS: METHOCARBAMOL 500 MG TABLET PO PRN (23:00)
[2019-02-17] MEDS: THIAMINE HCL 100 MG TABLET (FP) PO SCH (23:01)
[2019-02-17] MEDS: ALBUTEROL SO4 8 GM HFA INHALER IH PRN (23:05)
[2019-02-18] MEDS: hydrOXYzine PAMOATE 50 MG CAPSULE (FP) PO PRN ×2 (02:29→22:05)
[2019-02-18] MEDS ORDERED: METHADONE HCL 5 MG TABLET ONE (04:04)
[2019-02-18] MEDS ORDERED: METHADONE HCL 10 MG TABLET ONE (04:04)
[2019-02-18] MEDS: METHADONE 20 MG, METHADONE 5 MG PO SCH (05:03)
[2019-02-18] MEDS: chlordiazePOXIDE HCL 10 MG CAPSULE PO SCH ×3 (05:03→18:38)
[2019-02-18] MEDS: NICOTINE POLACRILEX 2 MG GUM BUC PRN ×2 (05:14→10:08)
[2019-02-18] MEDS: PRENATAL VITAMINS W/ FOLIC ACID TABLET (FP) PO SCH (10:08)
[2019-02-18] MEDS: METHOCARBAMOL 500 MG TABLET PO PRN ×2 (10:08→22:06)
[2019-02-18] MEDS: GABAPENTIN 100 MG CAPSULE (FP) PO SCH ×2 (13:15→22:06)
--- NOTE | 2019-02-18 17:11 | PN ---
[facility] CIWA - CIWA Score Nausea/Vomitin-No Nausea/No Vomiting Muscle Tremors: 2 Anxiety: 2 Agitation: 1-Slight > Activity Paroxysmal Sweats: 2 Orientation: 0-Oriented Tacttile Disturbances: 0-None Auditory Disturbances: 0-None Visual Disturbances: 0-None Headache: 0-None Present CIWA-Ar Total Score: 7 S Progress Note (SOAP) Subjective: Anxious, muscle cramps, restless, interrupted sleep, nausea. Patient requesting inpatient rehab then alf rehab. As per patient, she was mandated by [facility] for inpatient rehab. Patient stated that she takes gabapentin 100mg PO TID at home for anxiety and requesting to resume it (ordered as per patient's request). Objective: 02/18/19 17:09 Last Vital Signs Temp Pulse Resp BP Pulse Ox 97.3 F L 100 H 18 101/65 02/18/19 14:32 02/18/19 14:32 02/18/19 14:32 02/18/19 14:32 Laboratory Tests 02/15/19 02/15/19 02/15/19 11:11 11:45 11:45 WBC 5.7 RBC 3.62 Hgb 12.7 Hct 36.8 MCV 101.5 H MCH 34.9 H MCHC 34.4 RDW 13.1 Plt Count 119 L MPV 10.1 Sodium Potassium Chloride Carbon Dioxide Anion Gap BUN Creatinine Creat Clearance w eGFR Random Glucose Calcium Total Bilirubin AST ALT Alkaline Phosphatase Total Protein Albumin Urine Color Urine Appearance Urine pH Ur Specific [place] Urine Protein Urine Glucose (UA) Urine Ketones Urine Blood Urine Nitrite Urine Bilirubin Urine Urobilinogen Ur Leukocyte Esterase POC Urine HCG, Qual Negative RPR Titer Nonreactive 02/15/19 02/15/19 11:45 13:00 WBC RBC Hgb Hct MCV MCH MCHC RDW Plt Count MPV Sodium 141 Potassium 3.9 Chloride 108 H Carbon Dioxide 25 Anion Gap 8 BUN 11 Creatinine 0.8 Creat Clearance w eGFR 76.88 Random Glucose 121 H Calcium 8.6 Total Bilirubin 0.4 AST 44 H ALT 42 Alkaline Phosphatase 73 Total Protein 8.0 Albumin 4.0 Urine Color Yellow Urine Appearance Clear Urine pH 7.0 Ur Specific [place] 1.004 L Urine Protein Negative Urine Glucose (UA) Negative Urine Ketones Negative Urine Blood Negative Urine Nitrite Negative Urine Bilirubin Negative Urine Urobilinogen 0.2 Ur Leukocyte Esterase Negative POC Urine HCG, Qual RPR Titer Labs reviewed: serum glucose 121 Assessment: 02/18/19 17:10 Withdrawal symptoms Noted with hyperglycemia Plan: Continue detox Encouraged PO water hydration Hyperglycemia: most likely r/t withdrawal, repeat fasting glucose in AM
[2019-02-18] MEDS: QUEtiapine FUMARATE 200 MG TABLET PO SCH (22:06)
[2019-02-18] MEDS: THIAMINE HCL 100 MG TABLET (FP) PO SCH (22:06)
[2019-02-19] MEDS ORDERED: METHADONE HCL 5 MG TABLET ONE (04:26)
[2019-02-19] MEDS ORDERED: METHADONE HCL 10 MG TABLET ONE (04:27)
[2019-02-19] MEDS: METHADONE 20 MG, METHADONE 5 MG PO SCH (05:21)
[2019-02-19] MEDS: chlordiazePOXIDE HCL 10 MG CAPSULE PO SCH ×2 (05:22→17:11)
[2019-02-19] MEDS: GABAPENTIN 100 MG CAPSULE (FP) PO SCH ×3 (05:22→22:10)
[2019-02-19] MEDS: NICOTINE POLACRILEX 2 MG GUM BUC PRN ×2 (05:56→17:52)
[2019-02-19] MEDS: METHOCARBAMOL 500 MG TABLET PO PRN ×2 (06:38→17:26)
[2019-02-19] MEDS: PRENATAL VITAMINS W/ FOLIC ACID TABLET (FP) PO SCH (10:19)
[2019-02-19] MEDS: hydrOXYzine PAMOATE 50 MG CAPSULE (FP) PO PRN (10:21)
--- NOTE | 2019-02-19 14:52 | PN ---
[facility] Progress Note Note: Patient complains of feeling anxious. She told law writer that she needs something during the day and Vistaril that she is currently on is not helping. Patient will be ordered Seroquel 25 mg po Q 4hrs prn for anxiety in addition to Seroquel 200 mg po HS she is currently on.
[2019-02-19] MEDS: QUEtiapine FUMARATE 25 MG TABLET (FP) PO PRN ×2 (15:15→20:01)
--- NOTE | 2019-02-19 15:17 | PN ---
S CIWA - CIWA Score Nausea/Vomitin-No Nausea/No Vomiting Muscle Tremors: None Anxiety: 3 Agitation: 3 Paroxysmal Sweats: No Perspiration Orientation: 0-Oriented Tacttile Disturbances: 0-None Auditory Disturbances: 0-None Visual Disturbances: 0-None Headache: 0-None Present CIWA-Ar Total Score: 6 BHS Progress Note (SOAP) Subjective: PATIENT C/O ANXIETY, RESTLESSNESS AND SORE THROAT. Objective: 02/19/19 15:15 Laboratory Tests 02/15/19 02/15/19 02/15/19 11:11 11:45 11:45 WBC 5.7 RBC 3.62 Hgb 12.7 Hct 36.8 MCV 101.5 H MCH 34.9 H MCHC 34.4 RDW 13.1 Plt Count 119 L MPV 10.1 Sodium Potassium Chloride Carbon Dioxide Anion Gap BUN Creatinine Creat Clearance w eGFR Random Glucose Fasting Glucose Calcium Total Bilirubin AST ALT Alkaline Phosphatase Total Protein Albumin Urine Color Urine Appearance Urine pH Ur Specific [place] Urine Protein Urine Glucose (UA) Urine Ketones Urine Blood Urine Nitrite Urine Bilirubin Urine Urobilinogen Ur Leukocyte Esterase POC Urine HCG, Qual Negative RPR Titer Nonreactive 02/15/19 02/15/19 02/19/19 11:45 13:00 07:45 WBC RBC Hgb Hct MCV MCH MCHC RDW Plt Count MPV Sodium 141 Potassium 3.9 Chloride 108 H Carbon Dioxide 25 Anion Gap 8 BUN 11 Creatinine 0.8 Creat Clearance w eGFR 76.88 Random Glucose 121 H Fasting Glucose 90 Calcium 8.6 Total Bilirubin 0.4 AST 44 H ALT 42 Alkaline Phosphatase 73 Total Protein 8.0 Albumin 4.0 Urine Color Yellow Urine Appearance Clear Urine pH 7.0 Ur Specific [place] 1.004 L Urine Protein Negative Urine Glucose (UA) Negative Urine Ketones Negative Urine Blood Negative Urine Nitrite Negative Urine Bilirubin Negative Urine Urobilinogen 0.2 Ur Leukocyte Esterase Negative POC Urine HCG, Qual RPR Titer Vital Signs Temperature 97.0 F L 02/19/19 13:44 Pulse Rate 104 H 02/19/19 13:44 Respiratory Rate 18 02/19/19 13:44 Blood Pressure 105/67 02/19/19 13:44 O2 Sat by Pulse Oximetry (%) PE: ALERT AND ORIENTED X 3 SKIN WARM AND DRY +PERRLA, EOMS INTACT BL ORAL MUCOSA MOIST, PHARYNX MILDLY INFLAMED, NO VISIBLE EXUDATE EXT FULL ROM, NO TREMORS ANXIOUS Assessment: 02/19/19 15:16 WITHDRAWAL SX Plan: CONTINUE DETOX ORAL FLUIDS ENCOURAGED THROAT CULTURE FOR D/C TO REHAB IN AM TO REVELATIONS
[2019-02-19] MEDS: diphenhydrAMINE HCL 25 MG CAPSULE (FP) PO PRN (18:57)
[2019-02-19] MEDS: MELATONIN 5 MG TABLETS PO PRN (22:10)
[2019-02-19] MEDS: IBUPROFEN 400 MG TABLET (FP) PO PRN (22:10)
[2019-02-19] MEDS: THIAMINE HCL 100 MG TABLET (FP) PO SCH (22:11)
[2019-02-19] MEDS: QUEtiapine FUMARATE 200 MG TABLET PO SCH (22:11)
[2019-02-19] MEDS: ALBUTEROL SO4 8 GM HFA INHALER IH PRN (22:11)
[2019-02-20] MEDS: QUEtiapine FUMARATE 25 MG TABLET (FP) PO PRN ×2 (01:01→10:57)
[2019-02-20] MEDS ORDERED: METHADONE HCL 5 MG TABLET ONE (04:08)
[2019-02-20] MEDS ORDERED: METHADONE HCL 10 MG TABLET ONE (04:09)
[2019-02-20] MEDS: GABAPENTIN 100 MG CAPSULE (FP) PO SCH (06:18)
[2019-02-20] MEDS: METHADONE 20 MG, METHADONE 5 MG PO SCH (06:18)
[2019-02-20] MEDS: METHOCARBAMOL 500 MG TABLET PO PRN (06:18)
[2019-02-20] MEDS: diphenhydrAMINE HCL 25 MG CAPSULE (FP) PO PRN (06:21)
[2019-02-20 06:44] VITALS: BP 103/63; PULSE 83; TEMP 98.8
[2019-02-20] MEDS: NICOTINE POLACRILEX 2 MG GUM BUC PRN (09:15)
[2019-02-20] MEDS: PRENATAL VITAMINS W/ FOLIC ACID TABLET (FP) PO SCH (09:16)
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
[2019-02-20] MEDS ORDERED: diphenhydrAMINE HCL 25 MG CAPSULE (FP) PO PRN (10:49)
== END 2019-02-20 11:35 | disposition home or self-care (01) | DRG 773 ==
LOC: YASAS 10:33 → Y6N 11:14
PROVIDERS: ADMIT Surgery; ATTEND Surgery
PROC: HZ2ZZZZ Detoxification Services for Substance Abuse Treatment (ICD-10-PCS; principal; 2019-02-15)
DX: F10.230 Alcohol dependence with withdrawal, uncomplicated (principal); F10.220 Alcohol dependence with intoxication, uncomplicated; F11.20 Opioid dependence, uncomplicated; F12.20 Cannabis dependence, uncomplicated; F17.210 Nicotine dependence, cigarettes, uncomplicated; F19.24 Other psychoactive substance dependence with psychoactive substance-induced mood disorder; F19.280 Other psychoactive substance dependence with psychoactive substance-induced anxiety disorder; F19.282 Other psychoactive substance dependence with psychoactive substance-induced sleep disorder; F31.9 Bipolar disorder, unspecified; F39 Unspecified mood [affective] disorder; F43.10 Post-traumatic stress disorder, unspecified; E86.0 Dehydration; J45.909 Unspecified asthma, uncomplicated; D64.9 Anemia, unspecified; R03.0 Elevated blood-pressure reading, without diagnosis of hypertension; K21.9 Gastro-esophageal reflux disease without esophagitis; B18.2 Chronic viral hepatitis C; R73.9 Hyperglycemia, unspecified; R05 Cough; R63.4 Abnormal weight loss; Z88.8 Allergy status to other drugs, medicaments and biological substances; Z87.19 Personal history of other diseases of the digestive system
CPT/HCPCS: 36415; 80053; 80307; 81003; 81025; 82947; 85027; 86593; 99282-25

== ENCOUNTER 2019-04-14 19:48 | Emergency (ER) | payer OTHER ==
[2019-04-14 20:02] VITALS: BMI 28.3
--- NOTE | 2019-04-14 20:32 | PDOC ---
History of Present Illness - General Chief Complaint: Weakness Stated Complaint: WEAKNESS Time Seen by Provider: 04/14/19 20:11 - History of Present Illness Initial Comments: 04/14/19 20:30 48 active Hep C, anemia, polysubstance abuse, pancreatitis, GERD, who p/w sustained muscle contraction of neck. 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 Report h/o similiar reaction in past. Symptoms lasted 20 minutes and resolved, with absent postictal state, or weakness. Patient on home Olanzapine, Seroquel, and Gould daily. Has not taken Seroquel for past two days, ran out of medication. Denies Etoh, Methadone, IVDA x 2 months following rehabilitation. Denies OTC symptom management with Diphenhydramine. Patient denies SHOOK, vision change, palpitations, cough, wheezing, orthopena, PND , leg swelling/pain, N/V, F,C, CP, SOB, urinary complaints, hematuria, BPR, abdominal pain, diarrhea, constipation, lightheadedness, weakness, sensory changes. PMHx: as noted above ROS: as noted SHx: Denies Etoh, IVDA, tobacco use Allergies: Reglan, Compazine, Haldol Past History - Past Medical History Allergies/Adverse Reactions: Allergies Allergy/AdvReac Type Severity Reaction Status Date / Time metoclopramide HCl Allergy Severe dystonic Verified 04/14/19 20:02 [From Reglan] reaction prochlorperazine maleate Allergy Severe DYSTONIA Verified 04/14/19 20:02 [From Compazine] haloperidol [From Haldol] Allergy Verified 04/14/19 20:02 mirtazapine [From Remeron] AdvReac Severe Difficulty Verified 04/14/19 20:02 Breathing Home Medications: Ambulatory Orders Multivitamin,Therapeutic [Thera] 1 each PO DAILY #30 tab 11/24/18 Benztropine Mesylate 1 tab PO BID 04/03/19 Docusate Sodium [Colace -] 1 cap PO BID 04/03/19 Gabapentin 1 tab PO BID 04/03/19 Gould Carbonate [Eskalith -] 1 tab PO BID 04/03/19 Gould Carbonate [Eskalith -] 1 tab PO HS 04/03/19 Mag Hydrox/Al Hydrox/Simeth [Mylanta *Suspension*] 1 tsp PO HS PRN #1 bottle MDD 1 04/03/19 Methadone [Dolophine -] 1 tab PO DAILY 04/03/19 Olanzapine 1 tab PO DAILY 04/03/19 Quetiapine Fumarate [Seroquel] 1 tab PO HS 04/03/19 Ranitidine [Zantac -] 150 mg PO DAILY PRN #30 tablet MDD 1 04/03/19 Sennosides [Senna -] 2 tab PO HS 04/03/19 Sofosbuvir/Velpatasvir [Epclusa 400 mg-100 mg Tablet] 1 each PO DAILY #28 tablet 04/03/19 traZODone HCL [Trazodone HCl] 2 tab PO HS 04/03/19 Diphenhydramine [Benadryl Capsule -] 1 tab PO HS #30 capsule 04/04/19 Albuterol 0.083% Nebulizer Rosa [Ventolin 0.083% Nebulizer Soln -] 1 neb NEB Q4H #1 box 04/12/19 Albuterol Sulfate Inhaler - [Ventolin HFA Inhaler -] 1 - 2 inh PO QID #1 inhaler 04/12/19 Ibuprofen 1 - 2 tab PO DAILY #20 tablet 04/12/19 Nebulizer [Compact Compressor Nebulizer] 1 each ASDIR #1 kit 04/12/19 Nicotine Polacrilex [Nicotine Gum] 4 mg BC QID #1 box 04/12/19 Diphenhydramine HCl [Allergy] 25 mg PO BID PRN #15 tablet 04/14/19 Anemia: Yes (as a teen, had iron and transfusions) Asthma: Yes (Pt is on MDI) Cancer: No Cardiac Disorders: No CVA: No COPD: No CHF: No Dementia: No Diabetes: No GI Disorders: Yes (pancreatitis) Disorders: No HTN: No Hypercholesterolemia: No Kidney Stones: No Liver Disease: Yes (hepatitis C, not treated ) Psychiatric Problems: Yes (bipolar) Seizures: No Thyroid Disease: No - Surgical History Abdominal Surgery: No Appendectomy: No Cardiac Surgery: No Cholecystectomy: No Lung Surgery: No Neurologic Surgery: No Orthopedic Surgery: No - Reproductive History (#): 13 Para: 11 PID: No - Immunization History Immunization Up to Date: No - Suicide/Smoking/Psychosocial Hx Smoking History: Never smoked Have you smoked in the past 12 months: No Number of Cigarettes Smoked Daily: 5 Cigars Per Day: 0 Information on smoking cessation initiated: No 'Breaking Loose' booklet given: 02/15/19 Hx Alcohol Use: Yes Drug/Substance Use Hx: No Substance Use Type: Alcohol Hx Substance Use Treatment: Yes ([facility] 10/11/18 to 10/14/18) Review of Systems - Review of Systems Comments:: 04/14/19 20:31 GENERAL/CONSTITUTIONAL: No fever or chills. No weakness. HEAD, EYES, EARS, NOSE AND THROAT: No change in vision. No ear pain or discharge. No sore throat. CARDIOVASCULAR: No chest pain or shortness of breath RESPIRATORY: No cough, wheezing, or hemoptysis. GASTROINTESTINAL: No nausea, vomiting, diarrhea or constipation. GENITOURINARY: No dysuria, frequency, or change in urination. MUSCULOSKELETAL: No joint or muscle swelling or pain. No neck or back pain. SKIN: No rash NEUROLOGIC: No headache, vertigo, loss of consciousness, or change in strength/ sensation. ENDOCRINE: No increased thirst. No abnormal weight change HEMATOLOGIC/LYMPHATIC: No anemia, easy bleeding, or history of blood clots. ALLERGIC/IMMUNOLOGIC: No hives or skin allergy. *Physical Exam - Vital Signs Last Vital Signs Temp Pulse Resp BP Pulse Ox 99.6 F 118 H 20 138/94 98 04/14/19 19:48 04/14/19 19:48 04/14/19 19:48 04/14/19 19:48 04/14/19 19:48 - Physical Exam Comments: 04/14/19 20:31 GENERAL: Awake, alert, and fully oriented, in no acute distress HEAD: No signs of trauma, normocephalic, atraumatic EYES: PERRLA, EOMI, sclera anicteric, conjunctiva clear ENT: Auricles normal inspection, hearing grossly normal, nares patent, oropharynx clear without exudates. Moist mucosa NECK: Normal ROM, supple, no lymphadenopathy, JVD, or masses LUNGS: No distress, speaks full sentences, clear to auscultation bilaterally HEART: Regular rate and rhythm, normal S1 and S2, no murmurs, rubs or gallops, peripheral pulses normal and equal bilaterally. ABDOMEN: Soft, nontender, normoactive bowel sounds. No guarding, no rebound. No masses EXTREMITIES : Normal inspection, Normal range of motion, no edema. No clubbing or cyanosis. NEUROLOGICAL: Cranial nerves II through XII grossly intact. 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 HR 118 , Temp 99.6 oral, vitals otherwise wnl, A&OX3. Physical exam unremarkable. No clinical s/s of infection. Patient on home Olanzapine Gould, and Seroquel. Denies drooling, dysphagia, hoarseness/muffled voice, N/V, F,C, CP, SOB, urinary complaints, hematuria, BPR, abdominal pain, diarrhea, constipation, lightheadedness, weakness, sensory changes. Likely experienced acute dystonic reaction. Will assess for cardiac dysarrythmias, hypoglycemia, electrolyte abnml, metabolic and toxic derangements, acid-base disturbances, infection. Ed Course: Diphenhydramine 25 mg IV 04/14/19 21:22 EKG: NSR with absent ESTELA, STD. QTc 439. Nml axis. Nml R wave progression. 04/14/19 22:15 Laboratory Tests 04/14/19 04/14/19 04/14/19 21:00 21:00 21:00 WBC 7.9 Hgb 11.2 Hct 32.9 D Plt Count 148 BUN 24.0 H Creatinine 1.2 Serum , Qual Negative Alcohol, Quantitative 04/14/19 21:00 WBC Hgb Hct Plt Count BUN Creatinine Serum , Qual Alcohol, Quantitative < 3.0 *DC/Admit/Observation/Transfer Diagnosis at time of Disposition: Dystonic drug reaction - Discharge Dispostion Condition at time of disposition: Stable Decision to Admit order: No - Prescriptions Prescriptions: Diphenhydramine HCl [Allergy] 25 mg PO BID PRN #15 tablet PRN Reason: Allergies - Referrals - Patient Instructions Printed Discharge Instructions: Dystonia Movement Disorders Additional Instructions: Please return to the emergency department with any new or worsening symptoms or concerns. Please follow up with your primary care physician within 72 hours. - Post Discharge Activity
[2019-04-14 21:16] LABS: BASO % 0.7 % (0-2.0); EOS % 1.9 % (0-4.5); HEMATOCRIT 32.9 % (32.4-45.2); HEMOGLOBIN 11.2 GM/dL (10.7-15.3); LYMPH % 23.6 % (8-40); MCH 33.3 pg (25.7-33.7); MEAN PLT VOLUME 9.6 fl (7.5-11.1); MONO % 6.8 % (3.8-10.2); PLATELET COUNT 148 K/MM3 (134-434); RBC 3.36 M/mm3 (3.60-5.2); RDW 13.2 % (11.6-15.6); WHITE BLOOD COUNT 7.9 K/mm3 (4.0-10.0)
[2019-04-14] MEDS ORDERED: SODIUM CHLORIDE 500 ML IV STA (21:54)
[2019-04-14 22:02] LABS: ALBUMIN 3.9 g/dl (3.4-5.0); BILIRUBIN,TOTAL 0.2 mg/dL (0.2-1); CALCIUM 8.7 mg/dL (8.5-10.1); CREATININE 1.2 mg/dL (0.55-1.3); POTASSIUM 4.1 mmol/L (3.5-5.1); TOT PROT 7.2 g/dl (6.4-8.2)
[2019-04-14] MEDS ORDERED: diphenhydrAMINE HCL 12.5 MG/5 ML UNIT-DOSE CUPS PO ONE (22:42)
[2019-04-14] MEDS ORDERED: diphenhydrAMINE HCL 50 MG CAPSULE PO ONE (22:44)
[2019-04-14] MEDS ORDERED: diphenhydrAMINE HCL 25 MG CAPSULE (FP) PO ONE (22:45)
[2019-04-14 22:55] VITALS: BP 130/90; PULSE 102; TEMP 99.1
--- NOTE | 2019-04-15 00:18 | PDOC ---
Documentation entered by Madelin Fraser SCRIBE, acting as scribe for Kinsey Morrison MD. Kinsey Morrison MD: This documentation has been prepared by the christopheribe, Madelin Fraser SCRIBE, under my direction and personally reviewed by me in its entirety. I confirm that the documentation accurately reflects all work, treatment, procedures, and medical decision making performed by me. Attending Attestation - Resident Resident Name: Rafal Malagonson - ED Attending Attestation I have performed the following: I have examined & evaluated the patient, The case was reviewed & discussed with the resident, I agree w/resident's findings & plan - HPI HPI: 04/14/19 22:30 The patient is a 48 year old female with a significant past medical history of Hep C, anemia, polysubstance abuse, pancreatitis, GERD who presents to the emergency department with a sudden onset of muscle contraction of neck prior to arrival. The patient states that she was at home sitting down when she felt onset of her symptoms. She states that her episode lasted about 20 minutes and resolved. She states that she has not taken Seroquel for past two days, ran out of medication. Denies Etoh, Methadone, IVDA x 2 months following rehabilitation. Denies OTC symptom management with Diphenhydramine. - Physicial Exam PE: 04/14/19 22:33 ADULT EXAM GENERAL: Awake, alert, and fully oriented, in no acute distress HEAD: No signs of trauma EYES: PERRLA, EOMI, sclera anicteric, conjunctiva clear ENT: Auricles normal inspection, hearing grossly normal, nares patent, oropharynx clear without exudates. Moist mucosa NECK: Normal ROM, supple, no lymphadenopathy, JVD, or masses LUNGS: Breath sounds equal, clear to auscultation bilaterally. No wheezes, and no crackles HEART: Regular rate and rhythm, normal S1 and S2, no murmurs, rubs or gallops ABDOMEN: Soft, nontender, normoactive bowel sounds. No guarding, no rebound. No masses EXTREMITIES: Normal range of motion, no edema. No clubbing or cyanosis. No cords, erythema, or tenderness NEUROLOGICAL: Cranial nerves II through XII grossly intact. Normal speech, normal gait SKIN: Warm, Dry, normal turgor, no rashes or lesions noted. - Medical Decision Making 04/15/19 22:31 Pt comes with muscle spasms/torticollis and she is asking for a refill of her seroquel. We checked her labs all are normal; She was treated in the ER with benadryl for med related toricollis. She is feeling better and she will be d/c'd home. She will not receive seroquel here today. She needs to follow with her PMD.
--- NOTE | 2019-04-15 17:01 | EKG ---
Test Reason : Blood Pressure : / mmHG Vent. Rate : 097 BPM Atrial Rate : 097 BPM P-R Int : 140 ms QRS Dur : 080 ms QT Int : 346 ms P-R-T Axes : 068 034 057 degrees QTc Int : 439 ms NORMAL SINUS RHYTHM SEPTAL INFARCT (CITED ON OR BEFORE 10-FEB-2019) ABNORMAL ECG WHEN COMPARED WITH ECG OF 11-FEB-2019 09:37, T WAVE AMPLITUDE HAS DECREASED IN ANTEROLATERAL LEADS QT HAS SHORTENED Confirmed by MD SHER, MIRIAM ([id number]) on 04/15/2019 5:01:03 PM Referred By: Confirmed By:MIRIAM OLIVAREZ MD
== END 2019-04-14 22:56 | disposition home or self-care (01) ==
LOC: JER 19:48
PROC: 3E0337Z Introduction of Electrolytic and Water Balance Substance into Peripheral Vein, Percutaneous Approach (ICD-10-PCS; principal; 2019-04-14)
PROC: 3E033GC Introduction of Other Therapeutic Substance into Peripheral Vein, Percutaneous Approach (ICD-10-PCS; 2019-04-14)
DX: G24.3 Spasmodic torticollis (principal); G24.09 Other drug induced dystonia; B18.2 Chronic viral hepatitis C; K21.9 Gastro-esophageal reflux disease without esophagitis; D64.9 Anemia, unspecified; K86.1 Other chronic pancreatitis
CPT/HCPCS: 36415; 80053; 80178; 80307; 84703; 85025; 93005; 93010; 96361; 96374; 99284-25

== ENCOUNTER 2019-05-11 10:53 | Inpatient (IN) | payer OTHER ==
[2019-05-11 12:01] VITALS: BMI 26.8
--- NOTE | 2019-05-11 13:18 | HP ---
COWS - Scale Resting Pulse: 0= IN 80 or Below Sweatin= Chills/Flushing Restless Observation: 1= Difficult to Sit Still Pupil Size: 0= Normal to Room Light Bone or Joint Aches: 2= Severe Diffuse Aches Runny Nose/ Eye Tearin= Runny Nose/Eyes GI Upset > 30mins: 1= Stomach Cramp Tremor Observation: 1= Tremor [place], Not Seen Yawning Observation: 1= 1-2x During Session Anxiety or Irritability: 1=Feels Anxious/Irritable Goose Flesh Skin: 0=Smooth Skin COWS Score: 10 CIWA Score Nausea/Vomitin Muscle Tremors: 1-None Visible, but [place] Anxiety: 2 Agitation: 1-Slight > Activity Paroxysmal Sweats: 1-Minimal Palms Moist Orientation: 0-Oriented Tacttile Disturbances: 1-Very Mild Itch/Numbness Auditory Disturbances: 0-None Visual Disturbances: 1-Very Mild Sensitivity Headache: 3-Moderate CIWA-Ar Total Score: 12 - Admission Criteria [facility] Guidelines: Admission for Medically Managed Detox: Requires at least one of the followin. CIWA greater than 12 2. Seizures within the past 24 hours 3. Delirium tremens within the past 24 hours 4. Hallucinations within the past 24 hours 5. Acute intervention needed for co occurring medical disorder 6. Acute intervention needed for co occurring psychiatric disorder 7. Severe withdrawal that cannot be handled at a lower level of care (continued vomiting, continued diarrhea, abnormal vital signs) requiring intravenous medication and/or fluids 8. Admission ROS [facility] Chief Complaint: 48 y/o F with PMH hepatitis C (on epclusa), schizophrenia, bipolar, depression, anxiety, asthma, who presents for detox from alcohol and heroin. Allergies/Adverse Reactions: Allergies Allergy/AdvReac Type Severity Reaction Status Date / Time metoclopramide HCl Allergy Severe dystonic Verified 05/11/19 11:44 [From Reglan] reaction prochlorperazine maleate Allergy Severe DYSTONIA Verified 05/11/19 11:44 [From Compazine] haloperidol [From Haldol] Allergy Verified 05/11/19 11:44 mirtazapine [From Remeron] AdvReac Severe Difficulty Verified 05/11/19 11:44 Breathing History of Present Illness: 48 y/o F with PMH hepatitis C (on epclusa), schizophrenia, bipolar, depression, anxiety, asthma, hx pancreatitis, thrombocytopenia, who presents for detox from alcohol and heroin. States that her last drink was today had 1 beer this AM. Drinks 1 quart and 1/2 of vodka every day. Has been drinking her whole life intermittently. Has been drinking less than normal. Used to drink 2 gallons hard liquor every 2 days. Has hx of seizures in past/ dystonic episodes. Has blacked out 2x. Has never OD. Hasn't seen her psychiatrist in two months. Longest sobriety 6 months. Last heroin use 10 bags intranasal. Never IVDA. Uses 10 bags daily. Longest sobriety 6 months. Was on methadone program [place] for 3 yrs, came off it 2 months ago after was tapered to 5mg. Was on suboxone years ago. States that after she was dx with pancreatitis at [facility] , she did rehab at [facility] and was then in a psych rodriguez. She relapsed during the april since she was around her family members who drink heavily. PMH: as above PsxH: c- section x 2. has 11 children meds: epclusa, trazodone, zantac, seroquel, olanzapine, benztropine, ventolin allergies: reglan, prochlorperazine, haldol, mirtazapine all cause dystonia and makes her require benadryl FH: grandma - breast CA, brother - AIDS, parents - alcoholic SH: smokes 3 cigs/ day intermittently for many yrs. illicit ingestions as above. denies recent marijuana, cocaine or fentanyl use Exam Limitations: No Limitations - Ebola screening Have you traveled outside of the country in the last 21 days: No Have you had contact with anyone from an Ebola affected area: No Do you have a fever: No - Review of Systems Constitutional: Chills, Diaphoresis, Weakness, Unexplained wgt Loss EENT: reports: Tearing, Nose Congestion Respiratory: reports: Shortness of Breath Cardiac: reports: No Symptoms Reported GI: reports: Diarrhea, Abdominal cramping : reports: No Symptoms Reported Musculoskeletal: reports: Back Pain, Joint Pain Integumentary: reports: No Symptoms Reported Neuro: reports: Headache Endocrine: reports: No Symptoms Reported Hematology: reports: No Symptoms Reported Psychiatric: reports: Orientated x3, Depressed Patient History - Patient Medical History Hx Anemia: Yes (as a teen, had iron and transfusions) Hx Asthma: Yes (Pt is on MDI) Hx Chronic Obstructive Pulmonary Disease (COPD): No Hx Cancer: No Hx Cardiac Disorders: No Hx Congestive Heart Failure: No Hx Hypertension: No Hx Hypercholesterolemia: No Hx Pacemaker: No HX Cerebrovascular Accident: No Hx Seizures: No Hx Dementia: No Hx Diabetes: No Hx Gastrointestinal Disorders: Yes (pancreatitis) Hx Liver Disease: Yes (hepatitis C, not treated ) Hx Genitourinary Disorders: No Hx Sexually Transmitted Disorders: No Hx Renal Disease (ESRD): No Hx Thyroid Disease: No Hx Human Immunodeficiency Virus (HIV): No (last 01/16 negative) Hx Hepatitis C: Yes Hx Depression: Yes Hx Suicide Attempt: No Hx Bipolar Disorder: Yes (no med) Hx Schizophrenia: No Other Medical History: schizophrenia, PTSD - Patient Surgical History Past Surgical History: Yes Hx Neurologic Surgery: No Hx Cataract Extraction: No Hx Cardiac Surgery: No Hx Lung Surgery: No Hx Breast Surgery: No Hx Breast Biopsy: No Hx Abdominal Surgery: No Hx Appendectomy: No Hx Cholecystectomy: No Hx Genitourinary Surgery: No Hx Section: Yes (x 2) Hx Orthopedic Surgery: No Hx Hysterectomy: No Other Surgical History: age 9 - abscess/tumor, benign per pt Anesthesia Reaction: No - PPD History Documented Results: Negative w/o proof Date: 02/17/19 Results: 0mm PPD to be Administered?: No - Reproductive History Patient is a Female of Child Bearing Age (11 -55 yrs old): Yes Last Menstrual Period: 10/04/18 Patient : No - Smoking Cessation Smoking history: Current some day smoker Have you smoked in the past 12 months: No Aproximately how many cigarettes per day: 3 Cigars Per Day: 0 Hx Chewing Tobacco Use: No Initiated information on smoking cessation: Yes 'Breaking Loose' booklet given: 05/11/19 - Substance & Tx. History Hx Alcohol Use: Yes Substance Use Type: Alcohol, Heroin Hx Substance Use Treatment: Yes ([facility] ) - Substances abused Alcohol Substance route: Oral Frequency: Daily Amount used: 1 quart of vodka Age of first use: 16 Date of last use: 05/10/19 Heroin Substance route: Inhalation Frequency: Daily Amount used: 10 bags Age of first use: 17 Date of last use: 05/10/19 Family Disease History - Family Disease History Family Disease History: Diabetes: Grandparent (mgm - dm, htn), Other: Father ( : CVA / alcoholic liver disease), Mother (alive, well), Brother (5 - 1 with AIDS), Sister (4 - 1 with THROAT CA), Son (4), Daughter ( 7) Admission Physical Exam [facility] - Vital Signs Vital Signs: Vital Signs - 24 hr 05/11/19 05/11/19 11:38 12:16 Temperature 97.7 F 97.7 F Pulse Rate 69 69 Respiratory 17 17 Rate Blood Pressure 125/93 125/93 - Physical General Appearance: Yes: Within Normal Limits HEENTM: Yes: Within Normal Limits Respiratory: Yes: Lungs Clear Neck: Yes: Within Normal Limits Breast: Yes: Breast Exam Deferred Cardiology: Yes: Regular Rhythm, Regular Rate, S1, S2 Abdominal: Yes: Within Normal Limits Genitourinary: Yes: Within Normal Limits Back: Yes: Within Normal Limits Musculoskeletal: Yes: full range of Motion Extremities: Yes: Within Normal Limits Neurological: Yes: on site nurse II-XII NML intact Integumentary: Yes: Within Normal Limits Lymphatic: Yes: Within Normal Limits - Diagnostic (1) Opioid withdrawal Current Visit: Yes Status: Acute (2) Opioid dependence Current Visit: Yes Status: Acute Qualifiers: Substance use status: uncomplicated Qualified Code(s): F11.20 - Opioid dependence, uncomplicated Comment: cont f/u mmtp, denies ivdu "for years". (3) Bipolar disorder Current Visit: Yes Status: Chronic Comment: states she is feeling well, [facility], has an intake appt scheduled with lynnette girard 04/05/19 tel [phone]. states has all refills. (4) Hepatitis C Current Visit: Yes Status: Chronic Qualifiers: Viral hepatitis chronicity: chronic Hepatic coma status: without hepatic coma Qualified Code(s): B18.2 - Chronic viral hepatitis C Comment: has been adherent to epclusa daily since starting last week, denies any se's/ae's, very motivated to continue taking daily for 12 wk duration of tx. has not had any etoh use. aware of importance of dose- h2- blockers and antacids. states she and are not sexually active at this time. denies any ivdu or other risk factors. (5) PTSD (post-traumatic stress disorder) Current Visit: Yes Status: Chronic Cleared for Admission [facility] - Detox or Rehab [facility] Level of Care: Medically Managed Detox Regimen/Protocol: Methadone/Valium Breathalyzer - Breathalyzer Breathalyzer: 0 Urine Drug Screen - Test Device Lot number: [id number] Expiration date: 02/27/21 - Control Is test valid?: Yes - Results Drug screen NEGATIVE: No Urine drug screen results: THC-Marijuana, FEN-Fentanyl, MOP-Opiates Inpatient Rehab Admission - Rehab Decision to Admit Inpatient rehab admission?: No
--- NOTE | 2019-05-11 14:09 | PN ---
Teaching Attending Note Name of Resident: Scarlett Almeida ATTENDING PHYSICIAN STATEMENT I saw and evaluated the patient. I reviewed the resident's note and discussed the case with the resident. I agree with the resident's findings and plan as documented. SUBJECTIVE:pt here requesting detox from etoh and heroin use , reports relapse 1 week ago 05/03/19 while at gathering w/ family , has been using heroin via inhalation 10 bags/day , etoh 1.5 pints , latest use yesterday , current symptoms as above. PMH hepatitis C (on epclusa), schizophrenia, bipolar, depression, anxiety, asthma, hx pancreatitis, thrombocytopenia, OBJECTIVE: wnwd , nad , anxious Resp : claudia rhonchi , no wheezing CV : rrr s1 s2 UE : no tremors ASSESSMENT AND PLAN: opiate dependence - methadone taper etoh dependence - valium taper .
[2019-05-11] MEDS ORDERED: cloNIDine HCL 0.1 MG TABLET PO PRN (14:10)
[2019-05-11] MEDS ORDERED: NICOTINE POLACRILEX 2 MG GUM BUC PRN (14:14)
[2019-05-11] MEDS ORDERED: ACETAMINOPHEN 325 MG TABLET (FP) PO PRN (14:14)
[2019-05-11] MEDS ORDERED: hydrOXYzine HCL 25 MG TABLET (FP) PO PRN (14:14)
[2019-05-11] MEDS ORDERED: MENTHOL/PHENOL 1 EACH UD MM PRN (14:14)
[2019-05-11] MEDS ORDERED: IBUPROFEN 400 MG TABLET (FP) PO PRN (14:14)
[2019-05-11] MEDS ORDERED: MAG HYDROX/AL HYDROX/SIMETH 30 ML UNIT-DOSE CUP PO PRN (14:14)
[2019-05-11] MEDS ORDERED: BISMUTH SUBSALICYLATE 262 MG/15 ML BTL PO PRN (14:14)
[2019-05-11] MEDS ORDERED: MAGNESIUM HYDROX 2400MG/30ML ORAL SUSPENSION 30 ML CUP PO PRN (14:14)
[2019-05-11] MEDS ORDERED: RANITIDINE HCL 150 MG TABLET (FP) PO PRN (14:22)
[2019-05-11] MEDS ORDERED: METHADONE HCL 10 MG TABLET (FOR DETOX USE ONLY) PO ONE (14:30)
[2019-05-11] MEDS ORDERED: ALBUTEROL SO4 8 GM HFA INHALER IH PRN (15:14)
[2019-05-11] MEDS: diazePAM 5 MG TABLET PO SCH ×2 (15:21→22:47)
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
[2019-05-11] MEDS ORDERED: ALBUTEROL SO4 8 GM HFA INHALER IH SCH (18:00)
[2019-05-11] MEDS ORDERED: diphenhydrAMINE HCL 50 MG CAPSULE PO SCH (22:00)
[2019-05-11] MEDS ORDERED: diphenhydrAMINE HCL 50 MG CAPSULE PO PRN (22:00)
[2019-05-11] MEDS: GABAPENTIN 400 MG CAPSULE (FP) PO SCH (22:47)
[2019-05-11] MEDS: QUEtiapine FUMARATE 200 MG TABLET PO SCH (22:47)
[2019-05-11] MEDS: diphenhydrAMINE HCL 25 MG CAPSULE (FP) PO PRN (22:47)
[2019-05-11] MEDS: THIAMINE HCL 100 MG TABLET (FP) PO SCH (22:48)
[2019-05-11] MEDS: MELATONIN 5 MG TABLETS PO PRN (22:48)
[2019-05-12] MEDS: diazePAM 5 MG TABLET PO SCH ×3 (06:29→22:46)
[2019-05-12] MEDS: diphenhydrAMINE HCL 25 MG CAPSULE (FP) PO PRN (06:31)
[2019-05-12] MEDS ORDERED: METHADONE HCL 5 MG TABLET (FOR DETOX USE ONLY) ONE (09:21)
[2019-05-12] MEDS ORDERED: METHADONE HCL 10 MG TABLET (FOR DETOX USE ONLY) ONE (09:21)
[2019-05-12] MEDS ORDERED: METHADONE (DETOX) 20 MG, METHADONE (DETOX) 5 MG PO ONE (10:00)
[2019-05-12] MEDS: PRENATAL VITAMINS W/ FOLIC ACID TABLET (FP) PO SCH (10:45)
[2019-05-12] MEDS: GABAPENTIN 400 MG CAPSULE (FP) PO SCH ×2 (10:45→22:46)
--- NOTE | 2019-05-12 12:49 | PN ---
[facility] CIWA - CIWA Score Nausea/Vomitin-No Nausea/No Vomiting Muscle Tremors: 2 Anxiety: 2 Agitation: 2 Paroxysmal Sweats: 3 Orientation: 0-Oriented Tacttile Disturbances: 0-None Auditory Disturbances: 0-None Visual Disturbances: 0-None Headache: 1-Very Mild CIWA-Ar Total Score: 10 BHS COWS - Scale Resting Pulse: 1= [place] 81-100 Sweatin= Chills/Flushing Restless Observation: 1= Difficult to Sit Still Pupil Size: 0= Normal to Room Light Bone or Joint Aches: 2= Severe Diffuse Aches Runny Nose/ Eye Tearin= None GI Upset > 30mins: 0= None Tremor Observation of Outstretched Hands: 2= Slight Tremor Visible Yawning Observation: 1= 1-2x During Session Anxiety or Irritability: 2=Irritable/Anxious Goose Flesh Skin: 0=Smooth Skin COWS Score: 10 BHS Progress Note (SOAP) Subjective: c/o headache, chills, anxiety, irritability, and sweats. Objective: 05/12/19 12:49 Vital Signs 05/12/19 05/12/19 06:00 09:26 Temperature 97.7 F 97.7 F Pulse Rate 91 H 85 Respiratory 18 18 Rate Blood Pressure 97/70 95/65 Assessment: 05/12/19 12:49 AOX3, in no acute respiratory distress Full ROM, ambulating in the unit. Withdrawal symptoms. Plan: continue detox.
[2019-05-12] MEDS: PATIENT'S OWN MEDICATION (NON-FORMULARY) (Sofosbuvir/Velpatasvir [Epclusa 400 Mg-100 Mg Ta PO SCH (14:23)
[2019-05-12 15:27] LABS: HEMATOCRIT 34.2 % (32.4-45.2); HEMOGLOBIN 11.7 GM/dL (10.7-15.3); MCH 33.3 pg (25.7-33.7); MCHC 34.3 g/dl (32.0-36.0); MEAN PLT VOLUME 12.7 fl (7.5-11.1); RBC 3.53 M/mm3 (3.60-5.2); RDW 13.6 % (11.6-15.6); WHITE BLOOD COUNT 5.7 K/mm3 (4.0-10.0)
[2019-05-12] MEDS: diazePAM 5 MG TABLET PO PRN (15:38)
[2019-05-12 16:12] LABS: ALBUMIN 3.3 g/dl (3.4-5.0); BILIRUBIN,TOTAL 0.2 mg/dL (0.2-1); BLOOD UREA NITROGEN 22.6 mg/dL (7-18); CALCIUM 8.4 mg/dL (8.5-10.1); CREATININE 0.9 mg/dL (0.55-1.3); POTASSIUM 3.5 mmol/L (3.5-5.1); TOT PROT 6.6 g/dl (6.4-8.2)
[2019-05-12 17:25] LABS: PLATELET COUNT 76 K/MM3 (134-434)
[2019-05-12] MEDS: QUEtiapine FUMARATE 200 MG TABLET PO SCH (22:46)
[2019-05-12] MEDS: THIAMINE HCL 100 MG TABLET (FP) PO SCH (22:47)
[2019-05-13] MEDS: diazePAM 5 MG TABLET PO SCH ×2 (07:50→17:49)
[2019-05-13] MEDS ORDERED: METHADONE HCL 10 MG TABLET (FOR DETOX USE ONLY) PO ONE (10:00)
[2019-05-13] MEDS: GABAPENTIN 400 MG CAPSULE (FP) PO SCH ×2 (10:40→22:44)
[2019-05-13] MEDS: PRENATAL VITAMINS W/ FOLIC ACID TABLET (FP) PO SCH (10:40)
[2019-05-13] MEDS: PATIENT'S OWN MEDICATION (NON-FORMULARY) (Sofosbuvir/Velpatasvir [Epclusa 400 Mg-100 Mg Ta PO SCH (10:41)
[2019-05-13] MEDS: diazePAM 5 MG TABLET PO PRN ×2 (13:34→20:25)
--- NOTE | 2019-05-13 17:15 | PN ---
S CIWA - CIWA Score Nausea/Vomitin-Mild Nausea/No Vomiting Muscle Tremors: 2 Anxiety: 2 Agitation: 2 Paroxysmal Sweats: 2 Orientation: 0-Oriented Tacttile Disturbances: 0-None Auditory Disturbances: 0-None Visual Disturbances: 0-None Headache: 0-None Present CIWA-Ar Total Score: 9 BHS COWS - Scale Resting Pulse: 1= [place] 81-100 Sweatin= Chills/Flushing Restless Observation: 0= Sits Still Pupil Size: 0= Normal to Room Light Bone or Joint Aches: 1= Mild Discomfort Runny Nose/ Eye Tearin= Runny Nose/Eyes GI Upset > 30mins: 2= Nausea/Diarrhea Tremor Observation of Outstretched Hands: 2= Slight Tremor Visible Yawning Observation: 1= 1-2x During Session Anxiety or Irritability: 1=Feels Anxious/Irritable Goose Flesh Skin: 0=Smooth Skin COWS Score: 11 S Progress Note (SOAP) Subjective: Angry, agitated, yawning a lot, back pain. Patient request ensure (already ordered) Objective: 05/13/19 17:12 Last Vital Signs Temp Pulse Resp BP Pulse Ox 97.0 F L 83 18 114/66 05/13/19 17:07 05/13/19 17:07 05/13/19 17:07 05/13/19 17:07 Laboratory Tests 05/12/19 05/12/19 05/12/19 10:15 10:15 10:15 WBC 5.7 RBC 3.53 L Hgb 11.7 Hct 34.2 MCV 97.0 H MCH 33.3 MCHC 34.3 RDW 13.6 Plt Count 76 L D MPV 12.7 H D Sodium 140 Potassium 3.5 Chloride 107 Carbon Dioxide 27 Anion Gap 5 L BUN 22.6 H Creatinine 0.9 Est GFR (CKD-EPI)AfAm 88.25 Est GFR (CKD-EPI)NonAf 76.14 Random Glucose 103 Calcium 8.4 L Total Bilirubin 0.2 AST 13 L ALT 27 Alkaline Phosphatase 72 Total Protein 6.6 Albumin 3.3 L RPR Titer Nonreactive HIV 1&2 Antibody Screen HIV P24 Antigen 05/12/19 10:30 WBC RBC Hgb Hct MCV MCH MCHC RDW Plt Count MPV Sodium Potassium Chloride Carbon Dioxide Anion Gap BUN Creatinine Est GFR (CKD-EPI)AfAm Est GFR (CKD-EPI)NonAf Random Glucose Calcium Total Bilirubin AST ALT Alkaline Phosphatase Total Protein Albumin RPR Titer HIV 1&2 Antibody Screen Negative HIV P24 Antigen Negative Labs reviewed: plt 76, bun elevated Assessment: 05/13/19 17:13 Withdrawal symptoms Thrombocytopenia and azotemia noted Plan: Continue detox Encouraged PO water hydration Thrombocytopenia: most likely r/t alcoholism and hepatitis C; follow up with PCP for monitoring. Azotemia: encouraged PO water hydration
[2019-05-13] MEDS: THIAMINE HCL 100 MG TABLET (FP) PO SCH (22:44)
[2019-05-13] MEDS: QUEtiapine FUMARATE 200 MG TABLET PO SCH (22:44)
[2019-05-13] MEDS: MELATONIN 5 MG TABLETS PO PRN (22:45)
[2019-05-14] MEDS ORDERED: diazePAM 5 MG TABLET PO ONE (06:00)
[2019-05-14] MEDS ORDERED: METHADONE HCL 10 MG TABLET (FOR DETOX USE ONLY) ONE (09:19)
[2019-05-14] MEDS ORDERED: METHADONE HCL 5 MG TABLET (FOR DETOX USE ONLY) ONE (09:19)
[2019-05-14] MEDS ORDERED: METHADONE (DETOX) 10 MG, METHADONE (DETOX) 5 MG PO ONE (10:00)
[2019-05-14] MEDS: GABAPENTIN 400 MG CAPSULE (FP) PO SCH ×2 (10:41→22:29)
[2019-05-14] MEDS: PRENATAL VITAMINS W/ FOLIC ACID TABLET (FP) PO SCH (10:41)
[2019-05-14] MEDS: PATIENT'S OWN MEDICATION (NON-FORMULARY) (Sofosbuvir/Velpatasvir [Epclusa 400 Mg-100 Mg Ta PO SCH (10:42)
[2019-05-14] MEDS: diazePAM 5 MG TABLET PO PRN (10:44)
--- NOTE | 2019-05-14 11:31 | PN ---
[facility] Progress Note Note: Patient reports feeling very anxious and sleeping poorly despite taking Benadryl 50 mg/hs. When adjusto writer operator asked her if she knows she has order for Visttaril, she responded that she did not know about it. She is made aware that it is ordered on as needed basis that she needs to request it. Vistaril dose will be increased to 50 mg/q4hrs prn for anxiety and insomnia
--- NOTE | 2019-05-14 12:33 | PN ---
[facility] CIWA - CIWA Score Nausea/Vomitin-No Nausea/No Vomiting Muscle Tremors: 2 Anxiety: 2 Agitation: 2 Paroxysmal Sweats: 1-Minimal Palms Moist Orientation: 0-Oriented Tacttile Disturbances: 0-None Auditory Disturbances: 0-None Visual Disturbances: 0-None Headache: 0-None Present CIWA-Ar Total Score: 7 BHS COWS - Scale Resting Pulse: 1= [place] 81-100 Sweatin= Chills/Flushing Restless Observation: 0= Sits Still Pupil Size: 0= Normal to Room Light Bone or Joint Aches: 1= Mild Discomfort Runny Nose/ Eye Tearin= Nasal Congestion GI Upset > 30mins: 0= None Tremor Observation of Outstretched Hands: 1= Tremor [place], Not Seen Yawning Observation: 1= 1-2x During Session Anxiety or Irritability: 1=Feels Anxious/Irritable Goose Flesh Skin: 0=Smooth Skin COWS Score: 7 S Progress Note (SOAP) Subjective: chills sweats agitation irritable Objective: 05/14/19 12:33 Vital Signs Temperature 97.3 F L 05/14/19 09:20 Pulse Rate 79 05/14/19 09:20 Respiratory Rate 16 05/14/19 09:20 Blood Pressure 100/65 05/14/19 09:20 O2 Sat by Pulse Oximetry (%) Laboratory Tests 05/12/19 05/12/19 05/12/19 10:15 10:15 10:15 WBC 5.7 RBC 3.53 L Hgb 11.7 Hct 34.2 MCV 97.0 H MCH 33.3 MCHC 34.3 RDW 13.6 Plt Count 76 L D MPV 12.7 H D Sodium 140 Potassium 3.5 Chloride 107 Carbon Dioxide 27 Anion Gap 5 L BUN 22.6 H Creatinine 0.9 Est GFR (CKD-EPI)AfAm 88.25 Est GFR (CKD-EPI)NonAf 76.14 Random Glucose 103 Calcium 8.4 L Total Bilirubin 0.2 AST 13 L ALT 27 Alkaline Phosphatase 72 Total Protein 6.6 Albumin 3.3 L RPR Titer Nonreactive HIV 1&2 Antibody Screen HIV P24 Antigen 05/12/19 10:30 WBC RBC Hgb Hct MCV MCH MCHC RDW Plt Count MPV Sodium Potassium Chloride Carbon Dioxide Anion Gap BUN Creatinine Est GFR (CKD-EPI)AfAm Est GFR (CKD-EPI)NonAf Random Glucose Calcium Total Bilirubin AST ALT Alkaline Phosphatase Total Protein Albumin RPR Titer HIV 1&2 Antibody Screen Negative HIV P24 Antigen Negative aaox3 ambulating no acute distress Assessment: 05/14/19 12:33 mild withdrawal sx Plan: continue detox increase fluids
[2019-05-14] MEDS: hydrOXYzine PAMOATE 50 MG CAPSULE (FP) PO PRN (17:46)
[2019-05-14] MEDS: THIAMINE HCL 100 MG TABLET (FP) PO SCH (22:29)
[2019-05-14] MEDS: QUEtiapine FUMARATE 200 MG TABLET PO SCH (22:29)
[2019-05-15] MEDS ORDERED: METHADONE HCL 10 MG TABLET (FOR DETOX USE ONLY) PO ONE (10:00)
[2019-05-15] MEDS: PRENATAL VITAMINS W/ FOLIC ACID TABLET (FP) PO SCH (10:46)
[2019-05-15] MEDS: GABAPENTIN 400 MG CAPSULE (FP) PO SCH ×2 (10:46→22:10)
[2019-05-15] MEDS: PATIENT'S OWN MEDICATION (NON-FORMULARY) (Sofosbuvir/Velpatasvir [Epclusa 400 Mg-100 Mg Ta PO SCH (10:48)
[2019-05-15] MEDS: hydrOXYzine PAMOATE 50 MG CAPSULE (FP) PO PRN ×2 (12:13→17:39)
--- NOTE | 2019-05-15 13:37 | PN ---
[facility] CIWA - CIWA Score Nausea/Vomitin-No Nausea/No Vomiting Muscle Tremors: 2 Anxiety: 1-Mildly Anxious Agitation: 1-Slight > Activity Paroxysmal Sweats: No Perspiration Orientation: 0-Oriented Tacttile Disturbances: 0-None Auditory Disturbances: 0-None Visual Disturbances: 0-None Headache: 0-None Present CIWA-Ar Total Score: 4 S COWS - Scale Resting Pulse: 2= [place] 101-120 Sweatin= Chills/Flushing Restless Observation: 1= Difficult to Sit Still Pupil Size: 0= Normal to Room Light Bone or Joint Aches: 0= None Runny Nose/ Eye Tearin= None GI Upset > 30mins: 0= None Tremor Observation of Outstretched Hands: 1= Tremor [place], Not Seen Yawning Observation: 0= None Anxiety or Irritability: 1=Feels Anxious/Irritable Goose Flesh Skin: 0=Smooth Skin COWS Score: 6 [facility] Progress Note (SOAP) Subjective: anxiety Objective: 05/15/19 13:36 Vital Signs Temperature 97.5 F L 05/15/19 09:49 Pulse Rate 105 H 05/15/19 09:49 Respiratory Rate 18 05/15/19 09:49 Blood Pressure 98/60 05/15/19 09:49 O2 Sat by Pulse Oximetry (%) aaox3 ambulating no acute distress Assessment: 05/15/19 13:37 mild withdrawal sx Plan: continue detox increase fluids d/c in am
[2019-05-15] MEDS: THIAMINE HCL 100 MG TABLET (FP) PO SCH (22:10)
[2019-05-15] MEDS: QUEtiapine FUMARATE 200 MG TABLET PO SCH (22:10)
[2019-05-15] MEDS: diphenhydrAMINE HCL 25 MG CAPSULE (FP) PO PRN (22:13)
[2019-05-16] MEDS ORDERED: METHADONE HCL 5 MG TABLET (FOR DETOX USE ONLY) PO ONE (06:00)
[2019-05-16 07:44] VITALS: BP 91/65; PULSE 72; TEMP 98.1
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
== END 2019-05-16 08:12 | disposition home or self-care (01) | DRG 773 ==
LOC: YASAS 10:53 → Y6N 14:23
PROVIDERS: ADMIT Surgery; ATTEND Surgery
PROC: HZ2ZZZZ Detoxification Services for Substance Abuse Treatment (ICD-10-PCS; principal; 2019-05-11)
DX: F11.23 Opioid dependence with withdrawal (principal); F10.230 Alcohol dependence with withdrawal, uncomplicated; F10.220 Alcohol dependence with intoxication, uncomplicated; F12.20 Cannabis dependence, uncomplicated; F17.210 Nicotine dependence, cigarettes, uncomplicated; F31.9 Bipolar disorder, unspecified; F19.24 Other psychoactive substance dependence with psychoactive substance-induced mood disorder; F19.282 Other psychoactive substance dependence with psychoactive substance-induced sleep disorder; F19.280 Other psychoactive substance dependence with psychoactive substance-induced anxiety disorder; F39 Unspecified mood [affective] disorder; F43.10 Post-traumatic stress disorder, unspecified; D69.6 Thrombocytopenia, unspecified; D64.9 Anemia, unspecified; J45.909 Unspecified asthma, uncomplicated; R03.0 Elevated blood-pressure reading, without diagnosis of hypertension; K21.9 Gastro-esophageal reflux disease without esophagitis; B18.2 Chronic viral hepatitis C; R79.89 Other specified abnormal findings of blood chemistry; Z88.8 Allergy status to other drugs, medicaments and biological substances
CPT/HCPCS: 36415; 80053; 85027; 86593; 87389

== ENCOUNTER 2019-05-31 08:12 | Inpatient (IN) | payer OTHER | END 2019-06-03 09:26 | disposition home or self-care (01) | LOC: YASAS 08:12 → Y6N 09:58 ==

== ENCOUNTER 2019-06-11 08:33 | Inpatient (IN) | payer OTHER | END 2019-06-14 17:43 | disposition left against medical advice (07) | LOC: YASAS 08:33 → Y6N 09:40 ==

== ENCOUNTER 2019-06-26 08:29 | Inpatient (IN) | payer OTHER ==
--- NOTE | 2019-06-26 10:59 | HP ---
COWS - Scale Resting Pulse: 0= [place] 80 or Below Sweatin= Chills/Flushing Restless Observation: 1= Difficult to Sit Still Pupil Size: 1= Pupils >than Normal Bone or Joint Aches: 2= Severe Diffuse Aches Runny Nose/ Eye Tearin= Runny Nose/Eyes GI Upset > 30mins: 2= Nausea/Diarrhea Tremor Observation: 2= Slight Tremor Visible Yawning Observation: 1= 1-2x During Session Anxiety or Irritability: 1=Feels Anxious/Irritable Goose Flesh Skin: 3=[place] COWS Score: 16 CIWA Score Nausea/Vomitin Muscle Tremors: 3 Anxiety: 3 Agitation: 3 Paroxysmal Sweats: 2 Orientation: 0-Oriented Tacttile Disturbances: 0-None Auditory Disturbances: 0-None Visual Disturbances: 0-None Headache: 5-Severe CIWA-Ar Total Score: 19 - Admission Criteria [facility] Guidelines: Admission for Medically Managed Detox: Requires at least one of the followin. CIWA greater than 12 2. Seizures within the past 24 hours 3. Delirium tremens within the past 24 hours 4. Hallucinations within the past 24 hours 5. Acute intervention needed for co occurring medical disorder 6. Acute intervention needed for co occurring psychiatric disorder 7. Severe withdrawal that cannot be handled at a lower level of care (continued vomiting, continued diarrhea, abnormal vital signs) requiring intravenous medication and/or fluids 8. Admission [facility] Chief Complaint: "I am using heroin and alcohol. I am here so I can get clean." Allergies/Adverse Reactions: Allergies Allergy/AdvReac Type Severity Reaction Status Date / Time metoclopramide HCl Allergy Severe dystonic Verified 06/26/19 09:28 [From Reglan] reaction prochlorperazine maleate Allergy Severe DYSTONIA Verified 06/26/19 09:28 [From Compazine] haloperidol [From Haldol] Allergy Verified 06/26/19 09:28 mirtazapine [From Remeron] AdvReac Severe Difficulty Verified 06/26/19 09:28 Breathing History of Present Illness: 48 year old female who has opioid and alcohol dependence. She was just here and completed detox but did not go on to rehab. This time she wants to follow up with rehab once she completes detox. Patient using 10 bags of heroin intranasally every day. She was started using at the age of 17. She last used yesterday and had a blackout from using heroin. Patient using alcohol 1/5 of vodka daily. She last used yesterday. Patient smokes 3 ciggarettes per day, last smoke this morning. Patient smokes marijuana 1 blunt per day, last used yesterday. Patient denies using benzodiazepines but probably thinks it was mixed in the heroin that she took yesterday. She almost passed out yesterday. PSych HX: Depression, Schizophrenia, Bipolar, PTSD on meds. PMH: HCV on Epclusa, H/O pancreatitis in the past from alcohol. Asthma Patient has no legal pending issues. PSurgHx: C/S x2 Exam Limitations: No Limitations - Ebola screening Have you traveled outside of the country in the last 21 days: No Have you had contact with anyone from an Ebola affected area: No Have you been sick,other than usual withdrawal symptoms: No Do you have a fever: No - Review of Systems Constitutional: Chills, Diaphoresis EENT: reports: Blurred Vision Respiratory: reports: SOB with Exertion Cardiac: reports: No Symptoms Reported GI: reports: Nausea, Abdominal cramping : reports: No Symptoms Reported Musculoskeletal: reports: Back Pain, Muscle Pain Integumentary: reports: No Symptoms Reported Neuro: reports: Headache, Numbness, Tingling Endocrine: reports: No Symptoms Reported Hematology: reports: No Symptoms Reported Psychiatric: reports: Judgement Intact, Orientated x3, Agitated, Anxious Patient History - Patient Medical History Hx Anemia: Yes (as a teen, had iron and transfusions) Hx Asthma: Yes (Pt is on MDI) Hx Chronic Obstructive Pulmonary Disease (COPD): No Hx Cancer: No Hx Cardiac Disorders: No Hx Congestive Heart Failure: No Hx Hypertension: No Hx Hypercholesterolemia: No Hx Pacemaker: No HX Cerebrovascular Accident: No Hx Seizures: No Hx Dementia: No Hx Diabetes: No Hx Gastrointestinal Disorders: No Hx Liver Disease: Yes (hepatitis C, being treated with epclusa) Hx Genitourinary Disorders: No Hx Sexually Transmitted Disorders: No Hx Renal Disease (ESRD): No Hx Thyroid Disease: No Hx Human Immunodeficiency Virus (HIV): No (last 01/16 negative) Hx Hepatitis C: Yes Hx Depression: Yes Hx Suicide Attempt: No Hx Bipolar Disorder: Yes (no med,non compliance) Hx Schizophrenia: Yes - Patient Surgical History Past Surgical History: Yes Hx Neurologic Surgery: No Hx Cataract Extraction: No Hx Cardiac Surgery: No Hx Lung Surgery: No Hx Breast Surgery: No Hx Breast Biopsy: No Hx Abdominal Surgery: No Hx Appendectomy: No Hx Cholecystectomy: No Hx Genitourinary Surgery: No Hx Section: Yes (x 2) Hx Orthopedic Surgery: No Hx Hysterectomy: No Other Surgical History: age 9 - abscess/tumor, benign per pt Anesthesia Reaction: No - PPD History Date: 02/17/19 Results: 0mm - Reproductive History Last Menstrual Period: 10/04/18 - Smoking Cessation Smoking history: Current some day smoker Have you smoked in the past 12 months: No Aproximately how many cigarettes per day: 3 Cigars Per Day: 0 Hx Chewing Tobacco Use: No Initiated information on smoking cessation: Yes 'Breaking Loose' booklet given: 06/26/19 - Substances abused Alcohol Substance route: Oral Frequency: Daily Amount used: 1 quart of vodka Age of first use: 17 Date of last use: 06/26/19 Heroin Substance route: Inhalation Frequency: Daily Amount used: 10 bags Age of first use: 17 Date of last use: 06/26/19 Family Disease History - Family Disease History Family Disease History: Diabetes: Grandparent (mgm - dm, htn), Other: Father ( : CVA / alcoholic liver disease), Mother (alive, well), Brother (5 - 1 with AIDS), Sister (4 - 1 with THROAT CA), Son (4), Daughter ( 7) Admission Physical Exam S - Vital Signs Vital Signs: Vital Signs - 24 hr 06/26/19 09:18 Temperature 97.6 F Pulse Rate 76 Respiratory 18 Rate Blood Pressure 139/98 Cleared for Admission [facility] - Detox or Rehab [facility] Level of Care: Medically Managed Screened but not Admitted - Documentation of Visit Screened but not Admitted: No Breathalyzer - Breathalyzer Breathalyzer: 0.055 Vital Signs - Vital Signs Vital signs refused: No Temperature: 97.6 F Temperature source: Oral Pulse Rate: 76 Respiratory Rate: 18 Blood Pressure: 139/96 BP Location: Left Arm Blood Pressure position: Sitting - Height Height: 5 ft 9 in - Weight Weight: 145 lb Weight measurement method: Standing scale - BMI Body Mass Index (BMI): 21.4 - Bowel Function Bowel Movement: Yes Urine Drug Screen - Test Device Lot number: [id number] Expiration date: 03/30/21 - Control Is test valid?: Yes - Results Drug screen NEGATIVE: No Urine drug screen results: THC-Marijuana, MOP-Opiates, BZO-Benzodiazepines Inpatient Rehab Admission - Rehab Decision to Admit Inpatient rehab admission?: No
[2019-06-26 11:05] VITALS: BMI 21.4
[2019-06-26] MEDS ORDERED: ACETAMINOPHEN 325 MG TABLET (FP) PO PRN ×2 (11:05)
[2019-06-26] MEDS ORDERED: MAGNESIUM CITRATE 300 ML BOTTLE PO PRN (11:05)
[2019-06-26] MEDS ORDERED: BISMUTH SUBSALICYLATE 262 MG/15 ML BTL PO PRN (11:05)
[2019-06-26] MEDS ORDERED: MAGNESIUM HYDROX 2400MG/30ML ORAL SUSPENSION 30 ML CUP PO PRN (11:05)
[2019-06-26] MEDS ORDERED: IBUPROFEN 400 MG TABLET (FP) PO PRN (11:05)
[2019-06-26] MEDS ORDERED: MENTHOL/PHENOL 1 EACH UD MM PRN (11:05)
[2019-06-26] MEDS ORDERED: hydrOXYzine PAMOATE 25 MG CAPSULE (FP) PO PRN (11:05)
[2019-06-26] MEDS ORDERED: MAG HYDROX/AL HYDROX/SIMETH 30 ML UNIT-DOSE CUP PO PRN (11:05)
[2019-06-26] MEDS ORDERED: RANITIDINE HCL 150 MG TABLET (FP) PO PRN (11:08)
[2019-06-26] MEDS ORDERED: ALBUTEROL SO4 8 GM HFA INHALER IH PRN (11:08)
[2019-06-26] MEDS ORDERED: METHADONE HCL 10 MG TABLET (FOR DETOX USE ONLY) PO ONE (12:05)
[2019-06-26] MEDS: chlordiazePOXIDE HCL 25 MG CAPSULE PO PRN (12:40)
[2019-06-26 14:30] LABS: HEMATOCRIT 38.2 % (32.4-45.2); HEMOGLOBIN 12.9 GM/dL (10.7-15.3); MCH 32.8 pg (25.7-33.7); MCHC 33.7 g/dl (32.0-36.0); MEAN CELL VOLUME 97.4 fl (80-96); MEAN PLT VOLUME 10.8 fl (7.5-11.1); RBC 3.92 M/mm3 (3.60-5.2); RDW 14.5 % (11.6-15.6); WHITE BLOOD COUNT 5.8 K/mm3 (4.0-10.0)
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
[2019-06-26 14:50] LABS: ALBUMIN 3.8 g/dl (3.4-5.0); BILIRUBIN,TOTAL 0.4 mg/dL (0.2-1); BLOOD UREA NITROGEN 13.6 mg/dL (7-18); CALCIUM 8.9 mg/dL (8.5-10.1); CREATININE 0.8 mg/dL (0.55-1.3); POTASSIUM 3.9 mmol/L (3.5-5.1); TOT PROT 7.4 g/dl (6.4-8.2)
[2019-06-26 16:24] LABS: CORRECTED WBC 6.2 K/mm3
[2019-06-26] MEDS: cloNIDine HCL 0.1 MG TABLET PO PRN (17:12)
[2019-06-26] MEDS: METHOCARBAMOL 500 MG TABLET PO PRN ×2 (17:13→22:28)
[2019-06-26] MEDS: chlordiazePOXIDE HCL 25 MG CAPSULE PO SCH (22:27)
[2019-06-26] MEDS: THIAMINE HCL 100 MG TABLET (FP) PO SCH (22:27)
[2019-06-26] MEDS: MELATONIN 5 MG TABLETS PO PRN (22:28)
[2019-06-27] MEDS: chlordiazePOXIDE HCL 25 MG CAPSULE PO SCH ×4 (05:25→22:13)
[2019-06-27] MEDS: cloNIDine HCL 0.1 MG TABLET PO PRN ×3 (05:29→22:15)
[2019-06-27] MEDS: METHOCARBAMOL 500 MG TABLET PO PRN ×3 (05:32→22:15)
[2019-06-27] MEDS ORDERED: METHADONE HCL 10 MG TABLET (FOR DETOX USE ONLY) ONE (08:57)
[2019-06-27] MEDS ORDERED: METHADONE HCL 5 MG TABLET (FOR DETOX USE ONLY) ONE (08:57)
[2019-06-27] MEDS ORDERED: PRENATAL VITAMINS W/ FOLIC ACID TABLET (FP) PO SCH (10:00)
[2019-06-27] MEDS ORDERED: PATIENT'S OWN MEDICATION (NON-FORMULARY) (Sofosbuvir/Velpatasvir [Epclusa 400 Mg-100 Mg Ta PO SCH (10:00)
[2019-06-27] MEDS ORDERED: METHADONE (DETOX) 20 MG, METHADONE (DETOX) 5 MG PO ONE (10:00)
[2019-06-27] MEDS ORDERED: diphenhydrAMINE HCL 50 MG CAPSULE PO ONE (14:22)
[2019-06-27] MEDS ORDERED: diphenhydrAMINE HCL 25 MG CAPSULE (FP) PO ONE (14:32)
--- NOTE | 2019-06-27 14:36 | PN ---
[facility] CIWA - CIWA Score Nausea/Vomitin-Mild Nausea/No Vomiting Muscle Tremors: 4-Moderate,w/Arms Extend Anxiety: 3 Agitation: 2 Paroxysmal Sweats: 2 Orientation: 0-Oriented Tacttile Disturbances: 1-Very Mild Itch/Numbness Auditory Disturbances: 0-None Visual Disturbances: 1-Very Mild Sensitivity Headache: 1-Very Mild CIWA-Ar Total Score: 15 BHS COWS - Scale Resting Pulse: 0= [place] 80 or Below Sweatin= Chills/Flushing Restless Observation: 0= Sits Still Pupil Size: 1= Pupils >than Normal Bone or Joint Aches: 1= Mild Discomfort Runny Nose/ Eye Tearin= Nasal Congestion GI Upset > 30mins: 2= Nausea/Diarrhea Tremor Observation of Outstretched Hands: 2= Slight Tremor Visible Yawning Observation: 2= >3x During Session Anxiety or Irritability: 2=Irritable/Anxious Goose Flesh Skin: 3=Piloerection COWS Score: 15 BHS Progress Note (SOAP) Subjective: 48 years old female admitted on 06/26/19 for alcohol and opiate withdrawal sx management doing well with libirum and methadone detox regimen patient is in the process of hepatitis c treatment begin 04/2019 bought in own medication continue hepatitis c treatment long history of dystonia unknown origin possible drug induced treated with benadryl with good effect to avoid risk of suffocation of dystonia as patient presented swelling tongue order benadryl 50 mg IM prn if needed patient has asthma ventolin with nebulizer prn begn benadryl 50 mg po bid seen by psychiatrist begin seroquel 100 mg po hs Objective: 06/27/19 14:42 Vital Signs Temperature 95.2 F L 06/27/19 13:14 Pulse Rate 48 L 06/27/19 13:14 Respiratory Rate 18 06/27/19 13:14 Blood Pressure 99/66 06/27/19 13:14 O2 Sat by Pulse Oximetry (%) Laboratory Last Values WBC 5.8 K/mm3 (4.0-10.0) 06/26/19 11:00 Corrected WBC (auto) 6.20 K/mm3 06/26/19 11:00 RBC 3.92 M/mm3 (3.60-5.2) 06/26/19 11:00 Hgb 12.9 GM/dL (10.7-15.3) 06/26/19 11:00 Hct 38.2 % (32.4-45.2) 06/26/19 11:00 MCV 97.4 fl (80-96) H 06/26/19 11:00 MCH 32.8 pg (25.7-33.7) 06/26/19 11:00 MCHC 33.7 g/dl (32.0-36.0) 06/26/19 11:00 RDW 14.5 % (11.6-15.6) 06/26/19 11:00 Plt Count 156 K/MM3 (134-434) D 06/26/19 11:00 MPV 10.8 fl (7.5-11.1) 06/26/19 11:00 Manual Slide Review 06/26/19 11:00 Platelet Comment 06/26/19 11:00 Sodium 140 mmol/L (136-145) 06/26/19 11:00 Potassium 3.9 mmol/L (3.5-5.1) 06/26/19 11:00 Chloride 107 mmol/L (98-107) 06/26/19 11:00 Carbon Dioxide 23 mmol/L (21-32) 06/26/19 11:00 Anion Gap 11 MMOL/L (8-16) 06/26/19 11:00 BUN 13.6 mg/dL (7-18) 06/26/19 11:00 Creatinine 0.8 mg/dL (0.55-1.3) 06/26/19 11:00 Est GFR (CKD-EPI)AfAm 101.75 06/26/19 11:00 Est GFR (CKD-EPI)NonAf 87.79 06/26/19 11:00 Random Glucose 59 mg/dL (74-106) L 06/26/19 11:00 Calcium 8.9 mg/dL (8.5-10.1) 06/26/19 11:00 Total Bilirubin 0.4 mg/dL (0.2-1) 06/26/19 11:00 AST 46 U/L (15-37) H 06/26/19 11:00 ALT 46 U/L (13-61) 06/26/19 11:00 Alkaline Phosphatase 93 U/L (45-117) 06/26/19 11:00 Total Protein 7.4 g/dl (6.4-8.2) 06/26/19 11:00 Albumin 3.8 g/dl (3.4-5.0) 06/26/19 11:00 RPR Titer Nonreactive (NONREACTIVE) 06/26/19 11:00 lab noted Assessment: 06/27/19 14:42 alcohol and opiate withdrawal sx Laboratory Last Values patient is alert oriented x 3 slurred speech order benadryl 50 mg po stat follow benadryl 50 mg po prn 06/27/19 14:43 Plan: continue libirm and methadone detox
[2019-06-27] MEDS ORDERED: ALBUTEROL SO4 0.083% IH SOL 2.5 MG/3 ML VIAL.NEB. NEB PRN (14:41)
[2019-06-27] MEDS: chlordiazePOXIDE HCL 25 MG CAPSULE PO PRN (15:51)
[2019-06-27] MEDS ORDERED: diphenhydrAMINE HCL 50 MG CAPSULE PO SCH (22:00)
[2019-06-27] MEDS: THIAMINE HCL 100 MG TABLET (FP) PO SCH (22:12)
[2019-06-27] MEDS: MELATONIN 5 MG TABLETS PO PRN (22:13)
[2019-06-28] MEDS ORDERED: chlordiazePOXIDE HCL 25 MG CAPSULE PO SCH (05:00)
[2019-06-28 09:13] VITALS: BP 113/78; PULSE 53; TEMP 96.8
[2019-06-28] MEDS ORDERED: METHADONE HCL 10 MG TABLET (FOR DETOX USE ONLY) PO ONE (10:00)
--- NOTE | 2019-06-28 10:29 | DS ---
[facility] Detox Discharge Summary Admission Date: 06/26/19 Discharge Date: 06/28/19 - History Present History: Alcohol Dependence, Opioid Dependence Additional Comments: 48 years old female multiple [facility], was admitted on 06/26/19 for alcohol and opiate withdrawal sx management doing well with librium and methadone detox regimen insists to leave the detox unit due to "get my check from social service" patient is alert oriented x 3 denies dizziness mild tremor less body aches, speech clearly no trouble swallow or chew food ambulating steady gait no diarrhea no vomiting encourage the patient seeking medication assisted treatment program Pertinent Past History: asthma gerd hepatitis c in the process of treatment 2nd month - Physical Exam Results Vital Signs: Vital Signs Temperature 96.8 F L 06/28/19 09:13 Pulse Rate 53 L 06/28/19 09:13 Respiratory Rate 18 06/28/19 09:13 Blood Pressure 113/78 06/28/19 09:13 O2 Sat by Pulse Oximetry (%) Pertinent Admission Physical Exam Findings: alcohol and opiate withdrawal sx Laboratory Last Values WBC 5.8 K/mm3 (4.0-10.0) 06/26/19 11:00 Corrected WBC (auto) 6.20 K/mm3 06/26/19 11:00 RBC 3.92 M/mm3 (3.60-5.2) 06/26/19 11:00 Hgb 12.9 GM/dL (10.7-15.3) 06/26/19 11:00 Hct 38.2 % (32.4-45.2) 06/26/19 11:00 MCV 97.4 fl (80-96) H 06/26/19 11:00 MCH 32.8 pg (25.7-33.7) 06/26/19 11:00 MCHC 33.7 g/dl (32.0-36.0) 06/26/19 11:00 RDW 14.5 % (11.6-15.6) 06/26/19 11:00 Plt Count 156 K/MM3 (134-434) D 06/26/19 11:00 MPV 10.8 fl (7.5-11.1) 06/26/19 11:00 Manual Slide Review 06/26/19 11:00 Platelet Comment 06/26/19 11:00 Sodium 140 mmol/L (136-145) 06/26/19 11:00 Potassium 3.9 mmol/L (3.5-5.1) 06/26/19 11:00 Chloride 107 mmol/L (98-107) 06/26/19 11:00 Carbon Dioxide 23 mmol/L (21-32) 06/26/19 11:00 Anion Gap 11 MMOL/L (8-16) 06/26/19 11:00 BUN 13.6 mg/dL (7-18) 06/26/19 11:00 Creatinine 0.8 mg/dL (0.55-1.3) 06/26/19 11:00 Est GFR (CKD-EPI)AfAm 101.75 06/26/19 11:00 Est GFR (CKD-EPI)NonAf 87.79 06/26/19 11:00 Random Glucose 59 mg/dL (74-106) L 06/26/19 11:00 Calcium 8.9 mg/dL (8.5-10.1) 06/26/19 11:00 Total Bilirubin 0.4 mg/dL (0.2-1) 06/26/19 11:00 AST 46 U/L (15-37) H 06/26/19 11:00 ALT 46 U/L (13-61) 06/26/19 11:00 Alkaline Phosphatase 93 U/L (45-117) 06/26/19 11:00 Total Protein 7.4 g/dl (6.4-8.2) 06/26/19 11:00 Albumin 3.8 g/dl (3.4-5.0) 06/26/19 11:00 POC Urine HCG, Qual Negative 06/26/19 09:57 RPR Titer Nonreactive (NONREACTIVE) 06/26/19 11:00 lab notedf - Treatment Hospital Course: Detox Protocol Followed, Responded well Patient has Accepted a Rehab Referral to: community support approach - Medication Discharge Medications: Ambulatory Orders Ranitidine [Zantac -] 150 mg PO DAILY PRN #30 tablet MDD 1 04/03/19 Sofosbuvir/Velpatasvir [Epclusa 400 mg-100 mg Tablet] 1 each PO DAILY #28 tablet 04/03/19 traZODone HCL [Trazodone HCl] 100 mg PO HS 04/03/19 Albuterol Sulfate Inhaler - [Ventolin HFA Inhaler -] 1 - 2 inh PO QID #1 inhaler 04/12/19 Quetiapine Fumarate [Seroquel] 1 tab PO HS #7 tablet 04/26/19 - Diagnosis (1) Alcohol use disorder Current Visit: Yes Status: Acute (2) Opioid use disorder Current Visit: Yes Status: Acute (3) Nicotine dependence Current Visit: Yes Status: Acute Qualifiers: Nicotine product type: cigarettes Substance use status: in withdrawal Qualified Code(s): F17.213 - Nicotine dependence, cigarettes, with withdrawal (4) Substance induced mood disorder Current Visit: Yes Status: Suspected (5) Weight loss Current Visit: Yes Status: Acute (6) Asthma Current Visit: Yes Status: Chronic Qualifiers: Asthma severity: mild Asthma persistence: intermittent Asthma complication type: with status asthmaticus Qualified Code(s): J45.22 - Mild intermittent asthma with status asthmaticus (7) GERD (gastroesophageal reflux disease) Current Visit: Yes Status: Chronic Qualifiers: Esophagitis presence: without esophagitis Qualified Code(s): K21.9 - Gastro -esophageal reflux disease without esophagitis (8) Hepatitis C Current Visit: Yes Status: Chronic Qualifiers: Viral hepatitis chronicity: chronic Hepatic coma status: without hepatic coma Qualified Code(s): B18.2 - Chronic viral hepatitis C - AMA Did Patient Leave Against Medical Advice: Yes CIWA Score - CIWA Score Nausea/Vomitin-Mild Nausea/No Vomiting Muscle Tremors: 3 Anxiety: 2 Agitation: 1-Slight > Activity Paroxysmal Sweats: 1-Minimal Palms Moist Orientation: 0-Oriented Tacttile Disturbances: 1-Very Mild Itch/Numbness Auditory Disturbances: 0-None Visual Disturbances: 1-Very Mild Sensitivity Headache: 0-None Present CIWA-Ar Total Score: 10 COWS (PN) - Opiate Withdrawal Resting Pulse: 0= [place] 80 or Below Sweatin= Chills/Flushing Restless Observation: 0= Sits Still Pupil Size: 1= Pupils >than Normal Bone or Joint Aches: 1= Mild Discomfort Runny Nose/ Eye Tearin= Nasal Congestion GI Upset > 30mins: 1= Stomach Cramp Tremor Observation of Outstretched Hands: 2= Slight Tremor Visible Yawning Observation: 1= 1-2x During Session Anxiety or Irritability: 2=Irritable/Anxious Goose Flesh Skin: 0=Smooth Skin COWS Score: 10
[2019-06-29] MEDS ORDERED: chlordiazePOXIDE HCL 10 MG CAPSULE PO PRN
[2019-06-29] MEDS ORDERED: chlordiazePOXIDE HCL 10 MG CAPSULE PO SCH (05:00)
[2019-06-29] MEDS ORDERED: METHADONE (DETOX) 10 MG, METHADONE (DETOX) 5 MG PO ONE (10:00)
[2019-06-30] MEDS ORDERED: chlordiazePOXIDE HCL 10 MG CAPSULE PO SCH (05:00)
[2019-06-30] MEDS ORDERED: METHADONE HCL 10 MG TABLET (FOR DETOX USE ONLY) PO ONE (10:00)
[2019-07-01] MEDS ORDERED: chlordiazePOXIDE HCL 10 MG CAPSULE PO ONE (05:00)
[2019-07-01] MEDS ORDERED: METHADONE HCL 5 MG TABLET (FOR DETOX USE ONLY) PO ONE (06:00)
== END 2019-06-28 09:19 | disposition left against medical advice (07) | DRG 770 ==
LOC: YASAS 08:29 → Y3N 11:54
PROVIDERS: ADMIT Surgery; ATTEND Surgery
PROC: HZ2ZZZZ Detoxification Services for Substance Abuse Treatment (ICD-10-PCS; principal; 2019-06-26)
DX: F10.230 Alcohol dependence with withdrawal, uncomplicated (principal); F11.20 Opioid dependence, uncomplicated; F17.210 Nicotine dependence, cigarettes, uncomplicated; F25.0 Schizoaffective disorder, bipolar type; F43.10 Post-traumatic stress disorder, unspecified; F31.9 Bipolar disorder, unspecified; F19.24 Other psychoactive substance dependence with psychoactive substance-induced mood disorder; J45.22 Mild intermittent asthma with status asthmaticus; K21.9 Gastro-esophageal reflux disease without esophagitis; B18.2 Chronic viral hepatitis C; R63.4 Abnormal weight loss; Z68.21 Body mass index [BMI] 21.0-21.9, adult; Z86.2 Personal history of diseases of the blood and blood-forming organs and certain disorders involving the immune mechanism; Z88.8 Allergy status to other drugs, medicaments and biological substances; Z91.19 Patient's noncompliance with other medical treatment and regimen; Z87.19 Personal history of other diseases of the digestive system
CPT/HCPCS: 36415; 80053; 81025; 85027; 86593; J0735

== ENCOUNTER 2019-07-06 09:29 | Inpatient (IN) | payer OTHER ==
[2019-07-06 11:42] VITALS: BMI 27.0
--- NOTE | 2019-07-06 13:05 | HP ---
COWS - Scale Resting Pulse: 1= SC 81-100 Sweatin= Chills/Flushing Restless Observation: 3= Extraneous Movement Pupil Size: 0= Normal to Room Light Bone or Joint Aches: 2= Severe Diffuse Aches Runny Nose/ Eye Tearin= Runny Nose/Eyes GI Upset > 30mins: 1= Stomach Cramp Tremor Observation: 2= Slight Tremor Visible Yawning Observation: 0= None Anxiety or Irritability: 2=Irritable/Anxious Goose Flesh Skin: 0=Smooth Skin COWS Score: 14 CIWA Score Nausea/Vomitin-No Nausea/No Vomiting Muscle Tremors: 4-Moderate,w/Arms Extend Anxiety: 3 Agitation: 3 Paroxysmal Sweats: 1-Minimal Palms Moist Orientation: 1-Uncertain about Date Tacttile Disturbances: 1-Very Mild Itch/Numbness Auditory Disturbances: 0-None Visual Disturbances: 2-Mild Sensitivity Headache: 5-Severe CIWA-Ar Total Score: 20 - Admission Criteria OASAS Guidelines: Admission for Medically Managed Detox: Requires at least one of the followin. CIWA greater than 12 2. Seizures within the past 24 hours 3. Delirium tremens within the past 24 hours 4. Hallucinations within the past 24 hours 5. Acute intervention needed for co occurring medical disorder 6. Acute intervention needed for co occurring psychiatric disorder 7. Severe withdrawal that cannot be handled at a lower level of care (continued vomiting, continued diarrhea, abnormal vital signs) requiring intravenous medication and/or fluids 8. Admission [facility] Chief Complaint: detox heroin Allergies/Adverse Reactions: Allergies Allergy/AdvReac Type Severity Reaction Status Date / Time metoclopramide HCl Allergy Severe dystonic Verified 07/06/19 11:16 [From Reglan] reaction prochlorperazine maleate Allergy Severe DYSTONIA Verified 07/06/19 11:16 [From Compazine] haloperidol [From Haldol] Allergy Verified 07/06/19 11:16 mirtazapine [From Remeron] AdvReac Severe Difficulty Verified 07/06/19 11:16 Breathing History of Present Illness: 48F w/ pmh of HepC(on Epclusa), pancreatitis, schizophrenia, PTSD, bipolar, asthma presenting for detox from heroin. Uses heroin(intranasal) [id number] daily. First use at 17y/o. Last usage, 1bag ~0600.Denies OD. Drinks 1gallon per day. Last usage was prior to presentation. Blackouts x2. Denies seizures. Smokes MJ daily. Denies benzo usage. Smokes 3cig/daily. Recently, discharged from detox ~ 1week prior. Did not go to rehab. Would like to go to Rehab after Detox. Incarcerated for 90d at ~36y/o for alcoholism. Lives with s/o who supports her financially. Has 11children(ages 4-30y/o) Exam Limitations: Intoxication - Ebola screening Have you traveled outside of the country in the last 21 days: No (N) Have you had contact with anyone from an Ebola affected area: No Do you have a fever: No - Review of Systems Constitutional: Chills EENT: denies: Blurred Vision, Double Vision Respiratory: reports: Productive cough (2mo. Last inhaler usage was 2d prior) Cardiac: denies: Chest Pain, Palpitations GI: reports: Diarrhea. denies: Constipated, Nausea, Vomiting, Abdominal cramping Musculoskeletal: reports: Joint Pain. denies: Muscle Weakness Neuro: reports: Headache (severe) Psychiatric: reports: Agitated, Anxious Patient History - Patient Medical History Hx Anemia: Yes (as a teen, had iron and transfusions) Hx Asthma: Yes (albuterol pump used yesterday) Hx Chronic Obstructive Pulmonary Disease (COPD): No Hx Cancer: No Hx Cardiac Disorders: No Hx Congestive Heart Failure: No Hx Hypertension: No Hx Hypercholesterolemia: No Hx Pacemaker: No HX Cerebrovascular Accident: No Hx Seizures: Yes (reports dystonia last week during admission) Hx Dementia: No Hx Diabetes: No Hx Gastrointestinal Disorders: No Hx Liver Disease: Yes (hepatitis C, being treated with epclusa) Hx Genitourinary Disorders: No Hx Sexually Transmitted Disorders: No Hx Renal Disease (ESRD): No Hx Thyroid Disease: No Hx Human Immunodeficiency Virus (HIV): No (last 01/16 negative) Hx Hepatitis C: Yes Hx Depression: Yes Hx Suicide Attempt: No Hx Bipolar Disorder: Yes (no med,non compliance) Hx Schizophrenia: Yes - Patient Surgical History Past Surgical History: Yes Hx Neurologic Surgery: No Hx Cataract Extraction: No Hx Cardiac Surgery: No Hx Lung Surgery: No Hx Breast Surgery: No Hx Breast Biopsy: No Hx Abdominal Surgery: No Hx Appendectomy: No Hx Cholecystectomy: No Hx Genitourinary Surgery: No Hx Section: Yes (x 2) Hx Orthopedic Surgery: No Hx Hysterectomy: No Other Surgical History: age 9 - abscess/tumor, benign per pt Anesthesia Reaction: No - PPD History Date: 02/17/19 Results: 0mm - Reproductive History Last Menstrual Period: 10/04/18 - Smoking Cessation Smoking history: Current some day smoker Have you smoked in the past 12 months: No Aproximately how many cigarettes per day: 3 Cigars Per Day: 0 Hx Chewing Tobacco Use: No Initiated information on smoking cessation: No - Substance & Tx. History Hx Alcohol Use: Yes (1gallon vodka) Hx Substance Use: Yes Substance Use Type: Alcohol, Heroin, Marijuana, Opiates - Substances abused Alcohol Substance route: Oral Frequency: Daily Amount used: 2 pints of vodka Age of first use: 17 Date of last use: 07/06/19 Heroin Substance route: Inhalation Frequency: Daily Amount used: 10 bags Age of first use: 17 Date of last use: 07/06/19 Family Disease History - Family Disease History Family Disease History: Diabetes: Grandparent (mgm - dm, htn), Other: Father ( : CVA / alcoholic liver disease), Mother (alive, well), Brother (5 - 1 with AIDS), Sister (4 - 1 with THROAT CA), Son (4), Daughter ( 7) Admission Physical Exam [facility] - Vital Signs Vital Signs: Vital Signs - 24 hr 07/06/19 11:35 Temperature 97.4 F L Pulse Rate 90 Respiratory 16 Rate Blood Pressure 120/81 - Physical General Appearance: Yes: Intoxicated, Thin, Tremorous, Irritable, Anxious HEENTM: Yes: Other (well-healed scars x2 forehead, Left lutheran with well-healed scar). No: Pale Conjunctivae R, Pale Conjunctivae L, Scleral Ictenus R, Scleral Ictenus L Respiratory: Yes: Within Normal Limits, Chest Non-Tender, Lungs Clear, Normal Breath Sounds, No Respiratory Distress, No Accessory Muscle Use Neck: Yes: Supple, Trachea in good position Cardiology: Yes: Regular Rhythm, Regular Rate, S1, S2 Abdominal: Yes: Within Normal Limits, Normal Bowel Sounds, Non Tender, Flat, Soft Musculoskeletal: Yes: full range of Motion Extremities: Yes: Normal Inspection Neurological: Yes: Alert Breathalyzer - Breathalyzer Breathalyzer: 0.233 Urine Drug Screen - Test Device Lot number: [id number] Expiration date: 03/30/21 - Control Is test valid?: Yes - Results Drug screen NEGATIVE: No Urine drug screen results: THC-Marijuana, MOP-Opiates, OXY-Oxycodone, MTD- Methadone, BZO-Benzodiazepines Inpatient Rehab Admission - Rehab Decision to Admit Inpatient rehab admission?: No
[2019-07-06] MEDS ORDERED: NICOTINE POLACRILEX 4 MG GUM BUC PRN (13:30)
[2019-07-06] MEDS ORDERED: MAGNESIUM CITRATE 300 ML BOTTLE PO PRN (13:30)
[2019-07-06] MEDS ORDERED: cloNIDine HCL 0.1 MG TABLET PO PRN (13:30)
[2019-07-06] MEDS ORDERED: ACETAMINOPHEN 325 MG TABLET (FP) PO PRN ×2 (13:30)
[2019-07-06] MEDS ORDERED: MAG HYDROX/AL HYDROX/SIMETH 30 ML UNIT-DOSE CUP PO PRN (13:30)
[2019-07-06] MEDS ORDERED: MAGNESIUM HYDROX 2400MG/30ML ORAL SUSPENSION 30 ML CUP PO PRN (13:30)
[2019-07-06] MEDS ORDERED: IBUPROFEN 400 MG TABLET (FP) PO PRN (13:30)
[2019-07-06] MEDS ORDERED: hydrOXYzine PAMOATE 25 MG CAPSULE (FP) PO PRN (13:30)
[2019-07-06] MEDS ORDERED: MENTHOL/PHENOL 1 EACH UD MM PRN (13:30)
[2019-07-06] MEDS ORDERED: BISMUTH SUBSALICYLATE 262 MG/15 ML BTL PO PRN (13:30)
--- NOTE | 2019-07-06 13:52 | PN ---
Teaching Attending Note Name of Resident: Valeriy Hylton ATTENDING PHYSICIAN STATEMENT I saw and evaluated the patient. I reviewed the resident's note and discussed the case with the resident. I agree with the resident's findings and plan as documented. SUBJECTIVE: 48 y.o. pt here requesting detox from etoh and heroin use , reports relapse 1 week ago 06/29/19 after d/c from this facility , heroin via inhalation 10 bags/day , etoh 1.5 pints , latest use yesterday , current symptoms as above. PMH hepatitis C (on epclusa), schizophrenia, bipolar, depression, anxiety, asthma, hx pancreatitis, thrombocytopenia , has own psychiatrist in the community , brought meds . OBJECTIVE: wnwd , intoxicated , unsteady / staggering gait. Vital Signs - 24 hr 07/06/19 11:35 Temperature 97.4 F L Pulse Rate 90 Respiratory 16 Rate Blood Pressure 120/81 ASSESSMENT AND PLAN: etoh dependence with intoxication - Librium taper opioid dependence - Methadone taper encouraged participation in rehab .
[2019-07-06] MEDS ORDERED: ALBUTEROL SO4 8 GM HFA INHALER IH SCH (14:00)
[2019-07-06] MEDS ORDERED: METHADONE HCL 10 MG TABLET (FOR DETOX USE ONLY) PO ONE (14:10)
[2019-07-06] MEDS ORDERED: ALBUTEROL SO4 8 GM HFA INHALER IH PRN (15:30)
[2019-07-06] MEDS: chlordiazePOXIDE HCL 25 MG CAPSULE PO SCH ×2 (17:02→22:13)
[2019-07-06] MEDS ORDERED: LITHIUM CARBONATE PO SCH ×2 (22:00)
[2019-07-06] MEDS ORDERED: PATIENT'S OWN MEDICATION (NON-FORMULARY) (Olanzapine [Olanzapine] 15 MG) PO SCH (22:00)
[2019-07-06] MEDS ORDERED: PATIENT'S OWN MEDICATION (NON-FORMULARY) (Gabapentin [Neurontin] 600 MG) PO SCH (22:00)
[2019-07-06] MEDS: THIAMINE HCL 100 MG TABLET (FP) PO SCH (22:13)
[2019-07-06] MEDS: MELATONIN 5 MG TABLETS PO PRN (22:13)
[2019-07-07] MEDS: chlordiazePOXIDE HCL 25 MG CAPSULE PO SCH ×4 (05:37→22:26)
[2019-07-07] MEDS ORDERED: METHADONE HCL 5 MG TABLET (FOR DETOX USE ONLY) PO ONE (10:00)
[2019-07-07] MEDS: PRENATAL VITAMINS W/ FOLIC ACID TABLET (FP) PO SCH (10:07)
[2019-07-07] MEDS: METHOCARBAMOL 500 MG TABLET PO PRN ×3 (10:08→22:29)
[2019-07-07] MEDS: EPCLUSA PO SCH (10:08)
[2019-07-07] MEDS: chlordiazePOXIDE HCL 25 MG CAPSULE PO PRN (13:38)
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
--- NOTE | 2019-07-07 16:52 | PN ---
S CIWA - CIWA Score Nausea/Vomitin-No Nausea/No Vomiting Muscle Tremors: None Anxiety: 3 Agitation: 2 Paroxysmal Sweats: No Perspiration Orientation: 0-Oriented Tacttile Disturbances: 2-Mild Itch/Numbness/Burn Auditory Disturbances: 1-Very Mild Visual Disturbances: 3-Moderate Sensitivity Headache: 0-None Present CIWA-Ar Total Score: 11 BHS COWS - Scale Resting Pulse: 0= [place] 80 or Below Sweatin= Chills/Flushing Restless Observation: 1= Difficult to Sit Still Pupil Size: 0= Normal to Room Light Bone or Joint Aches: 2= Severe Diffuse Aches Runny Nose/ Eye Tearin= None GI Upset > 30mins: 0= None Tremor Observation of Outstretched Hands: 0= None Yawning Observation: 1= 1-2x During Session Anxiety or Irritability: 2=Irritable/Anxious Goose Flesh Skin: 3=Piloerection COWS Score: 10 S Progress Note (SOAP) Subjective: Body Aches, Anxious, Sweating. Objective: PATIENT A & O X 3, OBSERVED AMBULATING ON DETOX UNIT UNASSISTED. IN NO ACUTE DISTRESS. 07/07/19 16:50 Vital Signs Temperature 97.7 F 07/07/19 13:30 Pulse Rate 52 L 07/07/19 13:30 Respiratory Rate 18 07/07/19 13:30 Blood Pressure 100/71 07/07/19 13:30 O2 Sat by Pulse Oximetry (%) RESULTS OF LABS FROM 06/26/2019 NOTED. 07/07/19 16:51 Assessment: 07/07/19 16:52 WITHDRAWAL SYMPTOMS. Plan: CONTINUE DETOX.
[2019-07-07] MEDS: traZODone HCL 50 MG TABLET (FP) PO SCH (22:25)
[2019-07-07] MEDS: OLANZapine 7.5 MG TABLET PO SCH (22:25)
[2019-07-07] MEDS: THIAMINE HCL 100 MG TABLET (FP) PO SCH (22:25)
[2019-07-07] MEDS: MELATONIN 5 MG TABLETS PO PRN (22:26)
[2019-07-08] MEDS: chlordiazePOXIDE HCL 25 MG CAPSULE PO SCH ×4 (05:32→22:05)
[2019-07-08] MEDS: METHOCARBAMOL 500 MG TABLET PO PRN ×3 (05:33→18:09)
[2019-07-08] MEDS: chlordiazePOXIDE HCL 25 MG CAPSULE PO PRN ×3 (08:48→19:16)
[2019-07-08] MEDS ORDERED: METHADONE HCL 10 MG TABLET (FOR DETOX USE ONLY) PO ONE (10:00)
[2019-07-08] MEDS: PRENATAL VITAMINS W/ FOLIC ACID TABLET (FP) PO SCH (10:11)
[2019-07-08] MEDS: EPCLUSA PO SCH (10:11)
--- NOTE | 2019-07-08 10:21 | PN ---
[facility] CIWA - CIWA Score Nausea/Vomitin-Mild Nausea/No Vomiting Muscle Tremors: 2 Anxiety: 2 Agitation: 2 Paroxysmal Sweats: 1-Minimal Palms Moist Orientation: 0-Oriented Tacttile Disturbances: 0-None Auditory Disturbances: 0-None Visual Disturbances: 0-None Headache: 0-None Present CIWA-Ar Total Score: 8 BHS COWS - Scale Resting Pulse: 0= [place] 80 or Below Sweatin= Chills/Flushing Restless Observation: 0= Sits Still Pupil Size: 0= Normal to Room Light Bone or Joint Aches: 1= Mild Discomfort Runny Nose/ Eye Tearin= Nasal Congestion GI Upset > 30mins: 2= Nausea/Diarrhea Tremor Observation of Outstretched Hands: 1= Tremor [place], Not Seen Yawning Observation: 1= 1-2x During Session Anxiety or Irritability: 1=Feels Anxious/Irritable Goose Flesh Skin: 0=Smooth Skin COWS Score: 8 S Progress Note (SOAP) Subjective: 48 years old female multiple patient [facility] admission since 2013 was admitted on 07/06/19 for alcohol and opiate withdrawal sx management doing well with libirum and methadone detox regimen resting on bed limited conversation with staff no eye contact ambulate from bed to bathroom and return to bed lying on bed comfortably Objective: 07/08/19 10:23 Vital Signs Temperature 96.8 F L 07/08/19 09:40 Pulse Rate 67 07/08/19 09:40 Respiratory Rate 18 07/08/19 09:40 Blood Pressure 104/75 07/08/19 09:40 O2 Sat by Pulse Oximetry (%) 07/08/19 10:25 05/2019 lab reviewed unremarkable no need repeat low lithium current lithium pending Assessment: 07/08/19 10:26 alcohol and opiate withdrawal sx alert skin warm and moist irritable Plan: continue librium and methadone detox
[2019-07-08] MEDS ORDERED: diphenhydrAMINE HCL 50 MG CAPSULE PO PRN (11:13)
[2019-07-08] MEDS ORDERED: LIDOCAINE 5% TOPICAL PATCH TP SCH (11:15)
[2019-07-08] MEDS ORDERED: diphenhydrAMINE HCL 25 MG CAPSULE (FP) PO ONE (11:34)
[2019-07-08] MEDS ORDERED: LIDOCAINE PATCH REMOVAL MC SCH (22:00)
[2019-07-08] MEDS: OLANZapine 7.5 MG TABLET PO SCH (22:05)
[2019-07-08] MEDS: THIAMINE HCL 100 MG TABLET (FP) PO SCH (22:05)
[2019-07-08] MEDS: traZODone HCL 50 MG TABLET (FP) PO SCH (22:06)
[2019-07-08] MEDS: MELATONIN 5 MG TABLETS PO PRN (22:08)
[2019-07-09] MEDS ORDERED: chlordiazePOXIDE HCL 10 MG CAPSULE PO PRN
[2019-07-09] MEDS ORDERED: chlordiazePOXIDE HCL 10 MG CAPSULE PO SCH (05:00)
[2019-07-09] MEDS ORDERED: METHADONE HCL 5 MG TABLET (FOR DETOX USE ONLY) PO ONE (06:00)
[2019-07-09 06:57] VITALS: BP 96/66; PULSE 55; TEMP 97.2
--- NOTE | 2019-07-09 13:09 | DS ---
[facility] Detox Discharge Summary Admission Date: 07/06/19 Discharge Date: 07/09/19 - History Present History: Alcohol Dependence, Opioid Dependence Additional Comments: 48 years old female multiple patient [facility] admission since 2015 was admitted on 07/06/19 for alcohol and opiate withdrawal sx management did well with librium and methadone detox regimen no complication through out the detox stay long history of bipolar with poly substance misuse seen by psychiatrist begin zyprexa and trazodone patient tolerates medications well prefers to begin recovery journal today patient is alert oriented x 3 calm and stable mood cardiac S1S2 regular rate rhythm clear lung bilaterally on auscultation denies dizziness negative claudification on ambulation full range of motion on all four extremities no shortness of breath abdomen soft no rebound tenderness no nausea tolerate food and fluid well - Physical Exam Results Vital Signs: Vital Signs Temperature 97.2 F L 07/09/19 06:00 Pulse Rate 55 L 07/09/19 06:00 Respiratory Rate 16 07/09/19 06:00 Blood Pressure 96/66 07/09/19 06:00 O2 Sat by Pulse Oximetry (%) Pertinent Admission Physical Exam Findings: alcohol and opiate withdrawal sx Laboratory Last Values POC Urine HCG, Qual Negative 07/06/19 12:23 lab see 05/2019 unremarkable no need for repeat admission lab - Treatment Hospital Course: Detox Protocol Followed, Detoxed Safely, Responded well, Discharged Condition Good, Rehab Referral Accepted Patient has Accepted a Rehab Referral to: community support approach - Medication Discharge Medications: Ambulatory Orders Ranitidine [Zantac -] 150 mg PO DAILY PRN #30 tablet MDD 1 04/03/19 traZODone HCL [Trazodone HCl] 200 mg PO HS 04/03/19 Albuterol Sulfate Inhaler - [Ventolin HFA Inhaler -] 1 - 2 inh PO QID #1 inhaler 04/12/19 Diphenhydramine [Benadryl Capsule -] 50 mg PO BID PRN 07/06/19 Epclusa 400 mg-100 mg Tablet 1 tablet PO DAILY 07/06/19 Gabapentin [Neurontin] 600 mg PO BID 07/06/19 [place] Carbonate [Eskalith -] 1 cap PO HS 07/06/19 [place] Carbonate [Eskalith -] 300 mg PO BID 07/06/19 Olanzapine 15 mg PO HS 07/06/19 - Diagnosis (1) Alcohol dependence with uncomplicated intoxication Status: Acute (2) Opioid abuse with intoxication, uncomplicated Status: Acute (3) Weight loss Status: Acute (4) Anemia Status: Chronic Qualifiers: Anemia type: unspecified type Qualified Code(s): D64.9 - Anemia, unspecified (5) Asthma Status: Chronic Qualifiers: Asthma severity: mild Asthma persistence: intermittent Asthma complication type: with status asthmaticus Qualified Code(s): J45.22 - Mild intermittent asthma with status asthmaticus (6) GERD (gastroesophageal reflux disease) Status: Chronic Qualifiers: Esophagitis presence: without esophagitis Qualified Code(s): K21.9 - Gastro -esophageal reflux disease without esophagitis (7) Hepatitis C Status: Chronic Qualifiers: Viral hepatitis chronicity: chronic Hepatic coma status: without hepatic coma Qualified Code(s): B18.2 - Chronic viral hepatitis C (8) Nicotine dependence Status: Acute Qualifiers: Nicotine product type: cigarettes Substance use status: in withdrawal Qualified Code(s): F17.213 - Nicotine dependence, cigarettes, with withdrawal (9) Substance induced mood disorder Status: Suspected - AMA Did Patient Leave Against Medical Advice: No
[2019-07-10] MEDS ORDERED: chlordiazePOXIDE HCL 10 MG CAPSULE PO SCH (05:00)
[2019-07-11] MEDS ORDERED: chlordiazePOXIDE HCL 10 MG CAPSULE PO ONE (05:00)
== END 2019-07-09 09:02 | disposition home or self-care (01) | DRG 773 ==
LOC: YASAS 09:29 → Y3N 13:45
PROVIDERS: ADMIT Surgery; ATTEND Surgery
PROC: HZ2ZZZZ Detoxification Services for Substance Abuse Treatment (ICD-10-PCS; principal; 2019-07-06)
DX: F11.23 Opioid dependence with withdrawal (principal); F11.220 Opioid dependence with intoxication, uncomplicated; F10.230 Alcohol dependence with withdrawal, uncomplicated; F10.220 Alcohol dependence with intoxication, uncomplicated; F12.20 Cannabis dependence, uncomplicated; F17.213 Nicotine dependence, cigarettes, with withdrawal; F19.24 Other psychoactive substance dependence with psychoactive substance-induced mood disorder; F31.9 Bipolar disorder, unspecified; K21.9 Gastro-esophageal reflux disease without esophagitis; R63.4 Abnormal weight loss; D64.9 Anemia, unspecified; J45.22 Mild intermittent asthma with status asthmaticus; B18.2 Chronic viral hepatitis C; G47.00 Insomnia, unspecified; Z91.14 Patient's other noncompliance with medication regimen; Z86.69 Personal history of other diseases of the nervous system and sense organs; Z88.8 Allergy status to other drugs, medicaments and biological substances
CPT/HCPCS: 36415; 80178; 81025

== ENCOUNTER 2019-09-22 12:33 | Emergency (ER) | payer OTHER ==
[2019-09-22 12:40] VITALS: BMI 28.3
--- NOTE | 2019-09-22 13:45 | PDOC ---
Attending Attestation - Resident Resident Name: Kamala Gibbons - ED Attending Attestation I have performed the following: I have examined & evaluated the patient, The case was reviewed & discussed with the resident, I agree w/resident's findings & plan, Exceptions are as noted - HPI HPI: 09/22/19 13:44 Ms Mao is a 49 yo F who presents to the ER with a complaint of vaginal discharge. Pt has a h/o Hep C, anemia, polysubstance abuse, pancreatitis, GERD. Pt has noted vaginal discharge and irritation x 1 week Diffuse abdominal pain Subjective fevers or chills (+) sexually active with Last intercourse 1 month ago PMHx: as noted above ROS: as noted SHx: Denies Etoh, IVDA, tobacco use Allergies: Reglan, Compazine, Haldol 09/22/19 14:08 - Physicial Exam PE: 09/22/19 14:03 GENERAL: The patient is in no acute distress. ENT: Ears normal, nares patent, oropharynx clear without exudates. Moist mucous membranes. NECK: Normal range of motion, supple LUNGS: Breath sounds equal, clear to auscultation bilaterally. No wheezes, and no crackles. HEART:Regular rate and rhythm, normal S1 and S2 without murmur, rub or gallop. ABDOMEN: Soft, minimally tender to palpation PELVIC: per Dr. Gibbons EXTREMITIES: Normal range of motion, no edema. NEUROLOGICAL: Cranial nerves II through XII grossly intact. Normal speech. No focal neurological deficits. SKIN: Warm, Dry, normal turgor, no rashes or lesions noted. 09/22/19 14:16 - Medical Decision Making 09/22/19 14:04 49-year-old female presenting to the emergency department with a complaint of vaginal discharge, pelvic irritation No fevers or chills Differential diagnosis includes but is not limited to: GC/chlamydia, bacterial vaginosis, trichomonas, yeast infection We will do: GC chlamydia swab Low threshold to treat and advance of those results We will also treat for BV and trichomonas Patient will need to follow-up with [facility]ISTERED [facility] 09/22/19 15:21 US no acute pathology noted, right ovary not visualized Will give Ceftriaxone 250mg IM, Azithromycin 1gm, Flagyl 500mg Will d/c home Will ask pt to follow up with photo producer within 1 week Discharge - Discharge Information Problems reviewed: Yes Clinical Impression/Diagnosis: Vaginal discharge Condition: Stable Disposition: HOME - Admission No - Additional Discharge Information Prescriptions: metroNIDAZOLE [Flagyl -] 500 mg PO BID #14 tablet - Follow up/Referral - Patient Discharge Instructions Patient Printed Discharge Instructions: DI for Vaginal Discharge Additional Instructions: Ms. Mao Thank you for coming in to the ER We will call you with your results Please take medications as prescribed Please follow up with a benefits representative Please be sure to ask your partner to get himself evaluated as well Monitor for fevers and chills Return to the ER for any other concerns or complaints - Post Discharge Activity
--- NOTE | 2019-09-22 14:18 | PDOC ---
History of Present Illness - General Chief Complaint: Vaginal Sxs Stated Complaint: FALL Time Seen by Provider: 09/22/19 13:15 - History of Present Illness Initial Comments: 09/22/19 14:17 Ms Mao is a 49y/o F with a pmhx of Hepatitis C (treated) , anemia, polysubstance abuse, GERD, bipolar disorder, and schizoaffective disorder who presents to the ED with 1 week of green/ yellow vaginal odor accompanied by a "fishy" smell. Per the patient, she noticed the discharge and odor about 1 week ago and it has gotten progressively worse since then, there is also associated itching. She states she has never had sx like this before and she did not note anything that helped or alleviated her sx. She is in a monogamous relationship with her , with whom she is sexually active. The last time they had intercourse was 1 month ago and they never use any contraception. The pt states she is in menopause and her LMP was 3-4 yr ago. On ROS she endorses diffuse abdominal pain, feeling feverish, nausea, vomiting,and diarrhea. She denies SOB , CP, heart palpitations, any new rashes, hot/ cold intolerance, constipation, dysuria, hematura, or generalized weakness. 09/22/19 14:19 Past History - Travel Traveled outside of the country in the last 30 days: No Close contact w/someone who was outside of country & ill: No - Past Medical History Allergies/Adverse Reactions: Allergies Allergy/AdvReac Type Severity Reaction Status Date / Time metoclopramide HCl Allergy Severe dystonic Verified 07/06/19 11:16 [From Reglan] reaction prochlorperazine maleate Allergy Severe DYSTONIA Verified 07/06/19 11:16 [From Compazine] haloperidol [From Haldol] Allergy Verified 07/06/19 11:16 mirtazapine [From Remeron] AdvReac Severe Difficulty Verified 07/06/19 11:16 Breathing Home Medications: Ambulatory Orders traZODone HCL [Trazodone HCl] 200 mg PO HS 04/03/19 Albuterol Sulfate Inhaler - [Ventolin HFA Inhaler -] 1 - 2 inh PO QID #1 inhaler 04/12/19 Diphenhydramine [Benadryl Capsule -] 50 mg PO BID PRN 07/06/19 Gabapentin [Neurontin] 600 mg PO BID 07/06/19 Ibuprofen 1 tab PO BID PRN #10 tablet MDD 2 07/17/19 Multivitamin [One-Daily Multi-Vitamin] 1 tab PO DAILY 07/17/19 Quetiapine Fumarate [Seroquel -] 150 mg PO AM 07/17/19 Quetiapine Fumarate [Seroquel] 1 tab PO HS 07/17/19 Albuterol 0.083% Nebulizer Rosa [Ventolin 0.083% Nebulizer Soln -] 1 neb NEB Q6H #1 box 07/23/19 Clotrimazole [Lotrimin AF] 1 applic TP BID #1 cream..g. 07/23/19 Ranitidine [Zantac -] 150 mg PO DAILY PRN #30 tablet MDD 1 07/25/19 [place] Carbonate [Eskalith -] 600 mg PO BID 08/10/19 Sofosbuvir/Velpatasvir [Epclusa 400 mg-100 mg Tablet] 1 each PO DAILY 08/10/19 Docusate Sodium [Colace -] 100 mg PO TID #90 capsule 08/20/19 Cyclobenzaprine HCl [Flexeril -] 10 mg PO HS #7 tablet 08/28/19 Buprenorphine/Naloxone [Suboxone 8Mg/2Mg Sl Film -] 2 each SL DAILY #60 packet MDD 2 09/07/19 metroNIDAZOLE [Flagyl -] 500 mg PO BID #14 tablet 09/22/19 Anemia: Yes (as a teen, had iron and transfusions) Asthma: Yes (albuterol pump used yesterday) Cancer: No Cardiac Disorders: No CVA: No COPD: No CHF: No Dementia: No Diabetes: No GI Disorders: No Disorders: No HTN: No Hypercholesterolemia: No Kidney Stones: No Liver Disease: Yes (hepatitis C, being treated with epclusa) Psychiatric Problems: Yes (Bipolar, PTSD, Depression) Seizures: Yes (reports dystonia last week during admission) Thyroid Disease: No - Surgical History Abdominal Surgery: No Appendectomy: No Cardiac Surgery: No Cholecystectomy: No Lung Surgery: No Neurologic Surgery: No Orthopedic Surgery: No - Reproductive History (#): 13 Para: 11 PID: No - Immunization History TDAP Vaccination: Yes Immunization Up to Date: No - Psycho Social/Smoking Cessation Hx Smoking History: Current every day smoker Have you smoked in the past 12 months: No Number of Cigarettes Smoked Daily: 4 Cigars Per Day: 0 Information on smoking cessation initiated: Yes 'Breaking Loose' booklet given: 06/26/19 Hx Alcohol Use: No Drug/Substance Use Hx: No Substance Use Type: Alcohol, Heroin, Marijuana Hx Substance Use Treatment: Yes (detox, rehab, methadone in past, suboxone in past) Review of Systems - Review of Systems Able to Perform ROS?: Yes Is the patient limited Malay proficient: No Constitutional: Yes: Fever. No: Chills, Diaphoresis HEENTM: No: Recent change in vision, Ear Pain, Throat Pain Respiratory: No: Cough, Shortness of Breath Cardiac (ROS): No: Chest Pain, Lightheadedness, Palpitations, Syncope ABD/GI: Yes: Diarrhea, Nausea, Vomiting. No: Constipated, Rectal Bleeding, Tarry Stools : Yes: Discharge, Other (puritis). No: Burning, Dysuria, Hematuria Integumentary: No: Erythema, Flushing, Pruritus, Rash Neurological: No: Headache, Numbness, Paresthesia Endocrine: No: Excessive Sweating, Flushing, Intolerance to Cold, Intolerance to Heat All Other Systems: Reviewed and Negative *Physical Exam - Vital Signs Last Vital Signs Temp Pulse Resp BP Pulse Ox 98.1 F 84 20 117/76 97 09/22/19 12:35 09/22/19 12:35 09/22/19 12:35 09/22/19 12:35 09/22/19 12:35 - Physical Exam General Appearance: Yes: Nourished, Appropriately Dressed. No: Apparent Distress HEENT: positive: EOMI, PARTH, Normal ENT Inspection, Normal Voice, Pharynx Normal Neck: positive: Trachea midline, Supple. negative: Tender Respiratory/Chest: positive: Lungs Clear, Normal Breath Sounds. negative: Respiratory Distress, Accessory Muscle Use, Crackles, Rales, Wheezing Cardiovascular: positive: Regular Rhythm, Regular Rate, S1, S2. negative: Edema , JVD, Murmur Female Pelvic Exam: positive: cervical os closed, discharge (thick, green/ yellow purulent appearing discharge), adnexal tenderness (Right adnexal tenderness), other (erythema of cervix). negative: CMT Musculoskeletal: positive: Normal Inspection. negative: CVA Tenderness Extremity: positive: Normal Capillary Refill, Normal Inspection. negative: Pedal Edema, Calf Tenderness Integumentary: positive: Normal Color, Dry, Warm Neurologic: positive: tugboat pilot II-XII NML intact, Fully Oriented, Alert, Normal Mood/ Affect, Normal Response, Motor Strength / ED Treatment Course - RADIOLOGY Radiology Studies Ordered: Category Date Time Status TRANSVAGINAL ULTRASOUND US [US] Stat Ultrasound 09/22/19 14:14 Ordered Medical Decision Making - Medical Decision Making 09/22/19 14:30 Ms Mao is a 49y/o F with a pmhx of Hepatitis C (treated) , anemia, polysubstance abuse, GERD, bipolar disorder, and schizoaffective disorder who presents to the ED with 1 week of green/ yellow vaginal odor accompanied by a "fishy" smell. Given the pt Hx and physical exam findings the most likely cause of the pt sx is infectious. More likely gonorrhea/ chlamydia given the purulent appearance of the discharge. Will order GC/tichomonas swabs in addition to UA/ Ucx and a transvaginal u/s to r/o tuboovarian abscess given the pt has purulent appearing vaginal discharge, R adnexal tenderness, and diffuse abdominal tenderness. - UA - UCx - GC/trichomonas cx - transvaginal u/s 09/22/19 17:16 - Pt received transvaginal u/s which did not reveal any acute pathology. She was given ceftiaxone and azithromycin, UA, Ucx and cervical cx pending. Pt is stable and safe to be discharged home with flagyl 500mg PO BID for 1 week. Pt was also referred to OBGYN for f/u within the next week. Discharge - Discharge Information Problems reviewed: Yes Clinical Impression/Diagnosis: Vaginal discharge Condition: Stable Disposition: HOME - Additional Discharge Information Prescriptions: metroNIDAZOLE [Flagyl -] 500 mg PO BID #14 tablet - Follow up/Referral Referrals: Johanna Lynn MD [Staff Physician] - 1 week - Patient Discharge Instructions Patient Printed Discharge Instructions: DI for Vaginal Discharge Additional Instructions: Ms. Mao, You were in the Emergency Department due to 1 week of vaginal discharge with itching and foul odor. We examined you, did an ultrasound imaging study and took cultures to identify what type of infection you had. The culture results are not available yet, however we will call you if they abnormal. We are sending you home with 1 week of antibiotics to treat your infection. You will also need to follow up with an OBGYN within 1 week to make sure the infection is improving. For your convenience, we are referring you to Dr. Lynn ([phone]). Please return to the Emergency Department immediately if you have worsening symptoms, increased pain or itching, pain or bleeding with urination, painful intercourse, abdominal pain, or if you feel feverish. Thank you for coming in to the ER We will call you with your results - Post Discharge Activity
[2019-09-22] MEDS ORDERED: AZITHROMYCIN 500 MG TABLET PO ONE (15:18)
[2019-09-22] MEDS ORDERED: metroNIDAZOLE 500 MG TABLET PO ONE (15:21)
[2019-09-22] MEDS ORDERED: AZITHROMYCIN 250 MG TABLET ONE (16:10)
[2019-09-22] MEDS ORDERED: metroNIDAZOLE 250 MG TABLET ONE (16:10)
[2019-09-22] MEDS ORDERED: cefTRIAXone SODIUM 1 GM VIAL ONE (16:11)
[2019-09-22 16:30] LABS: EPI CELLS 9.1 /HPF (0-5/HPF); HYALINE CASTS 3 /lpf (0-8); URINE APPEARANCE CLEAR; URINE BACTERIA 15.1 /hpf (NEGATIVE); URINE BILIRUBIN NEGATIVE (NEGATIVE); URINE COLOR YELLOW; URINE GLUCOSE (UA) NEGATIVE (NEGATIVE); URINE KETONE NEGATIVE (NEGATIVE); URINE LEUK ESTERASE 2+ (NEGATIVE); URINE NITRITE NEGATIVE (NEGATIVE); URINE PROTEIN NEGATIVE (NEGATIVE); URINE RBC 1 /hpf (0-4); URINE UROBILINOGEN 0.2 mg/dL (0.2-1.0); URINE WBC 3 /hpf (0-5)
[2019-09-22 16:55] VITALS: BP 136/92; PULSE 94; TEMP 97.9
== END 2019-09-22 16:53 | disposition home or self-care (01) ==
LOC: JER 12:33
DX: N89.8 Other specified noninflammatory disorders of vagina (principal); K21.9 Gastro-esophageal reflux disease without esophagitis; J45.909 Unspecified asthma, uncomplicated; G40.909 Epilepsy, unspecified, not intractable, without status epilepticus; F25.9 Schizoaffective disorder, unspecified; F31.9 Bipolar disorder, unspecified; F43.10 Post-traumatic stress disorder, unspecified; Z86.2 Personal history of diseases of the blood and blood-forming organs and certain disorders involving the immune mechanism; Z86.19 Personal history of other infectious and parasitic diseases; Z88.8 Allergy status to other drugs, medicaments and biological substances
CPT/HCPCS: 36415; 76830-TC; 81003; 84703; 87086; 87110; 87186; 87491; 87591; 87661; 99282-25

== ENCOUNTER 2019-09-24 09:12 | Inpatient (IN) | payer OTHER ==
[2019-09-24 09:38] VITALS: BMI 28.3
--- NOTE | 2019-09-24 10:20 | HP ---
CIWA Score Nausea/Vomitin Muscle Tremors: 4-Moderate,w/Arms Extend Anxiety: 3 Agitation: 3 Paroxysmal Sweats: 1-Minimal Palms Moist Orientation: 3-Disoriented Date>2 days Tacttile Disturbances: 0-None Auditory Disturbances: 0-None Visual Disturbances: 1-Very Mild Sensitivity Headache: 1-Very Mild CIWA-Ar Total Score: 19 - Admission Criteria OASAS Guidelines: Admission for Medically Managed Detox: Requires at least one of the followin. CIWA greater than 12 2. Seizures within the past 24 hours 3. Delirium tremens within the past 24 hours 4. Hallucinations within the past 24 hours 5. Acute intervention needed for co occurring medical disorder 6. Acute intervention needed for co occurring psychiatric disorder 7. Severe withdrawal that cannot be handled at a lower level of care (continued vomiting, continued diarrhea, abnormal vital signs) requiring intravenous medication and/or fluids 8. Admitting History and Physical - Admission Chief Complaint: " I want to try to go through detox and rehab one more time." History of Present Illness: 49 year old female with alcohol dependence with withdrawals. She did do detox and rehab over 2 weeks ago but relapsed right thereafter. She was also seen in [facility] and given injection and oral antibiotics for Gonorrhea. She used to use heroin and last stopped in 07/2019 She is drinking 1 pint of vodka daily, last drank this morning. She had a blackout 2 months ago where she fell and hit her head requiring stitches on her left parietal area. She denies seizures from withdrawals. PMH: Anemia, Asthma, HCV treated and undetectable, Gastritis, H/O Pancreatitis Psych: Bipolar, Depression, Schizophrenia Patient has poor impulse control and has relapses multiple times. Patient is domiciled but has poor structure and control and support systems. History Source: Patient Limitations to Obtaining History: No Limitations - Past Medical History Gastrointestinal: Yes: Gastritis, Pancreatitis (? chronic pancreatitis) Hepatobiliary: Yes: Hepatitis C (Untreated) ...LMP: 10/04/18 Infectious Disease: Yes: STD's (just treated in ER for gonorrhea with injection and pills) Psych: Yes: Addictions (Alcohol, Marijuana), Bipolar - Past Surgical History Past Surgical History: Yes: - Smoking History Smoking history: Current every day smoker Have you smoked in the past 12 months: No Aproximately how many cigarettes per day: 4 - Alcohol/Substance Use Hx Alcohol Use: No Number of Drinks Daily: 4 (4 pints a day) History of Substance Use: reports: Heroin - Social History Usual Living Arrangement: Yes: Alone Do you think of yourself as: Straight/Heterosexual ADL: Independent Occupation: Unemployed History of Recent Travel: No Admission ROS BHS - HPI Allergies/Adverse Reactions: Allergies Allergy/AdvReac Type Severity Reaction Status Date / Time metoclopramide HCl Allergy Severe dystonic Verified 09/24/19 09:26 [From Reglan] reaction prochlorperazine maleate Allergy Severe DYSTONIA Verified 09/24/19 09:26 [From Compazine] haloperidol [From Haldol] Allergy Verified 09/24/19 09:26 mirtazapine [From Remeron] AdvReac Severe Difficulty Verified 09/24/19 09:26 Breathing - Ebola screening Have you traveled outside of the country in the last 21 days: No Have you had contact with anyone from an Ebola affected area: No Have you been sick,other than usual withdrawal symptoms: No Do you have a fever: No Patient History - Patient Medical History Hx Anemia: Yes (as a teen, had iron and transfusions) Hx Asthma: Yes (albuterol pump used yesterday) Hx Chronic Obstructive Pulmonary Disease (COPD): No Hx Cancer: No Hx Cardiac Disorders: No Hx Congestive Heart Failure: No Hx Hypertension: No Hx Hypercholesterolemia: No Hx Pacemaker: No HX Cerebrovascular Accident: No Hx Seizures: Yes (reports dystonia last week during admission) Hx Dementia: No Hx Diabetes: No Hx Gastrointestinal Disorders: No Hx Liver Disease: Yes (hepatitis C, being treated with epclusa) Hx Genitourinary Disorders: No Hx Sexually Transmitted Disorders: No Hx Renal Disease (ESRD): No Hx Thyroid Disease: No Hx Human Immunodeficiency Virus (HIV): No (last 01/16 negative) Hx Hepatitis C: Yes (treated) Hx Depression: Yes (hospitalized ) Hx Suicide Attempt: No (denies) Hx Bipolar Disorder: Yes (no med,non compliance) Hx Schizophrenia: Yes - Patient Surgical History Past Surgical History: Yes Hx Neurologic Surgery: No Hx Cataract Extraction: No Hx Cardiac Surgery: No Hx Lung Surgery: No Hx Breast Surgery: No Hx Breast Biopsy: No Hx Abdominal Surgery: No Hx Appendectomy: No Hx Cholecystectomy: No Hx Genitourinary Surgery: No Hx Section: Yes (x 2) Hx Orthopedic Surgery: No Hx Hysterectomy: No Other Surgical History: age 9 - abscess/tumor, benign per pt Anesthesia Reaction: No - PPD History Previous Implant?: Yes Documented Results: Negative w/proof Implanted On Prior [facility] Admission?: Yes Date: 02/17/19 Results: 0mm PPD to be Administered?: No - Reproductive History Last Menstrual Period: 10/04/18 - Smoking Cessation Smoking history: Current every day smoker Have you smoked in the past 12 months: No Aproximately how many cigarettes per day: 4 Cigars Per Day: 0 Hx Chewing Tobacco Use: No Initiated information on smoking cessation: Yes 'Breaking Loose' booklet given: 09/24/19 - Substance & Tx. History Hx Alcohol Use: Yes (1 pint of vodka daily) Hx Substance Use Treatment: Yes (multiple admissions for detox) - Substances abused Alcohol Substance route: Oral Frequency: Daily Amount used: 1 pints of vodka Age of first use: 17 Date of last use: 09/24/19 Heroin Substance route: Inhalation Frequency: Daily Amount used: 10 bags Age of first use: 17 Date of last use: 07/06/19 Admission Physical Exam BHS - Vital Signs Vital Signs: Vital Signs - 24 hr 09/24/19 09:25 Temperature 97.6 F Pulse Rate 98 H Respiratory 18 Rate Blood Pressure 123/89 - Physical General Appearance: Yes: Moderate Distress, Alcohol on Breath, Tremorous, Irritable, Sweating HEENTM: Yes: EOMI, Hearing grossly Normal, Normocephalic, Normal Voice, PARTH, Pharynx Normal, Tm's normal Respiratory: Yes: Chest Non-Tender, Lungs Clear, Normal Breath Sounds Neck: Yes: No masses,lesions,Nodules, Supple, Trachea in good position Breast: Yes: Breast Exam Deferred Cardiology: Yes: Regular Rhythm, S1, S2, Tachycardia Abdominal: Yes: Soft, Increased Bowel Sounds Genitourinary: Yes: Within Normal Limits Back: Yes: Normal Inspection Musculoskeletal: Yes: full range of Motion, Gait Steady, Pelvis Stable Extremities: Yes: Normal Capillary Refill, Normal Inspection, Normal Range of Motion, Non-Tender Neurological: Yes: industrial 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 II-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 NML intact, Fully Oriented, Alert, Motor Strength 5/5, Normal Mood/Affect, Normal Response Integumentary: Yes: Normal Color, Warm Lymphatic: Yes: Within Normal Limits - Diagnostic (1) Alcohol dependence with uncomplicated intoxication Current Visit: Yes Status: Acute (2) Nicotine dependence Current Visit: Yes Status: Acute Qualifiers: Nicotine product type: cigarettes Substance use status: in withdrawal Qualified Code(s): F17.213 - Nicotine dependence, cigarettes, with withdrawal (3) Bipolar disorder Current Visit: Yes Status: Chronic Qualifiers: Active/Remission status: remission status unspecified Qualified Code(s): F31.9 - Bipolar disorder, unspecified Comment: sees psych at [facility], on meds (4) GERD (gastroesophageal reflux disease) Current Visit: Yes Status: Chronic Qualifiers: Esophagitis presence: without esophagitis Qualified Code(s): K21.9 - Gastro -esophageal reflux disease without esophagitis Comment: dietary precautions reviewed in detail, advise to avoid lying flat after eating/drinking, she is willing to try nicotine gum to quit smoking, monitor. d/c ppi and offer prn zantac. we discussed to avoid dosing with epclusa. (5) Hepatitis C Current Visit: Yes Status: Chronic Qualifiers: Viral hepatitis chronicity: chronic Hepatic coma status: without hepatic coma Qualified Code(s): B18.2 - Chronic viral hepatitis C Comment: although she has missed doses during her tx with epclusa, she has an undetectable hcv vl at this time. will d/w [employer] [place] strategic consultant and cont monitoring. (6) Insomnia Current Visit: Yes Status: Chronic Cleared for Admission S - Detox or Rehab [facility] Level of Care: Medically Managed Claeared for Rehab Admission: No Screened but not Admitted - Documentation of Visit Screened but not Admitted: No Breathalyzer - Breathalyzer Breathalyzer: 0.233 Urine Drug Screen - Test Device Lot number: [id number] Expiration date: 03/30/21 - Control Is test valid?: Yes - Results Drug screen NEGATIVE: No Urine drug screen results: THC-Marijuana, MOP-Opiates, OXY-Oxycodone, MTD- Methadone, BZO-Benzodiazepines Inpatient Rehab Admission - Rehab Decision to Admit Inpatient rehab admission?: No
[2019-09-24] MEDS ORDERED: METHOCARBAMOL 500 MG TABLET PO PRN (10:27)
[2019-09-24] MEDS ORDERED: hydrOXYzine PAMOATE 25 MG CAPSULE (FP) PO PRN (10:27)
[2019-09-24] MEDS ORDERED: MAG HYDROX/AL HYDROX/SIMETH 30 ML UNIT-DOSE CUP PO PRN (10:27)
[2019-09-24] MEDS ORDERED: BISMUTH SUBSALICYLATE 262 MG/15 ML BTL PO PRN (10:27)
[2019-09-24] MEDS ORDERED: MELATONIN 5 MG TABLETS PO PRN (10:27)
[2019-09-24] MEDS ORDERED: MAGNESIUM CITRATE 300 ML BOTTLE PO PRN (10:27)
[2019-09-24] MEDS ORDERED: MAGNESIUM HYDROX 2400MG/30ML ORAL SUSPENSION 30 ML CUP PO PRN (10:27)
[2019-09-24] MEDS ORDERED: IBUPROFEN 400 MG TABLET (FP) PO PRN (10:27)
[2019-09-24] MEDS ORDERED: LORazepam 1 MG TABLET PO PRN (10:27)
[2019-09-24] MEDS ORDERED: ACETAMINOPHEN 325 MG TABLET (FP) PO PRN ×2 (10:27)
[2019-09-24] MEDS ORDERED: MENTHOL/PHENOL 1 EACH UD MM PRN (10:27)
[2019-09-24] MEDS ORDERED: ALBUTEROL SO4 8 GM HFA INHALER IH SCH (10:30)
[2019-09-24] MEDS ORDERED: LORazepam 2 MG TABLET PO SCH (11:00)
[2019-09-24] MEDS ORDERED: ALBUTEROL SO4 8 GM HFA INHALER IH PRN (11:33)
[2019-09-24 11:46] LABS: HEMATOCRIT 38.9 % (32.4-45.2); HEMOGLOBIN 13.2 GM/dL (10.7-15.3); MCH 32.5 pg (25.7-33.7); MCHC 33.9 g/dl (32.0-36.0); MEAN PLT VOLUME 9.6 fl (7.5-11.1); PLATELET COUNT 224 K/MM3 (134-434); RBC 4.05 M/mm3 (3.60-5.2); RDW 14.9 % (11.6-15.6); WHITE BLOOD COUNT 8.1 K/mm3 (4.0-10.0)
[2019-09-24 12:01] LABS: BILIRUBIN,TOTAL 0.2 mg/dL (0.2-1); BLOOD UREA NITROGEN 8.9 mg/dL (7-18); CALCIUM 9.2 mg/dL (8.5-10.1); CREATININE 0.9 mg/dL (0.55-1.3); TOT PROT 7.8 g/dl (6.4-8.2)
[2019-09-24 13:12] VITALS: BP 124/88; PULSE 100; TEMP 98
[2019-09-24] MEDS ORDERED: DOCUSATE SODIUM 100 MG CAPSULE (FP) PO SCH (14:00)
--- NOTE | 2019-09-24 15:48 | PN ---
[facility] Progress Note Note: pt was approached regarding her reason for leaving. Pt was told that her detox has just begun and should stay to complete..pt was advised about the risks of relapse, seizure, DT, OD and or loss, however pt insisted she wants to go home and signed out AMA.
--- NOTE | 2019-09-24 15:53 | DS ---
[facility] Detox Discharge Summary Admission Date: 09/24/19 - History Present History: Alcohol Dependence, Opioid Dependence - Physical Exam Results Vital Signs: Vital Signs Temperature 98.0 F 09/24/19 13:11 Pulse Rate 100 H 09/24/19 13:11 Respiratory Rate 20 09/24/19 13:11 Blood Pressure 124/88 09/24/19 13:11 O2 Sat by Pulse Oximetry (%) Pertinent Admission Physical Exam Findings: pt arrived in withdrawals Vital Signs Temperature 98.0 F 09/24/19 13:11 Pulse Rate 100 H 09/24/19 13:11 Respiratory Rate 20 09/24/19 13:11 Blood Pressure 124/88 09/24/19 13:11 O2 Sat by Pulse Oximetry (%) [id number] ambulating signed out AMA regardless of recent detox admission. Pt is coherent and able to make sound decisions. Pt was stating I need to go home, discussed risk of relapse, however, signed out AMA. - Treatment Patient has Accepted a Rehab Referral to: pt declined rehab/referral - Medication Discharge Medications: Ambulatory Orders traZODone HCL [Trazodone HCl] 200 mg PO HS 04/03/19 Albuterol Sulfate Inhaler - [Ventolin HFA Inhaler -] 1 - 2 inh PO QID #1 inhaler 04/12/19 Diphenhydramine [Benadryl Capsule -] 50 mg PO BID PRN 07/06/19 Gabapentin [Neurontin] 600 mg PO BID 07/06/19 Ibuprofen 1 tab PO BID PRN #10 tablet MDD 2 07/17/19 Multivitamin [One-Daily Multi-Vitamin] 1 tab PO DAILY 07/17/19 Quetiapine Fumarate [Seroquel -] 300 mg PO HS 07/17/19 Ranitidine [Zantac -] 150 mg PO DAILY PRN #30 tablet MDD 1 07/25/19 Arrey Carbonate [Eskalith -] 600 mg PO BID 08/10/19 Sofosbuvir/Velpatasvir [Epclusa 400 mg-100 mg Tablet] 1 each PO DAILY 08/10/19 Docusate Sodium [Colace -] 100 mg PO TID #90 capsule 08/20/19 Buprenorphine/Naloxone [Suboxone 8Mg/2Mg Sl Film -] 2 each SL DAILY #60 packet MDD 2 09/07/19 - Diagnosis (1) Alcohol dependence with uncomplicated intoxication Current Visit: Yes Status: Chronic (2) Nicotine dependence Current Visit: Yes Status: Chronic Qualifiers: Nicotine product type: cigarettes Substance use status: uncomplicated Qualified Code(s): F17.210 - Nicotine dependence, cigarettes, uncomplicated (3) Bipolar disorder Current Visit: Yes Status: Chronic Qualifiers: Active/Remission status: remission status unspecified Qualified Code(s): F31.9 - Bipolar disorder, unspecified (4) GERD (gastroesophageal reflux disease) Current Visit: Yes Status: Chronic Qualifiers: Esophagitis presence: without esophagitis Qualified Code(s): K21.9 - Gastro -esophageal reflux disease without esophagitis (5) Hepatitis C Current Visit: Yes Status: Chronic Qualifiers: Viral hepatitis chronicity: chronic Hepatic coma status: without hepatic coma Qualified Code(s): B18.2 - Chronic viral hepatitis C (6) Insomnia Current Visit: Yes Status: Chronic (7) Bacteriuria Current Visit: No Status: Acute (8) Opioid abuse with intoxication, uncomplicated Current Visit: No Status: Acute (9) Substance-induced anxiety disorder Current Visit: No Status: Acute (10) Substance-induced sleep disorder Current Visit: No Status: Acute (11) Weight loss Current Visit: No Status: Acute (12) Asthma Current Visit: No Status: Chronic Qualifiers: Asthma severity: mild Asthma persistence: intermittent Asthma complication type: with status asthmaticus Qualified Code(s): J45.22 - Mild intermittent asthma with status asthmaticus (13) Cannabis dependence, uncomplicated Current Visit: No Status: Chronic (14) Elevated BP without diagnosis of hypertension Current Visit: No Status: Chronic (15) Mental health disorder Current Visit: No Status: Chronic (16) Mood disorder Current Visit: No Status: Chronic (17) Opioid dependence Current Visit: Yes Status: Chronic Qualifiers: Substance use status: uncomplicated Qualified Code(s): F11.20 - Opioid dependence, uncomplicated (18) PTSD (post-traumatic stress disorder) Current Visit: No Status: Chronic (19) Schizoaffective disorder Current Visit: No Status: Chronic Qualifiers: Schizoaffective disorder type: bipolar Qualified Code(s): F25.0 - Schizoaffective disorder, bipolar type (20) Substance use disorder Current Visit: No Status: Chronic (21) Bipolar disorder Current Visit: No Status: Suspected (22) Substance induced mood disorder Current Visit: No Status: Suspected (23) Bipolar disorder Current Visit: No Status: Ruled-out - AMA Did Patient Leave Against Medical Advice: Yes
[2019-09-24] MEDS ORDERED: THIAMINE HCL 100 MG TABLET (FP) PO SCH (22:00)
[2019-09-24] MEDS ORDERED: metroNIDAZOLE 250 MG TABLET PO SCH (22:00)
[2019-09-25] MEDS ORDERED: NICOTINE 14 MG/24 HOURS TOPICAL PATCH TD SCH (10:00)
[2019-09-25] MEDS ORDERED: PRENATAL VITAMINS W/ FOLIC ACID TABLET (FP) PO SCH (10:00)
[2019-09-25] MEDS ORDERED: BUPRENORPHINE/NALOXONE 8 MG/2 MG FILM PACKET SL SCH (11:45)
[2019-09-26] MEDS ORDERED: LORazepam 1 MG TABLET PO SCH (05:00)
[2019-09-27] MEDS ORDERED: LORazepam 0.5 MG TABLET PO PRN
[2019-09-27] MEDS ORDERED: LORazepam 0.5 MG TABLET PO SCH (05:00)
[2019-09-28] MEDS ORDERED: LORazepam 0.5 MG TABLET PO ONE (05:00)
== END 2019-09-24 14:09 | disposition left against medical advice (07) | DRG 770 ==
LOC: YASAS 09:12 → Y3N 11:24
PROVIDERS: ADMIT Allergy & Immunology; ATTEND Allergy & Immunology
PROC: HZ2ZZZZ Detoxification Services for Substance Abuse Treatment (ICD-10-PCS; principal; 2019-09-24)
DX: F10.230 Alcohol dependence with withdrawal, uncomplicated (principal); F11.23 Opioid dependence with withdrawal; F12.20 Cannabis dependence, uncomplicated; F17.210 Nicotine dependence, cigarettes, uncomplicated; F25.0 Schizoaffective disorder, bipolar type; F19.280 Other psychoactive substance dependence with psychoactive substance-induced anxiety disorder; F19.282 Other psychoactive substance dependence with psychoactive substance-induced sleep disorder; F31.9 Bipolar disorder, unspecified; J45.22 Mild intermittent asthma with status asthmaticus; K21.9 Gastro-esophageal reflux disease without esophagitis; G40.909 Epilepsy, unspecified, not intractable, without status epilepticus; B18.2 Chronic viral hepatitis C; G47.00 Insomnia, unspecified; R82.71 Bacteriuria; R03.0 Elevated blood-pressure reading, without diagnosis of hypertension; R63.4 Abnormal weight loss; Z68.28 Body mass index [BMI] 28.0-28.9, adult; Z86.2 Personal history of diseases of the blood and blood-forming organs and certain disorders involving the immune mechanism; Z86.19 Personal history of other infectious and parasitic diseases; Z88.8 Allergy status to other drugs, medicaments and biological substances
CPT/HCPCS: 36415; 80053; 81025; 85027; 86593

== ENCOUNTER 2019-10-18 08:18 | Inpatient (IN) | payer OTHER ==
[2019-10-18 08:40] VITALS: BMI 28.3
--- NOTE | 2019-10-18 09:37 | HP ---
COWS - Scale Resting Pulse: 1= VT 81-100 Sweatin=Flushed/Facial Moisture Restless Observation: 1= Difficult to Sit Still Pupil Size: 1= Pupils >than Normal Bone or Joint Aches: 1= Mild Discomfort Runny Nose/ Eye Tearin= Nasal Congestion GI Upset > 30mins: 1= Stomach Cramp Tremor Observation: 1= Tremor Hematite, Not Seen Yawning Observation: 1= 1-2x During Session Anxiety or Irritability: 2=Irritable/Anxious Goose Flesh Skin: 0=Smooth Skin COWS Score: 12 CIWA Score Nausea/Vomitin Muscle Tremors: 3 Anxiety: 4-Mod. Anxious/Guarded Agitation: 4-Moderately Restless Orientation: 1-Uncertain about Date Tacttile Disturbances: 0-None Auditory Disturbances: 0-None Visual Disturbances: 0-None Headache: 2-Mild - Admission Criteria OASAS Guidelines: Admission for Medically Managed Detox: Requires at least one of the followin. CIWA greater than 12 2. Seizures within the past 24 hours 3. Delirium tremens within the past 24 hours 4. Hallucinations within the past 24 hours 5. Acute intervention needed for co occurring medical disorder 6. Acute intervention needed for co occurring psychiatric disorder 7. Severe withdrawal that cannot be handled at a lower level of care (continued vomiting, continued diarrhea, abnormal vital signs) requiring intravenous medication and/or fluids 8. Admitting History and Physical - Admission Chief Complaint: "I am here because I relapsed on heroin in addition to continuing to drinking alcohol. She had stopped suboxone." History of Present Illness: 49 year old female with alcohol dependence with withdrawals. She did enter detox in 09/24/19 and signed out AMA the following day without completing even one day of detox. She has returned to using heroin and is drinking on a constant basis. She is drinking 1 quart of vodka daily, last drank this morning. She had a blackout just 2 days ago and fell and has a right arm contusion. She also had a fall hitting her head requiring stitches on her left parietal area. She denies seizures from withdrawals. She is using heroin 10 bags of heroin daily again, she has a narcan spray at home but does not carry it. PMH: Anemia, Asthma, HCV treated and undetectable, Gastritis, H/O Pancreatitis Psych: Bipolar, Depression, Schizophrenia Patient has poor impulse control and has relapses multiple times. Patient is domiciled but has poor structure and control and support systems. History Source: Patient Limitations to Obtaining History: No Limitations - Past Medical History Pulmonary: Yes: Asthma Gastrointestinal: Yes: Gastritis, Pancreatitis (? chronic pancreatitis) Hepatobiliary: Yes: Hepatitis C (Untreated) ...LMP: 10/31/14 Heme/Onc: Yes: Anemia Infectious Disease: Yes: STD's (just treated in ER for gonorrhea with injection and pills) Psych: Yes: Addictions (Alcohol, Marijuana), Bipolar - Past Surgical History Past Surgical History: Yes: - Smoking History Smoking history: Current every day smoker Have you smoked in the past 12 months: No Aproximately how many cigarettes per day: 4 - Alcohol/Substance Use Hx Alcohol Use: Yes (1 pint of vodka daily) Number of Drinks Daily: 4 (4 pints a day) History of Substance Use: reports: Heroin - Social History ADL: Independent Occupation: Unemployed History of Recent Travel: No Admission [facility] Allergies/Adverse Reactions: Allergies Allergy/AdvReac Type Severity Reaction Status Date / Time metoclopramide HCl Allergy Severe dystonic Verified 10/18/19 08:32 [From Reglan] reaction prochlorperazine maleate Allergy Severe DYSTONIA Verified 10/18/19 08:32 [From Compazine] haloperidol [From Haldol] Allergy Verified 10/18/19 08:32 mirtazapine [From Remeron] AdvReac Severe Difficulty Verified 10/18/19 08:32 Breathing Exam Limitations: No Limitations - Ebola screening Have you traveled outside of the country in the last 21 days: No (N) Have you had contact with anyone from an Ebola affected area: No Have you been sick,other than usual withdrawal symptoms: No Do you have a fever: No - Review of Systems Constitutional: Chills, Diaphoresis EENT: reports: No Symptoms Reported Respiratory: reports: No Symptoms reported Cardiac: reports: No Symptoms Reported GI: reports: Nausea, Abdominal cramping : reports: No Symptoms Reported Musculoskeletal: reports: Joint Pain, Muscle Pain Integumentary: reports: No Symptoms Reported Neuro: reports: Headache Endocrine: reports: No Symptoms Reported Hematology: reports: Anemia Psychiatric: reports: Judgement Intact, Mood/Affect Appropiate, Orientated x3, Agitated, Anxious, Depressed Other Systems: Reviewed and Negative Patient History - Patient Medical History Hx Anemia: Yes (as a teen, had iron and transfusions) Hx Asthma: Yes Hx Chronic Obstructive Pulmonary Disease (COPD): No Hx Cancer: No Hx Cardiac Disorders: No Hx Congestive Heart Failure: No Hx Hypertension: No Hx Hypercholesterolemia: No Hx Pacemaker: No HX Cerebrovascular Accident: No Hx Seizures: No Hx Dementia: No Hx Diabetes: No Hx Gastrointestinal Disorders: Yes (GERD) Hx Liver Disease: Yes (hepatitis C, being treated with epclusa) Hx Genitourinary Disorders: No Hx Sexually Transmitted Disorders: Yes (Chlamydia) Hx Renal Disease (ESRD): No Hx Thyroid Disease: No Hx Human Immunodeficiency Virus (HIV): No (last 01/16 negative) Hx Hepatitis C: Yes (treated) Hx Depression: Yes Hx Suicide Attempt: No Hx Bipolar Disorder: Yes (no med,non compliance) Hx Schizophrenia: Yes - Patient Surgical History Past Surgical History: Yes Hx Neurologic Surgery: No Hx Cataract Extraction: No Hx Cardiac Surgery: No Hx Lung Surgery: No Hx Breast Surgery: No Hx Breast Biopsy: No Hx Abdominal Surgery: No Hx Appendectomy: No Hx Cholecystectomy: No Hx Genitourinary Surgery: No Hx Section: Yes (x 2) Hx Orthopedic Surgery: No Hx Hysterectomy: No Other Surgical History: age 9 - abscess/tumor, benign per pt Anesthesia Reaction: No - PPD History Previous Implant?: Yes Documented Results: Negative w/proof Implanted On Prior [facility] Admission?: Yes Date: 02/17/19 Results: 0mm PPD to be Administered?: No - Reproductive History Last Menstrual Period: 10/31/14 - Smoking Cessation Smoking history: Current every day smoker Have you smoked in the past 12 months: No Aproximately how many cigarettes per day: 4 Cigars Per Day: 0 Hx Chewing Tobacco Use: No Initiated information on smoking cessation: Yes 'Breaking Loose' booklet given: 10/18/19 - Substances abused Alcohol Substance route: Oral Frequency: Daily Amount used: 1 quart of vodka Age of first use: 17 Date of last use: 10/18/19 Heroin Substance route: Inhalation Frequency: Daily Amount used: 10 bags Age of first use: 17 Date of last use: 10/18/19 Admission Physical Exam BHS - Vital Signs Vital Signs: Vital Signs - 24 hr 10/18/19 08:31 Temperature 97.7 F Pulse Rate 83 Respiratory 20 Rate Blood Pressure 136/93 - Physical General Appearance: Yes: Moderate Distress, Alcohol on Breath, Tremorous, Irritable, Sweating, Anxious HEENTM: Yes: EOMI, Hearing grossly Normal, Normal ENT Inspection, Normocephalic , Normal Voice, PARTH, Pharynx Normal, Tm's normal Respiratory: Yes: Chest Non-Tender, Lungs Clear Breathalyzer - Breathalyzer Breathalyzer: 0.241 Urine Drug Screen - Test Device Lot number: [id number] Expiration date: 05/30/21 - Control Is test valid?: Yes - Results Drug screen NEGATIVE: No Urine drug screen results: BZO-Benzodiazepines
[2019-10-18] MEDS ORDERED: IBUPROFEN 400 MG TABLET (FP) PO PRN (09:46)
[2019-10-18] MEDS ORDERED: hydrOXYzine PAMOATE 25 MG CAPSULE (FP) PO PRN (09:46)
[2019-10-18] MEDS ORDERED: MENTHOL/PHENOL 1 EACH UD MM PRN (09:46)
[2019-10-18] MEDS ORDERED: chlordiazePOXIDE HCL 25 MG CAPSULE PO PRN (09:46)
[2019-10-18] MEDS ORDERED: ACETAMINOPHEN 325 MG TABLET (FP) PO PRN ×2 (09:46)
[2019-10-18] MEDS ORDERED: MAG HYDROX/AL HYDROX/SIMETH 30 ML UNIT-DOSE CUP PO PRN (09:46)
[2019-10-18] MEDS ORDERED: MAGNESIUM CITRATE 300 ML BOTTLE PO PRN (09:46)
[2019-10-18] MEDS ORDERED: MAGNESIUM HYDROX 2400MG/30ML ORAL SUSPENSION 30 ML CUP PO PRN (09:46)
[2019-10-18] MEDS ORDERED: BISMUTH SUBSALICYLATE 262 MG/15 ML BTL PO PRN (09:46)
[2019-10-18] MEDS ORDERED: ALBUTEROL SO4 8 GM HFA INHALER IH PRN (09:49)
[2019-10-18] MEDS ORDERED: cloNIDine HCL 0.1 MG TABLET PO PRN (09:52)
[2019-10-18] MEDS ORDERED: METHADONE HCL 10 MG TABLET (FOR DETOX USE ONLY) PO ONE (09:52)
[2019-10-18] MEDS: chlordiazePOXIDE HCL 25 MG CAPSULE PO SCH ×2 (10:30→16:47)
[2019-10-18] MEDS: PRENATAL VITAMINS W/ FOLIC ACID TABLET (FP) PO SCH (10:32)
[2019-10-18] MEDS: NICOTINE 14 MG/24 HOURS TOPICAL PATCH TD SCH (10:32)
[2019-10-18] MEDS: DOCUSATE SODIUM 100 MG CAPSULE (FP) PO SCH (13:47)
--- NOTE | 2019-10-18 17:55 | PN ---
[facility] Progress Note Note: S: I was called to see this 49year old female with c/o chest pain. Pt was seen in her room lying in bed alert and verbally responsive. Pt c/o chest pain radiating to left neck, left shoulder, and arm. Pt c/o difficulty breathing, weakness, nausea/vomiting x1. Denies any headache, dizziness, or palpitation at the moment. O: Vital Signs 10/18/19 10/18/19 14:17 17:16 Temperature 98.1 F 98.4 F Pulse Rate 92 H 75 Respiratory 18 16 Rate Blood Pressure 115/56 L 118/74 ASS: cardiac: RRR, s1, s2, no murmur lungs: mild wheezing b/l Appears to be in distress O2 sat 97% in room air Alert and verbally responsive EKG is normal PLAN: Send to [facility] ED for evaluation. Verbal report given to Dr. Wolff.
[2019-10-19] MEDS: DOCUSATE SODIUM 100 MG CAPSULE (FP) PO SCH ×4 (00:25→22:03)
[2019-10-19] MEDS: chlordiazePOXIDE HCL 25 MG CAPSULE PO SCH ×5 (00:25→22:02)
[2019-10-19] MEDS: THIAMINE HCL 100 MG TABLET (FP) PO SCH ×2 (00:25→22:03)
[2019-10-19] MEDS ORDERED: METHADONE HCL 10 MG TABLET (FOR DETOX USE ONLY) ONE (08:44)
[2019-10-19] MEDS ORDERED: METHADONE HCL 5 MG TABLET (FOR DETOX USE ONLY) ONE (08:44)
[2019-10-19] MEDS ORDERED: METHADONE (DETOX) 20 MG, METHADONE (DETOX) 5 MG PO ONE (10:00)
[2019-10-19] MEDS: PRENATAL VITAMINS W/ FOLIC ACID TABLET (FP) PO SCH (10:28)
[2019-10-19] MEDS: NICOTINE 14 MG/24 HOURS TOPICAL PATCH TD SCH (10:28)
--- NOTE | 2019-10-19 10:44 | EKG ---
Test Reason : Blood Pressure : / mmHG Vent. Rate : 064 BPM Atrial Rate : 064 BPM P-R Int : 148 ms QRS Dur : 090 ms QT Int : 412 ms P-R-T Axes : 002 034 040 degrees QTc Int : 425 ms NORMAL SINUS RHYTHM CANNOT RULE OUT SEPTAL INFARCT , AGE UNDETERMINED WHEN COMPARED WITH ECG OF 14-APR-2019 20:58, VENT. RATE HAS DECREASED BY 33 BPM Confirmed by KELLY ADAIR MD ([id number]) on 10/19/2019 10:44:35 AM Referred By: Confirmed By:KELLY ADAIR MD
--- NOTE | 2019-10-19 13:24 | PN ---
[facility] CIWA - CIWA Score Nausea/Vomitin-No Nausea/No Vomiting Muscle Tremors: 3 Anxiety: 2 Agitation: 3 Paroxysmal Sweats: 3 Orientation: 0-Oriented Tacttile Disturbances: 0-None Auditory Disturbances: 0-None Visual Disturbances: 0-None Headache: 0-None Present CIWA-Ar Total Score: 11 S COWS - Scale Resting Pulse: 0= [place] 80 or Below Sweatin= Chills/Flushing Restless Observation: 0= Sits Still Pupil Size: 0= Normal to Room Light Bone or Joint Aches: 1= Mild Discomfort Runny Nose/ Eye Tearin= Runny Nose/Eyes GI Upset > 30mins: 0= None Tremor Observation of Outstretched Hands: 1= Tremor Mobile, Not Seen Yawning Observation: 1= 1-2x During Session Anxiety or Irritability: 2=Irritable/Anxious Goose Flesh Skin: 0=Smooth Skin COWS Score: 8 [facility] Progress Note (SOAP) Subjective: sweats mild shakes tired interrupted sleep no chest pain Objective: 10/19/19 13:23 Vital Signs Temperature 98.2 F 10/19/19 09:52 Pulse Rate 69 10/19/19 09:52 Respiratory Rate 18 10/19/19 09:52 Blood Pressure 106/81 10/19/19 09:52 O2 Sat by Pulse Oximetry (%) Laboratory Tests 10/18/19 09:48 POC Urine HCG, Qual Negative aaox3 ambulating no acute distress Assessment: 10/19/19 13:24 withdrawals Plan: continue detox increase fluids
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
[2019-10-19] MEDS: MELATONIN 5 MG TABLETS PO PRN (22:04)
[2019-10-20] MEDS: chlordiazePOXIDE HCL 25 MG CAPSULE PO SCH ×4 (06:25→22:06)
[2019-10-20] MEDS: DOCUSATE SODIUM 100 MG CAPSULE (FP) PO SCH ×3 (06:26→22:06)
[2019-10-20] MEDS ORDERED: METHADONE HCL 10 MG TABLET (FOR DETOX USE ONLY) PO ONE (10:00)
[2019-10-20] MEDS: PRENATAL VITAMINS W/ FOLIC ACID TABLET (FP) PO SCH (10:26)
[2019-10-20] MEDS: NICOTINE 14 MG/24 HOURS TOPICAL PATCH TD SCH (10:26)
[2019-10-20] MEDS: METHOCARBAMOL 500 MG TABLET PO PRN (10:27)
--- NOTE | 2019-10-20 14:36 | PN ---
[facility] CIWA - CIWA Score Nausea/Vomitin-Mild Nausea/No Vomiting Muscle Tremors: 3 Anxiety: 2 Agitation: 2 Paroxysmal Sweats: 2 Orientation: 0-Oriented Tacttile Disturbances: 0-None Auditory Disturbances: 0-None Visual Disturbances: 0-None Headache: 0-None Present CIWA-Ar Total Score: 10 [facility] COWS - Scale Resting Pulse: 1= [place] 81-100 Sweatin= Chills/Flushing Restless Observation: 1= Difficult to Sit Still Pupil Size: 0= Normal to Room Light Bone or Joint Aches: 1= Mild Discomfort Runny Nose/ Eye Tearin= Nasal Congestion GI Upset > 30mins: 1= Stomach Cramp Tremor Observation of Outstretched Hands: 1= Tremor Force, Not Seen Yawning Observation: 0= None Anxiety or Irritability: 2=Irritable/Anxious Goose Flesh Skin: 0=Smooth Skin COWS Score: 9 B[facility] Progress Note (SOAP) Subjective: 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
[2019-10-20] MEDS: MELATONIN 5 MG TABLETS PO PRN (22:06)
[2019-10-20] MEDS: THIAMINE HCL 100 MG TABLET (FP) PO SCH (22:06)
[2019-10-21] MEDS ORDERED: chlordiazePOXIDE HCL 10 MG CAPSULE PO PRN
[2019-10-21] MEDS: DOCUSATE SODIUM 100 MG CAPSULE (FP) PO SCH ×3 (05:53→22:32)
[2019-10-21] MEDS: chlordiazePOXIDE HCL 10 MG CAPSULE PO SCH ×4 (05:53→22:31)
[2019-10-21] MEDS ORDERED: METHADONE HCL 10 MG TABLET (FOR DETOX USE ONLY) ONE (09:54)
[2019-10-21] MEDS ORDERED: METHADONE HCL 5 MG TABLET (FOR DETOX USE ONLY) ONE (09:54)
[2019-10-21] MEDS ORDERED: METHADONE (DETOX) 10 MG, METHADONE (DETOX) 5 MG PO ONE (10:00)
[2019-10-21] MEDS: NICOTINE 14 MG/24 HOURS TOPICAL PATCH TD SCH (10:06)
[2019-10-21] MEDS: PRENATAL VITAMINS W/ FOLIC ACID TABLET (FP) PO SCH (10:06)
[2019-10-21] MEDS: METHOCARBAMOL 500 MG TABLET PO PRN ×2 (10:08→17:32)
--- NOTE | 2019-10-21 13:50 | PN ---
[facility] CIWA - CIWA Score Nausea/Vomitin-No Nausea/No Vomiting Muscle Tremors: None Anxiety: 3 Agitation: 0-Normal Activity Paroxysmal Sweats: 2 Orientation: 0-Oriented Tacttile Disturbances: 0-None Auditory Disturbances: 0-None Visual Disturbances: 0-None Headache: 1-Very Mild CIWA-Ar Total Score: 6 BHS COWS - Scale Resting Pulse: 0= [place] 80 or Below Sweatin= Chills/Flushing Restless Observation: 1= Difficult to Sit Still Pupil Size: 0= Normal to Room Light Bone or Joint Aches: 1= Mild Discomfort Runny Nose/ Eye Tearin= None GI Upset > 30mins: 0= None Tremor Observation of Outstretched Hands: 0= None Yawning Observation: 1= 1-2x During Session Anxiety or Irritability: 2=Irritable/Anxious Goose Flesh Skin: 0=Smooth Skin COWS Score: 6 S Progress Note (SOAP) Subjective: c/o sweats, anxiety, muscle aches, and headache. Objective: 10/21/19 13:50 Vital Signs 10/21/19 10/21/19 06:43 10:17 Temperature 98.1 F 97.5 F L Pulse Rate 60 73 Respiratory 20 16 Rate Blood Pressure 99/66 103/71 Assessment: 10/21/19 13:50 AOX3, in no acute respiratory distress. Full ROM, ambulating in the unit. Withdrawal symptoms Plan: continue detox.
[2019-10-21] MEDS ORDERED: diphenhydrAMINE HCL 25 MG CAPSULE (FP) PO PRN (19:09)
[2019-10-21] MEDS ORDERED: traZODone HCL 50 MG TABLET (FP) PO SCH (22:00)
[2019-10-21] MEDS ORDERED: QUEtiapine FUMARATE 300 MG TABLET PO SCH (22:00)
[2019-10-21] MEDS: THIAMINE HCL 100 MG TABLET (FP) PO SCH (22:31)
[2019-10-22] MEDS ORDERED: chlordiazePOXIDE HCL 10 MG CAPSULE PO SCH (05:00)
[2019-10-22] MEDS: DOCUSATE SODIUM 100 MG CAPSULE (FP) PO SCH (05:38)
[2019-10-22] MEDS: METHOCARBAMOL 500 MG TABLET PO PRN (05:41)
[2019-10-22 09:29] VITALS: BP 95/70; PULSE 91; TEMP 97.5
[2019-10-22] MEDS ORDERED: METHADONE HCL 10 MG TABLET (FOR DETOX USE ONLY) PO ONE (10:00)
[2019-10-22] MEDS: PRENATAL VITAMINS W/ FOLIC ACID TABLET (FP) PO SCH (10:20)
[2019-10-22] MEDS: NICOTINE 14 MG/24 HOURS TOPICAL PATCH TD SCH (10:20)
[2019-10-23] MEDS ORDERED: chlordiazePOXIDE HCL 10 MG CAPSULE PO ONE (05:00)
[2019-10-23] MEDS ORDERED: METHADONE HCL 5 MG TABLET (FOR DETOX USE ONLY) PO ONE (06:00)
== END 2019-10-22 10:41 | disposition home or self-care (01) | DRG 773 ==
LOC: YASAS 08:18 → Y6N 09:43
PROVIDERS: ADMIT Allergy & Immunology; ATTEND Allergy & Immunology
PROC: HZ2ZZZZ Detoxification Services for Substance Abuse Treatment (ICD-10-PCS; principal; 2019-10-18)
DX: F11.23 Opioid dependence with withdrawal (principal); F10.230 Alcohol dependence with withdrawal, uncomplicated; F17.210 Nicotine dependence, cigarettes, uncomplicated; F25.0 Schizoaffective disorder, bipolar type; F19.24 Other psychoactive substance dependence with psychoactive substance-induced mood disorder; G47.00 Insomnia, unspecified; J45.909 Unspecified asthma, uncomplicated; K21.9 Gastro-esophageal reflux disease without esophagitis; R07.9 Chest pain, unspecified; B18.2 Chronic viral hepatitis C; Z87.42 Personal history of other diseases of the female genital tract; Z88.8 Allergy status to other drugs, medicaments and biological substances; Z91.19 Patient's noncompliance with other medical treatment and regimen; Z86.69 Personal history of other diseases of the nervous system and sense organs
CPT/HCPCS: 81025; 93005; 93010

== ENCOUNTER 2019-10-18 18:52 | Emergency (ER) | payer OTHER ==
--- NOTE | 2019-10-18 19:19 | PDOC ---
History of Present Illness - General Chief Complaint: Chest Pain Stated Complaint: CHEST PAIN Time Seen by Provider: 10/18/19 19:13 - History of Present Illness Initial Comments: 10/18/19 20:03 HPI: 49 y/o F with hx of HCV s/p tx, anemia, polysubsatnce abuse, GERD, bipolar disorder and schizoaffective disorder non-med compliant presenting from [facility] for 1 day of chest pain. She states she was admitted this morning after a recent alcohol and non-IV heroine binge for 2 weeks. Around 9am she reported severe midsternal chest pain that was described as a tightness and 10/10. She reported radiation to her back. The pain lasted an hour and improved after receiving librium, O2, methadone. She reports never having this pain before. She also reports SOB, nausea, chills, abd pain, SHOOK. She states the remainder of her symptoms feel like her previous withdrawal and pancreatitis pain. She denies emesis, fever, dysuria, hematuria. She reports drinking 2pints/day and up to 1/4 vodka/day. She last used heroine this morning prior to admission to [facility] and last drank last night. PMHx: as noted above ROS: as noted SHx: 3 cigs/day tobacco use; significant alcohol use; heroine use Allergies: NKDA ROS: GENERAL/CONSTITUTIONAL: +chills. No weakness. HEAD, EYES, EARS, NOSE AND THROAT: No change in vision. No ear pain or discharge. No sore throat. CARDIOVASCULAR: +chest pain, shortness of breath RESPIRATORY: No cough, wheezing, or hemoptysis. GASTROINTESTINAL: +nausea; no vomiting, diarrhea or constipation. GENITOURINARY: No dysuria, frequency, or change in urination. MUSCULOSKELETAL: No joint or muscle swelling or pain. No neck or back pain. SKIN: No rash NEUROLOGIC: +headache; no vertigo, loss of consciousness, or change in strength/ sensation. ENDOCRINE: No increased thirst. No abnormal weight change HEMATOLOGIC/LYMPHATIC: No anemia, easy bleeding, or history of blood clots. ALLERGIC/IMMUNOLOGIC: No hives or skin allergy. PE: GENERAL: Awake, alert, and fully oriented, no acute distress HEAD: No signs of trauma, normocephalic, atraumatic EYES: EOMI, sclera anicteric, conjunctiva clear ENT: Auricles normal inspection, hearing grossly normal, nares patent, oropharynx clear without exudates. Moist mucosa NECK: Normal ROM, no lymphadenopathy LUNGS: No increased work of breathing, symmetrical chest rise, clear to auscultation bilaterally, no wheezes, crackles or rhonchi HEART: Regular rate and rhythm, normal S1 and S2, no murmurs, peripheral pulses 2+ and equal bilaterally. ABDOMEN: Soft, nondistended, minimal epigastric ttp, normoactive bowel sounds. No guarding, no rebound. No masses. No CVAT MUSCULOSKELETAL: Normal inspection, FROM NEUROLOGICAL: Cranial nerves II through XII grossly intact. Normal speech, normal gait, no focal sensorimotor deficits. Negative FTN and HTS ataxia, negative asterixis SKIN: Warm, Dry, normal turgor, no rashes or lesions noted Past History - Past Medical History Allergies/Adverse Reactions: Allergies Allergy/AdvReac Type Severity Reaction Status Date / Time metoclopramide HCl Allergy Severe dystonic Verified 10/18/19 08:32 [From Reglan] reaction prochlorperazine maleate Allergy Severe DYSTONIA Verified 10/18/19 08:32 [From Compazine] haloperidol [From Haldol] Allergy Verified 10/18/19 08:32 mirtazapine [From Remeron] AdvReac Severe Difficulty Verified 10/18/19 08:32 Breathing Home Medications: Ambulatory Orders traZODone HCL [Trazodone HCl] 200 mg PO HS 04/03/19 Albuterol Sulfate Inhaler - [Ventolin HFA Inhaler -] 1 - 2 inh PO QID #1 inhaler 04/12/19 Diphenhydramine [Benadryl Capsule -] 50 mg PO BID PRN 07/06/19 Gabapentin [Neurontin] 600 mg PO BID 07/06/19 Ibuprofen 1 tab PO BID PRN #10 tablet MDD 2 07/17/19 Multivitamin [One-Daily Multi-Vitamin] 1 tab PO DAILY 07/17/19 Quetiapine Fumarate [Seroquel -] 300 mg PO HS 07/17/19 Calpine Carbonate [Eskalith -] 600 mg PO BID 08/10/19 Docusate Sodium [Colace -] 100 mg PO TID #90 capsule 08/20/19 Anemia: Yes (as a teen, had iron and transfusions) Asthma: Yes Cancer: No Cardiac Disorders: No CVA: No COPD: No CHF: No Dementia: No Diabetes: No GI Disorders: Yes (GERD) Disorders: No HTN: No Hypercholesterolemia: No Kidney Stones: No Liver Disease: Yes (hepatitis C, being treated with epclusa) Psychiatric Problems: Yes (Bipolar, PTSD, Depression) Seizures: No Thyroid Disease: No - Surgical History Abdominal Surgery: No Appendectomy: No Cardiac Surgery: No Cholecystectomy: No Lung Surgery: No Neurologic Surgery: No Orthopedic Surgery: No - Reproductive History (#): 13 Para: 11 PID: No - Immunization History TDAP Vaccination: Yes Immunization Up to Date: No - Psycho Social/Smoking Cessation Hx Smoking History: Current every day smoker Have you smoked in the past 12 months: No Number of Cigarettes Smoked Daily: 4 Cigars Per Day: 0 'Breaking Loose' booklet given: 10/18/19 Hx Alcohol Use: Yes (1 pint of vodka daily) Drug/Substance Use Hx: No Substance Use Type: Alcohol, Heroin, Marijuana Hx Substance Use Treatment: Yes ED Treatment Course - LABORATORY CBC & Chemistry Diagram: 10/18/19 21:55 10/18/19 21:55 Medical Decision Making - Medical Decision Making 10/18/19 22:39 49 y/o F with hx of HCV s/p tx, anemia, polysubsatnce abuse, GERD, bipolar disorder and schizoaffective disorder non-med compliant presenting from [facility] for 1 day of chest pain associated with SOB, n, abd pain. VSS, AF. PE with minimal epigastric ttp. DDx includes ACS vs gastritis/pud/dyspepsia vs alcohol withdrawal vs pancreatitis -cbc, cmp, mg, phos, lipase, cardiac profile, ekg, cxr -ivf, zofran 10/18/19 22:41 -not able to establish IV access with US; patient tolerating PO hydration, pain improving, nausea improved with odt zofran -will give po pepcid and maalox -patient reports negative stress test in the past; no family history of MD; no other risk factors of htn, obesity, hld, dm; will order 2nd trop 1:30am and DC to [facility] pending normal levels Discharge - Discharge Information Problems reviewed: Yes Clinical Impression/Diagnosis: Chest pain Qualifiers: Chest pain type: unspecified Qualified Code(s): R07.9 - Chest pain, unspecified Condition: Improved - Follow up/Referral Referrals: ON STAFF,NOT [Primary Care Provider] - - Patient Discharge Instructions - Post Discharge Activity
[2019-10-18 19:25] VITALS: TEMP 99
[2019-10-18 19:31] VITALS: BMI 26.4
[2019-10-18] MEDS ORDERED: ASPIRIN 81 MG CHEWABLE TABLETS PO ONE (19:55)
[2019-10-18] MEDS ORDERED: SODIUM CHLORIDE 1,000 ML IV STA (19:55)
[2019-10-18] MEDS ORDERED: ONDANSETRON 4 MG/2 ML VIAL IVPUSH ONE (19:56)
[2019-10-18] MEDS ORDERED: ACETAMINOPHEN INJECTION 100 ML IVPB ONE (20:12)
[2019-10-18] MEDS ORDERED: ONDANSETRON 4 MG/2 ML VIAL ONE (20:12)
[2019-10-18 22:03] LABS: EOS % 0.8 % (0-4.5); HEMATOCRIT 34.5 % (32.4-45.2); HEMOGLOBIN 11.8 GM/dL (10.7-15.3); LYMPH % 33.6 % (8-40); MCHC 34.2 g/dl (32.0-36.0); MEAN CELL VOLUME 99.5 fl (80-96); MEAN PLT VOLUME 9.9 fl (7.5-11.1); MONO % 6.4 % (3.8-10.2); NEUT % 58.2 % (42.8-82.8); PLATELET COUNT 110 K/MM3 (134-434); RBC 3.47 M/mm3 (3.60-5.2); RDW 15.1 % (11.6-15.6); WHITE BLOOD COUNT 5.4 K/mm3 (4.0-10.0)
[2019-10-18] MEDS ORDERED: ONDANSETRON *ODT* 4 MG TABLET SL ONE (22:05)
[2019-10-18] MEDS ORDERED: ASPIRIN COATED 81 MG TABLET.EC ONE (22:18)
[2019-10-18] MEDS ORDERED: ONDANSETRON *ODT* 4 MG TABLET ONE (22:18)
[2019-10-18 22:27] LABS: MAGNESIUM 1.8 mg/dL (1.8-2.4); PHOSPHOROUS 3.5 mg/dL (2.5-4.9)
[2019-10-18 22:31] LABS: ALBUMIN 3.7 g/dl (3.4-5.0); ALK PHOS 64 U/L (45-117); ANION GAP 8 MMOL/L (8-16); BILIRUBIN,TOTAL 0.4 mg/dL (0.2-1); BLOOD UREA NITROGEN 12.8 mg/dL (7-18); CALCIUM 8.6 mg/dL (8.5-10.1); CHLORIDE 104 mmol/L (98-107); CO2 27 mmol/L (21-32); CREATININE 0.7 mg/dL (0.55-1.3); GLUCOSE,RANDOM 85 mg/dL (74-106); POTASSIUM 3.7 mmol/L (3.5-5.1); SGOT/AST 44 U/L (15-37); SGPT/ALT 53 U/L (13-61); SODIUM 139 mmol/L (136-145); TOT PROT 7.1 g/dl (6.4-8.2)
[2019-10-18] MEDS ORDERED: FAMOTIDINE 20 MG TABLET PO ONE (22:34)
[2019-10-18] MEDS ORDERED: MAG HYDROX/AL HYDROX/SIMETH 30 ML UNIT-DOSE CUP PO ONE (22:34)
[2019-10-18] MEDS ORDERED: MAG HYDROX/AL HYDROX/SIMETH 30 ML UNIT-DOSE CUP ONE (22:41)
[2019-10-18] MEDS ORDERED: FAMOTIDINE 20 MG TABLET ONE (22:42)
[2019-10-18 23:00] LABS: INR 0.99 (0.83-1.09); PROTHROMBIN TIME (PATIENT) 11.7 SEC (9.7-13.0)
[2019-10-18 23:02] LABS: ACTIVATED PTT 31.8 SECONDS (25.2-36.5)
--- NOTE | 2019-10-18 23:13 | PDOC ---
Documentation entered by Fatimah Nicole SCRIBE, acting as scribe for Kasey Talbert MD. Kasey Talbert MD: This documentation has been prepared by the Corey leiva Brenda, SCRIBE, under my direction and personally reviewed by me in its entirety. I confirm that the documentation accurately reflects all work, treatment, procedures, and medical decision making performed by me. Attending Attestation - Resident Resident Name: CyrusLeanneford - ED Attending Attestation I have performed the following: I have examined & evaluated the patient, The case was reviewed & discussed with the resident, I agree w/resident's findings & plan, Exceptions are as noted - HPI HPI: 10/18/19 21:27 The patient is a 49 year old female, with a significant PMH of HCV s/p tx, anemia, GERD, bipolar disorder, schizoaffective disorder (non compliant with medications) and polysubstance abuse who presents to the emergency department from [facility] with 1 day of chest pain, which she describes as a tightness with a 10/10 severity, which was most severe at 9:00am. Patient also endorses radiation to her back. Patient reports being admitted into [facility] this morning after a recent alcohol and non-IV heroine binger for 2 weeks. Patient also endorses SOB, nausea, chills, abdominal pain and a headache, noting that these symptoms feel like her recent withdrawals and pancreatitis pain. Last used heroine this morning before going to [facility]. Social history: Polysubstance abuse PCP: not on staff - Physicial Exam PE: 10/18/19 23:10 awake alert lungs clear bilat heart rrr no mrg abd soft mild epigastric ttp. no rebound no guarding. nt nd ext wwp. no edema. no calf tenderness.alert oriented x 3. - Medical Decision Making 10/18/19 23:11 49 yo F with epigastric pain, chest pain. here from [facility] for heroin and etoh abuse. differential pancreatitis, gastritis, reflux, acs, infection such as pneumonia. pt on severity and description of pain dissection unlikley. plan labs ekg cxr lipase. trop. pt labs normal. given asa, cxr negative. will give pepcid and maalox also as pt constantly with burphing and refux sxs. pt states she has had a normal stress test many years ago. no family h/o heart disease. malinda 4 hr trop and dc back to [facility]. 10/19/19 00:44 trop negative x 2. will dc back to [facility]. Heart Score/ECG Review #1 ECG reviewed & interpreted by me at: 23:13 General ECG Interpretation: Sinus Rhythm, Normal Rate (69), Normal Intervals, No acute ischemic changes
--- NOTE | 2019-10-18 23:50 | PDOC ---
*Physical Exam - Vital Signs Last Vital Signs Temp Pulse Resp BP Pulse Ox 99.0 F 89 17 120/76 100 10/18/19 19:25 10/18/19 19:25 10/18/19 19:25 10/18/19 19:25 10/18/19 19:25 ED Treatment Course - LABORATORY CBC & Chemistry Diagram: 10/18/19 21:55 10/18/19 21:55 - ADDITIONAL ORDERS Additional order review: Laboratory Results 10/18/19 10/18/19 10/18/19 21:55 21:55 21:55 PT with INR INR PTT (Actin FS) Sodium 139 Potassium 3.7 Chloride 104 Carbon Dioxide 27 Anion Gap 8 BUN 12.8 Creatinine 0.7 Est GFR (CKD-EPI)AfAm 118.74 Est GFR (CKD-EPI)NonAf 102.45 Random Glucose 85 Calcium 8.6 Phosphorus 3.5 Magnesium 1.8 Total Bilirubin 0.4 AST 44 H ALT 53 Alkaline Phosphatase 64 Creatine Kinase 126 Troponin I < 0.02 Total Protein 7.1 Albumin 3.7 Lipase 161 10/18/19 21:55 PT with INR 11.70 INR 0.99 PTT (Actin FS) 31.8 Sodium Potassium Chloride Carbon Dioxide Anion Gap BUN Creatinine Est GFR (CKD-EPI)AfAm Est GFR (CKD-EPI)NonAf Random Glucose Calcium Phosphorus Magnesium Total Bilirubin AST ALT Alkaline Phosphatase Creatine Kinase Troponin I Total Protein Albumin Lipase 10/18/19 21:55 RBC 3.47 L MCV 99.5 H MCHC 34.2 RDW 15.1 MPV 9.9 Neutrophils % 58.2 Lymphocytes % 33.6 Monocytes % 6.4 Eosinophils % 0.8 Basophils % 1.0 - Medications Given in the ED: ED Medications Discontinued Medications Generic Name Dose Route Start Last Admin Trade Name Freq PRN Reason Stop Dose Admin Al Hydroxide/Mg Hydroxide 30 ml 10/18/19 22:34 10/18/19 23:03 Mylanta Oral Suspension - PO 10/18/19 22:35 30 ml ONCE ONE Administration Aspirin 162 mg 10/18/19 19:55 10/18/19 22:20 Asa - PO 10/18/19 19:56 162 mg ONCE ONE Administration Famotidine 20 mg 10/18/19 22:34 10/18/19 23:04 Pepcid - PO 10/18/19 22:35 20 mg ONCE ONE Administration Ondansetron HCl 4 mg 10/18/19 22:05 10/18/19 22:20 Zofran Odt - SL 10/18/19 22:06 4 mg ONCE ONE Administration Medical Decision Making - Medical Decision Making 10/18/19 23:48 sign out received by noon team [facility] cp first trop neg to do - has bed at [facility] - f/u 2nd trop - go by EMS 2nd trop neg; dc as above Discharge - Discharge Information Problems reviewed: Yes Clinical Impression/Diagnosis: Chest pain Qualifiers: Chest pain type: unspecified Qualified Code(s): R07.9 - Chest pain, unspecified Condition: Improved - Follow up/Referral Referrals: ON STAFF,NOT [Primary Care Provider] - - Patient Discharge Instructions Patient Printed Discharge Instructions: Opioid Addiction, DI for Atypical Chest Pain Additional Instructions: you need to follow up with a indoor sports centre manager. your labs ekg and chest xray are negative., please see referral infomration for Dr Rojas, indoor sports centre manager. call to schedule. followup. return for any problems or concerns. - Post Discharge Activity
[2019-10-19 01:56] VITALS: BP 120/78; PULSE 86
[2019-10-19] MEDS ORDERED: QUEtiapine FUMARATE 200 MG TABLET PO SCH (22:00)
[2019-10-19] MEDS ORDERED: traZODone HCL 50 MG TABLET (FP) PO SCH (22:00)
--- NOTE | 2019-10-22 13:36 | EKG ---
Test Reason : Blood Pressure : / mmHG Vent. Rate : 069 BPM Atrial Rate : 069 BPM P-R Int : 144 ms QRS Dur : 088 ms QT Int : 404 ms P-R-T Axes : 048 023 039 degrees QTc Int : 432 ms NORMAL SINUS RHYTHM SEPTAL INFARCT , AGE UNDETERMINED ABNORMAL ECG WHEN COMPARED WITH ECG OF 18-OCT-2019 17:49, NO SIGNIFICANT CHANGE WAS FOUND Confirmed by VIVIAN SWANSON MD ([id number]) on 10/22/2019 1:36:15 PM Referred By: Confirmed By:VIVIAN SWANSON MD
== END 2019-10-19 01:53 | disposition short-term general hospital (02) ==
LOC: JER 18:52
DX: R07.9 Chest pain, unspecified (principal); J45.909 Unspecified asthma, uncomplicated; K21.9 Gastro-esophageal reflux disease without esophagitis; B18.2 Chronic viral hepatitis C; F10.10 Alcohol abuse, uncomplicated; F11.10 Opioid abuse, uncomplicated; F43.10 Post-traumatic stress disorder, unspecified; F31.9 Bipolar disorder, unspecified; Z86.2 Personal history of diseases of the blood and blood-forming organs and certain disorders involving the immune mechanism; Z88.8 Allergy status to other drugs, medicaments and biological substances
CPT/HCPCS: 36415; 71045-TC-FY; 80053; 82550; 83690; 83735; 84100; 84484; 85025; 85610; 85730; 93005; 93010; 99283-25; Q0162

== ENCOUNTER 2019-11-07 08:04 | Inpatient (IN) | payer OTHER ==
[2019-11-07 08:52] VITALS: BMI 28.3
--- NOTE | 2019-11-07 09:10 | HP ---
Screened but not Admitted - Documentation of Visit Screened but not Admitted: Yes Left Prior to Completion of Assessment: Yes Insurance Authorization Denied: No Patient Does Not Meet Criteria for Admission: No Level of Care Recommended at this Time: Other Alternative Treatment/Mcc Info Provided: No Additional Information/Explanation: Patient left before being seen.
--- NOTE | 2019-11-07 09:20 | HP ---
COWS - Scale Resting Pulse: 1= NV 81-100 Sweatin= Chills/Flushing Restless Observation: 1= Difficult to Sit Still Pupil Size: 1= Pupils >than Normal Bone or Joint Aches: 2= Severe Diffuse Aches Runny Nose/ Eye Tearin= Nasal Congestion GI Upset > 30mins: 1= Stomach Cramp Tremor Observation: 1= Tremor [place], Not Seen Yawning Observation: 0= None Anxiety or Irritability: 2=Irritable/Anxious Goose Flesh Skin: 0=Smooth Skin COWS Score: 11 CIWA Score Nausea/Vomitin-Mild Nausea/No Vomiting Muscle Tremors: 2 Anxiety: 3 Agitation: 4-Moderately Restless Paroxysmal Sweats: 1-Minimal Palms Moist Orientation: 1-Uncertain about Date Tacttile Disturbances: 0-None Auditory Disturbances: 0-None Visual Disturbances: 0-None Headache: 2-Mild CIWA-Ar Total Score: 14 - Admission Criteria OASAS Guidelines: Admission for Medically Managed Detox: Requires at least one of the followin. CIWA greater than 12 2. Seizures within the past 24 hours 3. Delirium tremens within the past 24 hours 4. Hallucinations within the past 24 hours 5. Acute intervention needed for co occurring medical disorder 6. Acute intervention needed for co occurring psychiatric disorder 7. Severe withdrawal that cannot be handled at a lower level of care (continued vomiting, continued diarrhea, abnormal vital signs) requiring intravenous medication and/or fluids 8. Admitting History and Physical - Admission Chief Complaint: "I need help and I can't do it by myself." History of Present Illness: 49 year old female with alcohol dependence with withdrawals. She did enter detox in 10/18/19 - 10/21/19 and signed out AMA without completing detox. She has returned to using heroin and is drinking on a constant basis. She is drinking 1 quart of vodka daily, last drank this morning. She had a blackout just 2 days ago and fell and has a right arm contusion. She also had a fall hitting her head requiring stitches on her left parietal area. She denies seizures from withdrawals. She is using heroin 10 bags of heroin daily again, she has a narcan spray at home but does not carry it. PMH: Anemia, Asthma, HCV treated and undetectable, Gastritis, H/O Pancreatitis Psych: Bipolar, Depression, Schizophrenia Patient has poor impulse control and has relapses multiple times. Patient is domiciled but has poor structure and control and support systems. This time she will be behaviorally contract for this treatment and if she returns without completing this detox, she will be referred out to another institution upon subsequent visit. History Source: Patient Limitations to Obtaining History: No Limitations - Past Medical History Pulmonary: Yes: Asthma Gastrointestinal: Yes: Gastritis, Pancreatitis (? chronic pancreatitis) Hepatobiliary: Yes: Hepatitis C (Untreated) ...LMP: 10/31/14 Heme/Onc: Yes: Anemia Infectious Disease: Yes: STD's (just treated in ER for gonorrhea with injection and pills) Psych: Yes: Addictions (Alcohol, Marijuana), Bipolar - Past Surgical History Past Surgical History: Yes: None, - Smoking History Smoking history: Current every day smoker Have you smoked in the past 12 months: No Aproximately how many cigarettes per day: 4 - Alcohol/Substance Use Hx Alcohol Use: Yes (1 pint of vodka daily) Number of Drinks Daily: 4 (4 pints a day) History of Substance Use: reports: Heroin - Social History Usual Living Arrangement: Yes: Alone Do you think of yourself as: Straight/Heterosexual ADL: Independent Occupation: Unemployed History of Recent Travel: No Admission ROS [facility] - [facility] Allergies/Adverse Reactions: Allergies Allergy/AdvReac Type Severity Reaction Status Date / Time metoclopramide HCl Allergy Severe dystonic Verified 11/07/19 08:42 [From Reglan] reaction prochlorperazine maleate Allergy Severe DYSTONIA Verified 11/07/19 08:42 [From Compazine] haloperidol [From Haldol] Allergy Verified 11/07/19 08:42 mirtazapine [From Remeron] AdvReac Severe Difficulty Verified 11/07/19 08:42 Breathing - Ebola screening Have you traveled outside of the country in the last 21 days: No (N) Have you had contact with anyone from an Ebola affected area: No Have you been sick,other than usual withdrawal symptoms: No Do you have a fever: No - Review of Systems Constitutional: Chills, Diaphoresis EENT: reports: No Symptoms Reported Respiratory: reports: No Symptoms reported Cardiac: reports: No Symptoms Reported GI: reports: No Symptoms Reported : reports: No Symptoms Reported Musculoskeletal: reports: No Symptoms Reported Integumentary: reports: No Symptoms Reported Neuro: reports: No Symptoms reported Endocrine: reports: No Symptoms Reported Hematology: reports: No Symptoms Reported Psychiatric: reports: Judgement Intact, Mood/Affect Appropiate, Orientated x3 Other Systems: Reviewed and Negative Patient History - Patient Medical History Hx Anemia: Yes (as a teen, had iron and transfusions) Hx Asthma: Yes Hx Chronic Obstructive Pulmonary Disease (COPD): No Hx Cancer: No Hx Cardiac Disorders: No Hx Congestive Heart Failure: No Hx Hypertension: No Hx Hypercholesterolemia: No Hx Pacemaker: No HX Cerebrovascular Accident: No Hx Seizures: No Hx Dementia: No Hx Diabetes: No Hx Gastrointestinal Disorders: Yes (GERD) Hx Liver Disease: Yes (hepatitis C, being treated with epclusa) Hx Genitourinary Disorders: No Hx Sexually Transmitted Disorders: Yes (Chlamydia) Hx Renal Disease (ESRD): No Hx Thyroid Disease: No Hx Human Immunodeficiency Virus (HIV): No (last 01/16 negative) Hx Hepatitis C: Yes (treated) Hx Depression: Yes Hx Suicide Attempt: No Hx Bipolar Disorder: Yes (no med,non compliance) Hx Schizophrenia: Yes - Patient Surgical History Past Surgical History: Yes Hx Neurologic Surgery: No Hx Cataract Extraction: No Hx Cardiac Surgery: No Hx Lung Surgery: No Hx Breast Surgery: No Hx Breast Biopsy: No Hx Abdominal Surgery: No Hx Appendectomy: No Hx Cholecystectomy: No Hx Genitourinary Surgery: No Hx Section: Yes (x 2) Hx Orthopedic Surgery: No Hx Hysterectomy: No Other Surgical History: age 9 - abscess/tumor, benign per pt Anesthesia Reaction: No - PPD History Previous Implant?: Yes Documented Results: Negative w/proof Implanted On Prior [facility] Admission?: Yes Date: 02/17/19 Results: 0mm PPD to be Administered?: No - Reproductive History Last Menstrual Period: 10/31/14 - Smoking Cessation Smoking history: Current every day smoker Have you smoked in the past 12 months: No Aproximately how many cigarettes per day: 4 Cigars Per Day: 0 Hx Chewing Tobacco Use: No Initiated information on smoking cessation: Yes 'Breaking Loose' booklet given: 11/07/19 - Substances abused Alcohol Substance route: Oral Frequency: Daily Amount used: 1 quart of vodka Age of first use: 17 Date of last use: 11/07/19 Heroin Substance route: Inhalation Frequency: Daily Amount used: 8-9 bags Age of first use: 17 Date of last use: 11/07/19 Admission Physical Exam [facility] - Vital Signs Vital Signs: Vital Signs - 24 hr 11/07/19 08:33 Temperature 98.0 F Pulse Rate 99 H Respiratory 18 Rate Blood Pressure 132/91 - Physical General Appearance: Yes: Mild Distress, Alcohol on Breath, Tremorous, Irritable , Sweating HEENTM: Yes: EOMI, Hearing grossly Normal, Normal ENT Inspection, Normocephalic , Normal Voice, PARTH, Pharynx Normal, Tm's normal, Other (uses glasses) Respiratory: Yes: Chest Non-Tender, Lungs Clear, Normal Breath Sounds, No Respiratory Distress, No Accessory Muscle Use Neck: Yes: No masses,lesions,Nodules, Supple, Trachea in good position Breast: Yes: Breast Exam Deferred Cardiology: Yes: Regular Rhythm, Regular Rate, S1, S2 Abdominal: Yes: Normal Bowel Sounds, Non Tender, Flat, Soft Genitourinary: Yes: Within Normal Limits Back: Yes: Normal Inspection Musculoskeletal: Yes: full range of Motion, Gait Steady, Pelvis Stable Extremities: Yes: Normal Capillary Refill, Normal Inspection, Normal Range of Motion, Non-Tender Neurological: Yes: boat officer II-XII NML intact, Fully Oriented, Alert, Motor Strength 5/5, Normal Mood/Affect, Normal Response Integumentary: Yes: Normal Color, Warm Lymphatic: Yes: Within Normal Limits Cleared for Admission [facility] - Detox or Rehab [facility] Level of Care: Medically Managed Detox Regimen/Protocol: Methadone/Librium Claeared for Rehab Admission: No Screened but not Admitted - Documentation of Visit Screened but not Admitted: No Urine Drug Screen - Test Device Lot number: [id number] Expiration date: 05/30/21 - Control Is test valid?: Yes - Results Drug screen NEGATIVE: No Urine drug screen results: THC-Marijuana, MOP-Opiates, BZO-Benzodiazepines Inpatient Rehab Admission - Rehab Decision to Admit Inpatient rehab admission?: No
[2019-11-07] MEDS ORDERED: IBUPROFEN 400 MG TABLET (FP) PO PRN (09:38)
[2019-11-07] MEDS ORDERED: cloNIDine HCL 0.1 MG TABLET PO PRN (09:38)
[2019-11-07] MEDS ORDERED: MELATONIN 5 MG TABLETS PO PRN (09:38)
[2019-11-07] MEDS ORDERED: chlordiazePOXIDE HCL 25 MG CAPSULE PO PRN (09:38)
[2019-11-07] MEDS ORDERED: BISMUTH SUBSALICYLATE 262 MG/15 ML BTL PO PRN (09:38)
[2019-11-07] MEDS ORDERED: hydrOXYzine PAMOATE 25 MG CAPSULE (FP) PO PRN (09:38)
[2019-11-07] MEDS ORDERED: MENTHOL/PHENOL 1 EACH UD MM PRN (09:38)
[2019-11-07] MEDS ORDERED: MAGNESIUM CITRATE 300 ML BOTTLE PO PRN (09:38)
[2019-11-07] MEDS ORDERED: ACETAMINOPHEN 325 MG TABLET (FP) PO PRN ×2 (09:38)
[2019-11-07] MEDS ORDERED: MAGNESIUM HYDROX 2400MG/30ML ORAL SUSPENSION 30 ML CUP PO PRN (09:38)
[2019-11-07] MEDS ORDERED: METHADONE HCL 10 MG TABLET (FOR DETOX USE ONLY) PO ONE (09:38)
[2019-11-07] MEDS ORDERED: MAG HYDROX/AL HYDROX/SIMETH 30 ML UNIT-DOSE CUP PO PRN (09:38)
[2019-11-07] MEDS ORDERED: ALBUTEROL SO4 8 GM HFA INHALER IH PRN (09:41)
[2019-11-07] MEDS: NICOTINE 14 MG/24 HOURS TOPICAL PATCH TD SCH (10:35)
[2019-11-07] MEDS: BUPRENORPHINE/NALOXONE 8 MG/2 MG FILM PACKET SL SCH ×2 (10:35→22:21)
[2019-11-07] MEDS: chlordiazePOXIDE HCL 25 MG CAPSULE PO SCH ×3 (10:35→22:21)
[2019-11-07] MEDS: PRENATAL VITAMINS W/ FOLIC ACID TABLET (FP) PO SCH (10:35)
[2019-11-07] MEDS: DOCUSATE SODIUM 100 MG CAPSULE (FP) PO SCH ×2 (13:34→22:21)
[2019-11-07] MEDS: METHOCARBAMOL 500 MG TABLET PO PRN (13:34)
--- NOTE | 2019-11-07 14:41 | CONSULT ---
[facility] Psychiatric Consult - Data Date of interview: 11/07/19 Admission source: [facility] Identifying data: Readmission to [address] [place] [address] for this 49 y/o female, self- referred for detoxification (heroin, alcohol). Patient is single, a mother of eleven, domiciled, unemployed and supported on welfare. Substance Abuse History: Discussed with the patient in this interview. Concordant with data listed in current [facility] report as follows : Smoking history: Current every day smoker. Have you smoked in the past 12 months: No. Aproximately how many cigarettes per day: 4. Cigars Per Day: 0. Hx Chewing Tobacco Use: No. Initiated information on smoking cessation: Yes. 'Breaking Loose' booklet given: 11/07/19. - Substances abused. Alcohol. Substance route: Oral. Frequency: Daily. Amount used: 1 quart of vodka. Age of first use: 17. Date of last use: 11/07/19. Heroin. Substance route: Inhalation. Frequency: Daily. Amount used: 8-9 bags. Age of first use: 17. Date of last use: 11/07/19 Medical History: No changes in medical profile since encounter of 10/19/19. Remains remarkable for antecedent of withdrawal-related seizures, anemia, bronchial asthma, GERD, hepatitis C, past treatment for pancreatitis and multiple surgical interventions (two sections + excision of a benign tumor in right leg). Ms Mao sees Dr Namrata Arce at [facility] for outpatient medical services. Psychiatric History: No changes in narrative since encounter of 10/19/19. History as follows : two psychiatric hospitalizations ([facility] + [facility]). Patient is reportedly diagnosed with Schizoaffective Disorder and PTSD. Ms Mao used to be followed at [facility] ( [facility]) in [place]. Records indicate past treatment with various drugs which include (but not limited to) valproate, lithium, gabapentin, olanzapine and trazodone. Patient is known for chronic non-adherence to psychotropic medications and OPD clinic appointments. Ms Mao usually utilizes services at detox/rehab inpatient units as outlets for psychotropic medications. Denies history of suicide attempts. Patient is followed by Dr Win Yu at [facility] ([facility]) in [place]. Used to be prescribed lithium 300 mg/bid + zyprexa 15 mg/hs + trazodone 200 mg/hs. In this interview, the patient declares that she is willing to take only trazodone 100 mg/hs + seroquel 300 mg/hs. Physical/Sexual Abuse/Trauma History: Not discussed. Patient declines. Additional Comment: Urine drug screen results: THC-Marijuana, MOP-Opiates, BZO- Benzodiazepines. Noted. Mental Status Exam - Mental Status Exam Alert and Oriented to: Time, Place, Person Cognitive Function: Good Patient Appearance: Well Groomed (pierced lips with metallic rings) Mood: Angry, Hostile, Nervous, Irritable Affect: Mood Congruent, Blunted Patient Behavior: Inappropriate (argumentative), Uncooperative, Impulsive Speech Pattern: Clear, Inappropriate, Excessive Voice Loudness: Mildly Loud Thought Process: Goal Oriented Thought Disorder: Not Present Hallucinations: Denies Suicidal Ideation: Denies Homicidal Ideation: Denies Insight/Judgement: Poor Sleep: Poorly, Difficulty falling asleep Appetite: Good Gait/Station: Normal Psychiatric Findings - Problem List ([place] 1, 2,3) (1) Alcohol use disorder Current Visit: Yes Status: Chronic (2) Opioid use disorder Current Visit: Yes Status: Chronic (3) Cannabis dependence, uncomplicated Current Visit: Yes Status: Chronic Comment: counseled cessation (4) Nicotine dependence Current Visit: Yes Status: Chronic Qualifiers: Nicotine product type: cigarettes Substance use status: uncomplicated Qualified Code(s): F17.210 - Nicotine dependence, cigarettes, uncomplicated Comment: urge cessation. (5) Substance induced mood disorder Current Visit: Yes Status: Chronic (6) PTSD (post-traumatic stress disorder) Current Visit: Yes Status: Chronic Comment: As per existing records and self -report. (7) Schizoaffective disorder Current Visit: Yes Status: Chronic Qualifiers: Schizoaffective disorder type: bipolar Qualified Code(s): F25.0 - Schizoaffective disorder, bipolar type Comment: On medications. Followed at [facility]. Non- compliant with OPD care. (8) Insomnia Current Visit: Yes Status: Chronic (9) Non-compliance Current Visit: Yes Status: Chronic - Initial Treatment Plan Initial Treatment Plan: Psychiatric interview is conducted in the presence of a female nurse (Ms Nunez) with patient's full consent (verbal). Sleep hygiene. Support. Psychoeducation. AA/NA meetings. Groups. Resumed : seroquel 300 mg po hs + trazodone 100 mg po hs. Side effects/benefits of both drugs are discussed with the patient. Ms Mao expresses her agreement with this plan of care. Gave verbal informed consent to MD. Observation.
[2019-11-07 15:40] LABS: HEMATOCRIT 37.8 % (32.4-45.2); HEMOGLOBIN 12.6 GM/dL (10.7-15.3); MCH 33.9 pg (25.7-33.7); MCHC 33.4 g/dl (32.0-36.0); MEAN CELL VOLUME 101.3 fl (80-96); MEAN PLT VOLUME 10.1 fl (7.5-11.1); PLATELET COUNT 117 K/MM3 (134-434); RBC 3.73 M/mm3 (3.60-5.2); RDW 14.4 % (11.6-15.6); WHITE BLOOD COUNT 3.5 K/mm3 (4.0-10.0)
[2019-11-07 15:56] LABS: BILIRUBIN,TOTAL 0.2 mg/dL (0.2-1); BLOOD UREA NITROGEN 9.5 mg/dL (7-18); CALCIUM 8.3 mg/dL (8.5-10.1); CREATININE 0.9 mg/dL (0.55-1.3); POTASSIUM 3.8 mmol/L (3.5-5.1); TOT PROT 7.4 g/dl (6.4-8.2)
[2019-11-07] MEDS ORDERED: QUEtiapine FUMARATE 100 MG TABLET (FP) ONE (20:47)
[2019-11-07] MEDS ORDERED: traZODone HCL 100 MG TABLET (FP) PO SCH (22:00)
[2019-11-07] MEDS: QUEtiapine FUMARATE 300 MG TABLET PO SCH (22:20)
[2019-11-07] MEDS: THIAMINE HCL 100 MG TABLET (FP) PO SCH (22:20)
[2019-11-07] MEDS: traZODone HCL 100 MG TABLET (FP) PO SCH (22:21)
[2019-11-08] MEDS: chlordiazePOXIDE HCL 25 MG CAPSULE PO SCH ×4 (05:41→22:29)
[2019-11-08] MEDS: DOCUSATE SODIUM 100 MG CAPSULE (FP) PO SCH ×3 (06:51→22:28)
[2019-11-08] MEDS ORDERED: METHADONE (DETOX) 20 MG, METHADONE (DETOX) 5 MG PO ONE (10:00)
[2019-11-08] MEDS: BUPRENORPHINE/NALOXONE 8 MG/2 MG FILM PACKET SL SCH ×2 (10:11→22:27)
[2019-11-08] MEDS: PRENATAL VITAMINS W/ FOLIC ACID TABLET (FP) PO SCH (10:11)
[2019-11-08] MEDS: NICOTINE 14 MG/24 HOURS TOPICAL PATCH TD SCH (10:12)
--- NOTE | 2019-11-08 11:22 | PN ---
S CIWA - CIWA Score Nausea/Vomitin-Mild Nausea/No Vomiting Muscle Tremors: 2 Anxiety: 3 Agitation: 1-Slight > Activity Paroxysmal Sweats: 1-Minimal Palms Moist Orientation: 1-Uncertain about Date Tacttile Disturbances: 1-Very Mild Itch/Numbness Auditory Disturbances: 0-None Visual Disturbances: 1-Very Mild Sensitivity Headache: 1-Very Mild CIWA-Ar Total Score: 12 BHS COWS - Scale Resting Pulse: 0= OR 80 or Below Sweatin= Chills/Flushing Restless Observation: 1= Difficult to Sit Still Pupil Size: 0= Normal to Room Light Bone or Joint Aches: 2= Severe Diffuse Aches Runny Nose/ Eye Tearin= Nasal Congestion GI Upset > 30mins: 2= Nausea/Diarrhea Tremor Observation of Outstretched Hands: 1= Tremor [place], Not Seen Yawning Observation: 1= 1-2x During Session Anxiety or Irritability: 2=Irritable/Anxious Goose Flesh Skin: 0=Smooth Skin COWS Score: 11 S Progress Note (SOAP) Subjective: Patient is here for alcohol and opioid detox c/o of decrease appetite, nausea, chills, sweats, interrupted sleep, nasal congestion Objective: 11/08/19 11:19 Vital Signs Temperature 97.4 F L 11/08/19 09:10 Pulse Rate 57 L 11/08/19 09:10 Respiratory Rate 16 11/08/19 09:10 Blood Pressure 95/60 11/08/19 09:10 O2 Sat by Pulse Oximetry (%) Laboratory Last Values WBC 3.5 K/mm3 (4.0-10.0) L 11/07/19 10:11 RBC 3.73 M/mm3 (3.60-5.2) 11/07/19 10:11 Hgb 12.6 GM/dL (10.7-15.3) 11/07/19 10:11 Hct 37.8 % (32.4-45.2) 11/07/19 10:11 MCV 101.3 fl (80-96) H 11/07/19 10:11 MCH 33.9 pg (25.7-33.7) H 11/07/19 10:11 MCHC 33.4 g/dl (32.0-36.0) 11/07/19 10:11 RDW 14.4 % (11.6-15.6) 11/07/19 10:11 Plt Count 117 K/MM3 (134-434) L 11/07/19 10:11 MPV 10.1 fl (7.5-11.1) 11/07/19 10:11 Sodium 140 mmol/L (136-145) 11/07/19 10:11 Potassium 3.8 mmol/L (3.5-5.1) 11/07/19 10:11 Chloride 106 mmol/L (98-107) 11/07/19 10:11 Carbon Dioxide 27 mmol/L (21-32) 11/07/19 10:11 Anion Gap 7 MMOL/L (8-16) L 11/07/19 10:11 BUN 9.5 mg/dL (7-18) 11/07/19 10:11 Creatinine 0.9 mg/dL (0.55-1.3) 11/07/19 10:11 Est GFR (CKD-EPI)AfAm 87.63 11/07/19 10:11 Est GFR (CKD-EPI)NonAf 75.61 11/07/19 10:11 Random Glucose 84 mg/dL (74-106) 11/07/19 10:11 Calcium 8.3 mg/dL (8.5-10.1) L 11/07/19 10:11 Total Bilirubin 0.2 mg/dL (0.2-1) 11/07/19 10:11 AST 125 U/L (15-37) H 11/07/19 10:11 ALT 89 U/L (13-61) H 11/07/19 10:11 Alkaline Phosphatase 86 U/L (45-117) 11/07/19 10:11 Total Protein 7.4 g/dl (6.4-8.2) 11/07/19 10:11 Albumin 4.0 g/dl (3.4-5.0) 11/07/19 10:11 POC Urine HCG, Qual Negative 11/07/19 10:13 RPR Titer Nonreactive (NONREACTIVE) 11/07/19 10:11 HIV 1&2 Antibody Screen Negative 11/07/19 10:11 HIV P24 Antigen Negative 11/07/19 10:11 Assessment: 11/08/19 11:21 Aox3 no acute distress + nasal congestion, no sinus tenderness no adventitious breath sounds full ROM ambualating in the unit withdrawal sx Plan: increase fluids continue detox continue to monitor
[2019-11-08] MEDS: METHOCARBAMOL 500 MG TABLET PO PRN (11:58)
--- NOTE | 2019-11-08 12:16 | PN ---
[facility] Progress Note Note: reports taking benadryl 25 mg po bid daily for itchy skin and environmental allergic reactions discontinue vistaril begin benadryl 25 mg po bid
[2019-11-08] MEDS: diphenhydrAMINE HCL 25 MG CAPSULE (FP) PO SCH ×2 (15:26→22:28)
[2019-11-08] MEDS ORDERED: QUEtiapine FUMARATE 100 MG TABLET (FP) ONE (20:59)
[2019-11-08] MEDS: THIAMINE HCL 100 MG TABLET (FP) PO SCH (22:27)
[2019-11-08] MEDS: QUEtiapine FUMARATE 300 MG TABLET PO SCH (22:28)
[2019-11-08] MEDS: traZODone HCL 100 MG TABLET (FP) PO SCH (22:28)
[2019-11-09] MEDS: DOCUSATE SODIUM 100 MG CAPSULE (FP) PO SCH ×3 (05:20→22:12)
[2019-11-09] MEDS: chlordiazePOXIDE HCL 25 MG CAPSULE PO SCH ×4 (05:20→22:12)
--- NOTE | 2019-11-09 09:35 | PN ---
S CIWA - CIWA Score Nausea/Vomitin Muscle Tremors: 2 Anxiety: 3 Agitation: 1-Slight > Activity Paroxysmal Sweats: 1-Minimal Palms Moist Orientation: 0-Oriented Tacttile Disturbances: 1-Very Mild Itch/Numbness Auditory Disturbances: 0-None Visual Disturbances: 0-None Headache: 1-Very Mild CIWA-Ar Total Score: 12 S Progress Note (SOAP) Subjective: c/o of decrease appetite, nausea, interrupted sleep, chills Objective: 11/09/19 09:35 Vital Signs Temperature 96.1 F L 11/09/19 09:09 Pulse Rate 75 11/09/19 09:09 Respiratory Rate 18 11/09/19 09:09 Blood Pressure 90/60 11/09/19 09:09 O2 Sat by Pulse Oximetry (%) Laboratory Last Values WBC 3.5 K/mm3 (4.0-10.0) L 11/07/19 10:11 RBC 3.73 M/mm3 (3.60-5.2) 11/07/19 10:11 Hgb 12.6 GM/dL (10.7-15.3) 11/07/19 10:11 Hct 37.8 % (32.4-45.2) 11/07/19 10:11 MCV 101.3 fl (80-96) H 11/07/19 10:11 MCH 33.9 pg (25.7-33.7) H 11/07/19 10:11 MCHC 33.4 g/dl (32.0-36.0) 11/07/19 10:11 RDW 14.4 % (11.6-15.6) 11/07/19 10:11 Plt Count 117 K/MM3 (134-434) L 11/07/19 10:11 MPV 10.1 fl (7.5-11.1) 11/07/19 10:11 Sodium 140 mmol/L (136-145) 11/07/19 10:11 Potassium 3.8 mmol/L (3.5-5.1) 11/07/19 10:11 Chloride 106 mmol/L (98-107) 11/07/19 10:11 Carbon Dioxide 27 mmol/L (21-32) 11/07/19 10:11 Anion Gap 7 MMOL/L (8-16) L 11/07/19 10:11 BUN 9.5 mg/dL (7-18) 11/07/19 10:11 Creatinine 0.9 mg/dL (0.55-1.3) 11/07/19 10:11 Est GFR (CKD-EPI)AfAm 87.63 11/07/19 10:11 Est GFR (CKD-EPI)NonAf 75.61 11/07/19 10:11 Random Glucose 84 mg/dL (74-106) 11/07/19 10:11 Calcium 8.3 mg/dL (8.5-10.1) L 11/07/19 10:11 Total Bilirubin 0.2 mg/dL (0.2-1) 11/07/19 10:11 AST 125 U/L (15-37) H 11/07/19 10:11 ALT 89 U/L (13-61) H 11/07/19 10:11 Alkaline Phosphatase 86 U/L (45-117) 11/07/19 10:11 Total Protein 7.4 g/dl (6.4-8.2) 11/07/19 10:11 Albumin 4.0 g/dl (3.4-5.0) 11/07/19 10:11 POC Urine HCG, Qual Negative 11/07/19 10:13 RPR Titer Nonreactive (NONREACTIVE) 11/07/19 10:11 HIV 1&2 Antibody Screen Negative 11/07/19 10:11 HIV P24 Antigen Negative 11/07/19 10:11 Assessment: 11/09/19 09:35 Patient AOx3 no acute distress EENT WNL + multiple lip piercing no adventitious breath sounds full ROM no gait disturbance withdrawal sx Plan: continue BUP BID for opioid use disorder increase fluids repeat CBC pending continue to monitor
[2019-11-09] MEDS ORDERED: METHADONE HCL 10 MG TABLET (FOR DETOX USE ONLY) PO ONE (10:00)
[2019-11-09] MEDS: PRENATAL VITAMINS W/ FOLIC ACID TABLET (FP) PO SCH (10:12)
[2019-11-09] MEDS: METHOCARBAMOL 500 MG TABLET PO PRN (10:12)
[2019-11-09] MEDS: NICOTINE 14 MG/24 HOURS TOPICAL PATCH TD SCH (10:12)
[2019-11-09] MEDS: BUPRENORPHINE/NALOXONE 8 MG/2 MG FILM PACKET SL SCH ×2 (10:13→22:12)
[2019-11-09] MEDS: diphenhydrAMINE HCL 25 MG CAPSULE (FP) PO SCH ×2 (10:13→22:12)
[2019-11-09 10:46] LABS: HEMATOCRIT 37.6 % (32.4-45.2); HEMOGLOBIN 12.6 GM/dL (10.7-15.3); MCH 33.9 pg (25.7-33.7); MCHC 33.5 g/dl (32.0-36.0); MEAN CELL VOLUME 101.1 fl (80-96); MEAN PLT VOLUME 10.1 fl (7.5-11.1); PLATELET COUNT 102 K/MM3 (134-434); RBC 3.72 M/mm3 (3.60-5.2); RDW 14.2 % (11.6-15.6); WHITE BLOOD COUNT 2.2 K/mm3 (4.0-10.0)
[2019-11-09] MEDS: traZODone HCL 100 MG TABLET (FP) PO SCH (22:12)
[2019-11-09] MEDS: THIAMINE HCL 100 MG TABLET (FP) PO SCH (22:12)
[2019-11-10] MEDS ORDERED: chlordiazePOXIDE HCL 10 MG CAPSULE PO PRN
[2019-11-10] MEDS: chlordiazePOXIDE HCL 10 MG CAPSULE PO SCH ×4 (05:30→22:29)
[2019-11-10] MEDS: DOCUSATE SODIUM 100 MG CAPSULE (FP) PO SCH ×3 (05:30→22:29)
[2019-11-10] MEDS: METHOCARBAMOL 500 MG TABLET PO PRN ×2 (05:32→14:43)
[2019-11-10] MEDS ORDERED: METHADONE (DETOX) 10 MG, METHADONE (DETOX) 5 MG PO ONE (10:00)
[2019-11-10] MEDS: PRENATAL VITAMINS W/ FOLIC ACID TABLET (FP) PO SCH (10:34)
[2019-11-10] MEDS: BUPRENORPHINE/NALOXONE 8 MG/2 MG FILM PACKET SL SCH ×2 (10:34→22:29)
[2019-11-10] MEDS: diphenhydrAMINE HCL 25 MG CAPSULE (FP) PO SCH ×2 (10:34→22:29)
[2019-11-10] MEDS: NICOTINE 14 MG/24 HOURS TOPICAL PATCH TD SCH (11:21)
--- NOTE | 2019-11-10 11:52 | PN ---
S CIWA - CIWA Score Nausea/Vomitin-No Nausea/No Vomiting Muscle Tremors: None Anxiety: 3 Agitation: 0-Normal Activity Paroxysmal Sweats: 3 Orientation: 0-Oriented Tacttile Disturbances: 0-None Auditory Disturbances: 0-None Visual Disturbances: 0-None Headache: 2-Mild CIWA-Ar Total Score: 8 BHS Progress Note (SOAP) Subjective: c/o sweats, anxiety, and headache. Objective: 11/10/19 11:52 Vital Signs 11/10/19 11/10/19 06:51 09:29 Temperature 96.7 F L 96.2 F L Pulse Rate 70 82 Respiratory 18 18 Rate Blood Pressure 99/65 98/71 Laboratory Last Values WBC 2.2 K/mm3 (4.0-10.0) L 11/09/19 07:45 RBC 3.72 M/mm3 (3.60-5.2) 11/09/19 07:45 Hgb 12.6 GM/dL (10.7-15.3) 11/09/19 07:45 Hct 37.6 % (32.4-45.2) 11/09/19 07:45 MCV 101.1 fl (80-96) H 11/09/19 07:45 MCH 33.9 pg (25.7-33.7) H 11/09/19 07:45 MCHC 33.5 g/dl (32.0-36.0) 11/09/19 07:45 RDW 14.2 % (11.6-15.6) 11/09/19 07:45 Plt Count 102 K/MM3 (134-434) L 11/09/19 07:45 MPV 10.1 fl (7.5-11.1) 11/09/19 07:45 Sodium 140 mmol/L (136-145) 11/07/19 10:11 Potassium 3.8 mmol/L (3.5-5.1) 11/07/19 10:11 Chloride 106 mmol/L (98-107) 11/07/19 10:11 Carbon Dioxide 27 mmol/L (21-32) 11/07/19 10:11 Anion Gap 7 MMOL/L (8-16) L 11/07/19 10:11 BUN 9.5 mg/dL (7-18) 11/07/19 10:11 Creatinine 0.9 mg/dL (0.55-1.3) 11/07/19 10:11 Est GFR (CKD-EPI)AfAm 87.63 11/07/19 10:11 Est GFR (CKD-EPI)NonAf 75.61 11/07/19 10:11 Random Glucose 84 mg/dL (74-106) 11/07/19 10:11 Calcium 8.3 mg/dL (8.5-10.1) L 11/07/19 10:11 Total Bilirubin 0.2 mg/dL (0.2-1) 11/07/19 10:11 AST 125 U/L (15-37) H 11/07/19 10:11 ALT 89 U/L (13-61) H 11/07/19 10:11 Alkaline Phosphatase 86 U/L (45-117) 11/07/19 10:11 Total Protein 7.4 g/dl (6.4-8.2) 11/07/19 10:11 Albumin 4.0 g/dl (3.4-5.0) 11/07/19 10:11 POC Urine HCG, Qual Negative 11/07/19 10:13 RPR Titer Nonreactive (NONREACTIVE) 11/07/19 10:11 HIV 1&2 Antibody Screen Negative 11/07/19 10:11 HIV P24 Antigen Negative 11/07/19 10:11 Labs noted. Assessment: 11/10/19 11:52 AOX3, in no acute respiratory distress. Full ROM, ambulating in the unit. Withdrawal symptoms. Plan: continue detox.
[2019-11-10] MEDS ORDERED: QUEtiapine FUMARATE 100 MG TABLET (FP) ONE (21:53)
[2019-11-10] MEDS ORDERED: QUEtiapine FUMARATE 300 MG TABLET PO SCH (22:00)
[2019-11-10] MEDS: traZODone HCL 100 MG TABLET (FP) PO SCH (22:29)
[2019-11-10] MEDS: THIAMINE HCL 100 MG TABLET (FP) PO SCH (22:29)
[2019-11-11] MEDS ORDERED: chlordiazePOXIDE HCL 10 MG CAPSULE PO SCH (05:00)
[2019-11-11] MEDS: DOCUSATE SODIUM 100 MG CAPSULE (FP) PO SCH (05:14)
[2019-11-11 06:52] VITALS: TEMP 97.5
--- NOTE | 2019-11-11 08:48 | DS ---
[facility] Detox Discharge Summary Admission Date: 11/07/19 Discharge Date: 11/11/19 - History Present History: Alcohol Dependence Additional Comments: 49 years old female admitted on 11/07/19 for alcohol withdrawal sx management treated with librium detox regimen patient is alert oriented x 3 cardiac s1s2 regular rate rhythm respiratory clear lungs bilaterally on auscultation extremities full range of motion Pertinent Past History: requests to be discharged one day early as per estimated discharge date of 11/12 case discussed with the nurse routine discharge is appropriated - Physical Exam Results Vital Signs: Vital Signs Temperature 97.5 F L 11/11/19 06:51 Pulse Rate 83 11/11/19 06:51 Respiratory Rate 18 11/11/19 06:51 Blood Pressure 99/68 11/11/19 06:51 O2 Sat by Pulse Oximetry (%) Pertinent Admission Physical Exam Findings: alcohol withdrawal Laboratory Last Values WBC 2.2 K/mm3 (4.0-10.0) L 11/09/19 07:45 RBC 3.72 M/mm3 (3.60-5.2) 11/09/19 07:45 Hgb 12.6 GM/dL (10.7-15.3) 11/09/19 07:45 Hct 37.6 % (32.4-45.2) 11/09/19 07:45 MCV 101.1 fl (80-96) H 11/09/19 07:45 MCH 33.9 pg (25.7-33.7) H 11/09/19 07:45 MCHC 33.5 g/dl (32.0-36.0) 11/09/19 07:45 RDW 14.2 % (11.6-15.6) 11/09/19 07:45 Plt Count 102 K/MM3 (134-434) L 11/09/19 07:45 MPV 10.1 fl (7.5-11.1) 11/09/19 07:45 Sodium 140 mmol/L (136-145) 11/07/19 10:11 Potassium 3.8 mmol/L (3.5-5.1) 11/07/19 10:11 Chloride 106 mmol/L (98-107) 11/07/19 10:11 Carbon Dioxide 27 mmol/L (21-32) 11/07/19 10:11 Anion Gap 7 MMOL/L (8-16) L 11/07/19 10:11 BUN 9.5 mg/dL (7-18) 11/07/19 10:11 Creatinine 0.9 mg/dL (0.55-1.3) 11/07/19 10:11 Est GFR (CKD-EPI)AfAm 87.63 11/07/19 10:11 Est GFR (CKD-EPI)NonAf 75.61 11/07/19 10:11 Random Glucose 84 mg/dL (74-106) 11/07/19 10:11 Calcium 8.3 mg/dL (8.5-10.1) L 11/07/19 10:11 Total Bilirubin 0.2 mg/dL (0.2-1) 11/07/19 10:11 AST 125 U/L (15-37) H 11/07/19 10:11 ALT 89 U/L (13-61) H 11/07/19 10:11 Alkaline Phosphatase 86 U/L (45-117) 11/07/19 10:11 Total Protein 7.4 g/dl (6.4-8.2) 11/07/19 10:11 Albumin 4.0 g/dl (3.4-5.0) 11/07/19 10:11 POC Urine HCG, Qual Negative 11/07/19 10:13 RPR Titer Nonreactive (NONREACTIVE) 11/07/19 10:11 HIV 1&2 Antibody Screen Negative 11/07/19 10:11 HIV P24 Antigen Negative 11/07/19 10:11 lab noted low wbc and ast elevation patient agrees to bringing lab report to [facility] for follow up - Treatment Hospital Course: Detox Protocol Followed, Detoxed Safely, Responded well, Discharged Condition Good, Rehab Referral Accepted Patient has Accepted a Rehab Referral to: [facility] - Medication Discharge Medications: Ambulatory Orders traZODone HCL [Trazodone HCl] 200 mg PO HS 04/03/19 Albuterol Sulfate Inhaler - [Ventolin HFA Inhaler -] 1 - 2 inh PO QID #1 inhaler 04/12/19 Diphenhydramine [Benadryl Capsule -] 50 mg PO BID PRN 07/06/19 Gabapentin [Neurontin] 600 mg PO BID 07/06/19 Ibuprofen 1 tab PO BID PRN #10 tablet MDD 2 07/17/19 Multivitamin [One-Daily Multi-Vitamin] 1 tab PO DAILY 07/17/19 Quetiapine Fumarate [Seroquel -] 300 mg PO HS 07/17/19 [place] Carbonate [Eskalith -] 600 mg PO BID 08/10/19 Docusate Sodium [Colace -] 100 mg PO TID #90 capsule 08/20/19 Clotrimazole [Clotrimazole AF] 1 applic TP BID #28 cream..g. 10/30/19 Buprenorphine/Naloxone [Suboxone 8Mg/2Mg Sl Film -] 1 each SL BID 11/07/19 - Diagnosis (1) Weight loss Status: Acute (2) Alcohol dependence with uncomplicated intoxication Status: Acute (3) Asthma Status: Chronic Qualifiers: Asthma severity: mild Asthma persistence: intermittent Asthma complication type: with status asthmaticus Qualified Code(s): J45.22 - Mild intermittent asthma with status asthmaticus (4) GERD (gastroesophageal reflux disease) Status: Chronic Qualifiers: Esophagitis presence: without esophagitis Qualified Code(s): K21.9 - Gastro -esophageal reflux disease without esophagitis (5) Hepatitis C Status: Chronic Qualifiers: Viral hepatitis chronicity: chronic Hepatic coma status: without hepatic coma Qualified Code(s): B18.2 - Chronic viral hepatitis C (6) Nicotine dependence Status: Acute Qualifiers: Nicotine product type: cigarettes Substance use status: in withdrawal Qualified Code(s): F17.213 - Nicotine dependence, cigarettes, with withdrawal (7) Substance induced mood disorder Status: Suspected - AMA Did Patient Leave Against Medical Advice: No CIWA Score - CIWA Score Nausea/Vomitin-No Nausea/No Vomiting Muscle Tremors: None Anxiety: 2 Agitation: 0-Normal Activity Paroxysmal Sweats: 1-Minimal Palms Moist Orientation: 0-Oriented Tacttile Disturbances: 0-None Auditory Disturbances: 0-None Visual Disturbances: 0-None Headache: 1-Very Mild CIWA-Ar Total Score: 4
[2019-11-11 09:19] VITALS: BP 97/74; PULSE 90
[2019-11-11] MEDS ORDERED: METHADONE HCL 10 MG TABLET (FOR DETOX USE ONLY) PO ONE (10:00)
[2019-11-12] MEDS ORDERED: chlordiazePOXIDE HCL 10 MG CAPSULE PO ONE (05:00)
[2019-11-12] MEDS ORDERED: METHADONE HCL 5 MG TABLET (FOR DETOX USE ONLY) PO ONE (06:00)
== END 2019-11-11 10:04 | disposition home or self-care (01) | DRG 773 ==
LOC: YASAS 08:04 → Y3N 09:50
PROVIDERS: ADMIT Allergy & Immunology; ATTEND Allergy & Immunology
PROC: HZ2ZZZZ Detoxification Services for Substance Abuse Treatment (ICD-10-PCS; principal; 2019-11-07)
DX: F10.230 Alcohol dependence with withdrawal, uncomplicated (principal); F11.23 Opioid dependence with withdrawal; F12.20 Cannabis dependence, uncomplicated; F17.213 Nicotine dependence, cigarettes, with withdrawal; F25.0 Schizoaffective disorder, bipolar type; F19.24 Other psychoactive substance dependence with psychoactive substance-induced mood disorder; F43.10 Post-traumatic stress disorder, unspecified; J45.22 Mild intermittent asthma with status asthmaticus; G47.00 Insomnia, unspecified; B18.2 Chronic viral hepatitis C; R63.4 Abnormal weight loss; Z68.28 Body mass index [BMI] 28.0-28.9, adult; Z86.19 Personal history of other infectious and parasitic diseases; Z88.0 Allergy status to penicillin; Z88.2 Allergy status to sulfonamides; Z86.2 Personal history of diseases of the blood and blood-forming organs and certain disorders involving the immune mechanism
CPT/HCPCS: 36415; 80053; 81025; 85027; 86593; 87389

== ENCOUNTER 2019-12-29 21:05 | Emergency (ER) | payer OTHER ==
[2019-12-29 21:19] VITALS: BP 129/91; PULSE 114; TEMP 98.2; BMI 28.7
[2019-12-29] MEDS ORDERED: TETRACAINE 0.5% HCL 0.6ML DROPPER.BOTTLE OU ONE (22:11)
[2019-12-29] MEDS ORDERED: FLUORESCEIN NA 1 EA STRIP OU ONE (22:11)
[2019-12-29] MEDS ORDERED: FLUORESCEIN NA 1 EA STRIP ONE (22:12)
[2019-12-29] MEDS ORDERED: ERYTHROMYCIN 0.5% OPHTHALMIC OINTMENT 3.5 GM TUBE OS ONE (22:19)
[2019-12-29] MEDS ORDERED: ERYTHROMYCIN 0.5% OPHTHALMIC OINTMENT 3.5 GM TUBE ONE (22:21)
--- NOTE | 2019-12-29 22:27 | PDOC ---
History of Present Illness - General Chief Complaint: Eye Problem Stated Complaint: UNABLE TO OPEN EYES SINCE YESTERDAY Time Seen by Provider: 12/29/19 21:57 History Source: Patient Exam Limitations: No Limitations - History of Present Illness Initial Comments: 12/29/19 22:36 HISTORY OF PRESENT ILLNESS: 49-year-old woman presents emergency department for evaluation of left eye pain after sleeping with cosmetic contacts. Patient reports she purchased a contacts at a local store and accidentally fell asleep while wearing them. When she woke up, she noted severe pain to her left eye and thick yellow discharge present. She reports the discharge is so thick crusted over her lashes and she had a difficult time opening her eyes. Patient states she removed her contacts at home which took her more than 1 hour to remove secondary to pain. She denies any blurry vision. No recent travel or sick contacts. PAST MEDICAL HISTORY: Schizophrenia, bipolar disorder SURGICAL HISTORY: Denies ALLERGIES: Reglan, Compazine, Haldol, Remeron REVIEW OF SYSTEMS General/Constitutional: Denies fever or chills. Denies weakness, weight change. HEENT: See HPI Cardiovascular: Denies chest pain or shortness of breath. Respiratory: Denies cough, wheezing, or hemoptysis. Gastrointestinal: Denies nausea, vomiting, diarrhea or constipation. Denies rectal bleeding. Genitourinary: Denies dysuria, frequency, or change in urination. Musculoskeletal: Denies joint or muscle swelling or pain. Denies neck or back pain. Skin and breasts: Denies rash or easy bruising. Neurologic: Denies headache, vertigo, loss of consciousness, or loss of sensation. Psychiatric: Denies depression or anxiety. Endocrine: Denies increased thirst. Denies abnormal weight change. Hematologic/Lymphatic: Denies anemia, easy bleeding, or history of blood clots. Allergic/Immunologic: Denies hives or skin allergy. Denies latex allergy. PHYSICAL EXAM General Appearance: Well-appearing, appropriately dressed. No apparent distress , no intoxication. HEENT: EOMI, PERRLA, normal ENT inspection, normal voice, TMs normal, pharynx normal. No conjunctival pallor. No photophobia, scleral icterus. Neck: Supple. Trachea midline. No tenderness, rigidity, carotid bruit, stridor , lymphadenopathy, or thyromegaly. Conjunctival erythema present with scleral injection extending to the limbus. Thick yellow discharge present which is crusted onto her left eyelashes. No abnormal fluorescein uptake. Neurologic: zipper repairer II-XII intact. Fully oriented, alert. Appropriate mood/affect. Motor strength 5/5. No appreciable EOM palsy, facial droop or sensory deficit. Past History - Past Medical History Allergies/Adverse Reactions: Allergies Allergy/AdvReac Type Severity Reaction Status Date / Time metoclopramide HCl Allergy Severe dystonic Verified 12/29/19 21:19 [From Reglan] reaction prochlorperazine maleate Allergy Severe DYSTONIA Verified 12/29/19 21:19 [From Compazine] haloperidol [From Haldol] Allergy Verified 12/29/19 21:19 mirtazapine [From Remeron] AdvReac Severe Difficulty Verified 12/29/19 21:19 Breathing Home Medications: Ambulatory Orders traZODone HCL [Trazodone HCl] 200 mg PO HS 04/03/19 Albuterol Sulfate Inhaler - [Ventolin HFA Inhaler -] 1 - 2 inh PO QID #1 inhaler 04/12/19 Diphenhydramine [Benadryl Capsule -] 50 mg PO BID PRN 07/06/19 Gabapentin [Neurontin] 600 mg PO BID 07/06/19 Ibuprofen 1 tab PO BID PRN #10 tablet MDD 2 07/17/19 Multivitamin [One-Daily Multi-Vitamin] 1 tab PO DAILY 07/17/19 Quetiapine Fumarate [Seroquel -] 300 mg PO HS 07/17/19 [place] Carbonate [Eskalith -] 600 mg PO BID 08/10/19 Docusate Sodium [Colace -] 100 mg PO TID #90 capsule 08/20/19 Clotrimazole [Clotrimazole AF] 1 applic TP BID #28 cream..g. 10/30/19 Buprenorphine/Naloxone [Suboxone 8Mg/2Mg Sl Film -] 1 each SL BID #16 film MDD 2 11/12/19 Naloxone HCl [Narcan] 4 mg NS ONCE PRN #1 spray 11/12/19 Peg 400/Hypromellose/Glycerin [Eye Drop Tears] 2 drop OP QID #1 bottle 11/12/19 Ammonium Lactate Lotion [Lac-Hydrin 12] 1 applic TP ASDIR 30 Days #1 bottle 05/19 Hydrocortisone 1% Cream [Hytone 1% Cream -] 1 applic TP BID #1 tube 12/07/19 Erythromycin 0.5% Eye Ointment [Erythromycin 0.5% Eye Ointment -] 1 applic OS QID 5 Days #1 tube 12/29/19 Anemia: Yes (as a teen, had iron and transfusions) Asthma: Yes Cancer: No Cardiac Disorders: No CVA: No COPD: No CHF: No Dementia: No Diabetes: No GI Disorders: Yes (Hx of GERD) Disorders: No HTN: No Hypercholesterolemia: No Kidney Stones: No Liver Disease: Yes (hepatitis C, being treated with epclusa) Psychiatric Problems: Yes (PTSD, bi-polar, depression, pschizophrenia) Seizures: Yes (etoh related last was "years ago") Thyroid Disease: No - Surgical History Abdominal Surgery: No Appendectomy: No Cardiac Surgery: No Cholecystectomy: No Lung Surgery: No Neurologic Surgery: No Orthopedic Surgery: No - Reproductive History (#): 13 Para: 11 PID: No - Immunization History TDAP Vaccination: Yes Immunization Up to Date: No - Psycho Social/Smoking Cessation Hx Smoking History: Current every day smoker Have you smoked in the past 12 months: Yes Number of Cigarettes Smoked Daily: 5 Cigars Per Day: 0 Information on smoking cessation initiated: No 'Breaking Loose' booklet given: 11/07/19 Hx Alcohol Use: No Drug/Substance Use Hx: No Substance Use Type: Heroin Hx Substance Use Treatment: Yes *Physical Exam - Vital Signs Last Vital Signs Temp Pulse Resp BP Pulse Ox 98.2 F 114 H 17 129/91 100 12/29/19 21:14 12/29/19 21:14 12/29/19 21:14 12/29/19 21:14 12/29/19 21:14 ED Treatment Course - Medications Given in the ED: ED Medications Discontinued Medications Generic Name Dose Route Start Last Admin Trade Name Freq PRN Reason Stop Dose Admin Fluorescein Sodium 2 ea 12/29/19 22:11 12/29/19 22:13 Fluorets - OU 12/29/19 22:12 2 ea ONCE ONE Administration Tetracaine HCl 1 drop 12/29/19 22:11 12/29/19 22:13 Tetravisc 0.5% Eye Drops - OU 12/29/19 22:12 1 drop ONCE ONE Administration Medical Decision Making - Medical Decision Making 12/29/19 22:34 A/P: 49-year-old woman for evaluation of left eye pain after sleeping with cosmetic contacts EYE EXAMINATION: Visual acuity: 20/20 in the left eye, 20/20 in the right eye, near, uncorrected The lid and lashes are normal. Extraocular movements are intact. No flattening of the anterior chamber. No hyphema noted. No pus present in the anterior chamber. The conjunctiva is erythematous with scleral injection and yellow discharge. Discharge is crusted onto eyelashes. The corneal surface is normal post tetracaine and fluorescein. There is no corneal abrasion or foreign body. There is no abnormal fluorescein uptake. The pupils are equal, round and reactive to light. The fundus shows normal vessels and normal discs. Erythromycin ointment Discharge home with ophthalmology follow-up and prescription for erythromycin. I discussed the physical exam findings, ancillary test results and final diagnoses with the patient. I answered all of the patient's questions. The patient was satisfied with the care received and felt comfortable with the discharge plan and treatment plan. The patient will call their primary care physician within 24 hours to arrange follow-up and will return to the Emergency Department with any new, persistent or worsening symptoms. Portions of this note have been documented using voice recognition software. As a result, errors may occur in the newspaper columnist process. Effort has been made to correct all grammatical and newspaper columnist error, but some may have been missed which may produce sporadic inaccurate newspaper columnist or nonsensical phrases. 12/29/19 22:52 Discharge - Discharge Information Problems reviewed: Yes Clinical Impression/Diagnosis: Conjunctivitis Qualifiers: Conjunctivitis type: acute Acute conjunctivitis type: unspecified Laterality: left Qualified Code(s): H10.32 - Unspecified acute conjunctivitis, left eye Condition: Stable Disposition: HOME - Admission No - Additional Discharge Information Prescriptions: Erythromycin 0.5% Eye Ointment [Erythromycin 0.5% Eye Ointment -] 1 applic OS QID 5 Days #1 tube - Follow up/Referral Referrals: Michael Nelson MD [Staff Physician] - - Patient Discharge Instructions Additional Instructions: Rest, avoid rubbing eyes Wash hands frequently as this is very contagious Wash hands, use eye drops as directed, wash hands after use Do not share eye ointment with other person to may become infected as this will infect them Erthromycin ointment to affected eye 4 times a day for 5 days Avoid contact with others until redness and discharge is gone from eyes. Followup with ophthalmology Tuesday. - Post Discharge Activity
== END 2019-12-29 22:49 | disposition home or self-care (01) ==
LOC: JERFT 21:05
PROC: 4A07X0Z Measurement of Visual Acuity, External Approach (ICD-10-PCS; principal; 2019-12-29)
DX: H10.32 Unspecified acute conjunctivitis, left eye (principal); Z97.3 Presence of spectacles and contact lenses; B18.2 Chronic viral hepatitis C; F17.210 Nicotine dependence, cigarettes, uncomplicated; Z86.2 Personal history of diseases of the blood and blood-forming organs and certain disorders involving the immune mechanism; Z87.19 Personal history of other diseases of the digestive system; Z86.59 Personal history of other mental and behavioral disorders
CPT/HCPCS: 99173; 99283-25

== ENCOUNTER 2020-04-23 13:05 | Inpatient (IN) | payer OTHER ==
--- NOTE | 2020-04-23 13:42 | BHS.RME ---
Substance Use & Tx History - Substance Use History Alcohol Substance amount: 2cans beers Frequency of use: Daily Substance route: Oral Date of Last Use: 04/23/20 Heroin Substance amount: 4 bags Frequency of use: Daily Substance route: Inhalation (ex: sniffing or snorting) Date of Last Use: 04/23/20 Nicotine Substance amount: 4 ciggs Frequency of use: Daily Date of Last Use: 04/24/20 - Last Treatment Treatment type: Substance Use Disorder ([facility]) Where was last treatment: Detox Physical/Psych/Mental Status - Behavior General Behavior: Increased activity (restlessness, agitation) Eye Contact: Normal - Cooperativeness Cooperativeness: Cooperative - Thinking Thought Processes: Tight, Logical, Goal Directed - Physical Health Problems Is patient presently having any pain?: No Does patient presently have any injuries (include location): No Does patient currently have a fever: No Is patient : No CIWA Nausea/Vomitin-Mild Nausea/No Vomiting Muscle Tremors: 4-Moderate,w/Arms Extend Anxiety: 5 Agitation: 4-Moderately Restless Paroxysmal Sweats: 1-Minimal Palms Moist Orientation: 0-Oriented Tacttile Disturbances: 0-None Auditory Disturbances: 0-None Visual Disturbances: 0-None Headache: 0-None Present CIWA-Ar Total Score: 15
--- NOTE | 2020-04-23 15:11 | HP ---
COWS - Scale Resting Pulse: 2= OK 101-120 Sweatin=Flushed/Facial Moisture Restless Observation: 1= Difficult to Sit Still Pupil Size: 1= Pupils >than Normal Bone or Joint Aches: 1= Mild Discomfort Runny Nose/ Eye Tearin= Nasal Congestion GI Upset > 30mins: 2= Nausea/Diarrhea Tremor Observation: 2= Slight Tremor Visible Yawning Observation: 0= None Anxiety or Irritability: 1=Feels Anxious/Irritable Goose Flesh Skin: 0=Smooth Skin COWS Score: 13 CIWA Score Nausea/Vomitin-Mild Nausea/No Vomiting Muscle Tremors: 4-Moderate,w/Arms Extend Anxiety: 5 Agitation: 4-Moderately Restless Paroxysmal Sweats: 1-Minimal Palms Moist Orientation: 0-Oriented Tacttile Disturbances: 0-None Auditory Disturbances: 0-None Visual Disturbances: 0-None Headache: 0-None Present CIWA-Ar Total Score: 15 - Admission Criteria [facility] Guidelines: Admission for Medically Managed Detox: Requires at least one of the followin. CIWA greater than 12 2. Seizures within the past 24 hours 3. Delirium tremens within the past 24 hours 4. Hallucinations within the past 24 hours 5. Acute intervention needed for co occurring medical disorder 6. Acute intervention needed for co occurring psychiatric disorder 7. Severe withdrawal that cannot be handled at a lower level of care (continued vomiting, continued diarrhea, abnormal vital signs) requiring intravenous medication and/or fluids 8. Admitting History and Physical - Admission Chief Complaint: Ms. Mao is a 49 yo woman who presents to [facility] for detox from alcohol and heroin. History of Present Illness: Ms. Mao is a 49 yo woman who presents to [facility] for detox from alcohol and heroin. This is one of many admissions to this facility. She was last here on 04/10/20 and referred out as she had a history of leaving [place] and breaking a contract. She was admitted to [facility] early in March with vomitting and was treated with a Librium detox protocol. 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 chronic pancreatitis) Hepatobiliary: Yes: Hepatitis C (Untreated) ...LMP: 10/31/14 Heme/Onc: Yes: Anemia Infectious Disease: Yes: STD's (just treated in ER for gonorrhea with injection and pills) Psych: Yes: Addictions (Alcohol, Marijuana), Bipolar - Past Surgical History Past Surgical History: Yes: None, - Smoking History Smoking history: Current every day smoker Have you smoked in the past 12 months: Yes Aproximately how many cigarettes per day: 4 - Alcohol/Substance Use Hx Alcohol Use: Yes Number of Drinks Daily: 4 (4 pints a day) History of Substance Use: reports: Heroin - Social History ADL: Independent Occupation: Unemployed History of Recent Travel: No Admission [facility] Allergies/Adverse Reactions: Allergies Allergy/AdvReac Type Severity Reaction Status Date / Time metoclopramide HCl Allergy Severe dystonic Verified 04/01/20 07:36 [From Reglan] reaction prochlorperazine maleate Allergy Severe DYSTONIA Verified 04/01/20 07:36 [From Compazine] haloperidol [From Haldol] Allergy Verified 04/01/20 07:36 mirtazapine [From Remeron] AdvReac Severe Difficulty Verified 04/01/20 07:36 Breathing Exam Limitations: No Limitations - Ebola screening Have you traveled outside of the country in the last 21 days: No Have you been sick,other than usual withdrawal symptoms: No Do you have a fever: No - Review of Systems Constitutional: Unintentional Wgt. Loss (lost 16 lbs in the past one month) EENT: reports: Blurred Vision (has glasses with her) Respiratory: reports: No Symptoms reported Cardiac: reports: No Symptoms Reported GI: reports: Nausea : reports: No Symptoms Reported Musculoskeletal: reports: Back Pain, Joint Pain, Muscle Pain Integumentary: reports: Other (right elbow, righ tknee, fell one mos ago, had purulent discharge from right knee) Neuro: reports: Headache Endocrine: reports: No Symptoms Reported Hematology: reports: No Symptoms Reported Psychiatric: reports: Anxious, Depressed Patient History - Patient Medical History Hx Anemia: Yes (as a teen, had iron and transfusions) Hx Asthma: Yes Hx Chronic Obstructive Pulmonary Disease (COPD): No Hx Cancer: No Hx Cardiac Disorders: No Hx Congestive Heart Failure: No Hx Hypertension: Yes Hx Hypercholesterolemia: No Hx Pacemaker: No HX Cerebrovascular Accident: No Hx Seizures: No Hx Dementia: No Hx Diabetes: No Hx Gastrointestinal Disorders: No Hx Liver Disease: Yes (hepatitis C) Hx Genitourinary Disorders: No Hx Sexually Transmitted Disorders: No Hx Renal Disease (ESRD): No Hx Thyroid Disease: No Hx Human Immunodeficiency Virus (HIV): No (last 01/16 negative) Hx Hepatitis C: Yes Hx Depression: Yes Hx Suicide Attempt: No Hx Bipolar Disorder: Yes (no med,non compliance) Hx Schizophrenia: Yes - Patient Surgical History Past Surgical History: No Hx Neurologic Surgery: No Hx Cataract Extraction: No Hx Cardiac Surgery: No Hx Lung Surgery: No Hx Breast Surgery: No Hx Breast Biopsy: No Hx Abdominal Surgery: No Hx Appendectomy: No Hx Cholecystectomy: No Hx Genitourinary Surgery: No Hx Section: Yes Hx Orthopedic Surgery: No Hx Hysterectomy: No Other Surgical History: age 9 - abscess/tumor, benign per pt Anesthesia Reaction: No - PPD History Date: 03/12/20 Results: 0mm - Reproductive History Last Menstrual Period: 10/31/14 - Smoking Cessation Smoking history: Current every day smoker Have you smoked in the past 12 months: Yes Aproximately how many cigarettes per day: 4 Cigars Per Day: 0 Hx Chewing Tobacco Use: No Initiated information on smoking cessation: Yes 'Breaking Loose' booklet given: 04/23/20 Admission Physical Exam S - Physical General Appearance: Yes: Nourished, Mild Distress, Anxious HEENTM: Yes: EOMI, Hearing grossly Normal, Normocephalic, Normal Voice, Other (multiple piercings upper and lower lip and left nostril, bilateral ears) Respiratory: Yes: Lungs Clear, Normal Breath Sounds, No Accessory Muscle Use Neck: Yes: Supple, Trachea in good position Breast: Yes: Breast Exam Deferred Cardiology: Yes: Regular Rhythm, Regular Rate, S1, S2 Abdominal: Yes: Normal Bowel Sounds, Non Tender, Flat, Soft Back: Yes: Normal Inspection Musculoskeletal: Yes: full range of Motion, Gait Steady Extremities: Yes: Within Normal Limits Neurological: Yes: Within Normal Limits Integumentary: Yes: Other (erythematous right elbow and right knee, warm to touch, tender each ~1" diameter) - Diagnostic (1) Alcohol dependence with uncomplicated intoxication Current Visit: Yes Status: Acute (2) Opioid dependence Current Visit: Yes Status: Acute Qualifiers: Substance use status: uncomplicated Qualified Code(s): F11.20 - Opioid dependence, uncomplicated Comment: cont f/u mmtp, denies ivdu "for years". Cleared for Admission [facility] - Detox or Rehab [facility] Level of Care: Medically Managed Detox Regimen/Protocol: Methadone/Librium Breathalyzer - Breathalyzer Breathalyzer: 0 Urine Drug Screen - Test Device Lot number: [id number] Expiration date: 06/30/21 - Control Is test valid?: Yes - Results Drug screen NEGATIVE: No Urine drug screen results: FEN-Fentanyl, MOP-Opiates, BZO-Benzodiazepines Inpatient Rehab Admission - Rehab Decision to Admit Inpatient rehab admission?: No
[2020-04-23] MEDS ORDERED: ALBUTEROL SO4 HFA INHALER IH PRN (15:40)
[2020-04-23] MEDS ORDERED: NICOTINE POLACRILEX 2 MG GUM BUC PRN (15:46)
[2020-04-23] MEDS ORDERED: BISMUTH SUBSALICYLATE 524 MG/30 ML UD PO PRN (15:46)
[2020-04-23] MEDS ORDERED: cloNIDine HCL 0.1 MG TABLET PO PRN (15:46)
[2020-04-23] MEDS ORDERED: ONDANSETRON *ODT* 4 MG TABLET SL PRN (15:46)
[2020-04-23] MEDS ORDERED: METHADONE HCL 10 MG TABLET (FOR DETOX USE ONLY) PO ONE (15:46)
[2020-04-23] MEDS ORDERED: MAGNESIUM HYDROX 2400MG/30ML ORAL SUSPENSION 30 ML CUP PO PRN (15:46)
[2020-04-23] MEDS ORDERED: METHOCARBAMOL 500 MG TABLET PO PRN (15:46)
[2020-04-23] MEDS ORDERED: chlordiazePOXIDE HCL 25 MG CAPSULE PO PRN (15:46)
[2020-04-23] MEDS ORDERED: ACETAMINOPHEN 325 MG TABLET (FP) PO PRN (15:46)
[2020-04-23] MEDS ORDERED: MAGNESIUM CITRATE 300 ML BOTTLE PO PRN (15:46)
[2020-04-23] MEDS ORDERED: MENTHOL/PHENOL 1 EACH UD MM PRN (15:46)
[2020-04-23 16:31] VITALS: BMI 26.2
[2020-04-23 18:13] LABS: HEMATOCRIT 39.2 % (32.4-45.2); HEMOGLOBIN 13.2 GM/dL (10.7-15.3); MCH 33.8 pg (25.7-33.7); MCHC 33.5 g/dl (32.0-36.0); MEAN CELL VOLUME 100.8 fl (80-96); MEAN PLT VOLUME 11.3 fl (7.5-11.1); PLATELET COUNT 194 K/MM3 (134-434); RBC 3.89 M/mm3 (3.60-5.2); RDW 14.6 % (11.6-15.6); WHITE BLOOD COUNT 4.8 K/mm3 (4.0-10.0)
[2020-04-23 18:24] LABS: ALBUMIN 3.9 g/dl (3.4-5.0); BILIRUBIN,TOTAL 0.3 mg/dL (0.2-1); CALCIUM 9.3 mg/dL (8.5-10.1); CREATININE 0.9 mg/dL (0.55-1.3); POTASSIUM 3.6 mmol/L (3.5-5.1); TOT PROT 7.8 g/dl (6.4-8.2)
[2020-04-23] MEDS: chlordiazePOXIDE HCL 25 MG CAPSULE PO SCH ×2 (18:42→22:36)
[2020-04-23] MEDS: ACETAMINOPHEN 325 MG TABLET (FP) PO PRN (18:43)
[2020-04-23] MEDS: hydrOXYzine PAMOATE 25 MG CAPSULE (FP) PO SCH ×2 (18:43→22:36)
[2020-04-23] MEDS: PRENATAL VITAMINS W/ FOLIC ACID TABLET (FP) PO SCH (18:45)
[2020-04-23] MEDS: NICOTINE 7 MG/24 HOURS TOPICAL PATCH TD SCH (18:45)
[2020-04-23] MEDS ORDERED: BACITRACIN 15 GM TUBE TOPICAL OINTMENT TP SCH (22:00)
[2020-04-23] MEDS: AMOXICILLIN 250 MG CAPSULE PO SCH ×2 (22:36)
[2020-04-23] MEDS: IBUPROFEN 400 MG TABLET (FP) PO PRN (22:36)
[2020-04-23] MEDS: THIAMINE HCL 100 MG TABLET (FP) PO SCH (22:37)
[2020-04-23] MEDS: MELATONIN 5 MG TABLETS PO SCH (22:37)
[2020-04-23] MEDS: BACITRACIN 0.9 GM PACKET TP SCH (22:50)
[2020-04-24] MEDS: hydrOXYzine PAMOATE 25 MG CAPSULE (FP) PO SCH ×5 (05:43→22:20)
[2020-04-24] MEDS: AMOXICILLIN 250 MG CAPSULE PO SCH ×3 (05:43→22:19)
[2020-04-24] MEDS: chlordiazePOXIDE HCL 25 MG CAPSULE PO SCH ×4 (05:43→22:19)
[2020-04-24] MEDS ORDERED: METHADONE HCL 10 MG TABLET (FOR DETOX USE ONLY) ONE (09:50)
[2020-04-24] MEDS ORDERED: METHADONE HCL 5 MG TABLET (FOR DETOX USE ONLY) ONE (09:51)
[2020-04-24] MEDS ORDERED: METHADONE (DETOX) 20 MG, METHADONE (DETOX) 5 MG PO ONE (10:00)
[2020-04-24] MEDS: PRENATAL VITAMINS W/ FOLIC ACID TABLET (FP) PO SCH (10:20)
[2020-04-24] MEDS: BACITRACIN 0.9 GM PACKET TP SCH ×2 (10:20→22:19)
[2020-04-24] MEDS: NICOTINE 7 MG/24 HOURS TOPICAL PATCH TD SCH (10:21)
[2020-04-24] MEDS: IBUPROFEN 400 MG TABLET (FP) PO PRN ×2 (10:26→19:11)
--- NOTE | 2020-04-24 10:55 | PN ---
[facility] CIWA - CIWA Score Nausea/Vomitin-Mild Nausea/No Vomiting Muscle Tremors: 2 Anxiety: 3 Agitation: 1-Slight > Activity Paroxysmal Sweats: 1-Minimal Palms Moist Orientation: 0-Oriented Tacttile Disturbances: 1-Very Mild Itch/Numbness Auditory Disturbances: 0-None Visual Disturbances: 2-Mild Sensitivity Headache: 1-Very Mild CIWA-Ar Total Score: 12 S COWS - Scale Resting Pulse: 0= [place] 80 or Below Sweatin= Chills/Flushing Restless Observation: 0= Sits Still Pupil Size: 1= Pupils >than Normal Bone or Joint Aches: 1= Mild Discomfort Runny Nose/ Eye Tearin= Nasal Congestion GI Upset > 30mins: 2= Nausea/Diarrhea Tremor Observation of Outstretched Hands: 2= Slight Tremor Visible Yawning Observation: 0= None Anxiety or Irritability: 2=Irritable/Anxious Goose Flesh Skin: 0=Smooth Skin COWS Score: 10 S Progress Note (SOAP) Subjective: 49 years old female admitted on 04/23/20 for alcohol and opiate withdrawal sx management treating with librium and methadone detox regiments discontinue robaxin resume home medication flexeril report right ear pain Vital Signs - 24 hr 04/23/20 04/23/20 04/23/20 16:06 16:43 20:58 Temperature 98.8 F 96.9 F L 97.1 F L Pulse Rate 113 H 80 70 Respiratory 16 18 16 Rate Blood Pressure 131/97 103/74 104/77 O2 Sat by Pulse 96 98 Oximetry (%) 04/24/20 04/24/20 04/24/20 00:35 06:18 09:00 Temperature 97.3 F L 97.3 F L Pulse Rate 69 65 Respiratory 18 18 18 Rate Blood Pressure 107/75 116/74 O2 Sat by Pulse 94 L Oximetry (%) denies hearing loss right ear skin intact, no bit raphael noted tragu, ben, and scaphoid fossa redness mastoid none tendernes negative ehmotympanic no ear effusion no otorrhea noted facial nerve VII intact denies trouble chewing swallowing regular food speech clearly coherently jaw open max tympanic membrane marked erythema otitis cortisporin 4 drops to right ear x 5 days Objective: 04/24/20 11:17 Vital Signs - 24 hr 04/23/20 04/23/20 04/23/20 16:06 16:43 20:58 Temperature 98.8 F 96.9 F L 97.1 F L Pulse Rate 113 H 80 70 Respiratory 16 18 16 Rate Blood Pressure 131/97 103/74 104/77 O2 Sat by Pulse 96 98 Oximetry (%) 04/24/20 04/24/20 04/24/20 00:35 06:18 09:00 Temperature 97.3 F L 97.3 F L Pulse Rate 69 65 Respiratory 18 18 18 Rate Blood Pressure 107/75 116/74 O2 Sat by Pulse 94 L Oximetry (%) Laboratory Tests 04/23/20 04/23/20 04/23/20 15:50 15:50 15:50 WBC 4.8 RBC 3.89 Hgb 13.2 Hct 39.2 MCV 100.8 H MCH 33.8 H MCHC 33.5 RDW 14.6 Plt Count 194 D MPV 11.3 H D Sodium 141 Potassium 3.6 Chloride 108 H Carbon Dioxide 23 Anion Gap 10 BUN 11.0 Creatinine 0.9 Est GFR (CKD-EPI)AfAm 87.63 Est GFR (CKD-EPI)NonAf 75.61 Random Glucose 95 Calcium 9.3 Total Bilirubin 0.3 AST 35 ALT 45 Alkaline Phosphatase 80 Total Protein 7.8 Albumin 3.9 Syphilis Serology Non-reactive lab noted Assessment: 04/24/20 11:23 alcohol and opiate withdrawal Plan: librium and methadone regiments
[2020-04-24] MEDS ORDERED: NEOMYCIN/COLISTIN/HC OTIC SUSP 5 ML BOTTLE AD SCH (11:09)
[2020-04-24] MEDS: CYCLOBENZAPRINE HCL 10 MG TABLET (FP) PO PRN (11:31)
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
[2020-04-24] MEDS: NEOMYCIN/POLYMYXN/HC OTIC SUSPENSION 10 ML BOTTLE AD SCH ×3 (12:29→22:32)
[2020-04-24] MEDS: MAG HYDROX/AL HYDROX/SIMETH 30 ML UNIT-DOSE CUP PO PRN (18:05)
[2020-04-24] MEDS: QUEtiapine FUMARATE 300 MG TABLET PO SCH (22:19)
[2020-04-24] MEDS: THIAMINE HCL 100 MG TABLET (FP) PO SCH (22:19)
[2020-04-24] MEDS: MELATONIN 5 MG TABLETS PO SCH (22:19)
[2020-04-25] MEDS: AMOXICILLIN 250 MG CAPSULE PO SCH ×3 (05:59→22:18)
[2020-04-25] MEDS: hydrOXYzine PAMOATE 25 MG CAPSULE (FP) PO SCH ×5 (05:59→22:18)
[2020-04-25] MEDS: chlordiazePOXIDE HCL 25 MG CAPSULE PO SCH ×4 (06:00→22:19)
[2020-04-25] MEDS: NEOMYCIN/POLYMYXN/HC OTIC SUSPENSION 10 ML BOTTLE AD SCH ×4 (06:00→23:21)
[2020-04-25] MEDS: ACETAMINOPHEN 325 MG TABLET (FP) PO PRN (06:01)
--- NOTE | 2020-04-25 09:51 | PN ---
S CIWA - CIWA Score Nausea/Vomitin-No Nausea/No Vomiting Muscle Tremors: 1-None Visible, but [place] Anxiety: 0-No Anxiety, at Ease Agitation: 1-Slight > Activity Paroxysmal Sweats: 1-Minimal Palms Moist Orientation: 0-Oriented Tacttile Disturbances: 0-None Auditory Disturbances: 0-None Visual Disturbances: 0-None Headache: 0-None Present CIWA-Ar Total Score: 3 S COWS - Scale Resting Pulse: 0= [place] 80 or Below Sweatin= Chills/Flushing Restless Observation: 1= Difficult to Sit Still Pupil Size: 0= Normal to Room Light Bone or Joint Aches: 1= Mild Discomfort Runny Nose/ Eye Tearin= None GI Upset > 30mins: 0= None Tremor Observation of Outstretched Hands: 0= None Yawning Observation: 0= None Anxiety or Irritability: 1=Feels Anxious/Irritable Goose Flesh Skin: 0=Smooth Skin COWS Score: 4 S Progress Note (SOAP) Subjective: Left posterior ear pain Objective: 04/25/20 09:46 Ms. Mao is a 49 yo woman who presents to [facility] for detox from alcohol and heroin. This is one of many admissions to this facility. She was last here on 04/10/20 and referred out as she had a history of leaving [facility] and breaking a contract. She was admitted to [facility] early in March with vomitting and was treated with a Librium detox protocol. PMH: HCV, treated, reoccurred, pancreatitis PSH: none Psych: bipolar, schizophrenia, PTSD SOC: own place Legal: none Substance: alcohol, nicotine, heroin PE gnl; WDWN, complaining of left posterior ear pain MS: in mild distress due to pain Motor: moves well Coord: nl Gait; nl Laboratory Tests 04/23/20 04/23/20 04/23/20 15:50 15:50 15:50 WBC 4.8 RBC 3.89 Hgb 13.2 Hct 39.2 MCV 100.8 H MCH 33.8 H MCHC 33.5 RDW 14.6 Plt Count 194 D MPV 11.3 H D Sodium 141 Potassium 3.6 Chloride 108 H Carbon Dioxide 23 Anion Gap 10 BUN 11.0 Creatinine 0.9 Est GFR (CKD-EPI)AfAm 87.63 Est GFR (CKD-EPI)NonAf 75.61 Random Glucose 95 Calcium 9.3 Total Bilirubin 0.3 AST 35 ALT 45 Alkaline Phosphatase 80 Total Protein 7.8 Albumin 3.9 Syphilis Serology Non-reactive HIV Ag/Ab Combo Qual 04/24/20 08:00 WBC RBC Hgb Hct MCV MCH MCHC RDW Plt Count MPV Sodium Potassium Chloride Carbon Dioxide Anion Gap BUN Creatinine Est GFR (CKD-EPI)AfAm Est GFR (CKD-EPI)NonAf Random Glucose Calcium Total Bilirubin AST ALT Alkaline Phosphatase Total Protein Albumin Syphilis Serology HIV Ag/Ab Combo Qual Negative Home Medication List Medication Instructions Recorded Confirmed Type traZODone HCL [Trazodone HCl] 200 mg PO HS 04/03/19 04/23/20 History Gabapentin [Neurontin] 600 mg PO BID 07/06/19 04/23/20 History Quetiapine Fumarate [Seroquel -] 300 mg PO HS 07/17/19 04/23/20 History Cyclobenzaprine HCl 10 mg PO DAILY PRN 04/01/20 04/23/20 History Active Medications Generic Name Dose Route Start Last Admin Trade Name Freq PRN Reason Stop Dose Admin Acetaminophen 650 mg 04/23/20 15:46 04/25/20 06:01 Tylenol - PO 650 mg Q6H PRN Administration PAIN LEVEL 4 - 6 Acetaminophen 650 mg 04/23/20 15:46 Tylenol - PO Q6H PRN FEVER Al Hydroxide/Mg Hydroxide 30 ml 04/23/20 15:46 04/24/20 18:05 Mylanta Oral Suspension - PO 30 ml Q6H PRN Administration DYSPEPSIA Albuterol Sulfate 1 puff 04/23/20 15:40 04/23/20 18:41 Ventolin Hfa Inhaler - IH 04/29/20 23:59 1 units QID PRN Administration ASTHMA Amoxicillin 250 mg 04/23/20 16:00 04/25/20 05:59 Amoxicillin - PO 04/30/20 23:59 250 mg TID GONZALEZ Administration Bacitracin 0.9 gm 04/23/20 22:00 04/24/20 22:19 Bacitracin - TP 0.9 gm BID GONZALEZ Administration Bismuth Subsalicylate 524 mg 04/23/20 15:46 Pepto-Bismol - PO Q1H PRN DIARRHEA Chlordiazepoxide HCl 25 mg 04/25/20 05:00 04/25/20 06:00 Librium - PO 04/25/20 23:01 25 mg Q1P-DVS GONZALEZ Administration Chlordiazepoxide HCl 25 mg 04/23/20 15:46 Librium - PO 04/25/20 23:59 Q4H PRN WITHDRAWAL(CONT SUBST) Chlordiazepoxide HCl 10 mg 04/26/20 05:00 Librium - PO 04/26/20 23:01 H2M-MVS GONZALEZ Chlordiazepoxide HCl 10 mg 04/27/20 05:00 Librium - PO 04/27/20 17:01 Q12H GONZALEZ Chlordiazepoxide HCl 10 mg 04/26/20 00:00 Librium - PO 04/27/20 00:00 Q4H PRN WITHDRAWAL(CONT SUBST) Chlordiazepoxide HCl 10 mg 04/28/20 05:00 Librium - PO 04/28/20 05:01 ONCE@0500 ONE Clonidine 0.1 mg 04/23/20 15:46 Catapres - PO 04/25/20 23:59 Q4H PRN Withdrawal Symptoms Cyclobenzaprine HCl 10 mg 04/23/20 15:40 04/24/20 11:31 Flexeril - PO 10 mg DAILY PRN Administration MUSCLE SPASMS Eucalyptus/Menthol/Phenol/Sorbitol 1 each 04/23/20 15:46 Cepastat Lozenge - MM 04/29/20 15:47 Q4H PRN SORE THROAT Hydroxyzine Pamoate 25 mg 04/23/20 18:00 04/25/20 05:59 Vistaril - PO 04/29/20 15:47 25 mg Q4HWA GONZALEZ Administration Ibuprofen 400 mg 04/23/20 15:46 04/24/20 19:11 Motrin - PO 400 mg Q6H PRN Administration PAIN LEVEL 1 - 3 Magnesium Citrate 300 ml 04/23/20 15:46 Citroma - PO Q48H PRN CONSTIPATION Magnesium Hydroxide 30 ml 04/23/20 15:46 Milk Of Magnesia - PO PRN PRN CONSTIPATION Melatonin 5 mg 04/23/20 22:00 04/24/20 22:19 Melatonin PO 5 mg HS GONZALEZ Administration Methadone HCl 5 mg 04/28/20 06:00 Dolophine - PO 04/28/20 06:01 ONCE@0600 ONE Methadone HCl 10 mg 04/27/20 10:00 Dolophine - PO 04/27/20 10:01 ONCE ONE Methadone HCl 20 mg 04/25/20 10:00 Dolophine - PO 04/25/20 10:01 ONCE ONE Methadone HCl 10 mg/ Methadone 15 mg 04/26/20 10:00 HCl 5 mg PO 04/26/20 10:01 ONCE ONE Neomycin/Polymyxin/Hydrocortisone 4 drop 04/24/20 11:30 04/25/20 06:00 Cortisporin Otic Suspenstion - AD 04/29/20 11:29 4 dropper Q6H GONZALEZ Administration Nicotine 7 mg 04/23/20 16:00 04/24/20 10:21 Nicoderm Patch - TD Not Given DAILY GONZALEZ Nicotine Polacrilex 2 mg 04/23/20 15:46 Nicorette Gum - BUC Q2H PRN NICOTINE REPLACEMENT RX Ondansetron HCl 4 mg 04/23/20 15:46 Zofran Odt - SL 04/29/20 15:50 Q12H PRN Nausea/Vomiting Multivit/Folic Acid/Iron 1 tab 04/23/20 16:00 04/24/20 10:20 Vitamins (Sjr) - PO 1 tab DAILY GONZALEZ Administration Quetiapine Fumarate 300 mg 04/24/20 22:00 04/24/20 22:19 Seroquel - PO 300 mg HS GONZALEZ Administration Thiamine HCl 100 mg 04/23/20 22:00 04/24/20 22:19 Vitamin B1 - PO 100 mg HS GONZALEZ Administration Vital Signs Temperature 96.8 F L 04/25/20 08:42 Pulse Rate 76 04/25/20 08:42 Respiratory Rate 16 04/25/20 08:42 Blood Pressure 98/64 04/25/20 08:42 O2 Sat by Pulse Oximetry (%) 97 04/25/20 05:54 Assessment: 04/25/20 09:48 1. Alcohol use disorder 2. Opioid use disorder 3. Left posterior ear pain, treated yesterday with otic drops for right ear pain 4. Nicotine dependance 04/25/20 09:51 04/25/20 09:53 Plan: 1. Librium detox protocol 2. Methadone, projected finish 04/28 3. Left posterior ear pain, red, will add otic drops for left ear and order diclofenac, pt states ibuprofen and Tylenol of no benefit. Ice pack to left posterior ear.
[2020-04-25] MEDS ORDERED: DICLOFENAC SODIUM 25 MG TABLET.DR PO PRN (09:57)
[2020-04-25] MEDS ORDERED: METHADONE HCL 10 MG TABLET (FOR DETOX USE ONLY) PO ONE (10:00)
[2020-04-25] MEDS ORDERED: DICLOFENAC SODIUM 25 MG TABLET.DR PO SCH (10:00)
[2020-04-25] MEDS: PRENATAL VITAMINS W/ FOLIC ACID TABLET (FP) PO SCH (10:12)
[2020-04-25] MEDS: BACITRACIN 0.9 GM PACKET TP SCH ×2 (10:12→22:20)
[2020-04-25] MEDS: NICOTINE 7 MG/24 HOURS TOPICAL PATCH TD SCH (10:13)
[2020-04-25] MEDS ORDERED: LIDOCAINE 5% TOPICAL PATCH TP ONE (10:30)
--- NOTE | 2020-04-25 13:17 | EKG ---
Test Reason : Blood Pressure : / mmHG Vent. Rate : 052 BPM Atrial Rate : 052 BPM P-R Int : 142 ms QRS Dur : 082 ms QT Int : 428 ms P-R-T Axes : 000 054 050 degrees QTc Int : 398 ms SINUS BRADYCARDIA SEPTAL INFARCT , AGE UNDETERMINED ABNORMAL ECG WHEN COMPARED WITH ECG OF 01-APR-2020 09:04, VENT. RATE HAS DECREASED BY 35 BPM QT HAS SHORTENED Confirmed by KELLY ADAIR MD ([id number]) on 04/25/2020 1:17:01 PM Referred By: Confirmed By:KELLY ADAIR MD
[2020-04-25] MEDS: CYCLOBENZAPRINE HCL 10 MG TABLET (FP) PO PRN (13:49)
[2020-04-25] MEDS: IBUPROFEN 400 MG TABLET (FP) PO PRN (16:49)
[2020-04-25] MEDS ORDERED: QUEtiapine FUMARATE 100 MG TABLET (FP) ONE (21:20)
[2020-04-25] MEDS: MELATONIN 5 MG TABLETS PO SCH (22:18)
[2020-04-25] MEDS: THIAMINE HCL 100 MG TABLET (FP) PO SCH (22:18)
[2020-04-25] MEDS: QUEtiapine FUMARATE 300 MG TABLET PO SCH (22:19)
[2020-04-25] MEDS: LIDOCAINE PATCH REMOVAL MC SCH (22:20)
[2020-04-26] MEDS ORDERED: chlordiazePOXIDE HCL 10 MG CAPSULE PO PRN
[2020-04-26] MEDS: chlordiazePOXIDE HCL 10 MG CAPSULE PO SCH ×4 (05:43→22:08)
[2020-04-26] MEDS: hydrOXYzine PAMOATE 25 MG CAPSULE (FP) PO SCH ×5 (05:43→22:07)
[2020-04-26] MEDS: AMOXICILLIN 250 MG CAPSULE PO SCH ×3 (05:43→22:08)
[2020-04-26] MEDS: NEOMYCIN/POLYMYXN/HC OTIC SUSPENSION 10 ML BOTTLE AD SCH ×3 (05:44→17:04)
[2020-04-26] MEDS ORDERED: METHADONE HCL 5 MG TABLET (FOR DETOX USE ONLY) ONE (08:58)
[2020-04-26] MEDS ORDERED: METHADONE HCL 10 MG TABLET (FOR DETOX USE ONLY) ONE (08:58)
[2020-04-26] MEDS ORDERED: METHADONE (DETOX) 10 MG, METHADONE (DETOX) 5 MG PO ONE (10:00)
[2020-04-26] MEDS: CYCLOBENZAPRINE HCL 10 MG TABLET (FP) PO PRN (10:08)
[2020-04-26] MEDS: PRENATAL VITAMINS W/ FOLIC ACID TABLET (FP) PO SCH (10:10)
[2020-04-26] MEDS: NICOTINE 7 MG/24 HOURS TOPICAL PATCH TD SCH (10:11)
[2020-04-26] MEDS: BACITRACIN 0.9 GM PACKET TP SCH ×2 (10:11→22:06)
[2020-04-26] MEDS: ACETAMINOPHEN 325 MG TABLET (FP) PO PRN (11:49)
--- NOTE | 2020-04-26 12:10 | PN ---
[facility] CIWA - CIWA Score Nausea/Vomitin-No Nausea/No Vomiting Muscle Tremors: None Anxiety: 3 Agitation: 0-Normal Activity Paroxysmal Sweats: 3 Orientation: 0-Oriented Tacttile Disturbances: 0-None Auditory Disturbances: 0-None Visual Disturbances: 0-None Headache: 1-Very Mild CIWA-Ar Total Score: 7 BHS COWS - Scale Resting Pulse: 2= [place] 101-120 Sweatin= Chills/Flushing Restless Observation: 1= Difficult to Sit Still Pupil Size: 0= Normal to Room Light Bone or Joint Aches: 1= Mild Discomfort Runny Nose/ Eye Tearin= None GI Upset > 30mins: 0= None Tremor Observation of Outstretched Hands: 0= None Yawning Observation: 1= 1-2x During Session Anxiety or Irritability: 1=Feels Anxious/Irritable Goose Flesh Skin: 0=Smooth Skin COWS Score: 7 S Progress Note (SOAP) Subjective: c/o anxiety, irritability, sweats, and muscle aches. Objective: 04/26/20 12:11 Vital Signs 04/26/20 04/26/20 06:19 09:00 Temperature 96.8 F L 96.8 F L Pulse Rate 74 102 H Respiratory 18 20 Rate Blood Pressure 99/66 92/66 O2 Sat by Pulse 95 Oximetry (%) Laboratory Last Values WBC 4.8 K/mm3 (4.0-10.0) 04/23/20 15:50 RBC 3.89 M/mm3 (3.60-5.2) 04/23/20 15:50 Hgb 13.2 GM/dL (10.7-15.3) 04/23/20 15:50 Hct 39.2 % (32.4-45.2) 04/23/20 15:50 MCV 100.8 fl (80-96) H 04/23/20 15:50 MCH 33.8 pg (25.7-33.7) H 04/23/20 15:50 MCHC 33.5 g/dl (32.0-36.0) 04/23/20 15:50 RDW 14.6 % (11.6-15.6) 04/23/20 15:50 Plt Count 194 K/MM3 (134-434) D 04/23/20 15:50 MPV 11.3 fl (7.5-11.1) H D 04/23/20 15:50 Sodium 141 mmol/L (136-145) 04/23/20 15:50 Potassium 3.6 mmol/L (3.5-5.1) 04/23/20 15:50 Chloride 108 mmol/L (98-107) H 04/23/20 15:50 Carbon Dioxide 23 mmol/L (21-32) 04/23/20 15:50 Anion Gap 10 MMOL/L (8-16) 04/23/20 15:50 BUN 11.0 mg/dL (7-18) 04/23/20 15:50 Creatinine 0.9 mg/dL (0.55-1.3) 04/23/20 15:50 Est GFR (CKD-EPI)AfAm 87.63 04/23/20 15:50 Est GFR (CKD-EPI)NonAf 75.61 04/23/20 15:50 Random Glucose 95 mg/dL (74-106) 04/23/20 15:50 Calcium 9.3 mg/dL (8.5-10.1) 04/23/20 15:50 Total Bilirubin 0.3 mg/dL (0.2-1) 04/23/20 15:50 AST 35 U/L (15-37) 04/23/20 15:50 ALT 45 U/L (13-61) 04/23/20 15:50 Alkaline Phosphatase 80 U/L (45-117) 04/23/20 15:50 Total Protein 7.8 g/dl (6.4-8.2) 04/23/20 15:50 Albumin 3.9 g/dl (3.4-5.0) 04/23/20 15:50 POC Urine HCG, Qual Negative 04/23/20 14:37 Syphilis Serology Non-reactive (NONREACTIVE) 04/23/20 15:50 COVID-19 ([place]) Not detected (Not Detected) 04/23/20 08:30 HIV Ag/Ab Combo Qual Negative (NEGATIVE) 04/24/20 08:00 Labs noted. Assessment: 04/26/20 12:11 AOX3, in no acute respiratory distress. Full ROM, ambulating in the unit. Withdrawal symptoms. Plan: continue detox.
[2020-04-26] MEDS: IBUPROFEN 400 MG TABLET (FP) PO PRN (16:26)
[2020-04-26] MEDS: MAG HYDROX/AL HYDROX/SIMETH 30 ML UNIT-DOSE CUP PO PRN (19:53)
[2020-04-26] MEDS ORDERED: QUEtiapine FUMARATE 100 MG TABLET (FP) ONE (21:16)
[2020-04-26] MEDS ORDERED: DOCUSATE SODIUM 100 MG CAPSULE (FP) PO SCH (22:00)
[2020-04-26] MEDS: THIAMINE HCL 100 MG TABLET (FP) PO SCH (22:07)
[2020-04-26] MEDS: QUEtiapine FUMARATE 300 MG TABLET PO SCH (22:07)
[2020-04-26] MEDS: LIDOCAINE PATCH REMOVAL MC SCH (22:10)
[2020-04-26] MEDS: MELATONIN 5 MG TABLETS PO SCH (22:11)
[2020-04-26 23:10] VITALS: BP 97/69; PULSE 87; TEMP 97.1
--- NOTE | 2020-04-26 23:52 | PN ---
[facility] Progress Note Note: ASKED TO SEE PATIENT FOR WORSENING LEFT EAR PAIN. CLIENT REPORTS INTERNAL EAR PAIN X 3 DAYS. STARTED ON ANTIBIOTIC EAR DROPS CORTISPORIN, MOTRIN W/O RELIEF. CLIENT REPORTS PAIN 10/10, PAIN RADIATING TO EXTERNAL EAR DOWN LEFT SIDE OF NECK. PAIN WORSENS WHEN SWALLOWING. Vital Signs Temperature 97.1 F L 04/26/20 20:47 Pulse Rate 87 04/26/20 20:47 Respiratory Rate 16 04/26/20 20:47 Blood Pressure 97/69 04/26/20 20:47 O2 Sat by Pulse Oximetry (%) 97 04/26/20 20:47 AWAKE A/O X3 LEFT EAR MILD REDNESS AND TENDER TO TOUCH. UNABLE TO EVALUATE FURTHER FACILITY UNABLE TO LOCATE AN OTOSCOPE. A- LEFT EAR OTITIS P- 49 Y.O. FEMALE ADMITTED ON 04/23/2020 FOR ALCOHOL/ HEROIN DETOX ON LIBRIUM/ METHADONE TAPER. C/O WORSENING LEFT EAR PAIN WHICH STARTED ON 04/23/2020. CLIENT WAS STARTED ON ANTIBIOTICS EAR DROPS FOR THIS ON 04/24/20. TRANSFER TO [facility]. CASE D/W DR. SAINI
[2020-04-27] MEDS ORDERED: chlordiazePOXIDE HCL 10 MG CAPSULE PO SCH (05:00)
[2020-04-27] MEDS ORDERED: METHADONE HCL 10 MG TABLET (FOR DETOX USE ONLY) PO ONE (10:00)
[2020-04-28] MEDS ORDERED: chlordiazePOXIDE HCL 10 MG CAPSULE PO ONE (05:00)
== END 2020-04-26 11:55 | disposition short-term general hospital (02) | DRG 773 ==
LOC: YASAS 13:05 → Y3N 16:06
PROVIDERS: ADMIT Allergy & Immunology; ATTEND Allergy & Immunology
PROC: HZ2ZZZZ Detoxification Services for Substance Abuse Treatment (ICD-10-PCS; principal; 2020-04-23)
DX: F11.23 Opioid dependence with withdrawal (principal); F10.230 Alcohol dependence with withdrawal, uncomplicated; F17.210 Nicotine dependence, cigarettes, uncomplicated; F39 Unspecified mood [affective] disorder; F19.282 Other psychoactive substance dependence with psychoactive substance-induced sleep disorder; F43.10 Post-traumatic stress disorder, unspecified; F31.9 Bipolar disorder, unspecified; H66.92 Otitis media, unspecified, left ear; Z86.19 Personal history of other infectious and parasitic diseases; Z88.8 Allergy status to other drugs, medicaments and biological substances; Z86.69 Personal history of other diseases of the nervous system and sense organs; Z87.42 Personal history of other diseases of the female genital tract; Z91.14 Patient's other noncompliance with medication regimen
CPT/HCPCS: 36415; 80053; 81025; 85027; 86780; 87389; 93005; 93010; U0003

== ENCOUNTER 2020-04-27 00:38 | Inpatient (IN) | payer OTHER ==
--- NOTE | 2020-04-27 00:57 | PDOC ---
History of Present Illness - General Chief Complaint: Ear Problem Stated Complaint: LEFT EAR PAIN Time Seen by Provider: 04/27/20 00:55 History Source: Patient Exam Limitations: No Limitations - History of Present Illness Initial Comments: Pt is a 49 yo F, with PMH of polysubstance use (heroin, alcohol, and nicotine) who is presenting via EMS from [facility] detox for worsening L ear pain. Pt has been on amoxicillin and corisporin ear drops with minimal relief, and pt states it is now "spreading down the back of my head toward my neck". Pt is tolerating PO intake without difficulty. Pt has been on PO amoxicillin and corosporin ear drops since 04/23 with no relief of her symptoms. Pt denies any fevers/chills, vision changes, headache, sore throat, vision changes, syncope, chest pain, palpitations, SOB, nausea/vomiting, abdominal pain, urinary symptoms, diarrhea/constipation, or leg swelling. Allergies: NKDA PCP: None Social: Pt smokes cigarettes daily, drinks beer, and uses intranasal heroin daily. Currently in detox since 04/23 Pt denies any recent travel or sick contacts. Surgical: no relevant history. Family: no relevant history. 04/27/20 01:28 04/27/20 05:23 Past History - Travel History Traveled outside of the country in the last 30 days: No Close contact w/someone who was outside of country & ill: No - Medical History Allergies/Adverse Reactions: Allergies Allergy/AdvReac Type Severity Reaction Status Date / Time metoclopramide HCl Allergy Severe dystonic Verified 04/27/20 00:48 [From Reglan] reaction prochlorperazine maleate Allergy Severe DYSTONIA Verified 04/27/20 00:48 [From Compazine] haloperidol [From Haldol] Allergy Verified 04/27/20 00:48 mirtazapine [From Remeron] AdvReac Severe Difficulty Verified 04/27/20 00:48 Breathing Home Medications: Ambulatory Orders traZODone HCL [Trazodone HCl] 200 mg PO HS 04/03/19 Albuterol Sulfate Inhaler - [Ventolin HFA Inhaler -] 1 - 2 inh PO QID #1 inhaler 04/12/19 Gabapentin [Neurontin] 600 mg PO BID 07/06/19 Quetiapine Fumarate [Seroquel -] 300 mg PO HS 07/17/19 Cyclobenzaprine HCl 10 mg PO DAILY PRN 04/01/20 Docusate Sodium [Docusate 100 mg] 100 mg PO TID 04/26/20 Anemia: Yes (as a teen, had iron and transfusions) Asthma: Yes Cancer: No Cardiac Disorders: No CVA: No COPD: No CHF: No Dementia: No Diabetes: No GI Disorders: No Disorders: No HTN: No Hypercholesterolemia: No Kidney Stones: No Liver Disease: Yes (hepatitis C) Psychiatric Problems: Yes (PTSD, bi-polar, depression, pschizophrenia) Seizures: No Thyroid Disease: No - Surgical History Abdominal Surgery: No Appendectomy: No Cardiac Surgery: No Cholecystectomy: No Lung Surgery: No Neurologic Surgery: No Orthopedic Surgery: No - Reproductive History (#): 13 Para: 11 PID: No - Immunization History TDAP Vaccination: Yes Immunization Up to Date: No - Psycho-Social/Smoking History Smoking History: Unknown if ever smoked Have you smoked in the past 12 months: No Number of Cigarettes Smoked Daily: 4 Cigars Per Day: 0 Information on smoking cessation initiated: No 'Breaking Loose' booklet given: 04/23/20 - Substance Abuse Hx (Audit-C & DAST Scrn) How often the patient has a drink containing alcohol: 4 0r more times/wk Number of drinks the patient has on a typical day: 10 or more How often the patient has six or more drinks on one occasion: Daily or almost daily Score: In Men: 4 or > Positive; In Women: 3 or > Positive: 12 Screen Result (Pos requires Nsg. Audit-10AR): Positive In the last yr the pt used illegal drug/Rx for NonMed reason: Yes Score: Yes response is considered Positive: 1 Screen Result (Positive result requires Nsg. DAST-10): Positive Review of Systems - Review of Systems Able to Perform ROS?: Yes Is the patient limited [place] proficient: No Constitutional: Yes: Weight Stable. No: Chills, Diaphoresis, Fever, Loss of Appetite, Malaise, Weakness HEENTM: Yes: Ear Pain. No: Recent change in vision, Ear Discharge, Nose Congestion, Hearing Loss, Throat Pain, Throat Swelling, Mouth Pain, Difficulty Swallowing Respiratory: No: Cough, Orthopnea, Shortness of Breath Cardiac (ROS): No: Chest Pain, Edema, Irregular Heart Rate, Lightheadedness, Palpitations, Syncope, Chest Tightness ABD/GI: No: Constipated, Diarrhea, Nausea, Poor Appetite, Poor Fluid Intake, Vomiting, Abdominal cramping : No: Burning, Dysuria, Frequency, Pain, Urgency Musculoskeletal: No: Back Pain, Muscle Pain, Muscle Weakness Integumentary: No: Change in Color, Erythema, Rash Neurological: No: Headache, Numbness, Weakness, Unsteady Gait, Dizziness Psychiatric: No: Sleep Pattern Change, Change in Appetite Endocrine: No: Increased Urine, Change in Weight Hematologic/Lymphatic: No: Anemia, Blood Clots, Easy Bleeding, Easy Bruising All Other Systems: Reviewed and Negative *Physical Exam - Vital Signs Last Vital Signs Temp Pulse Resp BP Pulse Ox 97.9 F 98 H 20 99/62 95 04/27/20 00:48 04/27/20 00:48 04/27/20 00:48 04/27/20 00:48 04/27/20 00:48 - Physical Exam Vitals stable, pt afebrile. Pt in NAD, normal body habitus. Pt alert and oriented x3. pipe roller generally intact, muscular strength and sensation intact. No midline spinal tenderness, step-offs, or crepitus. Head normocephalic, atraumatic. Eyes PERRLA, EOMI. Oropharynx without erythema or exudates, no LAD b/l. Pt tolerating secretions. No nasal congestion. Ruptured TM L ear with external erythema and TTP. TTP over L mastoid. Hearing intact. Clear heart sounds, S1/S2, no JVD, b/l pedal edema, or heart murmur. Clear lung sounds, no respiratory distress, wheezes, crackles, or accessory muscle use. No abdominal or CVA tenderness to palpation, no rebound, no guarding. Abdomen soft, non-distended, and with normoactive bowel sounds. Skin without jaundice or rash. Multiple healing abrasions/puncture sites over extremities. 04/27/20 05:24 04/27/20 06:07 ED Treatment Course - LABORATORY CBC & Chemistry Diagram: 04/27/20 02:00 04/27/20 02:00 Medical Decision Making - Medical Decision Making Pt was seen at bedside, also will be seen by attending Dr. Morrison. Pt presenting with TTP over L mastoid, failed outpatient abx, likely mastoiditis. Provided 15 IV toradol, 1 g IV vanc, 1 g IV rocephin for improvement of pain and abx coverage. Will continue to reassess pt and monitor for symptomatic improvement. ECG: NSR, intervals WNL. No TWIs or significant ST segment changes. No significant changes from prior ECG. CBC and CMP WNL CT temporal bones shows trapped debris/cholesteatoma vs early mastoiditis. Paged hospitalist team for admission. 04/27/20 04:39 Pt accepted to hospitalist team for IV abx (failed outpatient treatment) due to expansion into mastoid. No focal neuro findings, afebrile, tolerating PO intake. 04/27/20 06:08 Discharge - Discharge Information Problems reviewed: Yes Clinical Impression/Diagnosis: Substance use disorder, Alcohol dependence with uncomplicated intoxication Mastoiditis Qualifiers: Laterality: left Qualified Code(s): H70.92 - Unspecified mastoiditis, left ear Opioid dependence Qualifiers: Substance use status: uncomplicated Qualified Code(s): F11.20 - Opioid dependence, uncomplicated Condition: Stable - Admission No - Follow up/Referral - Patient Discharge Instructions - Post Discharge Activity
[2020-04-27] MEDS ORDERED: VANCOMYCIN 1,000 MG in DEXTROSE 5%-WATER - 250 ML IVPB ONE (01:17)
[2020-04-27] MEDS ORDERED: CEFTRIAXONE 1,000 MG in DEXTROSE 5%-WATER - 50 ML IVPB ONE (01:19)
[2020-04-27] MEDS ORDERED: KETOROLAC TROMETHAMINE 15 MG/ML VIAL IVPUSH ONE (01:29)
--- NOTE | 2020-04-27 02:06 | PDOC ---
Documentation entered by Nayan Cordon SCRIBE, acting as scribe for Kinsey Morrison MD. Kinsey Morrison MD: This documentation has been prepared by the Bravo leiva Nirvannie, SCRIBE, under my direction and personally reviewed by me in its entirety. I confirm that the documentation accurately reflects all work, treatment, procedures, and medical decision making performed by me. Attending Attestation - Resident Resident Name: April Stubbs - ED Attending Attestation I have performed the following: I have examined & evaluated the patient, The case was reviewed & discussed with the resident, I agree w/resident's findings & plan, Exceptions are as noted - HPI HPI: 04/27/20 01:24 The patient is a 49 year old female with a significant past medical history of pancreatitis, HCV, HIV, HTN, asthma, polysubstance abuse (EtOH, Heroin, cannabis) who presents to the ED via EMS from [facility] with 3 days of left inner ear pain. Patient was prescribed cortisporin and given Motrin for her symptoms, without relief prompting her arrival to the ED. Allergies: Per nursing notes. 04/27/20 04:51 Pt is sober at this time. - Physicial Exam PE: 04/27/20 04:49 Agree with resident exam. Pt has left mastoiditis tenderness behind the pinna and slight redness pt has pain with movement of the left pinna Left TM ruptured Left tonsil pain; however pharynx is normal appearing. Afebrile heart lungs normal abd NT ND normal bowel sounds Pt has old healing abrasions on extremities, from injuries due to falling while intox with heroin and alcohol - Medical Decision Making 04/27/20 04:37 Patient Name: ELDON HUNTER THIS IS A PRELIMINARY REPORT FROM [facility] DATE OF SERVICE: 2020-04-27 04:08:48 IMAGES: 344 EXAM: CT temporal bones without contrast HISTORY: Left mastoid tender to palpation COMPARISON: None. FINDINGS: Left side: There is thickening of the left tympanic membrane. There is also soft tissue in Prusac's space and in the middle ear canal. These findings most likely represent otitis media. The Prusac space soft tissue could indicate early cholesteatoma but at this time there is no erosion of the scutum or ossicles. There is also soft tissue in the aditus ad antrum. There is soft tissue and/or fluid in scattered left mastoid air cells. This could represent trapped secretions versus very early mastoiditis. There is also thickening of the soft tissue of the external auditory canal which could represent associated left external otitis. Left inner ear is normal. Right side: There is debris in the right external ear canal. Right middle ear canal, ossicles, mastoid air cells and right inner ear are unremarkable. 04/27/20 04:51 Pt received abx for mastoiditis as well as pain meds and she will be admitted to the hospitalists Heart Score/ECG Review - ECG Intrepretation Rhythm: Regular Rhythm - P and NM Prominent R with upright T in V1 (true posterior OR): No Delta Wave(s) Present: No WPW: No - QRS Poor R Wave Progression: No Q Wave Present: No - ST and T Early Repolarization: No Non Specific ST-T Wave changes: No Flattened T Waves: No Prolonged Q-T Interval: No - ECG Impressions Normal ECG: Yes Non-specific ST Elevation: No Ischemic Changes: No Bradycardia: No Torsades ameena Pointes: No WPW: No Discharge - Discharge Information Problems reviewed: Yes Clinical Impression/Diagnosis: Mastoiditis Condition: Guarded - Follow up/Referral - Patient Discharge Instructions - Post Discharge Activity
[2020-04-27] MEDS ORDERED: KETOROLAC TROMETHAMINE 15 MG/ML VIAL ONE ×2 (02:57→13:01)
[2020-04-27] MEDS ORDERED: VANCOMYCIN 1 GRAM (PRE-DOCKED) 1,000 MG/250 ML BAG IVPB ONE ×3 (02:57→14:59)
[2020-04-27] MEDS ORDERED: CEFTRIAXONE 1 GM/50 ML BAG ONE (02:58)
[2020-04-27 03:14] LABS: BASO % 0.8 % (0-2.0); EOS % 3.3 % (0-4.5); HEMATOCRIT 38.1 % (32.4-45.2); HEMOGLOBIN 12.7 GM/dL (10.7-15.3); LYMPH % 24.9 % (8-40); MCH 33.1 pg (25.7-33.7); MCHC 33.4 g/dl (32.0-36.0); MEAN CELL VOLUME 99.2 fl (80-96); MEAN PLT VOLUME 10.5 fl (7.5-11.1); MONO % 10.4 % (3.8-10.2); NEUT % 60.6 % (42.8-82.8); PLATELET COUNT 137 K/MM3 (134-434); RBC 3.84 M/mm3 (3.60-5.2); RDW 14.3 % (11.6-15.6); WHITE BLOOD COUNT 6.7 K/mm3 (4.0-10.0)
[2020-04-27] MEDS ORDERED: BACITRACIN 0.9 GM PACKET ONE (03:28)
[2020-04-27 03:41] LABS: ALBUMIN 3.4 g/dl (3.4-5.0); BILIRUBIN,TOTAL 0.3 mg/dL (0.2-1); BLOOD UREA NITROGEN 19.8 mg/dL (7-18); CALCIUM 9.2 mg/dL (8.5-10.1); CREATININE 0.8 mg/dL (0.55-1.3); POTASSIUM 4.9 mmol/L (3.5-5.1); TOT PROT 6.8 g/dl (6.4-8.2)
--- NOTE | 2020-04-27 04:56 | PN ---
Teaching Attending Note Name of Resident: Alex Vasquez ATTENDING PHYSICIAN STATEMENT I saw and evaluated the patient. I reviewed the resident's note and discussed the case with the resident. I agree with the resident's findings and plan as documented. SUBJECTIVE: Patient is a 49 year old woman with a PMH of Polysubstance use (heroin, alcohol ), Hepatitis C infection, PTSD, Bipolar disorder, Schizophrenia, Pancreatitis and Nicotine use who is presenting via EMS from [facility] for worsening left ear pain. Patient has been on Amoxicillin and Corisporin ear drops with minimal relief. She reports pain is now "spreading down the back of my head toward my neck". Says hearing is decreased in left ear. Patient is tolerating PO intake without difficulty. Patient denies fevers, chills, vision changes, headache, sore throat, vision changes, syncope, chest pain, palpitations, SOB, nausea, vomiting, abdominal pain, dysuria, frequency, diarrhea, constipation or leg swelling. Denies IV drug use. No sick contacts or recent travels. Family history is unremarkable. OBJECTIVE: Alert Vital Signs Period Temp Pulse Resp BP Sys/Moore Pulse Ox Last 24 Hr 97.9 F 98 20 99/62 95 HEENT: No Jaundice, eye redness or discharge, PERRLA, EOMI. Normocephalic, atraumatic. Tenderness around left ear and left jaw. Tympanic membrane not visualized. Hearing is grossly intact. No nasal discharge. Neck: Supple, nontender. No palpable adenopathy or thyromegaly. No JVD Chest: Good effort. Clear to auscultation and percussion. Heart: Regular. No S3, rub or murmur Abdomen: Not distended, soft, nontender and no HSM. No rebound or guarding. Normal bowel sounds. Ext: Peripheral pulses intact. No leg edema. Track wu on arms. Skin: Warm and dry. No petechiae, rash or ecchymosis. Neuro: Alert. Oriented x3. No tremors or asterexis. CN 2-12 grossly intact. Sensation grossly intact in all four extremities and DTR are symmetric. Psych: Appropriate mood and affect. Good insight. Home Medications Medication Instructions Recorded traZODone HCL [Trazodone HCl] 200 mg PO HS 04/03/19 Albuterol Sulfate Inhaler - 1 - 2 inh PO QID #1 inhaler 04/12/19 [Ventolin HFA Inhaler -] Gabapentin [Neurontin] 600 mg PO BID 07/06/19 Quetiapine Fumarate [Seroquel -] 300 mg PO HS 07/17/19 Cyclobenzaprine HCl 10 mg PO DAILY PRN 04/01/20 Docusate Sodium [Docusate 100 mg] 100 mg PO TID 04/26/20 Abnormal Lab Results 04/27/20 04/27/20 02:00 02:00 MCV 99.2 H Monocytes % 10.4 H Anion Gap 6 L BUN 19.8 H Current Medications Generic Name Dose Route Start Last Admin Trade Name Freq PRN Reason Stop Dose Admin Enoxaparin Sodium 40 mg 04/27/20 10:00 Lovenox - SQ DAILY [facility] Imipenem/Cilastatin Sodium 500 100 mls @ 100 mls/hr 04/27/20 09:00 mg/ Sodium Chloride IVPB Q6H-IV GONZALEZ Protocol Vancomycin HCl 1,000 mg 04/27/20 13:00 Vancomycin (Pre-Docked) IVPB BID [facility] Protocol ASSESSMENT AND PLAN: 1. Mastoiditis/Left otitis media - Failed outpatient oral antibiotics. Report of Temporal bone CT without contrast: Left side: There is thickening of the left tympanic membrane. There is also soft tissue in Prusac's space and in the middle ear canal. These findings most likely represent otitis media. The Prusac space soft tissue could indicate early cholesteatoma but at this time there is no erosion of the scutum or ossicles. There is also soft tissue in the aditus ad antrum. There is soft tissue and/or fluid in scattered left mastoid air cells. This could represent trapped secretions versus very early mastoiditis. There is also thickening of the soft tissue of the external auditory canal which could represent associated left external otitis. Left inner ear is normal. Right side: There is debris in the right external ear canal. Right middle ear canal, ossicles, mastoid air cells and right inner ear are unremarkable. Viral testing for COVID-19 ordered and patient placed on airborne, droplet and contact isolation. ER staff prescribed IV Vancomycin, Rocephin, Toradol, and Bacitracin for the patient. EKG shows NSR at 94/minute and QTc [address]-T wave changes. Will culture any drainage from the ear, treat patient with Ciprofloxacin ear drops, IV Vancomycin and IV Imipenem and consult ID and ENT. Will continue comprehensive care for all of patients comorbid conditions. 2. Alcohol/Drug abuse - Get urinalysis and urine toxicology screen. Monitor closely for drug withdrawal. Implement [facility] alcohol withdrawal protocol and do neurochecks. Implement seizure, fall and aspiration precautions. Treat with IV Banana bag, thiamine and folic acid. Monitor and replete electrolytes (Ca,Mg,K,P). Counseled patient about abstaining from alcohol and illicit drugs. Will consult coding support specialist and refer to alcohol/drug detox upon discharge. 3. Tobacco Use Counseled on risks associated with tobacco use. We will provide patient all the necessary assistance to facilitate smoking cessation and prescribe Nicotine patch. 4. DVT prophylaxis - Lovenox 40 mg SQ q 24 hours. 5. Advance directives - Full code
--- NOTE | 2020-04-27 06:48 | HP ---
CHIEF COMPLAINT:L Ear Pain PCP: None HISTORY OF PRESENT ILLNESS: Pt. is a 49 y.o. F w/ PMHx. of Hep C (treated and now reoccurred, awaiting re-treatment), Bipolar Disorder, PTSD, schizophrenia, Hx. of Anemia, Hx. of Pancreatitis presents from [facility] with L. ear pain that has not improved over the last 3 days despite being on Augmentin and topical ear drops. Pt. states she took a Q-tip, stuck it in her mouth to wet it and then inserted it into her ear to clean it prior to symptom onset. Pt. states that the pain has now traveled down her neck and is associated with some hearing loss, difficulty swallowing and headache. Pt. denies fever but endorses pain. Pt. is at [facility] for Detox from heroin and alcohol. Pt. currently denies any recent changes in vision, abdominal pain, chest pain, shortness of breath, changes in bowel habits or urination. ER course was notable for: (1) IV Cefepime, Vancomycin, CT temporal head (2) CB, CMP, (3) Recent Travel: No PAST MEDICAL HISTORY: As above PAST SURGICAL HISTORY: x 1 Social History: Smokin cigs/ day Alcohol: 2 36 Oz. beers/ day Drugs: 4 bags of Heroin IH /day denies IVDA Pt. lives alone but states she does not work and that her supports her Allergies metoclopramide HCl [From Reglan] Allergy (Severe, Verified 04/27/20 00:48) dystonic reaction dystonic reaction prochlorperazine maleate [From Compazine] Allergy (Severe, Verified 04/27/20 00:48) DYSTONIA haloperidol [From Haldol] Allergy (Verified 04/27/20 00:48) mirtazapine [From Remeron] Adverse Reaction (Severe, Verified 04/27/20 00:48) Difficulty Breathing HOME MEDICATIONS: Home Medications Medication Instructions Recorded traZODone HCL [Trazodone HCl] 200 mg PO HS 04/03/19 Albuterol Sulfate Inhaler - 1 - 2 inh PO QID #1 inhaler 04/12/19 [Ventolin HFA Inhaler -] Gabapentin [Neurontin] 600 mg PO BID 07/06/19 Quetiapine Fumarate [Seroquel -] 300 mg PO HS 09/17/19 Cyclobenzaprine HCl 10 mg PO DAILY PRN 04/01/20 Docusate Sodium [Docusate 100 mg] 100 mg PO TID 04/26/20 REVIEW OF SYSTEMS As above PHYSICAL EXAMINATION Vital Signs - 24 hr 04/27/20 04/27/20 04/27/20 00:48 06:29 06:30 Temperature 97.9 F 97.3 F L Pulse Rate 98 H Pulse Rate [ 78 Left Radial] Respiratory 20 18 Rate Blood Pressure 99/62 Blood Pressure 108/79 [Right Arm] O2 Sat by Pulse 95 98 100 Oximetry (%) GENERAL: Awake, alert, and fully oriented, in no acute distress. HEAD: Normal with no signs of trauma. EYES: Extraocular movements intact, sclera anicteric, conjunctiva clear. EARS, NOSE, THROAT: L. Ear with inflammed TM, lots of serum( exam limited by pain), R. Ear has some cerumen as well, nares patent, oropharynx clear without exudates. Moist mucous membranes; L. auricle tender to manipulation, R. auricle wnl. NECK: Left cervical lymphadenopathy, slight tenderness to palpation on Left anterior neck LUNGS: Breath sounds equal, clear to auscultation bilaterally. No wheezes, and no crackles. No accessory muscle use. HEART: Regular rate and rhythm, normal S1 and S2 without murmur ABDOMEN: Soft, nontender, not distended, normoactive bowel sounds, no guarding, no rebound, no masses. UPPER EXTREMITIES: 2+ radial pulses, warm, well-perfused. No cyanosis. No cl ubbing. No peripheral edema. LOWER EXTREMITIES: 2+ dorsal pedal pulses, warm, well-perfused. No calf tenderness. No peripheral edema. NEUROLOGICAL: Normal speech with slight lisp. Normal gait. PSYCHIATRIC: Cooperative. Active, fidgety SKIN: Warm, dry, normal turgor Laboratory Results - last 24 hr 04/27/20 04/27/20 02:00 02:00 WBC 6.7 RBC 3.84 Hgb 12.7 Hct 38.1 MCV 99.2 H MCH 33.1 MCHC 33.4 RDW 14.3 Plt Count 137 D MPV 10.5 Absolute Neuts (auto) 4.1 Neutrophils % 60.6 D Lymphocytes % 24.9 D Monocytes % 10.4 H Eosinophils % 3.3 D Basophils % 0.8 D Nucleated RBC % 0 Sodium 137 Potassium 4.9 Chloride 104 Carbon Dioxide 27 Anion Gap 6 L BUN 19.8 H Creatinine 0.8 Est GFR (CKD-EPI)AfAm 101.04 Est GFR (CKD-EPI)NonAf 87.18 Random Glucose 95 Calcium 9.2 Total Bilirubin 0.3 AST 30 ALT 39 Alkaline Phosphatase 88 Total Protein 6.8 Albumin 3.4 ASSESSMENT/PLAN: Pt. is a 49 y.o. F w/ PMHx. of Hep C (treated and now reoccurred, awaiting re- treatment), Bipolar Disorder, PTSD, schizophrenia, Hx. of Anemia, Hx. of Pancreatitis presents from [facility] with L. ear pain that has not improved over the last 3 days despite being on Augmentin and topical ear drops. #Acute Otitis Media CT of Temporal head suspicious for very early acute mastoiditis Given Vanc and Ceftriaxone in ER, will escalate to Imipenem and Vancomycin for broader coverage including Pseudomonas ENT consult appreciated ID consult appreciated #Polysubstance Abuse c/w Detox Consult to Addiciotn medicine appreciated will give 10mg Methadone today as she received 15mg yesterday #HCV treated now reoccurred, in process of being re-treated #FEN no IVF monitor electrolytes and replete as needed Regular Diet #DVT Ppx. Lovenox 40 SQ Visit type - Emergency Visit Emergency Visit: Yes ED Registration Date: 04/27/20 Care time: The patient presented to the Emergency Department on the above date and was hospitalized for further evaluation of their emergent condition. - New Patient This patient is new to me today: Yes Date on this admission: 04/27/20 - Critical Care Critical Care patient: No ATTENDING PHYSICIAN STATEMENT I saw and evaluated the patient. I reviewed the resident's note and discussed the case with the resident. I agree with the resident's findings and plan as documented. SUBJECTIVE: OBJECTIVE: ASSESSMENT AND PLAN:
[2020-04-27] MEDS ORDERED: chlordiazePOXIDE HCL 25 MG CAPSULE PO PRN (07:00)
[2020-04-27] MEDS ORDERED: PT OWN MED DRAWER 7, Y5N ONE (07:39)
[2020-04-27] MEDS ORDERED: chlordiazePOXIDE HCL 10 MG CAPSULE PO PRN (08:08)
[2020-04-27] MEDS ORDERED: chlordiazePOXIDE 5 MG CAPSULE ONE ×3 (08:16→19:04)
[2020-04-27] MEDS ORDERED: METHADONE HCL 10 MG TABLET ONE (08:16)
[2020-04-27] MEDS: chlordiazePOXIDE HCL 10 MG CAPSULE PO SCH ×4 (08:29→22:27)
[2020-04-27] MEDS ORDERED: METHADONE HCL 5 MG TABLET (FOR DETOX USE ONLY) PO ONE (10:00)
[2020-04-27] MEDS ORDERED: METHADONE HCL 10 MG TABLET (FOR DETOX USE ONLY) PO ONE (10:00)
[2020-04-27] MEDS ORDERED: chlordiazePOXIDE HCL 25 MG CAPSULE ONE (10:31)
[2020-04-27] MEDS ORDERED: METHADONE HCL 5 MG TABLET ONE (10:32)
[2020-04-27] MEDS: CIPROFLOXACIN HCL 0.3% OPHTH 2.5ML BOTTLE NR SCH ×2 (10:40→21:37)
[2020-04-27] MEDS: IMIPENEM/CILASTATIN SODIUM 500 MG in SODIUM CHLORIDE 100 ML IVPB SCH ×2 (10:56→15:09)
[2020-04-27] MEDS ORDERED: ENOXAPARIN NA (PORCINE) 40 MG/0.4 ML DISP.SYRIN SQ ONE (11:04)
[2020-04-27] MEDS ORDERED: THIAMINE HCL 100 MG TABLET (FP) ONE (11:04)
[2020-04-27] MEDS ORDERED: FOLIC ACID 1 MG TABLET (FP) ONE (11:04)
[2020-04-27] MEDS ORDERED: KETOROLAC TROMETHAMINE 15 MG/ML VIAL IVPUSH PRN (11:06)
[2020-04-27] MEDS: ENOXAPARIN NA (PORCINE) 40 MG/0.4 ML DISP.SYRIN SQ SCH (11:11)
[2020-04-27] MEDS: FOLIC ACID 1 MG TABLET (FP) PO SCH (11:11)
[2020-04-27] MEDS: THIAMINE HCL 100 MG TABLET (FP) PO SCH (11:11)
--- NOTE | 2020-04-27 13:01 | PN ---
Teaching Attending Note Name of Resident: Varun Sauceda ATTENDING PHYSICIAN STATEMENT I saw and evaluated the patient. I reviewed the resident's note and discussed the case with the resident. I agree with the resident's findings and plan as documented. SUBJECTIVE: Seen and examined at bedside. Patient complaining of ear pain. Has mild claudia ateral hand tremors. Denies nausea, vomiting, shortness of breath, chest pain. Will start IV Tylenol and Toradol for pain control as patient is currently detoxing from heroin. OBJECTIVE: Last Vital Signs Temp Pulse Resp BP Pulse Ox 97.3 F L 78 18 108/79 100 04/27/20 06:30 04/27/20 06:30 04/27/20 06:30 04/27/20 06:30 04/27/20 06:30 PE: per resident note Labs/Imaging: reviewed ASSESSMENT AND PLAN: 49-year-old female with past medical history of hepatitis C, bipolar disorder, PTSD, schizophrenia, anemia, pancreatitis transferred from [facility] where she was undergoing detox for heroin and alcohol for left ear pain and found to have acute otitis media versus mastoiditis. #Acute otitis media versus mastoiditis Failed outpatient oral therapy Concern for mastoiditis on CT head Continue vancomycin and imipenem, as well as ciprofloxacin eardrops ENT consulted, pending evaluation Pain control with [place] of and Toradol: Avoid opiate pain medications if possible #Polysubstance abuse Continue with methadone taper and Librium taper Addiction medicine consulted #Hepatitis C Previously treated and now reoccurred, treatment as outpatient
--- NOTE | 2020-04-27 14:13 | CON.ID ---
Consult - Past Medical History Pulmonary: Yes: Asthma Gastrointestinal: Yes: Gastritis, Pancreatitis (? chronic pancreatitis) Hepatobiliary: Yes: Hepatitis C (Untreated) ...LMP: 10/31/14 Infectious Disease: Yes: STD's (just treated in ER for gonorrhea with injection and pills) Psych: Yes: Addictions (Alcohol, Marijuana), Bipolar - Past Surgical History Past Surgical History: Yes: None, - Alcohol/Substance Use Hx Alcohol Use: Yes Number of Drinks Daily: 4 (4 pints a day) History of Substance Use: reports: Heroin - Smoking History Smoking history: Unknown if ever smoked Have you smoked in the past 12 months: No Aproximately how many cigarettes per day: 4 - Social History Usual Living Arrangement: With Significant Other (Single) ADL: Independent Occupation: Unemployed History of Recent Travel: No Home Medications - Allergies Allergies/Adverse Reactions: Allergies Allergy/AdvReac Type Severity Reaction Status Date / Time metoclopramide HCl Allergy Severe dystonic Verified 04/27/20 00:48 [From Reglan] reaction prochlorperazine maleate Allergy Severe DYSTONIA Verified 04/27/20 00:48 [From Compazine] haloperidol [From Haldol] Allergy Verified 04/27/20 00:48 mirtazapine [From Remeron] AdvReac Severe Difficulty Verified 04/27/20 00:48 Breathing - Home Medications Home Medications: Ambulatory Orders traZODone HCL [Trazodone HCl] 200 mg PO HS 04/03/19 Albuterol Sulfate Inhaler - [Ventolin HFA Inhaler -] 1 - 2 inh PO QID #1 inhaler 04/12/19 Gabapentin [Neurontin] 600 mg PO BID 07/06/19 Quetiapine Fumarate [Seroquel -] 300 mg PO HS 07/17/19 Cyclobenzaprine HCl 10 mg PO DAILY PRN 04/01/20 Docusate Sodium [Docusate 100 mg] 100 mg PO TID 04/26/20 Physical Exam Vital Signs: Vital Signs Temperature 97.3 F L 04/27/20 06:30 Pulse Rate 78 04/27/20 06:30 Respiratory Rate 18 04/27/20 06:30 Blood Pressure 108/79 04/27/20 06:30 O2 Sat by Pulse Oximetry (%) 100 04/27/20 06:30 Labs: CBC, BMP 04/27/20 02:00 06/28/20 02:00
--- NOTE | 2020-04-27 14:32 | EKG ---
Test Reason : Blood Pressure : / mmHG Vent. Rate : 094 BPM Atrial Rate : 094 BPM P-R Int : 138 ms QRS Dur : 082 ms QT Int : 364 ms P-R-T Axes : 066 040 052 degrees QTc Int : 455 ms NORMAL SINUS RHYTHM NORMAL ECG WHEN COMPARED WITH ECG OF 24-APR-2020 14:47, VENT. RATE HAS INCREASED BY 42 BPM QT HAS LENGTHENED Confirmed by MD LORELEI, ALAINA ([id number]) on 04/27/2020 2:32:08 PM Referred By: Confirmed By:ALAINA MOSELEY MD
[2020-04-27] MEDS ORDERED: PIPERACILLIN/TAZOB 3.375 GM 3.375 GM/50 ML BAG IVPB ONE (14:59)
[2020-04-27 16:20] VITALS: BMI 27.3
--- NOTE | 2020-04-27 16:22 | PN ---
Physical Exam: SUBJECTIVE: Patient seen and examined at the bedside, endorses L ear pain OBJECTIVE: Vital Signs Period Temp Pulse Resp BP Sys/Moore Pulse Ox Last 24 Hr 97.3 F-97.9 F 78-98 18-20 99-108/62-79 95-100 GENERAL: The patient is awake, alert, and fully oriented, in no acute distress. HEAD: Normal with no signs of trauma. EYES: PERRL, extraocular movements intact, sclera anicteric, conjunctiva clear. No ptosis. ENT: L ear tender to touch, unable to perform complete exam due to pain NECK: Trachea midline, full range of motion, supple. LUNGS: Breath sounds equal, clear to auscultation bilaterally, no wheezes, no crackles, no accessory muscle use. HEART: Regular rate and rhythm, S1, S2 without murmur, rub or gallop. ABDOMEN: Soft, nontender, nondistended, normoactive bowel sounds, no guarding, no rebound, no hepatosplenomegaly, no masses. EXTREMITIES: 2+ pulses, warm, well-perfused, no edema. NEUROLOGICAL: Cranial nerves II through XII grossly intact. Normal speech, gait not observed. PSYCH: Normal mood, normal affect. SKIN: Multiple bruises on arms and knees Laboratory Results - last 24 hr 04/27/20 04/27/20 02:00 02:00 WBC 6.7 RBC 3.84 Hgb 12.7 Hct 38.1 MCV 99.2 H MCH 33.1 MCHC 33.4 RDW 14.3 Plt Count 137 D MPV 10.5 Absolute Neuts (auto) 4.1 Neutrophils % 60.6 D Lymphocytes % 24.9 D Monocytes % 10.4 H Eosinophils % 3.3 D Basophils % 0.8 D Nucleated RBC % 0 Sodium 137 Potassium 4.9 Chloride 104 Carbon Dioxide 27 Anion Gap 6 L BUN 19.8 H Creatinine 0.8 Est GFR (CKD-EPI)AfAm 101.04 Est GFR (CKD-EPI)NonAf 87.18 Random Glucose 95 Calcium 9.2 Total Bilirubin 0.3 AST 30 ALT 39 Alkaline Phosphatase 88 Total Protein 6.8 Albumin 3.4 Active Medications Generic Name Dose Route Start Last Admin Trade Name Freq PRN Reason Stop Dose Admin Acetaminophen 1,000 mg 04/27/20 11:05 Ofirmev Injection - IVPB 04/28/20 11:05 Q6H PRN PAIN LEVEL 1-5 Chlordiazepoxide HCl 25 mg 04/27/20 07:00 04/27/20 10:00 Librium - PO 04/29/20 23:59 25 mg Q4H PRN Administration WITHDRAWAL(CONT SUBST) Chlordiazepoxide HCl 10 mg 04/27/20 08:15 04/27/20 13:11 Librium - PO 04/27/20 23:01 10 mg [id number] GONZALEZ Administration Chlordiazepoxide HCl 10 mg 04/28/20 05:00 Librium - PO 04/28/20 17:01 Q12H GONZALEZ Chlordiazepoxide HCl 10 mg 04/27/20 08:08 Librium - PO 05/01/20 08:07 Q4H PRN WITHDRAWAL(CONT SUBST) Chlordiazepoxide HCl 10 mg 04/29/20 05:00 Librium - PO 04/29/20 05:01 ONCE@0500 ONE Ciprofloxacin 2 drop 04/27/20 06:45 04/27/20 10:40 Ciloxan 0.3% Eye Drops - NR 2 drop BID GONZALEZ Administration Enoxaparin Sodium 40 mg 04/27/20 10:00 04/27/20 11:11 Lovenox - SQ 40 mg DAILY GONZALEZ Administration Folic Acid 1 mg 04/27/20 10:00 04/27/20 11:11 Folic Acid - PO 1 mg DAILY GONZALEZ Administration Imipenem/Cilastatin Sodium 500 100 mls @ 200 mls/hr 04/27/20 09:00 04/27/20 15:09 mg/ Sodium Chloride IVPB 04/28/20 03:29 200 mls/hr Q6H-IV GONZALEZ Administration Protocol Piperacillin Sod/Tazobactam 50 mls @ 100 mls/hr 04/27/20 14:15 Sod 3.375 gm/ Dextrose IVPB Q8H-IV GONZALEZ Protocol Ketorolac Tromethamine 15 mg 04/27/20 11:06 Toradol Injection - IVPUSH 05/02/20 11:05 Q6H PRN PAIN LEVEL 6-10 Methadone HCl 10 mg 04/28/20 08:00 Dolophine - PO 04/28/20 08:01 ONCE ONE Methadone HCl 5 mg 04/29/20 08:00 Dolophine - PO 04/29/20 08:01 ONCE ONE Thiamine HCl 100 mg 04/27/20 10:00 04/27/20 11:11 Vitamin B1 - PO 100 mg DAILY GONZALEZ Administration Vancomycin HCl 1,000 mg 04/27/20 15:00 Vancomycin (Pre-Docked) IVPB 04/28/20 03:01 Q12H [facility] Protocol Vancomycin HCl 1,000 mg 04/28/20 15:00 Vancomycin (Pre-Docked) IVPB Q12H [facility] Protocol ASSESSMENT/PLAN: 49F with PMH of Hep C, Bipolar disorder, anemia, pancreatitis, was sent from [facility] with complaints of L sided otalgia with scant clear discharge for the past 3 days, found to have otomastoiditis on CT mastoid. 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 Amor consult placed #Hx of Hep C - Previously treated, will undergo repeat treatment outpatient #FEN - Regular diet #Prophylaxis - Lovenox #Dispo - Pending ENT consult Visit type - Emergency Visit Emergency Visit: No - New Patient This patient is new to me today: No - Critical Care Critical Care patient: No ATTENDING PHYSICIAN STATEMENT I saw and evaluated the patient. I reviewed the resident's note and discussed the case with the resident. I agree with the resident's findings and plan as documented. SUBJECTIVE: OBJECTIVE: ASSESSMENT AND PLAN:
[2020-04-27] MEDS: PIPERACILLIN/TAZOB 3.375 GM 3.375 GM in DEXTROSE 5%-WATER - 50 ML IVPB SCH ×2 (17:04→18:46)
--- NOTE | 2020-04-27 18:16 | PN ---
Progress Note (short form) - Note Progress Note: Assessed pt for suicide risk: - Denies any suicidal ideation, has no plan to harm herself or anyone else - Has no history of self harm/attempting suicide, states " I love myself and my family and would never hurt myself". - Complaining only of L ear pain. - 1:1, psych consult not necessary at this time
[2020-04-27] MEDS: VANCOMYCIN 1 GM in D5W (PRE-DOCKED) 1,000 MG/250 ML IVPB SCH (18:46)
[2020-04-27] MEDS: ACETAMINOPHEN 1000 MG/100 ML VIAL (NON FORMULARY) IVPB PRN (21:05)
[2020-04-28] MEDS ORDERED: DEXTROSE 5%-WATER - 50 ML IVPB ONE ×3 (00:12→17:33)
[2020-04-28] MEDS ORDERED: PIPERACILLIN/TAZOBACTAM 3.375 GM VIAL IVPB ONE ×3 (00:12→17:33)
[2020-04-28] MEDS: PIPERACILLIN/TAZOB 3.375 GM 3.375 GM in DEXTROSE 5%-WATER - 50 ML IVPB SCH ×3 (01:16→17:38)
[2020-04-28] MEDS: VANCOMYCIN 1 GM in D5W (PRE-DOCKED) 1,000 MG/250 ML IVPB SCH (02:24)
[2020-04-28] MEDS: chlordiazePOXIDE HCL 10 MG CAPSULE PO SCH ×2 (05:02→17:18)
[2020-04-28] MEDS ORDERED: METHADONE HCL 5 MG TABLET (FOR DETOX USE ONLY) PO ONE (06:00)
[2020-04-28] MEDS ORDERED: METHADONE HCL 10 MG TABLET PO ONE (08:00)
--- NOTE | 2020-04-28 08:28 | PN ---
Teaching Attending Note Name of Resident: Nacho Soto ATTENDING PHYSICIAN STATEMENT I saw and evaluated the patient. I reviewed the resident's note and discussed the case with the resident. I agree with the resident's findings and plan as documented. SUBJECTIVE: Seen and examined at bedside. Patient reports ear pain is improving's. Pending ENT consult OBJECTIVE: Last Vital Signs Temp Pulse Resp BP Pulse Ox 97.5 F L 83 20 90/60 98 04/28/20 06:00 04/28/20 06:00 04/28/20 06:00 04/28/20 06:00 04/27/20 23:00 PE: per resident note Labs/Imaging: reviewed ASSESSMENT AND PLAN: 49-year-old female with past medical history of hepatitis C, bipolar disorder, PTSD, schizophrenia, anemia, pancreatitis transferred from [facility] where she was undergoing detox for heroin and alcohol for left ear pain and found to have acute otitis media versus mastoiditis. #Acute otitis media versus mastoiditis Failed outpatient oral therapy Concern for mastoiditis on CT head Continue vancomycin and imipenem, as well as ciprofloxacin eardrops ENT consulted, pending evaluation Pain control with [place] of and Toradol: Avoid opiate pain medications if possible #Polysubstance abuse Continue with methadone taper and Librium taper Addiction medicine consulted #Hepatitis C Previously treated and now reoccurred, treatment as outpatient
[2020-04-28 08:52] LABS: BASO % 0.8 % (0-2.0); EOS % 4.5 % (0-4.5); HEMATOCRIT 40.1 % (32.4-45.2); HEMOGLOBIN 13.5 GM/dL (10.7-15.3); LYMPH % 27.9 % (8-40); MCH 33.1 pg (25.7-33.7); MCHC 33.7 g/dl (32.0-36.0); MEAN CELL VOLUME 98.1 fl (80-96); MEAN PLT VOLUME 10.2 fl (7.5-11.1); MONO % 9.1 % (3.8-10.2); NEUT % 57.7 % (42.8-82.8); PLATELET COUNT 179 K/MM3 (134-434); RBC 4.08 M/mm3 (3.60-5.2); RDW 14.4 % (11.6-15.6); WHITE BLOOD COUNT 5.4 K/mm3 (4.0-10.0)
[2020-04-28 08:57] LABS: INR 0.84 (0.83-1.09); PROTHROMBIN TIME (PATIENT) 9.9 SEC (9.7-13.0)
[2020-04-28] MEDS ORDERED: IMIPENEM/CILASTATIN SODIUM 500 MG in SODIUM CHLORIDE 100 ML IVPB SCH (09:00)
[2020-04-28 09:31] LABS: ALBUMIN 3.2 g/dl (3.4-5.0); BILIRUBIN,TOTAL 0.4 mg/dL (0.2-1); BLOOD UREA NITROGEN 23.7 mg/dL (7-18); CALCIUM 9.6 mg/dL (8.5-10.1); CREATININE 1.1 mg/dL (0.55-1.3); MAGNESIUM 2.7 mg/dL (1.8-2.4); PHOSPHOROUS 6.4 mg/dL (2.5-4.9); POTASSIUM 5.2 mmol/L (3.5-5.1); TOT PROT 6.8 g/dl (6.4-8.2)
[2020-04-28] MEDS: THIAMINE HCL 100 MG TABLET (FP) PO SCH (09:44)
[2020-04-28] MEDS: ENOXAPARIN NA (PORCINE) 40 MG/0.4 ML DISP.SYRIN SQ SCH (09:44)
[2020-04-28] MEDS: FOLIC ACID 1 MG TABLET (FP) PO SCH (09:44)
[2020-04-28] MEDS: CIPROFLOXACIN HCL 0.3% OPHTH 2.5ML BOTTLE NR SCH ×2 (09:45→22:39)
[2020-04-28] MEDS: ACETAMINOPHEN 1000 MG/100 ML VIAL (NON FORMULARY) IVPB PRN (10:23)
--- NOTE | 2020-04-28 11:14 | PN ---
Progress Note, Physician History of Present Illness: ear looks better feels better - Current Medication List Current Medications: Active Medications Chlordiazepoxide HCl (Librium -) 25 mg PO Q4H PRN PRN Reason: WITHDRAWAL(CONT SUBST) Stop: 04/29/20 23:59 Last Admin: 04/27/20 10:00 Dose: 25 mg Documented by: Chlordiazepoxide HCl (Librium -) 10 mg PO Q12H GONZALEZ Stop: 04/28/20 17:01 Last Admin: 04/28/20 05:02 Dose: 10 mg Documented by: Chlordiazepoxide HCl (Librium -) 10 mg PO Q4H PRN PRN Reason: WITHDRAWAL(CONT SUBST) Stop: 05/01/20 08:07 Chlordiazepoxide HCl (Librium -) 10 mg PO ONCE@0500 ONE Stop: 04/29/20 05:01 Ciprofloxacin (Ciloxan 0.3% Eye Drops -) 2 drop NR BID [facility] Last Admin: 04/28/20 09:45 Dose: 2 drop Documented by: Enoxaparin Sodium (Lovenox -) 40 mg SQ DAILY [facility] Last Admin: 04/28/20 09:44 Dose: 40 mg Documented by: Folic Acid (Folic Acid -) 1 mg PO DAILY [facility] Last Admin: 04/28/20 09:44 Dose: 1 mg Documented by: Piperacillin Sod/Tazobactam (Sod 3.375 gm/ Dextrose) 50 mls @ 100 mls/hr IVPB Q8H-IV GONZALEZ; Protocol Last Admin: 04/28/20 09:44 Dose: 100 mls/hr Documented by: Ketorolac Tromethamine (Toradol Injection -) 15 mg IVPUSH Q6H PRN PRN Reason: PAIN LEVEL 6-10 Stop: 05/02/20 11:05 Last Admin: 04/28/20 05:13 Dose: 15 mg Documented by: Methadone HCl (Dolophine -) 5 mg PO ONCE ONE Stop: 04/29/20 08:01 Thiamine HCl (Vitamin B1 -) 100 mg PO DAILY [facility] Last Admin: 04/28/20 09:44 Dose: 100 mg Documented by: Vancomycin HCl (Vancomycin (Pre-Docked)) 1,000 mg IVPB Q12H GONZALEZ; Protocol - Objective Vital Signs: Vital Signs Temperature 97.5 F L 04/28/20 06:00 Pulse Rate 83 04/28/20 06:00 Respiratory Rate 20 04/28/20 06:00 Blood Pressure 90/60 04/28/20 06:00 O2 Sat by Pulse Oximetry (%) 98 04/27/20 23:00 Constitutional: Yes: Calm, Mild Distress HENT: Yes: Other (ear looks better) Cardiovascular: Yes: Regular Rate and Rhythm Respiratory: Yes: Regular, CTA Bilaterally Gastrointestinal: Yes: Normal Bowel Sounds, Soft Musculoskeletal: Yes: WNL, Other Extremities: Yes: WNL Neurological: Yes: Alert, Oriented Psychiatric: Yes: Alert, Oriented Labs: CBC, BMP 04/28/20 07:45 04/28/20 07:45 INR, PTT INR 0.84 (0.83-1.09) 04/28/20 07:45 Assessment/Plan 49-year-old female with past medical history of hepatitis C, bipolar disorder, PTSD, schizophrenia, anemia, pancreatitis transferred from [facility] where she was undergoing detox for heroin and alcohol for left ear pain and found to have acute otitis media versus mastoiditis. Acute otitis media versus mastoiditis Polysubstance abuse Hepatitis C plan continue abx ent to see the patient 'rest as per the team
[2020-04-28] MEDS: CALCIUM ACETATE 667 MG CAPSULE (FP) PO SCH ×2 (13:27→17:20)
--- NOTE | 2020-04-28 14:20 | PN ---
Physical Exam: SUBJECTIVE: Patient seen and examined at the bedside, endorses L ear pain decreased compared to yesterday, asking for stronger pain meds (Morphine/Oxy) OBJECTIVE: Vital Signs Period Temp Pulse Resp BP Sys/Moore Pulse Ox Last 24 Hr 96.5 F-98.0 F 76-83 20-20 90-129/60-94 98-98 GENERAL: The patient is awake, alert, and fully oriented, in no acute distress. HEAD: Normal with no signs of trauma. EYES: PERRL, extraocular movements intact, sclera anicteric, conjunctiva clear. No ptosis. ENT: L ear tender to touch, unable to perform complete exam due to pain NECK: Trachea midline, full range of motion, supple. LUNGS: Breath sounds equal, clear to auscultation bilaterally, no wheezes, no crackles, no accessory muscle use. HEART: Regular rate and rhythm, S1, S2 without murmur, rub or gallop. ABDOMEN: Soft, nontender, nondistended, normoactive bowel sounds, no guarding, no rebound, no hepatosplenomegaly, no masses. EXTREMITIES: 2+ pulses, warm, well-perfused, no edema. NEUROLOGICAL: Cranial nerves II through XII grossly intact. Normal speech, gait not observed. PSYCH: Normal mood, normal affect. SKIN: Multiple bruises on arms and knees Laboratory Results - last 24 hr 04/28/20 04/28/20 04/28/20 07:45 07:45 07:45 WBC 5.4 RBC 4.08 Hgb 13.5 Hct 40.1 MCV 98.1 H MCH 33.1 MCHC 33.7 RDW 14.4 Plt Count 179 D MPV 10.2 Absolute Neuts (auto) 3.1 Neutrophils % 57.7 Lymphocytes % 27.9 Monocytes % 9.1 Eosinophils % 4.5 Basophils % 0.8 Nucleated RBC % 0 PT with INR 9.90 INR 0.84 Sodium 139 Potassium 5.2 H Chloride 102 Carbon Dioxide 28 Anion Gap 9 BUN 23.7 H Creatinine 1.1 Est GFR (CKD-EPI)AfAm 68.75 Est GFR (CKD-EPI)NonAf 59.32 Random Glucose 81 Calcium 9.6 Phosphorus 6.4 H Magnesium 2.7 H Total Bilirubin 0.4 AST 38 H ALT 44 Alkaline Phosphatase 97 Total Protein 6.8 Albumin 3.2 L Active Medications Generic Name Dose Route Start Last Admin Trade Name Freq PRN Reason Stop Dose Admin Calcium Acetate 667 mg 04/28/20 12:00 04/28/20 13:27 Phoslo - PO 667 mg TIDCM GONZALEZ Administration Chlordiazepoxide HCl 25 mg 04/27/20 07:00 04/27/20 10:00 Librium - PO 04/29/20 23:59 25 mg Q4H PRN Administration WITHDRAWAL(CONT SUBST) Chlordiazepoxide HCl 10 mg 04/28/20 05:00 04/28/20 05:02 Librium - PO 04/28/20 17:01 10 mg Q12H GONZALEZ Administration Chlordiazepoxide HCl 10 mg 04/27/20 08:08 Librium - PO 05/01/20 08:07 Q4H PRN WITHDRAWAL(CONT SUBST) Chlordiazepoxide HCl 10 mg 04/29/20 05:00 Librium - PO 04/29/20 05:01 ONCE@0500 ONE Ciprofloxacin 2 drop 04/27/20 06:45 04/28/20 09:45 Ciloxan 0.3% Eye Drops - NR 2 drop BID [facility] Administration Enoxaparin Sodium 40 mg 04/27/20 10:00 04/28/20 09:44 Lovenox - SQ 40 mg DAILY GONZALEZ Administration Folic Acid 1 mg 04/27/20 10:00 04/28/20 09:44 Folic Acid - PO 1 mg DAILY [facility] Administration Gabapentin 600 mg 04/28/20 22:00 Neurontin - PO BID [facility] Piperacillin Sod/Tazobactam 50 mls @ 100 mls/hr 04/27/20 14:15 04/28/20 09:44 Sod 3.375 gm/ Dextrose IVPB 100 mls/hr Q8H-IV GONZALEZ Administration Protocol Methadone HCl 5 mg 04/29/20 08:00 Dolophine - PO 04/29/20 08:01 ONCE ONE Multivitamins/Minerals/Vitamin C 1 tab 04/29/20 10:00 Tab-A-Vit - PO DAILY [facility] Quetiapine Fumarate 300 mg 04/28/20 22:00 Seroquel - PO [facility] Thiamine HCl 100 mg 04/27/20 10:00 04/28/20 09:44 Vitamin B1 - PO 100 mg DAILY [facility] Administration Trazodone HCl 200 mg 04/28/20 22:00 Desyrel - PO HS [facility] ASSESSMENT/PLAN: 49F with PMH of Hep C, Bipolar disorder, anemia, pancreatitis, was sent from [facility] with complaints of L sided otalgia with scant clear discharge for the past 3 days, found to have otomastoiditis on CT mastoid. #Otomastoiditis - CT Mastoid: L sided mastoiditis - ENT consult placed with Dr. Orellana, spoke with service who confirmed he is aware and will see the patient - Zosyn started by ID (04/27) (Imipenem DCed), Vanco, Cipro ear drops - Ofiramev for pain (avoiding opiates due to hx of heroin abuse, avoiding NSAIDs due to CHRISTIE) #CHRISTIE - 0.8 -> 1.1, difference of 0.3 in 24H meets criteria for KDIGO Stage I CHRISTIE - Etiology unclear, PO hydration encouraged - Gfr is over 40 (68) so Zosyn dose does not need to be re-adjusted at this time - Toradol DCed #Alcohol/Heroin abuse - Librium protocol ends 04/29 - Methadone taper 10mg (04/28), 5mg (04/29) - Spoke with Dr. Amor today, possible transfer 04/29 after ENT consult #Hx of Hep C - Previously treated, will undergo repeat treatment outpatient #FEN - K 5.2, Phos 6.4, started on Phoslo TID - Regular diet #Prophylaxis - Lovenox #Dispo - Continue abx and monitor Visit type - Emergency Visit Emergency Visit: No - New Patient This patient is new to me today: No - Critical Care Critical Care patient: No ATTENDING PHYSICIAN STATEMENT I saw and evaluated the patient. I reviewed the resident's note and discussed the case with the resident. I agree with the resident's findings and plan as documented. SUBJECTIVE: OBJECTIVE: ASSESSMENT AND PLAN:
[2020-04-28] MEDS ORDERED: VANCOMYCIN 1 GM in D5W (PRE-DOCKED) 1,000 MG/250 ML IVPB SCH (15:00)
[2020-04-28] MEDS ORDERED: ACETAMINOPHEN 1000 MG/100 ML VIAL (NON FORMULARY) IVPB PRN (19:27)
[2020-04-28] MEDS ORDERED: PT OWN MED DRAWER 7, Y5N ONE (21:26)
[2020-04-28] MEDS ORDERED: traZODone HCL 100 MG TABLET (FP) PO SCH (22:00)
[2020-04-28] MEDS ORDERED: QUEtiapine FUMARATE 300 MG TABLET PO SCH (22:00)
[2020-04-28] MEDS ORDERED: traMADol HCL 50 MG TABLET PO ONE (22:10)
[2020-04-28] MEDS: GABAPENTIN 300 MG CAPSULE PO SCH (22:39)
[2020-04-29] MEDS ORDERED: DEXTROSE 5%-WATER - 50 ML IVPB ONE ×2 (02:37→10:44)
[2020-04-29] MEDS ORDERED: PIPERACILLIN/TAZOBACTAM 3.375 GM VIAL IVPB ONE ×2 (02:37→10:44)
[2020-04-29] MEDS: PIPERACILLIN/TAZOB 3.375 GM 3.375 GM in DEXTROSE 5%-WATER - 50 ML IVPB SCH ×2 (02:40→10:49)
[2020-04-29] MEDS ORDERED: chlordiazePOXIDE HCL 10 MG CAPSULE PO ONE (05:00)
[2020-04-29] MEDS ORDERED: METHADONE HCL 5 MG TABLET PO ONE (08:00)
[2020-04-29] MEDS: CALCIUM ACETATE 667 MG CAPSULE (FP) PO SCH ×2 (08:36→12:00)
--- NOTE | 2020-04-29 09:08 | PN ---
Physical Exam: SUBJECTIVE: Patient seen and examined, refused blood draw today, agitated, in pain requesting opiate medication for otalgia. She admits to hearing loss in her left ear, however slight improvement in her otalgia with the Tx. She has tremors on exam, restless, not sweating, no rigors, or fevers, or tacticle disturbances, no n/v/d, only restless. OBJECTIVE: Vital Signs Period Temp Pulse Resp BP Sys/Moore Pulse Ox Last 24 Hr 97.1 F-98.1 F 61-80 20-20 94-119/54-83 97 GENERAL: The patient is awake, alert, and fully oriented, in no acute distress. ENT:ttp of tragus and pinna, refused otoscopic exam will await for ENT eval. LUNGS: Breath sounds equal, clear to auscultation bilaterally, no wheezes, no crackles, no accessory muscle use. HEART: Regular rate and rhythm, S1, S2 without murmur, rub or gallop. ABDOMEN: Soft, nontender, nondistended. EXTREMITIES: 2+ pulses, warm, well-perfused, no edema. bruises on arms and knees b/l. NEUROLOGICAL: Normal speech, gait not observed. PSYCH: Agitated, restless. SKIN: Warm, dry, normal turgor, no rashes or lesions noted Laboratory Results - last 24 hr 04/28/20 07:45 Sodium 139 Potassium 5.2 H Chloride 102 Carbon Dioxide 28 Anion Gap 9 BUN 23.7 H Creatinine 1.1 Est GFR (CKD-EPI)AfAm 68.75 Est GFR (CKD-EPI)NonAf 59.32 Random Glucose 81 Calcium 9.6 Phosphorus 6.4 H Magnesium 2.7 H Total Bilirubin 0.4 AST 38 H ALT 44 Alkaline Phosphatase 97 Total Protein 6.8 Albumin 3.2 L Active Medications Generic Name Dose Route Start Last Admin Trade Name Freq PRN Reason Stop Dose Admin Acetaminophen 1,000 mg 04/28/20 19:27 04/28/20 20:04 Ofirmev Injection - IVPB 1,000 mg ONCE PRN Administration PAIN LEVEL 6-10 Calcium Acetate 667 mg 04/28/20 12:00 04/29/20 08:36 Phoslo - PO 667 mg TIDCM GONZALEZ Administration Chlordiazepoxide HCl 25 mg 04/27/20 07:00 04/27/20 10:00 Librium - PO 04/29/20 23:59 25 mg Q4H PRN Administration WITHDRAWAL(CONT SUBST) Chlordiazepoxide HCl 10 mg 04/27/20 08:08 Librium - PO 05/01/20 08:07 Q4H PRN WITHDRAWAL(CONT SUBST) Ciprofloxacin 2 drop 04/27/20 06:45 04/28/20 22:39 Ciloxan 0.3% Eye Drops - NR 2 drop BID GONZALEZ Administration Enoxaparin Sodium 40 mg 04/27/20 10:00 04/28/20 09:44 Lovenox - SQ 40 mg DAILY GONZALEZ Administration Folic Acid 1 mg 04/27/20 10:00 04/28/20 09:44 Folic Acid - PO 1 mg DAILY GONZALEZ Administration Gabapentin 600 mg 04/28/20 22:00 04/28/20 22:39 Neurontin - PO 600 mg BID GONZALEZ Administration Piperacillin Sod/Tazobactam 50 mls @ 100 mls/hr 04/27/20 14:15 04/29/20 02:40 Sod 3.375 gm/ Dextrose IVPB 100 mls/hr Q8H-IV GONZALEZ Administration Protocol Multivitamins/Minerals/Vitamin C 1 tab 04/29/20 10:00 Tab-A-Vit - PO DAILY GONZALEZ Quetiapine Fumarate 300 mg 04/28/20 22:00 04/28/20 23:48 Seroquel - PO 300 mg HS GONZALEZ Administration Thiamine HCl 100 mg 04/27/20 10:00 04/28/20 09:44 Vitamin B1 - PO 100 mg DAILY GONZALEZ Administration Trazodone HCl 200 mg 04/28/20 22:00 04/28/20 22:39 Desyrel - PO 200 mg HS GONZALEZ Administration ASSESSMENT/PLAN: 49F with PMH of Hep C, Bipolar disorder, anemia, pancreatitis, was sent from [facility] with complaints of L sided otalgia with scant clear discharge for the past 3 days, found to have otomastoiditis on CT mastoid. #Otomastoiditis vs Acute otitis externa - pt ttp of tragus and pinna. - CT Mastoid: L sided mastoiditis - ENT consult placed with Dr. Orellana, spoke with service who confirmed he is aware and will see the patient today after 5 PM. Likely after their recommendations if states to dc on po abx will do so and make appt for positive [facility]red[facility] rehab facility. Pt can also try methadone rehab clinic if pt wants more detox although at this time pt not requiring any more pharmacologic intervention today is last day of detox. HUANG 13 today however pt may not be a reliable historian. Discussed case with Dr. Amor. - dc'd vanco/imipenem, Zosyn started by ID (04/27) and Ciprofloxacin otic drops for otitis externa mgmt (pseudomonas coverage). - Ofirmev for pain (avoiding opiates due to hx of heroin abuse, avoiding NSAIDs due to CHRISTIE) #CHRISTIE - 0.8 -> 1.1, difference of 0.3 in 24H meets criteria for KDIGO Stage I CHRISTIE - Etiology unclear, PO hydration encouraged - Gfr is over 40 (68) so Zosyn dose does not need to be re-adjusted at this time - Toradol DCed #Alcohol/Heroin abuse - Librium protocol ends 04/29 - Methadone taper last dose -5mg today - Spoke with Dr. Amor today, will see if pt would like to go to positive direction (phone number [phone] or [phone]). - After ENT recs can be dc'd as long as not requiring IV abx. #Hx of Hep C - Previously treated, but has reoccurred due to poor medication compliance - [facility]. #FEN - K 5.2, Phos 6.4, started on Phoslo TID - Regular diet #Prophylaxis - Lovenox #Dispo - Continue abx and monitor ATTENDING PHYSICIAN STATEMENT I saw and evaluated the patient. I reviewed the resident's note and discussed the case with the resident. I agree with the resident's findings and plan as documented. SUBJECTIVE: OBJECTIVE: ASSESSMENT AND PLAN:
[2020-04-29] MEDS ORDERED: MULTIVITAMINS (DAILY MVI) TABLET (FP) PO SCH (10:00)
[2020-04-29] MEDS: ENOXAPARIN NA (PORCINE) 40 MG/0.4 ML DISP.SYRIN SQ SCH (10:48)
[2020-04-29] MEDS: FOLIC ACID 1 MG TABLET (FP) PO SCH (10:49)
[2020-04-29] MEDS: GABAPENTIN 300 MG CAPSULE PO SCH (10:49)
[2020-04-29] MEDS: THIAMINE HCL 100 MG TABLET (FP) PO SCH (10:50)
[2020-04-29] MEDS: CIPROFLOXACIN HCL 0.3% OPHTH 2.5ML BOTTLE NR SCH (10:52)
[2020-04-29] MEDS ORDERED: chlordiazePOXIDE 5 MG CAPSULE ONE (11:17)
--- NOTE | 2020-04-29 12:11 | PN ---
Teaching Attending Note Name of Resident: Delfino Urrutia ATTENDING PHYSICIAN STATEMENT I saw and evaluated the patient. I reviewed the resident's note and discussed the case with the resident. I agree with the resident's findings and plan as documented. SUBJECTIVE: Complains of L ear pain and hearing impairment. No fever/chills. No headache/visual disturbance/limb numbness/weakness. Asking for stronger pain meds. Verbally aggressive and abusive. OBJECTIVE: Afebrile, Hemodynamically Stable. Last Vital Signs Temp Pulse Resp BP Pulse Ox 97.8 F 76 20 94/54 L 97 04/29/20 06:00 04/29/20 06:00 04/29/20 06:00 04/29/20 06:00 04/28/20 21:00 HEENT - Multiple piercings around mouth/lips. L pinna tenderness Heart - S1, S2, RRR Lungs - clear to auscultation Abdomen - Soft, non-tender. Bowel Sounds normal. Extremities -no edema, No calf tenderness. Neuro - AAO x 3. Tone/Power normal all extremities. Current Medications Generic Name Dose Route Start Last Admin Trade Name Freq PRN Reason Stop Dose Admin Acetaminophen 1,000 mg 04/28/20 19:27 04/28/20 20:04 Ofirmev Injection - IVPB 1,000 mg ONCE PRN Administration PAIN LEVEL 6-10 Calcium Acetate 667 mg 04/28/20 12:00 04/29/20 08:36 Phoslo - PO 667 mg TIDCM GONZALEZ Administration Chlordiazepoxide HCl 25 mg 04/27/20 07:00 04/27/20 10:00 Librium - PO 04/29/20 23:59 25 mg Q4H PRN Administration WITHDRAWAL(CONT SUBST) Chlordiazepoxide HCl 10 mg 04/27/20 08:08 04/29/20 11:20 Librium - PO 05/01/20 08:07 10 mg Q4H PRN Administration WITHDRAWAL(CONT SUBST) Ciprofloxacin 2 drop 04/27/20 06:45 04/29/20 10:52 Ciloxan 0.3% Eye Drops - NR 2 drop BID GONZALEZ Administration Enoxaparin Sodium 40 mg 04/27/20 10:00 04/29/20 10:48 Lovenox - SQ 40 mg DAILY GONZALEZ Administration Folic Acid 1 mg 04/27/20 10:00 04/29/20 10:49 Folic Acid - PO 1 mg DAILY GONZALEZ Administration Gabapentin 600 mg 04/28/20 22:00 04/29/20 10:49 Neurontin - PO 600 mg BID GONZALEZ Administration Piperacillin Sod/Tazobactam 50 mls @ 100 mls/hr 04/27/20 14:15 04/29/20 10:49 Sod 3.375 gm/ Dextrose IVPB 100 mls/hr Q8H-IV GONZALEZ Administration Protocol Multivitamins/Minerals/Vitamin C 1 tab 04/29/20 10:00 04/29/20 10:49 Tab-A-Vit - PO 1 tab DAILY GONZALEZ Administration Quetiapine Fumarate 300 mg 04/28/20 22:00 04/28/20 23:48 Seroquel - PO 300 mg HS GONZALEZ Administration Thiamine HCl 100 mg 04/27/20 10:00 04/29/20 10:50 Vitamin B1 - PO 100 mg DAILY GONZALEZ Administration Trazodone HCl 200 mg 04/28/20 22:00 04/28/20 22:39 Desyrel - PO 200 mg HS GONZALEZ Administration Home Medications Medication Instructions Recorded traZODone HCL [Trazodone HCl] 200 mg PO HS 04/03/19 Gabapentin [Neurontin] 600 mg PO BID 07/06/19 Quetiapine Fumarate [Seroquel -] 300 mg PO HS 07/17/19 Multivitamins [Multivit ([facility] 1 tab PO DAILY 04/28/20 Formulary)] ASSESSMENT AND PLAN: 49 year old female with history of Hepatitis C, Bipolar Disorder, PTSD, Schizophrenia, Anemia, Pancreatitis, transferred from [facility] where she was undergoing detox for heroin and alcohol, with complaints of Left ear pain and found to have acute otitis media versus mastoiditis. 1. Acute Otitis Media/Externa +/- Mastoiditis. CT Head - possible mastoiditis Failed out-patient therapy. Initially placed on Vancomycin/Imipenem - transitioned to Zosyn and Cipro otic drops. Awaiting ENT eval. 2. Polysubstance abuse - completing Opiate withdrawal protocol today with Methadone. Discussed with addiction medicine - for further out-patient support with referral to [facility]. 3. Hepatitis C - never completed Rx - for [facility] follow up on discharge. 4. Bipolar Disorder/PTSD/Schizophrenia - Continue Seroquel and Trazodone. DVT Px - Lovenox SQ
[2020-04-29] MEDS ORDERED: ACETAMINOPHEN 325 MG TABLET (FP) PO PRN (12:17)
[2020-04-29 12:32] LABS: BASO % 0.6 % (0-2.0); EOS % 2.8 % (0-4.5); HEMATOCRIT 40.7 % (32.4-45.2); HEMOGLOBIN 13.7 GM/dL (10.7-15.3); LYMPH % 16.6 % (8-40); MCH 33.4 pg (25.7-33.7); MCHC 33.6 g/dl (32.0-36.0); MEAN CELL VOLUME 99.6 fl (80-96); MEAN PLT VOLUME 10.4 fl (7.5-11.1); MONO % 5.2 % (3.8-10.2); NEUT % 74.8 % (42.8-82.8); PLATELET COUNT 179 K/MM3 (134-434); RBC 4.08 M/mm3 (3.60-5.2); RDW 14.1 % (11.6-15.6); WHITE BLOOD COUNT 8.5 K/mm3 (4.0-10.0)
[2020-04-29 12:57] LABS: ALBUMIN 3.5 g/dl (3.4-5.0); BILIRUBIN,TOTAL 0.3 mg/dL (0.2-1); CALCIUM 9.9 mg/dL (8.5-10.1); CREATININE 1.1 mg/dL (0.55-1.3); MAGNESIUM 2.3 mg/dL (1.8-2.4); PHOSPHOROUS 4.8 mg/dL (2.5-4.9)
--- NOTE | 2020-04-29 13:26 | CONSULT ---
Consult - text type - Consultation Consultation Note: ENT consult 49 yo woman without previous ear problems experienced sudden left ear pain, swelling, drainage, and hearing loss several days ago. The pain/swelling/drainage are improving on topical and IV abx. Still not hearing well. CT shows scattered soft tissue density in the left middle ear and mastoid areas without evidence of coalescence. She has not had a fever during her hospital course, and blood cultures were negative. WBC has been normal. P/WD thin female sitting comfortably in bed, in NAD Meraz to the left 512 Hz Left ear canal is moderately edematous and tender with purulent discharge. Left TM is poorly seen, opaque, moist, no erythema or bulging. Left mastoid process is tender without erythema or swelling. Imp: Left acute otitis externa, improving. This is not clinically a case of acute otitis media or mastoiditis, despite the radiologic findings, which may be incidental to the otitis externa. Recommend: continuing topical abx for another week, and outpatient ENT follow up if hearing does not return to baseline, or if any of her other ear symptoms persist. Reconsult if worsens.
--- NOTE | 2020-04-29 14:20 | PN ---
Progress Note, Physician History of Present Illness: patient feeling better ent note noted - Current Medication List Current Medications: Active Medications Acetaminophen (Tylenol -) 650 mg PO Q6H PRN PRN Reason: PAIN LEVEL 1-5 Last Admin: 04/29/20 12:46 Dose: 650 mg Documented by: Chlordiazepoxide HCl (Librium -) 25 mg PO Q4H PRN PRN Reason: WITHDRAWAL(CONT SUBST) Stop: 04/29/20 23:59 Last Admin: 04/27/20 10:00 Dose: 25 mg Documented by: Chlordiazepoxide HCl (Librium -) 10 mg PO Q4H PRN PRN Reason: WITHDRAWAL(CONT SUBST) Stop: 05/01/20 08:07 Last Admin: 04/29/20 11:20 Dose: 10 mg Documented by: Ciprofloxacin (Ciloxan 0.3% Eye Drops -) 2 drop NR BID [facility] Last Admin: 04/29/20 10:52 Dose: 2 drop Documented by: Enoxaparin Sodium (Lovenox -) 40 mg SQ DAILY [facility] Last Admin: 04/29/20 10:48 Dose: 40 mg Documented by: Folic Acid (Folic Acid -) 1 mg PO DAILY [facility] Last Admin: 04/29/20 10:49 Dose: 1 mg Documented by: Gabapentin (Neurontin -) 600 mg PO BID [facility] Last Admin: 04/29/20 10:49 Dose: 600 mg Documented by: Piperacillin Sod/Tazobactam (Sod 3.375 gm/ Dextrose) 50 mls @ 100 mls/hr IVPB Q8H-IV GONZALEZ; Protocol Last Admin: 04/29/20 10:49 Dose: 100 mls/hr Documented by: Multivitamins/Minerals/Vitamin C (Tab-A-Vit -) 1 tab PO DAILY [facility] Last Admin: 04/29/20 10:49 Dose: 1 tab Documented by: Quetiapine Fumarate (Seroquel -) 300 mg PO [facility] Last Admin: 04/28/20 23:48 Dose: 300 mg Documented by: Thiamine HCl (Vitamin B1 -) 100 mg PO DAILY [facility] Last Admin: 04/29/20 10:50 Dose: 100 mg Documented by: Trazodone HCl (Desyrel -) 200 mg PO HS [facility] Last Admin: 04/28/20 22:39 Dose: 200 mg Documented by: - Objective Vital Signs: Vital Signs Temperature 97.7 F 06/30/20 08:00 Pulse Rate 88 04/29/20 08:00 Respiratory Rate 15 04/29/20 08:00 Blood Pressure 93/58 L 04/29/20 08:00 O2 Sat by Pulse Oximetry (%) 95 04/29/20 09:00 Constitutional: Yes: No Distress, Calm HENT: Yes: Other (ear without pain now) Cardiovascular: Yes: S1, S2 Respiratory: Yes: Regular, CTA Bilaterally Gastrointestinal: Yes: Normal Bowel Sounds, Soft Musculoskeletal: Yes: WNL Extremities: Yes: WNL Neurological: Yes: Alert, Oriented Psychiatric: Yes: Alert, Oriented Labs: CBC, BMP 04/29/20 11:59 04/29/20 11:59 INR, PTT INR 0.84 (0.83-1.09) 04/28/20 07:45 Assessment/Plan 49-year-old female with past medical history of hepatitis C, bipolar disorder, PTSD, schizophrenia, anemia, pancreatitis transferred from [facility] where she was undergoing detox for heroin and alcohol for left ear pain and found to have acute otitis media versus mastoiditis. Acute otitis media versus mastoiditis Polysubstance abuse Hepatitis C ent note noted with local ear drops i would give patient oral augmentin for 5 more days she can be transitioned to oral rest as per the team
[2020-04-29 15:27] VITALS: BP 97/61; PULSE 92; TEMP 97.5
--- NOTE | 2020-04-29 17:11 | DS ---
Physical Exam: SUBJECTIVE: Patient seen and examined, refused blood draw today, agitated, in pain requesting opiate medication for otalgia. She admits to hearing loss in her left ear, however slight improvement in her otalgia with the Tx. She has tremors on exam, restless, not sweating, no rigors, or fevers, or tacticle disturbances, no n/v/d, only restless. OBJECTIVE: Vital Signs Period Temp Pulse Resp BP Sys/Moore Pulse Ox Last 24 Hr 97.1 F-97.8 F 61-92 15-20 93-119/54-83 95-97 PHYSICAL EXAM GENERAL: The patient is awake, alert, and fully oriented, in no acute distress. ENT:ttp of tragus and pinna, refused otoscopic exam. LUNGS: Breath sounds equal, clear to auscultation bilaterally, no wheezes, no crackles, no accessory muscle use. HEART: Regular rate and rhythm, S1, S2 without murmur, rub or gallop. ABDOMEN: Soft, nontender, nondistended. EXTREMITIES: 2+ pulses, warm, well-perfused, no edema. bruises on arms and knees b/l. NEUROLOGICAL: Normal speech, gait not observed. PSYCH: Agitated, restless. SKIN: Warm, dry, normal turgor, no rashes or lesions noted LABS Laboratory Results - last 24 hr 04/29/20 04/29/20 11:59 11:59 WBC 8.5 RBC 4.08 Hgb 13.7 Hct 40.7 MCV 99.6 H MCH 33.4 MCHC 33.6 RDW 14.1 Plt Count 179 MPV 10.4 Absolute Neuts (auto) 6.3 Neutrophils % 74.8 D Lymphocytes % 16.6 D Monocytes % 5.2 Eosinophils % 2.8 Basophils % 0.6 Nucleated RBC % 0 Sodium 135 L Potassium 5.0 Chloride 101 Carbon Dioxide 25 Anion Gap 9 BUN 24.0 H Creatinine 1.1 Est GFR (CKD-EPI)AfAm 68.75 Est GFR (CKD-EPI)NonAf 59.32 Random Glucose 92 Calcium 9.9 Phosphorus 4.8 Magnesium 2.3 Total Bilirubin 0.3 AST 46 H ALT 52 Alkaline Phosphatase 101 Total Protein 7.0 Albumin 3.5 HOSPITAL COURSE: Date of Admission:04/27/20 49F with PMH of Hep C, Bipolar disorder, anemia, pancreatitis, was sent from [facility] with complaints of L sided otalgia with scant clear discharge for 3 days, found to have Lt sided otomastoiditis on CT mastoid and admitted for that as well as heroin/ETOH detox. Pt was placed on Vanco/imipenem initially and changed to zosyn (04/27) received two more days in addition to cipro otic drops. ENT consult placed with Dr. Orellana, stating its likely otitis externa and recommends otic cipro drops for 7 days and ID recommended augmentin for 5 days. Pt was placed on methadone and librium as per detox protocol and Dr Amor made aware of this, recommending she make appt for [facility] for counseling. Pt can also try methadone rehab clinic if pt wants more detox although at this time pt not requiring any more pharmacologic intervention today is last day of detox. Discussed case with Dr. Amor. Lastly, pt had recent reocurrence for Hep C, previously treated, but has reoccurred due to poor medication compliance, will undergo repeat treatment outpatient at [facility]. Date of Discharge: 04/29/20 Minutes to complete discharge: 40 Discharge Summary Problems reviewed: Yes Reason For Visit: ALCOHOL DEPENDENCE WITH UNCOMPLICATED INTOXICATION Current Active Problems Alcohol dependence with uncomplicated intoxication (Acute) Mastoiditis (Acute) Opioid dependence (Acute) Substance use disorder (Chronic) Condition: Stable - Instructions Diet, Activity, Other Instructions: You were admitted for detoxification of your alcohol/heroin use as well as for your left ear infection. You received your medications as part of your detox protocol and no longer are in withdrawal. You were treated with antibiotics for your ear infection. You were seen by our ENT specialist (Dr. Orellana) and believes you have an outer ear infection that will improve with ear drop antibiotics. Medication to start taking: Ofloxacin ear drops left ear THREE TIMES daily for 7 days. Augmentin 875 mg by mouth twice daily for 5 days. Follow-ups: 1. You should follow up with your primary care doctor or if you do not have one you can make an appointment to see one at our clinic ([facility]) in a couple weeks to make sure your ear infection has improved. 2. An appointment has been made for you at [facility] and you should follow up with them for counseling. 3. You should follow up at [facility] for management of your hepatitis C. 4. You should follow up with your ENT doctor (Dr. Orellana) if your hearing does not improve or you're continuing to have ear pain. 5. You should follow up with Dr. Amor (account development specialist) if you would like to return to [facility]. You should continue your home medications as prescribed. You should return to the ER if you have any worsening of your ear pain, discharge from your ear, or any other worsening signs of fever, chills, short of breath. Referrals: Karlo Orellana MD [Staff Physician] - Boo Amor DO [Staff Physician] - Santiago Slater MD [Staff Physician] - Disposition: HOME - Home Medications Comprehensive Discharge Medication List: Ambulatory Orders traZODone HCL [Trazodone HCl] 200 mg PO HS 04/03/19 Gabapentin [Neurontin] 600 mg PO BID 07/06/19 Quetiapine Fumarate [Seroquel -] 400 mg PO HS 07/17/19 Multivitamins [Multivit ([facility] Formulary)] 1 tab PO DAILY 04/28/20 Ofloxacin Otic [Floxin Otic -] 2 drop TID #1 drops 04/29/20 Trazodone HCl 300 mg PO DAILY 04/29/20 This patient is new to me today: Yes Date on this admission: 04/29/20 Emergency Visit: Yes ED Registration Date: 04/27/20 Care time: The patient presented to the Emergency Department on the above date and was hospitalized for further evaluation of their emergent condition. Critical Care patient: No - Discharge Referral Referred to [facility] Med P.C.: No ATTENDING PHYSICIAN STATEMENT I saw and evaluated the patient. I reviewed the resident's note and discussed the case with the resident. I agree with the resident's findings and plan as documented. SUBJECTIVE: OBJECTIVE: ASSESSMENT AND PLAN:
== END 2020-04-29 17:40 | disposition other institution (70) | DRG 115 ==
LOC: JER 00:38 → JERBED 04:49 → J5S 20:27
PROVIDERS: ADMIT Internal Medicine
DX: H60.502 Unspecified acute noninfective otitis externa, left ear (principal); N17.9 Acute kidney failure, unspecified; F20.9 Schizophrenia, unspecified; H70.002 Acute mastoiditis without complications, left ear; K86.1 Other chronic pancreatitis; S09.22XA Traumatic rupture of left ear drum, initial encounter; F11.10 Opioid abuse, uncomplicated; B19.20 Unspecified viral hepatitis C without hepatic coma; F31.9 Bipolar disorder, unspecified; F43.10 Post-traumatic stress disorder, unspecified; F10.20 Alcohol dependence, uncomplicated; F12.20 Cannabis dependence, uncomplicated; X58.XXXA Exposure to other specified factors, initial encounter; Y93.9 Activity, unspecified; Y92.89 Other specified places as the place of occurrence of the external cause; Y99.9 Unspecified external cause status
CPT/HCPCS: 36415; 70480-TC; 80053; 83735; 84100; 85025; 85610; 87040; 93005; 93010; 99285-25; J0131

== ENCOUNTER 2020-05-04 13:58 | Emergency (ER) | payer OTHER ==
[2020-05-04 14:19] VITALS: TEMP 98.5; BMI 27.3
--- NOTE | 2020-05-04 15:01 | PDOC ---
Documentation entered by Harriet Abdul SCRIBE, acting as scribe for Avril Santos MD. Avril Santos MD: This documentation has been prepared by the scribe, Harriet Abdul SCRIBE, under my direction and personally reviewed by me in its entirety. I confirm that the documentation accurately reflects all work, treatment, procedures, and medical decision making performed by me. Attending Attestation - Resident Resident Name: LeonZuri - ED Attending Attestation I have performed the following: I have examined & evaluated the patient, The case was reviewed & discussed with the resident, I agree w/resident's findings & plan, Exceptions are as noted - HPI HPI: 49 yo F history HCV, bipolar, PTSD, schizophrenia, anemia, pancreatitis presents s/p overdose. She states she was just discharged from detox, where she was treated for alcohol and heroin dependence. 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 She states her significant other did not have narcan, so called 911. She was given narcan by EMS en route. Denies any complaints at present. - Physicial Exam PE: GENERAL: Somnolent, awakens to voice, in no acute distress HEAD: No signs of trauma EYES: PERRLA, EOMI, sclera anicteric, conjunctiva clear ENT: Auricles normal inspection, hearing grossly normal, nares patent, oropharynx clear without exudates. Moist mucosa NECK: Normal ROM, supple, no lymphadenopathy, JVD, or masses LUNGS: Breath sounds equal, clear to auscultation bilaterally. No wheezes, and no crackles HEART: Regular rate and rhythm, normal S1 and S2, no murmurs, rubs or gallops ABDOMEN: Soft, nontender, normoactive bowel sounds. No guarding, no rebound. No masses EXTREMITIES: Normal range of motion, no edema. No clubbing or cyanosis. No cords, erythema, or tenderness NEUROLOGICAL: Cranial nerves II through XII grossly intact. Normal speech. Motor and sensation intact SKIN: Warm, dry, normal turgor, no rashes or lesions noted. - Medical Decision Making Pt presents s/p heroin overdose, given narcan en route. Will observe in ED. Discharge - Discharge Information Problems reviewed: Yes Clinical Impression/Diagnosis: Opioid overdose Qualifiers: Encounter type: initial encounter Injury intent: undetermined intent Qualified Code(s): T40.2X4A - Poisoning by other opioids, undetermined, initial encounter Condition: Improved Disposition: HOME - Follow up/Referral Referrals: [facility] [place] [facility] at [place] [Provider Group] - Patient Discharge Instructions Patient Printed Discharge Instructions: Opioid Addiction Additional Instructions: You came into the ER after overdosing on heroin. We watched you in the ER until you were sober. Please try your best not to abuse drugs and never overdose on heroin again. If you feel the need to do drugs come into the ER and we will help you out. As discussed, please make sure to follow up with your primary care doctor tomorrow. Come back to the ER immediately with any new or worsening concerns. Thank you for coming to the [facility] ER We hope you feel better soon! Print Language: GERMAN - Post Discharge Activity Work/Back to School Note: My Personal Safety Plan
--- NOTE | 2020-05-04 15:15 | PDOC ---
History of Present Illness - General Chief Complaint: Overdose Stated Complaint: OVERDOSE Time Seen by Provider: 05/04/20 14:47 - History of Present Illness Initial Comments: 05/04/20 15:12 Pt is a 49y F with a PMH of polysubstance abuse (heroin, alcohol, marijuana), bipolar d/o, PTSD, pancreatitis, Hepatitis C, presents following heroin overdose. Pt was given intranasal narcan by prior to EMS arrival. Pt states that this was her first time using heroin since her recent discharge from hospital. Reports 3 past episodes of overdoses, last overdose was about 2 months ago, has been to rehab multiple times. Reports SOB, denies f/c, n/v, chest pain, coughing, abdominal pain, constipation. Also reports left foot numbness. Past History - Medical History Allergies/Adverse Reactions: Allergies Allergy/AdvReac Type Severity Reaction Status Date / Time metoclopramide HCl Allergy Severe dystonic Verified 05/04/20 14:19 [From Reglan] reaction prochlorperazine maleate Allergy Severe DYSTONIA Verified 05/04/20 14:19 [From Compazine] haloperidol [From Haldol] Allergy Verified 05/04/20 14:19 mirtazapine [From Remeron] AdvReac Severe Difficulty Verified 05/04/20 14:19 Breathing Home Medications: Ambulatory Orders traZODone HCL [Trazodone HCl] 200 mg PO HS 04/03/19 Gabapentin [Neurontin] 600 mg PO BID 07/06/19 Quetiapine Fumarate [Seroquel -] 400 mg PO HS 07/17/19 Multivitamins [Multivit ([facility] Formulary)] 1 tab PO DAILY 04/28/20 Amoxicillin/Potassium Clav [Augmentin 875-125 Tablet] 1 each PO BID 5 Days #10 tablet 04/29/20 Ofloxacin Otic [Floxin Otic -] 2 drop TID #1 drops 04/29/20 Trazodone HCl 300 mg PO DAILY 04/29/20 Anemia: Yes (as a teen, had iron and transfusions) Asthma: Yes Cancer: No Cardiac Disorders: No CVA: No COPD: No CHF: No Dementia: No Diabetes: No GI Disorders: No Disorders: No HTN: No Hypercholesterolemia: No Kidney Stones: No Liver Disease: Yes (hepatitis C) Psychiatric Problems: Yes (PTSD, bi-polar, depression, pschizophrenia) Seizures: No Thyroid Disease: No - Surgical History Abdominal Surgery: No Appendectomy: No Cardiac Surgery: No Cholecystectomy: No Lung Surgery: No Neurologic Surgery: No Orthopedic Surgery: No - Reproductive History (#): 13 Para: 11 PID: No - Immunization History TDAP Vaccination: Yes Immunization Up to Date: No - Psycho-Social/Smoking History Smoking History: Current every day smoker Have you smoked in the past 12 months: Yes Number of Cigarettes Smoked Daily: 3 Cigars Per Day: 0 Information on smoking cessation initiated: No 'Breaking Loose' booklet given: 04/27/20 - Substance Abuse Hx (Audit-C & DAST Scrn) How often the patient has a drink containing alcohol: 4 0r more times/wk Number of drinks the patient has on a typical day: 1 or 2 How often the patient has six or more drinks on one occasion: Daily or almost daily Score: In Men: 4 or > Positive; In Women: 3 or > Positive: 8 Screen Result (Pos requires Nsg. Audit-10AR): Positive In the last yr the pt used illegal drug/Rx for NonMed reason: Yes Score: Yes response is considered Positive: 1 Screen Result (Positive result requires Nsg. DAST-10): Positive Review of Systems - Review of Systems Comments:: ROS Constitutional: Denies fevers, chills Respiratory: Reports SOB. Denies: Cough, Wheezing Cardiac (ROS): Denies Chest Pain, Palpitations, Edema GI: Denies abdominal pain, n/v, constipation Neurological: Denies Headache, tingling, weakness *Physical Exam - Vital Signs Last Vital Signs Temp Pulse Resp BP Pulse Ox 98.5 F 96 H 20 117/92 95 05/04/20 14:16 05/04/20 14:16 05/04/20 14:16 05/04/20 14:16 05/04/20 14:16 - Physical Exam PE: General: AAOX4, in no acute distress, well developed, well nourished Head: normocephalic Eyes: PERRL, anicteric sclera, EOM grossly intact Lung: equal breath sounds b/l, CTA b/l, no crackles, wheezes Heart: RRR, normal S1, S2, no murmurs, rubs, gallops Abdomen: soft, non tender, no guarding, rebound, masses Extremities: no edema, DP pulses 2+ and symmetric Neuro: Sensation intact in b/l feet, motor strength 5/5 in b/l feet Skin: warm, dry 05/04/20 17:22 Medical Decision Making - Medical Decision Making Pt is a 49y F with a PMH of polysubstance abuse (heroin, alcohol, marijuana), bipolar d/o, PTSD, pancreatitis, Hepatitis C, presents following heroin overdose. Pt was given intranasal narcan by prior to EMS arrival. Vital Signs Temp Pulse Resp BP Pulse Ox 98.5 F 74 12 117/92 96 05/04/20 14:16 05/04/20 16:27 05/04/20 16:27 05/04/20 14:16 05/04/20 16:27 DDx: opiate overdose, aspiration pneumonia Plan: - observe - give narcan if patient de saturates MDM - Pt was satting <92%,started on 2L O2, patient sleeping but arousable with conversation -05/04/20 16:54 - pt endorses L foot pain, given tylenol with improvement in pain - patient satting >94% on room air, awake, alert, tolerating PO - patient is aox4, aware she is in ER, remorseful for heroin overdose, states she plans on abiding by detox and avoiding drugs and plans on starting suboxone clinic tomorrow, she has appt with primary care provider tomorrow, pt requests to be discharged home Disposition Discharge to home Discharge - Discharge Information Problems reviewed: Yes Clinical Impression/Diagnosis: Opioid overdose Qualifiers: Encounter type: initial encounter Injury intent: undetermined intent Qualified Code(s): T40.2X4A - Poisoning by other opioids, undetermined, initial encounter Condition: Improved Disposition: HOME - Admission No - Follow up/Referral Referrals: [facility] [place] [facility] at [place] [Provider Group] - Patient Discharge Instructions Patient Printed Discharge Instructions: Opioid Addiction Additional Instructions: You came into the ER after overdosing on heroin. We watched you in the ER until you were sober. Please try your best not to abuse drugs and never overdose on heroin again. If you feel the need to do drugs come into the ER and we will help you out. As discussed, please make sure to follow up with your primary care doctor tomorrow. Come back to the ER immediately with any new or worsening concerns. Thank you for coming to the [place] ER We hope you feel better soon! Print Language: SWAZI - Post Discharge Activity Work/Back to School Note: My Personal Safety Plan
[2020-05-04] MEDS ORDERED: ACETAMINOPHEN 325 MG TABLET (FP) PO ONE (16:53)
[2020-05-04] MEDS ORDERED: ACETAMINOPHEN 325 MG TABLET (FP) ONE (17:02)
[2020-05-04 20:13] VITALS: BP 124/76; PULSE 73
== END 2020-05-04 20:13 | disposition home or self-care (01) ==
LOC: JER 13:58
DX: T40.2X4A Poisoning by other opioids, undetermined, initial encounter (principal)
CPT/HCPCS: 99284-25

== ENCOUNTER 2020-05-06 11:20 | Emergency (ER) | payer OTHER ==
--- NOTE | 2020-05-06 11:29 | PDOC ---
Rapid Medical Evaluation Time Seen by Provider: 05/06/20 11:23 Medical Evaluation: Allergies Allergy/AdvReac Type Severity Reaction Status Date / Time metoclopramide HCl Allergy Severe dystonic Verified 05/04/20 14:19 [From Reglan] reaction prochlorperazine maleate Allergy Severe DYSTONIA Verified 05/04/20 14:19 [From Compazine] haloperidol [From Haldol] Allergy Verified 05/04/20 14:19 mirtazapine [From Remeron] AdvReac Severe Difficulty Verified 05/04/20 14:19 Breathing 05/06/20 11:25 CC: continual left leg numbness x 3 days , now with skin discoloration , states difficulty with ambulation Exam: ambulatory with limp, decreased sensation to left foot and tender to left calf, decreased strength with dorsiflexion Plan: needs complete neuro assessment Discharge Disposition - Diagnosis Leg weakness - Referrals - Patient Instructions - Post Discharge Activity
[2020-05-06 11:30] VITALS: BP 146/83; PULSE 104; TEMP 98.4; BMI 24.9
--- NOTE | 2020-05-06 13:25 | PDOC ---
History of Present Illness - General Chief Complaint: Bone Injury Stated Complaint: LEG NUMBNESS Time Seen by Provider: 05/06/20 11:23 - History of Present Illness Initial Comments: 05/06/20 13:39 49-year-old female denies comorbidities presents for evaluation of left lower extremity numbness and inability to bear weightX2 days Past History - Medical History Allergies/Adverse Reactions: Allergies Allergy/AdvReac Type Severity Reaction Status Date / Time metoclopramide HCl Allergy Severe dystonic Verified 05/04/20 14:19 [From Reglan] reaction prochlorperazine maleate Allergy Severe DYSTONIA Verified 05/04/20 14:19 [From Compazine] haloperidol [From Haldol] Allergy Verified 05/04/20 14:19 mirtazapine [From Remeron] AdvReac Severe Difficulty Verified 05/04/20 14:19 Breathing Home Medications: Ambulatory Orders traZODone HCL [Trazodone HCl] 200 mg PO HS 04/03/19 Gabapentin [Neurontin] 600 mg PO BID 07/06/19 Quetiapine Fumarate [Seroquel -] 400 mg PO HS 07/17/19 Multivitamins [Multivit ([facility] Formulary)] 1 tab PO DAILY 04/28/20 Amoxicillin/Potassium Clav [Augmentin 875-125 Tablet] 1 each PO BID 5 Days #10 tablet 04/29/20 Ofloxacin Otic [Floxin Otic -] 2 drop TID #1 drops 04/29/20 Trazodone HCl 300 mg PO DAILY 04/29/20 Anemia: Yes (as a teen, had iron and transfusions) Asthma: Yes Cancer: No Cardiac Disorders: No CVA: No COPD: No CHF: No Dementia: No Diabetes: No GI Disorders: No Disorders: No HTN: No Hypercholesterolemia: No Kidney Stones: No Liver Disease: Yes (hepatitis C) Psychiatric Problems: Yes (PTSD, bi-polar, depression, pschizophrenia) Seizures: No Thyroid Disease: No - Surgical History Abdominal Surgery: No Appendectomy: No Cardiac Surgery: No Cholecystectomy: No Lung Surgery: No Neurologic Surgery: No Orthopedic Surgery: No - Reproductive History (#): 13 Para: 11 PID: No - Immunization History TDAP Vaccination: Yes Immunization Up to Date: No - Psycho-Social/Smoking History Smoking History: Current every day smoker Have you smoked in the past 12 months: No Number of Cigarettes Smoked Daily: 3 Cigars Per Day: 0 Information on smoking cessation initiated: No 'Breaking Loose' booklet given: 04/27/20 - Substance Abuse Hx (Audit-C & DAST Scrn) How often the patient has a drink containing alcohol: 2-3 times / week Number of drinks the patient has on a typical day: 1 or 2 How often the patient has six or more drinks on one occasion: Daily or almost daily Score: In Men: 4 or > Positive; In Women: 3 or > Positive: 7 Screen Result (Pos requires Nsg. Audit-10AR): Positive In the last yr the pt used illegal drug/Rx for NonMed reason: No Score: Yes response is considered Positive: 0 Screen Result (Positive result requires Nsg. DAST-10): Negative Review of Systems - Review of Systems Neurological: Yes: Numbness, Weakness *Physical Exam - Vital Signs Last Vital Signs Temp Pulse Resp BP Pulse Ox 98.4 F 104 H 16 146/83 95 05/06/20 11:27 05/06/20 11:27 05/06/20 11:27 05/06/20 11:27 05/06/20 11:27 - Physical Exam 05/06/20 13:39 Decreased sensation at the dorsum of the left foot thigh and calf are soft and nontender. There is mild ecchymosis on the anterior aspect of the left up about the distal third. 2 out of 5 dorsiflexion 4 out of 5 plantarflexion. Negative straight leg raise test ED Treatment Course - RADIOLOGY Radiology Studies Ordered: Category Date Time Status DUPLEX VASCUL US-1 LEG [US] Stat Ultrasound 05/06/20 11:42 Completed Medical Decision Making - Medical Decision Making 05/06/20 13:25 neuro called 05/06/20 13:[address] Prabhu Berry from neurology. Patient to be nonweightbearing with crutches and follow-up with neurology in 2 to 3 days without fail I have reviewed the pathophysiology with the patient. They are in agreement with the treatment plan all questions were answered to their satisfaction. Understanding for follow-up without fail was also conveyed to the patient. Again they are in agreement. 05/06/20 13:40 This patient has an acute drop foot I will get her neurology follow-up. Keep her nonweightbearing with crutches. Discharge - Discharge Information Problems reviewed: Yes Clinical Impression/Diagnosis: Leg weakness, Foot drop, left Condition: Stable Disposition: HOME - Admission No - Follow up/Referral Referrals: Namrata Arce FNP [Primary Care Provider] - Donnell Merritt MD [Staff Physician] - - Patient Discharge Instructions Additional Instructions: Remain nonweightbearing on your left lower extremity with crutches. You may use stairs if you are comfortable however an elevator would be better. Return to the emergency room for further issues and without fail follow-up with neurology as we discussed in the next 1 to 2 days. - Post Discharge Activity
== END 2020-05-06 14:03 | disposition home or self-care (01) ==
LOC: JER 11:20 → SUPCPDRO 11:20 → JER 14:03
DX: R53.1 Weakness (principal); M21.372 Foot drop, left foot
CPT/HCPCS: 93971-TC; 99284-25

== ENCOUNTER 2021-09-07 08:23 | Emergency (ER) | payer OTHER ==
[2021-09-07 08:47] VITALS: BP 149/98; PULSE 110; TEMP 97.8; BMI 31.1
== END 2021-09-07 09:29 | disposition home or self-care (01) ==
LOC: JERFT 08:23 → JER 08:23 → JERFT 09:29
DX: L20.9 Atopic dermatitis, unspecified (principal)
CPT/HCPCS: 99283-25

== ENCOUNTER 2021-10-05 06:04 | Emergency (ER) | payer OTHER ==
[2021-10-05] MEDS ORDERED: ACETAMINOPHEN 1000 MG/100 ML VIAL IVPB ONE (06:30)
[2021-10-05 06:46] VITALS: BP 130/101; PULSE 133; TEMP 99.1; BMI 31.1
[2021-10-05] MEDS ORDERED: ONDANSETRON 4 MG/2 ML VIAL IVPUSH ONE (07:28)
[2021-10-05] MEDS ORDERED: ONDANSETRON 4 MG/2 ML VIAL ONE (07:30)
[2021-10-05] MEDS ORDERED: ACETAMINOPHEN INJECTION 100 ML IVPB ONE (07:30)
[2021-10-05 08:16] LABS: BASO % 0.8 % (0-2.0); EOS % 4.3 % (0-4.5); HEMATOCRIT 37.3 % (32.4-45.2); LYMPH % 30.2 % (8-40); MCH 35.9 pg (25.7-33.7); MCHC 34.8 g/dl (32.0-36.0); MEAN CELL VOLUME 103.3 fl (80-96); MEAN PLT VOLUME 9.4 fl (7.5-11.1); MONO % 9.6 % (3.8-10.2); NEUT % 55.1 % (42.8-82.8); PLATELET COUNT 151 10^3/uL (134-434); RBC 3.61 M/mm3 (3.60-5.2); WHITE BLOOD COUNT 4.8 K/mm3 (4.0-10.0)
[2021-10-05 08:31] LABS: CHLORIDE 108 mmol/L (98-107); SODIUM 140 mmol/L (136-145)
[2021-10-05 08:33] LABS: CALCIUM 9.1 mg/dL (8.5-10.1)
[2021-10-05 08:34] LABS: ALBUMIN 3.7 g/dl (3.4-5.0); ANION GAP 10 MMOL/L (8-16); BLOOD UREA NITROGEN 11.3 mg/dL (7-18); CO2 23 mmol/L (21-32); GLUCOSE,RANDOM 97 mg/dL (74-106)
[2021-10-05 08:35] LABS: MAGNESIUM 2.1 mg/dL (1.8-2.4)
[2021-10-05 08:37] LABS: SGOT/AST 40 U/L (15-37); SGPT/ALT 43 U/L (13-61)
[2021-10-05 08:39] LABS: BILIRUBIN,TOTAL 0.3 mg/dL (0.2-1); TOT PROT 7.3 g/dl (6.4-8.2)
[2021-10-05 08:40] LABS: ALK PHOS 99 U/L (45-117)
[2021-10-05] MEDS ORDERED: KETOROLAC TROMETHAMINE 30 MG/1 ML VIAL IVPUSH ONE (09:11)
[2021-10-05] MEDS ORDERED: KETOROLAC TROMETHAMINE 30 MG/1 ML VIAL ONE (10:28)
[2021-10-05] MEDS ORDERED: LIDOCAINE 5% TOPICAL PATCH TP ONE (12:20)
[2021-10-05] MEDS ORDERED: LIDOCAINE 5% TOPICAL PATCH ONE (13:02)
[2021-10-05 13:25] LABS: PH,URINE 6.5 (5.0-8.0); URINE APPEARANCE CLEAR; URINE BILIRUBIN NEGATIVE (NEGATIVE); URINE COLOR YELLOW; URINE GLUCOSE (UA) NEGATIVE (NEGATIVE); URINE KETONE NEGATIVE (NEGATIVE); URINE LEUK ESTERASE NEGATIVE (NEGATIVE); URINE NITRITE NEGATIVE (NEGATIVE); URINE PROTEIN NEGATIVE (NEGATIVE); URINE UROBILINOGEN 0.2 mg/dL (0.2-1.0)
[2021-10-05] MEDS ORDERED: FAMOTIDINE 10 MG TABLET PO ONE (13:54)
[2021-10-05] MEDS ORDERED: FAMOTIDINE 10 MG TABLET ONE (14:28)
[2021-10-05] MEDS ORDERED: LIDOCAINE PATCH REMOVAL MC ONE (22:00)
== END 2021-10-05 14:30 | disposition left against medical advice (07) ==
LOC: JER 06:04
PROC: 3E0333Z Introduction of Anti-inflammatory into Peripheral Vein, Percutaneous Approach (ICD-10-PCS; principal; 2021-10-05)
PROC: 3E0333Z Introduction of Anti-inflammatory into Peripheral Vein, Percutaneous Approach (ICD-10-PCS; 2021-10-05)
PROC: 3E033GC Introduction of Other Therapeutic Substance into Peripheral Vein, Percutaneous Approach (ICD-10-PCS; 2021-10-05)
DX: R55 Syncope and collapse (principal); R91.1 Solitary pulmonary nodule
CPT/HCPCS: 36415; 71045-TC-FY; 71275-TC; 72170-TC-FY; 73564-TC-RT-FY; 73700-TC-RT; 80053; 81003; 82550; 83735; 84484; 84703; 85025; 87086; 93005; 93010; 99285-25; C9803; J0131; Q9967; U0003; U0005

== ENCOUNTER 2022-04-11 21:04 | Emergency (ER) | payer OTHER ==
[2022-04-11 21:11] VITALS: BP 90/66; TEMP 97.9; BMI 30.9
[2022-04-11 22:45] VITALS: PULSE 98
== END 2022-04-11 22:55 | disposition home or self-care (01) ==
LOC: JERFT 21:04
DX: S69.92XA Unspecified injury of left wrist, hand and finger(s), initial encounter (principal); Y99.9 Unspecified external cause status
CPT/HCPCS: 73130-TC-LT-FY; 99283-25

== ENCOUNTER 2022-05-16 20:24 | Inpatient (IN) | payer OTHER ==
[2022-05-16] MEDS ORDERED: SODIUM CHLORIDE 0.9% 500 ML INFUS.BAG IV ONE (20:55)
[2022-05-16] MEDS ORDERED: morphine CARPU-JECT 2 MG/1 ML DISP.SYRIN IVPUSH ONE (20:57)
[2022-05-16] MEDS ORDERED: ONDANSETRON 4 MG/2 ML VIAL IVPB ONE (20:59)
[2022-05-16] MEDS ORDERED: FOLIC ACID 1 MG TABLET (FP) PO ONE (21:19)
[2022-05-16] MEDS ORDERED: THIAMINE HCL 200 MG/2 ML VIAL IVPB ONE (21:19)
[2022-05-16] MEDS ORDERED: THIAMINE HCL 200 MG/2 ML VIAL ONE (22:36)
[2022-05-16] MEDS ORDERED: FOLIC ACID 1 MG TABLET (FP) ONE (22:36)
[2022-05-16] MEDS ORDERED: ONDANSETRON 4 MG/2 ML VIAL ONE (22:37)
[2022-05-16 22:42] LABS: BASO % 0.3 % (0-2.0); EOS % 0.9 % (0-4.5); HEMATOCRIT 39.2 % (32.4-45.2); HEMOGLOBIN 13.5 GM/dL (10.7-15.3); LYMPH % 11.1 % (8-40); MCH 38.2 pg (25.7-33.7); MCHC 34.4 g/dl (32.0-36.0); MEAN CELL VOLUME 110.9 fl (80-96); MEAN PLT VOLUME 8.4 fl (7.5-11.1); NEUT % 79.7 % (42.8-82.8); PLATELET COUNT 197 10^3/uL (134-434); RBC 3.54 M/mm3 (3.60-5.2); RDW 16.7 % (11.6-15.6); WHITE BLOOD COUNT 7.6 K/mm3 (4.0-10.0)
[2022-05-16 23:06] LABS: CALCIUM 9.5 mg/dL (8.5-10.1)
[2022-05-16 23:07] LABS: ALBUMIN 3.8 g/dl (3.4-5.0); BLOOD UREA NITROGEN 5.9 mg/dL (7-18)
[2022-05-16 23:10] LABS: CREATININE 0.7 mg/dL (0.55-1.3)
[2022-05-16 23:12] LABS: BILIRUBIN,TOTAL 0.7 mg/dL (0.2-1)
[2022-05-16 23:13] LABS: TOT PROT 7.3 g/dl (6.4-8.2)
[2022-05-16 23:24] LABS: ANISOCYTOSIS 2+; MACROCYTOSIS 2+; PLATELET ESTIMATE NORMAL
[2022-05-16 23:48] LABS: EPI CELLS >36 /uL (0-25.1); HYALINE CASTS 0 /uL (0-3.1); URINE APPEARANCE CLOUDY; URINE BACTERIA 2363 /uL (0-1359); URINE BILIRUBIN NEGATIVE (NEGATIVE); URINE COLOR YELLOW; URINE GLUCOSE (UA) NEGATIVE (NEGATIVE); URINE KETONE NEGATIVE (NEGATIVE); URINE LEUK ESTERASE 3+ (NEGATIVE); URINE NITRITE NEGATIVE (NEGATIVE); URINE PROTEIN 1+ (NEGATIVE); URINE RBC 15 /uL (0-23.9); URINE WBC 1739 /uL (0-25.8)
[2022-05-17] MEDS ORDERED: ONDANSETRON 4 MG/2 ML VIAL IVPB ONE (02:44)
[2022-05-17] MEDS ORDERED: ACETAMINOPHEN 1000 MG/100 ML BAG IVPB ONE (02:44)
[2022-05-17] MEDS ORDERED: ACETAMINOPHEN INJECTION 100 ML IVPB ONE (03:10)
[2022-05-17] MEDS ORDERED: ONDANSETRON 4 MG/2 ML VIAL ONE (03:10)
[2022-05-17] MEDS ORDERED: TRIMETHOBENZAMIDE HCL 200MG/2ML INJ IM PRN (03:41)
[2022-05-17] MEDS ORDERED: LACTATED RINGERS SOLUTION 1,000 ML IV SCH (03:45)
[2022-05-17] MEDS ORDERED: KETOROLAC TROMETHAMINE 15 MG/ML VIAL IVPUSH PRN (03:45)
[2022-05-17] MEDS ORDERED: IBUPROFEN 800 MG/8 ML IJ IVPB PRN ×2 (03:46→11:47)
[2022-05-17] MEDS ORDERED: CYANOCOBALAMIN (VITAMIN B-12) 1000 MCG/1 ML VIAL IM ONE (03:49)
[2022-05-17] MEDS ORDERED: LORazepam 2 MG/ML SDV VIAL IVPUSH PRN (03:54)
[2022-05-17] MEDS ORDERED: THIAMINE HCL 200 MG/2 ML VIAL ONE ×2 (05:56→09:30)
[2022-05-17] MEDS ORDERED: QUEtiapine FUMARATE 100 MG TABLET (FP) ONE ×3 (05:56→21:37)
[2022-05-17] MEDS: QUEtiapine FUMARATE 100 MG TABLET (FP) PO SCH ×4 (06:22→22:32)
[2022-05-17 09:29] LABS: PHOSPHOROUS 4.3 mg/dL (2.5-4.9)
[2022-05-17] MEDS ORDERED: ENOXAPARIN NA (PORCINE) 40 MG/0.4 ML DISP.SYRIN SQ ONE (09:30)
[2022-05-17] MEDS ORDERED: CEFTRIAXONE 1 GM/50 ML BAG ONE (09:31)
[2022-05-17] MEDS: ENOXAPARIN NA (PORCINE) 40 MG/0.4 ML DISP.SYRIN SQ SCH (09:38)
[2022-05-17] MEDS: THIAMINE HCL 200 MG/2 ML VIAL IVPB SCH (09:38)
[2022-05-17] MEDS: CEFTRIAXONE 1 GM in DEXTROSE 5%-WATER - 50 ML IVPB SCH (09:57)
[2022-05-17] MEDS ORDERED: FOLIC ACID 1 MG TABLET (FP) ONE (10:03)
[2022-05-17] MEDS: FOLIC ACID 1 MG TABLET (FP) PO SCH (10:04)
[2022-05-17 10:23] LABS: BASO % 0.5 % (0-2.0); EOS % 2.9 % (0-4.5); HEMATOCRIT 36.8 % (32.4-45.2); HEMOGLOBIN 12.5 GM/dL (10.7-15.3); LYMPH % 22.2 % (8-40); MCH 38.1 pg (25.7-33.7); MCHC 33.9 g/dl (32.0-36.0); MEAN CELL VOLUME 112.4 fl (80-96); MEAN PLT VOLUME 9.1 fl (7.5-11.1); MONO % 9.4 % (3.8-10.2); PLATELET COUNT 166 10^3/uL (134-434); RBC 3.27 M/mm3 (3.60-5.2); RDW 16.9 % (11.6-15.6); WHITE BLOOD COUNT 5.6 K/mm3 (4.0-10.0)
[2022-05-17 10:41] LABS: ALBUMIN 3.4 g/dl (3.4-5.0); BLOOD UREA NITROGEN 8.5 mg/dL (7-18); CALCIUM 8.9 mg/dL (8.5-10.1); MAGNESIUM 2.1 mg/dL (1.8-2.4)
[2022-05-17 10:43] LABS: PHOSPHOROUS 3.7 mg/dL (2.5-4.9)
[2022-05-17 10:44] LABS: CREATININE 0.7 mg/dL (0.55-1.3)
[2022-05-17 10:45] LABS: BILIRUBIN,TOTAL 0.7 mg/dL (0.2-1); TOT PROT 6.5 g/dl (6.4-8.2)
[2022-05-17] MEDS ORDERED: KCL 10 MEQ IVPB 10 MEQ/100 ML INFUS.BAG IVPB SCH (13:00)
[2022-05-17] MEDS ORDERED: IBUPROFEN 800 MG/8 ML IJ IVPB ONE (14:04)
[2022-05-17] MEDS ORDERED: KCL 10 MEQ IVPB 10 MEQ/100 ML INFUS.BAG IVPB ONE (14:33)
[2022-05-17] MEDS ORDERED: LORazepam 1 MG TABLET ONE ×3 (17:53→21:37)
[2022-05-17] MEDS: LORazepam 1 MG TABLET PO SCH ×2 (17:55→22:32)
[2022-05-17] MEDS: LACTATED RINGERS SOLUTION 1,000 ML/1,000 ML INFUS.BAG IV SCH (18:59)
[2022-05-17] MEDS: LORazepam 1 MG TABLET PO PRN (20:37)
[2022-05-17] MEDS ORDERED: AMITRIPTYLINE HCL 50 MG TABLET PO SCH ×2 (22:00)
[2022-05-17] MEDS: traZODone HCL 50 MG TABLET (FP) PO SCH (22:31)
[2022-05-18] MEDS: QUEtiapine FUMARATE 100 MG TABLET (FP) PO SCH ×4 (05:40→23:13)
[2022-05-18] MEDS: LORazepam 1 MG TABLET PO SCH ×4 (05:45→23:41)
[2022-05-18] MEDS ORDERED: QUEtiapine FUMARATE 100 MG TABLET (FP) ONE ×2 (06:53→15:05)
[2022-05-18] MEDS ORDERED: LORazepam 1 MG TABLET ONE ×2 (06:54→10:41)
[2022-05-18 08:18] LABS: HEMATOCRIT 35.1 % (32.4-45.2); MCH 38.5 pg (25.7-33.7); MCHC 34.1 g/dl (32.0-36.0); MEAN CELL VOLUME 113.1 fl (80-96); MEAN PLT VOLUME 9.6 fl (7.5-11.1); PLATELET COUNT 170 10^3/uL (134-434); RBC 3.11 M/mm3 (3.60-5.2); WHITE BLOOD COUNT 5.1 K/mm3 (4.0-10.0)
[2022-05-18] MEDS ORDERED: THIAMINE HCL 200 MG/2 ML VIAL ONE (09:12)
[2022-05-18] MEDS ORDERED: ENOXAPARIN NA (PORCINE) 40 MG/0.4 ML DISP.SYRIN SQ ONE (09:13)
[2022-05-18] MEDS ORDERED: FOLIC ACID 1 MG TABLET (FP) ONE (09:13)
[2022-05-18] MEDS ORDERED: CEFTRIAXONE 1 GM/50 ML BAG ONE (09:13)
[2022-05-18] MEDS: CEFTRIAXONE 1 GM in DEXTROSE 5%-WATER - 50 ML IVPB SCH (10:31)
[2022-05-18] MEDS: FOLIC ACID 1 MG TABLET (FP) PO SCH (10:31)
[2022-05-18] MEDS: THIAMINE HCL 200 MG/2 ML VIAL IVPB SCH (10:31)
[2022-05-18] MEDS: ENOXAPARIN NA (PORCINE) 40 MG/0.4 ML DISP.SYRIN SQ SCH (10:31)
[2022-05-18 11:13] LABS: BILIRUBIN,TOTAL 0.5 mg/dL (0.2-1); BLOOD UREA NITROGEN 8.8 mg/dL (7-18); CALCIUM 8.7 mg/dL (8.5-10.1); CREATININE 0.6 mg/dL (0.55-1.3); MAGNESIUM 2.1 mg/dL (1.8-2.4); TOT PROT 6.2 g/dl (6.4-8.2)
[2022-05-18 17:41] VITALS: BMI 30.9
[2022-05-18] MEDS: LORazepam 1 MG TABLET PO PRN (18:49)
[2022-05-18] MEDS ORDERED: LORazepam 2 MG/ML SDV VIAL IVPUSH ONE ×2 (19:53→21:32)
[2022-05-18] MEDS: traZODone HCL 50 MG TABLET (FP) PO SCH (23:12)
[2022-05-18] MEDS: AMITRIPTYLINE HCL PO SCH (23:13)
[2022-05-19] MEDS: LORazepam 1 MG TABLET PO SCH ×4 (05:25→22:01)
[2022-05-19] MEDS: QUEtiapine FUMARATE 100 MG TABLET (FP) PO SCH ×4 (05:27→21:50)
[2022-05-19] MEDS: LACTATED RINGERS SOLUTION 1,000 ML/1,000 ML INFUS.BAG IV SCH (07:33)
[2022-05-19] MEDS ORDERED: cefTRIAXone SODIUM 1 GM VIAL ONE (09:51)
[2022-05-19] MEDS ORDERED: DEXTROSE 5%-WATER - 50 ML IVPB ONE (09:51)
[2022-05-19] MEDS: FOLIC ACID 1 MG TABLET (FP) PO SCH (10:07)
[2022-05-19] MEDS: ENOXAPARIN NA (PORCINE) 40 MG/0.4 ML DISP.SYRIN SQ SCH (10:07)
[2022-05-19] MEDS: CEFTRIAXONE 1 GM in DEXTROSE 5%-WATER - 50 ML IVPB SCH (10:19)
[2022-05-19] MEDS: IBUPROFEN 600 MG TABLET (FP) PO PRN ×2 (10:19→20:28)
[2022-05-19] MEDS: THIAMINE HCL 100 MG TABLET (FP) PO SCH (10:19)
[2022-05-19] MEDS: THIAMINE HCL 200 MG/2 ML VIAL IVPB SCH (10:19)
[2022-05-19] MEDS ORDERED: BUPRENORPHINE/NALOXONE 8 MG/2 MG FILM PACKET SL SCH (10:30)
[2022-05-19] MEDS ORDERED: MINERAL OIL/PET HY-PHL TOPICAL OINTMENT 454 GM JAR TP PRN (10:30)
[2022-05-19] MEDS: BUPRENORPHINE/NALOXONE 8 MG/2 MG FILM PACKET SL SCH ×2 (10:40→21:51)
[2022-05-19] MEDS: traZODone HCL 50 MG TABLET (FP) PO SCH (21:51)
[2022-05-19] MEDS: AMITRIPTYLINE HCL PO SCH (22:59)
[2022-05-20] MEDS ORDERED: LORazepam 0.5 MG TABLET PO PRN
[2022-05-20] MEDS: QUEtiapine FUMARATE 100 MG TABLET (FP) PO SCH ×4 (05:07→21:24)
[2022-05-20] MEDS: LORazepam 0.5 MG TABLET PO SCH ×4 (05:08→22:55)
[2022-05-20] MEDS: ENOXAPARIN NA (PORCINE) 40 MG/0.4 ML DISP.SYRIN SQ SCH (11:08)
[2022-05-20] MEDS: IBUPROFEN 600 MG TABLET (FP) PO PRN ×2 (11:09→21:30)
[2022-05-20] MEDS: THIAMINE HCL 100 MG TABLET (FP) PO SCH (11:09)
[2022-05-20] MEDS: FOLIC ACID 1 MG TABLET (FP) PO SCH (11:09)
[2022-05-20] MEDS: BUPRENORPHINE/NALOXONE 8 MG/2 MG FILM PACKET SL SCH ×2 (11:10→21:24)
[2022-05-20] MEDS: traZODone HCL 50 MG TABLET (FP) PO SCH (21:24)
[2022-05-20] MEDS: AMITRIPTYLINE HCL PO SCH (21:25)
[2022-05-21] MEDS ORDERED: LORazepam 0.5 MG TABLET PO ONE (05:00)
[2022-05-21] MEDS: QUEtiapine FUMARATE 100 MG TABLET (FP) PO SCH ×2 (06:04→14:47)
[2022-05-21 06:39] VITALS: BP 109/85; PULSE 83; TEMP 98.1
[2022-05-21] MEDS: IBUPROFEN 600 MG TABLET (FP) PO PRN (10:23)
[2022-05-21] MEDS: FOLIC ACID 1 MG TABLET (FP) PO SCH (10:23)
[2022-05-21] MEDS: ENOXAPARIN NA (PORCINE) 40 MG/0.4 ML DISP.SYRIN SQ SCH (10:23)
[2022-05-21] MEDS: THIAMINE HCL 100 MG TABLET (FP) PO SCH (10:23)
[2022-05-21] MEDS: BUPRENORPHINE/NALOXONE 8 MG/2 MG FILM PACKET SL SCH (10:23)
[2022-05-21 11:19] LABS: CALCIUM 9.3 mg/dL (8.5-10.1)
[2022-05-21 11:20] LABS: ALBUMIN 3.4 g/dl (3.4-5.0); MAGNESIUM 2.2 mg/dL (1.8-2.4)
[2022-05-21 11:21] LABS: PHOSPHOROUS 4.8 mg/dL (2.5-4.9)
[2022-05-21 11:23] LABS: BILIRUBIN,TOTAL 0.2 mg/dL (0.2-1); CREATININE 0.7 mg/dL (0.55-1.3); TOT PROT 6.8 g/dl (6.4-8.2)
== END 2022-05-21 14:55 | disposition home or self-care (01) | DRG 282 ==
LOC: JER 20:24 → JERBED 23:38 → J5S 05-18 17:16
PROVIDERS: ADMIT Internal Medicine; ATTEND Internal Medicine
DX: K85.20 Alcohol induced acute pancreatitis without necrosis or infection (principal); K21.9 Gastro-esophageal reflux disease without esophagitis; D64.9 Anemia, unspecified; F31.89 Other bipolar disorder; I10 Essential (primary) hypertension; F10.20 Alcohol dependence, uncomplicated; J45.909 Unspecified asthma, uncomplicated; F31.31 Bipolar disorder, current episode depressed, mild; F17.210 Nicotine dependence, cigarettes, uncomplicated; E66.9 Obesity, unspecified; Z68.31 Body mass index [BMI] 31.0-31.9, adult; F43.10 Post-traumatic stress disorder, unspecified; R11.2 Nausea with vomiting, unspecified; N39.0 Urinary tract infection, site not specified; F20.9 Schizophrenia, unspecified
CPT/HCPCS: 36415; 71045-TC-FY; 76705-TC; 80053; 80061; 81003; 82607; 82746; 83690; 83735; 84100; 85025; 85027; 87086; 93005; 93010; 97116-GP; 97162-GP; 99285-25; C9803-CS; U0003; U0005

== ENCOUNTER 2022-05-31 15:50 | Inpatient (IN) | payer OTHER ==
[2022-05-31] MEDS ORDERED: MAGNESIUM CITRATE 300 ML BOTTLE PO PRN (20:08)
[2022-05-31] MEDS ORDERED: ACETAMINOPHEN 325 MG TABLET (FP) PO PRN ×2 (20:08)
[2022-05-31] MEDS ORDERED: MAG HYDROX/AL HYDROX/SIMETH 30 ML UNIT-DOSE CUP PO PRN (20:08)
[2022-05-31] MEDS ORDERED: LOPERAMIDE HCL 2 MG CAPSULE PO PRN (20:08)
[2022-05-31] MEDS ORDERED: DICYCLOMINE HCL 10 MG CAPSULE PO PRN (20:08)
[2022-05-31] MEDS ORDERED: NICOTINE 10 MG CARTRIDGE (INHALER) IH PRN (20:08)
[2022-05-31] MEDS ORDERED: IBUPROFEN 400 MG TABLET (FP) PO PRN (20:08)
[2022-05-31] MEDS ORDERED: BISMUTH SUBSALICYLATE 524 MG/30 ML PO PRN (20:08)
[2022-05-31] MEDS ORDERED: BENZOCAINE/MENTHOL (CHLORASEPTIC ) LOZENGE MM PRN (20:08)
[2022-05-31] MEDS ORDERED: MAGNESIUM HYDROX 2400MG/30ML ORAL SUSPENSION 30 ML CUP PO PRN (20:08)
[2022-05-31] MEDS ORDERED: ONDANSETRON *ODT* 4 MG TABLET SL PRN (20:08)
[2022-05-31] MEDS ORDERED: chlordiazePOXIDE HCL 25 MG CAPSULE PO PRN ×2 (20:13→20:15)
[2022-05-31 20:49] VITALS: BMI 29.2
[2022-05-31] MEDS: hydrOXYzine PAMOATE 25 MG CAPSULE (FP) PO SCH (21:54)
[2022-05-31] MEDS: THIAMINE HCL 100 MG TABLET (FP) PO SCH (21:54)
[2022-05-31] MEDS: MELATONIN 5 MG TABLETS PO SCH (21:54)
[2022-05-31] MEDS: chlordiazePOXIDE HCL 25 MG CAPSULE PO SCH (21:59)
[2022-05-31] MEDS ORDERED: chlordiazePOXIDE HCL 25 MG CAPSULE PO SCH (23:00)
[2022-06-01] MEDS: hydrOXYzine PAMOATE 25 MG CAPSULE (FP) PO SCH ×5 (06:00→22:18)
[2022-06-01] MEDS: chlordiazePOXIDE HCL 25 MG CAPSULE PO SCH ×4 (06:00→22:18)
[2022-06-01] MEDS: METHOCARBAMOL 500 MG TABLET PO PRN ×2 (10:05→17:46)
[2022-06-01] MEDS: PRENATAL VITAMINS W/ FOLIC ACID TABLET (FP) PO SCH (10:05)
[2022-06-01 10:49] LABS: HEMATOCRIT 39.3 % (32.4-45.2); HEMOGLOBIN 13.4 GM/dL (10.7-15.3); MCH 37.3 pg (25.7-33.7); MEAN CELL VOLUME 109.6 fl (80-96); MEAN PLT VOLUME 9.9 fl (7.5-11.1); PLATELET COUNT 233 10^3/uL (134-434); RBC 3.58 M/mm3 (3.60-5.2); RDW 16.3 % (11.6-15.6); WHITE BLOOD COUNT 6.5 K/mm3 (4.0-10.0)
[2022-06-01 11:36] LABS: CALCIUM 9.1 mg/dL (8.5-10.1)
[2022-06-01 11:37] LABS: ALBUMIN 3.7 g/dl (3.4-5.0); BLOOD UREA NITROGEN 3.1 mg/dL (7-18)
[2022-06-01 11:40] LABS: CREATININE 0.7 mg/dL (0.55-1.3)
[2022-06-01 11:41] LABS: BILIRUBIN,TOTAL 0.6 mg/dL (0.2-1); TOT PROT 7.2 g/dl (6.4-8.2)
[2022-06-01] MEDS: AMOXICILLIN 500 MG CAPSULE (FP) PO SCH ×2 (13:26→22:18)
[2022-06-01] MEDS ORDERED: cloNIDine HCL 0.1 MG TABLET PO ONE (15:58)
[2022-06-01] MEDS: IBUPROFEN 600 MG TABLET (FP) PO PRN (17:45)
[2022-06-01 18:31] LABS: HIV INTERPRETATION NEGATIVE (NEGATIVE)
[2022-06-01] MEDS: MELATONIN 5 MG TABLETS PO SCH (22:18)
[2022-06-01] MEDS: THIAMINE HCL 100 MG TABLET (FP) PO SCH (22:18)
[2022-06-02] MEDS: chlordiazePOXIDE HCL 25 MG CAPSULE PO SCH ×6 (06:04→22:12)
[2022-06-02] MEDS: hydrOXYzine PAMOATE 25 MG CAPSULE (FP) PO SCH ×4 (06:05→17:41)
[2022-06-02] MEDS: AMOXICILLIN 500 MG CAPSULE (FP) PO SCH ×3 (06:05→22:12)
[2022-06-02] MEDS: METHOCARBAMOL 500 MG TABLET PO PRN ×2 (06:06→17:44)
[2022-06-02] MEDS: IBUPROFEN 600 MG TABLET (FP) PO PRN (09:18)
[2022-06-02] MEDS: PRENATAL VITAMINS W/ FOLIC ACID TABLET (FP) PO SCH (10:04)
[2022-06-02] MEDS ORDERED: cloNIDine HCL 0.1 MG TABLET PO ONE (10:17)
[2022-06-02] MEDS ORDERED: QUEtiapine FUMARATE 50 MG TABLET PO ONE (10:36)
[2022-06-02] MEDS: QUEtiapine FUMARATE 50 MG TABLET PO SCH (13:01)
[2022-06-02] MEDS ORDERED: BUPRENORPHINE/NALOXONE 8 MG/2 MG FILM PACKET SL SCH (15:15)
[2022-06-02] MEDS ORDERED: amLODIPine BESYLATE 5 MG TABLET (FP) PO ONE (17:00)
[2022-06-02] MEDS ORDERED: diphenhydrAMINE HCL 50 MG CAPSULE PO SCH (17:16)
[2022-06-02] MEDS ORDERED: diphenhydrAMINE HCL 25 MG CAPSULE (FP) PO SCH (17:23)
[2022-06-02] MEDS ORDERED: BUPRENORPHINE/NALOXONE 8 MG/2 MG FILM PACKET SL ONE (18:00)
[2022-06-02] MEDS: THIAMINE HCL 100 MG TABLET (FP) PO SCH (22:11)
[2022-06-02] MEDS: MELATONIN 5 MG TABLETS PO SCH (22:11)
[2022-06-02] MEDS: diphenhydrAMINE HCL 25 MG CAPSULE (FP) PO PRN (22:12)
[2022-06-02] MEDS: QUEtiapine FUMARATE 100 MG TABLET (FP) PO SCH (22:12)
[2022-06-02] MEDS: traZODone HCL 50 MG TABLET (FP) PO SCH (22:12)
[2022-06-02] MEDS: BUPRENORPHINE/NALOXONE 8 MG/2 MG FILM PACKET SL SCH (22:14)
[2022-06-03] MEDS ORDERED: chlordiazePOXIDE HCL 10 MG CAPSULE PO PRN ×2
[2022-06-03] MEDS ORDERED: chlordiazePOXIDE HCL 10 MG CAPSULE PO SCH (05:00)
[2022-06-03] MEDS ORDERED: BUPRENORPHINE/NALOXONE 8 MG/2 MG FILM PACKET SL SCH ×2 (06:00→22:00)
[2022-06-03] MEDS: AMOXICILLIN 500 MG CAPSULE (FP) PO SCH ×3 (06:07→22:06)
[2022-06-03] MEDS: chlordiazePOXIDE HCL 10 MG CAPSULE PO SCH ×4 (06:07→22:06)
[2022-06-03] MEDS: PRENATAL VITAMINS W/ FOLIC ACID TABLET (FP) PO SCH (10:07)
[2022-06-03] MEDS: amLODIPine BESYLATE 5 MG TABLET (FP) PO SCH (10:07)
[2022-06-03] MEDS: QUEtiapine FUMARATE 50 MG TABLET PO SCH ×2 (10:07→13:39)
[2022-06-03] MEDS: BUPRENORPHINE/NALOXONE 8 MG/2 MG FILM PACKET SL SCH ×2 (10:09→22:06)
[2022-06-03] MEDS: METHOCARBAMOL 500 MG TABLET PO PRN (13:39)
[2022-06-03] MEDS: diphenhydrAMINE HCL 25 MG CAPSULE (FP) PO PRN (18:41)
[2022-06-03] MEDS: QUEtiapine FUMARATE 100 MG TABLET (FP) PO SCH (22:06)
[2022-06-03] MEDS: MELATONIN 5 MG TABLETS PO SCH (22:06)
[2022-06-03] MEDS: traZODone HCL 50 MG TABLET (FP) PO SCH (22:06)
[2022-06-03] MEDS: THIAMINE HCL 100 MG TABLET (FP) PO SCH (22:06)
[2022-06-04] MEDS ORDERED: chlordiazePOXIDE HCL 10 MG CAPSULE PO SCH (05:00)
[2022-06-04] MEDS: AMOXICILLIN 500 MG CAPSULE (FP) PO SCH ×3 (06:43→22:08)
[2022-06-04] MEDS: chlordiazePOXIDE HCL 10 MG CAPSULE PO SCH ×2 (06:43→17:51)
[2022-06-04] MEDS: amLODIPine BESYLATE 5 MG TABLET (FP) PO SCH (10:25)
[2022-06-04] MEDS: BUPRENORPHINE/NALOXONE 8 MG/2 MG FILM PACKET SL SCH ×2 (10:25→22:10)
[2022-06-04] MEDS: PRENATAL VITAMINS W/ FOLIC ACID TABLET (FP) PO SCH (10:26)
[2022-06-04] MEDS: METHOCARBAMOL 500 MG TABLET PO PRN ×2 (10:27→17:52)
[2022-06-04] MEDS: QUEtiapine FUMARATE 50 MG TABLET PO SCH ×2 (10:27→13:51)
[2022-06-04] MEDS: diphenhydrAMINE HCL 25 MG CAPSULE (FP) PO PRN ×2 (10:28→22:11)
[2022-06-04] MEDS: QUEtiapine FUMARATE 100 MG TABLET (FP) PO SCH (22:08)
[2022-06-04] MEDS: THIAMINE HCL 100 MG TABLET (FP) PO SCH (22:08)
[2022-06-04] MEDS: traZODone HCL 50 MG TABLET (FP) PO SCH (22:08)
[2022-06-05] MEDS ORDERED: chlordiazePOXIDE HCL 10 MG CAPSULE PO ONE ×2 (05:00)
[2022-06-05] MEDS: AMOXICILLIN 500 MG CAPSULE (FP) PO SCH (06:08)
[2022-06-05 10:35] VITALS: BP 101/72; PULSE 96; RESP 16; TEMP 97.2
[2022-06-05] MEDS: PRENATAL VITAMINS W/ FOLIC ACID TABLET (FP) PO SCH (10:37)
[2022-06-05] MEDS: QUEtiapine FUMARATE 50 MG TABLET PO SCH (10:37)
[2022-06-05] MEDS: BUPRENORPHINE/NALOXONE 8 MG/2 MG FILM PACKET SL SCH (10:38)
[2022-06-05] MEDS: amLODIPine BESYLATE 5 MG TABLET (FP) PO SCH (10:40)
== END 2022-06-05 10:44 | disposition home or self-care (01) | DRG 773 ==
LOC: YASAS 15:50 → Y3N 20:35
PROVIDERS: ADMIT Allergy & Immunology; ATTEND Surgery
PROC: HZ2ZZZZ Detoxification Services for Substance Abuse Treatment (ICD-10-PCS; principal; 2022-05-31)
DX: F10.230 Alcohol dependence with withdrawal, uncomplicated (principal); F10.220 Alcohol dependence with intoxication, uncomplicated; F11.20 Opioid dependence, uncomplicated; F12.20 Cannabis dependence, uncomplicated; F17.210 Nicotine dependence, cigarettes, uncomplicated; F19.24 Other psychoactive substance dependence with psychoactive substance-induced mood disorder; F31.9 Bipolar disorder, unspecified; F41.9 Anxiety disorder, unspecified; F20.9 Schizophrenia, unspecified; F43.10 Post-traumatic stress disorder, unspecified; I10 Essential (primary) hypertension; J02.9 Acute pharyngitis, unspecified; J44.9 Chronic obstructive pulmonary disease, unspecified; J45.20 Mild intermittent asthma, uncomplicated; K21.9 Gastro-esophageal reflux disease without esophagitis; G47.00 Insomnia, unspecified; W18.30XA Fall on same level, unspecified, initial encounter; Y93.89 Activity, other specified; Y92.239 Unspecified place in hospital as the place of occurrence of the external cause; Z88.8 Allergy status to other drugs, medicaments and biological substances; Z86.69 Personal history of other diseases of the nervous system and sense organs; Z87.42 Personal history of other diseases of the female genital tract; Z28.310 Unvaccinated for COVID-19; Z56.0 Unemployment, unspecified
CPT/HCPCS: 36415; 80053; 81025; 85027; 86780; 87389; C9803-CS; J0735; U0003; U0005

== ENCOUNTER 2022-06-05 18:21 | Inpatient (IN) | payer OTHER ==
[2022-06-05 18:37] VITALS: BMI 32.5
[2022-06-05] MEDS ORDERED: ACETAMINOPHEN 1000 MG/100 ML BAG IVPB ONE (19:47)
[2022-06-05 20:25] LABS: BASO % 0.5 % (0-2.0); EOS % 2.9 % (0-4.5); HEMATOCRIT 37.1 % (32.4-45.2); HEMOGLOBIN 12.6 GM/dL (10.7-15.3); LYMPH % 25.5 % (8-40); MCH 36.9 pg (25.7-33.7); MEAN CELL VOLUME 108.5 fl (80-96); MEAN PLT VOLUME 9.6 fl (7.5-11.1); NEUT % 59.1 % (42.8-82.8); PLATELET COUNT 206 10^3/uL (134-434); RBC 3.42 M/mm3 (3.60-5.2); RDW 16.7 % (11.6-15.6); WHITE BLOOD COUNT 6.8 K/mm3 (4.0-10.0)
[2022-06-05 20:54] LABS: CHLORIDE 102 mmol/L (98-107); SODIUM 136 mmol/L (136-145)
[2022-06-05 20:56] LABS: ALBUMIN 3.2 g/dl (3.4-5.0); CALCIUM 9.5 mg/dL (8.5-10.1); CO2 28 mmol/L (21-32); GLUCOSE,RANDOM 79 mg/dL (74-106)
[2022-06-05 20:57] LABS: BLOOD UREA NITROGEN 7.2 mg/dL (7-18)
[2022-06-05 21:00] LABS: SGOT/AST 54 U/L (15-37)
[2022-06-05 21:01] LABS: BILIRUBIN,TOTAL 0.4 mg/dL (0.2-1); TOT PROT 7.1 g/dl (6.4-8.2)
[2022-06-05 21:02] LABS: ALK PHOS 87 U/L (45-117)
[2022-06-05 21:26] LABS: ANION GAP 5 MMOL/L (8-16); SGPT/ALT 25 U/L (13-61)
[2022-06-05 22:04] LABS: ANISOCYTOSIS 2+; MACROCYTOSIS 1+
[2022-06-06 05:19] LABS: COCAINE, UR NEGATIVE (NEGATIVE); METHADONE, UR NEGATIVE (NEGATIVE); OPIATES, URI NEGATIVE (NEGATIVE); PHENCYCLIDINE,URINE NEGATIVE (NEGATIVE); URINE BARBITURATES NEGATIVE (NEGATIVE)
[2022-06-06 05:20] LABS: URINE AMPHETAMINES NEGATIVE (NEGATIVE)
[2022-06-06 05:23] VITALS: BP 116/82; PULSE 90; RESP 17; TEMP 98.4
[2022-06-06 07:07] LABS: URINE BENZODIAZEPINES POSITIVE (NEGATIVE)
[2022-06-06 07:40] LABS: ALBUMIN 3.4 g/dl (3.4-5.0); CALCIUM 9.5 mg/dL (8.5-10.1)
[2022-06-06 07:42] LABS: MAGNESIUM 2.1 mg/dL (1.8-2.4)
[2022-06-06 07:43] LABS: CREATININE 0.6 mg/dL (0.55-1.3); PHOSPHOROUS 4.8 mg/dL (2.5-4.9)
[2022-06-06 07:45] LABS: BILIRUBIN,TOTAL 0.4 mg/dL (0.2-1); TOT PROT 6.6 g/dl (6.4-8.2)
[2022-06-06 08:46] LABS: N-TERMINAL BNP 33.9 pg/ml (5-125)
[2022-06-06] MEDS ORDERED: BUPRENORPHINE/NALOXONE 8 MG/2 MG FILM PACKET SL SCH (10:00)
[2022-06-06] MEDS ORDERED: ENOXAPARIN NA (PORCINE) 40 MG/0.4 ML DISP.SYRIN SQ SCH (10:00)
[2022-06-06] MEDS ORDERED: BUPRENORPHINE/NALOXONE 8 MG/2 MG FILM PACKET ONE (11:28)
== END 2022-06-06 11:35 | disposition home or self-care (01) | DRG 812 ==
LOC: JER 18:21 → JERBED 06-06 02:19
PROVIDERS: ADMIT Hospitalist; ATTEND Internal Medicine
DX: T45.0X1A Poisoning by antiallergic and antiemetic drugs, accidental (unintentional), initial encounter (principal); K21.9 Gastro-esophageal reflux disease without esophagitis; J44.9 Chronic obstructive pulmonary disease, unspecified; I10 Essential (primary) hypertension; F31.9 Bipolar disorder, unspecified; D64.9 Anemia, unspecified; F43.10 Post-traumatic stress disorder, unspecified; F25.0 Schizoaffective disorder, bipolar type; F12.90 Cannabis use, unspecified, uncomplicated; G92.8 Other toxic encephalopathy; R41.82 Altered mental status, unspecified
CPT/HCPCS: 36415; 70450-TC; 80053; 80307; 82550; 82962; 83735; 83880; 84100; 84439; 84443; 84702; 85025; 93005; 93010; 99285-25; C9803-CS; U0003; U0005